=== PATIENT | female | born 1985 | race Caucasian/White ===

== ENCOUNTER 2016-03-16 16:20 | Outpatient (CLI) | payer MEDICAID | END 2016-03-16 16:21 | disposition home or self-care (01) | DX: R10.2 Pelvic and perineal pain (principal) ==

== ENCOUNTER 2016-04-03 11:49 | Outpatient (CLI) | payer MEDICAID ==
[2016-04-03] MEDS ORDERED: IOPAMIDOL-300 100 ML VIAL IVP ONE (13:23)
[2016-04-03] MEDS ORDERED: IOPAMIDOL-300 50 ML VIAL PO ONE (13:23)
== END 2016-04-03 11:50 | disposition home or self-care (01) ==
DX: R10.2 Pelvic and perineal pain (principal)
CPT/HCPCS: 74177; Q9967

== ENCOUNTER 2016-04-18 09:55 | Day surgery (SDC) | payer MEDICAID ==
[2016-04-18] MEDS ORDERED: LACTATED RINGERS 1,000 ML IV ONE ×3 (10:30→13:30)
[2016-04-18] MEDS ORDERED: LIDOCAINE 1%-EPI 1:100000 20 ML MDV SUBQ ONE ×2 (11:08)
[2016-04-18] MEDS ORDERED: MIDAZOLAM 2 MG/2 ML VIAL IVP ONE (11:10)
[2016-04-18] MEDS ORDERED: PROPOFOL 200 MG/20 ML VIAL IVP ONE (11:10)
[2016-04-18] MEDS ORDERED: DEXAMETHASONE 4 MG/ML VIAL IVP ONE (11:10)
[2016-04-18] MEDS ORDERED: ROCURONIUM 50 MG/5 ML VIAL IVP ONE (11:10)
[2016-04-18] MEDS ORDERED: SUCCINYLCHOLINE 200 MG/10 ML VIAL IVP ONE (11:10)
[2016-04-18] MEDS ORDERED: ONDANSETRON 4 MG/2 ML VIAL IVP ONE (11:10)
[2016-04-18] MEDS ORDERED: GLYCOPYRROLATE 1 MG/5 ML VIAL IVP ONE (11:10)
[2016-04-18] MEDS ORDERED: LIDOCAINE-MPF 2% 5 ML VIAL IM ONE (11:10)
[2016-04-18] MEDS ORDERED: NEOSTIGMINE 1 MG/1 ML 10 ML MDV IVP ONE (11:10)
[2016-04-18] MEDS ORDERED: fentaNYL 100 MCG/2 ML VIAL IVP ONE (11:10)
[2016-04-18] MEDS ORDERED: fentaNYL 100 MCG/2 ML VIAL ONE ×2 (11:59→12:00)
[2016-04-18] MEDS ORDERED: HYDROcod/ACETAM 5/325 MG TABLET ONE ×2 (12:35→12:55)
== END 2016-04-18 09:56 | disposition home or self-care (01) ==
PROC: 0WJJ4ZZ Inspection of Pelvic Cavity, Percutaneous Endoscopic Approach (ICD-10-PCS; principal; 2016-04-18 10:45)
DX: R10.2 Pelvic and perineal pain (principal); R06.83 Snoring; J45.990 Exercise induced bronchospasm; K21.9 Gastro-esophageal reflux disease without esophagitis; Z87.891 Personal history of nicotine dependence
CPT/HCPCS: 36415; 49320; 80053; 81025; A9270; J7120

== ENCOUNTER 2016-05-28 13:29 | Emergency (ER) | payer MEDICAID ==
[2016-05-28] MEDS ORDERED: SODIUM CHLORIDE 0.9% 1,000 ML IV ONE ×2 (14:21→14:32)
[2016-05-28] MEDS ORDERED: HALOPERIDOL 5 MG/ML VIAL IVP STA (14:28)
[2016-05-28] MEDS ORDERED: ONDANSETRON 4 MG/2 ML VIAL IVP STA ×2 (14:29→15:42)
[2016-05-28] MEDS ORDERED: HALOPERIDOL 5 MG/ML VIAL ONE (14:31)
[2016-05-28] MEDS ORDERED: ONDANSETRON 4 MG/2 ML VIAL ONE ×2 (14:31→15:44)
[2016-05-28] MEDS ORDERED: MAG HYDROX/AL HYDROX/SIMETH 30 ML UDC PO STA (15:23)
[2016-05-28] MEDS ORDERED: LIDOCAINE VISCOUS 2% 15 ML UDC MM STA (15:23)
[2016-05-28] MEDS ORDERED: LIDOCAINE VISCOUS 2% 15 ML UDC MM ONE (15:44)
[2016-05-28] MEDS ORDERED: MAG HYDROX/AL HYDROX/SIMETH 30 ML UDC ONE (15:44)
== END 2016-05-28 16:12 | disposition home or self-care (01) ==
DX: R10.84 Generalized abdominal pain (principal); R11.2 Nausea with vomiting, unspecified; F12.10 Cannabis abuse, uncomplicated; R03.0 Elevated blood-pressure reading, without diagnosis of hypertension; Z87.891 Personal history of nicotine dependence
CPT/HCPCS: 36415; 80053; 81001; 81025; 83690; 85025; 87086; 96361; 96374; 96375; 96376; 99283; 99284; A9270

== ENCOUNTER 2016-07-20 18:13 | Emergency (ER) | payer MEDICAID ==
[2016-07-20 18:43] LABS: BILIRUBIN,URINE NEGATIVE (NEGATIVE)
[2016-07-20 18:50] LABS: UA CHARGE (STRIP ONLY) YES; UR CULTURE IF IND NOT INDICATED
[2016-07-20 18:51] LABS: HCG UR QUAL NEGATIVE
[2016-07-20] MEDS ORDERED: MORPHINE 2 MG/ML SYRINGE IVP STA ×3 (18:59→22:35)
[2016-07-20] MEDS ORDERED: SODIUM CHLORIDE 0.9% 1,000 ML IV ONE (18:59)
[2016-07-20] MEDS ORDERED: ONDANSETRON 4 MG/2 ML VIAL IVP STA ×2 (18:59→21:48)
--- NOTE | 2016-07-20 19:01 | ED Physician Documentation ---
PD HPI ABD PAIN - Stated complaint Stated Complaint: RT SIDE PX - Chief complaint Chief Complaint: Abd Pain - History obtained from History obtained from: Patient - History of Present Illness Timing - onset: Other (While with a now 1-year-old she had a lot of issues with esophageal spasm. Now for the last 6 months she's had ongoing daily right upper quadrant pain without significant relationship to eating. There is associated nausea but rarely vomiting. She had an exploratory laparoscopy earlier this year without relevant findings. Pain is daily, right upper quadrant radiating slightly to the back. No weight loss. No changes in bowel movements. She is in pain management for abdominal pain but does not take narcotics. Plan for upper endoscopy in the near future, it is been several years.) Review of Systems Ten Systems: 10 systems reviewed and negative Constitutional: denies: Fever, Chills, Fatigue, Weight Loss Nose: reports: Reviewed and negative GI: reports: Abdominal Pain, Nausea. 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 : None HEENT: None Psych: Anxiety, Post traumatic stress disorder Musculoskeletal: Scoliosis Derm: None - Past Surgical History Past Surgical History: Yes Ortho: Shoulder arthroplasty Cardiovascular: Other - Present Medications Home Medications: Ambulatory Orders Medication Instructions Recorded Confirmed Omeprazole 20 mg PO DAILY 01/09/16 07/20/16 - Allergies Allergies/Adverse Reactions: Allergies Allergy/AdvReac Type Severity Reaction Status Date / Time amoxicillin [Amoxicillin] Allergy Severe throat Verified 09/12/15 09:05 swells Penicillins Allergy Severe Hives Verified 09/12/15 09:05 pertussis vaccine,adsorbed Allergy Severe seizures Verified 09/12/15 09:05 [Pertussis Vaccine,Adsorbed] hydromorphone HCl * Allergy Unknown Verified 09/12/15 09:05 [From Dilaudid] ciprofloxacin [From Cipro] AdvReac Intermediate Cramps Verified 09/12/15 09:05 ibuprofen AdvReac Intermediate Cramps Verified 09/12/15 09:05 acetaminophen AdvReac Mild Unknown Verified 09/12/15 09:05 oxycodone HCl * AdvReac Mild Nausea Verified 09/12/15 09:05 [From Percocet] diphtheria, pertussis, AdvReac Unknown Verified 04/18/16 10:27 tetanus vacc meperidine HCl * AdvReac Itching Verified 09/12/15 09:05 [From Demerol] - Social History Does the pt smoke?: No Smoking Status: Former smoker Does the pt drink ETOH?: No Does the pt have substance abuse?: No - Family History Family history: reports: Non contributory - Immunizations Immunizations are current?: Yes - POLST Patient has POLST: No PD ED PE NORMAL - Vitals Vital signs reviewed: Yes - General General: Alert and oriented X 3, No acute distress, Other (tearful) - HEENT HEENT: PERRL, EOMI - Neck Neck: Supple, no meningeal sign, No bony TTP - Cardiac Cardiac: RRR, No murmur - Respiratory Respiratory: No respiratory distress, Clear bilaterally - Abdomen Abdomen: Other (Soft with mild right midabdominal tenderness, it is above McBurney's point but well below the gallbladder. No surgical signs.) - Neuro Neuro: Alert and oriented X 3, Normal speech - Psych Psych: Normal mood, Normal affect Results - Vitals Vitals: Vital Signs - 24 hr 07/20/16 07/20/16 07/20/16 18:19 20:38 22:16 Temperature 37.0 C Heart Rate 87 16 L 65 Respiratory 18 18 18 Rate Blood Pressure 114/75 115/80 113/80 O2 Saturation 98 98 100 Oxygen O2 Source Room air - Labs Labs: Laboratory Tests 07/20/16 07/20/16 07/20/16 18:25 18:25 18:35 WBC 8.9 RBC 4.18 L Hgb 12.4 Hct 36.7 L MCV 87.7 MCH 29.6 MCHC 33.7 RDW 11.9 L Plt Count 327 MPV 8.6 Neut # 5.0 Lymph # 3.0 [place] # 0.6 Eos # 0.2 Baso # 0.1 Absolute Nucleated RBC 0.01 Nucleated RBCs 0.1 Sodium Potassium Chloride Carbon Dioxide Anion Gap BUN Creatinine Estimated GFR (MDRD) Glucose Calcium Total Bilirubin AST ALT Alkaline Phosphatase Total Protein Albumin Globulin Albumin/Globulin Ratio Lipase Urine Color YELLOW Urine Clarity CLEAR Urine pH 6.0 Ur Specific [place] 1.015 1.015 Urine Protein NEGATIVE Urine Glucose (UA) NEGATIVE Urine Ketones NEGATIVE Urine Occult Blood NEGATIVE Urine Nitrite NEGATIVE Urine Bilirubin NEGATIVE Urine Urobilinogen 0.2 (NORMAL) Ur Leukocyte Esterase NEGATIVE Ur Microscopic Review NOT INDICATED Urine Culture Comments NOT INDICATED Urine HCG, Qual NEGATIVE 07/20/16 18:35 WBC RBC Hgb Hct MCV MCH MCHC RDW Plt Count MPV Neut # Lymph # [place] # Eos # Baso # Absolute Nucleated RBC Nucleated RBCs Sodium 137 Potassium 3.7 Chloride 104 Carbon Dioxide 25 Anion Gap 8.0 BUN 12 Creatinine 0.8 Estimated GFR (MDRD) 84 L Glucose 95 Calcium 9.2 Total Bilirubin 0.5 AST 20 ALT 14 Alkaline Phosphatase 48 Total Protein 8.3 H Albumin 4.9 Globulin 3.4 Albumin/Globulin Ratio 1.4 Lipase 24 Urine Color Urine Clarity Urine pH Ur Specific [place] Urine Protein Urine Glucose (UA) Urine Ketones Urine Occult Blood Urine Nitrite Urine Bilirubin Urine Urobilinogen Ur Leukocyte Esterase Ur Microscopic Review Urine Culture Comments Urine HCG, Qual - Rads (name of study) Abd sono Radiology: Prelim report reviewed (Mild steatosis, otherwise grossly neg) PD MEDICAL DECISION MAKING - ED course ED course: Almost chronic new R mid abd pain in pt with prior chronic abd complaints. Exacerbation of same. Given timecourse, low suspicion for acute/surgical pathology. Improved stepwise with meds here. Departure - Departure Disposition: 01 Home, Self Care Clinical Impression: Abdominal pain Vomiting Qualifiers: Vomiting type: unspecified Vomiting Intractability: non-intractable Nausea presence: with nausea Qualified Code(s): R11.2 - Nausea with vomiting, unspecified Condition: Good Record reviewed to determine appropriate education?: Yes Instructions: ED Abdominal Pain Unkn Cause Comments: Call your doctor to arrange a follow up appointment. Make the next available appointment. In the interim return anytime if worse or if new symptoms develop. Discharge Date/Time: 07/20/16 22:59
[2016-07-20] MEDS ORDERED: MORPHINE 2 MG/ML SYRINGE ONE ×3 (19:02→22:44)
[2016-07-20] MEDS ORDERED: ONDANSETRON 4 MG/2 ML VIAL ONE ×2 (19:02→21:50)
[2016-07-20 19:08] LABS: BASOPHILS # (AUTO) 0.1 10^3/uL (0.0-0.1); BASOPHILS % (AUTO) 0.8 %; EOSINOPHILS # (AUTO) 0.2 10^3/uL (0.0-0.7); EOSINOPHILS % (AUTO) 1.7 %; HCT - HEMATOCRIT 36.7 % (37.0-47.0); HGB - HEMOGLOBIN 12.4 g/dL (12.0-16.0); LYMPHOCYTES % (AUTO) 33.8 %; MEAN CORPUSCULAR HEMOGLOBIN 29.6 pg (27.0-31.0); MEAN CORPUSCULAR HGB CONC 33.7 g/dL (32.0-36.0); MEAN CORPUSCULAR VOLUME 87.7 fL (81.0-99.0); MEAN PLATELET VOLUME 8.6 fL (7.9-10.8); MONOCYTES # (AUTO) 0.6 10^3/uL (0.0-1.0); MONOCYTES % (AUTO) 6.9 %; NEUTROPHILS % (AUTO) 56.8 %; NUCLEATED RED BLOOD CELLS AUTO 0.1 /100WBC; RED BLOOD COUNT 4.18 10^6/uL (4.20-5.40); RED CELL DISTRIBUTION WIDTH 11.9 % (12.0-15.0); UNCORRECTED WHITE BLOOD COUNT 8.9 x10^3/uL; WHITE BLOOD COUNT 8.9 x10^3/uL (4.8-10.8)
[2016-07-20 19:19] LABS: ALBUMIN/GLOBULIN RATIO 1.4 (1.0-2.2); BILIRUBIN,TOTAL 0.5 mg/dL (0.2-1.0); CALCIUM 9.2 mg/dL (8.5-10.3); CREATININE 0.8 mg/dL (0.4-1.0); POTASSIUM 3.7 mmol/L (3.5-5.0); TOTAL PROTEIN 8.3 g/dL (6.7-8.2)
[2016-07-20 22:17] VITALS: BP 113/80
[2016-07-20] MEDS ORDERED: HYDROcod/ACET 5/325 Prepack 6 PO STA (22:35)
[2016-07-20] MEDS ORDERED: HYDROcod/ACET 5/325 Prepack 6 PO ONE (22:45)
--- NOTE | 2016-07-20 23:11 | Ultrasound Preliminary Report ---
Exam: US Abdomen Limited IMPRESSION: 1. No cholelithiasis, cholecystitis, or biliary dilation. 2. Mild hepatic steatosis. 3. Appendix is not visualized. No secondary evidence of appendicitis. Likelihood of appendicitis is f elt to be low. [facility] SITE ID: [id number]
--- NOTE | 2016-07-20 23:14 | Ultrasound Report ---
EXAM: ABDOMEN ULTRASOUND LIMITED, RUQ APPENDIX ULTRASOUND EXAM DATE: 07/20/2016 10:45 PM. CLINICAL HISTORY: Right-sided abdominal pain COMPARISON: CT 04/03/2016 TECHNIQUE: Real-time scanning was performed with static images obtained. FINDINGS: Liver: Mild increased echogenicity. No suspicious focal lesion. Liver measures 14.6 cm in length. Portal Vein: Patent with hepatopetal flow. Gallbladder: No stones, wall thickening, or sonographic Noguera's sign. Biliary System: CBD measures 5.7 mm. No intrahepatic or extrahepatic ductal dilatation. Pancreas: Normal appearing head and body. Other portions are obscured by overlying structures. Right Kidney: Visualized portions of the right kidney are without significant abnormality. Right kid deion measures 10.7 cm in length. Other: No significant sonographic abnormality within the right lower quadrant, over the patient repor valorie area of pain.-[place] is not seen. There is no fluid. No pathologic lymphadenopathy. Patient tolerat ed moderate compression without pain. IMPRESSION: 1. No cholelithiasis, cholecystitis, or biliary dilation. 2. Mild hepatic steatosis. 3. Appendix is not visualized. No secondary evidence of appendicitis. Likelihood of appendicitis is f elt to be low. [facility] Referring Provider Line: [phone] SITE ID: [id number]
== END 2016-07-20 22:59 | disposition home or self-care (01) ==
LOC: ED 18:13
DX: R10.9 Unspecified abdominal pain (principal); R11.2 Nausea with vomiting, unspecified; Z87.891 Personal history of nicotine dependence
CPT/HCPCS: 36415; 76705; 80053; 81001; 81003; 81025; 83690; 85025; 87086; 96374; 96375; 96376; 99284

== ENCOUNTER 2016-11-14 16:22 | Emergency (ER) | payer MEDICAID ==
[2016-11-14 17:22] LABS: BILIRUBIN,URINE NEGATIVE (NEGATIVE); PH,URINE 6.5 PH (5.0-7.5)
[2016-11-14 17:24] LABS: HCG UR QUAL POSITIVE; UA CHARGE (STRIP ONLY) YES; UR CULTURE IF IND NOT INDICATED
[2016-11-14] MEDS: HYDROcod/ACETAM 5/325 MG TABLET PO STA (17:36)
[2016-11-14] MEDS: ONDANSETRON ODT 4 MG TABLET TL STA (17:37)
[2016-11-14] MEDS ORDERED: ONDANSETRON ODT 4 MG TABLET ONE (17:40)
[2016-11-14] MEDS ORDERED: HYDROcod/ACETAM 5/325 MG TABLET ONE (17:40)
[2016-11-14 17:51] LABS: BASOPHILS % (AUTO) 0.6 %; EOSINOPHILS # (AUTO) 0.2 10^3/uL (0.0-0.7); HCT - HEMATOCRIT 34.7 % (37.0-47.0); HGB - HEMOGLOBIN 11.8 g/dL (12.0-16.0); LYMPHOCYTES # (AUTO) 3.1 10^3/uL (1.5-3.5); LYMPHOCYTES % (AUTO) 37.3 %; MEAN CORPUSCULAR HEMOGLOBIN 29.7 pg (27.0-31.0); MEAN CORPUSCULAR VOLUME 87.1 fL (81.0-99.0); MEAN PLATELET VOLUME 8.2 fL (7.9-10.8); MONOCYTES # (AUTO) 0.6 10^3/uL (0.0-1.0); MONOCYTES % (AUTO) 7.7 %; NEUTROPHILS # (AUTO) 4.3 10^3/uL (1.5-6.6); NEUTROPHILS % (AUTO) 52.4 %; RED BLOOD COUNT 3.98 10^6/uL (4.20-5.40); RED CELL DISTRIBUTION WIDTH 12.2 % (12.0-15.0); UNCORRECTED WHITE BLOOD COUNT 8.2 x10^3/uL; WHITE BLOOD COUNT 8.2 x10^3/uL (4.8-10.8)
--- NOTE | 2016-11-14 19:09 | Ultrasound Preliminary Report ---
Exam: US OB First Trimester IMPRESSION: There is an intrauterine gestational sac. It demonstrates an irregular contour. Mean diameter is 0.9 cm. No embryo, yolk sac, or heart tones are seen. Findings are suspicious for demise. Per current guidelines, interval ultrasound in 7-10 days is recommended for confirmation as indicated. [facility] SITE ID: [id number]
--- NOTE | 2016-11-14 19:11 | Ultrasound Report ---
EXAM: FIRST TRIMESTER OBSTETRIC ULTRASOUND (Less than 11 weeks) EXAM DATE: 11/14/2016 06:38 PM. CLINICAL HISTORY: Vaginal bleeding. LMP: Unknown. COMPARISONS: None. TECHNIQUE: Transabdominal and transvaginal ultrasound examination with static image documentation. ASSESSMENT: Gestational Sac: Single intrauterine. Mean gestational sac diameter: 9 mm = 5 weeks 5 days. Irregula r contour. Embryo: Not seen. Cardiac activity: Absent. Yolk sac: Absent. Amniotic fluid: Not accurately assessed at this gestational age. Early placenta: Not visible at this gestational age. Other: No perigestational fluid collection demonstrated. MATERNAL STRUCTURES: Uterus: Anteverted. Unremarkable. Cervix: Closed. Right Ovary/Adnexa: There is a right ovarian cyst. Normal vascularity.. The ovary measures 4.7 x 3.5 x 3.0 cm, volume 26 cc. Left Ovary/Adnexa: Not seen. Free Fluid: None. Other: None. IMPRESSION: There is an intrauterine gestational sac. It demonstrates an irregular contour. Mean diameter is 0.9 cm. No embryo, yolk sac, or heart tones are seen. Findings are suspicious for demise. Per current guidelines, interval ultrasound in 7-10 days is recommended for confirmation as indicated. [facility] Referring Provider Line: [phone] SITE ID: [id number]
[2016-11-14 19:19] VITALS: BP 97/57
--- NOTE | 2016-11-14 19:22 | ED Physician Documentation ---
PD HPI FEMALE - Stated complaint Stated Complaint: FEMALE /BLEEDING - Chief complaint Chief Complaint: Abd Pain - History obtained from History obtained from: Patient - History of Present Illness Timing - onset: How many days ago (2-3 days ago with mild spotting blood, presumed early menses as went off DepoProvera in June (would have been renewal date). Had not had period as yet. Bleeding and cramps increased significantly today, using 2-3 tampons since noon so far. Passing small clots. No tissue.) Timing - duration: Days Timing - details: Gradual onset, Still present (worse the past few hours) Associated symptoms: Pelvic pain, Vaginal bleeding. No: Fever, Back pain, Vaginal discharge Contributing factors: No: control (currently not on any; seeing Dr. 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 Sethi earlier in the year to eval for endometriosis but none found.) Review of Systems Constitutional: denies: Fever, Chills GI: reports: Abdominal Pain, Nausea. denies: Vomiting, Diarrhea : denies: Dysuria, Frequency, Discharge Neurologic: reports: Generalized weakness. 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 : None HEENT: None Psych: Anxiety, Post traumatic stress disorder Musculoskeletal: Scoliosis Derm: None - Past Surgical History Past Surgical History: Yes Ortho: Shoulder arthroplasty Cardiovascular: Other - Present Medications Home Medications: Ambulatory Orders Medication Instructions Recorded Confirmed HYDROcod/ACETAM 5/325 [[place] 5/325] 1 tab PO Q6H PRN #15 tablet 11/14/16 Ondansetron Odt [Zofran] 4 mg TL Q6H PRN #15 tablet 11/14/16 - Allergies Allergies/Adverse Reactions: Allergies Allergy/AdvReac Type Severity Reaction Status Date / Time amoxicillin [Amoxicillin] Allergy Severe throat Verified 09/12/15 09:05 swells Penicillins Allergy Severe Hives Verified 09/12/15 09:05 pertussis vaccine,adsorbed Allergy Severe seizures Verified 09/12/15 09:05 [Pertussis Vaccine,Adsorbed] hydromorphone HCl * Allergy Unknown Verified 09/12/15 09:05 [From Dilaudid] ciprofloxacin [From Cipro] AdvReac Intermediate Cramps Verified 09/12/15 09:05 ibuprofen AdvReac Intermediate Cramps Verified 09/12/15 09:05 acetaminophen AdvReac Mild Unknown Verified 09/12/15 09:05 oxycodone HCl * AdvReac Mild Nausea Verified 09/12/15 09:05 [From Percocet] diphtheria, pertussis, AdvReac Unknown Verified 04/18/16 10:27 tetanus vacc meperidine HCl * AdvReac Itching Verified 09/12/15 09:05 [From Demerol] - Social History Does the pt smoke?: No Smoking Status: Never smoker Does the pt drink ETOH?: No Does the pt have substance abuse?: No - Immunizations Immunizations are current?: Yes - POLST Patient has POLST: No PD ED PE NORMAL - Vitals Vital signs reviewed: Yes - General General: Alert and oriented X 3, Well developed/nourished, Other (appears uncomfortable) - Neck Neck: Supple, no meningeal sign, No adenopathy - Cardiac Cardiac: RRR, No murmur - Respiratory Respiratory: Clear bilaterally - Abdomen Abdomen: Normal bowel sounds, Soft, Non distended, No organomegaly, Other (some suprapubic tenderness) - Female Female : Deferred - Back Back: No CVA TTP - Derm Derm: Normal color, Warm and dry - Neuro Neuro: Alert and oriented X 3, No motor deficit, Normal speech Results - Vitals Vitals: Oxygen O2 Source Room air - Labs Labs: Laboratory Tests 11/14/16 11/14/16 11/14/16 16:50 17:46 17:46 WBC 8.2 RBC 3.98 L Hgb 11.8 L Hct 34.7 L MCV 87.1 MCH 29.7 MCHC 34.0 RDW 12.2 Plt Count 305 MPV 8.2 Neut # 4.3 Lymph # 3.1 [place] # 0.6 Eos # 0.2 Baso # 0.0 Absolute Nucleated RBC 0.00 Nucleated RBC % 0.0 HCG, Quant 11479.00 Urine Color YELLOW Urine Clarity CLEAR Urine pH 6.5 Ur Specific [place] <=1.005 Urine Protein NEGATIVE Urine Glucose (UA) NEGATIVE Urine Ketones NEGATIVE Urine Occult Blood NEGATIVE Urine Nitrite NEGATIVE Urine Bilirubin NEGATIVE Urine Urobilinogen 0.2 (NORMAL) Ur Leukocyte Esterase NEGATIVE Ur Microscopic Review NOT INDICATED Urine Culture Comments NOT INDICATED Urine HCG, Qual POSITIVE - Rads (name of study) OB U/S Radiology: Prelim report reviewed (IUP found with GS size c/w 5.5 weeks. No pelvic free fluid. Ovaries okay. ) PD MEDICAL DECISION MAKING - ED course Complexity details: considered differential (threatened miscarriage with IUP noted at 5.5 weeks. Quant is appropriate range for dates. Will need to get repeat quant in 2-[address] Arvizu.), d/w patient, d/w image consultant (Dr. Sethi, who asks patient to be seen in office in 2 days. ) Departure - Departure Disposition: 01 Home, Self Care Clinical Impression: Vaginal bleeding before 22 weeks gestation, Threatened miscarriage in early Condition: Stable Record reviewed to determine appropriate education?: Yes Instructions: ED Miscarriage Poss Follow-Up: Rose Sethi, [Provider Admit Priv/Credential] - Prescriptions: HYDROcod/ACETAM 5/325 [[place] 5/325] 1 tab PO Q6H PRN #15 tablet PRN Reason: Pain Ondansetron Odt [Zofran] 4 mg TL Q6H PRN #15 tablet PRN Reason: Nausea / Vomiting Comments: Drink lots of fluids. Tylenol if needed for pains. Add hydrocodone as needed for pains and cramps. Ondansetron for nausea. Follow-up with Dr. Downs's office on Saturday. She said she will be in the office on Saturday but 1 of her partners will see you. They will want to repeat the ultrasound or possibly the blood test to see how you are doing. Return sooner if significant bleeding persists, fever, lightheaded, other concerns. Discharge Date/Time: 11/14/16 19:36
== END 2016-11-14 19:36 | disposition home or self-care (01) ==
LOC: ED 16:22
DX: O20.0 Threatened abortion (principal); Z3A.22 22 weeks gestation of pregnancy
CPT/HCPCS: 36415; 76801; 76817; 81001; 81003; 81025; 84702; 85025; 87086; 99283; 99284

== ENCOUNTER 2016-11-21 13:04 | Outpatient (CLI) | payer MEDICAID | END 2016-11-21 13:05 | disposition critical access hospital (66) | LOC: EMS 13:04 | PROVIDERS: ATTEND Surgery | DX: R10.9 Unspecified abdominal pain (principal); R11.2 Nausea with vomiting, unspecified | CPT/HCPCS: A0425; A0429 ==

== ENCOUNTER 2016-11-21 13:24 | Emergency (ER) | payer MEDICAID ==
[2016-11-21] MEDS ORDERED: SODIUM CHLORIDE 0.9% 1,000 ML IV ONE (13:59)
[2016-11-21] MEDS ORDERED: ONDANSETRON 4 MG/2 ML VIAL IVP STA (13:59)
--- NOTE | 2016-11-21 14:03 | ED Physician Documentation ---
PD HPI ABD PAIN - Stated complaint Stated Complaint: ABD PX - Chief complaint Chief Complaint: Abd Pain - History obtained from History obtained from: Patient - History of Present Illness Timing - onset: Enter time (0800), Today Timing - duration: Hours Timing - details: Abrupt onset, Still present Quality: Sharp, Pain Location: Epigastric, LUQ Improved by: Laying still Worsened by: Moving, Position, Palpation Associated symptoms: Nausea, Vomiting Similar symptoms before: Diagnosis (hypertemisis gravidarium/cannabis and gastritis.) Recently seen: Emergency Dept - Additional information Additional information: 31-year-old female came into the emergency department with Pelvic cramping and vaginal bleeding was found to be . She is proximal in 5-1/2 weeks and has now developed acute vomiting. This morning she woke at about 8 :00 with pain in the epigastrium. She has had this previously with gastritis. She has also had issues with hyperemesis gravidarum and with hyperemesis related to cannabis use. She does indicate that she continues to use cannabis and she has been in the bathtub today as well. She indicates that she was not told previously that cannabis was an issue. I suspect she has not heard this as I believe I have had this conversation with her. Review of Systems Constitutional: denies: Fever Eyes: denies: Decreased vision Ears: denies: Ear pain Nose: denies: Congestion Throat: denies: Sore throat Cardiac: denies: Chest pain / pressure, Palpitations Respiratory: denies: Dyspnea, Cough GI: reports: Abdominal Pain, Nausea, Vomiting : denies: Dysuria, Frequency Skin: denies: Rash Musculoskeletal: denies: Neck pain, Back pain, Extremity pain Neurologic: denies: Generalized weakness, Focal weakness PD PAST MEDICAL HISTORY - Past Medical History Past Medical History: Yes Cardiovascular: Murmur Respiratory: Asthma Neuro: None Endocrine/Autoimmune: None GI: Hemorrhoids, Other 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 : None HEENT: None Psych: Anxiety, Post traumatic stress disorder Musculoskeletal: Scoliosis Derm: None - Past Surgical History Past Surgical History: Yes Ortho: Shoulder arthroplasty Cardiovascular: Other - Present Medications Home Medications: Ambulatory Orders Medication Instructions Recorded Confirmed HYDROcod/ACETAM 5/325 [[place] 5/325] 1 tab PO Q6H PRN #15 tablet 11/14/16 Ondansetron Odt [Zofran] 4 mg TL Q6H PRN #15 tablet 11/14/16 11/21/16 - Allergies Allergies/Adverse Reactions: Allergies Allergy/AdvReac Type Severity Reaction Status Date / Time amoxicillin [Amoxicillin] Allergy Severe throat Verified 09/12/15 09:05 swells Penicillins Allergy Severe Hives Verified 09/12/15 09:05 pertussis vaccine,adsorbed Allergy Severe seizures Verified 09/12/15 09:05 [Pertussis Vaccine,Adsorbed] hydromorphone HCl * Allergy Unknown Verified 09/12/15 09:05 [From Dilaudid] ciprofloxacin [From Cipro] AdvReac Intermediate Cramps Verified 09/12/15 09:05 ibuprofen AdvReac Intermediate Cramps Verified 09/12/15 09:05 acetaminophen AdvReac Mild Unknown Verified 09/12/15 09:05 oxycodone HCl * AdvReac Mild Nausea Verified 09/12/15 09:05 [From Percocet] diphtheria, pertussis, AdvReac Unknown Verified 04/18/16 10:27 tetanus vacc meperidine HCl * AdvReac Itching Verified 09/12/15 09:05 [From Demerol] - Social History Does the pt smoke?: No Smoking Status: Never smoker Does the pt drink ETOH?: No Does the pt have substance abuse?: No - Immunizations Immunizations are current?: Yes - POLST Patient has POLST: No PD ED PE NORMAL - Vitals Vital signs reviewed: Yes - General General: Alert and oriented X 3, Well developed/nourished, Other (Pale appearing 31-year-old female who is moaning in pain and rocking back and forth in her bed. She is mostly in the position and reluctant to straighten out for examination.) - HEENT HEENT: Atraumatic, PERRL - Neck Neck: Supple, no meningeal sign - Cardiac Cardiac: RRR, No murmur - Respiratory Respiratory: No respiratory distress, Clear bilaterally - Abdomen Abdomen: Soft, Other (Epigastric tenderness is specific and reproducible.) - Back Back: No CVA TTP, No spinal TTP - Derm Derm: Normal color, Warm and dry - Extremities Extremities: No deformity, No edema - Neuro Neuro: No motor deficit, No sensory deficit - Psych Psych: Normal mood, Normal affect Results - Vitals Vitals: Vital Signs - 24 hr 11/21/16 11/21/16 11/21/16 13:25 14:34 16:15 Temperature 36.1 C L 36.9 C 35.7 C L Heart Rate 70 86 71 Respiratory 18 18 18 Rate Blood Pressure 125/75 106/55 L 121/73 O2 Saturation 97 100 97 Oxygen O2 Source Room air - Labs Labs: Laboratory Tests 11/21/16 11/21/16 11/21/16 13:59 14:15 16:20 WBC 10.0 RBC 3.80 L Hgb 11.3 L Hct 32.6 L MCV 86.0 MCH 29.7 MCHC 34.6 RDW 12.4 Plt Count 302 MPV 8.2 Neut # 8.8 H Lymph # 0.9 L [place] # 0.2 Eos # 0.0 Baso # 0.1 Absolute Nucleated RBC 0.00 Nucleated RBC % 0.0 Sodium 139 Potassium 3.3 L Chloride 104 Carbon Dioxide 20 L Anion Gap 15.0 H BUN 9 Creatinine 0.8 Estimated GFR (MDRD) 83 L Glucose 151 H Calcium 9.6 Total Bilirubin 0.6 AST 20 ALT 15 Alkaline Phosphatase 43 Total Protein 7.7 Albumin 4.8 Globulin 2.9 Albumin/Globulin Ratio 1.7 Lipase 25 Urine Color YELLOW Urine Clarity CLEAR Urine pH 6.5 Ur Specific [place] 1.025 Urine Protein TRACE Urine Glucose (UA) NEGATIVE Urine Ketones 40 H Urine Occult Blood SMALL H Urine Nitrite NEGATIVE Urine Bilirubin NEGATIVE Urine Urobilinogen 0.2 (NORMAL) Ur Leukocyte Esterase NEGATIVE Urine RBC 6-10 H Urine WBC 0-3 Ur Squamous Epith Cells MOD Squamous H Urine Bacteria Few Urine Mucus Moderate Strands Ur Microscopic Review INDICATED Urine Culture Comments NOT INDICATED Procedures - IVC sono (time) 1350 Bedside IVC sono: IVC measures (cm) (1.42), IVC collapsed c insp (cm) (complete) , Dehydration (mild) PD MEDICAL DECISION MAKING - ED course Complexity details: reviewed old records, reviewed results, re-evaluated patient , considered differential, d/w patient ED course: 31-year-old female with a 6 hour history of abdominal pain and vomiting appears uncomfortable on arrival to the emergency department she appears pale is panting and moaning. She is nauseous and vomiting. On interrogation of the inferior vena cava the patient is mildly dehydrated consistent with 6 hours of vomiting. She is definitely nauseous and I suspect cannabis hyperemesis as well as the effectiveness as she has had these symptoms previously with . She indicates she continues to use cannabis. Here in the emergency department an IV is begun she is given intravenous Zofran and saline and a GI cocktail was administered. She does get relief with the GI cocktail. She has further nausea and she is given doxalamine and pyridoxine. Departure - Departure Disposition: 01 Home, Self Care Clinical Impression: Hyperemesis gravidarum Gastritis Qualifiers: Gastritis type: unspecified gastritis Chronicity: acute Gastritis bleeding: without bleeding Qualified Code(s): K29.00 - Acute gastritis without bleeding Condition: Stable Instructions: ED Preg Morning Sickness, ED PUD Vs Gastritis Follow-Up: Myaela Gallardo ARNP [Primary Care Provider] -
[2016-11-21] MEDS ORDERED: MAG HYDROX/AL HYDROX/SIMETH 30 ML UDC PO STA (14:08)
[2016-11-21] MEDS ORDERED: LIDOCAINE VISCOUS 2% 15 ML UDC MM STA (14:08)
[2016-11-21 14:17] LABS: BASOPHILS # (AUTO) 0.1 10^3/uL (0.0-0.1); BASOPHILS % (AUTO) 0.5 %; EOSINOPHILS % (AUTO) 0.2 %; HCT - HEMATOCRIT 32.6 % (37.0-47.0); HGB - HEMOGLOBIN 11.3 g/dL (12.0-16.0); LYMPHOCYTES # (AUTO) 0.9 10^3/uL (1.5-3.5); LYMPHOCYTES % (AUTO) 8.9 %; MEAN CORPUSCULAR HEMOGLOBIN 29.7 pg (27.0-31.0); MEAN CORPUSCULAR HGB CONC 34.6 g/dL (32.0-36.0); MEAN PLATELET VOLUME 8.2 fL (7.9-10.8); MONOCYTES # (AUTO) 0.2 10^3/uL (0.0-1.0); MONOCYTES % (AUTO) 2.4 %; NEUTROPHILS # (AUTO) 8.8 10^3/uL (1.5-6.6); RED CELL DISTRIBUTION WIDTH 12.4 % (12.0-15.0)
[2016-11-21] MEDS ORDERED: ONDANSETRON 4 MG/2 ML VIAL ONE (14:29)
[2016-11-21 14:32] LABS: ALBUMIN/GLOBULIN RATIO 1.7 (1.0-2.2); BILIRUBIN,TOTAL 0.6 mg/dL (0.2-1.0); CALCIUM 9.6 mg/dL (8.5-10.3); CREATININE 0.8 mg/dL (0.4-1.0); POTASSIUM 3.3 mmol/L (3.5-5.0); TOTAL PROTEIN 7.7 g/dL (6.7-8.2)
[2016-11-21] MEDS ORDERED: LIDOCAINE VISCOUS 2% 15 ML UDC MM ONE (14:39)
[2016-11-21] MEDS ORDERED: MAG HYDROX/AL HYDROX/SIMETH 30 ML UDC ONE (14:39)
[2016-11-21] MEDS ORDERED: DOXYLAMINE 25 MG TABLET PO STA (16:10)
[2016-11-21] MEDS ORDERED: PYRIDOXINE 100 MG TABLET PO STA (16:11)
[2016-11-21 16:30] LABS: BILIRUBIN,URINE NEGATIVE (NEGATIVE); PH,URINE 6.5 PH (5.0-7.5)
[2016-11-21 16:31] LABS: UA w/ MICROSCOPIC CHARGE YES
[2016-11-21 16:43] LABS: UR CULTURE IF IND NOT INDICATED; WBC,URINE 0-3 /HPF (0-5)
[2016-11-21] MEDS ORDERED: PROMETHAZINE INJ 25 MG in SODIUM CHLORIDE 0.9% 50 ML IV STA (16:52)
[2016-11-21] MEDS ORDERED: PROMETHAZINE 25 MG/1 ML VIAL ONE (17:11)
[2016-11-21 18:56] VITALS: BP 106/55
== END 2016-11-21 19:01 | disposition home or self-care (01) ==
LOC: EDUNIT# → ED 13:24
DX: O21.0 Mild hyperemesis gravidarum (principal); O99.611 Diseases of the digestive system complicating pregnancy, first trimester; K29.00 Acute gastritis without bleeding; O99.511 Diseases of the respiratory system complicating pregnancy, first trimester; J45.909 Unspecified asthma, uncomplicated; Z3A.01 Less than 8 weeks gestation of pregnancy
CPT/HCPCS: 36415; 80053; 81001; 83690; 85025; 96361; 96365; 96375; 99284; A9270; J7040; 81003; 87086

== ENCOUNTER 2016-11-24 21:08 | Outpatient (CLI) | payer MEDICAID | END 2016-11-24 21:09 | disposition critical access hospital (66) | LOC: EMS 21:08 | PROVIDERS: ATTEND Surgery | DX: O26.891 Other specified pregnancy related conditions, first trimester (principal); O21.9 Vomiting of pregnancy, unspecified | CPT/HCPCS: A0425; A0427 ==

== ENCOUNTER 2016-11-24 21:28 | Observation (INO) | payer MEDICAID ==
[2016-11-24] MEDS ORDERED: MORPHINE 2 MG/ML SYRINGE IVP STA (21:32)
[2016-11-24] MEDS ORDERED: METOCLOPRAMIDE 10 MG/2 ML VIAL IVP STA (21:32)
[2016-11-24] MEDS ORDERED: SODIUM CHLORIDE 0.9% 1,000 ML IV ONE (21:33)
--- NOTE | 2016-11-24 21:42 | ED Physician Documentation ---
History of Present Illness - Stated complaint Stated Complaint: N/V/PREG - Chief complaint Chief Complaint: Abd Pain - History obtained from History obtained from: Patient, EMS - History of Present Illness Timing: How many days ago (3) Pain level max: 8 Pain level now: 8 Improved by: zofran, IVF, reglan Worsened by: eating - Additonal information Additional information: Patient is a 31-year-old female who is approximately 7 weeks who states that she has been vomiting for the past 3 days. Seen here earlier in the week for the same and states she did not receive any medications to go home with, so she is vomiting again. States she is cutting back on her marijuana use. States has had similar symptoms several times with prior pregnancies. Has OB appt on Saturday Review of Systems Ten Systems: 10 systems reviewed and negative Constitutional: denies: Fever, Chills Ears: denies: Ear pain Nose: denies: Rhinorrhea / runny nose, Congestion Throat: denies: Sore throat Cardiac: denies: Chest pain / pressure Respiratory: denies: Cough GI: reports: Abdominal Pain, Nausea, Vomiting. denies: Constipation, Diarrhea Skin: denies: Rash Musculoskeletal: denies: Neck pain, Back pain Neurologic: denies: Headache PD PAST MEDICAL HISTORY - Past Medical History Past Medical History: Yes Cardiovascular: Murmur Respiratory: Asthma Neuro: None Endocrine/Autoimmune: None GI: Hemorrhoids, Other [employer]: None : None HEENT: None Psych: Anxiety, Post traumatic stress disorder Musculoskeletal: Scoliosis Derm: None - Past Surgical History Past Surgical History: Yes Ortho: Shoulder arthroplasty Cardiovascular: Other - Present Medications Home Medications: Ambulatory Orders Medication Instructions Recorded Confirmed HYDROcod/ACETAM 5/325 [[place] 5/325] 1 tab PO Q6H PRN #15 tablet 11/14/16 Ondansetron Odt [Zofran] 4 mg TL Q6H PRN #15 tablet 11/14/16 11/21/16 - Allergies Allergies/Adverse Reactions: Allergies Allergy/AdvReac Type Severity Reaction Status Date / Time amoxicillin [Amoxicillin] Allergy Severe throat Verified 09/12/15 09:05 swells Penicillins Allergy Severe Hives Verified 09/12/15 09:05 pertussis vaccine,adsorbed Allergy Severe seizures Verified 09/12/15 09:05 [Pertussis Vaccine,Adsorbed] hydromorphone HCl * Allergy Unknown Verified 09/12/15 09:05 [From Dilaudid] ciprofloxacin [From Cipro] AdvReac Intermediate Cramps Verified 09/12/15 09:05 ibuprofen AdvReac Intermediate Cramps Verified 09/12/15 09:05 acetaminophen AdvReac Mild Unknown Verified 09/12/15 09:05 oxycodone HCl * AdvReac Mild Nausea Verified 09/12/15 09:05 [From Percocet] diphtheria, pertussis, AdvReac Unknown Verified 04/18/16 10:27 tetanus vacc meperidine HCl * AdvReac Itching Verified 09/12/15 09:05 [From Demerol] - Social History Does the pt smoke?: No Smoking Status: Never smoker Does the pt drink ETOH?: No Does the pt have substance abuse?: No - Immunizations Immunizations are current?: Yes - POLST Patient has POLST: No PD ED PE NORMAL - Vitals Vital signs reviewed: Yes - General General: Alert and oriented X 3, No acute distress, Well developed/nourished - HEENT HEENT: PERRL, Moist mucous membranes - Neck Neck: Supple, no meningeal sign - Cardiac Cardiac: RRR, Strong equal pulses - Respiratory Respiratory: No respiratory distress, Clear bilaterally - Abdomen Abdomen: Soft, Non distended, Other (TTP epigastric and LUQ without peritoneal signs. no RUQ tenderness. ) - Back Back: No CVA TTP, No spinal TTP - Derm Derm: Warm and dry, No rash - Extremities Extremities: No edema, No calf tenderness / cord - Neuro Neuro: Alert and oriented X 3 - Psych Psych: Normal mood, Normal affect Results - Vitals Vitals: Vital Signs - 24 hr 11/24/16 11/25/16 21:29 00:01 Temperature 36.9 C Heart Rate 74 78 Respiratory 18 18 Rate Blood Pressure 126/70 123/76 O2 Saturation 100 98 Oxygen O2 Source Room air - Labs Labs: Laboratory Tests 11/24/16 11/24/16 11/24/16 21:54 21:54 23:54 WBC 8.7 RBC 4.21 Hgb 12.5 Hct 36.6 L MCV 86.9 MCH 29.8 MCHC 34.3 RDW 12.1 Plt Count 341 MPV 8.3 Neut # 6.9 H Lymph # 1.2 L [place] # 0.5 Eos # 0.0 Baso # 0.0 Absolute Nucleated RBC 0.00 Nucleated RBC % 0.0 Sodium 135 Potassium 2.7 L Chloride 94 L Carbon Dioxide 27 Anion Gap 14.0 H BUN 17 Creatinine 0.9 Estimated GFR (MDRD) 73 L Glucose 143 H Calcium 9.2 Total Bilirubin 0.7 AST 55 H ALT 64 H Alkaline Phosphatase 44 Total Protein 7.8 Albumin 4.8 Globulin 3.0 Albumin/Globulin Ratio 1.6 Lipase 30 HCG, Quant Urine Color Urine Clarity Urine pH Ur Specific [place] Urine Protein Urine Glucose (UA) Urine Ketones Urine Occult Blood Urine Nitrite Urine Bilirubin Urine Urobilinogen Ur Leukocyte Esterase Ur Microscopic Review Urine Culture Comments Urine Opiates Screen POSITIVE H Ur Oxycodone Screen NEGATIVE Urine Methadone Screen NEGATIVE Ur Propoxyphene Screen NEGATIVE Ur Barbiturates Screen NEGATIVE Ur Tricyclics Screen NEGATIVE Ur Phencyclidine Scrn NEGATIVE Ur Amphetamine Screen NEGATIVE U Methamphetamines Scrn NEGATIVE U Benzodiazepines Scrn NEGATIVE Urine Cocaine Screen NEGATIVE U Cannabinoids Screen POSITIVE H 11/24/16 11/25/16 23:54 00:35 WBC RBC Hgb Hct MCV MCH MCHC RDW Plt Count MPV Neut # Lymph # [place] # Eos # Baso # Absolute Nucleated RBC Nucleated RBC % Sodium Potassium Chloride Carbon Dioxide Anion Gap BUN Creatinine Estimated GFR (MDRD) Glucose Calcium Total Bilirubin AST ALT Alkaline Phosphatase Total Protein Albumin Globulin Albumin/Globulin Ratio Lipase HCG, Quant 2595.00 Urine Color YELLOW Urine Clarity CLEAR Urine pH 7.0 Ur Specific [place] 1.020 Urine Protein TRACE Urine Glucose (UA) NEGATIVE Urine Ketones 15 H Urine Occult Blood NEGATIVE Urine Nitrite NEGATIVE Urine Bilirubin NEGATIVE Urine Urobilinogen 0.2 (NORMAL) Ur Leukocyte Esterase NEGATIVE Ur Microscopic Review NOT INDICATED Urine Culture Comments NOT INDICATED Urine Opiates Screen Ur Oxycodone Screen Urine Methadone Screen Ur Propoxyphene Screen Ur Barbiturates Screen Ur Tricyclics Screen Ur Phencyclidine Scrn Ur Amphetamine Screen U Methamphetamines Scrn U Benzodiazepines Scrn Urine Cocaine Screen U Cannabinoids Screen - Rads (name of study) OB US Radiology: Prelim report reviewed, EMP read contemporaneously, See rad report ( Single intrauterine embryo at EGA 6 weeks 2 days with LACEY 07/19/2017 based on crown-rump length, which is concordant with clinical dates. 2. Assigned dating is LACEY 07/19/2017 based on current US. 3. Embryo shows bradycardia at 62 BPM. Yolk sac is not seen. Sonographic follow-up is recommended. ) PD MEDICAL DECISION MAKING - ED course Complexity details: reviewed old records, reviewed results, re-evaluated patient , considered differential, d/w patient, d/w technical healthcare consultant ED course: Patient is a 31-year-old female who presents to the emergency department with continued vomiting. She is approximately 6-7 weeks . She was given Zofran, Reglan, Phenergan and did improve, but then began vomiting after her ultrasound. Her ultrasound does reveal a single intrauterine embryo with a heartbeat, despite a decreasing quant from her visit a week ago. Discussed the case with Dr. Sethi who will place the patient in observation for hyperemesis. Patient had another 300 mL's of emesis after her ultrasound. Patient was then given Benadryl and Compazine. Patient was also counseled to stop using marijuana as this may be contributing to her recurrent vomiting. Possible cannabinoid-induced hyperemesis. This document was made in part using voice recognition software. While efforts are made to proofread this document, sound alike and grammatical errors may occur. 0015 - D/w Dr. Sethi, recommends repeat quant and repeat US. Call back with results. 0240 - Dr. Sethi called back with results and will place in obs. Departure - Departure Disposition: ED Place in Observation Clinical Impression: Hypokalemia, Hyperemesis gravidarum Gastritis Qualifiers: Gastritis type: unspecified gastritis Chronicity: acute Gastritis bleeding: without bleeding Qualified Code(s): K29.00 - Acute gastritis without bleeding Vomiting Qualifiers: Vomiting type: unspecified Vomiting Intractability: non-intractable Nausea presence: with nausea Qualified Code(s): R11.2 - Nausea with vomiting, unspecified Qualifiers: Weeks of gestation: less than 8 weeks Qualified Code(s): Z3A.01 - Less than 8 weeks gestation of Condition: Stable
[2016-11-24] MEDS ORDERED: MORPHINE 2 MG/ML SYRINGE ONE (21:49)
[2016-11-24] MEDS ORDERED: METOCLOPRAMIDE 10 MG/2 ML VIAL ONE (21:49)
[2016-11-24] MEDS ORDERED: SODIUM CHLORIDE FLUSH 0.9% 10 ML SYRINGE IVP ONE (21:49)
[2016-11-24] MEDS ORDERED: MAGNESIUM SULFATE 2 GRAM 2 GM/50 ML BAG IV STA (21:56)
[2016-11-24] MEDS ORDERED: THIAMINE INJ 100 MG, FOLIC ACID INJ 1 MG in SODIUM CHLORIDE 0.9% 100ML 100 ML IV STA (21:56)
[2016-11-24] MEDS ORDERED: MULTIVITAMIN 10 ML in SODIUM CHLORIDE 0.9% 1,000 ML IV STA (21:56)
[2016-11-24 22:03] LABS: BASOPHILS % (AUTO) 0.4 %; EOSINOPHILS % (AUTO) 0.1 %; HCT - HEMATOCRIT 36.6 % (37.0-47.0); HGB - HEMOGLOBIN 12.5 g/dL (12.0-16.0); LYMPHOCYTES # (AUTO) 1.2 10^3/uL (1.5-3.5); LYMPHOCYTES % (AUTO) 14.1 %; MEAN CORPUSCULAR HEMOGLOBIN 29.8 pg (27.0-31.0); MEAN CORPUSCULAR HGB CONC 34.3 g/dL (32.0-36.0); MEAN CORPUSCULAR VOLUME 86.9 fL (81.0-99.0); MEAN PLATELET VOLUME 8.3 fL (7.9-10.8); MONOCYTES # (AUTO) 0.5 10^3/uL (0.0-1.0); NEUTROPHILS # (AUTO) 6.9 10^3/uL (1.5-6.6); NEUTROPHILS % (AUTO) 79.4 %; RED BLOOD COUNT 4.21 10^6/uL (4.20-5.40); RED CELL DISTRIBUTION WIDTH 12.1 % (12.0-15.0); UNCORRECTED WHITE BLOOD COUNT 8.7 x10^3/uL; WHITE BLOOD COUNT 8.7 x10^3/uL (4.8-10.8)
[2016-11-24] MEDS ORDERED: MAGNESIUM SULFATE 2 GRAM 2 GM/50 ML BAG IV ONE (22:05)
[2016-11-24] MEDS ORDERED: THIAMINE 100 MG/1 ML 2 ML MDV ONE (22:05)
[2016-11-24 22:16] LABS: ALBUMIN/GLOBULIN RATIO 1.6 (1.0-2.2); BILIRUBIN,TOTAL 0.7 mg/dL (0.2-1.0); CALCIUM 9.2 mg/dL (8.5-10.3); CREATININE 0.9 mg/dL (0.4-1.0); POTASSIUM 2.7 mmol/L (3.5-5.0); TOTAL PROTEIN 7.8 g/dL (6.7-8.2)
[2016-11-24] MEDS ORDERED: MAG HYDROX/AL HYDROX/SIMETH 30 ML UDC PO STA (22:43)
[2016-11-24] MEDS ORDERED: MAG HYDROX/AL HYDROX/SIMETH 30 ML UDC ONE (22:58)
[2016-11-24] MEDS ORDERED: ONDANSETRON 4 MG/2 ML VIAL IVP STA (23:47)
[2016-11-24 23:59] LABS: BILIRUBIN,URINE NEGATIVE (NEGATIVE); UA CHARGE (STRIP ONLY) YES; UR CULTURE IF IND NOT INDICATED
[2016-11-25] MEDS ORDERED: ONDANSETRON 4 MG/2 ML VIAL ONE (00:02)
[2016-11-25] MEDS ORDERED: SODIUM CHLORIDE 0.9% 1,000 ML IV ONE (00:18)
[2016-11-25] MEDS ORDERED: PROMETHAZINE INJ 12.5 MG in SODIUM CHLORIDE 0.9% 50 ML IV STA (00:18)
[2016-11-25] MEDS ORDERED: PROMETHAZINE 25 MG/1 ML VIAL ONE (00:29)
[2016-11-25] MEDS ORDERED: PROCHLORPERAZINE 10 MG/2 ML VIAL IVP STA (02:35)
[2016-11-25] MEDS ORDERED: diphenhydrAMINE INJ 50 MG/ML VIAL IVP STA (02:36)
--- NOTE | 2016-11-25 02:42 | Ultrasound Preliminary Report ---
Exam: US OB FIRST TRIMESTER IMPRESSION: 1. Single intrauterine embryo at EGA 6 weeks 2 days with LACEY 07/19/2017 based on crown-rump length, w hich is concordant with clinical dates. 2. Assigned dating is LACEY 07/19/2017 based on current US. 3. Embryo shows bradycardia at 62 BPM. Yolk sac is not seen. Sonographic follow-up is recommended. [facility] SITE ID: [id number]
[2016-11-25] MEDS ORDERED: PROCHLORPERAZINE 10 MG/2 ML VIAL ONE (02:43)
[2016-11-25] MEDS ORDERED: diphenhydrAMINE INJ 50 MG/ML VIAL ONE (02:43)
--- NOTE | 2016-11-25 02:45 | Ultrasound Report ---
EXAM: FIRST TRIMESTER OBSTETRIC ULTRASOUND (Less than 11 weeks) EXAM DATE: 11/25/2016 02:06 AM. CLINICAL HISTORY: , abdominal pain. LMP: Uncertain, possibly 09/21/2016. Beta-HCG 2595. COMPARISONS: 11/14/2016. TECHNIQUE: Transabdominal and transvaginal ultrasound examination with static image documentation. CLINICAL DATES: EGA 9 weeks 2 days with LACEY 06/28/2017 based on LMP. ASSESSMENT: Gestational Sac: Single intrauterine. Mean gestational sac diameter: 6.1 mm = 5 weeks 2 days. Embryo: CRL (crown-rump length) 3.9 mm = 6 weeks 2 days. Cardiac activity: 62 beats per minute. Yolk sac: Not seen. Amniotic fluid: Not accurately assessed at this gestational age. Early placenta: Not visible at this gestational age. Other: No perigestational fluid collection demonstrated. MATERNAL STRUCTURES: Uterus: Anteverted. Unremarkable. Cervix: Closed. Right Ovary/Adnexa: Cyst measuring 3.1 x 1.7 x 3.2 cm. The ovary measures 4.3 x 2.6 x 3.8 cm, volume 22 cc. Left Ovary/Adnexa: Unremarkable. The ovary measures 3.1 x 2.0 x 1.7 cm, volume 5.5 cc. Free Fluid: None. Other: None. IMPRESSION: 1. Single intrauterine embryo at EGA 6 weeks 2 days with LACEY 07/19/2017 based on crown-rump length, w hich is concordant with clinical dates. 2. Assigned dating is LACEY 07/19/2017 based on current US. 3. Embryo shows bradycardia at 62 BPM. Yolk sac is not seen. Sonographic follow-up is recommended. [facility] Referring Provider Line: [phone] SITE ID: [id number]
[2016-11-25] MEDS ORDERED: diphenhydrAMINE 25 MG CAPSULE PO PRN (03:13)
[2016-11-25] MEDS ORDERED: ZOLPIDEM 5 MG TABLET PO PRN (03:13)
[2016-11-25] MEDS ORDERED: POTASSIUM CHLOR 20 MEQ/100 ML 20 MEQ/100 ML BAG IV SCH (04:00)
[2016-11-25] MEDS ORDERED: PROMETHAZINE INJ 25 MG in SODIUM CHLORIDE 0.9% 50 ML IV SCH (04:00)
[2016-11-25] MEDS ORDERED: FAMOTIDINE 20 MG in SODIUM CHLORIDE 0.9% 50 ML IV SCH (04:00)
[2016-11-25] MEDS: LACTATED RINGERS 1,000 ML IV SCH ×4 (04:21→16:10)
[2016-11-25] MEDS: DOCUSATE SODIUM 250 MG CAPSULE PO SCH ×2 (04:21→08:30)
[2016-11-25] MEDS: SODIUM CHLORIDE FLUSH 0.9% 10 ML SYRINGE IVP ONE (04:22)
[2016-11-25] MEDS: ONDANSETRON 4 MG/2 ML VIAL IVP SCH ×4 (04:22→16:07)
[2016-11-25] MEDS ORDERED: POTASSIUM CHLOR 10 MEQ/100 ML 10 MEQ/100 ML BAG IV ONE ×3 (04:27→11:30)
[2016-11-25] MEDS: HYDROcod/ACETAM 10 MG/325 MG TABLET PO SCH ×4 (05:23→16:08)
--- NOTE | 2016-11-25 06:47 | HISTORY & PHYSICAL EXAMINATION ---
DATE OF ADMISSION: 11/25/2016 IDENTIFICATION: This is a 31-year-old 4, para 3-0-0-3, with approximately 6 week intrauterine . HISTORY OF PRESENT ILLNESS: The patient is currently sleeping secondary to Benadryl. Her report was by Dr. Stallings, the ER physician. The patient presents today with continued nausea and vomiting for the last 3 days. The patient has a well-documented history of chronic nausea and vomiting. This nausea and vomiting has been significantly worsened during . The patient has been seeing GI physician at [facility]. Dr. Stallings has tried the patient on multiple antiemetics in the emergency department with no avail. The patient continues to have continued vomiting. She is accompanied today by her , Harry. His phone number is [phone]. PAST MEDICAL HISTORY 1. Chronic nausea secondary to esophageal spasm. 2. Anxiety. 3. PTSD. 4. Sleep disorder. 5. Back muscle spasms. PAST SURGICAL HISTORY 1. Open heart surgery secondary to unknown reason. 2. Removal of sternal wires. 3. Endoscopy. 4. On 04/18/2016 diagnostic laparoscopy for chronic pelvic pain. ALLERGIES 1. AMOXICILLIN. 2. PENICILLIN. 3. IBUPROFEN. 4. DEMEROL. 5. DILAUDID. 6. CIPROFLOXACIN. MEDICATIONS 1. Vicodin. 2. Zofran. SOCIAL HISTORY: She is to Harry and his number again is [phone]. They have 3 children, Aguila, Souleymane, and Scarlet. The patient's pharmacy of choice is [facility] in [place], [place]. She denies any tobacco or alcohol use. She admits to MJ use. PAST OBSTETRICAL HISTORY: Three term spontaneous vaginal deliveries. PAST GYNECOLOGICAL HISTORY: She denies any abnormal Pap smears or sexually transmitted diseases. REVIEW OF SYSTEMS: Negative unless otherwise stated. PAST GYNECOLOGIC HISTORY: She denies any vaginal bleeding or cramping. This is a desired . OBJECTIVE VITAL SIGNS: Temperature 36.9, heart rate 78, respiratory rate 18, blood pressure 126/70 and 123/76. GENERAL: The patient is a well-developed, cachectic female who is currently sleeping. The rest of the physical exam is deferred. LABORATORY DATA: Show on 11/24/2016: White count 8.7, hemoglobin 12.5, hematocrit 36.6, platelets 341. Sodium 135, potassium 2.7, chloride 94, BUN 17, creatinine 0.9, glucose 143, AST 55, ALT 64, albumin is 4.8. Urine drug screen showed that she was positive for opioids, as well as cannabinoids; hCG is 2595. Urinalysis significant only for trace protein and 15 ketones. Ultrasound today on 11/25/2016 reveals a single intrauterine gestation with the crown rump length at 3.9 mm or 6 weeks 2 days. Cardiac activity is 62 beats per minute. Yolk sac is not seen. There is a small right ovarian cyst measuring 3.1 x 1.7 x 3.2 cm. ASSESSMENT 1. A 31-year-old 4 para 3-0-0-3 with a 6 week 2 day intrauterine . 2. Chronic nausea with worsening vomiting. 3. Hypokalemia. PLAN 1. We will admit to observation for continued IV fluid hydration as well as antiemetics. We will recheck potassium in the morning. 2. Continue GI cocktail and pain management. 3. Ultrasound findings as well as hCG concerning for a nonviable . Will continue to watch for signs and symptoms of spontaneous . JOB #: [id number] EXT JOB #:[id number] SONAM
[2016-11-25] MEDS: PROMETHAZINE INJ 25 MG in SODIUM CHLORIDE 0.9% 50 ML IV SCH ×2 (08:28→14:24)
[2016-11-25] MEDS ORDERED: GI COCKTAIL 120 ML BOTTLE PO SCH (09:00)
[2016-11-25] MEDS ORDERED: POTASSIUM BICARB 25 MEQ TABLET PO ONE (12:30)
--- NOTE | 2016-11-25 14:18 | PROVIDER PROGRESS NOTE ---
Subjective - Prog Note Date Prog Note Date: 11/25/16 Prog Note Time: 14:15 - Subjective Pt reports feeling: Improved Subjective: Patient lying in bed, feeling much better. Mom at bedside. Upset other providers have not taken her seriously and sent her away. Would like refill on zofran and GI cocktail. Objective - Vital Signs/Intake & Output Vital Signs: Vital Signs x48h Temp Pulse Resp BP Pulse Ox 11/25/16 11:32 97.9 F 59 L 12 95/50 L 99 11/25/16 08:00 97.7 F 112 H 18 102/59 L 96 Intake & Output: Intake & Output 11/22/16 11/23/16 11/24/16 11/25/16 23:59 23:59 23:59 23:59 Intake Total 3069.667 Balance 3069.667 - Objective General Appearance: positive: No acute distress, Alert Eyes Bilateral: positive: Normal inspection Neurologic/Psychiatric: positive: Oriented x3 - Lab Results Fish Bones: 11/24/16 21:54 11/25/16 10:40 Other Labs: Lab Results x24hrs 11/25/16 Range/Units 10:40 Potassium 2.5 L* (3.5-5.0) mmol/L Assessment/Plan - Problem List (1) related nausea, antepartum Impression: 31 yo with a 6w2d IUP Worrisome for SAB given U/S findings Improved nausea and vomiting Faxed Rx zofran and GI cocktail to [facility] in [place] (2) Hypokalemia Impression: Continued hypokalemia. K taken today prior to potassium replacement. S/p 1 dose K IV and will give another po. Repeat K this PM If K improved, consider D/C home.
[2016-11-25 16:31] VITALS: BP 99/51
[2016-11-25] MEDS ORDERED: POTASSIUM CHLORIDE 20 MEQ TABLET PO SCH (19:00)
[2016-11-25] MEDS ORDERED: FAMOTIDINE 20 MG/50 ML 50 ML IV SCH (21:00)
== END 2016-11-25 19:56 | disposition home or self-care (01) ==
LOC: EDUNIT# → ED 21:28 → OBS 11-25 03:07
PROVIDERS: ADMIT Obstetrics & Gynecology; ATTEND Obstetrics & Gynecology
DX: O21.1 Hyperemesis gravidarum with metabolic disturbance (principal); O36.8310 Maternal care for abnormalities of the fetal heart rate or rhythm, first trimester, not applicable or unspecified; O99.611 Diseases of the digestive system complicating pregnancy, first trimester; K22.4 Dyskinesia of esophagus; O99.341 Other mental disorders complicating pregnancy, first trimester; F41.9 Anxiety disorder, unspecified; F43.10 Post-traumatic stress disorder, unspecified; Z3A.01 Less than 8 weeks gestation of pregnancy
CPT/HCPCS: 36415; 76801; 76830; 80053; 80306; 81003; 83690; 84132; 84702; 85025; 96361; 96365; 96367; 96368; 96375; 96376; 99284; 99285; A9270; G0378; J2270; J3411; J7040; J7120; 81001; 87086; 99283

== ENCOUNTER 2017-01-02 13:01 | Outpatient (CLI) | payer MEDICAID | END 2017-01-02 13:02 | disposition critical access hospital (66) | LOC: EMS 13:01 | PROVIDERS: ATTEND Surgery | DX: R10.9 Unspecified abdominal pain (principal) | CPT/HCPCS: A0425; A0429 ==

== ENCOUNTER 2017-01-02 13:23 | Emergency (ER) | payer MEDICAID ==
--- NOTE | 2017-01-02 13:30 | ED Physician Documentation ---
PD HPI ABD PAIN - Stated complaint Stated Complaint: N/V - Chief complaint Chief Complaint: Abd Pain - History obtained from History obtained from: Patient, EMS - History of Present Illness Timing - onset: Other (31-year-old woman with history of esophageal spasm and recurrent upper abdominal pain with vomiting. Predominantly her issues are when she is but she miscarried a month and a half ago. She has been sick since Saturday, 5 days, she thinks it stress related because her daughter suffered an injury. She complains of upper abdominal pain and vomiting, some loose stools but without overt diarrhea. No fevers.) Review of Systems Ten Systems: 10 systems reviewed and negative Constitutional: denies: Fever, Chills Cardiac: denies: Chest pain / pressure, Palpitations Respiratory: denies: Dyspnea, Cough PD PAST MEDICAL HISTORY - Past Medical History Cardiovascular: Murmur Respiratory: Asthma Neuro: None Endocrine/Autoimmune: None GI: Hemorrhoids, Other REGISTRATION REP: None : None HEENT: None Psych: Anxiety, Post traumatic stress disorder Musculoskeletal: Scoliosis Derm: None - Past Surgical History Past Surgical History: Yes Ortho: Shoulder arthroplasty Cardiovascular: Other - Present Medications Home Medications: Ambulatory Orders Medication Instructions Recorded Confirmed HYDROcod/ACETAM 5/325 [[place] 5/325] 1 tab PO Q6H PRN #15 tablet 11/14/16 Ondansetron Odt [Zofran] 4 mg TL Q6H PRN #15 tablet 11/14/16 01/02/17 Albuterol Sulfate [Proair Hfa 2 puffs ORAL PRN PRN 01/02/17 01/02/17 Inhaler] Ondansetron Odt [Zofran Odt] 4 mg TL Q6H PRN #20 tablet 01/02/17 - Allergies Allergies/Adverse Reactions: Allergies Allergy/AdvReac Type Severity Reaction Status Date / Time amoxicillin [Amoxicillin] Allergy Severe throat Verified 01/02/17 13:30 swells Penicillins Allergy Severe Hives Verified 01/02/17 13:30 pertussis vaccine,adsorbed Allergy Severe seizures Verified 01/02/17 13:30 [Pertussis Vaccine,Adsorbed] hydromorphone HCl * Allergy Unknown Verified 01/02/17 13:30 [From Dilaudid] ciprofloxacin [From Cipro] AdvReac Intermediate Cramps Verified 01/02/17 13:30 ibuprofen AdvReac Intermediate Cramps Verified 01/02/17 13:30 acetaminophen AdvReac Mild Unknown Verified 01/02/17 13:30 oxycodone HCl * AdvReac Mild Nausea Verified 01/02/17 13:30 [From Percocet] diphtheria, pertussis, AdvReac Unknown Verified 01/02/17 13:30 tetanus vacc meperidine HCl * AdvReac Itching Verified 01/02/17 13:30 [From Demerol] - Social History Does the pt smoke?: No Smoking Status: Former smoker Does the pt drink ETOH?: No Does the pt have substance abuse?: No - Immunizations Immunizations are current?: Yes - POLST Patient has POLST: No PD ED PE NORMAL - Vitals Vital signs reviewed: Yes - General General: Alert and oriented X 3, Other (Retching, crying) - HEENT HEENT: PERRL, EOMI - Neck Neck: Supple, no meningeal sign, No bony TTP - Cardiac Cardiac: RRR, No murmur - Respiratory Respiratory: No respiratory distress, Clear bilaterally - Abdomen Abdomen: Normal bowel sounds, Soft, Non tender - Derm Derm: Normal color, Warm and dry - Extremities Extremities: No edema, No calf tenderness / cord - Neuro Neuro: Alert and oriented X 3, Normal speech - Psych Psych: Normal mood, Normal affect Results - Vitals Vitals: Vital Signs - 24 hr 01/02/17 01/02/17 01/02/17 13:26 14:24 14:57 Temperature 36.8 C 36.8 C Heart Rate 75 49 L 58 L Respiratory 18 14 14 Rate Blood Pressure 159/71 H 146/87 H 152/81 H O2 Saturation 100 98 100 01/02/17 16:44 Temperature 36.6 C Heart Rate 78 Respiratory 16 Rate Blood Pressure 137/81 H O2 Saturation 100 Oxygen O2 Source Room air - Labs Labs: Laboratory Tests 01/02/17 14:02 Sodium 134 L Potassium 3.5 Chloride 95 L Carbon Dioxide 23 Anion Gap 16.0 H BUN 24 H Creatinine 0.8 Estimated GFR (MDRD) 83 L Glucose 116 H Calcium 9.8 Total Bilirubin 1.1 H AST 25 ALT 17 Alkaline Phosphatase 50 Total Protein 8.6 H Albumin 5.1 Globulin 3.5 Albumin/Globulin Ratio 1.5 Lipase 29 Serum HCG, Qual NEGATIVE PD MEDICAL DECISION MAKING - ED course ED course: 31-year-old woman with chronic upper abdominal pain and vomiting presents with an exacerbation same. She does have evidence of dehydration here with a high BUN which is atypical for her. She is treated with IV fluids and morphine and Zofran and other antiemetics as per other visits and she improved stepwise. .Remains nontender prior to discharge, passed an oral challenge and requested discharge. Departure - Departure Disposition: 01 Home, Self Care Clinical Impression: Recurrent abdominal pain Vomiting Qualifiers: Vomiting type: unspecified Vomiting Intractability: intractable Nausea presence : with nausea Qualified Code(s): R11.2 - Nausea with vomiting, unspecified Condition: Good Record reviewed to determine appropriate education?: Yes Instructions: ED Nausea Vomiting Prescriptions: Ondansetron Odt [Zofran Odt] 4 mg TL Q6H PRN #20 tablet PRN Reason: Nausea / Vomiting Comments: Call your doctor to arrange a follow-up appointment, make the next available appointment. In the interim, return anytime if worse or if new symptoms develop. Your blood pressure was elevated today on check into the emergency department. This does not mean that you have hypertension, it is a common phenomenon to come to the emergency department and have elevated blood pressure. I recommend that you see your primary care physician within the week to have it rechecked when you are feeling better.
[2017-01-02] MEDS: LACTATED RINGERS 1,000 ML IV STA (13:53)
[2017-01-02] MEDS ORDERED: MORPHINE 10 MG/ML VIAL ONE ×3 (13:54→17:35)
[2017-01-02] MEDS: MORPHINE 10 MG/ML VIAL IVP STA ×3 (13:55→17:33)
[2017-01-02] MEDS: ONDANSETRON 4 MG/2 ML VIAL IVP STA ×2 (13:55→14:55)
[2017-01-02] MEDS ORDERED: MAG HYDROX/AL HYDROX/SIMETH 30 ML UDC ONE ×2 (13:56→17:36)
[2017-01-02] MEDS ORDERED: ONDANSETRON 4 MG/2 ML VIAL ONE ×2 (13:56→14:58)
[2017-01-02] MEDS ORDERED: LIDOCAINE VISCOUS 2% 15 ML UDC MM ONE ×2 (13:58→17:36)
[2017-01-02] MEDS: LIDOCAINE VISCOUS 2% 15 ML UDC MM STA ×2 (13:58→17:34)
[2017-01-02] MEDS: MAG HYDROX/AL HYDROX/SIMETH 30 ML UDC PO STA ×2 (13:58→17:34)
[2017-01-02 14:30] LABS: ALBUMIN/GLOBULIN RATIO 1.5 (1.0-2.2); BILIRUBIN,TOTAL 1.1 mg/dL (0.2-1.0); BUN - BLOOD UREA NITROGEN 24 mg/dL (6-20); CALCIUM 9.8 mg/dL (8.5-10.3); CARBON DIOXIDE - CO2 23 mmol/L (21-32); CHLORIDE 95 mmol/L (101-111); CREATININE 0.8 mg/dL (0.4-1.0); GFR - MDRD 83 (>89); GLUCOSE 116 mg/dL (70-100); LIPASE 29 U/L (22-51); POTASSIUM 3.5 mmol/L (3.5-5.0); SODIUM 134 mmol/L (135-145); TOTAL PROTEIN 8.6 g/dL (6.7-8.2)
[2017-01-02] MEDS ORDERED: PROMETHAZINE 25 MG/1 ML VIAL ONE (16:40)
[2017-01-02] MEDS: PROMETHAZINE INJ 25 MG in SODIUM CHLORIDE 0.9% 50 ML IV STA (16:40)
[2017-01-02 16:45] VITALS: BP 137/81
== END 2017-01-02 18:19 | disposition home or self-care (01) ==
LOC: EDUNIT# → ED 13:23
DX: R10.10 Upper abdominal pain, unspecified (principal); R11.2 Nausea with vomiting, unspecified; R03.0 Elevated blood-pressure reading, without diagnosis of hypertension; E86.0 Dehydration; Z87.891 Personal history of nicotine dependence
CPT/HCPCS: 36415; 80053; 83690; 84703; 96361; 96365; 96375; 96376; 99284

== ENCOUNTER 2017-01-03 17:57 | Emergency (ER) | payer MEDICAID ==
[2017-01-03] MEDS ORDERED: ONDANSETRON 4 MG/2 ML VIAL IVP STA ×2 (18:05→21:26)
[2017-01-03] MEDS ORDERED: MORPHINE 10 MG/ML VIAL IVP STA ×3 (18:05→21:26)
[2017-01-03] MEDS ORDERED: LACTATED RINGERS 1,000 ML IV STA (18:05)
[2017-01-03] MEDS ORDERED: LIDOCAINE TOPICAL 4% 50 ML BOTTLE MM STA (18:08)
[2017-01-03] MEDS ORDERED: MAG HYDROX/AL HYDROX/SIMETH 30 ML UDC PO STA (18:08)
--- NOTE | 2017-01-03 18:11 | ED Physician Documentation ---
PD HPI ABD PAIN - Stated complaint Stated Complaint: VOMITING - Chief complaint Chief Complaint: Abd Pain - History obtained from History obtained from: Patient - History of Present Illness Timing - onset: Other (31-year-old woman with recurrent esophageal spasms. Seen yesterday by me for abdominal pain and vomiting similar to prior. Her BUN was up which is atypical for her. 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 : None HEENT: None Psych: Anxiety, Post traumatic stress disorder Musculoskeletal: Scoliosis Derm: None - Past Surgical History Past Surgical History: Yes Ortho: Shoulder arthroplasty Cardiovascular: Other - Present Medications Home Medications: Ambulatory Orders Medication Instructions Recorded Confirmed HYDROcod/ACETAM 5/325 [[place] 5/325] 1 tab PO Q6H PRN #15 tablet 11/14/16 Ondansetron Odt [Zofran] 4 mg TL Q6H PRN #15 tablet 11/14/16 01/02/17 Albuterol Sulfate [Proair Hfa 2 puffs ORAL PRN PRN 01/02/17 01/02/17 Inhaler] Ondansetron Odt [Zofran Odt] 4 mg TL Q6H PRN #20 tablet 01/02/17 - Allergies Allergies/Adverse Reactions: Allergies Allergy/AdvReac Type Severity Reaction Status Date / Time amoxicillin [Amoxicillin] Allergy Severe throat Verified 01/03/17 18:03 swells Penicillins Allergy Severe Hives Verified 01/03/17 18:03 pertussis vaccine,adsorbed Allergy Severe seizures Verified 01/03/17 18:03 [Pertussis Vaccine,Adsorbed] hydromorphone HCl * Allergy Unknown Verified 01/03/17 18:03 [From Dilaudid] ciprofloxacin [From Cipro] AdvReac Intermediate Cramps Verified 01/03/17 18:03 ibuprofen AdvReac Intermediate Cramps Verified 01/03/17 18:03 acetaminophen AdvReac Mild Unknown Verified 01/03/17 18:03 oxycodone HCl * AdvReac Mild Nausea Verified 01/03/17 18:03 [From Percocet] diphtheria, pertussis, AdvReac Unknown Verified 01/03/17 18:03 tetanus vacc meperidine HCl * AdvReac Itching Verified 01/03/17 18:03 [From Demerol] - Social History Does the pt smoke?: No Smoking Status: Never smoker Does the pt drink ETOH?: No Does the pt have substance abuse?: No - Family History Family history: reports: Non contributory - Immunizations Immunizations are current?: Yes - POLST Patient has POLST: No PD ED PE NORMAL - Vitals Vital signs reviewed: Yes - General General: Alert and oriented X 3, Other (Uncomfortable, retching) - HEENT HEENT: PERRL, EOMI, Pharynx benign - Neck Neck: Supple, no meningeal sign, No bony TTP - Cardiac Cardiac: RRR, No murmur - Respiratory Respiratory: No respiratory distress, Clear bilaterally - Abdomen Abdomen: Soft, Non tender - Back Back: No CVA TTP, No spinal TTP - Derm Derm: Normal color, Warm and dry - Extremities Extremities: No edema, No calf tenderness / cord - Neuro Neuro: Alert and oriented X 3, Normal speech - Psych Psych: Normal mood, Normal affect Results - Vitals Vitals: Vital Signs - 24 hr 01/03/17 01/03/17 01/03/17 18:00 18:06 19:08 Temperature 37 C Heart Rate 77 73 78 Respiratory 20 16 16 Rate Blood Pressure 172/117 H 148/76 H 143/83 H O2 Saturation 100 100 97 01/03/17 01/03/17 20:15 20:25 Temperature Heart Rate 57 L 57 L Respiratory 18 18 Rate Blood Pressure 147/85 H 147/85 H O2 Saturation 99 99 Oxygen O2 Source Room air - Labs Labs: Laboratory Tests 01/03/17 01/03/17 18:25 18:25 WBC 7.8 RBC 4.89 Hgb 14.1 Hct 42.3 MCV 86.6 MCH 28.8 MCHC 33.3 RDW 12.2 Plt Count 437 MPV 8.3 Neut # 6.6 Lymph # 1.0 L [place] # 0.3 Eos # 0.0 Baso # 0.0 Absolute Nucleated RBC 0.00 Nucleated RBC % 0.0 Sodium 137 Potassium 3.5 Chloride 92 L Carbon Dioxide 27 Anion Gap 18.0 H BUN 15 Creatinine 1.0 Estimated GFR (MDRD) 64 L Glucose 124 H Calcium 10.0 Total Bilirubin 1.0 AST 23 ALT 16 Alkaline Phosphatase 49 Total Protein 8.9 H Albumin 5.2 Globulin 3.7 Albumin/Globulin Ratio 1.4 Lipase 24 PD MEDICAL DECISION MAKING - ED course ED course: 31-year-old woman with recurrent upper abdominal pain and vomiting presents with an exacerbation of same. She was seen here yesterday for similar. Labs were repeated and actually better than yesterday. She improved stepwise with medications and requested discharge. She was nontender on repeat examination prior to discharge. Departure - Departure Disposition: Home, Self Care Clinical Impression: Recurrent abdominal pain Vomiting Qualifiers: Vomiting type: unspecified Vomiting Intractability: intractable Nausea presence : with nausea Qualified Code(s): R11.2 - Nausea with vomiting, unspecified Condition: Good Record reviewed to determine appropriate education?: Yes Instructions: ED Abdominal Pain Unkn Cause Comments: Call your doctor to arrange a follow-up appointment, make the next available appointment. In the interim, return anytime if worse or if new symptoms develop. Your blood pressure was elevated today on check into the emergency department. This does not mean that you have hypertension, it is a common phenomenon to come to the emergency department and have elevated blood pressure. I recommend that you see your primary care physician within the week to have it rechecked when you are feeling better.
[2017-01-03] MEDS ORDERED: ONDANSETRON 4 MG/2 ML VIAL ONE ×2 (18:20→21:34)
[2017-01-03] MEDS ORDERED: HYDROmorphone 1 MG/ML SYRINGE ONE (18:20)
[2017-01-03] MEDS ORDERED: MAG HYDROX/AL HYDROX/SIMETH 30 ML UDC ONE (18:20)
[2017-01-03] MEDS ORDERED: MORPHINE 10 MG/ML VIAL ONE ×3 (18:29→21:34)
[2017-01-03 18:41] LABS: BASOPHILS % (AUTO) 0.3 %; HCT - HEMATOCRIT 42.3 % (37.0-47.0); HGB - HEMOGLOBIN 14.1 g/dL (12.0-16.0); LYMPHOCYTES % (AUTO) 12.2 %; MEAN CORPUSCULAR HEMOGLOBIN 28.8 pg (27.0-31.0); MEAN CORPUSCULAR HGB CONC 33.3 g/dL (32.0-36.0); MEAN CORPUSCULAR VOLUME 86.6 fL (81.0-99.0); MEAN PLATELET VOLUME 8.3 fL (7.9-10.8); MONOCYTES # (AUTO) 0.3 10^3/uL (0.0-1.0); MONOCYTES % (AUTO) 3.3 %; NEUTROPHILS # (AUTO) 6.6 10^3/uL (1.5-6.6); NEUTROPHILS % (AUTO) 84.2 %; RED BLOOD COUNT 4.89 10^6/uL (4.20-5.40); RED CELL DISTRIBUTION WIDTH 12.2 % (12.0-15.0); UNCORRECTED WHITE BLOOD COUNT 7.8 x10^3/uL; WHITE BLOOD COUNT 7.8 x10^3/uL (4.8-10.8)
[2017-01-03 18:45] LABS: ALBUMIN/GLOBULIN RATIO 1.4 (1.0-2.2); POTASSIUM 3.5 mmol/L (3.5-5.0); TOTAL PROTEIN 8.9 g/dL (6.7-8.2)
[2017-01-03] MEDS ORDERED: PROMETHAZINE INJ 25 MG in SODIUM CHLORIDE 0.9% 50 ML IV STA (19:41)
[2017-01-03] MEDS ORDERED: PROMETHAZINE 25 MG/1 ML VIAL ONE (19:55)
[2017-01-03] MEDS ORDERED: SODIUM CHLORIDE 0.9% MINIBAG 0 ML IV ONE (19:56)
[2017-01-03 21:46] VITALS: BP 113/67
== END 2017-01-03 21:47 | disposition home or self-care (01) ==
LOC: ED 17:57
DX: R10.9 Unspecified abdominal pain (principal); R11.2 Nausea with vomiting, unspecified; R03.0 Elevated blood-pressure reading, without diagnosis of hypertension; J45.909 Unspecified asthma, uncomplicated
CPT/HCPCS: 36415; 80053; 83690; 85025; 96365; 96375; 96376; 99284; A9270; J7040; J7120

== ENCOUNTER 2017-01-29 18:15 | Emergency (ER) | payer MEDICAID ==
[2017-01-29] MEDS ORDERED: HYDROcod/ACETAM 5/325 MG TABLET PO STA (18:33)
--- NOTE | 2017-01-29 18:35 | ED Physician Documentation ---
PD HPI BACK INJURY - Stated complaint Stated Complaint: FEMALE /BACK PX - History obtained from History obtained from: Patient - History of Present Illness Location: Other (She broke her tailbone a year ago and after that fell again injuring her lower back. She has had back pain ever since that increase during a miscarriage that was thought to be complete on at which time her endometrial stripe in the office was negligible. She has increasing pain of the sacrum and low back that does not radiate and is not associated with weakness, numbness, tingling, fevers, saddle anesthesia. 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 : None HEENT: None Psych: Anxiety, Post traumatic stress disorder Musculoskeletal: Scoliosis Derm: None - Past Surgical History Past Surgical History: Yes Ortho: Shoulder arthroplasty Cardiovascular: Other - Present Medications Home Medications: Ambulatory Orders Medication Instructions Recorded Confirmed HYDROcod/ACETAM 5/325 [[place] 5/325] 1 tab PO Q6H PRN #15 tablet 11/14/16 Ondansetron Odt [Zofran] 4 mg TL Q6H PRN #15 tablet 11/14/16 01/02/17 Albuterol Sulfate [Proair Hfa 2 puffs ORAL PRN PRN 01/02/17 01/02/17 Inhaler] Ondansetron Odt [Zofran Odt] 4 mg TL Q6H PRN #20 tablet 01/02/17 - Allergies Allergies/Adverse Reactions: Allergies Allergy/AdvReac Type Severity Reaction Status Date / Time amoxicillin [Amoxicillin] Allergy Severe throat Verified 01/03/17 18:03 swells Penicillins Allergy Severe Hives Verified 01/03/17 18:03 pertussis vaccine,adsorbed Allergy Severe seizures Verified 01/03/17 18:03 [Pertussis Vaccine,Adsorbed] hydromorphone HCl * Allergy Unknown Verified 01/03/17 18:03 [From Dilaudid] ciprofloxacin [From Cipro] AdvReac Intermediate Cramps Verified 01/03/17 18:03 ibuprofen AdvReac Intermediate Cramps Verified 01/03/17 18:03 acetaminophen AdvReac Mild Unknown Verified 01/03/17 18:03 oxycodone HCl * AdvReac Mild Nausea Verified 01/03/17 18:03 [From Percocet] diphtheria, pertussis, AdvReac Unknown Verified 01/03/17 18:03 tetanus vacc meperidine HCl * AdvReac Itching Verified 01/03/17 18:03 [From Demerol] - Social History Does the pt smoke?: No Smoking Status: Never smoker Does the pt drink ETOH?: No Does the pt have substance abuse?: No - Immunizations Immunizations are current?: Yes - POLST Patient has POLST: No PD ED PE NORMAL - Vitals Vital signs reviewed: Yes - General General: Alert and oriented X 3, No acute distress, Other (Laying on the right side with hip slightly flexed) - Abdomen Abdomen: Soft, Non tender - Back Back: Other (Mild tenderness of both the upper sacrum and lower lumbar spine, The patient has equal and normal Achilles and patellar reflexes bilaterally. Normal sensation in all areas of the legs. Patient denies saddle anesthesia. Normal strength in flexion-extension at the ankles, knees, and flexion of the hips.) - Neuro Neuro: Alert and oriented X 3, Normal speech - Psych Psych: Normal mood, Normal affect Results - Vitals Vitals: Vital Signs - 24 hr 01/29/17 01/29/17 18:24 19:23 Temperature 36.6 C 36.5 C Heart Rate 90 60 Respiratory 18 18 Rate Blood Pressure 133/93 H 115/67 O2 Saturation 100 98 Oxygen O2 Source Room air - Labs Labs: Laboratory Tests 01/29/17 01/29/17 19:13 19:13 Urine Color YELLOW Urine Clarity CLEAR Urine pH 6.0 Ur Specific [place] 1.025 1.025 Urine Protein NEGATIVE Urine Glucose (UA) NEGATIVE Urine Ketones NEGATIVE Urine Occult Blood NEGATIVE Urine Nitrite NEGATIVE Urine Bilirubin NEGATIVE Urine Urobilinogen 0.2 (NORMAL) Ur Leukocyte Esterase NEGATIVE Ur Microscopic Review NOT INDICATED Urine Culture Comments NOT INDICATED Urine HCG, Qual NEGATIVE - Rads (name of study) L spine and sacrum XRs Radiology: EMP read contemporaneously (Mild L4-L5 disc loss and spondylosis) PD MEDICAL DECISION MAKING - ED course ED course: 31-year-old woman with ongoing pain of the sacrum and low back after remote injuries. Suspect she has sacral general, she is quite thin. No acute findings on x-rays but the chronic findings were as shown and discussed with patient and . Follow-up for physical therapy was advised. Departure - Departure Disposition: 01 Home, Self Care Clinical Impression: Sacralgia Back pain Qualifiers: Back pain location: low back pain Chronicity: chronic Back pain laterality: midline Sciatica presence: without sciatica Qualified Code(s): M54.5 - Low back pain; G89.29 - Other chronic pain; G89.29 - Other chronic pain Condition: Good Record reviewed to determine appropriate education?: Yes Instructions: ED Neck Back Pain General Comments: Follow-up with your regular physician to talk about referrals to physical therapy. Return if worse.
[2017-01-29 19:24] LABS: BILIRUBIN,URINE NEGATIVE (NEGATIVE)
[2017-01-29 19:26] VITALS: BP 115/67
[2017-01-29 19:27] LABS: HCG UR QUAL NEGATIVE; UA CHARGE (STRIP ONLY) YES; UR CULTURE IF IND NOT INDICATED
--- NOTE | 2017-01-29 20:06 | XRAY Preliminary Report ---
Exam: XR LUMBAR SPINE 2 VIEW IMPRESSION: 1. Mild L4-L5 disk height loss. 2. Chronic L5 spondylolysis. [facility] SITE ID: [id number]
--- NOTE | 2017-01-29 20:09 | XRAY Report ---
EXAM: LUMBOSACRAL SPINE RADIOGRAPHY EXAM DATE: 01/29/2017 07:47 PM. CLINICAL HISTORY: Back inj. COMPARISONS: CT 04/03/2016. TECHNIQUE: 2 views. FINDINGS: Alignment: Normal. No spondylolisthesis or scoliosis. Bones: Five [id number] lumbar vertebral bodies are present. Vertebral bodies appear normal in he ight. There is L5 spondylolysis. Disks: There is mild loss of disk height at L4-L5. Other disk spaces appear maintained. Facets: Satisfactory alignment. Sacroiliac Joints: Unremarkable. Soft Tissues: Normal. The visualized bowel gas pattern is normal. IMPRESSION: 1. Mild L4-L5 disk height loss. 2. Chronic L5 spondylolysis. [facility] Referring Provider Line: [phone] SITE ID: [id number]
--- NOTE | 2017-01-29 20:11 | XRAY Preliminary Report ---
Exam: XR SACRUM/COCCYX IMPRESSION: No acute fracture. [facility] SITE ID: [id number]
--- NOTE | 2017-01-29 20:14 | XRAY Report ---
EXAM: SACRUM AND COCCYX RADIOGRAPHY EXAM DATE: 01/29/2017 07:48 PM. HISTORY: Lower back and coccyx pain. Previous coccyx fracture by history. COMPARISONS: 01/09/2016. Sagittal images from pelvic CT 04/03/2016 are not available.. TECHNIQUE: 3 views. FINDINGS: Alignment: No change in alignment. Bones: No acute fracture. There is irregularity at the sacrococcygeal junction which is unchanged sin ce 2016. Joints: Normal. The sacroiliac joints and visualized hips are within normal limits. Soft Tissues: Nonobstructive bowel gas pattern. IMPRESSION: No acute fracture. [facility] Referring Provider Line: [phone] SITE ID: [id number]
[2017-01-29] MEDS ORDERED: HYDROcod/ACET 5/325 Prepack 6 PO STA (20:25)
== END 2017-01-29 20:58 | disposition home or self-care (01) ==
LOC: ED 18:15
DX: M53.3 Sacrococcygeal disorders, not elsewhere classified (principal); M54.5 Low back pain; G89.29 Other chronic pain; Z87.828 Personal history of other (healed) physical injury and trauma; Z91.81 History of falling
CPT/HCPCS: 72100; 72220; 81003; 81025; 99283; A9270; 81001; 87086

== ENCOUNTER 2017-01-31 15:35 | Emergency (ER) | payer MEDICAID ==
--- NOTE | 2017-01-31 15:46 | ED Physician Documentation ---
History of Present Illness - Stated complaint Stated Complaint: BACK PAIN/ HEADACHE - Chief complaint Chief Complaint: Back Pain - Additonal information Additional information: hx from pt 31 f denies preg - three neg HCGs in the last week and just had her menses to the ER for low back pain rad to [facility] had a fall last February and it still hurts seen for same here two days ago - xray done and per rad read neg (as were CT from 03/2016 and xray 12/2015) but pt understood from that visit that she has a L45 fracture was given vicodin prepack states that night she had intercourse and that made the pain worse she thought about coming back then but decided to wait it out took the vicodin as well as OTC meds but the pain has persisted and now is worse and radiating down her l leg, her leg is giving out 2/2 pain, and now she has a frontal AL too no fever no recent surgery dental work no IVDA no numbness no weakness except 2/2 pain denies saddle anesthesia 45th ER visit since started this EMR in 2012 Review of Systems Constitutional: denies: Fever Respiratory: denies: Dyspnea, Cough GI: denies: Abdominal Pain : denies: Now EGA Musculoskeletal: reports: Back pain, Extremity pain Neurologic: reports: Focal weakness, Numbness Endocrine: denies: Easy bruising / bleeding Immunocompromised: denies: Immunocompromised PD PAST MEDICAL HISTORY - Past Medical History Cardiovascular: Murmur Respiratory: Asthma Neuro: None Endocrine/Autoimmune: None GI: Hemorrhoids, Other 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 : None HEENT: None Psych: Anxiety, Post traumatic stress disorder Musculoskeletal: Scoliosis Derm: None - Past Surgical History Past Surgical History: Yes Ortho: Shoulder arthroplasty Cardiovascular: Other - Present Medications Home Medications: Ambulatory Orders Medication Instructions Recorded Confirmed HYDROcod/ACETAM 5/325 [[place] 5/325] 1 tab PO Q6H PRN #15 tablet 11/14/16 Ondansetron Odt [Zofran] 4 mg TL Q6H PRN #15 tablet 11/14/16 01/31/17 Albuterol Sulfate [Proair Hfa 2 puffs ORAL PRN PRN 01/02/17 01/31/17 Inhaler] Ondansetron Odt [Zofran Odt] 4 mg TL Q6H PRN #20 tablet 01/02/17 01/31/17 Carisoprodol [Soma] 350 mg PO Q8H PRN #15 tablet 01/31/17 Lidocaine Patch 5% [Lidoderm Patch] 1 each TOP DAILY PRN #10 patch 01/31/17 predniSONE [Deltasone] 20 mg PO [id number] #21 tab 01/31/17 - Allergies Allergies/Adverse Reactions: Allergies Allergy/AdvReac Type Severity Reaction Status Date / Time amoxicillin [Amoxicillin] Allergy Severe throat Verified 01/31/17 16:17 swells Penicillins Allergy Severe Hives Verified 01/31/17 16:17 pertussis vaccine,adsorbed Allergy Severe seizures Verified 01/31/17 16:17 [Pertussis Vaccine,Adsorbed] hydromorphone HCl * Allergy Unknown Verified 01/31/17 16:17 [From Dilaudid] NSAIDS (Non-Steroidal Allergy Nausea Verified 01/31/17 18:15 Anti-Inflamma ciprofloxacin [From Cipro] AdvReac Intermediate Cramps Verified 01/31/17 16:17 oxycodone HCl * AdvReac Mild Nausea Verified 01/31/17 16:17 [From Percocet] diphtheria, pertussis, AdvReac Unknown Verified 01/31/17 16:17 tetanus vacc meperidine HCl * AdvReac Itching Verified 01/31/17 16:17 [From Demerol] - Social History Does the pt smoke?: No Smoking Status: Never smoker Does the pt drink ETOH?: No Does the pt have substance abuse?: No - Immunizations Immunizations are current?: Yes - POLST Patient has POLST: No PD ED PE NORMAL - Vitals Vital signs reviewed: Yes (afebrile) - General General: Alert and oriented X 3, Other (thin) - HEENT HEENT: PERRL - Neck Neck: Supple, no meningeal sign - Cardiac Cardiac: RRR - Respiratory Respiratory: No respiratory distress, Clear bilaterally - Abdomen Abdomen: Soft, Non tender - Back Back: No spinal TTP, Other (no focal spine redness or swelling or warmth) - Derm Derm: Normal color - Extremities Extremities: No deformity - Neuro Neuro: Alert and oriented X 3, No motor deficit, No sensory deficit, Other ( denies saddle anesthesia, neg SLR scot (hurts back not legs) hip flex/knee ext/ foot dorsi plantar all 5/5, great toe ext 4/5 scot, no clonus, patellar DTR 2+/4) Results - Vitals Vitals: Vital Signs - 24 hr 01/31/17 01/31/17 15:40 17:34 Temperature 36.6 C Heart Rate 93 57 L Respiratory 16 16 Rate Blood Pressure 141/79 H 104/77 O2 Saturation 99 99 Oxygen O2 Source Room air PD MEDICAL DECISION MAKING - ED course ED course: reviewed old imaging 01/09/16 sacrum and coccyx - normal 04/04/16 CT AP - osseous structures demonstrate mild degen changes with scot L5 pars defects 01/29 sacrum and coccyx - no acute fx, unchanged from prior 01/29 LS - chronic L5 spondylolysis - without mention of spondylolisthesis based on hx and exam and rad reports seems pt has recurent but chronic back pain now with sciatica, no major new trauma, hx and exam not suggestive of cauda equina or epidural abscess etc, no abd TTP so do not think referred pain, neg UA and HCG 3 days go - do not feel pt has an emergent condition and that she can be dced with outpt fup I took copies of all the imaging to the pt and tried to explain that she does not have a broken back - that the spondylolysis is not new and her pain is not due to an acute fx that this is a chronic defect at this point - she was very angry so the discussion was difficult - she insists that she was told 2 days ago that she had a fx but notes indicate that "chronic findings . . were discussed with pt and her " - due to pt frustration and anger not able to well elaborate for her on difference between spondylolysis and spondylolisthesis and treatment differences etc (ie given stability for nearly a year do not think surgical referral is yet needed etc)- I did clearly explain that i am not saying nothing is wrong, that further outpt work up and imaging such as a MRI might show pathology not visible on plain films - but that MRI will not be able to be done in the ER for this indication and at this time - she asked what might merit an emergent MRI and I explained something like a car crash with a broken neck and paralysis - so pt said she might as well go get in a car crash so she can get the MRI - did find pt info dc instructions that explain spondylolysis and tx fairly well but pt had already left so could not give it to her pt also furious that she got toradol - says it will cause her to develop a urine infection - I explained that her EMR states motrin causes cramps but that we will be happy to update to include all NSAIDS and to change the reaction to kidney infections pt complains that she feels was ignored and not taken seriously in the ER - I explained that i had taken a careful history, done a thorough neuro exam, reviewed two years of prior imaging and txed her with numerous different classes of medications (except narcotics) to ease her pain and that stating she was ignored and not cared for was an inaccurate statement pt left ambulatory Departure - Departure Disposition: Home, Self Care Clinical Impression: Back pain with sciatica, Spondylolysis of lumbar region Condition: Good Instructions: Spondylolysis Spondylolisthesis Ch, ED Neck Back Pain General, ED Sciatica Follow-Up: Mayela Gallardo ARNP [Primary Care Provider] - Prescriptions: Carisoprodol [Soma] 350 mg PO Q8H PRN #15 tablet PRN Reason: muscle spasm Lidocaine Patch 5% [Lidoderm Patch] 1 each TOP DAILY PRN #10 patch PRN Reason: Pain predniSONE [Deltasone] 20 mg PO [id number] #21 tab Comments: I reviewed the radiology read from 2 days ago and no fracture was seen. The pain may be due to an inflamed sciatic nerve I prescribed a tapering course of steroids to decrease inflammation which will ease the back and leg pain. You can also use the lidocaine patches for up to 12 hr a day and the some to relax the muscle spasm every 8 hr. Tylenol ice and heat may help as well. Repeat xrays after 2 days and no new trauma will not be helpful. If the symptoms persist a MRI may be considered but for these symptoms that test is something that your PMD will need to order and will need to be approved by your insurance company i wrote a note to be off work 2 days and no lifting for two weeks Forms: Activity restrictions Discharge Date/Time: 01/31/17 18:16
[2017-01-31] MEDS ORDERED: DEXAMETHASONE 10 MG/ML VIAL PO STA (16:10)
[2017-01-31] MEDS ORDERED: KETOROLAC 60 MG/2 ML VIAL IM STA (16:10)
[2017-01-31] MEDS ORDERED: LIDOCAINE PATCH 5% TOP STA (16:10)
[2017-01-31] MEDS ORDERED: diazePAM 5 MG TABLET PO STA (16:10)
[2017-01-31 17:39] VITALS: BP 104/77
[2017-01-31] MEDS ORDERED: traMADol 50 MG TABLET PO STA (17:40)
[2017-01-31] MEDS ORDERED: ACETAMINOPHEN 500 MG TABLET PO STA (17:59)
== END 2017-01-31 18:16 | disposition home or self-care (01) ==
LOC: ED 15:35
DX: M54.40 Lumbago with sciatica, unspecified side (principal); M43.06 Spondylolysis, lumbar region; J45.909 Unspecified asthma, uncomplicated; R01.1 Cardiac murmur, unspecified
CPT/HCPCS: 96372; 99283; 99284; A9270

== ENCOUNTER 2017-04-25 18:06 | Emergency (ER) | payer MEDICAID ==
[2017-04-25] MEDS ORDERED: MORPHINE 2 MG/ML CARPUJECT IVP STA ×2 (18:46→21:24)
[2017-04-25] MEDS ORDERED: ONDANSETRON 4 MG/2 ML VIAL IVP STA ×2 (18:46→20:12)
--- NOTE | 2017-04-25 18:48 | ED Physician Documentation ---
PD HPI ABD PAIN - Stated complaint Stated Complaint: ABD PX/NAUSEA - Chief complaint Chief Complaint: Abd Pain - History obtained from History obtained from: Patient - History of Present Illness Timing - onset: Other (31-year-old woman, well-known to this emergency department for poorly differentiated abdominal pain with ongoing pelvic pain that worsened today on the right side was seen by her physician and referred in for concern for appendicitis. Pain is different than usual, she says it is sharper. It is associated with nausea but no vomiting. No changes in bowel movements. She has not had a menses in 2 months, she is on Depo-Provera. She has a diagnostic laparoscopy in the past without intervention.) Review of Systems Ten Systems: 10 systems reviewed and negative Constitutional: denies: Fever, Chills Cardiac: denies: Chest pain / pressure, Palpitations Respiratory: denies: Dyspnea, Cough GI: reports: Abdominal Pain, Nausea. 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 : None HEENT: None Psych: Anxiety, Post traumatic stress disorder Musculoskeletal: Scoliosis, Other Derm: None - Past Surgical History Past Surgical History: Yes Ortho: Shoulder arthroplasty Cardiovascular: Other - Present Medications Home Medications: Ambulatory Orders Medication Instructions Recorded Confirmed HYDROcod/ACETAM 5/325 [Gilman 5/325] 1 tab PO Q6H PRN #15 tablet 11/14/16 Ondansetron Odt [Zofran] 4 mg TL Q6H PRN #15 tablet 11/14/16 02/21/17 Albuterol Sulfate [Proair Hfa 2 puffs ORAL PRN PRN 01/02/17 02/21/17 Inhaler] Ondansetron Odt [Zofran Odt] 4 mg TL Q6H PRN #20 tablet 01/02/17 02/21/17 Carisoprodol [Soma] 350 mg PO Q8H PRN #15 tablet 01/31/17 02/21/17 Lidocaine Patch 5% [Lidoderm Patch] 1 each TOP DAILY PRN #10 patch 01/31/1712/29 predniSONE [Deltasone] 20 mg PO [id number] #21 tab 01/31/17 02/21/17 Phenazopyridine HCl [Pyridium] 200 mg PO TID PRN #10 tablet 02/21/17 cephALEXin [Cephalexin] 500 mg PO TID #20 tablet 02/21/17 - Allergies Allergies/Adverse Reactions: Allergies Allergy/AdvReac Type Severity Reaction Status Date / Time amoxicillin [Amoxicillin] Allergy Severe throat Verified 04/25/17 18:28 swells Penicillins Allergy Severe Hives Verified 04/25/17 18:28 pertussis vaccine,adsorbed Allergy Severe seizures Verified 04/25/17 18:28 [Pertussis Vaccine,Adsorbed] hydromorphone HCl * Allergy Unknown Verified 04/25/17 18:28 [From Dilaudid] NSAIDS (Non-Steroidal Allergy Nausea Verified 04/25/17 18:28 Anti-Inflamma ciprofloxacin [From Cipro] AdvReac Intermediate Cramps Verified 04/25/17 18:28 oxycodone HCl * AdvReac Mild Nausea Verified 04/25/17 18:28 [From Percocet] diphtheria, pertussis, AdvReac Unknown Verified 04/25/17 18:28 tetanus vacc meperidine HCl * AdvReac Itching Verified 04/25/17 18:28 [From Demerol] - Social History Does the pt smoke?: No Smoking Status: Never smoker Does the pt drink ETOH?: No Does the pt have substance abuse?: No - Immunizations Immunizations are current?: Yes - POLST Patient has POLST: No PD ED PE NORMAL - Vitals Vital signs reviewed: Yes - General General: Alert and oriented X 3, No acute distress - HEENT HEENT: PERRL, EOMI - Neck Neck: Supple, no meningeal sign, No bony TTP - Cardiac Cardiac: RRR, No murmur - Respiratory Respiratory: No respiratory distress, Clear bilaterally - Abdomen Abdomen: Normal bowel sounds, Soft, Other (Mild right-sided diffuse tenderness without surgical signs, also some CVA tenderness.) - Derm Derm: Normal color, Warm and dry - Extremities Extremities: No edema, No calf tenderness / cord - Neuro Neuro: Alert and oriented X 3, Normal speech Results - Vitals Vitals: Vital Signs - 24 hr 04/25/17 04/25/17 04/25/17 18:23 19:46 21:22 Temperature 37.1 C 36.7 C 36.6 C Heart Rate 94 65 65 Respiratory 18 14 18 Rate Blood Pressure 117/77 113/69 111/59 L O2 Saturation 99 100 99 Oxygen O2 Source Room air - Labs Labs: Laboratory Tests 04/25/17 04/25/17 04/25/17 18:42 18:42 20:14 WBC 7.8 RBC 4.45 Hgb 12.8 Hct 38.4 MCV 86.3 MCH 28.8 MCHC 33.4 RDW 12.4 Plt Count 321 MPV 8.9 Neut # 3.9 Lymph # 3.0 [place] # 0.6 Eos # 0.2 Baso # 0.1 Absolute Nucleated RBC 0.01 Nucleated RBC % 0.1 Sodium 138 Potassium 3.4 L Chloride 105 Carbon Dioxide 24 Anion Gap 9.0 BUN 10 Creatinine 0.7 Estimated GFR (MDRD) 97 Glucose 116 H Calcium 9.4 Total Bilirubin 0.5 AST 21 ALT 13 Alkaline Phosphatase 42 Total Protein 8.3 H Albumin 4.8 Globulin 3.5 Albumin/Globulin Ratio 1.4 Lipase 22 Urine Color YELLOW Urine Clarity CLEAR Urine pH 6.0 Ur Specific [place] 1.025 Urine Protein NEGATIVE Urine Glucose (UA) NEGATIVE Urine Ketones NEGATIVE Urine Occult Blood TRACE-INTA Urine Nitrite NEGATIVE Urine Bilirubin NEGATIVE Urine Urobilinogen 0.2 (NORMAL) Ur Leukocyte Esterase NEGATIVE Ur Microscopic Review NOT INDICATED Urine Culture Comments NOT INDICATED Urine HCG, Qual NEGATIVE - Rads (name of study) CT A/P Radiology: EMP read contemporaneously (Normal appendix, no acute findings) PD MEDICAL DECISION MAKING - ED course ED course: 31-year-old woman with frequent, usually unexplained abdominal pain presents with right lower quadrant pain she she says is a little different than her usual abdominal pain. Concern for appendicitis specifically and workup was undertaken and negative for same. Departure - Departure Disposition: 01 Home, Self Care Clinical Impression: Abdominal pain Qualifiers: Abdominal location: right lower quadrant Qualified Code(s): R10.31 - Right lower quadrant pain Condition: Good Record reviewed to determine appropriate education?: Yes Instructions: ED Pelvic Pain [facility] Comments: Call your doctor to arrange a follow-up appointment, make the next available appointment. In the interim, return anytime if worse or if new symptoms develop.
[2017-04-25 19:01] LABS: BASOPHILS # (AUTO) 0.1 10^3/uL (0.0-0.1); EOSINOPHILS # (AUTO) 0.2 10^3/uL (0.0-0.7); EOSINOPHILS % (AUTO) 2.8 %; HGB - HEMOGLOBIN 12.8 g/dL (12.0-16.0); LYMPHOCYTES % (AUTO) 38.7 %; MEAN CORPUSCULAR HEMOGLOBIN 28.8 pg (27.0-31.0); MEAN CORPUSCULAR HGB CONC 33.4 g/dL (32.0-36.0); MEAN CORPUSCULAR VOLUME 86.3 fL (81.0-99.0); MEAN PLATELET VOLUME 8.9 fL (7.9-10.8); MONOCYTES # (AUTO) 0.6 10^3/uL (0.0-1.0); MONOCYTES % (AUTO) 7.3 %; NEUTROPHILS # (AUTO) 3.9 10^3/uL (1.5-6.6); NEUTROPHILS % (AUTO) 50.2 %; PLT - PLATELET COUNT 321 10^3/uL (130-450); RED BLOOD COUNT 4.45 10^6/uL (4.20-5.40); RED CELL DISTRIBUTION WIDTH 12.4 % (12.0-15.0); WHITE BLOOD COUNT 7.8 x10^3/uL (4.8-10.8)
[2017-04-25 19:09] LABS: ALBUMIN 4.8 g/dL (3.2-5.5); ALBUMIN/GLOBULIN RATIO 1.4 (1.0-2.2); BILIRUBIN,TOTAL 0.5 mg/dL (0.2-1.0); CALCIUM 9.4 mg/dL (8.5-10.3); CREATININE 0.7 mg/dL (0.4-1.0); TOTAL PROTEIN 8.3 g/dL (6.7-8.2)
[2017-04-25] MEDS ORDERED: SODIUM CHLORIDE 0.9% 1,000 ML IV ONE (19:20)
[2017-04-25] MEDS ORDERED: IOPAMIDOL-300 100 ML VIAL ONE (20:16)
[2017-04-25 20:19] LABS: BILIRUBIN,URINE NEGATIVE (NEGATIVE); GLUCOSE, URINE (UA) NEGATIVE (NEGATIVE); KETONES,URINE (UA) NEGATIVE (NEGATIVE); LEUKOCYTE ESTERASE, URINE NEGATIVE (NEGATIVE); NITRITE,URINE NEGATIVE (NEGATIVE); OCCULT BLOOD,URINE TRACE-INTA (NEGATIVE); PROTEIN,URINE NEGATIVE (NEGATIVE); UROBILINOGEN,URINE 0.2 (NORMAL) E.U./dL (NORMAL)
[2017-04-25 20:21] LABS: CLARITY,URINE CLEAR (CLEAR); HCG UR QUAL NEGATIVE
[2017-04-25] MEDS ORDERED: IOPAMIDOL-300 100 ML VIAL IVP ONE (20:45)
--- NOTE | 2017-04-25 21:09 | CT Preliminary Report ---
Exam: CT ABDOMEN/PELVIS W/ IMPRESSION: 1. Normal appendix. 2. No acute findings. 3. Chronic bilateral L5 pars defects with mild anterolisthesis of L5 on S1, unchanged. 4. Otherwise, as above. [facility] SITE ID: [id number]
--- NOTE | 2017-04-25 21:10 | CT Report ---
EXAM: CT ABDOMEN AND PELVIS EXAM DATE: 04/25/2017 08:30 PM. CLINICAL HISTORY: Right lower quadrant pain. COMPARISONS: CT abdomen and pelvis 04/03/2016. TECHNIQUE: Routine helical CT imaging was performed through the abdomen and pelvis. IV contrast: 100 ML ISOVUE 300. Enteric contrast: No. Reconstructions: Coronal and sagittal. In accordance with CT protocol optimization, one or more of the following dose reduction techniques w ere utilized for this exam: automated exposure control, adjustment of mA and/or KV based on patient s ize, or use of iterative reconstructive technique. FINDINGS: 3 mm left lower lobe lateral pulmonary nodule, unchanged with almost 1 year of stability, m ost likely benign. Liver: Within normal limits. Gallbladder: Unremarkable. Bile ducts: Unremarkable. Pancreas: Unremarkable. Spleen: Unremarkable. Adrenals: Unremarkable. Kidneys: Couple of low-density masses at the upper pole left kidney, the largest measures 1.3 cm most suggestive for a renal cyst. Tiny nonspecific low density lesion seen lower pole right kidney. No hy dronephrosis. Bowel: Normal appendix. No acute bowel findings are seen. No free fluid or free air. Pelvis: The uterus is anteverted. The bladder is unremarkable. Vascular structures: No acute findings. Bones: Chronic bilateral L5 pars defects with mild anterolisthesis of L5 on S1, unchanged. IMPRESSION: 1. Normal appendix. 2. No acute findings. 3. Chronic bilateral L5 pars defects with mild anterolisthesis of L5 on S1, unchanged. 4. Otherwise, as above. [facility] Referring Provider Line: [phone] SITE ID: [id number]
[2017-04-25 21:24] VITALS: BP 111/59
[2017-04-25] MEDS ORDERED: PROMETHAZINE INJ 25 MG in SODIUM CHLORIDE 0.9% 50 ML IV STA (21:25)
[2017-04-25] MEDS ORDERED: HYDROcod/ACET 5/325 Prepack 4 PO STA (21:25)
== END 2017-04-25 22:09 | disposition home or self-care (01) ==
LOC: ED 18:06
DX: R10.31 Right lower quadrant pain (principal); J45.909 Unspecified asthma, uncomplicated
CPT/HCPCS: 36415; 74177; 80053; 81003; 81025; 83690; 85025; 96361; 96365; 96375; 96376; 99283; J7040; Q9967; 81001; 87086

== ENCOUNTER 2017-05-14 12:29 | Outpatient (CLI) | payer MEDICAID ==
--- NOTE | 2017-05-14 13:27 | MRI Report ---
EXAM: MRI LUMBAR SPINE WITHOUT CONTRAST EXAM DATE: 05/14/2017 01:06 PM. CLINICAL HISTORY: LOW BACK PAIN. COMPARISON: Lumbar radiograph/. TECHNIQUE: Multiplanar, multisequence T1-weighted and fluid-sensitive sequences of the lumbar spine f rom T12 to S1 without contrast. Other: None. FINDINGS: Spinal Cord: The conus terminates at L1-L2. The conus medullaris and cauda equina are unremarkable. Alignment: There is 2 mm a grade 1 anterolisthesis of L5 on S1. Bone Marrow: Five [id number] lumbar vertebral bodies are assumed. No gross fractures or bone les ions. No bone marrow edema. Disk Levels/Facets: T12-L1: Unremarkable. L1-L2: Unremarkable. L2-L3: Unremarkable. L3-L4: Unremarkable. L4-L5: There is a small left paracentral to foraminal disk protrusion. There is effacement of the lef t lateral recess with potential contact of the traversing left L5 nerve root. There is mild left neur al foraminal narrowing. L5-S1: Uncovering of the endplate. Small posterior disk bulge eccentric to the left. Bilateral arthri tic facet disease. Effacement of lateral recesses with potential contact of the traversing left S1 ne rve root. Mild to moderate bilateral neural foraminal narrowing. Musculature: Normal. No edema or fatty atrophy. Other: The partially visualized retroperitoneum is unremarkable. IMPRESSION: 1. There is 2 mm a grade 1 anterolisthesis of L5 on S1. 2. At L4-L5: Effacement of the left lateral recess with potential contact of the traversing left L5 n erve root. There is mild left neural foraminal narrowing. 3. At L5-S1: Effacement of lateral recesses with potential contact of the traversing left S1 nerve ro ot. Mild to moderate bilateral neural foraminal narrowing Comment: The following findings are so common in adults without low back pain that while we report th eir presence, they must be interpreted with caution and in the context of the clinical situation. (Re olamide Stokes et al, Spine 2001) Prevalence of findings in patients without low back pain: Disk degeneration (any evidence): 92% Disk desiccation/T2 signal loss: 83% Disk height loss: 56% Disk bulge: 64% Disk protrusion: 32% Annular tear/high intensity zone: 38% [facility] Referring Provider Line: [phone] SITE ID: [id number]
== END 2017-05-14 12:30 | disposition home or self-care (01) ==
LOC: DI 12:29
PROVIDERS: ATTEND Physician Assistant Medical
DX: M51.26 Other intervertebral disc displacement, lumbar region (principal); M51.37 Other intervertebral disc degeneration, lumbosacral region; M47.897 Other spondylosis, lumbosacral region; M43.17 Spondylolisthesis, lumbosacral region
CPT/HCPCS: 72148

== ENCOUNTER 2017-10-09 12:28 | Emergency (ER) | payer MEDICAID ==
[2017-10-09 12:36] VITALS: BP 118/70
[2017-10-09 12:58] LABS: BASOPHILS % (AUTO) 0.1 %; HGB - HEMOGLOBIN 12.8 g/dL (12.0-16.0); LYMPHOCYTES % (AUTO) 5.6 %; MEAN CORPUSCULAR HEMOGLOBIN 30.6 pg (27.0-31.0); MEAN CORPUSCULAR HGB CONC 34.6 g/dL (32.0-36.0); MEAN CORPUSCULAR VOLUME 88.5 fL (81.0-99.0); MEAN PLATELET VOLUME 8.7 fL (7.9-10.8); MONOCYTES % (AUTO) 4.1 %; NEUTROPHILS % (AUTO) 90.2 %; PLT - PLATELET COUNT 361 10^3/uL (130-450); RED BLOOD COUNT 4.19 10^6/uL (4.20-5.40); RED CELL DISTRIBUTION WIDTH 12.1 % (12.0-15.0); WHITE BLOOD COUNT 25.4 x10^3/uL (4.8-10.8)
[2017-10-09 13:09] LABS: ALBUMIN/GLOBULIN RATIO 1.4 (1.0-2.2); CALCIUM 9.7 mg/dL (8.5-10.3); CREATININE 0.9 mg/dL (0.4-1.0); TOTAL PROTEIN 8.5 g/dL (6.7-8.2)
[2017-10-09 13:14] LABS: ABNORMAL LYMPHS % (MANUAL) 0 %
[2017-10-09 13:18] LABS: BAND NEUTROPHILS % (MANUAL) 2 %; DIFFERENTIAL COMMENT MANUAL DIFFERENTIAL; LYMPHOCYTES # (MANUAL) 2.8 10^3/uL (1.5-3.5); LYMPHOCYTES % (MANUAL) 11 %; MONOCYTES # (MANUAL) 1.3 10^3/uL (0.0-1.0); NEUTROPHILS # (MANUAL) 21.3 10^3/uL (1.5-6.6); NEUTROPHILS % (MANUAL) 82 %; PLATELET ESTIMATE, MANUAL NORMAL (130-450,000) (NORMAL); PLATELET MORPHOLOGY NORMAL APPEARANCE (NORMAL); RBC MORPHOLOGY (MULTIPLE) NORMAL APPEARANCE (NORMAL)
== END 2017-10-09 14:25 | disposition left against medical advice (07) ==
LOC: ED 12:28
DX: Z53.21 Procedure and treatment not carried out due to patient leaving prior to being seen by health care provider (principal)
CPT/HCPCS: 36415; 80053; 83690; 85025

== ENCOUNTER 2017-10-09 19:21 | Outpatient (CLI) | payer MEDICAID | END 2017-10-09 19:22 | disposition critical access hospital (66) | LOC: EMS 19:21 | PROVIDERS: ATTEND Surgery | DX: R10.10 Upper abdominal pain, unspecified (principal); R19.7 Diarrhea, unspecified; R11.0 Nausea | CPT/HCPCS: A0425; A0429; A0999 ==

== ENCOUNTER 2017-10-09 19:42 | Emergency (ER) | payer MEDICAID ==
[2017-10-09 21:02] LABS: BASOPHILS % (AUTO) 0.1 %; LYMPHOCYTES % (AUTO) 4.1 %; MEAN CORPUSCULAR HEMOGLOBIN 30.8 pg (27.0-31.0); MEAN CORPUSCULAR HGB CONC 34.6 g/dL (32.0-36.0); MEAN CORPUSCULAR VOLUME 88.9 fL (81.0-99.0); MEAN PLATELET VOLUME 8.6 fL (7.9-10.8); MONOCYTES % (AUTO) 3.6 %; NEUTROPHILS % (AUTO) 92.2 %; PLT - PLATELET COUNT 305 10^3/uL (130-450); RED BLOOD COUNT 4.22 10^6/uL (4.20-5.40); RED CELL DISTRIBUTION WIDTH 11.8 % (12.0-15.0); WHITE BLOOD COUNT 22.6 x10^3/uL (4.8-10.8)
[2017-10-09 21:04] LABS: ABNORMAL LYMPHS % (MANUAL) 0 %; BAND NEUTROPHILS % (MANUAL) 0 %
[2017-10-09 21:16] LABS: ALBUMIN 5.3 g/dL (3.2-5.5); ALBUMIN/GLOBULIN RATIO 1.5 (1.0-2.2); BILIRUBIN,TOTAL 0.6 mg/dL (0.2-1.0); CALCIUM 9.7 mg/dL (8.5-10.3); CREATININE 0.9 mg/dL (0.4-1.0); TOTAL PROTEIN 8.8 g/dL (6.7-8.2)
[2017-10-09 21:18] LABS: LYMPHOCYTES # (MANUAL) 0.2 10^3/uL (1.5-3.5); LYMPHOCYTES % (MANUAL) 1 %; MONOCYTES # (MANUAL) 1.4 10^3/uL (0.0-1.0); NEUTROPHILS % (MANUAL) 93 %
[2017-10-09 21:19] LABS: DIFFERENTIAL COMMENT MANUAL DIFFERENTIAL; PLATELET ESTIMATE, MANUAL NORMAL (130-450,000) (NORMAL); PLATELET MORPHOLOGY NORMAL APPEARANCE (NORMAL); RBC MORPHOLOGY (MULTIPLE) NORMAL APPEARANCE (NORMAL)
[2017-10-09 22:03] VITALS: BP 133/85
[2017-10-09 22:07] LABS: BILIRUBIN,URINE NEGATIVE (NEGATIVE); GLUCOSE, URINE (UA) NEGATIVE (NEGATIVE); KETONES,URINE (UA) NEGATIVE (NEGATIVE); LEUKOCYTE ESTERASE, URINE NEGATIVE (NEGATIVE); NITRITE,URINE NEGATIVE (NEGATIVE); OCCULT BLOOD,URINE SMALL (NEGATIVE); PROTEIN,URINE 100 mg/dL (NEGATIVE); UROBILINOGEN,URINE 0.2 (NORMAL) E.U./dL (NORMAL)
[2017-10-09 22:11] LABS: CLARITY,URINE CLEAR (CLEAR); HCG UR QUAL NEGATIVE
[2017-10-09 22:21] LABS: BACTERIA,URINE None Seen /HPF (None Seen); MUCUS,URINE Moderate Strands; SQUAMOUS EPITHELIAL CELL,UR FEW Squamous (<= Few)
== END 2017-10-09 23:00 | disposition left against medical advice (07) ==
LOC: EDUNIT# → ED 19:42 → SUPCPDRO 19:42 → ED 23:00
DX: Z53.21 Procedure and treatment not carried out due to patient leaving prior to being seen by health care provider (principal)
CPT/HCPCS: 36415; 80053; 81001; 81003; 81025; 83690; 85025; 87086; 99281

== ENCOUNTER 2017-11-25 11:18 | Outpatient (CLI) | payer MEDICAID ==
--- NOTE | 2017-11-25 17:00 | Ultrasound Report ---
Reason: ABDOMINAL PAIN,RIGHT UPPER QUADRANT Procedure Date: 11/25/2017 Accession Number: [id number] / [id number] Procedure: US - Abdomen Limited CPT Code: FULL RESULT: EXAM: ABDOMEN ULTRASOUND LIMITED, RUQ EXAM DATE: 11/25/2017 11:50 AM. CLINICAL HISTORY: ABDOMINAL PAIN,RIGHT UPPER QUADRANT. COMPARISON: None. TECHNIQUE: Real-time scanning was performed with static images obtained. FINDINGS: Liver: Normal in size and echotexture. 13.4 cm. Main portal vein flow: Hepatopetal. Gallbladder: Neck not well seen. No stones, wall thickening, or sonographic Noguera's sign. Biliary System: CBD measures 4.1 mm. No intrahepatic or extrahepatic ductal dilatation. Free fluid: None. Right kidney: 10.5 cm longitudinally. Unremarkable. IMPRESSION: Negative. No cholelithiasis or cholecystitis. [facility]
== END 2017-11-25 11:19 | disposition home or self-care (01) ==
LOC: DI 11:18
PROVIDERS: ATTEND Physician Assistant Medical
DX: R10.11 Right upper quadrant pain (principal)
CPT/HCPCS: 76705

== ENCOUNTER 2017-12-20 15:27 | Outpatient (CLI) | payer MEDICAID | END 2017-12-20 15:28 | disposition critical access hospital (66) | LOC: EMS 15:27 | PROVIDERS: ATTEND Surgery | DX: R11.2 Nausea with vomiting, unspecified (principal); R10.10 Upper abdominal pain, unspecified | CPT/HCPCS: A0425; A0427; A0999 ==

== ENCOUNTER 2017-12-20 15:49 | Emergency (ER) | payer MEDICAID ==
[2017-12-20] MEDS ORDERED: SODIUM CHLORIDE 0.9% 1,000 ML IV STA (16:06)
[2017-12-20] MEDS ORDERED: ONDANSETRON 4 MG/2 ML VIAL IVP STA (16:06)
[2017-12-20] MEDS ORDERED: FOLIC ACID INJ 1 MG, THIAMINE INJ 100 MG, MAGNESIUM SULFATE 2 GM, MULTIVITAMIN 10 ML in... IV STA ×5 (16:12)
[2017-12-20] MEDS ORDERED: HYOSCYAMINE SL 0.125 MG TABLET SL STA (16:12)
[2017-12-20] MEDS ORDERED: PANTOPRAZOLE 40 MG VIAL IVP STA (16:12)
[2017-12-20] MEDS ORDERED: PROMETHAZINE INJ 25 MG in SODIUM CHLORIDE 0.9% 50 ML IV STA (16:12)
--- NOTE | 2017-12-20 16:17 | ED Physician Documentation ---
History of Present Illness - Stated complaint Stated Complaint: EPIGASTRIC PAIN THIS AM - Chief complaint Chief Complaint: Abd Pain - History obtained from History obtained from: Patient - History of Present Illness Timing: Today Pain level max: 8 Pain level now: 8 Improved by: nothing Worsened by: eating - Additonal information Additional information: 32-year-old female who presents to the emergency department with epigastric abdominal pain and vomiting. Had been managed well at home with Zofran and lidocaine. States today she is vomiting uncontrollably. States she believes it is related to gluten and ate gluten last night. 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 - Past Surgical History Past Surgical History: Yes Ortho: Shoulder arthroplasty Cardiovascular: Other - Present Medications Home Medications: Ambulatory Orders Medication Instructions Recorded Confirmed Ondansetron Odt [Zofran Odt] 4 mg TL Q6H PRN #20 tablet 01/02/17 02/21/17 Lidocaine Patch 5% [Lidoderm Patch] 1 each TOP DAILY PRN #10 patch 01/31/17 02/21/17 - Allergies Allergies/Adverse Reactions: Allergies Allergy/AdvReac Type Severity Reaction Status Date / Time amoxicillin [Amoxicillin] Allergy Severe throat Verified 12/20/17 15:56 swells Penicillins Allergy Severe Hives Verified 12/20/17 15:56 pertussis vaccine,adsorbed Allergy Severe seizures Verified 12/20/17 15:56 [Pertussis Vaccine,Adsorbed] hydromorphone HCl * Allergy Unknown Verified 12/20/17 15:56 [From Dilaudid] NSAIDS (Non-Steroidal Allergy Nausea Verified 12/20/17 15:56 Anti-Inflamma ciprofloxacin [From Cipro] AdvReac Intermediate Cramps Verified 12/20/17 15:56 oxycodone HCl * AdvReac Mild Nausea Verified 12/20/17 15:56 [From Percocet] diphtheria, pertussis, AdvReac Unknown Verified 12/20/17 15:56 tetanus vacc meperidine HCl * AdvReac Itching Verified 12/20/17 15:56 [From Demerol] - Social History Does the pt smoke?: No Smoking Status: Never smoker Does the pt drink ETOH?: No Does the pt have substance abuse?: No - Immunizations Immunizations are current?: Yes - POLST Patient has POLST: No PD ED PE NORMAL - Vitals Vital signs reviewed: Yes - General General: Alert and oriented X 3, No acute distress - HEENT HEENT: PERRL, Ears normal, Moist mucous membranes, Pharynx benign - Neck Neck: Supple, no meningeal sign - Cardiac Cardiac: RRR, Strong equal pulses - Respiratory Respiratory: No respiratory distress, Clear bilaterally - Abdomen Abdomen: Soft, Non tender, Non distended - Back Back: No spinal TTP - Derm Derm: Warm and dry - Extremities Extremities: No edema - Neuro Neuro: Alert and oriented X 3 - Psych Psych: Normal mood Results - Vitals Vitals: Vital Signs - 24 hr 12/20/17 12/20/17 15:54 18:17 Temperature 36.5 C Heart Rate 57 L 55 L Respiratory 16 14 Rate Blood Pressure 115/69 114/71 O2 Saturation 100 98 Oxygen O2 Source Room air - Labs Labs: Laboratory Tests 12/20/17 12/20/17 12/20/17 16:40 16:40 17:42 WBC 15.8 H RBC 3.74 L Hgb 11.4 L Hct 33.2 L MCV 88.8 MCH 30.6 MCHC 34.5 RDW 11.9 L Plt Count 305 MPV 8.9 Neut # (Auto) 14.0 H Lymph # (Auto) 1.1 L [place] # (Auto) 0.7 Eos # (Auto) 0.0 Baso # (Auto) 0.0 Absolute Nucleated RBC 0.01 Nucleated RBC % 0.1 Sodium 140 Potassium 3.5 Chloride 107 Carbon Dioxide 23 Anion Gap 10.0 BUN 13 Creatinine 0.7 Estimated GFR (MDRD) 96 Glucose 140 H Calcium 8.8 Total Bilirubin 0.5 AST 22 ALT 17 Alkaline Phosphatase 37 L Total Protein 7.0 Albumin 4.3 Globulin 2.7 Albumin/Globulin Ratio 1.6 Lipase 24 Urine Color YELLOW Urine Clarity CLEAR Urine pH 7.0 Ur Specific [place] 1.025 Urine Protein NEGATIVE Urine Glucose (UA) NEGATIVE Urine Ketones NEGATIVE Urine Occult Blood NEGATIVE Urine Nitrite NEGATIVE Urine Bilirubin NEGATIVE Urine Urobilinogen 0.2 (NORMAL) Ur Leukocyte Esterase TRACE H Urine RBC 6-10 H Urine WBC 6-10 H Ur Squamous Epith Cells MOD Squamous H Urine Bacteria None Seen Ur Microscopic Review INDICATED Urine Culture Comments NOT INDICATED Urine HCG, Qual NEGATIVE PD MEDICAL DECISION MAKING - ED course Complexity details: reviewed old records, reviewed results, re-evaluated patient, considered differential, d/w patient ED course: Patient is a 32-year-old female who presents to the emergency department with abdominal pain and vomiting today. Unclear etiology, but this is a chronic ongoing issue for her. She feels better after medications including Haldol, morphine, Phenergan, Zofran. Also given IV fluids. She is tolerating p.o. w ithout difficulty. We will have her follow-up with her doctor for further evaluation and care. Patient counseled regarding signs and symptoms for which I believe and urgent re-evaluation would be necessary. Patient with good understanding of and agreement to plan and is comfortable going home at this time This document was made in part using voice recognition software. While efforts are made to proofread this document, sound alike and grammatical errors may occur. Departure - Departure Disposition: 01 Home, Self Care Clinical Impression: Vomiting Qualifiers: Vomiting type: unspecified Vomiting Intractability: non-intractable Nausea p resence: with nausea Qualified Code(s): R11.2 - Nausea with vomiting, unspecified Condition: Good Instructions: ED Nausea Vomiting Follow-Up: Mina Hobson PA-C [Primary Care Provider] - Within 1 week Comments: Return if you worsen. Go home and rest today.
[2017-12-20 16:54] LABS: BASOPHILS % (AUTO) 0.2 %; HGB - HEMOGLOBIN 11.4 g/dL (12.0-16.0); LYMPHOCYTES # (AUTO) 1.1 10^3/uL (1.5-3.5); LYMPHOCYTES % (AUTO) 6.7 %; MEAN CORPUSCULAR HEMOGLOBIN 30.6 pg (27.0-31.0); MEAN CORPUSCULAR HGB CONC 34.5 g/dL (32.0-36.0); MEAN CORPUSCULAR VOLUME 88.8 fL (81.0-99.0); MEAN PLATELET VOLUME 8.9 fL (7.9-10.8); MONOCYTES # (AUTO) 0.7 10^3/uL (0.0-1.0); MONOCYTES % (AUTO) 4.3 %; NEUTROPHILS % (AUTO) 88.8 %; PLT - PLATELET COUNT 305 10^3/uL (130-450); RED BLOOD COUNT 3.74 10^6/uL (4.20-5.40); RED CELL DISTRIBUTION WIDTH 11.9 % (12.0-15.0); WHITE BLOOD COUNT 15.8 x10^3/uL (4.8-10.8)
[2017-12-20 16:57] LABS: ALBUMIN 4.3 g/dL (3.2-5.5); ALBUMIN/GLOBULIN RATIO 1.6 (1.0-2.2); BILIRUBIN,TOTAL 0.5 mg/dL (0.2-1.0); CALCIUM 8.8 mg/dL (8.5-10.3); CREATININE 0.7 mg/dL (0.4-1.0)
[2017-12-20] MEDS ORDERED: MORPHINE 10 MG/ML VIAL IVP STA (17:04)
[2017-12-20 17:46] LABS: BILIRUBIN,URINE NEGATIVE (NEGATIVE); GLUCOSE, URINE (UA) NEGATIVE (NEGATIVE); KETONES,URINE (UA) NEGATIVE (NEGATIVE); LEUKOCYTE ESTERASE, URINE TRACE (NEGATIVE); NITRITE,URINE NEGATIVE (NEGATIVE); OCCULT BLOOD,URINE NEGATIVE (NEGATIVE); PROTEIN,URINE NEGATIVE (NEGATIVE); UROBILINOGEN,URINE 0.2 (NORMAL) E.U./dL (NORMAL)
[2017-12-20 17:54] LABS: CLARITY,URINE CLEAR (CLEAR); HCG UR QUAL NEGATIVE
[2017-12-20 17:55] LABS: BACTERIA,URINE None Seen /HPF (None Seen); SQUAMOUS EPITHELIAL CELL,UR MOD Squamous (<= Few)
[2017-12-20] MEDS ORDERED: HALOPERIDOL 5 MG/ML VIAL IVP STA (18:11)
[2017-12-20 19:25] VITALS: BP 120/64
== END 2017-12-20 19:44 | disposition home or self-care (01) ==
LOC: EDUNIT# → ED 15:49
DX: R11.2 Nausea with vomiting, unspecified (principal); R10.13 Epigastric pain
CPT/HCPCS: 36415; 80053; 81001; 81025; 83690; 85025; 96365; 96367; 96375; 99283; 99284; A9270; J3411; J7040; 81003; 87086

== ENCOUNTER 2018-02-15 09:05 | Outpatient (CLI) | payer MEDICAID ==
[2018-02-15] MEDS ORDERED: IOVERSOL 320 50 ML VIAL ONE (13:23)
[2018-02-15] MEDS ORDERED: IOVERSOL 320 100 ML VIAL IVP ONE (13:23)
--- NOTE | 2018-02-18 10:24 | Ultrasound Report ---
Reason: LLQ PAIN Procedure Date: 02/15/2018 Accession Number: [id number] / [id number] Procedure: US - Pelvic Limited or F/U CPT Code: FULL RESULT: EXAM: PELVIS ULTRASOUND, LIMITED EXAM DATE: 02/15/2018 09:25 AM. CLINICAL HISTORY: LLQ PAIN. COMPARISON: ABDOMEN LIMITED 11/25/2017 11:50 AM. TECHNIQUE: Real-time scanning was performed with static images obtained. FINDINGS: No mass, adenopathy or collection noted in the area of concern. Images were acquired without Valsalva technique. Given these limitations, no large hernia identified. IMPRESSION: 1. No mass, collection or adenopathy identified. 2. No large hernia. Comment: Images acquired without Valsalva technique. [facility]
== END 2018-02-15 09:06 | disposition home or self-care (01) ==
LOC: DI 09:05
PROVIDERS: ATTEND Physician Assistant Medical
DX: R10.32 Left lower quadrant pain (principal)
CPT/HCPCS: 76857; Q9967

== ENCOUNTER 2018-02-26 15:48 | Outpatient (CLI) | payer MEDICAID ==
--- NOTE | 2018-02-26 23:56 | XRAY Report ---
Reason: SOB Procedure Date: 02/26/2018 Accession Number: [id number] / [id number] Procedure: XRN - Chest 2 View X-Ray CPT Code: 75501 FULL RESULT: EXAM: CHEST RADIOGRAPHY EXAM DATE: 02/26/2018 04:02 PM. CLINICAL HISTORY: Shortness of breath. COMPARISON: XR CHEST PA AND LAT 02/07/2009 10:09 PM. TECHNIQUE: 2 views. FINDINGS: Lungs/Pleura: No focal opacities evident. No pleural effusion. No pneumothorax. Hyperinflated lungs. Mediastinum: Heart and mediastinal contours are unremarkable. Other: None. IMPRESSION: Hyperinflated lungs. No acute cardiopulmonary disease seen. [facility]
== END 2018-02-26 15:49 | disposition home or self-care (01) ==
LOC: DI.N 15:48
PROVIDERS: ATTEND Nurse Practitioner
DX: R06.02 Shortness of breath (principal)
CPT/HCPCS: 71046

== ENCOUNTER 2018-03-11 08:00 | Outpatient (CLI) | payer MEDICAID ==
[2018-03-11 20:06] LABS: BILIRUBIN,URINE NEGATIVE (NEGATIVE); GLUCOSE, URINE (UA) NEGATIVE (NEGATIVE); KETONES,URINE (UA) NEGATIVE (NEGATIVE); LEUKOCYTE ESTERASE, URINE TRACE (NEGATIVE); NITRITE,URINE NEGATIVE (NEGATIVE); OCCULT BLOOD,URINE MODERATE (NEGATIVE); PH,URINE 5.5 PH (5.0-7.5); PROTEIN,URINE 100 mg/dL (NEGATIVE); UROBILINOGEN,URINE 0.2 (NORMAL) E.U./dL (NORMAL)
[2018-03-11 20:19] LABS: BACTERIA,URINE Rare /HPF (None Seen); CLARITY,URINE CLOUDY (CLEAR); RBC,URINE TNTC /HPF (0-5); SQUAMOUS EPITHELIAL CELL,UR RARE Squamous (<= Few)
== END 2018-03-11 23:59 ==
LOC: LAB.R 08:00
PROVIDERS: ATTEND Physician Assistant Medical
DX: R30.0 Dysuria (principal)
CPT/HCPCS: 81001; 87086

== ENCOUNTER 2018-08-25 10:34 | Outpatient (CLI) | payer MEDICAID | END 2018-08-25 10:35 | disposition critical access hospital (66) | LOC: EMS 10:34 | PROVIDERS: ATTEND Surgery | DX: R11.2 Nausea with vomiting, unspecified (principal); R10.13 Epigastric pain | CPT/HCPCS: A0425; A0427; A0999 ==

== ENCOUNTER 2018-08-25 10:57 | Emergency (ER) | payer MEDICAID ==
[2018-08-25] MEDS ORDERED: ONDANSETRON 4 MG/2 ML VIAL IVP STA (11:50)
[2018-08-25 12:08] LABS: BASOPHILS # (AUTO) 0.1 10^3/uL (0.0-0.1); BASOPHILS % (AUTO) 0.6 %; EOSINOPHILS # (AUTO) 0.1 10^3/uL (0.0-0.7); EOSINOPHILS % (AUTO) 0.8 %; HGB - HEMOGLOBIN 11.8 g/dL (12.0-16.0); LYMPHOCYTES % (AUTO) 11.1 %; MEAN CORPUSCULAR HEMOGLOBIN 30.1 pg (27.0-31.0); MEAN CORPUSCULAR HGB CONC 34.5 g/dL (32.0-36.0); MEAN CORPUSCULAR VOLUME 87.2 fL (81.0-99.0); MEAN PLATELET VOLUME 10.5 fL (7.9-10.8); MONOCYTES # (AUTO) 0.3 10^3/uL (0.0-1.0); MONOCYTES % (AUTO) 2.8 %; NEUTROPHILS # (AUTO) 7.8 10^3/uL (1.5-6.6); NEUTROPHILS % (AUTO) 84.3 %; PLT - PLATELET COUNT 249 10^3/uL (130-450); RED BLOOD COUNT 3.92 10^6/uL (4.20-5.40); WHITE BLOOD COUNT 9.3 x10^3/uL (4.8-10.8)
--- NOTE | 2018-08-25 12:19 | ED Physician Documentation ---
PD HPI ABD PAIN - Stated complaint Stated Complaint: ABD PX - Chief complaint Chief Complaint: Abd Pain - History obtained from History obtained from: Patient - History of Present Illness Timing - onset: Last night Timing - details: Gradual onset Pain level max: 9 Pain level now: 9 Quality: Cramping, Aching Location: Epigastric Radiation: No: Chest, , Lower back, Left flank, Left shoulder, Right flank, Right shoulder Improved by: Vomiting, Other (diarrhea) Worsened by: Eating Associated symptoms: Nausea, Vomiting, Diarrhea. No: Fever, Hematemesis, Constipation, Melena, Hematochezia, Dysuria, Hematuria, Chest pain, Dizzy, Near syncope / syncope, Loss of appetite, Weight loss, Vaginal bleeding - Additional information Additional information: ate pizza last night. states gluten intolerance. 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 HEENT: None Psych: Anxiety, Post traumatic stress disorder Musculoskeletal: Scoliosis, Other Derm: None - Past Surgical History Past Surgical History: Yes Ortho: Shoulder arthroplasty Cardiovascular: Other - Present Medications Home Medications: Ambulatory Orders Medication Instructions Recorded Confirmed Ondansetron Odt [Zofran Odt] 4 mg TL Q6H PRN #20 tablet 01/02/17 02/21/17 Lidocaine Patch 5% [Lidoderm Patch] 1 each TOP DAILY PRN #10 patch 01/31/17 02/21/17 - Allergies Allergies/Adverse Reactions: Allergies Allergy/AdvReac Type Severity Reaction Status Date / Time amoxicillin [Amoxicillin] Allergy Severe throat Verified 08/25/18 11:37 swells Penicillins Allergy Severe Hives Verified 08/25/18 11:37 pertussis vaccine,adsorbed Allergy Severe seizures Verified 08/25/18 11:37 [Pertussis Vaccine,Adsorbed] hydromorphone HCl * Allergy Unknown Verified 08/25/18 11:37 [From Dilaudid] NSAIDS (Non-Steroidal Allergy Nausea Verified 08/25/18 11:37 Anti-Inflamma ciprofloxacin [From Cipro] AdvReac Intermediate Cramps Verified 08/25/18 11:37 oxycodone HCl * AdvReac Mild Nausea Verified 08/25/18 11:37 [From Percocet] diphtheria, pertussis, AdvReac Unknown Verified 08/25/18 11:37 tetanus vacc meperidine HCl * AdvReac Itching Verified 08/25/18 11:37 [From Demerol] - Social History Does the pt smoke?: No Smoking Status: Never smoker Does the pt drink ETOH?: No Does the pt have substance abuse?: No - Immunizations Immunizations are current?: Yes - POLST Patient has POLST: No PD ED PE NORMAL - Vitals Vital signs reviewed: Yes - General General: Alert and oriented X 3, Well developed/nourished, Other (appears uncomfortable) - HEENT HEENT: Moist mucous membranes - Neck Neck: Supple, no meningeal sign - Cardiac Cardiac: RRR, Strong equal pulses - Respiratory Respiratory: No respiratory distress, Clear bilaterally - Abdomen Abdomen: Normal bowel sounds, Soft, Non distended, Other (TTP epigastric. no peritoneal signs.) - Back Back: No CVA TTP, No spinal TTP - Derm Derm: Warm and dry - Extremities Extremities: No edema - Neuro Neuro: Alert and oriented X 3 - Psych Psych: Normal mood, Normal affect Results - Vitals Vitals: Vital Signs - 24 hr 08/25/18 08/25/18 08/25/18 11:02 12:56 15:30 Temperature 36.5 C Heart Rate 45 L 76 76 Respiratory 16 21 16 Rate Blood Pressure 133/73 H 113/66 103/54 L O2 Saturation 100 100 99 Oxygen O2 Source Room air - Labs Labs: Laboratory Tests 08/25/18 08/25/18 12:00 12:00 WBC 9.3 RBC 3.92 L Hgb 11.8 L Hct 34.2 L MCV 87.2 MCH 30.1 MCHC 34.5 RDW 12.0 Plt Count 249 MPV 10.5 Neut # (Auto) 7.8 H Lymph # (Auto) 1.0 L [place] # (Auto) 0.3 Eos # (Auto) 0.1 Baso # (Auto) 0.1 Absolute Nucleated RBC 0.00 Nucleated RBC % 0.0 Sodium 140 Potassium 3.2 L Chloride 106 Carbon Dioxide 22 Anion Gap 12.0 BUN 10 Creatinine 0.8 Estimated GFR (MDRD) 82 L Glucose 149 H Calcium 9.0 Total Bilirubin 0.6 AST 20 ALT 16 Alkaline Phosphatase 47 Total Protein 7.6 Albumin 4.4 Globulin 3.2 Albumin/Globulin Ratio 1.4 Lipase 30 PD MEDICAL DECISION MAKING - ED course Complexity details: reviewed results, re-evaluated patient, considered differential, d/w patient ED course: 33-year-old female with nausea and vomiting. Feels better after IV fluids, Haldol, Phenergan, morphine. Tolerating p.o. without difficulty. We will have her follow-up with her doctor for further care. She is well-appearing, nontoxic. This is similar to her past presentations. Patient counseled regarding signs and symptoms for which I believe and urgent re-evaluation would be necessary. Patient with good understanding of and agreement to plan and is comfortable going home at this time This document was made in part using voice recognition software. While efforts are made to proofread this document, sound alike and grammatical errors may occur. Departure - Departure Disposition: 01 Home, Self Care Clinical Impression: Vomiting Qualifiers: Vomiting type: unspecified Vomiting Intractability: non-intractable Nausea presence: with nausea Qualified Code(s): R11.2 - Nausea with vomiting, unspecified Condition: Good Instructions: ED Nausea Vomiting Follow-Up: Mina Hobson PA-C [Primary Care Provider] - Within 1 week Comments: Return if you worsen. Follow-up with your doctor for further care. Drink plenty of fluids and rest today. Discharge Date/Time: 08/25/18 15:31
[2018-08-25 12:23] LABS: ALBUMIN 4.4 g/dL (3.2-5.5); ALBUMIN/GLOBULIN RATIO 1.4 (1.0-2.2); BILIRUBIN,TOTAL 0.6 mg/dL (0.2-1.0); CREATININE 0.8 mg/dL (0.4-1.0); TOTAL PROTEIN 7.6 g/dL (6.7-8.2)
[2018-08-25] MEDS ORDERED: SODIUM CHLORIDE 0.9% 1,000 ML IV ONE (12:24)
[2018-08-25] MEDS ORDERED: PANTOPRAZOLE 40 MG VIAL IVP STA (12:24)
[2018-08-25] MEDS ORDERED: MORPHINE 2 MG/ML CARPUJECT IVP STA (12:24)
[2018-08-25] MEDS ORDERED: HALOPERIDOL 5 MG/ML VIAL IVP STA (12:24)
[2018-08-25] MEDS ORDERED: HYOSCYAMINE SL 0.125 MG TABLET SL STA (13:41)
[2018-08-25] MEDS ORDERED: HYDROcod/ACETAM 5/325 MG TABLET PO STA (13:41)
[2018-08-25] MEDS ORDERED: PROMETHAZINE 25 MG TABLET PO STA ×2 (13:41→13:46)
[2018-08-25 15:32] VITALS: BP 103/54
== END 2018-08-25 15:31 | disposition home or self-care (01) ==
LOC: EDUNIT# → ED 10:57
DX: R11.2 Nausea with vomiting, unspecified (principal); R10.13 Epigastric pain; R19.7 Diarrhea, unspecified
CPT/HCPCS: 36415; 80053; 83690; 85025; 96361; 96374; 96375; 99283; 99284; A9270; Q0169

== ENCOUNTER 2018-08-29 13:41 | Emergency (ER) | payer MEDICAID ==
--- NOTE | 2018-08-29 13:50 | ED Physician Documentation ---
History of Present Illness - Stated complaint Stated Complaint: ABD PAIN - Chief complaint Chief Complaint: Abd Pain - History obtained from History obtained from: Patient - Additonal information Additional information: Patient is a 33-year-old female with history of gluten allergy presenting with nausea, vomiting, epigastric abdominal pain that began earlier today after she realized she ate soy sauce last night. Patient denies fever, urinary changes, stool changes, acid reflux-like symptoms. Patient was seen here several days ago for similar symptoms with relatively unremarkable work-up. Patient denies alcohol, tobacco, and other illicit drugs. No other improving or worsening factors noted. Review of Systems Constitutional: denies: Fever GI: reports: Abdominal Pain, Nausea, Vomiting. 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 : None HEENT: None Psych: Anxiety, Post traumatic stress disorder Musculoskeletal: Scoliosis, Other Derm: None - Past Surgical History Past Surgical History: Yes Ortho: Shoulder arthroplasty Cardiovascular: Other - Present Medications Home Medications: Ambulatory Orders Medication Instructions Recorded Confirmed RX: Ondansetron Odt [Zofran Odt] 4 mg TL Q6H PRN #20 tablet 01/02/17 02/21/17 RX: Lidocaine Patch 5% [Lidoderm 1 each TOP DAILY PRN #10 patch 01/31/17 02/21/17 Patch] RX: Mag Hydrox/Al Hydrox/Simeth 08/29/18 [Antacid Suspension] - Allergies Allergies/Adverse Reactions: Allergies Allergy/AdvReac Type Severity Reaction Status Date / Time amoxicillin [Amoxicillin] Allergy Severe throat Verified 08/29/18 14:11 swells Penicillins Allergy Severe Hives Verified 08/29/18 14:11 pertussis vaccine,adsorbed Allergy Severe seizures Verified 08/29/18 14:11 [Pertussis Vaccine,Adsorbed] hydromorphone HCl * Allergy Unknown Verified 08/29/18 14:11 [From Dilaudid] NSAIDS (Non-Steroidal Allergy Nausea Verified 08/29/18 14:11 Anti-Inflamma ciprofloxacin [From Cipro] AdvReac Intermediate Cramps Verified 08/29/18 14:11 oxycodone HCl * AdvReac Mild Nausea Verified 08/29/18 14:11 [From Percocet] diphtheria, pertussis, AdvReac Unknown Verified 08/29/18 14:11 tetanus vacc haloperidol [From Haldol] AdvReac Visual Verified 08/29/18 14:11 disturbance meperidine HCl * AdvReac Itching Verified 08/29/18 14:11 [From Demerol] - Social History Does the pt smoke?: No Smoking Status: Never smoker Does the pt drink ETOH?: No Does the pt have substance abuse?: No - Immunizations Immunizations are current?: Yes - POLST Patient has POLST: No PD ED PE NORMAL - Vitals Vital signs reviewed: Yes - General General: Alert and oriented X 3, No acute distress, Well developed/nourished - HEENT HEENT: Atraumatic, Moist mucous membranes, Pharynx benign - Cardiac Cardiac: RRR, No murmur - Respiratory Respiratory: No respiratory distress, Clear bilaterally - Abdomen Abdomen: Normal bowel sounds, Soft, Non distended. No: Non tender (Epigastric tenderness, mild guarding) - Derm Derm: Normal color, Warm and dry, No rash - Extremities Extremities: No deformity, No tenderness to palpate - Neuro Neuro: Alert and oriented X 3, No motor deficit, No sensory deficit - Psych Psych: Normal mood, Normal affect Results - Vitals Vitals: Vital Signs - 24 hr 08/29/18 08/29/18 13:44 16:51 Temperature 36.7 C Heart Rate 61 74 Respiratory 12 16 Rate Blood Pressure 127/74 101/65 O2 Saturation 100 100 Oxygen O2 Source Room air - Labs Labs: Laboratory Tests 08/29/18 08/29/18 08/29/18 14:11 14:11 14:46 WBC 9.5 RBC 3.88 L Hgb 11.6 L Hct 33.9 L MCV 87.4 MCH 29.9 MCHC 34.2 RDW 12.0 Plt Count 277 MPV 10.6 Neut # (Auto) 8.5 H Lymph # (Auto) 0.8 L [place] # (Auto) 0.2 Eos # (Auto) 0.0 Baso # (Auto) 0.0 Absolute Nucleated RBC 0.00 Nucleated RBC % 0.0 Sodium 142 Potassium 3.7 Chloride 108 Carbon Dioxide 22 Anion Gap 12.0 BUN 9 Creatinine 0.7 Estimated GFR (MDRD) 96 Glucose 136 H Calcium 9.0 Total Bilirubin 0.6 AST 18 ALT 17 Alkaline Phosphatase 44 Total Protein 7.4 Albumin 4.3 Globulin 3.1 Albumin/Globulin Ratio 1.4 Lipase 26 Urine Color Urine Clarity Urine pH Ur Specific [place] Urine Protein Urine Glucose (UA) Urine Ketones Urine Occult Blood Urine Nitrite Urine Bilirubin Urine Urobilinogen Ur Leukocyte Esterase Ur Microscopic Review Urine Culture Comments Urine HCG, Qual Urine Opiates Screen POSITIVE H Ur Oxycodone Screen NEGATIVE Urine Methadone Screen NEGATIVE Ur Propoxyphene Screen NEGATIVE Ur Barbiturates Screen NEGATIVE Ur Tricyclics Screen NEGATIVE Ur Phencyclidine Scrn NEGATIVE Ur Amphetamine Screen NEGATIVE U Methamphetamines Scrn NEGATIVE U Benzodiazepines Scrn NEGATIVE Urine Cocaine Screen NEGATIVE U Cannabinoids Screen POSITIVE H 08/29/18 14:46 WBC RBC Hgb Hct MCV MCH MCHC RDW Plt Count MPV Neut # (Auto) Lymph # (Auto) [place] # (Auto) Eos # (Auto) Baso # (Auto) Absolute Nucleated RBC Nucleated RBC % Sodium Potassium Chloride Carbon Dioxide Anion Gap BUN Creatinine Estimated GFR (MDRD) Glucose Calcium Total Bilirubin AST ALT Alkaline Phosphatase Total Protein Albumin Globulin Albumin/Globulin Ratio Lipase Urine Color YELLOW Urine Clarity CLEAR Urine pH 8.5 H Ur Specific [place] 1.015 Urine Protein NEGATIVE Urine Glucose (UA) NEGATIVE Urine Ketones >=80 H Urine Occult Blood NEGATIVE Urine Nitrite NEGATIVE Urine Bilirubin NEGATIVE Urine Urobilinogen 0.2 (NORMAL) Ur Leukocyte Esterase NEGATIVE Ur Microscopic Review NOT INDICATED Urine Culture Comments NOT INDICATED Urine HCG, Qual NEGATIVE Urine Opiates Screen Ur Oxycodone Screen Urine Methadone Screen Ur Propoxyphene Screen Ur Barbiturates Screen Ur Tricyclics Screen Ur Phencyclidine Scrn Ur Amphetamine Screen U Methamphetamines Scrn U Benzodiazepines Scrn Urine Cocaine Screen U Cannabinoids Screen PD MEDICAL DECISION MAKING - ED course Complexity details: reviewed old records, reviewed results, re-evaluated patient, considered differential, d/w patient, d/w family ED course: Patient presenting with epigastric discomfort as well as nausea and vomiting. Do have concern for GERD, gastritis, PUD and patient believes the symptoms to be directly related to her celiac disease. Have lower suspicion for other intra- abdominal pathology including gallbladder disease, appendectomy, pancreatitis, small bowel obstruction, diverticulitis, renal disease, UTI, or other pelvic/ovarian pathology, but considered. Patient started on IV fluid, as well as nausea and pain medication.Screening lab work and urinalysis obtained which returned relatively unremarkable. Patient had denied other substance use but did have concern for possible marijuana use and cannabis induced hyperemesis. Drug testing did return positive for that. Additionally, given patient's frequency of visits and otherwise benign exam, do have some concern for drug- seeking behavior and would monitor for this in the future. Discussed results recommendations with patient, return precautions, follow-up. Patient voiced understanding and is comfortable with discharge plan. Departure - Departure Disposition: 01 Home, Self Care Clinical Impression: Nausea and vomiting Condition: Good Instructions: ED Diet Vomiting Diarrhea Follow-Up: Mina Hobson PA-C [Primary Care Provider] - Within 3 Days Comments: Please continue any home medications as previously instructed. Recommend bland diet advancing as tolerated. Recommend hydration with Powerade/Gatorade. Please follow-up with primary care physician in next 2 to 3 days and return to ED sooner if experience worsening symptoms or have other concerns. Discharge Date/Time: 08/29/18 16:52
[2018-08-29] MEDS ORDERED: SODIUM CHLORIDE 0.9% 1,000 ML IV ONE ×2 (13:59→15:07)
[2018-08-29] MEDS ORDERED: HYDROmorphone 1 MG/ML CARPUJECT IVP STA (14:00)
[2018-08-29] MEDS ORDERED: LORazepam 2 MG/ML VIAL IVP STA (14:00)
[2018-08-29 14:16] LABS: BASOPHILS % (AUTO) 0.3 %; HGB - HEMOGLOBIN 11.6 g/dL (12.0-16.0); LYMPHOCYTES # (AUTO) 0.8 10^3/uL (1.5-3.5); MEAN CORPUSCULAR HEMOGLOBIN 29.9 pg (27.0-31.0); MEAN CORPUSCULAR HGB CONC 34.2 g/dL (32.0-36.0); MEAN CORPUSCULAR VOLUME 87.4 fL (81.0-99.0); MEAN PLATELET VOLUME 10.6 fL (7.9-10.8); MONOCYTES # (AUTO) 0.2 10^3/uL (0.0-1.0); MONOCYTES % (AUTO) 1.7 %; NEUTROPHILS # (AUTO) 8.5 10^3/uL (1.5-6.6); NEUTROPHILS % (AUTO) 89.5 %; PLT - PLATELET COUNT 277 10^3/uL (130-450); RED BLOOD COUNT 3.88 10^6/uL (4.20-5.40); WHITE BLOOD COUNT 9.5 x10^3/uL (4.8-10.8)
[2018-08-29 14:29] LABS: ALBUMIN 4.3 g/dL (3.2-5.5); ALBUMIN/GLOBULIN RATIO 1.4 (1.0-2.2); BILIRUBIN,TOTAL 0.6 mg/dL (0.2-1.0); CREATININE 0.7 mg/dL (0.4-1.0); TOTAL PROTEIN 7.4 g/dL (6.7-8.2)
[2018-08-29 14:52] LABS: MUDS CUTOFF CONCENTRATIONS CUTOFF CONC BELOW:
[2018-08-29 14:55] LABS: BILIRUBIN,URINE NEGATIVE (NEGATIVE); GLUCOSE, URINE (UA) NEGATIVE (NEGATIVE); KETONES,URINE (UA) >=80 mg/dL (NEGATIVE); LEUKOCYTE ESTERASE, URINE NEGATIVE (NEGATIVE); NITRITE,URINE NEGATIVE (NEGATIVE); OCCULT BLOOD,URINE NEGATIVE (NEGATIVE); PH,URINE 8.5 PH (5.0-7.5); PROTEIN,URINE NEGATIVE (NEGATIVE); UROBILINOGEN,URINE 0.2 (NORMAL) E.U./dL (NORMAL)
[2018-08-29 14:57] LABS: CLARITY,URINE CLEAR (CLEAR)
[2018-08-29 15:00] LABS: HCG UR QUAL NEGATIVE
[2018-08-29 15:07] LABS: AMPHETAMINE SCREEN,URINE NEGATIVE (NEGATIVE); BENZODIAZEPINES SCREEN, URINE NEGATIVE (NEGATIVE); COCAINE SCREEN URINE NEGATIVE (NEGATIVE); METHADONE SCREEN, URINE NEGATIVE (NEGATIVE); METHAMPHETAMINES SCREEN, URINE NEGATIVE (NEGATIVE); OPIATE SCREEN, URINE POSITIVE (NEGATIVE); OXYCODONE SCREEN, URINE NEGATIVE (NEGATIVE); PROPOXYPHENE SCREEN, URINE NEGATIVE (NEGATIVE); TRICYCLIC ANTIDEPRESSANT,URINE NEGATIVE (NEGATIVE)
[2018-08-29 16:52] VITALS: BP 101/65
== END 2018-08-29 16:52 | disposition home or self-care (01) ==
LOC: EDUNIT# → ED 13:41
DX: R11.2 Nausea with vomiting, unspecified (principal)
CPT/HCPCS: 36415; 80053; 80306; 81003; 81025; 83690; 85025; 96361; 96374; 99282; 99283; J1170; J2060; 81001; 87086

== ENCOUNTER 2018-11-28 15:44 | Outpatient (CLI) | payer MEDICAID ==
--- NOTE | 2018-11-30 04:57 | XRAY Report ---
Reason: wrist pain, right Procedure Date: 11/28/2018 Accession Number: [id number] / [id number] Procedure: XRN - Wrist 3 View RT CPT Code: FULL RESULT: EXAM: RIGHT WRIST RADIOGRAPHY EXAM DATE: 11/28/2018 04:03 PM. CLINICAL HISTORY: Wrist pain, right. COMPARISON: None. TECHNIQUE: 3 views. FINDINGS: Bones: Positive ulnar variance with mild sclerosis in the lunate. The remaining bone architecture and alignment are intact. Joints: Normal. No subluxations. Soft Tissues: Normal. No soft tissue swelling. IMPRESSION: Positive ulnar variance with mild reactive changes in the lunate. RADIA
== END 2018-11-28 15:45 | disposition home or self-care (01) ==
LOC: DI.N 15:44
PROVIDERS: ATTEND Family Medicine
DX: M25.531 Pain in right wrist (principal)

== ENCOUNTER 2018-12-26 04:58 | Outpatient (CLI) | payer MEDICAID | END 2018-12-26 04:59 | disposition critical access hospital (66) | LOC: EMS 04:58 | PROVIDERS: ATTEND Surgery | DX: R10.10 Upper abdominal pain, unspecified (principal); R11.2 Nausea with vomiting, unspecified; R19.7 Diarrhea, unspecified | CPT/HCPCS: A0425; A0429; A0999 ==

== ENCOUNTER 2018-12-26 05:20 | Emergency (ER) | payer MEDICAID ==
--- NOTE | 2018-12-26 05:55 | ED Physician Documentation ---
PD HPI ABD PAIN - Stated complaint Stated Complaint: ABD CRAMPING - Chief complaint Chief Complaint: Abd Pain - History obtained from History obtained from: Family - History of Present Illness Timing - onset: Enter time (03:00), Today Timing - details: Abrupt onset Pain level max: 10 Pain level now: 10 Quality: Cramping, Pain Location: All over / everywhere Improved by: Other (nothing) Worsened by: Moving, Palpation Associated symptoms: Nausea, Vomiting. No: Fever, Diarrhea, Constipation Recently seen: Emergency Dept (frequent [facility] ED visits for same symptoms over past several year) - Additional information Additional information: "I think I got some gluten" (per patient). States she has gluten intolerance and she attributes her episodic nausea, vomiting, and abdominal pain and "esophageal spasms" to this trigger. "Hurts so unbelievably bad". Patient specifically requesting dilaudid and a banana bag. She says she tried zofran and PO lidocaine at home without relief Review of Systems Constitutional: reports: Reviewed and negative Cardiac: reports: Reviewed and negative Respiratory: reports: Reviewed and negative GI: reports: Abdominal Pain, Nausea, Vomiting. 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 : None HEENT: None Psych: Anxiety, Post traumatic stress disorder Musculoskeletal: Scoliosis, Other Derm: None - Past Surgical History Past Surgical History: Yes Ortho: Shoulder arthroplasty Cardiovascular: Other - Present Medications Home Medications: Ambulatory Orders Medication Instructions Recorded Confirmed Ondansetron Odt [Zofran Odt] 4 mg TL Q6H PRN #20 tablet 01/02/17 02/21/17 Lidocaine Patch 5% [Lidoderm Patch] 1 each TOP DAILY PRN #10 patch 01/31/17 02/21/17 Mag Hydrox/Al Hydrox/Simeth 08/29/18 [Antacid Suspension] Promethazine [Phenergan] 25 mg PO Q6H PRN #10 tab 12/26/18 - Allergies Allergies/Adverse Reactions: Allergies Allergy/AdvReac Type Severity Reaction Status Date / Time amoxicillin [Amoxicillin] Allergy Severe throat Verified 12/26/18 05:44 swells Penicillins Allergy Severe Hives Verified 12/26/18 05:44 pertussis vaccine,adsorbed Allergy Severe seizures Verified 12/26/18 05:44 [Pertussis Vaccine,Adsorbed] NSAIDS (Non-Steroidal Allergy Nausea Verified 12/26/18 05:44 Anti-Inflamma ciprofloxacin [From Cipro] AdvReac Intermediate Cramps Verified 12/26/18 05:44 oxycodone HCl * AdvReac Mild Nausea Verified 12/26/18 05:44 [From Percocet] diphtheria, pertussis, AdvReac Unknown Verified 12/26/18 05:44 tetanus vacc haloperidol [From Haldol] AdvReac Visual Verified 12/26/18 05:44 disturbance meperidine HCl * AdvReac Itching Verified 12/26/18 05:44 [From Demerol] - Social History Does the pt smoke?: No Smoking Status: Never smoker Does the pt drink ETOH?: No Does the pt have substance abuse?: No - Immunizations Immunizations are current?: Yes - POLST Patient has POLST: No PD ED PE NORMAL - Vitals Vital signs reviewed: Yes - General General: Alert and oriented X 3, Well developed/nourished, Other (curled up in ball on stretcher, occasionally moaning during H+P. ) - HEENT HEENT: Moist mucous membranes - Neck Neck: Supple, no meningeal sign - Cardiac Cardiac: RRR, No murmur - Respiratory Respiratory: No respiratory distress, Clear bilaterally - Abdomen Abdomen: Soft, Non distended, Other (diffusely tender with distractable component (eg- I ask about previous surgeries, and there is less audible and visible reaction to same degree of palpation in same location of abdomen)) - Back Back: No CVA TTP - Derm Derm: Normal color, Warm and dry Results - Vitals Vitals: Vital Signs - 24 hr 12/26/18 12/26/18 12/26/18 05:25 06:22 07:09 Temperature 37.1 C Heart Rate 64 55 L 64 Respiratory 16 16 16 Rate Blood Pressure 133/92 H 137/88 H 135/87 H O2 Saturation 100 100 100 12/26/18 08:40 Temperature Heart Rate 72 Respiratory 18 Rate Blood Pressure 126/80 O2 Saturation 99 Oxygen O2 Source Room air - Labs Labs: Laboratory Tests 12/26/18 12/26/18 06:20 06:20 WBC 13.7 H RBC 3.80 L Hgb 11.3 L Hct 34.2 L MCV 90.0 MCH 29.7 MCHC 33.0 RDW 11.5 L Plt Count 243 MPV 11.3 H Neut # (Auto) 12.2 H Lymph # (Auto) 0.9 L [place] # (Auto) 0.5 Eos # (Auto) 0.0 Baso # (Auto) 0.0 Absolute Nucleated RBC 0.00 Nucleated RBC % 0.0 Sodium 141 Potassium 3.7 Chloride 109 Carbon Dioxide 22 Anion Gap 10.0 BUN 15 Creatinine 0.8 Estimated GFR (MDRD) 82 L Glucose 146 H Calcium 9.0 Total Bilirubin 0.7 AST 24 ALT 15 Alkaline Phosphatase 45 Total Protein 7.5 Albumin 4.3 Globulin 3.2 Albumin/Globulin Ratio 1.3 Lipase 71 H PD MEDICAL DECISION MAKING - ED course Complexity details: reviewed old records, reviewed results, re-evaluated patient, considered differential, d/w patient ED course: frequent visits to this ED for same, although less frequent than few years ago. On reevaluation after dilaudid, NS x 2 liters, and phenergan, she is sleeping and in NAD. Lab results reviewed. I discussed discharge with her, but she says she "can't stop vomiting" and still has pain. I explained that I would be willing to order low-dose morphine and 4mg zofran, but would then discharge patient, as I have witnessed her resting comfortably for over an hour prior to reevaluation. Additionally, I have found that on some previous visits, boundaries regarding medications have worked favorably in getting patient to discharge rather than continuing to add more medications when she has no visible signs of distress or significant lab or vital sign abnormalities to support ongoing emergency / inpatient treatment. Departure - Departure Disposition: 01 Home, Self Care Clinical Impression: Nausea and vomiting, Abdominal pain Condition: Good Instructions: ED Nausea Vomiting Prescriptions: Promethazine [Phenergan] 25 mg PO Q6H PRN #10 tab PRN Reason: Nausea / Vomiting Discharge Date/Time: 12/26/18 09:47
[2018-12-26] MEDS ORDERED: PROMETHAZINE INJ 25 MG in SODIUM CHLORIDE 0.9% 50 ML IV STA (06:03)
[2018-12-26] MEDS ORDERED: HYDROmorphone 1 MG/ML CARPUJECT IVP STA (06:03)
[2018-12-26] MEDS ORDERED: SODIUM CHLORIDE 0.9% 1,000 ML IV STA (06:04)
[2018-12-26 06:25] LABS: BASOPHILS % (AUTO) 0.3 %; EOSINOPHILS % (AUTO) 0.1 %; HGB - HEMOGLOBIN 11.3 g/dL (12.0-16.0); LYMPHOCYTES # (AUTO) 0.9 10^3/uL (1.5-3.5); LYMPHOCYTES % (AUTO) 6.6 %; MEAN CORPUSCULAR HEMOGLOBIN 29.7 pg (27.0-31.0); MEAN PLATELET VOLUME 11.3 fL (7.9-10.8); MONOCYTES # (AUTO) 0.5 10^3/uL (0.0-1.0); MONOCYTES % (AUTO) 3.4 %; NEUTROPHILS # (AUTO) 12.2 10^3/uL (1.5-6.6); NEUTROPHILS % (AUTO) 89.2 %; PLT - PLATELET COUNT 243 10^3/uL (130-450); RED CELL DISTRIBUTION WIDTH 11.5 % (12.0-15.0); WHITE BLOOD COUNT 13.7 x10^3/uL (4.8-10.8)
[2018-12-26 06:40] LABS: ALBUMIN 4.3 g/dL (3.2-5.5); ALBUMIN/GLOBULIN RATIO 1.3 (1.0-2.2); BILIRUBIN,TOTAL 0.7 mg/dL (0.2-1.0); CREATININE 0.8 mg/dL (0.4-1.0); TOTAL PROTEIN 7.5 g/dL (6.7-8.2)
[2018-12-26] MEDS ORDERED: MORPHINE 2 MG/ML CARPUJECT IVP STA (08:03)
[2018-12-26] MEDS ORDERED: ONDANSETRON 4 MG/2 ML VIAL IVP STA (08:03)
[2018-12-26 08:41] VITALS: BP 126/80
== END 2018-12-26 09:47 | disposition home or self-care (01) ==
LOC: EDUNIT# → ED 05:20
DX: R11.2 Nausea with vomiting, unspecified (principal); R10.84 Generalized abdominal pain; K90.41 Non-celiac gluten sensitivity
CPT/HCPCS: 36415; 80053; 83690; 85025; 96365; 96366; 96375; 99284; 99285; J1170; J7040

== ENCOUNTER 2019-01-21 20:42 | Emergency (ER) | payer MEDICAID ==
[2019-01-21 20:53] VITALS: BP 119/86
[2019-01-21 21:10] LABS: BASOPHILS % (AUTO) 0.5 %; EOSINOPHILS # (AUTO) 0.1 10^3/uL (0.0-0.7); EOSINOPHILS % (AUTO) 2.9 %; HGB - HEMOGLOBIN 15.2 g/dL (12.0-16.0); LYMPHOCYTES # (AUTO) 0.7 10^3/uL (1.5-3.5); LYMPHOCYTES % (AUTO) 17.7 %; MEAN CORPUSCULAR HEMOGLOBIN 29.3 pg (27.0-31.0); MEAN CORPUSCULAR HGB CONC 34.5 g/dL (32.0-36.0); MEAN CORPUSCULAR VOLUME 84.8 fL (81.0-99.0); MEAN PLATELET VOLUME 11.3 fL (7.9-10.8); MONOCYTES # (AUTO) 0.5 10^3/uL (0.0-1.0); MONOCYTES % (AUTO) 11.9 %; NEUTROPHILS # (AUTO) 2.5 10^3/uL (1.5-6.6); NEUTROPHILS % (AUTO) 66.7 %; PLT - PLATELET COUNT 173 10^3/uL (130-450); RED BLOOD COUNT 5.19 10^6/uL (4.20-5.40); RED CELL DISTRIBUTION WIDTH 11.2 % (12.0-15.0); WHITE BLOOD COUNT 3.8 x10^3/uL (4.8-10.8)
[2019-01-21 21:24] LABS: ALBUMIN 4.8 g/dL (3.2-5.5); ALBUMIN/GLOBULIN RATIO 1.3 (1.0-2.2); BILIRUBIN,TOTAL 0.9 mg/dL (0.2-1.0); CALCIUM 9.1 mg/dL (8.5-10.3); TOTAL PROTEIN 8.5 g/dL (6.7-8.2)
[2019-01-21] MEDS: ONDANSETRON 4 MG/2 ML VIAL IVP STA (21:52)
[2019-01-21] MEDS: ALBUTEROL NEB 2.5 MG/3 ML INH STA (21:55)
[2019-01-21] MEDS: LORazepam 2 MG/ML VIAL IVP STA (21:59)
[2019-01-21] MEDS: MAGNESIUM SULFATE 2 GRAM 2 GM/50 ML BAG IV ONE (21:59)
[2019-01-21] MEDS: MORPHINE 10 MG/ML VIAL IVP STA (21:59)
[2019-01-21] MEDS: SODIUM CHLORIDE 0.9% 1,000 ML IV ONE ×2 (22:08→23:07)
--- NOTE | 2019-01-21 22:49 | ED Physician Documentation ---
PD HPI NVD - Stated complaint Stated Complaint: FLU LIKE SYMPTOMS, N/V/D - Chief complaint Chief Complaint: Abd Pain - History obtained from History obtained from: Patient, Family (mom) - History of Present Illness Timing - onset: How many days ago (2) Timing - duration: Days (2) Timing - details: Abrupt onset, Still present Associated symptoms: Abdominal pain, Loss of appetite, Other (Cough with wheezing and congestion nausea vomiting and diarrhea for couple of days. She had more significant onset of upper abdominal pain and vomiting today. She has had episodes of the upper abdominal pain associated with nausea and vomiting episodically in the past. Work-up is included ultrasounds, CTs, GI consultation and lower endoscopies. No particular finding is been found in the past. She states the current abdominal pain and vomiting are similar to those episodes but she has had also flulike symptoms for the last couple of days.). No: Near syncope / syncope Improved by: No: Vomiting Worsened by: Eating Similar symptoms before: No diagnosis Recently seen: Not recently seen Review of Systems Constitutional: reports: Chills, Myalgias Nose: reports: Congestion Throat: denies: Sore throat Respiratory: reports: Cough, Wheezing GI: reports: Abdominal Pain, Nausea, Vomiting, Diarrhea : denies: Dysuria, Frequency Skin: denies: Rash Neurologic: reports: Generalized weakness. 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 HEENT: None Psych: Anxiety, Post traumatic stress disorder Musculoskeletal: Scoliosis, Other Derm: None - Past Surgical History Past Surgical History: Yes Ortho: Shoulder arthroplasty Cardiovascular: Other - Present Medications Home Medications: Ambulatory Orders Medication Instructions Recorded Confirmed Ondansetron Odt [Zofran Odt] 4 mg TL Q6H PRN #20 tablet 01/02/17 02/21/17 Lidocaine Patch 5% [Lidoderm Patch] 1 each TOP DAILY PRN #10 patch 01/31/17 02/21/17 Mag Hydrox/Al Hydrox/Simeth 08/29/18 [Antacid Suspension] Promethazine [Phenergan] 25 mg PO Q6H PRN #10 tab 12/26/18 Albuterol Sulfate [Proventil Hfa] 2 puffs IH QID PRN #1 hfa.aer.ad 01/21/19 Ondansetron Odt [Zofran] 4 mg TL Q6H PRN #20 tablet 01/21/19 Oseltamivir [Tamiflu] 75 mg PO BID #10 capsule 01/21/19 dexAMETHasone [Decadron] 4 mg PO DAILY #5 tablet 01/21/19 - Allergies Allergies/Adverse Reactions: Allergies Allergy/AdvReac Type Severity Reaction Status Date / Time amoxicillin [Amoxicillin] Allergy Severe throat Verified 01/21/19 20:53 swells Penicillins Allergy Severe Hives Verified 01/21/19 20:53 pertussis vaccine,adsorbed Allergy Severe seizures Verified 01/21/19 20:53 [Pertussis Vaccine,Adsorbed] NSAIDS (Non-Steroidal Allergy Nausea Verified 01/21/19 20:53 Anti-Inflamma ciprofloxacin [From Cipro] AdvReac Intermediate Cramps Verified 01/21/19 20:53 oxycodone HCl * AdvReac Mild Nausea Verified 01/21/19 20:53 [From Percocet] diphtheria, pertussis, AdvReac Unknown Verified 01/21/19 20:53 tetanus vacc haloperidol [From Haldol] AdvReac Visual Verified 01/21/19 20:53 disturbance meperidine HCl * AdvReac Itching Verified 01/21/19 20:53 [From Demerol] - Social History Does the pt smoke?: No Smoking Status: Never smoker Does the pt drink ETOH?: No Does the pt have substance abuse?: No - Immunizations Immunizations are current?: Yes - POLST Patient has POLST: No PD ED PE NORMAL - Vitals Vital signs reviewed: Yes - General General: Alert and oriented X 3, Well developed/nourished, Other (She does appear anxious and is tearful. She is scared about getting an IV started. She is alert and conversant however.) - HEENT HEENT: Ears normal, Pharynx benign. No: Moist mucous membranes - Neck Neck: Supple, no meningeal sign, No adenopathy - Cardiac Cardiac: No murmur. No: RRR (tachycardic but regular) - Respiratory Respiratory: No: Clear bilaterally (mild diffuse exp wheezes. ) - Abdomen Abdomen: Soft, Non distended, No organomegaly, Other (Tender with guarding in the upper abdomen. There is some mild percussion tenderness. There is no rebound. It takes only very light touch to cause her to be uncomfortable.). No: Normal bowel sounds (diminished) - Female Female : Deferred - Rectal Rectal: Deferred - Back Back: No CVA TTP - Derm Derm: Normal color, Warm and dry - Extremities Extremities: No edema, No calf tenderness / cord - Neuro Neuro: Alert and oriented X 3, No motor deficit, Normal speech - Psych Psych: No: Normal affect (anxious) Results - Vitals Vitals: Vital Signs - 24 hr 01/21/19 01/21/19 20:45 21:55 Temperature 36.8 C Heart Rate 131 H 85 Respiratory 24 18 Rate Blood Pressure 119/86 H O2 Saturation 99 Oxygen O2 Source Room air - Labs Labs: Laboratory Tests 01/21/19 01/21/19 01/21/19 21:04 21:04 21:04 WBC 3.8 L RBC 5.19 Hgb 15.2 Hct 44.0 MCV 84.8 MCH 29.3 MCHC 34.5 RDW 11.2 L Plt Count 173 MPV 11.3 H Neut # (Auto) 2.5 Lymph # (Auto) 0.7 L [place] # (Auto) 0.5 Eos # (Auto) 0.1 Baso # (Auto) 0.0 Absolute Nucleated RBC 0.00 Nucleated RBC % 0.0 ESR 6 Sodium 136 Potassium 3.6 Chloride 100 L Carbon Dioxide 20 L Anion Gap 16.0 H BUN 10 Creatinine 1.0 Estimated GFR (MDRD) 63 L Glucose 116 H Calcium 9.1 Magnesium Total Bilirubin 0.9 AST 39 ALT 21 Alkaline Phosphatase 47 Total Protein 8.5 H Albumin 4.8 Globulin 3.7 Albumin/Globulin Ratio 1.3 Lipase 51 Influenza A (Rapid) Influenza B (Rapid) 01/21/19 01/21/19 21:04 22:13 WBC RBC Hgb Hct MCV MCH MCHC RDW Plt Count MPV Neut # (Auto) Lymph # (Auto) [place] # (Auto) Eos # (Auto) Baso # (Auto) Absolute Nucleated RBC Nucleated RBC % ESR Sodium Potassium Chloride Carbon Dioxide Anion Gap BUN Creatinine Estimated GFR (MDRD) Glucose Calcium Magnesium 2.0 Total Bilirubin AST ALT Alkaline Phosphatase Total Protein Albumin Globulin Albumin/Globulin Ratio Lipase Influenza A (Rapid) Negative Influenza B (Rapid) POSITIVE H PD MEDICAL DECISION MAKING - ED course Complexity details: reviewed old records (Prior testing including CT of the abdomen and ultrasounds within the past 6 months did not show any acute processes. Consideration was of possible cyclic vomiting on prior notes. This may account for the symptoms this evening and this afternoon. However she does have underlying symptoms suggestive of a viral illness as well and we can test for flu and treat for that as well.), reviewed results, re-evaluated patient (The patient is feeling considerably improved with some IV fluids and medications of antiemetic antianxiety and some pain medicine. She also was given albuterol nebulizer which helped with her breathing and has improved wheezing. She does test positive for flu and we will give her Tamiflu as well after discussion. We will treat her with antiemetics and steroid dosing as well to help with her asthma flareup along with the flu.), considered differential, d/w patient Departure - Departure Disposition: 01 Home, Self Care Clinical Impression: Upper abdominal pain, Influenza B Nausea and vomiting Qualifiers: Vomiting type: unspecified Vomiting Intractability: non-intractable Qualified Code(s): R11.2 - Nausea with vomiting, unspecified Exacerbation of asthma Qualifiers: Asthma severity: mild Asthma persistence: intermittent Qualified Code(s): J45.21 - Mild intermittent asthma with (acute) exacerbation Condition: Stable Record reviewed to determine appropriate education?: Yes Instructions: ED Diet Vomiting Diarrhea Follow-Up: HUMAIRA SANTILLAN MD [Primary Care Provider] - Prescriptions: Albuterol Sulfate [Proventil Hfa] 2 puffs IH QID PRN #1 hfa.aer.ad PRN Reason: Asthma dexAMETHasone [Decadron] 4 mg PO DAILY #5 tablet Ondansetron Odt [Zofran] 4 mg TL Q6H PRN #20 tablet PRN Reason: Nausea / Vomiting Oseltamivir [Tamiflu] 75 mg PO BID #10 capsule Comments: For your nausea and vomiting, you can use ondansetron every 4-6 hours to help with that. You did have a positive flu test so we can treat with the Tamiflu to help decrease the flu symptoms. Also Decadron steroid daily for 5 days to help with inflammation of the airways and decrease your asthma and general aches and nausea as well. Use your albuterol inhaler 2 to 3 puffs 4 times a day and extra times as needed. Recheck if not improving over the next day or 2 regarding the nausea and vomiting and oral intake. The flu symptoms will likely last about a week.
[2019-01-21 23:00] LABS: MUDS CUTOFF CONCENTRATIONS CUTOFF CONC BELOW:
[2019-01-21 23:06] LABS: GLUCOSE, URINE (UA) NEGATIVE (NEGATIVE); KETONES,URINE (UA) 40 mg/dL (NEGATIVE); LEUKOCYTE ESTERASE, URINE NEGATIVE (NEGATIVE); NITRITE,URINE NEGATIVE (NEGATIVE); OCCULT BLOOD,URINE NEGATIVE (NEGATIVE); PROTEIN,URINE 100 mg/dL (NEGATIVE); UROBILINOGEN,URINE 0.2 (NORMAL) E.U./dL (NORMAL)
[2019-01-21] MEDS: ONDANSETRON ODT 4 MG Prepack 2 TL PRN (23:06)
[2019-01-21 23:08] LABS: CLARITY,URINE CLEAR (CLEAR); HCG UR QUAL NEGATIVE
[2019-01-21 23:11] LABS: BILIRUBIN,URINE NEGATIVE (NEGATIVE); ICTOTEST,URINE NEGATIVE
[2019-01-21 23:14] LABS: AMPHETAMINE SCREEN,URINE NEGATIVE (NEGATIVE); BACTERIA,URINE Rare /HPF (None Seen); BENZODIAZEPINES SCREEN, URINE NEGATIVE (NEGATIVE); COCAINE SCREEN URINE NEGATIVE (NEGATIVE); METHADONE SCREEN, URINE NEGATIVE (NEGATIVE); METHAMPHETAMINES SCREEN, URINE NEGATIVE (NEGATIVE); MUCUS,URINE Few Strands; OPIATE SCREEN, URINE POSITIVE (NEGATIVE); OXYCODONE SCREEN, URINE NEGATIVE (NEGATIVE); PROPOXYPHENE SCREEN, URINE NEGATIVE (NEGATIVE); RBC,URINE 0-5 /HPF (0-5); SQUAMOUS EPITHELIAL CELL,UR FEW Squamous (<= Few); TRICYCLIC ANTIDEPRESSANT,URINE NEGATIVE (NEGATIVE)
[2019-01-21] MEDS: DEXAMETHASONE 10 MG/ML VIAL IVP STA (23:16)
[2019-01-21] MEDS: OSELTAMIVIR 75 MG CAPSULE PO STA (23:19)
== END 2019-01-22 | disposition home or self-care (01) ==
LOC: ED 20:42
DX: J10.2 Influenza due to other identified influenza virus with gastrointestinal manifestations (principal); J45.21 Mild intermittent asthma with (acute) exacerbation
CPT/HCPCS: 36415; 80053; 80306; 81001; 81025; 83690; 83735; 85025; 85651; 87275; 87276; 94640; 96361; 96365; 96375; 99284; 99285; A9270; J2060; 81003; 87086

== ENCOUNTER 2019-04-02 18:44 | Outpatient (CLI) | payer MEDICAID | END 2019-04-02 18:45 | disposition critical access hospital (66) | LOC: EMS 18:44 | PROVIDERS: ATTEND Surgery | DX: R10.9 Unspecified abdominal pain (principal); R11.10 Vomiting, unspecified | CPT/HCPCS: A0425; A0427; A0999 ==

== ENCOUNTER 2019-04-02 19:03 | Emergency (ER) | payer MEDICAID ==
--- NOTE | 2019-04-02 19:15 | ED Physician Documentation ---
History of Present Illness - Stated complaint Stated Complaint: ABD PAIN - Chief complaint Chief Complaint: Abd Pain - Additonal information Additional information: This is a 33-year-old female with a history of posttraumatic stress disorder, recurrent abdominal pain which she attributes to gluten allergy, presents with abdominal pain and vomiting. Patient states that she ate a pulled pork sandwich earlier in the day and since the early to mid afternoon she has had diffuse abdominal discomfort and mild episodes of nonbloody vomiting. No diarrhea, no fever. No chest pain. No blood in her stool. She denies dysuria. 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 : None HEENT: None Psych: Anxiety, Post traumatic stress disorder Musculoskeletal: Scoliosis, Other Derm: None - Past Surgical History Past Surgical History: Yes Ortho: Shoulder arthroplasty Cardiovascular: Other - Present Medications Home Medications: Ambulatory Orders Medication Instructions Recorded Confirmed Ondansetron Odt [Zofran Odt] 4 mg TL Q6H PRN #20 tablet 01/02/17 02/21/17 Albuterol Sulfate [Proventil Hfa] 2 puffs IH QID PRN #1 hfa.aer.ad 01/21/19 Metoclopramide [Reglan] 10 mg PO Q6H PRN #5 tablet 04/02/19 - Allergies Allergies/Adverse Reactions: Allergies Allergy/AdvReac Type Severity Reaction Status Date / Time amoxicillin [Amoxicillin] Allergy Severe throat Verified 04/02/19 19:10 swells Penicillins Allergy Severe Hives Verified 04/02/19 19:10 pertussis vaccine,adsorbed Allergy Severe seizures Verified 04/02/19 19:10 [Pertussis Vaccine,Adsorbed] NSAIDS (Non-Steroidal Allergy Nausea Verified 04/02/19 19:10 Anti-Inflamma ciprofloxacin [From Cipro] AdvReac Intermediate Cramps Verified 04/02/19 19:10 oxycodone HCl * AdvReac Mild Nausea Verified 04/02/19 19:10 [From Percocet] diphtheria, pertussis, AdvReac Unknown Verified 04/02/19 19:10 tetanus vacc haloperidol [From Haldol] AdvReac Visual Verified 04/02/19 19:10 disturbance meperidine HCl * AdvReac Itching Verified 04/02/19 19:10 [From Demerol] - Social History Does the pt smoke?: No Smoking Status: Never smoker Does the pt drink ETOH?: No Does the pt have substance abuse?: No - Immunizations Immunizations are current?: Yes - POLST Patient has POLST: No PD ED PE NORMAL - Vitals Vital signs reviewed: Yes - General General: Alert and oriented X 3, Other (Patient is resting in bed and does not appear to be in any acute distress when observed from the doorway, her pulse rate on the monitor is 68. Upon approaching the patient she begins groaning, But continues to be nontoxic-appearing.) - HEENT HEENT: PERRL - Neck Neck: Supple, no meningeal sign - Cardiac Cardiac: RRR, No murmur - Respiratory Respiratory: Clear bilaterally - Abdomen Abdomen: Normal bowel sounds, Soft, Other (Diffuse mild tenderness, No focal tenderness.) - Derm Derm: Warm and dry - Extremities Extremities: No deformity - Neuro Neuro: Alert and oriented X 3 Results - Vitals Vitals: Vital Signs - 24 hr 04/02/19 04/02/19 04/02/19 19:05 19:45 20:02 Temperature 37.0 C Heart Rate 70 81 83 Respiratory 18 18 16 Rate Blood Pressure 138/84 H 121/80 114/64 O2 Saturation 100 100 97 04/02/19 04/02/19 04/02/19 20:38 21:12 21:38 Temperature 37.4 C Heart Rate 79 81 78 Respiratory 16 15 12 Rate Blood Pressure 105/54 L 125/68 125/68 O2 Saturation 96 100 99 04/02/19 21:45 Temperature 36.8 C Heart Rate 77 Respiratory 16 Rate Blood Pressure 130/70 O2 Saturation 98 Oxygen O2 Source Room air - Labs Labs: Laboratory Tests 04/02/19 04/02/19 04/02/19 19:44 19:44 19:44 WBC 12.5 H RBC 4.00 L Hgb 12.4 Hct 35.7 L MCV 89.3 MCH 31.0 MCHC 34.7 RDW 11.9 L Plt Count 316 MPV 10.7 Neut # (Auto) 9.9 H Lymph # (Auto) 1.8 [place] # (Auto) 0.5 Eos # (Auto) 0.2 Baso # (Auto) 0.1 Absolute Nucleated RBC 0.00 Nucleated RBC % 0.0 Sodium 139 Potassium 3.3 L Chloride 101 Carbon Dioxide 23 Anion Gap 15.0 H BUN 10 Creatinine 0.9 Estimated GFR (MDRD) 72 L Glucose 123 H Calcium 9.6 Total Bilirubin 1.0 AST 22 ALT 15 Alkaline Phosphatase 41 L Total Protein 8.0 Albumin 4.9 Globulin 3.1 Albumin/Globulin Ratio 1.6 Lipase 50 Serum HCG, Qual NEGATIVE PD MEDICAL DECISION MAKING - ED course Complexity details: considered differential (Gastritis, gluten intolerance, pa ncreatitis, gastroenteritis, hyperemesis, electrolyte abnormality) ED course: On arrival patient is actually very well-appearing, she is sleeping in bed and her vital signs are unremarkable. When I approached the patient she does endorse significant discomfort. Her abdomen is diffusely mildly tender but there is no focal tenderness. IV was inserted labs are drawn patient was given morphine as well as Reglan, As well as IV fluids. Labs show mild leukocytosis of 12.5, and a mild hypokalemia 3.3, otherwise they are unremarkable. Her lipase is normal her hCG is negative. Reviewing her records she has had CTs in the past with many nearly identical presentations, these been unrevealing. Her symptoms tend to resolve after several doses of medications and with time. She denies pelvic symptoms. Patient states this feels identical to past episodes. After a dose of Phenergan she is feeling improved and ready to go home. Her abdomen is benign and her vital signs remain unremarkable, I do not see signs of any acute abdominal pathology at this time.. I discussed with her that if she is having persistent vomiting, if she is having increasing abdominal pain abdo renato pain focused one side of the abdomen, she should return to the emergency department. She agrees with this plan and was discharged home in good condition. Departure - Departure Disposition: 01 Home, Self Care Clinical Impression: Vomiting Qualifiers: Vomiting type: unspecified Vomiting Intractability: unspecified Nausea presence: with nausea Qualified Code(s): R11.2 - Nausea with vomiting, unspecif ied Condition: Good Instructions: ED Nausea Vomiting Follow-Up: HUMAIRA SANTILLAN MD [Primary Care Provider] - Prescriptions: Metoclopramide [Reglan] 10 mg PO Q6H PRN #5 tablet PRN Reason: Nausea / Vomiting Comments: You were seen today for abdominal pain and vomiting. I'm glad that you are feeling a better, as we discussed if you are having worsening abdominal pain, persistent vomiting, fever, or other concerning symptoms return to the emergency department. Please follow with your primary care provider soon as possible. I am prescribing you Reglan for nausea, you may use this or Zofran or Phenergan, but do not combine them together at the same time. Discharge Date/Time: 04/02/19 21:47
[2019-04-02] MEDS ORDERED: SODIUM CHLORIDE 0.9% 1,000 ML IV STA (19:23)
[2019-04-02] MEDS ORDERED: METOCLOPRAMIDE 10 MG/2 ML VIAL IVP STA (19:24)
[2019-04-02] MEDS ORDERED: MORPHINE 2 MG/ML CARPUJECT IVP STA ×2 (19:25→20:37)
[2019-04-02 19:47] LABS: BASOPHILS # (AUTO) 0.1 10^3/uL (0.0-0.1); BASOPHILS % (AUTO) 0.7 %; EOSINOPHILS # (AUTO) 0.2 10^3/uL (0.0-0.7); EOSINOPHILS % (AUTO) 1.6 %; HGB - HEMOGLOBIN 12.4 g/dL (12.0-16.0); LYMPHOCYTES # (AUTO) 1.8 10^3/uL (1.5-3.5); LYMPHOCYTES % (AUTO) 14.1 %; MEAN CORPUSCULAR HGB CONC 34.7 g/dL (32.0-36.0); MEAN CORPUSCULAR VOLUME 89.3 fL (81.0-99.0); MEAN PLATELET VOLUME 10.7 fL (7.9-10.8); MONOCYTES # (AUTO) 0.5 10^3/uL (0.0-1.0); MONOCYTES % (AUTO) 3.8 %; NEUTROPHILS # (AUTO) 9.9 10^3/uL (1.5-6.6); NEUTROPHILS % (AUTO) 79.4 %; PLT - PLATELET COUNT 316 10^3/uL (130-450); RED CELL DISTRIBUTION WIDTH 11.9 % (12.0-15.0); WHITE BLOOD COUNT 12.5 x10^3/uL (4.8-10.8)
[2019-04-02 20:01] LABS: ALBUMIN 4.9 g/dL (3.2-5.5); ALBUMIN/GLOBULIN RATIO 1.6 (1.0-2.2); CALCIUM 9.6 mg/dL (8.5-10.3); CREATININE 0.9 mg/dL (0.4-1.0)
[2019-04-02 20:15] LABS: HCG,QUALITATIVE BLOOD NEGATIVE
[2019-04-02] MEDS ORDERED: PROMETHAZINE INJ 12.5 MG in SODIUM CHLORIDE 0.9% 50 ML IV STA (20:35)
[2019-04-02 21:47] VITALS: BP 130/70
== END 2019-04-02 21:47 | disposition home or self-care (01) ==
LOC: EDUNIT# → ED 19:03
DX: R11.2 Nausea with vomiting, unspecified (principal)
CPT/HCPCS: 36415; 80053; 83690; 84703; 85025; 96361; 96365; 96375; 96376; 99284; J2765; J7040

== ENCOUNTER 2019-06-08 15:12 | Outpatient (CLI) | payer MEDICAID | END 2019-06-08 15:13 | disposition critical access hospital (66) | LOC: EMS 15:12 | PROVIDERS: ATTEND Surgery | DX: R10.9 Unspecified abdominal pain (principal); R11.2 Nausea with vomiting, unspecified; R19.7 Diarrhea, unspecified | CPT/HCPCS: A0425; A0427; A0999 ==

== ENCOUNTER 2019-06-08 15:33 | Emergency (ER) | payer MEDICAID ==
[2019-06-08] MEDS: MORPHINE 2 MG/ML CARPUJECT IVP STA ×2 (15:47→17:03)
[2019-06-08] MEDS: SODIUM CHLORIDE 0.9% 1,000 ML IV ONE (15:47)
[2019-06-08] MEDS: PROMETHAZINE INJ 25 MG in SODIUM CHLORIDE 0.9% 50 ML IV STA (15:47)
[2019-06-08 16:02] LABS: BASOPHILS % (AUTO) 0.2 %; HGB - HEMOGLOBIN 11.1 g/dL (12.0-16.0); LYMPHOCYTES # (AUTO) 0.8 10^3/uL (1.5-3.5); LYMPHOCYTES % (AUTO) 7.7 %; MEAN CORPUSCULAR HEMOGLOBIN 30.9 pg (27.0-31.0); MEAN CORPUSCULAR HGB CONC 35.7 g/dL (32.0-36.0); MEAN CORPUSCULAR VOLUME 86.6 fL (81.0-99.0); MEAN PLATELET VOLUME 10.8 fL (7.9-10.8); MONOCYTES # (AUTO) 0.5 10^3/uL (0.0-1.0); MONOCYTES % (AUTO) 4.2 %; NEUTROPHILS # (AUTO) 9.5 10^3/uL (1.5-6.6); NEUTROPHILS % (AUTO) 87.5 %; PLT - PLATELET COUNT 257 10^3/uL (130-450); RED BLOOD COUNT 3.59 10^6/uL (4.20-5.40); RED CELL DISTRIBUTION WIDTH 11.1 % (12.0-15.0); WHITE BLOOD COUNT 10.9 x10^3/uL (4.8-10.8)
[2019-06-08 16:17] LABS: ALBUMIN 4.7 g/dL (3.2-5.5); ALBUMIN/GLOBULIN RATIO 1.6 (1.0-2.2); CALCIUM 8.5 mg/dL (8.5-10.3); CREATININE 0.6 mg/dL (0.4-1.0); TOTAL PROTEIN 7.6 g/dL (6.7-8.2)
--- NOTE | 2019-06-08 16:33 | ED Physician Documentation ---
PD HPI ABD PAIN - Stated complaint Stated Complaint: ABD PAIN - Chief complaint Chief Complaint: Abd Pain - History obtained from History obtained from: Patient - History of Present Illness Timing - onset: Last night Timing - duration: Days (1) Timing - details: Gradual onset Pain level max: 8 Pain level now: 8 Quality: Cramping, Aching, Pain Location: All over / everywhere Radiation: No: Chest, , Lower back, Left flank, Left shoulder, Right flank, Right shoulder, Upper back Improved by: Other (nothing) Worsened by: Other (nothing) Associated symptoms: Nausea, Vomiting. No: Fever, Hematemesis, Diarrhea, Constipation, Melena, Hematochezia, Dysuria, Hematuria Recently seen: Not recently seen - Additional information Additional information: 33-year-old female with a gluten allergy. She states that she ate fried chicken last night and then started having abdominal pain and cramping. This is similar to her past episodes. Worse with eating and drinking. Nothing makes it better. Denies any possibility of . Review of Systems Constitutional: denies: Fever, Chills Throat: denies: Sore throat Cardiac: denies: Chest pain / pressure Respiratory: denies: Cough GI: reports: Abdominal Pain, Nausea, Vomiting. 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 : None HEENT: None Psych: Anxiety, Post traumatic stress disorder Musculoskeletal: Scoliosis, Other Derm: None - Past Surgical History Past Surgical History: Yes Ortho: Shoulder arthroplasty /REHABILITATION PHYSICIAN: Hysterectomy Cardiovascular: Other - Present Medications Home Medications: Ambulatory Orders Medication Instructions Recorded Confirmed Ondansetron Odt [Zofran Odt] 4 mg TL Q6H PRN #20 tablet 01/02/17 02/21/17 Albuterol Sulfate [Proventil Hfa] 2 puffs IH QID PRN #1 hfa.aer.ad 01/21/19 Metoclopramide [Reglan] 10 mg PO Q6H PRN #5 tablet 04/02/19 Ondansetron Odt [Zofran] 4 mg TL Q6H PRN #10 tablet 06/08/19 Promethazine [Phenergan] 25 mg PO Q6H PRN #10 tab 06/08/19 - Allergies Allergies/Adverse Reactions: Allergies Allergy/AdvReac Type Severity Reaction Status Date / Time amoxicillin [Amoxicillin] Allergy Severe throat Verified 06/08/19 15:36 swells Penicillins Allergy Severe Hives Verified 06/08/19 15:36 pertussis vaccine,adsorbed Allergy Severe seizures Verified 06/08/19 15:36 [Pertussis Vaccine,Adsorbed] NSAIDS (Non-Steroidal Allergy Nausea Verified 06/08/19 15:36 Anti-Inflamma ciprofloxacin [From Cipro] AdvReac Intermediate Cramps Verified 06/08/19 15:36 oxycodone HCl * AdvReac Mild Nausea Verified 06/08/19 15:36 [From Percocet] diphtheria, pertussis, AdvReac Unknown Verified 06/08/19 15:36 tetanus vacc haloperidol [From Haldol] AdvReac Visual Verified 06/08/19 15:36 disturbance meperidine HCl * AdvReac Itching Verified 06/08/19 15:36 [From Demerol] - Social History Does the pt smoke?: No Smoking Status: Never smoker Does the pt drink ETOH?: No Does the pt have substance abuse?: No - Immunizations Immunizations are current?: Yes - POLST Patient has POLST: No PD ED PE NORMAL - Vitals Vital signs reviewed: Yes - General General: Alert and oriented X 3, No acute distress, Well developed/nourished - HEENT HEENT: Moist mucous membranes - Neck Neck: Supple, no meningeal sign - Cardiac Cardiac: RRR, Strong equal pulses - Respiratory Respiratory: No respiratory distress, Clear bilaterally - Abdomen Abdomen: Normal bowel sounds, Soft, Non distended, Other (Mild diffuse tenderness to palpation without peritoneal signs) - Back Back: No CVA TTP, No spinal TTP - Derm Derm: Warm and dry, No rash - Extremities Extremities: No edema - Neuro Neuro: Alert and oriented X 3 - Psych Psych: Normal mood, Normal affect Results - Vitals Vitals: Vital Signs - 24 hr 06/08/19 06/08/19 06/08/19 15:36 17:03 17:08 Temperature 37.3 C Heart Rate 76 51 L Respiratory 18 16 Rate Blood Pressure 97/67 102/68 O2 Saturation 100 98 Oxygen O2 Source Room air - Labs Labs: Laboratory Tests 06/08/19 06/08/19 15:43 15:43 WBC 10.9 H RBC 3.59 L Hgb 11.1 L Hct 31.1 L MCV 86.6 MCH 30.9 MCHC 35.7 RDW 11.1 L Plt Count 257 MPV 10.8 Neut # (Auto) 9.5 H Lymph # (Auto) 0.8 L [place] # (Auto) 0.5 Eos # (Auto) 0.0 Baso # (Auto) 0.0 Absolute Nucleated RBC 0.00 Nucleated RBC % 0.0 Sodium 136 Potassium 3.0 L Chloride 100 L Carbon Dioxide 26 Anion Gap 10.0 BUN 14 Creatinine 0.6 Estimated GFR (MDRD) 114 Glucose 113 H Calcium 8.5 Total Bilirubin 1.0 AST 23 ALT 16 Alkaline Phosphatase 40 L Total Protein 7.6 Albumin 4.7 Globulin 2.9 Albumin/Globulin Ratio 1.6 Lipase 23 PD MEDICAL DECISION MAKING - ED course Complexity details: reviewed old records, reviewed results, re-evaluated patient, considered differential, d/w patient ED course: Patient with her usual abdominal pain, nausea and vomiting after she ingests gluten. No significant lab abnormalities. Feels much better after morphine, Phenergan and Zofran. Given IV fluids as well. Patient states that she feels well enough to go home at this time. Will prescribe antiemetics for home. Patient counseled regarding signs and symptoms for which I believe and urgent re-evaluation would be necessary. Patient with good understanding of and agreement to plan and is comfortable going home at this time This document was made in part using voice recognition software. While efforts are made to proofread this document, sound alike and grammatical errors may occur. Departure - Departure Disposition: 01 Home, Self Care Clinical Impression: Abdominal pain Qualifiers: Abdominal location: generalized Qualified Code(s): R10.84 - Generalized abdom inal pain Vomiting Qualifiers: Vomiting type: unspecified Vomiting Intractability: unspecified Nausea presence : unspecified Qualified Code(s): R11.10 - Vomiting, unspecified Condition: Good Instructions: ED Nausea Vomiting Follow-Up: HUMAIRA SANTILLAN MD [Primary Care Provider] - Within 1 week Prescriptions: Ondansetron Odt [Zofran] 4 mg TL Q6H PRN #10 tablet PRN Reason: Nausea / Vomiting Promethazine [Phenergan] 25 mg PO Q6H PRN #10 tab PRN Reason: Nausea / Vomiting Comments: Drink plenty of fluids. Avoid gluten. Follow-up with your doctor for further care. Discharge Date/Time: 06/08/19 18:44
[2019-06-08] MEDS: ONDANSETRON 4 MG/2 ML VIAL IVP STA (17:03)
[2019-06-08 17:05] VITALS: BP 102/68
== END 2019-06-08 18:44 | disposition home or self-care (01) ==
LOC: EDUNIT# → ED 15:33
DX: R10.84 Generalized abdominal pain (principal); R11.2 Nausea with vomiting, unspecified; K90.41 Non-celiac gluten sensitivity
CPT/HCPCS: 36415; 80053; 83690; 85025; 96365; 96375; 96376; 99284

== ENCOUNTER 2019-08-06 09:49 | Outpatient (CLI) | payer MEDICAID | END 2019-08-06 09:50 | disposition critical access hospital (66) | LOC: EMS 09:49 | PROVIDERS: ATTEND Surgery | DX: R10.9 Unspecified abdominal pain (principal); R11.2 Nausea with vomiting, unspecified | CPT/HCPCS: A0425; A0429 ==

== ENCOUNTER 2019-08-06 10:07 | Emergency (ER) | payer MEDICAID ==
[2019-08-06] MEDS ORDERED: ONDANSETRON 4 MG/2 ML VIAL IVP STA ×2 (10:19→12:37)
[2019-08-06] MEDS ORDERED: SODIUM CHLORIDE 0.9% 1,000 ML IV STA (10:19)
[2019-08-06] MEDS ORDERED: MORPHINE 2 MG/ML CARPUJECT IVP STA ×2 (10:23→11:37)
[2019-08-06 10:28] LABS: BASOPHILS # (AUTO) 0.1 10^3/uL (0.0-0.1); BASOPHILS % (AUTO) 1.1 %; EOSINOPHILS # (AUTO) 0.3 10^3/uL (0.0-0.7); EOSINOPHILS % (AUTO) 3.2 %; HGB - HEMOGLOBIN 11.9 g/dL (12.0-16.0); LYMPHOCYTES # (AUTO) 1.8 10^3/uL (1.5-3.5); LYMPHOCYTES % (AUTO) 19.1 %; MEAN CORPUSCULAR HEMOGLOBIN 31.1 pg (27.0-31.0); MEAN CORPUSCULAR HGB CONC 34.2 g/dL (32.0-36.0); MEAN CORPUSCULAR VOLUME 90.9 fL (81.0-99.0); MEAN PLATELET VOLUME 10.8 fL (7.9-10.8); MONOCYTES # (AUTO) 0.5 10^3/uL (0.0-1.0); MONOCYTES % (AUTO) 5.2 %; NEUTROPHILS # (AUTO) 6.7 10^3/uL (1.5-6.6); NEUTROPHILS % (AUTO) 71.1 %; PLT - PLATELET COUNT 302 10^3/uL (130-450); RED BLOOD COUNT 3.83 10^6/uL (4.20-5.40); RED CELL DISTRIBUTION WIDTH 11.6 % (12.0-15.0); WHITE BLOOD COUNT 9.4 x10^3/uL (4.8-10.8)
--- NOTE | 2019-08-06 10:36 | ED Physician Documentation ---
History of Present Illness - Stated complaint Stated Complaint: ABD PX - Chief complaint Chief Complaint: Abd Pain - History obtained from History obtained from: Patient - Additonal information Additional information: Pt comes to the emergency department complaining of upper abdominal pain which started today. Patient has a longstanding history of episodes of abdominal pain for various reasons, including what she normally attributes to gluten exposure. Patient does not have a specific exposures that she can point to this time. She states last time she ate a meal was at dinner last night. Patient states she felt fine at that time but woke up with abdominal pain. Patient states she had some nausea and vomiting earlier. She thinks she may feel a little nauseated. She states the pain is similar to pain she has had before. She states she has had extensive work-up in the past, including CT scans, ultrasounds, and EGD, though she does state her last EGD was about 10 years ago. Patient states that she thinks she has "esophageal spasm". Patient is noted to have had visits approximately every 2 to 4 months for the last year for similar symptoms, with various attributed causes. Patient has been found positive for marijuana previously and this is very suspicion for a variant of cyclical vomiting. However, patient does not have this official diagnosis. Patient denies diarrhea. No dysuria. No fevers or chills. No cough or shortness of breath. Patient states she is otherwise healthy. No sick contacts. She has a history of hysterectomy and appendectomy. She does still have her gallbladder, though she has multiple relatives who have had cholecystectomy. No other complaints at this time. Review of Systems Ten Systems: 10 systems reviewed and negative Constitutional: reports: Reviewed and negative Eyes: reports: Reviewed and negative Ears: reports: Reviewed and negative Nose: reports: Reviewed and negative Throat: reports: Reviewed and negative Cardiac: reports: Reviewed and negative Respiratory: reports: Reviewed and negative GI: reports: Abdominal Pain, Nausea, Vomiting : reports: Reviewed and negative Skin: reports: Reviewed and negative Musculoskeletal: reports: Reviewed and negative Neurologic: reports: Reviewed and negative Psychiatric: reports: Reviewed and negative Endocrine: reports: Reviewed and negative Immunocompromised: reports: Reviewed and negative PD PAST MEDICAL HISTORY - Past Medical History Past Medical History: Yes Cardiovascular: Murmur Respiratory: Asthma Neuro: None Endocrine/Autoimmune: None GI: Hemorrhoids, Other 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 HEENT: None Psych: Anxiety, Post traumatic stress disorder Musculoskeletal: Scoliosis, Other Derm: None - Past Surgical History Past Surgical History: Yes Ortho: Shoulder arthroplasty /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: Hysterectomy Cardiovascular: Other - Present Medications Home Medications: Ambulatory Orders Medication Instructions Recorded Confirmed Ondansetron Odt [Zofran Odt] 4 mg TL Q6H PRN #20 tablet 01/02/17 02/21/17 Albuterol Sulfate [Proventil Hfa] 2 puffs IH QID PRN #1 hfa.aer.ad 01/21/19 Metoclopramide [Reglan] 10 mg PO Q6H PRN #5 tablet 04/02/19 Ondansetron Odt [Zofran] 4 mg TL Q6H PRN #10 tablet 06/08/19 Promethazine [Phenergan] 25 mg PO Q6H PRN #10 tab 06/08/19 Promethazine Supp [Phenergan Supp] 25 mg PA Q6HR PRN 5 Days #20 supp 08/06/19 - Allergies Allergies/Adverse Reactions: Allergies Allergy/AdvReac Type Severity Reaction Status Date / Time amoxicillin [Amoxicillin] Allergy Severe throat Verified 08/06/19 10:17 swells Penicillins Allergy Severe Hives Verified 08/06/19 10:17 pertussis vaccine,adsorbed Allergy Severe seizures Verified 08/06/19 10:17 [Pertussis Vaccine,Adsorbed] NSAIDS (Non-Steroidal Allergy Nausea Verified 08/06/19 10:17 Anti-Inflamma ciprofloxacin [From Cipro] AdvReac Intermediate Cramps Verified 08/06/19 10:17 oxycodone HCl * AdvReac Mild Nausea Verified 08/06/19 10:17 [From Percocet] diphtheria, pertussis, AdvReac Unknown Verified 08/06/19 10:17 tetanus vacc haloperidol [From Haldol] AdvReac Visual Verified 08/06/19 10:17 disturbance meperidine HCl * AdvReac Itching Verified 08/06/19 10:17 [From Demerol] - Social History Does the pt smoke?: No Smoking Status: Never smoker Does the pt drink ETOH?: No Does the pt have substance abuse?: No - Immunizations Immunizations are current?: Yes - POLST Patient has POLST: No PD ED PE NORMAL - Vitals Vital signs reviewed: Yes - General General: Alert and oriented X 3, Well developed/nourished, Other (Moderate epigastric tendernessPatient is writhing and crying, but otherwise in no apparent distress.) - HEENT HEENT: Atraumatic, PERRL, EOMI, Moist mucous membranes - Neck Neck: Supple, no meningeal sign - Cardiac Cardiac: RRR, No murmur - Respiratory Respiratory: No respiratory distress, Clear bilaterally - Abdomen Abdomen: Soft, Non distended, Other - Back Back: No CVA TTP - Derm Derm: Normal color, Warm and dry, No rash - Extremities Extremities: No deformity, Normal ROM s pain, No edema - Neuro Neuro: Alert and oriented X 3, Other (Grossly normal.) - Psych Psych: Other (Patient is tearful and anxious) Results - Vitals Vitals: Oxygen O2 Source Room air - Labs Labs: Laboratory Tests 08/06/19 08/06/19 10:20 10:20 WBC 9.4 RBC 3.83 L Hgb 11.9 L Hct 34.8 L MCV 90.9 MCH 31.1 H MCHC 34.2 RDW 11.6 L Plt Count 302 MPV 10.8 Neut # (Auto) 6.7 H Lymph # (Auto) 1.8 [place] # (Auto) 0.5 Eos # (Auto) 0.3 Baso # (Auto) 0.1 Absolute Nucleated RBC 0.00 Nucleated RBC % 0.0 Sodium 138 Potassium 3.2 L Chloride 102 Carbon Dioxide 26 Anion Gap 10.0 BUN 12 Creatinine 0.9 Estimated GFR (MDRD) 72 L Glucose 93 Calcium 9.3 Total Bilirubin 0.6 AST 20 ALT 15 Alkaline Phosphatase 44 Total Protein 8.0 Albumin 4.8 Globulin 3.2 Albumin/Globulin Ratio 1.5 Lipase 82 H PD MEDICAL DECISION MAKING - ED course Complexity details: reviewed results, re-evaluated patient, considered differential, d/w patient ED course: Patient was worked up with laboratory studies and treated symptomatically with IV fluids, Zofran, and morphine, after which she was feeling better. Labs were unremarkable. As these sx were consistent with prior episodes, I did not feel that imaging was indicated. We have discussed home management of the sx, as well as the usual indications for return. Departure - Departure Disposition: 01 Home, Self Care Clinical Impression: Abdominal pain Qualifiers: Abdominal location: generalized Qualified Code(s): R10.84 - Generalized abdominal pain Vomiting Qualifiers: Vomiting type: bilious vomiting Nausea presence: with nausea Qualified Code(s): R11.14 - Bilious vomiting Condition: Stable Instructions: ED Abdominal Pain Unkn Cause, ED Nausea Vomiting Prescriptions: Promethazine Supp [Phenergan Supp] 25 mg PA Q6HR PRN 5 Days #20 supp PRN Reason: Nausea / Vomiting Comments: Your labs look good. There is no evidence of a new or emergent condition today. Please follow-up with your primary care physician to continue your for referral to a wire stitcher operator. Please take the Zofran and hydrocodone you have at home, as well as the Phenergan suppositories you have been prescribed, to help with your symptoms. Please drink only clear liquids in small amounts until you are able to keep these down. You may then progress back to solid food slowly and in small amounts, as tolerated. Discharge Date/Time: 08/06/19 13:00
[2019-08-06 10:43] LABS: ALBUMIN 4.8 g/dL (3.2-5.5); ALBUMIN/GLOBULIN RATIO 1.5 (1.0-2.2); BILIRUBIN,TOTAL 0.6 mg/dL (0.2-1.0); CALCIUM 9.3 mg/dL (8.5-10.3); CREATININE 0.9 mg/dL (0.4-1.0)
[2019-08-06] MEDS ORDERED: PROMETHAZINE INJ 25 MG in SODIUM CHLORIDE 0.9% 50 ML IV STA (11:37)
[2019-08-06 13:13] VITALS: BP 113/62
== END 2019-08-06 13:00 | disposition home or self-care (01) ==
LOC: EDUNIT# → ED 10:07
DX: R10.84 Generalized abdominal pain (principal); R11.14 Bilious vomiting
CPT/HCPCS: 36415; 80053; 83690; 85025; 96361; 96365; 96375; 96376; 99284; 99285; J7040

== ENCOUNTER 2019-08-07 12:53 | Emergency (ER) | payer MEDICAID ==
[2019-08-07 13:40] LABS: BASOPHILS % (AUTO) 0.2 %; EOSINOPHILS % (AUTO) 0.2 %; HGB - HEMOGLOBIN 12.7 g/dL (12.0-16.0); LYMPHOCYTES # (AUTO) 1.4 10^3/uL (1.5-3.5); LYMPHOCYTES % (AUTO) 11.2 %; MEAN CORPUSCULAR HEMOGLOBIN 31.6 pg (27.0-31.0); MEAN CORPUSCULAR HGB CONC 35.6 g/dL (32.0-36.0); MEAN CORPUSCULAR VOLUME 88.8 fL (81.0-99.0); MEAN PLATELET VOLUME 10.8 fL (7.9-10.8); MONOCYTES # (AUTO) 0.7 10^3/uL (0.0-1.0); MONOCYTES % (AUTO) 5.6 %; NEUTROPHILS # (AUTO) 10.3 10^3/uL (1.5-6.6); NEUTROPHILS % (AUTO) 82.3 %; PLT - PLATELET COUNT 313 10^3/uL (130-450); RED BLOOD COUNT 4.02 10^6/uL (4.20-5.40); RED CELL DISTRIBUTION WIDTH 11.3 % (12.0-15.0); WHITE BLOOD COUNT 12.5 x10^3/uL (4.8-10.8)
[2019-08-07 13:52] LABS: ALBUMIN 4.4 g/dL (3.2-5.5); ALBUMIN/GLOBULIN RATIO 1.3 (1.0-2.2); BILIRUBIN,TOTAL 0.9 mg/dL (0.2-1.0); CALCIUM 9.4 mg/dL (8.5-10.3); CREATININE 0.8 mg/dL (0.4-1.0); TOTAL PROTEIN 7.7 g/dL (6.7-8.2)
[2019-08-07] MEDS ORDERED: HALOPERIDOL 5 MG/ML VIAL IVP ONE (13:52)
[2019-08-07] MEDS ORDERED: SODIUM CHLORIDE 0.9% 1,000 ML IV STA (13:52)
[2019-08-07] MEDS ORDERED: MORPHINE 2 MG/ML CARPUJECT IVP STA (13:53)
--- NOTE | 2019-08-07 14:00 | ED Physician Documentation ---
History of Present Illness - Stated complaint Stated Complaint: LIGHTHEADED - Chief complaint Chief Complaint: General - History obtained from History obtained from: Patient - Additonal information Additional information: 33-year-old woman with recurrent problems with pain from an esophageal spasm issue. Has had this pain for several days now. Is in epigastric pain nonradiating associated with severe nausea. She is had it many times in the past. She says she does not use marijuana. Note made that all recent drug screens have been positive for same. She is under a lot of stress, her packed up and left with the kids about a week ago. This may be relevant to her current exacerbation. Review of Systems Constitutional: reports: Weight Loss. 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 DISK QUALITY CONTROL SUPERVISOR: Hysterectomy Cardiovascular: Other - Present Medications Home Medications: Ambulatory Orders Medication Instructions Recorded Confirmed Ondansetron Odt [Zofran Odt] 4 mg TL Q6H PRN #20 tablet 01/02/17 02/21/17 Albuterol Sulfate [Proventil Hfa] 2 puffs IH QID PRN #1 hfa.aer.ad 01/21/19 Metoclopramide [Reglan] 10 mg PO Q6H PRN #5 tablet 04/02/19 Ondansetron Odt [Zofran] 4 mg TL Q6H PRN #10 tablet 06/08/19 Promethazine [Phenergan] 25 mg PO Q6H PRN #10 tab 06/08/19 Promethazine Supp [Phenergan Supp] 25 mg [place] Q6HR PRN 5 Days #20 supp 08/06/19 - Allergies Allergies/Adverse Reactions: Allergies Allergy/AdvReac Type Severity Reaction Status Date / Time amoxicillin [Amoxicillin] Allergy Severe throat Verified 08/06/19 10:17 swells Penicillins Allergy Severe Hives Verified 08/06/19 10:17 pertussis vaccine,adsorbed Allergy Severe seizures Verified 08/06/19 10:17 [Pertussis Vaccine,Adsorbed] NSAIDS (Non-Steroidal Allergy Nausea Verified 08/06/19 10:17 Anti-Inflamma ciprofloxacin [From Cipro] AdvReac Intermediate Cramps Verified 08/06/19 10:17 oxycodone HCl * AdvReac Mild Nausea Verified 08/06/19 10:17 [From Percocet] diphtheria, pertussis, AdvReac Unknown Verified 08/06/19 10:17 tetanus vacc haloperidol [From Haldol] AdvReac Visual Verified 08/06/19 10:17 disturbance meperidine HCl * AdvReac Itching Verified 08/06/19 10:17 [From Demerol] - Social History Does the pt smoke?: No Smoking Status: Never smoker Does the pt drink ETOH?: No Does the pt have substance abuse?: No - Immunizations Immunizations are current?: Yes - POLST Patient has POLST: No PD ED PE NORMAL - Vitals Vital signs reviewed: Yes - General General: Alert and oriented X 3, Other (Tearful) - Abdomen Abdomen: Normal bowel sounds, Soft, Non tender - Neuro Neuro: Alert and oriented X 3, Normal speech Results - Vitals Vitals: Vital Signs - 24 hr 08/07/19 08/07/19 12:55 14:28 Temperature 36.4 C L 37.1 C Heart Rate 72 62 Respiratory 16 12 Rate Blood Pressure 119/73 94/54 L O2 Saturation 99 97 Oxygen O2 Source Room air - Labs Labs: Laboratory Tests 08/07/19 08/07/19 08/07/19 13:32 13:32 14:47 WBC 12.5 H RBC 4.02 L Hgb 12.7 Hct 35.7 L MCV 88.8 MCH 31.6 H MCHC 35.6 RDW 11.3 L Plt Count 313 MPV 10.8 Neut # (Auto) 10.3 H Lymph # (Auto) 1.4 L [place] # (Auto) 0.7 Eos # (Auto) 0.0 Baso # (Auto) 0.0 Absolute Nucleated RBC 0.00 Nucleated RBC % 0.0 Sodium 135 Potassium 3.4 L Chloride 97 L Carbon Dioxide 24 Anion Gap 14.0 H BUN 13 Creatinine 0.8 Estimated GFR (MDRD) 82 L Glucose 101 H Calcium 9.4 Total Bilirubin 0.9 AST 21 ALT 17 Alkaline Phosphatase 43 Total Protein 7.7 Albumin 4.4 Globulin 3.3 Albumin/Globulin Ratio 1.3 Lipase 216 H Urine Color YELLOW Urine Clarity CLEAR Urine pH 6.5 Ur Specific [place] 1.025 Urine Protein 100 H Urine Glucose (UA) NEGATIVE Urine Ketones >=80 H Urine Occult Blood NEGATIVE Urine Nitrite NEGATIVE Urine Bilirubin NEGATIVE Urine Urobilinogen 0.2 (NORMAL) Ur Leukocyte Esterase NEGATIVE Urine RBC None Seen Urine WBC 0-3 Ur Squamous Epith Cells MOD Squamous H Urine Bacteria Moderate H Ur Microscopic Review INDICATED Urine Culture Comments NOT INDICATED Urine Opiates Screen POSITIVE H Ur Oxycodone Screen NEGATIVE Urine Methadone Screen NEGATIVE Ur Propoxyphene Screen NEGATIVE Ur Barbiturates Screen NEGATIVE Ur Tricyclics Screen NEGATIVE Ur Phencyclidine Scrn NEGATIVE Ur Amphetamine Screen NEGATIVE U Methamphetamines Scrn NEGATIVE U Benzodiazepines Scrn NEGATIVE Urine Cocaine Screen NEGATIVE U Cannabinoids Screen POSITIVE H PD MEDICAL DECISION MAKING - ED course ED course: 33-year-old woman with recurrent upper abdominal pain, previous diagnosis esophageal spasm. She was treated stepwise with medications here with resolution of her symptoms and feeling like she could go home. She did pass an oral challenge here. Note made of positive marijuana screen as have all been all of the other screens recently. She denies use. But has been around people who use marijuana. Departure - Departure Disposition: 01 Home, Self Care Clinical Impression: Recurrent abdominal pain Condition: Good Record reviewed to determine appropriate education?: Yes Instructions: ED Abdominal Pain Unkn Cause Comments: Call your doctor to arrange a follow-up appointment, make the next available appointment. In the interim, return anytime if worse or if new symptoms develop.
[2019-08-07] MEDS ORDERED: ONDANSETRON 4 MG/2 ML VIAL IVP STA (14:26)
[2019-08-07] MEDS ORDERED: MAG HYDROX/AL HYDROX/SIMETH 30 ML UDC PO STA (14:26)
[2019-08-07] MEDS ORDERED: LIDOCAINE VISCOUS 2% 15 ML UDC MM STA (14:26)
[2019-08-07 15:17] LABS: MUDS CUTOFF CONCENTRATIONS CUTOFF CONC BELOW:
[2019-08-07 15:24] LABS: GLUCOSE, URINE (UA) NEGATIVE (NEGATIVE); KETONES,URINE (UA) >=80 mg/dL (NEGATIVE); LEUKOCYTE ESTERASE, URINE NEGATIVE (NEGATIVE); NITRITE,URINE NEGATIVE (NEGATIVE); OCCULT BLOOD,URINE NEGATIVE (NEGATIVE); PH,URINE 6.5 PH (5.0-7.5); PROTEIN,URINE 100 mg/dL (NEGATIVE); UROBILINOGEN,URINE 0.2 (NORMAL) E.U./dL (NORMAL)
[2019-08-07 15:35] LABS: AMPHETAMINE SCREEN,URINE NEGATIVE (NEGATIVE); BENZODIAZEPINES SCREEN, URINE NEGATIVE (NEGATIVE); BILIRUBIN,URINE NEGATIVE (NEGATIVE); CLARITY,URINE CLEAR (CLEAR); COCAINE SCREEN URINE NEGATIVE (NEGATIVE); ICTOTEST,URINE NEGATIVE; METHADONE SCREEN, URINE NEGATIVE (NEGATIVE); METHAMPHETAMINES SCREEN, URINE NEGATIVE (NEGATIVE); OPIATE SCREEN, URINE POSITIVE (NEGATIVE); OXYCODONE SCREEN, URINE NEGATIVE (NEGATIVE); PROPOXYPHENE SCREEN, URINE NEGATIVE (NEGATIVE); TRICYCLIC ANTIDEPRESSANT,URINE NEGATIVE (NEGATIVE)
[2019-08-07 15:40] LABS: BACTERIA,URINE Moderate /HPF (None Seen); RBC,URINE None Seen /HPF (0-5); SQUAMOUS EPITHELIAL CELL,UR MOD Squamous (<= Few)
[2019-08-07 16:17] VITALS: BP 102/67
== END 2019-08-07 16:15 | disposition home or self-care (01) ==
LOC: ED 12:53
DX: R10.9 Unspecified abdominal pain (principal)
CPT/HCPCS: 36415; 80053; 80306; 81001; 83690; 85025; 96374; 96375; 99283; A9270; 81003; 87086

== ENCOUNTER 2019-11-25 15:24 | Outpatient (CLI) | payer MEDICAID ==
--- NOTE | 2019-11-25 15:26 | XRAY Report ---
PROCEDURE: Elbow 2 View RT INDICATIONS: R ELBOW JOINT PAIN TECHNIQUE: 2 views of the elbow were acquired. COMPARISON: None FINDINGS: Bones: No fractures or dislocations. No suspicious bony lesions. Soft tissues: No elbow joint effusion. No suspicious soft tissue calcifications. IMPRESSION: No elbow fracture or dislocation. No joint effusion. Reviewed by: Artur Summers MD on 11/25/2019 3:25 PM PDT Approved by: Artur Summers MD on 11/25/2019 3:25 PM PDT Station ID: [id number]
== END 2019-11-25 23:59 | disposition home or self-care (01) ==
LOC: DI.WCP 15:24
PROVIDERS: ATTEND Family Medicine
DX: M25.521 Pain in right elbow (principal)

== ENCOUNTER 2020-04-13 14:34 | Outpatient (CLI) | payer MEDICAID | END 2020-04-13 14:35 | disposition critical access hospital (66) | LOC: EMS 14:34 | PROVIDERS: ATTEND Registered Nurse | DX: R10.9 Unspecified abdominal pain (principal); R11.2 Nausea with vomiting, unspecified | CPT/HCPCS: A0425; A0427 ==

== ENCOUNTER 2020-04-13 14:55 | Emergency (ER) | payer MEDICAID ==
[2020-04-13] MEDS ORDERED: SODIUM CHLORIDE 0.9% 1,000 ML IV STA ×2 (15:00→15:07)
[2020-04-13] MEDS ORDERED: ONDANSETRON 4 MG/2 ML VIAL IVP STA (15:00)
[2020-04-13] MEDS ORDERED: MAG HYDROX/AL HYDROX/SIMETH 30 ML UDC PO STA (15:07)
[2020-04-13 15:17] LABS: BASOPHILS # (AUTO) 0.1 10^3/uL (0.0-0.1); BASOPHILS % (AUTO) 0.9 %; EOSINOPHILS # (AUTO) 0.4 10^3/uL (0.0-0.7); EOSINOPHILS % (AUTO) 3.4 %; HCT - HEMATOCRIT 34.4 % (37.0-47.0); HGB - HEMOGLOBIN 11.7 g/dL (12.0-16.0); LYMPHOCYTES % (AUTO) 17.9 %; MEAN CORPUSCULAR HEMOGLOBIN 31.1 pg (27.0-31.0); MEAN CORPUSCULAR VOLUME 91.5 fL (81.0-99.0); MEAN PLATELET VOLUME 10.6 fL (7.9-10.8); MONOCYTES # (AUTO) 0.7 10^3/uL (0.0-1.0); MONOCYTES % (AUTO) 6.1 %; NEUTROPHILS % (AUTO) 71.3 %; PLT - PLATELET COUNT 252 10^3/uL (130-450); RED BLOOD COUNT 3.76 10^6/uL (4.20-5.40); WHITE BLOOD COUNT 11.2 x10^3/uL (4.8-10.8)
[2020-04-13 15:27] LABS: ALBUMIN 4.4 g/dL (3.2-5.5); ALBUMIN/GLOBULIN RATIO 1.6 (1.0-2.2); BILIRUBIN,TOTAL 0.7 mg/dL (0.2-1.0); CALCIUM 9.2 mg/dL (8.5-10.3); CREATININE 0.7 mg/dL (0.4-1.0); POTASSIUM 3.7 mmol/L (3.5-5.0); TOTAL PROTEIN 7.2 g/dL (6.7-8.2)
--- NOTE | 2020-04-13 15:29 | ED Physician Documentation ---
History of Present Illness - Stated complaint Stated Complaint: VOMITING - Chief complaint Chief Complaint: Allergic Rx - Additonal information Additional information: 34-year-old female who reports a history of gluten intolerance presents the emergency department with uncontrolled vomiting after she ate a gluten-free take and bake pizza yesterday. She is concerned that perhaps what she ate was not gluten-free. She states that she has a history of esophageal spasms and when she begins vomiting it makes swallowing difficult. She reports that they typically resolve after getting lidocaine and Maalox. Her usual doses of Zofran have not helped. She denies hematic emesis hematochezia or melena. No fevers. Denies abdominal pain dysuria urgency or frequency. Past surgical history includes previous hysterectomy. Review of Systems Constitutional: reports: Reviewed and negative Ears: reports: Reviewed and negative Nose: reports: Reviewed and negative Throat: reports: Reviewed and negative Cardiac: reports: Reviewed and negative Respiratory: reports: Reviewed and negative GI: reports: Nausea, Vomiting. 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: None : None HEENT: None Psych: Anxiety, Post traumatic stress disorder Musculoskeletal: Scoliosis, Other Derm: None - Past Surgical History Past Surgical History: Yes Ortho: Shoulder arthroplasty /MANAGER OFFICE SERVICES: Hysterectomy Cardiovascular: Other - Present Medications Home Medications: Ambulatory Orders Medication Instructions Recorded Confirmed Ondansetron Odt [Zofran Odt] 4 mg TL Q6H PRN #20 tablet 01/02/17 02/21/17 Albuterol Sulfate [Proventil Hfa] 2 puffs IH QID PRN #1 hfa.aer.ad 01/21/19 Metoclopramide [Reglan] 10 mg PO Q6H PRN #5 tablet 04/02/19 Ondansetron Odt [Zofran] 4 mg TL Q6H PRN #10 tablet 06/08/19 Promethazine [Phenergan] 25 mg PO Q6H PRN #10 tab 06/08/19 Promethazine Supp [Phenergan Supp] 25 mg [place] Q6HR PRN 5 Days #20 supp 08/06/19 Promethazine [Phenergan] 25 mg PO Q6H PRN #10 tab 09/16/19 Ondansetron Odt [Zofran] 4 mg TL Q6H PRN #10 tablet 04/13/20 - Allergies Allergies/Adverse Reactions: Allergies Allergy/AdvReac Type Severity Reaction Status Date / Time amoxicillin [Amoxicillin] Allergy Severe throat Verified 04/13/20 15:06 swells Penicillins Allergy Severe Hives Verified 04/13/20 15:06 pertussis vaccine,adsorbed Allergy Severe seizures Verified 04/13/20 15:06 [Pertussis Vaccine,Adsorbed] NSAIDS (Non-Steroidal Allergy Nausea Verified 04/13/20 15:06 Anti-Inflamma ciprofloxacin [From Cipro] AdvReac Intermediate Cramps Verified 04/13/20 15:06 oxycodone HCl * AdvReac Mild Nausea Verified 04/13/20 15:06 [From Percocet] diphtheria, pertussis, AdvReac Unknown Verified 04/13/20 15:06 tetanus vacc haloperidol [From Haldol] AdvReac Visual Verified 04/13/20 15:06 disturbance meperidine HCl * AdvReac Itching Verified 04/13/20 15:06 [From Demerol] - Social History Does the pt smoke?: No Smoking Status: Never smoker Does the pt drink ETOH?: No Does the pt have substance abuse?: No - Immunizations Immunizations are current?: Yes - POLST Patient has POLST: No PD ED PE EXPANDED - General General: Alert, No acute distress - Cardiac Cardiac: Regular Rate, Regular Rhythm, Radial strong equal, Pedal strong equal, Cap refill < 2 sec. No: Murmur Present - Respiratory Respiratory: Clear to ausultation scot. No: Distress, Labored - Abdomen Abdomen: Normal Bowel sounds, Tender to palpation (Mild epigastric tenderness without rebound) - Derm Derm: Normal color, Rash - Neuro Neuro: Alert and Oriented X 3, CNII-XII intact - GCS Eye Opening: Spontaneous Motor: Obeys Commands Verbal: Oriented Total: 15 Results - Vitals Vitals: Vital Signs - 24 hr 04/13/20 04/13/20 15:00 17:34 Temperature 36.4 C L 36.8 C Heart Rate 63 69 Respiratory 18 18 Rate Blood Pressure 112/68 115/67 O2 Saturation 99 100 Oxygen O2 Source Room air - Labs Labs: Laboratory Tests 04/13/20 04/13/20 04/13/20 15:09 15:09 16:01 WBC 11.2 H RBC 3.76 L Hgb 11.7 L Hct 34.4 L MCV 91.5 MCH 31.1 H MCHC 34.0 RDW 11.0 L Plt Count 252 MPV 10.6 Neut # (Auto) 8.0 H Lymph # (Auto) 2.0 [place] # (Auto) 0.7 Eos # (Auto) 0.4 Baso # (Auto) 0.1 Absolute Nucleated RBC 0.00 Nucleated RBC % 0.0 Sodium 136 Potassium 3.7 Chloride 103 Carbon Dioxide 25 Anion Gap 8.0 BUN 14 Creatinine 0.7 Estimated GFR (MDRD) 95 Glucose 93 Calcium 9.2 Total Bilirubin 0.7 AST 18 ALT 15 Alkaline Phosphatase 39 L Total Protein 7.2 Albumin 4.4 Globulin 2.8 Albumin/Globulin Ratio 1.6 Lipase 30 Urine Color YELLOW Urine Clarity CLEAR Urine pH 5.5 Ur Specific [place] 1.025 Urine Protein NEGATIVE Urine Glucose (UA) NEGATIVE Urine Ketones NEGATIVE Urine Occult Blood NEGATIVE Urine Nitrite NEGATIVE Urine Bilirubin NEGATIVE Urine Urobilinogen 0.2 (NORMAL) Ur Leukocyte Esterase NEGATIVE Ur Microscopic Review NOT INDICATED Urine Culture Comments NOT INDICATED PD MEDICAL DECISION MAKING - ED course Complexity details: reviewed results, re-evaluated patient, considered differential, d/w patient ED course: 34-year-old female presents the emergency department for evaluation of uncontrolled vomiting that began last night after eating a pizza. She suspects that it may have been contaminated with gluten or a nongluten pizza. Here her screening labs she has a very mild leukocytosis. No fevers tachycardia or hypotension. Urine shows no signs of infection. She states that the symptoms occur after vomiting when she develops esophageal spasms which will improve after receiving Maalox and lidocaine. These 2 medications were given to her with improvement in the nausea and vomiting. She also received Zofran and Compazine. Following this she was able to tolerate oral liquids. She felt ready for discharge home. She did request a prescription for Zofran. We discussed that if her symptoms are not improving despite the Zofran she is to return to the emergency department. At that point we would consider CT scanning of the abdomen. Departure - Departure Disposition: 01 Home, Self Care Clinical Impression: Vomiting Qualifiers: Vomiting type: unspecified Vomiting Intractability: non-intractable Nausea presence: without nausea Qualified Code(s): R11.11 - Vomiting without nausea Condition: Stable Record reviewed to determine appropriate education?: Yes Follow-Up: Daniel Ghosh DO [Primary Care Provider] - Prescriptions: Ondansetron Odt [Zofran] 4 mg TL Q6H PRN #10 tablet PRN Reason: Nausea / Vomiting Comments: Carmina your labs today in the emergency department were essentially normal. Urine shows no signs of infection. Your symptoms improved after receiving Zofran and Compazine in the ER. The anxiety and nervousness that you felt after the Compazine can be a typical reaction. This improved after receiving Benadryl. I would like you to fill the prescription for the Zofran and take as needed. Return to the ER if you find your symptoms are not improving, you have suddenly severe abdominal pain fevers bloody vomit or diarrhea
[2020-04-13] MEDS ORDERED: PROCHLORPERAZINE 10 MG/2 ML VIAL IVP STA (16:03)
[2020-04-13 16:06] LABS: BILIRUBIN,URINE NEGATIVE (NEGATIVE); CLARITY,URINE CLEAR (CLEAR); GLUCOSE, URINE (UA) NEGATIVE (NEGATIVE); KETONES,URINE (UA) NEGATIVE (NEGATIVE); LEUKOCYTE ESTERASE, URINE NEGATIVE (NEGATIVE); NITRITE,URINE NEGATIVE (NEGATIVE); OCCULT BLOOD,URINE NEGATIVE (NEGATIVE); PH,URINE 5.5 PH (5.0-7.5); PROTEIN,URINE NEGATIVE (NEGATIVE); UROBILINOGEN,URINE 0.2 (NORMAL) E.U./dL (NORMAL)
[2020-04-13] MEDS ORDERED: diphenhydrAMINE INJ 50 MG/ML VIAL IVP STA (16:57)
[2020-04-13 18:08] VITALS: BP 119/68
== END 2020-04-13 18:08 | disposition home or self-care (01) ==
LOC: EDUNIT# → ED 14:55
DX: R11.10 Vomiting, unspecified (principal)
CPT/HCPCS: 36415; 80053; 81003; 83690; 85025; 96374; 96375; 99283; 99284; A9270; J1200; 81001; 87086

== ENCOUNTER 2020-08-15 08:00 | Outpatient (CLI) | payer MEDICAID | END 2020-08-15 08:01 | disposition home or self-care (01) | LOC: LAB.N 08:00 | PROVIDERS: ATTEND Nurse Practitioner | DX: R05 Cough (principal); Z20.822 Contact with and (suspected) exposure to COVID-19 ==

== ENCOUNTER 2020-11-13 20:12 | Outpatient (CLI) | payer MEDICAID | END 2020-11-13 20:13 | disposition critical access hospital (66) | LOC: EMS 20:12 | DX: R10.9 Unspecified abdominal pain (principal); R11.2 Nausea with vomiting, unspecified; R19.7 Diarrhea, unspecified | CPT/HCPCS: A0425; A0427; A0999 ==

== ENCOUNTER 2020-11-13 20:31 | Emergency (ER) | payer MEDICAID ==
[2020-11-13] MEDS ORDERED: SODIUM CHLORIDE 0.9% 1,000 ML IV STA (20:45)
[2020-11-13] MEDS ORDERED: PROCHLORPERAZINE 10 MG/2 ML VIAL IVP STA (20:46)
[2020-11-13] MEDS ORDERED: DROPERIDOL 5 MG/2 ML VIAL IVP STA (20:51)
[2020-11-13] MEDS ORDERED: PANTOPRAZOLE 40 MG VIAL IVP STA (20:51)
--- NOTE | 2020-11-13 20:56 | ED Physician Documentation ---
History of Present Illness - Stated complaint Stated Complaint: N/V/D - Chief complaint Chief Complaint: Abd Pain - Additonal information Additional information: 35-year-old female presents the emergency department for evaluation of uncontro lled nausea vomiting and diarrhea. Patient reports that began this afternoon after she ate fish and chips at the [employer]. She has a longstanding history of what she reports is a gluten allergy and thinks of fish and chips may have had gluten in it. She also reports a history of spasms in her esophagus that has never been adequately treated. She typically will take Zofran at home for her nausea. She denies any recent cannabis use. All of her drug screens in the past however have been positive for cannabis. She has some generalized abdominal cramping but no focal tenderness. Denies dysuria urgency or frequency. Denies possibility of given history of hysterectomy. Review of Systems Constitutional: denies: Fever, Chills Eyes: reports: Reviewed and negative Nose: reports: Reviewed and negative Throat: reports: Reviewed and negative Cardiac: reports: Reviewed and negative Respiratory: reports: Reviewed and negative GI: reports: Abdominal Pain, Nausea, Vomiting, Diarrhea : reports: Reviewed and negative Skin: reports: Reviewed and negative PD PAST MEDICAL HISTORY - Past Medical History Cardiovascular: Murmur Respiratory: Asthma Neuro: None Endocrine/Autoimmune: None GI: Hemorrhoids, Other CAD INTERN: None : None HEENT: None Psych: Anxiety, Post traumatic stress disorder Musculoskeletal: Scoliosis, Other Derm: None - Past Surgical History Past Surgical History: Yes Ortho: Shoulder arthroplasty /CAD INTERN: Hysterectomy Cardiovascular: Other - Present Medications Home Medications: Ambulatory Orders Medication Instructions Recorded Confirmed Ondansetron Odt [Zofran] 4 mg TL Q6H PRN #10 tablet 11/13/20 - Allergies Allergies/Adverse Reactions: Allergies Allergy/AdvReac Type Severity Reaction Status Date / Time amoxicillin [Amoxicillin] Allergy Severe throat Verified 11/13/20 20:39 swells Penicillins Allergy Severe Hives Verified 11/13/20 20:39 pertussis vaccine,adsorbed Allergy Severe seizures Verified 11/13/20 20:39 [Pertussis Vaccine,Adsorbed] NSAIDS (Non-Steroidal Allergy Nausea Verified 11/13/20 20:39 Anti-Inflamma ciprofloxacin [From Cipro] AdvReac Intermediate Cramps Verified 11/13/20 20:39 oxycodone HCl * AdvReac Mild Nausea Verified 11/13/20 20:39 [From Percocet] diphtheria, pertussis, AdvReac Unknown Verified 11/13/20 20:39 tetanus vacc haloperidol [From Haldol] AdvReac Visual Verified 11/13/20 20:39 disturbance meperidine HCl * AdvReac Itching Verified 11/13/20 20:39 [From Demerol] - Social History Does the pt smoke?: No Smoking Status: Never smoker Does the pt drink ETOH?: No Does the pt have substance abuse?: No - Immunizations Immunizations are current?: Yes - POLST Patient has POLST: No PD ED PE EXPANDED - General General: Alert, Other (Thin appearance) - Cardiac Cardiac: Regular Rate, Radial strong equal, Pedal strong equal, Cap refill < 2 sec - Respiratory Respiratory: Clear to ausultation scot. No: Distress, Labored - Abdomen Abdomen: Hyperactive BS, Tender to palpation (genernalized non focal abdomianl pain without guarding or rebound. non peritoneal) - Derm Derm: Normal color, Warm and dry. No: Rash - Extremities Extremities: Normal. No: Deformity, Tenderness, Pedal edema bilateral - Neuro Neuro: Alert and Oriented X 3, CNII-XII intact - GCS Eye Opening: Spontaneous Motor: Obeys Commands Verbal: Oriented Total: 15 Results - Vitals Vitals: Vital Signs - 24 hr 11/13/20 11/13/20 11/13/20 20:40 21:14 21:25 Temperature 36.4 C L Heart Rate 88 80 74 Respiratory 18 16 16 Rate Blood Pressure 111/55 L 118/71 118/71 O2 Saturation 100 98 100 Oxygen O2 Source Room air - Labs Labs: Laboratory Tests 11/13/20 11/13/20 21:06 21:06 WBC 18.0 H RBC 3.79 L Hgb 11.5 L Hct 35.9 L MCV 94.7 MCH 30.3 MCHC 32.0 RDW 11.2 L Plt Count 247 MPV 11.0 H Neut # (Auto) 16.6 H Lymph # (Auto) 0.7 L [place] # (Auto) 0.4 Eos # (Auto) 0.0 Baso # (Auto) 0.1 Absolute Nucleated RBC 0.00 Nucleated RBC % 0.0 Creatinine 0.8 Estimated GFR (MDRD) 81 L Glucose 188 H Total Bilirubin 0.6 AST 25 ALT 17 Alkaline Phosphatase 36 L Total Protein 7.4 Albumin 4.4 Globulin 3.0 Albumin/Globulin Ratio 1.5 Lipase 21 L PD MEDICAL DECISION MAKING - ED course Complexity details: reviewed old records, reviewed results, d/w patient ED course: 35-year-old female presents the emergency department for evaluation of uncontrolled nausea vomiting and diarrhea after she reportedly ate fish and she was at the [employer]. Longstanding history of vomiting which she attributes to esophageal spasm as well as gluten intolerance. However multiple drug screens have been positive for cannabis. She denies any recent use. Screening labs do show a moderate leukocytosis. This is likely stress reactant. She has no fevers. Abdominal exam was relatively benign with no focal tenderness elicited. Deferred imaging with today's visit. Screening electrolytes without acute worrisome abnormalities. Patient was given the liter of IV fluids here in the emergency department as well as some droperidol with good relief of symptoms and now tolerating p.o. fluids. Limited prescription for Zofran was sent to the pharmacy. Emergent return precautions discussed. Departure - Departure Disposition: 01 Home, Self Care Clinical Impression: Nausea & vomiting Qualifiers: Vomiting type: unspecified Vomiting Intractability: non-intractable Qualified Code(s): R11.2 - Nausea with vomiting, unspecified Condition: Stable Record reviewed to determine appropriate education?: Yes Prescriptions: Ondansetron Odt [Zofran] 4 mg TL Q6H PRN #10 tablet PRN Reason: Nausea / Vomiting Comments: You are seen today in the emergency department for nausea vomiting and diarrhea. Your concern that you may have eaten bad food at the [employer]. We did give you some droperidol here in the emergency department which resolved the symptoms. I have prescribed some Zofran for you to take at home as needed. I recommend clear liquids for the next 24 hours and then slowly advance bananas, rice applesauce and toast. If you are smoking cannabis I recommend that you abstain for at least several days. Return to the emergency department for fevers, suddenly severe or different abdominal pain, black or bloody stools.
[2020-11-13 21:09] LABS: BASOPHILS # (AUTO) 0.1 10^3/uL (0.0-0.1); BASOPHILS % (AUTO) 0.4 %; EOSINOPHILS % (AUTO) 0.2 %; HCT - HEMATOCRIT 35.9 % (37.0-47.0); HGB - HEMOGLOBIN 11.5 g/dL (12.0-16.0); LYMPHOCYTES # (AUTO) 0.7 10^3/uL (1.5-3.5); MEAN CORPUSCULAR HEMOGLOBIN 30.3 pg (27.0-31.0); MEAN CORPUSCULAR VOLUME 94.7 fL (81.0-99.0); MONOCYTES # (AUTO) 0.4 10^3/uL (0.0-1.0); MONOCYTES % (AUTO) 2.4 %; NEUTROPHILS # (AUTO) 16.6 10^3/uL (1.5-6.6); NEUTROPHILS % (AUTO) 92.4 %; PLT - PLATELET COUNT 247 10^3/uL (130-450); RED BLOOD COUNT 3.79 10^6/uL (4.20-5.40); RED CELL DISTRIBUTION WIDTH 11.2 % (12.0-15.0)
[2020-11-13 21:43] LABS: ALBUMIN 4.4 g/dL (3.2-5.5); ALBUMIN/GLOBULIN RATIO 1.5 (1.0-2.2); BILIRUBIN,TOTAL 0.6 mg/dL (0.2-1.0); CREATININE 0.8 mg/dL (0.4-1.0); TOTAL PROTEIN 7.4 g/dL (6.7-8.2)
[2020-11-13 21:55] LABS: CALCIUM 9.3 mg/dL (8.5-10.3); POTASSIUM 3.3 mmol/L (3.5-5.0)
[2020-11-13 22:08] VITALS: BP 115/73
== END 2020-11-13 22:05 | disposition home or self-care (01) ==
LOC: EDUNIT# → ED 20:31
DX: R11.2 Nausea with vomiting, unspecified (principal); R19.7 Diarrhea, unspecified; Z91.018 Allergy to other foods
CPT/HCPCS: 36415; 80053; 83690; 85025; 96361; 96374; 96375; 99284

== ENCOUNTER 2021-07-20 08:00 | Outpatient (CLI) | payer MEDICAID ==
--- NOTE | 2021-07-21 09:41 | XRAY Report ---
PROCEDURE: Knee 3 View LT INDICATIONS: PAIN IN LEFT KNEE TECHNIQUE: 3 views of the left knee(s) were acquired. COMPARISON: Left knee MRI dated 01/30/2013 FINDINGS: Bones: No acute fractures or dislocations. No suspicious bony lesions. Multiple scattered bone isl ands are again noted in the proximal tibia and distal femur. Soft tissues: No joint effusion. No suspicious soft tissue calcifications. IMPRESSION: Left knee without acute fracture or dislocation. No significant degenerative changes. Reviewed by: Venancio Reid MD on 07/21/2021 9:40 AM PDT Approved by: Venancio Reid MD on 07/21/2021 9:40 AM PDT Station ID: [id number]
== END 2021-07-20 23:59 | disposition home or self-care (01) ==
LOC: DI.N 08:00
PROVIDERS: ATTEND Registered Nurse
DX: M25.562 Pain in left knee (principal)

== ENCOUNTER 2022-01-05 07:24 | Outpatient (CLI) | payer MEDICAID | END 2022-01-05 07:25 | disposition critical access hospital (66) | LOC: EMS 07:24 | DX: R11.2 Nausea with vomiting, unspecified (principal); R10.9 Unspecified abdominal pain | CPT/HCPCS: A0425; A0427; A0999 ==

== ENCOUNTER 2022-01-05 07:42 | Emergency (ER) | payer MEDICAID ==
[2022-01-05 07:55] LABS: BASOPHILS % (AUTO) 0.1 %; HCT - HEMATOCRIT 32.4 % (37.0-47.0); HGB - HEMOGLOBIN 11.5 g/dL (12.0-16.0); LYMPHOCYTES # (AUTO) 0.7 10^3/uL (1.5-3.5); LYMPHOCYTES % (AUTO) 6.3 %; MEAN CORPUSCULAR HEMOGLOBIN 31.1 pg (27.0-31.0); MEAN CORPUSCULAR HGB CONC 35.5 g/dL (32.0-36.0); MEAN CORPUSCULAR VOLUME 87.6 fL (81.0-99.0); MEAN PLATELET VOLUME 10.5 fL (7.9-10.8); MONOCYTES # (AUTO) 0.2 10^3/uL (0.0-1.0); MONOCYTES % (AUTO) 2.1 %; NEUTROPHILS # (AUTO) 10.1 10^3/uL (1.5-6.6); NEUTROPHILS % (AUTO) 91.3 %; PLT - PLATELET COUNT 258 10^3/uL (130-450); RED CELL DISTRIBUTION WIDTH 10.9 % (12.0-15.0); WHITE BLOOD COUNT 11.1 x10^3/uL (4.8-10.8)
[2022-01-05] MEDS ORDERED: PROMETHAZINE INJ 25 MG in SODIUM CHLORIDE 0.9% 50 ML IV STA (08:05)
[2022-01-05] MEDS ORDERED: MORPHINE 2 MG/ML CARPUJECT IVP STA (08:05)
[2022-01-05] MEDS ORDERED: SODIUM CHLORIDE 0.9% 1,000 ML IV STA (08:05)
[2022-01-05 08:08] LABS: ALBUMIN 5.1 g/dL (3.2-5.5); ALBUMIN/GLOBULIN RATIO 1.7 (1.0-2.2); BILIRUBIN,TOTAL 0.8 mg/dL (0.2-1.0); CALCIUM 9.9 mg/dL (8.5-10.3); CREATININE 0.7 mg/dL (0.4-1.0); POTASSIUM 3.2 mmol/L (3.5-5.0); TOTAL PROTEIN 8.1 g/dL (6.7-8.2)
--- OUTSIDE RECORDS SUMMARY | 2022-01-05 08:12 | EXTERNAL MEDICAL SUMMARY RPT | Continuity of Care Document ---
:1985 Author Organization [facility] Address [address] [place] [address] Phone Care Team Providers Name Role Phone Mario Alberto Singer, Electrical Parts Reconditioner, Anjali Unavailable Unav ailable Allergies No information. Encounters No information. Functional Status No information. Immunizations No information. Medications date description facility [id number] albuterol sulfate [facility] [id number] albuterol sulfate [facility] [id number] albuterol sulfate All [id number] albuterol sulfate All Problems No information. Procedures No information. Results/Labs No information. Social History No information. Vital Signs No information.
--- NOTE | 2022-01-05 08:21 | ED Physician Documentation ---
History of Present Illness - Stated complaint Stated Complaint: NAUSEA - Chief complaint Chief Complaint: Abd Pain - History obtained from History obtained from: Patient, EMS - History of Present Illness Pain level max: 5 Pain level now: 5 - Additonal information Additional information: 36-year-old female presents to the emergency department with abdominal pain, nausea and vomiting since yesterday. She has a history of suspected celiac disease, though not laboratory confirmed. She states that she began vomiting yesterday and has had continued vomiting throughout the night. Feels better after Zofran with EMS. Describes diffuse abdominal cramping. No diarrhea or constipation. She has had a hysterectomy. No fevers. No chills. Patient thinks she may have eaten something that had gluten in it as this is her typical reaction. Review of Systems Ten Systems: 10 systems reviewed and negative Constitutional: denies: Fever, Chills Ears: denies: Ear pain Nose: denies: Rhinorrhea / runny nose, Congestion Respiratory: denies: Cough GI: reports: Abdominal Pain, Nausea, Vomiting. 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 : None HEENT: None Psych: Anxiety, Post traumatic stress disorder Musculoskeletal: Scoliosis, Other Derm: None - Past Surgical History Past Surgical History: Yes Ortho: Shoulder arthroplasty /AURICULAR ACUPUNCTURIST: Hysterectomy Cardiovascular: Other - Present Medications Home Medications: Ambulatory Orders Medication Instructions Recorded Confirmed Ondansetron Odt [Zofran] 4 mg TL Q6H PRN #10 tablet 11/13/20 Ondansetron Odt [Zofran] 4 mg TL Q6H PRN #20 tablet 01/05/22 Promethazine Supp [Phenergan Supp] 25 mg [place] Q6HR PRN #10 supp 01/05/22 Promethazine [Phenergan] 25 mg PO Q6H PRN #10 tab 01/05/22 - Allergies Allergies/Adverse Reactions: Allergies Allergy/AdvReac Type Severity Reaction Status Date / Time amoxicillin [Amoxicillin] Allergy Severe throat Verified 11/13/20 20:39 swells Penicillins Allergy Severe Hives Verified 11/13/20 20:39 pertussis vaccine,adsorbed Allergy Severe seizures Verified 11/13/20 20:39 [Pertussis Vaccine,Adsorbed] NSAIDS (Non-Steroidal Allergy Nausea Verified 11/13/20 20:39 Anti-Inflamma ciprofloxacin [From Cipro] AdvReac Intermediate Cramps Verified 11/13/20 20:39 oxycodone HCl * AdvReac Mild Nausea Verified 11/13/20 20:39 [From Percocet] diphtheria, pertussis, AdvReac Unknown Verified 11/13/20 20:39 tetanus vacc haloperidol [From Haldol] AdvReac Visual Verified 11/13/20 20:39 disturbance meperidine HCl * AdvReac Itching Verified 11/13/20 20:39 [From Demerol] - Social History Does the pt smoke?: No Smoking Status: Never smoker Does the pt drink ETOH?: No Does the pt have substance abuse?: No - Immunizations Immunizations are current?: Yes - POLST Patient has POLST: No PD ED PE NORMAL - Vitals Vital signs reviewed: Yes - General General: Alert and oriented X 3, No acute distress, Well developed/nourished - HEENT HEENT: Moist mucous membranes - Neck Neck: Supple, no meningeal sign - Cardiac Cardiac: RRR, Strong equal pulses - Respiratory Respiratory: No respiratory distress, Clear bilaterally - Abdomen Abdomen: Soft, Non tender, Non distended - Back Back: No CVA TTP - Derm Derm: Warm and dry, No rash - Extremities Extremities: No edema - Neuro Neuro: Alert and oriented X 3 - Psych Psych: Normal mood, Normal affect Results - Vitals Vitals: Vital Signs - 24 hr 01/05/22 01/05/22 01/05/22 07:54 08:45 09:25 Temperature 99.2 C H 37.2 C Heart Rate 67 61 60 Respiratory 16 10 L 12 Rate Blood Pressure 115/71 115/78 85/50 L O2 Saturation 99 97 100 Oxygen O2 Source Room air - Labs Labs: Laboratory Tests 01/05/22 01/05/22 07:45 07:45 WBC 11.1 H RBC 3.70 L Hgb 11.5 L Hct 32.4 L MCV 87.6 MCH 31.1 H MCHC 35.5 RDW 10.9 L Plt Count 258 MPV 10.5 Neut # (Auto) 10.1 H Lymph # (Auto) 0.7 L [place] # (Auto) 0.2 Eos # (Auto) 0.0 Baso # (Auto) 0.0 Absolute Nucleated RBC 0.00 Nucleated RBC % 0.0 Sodium 137 Potassium 3.2 L Chloride 100 L Carbon Dioxide 22 Anion Gap 15.0 H BUN 17 Creatinine 0.7 Estimated GFR (MDRD) 94 Glucose 146 H Calcium 9.9 Total Bilirubin 0.8 AST 29 ALT 23 Alkaline Phosphatase 40 L Total Protein 8.1 Albumin 5.1 Globulin 3.0 Albumin/Globulin Ratio 1.7 Lipase 26 PD MEDICAL DECISION MAKING - ED course Complexity details: reviewed results, re-evaluated patient, considered differential, d/w patient ED course: Patient feels significantly improved after IV fluids and antiemetics. Tolerating p.o. without difficulty. Will prescribe antiemetics for home and have her follow-up with her doctor for further care. Abdomen is soft, nontender nondistended on serial exam. Patient counseled regarding signs and symptoms for which I believe and urgent re-evaluation would be necessary. Patient with good understanding of and agreement to plan and is comfortable going home at this time This document was made in part using voice recognition software. While efforts are made to proofread this document, sound alike and grammatical errors may occur. Departure - Departure Disposition: 01 Home, Self Care Clinical Impression: Vomiting Qualifiers: Vomiting type: unspecified Nausea presence: with nausea Qualified Code(s): R11.2 - Nausea with vomiting, unspecified Condition: Good Instructions: ED Nausea Vomiting Follow-Up: your,doctor in 1 week [Other] Prescriptions: Promethazine Supp [Phenergan Supp] 25 mg NJ Q6HR PRN #10 supp PRN Reason: vomiting Promethazine [Phenergan] 25 mg PO Q6H PRN #10 tab PRN Reason: Nausea / Vomiting Ondansetron Odt [Zofran] 4 mg TL Q6H PRN #20 tablet PRN Reason: Nausea / Vomiting Comments: Your prescriptions were sent to the [facility] pharmacy. Please drink plenty of fluids and rest. Please follow-up with your doctor for further care. Return if you worsen Discharge Date/Time: 01/05/22 09:28
[2022-01-05 09:26] VITALS: BP 85/50
== END 2022-01-05 09:28 | disposition home or self-care (01) ==
LOC: EDUNIT# → EDBD → ED 07:42
DX: R11.2 Nausea with vomiting, unspecified (principal); R10.84 Generalized abdominal pain; Z90.710 Acquired absence of both cervix and uterus
CPT/HCPCS: 36415; 80053; 83690; 85025; 96365; 96375; 99284; J7040

== ENCOUNTER 2022-02-24 21:41 | Emergency (ER) | payer MEDICAID ==
--- OUTSIDE RECORDS SUMMARY | 2022-02-24 21:52 | EXTERNAL MEDICAL SUMMARY RPT | Continuity of Care Document ---
:1985 Author Organization [facility] Address [address] [place] [address] Phone Care Team Providers Name Role Phone Unavailable Unavailable Unavailable Allergies No information. Encounters No information. Functional Status No information. Immunizations No information. Medications No information. Problems No information. Procedures No information. Results/Labs test date author facility value unit interpret ation Result panel 1 (unknown) (no date) (unknown) All (no value) (units unknown ) (unknown) Result panel 2 (unknown) (no date) (unknown) All (no value) (units unknown ) (unknown) Result panel 3 (unknown) (no date) (unknown) All (no value) (units unknown ) (unknown) Result panel 4 (unknown) (no date) (unknown) All (no value) (units unknown ) (unknown) Result panel 5 (unknown) (no date) (unknown) All (no value) (units unknown ) (unknown) Result panel 6 (unknown) (no date) (unknown) All (no value) (units unknown ) (unknown) Result panel 7 (unknown) (no date) (unknown) All (no value) (units unknown ) (unknown) Result panel 8 (unknown) (no date) (unknown) All (no value) (units unknown ) (unknown) Result panel 9 (unknown) (no date) (unknown) All (no value) (units unknown ) (unknown) Result panel 10 (unknown) (no date) (unknown) All (no value) (units unknown ) (unknown) Result panel 11 (unknown) (no date) (unknown) All (no value) (units unknown ) (unknown) Result panel 12 (unknown) (no date) (unknown) All (no value) (units unknown ) (unknown) Result panel 13 (unknown) (no date) (unknown) All (no value) (units unknown ) (unknown) Result panel 14 (unknown) (no date) (unknown) All (no value) (units unknown ) (unknown) Result panel 15 (unknown) (no date) (unknown) All (no value) (units unknown ) (unknown) Result panel 16 (unknown) (no date) (unknown) All (no value) (units unknown ) (unknown) Result panel 17 (unknown) (no date) (unknown) All (no value) (units unknown ) (unknown) Result panel 18 (unknown) (no date) (unknown) All (no value) (units unknown ) (unknown) Result panel 19 (unknown) (no date) (unknown) All (no value) (units unknown ) (unknown) Result panel 20 (unknown) (no date) (unknown) All (no value) (units unknown ) (unknown) Result panel 21 (unknown) (no date) (unknown) All (no value) (units unknown ) (unknown) Result panel 22 (unknown) (no date) (unknown) All (no value) (units unknown ) (unknown) Result panel 23 (unknown) (no date) (unknown) All (no value) (units unknown ) (unknown) Result panel 24 (unknown) (no date) (unknown) All (no value) (units unknown ) (unknown) Result panel 25 (unknown) (no date) (unknown) All (no value) (units unknown ) (unknown) Result panel 26 (unknown) (no date) (unknown) All (no value) (units unknown ) (unknown) Result panel 27 (unknown) (no date) (unknown) All (no value) (units unknown ) (unknown) Result panel 28 (unknown) (no date) (unknown) All (no value) (units unknown ) (unknown) Result panel 29 (unknown) (no date) (unknown) All (no value) (units unknown ) (unknown) Result panel 30 (unknown) (no date) (unknown) All (no value) (units unknown ) (unknown) Result panel 31 (unknown) (no date) (unknown) All (no value) (units unknown ) (unknown) Result panel 32 (unknown) (no date) (unknown) All (no value) (units unknown ) (unknown) Result panel 33 (unknown) (no date) (unknown) All (no value) (units unknown ) (unknown) Result panel 34 (unknown) (no date) (unknown) All (no value) (units unknown ) (unknown) Result panel 35 (unknown) (no date) (unknown) All (no value) (units unknown ) (unknown) Result panel 36 (unknown) (no date) (unknown) All (no value) (units unknown ) (unknown) Result panel 37 (unknown) (no date) (unknown) All (no value) (units unknown ) (unknown) Result panel 38 (unknown) (no date) (unknown) All (no value) (units unknown ) (unknown) Result panel 39 (unknown) (no date) (unknown) All (no value) (units unknown ) (unknown) Result panel 40 (unknown) (no date) (unknown) All (no value) (units unknown ) (unknown) Result panel 41 (unknown) (no date) (unknown) All (no value) (units unknown ) (unknown) Result panel 42 (unknown) (no date) (unknown) All (no value) (units unknown ) (unknown) Result panel 43 (unknown) (no date) (unknown) All (no value) (units unknown ) (unknown) Result panel 44 (unknown) (no date) (unknown) All (no value) (units unknown ) (unknown) Result panel 45 (unknown) (no date) (unknown) All (no value) (units unknown ) (unknown) Result panel 46 (unknown) (no date) (unknown) All (no value) (units unknown ) (unknown) Result panel 47 (unknown) (no date) (unknown) All (no value) (units unknown ) (unknown) Result panel 48 (unknown) (no date) (unknown) All (no value) (units unknown ) (unknown) Result panel 49 (unknown) (no date) (unknown) All (no value) (units unknown ) (unknown) Result panel 50 (unknown) (no date) (unknown) All (no value) (units unknown ) (unknown) Result panel 51 (unknown) (no date) (unknown) All (no value) (units unknown ) (unknown) Result panel 52 (unknown) (no date) (unknown) All (no value) (units unknown ) (unknown) Result panel 53 (unknown) (no date) (unknown) All (no value) (units unknown ) (unknown) Result panel 54 (unknown) (no date) (unknown) All (no value) (units unknown ) (unknown) Result panel 55 (unknown) (no date) (unknown) All (no value) (units unknown ) (unknown) Result panel 56 (unknown) (no date) (unknown) All (no value) (units unknown ) (unknown) Result panel 57 (unknown) (no date) (unknown) All (no value) (units unknown ) (unknown) Result panel 58 (unknown) (no date) (unknown) All (no value) (units unknown ) (unknown) Result panel 59 (unknown) (no date) (unknown) All (no value) (units unknown ) (unknown) Result panel 60 (unknown) (no date) (unknown) All (no value) (units unknown ) (unknown) Result panel 61 (unknown) (no date) (unknown) All (no value) (units unknown ) (unknown) Result panel 62 (unknown) (no date) (unknown) All (no value) (units unknown ) (unknown) Result panel 63 (unknown) (no date) (unknown) All (no value) (units unknown ) (unknown) Result panel 64 (unknown) (no date) (unknown) All (no value) (units unknown ) (unknown) Result panel 65 (unknown) (no date) (unknown) All (no value) (units unknown ) (unknown) Result panel 66 (unknown) (no date) (unknown) All (no value) (units unknown ) (unknown) Result panel 67 (unknown) (no date) (unknown) All (no value) (units unknown ) (unknown) Result panel 68 (unknown) (no date) (unknown) All (no value) (units unknown ) (unknown) Result panel 69 (unknown) (no date) (unknown) All (no value) (units unknown ) (unknown) Result panel 70 (unknown) (no date) (unknown) All (no value) (units unknown ) (unknown) Result panel 71 (unknown) (no date) (unknown) All (no value) (units unknown ) (unknown) Result panel 72 (unknown) (no date) (unknown) All (no value) (units unknown ) (unknown) Result panel 73 (unknown) (no date) (unknown) All (no value) (units unknown ) (unknown) Result panel 74 (unknown) (no date) (unknown) All (no value) (units unknown ) (unknown) Result panel 75 (unknown) (no date) (unknown) All (no value) (units unknown ) (unknown) Result panel 76 (unknown) (no date) (unknown) All (no value) (units unknown ) (unknown) Result panel 77 (unknown) (no date) (unknown) All (no value) (units unknown ) (unknown) Result panel 78 (unknown) (no date) (unknown) All (no value) (units unknown ) (unknown) Result panel 79 (unknown) (no date) (unknown) All (no value) (units unknown ) (unknown) Result panel 80 (unknown) (no date) (unknown) All (no value) (units unknown ) (unknown) Result panel 81 (unknown) (no date) (unknown) All (no value) (units unknown ) (unknown) Result panel 82 (unknown) (no date) (unknown) All (no value) (units unknown ) (unknown) Result panel 83 (unknown) (no date) (unknown) All (no value) (units unknown ) (unknown) Social History No information. Vital Signs No information.
[2022-02-24] MEDS ORDERED: HYDROcod/ACETAM 5/325 MG TABLET PO STA (22:34)
--- NOTE | 2022-02-24 23:34 | XRAY Report ---
PROCEDURE: Finger(s) RT INDICATIONS: Rt thumb injury TECHNIQUE: AP hand, 3 views of the first finger(s) acquired. COMPARISON: None FINDINGS: Bones: No fractures or dislocations. No suspicious bony lesions. Soft tissues: No suspicious soft tissue calcifications. IMPRESSION: No trauma found. Reviewed by: Juarez Fatima MD on 02/24/2022 11:43 PM PST Approved by: Juarez Fatima MD on 02/24/2022 11:43 PM [facility] Station ID: [id number]
[2022-02-24 23:42] VITALS: BP 103/60
--- NOTE | 2022-02-25 00:04 | ED Physician Documentation ---
History of Present Illness - Stated complaint Stated Complaint: THUMB INJURIED - Chief complaint Chief Complaint: Trauma Ext - Additonal information Additional information: Patient is 36-year-old female presenting to the emergency department with right thumb injury. Jammed her thumb while walking her dog 1 day ago. Reports has had surgery on the thumb before however is unable to elucidate more about this. Reports pain with movement and motion. States is taken ibuprofen for pain control with minimal relief. 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 HEENT: None Psych: Anxiety, Post traumatic stress disorder Musculoskeletal: Scoliosis, Other Derm: None - Past Surgical History Past Surgical History: Yes Ortho: Shoulder arthroplasty /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: Hysterectomy Cardiovascular: Other - Present Medications Home Medications: Ambulatory Orders Medication Instructions Recorded Confirmed Ondansetron Odt [Zofran] 4 mg TL Q6H PRN #10 tablet 11/13/20 Ondansetron Odt [Zofran] 4 mg TL Q6H PRN #20 tablet 01/05/22 Promethazine Supp [Phenergan Supp] 25 mg [place] Q6HR PRN #10 supp 01/05/22 Promethazine [Phenergan] 25 mg PO Q6H PRN #10 tab 01/05/22 Acetaminophen [Tylenol] 650 mg PO Q6H PRN #30 tab 02/25/22 - Allergies Allergies/Adverse Reactions: Allergies Allergy/AdvReac Type Severity Reaction Status Date / Time amoxicillin [Amoxicillin] Allergy Severe throat Verified 02/24/22 21:45 swells Penicillins Allergy Severe Hives Verified 02/24/22 21:45 pertussis vaccine,adsorbed Allergy Severe seizures Verified 02/24/22 21:45 [Pertussis Vaccine,Adsorbed] NSAIDS (Non-Steroidal Allergy Nausea Verified 02/24/22 21:45 Anti-Inflamma ciprofloxacin [From Cipro] AdvReac Intermediate Cramps Verified 02/24/22 21:45 oxycodone HCl * AdvReac Mild Nausea Verified 02/24/22 21:45 [From Percocet] diphtheria, pertussis, AdvReac Unknown Verified 02/24/22 21:45 tetanus vacc haloperidol [From Haldol] AdvReac Visual Verified 02/24/22 21:45 disturbance meperidine HCl * AdvReac Itching Verified 02/24/22 21:45 [From Demerol] - Social History Does the pt smoke?: No Smoking Status: Never smoker Does the pt drink ETOH?: No Does the pt have substance abuse?: No - Immunizations Immunizations are current?: Yes - POLST Patient has POLST: No PD ED PE NORMAL - Vitals Vital signs reviewed: Yes - General General: Alert and oriented X 3 - HEENT HEENT: Atraumatic - Respiratory Respiratory: No respiratory distress - Extremities Extremities: Other (There is tenderness to palpation along the right thumb. Decreased range of motion secondary to pain. Patient has normal capillary refill and two-point sensation to the thumb. There is no snuffbox tenderness and there is normal range of motion with the wrist and second through fifth digits.) Results - Vitals Vitals: Vital Signs - 24 hr 02/24/22 02/24/22 21:45 23:41 Temperature 36.5 C Heart Rate 77 60 Respiratory 16 12 Rate Blood Pressure 119/64 103/60 O2 Saturation 98 100 Oxygen O2 Source Room air PD Medical Decision Making - ED course Complexity details: reviewed results, d/w patient Reviewed Lab Results: None Social Determinants of Health: None Drug Therapy Requiring Monitoring for Toxicity: None Procedural Risk Factors Specific to Patient: None ED course: Patient 36-year-old female presenting to the emergency department with right thumb injury. Neurovascularly intact without obvious deformity. X-rays both interpreted independently and by radiology did not demonstrate any acute fracture. Will provide with thumb spica splint for comfort. Encourage use of ibuprofen, acetaminophen, ice packs and elevation. Will encourage follow-up with primary care If there is no improvement of symptoms over the course of the next 7 days. Final clinical impression: Right thumb injury. Departure - Departure Disposition: 01 Home, Self Care Clinical Impression: Thumb injury Instructions: ED Sprain Finger Prescriptions: Acetaminophen [Tylenol] 650 mg PO Q6H PRN #30 tab PRN Reason: Pain Comments: Thank you for allowing us to care for you today at [facility]. The x-rays today did not show any fracture. Please continue to use the thumb splint provided here in the emergency department as needed for pain. Your symptoms should improve steadily over the course of the next few days. If 7 days have gone by and you are not experiencing improvement in your symptoms please follow-up with your primary care doctor or with your hand specialist associate with [facility] for reevaluation. In the interim I recommend regular use of acetaminophen, ice packs and elevation for pain control. If it anytime you develop new or worsening symptoms please not hesitate to return. Discharge Date/Time: 02/25/22 00:14
== END 2022-02-25 00:14 | disposition home or self-care (01) ==
LOC: ED 21:41
DX: S69.91XA Unspecified injury of right wrist, hand and finger(s), initial encounter (principal); W23.0XXA Caught, crushed, jammed, or pinched between moving objects, initial encounter; Y93.K1 Activity, walking an animal
CPT/HCPCS: 73140; 99283; A9270

== ENCOUNTER 2022-05-23 11:50 | Emergency (ER) | payer MEDICAID ==
[2022-05-23 11:59] VITALS: BP 129/83
--- NOTE | 2022-05-23 12:06 | ED Physician Documentation ---
History of Present Illness - Stated complaint Stated Complaint: SWOLLEN RT EYE, JAW PX - Chief complaint Chief Complaint: Heent - History obtained from History obtained from: Patient - Additonal information Additional information: She developed swelling of the right upper eyelid about 4 days ago. Seen at a walk-in clinic 2 days ago and put on Polytrim eyedrops. She has gotten worse despite that. She also has sinus pain and pain under the right side of the jaw. No fevers, but she does not feel well generally. PD PAST MEDICAL HISTORY - Past Medical History Cardiovascular: Murmur Respiratory: Asthma Neuro: None Endocrine/Autoimmune: None GI: Hemorrhoids, Other FIELD CONSULTANT: None : None HEENT: None Psych: Anxiety, Post traumatic stress disorder Musculoskeletal: Scoliosis, Other Derm: None - Past Surgical History Past Surgical History: Yes Ortho: Shoulder arthroplasty /FIELD CONSULTANT: Hysterectomy Cardiovascular: Other - Present Medications Home Medications: Ambulatory Orders Medication Instructions Recorded Confirmed Ondansetron Odt [Zofran] 4 mg TL Q6H PRN #10 tablet 11/13/20 Ondansetron Odt [Zofran] 4 mg TL Q6H PRN #20 tablet 01/05/22 Promethazine Supp [Phenergan Supp] 25 mg CO Q6HR PRN #10 supp 01/05/22 Promethazine [Phenergan] 25 mg PO Q6H PRN #10 tab 01/05/22 Acetaminophen [Tylenol] 650 mg PO Q6H PRN #30 tab 02/25/22 HYDROcod/ACETAM 5/325 [[place] 5/325] 1 - 2 tab PO Q6H PRN #15 tablet 05/23/22 cephALEXin [Keflex] 500 mg PO Q6H #28 cap 05/23/22 - Allergies Allergies/Adverse Reactions: Allergies Allergy/AdvReac Type Severity Reaction Status Date / Time amoxicillin [Amoxicillin] Allergy Severe throat Verified 05/23/22 11:59 swells Penicillins Allergy Severe Hives Verified 05/23/22 11:59 pertussis vaccine,adsorbed Allergy Severe seizures Verified 05/23/22 11:59 [Pertussis Vaccine,Adsorbed] NSAIDS (Non-Steroidal Allergy Nausea Verified 02/24/22 21:45 Anti-Inflamma ciprofloxacin [From Cipro] AdvReac Intermediate Cramps Verified 05/23/22 11:59 oxycodone HCl * AdvReac Mild Nausea Verified 05/23/22 11:59 [From Percocet] diphtheria, pertussis, AdvReac Unknown Verified 05/23/22 11:59 tetanus vacc haloperidol [From Haldol] AdvReac Visual Verified 05/23/22 11:59 disturbance meperidine HCl * AdvReac Itching Verified 05/23/22 11:59 [From Demerol] - Social History Does the pt smoke?: No Smoking Status: Never smoker Does the pt drink ETOH?: No Does the pt have substance abuse?: No - Immunizations Immunizations are current?: Yes - POLST Patient has POLST: No PD ED PE NORMAL - Vitals Vital signs reviewed: Yes - General General: Alert and oriented X 3, No acute distress - HEENT HEENT: Other (There is a stye of the right upper eyelid, not pointed with mild cellulitis of the right upper eyelid. TMs and oropharynx are normal. Mild right submandibular adenopathy which is tender.) - Neuro Neuro: Alert and oriented X 3, nurse practitioner home assessments 2-12 intact, Normal speech Results - Vitals Vitals: Vital Signs - 24 hr 05/23/22 05/23/22 05/23/22 11:55 12:00 12:05 Temperature 36.8 C Heart Rate 72 Respiratory 16 16 16 Rate Blood Pressure 129/83 H O2 Saturation 100 Oxygen O2 Source Room air PD Medical Decision Making - ED course ED course: 36-year-old woman with an infected stye that has failed treatment with topical antibiotics. Will add oral antibiotics and she needs something for pain. She is referred to ophthalmology for definitive treatment. Departure - Departure Disposition: 01 Home, Self Care Clinical Impression: Cellulitis of right eyelid Stye Qualifiers: Laterality: right Eyelid: upper Qualified Code(s): H00.011 - Hordeolum externum right upper eyelid Condition: Good Record reviewed to determine appropriate education?: Yes Instructions: ED Cellulitis Facial, ED Chalazion Prescriptions: cephALEXin [Keflex] 500 mg PO Q6H #28 cap HYDROcod/ACETAM 5/325 [[place] 5/325] 1 - 2 tab PO Q6H PRN #15 tablet PRN Reason: Pain Comments: You were seen today for an infected stye. As discussed, it is reasonable to follow-up with an search engine optimization consultant for definitive treatment but I am starting you on oral antibiotics in the meantime. Reasonable to consider the topical eyedrop antibiotic that you were given at the walk-in clinic. Call the search engine optimization consultant for the next available appointment. Return for new or worsening symptoms. I sent your prescriptions electronically [facility] in [place]. I am prescribing a short course of narcotic pain medication for you. These are potentially dangerous and addictive medications that should be used carefully. These medications may constipate you. Take an wowm-dxy-ytrigee stool softener (docusate) twice daily with plenty of water while taking these medications. If you go 24 hours without a bowel movement, take hzjn-yef-vmyubie miralax, per package instructions. Do not drink or drive while taking these medications. If you received narcotic or sedating medications while in the emergency department, do not drive for 24 hours. Store this medication in a safe, secure place and out of reach of children. It is a violation of federal law to give or sell this medication to another person or to use in a manner other than prescribed. The ED will not refill narcotic prescriptions, including prescriptions lost or stolen. To dispose of unwanted medications: 1. [facility] at [address] in [place] has a medication drop box. They accept prescription medications (in pill form) Saturday through Saturday 9:00 a.m. to 5:00 p.m. 2. [facility] accepts prescription medications (in pill form only) for disposal year round. Call for more information. 3. Contact the [facility] for the next [facility] sponsored prescription drug collection event. , [phone], or [phone]; Note that many narcotic pain relievers also contain Tylenol/acetaminophen. Ple ase ensure that your total dose of acetaminophen from all sources does not exceed 3 g (3000 mg) per day.
--- OUTSIDE RECORDS SUMMARY | 2022-05-23 12:35 | EXTERNAL MEDICAL SUMMARY RPT | Continuity of Care Document ---
:1985 Author Organization [facility] Address [address] [place] [address] Phone Care Team Providers Name Role Phone Daniel Ghosh Unavailable Unavailable Allergies and Intolerances date description facility type (no date) Mild [facility] (unknown) (no date) Penicillins [facility] (unknown) (no date) Pertussis Vaccines [facility] (unknown) (no date) amoxicillin [facility] (unknown) (no date) azithromycin [facility] (unknown) (no date) ciprofloxacin [facility] (unknown) (no date) gluten [facility] (unknown) (no date) hydromorphone [facility] (unknown) (no date) ibuprofen [facility] (unknown) (no date) nickel [facility] (unknown) Encounters No information. Functional Status No information. Immunizations No information. Medications date description facility 2022-03-13 00:00 Fluticasone Propion-Salmeterol [facility] 2022-03-26 00:00 Methocarbamol [facility] 2022-03-26 00:00 Omeprazole [facility] 2022-03-08 00:00 Albuterol Sulfate [facility] 2022-03-26 00:00 Sumatriptan Succinate [facility] 2022-03-05 00:00 Hydrocodone-Acetaminophen [facility] Problems date description facility 2022-03-05 00:00 Lung nodule [facility] 2022-03-18 00:00 Depression [facility] 2022-03-18 00:00 Anxiety [facility] 2022-03-18 00:00 Mild persistent asthma [facility] 2022-03-24 00:00 Migraine headache [facility] 2022-04-02 12:05 Unspecified lump in the right breast, [facility] unspecified quadrant 2022-04-02 12:05 Unspecified lump in the left breast, [facility] unspecified quadrant 2022-04-02 12:05 Abnormal findings on diagnostic imaging of [facility] other specified b 2022-04-02 15:28 Unspecified lump in the right breast, [facility] unspecified quadrant 2022-04-02 15:28 Unspecified lump in the left breast, [facility] unspecified quadrant 2022-04-02 15:28 Abnormal findings on diagnostic imaging of [facility] other specified b Procedures date description facility 2022-03-24 00:00 Computed tomography of head or brain wi [facility] contrast 2022-03-05 00:00 X-ray of chest, single view [facility] 2022-03-24 00:00 X-ray of chest, single view [facility] 2022-04-02 00:00 Diagnostic mammography of both breasts [facility] 2022-04-02 00:00 US breast left [facility] 2022-04-02 00:00 US breast right [facility] Results/Labs test date author facility value unit interpret ation Result panel 1 (unknown) (no date[facility]) Result panel 2 (unknown) (no date) (unknown[facility] Result panel 3 (unknown) (no date) (unknown[facility] Result panel 4 (unknown) (no date) (unknown[facility] Result panel 5 (unknown) (no date) (unknown[facility] Result panel 6 (unknown) (no date) (unknown[facility] Result panel 7 (unknown) (no date) (unknown[facility] Result panel 8 (unknown) (no date) (unknown[facility] Result panel 9 (unknown) (no date) (unknown[facility] Result panel 10 (unknown) (no date) (unknown[facility] Result panel 11 (unknown) (no date) (unknown[facility] Result panel 12 (unknown) (no date) (unknown[facility] Result panel 13 (unknown) (no date) (unknown[facility] Result panel 14 (unknown) (no date) (unknown[facility] Result panel 15 (unknown) (no date) (unknown[facility] Result panel 16 (unknown) (no date) (unknown[facility] Result panel 17 (unknown) (no date) (unknown[facility] Result panel 18 (unknown) (no date) (unknown[facility] Result panel 19 (unknown) (no date) (unknown[facility]) Result panel 20 (unknown) (no date) (unknown[facility] Result panel 21 (unknown) (no date) (unknown[facility] Result panel 22 (unknown) (no date) (unknown[facility] Result panel 23 (unknown) (no date) (unknown[facility] Result panel 24 (unknown) (no date) (unknown[facility]) Result panel 25 (unknown) (no date) (unknown[facility] Result panel 26 (unknown) (no date) (unknown[facility] Result panel 27 (unknown) (no date) (unknown[facility] Result panel 28 (unknown) (no date) (unknown[facility] Result panel 29 (unknown) (no date) (unknown[facility] Result panel 30 (unknown) (no date) (unknown[facility] Result panel 31 (unknown) (no date) (unknown[facility]) Result panel 32 (unknown) (no date) (unknown[facility] Result panel 33 (unknown) (no date) (unknown[facility]) Result panel 34 (unknown) (no date) (unknown[facility] Result panel 35 (unknown) (no date) (unknown[facility] Result panel 36 (unknown) (no date) (unknown[facility] Result panel 37 (unknown) (no date) (unknown[facility] Result panel 38 (unknown) (no date) (unknown[facility] Result panel 39 (unknown) (no date) (unknown[facility] Result panel 40 (unknown) (no date) (unknown[facility] Result panel 41 (unknown) (no date) (unknown[facility] Result panel 42 (unknown) (no date) (unknown[facility]) Result panel 43 (unknown) (no date) (unknown[facility] Result panel 44 (unknown) (no date) (unknown[facility]) Result panel 45 (unknown) (no date) (unknown[facility] Result panel 46 (unknown) (no date) (unknown[facility] Result panel 47 (unknown) (no date) (unknown[facility] Result panel 48 (unknown) (no date) (unknown[facility] Result panel 49 (unknown) (no date) (unknown[facility] Result panel 50 (unknown) (no date) (unknown) [facility] Result panel 51 (unknown) (no date) (unknown) [facility] Result panel 52 (unknown) (no date) (unknown) [facility] Result panel 53 (unknown) (no date) (unknown) [facility] Result panel 54 (unknown) (no date) (unknown) [facility]) Result panel 55 (unknown) (no date) (unknown[facility] Result panel 56 (unknown) (no date) (unknown) [facility] Result panel 57 (unknown) (no date) (unknown) [facility] Result panel 58 (unknown) (no date) (unknown) [facility] Result panel 59 (unknown) (no date) (unknown) [facility] Result panel 60 (unknown) (no date) (unknown) [facility] Result panel 61 (unknown) (no date) (unknown) [facility] Result panel 62 (unknown) (no date) (unknown) [facility] Result panel 63 (unknown) (no date) (unknown) [facility] Result panel 64 (unknown) (no date) (unknown[facility]) Result panel 65 (unknown) (no date) (unknown) [facility] Result panel 66 (unknown) (no date) (unknown) [facility]) Result panel 67 (unknown) (no date) (unknown) [facility] Result panel 68 (unknown) (no date) (unknown) [facility]) Result panel 69 (unknown) (no date) (unknown) [facility] Result panel 70 (unknown) (no date) (unknown) [facility]) Result panel 71 (unknown) (no date) (unknown) [facility] Result panel 72 (unknown) (no date) (unknown) [facility]) Result panel 73 (unknown) (no date) (unknown) [facility] Result panel 74 (unknown) (no date) (unknown) [facility]) Result panel 75 (unknown) (no date) (unknown) [facility] Result panel 76 (unknown) (no date) (unknown[facility]) Result panel 77 (unknown) (no date) (unknown) [facility] Result panel 78 (unknown) (no date) (unknown[facility] Result panel 79 (unknown) (no date) (unknown) [facility]) Result panel 80 (unknown) (no date) (unknown) [facility] Result panel 81 (unknown) (no date) (unknown) [facility] Result panel 82 (unknown) (no date) (unknown[facility]) Result panel 83 (unknown) (no date) (unknown) [facility] Result panel 84 (unknown) (no date) (unknown[facility] Result panel 85 (unknown) (no date) (unknown[facility] Result panel 86 (unknown) (no date) (unknown[facility] Result panel 87 (unknown) (no date) (unknown) [facility] Result panel 88 (unknown) (no date) (unknown) [facility] Result panel 89 (unknown) (no date) (unknown[facility] Result panel 90 (unknown) (no date) (unknown) [facility] Result panel 91 (unknown) (no date) (unknown[facility] Result panel 92 (unknown) (no date) (unknown) [facility] Result panel 93 (unknown) (no date) (unknown) [facility] Result panel 94 (unknown) (no date) (unknown) [facility] Result panel 95 (unknown) (no date) (unknown[facility]) Result panel 96 (unknown) (no date) (unknown) [facility] Result panel 97 (unknown) (no date) (unknown) [facility]) Result panel 98 (unknown) (no date) (unknown) [facility]) Result panel 99 (unknown) (no date) (unknown) [facility] Result panel 100 (unknown) (no date) (unknown) [facility] Result panel 101 (unknown) (no date) (unknown) [facility]) Result panel 102 (unknown) (no date) (unknown) [facility] Result panel 103 (unknown) (no date) (unknown[facility]) Result panel 104 (unknown) (no date) (unknown[facility] Result panel 105 (unknown) (no date) (unknown) [facility]) Result panel 106 (unknown) (no date) (unknown) [facility]) Result panel 107 (unknown) (no date) (unknown) [facility]) Result panel 108 (unknown) (no date) (unknown) [facility]) Result panel 109 (unknown) (no date) (unknown) [facility]) Result panel 110 (unknown) (no date) (unknown) [facility]) Result panel 111 (unknown) (no date) (unknown) [facility]) Result panel 112 (unknown) (no date) (unknown) [facility]) Result panel 113 (unknown) (no date) (unknown) [facility] Result panel 114 (unknown) (no date) (unknown) [facility]) Result panel 115 (unknown) (no date) (unknown) [facility]) Result panel 116 (unknown) (no date) (unknown) [facility] Result panel 117 (unknown) (no date) (unknown) [facility]) Result panel 118 (unknown) (no date) (unknown) [facility] Result panel 119 (unknown) (no date) (unknown) [facility]) Result panel 120 (unknown) (no date) (unknown[facility]) Result panel 121 (unknown) (no date) (unknown[facility] Result panel 122 (unknown) (no date) (unknown[facility]) Result panel 123 (unknown) (no date) (unknown[facility] Result panel 124 (unknown) (no date) (unknown[facility]) Result panel 125 (unknown) (no date) (unknown[facility] Result panel 126 (unknown) (no date) (unknown[facility]) Result panel 127 (unknown) (no date) (unknown[facility]) Result panel 128 (unknown) (no date) (unknown[facility] Result panel 129 (unknown) (no date) (unknown[facility]) Result panel 130 (unknown) (no date) (unknown[facility] Result panel 131 (unknown) (no date) (unknown[facility]) Result panel 132 (unknown) (no date) (unknown[facility] Result panel 133 (unknown) (no date) (unknown[facility]) Result panel 134 (unknown) (no date) (unknown) [facility]) Result panel 135 (unknown) (no date) (unknown[facility] Result panel 136 (unknown) (no date) (unknown) [facility] Result panel 137 (unknown) (no date) (unknown) [facility]) Result panel 138 (unknown) (no date) (unknown) [facility]) Result panel 139 (unknown) (no date) (unknown) [facility] Result panel 140 (unknown) (no date) (unknown) [facility]) Result panel 141 (unknown) (no date) (unknown) [facility]) Result panel 142 (unknown) (no date) (unknown) [facility]) Result panel 143 (unknown) (no date) (unknown) [facility] Result panel 144 (unknown) (no date) (unknown) [facility]) Result panel 145 (unknown) (no date) (unknown) [facility]) Result panel 146 (unknown) (no date) (unknown) [facility]) Result panel 147 (unknown) (no date) (unknown) [facility]) Result panel 148 (unknown) (no date) (unknown) [facility] Result panel 149 (unknown) (no date) (unknown) [facility]) Result panel 150 (unknown) (no date) (unknown) [facility] Result panel 151 (unknown) (no date) (unknown) [facility]) Result panel 152 (unknown) (no date) (unknown) [facility]) Result panel 153 (unknown) (no date) (unknown) [facility]) Result panel 154 (unknown) (no date) (unknown) [facility]) Result panel 155 (unknown) (no date) (unknown) [facility]) Result panel 156 (unknown) (no date) (unknown) [facility]) Result panel 157 (unknown) (no date) (unknown) [facility]) Result panel 158 (unknown) (no date) (unknown) [facility]) Result panel 159 (unknown) (no date) (unknown) [facility]) Result panel 160 (unknown) (no date) (unknown) [facility] Result panel 161 (unknown) (no date) (unknown) [facility]) Result panel 162 (unknown) (no date) (unknown) [facility]) Result panel 163 (unknown) (no date) (unknown) [facility] Result panel 164 (unknown) (no date) (unknown) [facility]) Result panel 165 (unknown) (no date) (unknown) [facility]) Result panel 166 (unknown) (no date) (unknown) [facility] Result panel 167 (unknown) (no date) (unknown) [facility]) Result panel 168 (unknown) (no date) (unknown) [facility] Result panel 169 (unknown) (no date) (unknown) [facility]) Result panel 170 (unknown) (no date) (unknown) [facility] Result panel 171 (unknown) (no date) (unknown) [facility]) Result panel 172 (unknown) (no date) (unknown) [facility]) Result panel 173 (unknown) (no date) (unknown) [facility] Result panel 174 (unknown) (no date) (unknown) [facility] Result panel 175 (unknown) (no date) (unknown) [facility]) Result panel 176 (unknown) (no date) (unknown) [facility] Result panel 177 (unknown) (no date) (unknown) [facility]) Result panel 178 (unknown) (no date) (unknown) [facility] Result panel 179 (unknown) (no date) (unknown) [facility] Result panel 180 (unknown) (no date) (unknown) [facility]) Result panel 181 (unknown) (no date) (unknown) [facility] Result panel 182 (unknown) (no date) (unknown) [facility]) Result panel 183 (unknown) (no date) (unknown) [facility] Result panel 184 (unknown) (no date) (unknown) [facility]) Result panel 185 (unknown) (no date) (unknown) [facility] Result panel 186 (unknown) (no date) (unknown) [facility]) Result panel 187 (unknown) (no date) (unknown) [facility] Result panel 188 (unknown) (no date) (unknown) [facility] Result panel 189 (unknown) (no date) (unknown) [facility]) Result panel 190 (unknown) (no date) (unknown) [facility] Result panel 191 (unknown) (no date) (unknown) [facility] Result panel 192 (unknown) (no date) (unknown) [facility]) Result panel 193 (unknown) (no date) (unknown) [facility] Result panel 194 (unknown) (no date) (unknown) [facility]) Result panel 195 (unknown) (no date) (unknown) [facility] Result panel 196 (unknown) (no date) (unknown) [facility] Result panel 197 (unknown) (no date) (unknown) [facility] Result panel 198 (unknown) (no date) (unknown) [facility] Result panel 199 (unknown) (no date) (unknown) [facility] Result panel 200 (unknown) (no date) (unknown) [facility] Result panel 201 (unknown) (no date) (unknown) [facility] Result panel 202 (unknown) (no date) (unknown) [facility] Result panel 203 (unknown) (no date) (unknown) [facility] Result panel 204 (unknown) (no date) (unknown) [facility] Result panel 205 (unknown) (no date) (unknown) [facility] Result panel 206 (unknown) (no date) (unknown) [facility] Result panel 207 (unknown) (no date) (unknown) [facility] Result panel 208 (unknown) (no date) (unknown) [facility] Result panel 209 (unknown) (no date) (unknown) [facility] Result panel 210 (unknown) (no date) (unknown) [facility] Result panel 211 (unknown) (no date) (unknown) [facility] Result panel 212 (unknown) (no date) (unknown[facility]) Result panel 213 (unknown) (no date) (unknown[facility]) Result panel 214 (unknown) (no date) (unknown) [facility]) Result panel 215 (unknown) (no date) (unknown) [facility] Result panel 216 (unknown) (no date) (unknown) [facility] Result panel 217 (unknown) (no date) (unknown) [facility] Result panel 218 (unknown) (no date) (unknown) [facility] Result panel 219 (unknown) (no date) (unknown) [facility] Result panel 220 (unknown) (no date) (unknown) [facility] Result panel 221 (unknown) (no date) (unknown) [facility] Result panel 222 (unknown) (no date) (unknown[facility] Result panel 223 (unknown) (no date) (unknown[facility] Result panel 224 (unknown) (no date) (unknown) [facility]) Result panel 225 (unknown) (no date) (unknown[facility] Result panel 226 (unknown) (no date) (unknown[facility]) Result panel 227 (unknown) (no date) (unknown) [facility] Result panel 228 (unknown) (no date) (unknown) [facility] Result panel 229 (unknown) (no date) (unknown) [facility] Result panel 230 (unknown) (no date) (unknown) [facility] Result panel 231 (unknown) (no date) (unknown) [facility] Result panel 232 (unknown) (no date) (unknown) [facility] Result panel 233 (unknown) (no date) (unknown) [facility] Result panel 234 (unknown) (no date) (unknown) [facility] Result panel 235 (unknown) (no date) (unknown) [facility] Result panel 236 (unknown) (no date) (unknown) [facility] Result panel 237 (unknown) (no date) (unknown) [facility] Result panel 238 (unknown) (no date) (unknown) [facility] Result panel 239 (unknown) (no date) (unknown) [facility] Result panel 240 (unknown) (no date) (unknown) [facility] Result panel 241 (unknown) (no date) (unknown) [facility] Result panel 242 (unknown) (no date) (unknown) [facility]) Result panel 243 (unknown) (no date) (unknown) [facility] Result panel 244 (unknown) (no date) (unknown) [facility] Result panel 245 (unknown) (no date) (unknown) [facility] Result panel 246 (unknown) (no date) (unknown) [facility] Result panel 247 (unknown) (no date) (unknown) [facility] Result panel 248 (unknown) (no date) (unknown) [facility] Result panel 249 (unknown) (no date) (unknown[facility] Result panel 250 (unknown) (no date) (unknown[facility]) Result panel 251 (unknown) (no date) (unknown) [facility] Result panel 252 (unknown) (no date) (unknown) [facility]) Result panel 253 (unknown) (no date) (unknown) [facility] Result panel 254 (unknown) (no date) (unknown) [facility]) Result panel 255 (unknown) (no date) (unknown) [facility]) Result panel 256 (unknown) (no date) (unknown) [facility]) Result panel 257 (unknown) (no date) (unknown) [facility] Result panel 258 (unknown) (no date) (unknown[facility]) Result panel 259 (unknown) (no date) (unknown) [facility] Result panel 260 (unknown) (no date) (unknown[facility] Result panel 261 (unknown) (no date) (unknown[facility] Result panel 262 (unknown) (no date) (unknown) [facility] Result panel 263 (unknown) (no date) (unknown) [facility] Result panel 264 (unknown) (no date) (unknown[facility] Result panel 265 (unknown) (no date) (unknown) [facility] Result panel 266 (unknown) (no date) (unknown) [facility] Result panel 267 (unknown) (no date) (unknown) [facility]) Result panel 268 (unknown) (no date) (unknown) [facility] Result panel 269 (unknown) (no date) (unknown[facility]) Result panel 270 (unknown) (no date) (unknown) [facility] Result panel 271 (unknown) (no date) (unknown) [facility]) Result panel 272 (unknown) (no date) (unknown) [facility]) Result panel 273 (unknown) (no date) (unknown) [facility]) Result panel 274 (unknown) (no date) (unknown) [facility]) Result panel 275 (unknown) (no date) (unknown) [facility] Result panel 276 (unknown) (no date) (unknown) [facility]) Result panel 277 (unknown) (no date) (unknown) [facility]) Result panel 278 (unknown) (no date) (unknown) [facility]) Result panel 279 (unknown) (no date) (unknown) [facility]) Result panel 280 (unknown) (no date) (unknown) [facility]) Result panel 281 (unknown) (no date) (unknown) [facility]) Result panel 282 (unknown) (no date) (unknown) [facility]) Result panel 283 (unknown) (no date) (unknown) [facility]) Result panel 284 (unknown) (no date) (unknown) [facility] Result panel 285 (unknown) (no date) (unknown) [facility] Result panel 286 (unknown) (no date) (unknown) [facility]) Result panel 287 (unknown) (no date) (unknown) [facility]) Result panel 288 (unknown) (no date) (unknown) [facility] Result panel 289 (unknown) (no date) (unknown[facility]) Result panel 290 (unknown) (no date) (unknown) [facility] Result panel 291 (unknown) (no date) (unknown[facility] Result panel 292 (unknown) (no date) (unknown) [facility]) Result panel 293 (unknown) (no date) (unknown) [facility]) Result panel 294 (unknown) (no date) (unknown[facility]) Result panel 295 (unknown) (no date) (unknown) [facility]) Result panel 296 (unknown) (no date) (unknown) [facility]) Result panel 297 (unknown) (no date) (unknown) [facility]) Result panel 298 (unknown) (no date) (unknown) [facility] Result panel 299 (unknown) (no date) (unknown) [facility]) Result panel 300 (unknown) (no date) (unknown) [facility] Result panel 301 (unknown) (no date) (unknown[facility]) Result panel 302 (unknown) (no date) (unknown) [facility]) Result panel 303 (unknown) (no date) (unknown) [facility]) Result panel 304 (unknown) (no date) (unknown[facility] Result panel 305 (unknown) (no date) (unknown) [facility]) Result panel 306 (unknown) (no date) (unknown) [facility]) Result panel 307 (unknown) (no date) (unknown) [facility]) Result panel 308 (unknown) (no date) (unknown) [facility] Result panel 309 (unknown) (no date) (unknown[facility]) Result panel 310 (unknown) (no date) (unknown) [facility] Result panel 311 (unknown) (no date) (unknown) [facility] Result panel 312 (unknown) (no date) (unknown) [facility]) Result panel 313 (unknown) (no date) (unknown[facility]) Result panel 314 (unknown) (no date) (unknown) [facility] Result panel 315 (unknown) (no date) (unknown[facility] Result panel 316 (unknown) (no date) (unknown) [facility]) Result panel 317 (unknown) (no date) (unknown) [facility] Result panel 318 (unknown) (no date) (unknown[facility]) Result panel 319 (unknown) (no date) (unknown) [facility] Result panel 320 (unknown) (no date) (unknown) [facility]) Result panel 321 (unknown) (no date) (unknown[facility]) Result panel 322 (unknown) (no date) (unknown[facility]) Result panel 323 (unknown) (no date) (unknown) [facility]) Result panel 324 (unknown) (no date) (unknown) [facility]) Result panel 325 (unknown) (no date) (unknown) [facility]) Result panel 326 (unknown) (no date) (unknown) [facility]) Result panel 327 (unknown) (no date) (unknown) [facility]) Result panel 328 (unknown) (no date) (unknown) [facility]) Result panel 329 (unknown) (no date) (unknown[facility]) Result panel 330 (unknown) (no date) (unknown) [facility]) Result panel 331 (unknown) (no date) (unknown) [facility]) Result panel 332 (unknown) (no date) (unknown) [facility]) Result panel 333 (unknown) (no date) (unknown) [facility] Result panel 334 (unknown) (no date) (unknown[facility]) Result panel 335 (unknown) (no date) (unknown) [facility]) Result panel 336 (unknown) (no date) (unknown) [facility]) Result panel 337 (unknown) (no date) (unknown) [facility]) Result panel 338 (unknown) (no date) (unknown[facility] Result panel 339 (unknown) (no date) (unknown) [facility]) Result panel 340 (unknown) (no date) (unknown) [facility]) Result panel 341 (unknown) (no date) (unknown) [facility] Result panel 342 (unknown) (no date) (unknown) [facility]) Result panel 343 (unknown) (no date) (unknown) [facility]) Result panel 344 (unknown) (no date) (unknown) [facility] Result panel 345 (unknown) (no date) (unknown[facility]) Result panel 346 (unknown) (no date) (unknown[facility]) Result panel 347 (unknown) (no date) (unknown) [facility] Result panel 348 (unknown) (no date) (unknown) [facility]) Result panel 349 (unknown) (no date) (unknown) [facility]) Result panel 350 (unknown) (no date) (unknown[facility]) Result panel 351 (unknown) (no date) (unknown) [facility] Result panel 352 (unknown) (no date) (unknown[facility]) Result panel 353 (unknown) (no date) (unknown) [facility]) Result panel 354 (unknown) (no date) (unknown) [facility] Result panel 355 (unknown) (no date) (unknown) [facility] Result panel 356 (unknown) (no date) (unknown) [facility]) Result panel 357 (unknown) (no date) (unknown) [facility]) Result panel 358 (unknown) (no date) (unknown) [facility] Result panel 359 (unknown) (no date) (unknown) [facility]) Result panel 360 (unknown) (no date) (unknown[facility]) Result panel 361 (unknown) (no date) (unknown) [facility]) Result panel 362 (unknown) (no date) (unknown) [facility]) Result panel 363 (unknown) (no date) (unknown) [facility]) Result panel 364 (unknown) (no date) (unknown) [facility]) Result panel 365 (unknown) (no date) (unknown[facility]) Result panel 366 (unknown) (no date) (unknown) [facility]) Result panel 367 (unknown) (no date) (unknown) [facility]) Result panel 368 (unknown) (no date) (unknown) [facility]) Result panel 369 (unknown) (no date) (unknown[facility]) Result panel 370 (unknown) (no date) (unknown) [facility]) Result panel 371 (unknown) (no date) (unknown) [facility] Result panel 372 (unknown) (no date) (unknown[facility]) Result panel 373 (unknown) (no date) (unknown) [facility]) Result panel 374 (unknown) (no date) (unknown) [facility]) Result panel 375 (unknown) (no date) (unknown) [facility]) Result panel 376 (unknown) (no date) (unknown) [facility]) Result panel 377 (unknown) (no date) (unknown) [facility]) Result panel 378 (unknown) (no date) (unknown) [facility]) Result panel 379 (unknown) (no date) (unknown[facility]) Result panel 380 (unknown) (no date) (unknown) [facility]) Result panel 381 (unknown) (no date) (unknown) [facility]) Result panel 382 (unknown) (no date) (unknown[facility]) Result panel 383 (unknown) (no date) (unknown) [facility]) Result panel 384 (unknown) (no date) (unknown) [facility]) Result panel 385 (unknown) (no date) (unknown) [facility]) Result panel 386 (unknown) (no date) (unknown) [facility]) Result panel 387 (unknown) (no date) (unknown) [facility]) Result panel 388 (unknown) (no date) (unknown[facility]) Result panel 389 (unknown) (no date) (unknown) [facility]) Result panel 390 (unknown) (no date) (unknown[facility]) Result panel 391 (unknown) (no date) (unknown) [facility]) Result panel 392 (unknown) (no date) (unknown[facility]) Result panel 393 (unknown) (no date) (unknown[facility] Result panel 394 (unknown) (no date) (unknown) [facility]) Result panel 395 (unknown) (no date) (unknown) [facility]) Result panel 396 (unknown) (no date) (unknown[facility]) Result panel 397 (unknown) (no date) (unknown[facility]) Result panel 398 (unknown) (no date) (unknown) [facility]) Result panel 399 (unknown) (no date) (unknown[facility]) Result panel 400 (unknown) (no date) (unknown) [facility]) Result panel 401 (unknown) (no date) (unknown) [facility]) Result panel 402 (unknown) (no date) (unknown) [facility]) Result panel 403 (unknown) (no date) (unknown[facility]) Result panel 404 (unknown) (no date) (unknown) [facility]) Result panel 405 (unknown) (no date) (unknown[facility]) Result panel 406 (unknown) (no date) (unknown) [facility]) Result panel 407 (unknown) (no date) (unknown) [facility]) Result panel 408 (unknown) (no date) (unknown) [facility]) Result panel 409 (unknown) (no date) (unknown) [facility]) Result panel 410 (unknown) (no date) (unknown) [facility]) Result panel 411 (unknown) (no date) (unknown) [facility]) Result panel 412 (unknown) (no date) (unknown) [facility]) Result panel 413 (unknown) (no date) (unknown[facility]) Result panel 414 (unknown) (no date) (unknown) [facility]) Result panel 415 (unknown) (no date) (unknown[facility]) Result panel 416 (unknown) (no date) (unknown) [facility]) Result panel 417 (unknown) (no date) (unknown) [facility]) Result panel 418 (unknown) (no date) (unknown[facility] Result panel 419 (unknown) (no date) (unknown) [facility]) Result panel 420 (unknown) (no date) (unknown) [facility]) Result panel 421 (unknown) (no date) (unknown) [facility]) Result panel 422 (unknown) (no date) (unknown) [facility]) Result panel 423 (unknown) (no date) (unknown) [facility]) Result panel 424 (unknown) (no date) (unknown) [facility]) Result panel 425 (unknown) (no date) (unknown) [facility]) Result panel 426 (unknown) (no date) (unknown) [facility]) Result panel 427 (unknown) (no date) (unknown) [facility]) Result panel 428 (unknown) (no date) (unknown) [facility]) Result panel 429 (unknown) (no date) (unknown) [facility]) Result panel 430 (unknown) (no date) (unknown) [facility]) Result panel 431 (unknown) (no date) (unknown) [facility]) Result panel 432 (unknown) (no date) (unknown) [facility]) Result panel 433 (unknown) (no date) (unknown) [facility]) Result panel 434 (unknown) (no date) (unknown) [facility]) Result panel 435 (unknown) (no date) (unknown) [facility]) Result panel 436 (unknown) (no date) (unknown) [facility]) Result panel 437 (unknown) (no date) (unknown) [facility] Result panel 438 (unknown) (no date) (unknown) [facility]) Result panel 439 (unknown) (no date) (unknown) [facility]) Result panel 440 (unknown) (no date) (unknown) [facility]) Result panel 441 (unknown) (no date) (unknown) [facility]) Result panel 442 (unknown) (no date) (unknown) [facility]) Result panel 443 (unknown) (no date) (unknown) [facility]) Result panel 444 (unknown) (no date) (unknown) [facility]) Result panel 445 (unknown) (no date) (unknown) [facility]) Result panel 446 (unknown) (no date) (unknown) [facility]) Result panel 447 (unknown) (no date) (unknown) [facility]) Result panel 448 (unknown) (no date) (unknown) [facility]) Result panel 449 (unknown) (no date) (unknown) [facility]) Result panel 450 (unknown) (no date) (unknown) [facility]) Result panel 451 (unknown) (no date) (unknown) [facility] Result panel 452 (unknown) (no date) (unknown) [facility]) Result panel 453 (unknown) (no date) (unknown) [facility] Result panel 454 (unknown) (no date) (unknown) [facility]) Result panel 455 (unknown) (no date) (unknown) [facility]) Result panel 456 (unknown) (no date) (unknown) [facility]) Result panel 457 (unknown) (no date) (unknown) [facility]) Result panel 458 (unknown) (no date) (unknown) [facility]) Result panel 459 (unknown) (no date) (unknown) [facility]) Result panel 460 (unknown) (no date) (unknown) [facility]) Result panel 461 (unknown) (no date) (unknown) [facility]) Result panel 462 (unknown) (no date) (unknown) [facility]) Result panel 463 (unknown) (no date) (unknown) [facility]) Result panel 464 (unknown) (no date) (unknown) [facility]) Result panel 465 (unknown) (no date) (unknown) [facility]) Result panel 466 (unknown) (no date) (unknown) [facility]) Result panel 467 (unknown) (no date) (unknown) [facility]) Result panel 468 (unknown) (no date) (unknown) [facility]) Result panel 469 (unknown) (no date) (unknown) [facility]) Result panel 470 (unknown) (no date) (unknown) [facility]) Result panel 471 (unknown) (no date) (unknown) [facility]) Result panel 472 (unknown) (no date) (unknown) [facility]) Result panel 473 (unknown) (no date) (unknown) [facility]) Result panel 474 (unknown) (no date) (unknown) [facility]) Result panel 475 (unknown) (no date) (unknown[facility]) Result panel 476 (unknown) (no date) (unknown) [facility]) Result panel 477 (unknown) (no date) (unknown) [facility]) Result panel 478 (unknown) (no date) (unknown) [facility]) Result panel 479 (unknown) (no date) (unknown) [facility]) Result panel 480 (unknown) (no date) (unknown) [facility]) Result panel 481 (unknown) (no date) (unknown) [facility]) Result panel 482 (unknown) (no date) (unknown) [facility]) Result panel 483 (unknown) (no date) (unknown) [facility]) Result panel 484 (unknown) (no date) (unknown) [facility]) Result panel 485 (unknown) (no date) (unknown) [facility]) Result panel 486 (unknown) (no date) (unknown) [facility]) Result panel 487 (unknown) (no date) (unknown) [facility]) Result panel 488 (unknown) (no date) (unknown) [facility]) Result panel 489 (unknown) (no date) (unknown) [facility]) Result panel 490 (unknown) (no date) (unknown) [facility]) Result panel 491 (unknown) (no date) (unknown) [facility]) Result panel 492 (unknown) (no date) (unknown) [facility]) Result panel 493 (unknown) (no date) (unknown) [facility] Result panel 494 (unknown) (no date) (unknown) [facility]) Result panel 495 (unknown) (no date) (unknown) [facility]) Result panel 496 (unknown) (no date) (unknown) [facility]) Result panel 497 (unknown) (no date) (unknown) [facility]) Result panel 498 (unknown) (no date) (unknown) [facility]) Result panel 499 (unknown) (no date) (unknown) [facility]) Result panel 500 (unknown) (no date) (unknown) [facility]) Result panel 501 (unknown) (no date) (unknown) [facility]) Result panel 502 (unknown) (no date) (unknown) [facility]) Result panel 503 (unknown) (no date) (unknown) [facility]) Result panel 504 (unknown) (no date) (unknown) [facility]) Result panel 505 (unknown) (no date) (unknown) [facility]) Result panel 506 (unknown) (no date) (unknown) [facility]) Result panel 507 (unknown) (no date) (unknown) [facility]) Result panel 508 (unknown) (no date) (unknown) [facility]) Result panel 509 (unknown) (no date) (unknown) [facility]) Result panel 510 (unknown) (no date) (unknown) [facility]) Result panel 511 (unknown) (no date) (unknown) [facility]) Result panel 512 (unknown) (no date) (unknown) [facility]) Result panel 513 (unknown) (no date) (unknown) [facility]) Result panel 514 (unknown) (no date) (unknown) [facility]) Result panel 515 (unknown) (no date) (unknown) [facility]) Result panel 516 (unknown) (no date) (unknown) [facility]) Result panel 517 (unknown) (no date) (unknown) [facility]) Result panel 518 (unknown) (no date) (unknown) [facility]) Result panel 519 (unknown) (no date) (unknown) [facility]) Result panel 520 (unknown) (no date) (unknown) [facility]) Result panel 521 (unknown) (no date) (unknown) [facility]) Result panel 522 (unknown) (no date) (unknown) [facility]) Result panel 523 (unknown) (no date) (unknown) [facility]) Result panel 524 (unknown) (no date) (unknown) [facility]) Result panel 525 (unknown) (no date) (unknown) [facility]) Result panel 526 (unknown) (no date) (unknown) [facility]) Result panel 527 (unknown) (no date) (unknown) [facility]) Result panel 528 (unknown) (no date) (unknown) [facility]) Result panel 529 (unknown) (no date) (unknown) [facility]) Result panel 530 (unknown) (no date) (unknown) [facility]) Result panel 531 (unknown) (no date) (unknown) [facility]) Result panel 532 (unknown) (no date) (unknown) [facility]) Result panel 533 (unknown) (no date) (unknown) [facility]) Result panel 534 (unknown) (no date) (unknown) [facility]) Result panel 535 (unknown) (no date) (unknown) [facility]) Result panel 536 (unknown) (no date) (unknown) [facility]) Result panel 537 (unknown) (no date) (unknown) [facility]) Result panel 538 (unknown) (no date) (unknown) [facility]) Result panel 539 (unknown) (no date) (unknown) [facility]) Result panel 540 (unknown) (no date) (unknown) [facility]) Result panel 541 (unknown) (no date) (unknown) [facility]) Result panel 542 (unknown) (no date) (unknown) [facility]) Result panel 543 (unknown) (no date) (unknown) [facility]) Result panel 544 (unknown) (no date) (unknown) [facility]) Result panel 545 (unknown) (no date) (unknown) [facility]) Result panel 546 (unknown) (no date) (unknown) [facility]) Result panel 547 (unknown) (no date) (unknown) [facility]) Result panel 548 (unknown) (no date) (unknown) [facility]) Result panel 549 (unknown) (no date) (unknown) [facility]) Result panel 550 (unknown) (no date) (unknown) [facility]) Result panel 551 (unknown) (no date) (unknown) [facility]) Result panel 552 (unknown) (no date) (unknown) (unknown) (no value) (units (un known) unknown) (unknown) (no date) (unknown) (unknown) 03/05/22 (units (unkn own) unknown) (unknown) (no date) (unknown) (unknown) [address] (units (unk nown) [address] unknown) (unknown) (no date) (unknown) (unknown) : [id number] (units ( unknown) unknown) (unknown) (no date) (unknown) (unknown) Accession (units (unk nown) Number: unknown) [id number] (unknown) (no date) (unknown) (unknown) Age/Sex: 36 / (units (unknown) F Date of unknown) Service: (unknown) (no date) (unknown) (unknown) [place], [place] (units (unknown) [id number] unknown) (unknown) (no date) (unknown) (unknown) Approved by: (units ( unknown) Errol unknown) Jose Lennon on 03/05/2022 at 10:55 (unknown) (no date) (unknown) (unknown) Bones and (units (unk nown) chest wall: No unknown) suspicious bony lesions. Overlying soft tissues (unknown) (no date) (unknown) (unknown) COMPARISON: [facility], , CHEST 2 VIEW, 12/16/2008, 21:11. (unknown) (no date) (unknown) (unknown) : (units (unkn own) 1985 unknown) Acct:[id number] (unknown) (no date) (unknown) (unknown) Dictated by: (units ( unknown) Errol unknown) Jose Lennon on 03/05/2022 at 10:54 (unknown) (no date) (unknown) (unknown) FINDINGS: (units (unk nown) unknown) (unknown) (no date) (unknown) (unknown) IMPRESSION: No (units (unknown) evidence acute unknown) pulmonary process. (unknown) (no date) (unknown) (unknown) INDICATIONS: (units ( unknown) chest pain unknown) (unknown) (no date) (unknown) (unknown) [facility] (unknown) (no date) (unknown) (unknown) Loc: ED (units (unkn own) unknown) (unknown) (no date) (unknown) (unknown) Lungs and (units (unk nown) pleura: Lungs unknown) are clear. No pleural effusions or pneumothorax. (unknown) (no date) (unknown) (unknown) Mediastinum: (units ( unknown) Mediastinal unknown) contours appear normal. Heart size is normal. (unknown) (no date) (unknown) (unknown) Ordering (units (unkn own) Provider: unknown) Danita Vila D.O. (unknown) (no date) (unknown) (unknown) PROCEDURE: XR (units (unknown) CHEST 1V unknown) (unknown) (no date) (unknown) (unknown) Patient: (units (unkn own) David Castillo unknown) ie A MR# (unknown) (no date) (unknown) (unknown) Procedure: XR (units (unknown) chest 1V unknown) (unknown) (no date) (unknown) (unknown) Signed (units (unkn own) unknown) (unknown) (no date) (unknown) (unknown) Surgical (units (unkn own) changes and unknown) devices: None. (unknown) (no date) (unknown) (unknown) TECHNIQUE: One (units (unknown) view of the unknown) chest was acquired. (unknown) (no date) (unknown) (unknown) XRay Report (units (u nknown) unknown) (unknown) (no date) (unknown) (unknown) appear (units (unkn own) unknown) (unknown) (no date) (unknown) (unknown) unremarkable. (units (unknown) unknown) Result panel 553 (unknown) (no (unknown) (unknown) (no value) (units (unk nown) date) unknown) (unknown) (no (unknown) (unknown) 0.25 mg PO BID-TID (units (unknown) date) PRN (Reason: unknown) anxiety) Qty: 10 0RF (unknown) (no (unknown) (unknown) 03/05/22 10:32 (units (unknown) date) unknown) (unknown) (no (unknown) (unknown) 03/05/22 (units (unkno wn) date) unknown) (unknown) (no (unknown) (unknown) 07/03/18 (units (unkno wn) date) unknown) (unknown) (no (unknown) (unknown) 1 patch TOP DAILY (units (unknown) date) Qty: 15 0RF unknown) (unknown) (no (unknown) (unknown) 1 puff INHALATION (units (unknown) date) Q6H PRN (Reason: unknown) Adequate Ventilation) (unknown) (no (unknown) (unknown) 1 tab PO Q4-6H PRN (units (unknown) date) (Reason: pain) Qty: unknown) 10 0RF (unknown) (no (unknown) (unknown) 1 tab PO Q4-6H PRN (units (unknown) date) (Reason: pain) Qty: unknown) 7 0RF (unknown) (no (unknown) (unknown) 10:20 (units (unkno wn) date) unknown) (unknown) (no (unknown) (unknown) 150 mg PO PRN PRN (units (unknown) date) (Reason: Acid unknown) Reflux) (unknown) (no (unknown) (unknown) 4 mg PO PRN PRN (units (unknown) date) (Reason: Nausea) unknown) Qty: 0 (unknown) (no (unknown) (unknown) 4 mg PO QID PRN (units (unknown) date) (Reason: nausea and unknown) vomiting) Qty: 14 2RF (unknown) (no (unknown) (unknown) 4 mg PO TID-QID (units (unknown) date) PRN (Reason: nausea unknown) and vomiting) Qty: 20 0RF (unknown) (no (unknown) (unknown) Age/Sex: 36 / F (units (unknown) date) unknown) (unknown) (no (unknown) (unknown) Allergies (units (unkn own) date) unknown) (unknown) (no (unknown) (unknown) Allergy/AdvReac (units (unknown) date) Type Severity unknown) Reaction Status Date / Time (unknown) (no (unknown) (unknown) Asthma (units (unkno wn) date) unknown) (unknown) (no (unknown) (unknown) Blood Pressure (units (unknown) date) 113/03/05/22 unknown) 10:20 (unknown) (no (unknown) (unknown) Blood Pressure (units (unknown) date) unknown) (unknown) (no (unknown) (unknown) COVID19 -Nasal (units (unknown) date) RAPID/Pre-Proc Stat unknown) (unknown) (no (unknown) (unknown) Chief Complaint: (units (unknown) date) Chest Pain unknown) (unknown) (no (unknown) (unknown) Complete Blood (units (unknown) date) Count AUTO DIFF unknown) Stat (unknown) (no (unknown) (unknown) Comprehensive (units ( unknown) date) Metabolic Panel unknown) Stat (unknown) (no (unknown) (unknown) Course (units (unkno wn) date) unknown) (unknown) (no (unknown) (unknown) : 1985 (units (unknown) date) Acct:[id number] unknown) (unknown) (no (unknown) (unknown) Date of Service: (units (unknown) date) 03/05/22 unknown) (unknown) (no (unknown) (unknown) Departure (units (unkn own) date) unknown) (unknown) (no (unknown) (unknown) Discharge Plan (units (unknown) date) unknown) (unknown) (no (unknown) (unknown) ED Orders (units (unkn own) date) unknown) (unknown) (no (unknown) (unknown) EKG-12 Lead Stat (units (unknown) date) unknown) (unknown) (no (unknown) (unknown) ER Physician: (units ( unknown) date) Danita Vila D.O. unknown) (unknown) (no (unknown) (unknown) Emergency Report (units (unknown) date) unknown) (unknown) (no (unknown) (unknown) Exam (units (unkno wn) date) unknown) (unknown) (no (unknown) (unknown) General (units (unkno wn) date) unknown) (unknown) (no (unknown) (unknown) H/O exploratory (units (unknown) date) laparotomy unknown) (unknown) (no (unknown) (unknown) H/O left knee (units ( unknown) date) surgery unknown) (unknown) (no (unknown) (unknown) HPI - Chest Pain (units (unknown) date) unknown) (unknown) (no (unknown) (unknown) History of open (units (unknown) date) heart surgery unknown) (unknown) (no (unknown) (unknown) History of surgery (units (unknown) date) unknown) (unknown) (no (unknown) (unknown) Home Medications (units (unknown) date) unknown) (unknown) (no (unknown) (unknown) Initial Vital (units ( unknown) date) Signs unknown) (unknown) (no (unknown) (unknown) Initial Vital (units ( unknown) date) Signs: unknown) (unknown) (no (unknown) (unknown) [facility] (units (unknown) date) [address] [place] [address] unknown) [place] [address] (unknown) (no (unknown) (unknown) Lactate (Lactic (units (unknown) date) Acid) Stat unknown) (unknown) (no (unknown) (unknown) Lipase Stat (units (un known) date) unknown) (unknown) (no (unknown) (unknown) [id number] (units (unk nown) date) unknown) (unknown) (no (unknown) (unknown) Magnesium Stat (units (unknown) date) unknown) (unknown) (no (unknown) (unknown) Medical History (units (unknown) date) (Updated 06/17/18 @ unknown) 00:00 by ) (unknown) (no (unknown) (unknown) Medication (units (unk nown) date) Instructions unknown) Recorded Confirmed (unknown) (no (unknown) (unknown) Medication (units (unk nown) date) Instructions unknown) Recorded (unknown) (no (unknown) (unknown) No Action (units (unkn own) date) unknown) (unknown) (no (unknown) (unknown) Ondansetron (units (un known) date) (Zofran Odt) 4 mg unknown) PO PRN PRN Nausea ##0 07/06/10 07/03/18 (unknown) (no (unknown) (unknown) Ondansetron (units (un known) date) (Zofran Odt) tablet unknown) (unknown) (no (unknown) (unknown) Ordered: (units (unkno wn) date) unknown) (unknown) (no (unknown) (unknown) Orders (units (unkno wn) date) unknown) (unknown) (no (unknown) (unknown) Oxygen Delivery (units (unknown) date) Method 03/05/22 unknown) 10:20 (unknown) (no (unknown) (unknown) Oxygen Delivery (units (unknown) date) Method Room Air unknown) (unknown) (no (unknown) (unknown) Partial (units (unkno wn) date) Thromboplastin Time unknown) Stat (unknown) (no (unknown) (unknown) Patient History (units (unknown) date) unknown) (unknown) (no (unknown) (unknown) Patient: (units (unkno wn) date) Carmina Castillo Kenneth unknown) MR#: (unknown) (no (unknown) (unknown) Penicillins (units (un known) date) Allergy unknown) Intermediate Rash Verified 03/05/22 10:24 (unknown) (no (unknown) (unknown) Pertussis Vaccines (units (unknown) date) Allergy Unknown unknown) Seizure Verified 03/05/22 10:24 (unknown) (no (unknown) (unknown) Prescriptions: (units (unknown) date) unknown) (unknown) (no (unknown) (unknown) Previous Rx's (units ( unknown) date) unknown) (unknown) (no (unknown) (unknown) Procalcitonin Stat (units (unknown) date) unknown) (unknown) (no (unknown) (unknown) Prothrombin Time (units (unknown) date) INR Stat unknown) (unknown) (no (unknown) (unknown) Pulse Oximetry 100 (units (unknown) date) 03/05/22 10:20 unknown) (unknown) (no (unknown) (unknown) Pulse Oximetry 100 (units (unknown) date) unknown) (unknown) (no (unknown) (unknown) Pulse Rate 63 (units ( unknown) date) 03/05/22 10:20 unknown) (unknown) (no (unknown) (unknown) Pulse Rate 63 (units ( unknown) date) unknown) (unknown) (no (unknown) (unknown) Kitchen Aide (units (unkno wn) date) (ranitidine)) unknown) (unknown) (no (unknown) (unknown) Referrals: (units (unk nown) date) unknown) (unknown) (no (unknown) (unknown) Related Data (units (u nknown) date) unknown) (unknown) (no (unknown) (unknown) Respiratory Rate (units (unknown) date) 16 03/05/22 10:20 unknown) (unknown) (no (unknown) (unknown) Respiratory Rate (units (unknown) date) 16 unknown) (unknown) (no (unknown) (unknown) Rx Instructions: (units (unknown) date) unknown) (unknown) (no (unknown) (unknown) S/P laparoscopic (units (unknown) date) supracervical unknown) hysterectomy (04/04/18) (unknown) (no (unknown) (unknown) Daniel Ghosh DO (units (unknown) date) [Primary Care unknown) Provider] (unknown) (no (unknown) (unknown) Signed By: (units (unk nown) date) unknown) (unknown) (no (unknown) (unknown) Smoking Status: (units (unknown) date) Former smoker unknown) (unknown) (no (unknown) (unknown) Social History (units (unknown) date) (Reviewed 06/02/18 unknown) @ 21:47 by DENISE Cazares) (unknown) (no (unknown) (unknown) Stated Complaint: (units (unknown) date) pain in chest, unknown) sternum hurts, cough (unknown) (no (unknown) (unknown) Substance Use (units ( unknown) date) Type: marijuana unknown) (unknown) (no (unknown) (unknown) Surgical History (units (unknown) date) (Reviewed 06/02/18 unknown) @ 21:47 by DENISE Cazares) (unknown) (no (unknown) (unknown) TSH [Thyroid (units (u nknown) date) Stimulating unknown) Hormone] Stat (unknown) (no (unknown) (unknown) Temperature 97 F L (units (unknown) date) 03/05/22 10:20 unknown) (unknown) (no (unknown) (unknown) Temperature 97 F L (units (unknown) date) unknown) (unknown) (no (unknown) (unknown) Time Seen by (units (u nknown) date) Provider: 03/05/22 unknown) 10:35 (unknown) (no (unknown) (unknown) Troponin + CK (units ( unknown) date) Cardiac Panel Stat unknown) (unknown) (no (unknown) (unknown) Upset (units (unkno wn) date) unknown) (unknown) (no (unknown) (unknown) Vital Signs - 8 hr (units (unknown) date) unknown) (unknown) (no (unknown) (unknown) Vital Signs (units (un known) date) unknown) (unknown) (no (unknown) (unknown) Vital signs: (units (u nknown) date) unknown) (unknown) (no (unknown) (unknown) XR chest 1V Stat (units (unknown) date) unknown) (unknown) (no (unknown) (unknown) [PERTUSSIS (units (unk nown) date) VACCINES] unknown) (unknown) (no (unknown) (unknown) aerosol inhaler (units (unknown) date) (ProAir HFA) unknown) Ventilation (unknown) (no (unknown) (unknown) albuterol sulfate (units (unknown) date) 90 mcg/actuation 1 unknown) puff inhalation Q6H PRN Adequate 11/14/17 (unknown) (no (unknown) (unknown) albuterol sulfate (units (unknown) date) [ProAir HFA] 90 unknown) mcg/actuation HFA aerosol inhaler (unknown) (no (unknown) (unknown) alcohol intake (units (unknown) date) frequency: 0-2 unknown) drinks per day (unknown) (no (unknown) (unknown) alprazolam 0.25 mg (units (unknown) date) tablet (Xanax) 0.25 unknown) mg PO BID-TID PRN anxiety #10 03/18/18 (unknown) (no (unknown) (unknown) alprazolam [Xanax] (units (unknown) date) 0.25 mg tablet unknown) (unknown) (no (unknown) (unknown) amoxicillin (units (un known) date) Allergy unknown) Intermediate Rash, Verified 03/05/22 10:24 (unknown) (no (unknown) (unknown) azithromycin (units (u nknown) date) Allergy unknown) Intermediate Gastrointestinal Verified 03/05/22 10:24 (unknown) (no (unknown) (unknown) ciprofloxacin (units ( unknown) date) Allergy unknown) Intermediate Gastrointestinal Verified 03/05/22 10:24 (unknown) (no (unknown) (unknown) gluten AdvReac (units (unknown) date) Mild Stomach unknown) Verified 03/05/22 10:24 (unknown) (no (unknown) (unknown) headache (units (unkno wn) date) unknown) (unknown) (no (unknown) (unknown) household members: (units (unknown) date) spouse and children unknown) (unknown) (no (unknown) (unknown) hydrocodone 5 (units ( unknown) date) mg-acetaminophen unknown) 325 1 tab PO Q4-6H PRN pain #10 tabs 05/19/18 (unknown) (no (unknown) (unknown) hydrocodone 5 (units ( unknown) date) mg-acetaminophen unknown) 325 1 tab PO Q4-6H PRN pain #7 tabs 06/02/18 (unknown) (no (unknown) (unknown) hydrocodone-acetam (units (unknown) date) inophen 5-325 mg unknown) tablet (unknown) (no (unknown) (unknown) hydromorphone (units ( unknown) date) Allergy Mild unknown) Flushing Verified 03/05/22 10:24 (unknown) (no (unknown) (unknown) ibuprofen Allergy (units (unknown) date) Mild Kidney unknown) Verified 03/05/22 10:24 (unknown) (no (unknown) (unknown) infection (units (unkn own) date) unknown) (unknown) (no (unknown) (unknown) leave on most (units ( unknown) date) painful area for 12 unknown) hrs (unknown) (no (unknown) (unknown) lidocaine 5 % (units ( unknown) date) adhesive unknown) patch,medicated (unknown) (no (unknown) (unknown) lidocaine 5 % (units ( unknown) date) topical patch 1 unknown) patch topical DAILY #15 ea 06/02/18 (unknown) (no (unknown) (unknown) mg tablet (units (unkn own) date) unknown) (unknown) (no (unknown) (unknown) nausea, (units (unkno wn) date) unknown) (unknown) (no (unknown) (unknown) nickel AdvReac (units (unknown) date) Mild Irritation/ unknown) Verified 03/05/22 10:24 (unknown) (no (unknown) (unknown) ondansetron 4 mg (units (unknown) date) disintegrating 4 mg unknown) PO QID PRN nausea and 04/05/18 (unknown) (no (unknown) (unknown) ondansetron 4 mg (units (unknown) date) disintegrating 4 mg unknown) PO TID-QID PRN nausea and 06/02/18 (unknown) (no (unknown) (unknown) ondansetron 4 mg (units (unknown) date) tablet,disintegrati unknown) ng (unknown) (no (unknown) (unknown) pain, (units (unkno wn) date) unknown) (unknown) (no (unknown) (unknown) ranitidine HCl 150 (units (unknown) date) mg tablet (Acid 150 unknown) mg PO PRN PRN Acid Reflux 04/05/18 (unknown) (no (unknown) (unknown) ranitidine HCl (units (unknown) date) [Acid Kitchen Aide unknown) (ranitidine)] 150 mg Tablet (unknown) (no (unknown) (unknown) redness (units (unkno wn) date) unknown) (unknown) (no (unknown) (unknown) tablet vomiting (units (unknown) date) #14 tabs unknown) (unknown) (no (unknown) (unknown) tablet vomiting (units (unknown) date) #20 tabs unknown) (unknown) (no (unknown) (unknown) tabs (units (unkno wn) date) unknown) (unknown) (no (unknown) (unknown) throat was (units (unk nown) date) unknown) (unknown) (no (unknown) (unknown) tingly (units (unkno wn) date) unknown) Result panel 554 (unknown) (no (unknown) (unknown) (no value) (units (unk nown) date) unknown) (unknown) (no (unknown) (unknown) (single)CT at 3 (units (unknown) date) unknown) (unknown) (no (unknown) (unknown) 03/05/22 (units (unkno wn) date) unknown) (unknown) (no (unknown) (unknown) 1. No evidence of (units (unknown) date) acute process in unknown) the chest, abdomen, and pelvis. (unknown) (no (unknown) (unknown) [address] [place] [address] (units (unknown) date) unknown) (unknown) (no (unknown) (unknown) 2. Multiple (units (un known) date) pulmonary nodules, unknown) all 3 mm or less. Please see chart below for (unknown) (no (unknown) (unknown) 6 mm or larger (units (unknown) date) (ground glass)CT unknown) at 6-12 months to confirm persistence, then CT (unknown) (no (unknown) (unknown) : [id number] (units (u nknown) date) unknown) (unknown) (no (unknown) (unknown) ABDOMEN: (units (unkno wn) date) unknown) (unknown) (no (unknown) (unknown) Accession Number: (units (unknown) date) [id number] unknown) (unknown) (no (unknown) (unknown) After the (units (unkn own) date) administration of unknown) intravenous contrast, 5 mm thick sections acquired (unknown) (no (unknown) (unknown) Age/Sex: 36 / F (units (unknown) date) Date of Service: unknown) (unknown) (no (unknown) (unknown) [place], [place] (units ( unknown) date) [id number] unknown) (unknown) (no (unknown) (unknown) Approved by: (units (u nknown) date) pilar Woods M.D. on 03/05/2022 at 12:55 (unknown) (no (unknown) (unknown) Bones: No (units (unkn own) date) suspicious bony unknown) lesions. No vertebral body compression fractures. (unknown) (no (unknown) (unknown) CHEST: (units (unkno wn) date) unknown) (unknown) (no (unknown) (unknown) COMPARISON: None. (units (unknown) date) unknown) (unknown) (no (unknown) (unknown) CT Scan Report (units (unknown) date) unknown) (unknown) (no (unknown) (unknown) Chest wall: No (units (unknown) date) axillary or unknown) supraclavicular adenopathy by size criteria. (unknown) (no (unknown) (unknown) : 1985 (units (unknown) date) Acct:[id number] unknown) (unknown) (no (unknown) (unknown) Dictated by: (units (u nknown) date) Errol Lennon, unknown) Jose on 03/05/2022 at 12:54 (unknown) (no (unknown) (unknown) FINDINGS: (units (unkn own) date) unknown) (unknown) (no (unknown) (unknown) Fleischner (units (unk nown) date) Society criteria unknown) for SOLID lung nodule followup. (unknown) (no (unknown) (unknown) Fleischner (units (unk nown) date) Society criteria unknown) for SUB-SOLID lung nodule followup. (unknown) (no (unknown) (unknown) Genitourinary: (units (unknown) date) Bladder wall unknown) thickness is normal. (unknown) (no (unknown) (unknown) IMPRESSION: (units (un known) date) unknown) (unknown) (no (unknown) (unknown) INDICATIONS: (units (u nknown) date) weight loss, night unknown) sweats, bilateral breast lymphnodes (unknown) (no (unknown) (unknown) Image quality: (units (unknown) date) Excellent. unknown) (unknown) (no (unknown) (unknown) [facility] (units (unknown) date) unknown) (unknown) (no (unknown) (unknown) Kidneys (units (unkno wn) date) demonstrate normal unknown) size and enhancement, without hydronephrosis. (unknown) (no (unknown) (unknown) Loc: ED (units (unkno wn) date) unknown) (unknown) (no (unknown) (unknown) Lungs and pleura: (units (unknown) date) No acute airspace unknown) opacities. There are 3 probable small (unknown) (no (unknown) (unknown) Mediastinum: (units (u nknown) date) Heart size is unknown) normal. No pericardial effusion. No mediastinal (unknown) (no (unknown) (unknown) Miscellaneous: No (units (unknown) date) inguinal hernias unknown) or adenopathy. Retroverted uterus. (unknown) (no (unknown) (unknown) Miscellaneous: No (units (unknown) date) ventral hernias. unknown) (unknown) (no (unknown) (unknown) Multiple (units (unkno wn) date) unknown) (unknown) (no (unknown) (unknown) No (units (unkno wn) date) unknown) (unknown) (no (unknown) (unknown) Nodes and (units (unkn own) date) vessels: No unknown) retroperitoneal or mesenteric adenopathy by size (unknown) (no (unknown) (unknown) Nodule size (units (un known) date) (mm)Low-risk unknown) patientHigh-risk patient<6 (single or multiple)No (unknown) (no (unknown) (unknown) Ordering (units (unkno wn) date) Provider: unknown) Danita Vila D.O. (unknown) (no (unknown) (unknown) PELVIS: (units (unkno wn) date) unknown) (unknown) (no (unknown) (unknown) PROCEDURE: CT (units ( unknown) date) CHEST ABD PEL W unknown) CON (unknown) (no (unknown) (unknown) Pancreas (units (unkno wn) date) unknown) (unknown) (no (unknown) (unknown) Patient: (units (unkno wn) date) Carmina Castillo unknown) A MR# (unknown) (no (unknown) (unknown) Peritoneum and (units (unknown) date) bowel: Bowel loops unknown) demonstrate normal wall thickness and (unknown) (no (unknown) (unknown) Procedure: CT (units ( unknown) date) chest abd pel w unknown) con (unknown) (no (unknown) (unknown) Signed (units (unkno wn) date) unknown) (unknown) (no (unknown) (unknown) Solid organs: (units ( unknown) date) Liver is normal in unknown) size and enhancement. Gallbladder is (unknown) (no (unknown) (unknown) Solitary pure (units (u nknown) date) ground-glass unknown) nodules<6 mm (ground glass or part solid)No followup (unknown) (no (unknown) (unknown) TECHNIQUE: (units (unk nown) date) unknown) (unknown) (no (unknown) (unknown) Thyroid gland (units ( unknown) date) unknown) (unknown) (no (unknown) (unknown) according to (units (u nknown) date) unknown) (unknown) (no (unknown) (unknown) additional 7 mm (units (unknown) date) MIP reformats unknown) through the lungs. For radiation dose reduction, (unknown) (no (unknown) (unknown) adenopathy by (units ( unknown) date) size criteria. unknown) Thoracic aorta and central pulmonary arteries are (unknown) (no (unknown) (unknown) and inferior vena (units (unknown) date) cava are normal in unknown) size. (unknown) (no (unknown) (unknown) approximately 3 (units (unknown) date) unknown) (unknown) (no (unknown) (unknown) caliber. No (units (un known) date) unknown) (unknown) (no (unknown) (unknown) contracted, (units (un known) date) unknown) (unknown) (no (unknown) (unknown) criteria. Aorta (units (unknown) date) unknown) (unknown) (no (unknown) (unknown) enhances (units (unkno wn) date) normally. Spleen unknown) is normal in size and enhancement. No adrenal (unknown) (no (unknown) (unknown) every 2 (units (unkno wn) date) unknown) (unknown) (no (unknown) (unknown) fissural (units (unkno wn) date) unknown) (unknown) (no (unknown) (unknown) follow-up (units (unkn own) date) unknown) (unknown) (no (unknown) (unknown) following was (units ( unknown) date) used: automated unknown) exposure control, adjustment of mA and/or kV (unknown) (no (unknown) (unknown) followup.Optional (units (unknown) date) CT at 12 months. unknown) 6-8 (single or multiple)CT at 6-12 months, (unknown) (no (unknown) (unknown) free fluid or (units ( unknown) date) air. unknown) (unknown) (no (unknown) (unknown) from the (units (unkno wn) date) unknown) (unknown) (no (unknown) (unknown) high risk (units (unkn own) date) unknown) (unknown) (no (unknown) (unknown) immunosuppression (units (unknown) date) , or patients with unknown) known primary cancer. (unknown) (no (unknown) (unknown) is unremarkable . (units (unknown) date) unknown) (unknown) (no (unknown) (unknown) lung apices to (units (unknown) date) the symphysis. 5 unknown) mm coronal and sagittal reformats were (unknown) (no (unknown) (unknown) lymph nodes in (units (unknown) date) the major fissure unknown) of the right lung. They each measure (unknown) (no (unknown) (unknown) mm. There is a 3 (units (unknown) date) mm subpleural unknown) pulmonary nodule in the extreme left lung base. (unknown) (no (unknown) (unknown) months, PET-CT, (units (unknown) date) or biopsy. Same as unknown) for low-risk pts. >8 (multiple)CT at 3-6 (unknown) (no (unknown) (unknown) months, then (units (u nknown) date) unknown) (unknown) (no (unknown) (unknown) most (units (unkno wn) date) unknown) (unknown) (no (unknown) (unknown) needed. (units (unkno wn) date) unknown) (unknown) (no (unknown) (unknown) nodules. (units (unkno wn) date) unknown) (unknown) (no (unknown) (unknown) normal in (units (unkn own) date) caliber. unknown) (unknown) (no (unknown) (unknown) normal in (units (unkn own) date) unknown) (unknown) (no (unknown) (unknown) optional CT at (units (unknown) date) 18-24 mo.CT at 3-6 unknown) months, then CT at 18-24 months. (unknown) (no (unknown) (unknown) optional CT at (units (unknown) date) 18-24 mo.CT at unknown) 6-12 months, then CT at 18-24 months. >8 (unknown) (no (unknown) (unknown) or hilar (units (unkno wn) date) unknown) (unknown) (no (unknown) (unknown) patent and (units (unk nown) date) unknown) (unknown) (no (unknown) (unknown) patient size. (units ( unknown) date) unknown) (unknown) (no (unknown) (unknown) patients with (units ( unknown) date) unknown) (unknown) (no (unknown) (unknown) patients. 6 mm or (units (unknown) date) larger. CT at 3-6 unknown) months. Subsequent management based on (unknown) (no (unknown) (unknown) performed, with (units (unknown) date) unknown) (unknown) (no (unknown) (unknown) persistence, (units (u nknown) date) unknown) (unknown) (no (unknown) (unknown) pleural effusions (units (unknown) date) or pneumothorax. unknown) Central and peripheral airways appear (unknown) (no (unknown) (unknown) recommendations. (units (unknown) date) unknown) (unknown) (no (unknown) (unknown) routine (units (unkno wn) date) unknown) (unknown) (no (unknown) (unknown) size. Esophagus (units (unknown) date) is normal in unknown) caliber. No hiatal hernia. (unknown) (no (unknown) (unknown) sub-solid (units (unkn own) date) nodules<6 mmCT at unknown) 3-6 months, then CT consider at 2 + 4 years for (unknown) (no (unknown) (unknown) suspicious (units (unk nown) date) lesions. unknown) Recommendations do not apply to lung cancer screening, (unknown) (no (unknown) (unknown) the (units (unkno wn) date) unknown) (unknown) (no (unknown) (unknown) then annual CT (units (unknown) date) until 5 years if unknown) unchanged and solid component remains <6 mm. (unknown) (no (unknown) (unknown) then (units (unkno wn) date) unknown) (unknown) (no (unknown) (unknown) unremarkable, (units ( unknown) date) without calcified unknown) stones . Biliary system is non dilated. (unknown) (no (unknown) (unknown) years until 5 (units ( unknown) date) years.6 mm or unknown) larger (part solid)CT at 3-6 months to confirm Result panel 555 (unknown) (no (unknown) (unknown) (no value) (units (unk nown) date) unknown) (unknown) (no (unknown) (unknown) 0.25 mg PO BID-TID (units (unknown) date) PRN (Reason: unknown) anxiety) Qty: 10 0RF (unknown) (no (unknown) (unknown) 03/05/22 10:32 (units (unknown) date) unknown) (unknown) (no (unknown) (unknown) 03/05/22 11:00 (units (unknown) date) unknown) (unknown) (no (unknown) (unknown) 03/05/22 (units (unkno wn) date) unknown) (unknown) (no (unknown) (unknown) 07/03/18 (units (unkno wn) date) unknown) (unknown) (no (unknown) (unknown) 1 patch TOP DAILY (units (unknown) date) Qty: 15 0RF unknown) (unknown) (no (unknown) (unknown) 1 puff INHALATION (units (unknown) date) Q6H PRN (Reason: unknown) Adequate Ventilation) (unknown) (no (unknown) (unknown) 1 tab PO Q4-6H PRN (units (unknown) date) (Reason: pain) Qty: unknown) 10 0RF (unknown) (no (unknown) (unknown) 1 tab PO Q4-6H PRN (units (unknown) date) (Reason: pain) Qty: unknown) 7 0RF (unknown) (no (unknown) (unknown) 10:20 (units (unkno wn) date) unknown) (unknown) (no (unknown) (unknown) 150 mg PO PRN PRN (units (unknown) date) (Reason: Acid unknown) Reflux) (unknown) (no (unknown) (unknown) 4 mg PO PRN PRN (units (unknown) date) (Reason: Nausea) unknown) Qty: 0 (unknown) (no (unknown) (unknown) 4 mg PO QID PRN (units (unknown) date) (Reason: nausea and unknown) vomiting) Qty: 14 2RF (unknown) (no (unknown) (unknown) 4 mg PO TID-QID (units (unknown) date) PRN (Reason: nausea unknown) and vomiting) Qty: 20 0RF (unknown) (no (unknown) (unknown) Age/Sex: 36 / F (units (unknown) date) unknown) (unknown) (no (unknown) (unknown) Allergies (units (unkn own) date) unknown) (unknown) (no (unknown) (unknown) Allergy/AdvReac (units (unknown) date) Type Severity unknown) Reaction Status Date / Time (unknown) (no (unknown) (unknown) Asthma (units (unkno wn) date) unknown) (unknown) (no (unknown) (unknown) Blood Culture Stat (units (unknown) date) unknown) (unknown) (no (unknown) (unknown) Blood Pressure (units (unknown) date) 11303/05/22 unknown) 10:20 (unknown) (no (unknown) (unknown) Blood Pressure (units (unknown) date) unknown) (unknown) (no (unknown) (unknown) CT chest abd pel w (units (unknown) date) con Stat unknown) (unknown) (no (unknown) (unknown) Chief Complaint: (units (unknown) date) Chest Pain unknown) (unknown) (no (unknown) (unknown) Complete Blood (units (unknown) date) Count AUTO DIFF unknown) Stat (unknown) (no (unknown) (unknown) Comprehensive (units ( unknown) date) Metabolic Panel unknown) Stat (unknown) (no (unknown) (unknown) Course (units (unkno wn) date) unknown) (unknown) (no (unknown) (unknown) Covid-19 + FLU A/B (units (unknown) date) + RSV - PCR Stat unknown) (unknown) (no (unknown) (unknown) : 1985 (units (unknown) date) Acct:[id number] unknown) (unknown) (no (unknown) (unknown) Date of Service: (units (unknown) date) 03/05/22 unknown) (unknown) (no (unknown) (unknown) Departure (units (unkn own) date) unknown) (unknown) (no (unknown) (unknown) Discharge Plan (units (unknown) date) unknown) (unknown) (no (unknown) (unknown) ED Orders (units (unkn own) date) unknown) (unknown) (no (unknown) (unknown) EKG-12 Lead Stat (units (unknown) date) unknown) (unknown) (no (unknown) (unknown) ER Physician: (units ( unknown) date) Danita Vila D.O. unknown) (unknown) (no (unknown) (unknown) Emergency Report (units (unknown) date) unknown) (unknown) (no (unknown) (unknown) Exam (units (unkno wn) date) unknown) (unknown) (no (unknown) (unknown) General (units (unkno wn) date) unknown) (unknown) (no (unknown) (unknown) H/O exploratory (units (unknown) date) laparotomy unknown) (unknown) (no (unknown) (unknown) H/O left knee (units ( unknown) date) surgery unknown) (unknown) (no (unknown) (unknown) HPI - Chest Pain (units (unknown) date) unknown) (unknown) (no (unknown) (unknown) History of open (units (unknown) date) heart surgery unknown) (unknown) (no (unknown) (unknown) History of surgery (units (unknown) date) unknown) (unknown) (no (unknown) (unknown) Home Medications (units (unknown) date) unknown) (unknown) (no (unknown) (unknown) Initial Vital (units ( unknown) date) Signs unknown) (unknown) (no (unknown) (unknown) Initial Vital (units ( unknown) date) Signs: unknown) (unknown) (no (unknown) (unknown) [facility] (units (unknown) date) [address] unknown) [place] [address] (unknown) (no (unknown) (unknown) Lactate (Lactic (units (unknown) date) Acid) Stat unknown) (unknown) (no (unknown) (unknown) Lipase Stat (units (un known) date) unknown) (unknown) (no (unknown) (unknown) [id number] (units (unk nown) date) unknown) (unknown) (no (unknown) (unknown) Magnesium Stat (units (unknown) date) unknown) (unknown) (no (unknown) (unknown) Medical History (units (unknown) date) (Updated 06/17/18 @ unknown) 00:00 by ) (unknown) (no (unknown) (unknown) Medication (units (unk nown) date) Instructions unknown) Recorded Confirmed (unknown) (no (unknown) (unknown) Medication (units (unk nown) date) Instructions unknown) Recorded (unknown) (no (unknown) (unknown) No Action (units (unkn own) date) unknown) (unknown) (no (unknown) (unknown) Ondansetron (units (un known) date) (Zofran Odt) 4 mg unknown) PO PRN PRN Nausea ##0 07/06/10 07/03/18 (unknown) (no (unknown) (unknown) Ondansetron (units (un known) date) (Zofran Odt) tablet unknown) (unknown) (no (unknown) (unknown) Ordered: (units (unkno wn) date) unknown) (unknown) (no (unknown) (unknown) Orders (units (unkno wn) date) unknown) (unknown) (no (unknown) (unknown) Oxygen Delivery (units (unknown) date) Method 03/05/22 unknown) 10:20 (unknown) (no (unknown) (unknown) Oxygen Delivery (units (unknown) date) Method Room Air unknown) (unknown) (no (unknown) (unknown) Partial (units (unkno wn) date) Thromboplastin Time unknown) Stat (unknown) (no (unknown) (unknown) Patient History (units (unknown) date) unknown) (unknown) (no (unknown) (unknown) Patient: (units (unkno wn) date) Carmina Castillo unknown) MR#: (unknown) (no (unknown) (unknown) Penicillins (units (un known) date) Allergy unknown) Intermediate Rash Verified 03/05/22 10:24 (unknown) (no (unknown) (unknown) Pertussis Vaccines (units (unknown) date) Allergy Unknown unknown) Seizure Verified 03/05/22 10:24 (unknown) (no (unknown) (unknown) Prescriptions: (units (unknown) date) unknown) (unknown) (no (unknown) (unknown) Previous Rx's (units ( unknown) date) unknown) (unknown) (no (unknown) (unknown) Procalcitonin Stat (units (unknown) date) unknown) (unknown) (no (unknown) (unknown) Prothrombin Time (units (unknown) date) INR Stat unknown) (unknown) (no (unknown) (unknown) Pulse Oximetry 100 (units (unknown) date) 03/05/22 10:20 unknown) (unknown) (no (unknown) (unknown) Pulse Oximetry 100 (units (unknown) date) unknown) (unknown) (no (unknown) (unknown) Pulse Rate 63 (units ( unknown) date) 03/05/22 10:20 unknown) (unknown) (no (unknown) (unknown) Pulse Rate 63 (units ( unknown) date) unknown) (unknown) (no (unknown) (unknown) Kitchen Aide (units (unkno wn) date) (ranitidine)) unknown) (unknown) (no (unknown) (unknown) Referrals: (units (unk nown) date) unknown) (unknown) (no (unknown) (unknown) Related Data (units (u nknown) date) unknown) (unknown) (no (unknown) (unknown) Respiratory Rate (units (unknown) date) 16 03/05/22 10:20 unknown) (unknown) (no (unknown) (unknown) Respiratory Rate (units (unknown) date) 16 unknown) (unknown) (no (unknown) (unknown) Rx Instructions: (units (unknown) date) unknown) (unknown) (no (unknown) (unknown) S/P laparoscopic (units (unknown) date) supracervical unknown) hysterectomy (04/04/18) (unknown) (no (unknown) (unknown) Daniel Ghosh DO (units (unknown) date) [Primary Care unknown) Provider] (unknown) (no (unknown) (unknown) Signed By: (units (unk nown) date) unknown) (unknown) (no (unknown) (unknown) Smoking Status: (units (unknown) date) Former smoker unknown) (unknown) (no (unknown) (unknown) Social History (units (unknown) date) (Reviewed 06/02/18 unknown) @ 21:47 by DENISE Cazares) (unknown) (no (unknown) (unknown) Stated Complaint: (units (unknown) date) pain in chest, unknown) sternum hurts, cough (unknown) (no (unknown) (unknown) Substance Use (units ( unknown) date) Type: marijuana unknown) (unknown) (no (unknown) (unknown) Surgical History (units (unknown) date) (Reviewed 06/02/18 unknown) @ 21:47 by YAS Cazares) (unknown) (no (unknown) (unknown) TSH [Thyroid (units (u nknown) date) Stimulating unknown) Hormone] Stat (unknown) (no (unknown) (unknown) Temperature 97 F L (units (unknown) date) 03/05/22 10:20 unknown) (unknown) (no (unknown) (unknown) Temperature 97 F L (units (unknown) date) unknown) (unknown) (no (unknown) (unknown) Time Seen by (units (u nknown) date) Provider: 03/05/22 unknown) 10:35 (unknown) (no (unknown) (unknown) Troponin + CK (units ( unknown) date) Cardiac Panel Stat unknown) (unknown) (no (unknown) (unknown) Upset (units (unkno wn) date) unknown) (unknown) (no (unknown) (unknown) Vital Signs - 8 hr (units (unknown) date) unknown) (unknown) (no (unknown) (unknown) Vital Signs (units (un known) date) unknown) (unknown) (no (unknown) (unknown) Vital signs: (units (u nknown) date) unknown) (unknown) (no (unknown) (unknown) XR chest 1V Stat (units (unknown) date) unknown) (unknown) (no (unknown) (unknown) [PERTUSSIS (units (unk nown) date) VACCINES] unknown) (unknown) (no (unknown) (unknown) aerosol inhaler (units (unknown) date) (ProAir HFA) unknown) Ventilation (unknown) (no (unknown) (unknown) albuterol sulfate (units (unknown) date) 90 mcg/actuation 1 unknown) puff inhalation Q6H PRN Adequate 11/14/17 (unknown) (no (unknown) (unknown) albuterol sulfate (units (unknown) date) [ProAir HFA] 90 unknown) mcg/actuation HFA aerosol inhaler (unknown) (no (unknown) (unknown) alcohol intake (units (unknown) date) frequency: 0-2 unknown) drinks per day (unknown) (no (unknown) (unknown) alprazolam 0.25 mg (units (unknown) date) tablet (Xanax) 0.25 unknown) mg PO BID-TID PRN anxiety #10 03/18/18 (unknown) (no (unknown) (unknown) alprazolam [Xanax] (units (unknown) date) 0.25 mg tablet unknown) (unknown) (no (unknown) (unknown) amoxicillin (units (un known) date) Allergy unknown) Intermediate Rash, Verified 03/05/22 10:24 (unknown) (no (unknown) (unknown) azithromycin (units (u nknown) date) Allergy unknown) Intermediate Gastrointestinal Verified 03/05/22 10:24 (unknown) (no (unknown) (unknown) ciprofloxacin (units ( unknown) date) Allergy unknown) Intermediate Gastrointestinal Verified 03/05/22 10:24 (unknown) (no (unknown) (unknown) gluten AdvReac (units (unknown) date) Mild Stomach unknown) Verified 03/05/22 10:24 (unknown) (no (unknown) (unknown) headache (units (unkno wn) date) unknown) (unknown) (no (unknown) (unknown) household members: (units (unknown) date) spouse and children unknown) (unknown) (no (unknown) (unknown) hydrocodone 5 (units ( unknown) date) mg-acetaminophen unknown) 325 1 tab PO Q4-6H PRN pain #10 tabs 05/19/18 (unknown) (no (unknown) (unknown) hydrocodone 5 (units ( unknown) date) mg-acetaminophen unknown) 325 1 tab PO Q4-6H PRN pain #7 tabs 06/02/18 (unknown) (no (unknown) (unknown) hydrocodone-acetam (units (unknown) date) inophen 5-325 mg unknown) tablet (unknown) (no (unknown) (unknown) hydromorphone (units ( unknown) date) Allergy Mild unknown) Flushing Verified 03/05/22 10:24 (unknown) (no (unknown) (unknown) ibuprofen Allergy (units (unknown) date) Mild Kidney unknown) Verified 03/05/22 10:24 (unknown) (no (unknown) (unknown) infection (units (unkn own) date) unknown) (unknown) (no (unknown) (unknown) leave on most (units ( unknown) date) painful area for 12 unknown) hrs (unknown) (no (unknown) (unknown) lidocaine 5 % (units ( unknown) date) adhesive unknown) patch,medicated (unknown) (no (unknown) (unknown) lidocaine 5 % (units ( unknown) date) topical patch 1 unknown) patch topical DAILY #15 ea 06/02/18 (unknown) (no (unknown) (unknown) mg tablet (units (unkn own) date) unknown) (unknown) (no (unknown) (unknown) nausea, (units (unkno wn) date) unknown) (unknown) (no (unknown) (unknown) nickel AdvReac (units (unknown) date) Mild Irritation/ unknown) Verified 03/05/22 10:24 (unknown) (no (unknown) (unknown) ondansetron 4 mg (units (unknown) date) disintegrating 4 mg unknown) PO QID PRN nausea and 04/05/18 (unknown) (no (unknown) (unknown) ondansetron 4 mg (units (unknown) date) disintegrating 4 mg unknown) PO TID-QID PRN nausea and 06/02/18 (unknown) (no (unknown) (unknown) ondansetron 4 mg (units (unknown) date) tablet,disintegrati unknown) ng (unknown) (no (unknown) (unknown) pain, (units (unkno wn) date) unknown) (unknown) (no (unknown) (unknown) ranitidine HCl 150 (units (unknown) date) mg tablet (Acid 150 unknown) mg PO PRN PRN Acid Reflux 04/05/18 (unknown) (no (unknown) (unknown) ranitidine HCl (units (unknown) date) [Acid Kitchen Aide unknown) (ranitidine)] 150 mg Tablet (unknown) (no (unknown) (unknown) redness (units (unkno wn) date) unknown) (unknown) (no (unknown) (unknown) tablet vomiting (units (unknown) date) #14 tabs unknown) (unknown) (no (unknown) (unknown) tablet vomiting (units (unknown) date) #20 tabs unknown) (unknown) (no (unknown) (unknown) tabs (units (unkno wn) date) unknown) (unknown) (no (unknown) (unknown) throat was (units (unk nown) date) unknown) (unknown) (no (unknown) (unknown) tingly (units (unkno wn) date) unknown) Result panel 556 (unknown) (no (unknown) (unknown) (no value) (units (unk nown) date) unknown) (unknown) (no (unknown) (unknown) 0.25 mg PO BID-TID (units (unknown) date) PRN (Reason: unknown) anxiety) Qty: 10 0RF (unknown) (no (unknown) (unknown) 03/05/22 10:32 (units (unknown) date) unknown) (unknown) (no (unknown) (unknown) 03/05/22 11:00 (units (unknown) date) unknown) (unknown) (no (unknown) (unknown) 03/05/22 (units (unkno wn) date) unknown) (unknown) (no (unknown) (unknown) 07/03/18 (units (unkno wn) date) unknown) (unknown) (no (unknown) (unknown) 1 patch TOP DAILY (units (unknown) date) Qty: 15 0RF unknown) (unknown) (no (unknown) (unknown) 1 puff INHALATION (units (unknown) date) Q6H PRN (Reason: unknown) Adequate Ventilation) (unknown) (no (unknown) (unknown) 1 tab PO Q4-6H PRN (units (unknown) date) (Reason: pain) Qty: unknown) 10 0RF (unknown) (no (unknown) (unknown) 1 tab PO Q4-6H PRN (units (unknown) date) (Reason: pain) Qty: unknown) 7 0RF (unknown) (no (unknown) (unknown) 10:20 (units (unkno wn) date) unknown) (unknown) (no (unknown) (unknown) 150 mg PO PRN PRN (units (unknown) date) (Reason: Acid unknown) Reflux) (unknown) (no (unknown) (unknown) 4 mg PO PRN PRN (units (unknown) date) (Reason: Nausea) unknown) Qty: 0 (unknown) (no (unknown) (unknown) 4 mg PO QID PRN (units (unknown) date) (Reason: nausea and unknown) vomiting) Qty: 14 2RF (unknown) (no (unknown) (unknown) 4 mg PO TID-QID (units (unknown) date) PRN (Reason: nausea unknown) and vomiting) Qty: 20 0RF (unknown) (no (unknown) (unknown) ABDOMEN: Soft, (units (unknown) date) nontender. unknown) Normoactive bowel sounds all 4 quadrants. No (unknown) (no (unknown) (unknown) Age/Sex: 36 / F (units (unknown) date) unknown) (unknown) (no (unknown) (unknown) Allergies (units (unkn own) date) unknown) (unknown) (no (unknown) (unknown) Allergy/AdvReac (units (unknown) date) Type Severity unknown) Reaction Status Date / Time (unknown) (no (unknown) (unknown) Asthma (units (unkno wn) date) unknown) (unknown) (no (unknown) (unknown) BREAST: Right (units ( unknown) date) breast 12:00 p.m. 1 unknown) cm lymph node like swelling painful to touch (unknown) (no (unknown) (unknown) Blood Culture Stat (units (unknown) date) unknown) (unknown) (no (unknown) (unknown) Blood Pressure (units (unknown) date) 113/71 03/05/22 unknown) 10:20 (unknown) (no (unknown) (unknown) Blood Pressure (units (unknown) date) 113/71 unknown) (unknown) (no (unknown) (unknown) CARDIOVASCULAR: (units (unknown) date) Regular rate and unknown) rhythm without murmurs, rubs or gallops. (unknown) (no (unknown) (unknown) CT chest abd pel w (units (unknown) date) con Stat unknown) (unknown) (no (unknown) (unknown) Chief Complaint: (units (unknown) date) Chest Pain unknown) (unknown) (no (unknown) (unknown) Complete Blood (units (unknown) date) Count AUTO DIFF unknown) Stat (unknown) (no (unknown) (unknown) Comprehensive (units ( unknown) date) Metabolic Panel unknown) Stat (unknown) (no (unknown) (unknown) Course (units (unkno wn) date) unknown) (unknown) (no (unknown) (unknown) Covid-19 + FLU A/B (units (unknown) date) + RSV - PCR Stat unknown) (unknown) (no (unknown) (unknown) : 1985 (units (unknown) date) Acct:[id number] unknown) (unknown) (no (unknown) (unknown) Date of Service: (units (unknown) date) 03/05/22 unknown) (unknown) (no (unknown) (unknown) Departure (units (unkn own) date) unknown) (unknown) (no (unknown) (unknown) Discharge Plan (units (unknown) date) unknown) (unknown) (no (unknown) (unknown) ED Orders (units (unkn own) date) unknown) (unknown) (no (unknown) (unknown) EKG-12 Lead Stat (units (unknown) date) unknown) (unknown) (no (unknown) (unknown) ER Physician: (units ( unknown) date) Danita Vial D.O. unknown) (unknown) (no (unknown) (unknown) EXTREMITIES: (units (u nknown) date) Normal range of unknown) motion, no clubbing or edema. Neurovascularly (unknown) (no (unknown) (unknown) Emergency Report (units (unknown) date) unknown) (unknown) (no (unknown) (unknown) Exam (units (unkno wn) date) unknown) (unknown) (no (unknown) (unknown) GENERAL: Thin (units ( unknown) date) 36-year-old female unknown) (unknown) (no (unknown) (unknown) General (units (unkno wn) date) unknown) (unknown) (no (unknown) (unknown) H/O exploratory (units (unknown) date) laparotomy unknown) (unknown) (no (unknown) (unknown) H/O left knee (units ( unknown) date) surgery unknown) (unknown) (no (unknown) (unknown) HEENT: Head (units (un known) date) atraumatic,EOMI, unknown) pupils reactive, face symmetric, no cervical lymph (unknown) (no (unknown) (unknown) HPI - Chest Pain (units (unknown) date) unknown) (unknown) (no (unknown) (unknown) HPI narrative: (units (unknown) date) unknown) (unknown) (no (unknown) (unknown) History of Present (units (unknown) date) Illness unknown) (unknown) (no (unknown) (unknown) History of open (units (unknown) date) heart surgery unknown) (unknown) (no (unknown) (unknown) History of surgery (units (unknown) date) unknown) (unknown) (no (unknown) (unknown) Home Medications (units (unknown) date) unknown) (unknown) (no (unknown) (unknown) Initial Vital (units ( unknown) date) Signs unknown) (unknown) (no (unknown) (unknown) Initial Vital (units ( unknown) date) Signs: unknown) (unknown) (no (unknown) (unknown) [facility] (units (unknown) date) [address] unknown) [place] [address] (unknown) (no (unknown) (unknown) Lactate (Lactic (units (unknown) date) Acid) Stat unknown) (unknown) (no (unknown) (unknown) Left breast 12:00 (units (unknown) date) p.m. 1 cm painful unknown) lymph node like swelling non erythematous (unknown) (no (unknown) (unknown) Lipase Stat (units (un known) date) unknown) (unknown) (no (unknown) (unknown) [id number] (units (unk nown) date) unknown) (unknown) (no (unknown) (unknown) Magnesium Stat (units (unknown) date) unknown) (unknown) (no (unknown) (unknown) Medical History (units (unknown) date) (Reviewed 03/05/22 unknown) @ 11:22 by Danita Vila DO) (unknown) (no (unknown) (unknown) Medication (units (unk nown) date) Instructions unknown) Recorded Confirmed (unknown) (no (unknown) (unknown) Medication (units (unk nown) date) Instructions unknown) Recorded (unknown) (no (unknown) (unknown) NEUROLOGICAL: (units ( unknown) date) Alert and oriented unknown) x4.Normal gait and speech. (unknown) (no (unknown) (unknown) No Action (units (unkn own) date) unknown) (unknown) (no (unknown) (unknown) Ondansetron (units (un known) date) (Zofran Odt) 4 mg unknown) PO PRN PRN Nausea ##0 07/06/10 07/03/18 (unknown) (no (unknown) (unknown) Ondansetron (units (un known) date) (Zofran Odt) tablet unknown) (unknown) (no (unknown) (unknown) Ordered: (units (unkno wn) date) unknown) (unknown) (no (unknown) (unknown) Orders (units (unkno wn) date) unknown) (unknown) (no (unknown) (unknown) Oxygen Delivery (units (unknown) date) Method 03/05/22 unknown) 10:20 (unknown) (no (unknown) (unknown) Oxygen Delivery (units (unknown) date) Method Room Air unknown) (unknown) (no (unknown) (unknown) Partial (units (unkno wn) date) Thromboplastin Time unknown) Stat (unknown) (no (unknown) (unknown) Patient History (units (unknown) date) unknown) (unknown) (no (unknown) (unknown) Patient is a (units (un known) date) healthy 36-year-old unknown) female who presents with a variety of symptoms. (unknown) (no (unknown) (unknown) Patient: (units (unkno wn) date) Carmina Castillo unknown) MR#: (unknown) (no (unknown) (unknown) Penicillins (units (un known) date) Allergy unknown) Intermediate Rash Verified 03/05/22 10:24 (unknown) (no (unknown) (unknown) Pertussis Vaccines (units (unknown) date) Allergy Unknown unknown) Seizure Verified 03/05/22 10:24 (unknown) (no (unknown) (unknown) Prescriptions: (units (unknown) date) unknown) (unknown) (no (unknown) (unknown) Previous Rx's (units ( unknown) date) unknown) (unknown) (no (unknown) (unknown) Procalcitonin Stat (units (unknown) date) unknown) (unknown) (no (unknown) (unknown) Prothrombin Time (units (unknown) date) INR Stat unknown) (unknown) (no (unknown) (unknown) Pulse Oximetry 100 (units (unknown) date) 03/05/22 10:20 unknown) (unknown) (no (unknown) (unknown) Pulse Oximetry 100 (units (unknown) date) unknown) (unknown) (no (unknown) (unknown) Pulse Rate 63 (units ( unknown) date) 03/05/22 10:20 unknown) (unknown) (no (unknown) (unknown) Pulse Rate 63 (units ( unknown) date) unknown) (unknown) (no (unknown) (unknown) RESPIRATORY: (units (u nknown) date) Breath sounds equal unknown) bilaterally, no wheezes rales or rhonchi. (unknown) (no (unknown) (unknown) ROS Unobtainable: (units (unknown) date) All systems unknown) reviewed + are unremarkable except as noted in HPI (unknown) (no (unknown) (unknown) Kitchen Aide (units (unkno wn) date) (ranitidine)) unknown) (unknown) (no (unknown) (unknown) Referrals: (units (unk nown) date) unknown) (unknown) (no (unknown) (unknown) Related Data (units (u nknown) date) unknown) (unknown) (no (unknown) (unknown) Respiratory Rate (units (unknown) date) 16 03/05/22 10:20 unknown) (unknown) (no (unknown) (unknown) Respiratory Rate (units (unknown) date) 16 unknown) (unknown) (no (unknown) (unknown) Review of Systems (units (unknown) date) unknown) (unknown) (no (unknown) (unknown) Rx Instructions: (units (unknown) date) unknown) (unknown) (no (unknown) (unknown) S/P laparoscopic (units (unknown) date) supracervical unknown) hysterectomy (04/04/18) (unknown) (no (unknown) (unknown) SKIN: Warm, dry, (units (unknown) date) no laceration, no unknown) petechiae, no rashes or lesions. (unknown) (no (unknown) (unknown) Daniel Ghosh DO (units (unknown) date) [Primary Care unknown) Provider] (unknown) (no (unknown) (unknown) She reports that (units (unknown) date) she is had about a unknown) 12 lb weight loss since . She (unknown) (no (unknown) (unknown) Signed By: (units (unk nown) date) unknown) (unknown) (no (unknown) (unknown) Smoking Status: (units (unknown) date) Former smoker unknown) (unknown) (no (unknown) (unknown) Social History (units (unknown) date) (Reviewed 03/05/22 unknown) @ 11:22 by Danita Vila DO) (unknown) (no (unknown) (unknown) Stated Complaint: (units (unknown) date) pain in chest, unknown) sternum hurts, cough (unknown) (no (unknown) (unknown) Substance Use (units ( unknown) date) Type: marijuana unknown) (unknown) (no (unknown) (unknown) Surgical History (units (unknown) date) (Reviewed 03/05/22 unknown) @ 11:22 by Danita Vila DO) (unknown) (no (unknown) (unknown) TSH [Thyroid (units (u nknown) date) Stimulating unknown) Hormone] Stat (unknown) (no (unknown) (unknown) Temperature 97 F L (units (unknown) date) 03/05/22 10:20 unknown) (unknown) (no (unknown) (unknown) Temperature 97 F L (units (unknown) date) unknown) (unknown) (no (unknown) (unknown) Time Seen by (units (u nknown) date) Provider: 03/05/22 unknown) 10:35 (unknown) (no (unknown) (unknown) Troponin + CK (units ( unknown) date) Cardiac Panel Stat unknown) (unknown) (no (unknown) (unknown) Upset (units (unkno wn) date) unknown) (unknown) (no (unknown) (unknown) Vital Signs - 8 hr (units (unknown) date) unknown) (unknown) (no (unknown) (unknown) Vital Signs (units (un known) date) unknown) (unknown) (no (unknown) (unknown) Vital signs: (units (u nknown) date) unknown) (unknown) (no (unknown) (unknown) XR chest 1V Stat (units (unknown) date) unknown) (unknown) (no (unknown) (unknown) [PERTUSSIS (units (unk nown) date) VACCINES] unknown) (unknown) (no (unknown) (unknown) aerosol inhaler (units (unknown) date) (ProAir HFA) unknown) Ventilation (unknown) (no (unknown) (unknown) albuterol sulfate (units (unknown) date) 90 mcg/actuation 1 unknown) puff inhalation Q6H PRN Adequate 11/14/17 (unknown) (no (unknown) (unknown) albuterol sulfate (units (unknown) date) [ProAir HFA] 90 unknown) mcg/actuation HFA aerosol inhaler (unknown) (no (unknown) (unknown) alcohol intake (units (unknown) date) frequency: 0-2 unknown) drinks per day (unknown) (no (unknown) (unknown) alprazolam 0.25 mg (units (unknown) date) tablet (Xanax) 0.25 unknown) mg PO BID-TID PRN anxiety #10 03/18/18 (unknown) (no (unknown) (unknown) alprazolam [Xanax] (units (unknown) date) 0.25 mg tablet unknown) (unknown) (no (unknown) (unknown) amoxicillin (units (un known) date) Allergy unknown) Intermediate Rash, Verified 03/05/22 10:24 (unknown) (no (unknown) (unknown) and below (units (unkn own) date) unknown) (unknown) (no (unknown) (unknown) axilla no (units (unkn own) date) abnormality unknown) (unknown) (no (unknown) (unknown) azithromycin (units (u nknown) date) Allergy unknown) Intermediate Gastrointestinal Verified 03/05/22 10:24 (unknown) (no (unknown) (unknown) bilaterally. There (units (unknown) date) painful to touch. unknown) She has had a sore throat little bit of a (unknown) (no (unknown) (unknown) ciprofloxacin (units ( unknown) date) Allergy unknown) Intermediate Gastrointestinal Verified 03/05/22 10:24 (unknown) (no (unknown) (unknown) cough. No (units (unkn own) date) abdominal pain unknown) nausea vomiting painful or frequent urination. No (unknown) (no (unknown) (unknown) gluten AdvReac (units (unknown) date) Mild Stomach unknown) Verified 03/05/22 10:24 (unknown) (no (unknown) (unknown) guarding or (units (un known) date) rebound. unknown) (unknown) (no (unknown) (unknown) has night sweats. (units (unknown) date) Kids have been sick unknown) off and on for couple of weeks. However (unknown) (no (unknown) (unknown) headache (units (unkno wn) date) unknown) (unknown) (no (unknown) (unknown) household members: (units (unknown) date) spouse and children unknown) (unknown) (no (unknown) (unknown) hydrocodone 5 (units ( unknown) date) mg-acetaminophen unknown) 325 1 tab PO Q4-6H PRN pain #10 tabs 05/19/18 (unknown) (no (unknown) (unknown) hydrocodone 5 (units ( unknown) date) mg-acetaminophen unknown) 325 1 tab PO Q4-6H PRN pain #7 tabs 06/02/18 (unknown) (no (unknown) (unknown) hydrocodone-acetam (units (unknown) date) inophen 5-325 mg unknown) tablet (unknown) (no (unknown) (unknown) hydromorphone (units ( unknown) date) Allergy Mild unknown) Flushing Verified 03/05/22 10:24 (unknown) (no (unknown) (unknown) ibuprofen Allergy (units (unknown) date) Mild Kidney unknown) Verified 03/05/22 10:24 (unknown) (no (unknown) (unknown) infection (units (unkn own) date) unknown) (unknown) (no (unknown) (unknown) intact (units (unkno wn) date) unknown) (unknown) (no (unknown) (unknown) last week she and (units (unknown) date) her both unknown) noticed some lumps in her breasts (unknown) (no (unknown) (unknown) leave on most (units ( unknown) date) painful area for 12 unknown) hrs (unknown) (no (unknown) (unknown) lidocaine 5 % (units ( unknown) date) adhesive unknown) patch,medicated (unknown) (no (unknown) (unknown) lidocaine 5 % (units ( unknown) date) topical patch 1 unknown) patch topical DAILY #15 ea 06/02/18 (unknown) (no (unknown) (unknown) mg tablet (units (unkn own) date) unknown) (unknown) (no (unknown) (unknown) nausea, (units (unkno wn) date) unknown) (unknown) (no (unknown) (unknown) nickel AdvReac (units (unknown) date) Mild Irritation/ unknown) Verified 03/05/22 10:24 (unknown) (no (unknown) (unknown) no erythema no (units (unknown) date) lymph nodes in unknown) axilla (unknown) (no (unknown) (unknown) node (units (unkno wn) date) unknown) (unknown) (no (unknown) (unknown) ondansetron 4 mg (units (unknown) date) disintegrating 4 mg unknown) PO QID PRN nausea and 04/05/18 (unknown) (no (unknown) (unknown) ondansetron 4 mg (units (unknown) date) disintegrating 4 mg unknown) PO TID-QID PRN nausea and 06/02/18 (unknown) (no (unknown) (unknown) ondansetron 4 mg (units (unknown) date) tablet,disintegrati unknown) ng (unknown) (no (unknown) (unknown) other pain. She is (units (unknown) date) not had a unknown) mammogram. No cancer history that she knows of (unknown) (no (unknown) (unknown) pain, (units (unkno wn) date) unknown) (unknown) (no (unknown) (unknown) ranitidine HCl 150 (units (unknown) date) mg tablet (Acid 150 unknown) mg PO PRN PRN Acid Reflux 04/05/18 (unknown) (no (unknown) (unknown) ranitidine HCl (units (unknown) date) [Acid Kitchen Aide unknown) (ranitidine)] 150 mg Tablet (unknown) (no (unknown) (unknown) redness (units (unkno wn) date) unknown) (unknown) (no (unknown) (unknown) tablet vomiting (units (unknown) date) #14 tabs unknown) (unknown) (no (unknown) (unknown) tablet vomiting (units (unknown) date) #20 tabs unknown) (unknown) (no (unknown) (unknown) tabs (units (unkno wn) date) unknown) (unknown) (no (unknown) (unknown) throat was (units (unk nown) date) unknown) (unknown) (no (unknown) (unknown) tingly (units (unkno wn) date) unknown) Result panel 557 (unknown) (no date) (unknown) (unknown) Flu A (units (unkn own) NEGATIVE unknown) (unknown) (no date) (unknown) (unknown) Flu B (units (unkn own) NEGATIVE unknown) (unknown) (no date) (unknown) (unknown) Negative (units (unkn own) unknown) (unknown) (no date) (unknown) (unknown) Negative (units (unkn own) unknown) Result panel 558 (unknown) (no date) (unknown) (unknown) 0.8 % (unkn own) (unknown) (no date) (unknown) (unknown) 100 /ul (unkn own) (unknown) (no date) (unknown) (unknown) 12.1 % (unkn own) (unknown) (no date) (unknown) (unknown) 12.2 g/dl (unkn own) (unknown) (no date) (unknown) (unknown) 1400 /ul (unkn own) (unknown) (no date) (unknown) (unknown) 2.5 % (unkn own) (unknown) (no date) (unknown) (unknown) 20.6 % (unkn own) (unknown) (no date) (unknown) (unknown) 200 /ul (unkn own) (unknown) (no date) (unknown) (unknown) 229 x10 3/ul (unkn own) (unknown) (no date) (unknown) (unknown) 3.94 x10 6/ul (unkn own) (unknown) (no date) (unknown) (unknown) 30.9 pg (unkn own) (unknown) (no date) (unknown) (unknown) 34.3 % (unkn own) (unknown) (no date) (unknown) (unknown) 35.5 % (unkn own) (unknown) (no date) (unknown) (unknown) 4500 /ul (unkn own) (unknown) (no date) (unknown) (unknown) 500 /ul (unkn own) (unknown) (no date) (unknown) (unknown) 6.6 x10 3/ul (unkn own) (unknown) (no date) (unknown) (unknown) 68.1 % (unkn own) (unknown) (no date) (unknown) (unknown) 8.0 % (unkn own) (unknown) (no date) (unknown) (unknown) 90.0 fl (unkn own) Result panel 559 (unknown) (no date) (unknown) (unknown) 1.0 (units unknown) (unknown) (unknown) (no date) (unknown) (unknown) 11.7 seconds (unkn own) (unknown) (no date) (unknown) (unknown) 28 seconds (unkn own) (unknown) (no date) (unknown) (unknown) 28 seconds (unkn own) Result panel 560 (unknown) (no date) (unknown) (unknown) > 60 ml/min (unkn own) (unknown) (no date) (unknown) (unknown) > 60 ml/min (unkn own) (unknown) (no date) (unknown) (unknown) 0.5 mg/dl (unkn own) (unknown) (no date) (unknown) (unknown) 0.68 mg/dl (unkn own) (unknown) (no date) (unknown) (unknown) 1.3 (units (unkn own) unknown) (unknown) (no date) (unknown) (unknown) 1.9 mg/dl (unkn own) (unknown) (no date) (unknown) (unknown) 104 mmol/l (unkn own) (unknown) (no date) (unknown) (unknown) 11 mg/dl (unkn own) (unknown) (no date) (unknown) (unknown) 139 mmol/l (unkn own) (unknown) (no date) (unknown) (unknown) 16.2 (units (unkn own) unknown) (unknown) (no date) (unknown) (unknown) 18 iu/l (unkn own) (unknown) (no date) (unknown) (unknown) 187 u/l (unkn own) (unknown) (no date) (unknown) (unknown) 28 iu/l (unkn own) (unknown) (no date) (unknown) (unknown) 29 mmol/l (unkn own) (unknown) (no date) (unknown) (unknown) 3.3 g/dl (unkn own) (unknown) (no date) (unknown) (unknown) 4.0 mmol/l (unkn own) (unknown) (no date) (unknown) (unknown) 4.4 g/dl (unkn own) (unknown) (no date) (unknown) (unknown) 47 u/l (unkn own) (unknown) (no date) (unknown) (unknown) 7.7 g/dl (unkn own) (unknown) (no date) (unknown) (unknown) 87 mg/dl (unkn own) (unknown) (no date) (unknown) (unknown) 87 mg/dl (unkn own) (unknown) (no date) (unknown) (unknown) 88 u/l (unkn own) (unknown) (no date) (unknown) (unknown) 9.2 mg/dl (unkn own) (unknown) (no date) (unknown) (unknown) Test not % (unkn own) performed (unknown) (no date) (unknown) (unknown) Test not % (unkn own) performed (unknown) (no date) (unknown) (unknown) Test not ng/ml (unkn own) performed (unknown) (no date) (unknown) (unknown) Test not ng/ml (unkn own) performed Result panel 561 (unknown) (no date) (unknown) (unknown) 0.9 mmol/l (unkn own) Result panel 562 (unknown) (no date) (unknown) (unknown) > 60 ml/min (unkn own) (unknown) (no date) (unknown) (unknown) > 60 ml/min (unkn own) (unknown) (no date) (unknown) (unknown) 0.015 ng/ml (unkn own) (unknown) (no date) (unknown) (unknown) 0.015 ng/ml (unkn own) (unknown) (no date) (unknown) (unknown) 0.5 mg/dl (unkn own) (unknown) (no date) (unknown) (unknown) 0.68 mg/dl (unkn own) (unknown) (no date) (unknown) (unknown) 1.3 (units (unkn own) unknown) (unknown) (no date) (unknown) (unknown) 1.9 mg/dl (unkn own) (unknown) (no date) (unknown) (unknown) 104 mmol/l (unkn own) (unknown) (no date) (unknown) (unknown) 11 mg/dl (unkn own) (unknown) (no date) (unknown) (unknown) 139 mmol/l (unkn own) (unknown) (no date) (unknown) (unknown) 16.2 (units (unkn own) unknown) (unknown) (no date) (unknown) (unknown) 18 iu/l (unkn own) (unknown) (no date) (unknown) (unknown) 187 u/l (unkn own) (unknown) (no date) (unknown) (unknown) 28 iu/l (unkn own) (unknown) (no date) (unknown) (unknown) 29 mmol/l (unkn own) (unknown) (no date) (unknown) (unknown) 3.3 g/dl (unkn own) (unknown) (no date) (unknown) (unknown) 4.0 mmol/l (unkn own) (unknown) (no date) (unknown) (unknown) 4.4 g/dl (unkn own) (unknown) (no date) (unknown) (unknown) 47 u/l (unkn own) (unknown) (no date) (unknown) (unknown) 7.7 g/dl (unkn own) (unknown) (no date) (unknown) (unknown) 87 mg/dl (unkn own) (unknown) (no date) (unknown) (unknown) 87 mg/dl (unkn own) (unknown) (no date) (unknown) (unknown) 88 u/l (unkn own) (unknown) (no date) (unknown) (unknown) 9.2 mg/dl (unkn own) (unknown) (no date) (unknown) (unknown) Test not % (unkn own) performed (unknown) (no date) (unknown) (unknown) Test not % (unkn own) performed (unknown) (no date) (unknown) (unknown) Test not ng/ml (unkn own) performed (unknown) (no date) (unknown) (unknown) Test not ng/ml (unkn own) performed Result panel 563 (unknown) (no date) (unknown) (unknown) 0.04 ng/ml (unkn own) (unknown) (no date) (unknown) (unknown) 0.04 ng/ml (unkn own) Result panel 564 (unknown) (no date) (unknown) (unknown) 0.894 uiu/ml (unkn own) Result panel 565 (unknown) (no (unknown) (unknown) (no value) (units (unk nown) date) unknown) (unknown) (no (unknown) (unknown) (single)CT at 3 (units (unknown) date) unknown) (unknown) (no (unknown) (unknown) * Clinical (units (unk nown) date) Decision unknown) Rules/Scores evaluated: [ ] (unknown) (no (unknown) (unknown) * Independent (units ( unknown) date) discussions with: [ unknown) ] (unknown) (no (unknown) (unknown) * My imaging (units (u nknown) date) interpretation: [ ] unknown) (unknown) (no (unknown) (unknown) * My lab (units (unkno wn) date) interpretation: [ ] unknown) (unknown) (no (unknown) (unknown) * Prior records (units (unknown) date) reviewed: unknown) (unknown) (no (unknown) (unknown) * Shared Decision (units (unknown) date) Making: [ ] unknown) (unknown) (no (unknown) (unknown) * Social (units (unkno wn) date) Considerations: [ ] unknown) (unknown) (no (unknown) (unknown) * differential (units (unknown) date) diagnosis includes unknown) but not limited to: Cancer infection (unknown) (no (unknown) (unknown) *Disposition: see (units (unknown) date) below, along with unknown) detailed discharge instructions that have (unknown) (no (unknown) (unknown) 0.25 mg PO BID-TID (units (unknown) date) PRN (Reason: unknown) anxiety) Qty: 10 0RF (unknown) (no (unknown) (unknown) 03/05/22 03/05/22 (units (unknown) date) 03/05/22 unknown) Range/Units (unknown) (no (unknown) (unknown) 03/05/22 10:32 (units (unknown) date) unknown) (unknown) (no (unknown) (unknown) 03/05/22 11:00 (units (unknown) date) unknown) (unknown) (no (unknown) (unknown) 03/05/22 11:44 (units (unknown) date) unknown) (unknown) (no (unknown) (unknown) 03/05/22 13:25 (units (unknown) date) unknown) (unknown) (no (unknown) (unknown) 03/05/22 (units (unkno wn) date) Range/Units unknown) (unknown) (no (unknown) (unknown) 03/05/22 (units (unkno wn) date) unknown) (unknown) (no (unknown) (unknown) 07/03/18 (units (unkno wn) date) unknown) (unknown) (no (unknown) (unknown) 1 patch TOP DAILY (units (unknown) date) Qty: 15 0RF unknown) (unknown) (no (unknown) (unknown) 1 puff INHALATION (units (unknown) date) Q6H PRN (Reason: unknown) Adequate Ventilation) (unknown) (no (unknown) (unknown) 1 tab PO Q4-6H PRN (units (unknown) date) (Reason: pain) Qty: unknown) 10 0RF (unknown) (no (unknown) (unknown) 1 tab PO Q4-6H PRN (units (unknown) date) (Reason: pain) Qty: unknown) 7 0RF (unknown) (no (unknown) (unknown) 1. No evidence of (units (unknown) date) acute process in unknown) the chest, abdomen, and pelvis. (unknown) (no (unknown) (unknown) 10:20 (units (unkno wn) date) unknown) (unknown) (no (unknown) (unknown) 11:00 11:44 11:44 (units (unknown) date) unknown) (unknown) (no (unknown) (unknown) 11:44 11:44 11:44 (units (unknown) date) unknown) (unknown) (no (unknown) (unknown) 11:44 (units (unkno wn) date) unknown) (unknown) (no (unknown) (unknown) 150 mg PO PRN PRN (units (unknown) date) (Reason: Acid unknown) Reflux) (unknown) (no (unknown) (unknown) 2. Multiple (units (un known) date) pulmonary nodules, unknown) all 3 mm or less.? Please see chart below for (unknown) (no (unknown) (unknown) 4 mg PO PRN PRN (units (unknown) date) (Reason: Nausea) unknown) Qty: 0 (unknown) (no (unknown) (unknown) 4 mg PO QID PRN (units (unknown) date) (Reason: nausea and unknown) vomiting) Qty: 14 2RF (unknown) (no (unknown) (unknown) 4 mg PO TID-QID (units (unknown) date) PRN (Reason: nausea unknown) and vomiting) Qty: 20 0RF (unknown) (no (unknown) (unknown) 6 mm or larger (units (unknown) date) (ground glass)CT at unknown) 6-12 months to confirm persistence, then CT (unknown) (no (unknown) (unknown) ? (units (unkno wn) date) unknown) (unknown) (no (unknown) (unknown) ABDOMEN: Soft, (units (unknown) date) nontender. unknown) Normoactive bowel sounds all 4 quadrants. No (unknown) (no (unknown) (unknown) ABDOMEN:? (units (unkn own) date) unknown) (unknown) (no (unknown) (unknown) ALT (<35) IU/L (units (unknown) date) unknown) (unknown) (no (unknown) (unknown) ALT 18 (<35) IU/L (units (unknown) date) unknown) (unknown) (no (unknown) (unknown) APTT (26-36) (units (u nknown) date) SECONDS unknown) (unknown) (no (unknown) (unknown) APTT 28 (26-36) (units (unknown) date) SECONDS unknown) (unknown) (no (unknown) (unknown) AST (14-36) IU/L (units (unknown) date) unknown) (unknown) (no (unknown) (unknown) AST 28 (14-36) (units (unknown) date) IU/L unknown) (unknown) (no (unknown) (unknown) Accession Number: (units (unknown) date) [id number] ?? unknown) (unknown) (no (unknown) (unknown) Accession Number: (units (unknown) date) [id number] ?? unknown) (unknown) (no (unknown) (unknown) Acct:[id number] (units (unknown) date) unknown) (unknown) (no (unknown) (unknown) After the (units (unkn own) date) administration of unknown) intravenous contrast, 5 mm thick sections acquired (unknown) (no (unknown) (unknown) Age/Sex: 36 / F (units (unknown) date) unknown) (unknown) (no (unknown) (unknown) Albumin (3.5-5.0) (units (unknown) date) g/dL unknown) (unknown) (no (unknown) (unknown) Albumin 4.4 (units (un known) date) (3.5-5.0) g/dL unknown) (unknown) (no (unknown) (unknown) Albumin/Globulin (units (unknown) date) Ratio (1.0-2.8) unknown) (unknown) (no (unknown) (unknown) Albumin/Globulin (units (unknown) date) Ratio 1.3 (1.0-2.8) unknown) (unknown) (no (unknown) (unknown) Alkaline (units (unkno wn) date) Phosphatase unknown) (38-126) U/L (unknown) (no (unknown) (unknown) Alkaline (units (unkno wn) date) Phosphatase 47 unknown) (38-126) U/L (unknown) (no (unknown) (unknown) Allergies (units (unkn own) date) unknown) (unknown) (no (unknown) (unknown) Allergy/AdvReac (units (unknown) date) Type Severity unknown) Reaction Status Date / Time (unknown) (no (unknown) (unknown) Asthma (units (unkno wn) date) unknown) (unknown) (no (unknown) (unknown) BREAST: Right (units ( unknown) date) breast 12:00 p.m. 1 unknown) cm lymph node like swelling painful to touch (unknown) (no (unknown) (unknown) BUN (7-17) mg/dL (units (unknown) date) unknown) (unknown) (no (unknown) (unknown) BUN 11 (7-17) (units ( unknown) date) mg/dL unknown) (unknown) (no (unknown) (unknown) BUN/Creatinine (units (unknown) date) Ratio (6-22) unknown) (unknown) (no (unknown) (unknown) BUN/Creatinine (units (unknown) date) Ratio 16.2 (6-22) unknown) (unknown) (no (unknown) (unknown) Baso # (Auto) (units ( unknown) date) (0-100) /uL unknown) (unknown) (no (unknown) (unknown) Baso # (Auto) 100 (units (unknown) date) (0-100) /uL unknown) (unknown) (no (unknown) (unknown) Baso % (Auto) (units ( unknown) date) (0-2) % unknown) (unknown) (no (unknown) (unknown) Baso % (Auto) 0.8 (units (unknown) date) (0-2) % unknown) (unknown) (no (unknown) (unknown) Blood Culture Stat (units (unknown) date) unknown) (unknown) (no (unknown) (unknown) Blood Pressure (units (unknown) date) 113/71 03/05/22 unknown) 10:20 (unknown) (no (unknown) (unknown) Blood Pressure (units (unknown) date) 113/71 unknown) (unknown) (no (unknown) (unknown) Bones and chest (units (unknown) date) wall:? No unknown) suspicious bony lesions.? Overlying soft tissues (unknown) (no (unknown) (unknown) Bones:? No (units (unk nown) date) suspicious bony unknown) lesions.? No vertebral body compression fractures.? (unknown) (no (unknown) (unknown) CARDIOVASCULAR: (units (unknown) date) Regular rate and unknown) rhythm without murmurs, rubs or gallops. (unknown) (no (unknown) (unknown) CHEST:? (units (unkno wn) date) unknown) (unknown) (no (unknown) (unknown) CK-MB (CK-2) Rel (units (unknown) date) Index TNP unknown) (unknown) (no (unknown) (unknown) CK-MB (CK-2) Rel (units (unknown) date) Index unknown) (unknown) (no (unknown) (unknown) CK-MB (CK-2) TNP (units (unknown) date) unknown) (unknown) (no (unknown) (unknown) CK-MB (CK-2) (units (u nknown) date) unknown) (unknown) (no (unknown) (unknown) COMPARISON:? (units (u nknown) date) [facility], unknown) CR, CHEST 2 VIEW, 12/16/2008, 21:11. (unknown) (no (unknown) (unknown) COMPARISON:? None. (units (unknown) date) unknown) (unknown) (no (unknown) (unknown) CT Scan Report (units (unknown) date) unknown) (unknown) (no (unknown) (unknown) CT chest abd pel w (units (unknown) date) con Stat unknown) (unknown) (no (unknown) (unknown) CT scan - chest: (units (unknown) date) unknown) (unknown) (no (unknown) (unknown) Calcium (8.4-10.2) (units (unknown) date) mg/dL unknown) (unknown) (no (unknown) (unknown) Calcium 9.2 (units (un known) date) (8.4-10.2) mg/dL unknown) (unknown) (no (unknown) (unknown) Carbon Dioxide (units (unknown) date) (22-32) mmol/L unknown) (unknown) (no (unknown) (unknown) Carbon Dioxide 29 (units (unknown) date) (22-32) mmol/L unknown) (unknown) (no (unknown) (unknown) Chest wall:? No (units (unknown) date) axillary or unknown) supraclavicular adenopathy by size criteria.? (unknown) (no (unknown) (unknown) Chest x-ray: (units (u nknown) date) unknown) (unknown) (no (unknown) (unknown) Chief Complaint: (units (unknown) date) Chest Pain unknown) (unknown) (no (unknown) (unknown) Chloride (98-107) (units (unknown) date) mmol/L unknown) (unknown) (no (unknown) (unknown) Chloride 104 (units (u nknown) date) (98-107) mmol/L unknown) (unknown) (no (unknown) (unknown) Complete Blood (units (unknown) date) Count AUTO DIFF unknown) Stat (unknown) (no (unknown) (unknown) Comprehensive (units ( unknown) date) Metabolic Panel unknown) Stat (unknown) (no (unknown) (unknown) Consult to [employer] - (units (unknown) date) 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 unknown) Stat (unknown) (no (unknown) (unknown) Course (units (unkno wn) date) unknown) (unknown) (no (unknown) (unknown) Covid-19 + FLU A/B (units (unknown) date) + RSV - PCR Stat unknown) (unknown) (no (unknown) (unknown) Creatinine (units (unk nown) date) (0.52-1.04) mg/dL unknown) (unknown) (no (unknown) (unknown) Creatinine 0.68 (units (unknown) date) (0.52-1.04) mg/dL unknown) (unknown) (no (unknown) (unknown) : 1985 (units (unknown) date) Acct:[id number] unknown) (unknown) (no (unknown) (unknown) : 1985 (units (unknown) date) unknown) (unknown) (no (unknown) (unknown) Date of Service: (units (unknown) date) 03/05/22 unknown) (unknown) (no (unknown) (unknown) Departure (units (unkn own) date) unknown) (unknown) (no (unknown) (unknown) Dictated by: (units (u nknown) date) Errol Lennon, unknown) M.Mitzy on 03/05/2022 at 10:54 ? (unknown) (no (unknown) (unknown) Dictated by: (units (u nknown) date) Errol Lennon, unknown) MChanning on 03/05/2022 at 12:54 ? ? (unknown) (no (unknown) (unknown) Discharge Plan (units (unknown) date) unknown) (unknown) (no (unknown) (unknown) ECG Data (units (unkno wn) date) unknown) (unknown) (no (unknown) (unknown) ED Orders (units (unkn own) date) unknown) (unknown) (no (unknown) (unknown) EKG-12 Lead Stat (units (unknown) date) unknown) (unknown) (no (unknown) (unknown) ER Physician: (units ( unknown) date) Danita Vila D.O. unknown) (unknown) (no (unknown) (unknown) EXTREMITIES: (units (u nknown) date) Normal range of unknown) motion, no clubbing or edema. Neurovascularly (unknown) (no (unknown) (unknown) Emergency Report (units (unknown) date) unknown) (unknown) (no (unknown) (unknown) Eos # (Auto) (units (u nknown) date) (0-450) /uL unknown) (unknown) (no (unknown) (unknown) Eos # (Auto) 200 (units (unknown) date) (0-450) /uL unknown) (unknown) (no (unknown) (unknown) Eos % (Auto) (2-4) (units (unknown) date) % unknown) (unknown) (no (unknown) (unknown) Eos % (Auto) 2.5 (units (unknown) date) (2-4) % unknown) (unknown) (no (unknown) (unknown) Estimated GFR > 60 (units (unknown) date) (>60) mL/min unknown) (unknown) (no (unknown) (unknown) Estimated GFR (units ( unknown) date) (>60) mL/min unknown) (unknown) (no (unknown) (unknown) Exam (units (unkno wn) date) unknown) (unknown) (no (unknown) (unknown) FINDINGS:? (units (unk nown) date) unknown) (unknown) (no (unknown) (unknown) Fleischner Society (units (unknown) date) criteria for SOLID unknown) lung nodule followup.? (unknown) (no (unknown) (unknown) Fleischner Society (units (unknown) date) criteria for unknown) SUB-SOLID lung nodule followup.? (unknown) (no (unknown) (unknown) GENERAL: Thin (units ( unknown) date) 36-year-old female unknown) (unknown) (no (unknown) (unknown) General (units (unkno wn) date) unknown) (unknown) (no (unknown) (unknown) Genitourinary:? (units (unknown) date) Bladder wall unknown) thickness is normal.? (unknown) (no (unknown) (unknown) Globulin (1.7-4.1) (units (unknown) date) g/dL unknown) (unknown) (no (unknown) (unknown) Globulin 3.3 (units (u nknown) date) (1.7-4.1) g/dL unknown) (unknown) (no (unknown) (unknown) Glucose (70-100) (units (unknown) date) mg/dL unknown) (unknown) (no (unknown) (unknown) Glucose 87 (units (unk nown) date) (70-100) mg/dL unknown) (unknown) (no (unknown) (unknown) H/O exploratory (units (unknown) date) laparotomy unknown) (unknown) (no (unknown) (unknown) H/O left knee (units ( unknown) date) surgery unknown) (unknown) (no (unknown) (unknown) HEENT: Head (units (un known) date) atraumatic,EOMI, unknown) pupils reactive, face symmetric, no cervical lymph (unknown) (no (unknown) (unknown) HPI - Chest Pain (units (unknown) date) unknown) (unknown) (no (unknown) (unknown) HPI narrative: (units (unknown) date) unknown) (unknown) (no (unknown) (unknown) Hct (36-46) % (units ( unknown) date) unknown) (unknown) (no (unknown) (unknown) Hct 35.5 L (36-46) (units (unknown) date) % unknown) (unknown) (no (unknown) (unknown) Hgb (12.0-16.0) (units (unknown) date) g/dL unknown) (unknown) (no (unknown) (unknown) Hgb 12.2 (units (unkno wn) date) (12.0-16.0) g/dL unknown) (unknown) (no (unknown) (unknown) History of Present (units (unknown) date) Illness unknown) (unknown) (no (unknown) (unknown) History of open (units (unknown) date) heart surgery unknown) (unknown) (no (unknown) (unknown) History of surgery (units (unknown) date) unknown) (unknown) (no (unknown) (unknown) Home Medications (units (unknown) date) unknown) (unknown) (no (unknown) (unknown) IMPRESSION:? No (units (unknown) date) evidence acute unknown) pulmonary process. (unknown) (no (unknown) (unknown) IMPRESSION:? (units (u nknown) date) unknown) (unknown) (no (unknown) (unknown) INDICATIONS:? (units ( unknown) date) chest pain unknown) (unknown) (no (unknown) (unknown) INDICATIONS:? (units ( unknown) date) weight loss, night unknown) sweats, bilateral breast lymphnodes (unknown) (no (unknown) (unknown) INR (0.9-1.3) (units ( unknown) date) unknown) (unknown) (no (unknown) (unknown) INR 1.0 (0.9-1.3) (units (unknown) date) unknown) (unknown) (no (unknown) (unknown) Image quality:? (units (unknown) date) Excellent.? unknown) (unknown) (no (unknown) (unknown) Imaging Data (units (u nknown) date) unknown) (unknown) (no (unknown) (unknown) Influenza A (units (un known) date) (RT-PCR) (NEGATIVE) unknown) (unknown) (no (unknown) (unknown) Influenza A (units (un known) date) (RT-PCR) Flu a unknown) negative (NEGATIVE) (unknown) (no (unknown) (unknown) Influenza B (units (un known) date) (RT-PCR) (NEGATIVE) unknown) (unknown) (no (unknown) (unknown) Influenza B (units (un known) date) (RT-PCR) Flu b unknown) negative (NEGATIVE) (unknown) (no (unknown) (unknown) Initial Vital (units ( unknown) date) Signs unknown) (unknown) (no (unknown) (unknown) Initial Vital (units ( unknown) date) Signs: unknown) (unknown) (no (unknown) (unknown) Interpretation: (units (unknown) date) unknown) (unknown) (no (unknown) (unknown) [facility] (units (unknown) date) [address] [place] [address] unknown) [place] [address] (unknown) (no (unknown) (unknown) Kidneys (units (unkno wn) date) demonstrate normal unknown) size and enhancement, without hydronephrosis.? (unknown) (no (unknown) (unknown) Lab Data (units (unkno wn) date) unknown) (unknown) (no (unknown) (unknown) Lab Results (units (un known) date) unknown) (unknown) (no (unknown) (unknown) Labs: (units (unkno wn) date) unknown) (unknown) (no (unknown) (unknown) Lactate (0.7-2.1) (units (unknown) date) mmol/L unknown) (unknown) (no (unknown) (unknown) Lactate (Lactic (units (unknown) date) Acid) Stat unknown) (unknown) (no (unknown) (unknown) Lactate 0.9 (units (un known) date) (0.7-2.1) mmol/L unknown) (unknown) (no (unknown) (unknown) Left breast 12:00 (units (unknown) date) p.m. 1 cm painful unknown) lymph node like swelling non erythematous (unknown) (no (unknown) (unknown) Lipase (23-300) (units (unknown) date) U/L unknown) (unknown) (no (unknown) (unknown) Lipase 187 (units (unk nown) date) (23-300) U/L unknown) (unknown) (no (unknown) (unknown) Lipase Stat (units (un known) date) unknown) (unknown) (no (unknown) (unknown) Loc: ED (units (unkno wn) date) unknown) (unknown) (no (unknown) (unknown) Lungs and pleura:? (units (unknown) date) Lungs are clear.? unknown) No pleural effusions or pneumothorax.? (unknown) (no (unknown) (unknown) Lungs and pleura:? (units (unknown) date) No acute airspace unknown) opacities.? There are 3 probable small (unknown) (no (unknown) (unknown) Lymph # (Auto) (units (unknown) date) (3967-1810) /uL unknown) (unknown) (no (unknown) (unknown) Lymph # (Auto) (units (unknown) date) 1400 (3349-5545) unknown) /uL (unknown) (no (unknown) (unknown) Lymph % (Auto) (units (unknown) date) (25-40) % unknown) (unknown) (no (unknown) (unknown) Lymph % (Auto) (units (unknown) date) 20.6 L (25-40) % unknown) (unknown) (no (unknown) (unknown) [id number] (units (unk nown) date) unknown) (unknown) (no (unknown) (unknown) MCH (26-34) PG (units (unknown) date) unknown) (unknown) (no (unknown) (unknown) MCH 30.9 (26-34) (units (unknown) date) PG unknown) (unknown) (no (unknown) (unknown) MCHC (30-36) % (units (unknown) date) unknown) (unknown) (no (unknown) (unknown) MCHC 34.3 (30-36) (units (unknown) date) % unknown) (unknown) (no (unknown) (unknown) MCV (80-100) fL (units (unknown) date) unknown) (unknown) (no (unknown) (unknown) MCV 90.0 (80-100) (units (unknown) date) fL unknown) (unknown) (no (unknown) (unknown) MDM - Chest Pain (units (unknown) date) unknown) (unknown) (no (unknown) (unknown) MDM Narrative (units ( unknown) date) unknown) (unknown) (no (unknown) (unknown) MDM (units (unkno wn) date) unknown) (unknown) (no (unknown) (unknown) MR#: [id number] (units (unknown) date) unknown) (unknown) (no (unknown) (unknown) Magnesium (units (unkn own) date) (1.6-2.3) mg/dL unknown) (unknown) (no (unknown) (unknown) Magnesium 1.9 (units ( unknown) date) (1.6-2.3) mg/dL unknown) (unknown) (no (unknown) (unknown) Magnesium Stat (units (unknown) date) unknown) (unknown) (no (unknown) (unknown) Mediastinum:? Heart (units (unknown) date) size is normal.? No unknown) pericardial effusion.? No mediastinal or (unknown) (no (unknown) (unknown) Mediastinum:? (units ( unknown) date) Mediastinal unknown) contours appear normal.? Heart size is normal.? (unknown) (no (unknown) (unknown) Medical History (units (unknown) date) (Reviewed 03/05/22 unknown) @ 11:22 by Danita Vila DO) (unknown) (no (unknown) (unknown) Medical decision (units (unknown) date) making narrative: unknown) (unknown) (no (unknown) (unknown) Medication (units (unk nown) date) Instructions unknown) Recorded Confirmed (unknown) (no (unknown) (unknown) Medication (units (unk nown) date) Instructions unknown) Recorded (unknown) (no (unknown) (unknown) Miscellaneous:? No (units (unknown) date) inguinal hernias or unknown) adenopathy.? Retroverted uterus. (unknown) (no (unknown) (unknown) Miscellaneous:? No (units (unknown) date) ventral hernias.? unknown) (unknown) (no (unknown) (unknown) [place] # (Auto) (units ( unknown) date) (0-900) /uL unknown) (unknown) (no (unknown) (unknown) [place] # (Auto) 500 (units (unknown) date) (0-900) /uL unknown) (unknown) (no (unknown) (unknown) [place] % (Auto) (units ( unknown) date) (3-14) % unknown) (unknown) (no (unknown) (unknown) [place] % (Auto) 8.0 (units (unknown) date) (3-14) % unknown) (unknown) (no (unknown) (unknown) Multiple (units (unkno wn) date) unknown) (unknown) (no (unknown) (unknown) NEUROLOGICAL: (units ( unknown) date) Alert and oriented unknown) x4.Normal gait and speech. (unknown) (no (unknown) (unknown) Neut # (Auto) (units ( unknown) date) (2615-1411) /uL unknown) (unknown) (no (unknown) (unknown) Neut # (Auto) 4500 (units (unknown) date) (7452-0106) /uL unknown) (unknown) (no (unknown) (unknown) Neut % (Auto) (units ( unknown) date) (50-75) % unknown) (unknown) (no (unknown) (unknown) Neut % (Auto) 68.1 (units (unknown) date) (50-75) % unknown) (unknown) (no (unknown) (unknown) No Action (units (unkn own) date) unknown) (unknown) (no (unknown) (unknown) No (units (unkno wn) date) unknown) (unknown) (no (unknown) (unknown) Nodes and (units (unkn own) date) vessels:? No unknown) retroperitoneal or mesenteric adenopathy by size (unknown) (no (unknown) (unknown) Nodule size (units (un known) date) (mm)Low-risk unknown) patientHigh-risk patient<6 (single or multiple)No (unknown) (no (unknown) (unknown) Ondansetron (units (un known) date) (Zofran Odt) 4 mg unknown) PO PRN PRN Nausea ##0 07/06/10 07/03/18 (unknown) (no (unknown) (unknown) Ondansetron (units (un known) date) (Zofran Odt) tablet unknown) (unknown) (no (unknown) (unknown) Ordered: (units (unkno wn) date) unknown) (unknown) (no (unknown) (unknown) Ordering Provider: (units (unknown) date) Danita Vila D.O. unknown) (unknown) (no (unknown) (unknown) Orders (units (unkno wn) date) unknown) (unknown) (no (unknown) (unknown) Oxygen Delivery (units (unknown) date) Method 03/05/22 unknown) 10:20 (unknown) (no (unknown) (unknown) Oxygen Delivery (units (unknown) date) Method Room Air unknown) (unknown) (no (unknown) (unknown) PCP. Social work (units (unknown) date) consulted to help unknown) set up for follow-up with PCP. (unknown) (no (unknown) (unknown) PELVIS:? (units (unkno wn) date) unknown) (unknown) (no (unknown) (unknown) PROCEDURE:? CT (units (unknown) date) CHEST ABD PEL W CON unknown) (unknown) (no (unknown) (unknown) PROCEDURE:? XR (units (unknown) date) CHEST 1V unknown) (unknown) (no (unknown) (unknown) PT (10.1-12.7) (units (unknown) date) SECONDS unknown) (unknown) (no (unknown) (unknown) PT 11.7 (units (unkno wn) date) (10.1-12.7) SECONDS unknown) (unknown) (no (unknown) (unknown) Pancreas (units (unkno wn) date) unknown) (unknown) (no (unknown) (unknown) Partial (units (unkno wn) date) Thromboplastin Time unknown) Stat (unknown) (no (unknown) (unknown) Patient History (units (unknown) date) unknown) (unknown) (no (unknown) (unknown) Patient healthy (units (unknown) date) 36-year-old female unknown) presenting today with bilateral breast lumps (unknown) (no (unknown) (unknown) Patient is a (units (un known) date) healthy 36-year-old unknown) female who presents with a variety of symptoms. (unknown) (no (unknown) (unknown) Patient: (units (unkno wn) date) CastilloCarmina A unknown) MR#: (unknown) (no (unknown) (unknown) Patient: (units (unkno wn) date) David Castillojose luis Cooper unknown) (unknown) (no (unknown) (unknown) Penicillins (units (un known) date) Allergy unknown) Intermediate Rash Verified 03/05/22 10:24 (unknown) (no (unknown) (unknown) Peritoneum and (units (unknown) date) bowel:? Bowel loops unknown) demonstrate normal wall thickness and (unknown) (no (unknown) (unknown) Pertussis Vaccines (units (unknown) date) Allergy Unknown unknown) Seizure Verified 03/05/22 10:24 (unknown) (no (unknown) (unknown) Plt Count (units (unkn own) date) (150-400) X103/uL unknown) (unknown) (no (unknown) (unknown) Plt Count 229 (units ( unknown) date) (150-400) X103/uL unknown) (unknown) (no (unknown) (unknown) Potassium (units (unkn own) date) (3.4-5.1) mmol/L unknown) (unknown) (no (unknown) (unknown) Potassium 4.0 (units ( unknown) date) (3.4-5.1) mmol/L unknown) (unknown) (no (unknown) (unknown) Prescriptions: (units (unknown) date) unknown) (unknown) (no (unknown) (unknown) Previous Rx's (units ( unknown) date) unknown) (unknown) (no (unknown) (unknown) Procalcitonin (units ( unknown) date) (<0.5) ng/mL unknown) (unknown) (no (unknown) (unknown) Procalcitonin 0.04 (units (unknown) date) (<0.5) ng/mL unknown) (unknown) (no (unknown) (unknown) Procalcitonin Stat (units (unknown) date) unknown) (unknown) (no (unknown) (unknown) Procedure: CT (units ( unknown) date) chest abd pel w con unknown) (unknown) (no (unknown) (unknown) Procedure: XR (units ( unknown) date) chest 1V unknown) (unknown) (no (unknown) (unknown) Prothrombin Time (units (unknown) date) INR Stat unknown) (unknown) (no (unknown) (unknown) Pulse Oximetry 100 (units (unknown) date) 03/05/22 10:20 unknown) (unknown) (no (unknown) (unknown) Pulse Oximetry 100 (units (unknown) date) unknown) (unknown) (no (unknown) (unknown) Pulse Rate 63 (units ( unknown) date) 03/05/22 10:20 unknown) (unknown) (no (unknown) (unknown) Pulse Rate 63 (units ( unknown) date) unknown) (unknown) (no (unknown) (unknown) RBC (4.0-5.2) (units ( unknown) date) X106/uL unknown) (unknown) (no (unknown) (unknown) RBC 3.94 L (units (unk nown) date) (4.0-5.2) X106/uL unknown) (unknown) (no (unknown) (unknown) RDW (11.6-14.8) % (units (unknown) date) unknown) (unknown) (no (unknown) (unknown) RDW 12.1 (units (unkno wn) date) (11.6-14.8) % unknown) (unknown) (no (unknown) (unknown) RESPIRATORY: (units (u nknown) date) Breath sounds equal unknown) bilaterally, no wheezes rales or rhonchi. (unknown) (no (unknown) (unknown) ROS Unobtainable: (units (unknown) date) All systems unknown) reviewed + are unremarkable except as noted in HPI (unknown) (no (unknown) (unknown) RSV (PCR) (units (unkn own) date) (Negative) unknown) (unknown) (no (unknown) (unknown) RSV (PCR) Negative (units (unknown) date) (Negative) unknown) (unknown) (no (unknown) (unknown) Radiologist's (units ( unknown) date) Impression: unknown) (unknown) (no (unknown) (unknown) Kitchen Aide (units (unkno wn) date) (ranitidine)) unknown) (unknown) (no (unknown) (unknown) Referrals: (units (unk nown) date) unknown) (unknown) (no (unknown) (unknown) Related Data (units (u nknown) date) unknown) (unknown) (no (unknown) (unknown) Respiratory Rate (units (unknown) date) 16 03/05/22 10:20 unknown) (unknown) (no (unknown) (unknown) Respiratory Rate (units (unknown) date) 16 unknown) (unknown) (no (unknown) (unknown) Result diagrams: (units (unknown) date) unknown) (unknown) (no (unknown) (unknown) Review of Systems (units (unknown) date) unknown) (unknown) (no (unknown) (unknown) Rx Instructions: (units (unknown) date) unknown) (unknown) (no (unknown) (unknown) S/P laparoscopic (units (unknown) date) supracervical unknown) hysterectomy (04/04/18) (unknown) (no (unknown) (unknown) SARS-CoV-2 (PCR) (units (unknown) date) (Negative) unknown) (unknown) (no (unknown) (unknown) SARS-CoV-2 (PCR) (units (unknown) date) Negative (Negative) unknown) (unknown) (no (unknown) (unknown) SKIN: Warm, dry, (units (unknown) date) no laceration, no unknown) petechiae, no rashes or lesions. (unknown) (no (unknown) (unknown) Daniel Ghosh DO (units (unknown) date) [Primary Care unknown) Provider] (unknown) (no (unknown) (unknown) She did have open (units (unknown) date) heart surgery for unknown) what was thought to be in abnormal valve (unknown) (no (unknown) (unknown) She reports that (units (unknown) date) she is had about a unknown) 12 lb weight loss since . She (unknown) (no (unknown) (unknown) Signed By: (units (unk nown) date) unknown) (unknown) (no (unknown) (unknown) Signed (units (unkno wn) date) unknown) (unknown) (no (unknown) (unknown) Sinus rhythm rate (units (unknown) date) 47 AR interval 130 unknown) QRS 96 QTC 364 changes no T-wave inversions (unknown) (no (unknown) (unknown) Smoking Status: (units (unknown) date) Former smoker unknown) (unknown) (no (unknown) (unknown) Social History (units (unknown) date) (Reviewed 03/05/22 unknown) @ 11:22 by Danita Vila DO) (unknown) (no (unknown) (unknown) Sodium (137-145) (units (unknown) date) mmol/L unknown) (unknown) (no (unknown) (unknown) Sodium 139 (units (unk nown) date) (137-145) mmol/L unknown) (unknown) (no (unknown) (unknown) Solid organs:? (units (unknown) date) Liver is normal in unknown) size and enhancement.? Gallbladder is (unknown) (no (unknown) (unknown) Solitary pure (units (u nknown) date) ground-glass unknown) nodules<6 mm (ground glass or part solid)No followup (unknown) (no (unknown) (unknown) Stated Complaint: (units (unknown) date) pain in chest, unknown) sternum hurts, cough (unknown) (no (unknown) (unknown) Substance Use (units ( unknown) date) Type: marijuana unknown) (unknown) (no (unknown) (unknown) Surgical History (units (unknown) date) (Reviewed 03/05/22 unknown) @ 11:22 by Danita Vila DO) (unknown) (no (unknown) (unknown) Surgical changes (units (unknown) date) and devices:? unknown) None.? (unknown) (no (unknown) (unknown) TECHNIQUE:? One (units (unknown) date) view of the chest unknown) was acquired.? (unknown) (no (unknown) (unknown) TECHNIQUE:? (units (un known) date) unknown) (unknown) (no (unknown) (unknown) TSH (0.47-4.68) (units (unknown) date) uIU/mL unknown) (unknown) (no (unknown) (unknown) TSH 0.894 (units (unkn own) date) (0.47-4.68) uIU/mL unknown) (unknown) (no (unknown) (unknown) TSH [Thyroid (units (u nknown) date) Stimulating unknown) Hormone] Stat (unknown) (no (unknown) (unknown) Temperature 97 F L (units (unknown) date) 03/05/22 10:20 unknown) (unknown) (no (unknown) (unknown) Temperature 97 F L (units (unknown) date) unknown) (unknown) (no (unknown) (unknown) Thyroid gland (units ( unknown) date) unknown) (unknown) (no (unknown) (unknown) Time Seen by (units (u nknown) date) Provider: 03/05/22 unknown) 10:35 (unknown) (no (unknown) (unknown) Total Bilirubin (units (unknown) date) (0.2-1.3) mg/dL unknown) (unknown) (no (unknown) (unknown) Total Bilirubin (units (unknown) date) 0.5 (0.2-1.3) mg/dL unknown) (unknown) (no (unknown) (unknown) Total Creatine (units (unknown) date) Kinase (30-135) U/L unknown) (unknown) (no (unknown) (unknown) Total Creatine (units (unknown) date) Kinase 88 (30-135) unknown) U/L (unknown) (no (unknown) (unknown) Total Protein (units ( unknown) date) (6.3-8.2) g/dL unknown) (unknown) (no (unknown) (unknown) Total Protein 7.7 (units (unknown) date) (6.3-8.2) g/dL unknown) (unknown) (no (unknown) (unknown) Troponin + CK (units ( unknown) date) Cardiac Panel Stat unknown) (unknown) (no (unknown) (unknown) Troponin I (units (unk nown) date) (0.01-0.034) ng/mL unknown) (unknown) (no (unknown) (unknown) Troponin I 0.015 (units (unknown) date) (0.01-0.034) ng/mL unknown) (unknown) (no (unknown) (unknown) Upset (units (unkno wn) date) unknown) (unknown) (no (unknown) (unknown) Vital Signs - 8 hr (units (unknown) date) unknown) (unknown) (no (unknown) (unknown) Vital Signs (units (un known) date) unknown) (unknown) (no (unknown) (unknown) Vital signs: (units (u nknown) date) unknown) (unknown) (no (unknown) (unknown) WBC (4.5-11.0) (units (unknown) date) X103/uL unknown) (unknown) (no (unknown) (unknown) WBC 6.6 (4.5-11.0) (units (unknown) date) X103/uL unknown) (unknown) (no (unknown) (unknown) XR chest 1V Stat (units (unknown) date) unknown) (unknown) (no (unknown) (unknown) XRay Report (units (un known) date) unknown) (unknown) (no (unknown) (unknown) [Embedded Image (units (unknown) date) Not Available] unknown) (unknown) (no (unknown) (unknown) [PERTUSSIS (units (unk nown) date) VACCINES] unknown) (unknown) (no (unknown) (unknown) according to (units (u nknown) date) unknown) (unknown) (no (unknown) (unknown) additional 7 mm (units (unknown) date) MIP reformats unknown) through the lungs.? For radiation dose reduction, (unknown) (no (unknown) (unknown) additional (units (unk nown) date) outpatient follow unknown) up (unknown) (no (unknown) (unknown) adenopathy by size (units (unknown) date) criteria.? Thoracic unknown) aorta and central pulmonary arteries are (unknown) (no (unknown) (unknown) aerosol inhaler (units (unknown) date) (ProAir HFA) unknown) Ventilation (unknown) (no (unknown) (unknown) albuterol sulfate (units (unknown) date) 90 mcg/actuation 1 unknown) puff inhalation Q6H PRN Adequate 11/14/17 (unknown) (no (unknown) (unknown) albuterol sulfate (units (unknown) date) [ProAir HFA] 90 unknown) mcg/actuation HFA aerosol inhaler (unknown) (no (unknown) (unknown) alcohol intake (units (unknown) date) frequency: 0-2 unknown) drinks per day (unknown) (no (unknown) (unknown) alprazolam 0.25 mg (units (unknown) date) tablet (Xanax) 0.25 unknown) mg PO BID-TID PRN anxiety #10 03/18/18 (unknown) (no (unknown) (unknown) alprazolam [Xanax] (units (unknown) date) 0.25 mg tablet unknown) (unknown) (no (unknown) (unknown) amoxicillin (units (un known) date) Allergy unknown) Intermediate Rash, Verified 03/05/22 10:24 (unknown) (no (unknown) (unknown) and below (units (unkn own) date) unknown) (unknown) (no (unknown) (unknown) and inferior vena (units (unknown) date) cava are normal in unknown) size.? (unknown) (no (unknown) (unknown) and (units (unkno wn) date) unknown) (unknown) (no (unknown) (unknown) appear (units (unkno wn) date) unknown) (unknown) (no (unknown) (unknown) approximately 3 (units (unknown) date) unknown) (unknown) (no (unknown) (unknown) axilla no (units (unkn own) date) abnormality unknown) (unknown) (no (unknown) (unknown) azithromycin (units (u nknown) date) Allergy unknown) Intermediate Gastrointestinal Verified 03/05/22 10:24 (unknown) (no (unknown) (unknown) been reviewed with (units (unknown) date) patient as well as unknown) indications for ED re-evaluation and (unknown) (no (unknown) (unknown) bilaterally. There (units (unknown) date) painful to touch. unknown) She has had a sore throat little bit of a (unknown) (no (unknown) (unknown) caliber.? No (units (u nknown) date) unknown) (unknown) (no (unknown) (unknown) ciprofloxacin (units ( unknown) date) Allergy unknown) Intermediate Gastrointestinal Verified 03/05/22 10:24 (unknown) (no (unknown) (unknown) contracted, (units (un known) date) unknown) (unknown) (no (unknown) (unknown) cough. No (units (unkn own) date) abdominal pain unknown) nausea vomiting painful or frequent urination. No (unknown) (no (unknown) (unknown) criteria.? Aorta (units (unknown) date) unknown) (unknown) (no (unknown) (unknown) enhances (units (unkno wn) date) normally.? Spleen unknown) is normal in size and enhancement.? No adrenal (unknown) (no (unknown) (unknown) every 2 (units (unkno wn) date) unknown) (unknown) (no (unknown) (unknown) fissural (units (unkno wn) date) unknown) (unknown) (no (unknown) (unknown) follow-up (units (unkn own) date) unknown) (unknown) (no (unknown) (unknown) following was (units ( unknown) date) used:? automated unknown) exposure control, adjustment of mA and/or kV (unknown) (no (unknown) (unknown) followup.Optional (units (unknown) date) CT at 12 months. unknown) 6-8 (single or multiple)CT at 6-12 months, (unknown) (no (unknown) (unknown) free fluid or (units ( unknown) date) air.? unknown) (unknown) (no (unknown) (unknown) from the (units (unkno wn) date) unknown) (unknown) (no (unknown) (unknown) gluten AdvReac (units (unknown) date) Mild Stomach unknown) Verified 03/05/22 10:24 (unknown) (no (unknown) (unknown) guarding or (units (un known) date) rebound. unknown) (unknown) (no (unknown) (unknown) has night sweats. (units (unknown) date) Kids have been sick unknown) off and on for couple of weeks. However (unknown) (no (unknown) (unknown) headache (units (unkno wn) date) unknown) (unknown) (no (unknown) (unknown) hilar (units (unkno wn) date) unknown) (unknown) (no (unknown) (unknown) household members: (units (unknown) date) spouse and children unknown) (unknown) (no (unknown) (unknown) hydrocodone 5 (units ( unknown) date) mg-acetaminophen unknown) 325 1 tab PO Q4-6H PRN pain #10 tabs 05/19/18 (unknown) (no (unknown) (unknown) hydrocodone 5 (units ( unknown) date) mg-acetaminophen unknown) 325 1 tab PO Q4-6H PRN pain #7 tabs 06/02/18 (unknown) (no (unknown) (unknown) hydrocodone-acetam (units (unknown) date) inophen 5-325 mg unknown) tablet (unknown) (no (unknown) (unknown) hydromorphone (units ( unknown) date) Allergy Mild unknown) Flushing Verified 03/05/22 10:24 (unknown) (no (unknown) (unknown) ibuprofen Allergy (units (unknown) date) Mild Kidney unknown) Verified 03/05/22 10:24 (unknown) (no (unknown) (unknown) immunosuppression, (units (unknown) date) or patients with unknown) known primary cancer. (unknown) (no (unknown) (unknown) infection (units (unkn own) date) unknown) (unknown) (no (unknown) (unknown) intact (units (unkno wn) date) unknown) (unknown) (no (unknown) (unknown) is unremarkable .? (units (unknown) date) unknown) (unknown) (no (unknown) (unknown) last week she and (units (unknown) date) her both unknown) noticed some lumps in her breasts (unknown) (no (unknown) (unknown) leave on most (units ( unknown) date) painful area for 12 unknown) hrs (unknown) (no (unknown) (unknown) lidocaine 5 % (units ( unknown) date) adhesive unknown) patch,medicated (unknown) (no (unknown) (unknown) lidocaine 5 % (units ( unknown) date) topical patch 1 unknown) patch topical DAILY #15 ea 06/02/18 (unknown) (no (unknown) (unknown) lung apices to the (units (unknown) date) symphysis.? 5 mm unknown) coronal and sagittal reformats were (unknown) (no (unknown) (unknown) lymph nodes in the (units (unknown) date) major fissure of unknown) the right lung.? They each measure (unknown) (no (unknown) (unknown) lymphadenitis (units ( unknown) date) unknown) (unknown) (no (unknown) (unknown) mg tablet (units (unkn own) date) unknown) (unknown) (no (unknown) (unknown) mm.? There is a 3 (units (unknown) date) mm subpleural unknown) pulmonary nodule in the extreme left lung base.? (unknown) (no (unknown) (unknown) months, PET-CT, or (units (unknown) date) biopsy. Same as for unknown) low-risk pts.? >8 (multiple)CT at 3-6 (unknown) (no (unknown) (unknown) months, then (units (u nknown) date) unknown) (unknown) (no (unknown) (unknown) multiple pulmonary (units (unknown) date) nodules. Unclear if unknown) this is infectious or cancerous. At (unknown) (no (unknown) (unknown) nausea, (units (unkno wn) date) unknown) (unknown) (no (unknown) (unknown) needed.? (units (unkno wn) date) unknown) (unknown) (no (unknown) (unknown) nickel AdvReac (units (unknown) date) Mild Irritation/ unknown) Verified 03/05/22 10:24 (unknown) (no (unknown) (unknown) no erythema no (units (unknown) date) lymph nodes in unknown) axilla (unknown) (no (unknown) (unknown) node (units (unkno wn) date) unknown) (unknown) (no (unknown) (unknown) nodules.? (units (unkn own) date) unknown) (unknown) (no (unknown) (unknown) normal in (units (unkn own) date) caliber.? unknown) (unknown) (no (unknown) (unknown) normal in (units (unkn own) date) unknown) (unknown) (no (unknown) (unknown) ondansetron 4 mg (units (unknown) date) disintegrating 4 mg unknown) PO QID PRN nausea and 04/05/18 (unknown) (no (unknown) (unknown) ondansetron 4 mg (units (unknown) date) disintegrating 4 mg unknown) PO TID-QID PRN nausea and 06/02/18 (unknown) (no (unknown) (unknown) ondansetron 4 mg (units (unknown) date) tablet,disintegrati unknown) ng (unknown) (no (unknown) (unknown) optional CT at (units (unknown) date) 18-24 mo.CT at 3-6 unknown) months, then CT at 18-24 months.? (unknown) (no (unknown) (unknown) optional CT at (units (unknown) date) 18-24 mo.CT at 6-12 unknown) months, then CT at 18-24 months.? >8 (unknown) (no (unknown) (unknown) other pain. She is (units (unknown) date) not had a unknown) mammogram. No cancer history that she knows of. (unknown) (no (unknown) (unknown) pain, (units (unkno wn) date) unknown) (unknown) (no (unknown) (unknown) patient size.? (units (unknown) date) unknown) (unknown) (no (unknown) (unknown) patients with (units ( unknown) date) unknown) (unknown) (no (unknown) (unknown) patients. 6 mm or (units (unknown) date) larger.? CT at 3-6 unknown) months. Subsequent management based on most (unknown) (no (unknown) (unknown) performed, with (units (unknown) date) unknown) (unknown) (no (unknown) (unknown) persistence, (units (u nknown) date) unknown) (unknown) (no (unknown) (unknown) pleural effusions (units (unknown) date) or pneumothorax.? unknown) Central and peripheral airways appear patent (unknown) (no (unknown) (unknown) ranitidine HCl 150 (units (unknown) date) mg tablet (Acid 150 unknown) mg PO PRN PRN Acid Reflux 04/05/18 (unknown) (no (unknown) (unknown) ranitidine HCl (units (unknown) date) [Acid Kitchen Aide unknown) (ranitidine)] 150 mg Tablet (unknown) (no (unknown) (unknown) recommendations. (units (unknown) date) unknown) (unknown) (no (unknown) (unknown) redness (units (unkno wn) date) unknown) (unknown) (no (unknown) (unknown) risk (units (unkno wn) date) unknown) (unknown) (no (unknown) (unknown) routine (units (unkno wn) date) unknown) (unknown) (no (unknown) (unknown) signs of sepsis. (units (unknown) date) TSH is slightly low unknown) at 0.8. CT chest abdomen pelvis does show (unknown) (no (unknown) (unknown) size.? Esophagus (units (unknown) date) is normal in unknown) caliber.? No hiatal hernia.? (unknown) (no (unknown) (unknown) sub-solid nodules<6 (units (unknown) date) mmCT at 3-6 months, unknown) then CT consider at 2 + 4 years for high (unknown) (no (unknown) (unknown) suspicious (units (unk nown) date) lesions. unknown) Recommendations do not apply to lung cancer screening, (unknown) (no (unknown) (unknown) tablet vomiting (units (unknown) date) #14 tabs unknown) (unknown) (no (unknown) (unknown) tablet vomiting (units (unknown) date) #20 tabs unknown) (unknown) (no (unknown) (unknown) tabs (units (unkno wn) date) unknown) (unknown) (no (unknown) (unknown) the (units (unkno wn) date) unknown) (unknown) (no (unknown) (unknown) then annual CT (units ( unknown) date) until 5 years if unknown) unchanged and solid component remains <6 mm.? (unknown) (no (unknown) (unknown) then (units (unkno wn) date) unknown) (unknown) (no (unknown) (unknown) this time she will (units (unknown) date) need close unknown) outpatient follow-up. Patient does not have a (unknown) (no (unknown) (unknown) throat was (units (unk nown) date) unknown) (unknown) (no (unknown) (unknown) tingly (units (unkno wn) date) unknown) (unknown) (no (unknown) (unknown) touch both and 12 (units (unknown) date) o'clock position. unknown) Blood work is overall reassuring without (unknown) (no (unknown) (unknown) underlying cancer. (units (unknown) date) However a both unknown) breast lumps feel like lymph nodes tender to (unknown) (no (unknown) (unknown) unremarkable, (units ( unknown) date) without calcified unknown) stones .? Biliary system is non dilated.? (unknown) (no (unknown) (unknown) unremarkable.? (units (unknown) date) unknown) (unknown) (no (unknown) (unknown) when she was in (units (unknown) date) her 20s however it unknown) turned out to be a false alarm (unknown) (no (unknown) (unknown) which are painful (units (unknown) date) weight loss and unknown) night sweats. Certainly concern is for some (unknown) (no (unknown) (unknown) wondering baseline (units (unknown) date) noted unknown) (unknown) (no (unknown) (unknown) years until 5 (units ( unknown) date) years.6 mm or unknown) larger (part solid)CT at 3-6 months to confirm Result panel [id number] (unknown) (no (unknown) (unknown) (no value) (units (unk nown) date) unknown) (unknown) (no (unknown) (unknown) (single)CT at 3 (units (unknown) date) unknown) (unknown) (no (unknown) (unknown) * Clinical (units (unk nown) date) Decision unknown) Rules/Scores evaluated: None (unknown) (no (unknown) (unknown) * Independent (units ( unknown) date) discussions with: unknown) Not (unknown) (no (unknown) (unknown) * My imaging (units (u nknown) date) interpretation: CT unknown) chest abdomen pelvis as above (unknown) (no (unknown) (unknown) * My lab (units (unkno wn) date) interpretation: unknown) Blood work reassuring. CBC is 6.6 without left shift (unknown) (no (unknown) (unknown) * Prior records (units (unknown) date) reviewed: Previous unknown) visits from 2019 (unknown) (no (unknown) (unknown) * Shared Decision (units (unknown) date) Making: and unknown) patient (unknown) (no (unknown) (unknown) * Social (units (unkno wn) date) Considerations: No unknown) PCP, [facility] consultation help set up for good follow (unknown) (no (unknown) (unknown) * differential (units (unknown) date) diagnosis includes unknown) but not limited to: Cancer infection (unknown) (no (unknown) (unknown) TRAMADOL DOES (units (unknown) date) NOT CONTAIN TYLENOL unknown) (unknown) (no (unknown) (unknown) *Continue to take (units (unknown) date) medications as unknown) directed (unknown) (no (unknown) (unknown) *Disposition: see (units (unknown) date) below, along with unknown) detailed discharge instructions that have (unknown) (no (unknown) (unknown) *Follow up with (units (unknown) date) your primary care unknown) provider in 2-3 days or call [phone] (unknown) (no (unknown) (unknown) *Return to ER if (units (unknown) date) you should have unknown) dizziness lightheadedness increasing pain (unknown) (no (unknown) (unknown) *What to do: At (units (unknown) date) this time I think unknown) the lumps in her breasts that you are feeling (unknown) (no (unknown) (unknown) *You have been (units (unknown) date) diagnosed with unknown) multiple pulmonary nodules (unknown) (no (unknown) (unknown) 0.25 mg PO BID-TID (units (unknown) date) PRN (Reason: unknown) anxiety) Qty: 10 0RF (unknown) (no (unknown) (unknown) 03/05/22 03/05/22 (units (unknown) date) 03/05/22 unknown) Range/Units (unknown) (no (unknown) (unknown) 03/05/22 10:32 (units (unknown) date) unknown) (unknown) (no (unknown) (unknown) 03/05/22 11:00 (units (unknown) date) unknown) (unknown) (no (unknown) (unknown) 03/05/22 11:44 (units (unknown) date) unknown) (unknown) (no (unknown) (unknown) 03/05/22 13:25 (units (unknown) date) unknown) (unknown) (no (unknown) (unknown) 03/05/22 (units (unkno wn) date) Range/Units unknown) (unknown) (no (unknown) (unknown) 03/05/22 (units (unkno wn) date) unknown) (unknown) (no (unknown) (unknown) 07/03/18 (units (unkno wn) date) unknown) (unknown) (no (unknown) (unknown) 1 patch TOP DAILY (units (unknown) date) Qty: 15 0RF unknown) (unknown) (no (unknown) (unknown) 1 puff INHALATION (units (unknown) date) Q6H PRN (Reason: unknown) Adequate Ventilation) (unknown) (no (unknown) (unknown) 1 tab PO Q4-6H PRN (units (unknown) date) (Reason: pain) Qty: unknown) 10 0RF (unknown) (no (unknown) (unknown) 1 tab PO Q4-6H PRN (units (unknown) date) (Reason: pain) Qty: unknown) 7 0RF (unknown) (no (unknown) (unknown) 1. No evidence of (units (unknown) date) acute process in unknown) the chest, abdomen, and pelvis. (unknown) (no (unknown) (unknown) 1. You have been (units (unknown) date) prescribed narcotic unknown) medications, it does have (unknown) (no (unknown) (unknown) 10:20 (units (unkno wn) date) unknown) (unknown) (no (unknown) (unknown) 11:00 11:44 11:44 (units (unknown) date) unknown) (unknown) (no (unknown) (unknown) 11:44 11:44 11:44 (units (unknown) date) unknown) (unknown) (no (unknown) (unknown) 11:44 (units (unkno wn) date) unknown) (unknown) (no (unknown) (unknown) 150 mg PO PRN PRN (units (unknown) date) (Reason: Acid unknown) Reflux) (unknown) (no (unknown) (unknown) 2. Multiple (units (un known) date) pulmonary nodules, unknown) all 3 mm or less.? Please see chart below for (unknown) (no (unknown) (unknown) 2. Please (units (unkn own) date) understand that we unknown) cannot provide further refills of narcotics, (unknown) (no (unknown) (unknown) 3. While on these (units (unknown) date) medications you unknown) cannot drive or operate heavy machinery. (unknown) (no (unknown) (unknown) 4 mg PO PRN PRN (units (unknown) date) (Reason: Nausea) unknown) Qty: 0 (unknown) (no (unknown) (unknown) 4 mg PO QID PRN (units (unknown) date) (Reason: nausea and unknown) vomiting) Qty: 14 2RF (unknown) (no (unknown) (unknown) 4 mg PO TID-QID (units (unknown) date) PRN (Reason: nausea unknown) and vomiting) Qty: 20 0RF (unknown) (no (unknown) (unknown) 4. You cannot sign (units (unknown) date) legal documents or unknown) perform any duties such as this. (unknown) (no (unknown) (unknown) 5. As long as (units ( unknown) date) you're taking unknown) opiate pain medications he should also be taking a (unknown) (no (unknown) (unknown) 6 mm or larger (units (unknown) date) (ground glass)CT at unknown) 6-12 months to confirm persistence, then CT (unknown) (no (unknown) (unknown) ? (units (unkno wn) date) unknown) (unknown) (no (unknown) (unknown) ABDOMEN: Soft, (units (unknown) date) nontender. unknown) Normoactive bowel sounds all 4 quadrants. No (unknown) (no (unknown) (unknown) ABDOMEN:? (units (unkn own) date) unknown) (unknown) (no (unknown) (unknown) ALT (<35) IU/L (units (unknown) date) unknown) (unknown) (no (unknown) (unknown) ALT 18 (<35) IU/L (units (unknown) date) unknown) (unknown) (no (unknown) (unknown) APTT (26-36) (units (u nknown) date) SECONDS unknown) (unknown) (no (unknown) (unknown) APTT 28 (26-36) (units (unknown) date) SECONDS unknown) (unknown) (no (unknown) (unknown) AST (14-36) IU/L (units (unknown) date) unknown) (unknown) (no (unknown) (unknown) AST 28 (14-36) (units (unknown) date) IU/L unknown) (unknown) (no (unknown) (unknown) Accession Number: (units (unknown) date) [id number] ?? unknown) (unknown) (no (unknown) (unknown) Accession Number: (units (unknown) date) [id number] ?? unknown) (unknown) (no (unknown) (unknown) Acct:[id number] (units (unknown) date) unknown) (unknown) (no (unknown) (unknown) Activity (units (unkno wn) date) Restrictions/Additi unknown) onal Instructions: (unknown) (no (unknown) (unknown) After the (units (unkn own) date) administration of unknown) intravenous contrast, 5 mm thick sections acquired (unknown) (no (unknown) (unknown) Age/Sex: 36 / F (units (unknown) date) unknown) (unknown) (no (unknown) (unknown) Albumin (3.5-5.0) (units (unknown) date) g/dL unknown) (unknown) (no (unknown) (unknown) Albumin 4.4 (units (un known) date) (3.5-5.0) g/dL unknown) (unknown) (no (unknown) (unknown) Albumin/Globulin (units (unknown) date) Ratio (1.0-2.8) unknown) (unknown) (no (unknown) (unknown) Albumin/Globulin (units (unknown) date) Ratio 1.3 (1.0-2.8) unknown) (unknown) (no (unknown) (unknown) Alkaline (units (unkno wn) date) Phosphatase unknown) (38-126) U/L (unknown) (no (unknown) (unknown) Alkaline (units (unkno wn) date) Phosphatase 47 unknown) (38-126) U/L (unknown) (no (unknown) (unknown) Allergies (units (unkn own) date) unknown) (unknown) (no (unknown) (unknown) Allergy/AdvReac (units (unknown) date) Type Severity unknown) Reaction Status Date / Time (unknown) (no (unknown) (unknown) Wes Thompson on (units (unknown) date) March 13 at unknown) 11:30 a.m. with check in at 11:15 a.m. (unknown) (no (unknown) (unknown) Asthma (units (unkno wn) date) unknown) (unknown) (no (unknown) (unknown) BREAST: Right (units ( unknown) date) breast 12:00 p.m. 1 unknown) cm lymph node like swelling painful to touch (unknown) (no (unknown) (unknown) BUN (7-17) mg/dL (units (unknown) date) unknown) (unknown) (no (unknown) (unknown) BUN 11 (7-17) (units ( unknown) date) mg/dL unknown) (unknown) (no (unknown) (unknown) BUN/Creatinine (units (unknown) date) Ratio (6-22) unknown) (unknown) (no (unknown) (unknown) BUN/Creatinine (units (unknown) date) Ratio 16.2 (6-22) unknown) (unknown) (no (unknown) (unknown) Baso # (Auto) (units ( unknown) date) (0-100) /uL unknown) (unknown) (no (unknown) (unknown) Baso # (Auto) 100 (units (unknown) date) (0-100) /uL unknown) (unknown) (no (unknown) (unknown) Baso % (Auto) (units ( unknown) date) (0-2) % unknown) (unknown) (no (unknown) (unknown) Baso % (Auto) 0.8 (units (unknown) date) (0-2) % unknown) (unknown) (no (unknown) (unknown) Blood Culture Stat (units (unknown) date) unknown) (unknown) (no (unknown) (unknown) Blood Pressure (units (unknown) date) 11303/05/22 unknown) 10:20 (unknown) (no (unknown) (unknown) Blood Pressure (units (unknown) date) unknown) (unknown) (no (unknown) (unknown) Bones and chest (units (unknown) date) wall:? No unknown) suspicious bony lesions.? Overlying soft tissues (unknown) (no (unknown) (unknown) Bones:? No (units (unk nown) date) suspicious bony unknown) lesions.? No vertebral body compression fractures.? (unknown) (no (unknown) (unknown) CARDIOVASCULAR: (units (unknown) date) Regular rate and unknown) rhythm without murmurs, rubs or gallops. (unknown) (no (unknown) (unknown) CHEST:? (units (unkno wn) date) unknown) (unknown) (no (unknown) (unknown) CK-MB (CK-2) Rel (units (unknown) date) Index TNP unknown) (unknown) (no (unknown) (unknown) CK-MB (CK-2) Rel (units (unknown) date) Index unknown) (unknown) (no (unknown) (unknown) CK-MB (CK-2) TNP (units (unknown) date) unknown) (unknown) (no (unknown) (unknown) CK-MB (CK-2) (units (u nknown) date) unknown) (unknown) (no (unknown) (unknown) COMPARISON:? (units (u nknown) date) [facility], unknown) CR, CHEST 2 VIEW, 12/16/2008, 21:11. (unknown) (no (unknown) (unknown) COMPARISON:? None. (units (unknown) date) unknown) (unknown) (no (unknown) (unknown) CONTROLLED (units (unk nown) date) SUBSTANCE DISCHARGE unknown) (Narcotoic/benzodia zepine/Flexeril/Phe nergan) (unknown) (no (unknown) (unknown) CT Scan Report (units (unknown) date) unknown) (unknown) (no (unknown) (unknown) CT chest abd pel w (units (unknown) date) con Stat unknown) (unknown) (no (unknown) (unknown) CT scan - chest: (units (unknown) date) unknown) (unknown) (no (unknown) (unknown) Calcium (8.4-10.2) (units (unknown) date) mg/dL unknown) (unknown) (no (unknown) (unknown) Calcium 9.2 (units (un known) date) (8.4-10.2) mg/dL unknown) (unknown) (no (unknown) (unknown) Carbon Dioxide (units (unknown) date) (22-32) mmol/L unknown) (unknown) (no (unknown) (unknown) Carbon Dioxide 29 (units (unknown) date) (22-32) mmol/L unknown) (unknown) (no (unknown) (unknown) Chest wall:? No (units (unknown) date) axillary or unknown) supraclavicular adenopathy by size criteria.? (unknown) (no (unknown) (unknown) Chest x-ray: (units (u nknown) date) unknown) (unknown) (no (unknown) (unknown) Chief Complaint: (units (unknown) date) Chest Pain unknown) (unknown) (no (unknown) (unknown) Chloride (98-107) (units (unknown) date) mmol/L unknown) (unknown) (no (unknown) (unknown) Chloride 104 (units (u nknown) date) (98-107) mmol/L unknown) (unknown) (no (unknown) (unknown) Clinical (units (unkno wn) date) Impression: unknown) (unknown) (no (unknown) (unknown) Complete Blood (units (unknown) date) Count AUTO DIFF unknown) Stat (unknown) (no (unknown) (unknown) Comprehensive (units ( unknown) date) Metabolic Panel unknown) Stat (unknown) (no (unknown) (unknown) Consult to [employer] - (units (unknown) date) 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 unknown) Stat (unknown) (no (unknown) (unknown) Course (units (unkno wn) date) unknown) (unknown) (no (unknown) (unknown) Covid-19 + FLU A/B (units (unknown) date) + RSV - PCR Stat unknown) (unknown) (no (unknown) (unknown) Creatinine (units (unk nown) date) (0.52-1.04) mg/dL unknown) (unknown) (no (unknown) (unknown) Creatinine 0.68 (units (unknown) date) (0.52-1.04) mg/dL unknown) (unknown) (no (unknown) (unknown) : 1985 (units (unknown) date) Acct:[id number] unknown) (unknown) (no (unknown) (unknown) : 1985 (units (unknown) date) unknown) (unknown) (no (unknown) (unknown) Date of Service: (units (unknown) date) 03/05/22 unknown) (unknown) (no (unknown) (unknown) Departure (units (unkn own) date) unknown) (unknown) (no (unknown) (unknown) Dictated by: (units (u nknown) date) Errol Lennon unknown) Jose on 03/05/2022 at 10:54 ? (unknown) (no (unknown) (unknown) Dictated by: (units (u nknown) date) ethan Woods) Jose on 03/05/2022 at 12:54 ? ? (unknown) (no (unknown) (unknown) Discharge Plan (units (unknown) date) unknown) (unknown) (no (unknown) (unknown) ECG Data (units (unkno wn) date) unknown) (unknown) (no (unknown) (unknown) ED Orders (units (unkn own) date) unknown) (unknown) (no (unknown) (unknown) EKG-12 Lead Stat (units (unknown) date) unknown) (unknown) (no (unknown) (unknown) ER Physician: (units ( unknown) date) Danita Vila D.O. unknown) (unknown) (no (unknown) (unknown) EXTREMITIES: (units (u nknown) date) Normal range of unknown) motion, no clubbing or edema. Neurovascularly (unknown) (no (unknown) (unknown) Emergency Report (units (unknown) date) unknown) (unknown) (no (unknown) (unknown) Eos # (Auto) (units (u nknown) date) (0-450) /uL unknown) (unknown) (no (unknown) (unknown) Eos # (Auto) 200 (units (unknown) date) (0-450) /uL unknown) (unknown) (no (unknown) (unknown) Eos % (Auto) (2-4) (units (unknown) date) % unknown) (unknown) (no (unknown) (unknown) Eos % (Auto) 2.5 (units (unknown) date) (2-4) % unknown) (unknown) (no (unknown) (unknown) Estimated GFR > 60 (units (unknown) date) (>60) mL/min unknown) (unknown) (no (unknown) (unknown) Estimated GFR (units ( unknown) date) (>60) mL/min unknown) (unknown) (no (unknown) (unknown) Exam (units (unkno wn) date) unknown) (unknown) (no (unknown) (unknown) FINDINGS:? (units (unk nown) date) unknown) (unknown) (no (unknown) (unknown) Fleischner Society (units (unknown) date) criteria for SOLID unknown) lung nodule followup.? (unknown) (no (unknown) (unknown) Fleischner Society (units (unknown) date) criteria for unknown) SUB-SOLID lung nodule followup.? (unknown) (no (unknown) (unknown) GENERAL: Thin (units ( unknown) date) 36-year-old female unknown) (unknown) (no (unknown) (unknown) General (units (unkno wn) date) unknown) (unknown) (no (unknown) (unknown) Genitourinary:? (units (unknown) date) Bladder wall unknown) thickness is normal.? (unknown) (no (unknown) (unknown) Globulin (1.7-4.1) (units (unknown) date) g/dL unknown) (unknown) (no (unknown) (unknown) Globulin 3.3 (units (u nknown) date) (1.7-4.1) g/dL unknown) (unknown) (no (unknown) (unknown) Glucose (70-100) (units (unknown) date) mg/dL unknown) (unknown) (no (unknown) (unknown) Glucose 87 (units (unk nown) date) (70-100) mg/dL unknown) (unknown) (no (unknown) (unknown) H/O exploratory (units (unknown) date) laparotomy unknown) (unknown) (no (unknown) (unknown) H/O left knee (units ( unknown) date) surgery unknown) (unknown) (no (unknown) (unknown) HEENT: Head (units (un known) date) atraumatic,EOMI, unknown) pupils reactive, face symmetric, no cervical lymph (unknown) (no (unknown) (unknown) HPI - Chest Pain (units (unknown) date) unknown) (unknown) (no (unknown) (unknown) HPI narrative: (units (unknown) date) unknown) (unknown) (no (unknown) (unknown) Hct (36-46) % (units ( unknown) date) unknown) (unknown) (no (unknown) (unknown) Hct 35.5 L (36-46) (units (unknown) date) % unknown) (unknown) (no (unknown) (unknown) Hgb (12.0-16.0) (units (unknown) date) g/dL unknown) (unknown) (no (unknown) (unknown) Hgb 12.2 (units (unkno wn) date) (12.0-16.0) g/dL unknown) (unknown) (no (unknown) (unknown) History of Present (units (unknown) date) Illness unknown) (unknown) (no (unknown) (unknown) History of open (units (unknown) date) heart surgery unknown) (unknown) (no (unknown) (unknown) History of surgery (units (unknown) date) unknown) (unknown) (no (unknown) (unknown) Home Medications (units (unknown) date) unknown) (unknown) (no (unknown) (unknown) IMPRESSION:? No (units (unknown) date) evidence acute unknown) pulmonary process. (unknown) (no (unknown) (unknown) IMPRESSION:? (units (u nknown) date) unknown) (unknown) (no (unknown) (unknown) INDICATIONS:? (units ( unknown) date) chest pain unknown) (unknown) (no (unknown) (unknown) INDICATIONS:? (units ( unknown) date) weight loss, night unknown) sweats, bilateral breast lymphnodes (unknown) (no (unknown) (unknown) INR (0.9-1.3) (units ( unknown) date) unknown) (unknown) (no (unknown) (unknown) INR 1.0 (0.9-1.3) (units (unknown) date) unknown) (unknown) (no (unknown) (unknown) Image quality:? (units (unknown) date) Excellent.? unknown) (unknown) (no (unknown) (unknown) Imaging Data (units (u nknown) date) unknown) (unknown) (no (unknown) (unknown) Influenza A (units (un known) date) (RT-PCR) (NEGATIVE) unknown) (unknown) (no (unknown) (unknown) Influenza A (units (un known) date) (RT-PCR) Flu a unknown) negative (NEGATIVE) (unknown) (no (unknown) (unknown) Influenza B (units (un known) date) (RT-PCR) (NEGATIVE) unknown) (unknown) (no (unknown) (unknown) Influenza B (units (un known) date) (RT-PCR) Flu b unknown) negative (NEGATIVE) (unknown) (no (unknown) (unknown) Initial Vital (units ( unknown) date) Signs unknown) (unknown) (no (unknown) (unknown) Initial Vital (units ( unknown) date) Signs: unknown) (unknown) (no (unknown) (unknown) Instructions: DI (units (unknown) date) for Pulmonary unknown) Nodule (unknown) (no (unknown) (unknown) Interpretation: (units (unknown) date) unknown) (unknown) (no (unknown) (unknown) [facility] (units (unknown) date) [address] unknown) [place] [address] (unknown) (no (unknown) (unknown) Kidneys (units (unkno wn) date) demonstrate normal unknown) size and enhancement, without hydronephrosis.? (unknown) (no (unknown) (unknown) Lab Data (units (unkno wn) date) unknown) (unknown) (no (unknown) (unknown) Lab Results (units (un known) date) unknown) (unknown) (no (unknown) (unknown) Labs: (units (unkno wn) date) unknown) (unknown) (no (unknown) (unknown) Lactate (0.7-2.1) (units (unknown) date) mmol/L unknown) (unknown) (no (unknown) (unknown) Lactate (Lactic (units (unknown) date) Acid) Stat unknown) (unknown) (no (unknown) (unknown) Lactate 0.9 (units (un known) date) (0.7-2.1) mmol/L unknown) (unknown) (no (unknown) (unknown) Left breast 12:00 (units (unknown) date) p.m. 1 cm painful unknown) lymph node like swelling non erythematous (unknown) (no (unknown) (unknown) Lipase (23-300) (units (unknown) date) U/L unknown) (unknown) (no (unknown) (unknown) Lipase 187 (units (unk nown) date) (23-300) U/L unknown) (unknown) (no (unknown) (unknown) Lipase Stat (units (un known) date) unknown) (unknown) (no (unknown) (unknown) Loc: ED (units (unkno wn) date) unknown) (unknown) (no (unknown) (unknown) Lungs and pleura:? (units (unknown) date) Lungs are clear.? unknown) No pleural effusions or pneumothorax.? (unknown) (no (unknown) (unknown) Lungs and pleura:? (units (unknown) date) No acute airspace unknown) opacities.? There are 3 probable small (unknown) (no (unknown) (unknown) Lymph # (Auto) (units (unknown) date) (5650-6120) /uL unknown) (unknown) (no (unknown) (unknown) Lymph # (Auto) (units (unknown) date) 1400 (6889-2079) unknown) /uL (unknown) (no (unknown) (unknown) Lymph % (Auto) (units (unknown) date) (25-40) % unknown) (unknown) (no (unknown) (unknown) Lymph % (Auto) (units (unknown) date) 20.6 L (25-40) % unknown) (unknown) (no (unknown) (unknown) [id number] (units (unk nown) date) unknown) (unknown) (no (unknown) (unknown) MCH (26-34) PG (units (unknown) date) unknown) (unknown) (no (unknown) (unknown) MCH 30.9 (26-34) (units (unknown) date) PG unknown) (unknown) (no (unknown) (unknown) MCHC (30-36) % (units (unknown) date) unknown) (unknown) (no (unknown) (unknown) MCHC 34.3 (30-36) (units (unknown) date) % unknown) (unknown) (no (unknown) (unknown) MCV (80-100) fL (units (unknown) date) unknown) (unknown) (no (unknown) (unknown) MCV 90.0 (80-100) (units (unknown) date) fL unknown) (unknown) (no (unknown) (unknown) MDM - Chest Pain (units (unknown) date) unknown) (unknown) (no (unknown) (unknown) MDM Narrative (units ( unknown) date) unknown) (unknown) (no (unknown) (unknown) MDM (units (unkno wn) date) unknown) (unknown) (no (unknown) (unknown) MR#: [id number] (units (unknown) date) unknown) (unknown) (no (unknown) (unknown) Magnesium (units (unkn own) date) (1.6-2.3) mg/dL unknown) (unknown) (no (unknown) (unknown) Magnesium 1.9 (units ( unknown) date) (1.6-2.3) mg/dL unknown) (unknown) (no (unknown) (unknown) Magnesium Stat (units (unknown) date) unknown) (unknown) (no (unknown) (unknown) Mediastinum:? Heart (units (unknown) date) size is normal.? No unknown) pericardial effusion.? No mediastinal or (unknown) (no (unknown) (unknown) Mediastinum:? (units ( unknown) date) Mediastinal unknown) contours appear normal.? Heart size is normal.? (unknown) (no (unknown) (unknown) Medical History (units (unknown) date) (Updated 03/05/22 @ unknown) 13:36 by Danita Vila DO) (unknown) (no (unknown) (unknown) Medical decision (units (unknown) date) making narrative: unknown) (unknown) (no (unknown) (unknown) Medication (units (unk nown) date) Instructions unknown) Recorded Confirmed (unknown) (no (unknown) (unknown) Medication (units (unk nown) date) Instructions unknown) Recorded (unknown) (no (unknown) (unknown) Miscellaneous:? No (units (unknown) date) inguinal hernias or unknown) adenopathy.? Retroverted uterus. (unknown) (no (unknown) (unknown) Miscellaneous:? No (units (unknown) date) ventral hernias.? unknown) (unknown) (no (unknown) (unknown) [place] # (Auto) (units ( unknown) date) (0-900) /uL unknown) (unknown) (no (unknown) (unknown) [place] # (Auto) 500 (units (unknown) date) (0-900) /uL unknown) (unknown) (no (unknown) (unknown) [place] % (Auto) (units ( unknown) date) (3-14) % unknown) (unknown) (no (unknown) (unknown) [place] % (Auto) 8.0 (units (unknown) date) (3-14) % unknown) (unknown) (no (unknown) (unknown) Multiple (units (unkno wn) date) unknown) (unknown) (no (unknown) (unknown) NEUROLOGICAL: (units ( unknown) date) Alert and oriented unknown) x4.Normal gait and speech. (unknown) (no (unknown) (unknown) Neut # (Auto) (units ( unknown) date) (4574-5271) /uL unknown) (unknown) (no (unknown) (unknown) Neut # (Auto) 4500 (units (unknown) date) (0707-2974) /uL unknown) (unknown) (no (unknown) (unknown) Neut % (Auto) (units ( unknown) date) (50-75) % unknown) (unknown) (no (unknown) (unknown) Neut % (Auto) 68.1 (units (unknown) date) (50-75) % unknown) (unknown) (no (unknown) (unknown) No Action (units (unkn own) date) unknown) (unknown) (no (unknown) (unknown) No (units (unkno wn) date) unknown) (unknown) (no (unknown) (unknown) Nodes and (units (unkn own) date) vessels:? No unknown) retroperitoneal or mesenteric adenopathy by size (unknown) (no (unknown) (unknown) Nodule size (units (un known) date) (mm)Low-risk unknown) patientHigh-risk patient<6 (single or multiple)No (unknown) (no (unknown) (unknown) [place] 1 tablet (units (unknown) date) every 6 hours if unknown) needed for severe pain (unknown) (no (unknown) (unknown) Ondansetron (units (un known) date) (Zofran Odt) 4 mg unknown) PO PRN PRN Nausea ##0 07/06/10 07/03/18 (unknown) (no (unknown) (unknown) Ondansetron (units (un known) date) (Zofran Odt) tablet unknown) (unknown) (no (unknown) (unknown) Ordered: (units (unkno wn) date) unknown) (unknown) (no (unknown) (unknown) Ordering Provider: (units (unknown) date) Danita Vila D.O. unknown) (unknown) (no (unknown) (unknown) Orders (units (unkno wn) date) unknown) (unknown) (no (unknown) (unknown) Oxygen Delivery (units (unknown) date) Method 03/05/22 unknown) 10:20 (unknown) (no (unknown) (unknown) Oxygen Delivery (units (unknown) date) Method Room Air unknown) (unknown) (no (unknown) (unknown) PCP. Social work (units (unknown) date) consulted to help unknown) set up for follow-up with PCP. (unknown) (no (unknown) (unknown) PELVIS:? (units (unkno wn) date) unknown) (unknown) (no (unknown) (unknown) PROCEDURE:? CT (units (unknown) date) CHEST ABD PEL W CON unknown) (unknown) (no (unknown) (unknown) PROCEDURE:? XR (units (unknown) date) CHEST 1V unknown) (unknown) (no (unknown) (unknown) PT (10.1-12.7) (units (unknown) date) SECONDS unknown) (unknown) (no (unknown) (unknown) PT 11.7 (units (unkno wn) date) (10.1-12.7) SECONDS unknown) (unknown) (no (unknown) (unknown) Pancreas (units (unkno wn) date) unknown) (unknown) (no (unknown) (unknown) Partial (units (unkno wn) date) Thromboplastin Time unknown) Stat (unknown) (no (unknown) (unknown) Patient (units (unkno wn) date) Disposition: Home unknown) (unknown) (no (unknown) (unknown) Patient History (units (unknown) date) unknown) (unknown) (no (unknown) (unknown) Patient healthy (units (unknown) date) 36-year-old female unknown) presenting today with bilateral breast lumps (unknown) (no (unknown) (unknown) Patient is a (units (un known) date) healthy 36-year-old unknown) female who presents with a variety of symptoms. (unknown) (no (unknown) (unknown) Patient: (units (unkno wn) date) Carmina Castillo unknown) MR#: (unknown) (no (unknown) (unknown) Patient: (units (unkno wn) date) Carmina Castillo unknown) (unknown) (no (unknown) (unknown) Penicillins (units (un known) date) Allergy unknown) Intermediate Rash Verified 03/05/22 10:24 (unknown) (no (unknown) (unknown) Peritoneum and (units (unknown) date) bowel:? Bowel loops unknown) demonstrate normal wall thickness and (unknown) (no (unknown) (unknown) Pertussis Vaccines (units (unknown) date) Allergy Unknown unknown) Seizure Verified 03/05/22 10:24 (unknown) (no (unknown) (unknown) Plt Count (units (unkn own) date) (150-400) X103/uL unknown) (unknown) (no (unknown) (unknown) Plt Count 229 (units ( unknown) date) (150-400) X103/uL unknown) (unknown) (no (unknown) (unknown) Potassium (units (unkn own) date) (3.4-5.1) mmol/L unknown) (unknown) (no (unknown) (unknown) Potassium 4.0 (units ( unknown) date) (3.4-5.1) mmol/L unknown) (unknown) (no (unknown) (unknown) Prescriptions: (units (unknown) date) unknown) (unknown) (no (unknown) (unknown) Previous Rx's (units ( unknown) date) unknown) (unknown) (no (unknown) (unknown) Procalcitonin (units ( unknown) date) (<0.5) ng/mL unknown) (unknown) (no (unknown) (unknown) Procalcitonin 0.04 (units (unknown) date) (<0.5) ng/mL unknown) (unknown) (no (unknown) (unknown) Procalcitonin Stat (units (unknown) date) unknown) (unknown) (no (unknown) (unknown) Procedure: CT (units ( unknown) date) chest abd pel w con unknown) (unknown) (no (unknown) (unknown) Procedure: XR (units ( unknown) date) chest 1V unknown) (unknown) (no (unknown) (unknown) Prothrombin Time (units (unknown) date) INR Stat unknown) (unknown) (no (unknown) (unknown) Pulmonary nodule (units (unknown) date) unknown) (unknown) (no (unknown) (unknown) Pulse Oximetry 100 (units (unknown) date) 03/05/22 10:20 unknown) (unknown) (no (unknown) (unknown) Pulse Oximetry 100 (units (unknown) date) unknown) (unknown) (no (unknown) (unknown) Pulse Rate 63 (units ( unknown) date) 03/05/22 10:20 unknown) (unknown) (no (unknown) (unknown) Pulse Rate 63 (units ( unknown) date) unknown) (unknown) (no (unknown) (unknown) RBC (4.0-5.2) (units ( unknown) date) X106/uL unknown) (unknown) (no (unknown) (unknown) RBC 3.94 L (units (unk nown) date) (4.0-5.2) X106/uL unknown) (unknown) (no (unknown) (unknown) RDW (11.6-14.8) % (units (unknown) date) unknown) (unknown) (no (unknown) (unknown) RDW 12.1 (units (unkno wn) date) (11.6-14.8) % unknown) (unknown) (no (unknown) (unknown) RESPIRATORY: (units (u nknown) date) Breath sounds equal unknown) bilaterally, no wheezes rales or rhonchi. (unknown) (no (unknown) (unknown) ROS Unobtainable: (units (unknown) date) All systems unknown) reviewed + are unremarkable except as noted in HPI (unknown) (no (unknown) (unknown) RSV (PCR) (units (unkn own) date) (Negative) unknown) (unknown) (no (unknown) (unknown) RSV (PCR) Negative (units (unknown) date) (Negative) unknown) (unknown) (no (unknown) (unknown) Radiologist's (units ( unknown) date) Impression: unknown) (unknown) (no (unknown) (unknown) Kitchen Aide (units (unkno wn) date) (ranitidine)) unknown) (unknown) (no (unknown) (unknown) Referrals: (units (unk nown) date) unknown) (unknown) (no (unknown) (unknown) Related Data (units (u nknown) date) unknown) (unknown) (no (unknown) (unknown) Respiratory Rate (units (unknown) date) 16 03/05/22 10:20 unknown) (unknown) (no (unknown) (unknown) Respiratory Rate (units (unknown) date) 16 unknown) (unknown) (no (unknown) (unknown) Result diagrams: (units (unknown) date) unknown) (unknown) (no (unknown) (unknown) Review of Systems (units (unknown) date) unknown) (unknown) (no (unknown) (unknown) Wes Herrera ARNP (units (unknown) date) [Advanced Practice unknown) Clinician] (unknown) (no (unknown) (unknown) Rx Instructions: (units (unknown) date) unknown) (unknown) (no (unknown) (unknown) S/P laparoscopic (units (unknown) date) supracervical unknown) hysterectomy (04/04/18) (unknown) (no (unknown) (unknown) SARS-CoV-2 (PCR) (units (unknown) date) (Negative) unknown) (unknown) (no (unknown) (unknown) SARS-CoV-2 (PCR) (units (unknown) date) Negative (Negative) unknown) (unknown) (no (unknown) (unknown) SKIN: Warm, dry, (units (unknown) date) no laceration, no unknown) petechiae, no rashes or lesions. (unknown) (no (unknown) (unknown) Daniel Ghosh DO (units (unknown) date) [Primary Care unknown) Provider] (unknown) (no (unknown) (unknown) She did have open (units (unknown) date) heart surgery for unknown) what was thought to be in abnormal valve (unknown) (no (unknown) (unknown) She reports that (units (unknown) date) she is had about a unknown) 12 lb weight loss since . She (unknown) (no (unknown) (unknown) Signed By: (units (unk nown) date) unknown) (unknown) (no (unknown) (unknown) Signed (units (unkno wn) date) unknown) (unknown) (no (unknown) (unknown) Sinus rhythm rate (units (unknown) date) 47 AR interval 130 unknown) QRS 96 QTC 364 changes no T-wave inversions (unknown) (no (unknown) (unknown) Smoking Status: (units (unknown) date) Former smoker unknown) (unknown) (no (unknown) (unknown) Social History (units (unknown) date) (Reviewed 03/05/22 unknown) @ 11:22 by Danita Vila DO) (unknown) (no (unknown) (unknown) Sodium (137-145) (units (unknown) date) mmol/L unknown) (unknown) (no (unknown) (unknown) Sodium 139 (units (unk nown) date) (137-145) mmol/L unknown) (unknown) (no (unknown) (unknown) Solid organs:? (units (unknown) date) Liver is normal in unknown) size and enhancement.? Gallbladder is (unknown) (no (unknown) (unknown) Solitary pure (units (u nknown) date) ground-glass unknown) nodules<6 mm (ground glass or part solid)No followup (unknown) (no (unknown) (unknown) Stand Alone Forms: (units (unknown) date) Patient Portal/API unknown) (unknown) (no (unknown) (unknown) Stated Complaint: (units (unknown) date) pain in chest, unknown) sternum hurts, cough (unknown) (no (unknown) (unknown) Substance Use (units ( unknown) date) Type: marijuana unknown) (unknown) (no (unknown) (unknown) Surgical History (units (unknown) date) (Reviewed 03/05/22 unknown) @ 11:22 by Danita Vila DO) (unknown) (no (unknown) (unknown) Surgical changes (units (unknown) date) and devices:? unknown) None.? (unknown) (no (unknown) (unknown) TECHNIQUE:? One (units (unknown) date) view of the chest unknown) was acquired.? (unknown) (no (unknown) (unknown) TECHNIQUE:? (units (un known) date) unknown) (unknown) (no (unknown) (unknown) TSH (0.47-4.68) (units (unknown) date) uIU/mL unknown) (unknown) (no (unknown) (unknown) TSH 0.894 (units (unkn own) date) (0.47-4.68) uIU/mL unknown) (unknown) (no (unknown) (unknown) TSH [Thyroid (units (u nknown) date) Stimulating unknown) Hormone] Stat (unknown) (no (unknown) (unknown) Temperature 97 F L (units (unknown) date) 03/05/22 10:20 unknown) (unknown) (no (unknown) (unknown) Temperature 97 F L (units (unknown) date) unknown) (unknown) (no (unknown) (unknown) Thyroid gland (units ( unknown) date) unknown) (unknown) (no (unknown) (unknown) Time Seen by (units (u nknown) date) Provider: 03/05/22 unknown) 10:35 (unknown) (no (unknown) (unknown) Total Bilirubin (units (unknown) date) (0.2-1.3) mg/dL unknown) (unknown) (no (unknown) (unknown) Total Bilirubin (units (unknown) date) 0.5 (0.2-1.3) mg/dL unknown) (unknown) (no (unknown) (unknown) Total Creatine (units (unknown) date) Kinase (30-135) U/L unknown) (unknown) (no (unknown) (unknown) Total Creatine (units (unknown) date) Kinase 88 (30-135) unknown) U/L (unknown) (no (unknown) (unknown) Total Protein (units ( unknown) date) (6.3-8.2) g/dL unknown) (unknown) (no (unknown) (unknown) Total Protein 7.7 (units (unknown) date) (6.3-8.2) g/dL unknown) (unknown) (no (unknown) (unknown) Troponin + CK (units ( unknown) date) Cardiac Panel Stat unknown) (unknown) (no (unknown) (unknown) Troponin I (units (unk nown) date) (0.01-0.034) ng/mL unknown) (unknown) (no (unknown) (unknown) Troponin I 0.015 (units (unknown) date) (0.01-0.034) ng/mL unknown) (unknown) (no (unknown) (unknown) Upset (units (unkno wn) date) unknown) (unknown) (no (unknown) (unknown) Vital Signs - 8 hr (units (unknown) date) unknown) (unknown) (no (unknown) (unknown) Vital Signs (units (un known) date) unknown) (unknown) (no (unknown) (unknown) Vital signs: (units (u nknown) date) unknown) (unknown) (no (unknown) (unknown) WBC (4.5-11.0) (units (unknown) date) X103/uL unknown) (unknown) (no (unknown) (unknown) WBC 6.6 (4.5-11.0) (units (unknown) date) X103/uL unknown) (unknown) (no (unknown) (unknown) XR chest 1V Stat (units (unknown) date) unknown) (unknown) (no (unknown) (unknown) XRay Report (units (un known) date) unknown) (unknown) (no (unknown) (unknown) [Embedded Image (units (unknown) date) Not Available] unknown) (unknown) (no (unknown) (unknown) [PERTUSSIS (units (unk nown) date) VACCINES] unknown) (unknown) (no (unknown) (unknown) according to (units (u nknown) date) unknown) (unknown) (no (unknown) (unknown) acetaminophen/Tyle (units (unknown) date) nol/paracetamol in unknown) it, DO NOT TAKE MORE THAN 4,00mg in 24 (unknown) (no (unknown) (unknown) additional 7 mm (units (unknown) date) MIP reformats unknown) through the lungs.? For radiation dose reduction, (unknown) (no (unknown) (unknown) additional (units (unk nown) date) outpatient follow unknown) up (unknown) (no (unknown) (unknown) adenopathy by size (units (unknown) date) criteria.? Thoracic unknown) aorta and central pulmonary arteries are (unknown) (no (unknown) (unknown) aerosol inhaler (units (unknown) date) (ProAir HFA) unknown) Ventilation (unknown) (no (unknown) (unknown) albuterol sulfate (units (unknown) date) 90 mcg/actuation 1 unknown) puff inhalation Q6H PRN Adequate 11/14/17 (unknown) (no (unknown) (unknown) albuterol sulfate (units (unknown) date) [ProAir HFA] 90 unknown) mcg/actuation HFA aerosol inhaler (unknown) (no (unknown) (unknown) alcohol intake (units (unknown) date) frequency: 0-2 unknown) drinks per day (unknown) (no (unknown) (unknown) alprazolam 0.25 mg (units (unknown) date) tablet (Xanax) 0.25 unknown) mg PO BID-TID PRN anxiety #10 03/18/18 (unknown) (no (unknown) (unknown) alprazolam [Xanax] (units (unknown) date) 0.25 mg tablet unknown) (unknown) (no (unknown) (unknown) amoxicillin (units (un known) date) Allergy unknown) Intermediate Rash, Verified 03/05/22 10:24 (unknown) (no (unknown) (unknown) and below (units (unkn own) date) unknown) (unknown) (no (unknown) (unknown) and inferior vena (units (unknown) date) cava are normal in unknown) size.? (unknown) (no (unknown) (unknown) and (units (unkno wn) date) unknown) (unknown) (no (unknown) (unknown) appear (units (unkno wn) date) unknown) (unknown) (no (unknown) (unknown) approximately 3 (units (unknown) date) unknown) (unknown) (no (unknown) (unknown) are probably lymph (units (unknown) date) nodes. I recommend unknown) ice 20-30 minutes at a time. You will (unknown) (no (unknown) (unknown) axilla no (units (unkn own) date) abnormality unknown) (unknown) (no (unknown) (unknown) azithromycin (units (u nknown) date) Allergy unknown) Intermediate Gastrointestinal Verified 03/05/22 10:24 (unknown) (no (unknown) (unknown) been reviewed with (units (unknown) date) patient as well as unknown) indications for ED re-evaluation and (unknown) (no (unknown) (unknown) benzodiazepines or (units (unknown) date) controlled unknown) substances through the ED and her pain management (unknown) (no (unknown) (unknown) bilaterally. There (units (unknown) date) painful to touch. unknown) She has had a sore throat little bit of a (unknown) (no (unknown) (unknown) caliber.? No (units (u nknown) date) unknown) (unknown) (no (unknown) (unknown) ciprofloxacin (units ( unknown) date) Allergy unknown) Intermediate Gastrointestinal Verified 03/05/22 10:24 (unknown) (no (unknown) (unknown) constipation. (units ( unknown) date) unknown) (unknown) (no (unknown) (unknown) contracted, (units (un known) date) unknown) (unknown) (no (unknown) (unknown) cough. No (units (unkn own) date) abdominal pain unknown) nausea vomiting painful or frequent urination. No (unknown) (no (unknown) (unknown) criteria.? Aorta (units (unknown) date) unknown) (unknown) (no (unknown) (unknown) enhances (units (unkno wn) date) normally.? Spleen unknown) is normal in size and enhancement.? No adrenal (unknown) (no (unknown) (unknown) every 2 (units (unkno wn) date) unknown) (unknown) (no (unknown) (unknown) fevers passing out (units (unknown) date) or any new, unknown) worsening or concerning symptoms (unknown) (no (unknown) (unknown) fissural (units (unkno wn) date) unknown) (unknown) (no (unknown) (unknown) follow-up (units (unkn own) date) unknown) (unknown) (no (unknown) (unknown) following was (units ( unknown) date) used:? automated unknown) exposure control, adjustment of mA and/or kV (unknown) (no (unknown) (unknown) followup.Optional (units (unknown) date) CT at 12 months. unknown) 6-8 (single or multiple)CT at 6-12 months, (unknown) (no (unknown) (unknown) free fluid or (units ( unknown) date) air.? unknown) (unknown) (no (unknown) (unknown) from the (units (unkno wn) date) unknown) (unknown) (no (unknown) (unknown) gluten AdvReac (units (unknown) date) Mild Stomach unknown) Verified 03/05/22 10:24 (unknown) (no (unknown) (unknown) guarding or (units (un known) date) rebound. unknown) (unknown) (no (unknown) (unknown) has night sweats. (units (unknown) date) Kids have been sick unknown) off and on for couple of weeks. However (unknown) (no (unknown) (unknown) headache (units (unkno wn) date) unknown) (unknown) (no (unknown) (unknown) hilar (units (unkno wn) date) unknown) (unknown) (no (unknown) (unknown) hours of Tylenol. (units (unknown) date) unknown) (unknown) (no (unknown) (unknown) household members: (units (unknown) date) spouse and children unknown) (unknown) (no (unknown) (unknown) hydrocodone 5 (units ( unknown) date) mg-acetaminophen unknown) 325 1 tab PO Q4-6H PRN pain #10 tabs 05/19/18 (unknown) (no (unknown) (unknown) hydrocodone 5 (units ( unknown) date) mg-acetaminophen unknown) 325 1 tab PO Q4-6H PRN pain #7 tabs 06/02/18 (unknown) (no (unknown) (unknown) hydrocodone-acetam (units (unknown) date) inophen 5-325 mg unknown) tablet (unknown) (no (unknown) (unknown) hydromorphone (units ( unknown) date) Allergy Mild unknown) Flushing Verified 03/05/22 10:24 (unknown) (no (unknown) (unknown) ibuprofen Allergy (units (unknown) date) Mild Kidney unknown) Verified 03/05/22 10:24 (unknown) (no (unknown) (unknown) immunosuppression, (units (unknown) date) or patients with unknown) known primary cancer. (unknown) (no (unknown) (unknown) infection (units (unkn own) date) unknown) (unknown) (no (unknown) (unknown) intact (units (unkno wn) date) unknown) (unknown) (no (unknown) (unknown) is unremarkable .? (units (unknown) date) unknown) (unknown) (no (unknown) (unknown) last week she and (units (unknown) date) her both unknown) noticed some lumps in her breasts (unknown) (no (unknown) (unknown) leave on most (units ( unknown) date) painful area for 12 unknown) hrs (unknown) (no (unknown) (unknown) lidocaine 5 % (units ( unknown) date) adhesive unknown) patch,medicated (unknown) (no (unknown) (unknown) lidocaine 5 % (units ( unknown) date) topical patch 1 unknown) patch topical DAILY #15 ea 06/02/18 (unknown) (no (unknown) (unknown) limits TSH is 0.89 (units (unknown) date) unknown) (unknown) (no (unknown) (unknown) lung apices to the (units (unknown) date) symphysis.? 5 mm unknown) coronal and sagittal reformats were (unknown) (no (unknown) (unknown) lymph nodes in the (units (unknown) date) major fissure of unknown) the right lung.? They each measure (unknown) (no (unknown) (unknown) lymphadenitis (units ( unknown) date) unknown) (unknown) (no (unknown) (unknown) mg tablet (units (unkn own) date) unknown) (unknown) (no (unknown) (unknown) mm.? There is a 3 (units (unknown) date) mm subpleural unknown) pulmonary nodule in the extreme left lung base.? (unknown) (no (unknown) (unknown) months, PET-CT, or (units (unknown) date) biopsy. Same as for unknown) low-risk pts.? >8 (multiple)CT at 3-6 (unknown) (no (unknown) (unknown) months, then (units (u nknown) date) unknown) (unknown) (no (unknown) (unknown) multiple pulmonary (units (unknown) date) nodules. Unclear if unknown) this is infectious or cancerous. At (unknown) (no (unknown) (unknown) nausea, (units (unkno wn) date) unknown) (unknown) (no (unknown) (unknown) need a repeat (units ( unknown) date) chest CT in 3-6 unknown) months with her PCP plus or minus a mammogram. (unknown) (no (unknown) (unknown) needed.? (units (unkno wn) date) unknown) (unknown) (no (unknown) (unknown) nickel AdvReac (units (unknown) date) Mild Irritation/ unknown) Verified 03/05/22 10:24 (unknown) (no (unknown) (unknown) no erythema no (units (unknown) date) lymph nodes in unknown) axilla (unknown) (no (unknown) (unknown) node (units (unkno wn) date) unknown) (unknown) (no (unknown) (unknown) nodules.? (units (unkn own) date) unknown) (unknown) (no (unknown) (unknown) normal in (units (unkn own) date) caliber.? unknown) (unknown) (no (unknown) (unknown) normal in (units (unkn own) date) unknown) (unknown) (no (unknown) (unknown) ondansetron 4 mg (units (unknown) date) disintegrating 4 mg unknown) PO QID PRN nausea and 04/05/18 (unknown) (no (unknown) (unknown) ondansetron 4 mg (units (unknown) date) disintegrating 4 mg unknown) PO TID-QID PRN nausea and 06/02/18 (unknown) (no (unknown) (unknown) ondansetron 4 mg (units (unknown) date) tablet,disintegrati unknown) ng (unknown) (no (unknown) (unknown) optional CT at (units (unknown) date) 18-24 mo.CT at 3-6 unknown) months, then CT at 18-24 months.? (unknown) (no (unknown) (unknown) optional CT at (units (unknown) date) 18-24 mo.CT at 6-12 unknown) months, then CT at 18-24 months.? >8 (unknown) (no (unknown) (unknown) or anemia (units (unkn own) date) electrolytes are unknown) within normal limits kidney function within normal (unknown) (no (unknown) (unknown) other pain. She is (units (unknown) date) not had a unknown) mammogram. No cancer history that she knows of. (unknown) (no (unknown) (unknown) pain, (units (unkno wn) date) unknown) (unknown) (no (unknown) (unknown) patient size.? (units (unknown) date) unknown) (unknown) (no (unknown) (unknown) patients with (units ( unknown) date) unknown) (unknown) (no (unknown) (unknown) patients. 6 mm or (units (unknown) date) larger.? CT at 3-6 unknown) months. Subsequent management based on most (unknown) (no (unknown) (unknown) performed, with (units (unknown) date) unknown) (unknown) (no (unknown) (unknown) persistence, (units (u nknown) date) unknown) (unknown) (no (unknown) (unknown) pleural effusions (units (unknown) date) or pneumothorax.? unknown) Central and peripheral airways appear patent (unknown) (no (unknown) (unknown) ranitidine HCl 150 (units (unknown) date) mg tablet (Acid 150 unknown) mg PO PRN PRN Acid Reflux 04/05/18 (unknown) (no (unknown) (unknown) ranitidine HCl (units (unknown) date) [Acid Kitchen Aide unknown) (ranitidine)] 150 mg Tablet (unknown) (no (unknown) (unknown) recommendations. (units (unknown) date) unknown) (unknown) (no (unknown) (unknown) redness (units (unkno wn) date) unknown) (unknown) (no (unknown) (unknown) risk (units (unkno wn) date) unknown) (unknown) (no (unknown) (unknown) routine (units (unkno wn) date) unknown) (unknown) (no (unknown) (unknown) signs of sepsis. (units (unknown) date) TSH is slightly low unknown) at 0.8. CT chest abdomen pelvis does show (unknown) (no (unknown) (unknown) size.? Esophagus (units (unknown) date) is normal in unknown) caliber.? No hiatal hernia.? (unknown) (no (unknown) (unknown) stool softener (units (unknown) date) such as Colace, unknown) Dulcolax, MiraLAX or prune juice, to help avoid (unknown) (no (unknown) (unknown) sub-solid nodules<6 (units (unknown) date) mmCT at 3-6 months, unknown) then CT consider at 2 + 4 years for high (unknown) (no (unknown) (unknown) suspicious (units (unk nown) date) lesions. unknown) Recommendations do not apply to lung cancer screening, (unknown) (no (unknown) (unknown) tablet vomiting (units (unknown) date) #14 tabs unknown) (unknown) (no (unknown) (unknown) tablet vomiting (units (unknown) date) #20 tabs unknown) (unknown) (no (unknown) (unknown) tabs (units (unkno wn) date) unknown) (unknown) (no (unknown) (unknown) the (units (unkno wn) date) unknown) (unknown) (no (unknown) (unknown) then annual CT (units ( unknown) date) until 5 years if unknown) unchanged and solid component remains <6 mm.? (unknown) (no (unknown) (unknown) then (units (unkno wn) date) unknown) (unknown) (no (unknown) (unknown) this time she will (units (unknown) date) need close unknown) outpatient follow-up. Patient does not have a (unknown) (no (unknown) (unknown) throat was (units (unk nown) date) unknown) (unknown) (no (unknown) (unknown) tingly (units (unkno wn) date) unknown) (unknown) (no (unknown) (unknown) touch both and 12 (units (unknown) date) o'clock position. unknown) Blood work is overall reassuring without (unknown) (no (unknown) (unknown) underlying cancer. (units (unknown) date) However a both unknown) breast lumps feel like lymph nodes tender to (unknown) (no (unknown) (unknown) unremarkable, (units ( unknown) date) without calcified unknown) stones .? Biliary system is non dilated.? (unknown) (no (unknown) (unknown) unremarkable.? (units (unknown) date) unknown) (unknown) (no (unknown) (unknown) up she will need (units (unknown) date) repeat chest CT. unknown) (unknown) (no (unknown) (unknown) when she was in (units (unknown) date) her 20s however it unknown) turned out to be a false alarm (unknown) (no (unknown) (unknown) which are painful (units (unknown) date) weight loss and unknown) night sweats. Certainly concern is for some (unknown) (no (unknown) (unknown) will need to be (units (unknown) date) through your unknown) provider. (unknown) (no (unknown) (unknown) wondering baseline (units (unknown) date) noted unknown) (unknown) (no (unknown) (unknown) years until 5 (units ( unknown) date) years.6 mm or unknown) larger (part solid)CT at 3-6 months to confirm Result panel 567 (unknown) (no (unknown) (unknown) (no value) (units (unk nown) date) unknown) (unknown) (no (unknown) (unknown) (single)CT at 3 (units (unknown) date) unknown) (unknown) (no (unknown) (unknown) * Clinical (units (unk nown) date) Decision unknown) Rules/Scores evaluated: None (unknown) (no (unknown) (unknown) * Independent (units ( unknown) date) discussions with: unknown) Not (unknown) (no (unknown) (unknown) * My imaging (units (u nknown) date) interpretation: CT unknown) chest abdomen pelvis as above (unknown) (no (unknown) (unknown) * My lab (units (unkno wn) date) interpretation: unknown) Blood work reassuring. CBC is 6.6 without left shift (unknown) (no (unknown) (unknown) * Prior records (units (unknown) date) reviewed: Previous unknown) visits from 2019 (unknown) (no (unknown) (unknown) * Shared Decision (units (unknown) date) Making: and unknown) patient (unknown) (no (unknown) (unknown) * Social (units (unkno wn) date) Considerations: No unknown) PCP, [facility] consultation help set up for good follow (unknown) (no (unknown) (unknown) * differential (units (unknown) date) diagnosis includes unknown) but not limited to: Cancer infection (unknown) (no (unknown) (unknown) TRAMADOL DOES (units (unknown) date) NOT CONTAIN TYLENOL unknown) (unknown) (no (unknown) (unknown) *Continue to take (units (unknown) date) medications as unknown) directed --> SENT TO [facility] (unknown) (no (unknown) (unknown) *Disposition: see (units (unknown) date) below, along with unknown) detailed discharge instructions that have (unknown) (no (unknown) (unknown) *Follow up with (units (unknown) date) your primary care unknown) provider in 2-3 days or call [phone] (unknown) (no (unknown) (unknown) *Return to ER if (units (unknown) date) you should have unknown) dizziness lightheadedness increasing pain (unknown) (no (unknown) (unknown) *What to do: At (units (unknown) date) this time I think unknown) the lumps in her breasts that you are feeling (unknown) (no (unknown) (unknown) *You have been (units (unknown) date) diagnosed with unknown) multiple pulmonary nodules (unknown) (no (unknown) (unknown) 0.25 mg PO BID-TID (units (unknown) date) PRN (Reason: unknown) anxiety) Qty: 10 0RF (unknown) (no (unknown) (unknown) 03/05/22 03/05/22 (units (unknown) date) 03/05/22 unknown) Range/Units (unknown) (no (unknown) (unknown) 03/05/22 10:32 (units (unknown) date) unknown) (unknown) (no (unknown) (unknown) 03/05/22 11:00 (units (unknown) date) unknown) (unknown) (no (unknown) (unknown) 03/05/22 11:44 (units (unknown) date) unknown) (unknown) (no (unknown) (unknown) 03/05/22 13:25 (units (unknown) date) unknown) (unknown) (no (unknown) (unknown) 03/05/22 (units (unkno wn) date) Range/Units unknown) (unknown) (no (unknown) (unknown) 03/05/22 (units (unkno wn) date) unknown) (unknown) (no (unknown) (unknown) 07/03/18 (units (unkno wn) date) unknown) (unknown) (no (unknown) (unknown) 1 patch TOP DAILY (units (unknown) date) Qty: 15 0RF unknown) (unknown) (no (unknown) (unknown) 1 puff INHALATION (units (unknown) date) Q6H PRN (Reason: unknown) Adequate Ventilation) (unknown) (no (unknown) (unknown) 1 tab PO Q4-6H PRN (units (unknown) date) (Reason: pain) Qty: unknown) 10 0RF (unknown) (no (unknown) (unknown) 1 tab PO Q4-6H PRN (units (unknown) date) (Reason: pain) Qty: unknown) 7 0RF (unknown) (no (unknown) (unknown) 1 tab PO Q6H PRN (units (unknown) date) (Reason: pain) Qty: unknown) 10 0RF (unknown) (no (unknown) (unknown) 1. No evidence of (units (unknown) date) acute process in unknown) the chest, abdomen, and pelvis. (unknown) (no (unknown) (unknown) 1. You have been (units (unknown) date) prescribed narcotic unknown) medications, it does have (unknown) (no (unknown) (unknown) 10:20 (units (unkno wn) date) unknown) (unknown) (no (unknown) (unknown) 11:00 11:44 11:44 (units (unknown) date) unknown) (unknown) (no (unknown) (unknown) 11:44 11:44 11:44 (units (unknown) date) unknown) (unknown) (no (unknown) (unknown) 11:44 (units (unkno wn) date) unknown) (unknown) (no (unknown) (unknown) 150 mg PO PRN PRN (units (unknown) date) (Reason: Acid unknown) Reflux) (unknown) (no (unknown) (unknown) 2. Multiple (units (un known) date) pulmonary nodules, unknown) all 3 mm or less.? Please see chart below for (unknown) (no (unknown) (unknown) 2. Please (units (unkn own) date) understand that we unknown) cannot provide further refills of narcotics, (unknown) (no (unknown) (unknown) 3. While on these (units (unknown) date) medications you unknown) cannot drive or operate heavy machinery. (unknown) (no (unknown) (unknown) 4 mg PO PRN PRN (units (unknown) date) (Reason: Nausea) unknown) Qty: 0 (unknown) (no (unknown) (unknown) 4 mg PO QID PRN (units (unknown) date) (Reason: nausea and unknown) vomiting) Qty: 14 2RF (unknown) (no (unknown) (unknown) 4 mg PO TID-QID (units (unknown) date) PRN (Reason: nausea unknown) and vomiting) Qty: 20 0RF (unknown) (no (unknown) (unknown) 4. You cannot sign (units (unknown) date) legal documents or unknown) perform any duties such as this. (unknown) (no (unknown) (unknown) 5. As long as (units ( unknown) date) you're taking unknown) opiate pain medications he should also be taking a (unknown) (no (unknown) (unknown) 6 mm or larger (units (unknown) date) (ground glass)CT at unknown) 6-12 months to confirm persistence, then CT (unknown) (no (unknown) (unknown) ? (units (unkno wn) date) unknown) (unknown) (no (unknown) (unknown) ABDOMEN: Soft, (units (unknown) date) nontender. unknown) Normoactive bowel sounds all 4 quadrants. No (unknown) (no (unknown) (unknown) ABDOMEN:? (units (unkn own) date) unknown) (unknown) (no (unknown) (unknown) ALT (<35) IU/L (units (unknown) date) unknown) (unknown) (no (unknown) (unknown) ALT 18 (<35) IU/L (units (unknown) date) unknown) (unknown) (no (unknown) (unknown) APTT (26-36) (units (u nknown) date) SECONDS unknown) (unknown) (no (unknown) (unknown) APTT 28 (26-36) (units (unknown) date) SECONDS unknown) (unknown) (no (unknown) (unknown) AST (14-36) IU/L (units (unknown) date) unknown) (unknown) (no (unknown) (unknown) AST 28 (14-36) (units (unknown) date) IU/L unknown) (unknown) (no (unknown) (unknown) Accession Number: (units (unknown) date) [id number] ?? unknown) (unknown) (no (unknown) (unknown) Accession Number: (units (unknown) date) [id number] ?? unknown) (unknown) (no (unknown) (unknown) Acct:[id number] (units (unknown) date) unknown) (unknown) (no (unknown) (unknown) Activity (units (unkno wn) date) Restrictions/Additi unknown) onal Instructions: (unknown) (no (unknown) (unknown) After the (units (unkn own) date) administration of unknown) intravenous contrast, 5 mm thick sections acquired (unknown) (no (unknown) (unknown) Age/Sex: 36 / F (units (unknown) date) unknown) (unknown) (no (unknown) (unknown) Albumin (3.5-5.0) (units (unknown) date) g/dL unknown) (unknown) (no (unknown) (unknown) Albumin 4.4 (units (un known) date) (3.5-5.0) g/dL unknown) (unknown) (no (unknown) (unknown) Albumin/Globulin (units (unknown) date) Ratio (1.0-2.8) unknown) (unknown) (no (unknown) (unknown) Albumin/Globulin (units (unknown) date) Ratio 1.3 (1.0-2.8) unknown) (unknown) (no (unknown) (unknown) Alkaline (units (unkno wn) date) Phosphatase unknown) (38-126) U/L (unknown) (no (unknown) (unknown) Alkaline (units (unkno wn) date) Phosphatase 47 unknown) (38-126) U/L (unknown) (no (unknown) (unknown) Allergies (units (unkn own) date) unknown) (unknown) (no (unknown) (unknown) Allergy/AdvReac (units (unknown) date) Type Severity unknown) Reaction Status Date / Time (unknown) (no (unknown) (unknown) Wes Thompson on (units (unknown) date) March 13 at unknown) 11:30 a.m. with check in at 11:15 a.m. (unknown) (no (unknown) (unknown) Asthma (units (unkno wn) date) unknown) (unknown) (no (unknown) (unknown) BREAST: Right (units ( unknown) date) breast 12:00 p.m. 1 unknown) cm lymph node like swelling painful to touch (unknown) (no (unknown) (unknown) BUN (7-17) mg/dL (units (unknown) date) unknown) (unknown) (no (unknown) (unknown) BUN 11 (7-17) (units ( unknown) date) mg/dL unknown) (unknown) (no (unknown) (unknown) BUN/Creatinine (units (unknown) date) Ratio (6-22) unknown) (unknown) (no (unknown) (unknown) BUN/Creatinine (units (unknown) date) Ratio 16.2 (6-22) unknown) (unknown) (no (unknown) (unknown) Baso # (Auto) (units ( unknown) date) (0-100) /uL unknown) (unknown) (no (unknown) (unknown) Baso # (Auto) 100 (units (unknown) date) (0-100) /uL unknown) (unknown) (no (unknown) (unknown) Baso % (Auto) (units ( unknown) date) (0-2) % unknown) (unknown) (no (unknown) (unknown) Baso % (Auto) 0.8 (units (unknown) date) (0-2) % unknown) (unknown) (no (unknown) (unknown) Blood Culture Stat (units (unknown) date) unknown) (unknown) (no (unknown) (unknown) Blood Pressure (units (unknown) date) 113/71 03/05/22 unknown) 10:20 (unknown) (no (unknown) (unknown) Blood Pressure (units (unknown) date) 113/71 unknown) (unknown) (no (unknown) (unknown) Bones and chest (units (unknown) date) wall:? No unknown) suspicious bony lesions.? Overlying soft tissues (unknown) (no (unknown) (unknown) Bones:? No (units (unk nown) date) suspicious bony unknown) lesions.? No vertebral body compression fractures.? (unknown) (no (unknown) (unknown) CARDIOVASCULAR: (units (unknown) date) Regular rate and unknown) rhythm without murmurs, rubs or gallops. (unknown) (no (unknown) (unknown) CHEST:? (units (unkno wn) date) unknown) (unknown) (no (unknown) (unknown) CK-MB (CK-2) Rel (units (unknown) date) Index TNP unknown) (unknown) (no (unknown) (unknown) CK-MB (CK-2) Rel (units (unknown) date) Index unknown) (unknown) (no (unknown) (unknown) CK-MB (CK-2) TNP (units (unknown) date) unknown) (unknown) (no (unknown) (unknown) CK-MB (CK-2) (units (u nknown) date) unknown) (unknown) (no (unknown) (unknown) COMPARISON:? (units (u nknown) date) [facility], unknown) CR, CHEST 2 VIEW, 12/16/2008, 21:11. (unknown) (no (unknown) (unknown) COMPARISON:? None. (units (unknown) date) unknown) (unknown) (no (unknown) (unknown) CONTROLLED (units (unk nown) date) SUBSTANCE DISCHARGE unknown) (Narcotoic/benzodia zepine/Flexeril/Phe nergan) (unknown) (no (unknown) (unknown) CT Scan Report (units (unknown) date) unknown) (unknown) (no (unknown) (unknown) CT chest abd pel w (units (unknown) date) con Stat unknown) (unknown) (no (unknown) (unknown) CT scan - chest: (units (unknown) date) unknown) (unknown) (no (unknown) (unknown) Calcium (8.4-10.2) (units (unknown) date) mg/dL unknown) (unknown) (no (unknown) (unknown) Calcium 9.2 (units (un known) date) (8.4-10.2) mg/dL unknown) (unknown) (no (unknown) (unknown) Carbon Dioxide (units (unknown) date) (22-32) mmol/L unknown) (unknown) (no (unknown) (unknown) Carbon Dioxide 29 (units (unknown) date) (22-32) mmol/L unknown) (unknown) (no (unknown) (unknown) Chest wall:? No (units (unknown) date) axillary or unknown) supraclavicular adenopathy by size criteria.? (unknown) (no (unknown) (unknown) Chest x-ray: (units (u nknown) date) unknown) (unknown) (no (unknown) (unknown) Chief Complaint: (units (unknown) date) Chest Pain unknown) (unknown) (no (unknown) (unknown) Chloride (98-107) (units (unknown) date) mmol/L unknown) (unknown) (no (unknown) (unknown) Chloride 104 (units (u nknown) date) (98-107) mmol/L unknown) (unknown) (no (unknown) (unknown) Clinical (units (unkno wn) date) Impression: unknown) (unknown) (no (unknown) (unknown) Complete Blood (units (unknown) date) Count AUTO DIFF unknown) Stat (unknown) (no (unknown) (unknown) Comprehensive (units ( unknown) date) Metabolic Panel unknown) Stat (unknown) (no (unknown) (unknown) Consult to [facility] [place] - (units (unknown) date) 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 unknown) Stat (unknown) (no (unknown) (unknown) Course (units (unkno wn) date) unknown) (unknown) (no (unknown) (unknown) Covid-19 + FLU A/B (units (unknown) date) + RSV - PCR Stat unknown) (unknown) (no (unknown) (unknown) Creatinine (units (unk nown) date) (0.52-1.04) mg/dL unknown) (unknown) (no (unknown) (unknown) Creatinine 0.68 (units (unknown) date) (0.52-1.04) mg/dL unknown) (unknown) (no (unknown) (unknown) : 1985 (units (unknown) date) Acct:[id number] unknown) (unknown) (no (unknown) (unknown) : 1985 (units (unknown) date) unknown) (unknown) (no (unknown) (unknown) Date of Service: (units (unknown) date) 03/05/22 unknown) (unknown) (no (unknown) (unknown) Departure (units (unkn own) date) unknown) (unknown) (no (unknown) (unknown) Dictated by: (units (u nknown) date) pilar Woods M.D. on 03/05/2022 at 10:54 ? (unknown) (no (unknown) (unknown) Dictated by: (units (u nknown) date) pilar Woods M.D. on 03/05/2022 at 12:54 ? ? (unknown) (no (unknown) (unknown) Discharge Plan (units (unknown) date) unknown) (unknown) (no (unknown) (unknown) ECG Data (units (unkno wn) date) unknown) (unknown) (no (unknown) (unknown) ED Orders (units (unkn own) date) unknown) (unknown) (no (unknown) (unknown) EKG-12 Lead Stat (units (unknown) date) unknown) (unknown) (no (unknown) (unknown) ER Physician: (units ( unknown) date) Danita Vila D.O. unknown) (unknown) (no (unknown) (unknown) EXTREMITIES: (units (u nknown) date) Normal range of unknown) motion, no clubbing or edema. Neurovascularly (unknown) (no (unknown) (unknown) Emergency Report (units (unknown) date) unknown) (unknown) (no (unknown) (unknown) Eos # (Auto) (units (u nknown) date) (0-450) /uL unknown) (unknown) (no (unknown) (unknown) Eos # (Auto) 200 (units (unknown) date) (0-450) /uL unknown) (unknown) (no (unknown) (unknown) Eos % (Auto) (2-4) (units (unknown) date) % unknown) (unknown) (no (unknown) (unknown) Eos % (Auto) 2.5 (units (unknown) date) (2-4) % unknown) (unknown) (no (unknown) (unknown) Estimated GFR > 60 (units (unknown) date) (>60) mL/min unknown) (unknown) (no (unknown) (unknown) Estimated GFR (units ( unknown) date) (>60) mL/min unknown) (unknown) (no (unknown) (unknown) Exam (units (unkno wn) date) unknown) (unknown) (no (unknown) (unknown) FINDINGS:? (units (unk nown) date) unknown) (unknown) (no (unknown) (unknown) Fleischner Society (units (unknown) date) criteria for SOLID unknown) lung nodule followup.? (unknown) (no (unknown) (unknown) Fleischner Society (units (unknown) date) criteria for unknown) SUB-SOLID lung nodule followup.? (unknown) (no (unknown) (unknown) GENERAL: Thin (units ( unknown) date) 36-year-old female unknown) (unknown) (no (unknown) (unknown) General (units (unkno wn) date) unknown) (unknown) (no (unknown) (unknown) Genitourinary:? (units (unknown) date) Bladder wall unknown) thickness is normal.? (unknown) (no (unknown) (unknown) Globulin (1.7-4.1) (units (unknown) date) g/dL unknown) (unknown) (no (unknown) (unknown) Globulin 3.3 (units (u nknown) date) (1.7-4.1) g/dL unknown) (unknown) (no (unknown) (unknown) Glucose (70-100) (units (unknown) date) mg/dL unknown) (unknown) (no (unknown) (unknown) Glucose 87 (units (unk nown) date) (70-100) mg/dL unknown) (unknown) (no (unknown) (unknown) H/O exploratory (units (unknown) date) laparotomy unknown) (unknown) (no (unknown) (unknown) H/O left knee (units ( unknown) date) surgery unknown) (unknown) (no (unknown) (unknown) HEENT: Head (units (un known) date) atraumatic,EOMI, unknown) pupils reactive, face symmetric, no cervical lymph (unknown) (no (unknown) (unknown) HPI - Chest Pain (units (unknown) date) unknown) (unknown) (no (unknown) (unknown) HPI narrative: (units (unknown) date) unknown) (unknown) (no (unknown) (unknown) Hct (36-46) % (units ( unknown) date) unknown) (unknown) (no (unknown) (unknown) Hct 35.5 L (36-46) (units (unknown) date) % unknown) (unknown) (no (unknown) (unknown) Hgb (12.0-16.0) (units (unknown) date) g/dL unknown) (unknown) (no (unknown) (unknown) Hgb 12.2 (units (unkno wn) date) (12.0-16.0) g/dL unknown) (unknown) (no (unknown) (unknown) History of Present (units (unknown) date) Illness unknown) (unknown) (no (unknown) (unknown) History of open (units (unknown) date) heart surgery unknown) (unknown) (no (unknown) (unknown) History of surgery (units (unknown) date) unknown) (unknown) (no (unknown) (unknown) Home Medications (units (unknown) date) unknown) (unknown) (no (unknown) (unknown) IMPRESSION:? No (units (unknown) date) evidence acute unknown) pulmonary process. (unknown) (no (unknown) (unknown) IMPRESSION:? (units (u nknown) date) unknown) (unknown) (no (unknown) (unknown) INDICATIONS:? (units ( unknown) date) chest pain unknown) (unknown) (no (unknown) (unknown) INDICATIONS:? (units ( unknown) date) weight loss, night unknown) sweats, bilateral breast lymphnodes (unknown) (no (unknown) (unknown) INR (0.9-1.3) (units ( unknown) date) unknown) (unknown) (no (unknown) (unknown) INR 1.0 (0.9-1.3) (units (unknown) date) unknown) (unknown) (no (unknown) (unknown) Image quality:? (units (unknown) date) Excellent.? unknown) (unknown) (no (unknown) (unknown) Imaging Data (units (u nknown) date) unknown) (unknown) (no (unknown) (unknown) Influenza A (units (un known) date) (RT-PCR) (NEGATIVE) unknown) (unknown) (no (unknown) (unknown) Influenza A (units (un known) date) (RT-PCR) Flu a unknown) negative (NEGATIVE) (unknown) (no (unknown) (unknown) Influenza B (units (un known) date) (RT-PCR) (NEGATIVE) unknown) (unknown) (no (unknown) (unknown) Influenza B (units (un known) date) (RT-PCR) Flu b unknown) negative (NEGATIVE) (unknown) (no (unknown) (unknown) Initial Vital (units ( unknown) date) Signs unknown) (unknown) (no (unknown) (unknown) Initial Vital (units ( unknown) date) Signs: unknown) (unknown) (no (unknown) (unknown) Instructions: DI (units (unknown) date) for Pulmonary unknown) Nodule (unknown) (no (unknown) (unknown) Interpretation: (units (unknown) date) unknown) (unknown) (no (unknown) (unknown) [facility] (units (unknown) date) [address] unknown) [place] [address] (unknown) (no (unknown) (unknown) Kidneys (units (unkno wn) date) demonstrate normal unknown) size and enhancement, without hydronephrosis.? (unknown) (no (unknown) (unknown) Lab Data (units (unkno wn) date) unknown) (unknown) (no (unknown) (unknown) Lab Results (units (un known) date) unknown) (unknown) (no (unknown) (unknown) Labs: (units (unkno wn) date) unknown) (unknown) (no (unknown) (unknown) Lactate (0.7-2.1) (units (unknown) date) mmol/L unknown) (unknown) (no (unknown) (unknown) Lactate (Lactic (units (unknown) date) Acid) Stat unknown) (unknown) (no (unknown) (unknown) Lactate 0.9 (units (un known) date) (0.7-2.1) mmol/L unknown) (unknown) (no (unknown) (unknown) Left breast 12:00 (units (unknown) date) p.m. 1 cm painful unknown) lymph node like swelling non erythematous (unknown) (no (unknown) (unknown) Lipase (23-300) (units (unknown) date) U/L unknown) (unknown) (no (unknown) (unknown) Lipase 187 (units (unk nown) date) (23-300) U/L unknown) (unknown) (no (unknown) (unknown) Lipase Stat (units (un known) date) unknown) (unknown) (no (unknown) (unknown) Loc: ED (units (unkno wn) date) unknown) (unknown) (no (unknown) (unknown) Lungs and pleura:? (units (unknown) date) Lungs are clear.? unknown) No pleural effusions or pneumothorax.? (unknown) (no (unknown) (unknown) Lungs and pleura:? (units (unknown) date) No acute airspace unknown) opacities.? There are 3 probable small (unknown) (no (unknown) (unknown) Lymph # (Auto) (units (unknown) date) (6981-6407) /uL unknown) (unknown) (no (unknown) (unknown) Lymph # (Auto) (units (unknown) date) 1400 (2903-4789) unknown) /uL (unknown) (no (unknown) (unknown) Lymph % (Auto) (units (unknown) date) (25-40) % unknown) (unknown) (no (unknown) (unknown) Lymph % (Auto) (units (unknown) date) 20.6 L (25-40) % unknown) (unknown) (no (unknown) (unknown) [id number] (units (unk nown) date) unknown) (unknown) (no (unknown) (unknown) MCH (26-34) PG (units (unknown) date) unknown) (unknown) (no (unknown) (unknown) MCH 30.9 (26-34) (units (unknown) date) PG unknown) (unknown) (no (unknown) (unknown) MCHC (30-36) % (units (unknown) date) unknown) (unknown) (no (unknown) (unknown) MCHC 34.3 (30-36) (units (unknown) date) % unknown) (unknown) (no (unknown) (unknown) MCV (80-100) fL (units (unknown) date) unknown) (unknown) (no (unknown) (unknown) MCV 90.0 (80-100) (units (unknown) date) fL unknown) (unknown) (no (unknown) (unknown) MDM - Chest Pain (units (unknown) date) unknown) (unknown) (no (unknown) (unknown) MDM Narrative (units ( unknown) date) unknown) (unknown) (no (unknown) (unknown) MDM (units (unkno wn) date) unknown) (unknown) (no (unknown) (unknown) MR#: [id number] (units (unknown) date) unknown) (unknown) (no (unknown) (unknown) Magnesium (units (unkn own) date) (1.6-2.3) mg/dL unknown) (unknown) (no (unknown) (unknown) Magnesium 1.9 (units ( unknown) date) (1.6-2.3) mg/dL unknown) (unknown) (no (unknown) (unknown) Magnesium Stat (units (unknown) date) unknown) (unknown) (no (unknown) (unknown) Mediastinum:? Heart (units (unknown) date) size is normal.? No unknown) pericardial effusion.? No mediastinal or (unknown) (no (unknown) (unknown) Mediastinum:? (units ( unknown) date) Mediastinal unknown) contours appear normal.? Heart size is normal.? (unknown) (no (unknown) (unknown) Medical History (units (unknown) date) (Updated 03/05/22 @ unknown) 13:36 by Danita Vila DO) (unknown) (no (unknown) (unknown) Medical decision (units (unknown) date) making narrative: unknown) (unknown) (no (unknown) (unknown) Medication (units (unk nown) date) Instructions unknown) Recorded Confirmed (unknown) (no (unknown) (unknown) Medication (units (unk nown) date) Instructions unknown) Recorded (unknown) (no (unknown) (unknown) Miscellaneous:? No (units (unknown) date) inguinal hernias or unknown) adenopathy.? Retroverted uterus. (unknown) (no (unknown) (unknown) Miscellaneous:? No (units (unknown) date) ventral hernias.? unknown) (unknown) (no (unknown) (unknown) [place] # (Auto) (units ( unknown) date) (0-900) /uL unknown) (unknown) (no (unknown) (unknown) [place] # (Auto) 500 (units (unknown) date) (0-900) /uL unknown) (unknown) (no (unknown) (unknown) [place] % (Auto) (units ( unknown) date) (3-14) % unknown) (unknown) (no (unknown) (unknown) [place] % (Auto) 8.0 (units (unknown) date) (3-14) % unknown) (unknown) (no (unknown) (unknown) Multiple (units (unkno wn) date) unknown) (unknown) (no (unknown) (unknown) NEUROLOGICAL: (units ( unknown) date) Alert and oriented unknown) x4.Normal gait and speech. (unknown) (no (unknown) (unknown) Neut # (Auto) (units ( unknown) date) (2076-7295) /uL unknown) (unknown) (no (unknown) (unknown) Neut # (Auto) 4500 (units (unknown) date) (8728-9325) /uL unknown) (unknown) (no (unknown) (unknown) Neut % (Auto) (units ( unknown) date) (50-75) % unknown) (unknown) (no (unknown) (unknown) Neut % (Auto) 68.1 (units (unknown) date) (50-75) % unknown) (unknown) (no (unknown) (unknown) New (units (unkno wn) date) unknown) (unknown) (no (unknown) (unknown) No Action (units (unkn own) date) unknown) (unknown) (no (unknown) (unknown) No (units (unkno wn) date) unknown) (unknown) (no (unknown) (unknown) Nodes and (units (unkn own) date) vessels:? No unknown) retroperitoneal or mesenteric adenopathy by size (unknown) (no (unknown) (unknown) Nodule size (units (un known) date) (mm)Low-risk unknown) patientHigh-risk patient<6 (single or multiple)No (unknown) (no (unknown) (unknown) [place] 1 tablet (units (unknown) date) every 6 hours if unknown) needed for severe pain (unknown) (no (unknown) (unknown) Ondansetron (units (un known) date) (Zofran Odt) 4 mg unknown) PO PRN PRN Nausea ##0 07/06/10 07/03/18 (unknown) (no (unknown) (unknown) Ondansetron (units (un known) date) (Zofran Odt) tablet unknown) (unknown) (no (unknown) (unknown) Ordered: (units (unkno wn) date) unknown) (unknown) (no (unknown) (unknown) Ordering Provider: (units (unknown) date) Danita Vila D.O. unknown) (unknown) (no (unknown) (unknown) Orders (units (unkno wn) date) unknown) (unknown) (no (unknown) (unknown) Oxygen Delivery (units (unknown) date) Method 03/05/22 unknown) 10:20 (unknown) (no (unknown) (unknown) Oxygen Delivery (units (unknown) date) Method Room Air unknown) (unknown) (no (unknown) (unknown) PCP. Social work (units (unknown) date) consulted to help unknown) set up for follow-up with PCP. (unknown) (no (unknown) (unknown) PELVIS:? (units (unkno wn) date) unknown) (unknown) (no (unknown) (unknown) PROCEDURE:? CT (units (unknown) date) CHEST ABD PEL W CON unknown) (unknown) (no (unknown) (unknown) PROCEDURE:? XR (units (unknown) date) CHEST 1V unknown) (unknown) (no (unknown) (unknown) PT (10.1-12.7) (units (unknown) date) SECONDS unknown) (unknown) (no (unknown) (unknown) PT 11.7 (units (unkno wn) date) (10.1-12.7) SECONDS unknown) (unknown) (no (unknown) (unknown) Pancreas (units (unkno wn) date) unknown) (unknown) (no (unknown) (unknown) Partial (units (unkno wn) date) Thromboplastin Time unknown) Stat (unknown) (no (unknown) (unknown) Patient (units (unkno wn) date) Disposition: Home unknown) (unknown) (no (unknown) (unknown) Patient History (units (unknown) date) unknown) (unknown) (no (unknown) (unknown) Patient healthy (units (unknown) date) 36-year-old female unknown) presenting today with bilateral breast lumps (unknown) (no (unknown) (unknown) Patient is a (units (un known) date) healthy 36-year-old unknown) female who presents with a variety of symptoms. (unknown) (no (unknown) (unknown) Patient: (units (unkno wn) date) CastilloCarmina A unknown) MR#: (unknown) (no (unknown) (unknown) Patient: (units (unkno wn) date) GaylaCarmina A unknown) (unknown) (no (unknown) (unknown) Penicillins (units (un known) date) Allergy unknown) Intermediate Rash Verified 03/05/22 10:24 (unknown) (no (unknown) (unknown) Peritoneum and (units (unknown) date) bowel:? Bowel loops unknown) demonstrate normal wall thickness and (unknown) (no (unknown) (unknown) Pertussis Vaccines (units (unknown) date) Allergy Unknown unknown) Seizure Verified 03/05/22 10:24 (unknown) (no (unknown) (unknown) Plt Count (units (unkn own) date) (150-400) X103/uL unknown) (unknown) (no (unknown) (unknown) Plt Count 229 (units ( unknown) date) (150-400) X103/uL unknown) (unknown) (no (unknown) (unknown) Potassium (units (unkn own) date) (3.4-5.1) mmol/L unknown) (unknown) (no (unknown) (unknown) Potassium 4.0 (units ( unknown) date) (3.4-5.1) mmol/L unknown) (unknown) (no (unknown) (unknown) Prescriptions: (units (unknown) date) unknown) (unknown) (no (unknown) (unknown) Previous Rx's (units ( unknown) date) unknown) (unknown) (no (unknown) (unknown) Procalcitonin (units ( unknown) date) (<0.5) ng/mL unknown) (unknown) (no (unknown) (unknown) Procalcitonin 0.04 (units (unknown) date) (<0.5) ng/mL unknown) (unknown) (no (unknown) (unknown) Procalcitonin Stat (units (unknown) date) unknown) (unknown) (no (unknown) (unknown) Procedure: CT (units ( unknown) date) chest abd pel w con unknown) (unknown) (no (unknown) (unknown) Procedure: XR (units ( unknown) date) chest 1V unknown) (unknown) (no (unknown) (unknown) Prothrombin Time (units (unknown) date) INR Stat unknown) (unknown) (no (unknown) (unknown) Pulmonary nodule (units (unknown) date) unknown) (unknown) (no (unknown) (unknown) Pulse Oximetry 100 (units (unknown) date) 03/05/22 10:20 unknown) (unknown) (no (unknown) (unknown) Pulse Oximetry 100 (units (unknown) date) unknown) (unknown) (no (unknown) (unknown) Pulse Rate 63 (units ( unknown) date) 03/05/22 10:20 unknown) (unknown) (no (unknown) (unknown) Pulse Rate 63 (units ( unknown) date) unknown) (unknown) (no (unknown) (unknown) RBC (4.0-5.2) (units ( unknown) date) X106/uL unknown) (unknown) (no (unknown) (unknown) RBC 3.94 L (units (unk nown) date) (4.0-5.2) X106/uL unknown) (unknown) (no (unknown) (unknown) RDW (11.6-14.8) % (units (unknown) date) unknown) (unknown) (no (unknown) (unknown) RDW 12.1 (units (unkno wn) date) (11.6-14.8) % unknown) (unknown) (no (unknown) (unknown) RESPIRATORY: (units (u nknown) date) Breath sounds equal unknown) bilaterally, no wheezes rales or rhonchi. (unknown) (no (unknown) (unknown) ROS Unobtainable: (units (unknown) date) All systems unknown) reviewed + are unremarkable except as noted in HPI (unknown) (no (unknown) (unknown) RSV (PCR) (units (unkn own) date) (Negative) unknown) (unknown) (no (unknown) (unknown) RSV (PCR) Negative (units (unknown) date) (Negative) unknown) (unknown) (no (unknown) (unknown) Radiologist's (units ( unknown) date) Impression: unknown) (unknown) (no (unknown) (unknown) Kitchen Aide (units (unkno wn) date) (ranitidine)) unknown) (unknown) (no (unknown) (unknown) Referrals: (units (unk nown) date) unknown) (unknown) (no (unknown) (unknown) Related Data (units (u nknown) date) unknown) (unknown) (no (unknown) (unknown) Respiratory Rate (units (unknown) date) 16 03/05/22 10:20 unknown) (unknown) (no (unknown) (unknown) Respiratory Rate (units (unknown) date) 16 unknown) (unknown) (no (unknown) (unknown) Result diagrams: (units (unknown) date) unknown) (unknown) (no (unknown) (unknown) Review of Systems (units (unknown) date) unknown) (unknown) (no (unknown) (unknown) Wes Herrera ARNP (units (unknown) date) [Advanced Practice unknown) Clinician] (unknown) (no (unknown) (unknown) Rx Instructions: (units (unknown) date) unknown) (unknown) (no (unknown) (unknown) S/P laparoscopic (units (unknown) date) supracervical unknown) hysterectomy (04/04/18) (unknown) (no (unknown) (unknown) SARS-CoV-2 (PCR) (units (unknown) date) (Negative) unknown) (unknown) (no (unknown) (unknown) SARS-CoV-2 (PCR) (units (unknown) date) Negative (Negative) unknown) (unknown) (no (unknown) (unknown) SKIN: Warm, dry, (units (unknown) date) no laceration, no unknown) petechiae, no rashes or lesions. (unknown) (no (unknown) (unknown) Daniel Ghosh DO (units (unknown) date) [Primary Care unknown) Provider] (unknown) (no (unknown) (unknown) She did have open (units (unknown) date) heart surgery for unknown) what was thought to be in abnormal valve (unknown) (no (unknown) (unknown) She reports that (units (unknown) date) she is had about a unknown) 12 lb weight loss since . She (unknown) (no (unknown) (unknown) Signed By: (units (unk nown) date) unknown) (unknown) (no (unknown) (unknown) Signed (units (unkno wn) date) unknown) (unknown) (no (unknown) (unknown) Sinus rhythm rate (units (unknown) date) 47 AR interval 130 unknown) QRS 96 QTC 364 changes no T-wave inversions (unknown) (no (unknown) (unknown) Smoking Status: (units (unknown) date) Former smoker unknown) (unknown) (no (unknown) (unknown) Social History (units (unknown) date) (Reviewed 03/05/22 unknown) @ 11:22 by Danita Vila DO) (unknown) (no (unknown) (unknown) Sodium (137-145) (units (unknown) date) mmol/L unknown) (unknown) (no (unknown) (unknown) Sodium 139 (units (unk nown) date) (137-145) mmol/L unknown) (unknown) (no (unknown) (unknown) Solid organs:? (units (unknown) date) Liver is normal in unknown) size and enhancement.? Gallbladder is (unknown) (no (unknown) (unknown) Solitary pure (units (u nknown) date) ground-glass unknown) nodules<6 mm (ground glass or part solid)No followup (unknown) (no (unknown) (unknown) Stand Alone Forms: (units (unknown) date) Patient Portal/API unknown) (unknown) (no (unknown) (unknown) Stated Complaint: (units (unknown) date) pain in chest, unknown) sternum hurts, cough (unknown) (no (unknown) (unknown) Substance Use (units ( unknown) date) Type: marijuana unknown) (unknown) (no (unknown) (unknown) Surgical History (units (unknown) date) (Reviewed 03/05/22 unknown) @ 11:22 by Danita Vila DO) (unknown) (no (unknown) (unknown) Surgical changes (units (unknown) date) and devices:? unknown) None.? (unknown) (no (unknown) (unknown) TECHNIQUE:? One (units (unknown) date) view of the chest unknown) was acquired.? (unknown) (no (unknown) (unknown) TECHNIQUE:? (units (un known) date) unknown) (unknown) (no (unknown) (unknown) TSH (0.47-4.68) (units (unknown) date) uIU/mL unknown) (unknown) (no (unknown) (unknown) TSH 0.894 (units (unkn own) date) (0.47-4.68) uIU/mL unknown) (unknown) (no (unknown) (unknown) TSH [Thyroid (units (u nknown) date) Stimulating unknown) Hormone] Stat (unknown) (no (unknown) (unknown) Temperature 97 F L (units (unknown) date) 03/05/22 10:20 unknown) (unknown) (no (unknown) (unknown) Temperature 97 F L (units (unknown) date) unknown) (unknown) (no (unknown) (unknown) Thyroid gland (units ( unknown) date) unknown) (unknown) (no (unknown) (unknown) Time Seen by (units (u nknown) date) Provider: 03/05/22 unknown) 10:35 (unknown) (no (unknown) (unknown) Total Bilirubin (units (unknown) date) (0.2-1.3) mg/dL unknown) (unknown) (no (unknown) (unknown) Total Bilirubin (units (unknown) date) 0.5 (0.2-1.3) mg/dL unknown) (unknown) (no (unknown) (unknown) Total Creatine (units (unknown) date) Kinase (30-135) U/L unknown) (unknown) (no (unknown) (unknown) Total Creatine (units (unknown) date) Kinase 88 (30-135) unknown) U/L (unknown) (no (unknown) (unknown) Total Protein (units ( unknown) date) (6.3-8.2) g/dL unknown) (unknown) (no (unknown) (unknown) Total Protein 7.7 (units (unknown) date) (6.3-8.2) g/dL unknown) (unknown) (no (unknown) (unknown) Troponin + CK (units ( unknown) date) Cardiac Panel Stat unknown) (unknown) (no (unknown) (unknown) Troponin I (units (unk nown) date) (0.01-0.034) ng/mL unknown) (unknown) (no (unknown) (unknown) Troponin I 0.015 (units (unknown) date) (0.01-0.034) ng/mL unknown) (unknown) (no (unknown) (unknown) Upset (units (unkno wn) date) unknown) (unknown) (no (unknown) (unknown) Vital Signs - 8 hr (units (unknown) date) unknown) (unknown) (no (unknown) (unknown) Vital Signs (units (un known) date) unknown) (unknown) (no (unknown) (unknown) Vital signs: (units (u nknown) date) unknown) (unknown) (no (unknown) (unknown) WBC (4.5-11.0) (units (unknown) date) X103/uL unknown) (unknown) (no (unknown) (unknown) WBC 6.6 (4.5-11.0) (units (unknown) date) X103/uL unknown) (unknown) (no (unknown) (unknown) XR chest 1V Stat (units (unknown) date) unknown) (unknown) (no (unknown) (unknown) XRay Report (units (un known) date) unknown) (unknown) (no (unknown) (unknown) [Embedded Image (units (unknown) date) Not Available] unknown) (unknown) (no (unknown) (unknown) [PERTUSSIS (units (unk nown) date) VACCINES] unknown) (unknown) (no (unknown) (unknown) according to (units (u nknown) date) unknown) (unknown) (no (unknown) (unknown) acetaminophen/Tyle (units (unknown) date) nol/paracetamol in unknown) it, DO NOT TAKE MORE THAN 4,00mg in 24 (unknown) (no (unknown) (unknown) additional 7 mm (units (unknown) date) MIP reformats unknown) through the lungs.? For radiation dose reduction, (unknown) (no (unknown) (unknown) additional (units (unk nown) date) outpatient follow unknown) up (unknown) (no (unknown) (unknown) adenopathy by size (units (unknown) date) criteria.? Thoracic unknown) aorta and central pulmonary arteries are (unknown) (no (unknown) (unknown) aerosol inhaler (units (unknown) date) (ProAir HFA) unknown) Ventilation (unknown) (no (unknown) (unknown) albuterol sulfate (units (unknown) date) 90 mcg/actuation 1 unknown) puff inhalation Q6H PRN Adequate 11/14/17 (unknown) (no (unknown) (unknown) albuterol sulfate (units (unknown) date) [ProAir HFA] 90 unknown) mcg/actuation HFA aerosol inhaler (unknown) (no (unknown) (unknown) alcohol intake (units (unknown) date) frequency: 0-2 unknown) drinks per day (unknown) (no (unknown) (unknown) alprazolam 0.25 mg (units (unknown) date) tablet (Xanax) 0.25 unknown) mg PO BID-TID PRN anxiety #10 03/18/18 (unknown) (no (unknown) (unknown) alprazolam [Xanax] (units (unknown) date) 0.25 mg tablet unknown) (unknown) (no (unknown) (unknown) amoxicillin (units (un known) date) Allergy unknown) Intermediate Rash, Verified 03/05/22 10:24 (unknown) (no (unknown) (unknown) and below (units (unkn own) date) unknown) (unknown) (no (unknown) (unknown) and inferior vena (units (unknown) date) cava are normal in unknown) size.? (unknown) (no (unknown) (unknown) and (units (unkno wn) date) unknown) (unknown) (no (unknown) (unknown) appear (units (unkno wn) date) unknown) (unknown) (no (unknown) (unknown) approximately 3 (units (unknown) date) unknown) (unknown) (no (unknown) (unknown) are probably lymph (units (unknown) date) nodes. I recommend unknown) ice 20-30 minutes at a time. You will (unknown) (no (unknown) (unknown) axilla no (units (unkn own) date) abnormality unknown) (unknown) (no (unknown) (unknown) azithromycin (units (u nknown) date) Allergy unknown) Intermediate Gastrointestinal Verified 03/05/22 10:24 (unknown) (no (unknown) (unknown) been reviewed with (units (unknown) date) patient as well as unknown) indications for ED re-evaluation and (unknown) (no (unknown) (unknown) benzodiazepines or (units (unknown) date) controlled unknown) substances through the ED and her pain management (unknown) (no (unknown) (unknown) bilaterally. There (units (unknown) date) painful to touch. unknown) She has had a sore throat little bit of a (unknown) (no (unknown) (unknown) caliber.? No (units (u nknown) date) unknown) (unknown) (no (unknown) (unknown) ciprofloxacin (units ( unknown) date) Allergy unknown) Intermediate Gastrointestinal Verified 03/05/22 10:24 (unknown) (no (unknown) (unknown) constipation. (units ( unknown) date) unknown) (unknown) (no (unknown) (unknown) contracted, (units (un known) date) unknown) (unknown) (no (unknown) (unknown) cough. No (units (unkn own) date) abdominal pain unknown) nausea vomiting painful or frequent urination. No (unknown) (no (unknown) (unknown) criteria.? Aorta (units (unknown) date) unknown) (unknown) (no (unknown) (unknown) enhances (units (unkno wn) date) normally.? Spleen unknown) is normal in size and enhancement.? No adrenal (unknown) (no (unknown) (unknown) every 2 (units (unkno wn) date) unknown) (unknown) (no (unknown) (unknown) fevers passing out (units (unknown) date) or any new, unknown) worsening or concerning symptoms (unknown) (no (unknown) (unknown) fissural (units (unkno wn) date) unknown) (unknown) (no (unknown) (unknown) follow-up (units (unkn own) date) unknown) (unknown) (no (unknown) (unknown) following was (units ( unknown) date) used:? automated unknown) exposure control, adjustment of mA and/or kV (unknown) (no (unknown) (unknown) followup.Optional (units (unknown) date) CT at 12 months. unknown) 6-8 (single or multiple)CT at 6-12 months, (unknown) (no (unknown) (unknown) free fluid or (units ( unknown) date) air.? unknown) (unknown) (no (unknown) (unknown) from the (units (unkno wn) date) unknown) (unknown) (no (unknown) (unknown) gluten AdvReac (units (unknown) date) Mild Stomach unknown) Verified 03/05/22 10:24 (unknown) (no (unknown) (unknown) guarding or (units (un known) date) rebound. unknown) (unknown) (no (unknown) (unknown) has night sweats. (units (unknown) date) Kids have been sick unknown) off and on for couple of weeks. However (unknown) (no (unknown) (unknown) headache (units (unkno wn) date) unknown) (unknown) (no (unknown) (unknown) hilar (units (unkno wn) date) unknown) (unknown) (no (unknown) (unknown) hours of Tylenol. (units (unknown) date) unknown) (unknown) (no (unknown) (unknown) household members: (units (unknown) date) spouse and children unknown) (unknown) (no (unknown) (unknown) hydrocodone 5 (units ( unknown) date) mg-acetaminophen unknown) 325 1 tab PO Q4-6H PRN pain #10 tabs 05/19/18 (unknown) (no (unknown) (unknown) hydrocodone 5 (units ( unknown) date) mg-acetaminophen unknown) 325 1 tab PO Q4-6H PRN pain #7 tabs 06/02/18 (unknown) (no (unknown) (unknown) hydrocodone 5 (units ( unknown) date) mg-acetaminophen unknown) 325 1 tab PO Q6H PRN pain #10 tabs 03/05/22 (unknown) (no (unknown) (unknown) hydrocodone-acetam (units (unknown) date) inophen 5-325 mg unknown) tablet (unknown) (no (unknown) (unknown) hydromorphone (units ( unknown) date) Allergy Mild unknown) Flushing Verified 03/05/22 10:24 (unknown) (no (unknown) (unknown) ibuprofen Allergy (units (unknown) date) Mild Kidney unknown) Verified 03/05/22 10:24 (unknown) (no (unknown) (unknown) immunosuppression, (units (unknown) date) or patients with unknown) known primary cancer. (unknown) (no (unknown) (unknown) infection (units (unkn own) date) unknown) (unknown) (no (unknown) (unknown) intact (units (unkno wn) date) unknown) (unknown) (no (unknown) (unknown) is unremarkable .? (units (unknown) date) unknown) (unknown) (no (unknown) (unknown) last week she and (units (unknown) date) her both unknown) noticed some lumps in her breasts (unknown) (no (unknown) (unknown) leave on most (units ( unknown) date) painful area for 12 unknown) hrs (unknown) (no (unknown) (unknown) lidocaine 5 % (units ( unknown) date) adhesive unknown) patch,medicated (unknown) (no (unknown) (unknown) lidocaine 5 % (units ( unknown) date) topical patch 1 unknown) patch topical DAILY #15 ea 06/02/18 (unknown) (no (unknown) (unknown) limits TSH is 0.89 (units (unknown) date) unknown) (unknown) (no (unknown) (unknown) lung apices to the (units (unknown) date) symphysis.? 5 mm unknown) coronal and sagittal reformats were (unknown) (no (unknown) (unknown) lymph nodes in the (units (unknown) date) major fissure of unknown) the right lung.? They each measure (unknown) (no (unknown) (unknown) lymphadenitis (units ( unknown) date) unknown) (unknown) (no (unknown) (unknown) mg tablet (units (unkn own) date) unknown) (unknown) (no (unknown) (unknown) mm.? There is a 3 (units (unknown) date) mm subpleural unknown) pulmonary nodule in the extreme left lung base.? (unknown) (no (unknown) (unknown) months, PET-CT, or (units (unknown) date) biopsy. Same as for unknown) low-risk pts.? >8 (multiple)CT at 3-6 (unknown) (no (unknown) (unknown) months, then (units (u nknown) date) unknown) (unknown) (no (unknown) (unknown) multiple pulmonary (units (unknown) date) nodules. Unclear if unknown) this is infectious or cancerous. At (unknown) (no (unknown) (unknown) nausea, (units (unkno wn) date) unknown) (unknown) (no (unknown) (unknown) need a repeat (units ( unknown) date) chest CT in 3-6 unknown) months with her PCP plus or minus a mammogram. (unknown) (no (unknown) (unknown) needed.? (units (unkno wn) date) unknown) (unknown) (no (unknown) (unknown) nickel AdvReac (units (unknown) date) Mild Irritation/ unknown) Verified 03/05/22 10:24 (unknown) (no (unknown) (unknown) no erythema no (units (unknown) date) lymph nodes in unknown) axilla (unknown) (no (unknown) (unknown) node (units (unkno wn) date) unknown) (unknown) (no (unknown) (unknown) nodules.? (units (unkn own) date) unknown) (unknown) (no (unknown) (unknown) normal in (units (unkn own) date) caliber.? unknown) (unknown) (no (unknown) (unknown) normal in (units (unkn own) date) unknown) (unknown) (no (unknown) (unknown) ondansetron 4 mg (units (unknown) date) disintegrating 4 mg unknown) PO QID PRN nausea and 04/05/18 (unknown) (no (unknown) (unknown) ondansetron 4 mg (units (unknown) date) disintegrating 4 mg unknown) PO TID-QID PRN nausea and 06/02/18 (unknown) (no (unknown) (unknown) ondansetron 4 mg (units (unknown) date) tablet,disintegrati unknown) ng (unknown) (no (unknown) (unknown) optional CT at (units (unknown) date) 18-24 mo.CT at 3-6 unknown) months, then CT at 18-24 months.? (unknown) (no (unknown) (unknown) optional CT at (units (unknown) date) 18-24 mo.CT at 6-12 unknown) months, then CT at 18-24 months.? >8 (unknown) (no (unknown) (unknown) or anemia (units (unkn own) date) electrolytes are unknown) within normal limits kidney function within normal (unknown) (no (unknown) (unknown) other pain. She is (units (unknown) date) not had a unknown) mammogram. No cancer history that she knows of. (unknown) (no (unknown) (unknown) pain, (units (unkno wn) date) unknown) (unknown) (no (unknown) (unknown) patient size.? (units (unknown) date) unknown) (unknown) (no (unknown) (unknown) patients with (units ( unknown) date) unknown) (unknown) (no (unknown) (unknown) patients. 6 mm or (units (unknown) date) larger.? CT at 3-6 unknown) months. Subsequent management based on most (unknown) (no (unknown) (unknown) performed, with (units (unknown) date) unknown) (unknown) (no (unknown) (unknown) persistence, (units (u nknown) date) unknown) (unknown) (no (unknown) (unknown) pleural effusions (units (unknown) date) or pneumothorax.? unknown) Central and peripheral airways appear patent (unknown) (no (unknown) (unknown) ranitidine HCl 150 (units (unknown) date) mg tablet (Acid 150 unknown) mg PO PRN PRN Acid Reflux 04/05/18 (unknown) (no (unknown) (unknown) ranitidine HCl (units (unknown) date) [Acid Kitchen Aide unknown) (ranitidine)] 150 mg Tablet (unknown) (no (unknown) (unknown) recommendations. (units (unknown) date) unknown) (unknown) (no (unknown) (unknown) redness (units (unkno wn) date) unknown) (unknown) (no (unknown) (unknown) risk (units (unkno wn) date) unknown) (unknown) (no (unknown) (unknown) routine (units (unkno wn) date) unknown) (unknown) (no (unknown) (unknown) signs of sepsis. (units (unknown) date) TSH is slightly low unknown) at 0.8. CT chest abdomen pelvis does show (unknown) (no (unknown) (unknown) size.? Esophagus (units (unknown) date) is normal in unknown) caliber.? No hiatal hernia.? (unknown) (no (unknown) (unknown) stool softener (units (unknown) date) such as Colace, unknown) Dulcolax, MiraLAX or prune juice, to help avoid (unknown) (no (unknown) (unknown) sub-solid nodules<6 (units (unknown) date) mmCT at 3-6 months, unknown) then CT consider at 2 + 4 years for high (unknown) (no (unknown) (unknown) suspicious (units (unk nown) date) lesions. unknown) Recommendations do not apply to lung cancer screening, (unknown) (no (unknown) (unknown) tablet vomiting (units (unknown) date) #14 tabs unknown) (unknown) (no (unknown) (unknown) tablet vomiting (units (unknown) date) #20 tabs unknown) (unknown) (no (unknown) (unknown) tabs (units (unkno wn) date) unknown) (unknown) (no (unknown) (unknown) the (units (unkno wn) date) unknown) (unknown) (no (unknown) (unknown) then annual CT (units ( unknown) date) until 5 years if unknown) unchanged and solid component remains <6 mm.? (unknown) (no (unknown) (unknown) then (units (unkno wn) date) unknown) (unknown) (no (unknown) (unknown) this time she will (units (unknown) date) need close unknown) outpatient follow-up. Patient does not have a (unknown) (no (unknown) (unknown) throat was (units (unk nown) date) unknown) (unknown) (no (unknown) (unknown) tingly (units (unkno wn) date) unknown) (unknown) (no (unknown) (unknown) touch both and 12 (units (unknown) date) o'clock position. unknown) Blood work is overall reassuring without (unknown) (no (unknown) (unknown) underlying cancer. (units (unknown) date) However a both unknown) breast lumps feel like lymph nodes tender to (unknown) (no (unknown) (unknown) unremarkable, (units ( unknown) date) without calcified unknown) stones .? Biliary system is non dilated.? (unknown) (no (unknown) (unknown) unremarkable.? (units (unknown) date) unknown) (unknown) (no (unknown) (unknown) up she will need (units (unknown) date) repeat chest CT. unknown) (unknown) (no (unknown) (unknown) when she was in (units (unknown) date) her 20s however it unknown) turned out to be a false alarm (unknown) (no (unknown) (unknown) which are painful (units (unknown) date) weight loss and unknown) night sweats. Certainly concern is for some (unknown) (no (unknown) (unknown) will need to be (units (unknown) date) through your unknown) provider. (unknown) (no (unknown) (unknown) wondering baseline (units (unknown) date) noted unknown) (unknown) (no (unknown) (unknown) years until 5 (units ( unknown) date) years.6 mm or unknown) larger (part solid)CT at 3-6 months to confirm Result panel 568 (unknown) (no (unknown) (unknown) (no value) (units (unk nown) date) unknown) (unknown) (no (unknown) (unknown) <Electronically (units (unknown) date) signed by Danita unknown) Botnick, D.O.> (unknown) (no (unknown) (unknown) (single)CT at 3 (units (unknown) date) unknown) (unknown) (no (unknown) (unknown) * Clinical (units (unk nown) date) Decision unknown) Rules/Scores evaluated: None (unknown) (no (unknown) (unknown) * Independent (units ( unknown) date) discussions with: unknown) Not (unknown) (no (unknown) (unknown) * My imaging (units (u nknown) date) interpretation: CT unknown) chest abdomen pelvis as above (unknown) (no (unknown) (unknown) * My lab (units (unkno wn) date) interpretation: unknown) Blood work reassuring. CBC is 6.6 without left shift (unknown) (no (unknown) (unknown) * Prior records (units (unknown) date) reviewed: Previous unknown) visits from 2019 (unknown) (no (unknown) (unknown) * Shared Decision (units (unknown) date) Making: and unknown) patient (unknown) (no (unknown) (unknown) * Social (units (unkno wn) date) Considerations: No unknown) PCP, [facility] consultation help set up for good follow (unknown) (no (unknown) (unknown) * differential (units (unknown) date) diagnosis includes unknown) but not limited to: Cancer infection (unknown) (no (unknown) (unknown) TRAMADOL DOES (units (unknown) date) NOT CONTAIN TYLENOL unknown) (unknown) (no (unknown) (unknown) *Continue to take (units (unknown) date) medications as unknown) directed --> SENT TO [facility] (unknown) (no (unknown) (unknown) *Disposition: see (units (unknown) date) below, along with unknown) detailed discharge instructions that have (unknown) (no (unknown) (unknown) *Follow up with (units (unknown) date) your primary care unknown) provider in 2-3 days or call [phone] (unknown) (no (unknown) (unknown) *Return to ER if (units (unknown) date) you should have unknown) dizziness lightheadedness increasing pain (unknown) (no (unknown) (unknown) *What to do: At (units (unknown) date) this time I think unknown) the lumps in her breasts that you are feeling (unknown) (no (unknown) (unknown) *You have been (units (unknown) date) diagnosed with unknown) multiple pulmonary nodules (unknown) (no (unknown) (unknown) 0.25 mg PO BID-TID (units (unknown) date) PRN (Reason: unknown) anxiety) Qty: 10 0RF (unknown) (no (unknown) (unknown) 03/05/22 03/05/22 (units (unknown) date) 03/05/22 unknown) Range/Units (unknown) (no (unknown) (unknown) 03/05/22 10:32 (units (unknown) date) unknown) (unknown) (no (unknown) (unknown) 03/05/22 11:00 (units (unknown) date) unknown) (unknown) (no (unknown) (unknown) 03/05/22 11:44 (units (unknown) date) unknown) (unknown) (no (unknown) (unknown) 03/05/22 13:20 (units (unknown) date) unknown) (unknown) (no (unknown) (unknown) 03/05/22 13:25 (units (unknown) date) unknown) (unknown) (no (unknown) (unknown) 03/05/22 1902 (units ( unknown) date) unknown) (unknown) (no (unknown) (unknown) 03/05/22 (units (unkno wn) date) Range/Units unknown) (unknown) (no (unknown) (unknown) 03/05/22 (units (unkno wn) date) unknown) (unknown) (no (unknown) (unknown) 07/03/18 (units (unkno wn) date) unknown) (unknown) (no (unknown) (unknown) 1 patch TOP DAILY (units (unknown) date) Qty: 15 0RF unknown) (unknown) (no (unknown) (unknown) 1 puff INHALATION (units (unknown) date) Q6H PRN (Reason: unknown) Adequate Ventilation) (unknown) (no (unknown) (unknown) 1 tab PO Q4-6H PRN (units (unknown) date) (Reason: pain) Qty: unknown) 10 0RF (unknown) (no (unknown) (unknown) 1 tab PO Q4-6H PRN (units (unknown) date) (Reason: pain) Qty: unknown) 7 0RF (unknown) (no (unknown) (unknown) 1 tab PO Q6H PRN (units (unknown) date) (Reason: pain) Qty: unknown) 10 0RF (unknown) (no (unknown) (unknown) 1. No evidence of (units (unknown) date) acute process in unknown) the chest, abdomen, and pelvis. (unknown) (no (unknown) (unknown) 1. You have been (units (unknown) date) prescribed narcotic unknown) medications, it does have (unknown) (no (unknown) (unknown) 11:00 11:44 11:44 (units (unknown) date) unknown) (unknown) (no (unknown) (unknown) 11:44 11:44 11:44 (units (unknown) date) unknown) (unknown) (no (unknown) (unknown) 11:44 (units (unkno wn) date) unknown) (unknown) (no (unknown) (unknown) 13:54 (units (unkno wn) date) unknown) (unknown) (no (unknown) (unknown) 150 mg PO PRN PRN (units (unknown) date) (Reason: Acid unknown) Reflux) (unknown) (no (unknown) (unknown) 2. Multiple (units (un known) date) pulmonary nodules, unknown) all 3 mm or less.? Please see chart below for (unknown) (no (unknown) (unknown) 2. Please (units (unkn own) date) understand that we unknown) cannot provide further refills of narcotics, (unknown) (no (unknown) (unknown) 3. While on these (units (unknown) date) medications you unknown) cannot drive or operate heavy machinery. (unknown) (no (unknown) (unknown) 4 mg PO PRN PRN (units (unknown) date) (Reason: Nausea) unknown) Qty: 0 (unknown) (no (unknown) (unknown) 4 mg PO QID PRN (units (unknown) date) (Reason: nausea and unknown) vomiting) Qty: 14 2RF (unknown) (no (unknown) (unknown) 4 mg PO TID-QID (units (unknown) date) PRN (Reason: nausea unknown) and vomiting) Qty: 20 0RF (unknown) (no (unknown) (unknown) 4. You cannot sign (units (unknown) date) legal documents or unknown) perform any duties such as this. (unknown) (no (unknown) (unknown) 5. As long as (units ( unknown) date) you're taking unknown) opiate pain medications he should also be taking a (unknown) (no (unknown) (unknown) 6 mm or larger (units (unknown) date) (ground glass)CT at unknown) 6-12 months to confirm persistence, then CT (unknown) (no (unknown) (unknown) ? (units (unkno wn) date) unknown) (unknown) (no (unknown) (unknown) ABDOMEN: Soft, (units (unknown) date) nontender. unknown) Normoactive bowel sounds all 4 quadrants. No (unknown) (no (unknown) (unknown) ABDOMEN:? (units (unkn own) date) unknown) (unknown) (no (unknown) (unknown) ALT (<35) IU/L (units (unknown) date) unknown) (unknown) (no (unknown) (unknown) ALT 18 (<35) IU/L (units (unknown) date) unknown) (unknown) (no (unknown) (unknown) APTT (26-36) (units (u nknown) date) SECONDS unknown) (unknown) (no (unknown) (unknown) APTT 28 (26-36) (units (unknown) date) SECONDS unknown) (unknown) (no (unknown) (unknown) AST (14-36) IU/L (units (unknown) date) unknown) (unknown) (no (unknown) (unknown) AST 28 (14-36) (units (unknown) date) IU/L unknown) (unknown) (no (unknown) (unknown) Accession Number: (units (unknown) date) [id number] ?? unknown) (unknown) (no (unknown) (unknown) Accession Number: (units (unknown) date) [id number] ?? unknown) (unknown) (no (unknown) (unknown) Acct:[id number] (units (unknown) date) unknown) (unknown) (no (unknown) (unknown) Activity (units (unkno wn) date) Restrictions/Additi unknown) onal Instructions: (unknown) (no (unknown) (unknown) After the (units (unkn own) date) administration of unknown) intravenous contrast, 5 mm thick sections acquired (unknown) (no (unknown) (unknown) Age/Sex: 36 / F (units (unknown) date) unknown) (unknown) (no (unknown) (unknown) Albumin (3.5-5.0) (units (unknown) date) g/dL unknown) (unknown) (no (unknown) (unknown) Albumin 4.4 (units (un known) date) (3.5-5.0) g/dL unknown) (unknown) (no (unknown) (unknown) Albumin/Globulin (units (unknown) date) Ratio (1.0-2.8) unknown) (unknown) (no (unknown) (unknown) Albumin/Globulin (units (unknown) date) Ratio 1.3 (1.0-2.8) unknown) (unknown) (no (unknown) (unknown) Alkaline (units (unkno wn) date) Phosphatase unknown) (38-126) U/L (unknown) (no (unknown) (unknown) Alkaline (units (unkno wn) date) Phosphatase 47 unknown) (38-126) U/L (unknown) (no (unknown) (unknown) Allergies (units (unkn own) date) unknown) (unknown) (no (unknown) (unknown) Allergy/AdvReac (units (unknown) date) Type Severity unknown) Reaction Status Date / Time (unknown) (no (unknown) (unknown) Wes Thompson on (units (unknown) date) March 13 at unknown) 11:30 a.m. with check in at 11:15 a.m. (unknown) (no (unknown) (unknown) Asthma (units (unkno wn) date) unknown) (unknown) (no (unknown) (unknown) BREAST: Right (units ( unknown) date) breast 12:00 p.m. 1 unknown) cm lymph node like swelling painful to touch (unknown) (no (unknown) (unknown) BUN (7-17) mg/dL (units (unknown) date) unknown) (unknown) (no (unknown) (unknown) BUN 11 (7-17) (units ( unknown) date) mg/dL unknown) (unknown) (no (unknown) (unknown) BUN/Creatinine (units (unknown) date) Ratio (6-22) unknown) (unknown) (no (unknown) (unknown) BUN/Creatinine (units (unknown) date) Ratio 16.2 (6-22) unknown) (unknown) (no (unknown) (unknown) Baso # (Auto) (units ( unknown) date) (0-100) /uL unknown) (unknown) (no (unknown) (unknown) Baso # (Auto) 100 (units (unknown) date) (0-100) /uL unknown) (unknown) (no (unknown) (unknown) Baso % (Auto) (units ( unknown) date) (0-2) % unknown) (unknown) (no (unknown) (unknown) Baso % (Auto) 0.8 (units (unknown) date) (0-2) % unknown) (unknown) (no (unknown) (unknown) Blood Culture Stat (units (unknown) date) unknown) (unknown) (no (unknown) (unknown) Blood Pressure (units (unknown) date) 113/71 03/05/22 unknown) 10:20 (unknown) (no (unknown) (unknown) Blood Pressure (units (unknown) date) 124/63 unknown) (unknown) (no (unknown) (unknown) Bones and chest (units (unknown) date) wall:? No unknown) suspicious bony lesions.? Overlying soft tissues (unknown) (no (unknown) (unknown) Bones:? No (units (unk nown) date) suspicious bony unknown) lesions.? No vertebral body compression fractures.? (unknown) (no (unknown) (unknown) CARDIOVASCULAR: (units (unknown) date) Regular rate and unknown) rhythm without murmurs, rubs or gallops. (unknown) (no (unknown) (unknown) CHEST:? (units (unkno wn) date) unknown) (unknown) (no (unknown) (unknown) CK-MB (CK-2) Rel (units (unknown) date) Index TNP unknown) (unknown) (no (unknown) (unknown) CK-MB (CK-2) Rel (units (unknown) date) Index unknown) (unknown) (no (unknown) (unknown) CK-MB (CK-2) TNP (units (unknown) date) unknown) (unknown) (no (unknown) (unknown) CK-MB (CK-2) (units (u nknown) date) unknown) (unknown) (no (unknown) (unknown) COMPARISON:? (units (u nknown) date) [facility], unknown) CR, CHEST 2 VIEW, 12/16/2008, 21:11. (unknown) (no (unknown) (unknown) COMPARISON:? None. (units (unknown) date) unknown) (unknown) (no (unknown) (unknown) CONTROLLED (units (unk nown) date) SUBSTANCE DISCHARGE unknown) (Narcotoic/benzodia zepine/Flexeril/Phe nergan) (unknown) (no (unknown) (unknown) CT Scan Report (units (unknown) date) unknown) (unknown) (no (unknown) (unknown) CT chest abd pel w (units (unknown) date) con Stat unknown) (unknown) (no (unknown) (unknown) CT scan - chest: (units (unknown) date) unknown) (unknown) (no (unknown) (unknown) Calcium (8.4-10.2) (units (unknown) date) mg/dL unknown) (unknown) (no (unknown) (unknown) Calcium 9.2 (units (un known) date) (8.4-10.2) mg/dL unknown) (unknown) (no (unknown) (unknown) Carbon Dioxide (units (unknown) date) (22-32) mmol/L unknown) (unknown) (no (unknown) (unknown) Carbon Dioxide 29 (units (unknown) date) (22-32) mmol/L unknown) (unknown) (no (unknown) (unknown) Chest wall:? No (units (unknown) date) axillary or unknown) supraclavicular adenopathy by size criteria.? (unknown) (no (unknown) (unknown) Chest x-ray: (units (u nknown) date) unknown) (unknown) (no (unknown) (unknown) Chief Complaint: (units (unknown) date) Chest Pain unknown) (unknown) (no (unknown) (unknown) Chloride (98-107) (units (unknown) date) mmol/L unknown) (unknown) (no (unknown) (unknown) Chloride 104 (units (u nknown) date) (98-107) mmol/L unknown) (unknown) (no (unknown) (unknown) Clinical (units (unkno wn) date) Impression: unknown) (unknown) (no (unknown) (unknown) Complete Blood (units (unknown) date) Count AUTO DIFF unknown) Stat (unknown) (no (unknown) (unknown) Comprehensive (units ( unknown) date) Metabolic Panel unknown) Stat (unknown) (no (unknown) (unknown) Consult to [facility] [place] - (units (unknown) date) 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 unknown) Stat (unknown) (no (unknown) (unknown) Course (units (unkno wn) date) unknown) (unknown) (no (unknown) (unknown) Covid-19 + FLU A/B (units (unknown) date) + RSV - PCR Stat unknown) (unknown) (no (unknown) (unknown) Creatinine (units (unk nown) date) (0.52-1.04) mg/dL unknown) (unknown) (no (unknown) (unknown) Creatinine 0.68 (units (unknown) date) (0.52-1.04) mg/dL unknown) (unknown) (no (unknown) (unknown) : 1985 (units (unknown) date) Acct:[id number] unknown) (unknown) (no (unknown) (unknown) : 1985 (units (unknown) date) unknown) (unknown) (no (unknown) (unknown) Date of Service: (units (unknown) date) 03/05/22 unknown) (unknown) (no (unknown) (unknown) Departure (units (unkn own) date) unknown) (unknown) (no (unknown) (unknown) Dictated by: (units (u nknown) date) ethan Woods) Jose on 03/05/2022 at 10:54 ? (unknown) (no (unknown) (unknown) Dictated by: (units (u nknown) date) ethan Woods) Jose on 03/05/2022 at 12:54 ? ? (unknown) (no (unknown) (unknown) Discharge Plan (units (unknown) date) unknown) (unknown) (no (unknown) (unknown) ECG Data (units (unkno wn) date) unknown) (unknown) (no (unknown) (unknown) ED Orders (units (unkn own) date) unknown) (unknown) (no (unknown) (unknown) EKG-12 Lead Stat (units (unknown) date) unknown) (unknown) (no (unknown) (unknown) ER Physician: (units ( unknown) date) Danita Vila D.O. unknown) (unknown) (no (unknown) (unknown) EXTREMITIES: (units (u nknown) date) Normal range of unknown) motion, no clubbing or edema. Neurovascularly (unknown) (no (unknown) (unknown) Emergency Report (units (unknown) date) unknown) (unknown) (no (unknown) (unknown) Eos # (Auto) (units (u nknown) date) (0-450) /uL unknown) (unknown) (no (unknown) (unknown) Eos # (Auto) 200 (units (unknown) date) (0-450) /uL unknown) (unknown) (no (unknown) (unknown) Eos % (Auto) (2-4) (units (unknown) date) % unknown) (unknown) (no (unknown) (unknown) Eos % (Auto) 2.5 (units (unknown) date) (2-4) % unknown) (unknown) (no (unknown) (unknown) Estimated GFR > 60 (units (unknown) date) (>60) mL/min unknown) (unknown) (no (unknown) (unknown) Estimated GFR (units ( unknown) date) (>60) mL/min unknown) (unknown) (no (unknown) (unknown) Exam (units (unkno wn) date) unknown) (unknown) (no (unknown) (unknown) FINDINGS:? (units (unk nown) date) unknown) (unknown) (no (unknown) (unknown) Fleischner Society (units (unknown) date) criteria for SOLID unknown) lung nodule followup.? (unknown) (no (unknown) (unknown) Fleischner Society (units (unknown) date) criteria for unknown) SUB-SOLID lung nodule followup.? (unknown) (no (unknown) (unknown) GENERAL: Thin (units ( unknown) date) 36-year-old female unknown) (unknown) (no (unknown) (unknown) General (units (unkno wn) date) unknown) (unknown) (no (unknown) (unknown) Genitourinary:? (units (unknown) date) Bladder wall unknown) thickness is normal.? (unknown) (no (unknown) (unknown) Globulin (1.7-4.1) (units (unknown) date) g/dL unknown) (unknown) (no (unknown) (unknown) Globulin 3.3 (units (u nknown) date) (1.7-4.1) g/dL unknown) (unknown) (no (unknown) (unknown) Glucose (70-100) (units (unknown) date) mg/dL unknown) (unknown) (no (unknown) (unknown) Glucose 87 (units (unk nown) date) (70-100) mg/dL unknown) (unknown) (no (unknown) (unknown) H/O exploratory (units (unknown) date) laparotomy unknown) (unknown) (no (unknown) (unknown) H/O left knee (units ( unknown) date) surgery unknown) (unknown) (no (unknown) (unknown) HEENT: Head (units (un known) date) atraumatic,EOMI, unknown) pupils reactive, face symmetric, no cervical lymph (unknown) (no (unknown) (unknown) HPI - Chest Pain (units (unknown) date) unknown) (unknown) (no (unknown) (unknown) HPI narrative: (units (unknown) date) unknown) (unknown) (no (unknown) (unknown) Hct (36-46) % (units ( unknown) date) unknown) (unknown) (no (unknown) (unknown) Hct 35.5 L (36-46) (units (unknown) date) % unknown) (unknown) (no (unknown) (unknown) Hgb (12.0-16.0) (units (unknown) date) g/dL unknown) (unknown) (no (unknown) (unknown) Hgb 12.2 (units (unkno wn) date) (12.0-16.0) g/dL unknown) (unknown) (no (unknown) (unknown) History of Present (units (unknown) date) Illness unknown) (unknown) (no (unknown) (unknown) History of open (units (unknown) date) heart surgery unknown) (unknown) (no (unknown) (unknown) History of surgery (units (unknown) date) unknown) (unknown) (no (unknown) (unknown) Home Medications (units (unknown) date) unknown) (unknown) (no (unknown) (unknown) IMPRESSION:? No (units (unknown) date) evidence acute unknown) pulmonary process. (unknown) (no (unknown) (unknown) IMPRESSION:? (units (u nknown) date) unknown) (unknown) (no (unknown) (unknown) INDICATIONS:? (units ( unknown) date) chest pain unknown) (unknown) (no (unknown) (unknown) INDICATIONS:? (units ( unknown) date) weight loss, night unknown) sweats, bilateral breast lymphnodes (unknown) (no (unknown) (unknown) INR (0.9-1.3) (units ( unknown) date) unknown) (unknown) (no (unknown) (unknown) INR 1.0 (0.9-1.3) (units (unknown) date) unknown) (unknown) (no (unknown) (unknown) Image quality:? (units (unknown) date) Excellent.? unknown) (unknown) (no (unknown) (unknown) Imaging Data (units (u nknown) date) unknown) (unknown) (no (unknown) (unknown) Influenza A (units (un known) date) (RT-PCR) (NEGATIVE) unknown) (unknown) (no (unknown) (unknown) Influenza A (units (un known) date) (RT-PCR) Flu a unknown) negative (NEGATIVE) (unknown) (no (unknown) (unknown) Influenza B (units (un known) date) (RT-PCR) (NEGATIVE) unknown) (unknown) (no (unknown) (unknown) Influenza B (units (un known) date) (RT-PCR) Flu b unknown) negative (NEGATIVE) (unknown) (no (unknown) (unknown) Initial Vital (units ( unknown) date) Signs unknown) (unknown) (no (unknown) (unknown) Initial Vital (units ( unknown) date) Signs: unknown) (unknown) (no (unknown) (unknown) Instructions: DI (units (unknown) date) for Pulmonary unknown) Nodule (unknown) (no (unknown) (unknown) Interpretation: (units (unknown) date) unknown) (unknown) (no (unknown) (unknown) [facility] (units (unknown) date) [address] unknown) [place] [address] (unknown) (no (unknown) (unknown) Kidneys (units (unkno wn) date) demonstrate normal unknown) size and enhancement, without hydronephrosis.? (unknown) (no (unknown) (unknown) Lab Data (units (unkno wn) date) unknown) (unknown) (no (unknown) (unknown) Lab Results (units (un known) date) unknown) (unknown) (no (unknown) (unknown) Labs: (units (unkno wn) date) unknown) (unknown) (no (unknown) (unknown) Lactate (0.7-2.1) (units (unknown) date) mmol/L unknown) (unknown) (no (unknown) (unknown) Lactate (Lactic (units (unknown) date) Acid) Stat unknown) (unknown) (no (unknown) (unknown) Lactate 0.9 (units (un known) date) (0.7-2.1) mmol/L unknown) (unknown) (no (unknown) (unknown) Left breast 12:00 (units (unknown) date) p.m. 1 cm painful unknown) lymph node like swelling non erythematous (unknown) (no (unknown) (unknown) Lipase (23-300) (units (unknown) date) U/L unknown) (unknown) (no (unknown) (unknown) Lipase 187 (units (unk nown) date) (23-300) U/L unknown) (unknown) (no (unknown) (unknown) Lipase Stat (units (un known) date) unknown) (unknown) (no (unknown) (unknown) Loc: ED (units (unkno wn) date) unknown) (unknown) (no (unknown) (unknown) Lungs and pleura:? (units (unknown) date) Lungs are clear.? unknown) No pleural effusions or pneumothorax.? (unknown) (no (unknown) (unknown) Lungs and pleura:? (units (unknown) date) No acute airspace unknown) opacities.? There are 3 probable small (unknown) (no (unknown) (unknown) Lymph # (Auto) (units (unknown) date) (3213-4147) /uL unknown) (unknown) (no (unknown) (unknown) Lymph # (Auto) (units (unknown) date) 1400 (2073-9839) unknown) /uL (unknown) (no (unknown) (unknown) Lymph % (Auto) (units (unknown) date) (25-40) % unknown) (unknown) (no (unknown) (unknown) Lymph % (Auto) (units (unknown) date) 20.6 L (25-40) % unknown) (unknown) (no (unknown) (unknown) [id number] (units (unk nown) date) unknown) (unknown) (no (unknown) (unknown) MCH (26-34) PG (units (unknown) date) unknown) (unknown) (no (unknown) (unknown) MCH 30.9 (26-34) (units (unknown) date) PG unknown) (unknown) (no (unknown) (unknown) MCHC (30-36) % (units (unknown) date) unknown) (unknown) (no (unknown) (unknown) MCHC 34.3 (30-36) (units (unknown) date) % unknown) (unknown) (no (unknown) (unknown) MCV (80-100) fL (units (unknown) date) unknown) (unknown) (no (unknown) (unknown) MCV 90.0 (80-100) (units (unknown) date) fL unknown) (unknown) (no (unknown) (unknown) MDM - Chest Pain (units (unknown) date) unknown) (unknown) (no (unknown) (unknown) MDM Narrative (units ( unknown) date) unknown) (unknown) (no (unknown) (unknown) MDM (units (unkno wn) date) unknown) (unknown) (no (unknown) (unknown) MR#: [id number] (units (unknown) date) unknown) (unknown) (no (unknown) (unknown) Magnesium (units (unkn own) date) (1.6-2.3) mg/dL unknown) (unknown) (no (unknown) (unknown) Magnesium 1.9 (units ( unknown) date) (1.6-2.3) mg/dL unknown) (unknown) (no (unknown) (unknown) Magnesium Stat (units (unknown) date) unknown) (unknown) (no (unknown) (unknown) Mediastinum:? Heart (units (unknown) date) size is normal.? No unknown) pericardial effusion.? No mediastinal or (unknown) (no (unknown) (unknown) Mediastinum:? (units ( unknown) date) Mediastinal unknown) contours appear normal.? Heart size is normal.? (unknown) (no (unknown) (unknown) Medical History (units (unknown) date) (Updated 03/05/22 @ unknown) 13:36 by Danita Vila DO) (unknown) (no (unknown) (unknown) Medical decision (units (unknown) date) making narrative: unknown) (unknown) (no (unknown) (unknown) Medication (units (unk nown) date) Instructions unknown) Recorded Confirmed (unknown) (no (unknown) (unknown) Medication (units (unk nown) date) Instructions unknown) Recorded (unknown) (no (unknown) (unknown) Miscellaneous:? No (units (unknown) date) inguinal hernias or unknown) adenopathy.? Retroverted uterus. (unknown) (no (unknown) (unknown) Miscellaneous:? No (units (unknown) date) ventral hernias.? unknown) (unknown) (no (unknown) (unknown) [place] # (Auto) (units ( unknown) date) (0-900) /uL unknown) (unknown) (no (unknown) (unknown) [place] # (Auto) 500 (units (unknown) date) (0-900) /uL unknown) (unknown) (no (unknown) (unknown) [place] % (Auto) (units ( unknown) date) (3-14) % unknown) (unknown) (no (unknown) (unknown) [place] % (Auto) 8.0 (units (unknown) date) (3-14) % unknown) (unknown) (no (unknown) (unknown) Multiple (units (unkno wn) date) unknown) (unknown) (no (unknown) (unknown) NEUROLOGICAL: (units ( unknown) date) Alert and oriented unknown) x4.Normal gait and speech. (unknown) (no (unknown) (unknown) Neut # (Auto) (units ( unknown) date) (3754-0180) /uL unknown) (unknown) (no (unknown) (unknown) Neut # (Auto) 4500 (units (unknown) date) (0366-9750) /uL unknown) (unknown) (no (unknown) (unknown) Neut % (Auto) (units ( unknown) date) (50-75) % unknown) (unknown) (no (unknown) (unknown) Neut % (Auto) 68.1 (units (unknown) date) (50-75) % unknown) (unknown) (no (unknown) (unknown) New (units (unkno wn) date) unknown) (unknown) (no (unknown) (unknown) No Action (units (unkn own) date) unknown) (unknown) (no (unknown) (unknown) No (units (unkno wn) date) unknown) (unknown) (no (unknown) (unknown) Nodes and (units (unkn own) date) vessels:? No unknown) retroperitoneal or mesenteric adenopathy by size (unknown) (no (unknown) (unknown) Nodule size (units (un known) date) (mm)Low-risk unknown) patientHigh-risk patient<6 (single or multiple)No (unknown) (no (unknown) (unknown) [place] 1 tablet (units (unknown) date) every 6 hours if unknown) needed for severe pain (unknown) (no (unknown) (unknown) Ondansetron (units (un known) date) (Zofran Odt) 4 mg unknown) PO PRN PRN Nausea ##0 07/06/10 07/03/18 (unknown) (no (unknown) (unknown) Ondansetron (units (un known) date) (Zofran Odt) tablet unknown) (unknown) (no (unknown) (unknown) Ordered: (units (unkno wn) date) unknown) (unknown) (no (unknown) (unknown) Ordering Provider: (units (unknown) date) Danita Vila D.O. unknown) (unknown) (no (unknown) (unknown) Orders (units (unkno wn) date) unknown) (unknown) (no (unknown) (unknown) Oxygen Delivery (units (unknown) date) Method 03/05/22 unknown) 10:20 (unknown) (no (unknown) (unknown) Oxygen Delivery (units (unknown) date) Method Room Air unknown) (unknown) (no (unknown) (unknown) PCP. Social work (units (unknown) date) consulted to help unknown) set up for follow-up with PCP. (unknown) (no (unknown) (unknown) PELVIS:? (units (unkno wn) date) unknown) (unknown) (no (unknown) (unknown) PROCEDURE:? CT (units (unknown) date) CHEST ABD PEL W CON unknown) (unknown) (no (unknown) (unknown) PROCEDURE:? XR (units (unknown) date) CHEST 1V unknown) (unknown) (no (unknown) (unknown) PT (10.1-12.7) (units (unknown) date) SECONDS unknown) (unknown) (no (unknown) (unknown) PT 11.7 (units (unkno wn) date) (10.1-12.7) SECONDS unknown) (unknown) (no (unknown) (unknown) Pancreas (units (unkno wn) date) unknown) (unknown) (no (unknown) (unknown) Partial (units (unkno wn) date) Thromboplastin Time unknown) Stat (unknown) (no (unknown) (unknown) Patient (units (unkno wn) date) Disposition: Home unknown) (unknown) (no (unknown) (unknown) Patient History (units (unknown) date) unknown) (unknown) (no (unknown) (unknown) Patient healthy (units (unknown) date) 36-year-old female unknown) presenting today with bilateral breast lumps (unknown) (no (unknown) (unknown) Patient is a (units (un known) date) healthy 36-year-old unknown) female who presents with a variety of symptoms. (unknown) (no (unknown) (unknown) Patient: (units (unkno wn) date) Carmina Castillo unknown) MR#: (unknown) (no (unknown) (unknown) Patient: (units (unkno wn) date) Carmina Castillo unknown) (unknown) (no (unknown) (unknown) Penicillins (units (un known) date) Allergy unknown) Intermediate Rash Verified 03/05/22 10:24 (unknown) (no (unknown) (unknown) Peritoneum and (units (unknown) date) bowel:? Bowel loops unknown) demonstrate normal wall thickness and (unknown) (no (unknown) (unknown) Pertussis Vaccines (units (unknown) date) Allergy Unknown unknown) Seizure Verified 03/05/22 10:24 (unknown) (no (unknown) (unknown) Plt Count (units (unkn own) date) (150-400) X103/uL unknown) (unknown) (no (unknown) (unknown) Plt Count 229 (units ( unknown) date) (150-400) X103/uL unknown) (unknown) (no (unknown) (unknown) Potassium (units (unkn own) date) (3.4-5.1) mmol/L unknown) (unknown) (no (unknown) (unknown) Potassium 4.0 (units ( unknown) date) (3.4-5.1) mmol/L unknown) (unknown) (no (unknown) (unknown) Prescriptions: (units (unknown) date) unknown) (unknown) (no (unknown) (unknown) Previous Rx's (units ( unknown) date) unknown) (unknown) (no (unknown) (unknown) Procalcitonin (units ( unknown) date) (<0.5) ng/mL unknown) (unknown) (no (unknown) (unknown) Procalcitonin 0.04 (units (unknown) date) (<0.5) ng/mL unknown) (unknown) (no (unknown) (unknown) Procalcitonin Stat (units (unknown) date) unknown) (unknown) (no (unknown) (unknown) Procedure: CT (units ( unknown) date) chest abd pel w con unknown) (unknown) (no (unknown) (unknown) Procedure: XR (units ( unknown) date) chest 1V unknown) (unknown) (no (unknown) (unknown) Prothrombin Time (units (unknown) date) INR Stat unknown) (unknown) (no (unknown) (unknown) Pulmonary nodule (units (unknown) date) unknown) (unknown) (no (unknown) (unknown) Pulse Oximetry 100 (units (unknown) date) 03/05/22 10:20 unknown) (unknown) (no (unknown) (unknown) Pulse Oximetry 98 (units (unknown) date) unknown) (unknown) (no (unknown) (unknown) Pulse Rate 63 (units ( unknown) date) 03/05/22 10:20 unknown) (unknown) (no (unknown) (unknown) Pulse Rate 64 (units ( unknown) date) unknown) (unknown) (no (unknown) (unknown) RBC (4.0-5.2) (units ( unknown) date) X106/uL unknown) (unknown) (no (unknown) (unknown) RBC 3.94 L (units (unk nown) date) (4.0-5.2) X106/uL unknown) (unknown) (no (unknown) (unknown) RDW (11.6-14.8) % (units (unknown) date) unknown) (unknown) (no (unknown) (unknown) RDW 12.1 (units (unkno wn) date) (11.6-14.8) % unknown) (unknown) (no (unknown) (unknown) RESPIRATORY: (units (u nknown) date) Breath sounds equal unknown) bilaterally, no wheezes rales or rhonchi. (unknown) (no (unknown) (unknown) ROS Unobtainable: (units (unknown) date) All systems unknown) reviewed + are unremarkable except as noted in HPI (unknown) (no (unknown) (unknown) RSV (PCR) (units (unkn own) date) (Negative) unknown) (unknown) (no (unknown) (unknown) RSV (PCR) Negative (units (unknown) date) (Negative) unknown) (unknown) (no (unknown) (unknown) Radiologist's (units ( unknown) date) Impression: unknown) (unknown) (no (unknown) (unknown) Kitchen Aide (units (unkno wn) date) (ranitidine)) unknown) (unknown) (no (unknown) (unknown) Referrals: (units (unk nown) date) unknown) (unknown) (no (unknown) (unknown) Related Data (units (u nknown) date) unknown) (unknown) (no (unknown) (unknown) Respiratory Rate (units (unknown) date) 16 03/05/22 10:20 unknown) (unknown) (no (unknown) (unknown) Result diagrams: (units (unknown) date) unknown) (unknown) (no (unknown) (unknown) Review of Systems (units (unknown) date) unknown) (unknown) (no (unknown) (unknown) Wes Herrera ARNP (units (unknown) date) [Advanced Practice unknown) Clinician] (unknown) (no (unknown) (unknown) Rx Instructions: (units (unknown) date) unknown) (unknown) (no (unknown) (unknown) S/P laparoscopic (units (unknown) date) supracervical unknown) hysterectomy (04/04/18) (unknown) (no (unknown) (unknown) SARS-CoV-2 (PCR) (units (unknown) date) (Negative) unknown) (unknown) (no (unknown) (unknown) SARS-CoV-2 (PCR) (units (unknown) date) Negative (Negative) unknown) (unknown) (no (unknown) (unknown) SKIN: Warm, dry, (units (unknown) date) no laceration, no unknown) petechiae, no rashes or lesions. (unknown) (no (unknown) (unknown) Daniel Ghosh DO (units (unknown) date) [Primary Care unknown) Provider] (unknown) (no (unknown) (unknown) She did have open (units (unknown) date) heart surgery for unknown) what was thought to be in abnormal valve (unknown) (no (unknown) (unknown) She reports that (units (unknown) date) she is had about a unknown) 12 lb weight loss since . She (unknown) (no (unknown) (unknown) Signed By: (units (unk nown) date) unknown) (unknown) (no (unknown) (unknown) Signed (units (unkno wn) date) unknown) (unknown) (no (unknown) (unknown) Sinus rhythm rate (units (unknown) date) 47 AR interval 130 unknown) QRS 96 QTC 364 changes no T-wave inversions (unknown) (no (unknown) (unknown) Smoking Status: (units (unknown) date) Former smoker unknown) (unknown) (no (unknown) (unknown) Social History (units (unknown) date) (Reviewed 03/05/22 unknown) @ 11:22 by Danita Vila DO) (unknown) (no (unknown) (unknown) Sodium (137-145) (units (unknown) date) mmol/L unknown) (unknown) (no (unknown) (unknown) Sodium 139 (units (unk nown) date) (137-145) mmol/L unknown) (unknown) (no (unknown) (unknown) Solid organs:? (units (unknown) date) Liver is normal in unknown) size and enhancement.? Gallbladder is (unknown) (no (unknown) (unknown) Solitary pure (units (u nknown) date) ground-glass unknown) nodules<6 mm (ground glass or part solid)No followup (unknown) (no (unknown) (unknown) Stand Alone Forms: (units (unknown) date) Patient Portal/API unknown) (unknown) (no (unknown) (unknown) Stated Complaint: (units (unknown) date) pain in chest, unknown) sternum hurts, cough (unknown) (no (unknown) (unknown) Substance Use (units ( unknown) date) Type: marijuana unknown) (unknown) (no (unknown) (unknown) Surgical History (units (unknown) date) (Reviewed 03/05/22 unknown) @ 11:22 by Danita Vila DO) (unknown) (no (unknown) (unknown) Surgical changes (units (unknown) date) and devices:? unknown) None.? (unknown) (no (unknown) (unknown) TECHNIQUE:? One (units (unknown) date) view of the chest unknown) was acquired.? (unknown) (no (unknown) (unknown) TECHNIQUE:? (units (un known) date) unknown) (unknown) (no (unknown) (unknown) TSH (0.47-4.68) (units (unknown) date) uIU/mL unknown) (unknown) (no (unknown) (unknown) TSH 0.894 (units (unkn own) date) (0.47-4.68) uIU/mL unknown) (unknown) (no (unknown) (unknown) TSH [Thyroid (units (u nknown) date) Stimulating unknown) Hormone] Stat (unknown) (no (unknown) (unknown) Temperature 97 F L (units (unknown) date) 03/05/22 10:20 unknown) (unknown) (no (unknown) (unknown) Thyroid gland (units ( unknown) date) unknown) (unknown) (no (unknown) (unknown) Time Seen by (units (u nknown) date) Provider: 03/05/22 unknown) 10:35 (unknown) (no (unknown) (unknown) Total Bilirubin (units (unknown) date) (0.2-1.3) mg/dL unknown) (unknown) (no (unknown) (unknown) Total Bilirubin (units (unknown) date) 0.5 (0.2-1.3) mg/dL unknown) (unknown) (no (unknown) (unknown) Total Creatine (units (unknown) date) Kinase (30-135) U/L unknown) (unknown) (no (unknown) (unknown) Total Creatine (units (unknown) date) Kinase 88 (30-135) unknown) U/L (unknown) (no (unknown) (unknown) Total Protein (units ( unknown) date) (6.3-8.2) g/dL unknown) (unknown) (no (unknown) (unknown) Total Protein 7.7 (units (unknown) date) (6.3-8.2) g/dL unknown) (unknown) (no (unknown) (unknown) Troponin + CK (units ( unknown) date) Cardiac Panel Stat unknown) (unknown) (no (unknown) (unknown) Troponin I (units (unk nown) date) (0.01-0.034) ng/mL unknown) (unknown) (no (unknown) (unknown) Troponin I 0.015 (units (unknown) date) (0.01-0.034) ng/mL unknown) (unknown) (no (unknown) (unknown) Upset (units (unkno wn) date) unknown) (unknown) (no (unknown) (unknown) Vital Signs - 8 hr (units (unknown) date) unknown) (unknown) (no (unknown) (unknown) Vital Signs (units (un known) date) unknown) (unknown) (no (unknown) (unknown) Vital signs: (units (u nknown) date) unknown) (unknown) (no (unknown) (unknown) WBC (4.5-11.0) (units (unknown) date) X103/uL unknown) (unknown) (no (unknown) (unknown) WBC 6.6 (4.5-11.0) (units (unknown) date) X103/uL unknown) (unknown) (no (unknown) (unknown) XR chest 1V Stat (units (unknown) date) unknown) (unknown) (no (unknown) (unknown) XRay Report (units (un known) date) unknown) (unknown) (no (unknown) (unknown) [Embedded Image (units (unknown) date) Not Available] unknown) (unknown) (no (unknown) (unknown) [PERTUSSIS (units (unk nown) date) VACCINES] unknown) (unknown) (no (unknown) (unknown) according to (units (u nknown) date) unknown) (unknown) (no (unknown) (unknown) acetaminophen/Tyle (units (unknown) date) nol/paracetamol in unknown) it, DO NOT TAKE MORE THAN 4,00mg in 24 (unknown) (no (unknown) (unknown) additional 7 mm (units (unknown) date) MIP reformats unknown) through the lungs.? For radiation dose reduction, (unknown) (no (unknown) (unknown) additional (units (unk nown) date) outpatient follow unknown) up (unknown) (no (unknown) (unknown) adenopathy by size (units (unknown) date) criteria.? Thoracic unknown) aorta and central pulmonary arteries are (unknown) (no (unknown) (unknown) aerosol inhaler (units (unknown) date) (ProAir HFA) unknown) Ventilation (unknown) (no (unknown) (unknown) albuterol sulfate (units (unknown) date) 90 mcg/actuation 1 unknown) puff inhalation Q6H PRN Adequate 11/14/17 (unknown) (no (unknown) (unknown) albuterol sulfate (units (unknown) date) [ProAir HFA] 90 unknown) mcg/actuation HFA aerosol inhaler (unknown) (no (unknown) (unknown) alcohol intake (units (unknown) date) frequency: 0-2 unknown) drinks per day (unknown) (no (unknown) (unknown) alprazolam 0.25 mg (units (unknown) date) tablet (Xanax) 0.25 unknown) mg PO BID-TID PRN anxiety #10 03/18/18 (unknown) (no (unknown) (unknown) alprazolam [Xanax] (units (unknown) date) 0.25 mg tablet unknown) (unknown) (no (unknown) (unknown) amoxicillin (units (un known) date) Allergy unknown) Intermediate Rash, Verified 03/05/22 10:24 (unknown) (no (unknown) (unknown) and below (units (unkn own) date) unknown) (unknown) (no (unknown) (unknown) and inferior vena (units (unknown) date) cava are normal in unknown) size.? (unknown) (no (unknown) (unknown) and (units (unkno wn) date) unknown) (unknown) (no (unknown) (unknown) appear (units (unkno wn) date) unknown) (unknown) (no (unknown) (unknown) approximately 3 (units (unknown) date) unknown) (unknown) (no (unknown) (unknown) are probably lymph (units (unknown) date) nodes. I recommend unknown) ice 20-30 minutes at a time. You will (unknown) (no (unknown) (unknown) axilla no (units (unkn own) date) abnormality unknown) (unknown) (no (unknown) (unknown) azithromycin (units (u nknown) date) Allergy unknown) Intermediate Gastrointestinal Verified 03/05/22 10:24 (unknown) (no (unknown) (unknown) been reviewed with (units (unknown) date) patient as well as unknown) indications for ED re-evaluation and (unknown) (no (unknown) (unknown) benzodiazepines or (units (unknown) date) controlled unknown) substances through the ED and her pain management (unknown) (no (unknown) (unknown) bilaterally. There (units (unknown) date) painful to touch. unknown) She has had a sore throat little bit of a (unknown) (no (unknown) (unknown) caliber.? No (units (u nknown) date) unknown) (unknown) (no (unknown) (unknown) ciprofloxacin (units ( unknown) date) Allergy unknown) Intermediate Gastrointestinal Verified 03/05/22 10:24 (unknown) (no (unknown) (unknown) constipation. (units ( unknown) date) unknown) (unknown) (no (unknown) (unknown) contracted, (units (un known) date) unknown) (unknown) (no (unknown) (unknown) cough. No (units (unkn own) date) abdominal pain unknown) nausea vomiting painful or frequent urination. No (unknown) (no (unknown) (unknown) criteria.? Aorta (units (unknown) date) unknown) (unknown) (no (unknown) (unknown) enhances (units (unkno wn) date) normally.? Spleen unknown) is normal in size and enhancement.? No adrenal (unknown) (no (unknown) (unknown) every 2 (units (unkno wn) date) unknown) (unknown) (no (unknown) (unknown) fevers passing out (units (unknown) date) or any new, unknown) worsening or concerning symptoms (unknown) (no (unknown) (unknown) fissural (units (unkno wn) date) unknown) (unknown) (no (unknown) (unknown) follow-up (units (unkn own) date) unknown) (unknown) (no (unknown) (unknown) following was (units ( unknown) date) used:? automated unknown) exposure control, adjustment of mA and/or kV (unknown) (no (unknown) (unknown) followup.Optional (units (unknown) date) CT at 12 months. unknown) 6-8 (single or multiple)CT at 6-12 months, (unknown) (no (unknown) (unknown) free fluid or (units ( unknown) date) air.? unknown) (unknown) (no (unknown) (unknown) from the (units (unkno wn) date) unknown) (unknown) (no (unknown) (unknown) gluten AdvReac (units (unknown) date) Mild Stomach unknown) Verified 03/05/22 10:24 (unknown) (no (unknown) (unknown) guarding or (units (un known) date) rebound. unknown) (unknown) (no (unknown) (unknown) has night sweats. (units (unknown) date) Kids have been sick unknown) off and on for couple of weeks. However (unknown) (no (unknown) (unknown) headache (units (unkno wn) date) unknown) (unknown) (no (unknown) (unknown) hilar (units (unkno wn) date) unknown) (unknown) (no (unknown) (unknown) hours of Tylenol. (units (unknown) date) unknown) (unknown) (no (unknown) (unknown) household members: (units (unknown) date) spouse and children unknown) (unknown) (no (unknown) (unknown) hydrocodone 5 (units ( unknown) date) mg-acetaminophen unknown) 325 1 tab PO Q4-6H PRN pain #10 tabs 05/19/18 (unknown) (no (unknown) (unknown) hydrocodone 5 (units ( unknown) date) mg-acetaminophen unknown) 325 1 tab PO Q4-6H PRN pain #7 tabs 06/02/18 (unknown) (no (unknown) (unknown) hydrocodone 5 (units ( unknown) date) mg-acetaminophen unknown) 325 1 tab PO Q6H PRN pain #10 tabs 03/05/22 (unknown) (no (unknown) (unknown) hydrocodone-acetam (units (unknown) date) inophen 5-325 mg unknown) tablet (unknown) (no (unknown) (unknown) hydromorphone (units ( unknown) date) Allergy Mild unknown) Flushing Verified 03/05/22 10:24 (unknown) (no (unknown) (unknown) ibuprofen Allergy (units (unknown) date) Mild Kidney unknown) Verified 03/05/22 10:24 (unknown) (no (unknown) (unknown) immunosuppression, (units (unknown) date) or patients with unknown) known primary cancer. (unknown) (no (unknown) (unknown) infection (units (unkn own) date) unknown) (unknown) (no (unknown) (unknown) intact (units (unkno wn) date) unknown) (unknown) (no (unknown) (unknown) is unremarkable .? (units (unknown) date) unknown) (unknown) (no (unknown) (unknown) last week she and (units (unknown) date) her both unknown) noticed some lumps in her breasts (unknown) (no (unknown) (unknown) leave on most (units ( unknown) date) painful area for 12 unknown) hrs (unknown) (no (unknown) (unknown) lidocaine 5 % (units ( unknown) date) adhesive unknown) patch,medicated (unknown) (no (unknown) (unknown) lidocaine 5 % (units ( unknown) date) topical patch 1 unknown) patch topical DAILY #15 ea 06/02/18 (unknown) (no (unknown) (unknown) limits TSH is 0.89 (units (unknown) date) unknown) (unknown) (no (unknown) (unknown) lung apices to the (units (unknown) date) symphysis.? 5 mm unknown) coronal and sagittal reformats were (unknown) (no (unknown) (unknown) lymph nodes in the (units (unknown) date) major fissure of unknown) the right lung.? They each measure (unknown) (no (unknown) (unknown) lymphadenitis (units ( unknown) date) unknown) (unknown) (no (unknown) (unknown) mg tablet (units (unkn own) date) unknown) (unknown) (no (unknown) (unknown) mm.? There is a 3 (units (unknown) date) mm subpleural unknown) pulmonary nodule in the extreme left lung base.? (unknown) (no (unknown) (unknown) months, PET-CT, or (units (unknown) date) biopsy. Same as for unknown) low-risk pts.? >8 (multiple)CT at 3-6 (unknown) (no (unknown) (unknown) months, then (units (u nknown) date) unknown) (unknown) (no (unknown) (unknown) multiple pulmonary (units (unknown) date) nodules. Unclear if unknown) this is infectious or cancerous. At (unknown) (no (unknown) (unknown) nausea, (units (unkno wn) date) unknown) (unknown) (no (unknown) (unknown) need a repeat (units ( unknown) date) chest CT in 3-6 unknown) months with her PCP plus or minus a mammogram. (unknown) (no (unknown) (unknown) needed.? (units (unkno wn) date) unknown) (unknown) (no (unknown) (unknown) nickel AdvReac (units (unknown) date) Mild Irritation/ unknown) Verified 03/05/22 10:24 (unknown) (no (unknown) (unknown) no erythema no (units (unknown) date) lymph nodes in unknown) axilla (unknown) (no (unknown) (unknown) node (units (unkno wn) date) unknown) (unknown) (no (unknown) (unknown) nodules.? (units (unkn own) date) unknown) (unknown) (no (unknown) (unknown) normal in (units (unkn own) date) caliber.? unknown) (unknown) (no (unknown) (unknown) normal in (units (unkn own) date) unknown) (unknown) (no (unknown) (unknown) ondansetron 4 mg (units (unknown) date) disintegrating 4 mg unknown) PO QID PRN nausea and 04/05/18 (unknown) (no (unknown) (unknown) ondansetron 4 mg (units (unknown) date) disintegrating 4 mg unknown) PO TID-QID PRN nausea and 06/02/18 (unknown) (no (unknown) (unknown) ondansetron 4 mg (units (unknown) date) tablet,disintegrati unknown) ng (unknown) (no (unknown) (unknown) optional CT at (units (unknown) date) 18-24 mo.CT at 3-6 unknown) months, then CT at 18-24 months.? (unknown) (no (unknown) (unknown) optional CT at (units (unknown) date) 18-24 mo.CT at 6-12 unknown) months, then CT at 18-24 months.? >8 (unknown) (no (unknown) (unknown) or anemia (units (unkn own) date) electrolytes are unknown) within normal limits kidney function within normal (unknown) (no (unknown) (unknown) other pain. She is (units (unknown) date) not had a unknown) mammogram. No cancer history that she knows of. (unknown) (no (unknown) (unknown) pain, (units (unkno wn) date) unknown) (unknown) (no (unknown) (unknown) patient size.? (units (unknown) date) unknown) (unknown) (no (unknown) (unknown) patients with (units ( unknown) date) unknown) (unknown) (no (unknown) (unknown) patients. 6 mm or (units (unknown) date) larger.? CT at 3-6 unknown) months. Subsequent management based on most (unknown) (no (unknown) (unknown) performed, with (units (unknown) date) unknown) (unknown) (no (unknown) (unknown) persistence, (units (u nknown) date) unknown) (unknown) (no (unknown) (unknown) pleural effusions (units (unknown) date) or pneumothorax.? unknown) Central and peripheral airways appear patent (unknown) (no (unknown) (unknown) ranitidine HCl 150 (units (unknown) date) mg tablet (Acid 150 unknown) mg PO PRN PRN Acid Reflux 04/05/18 (unknown) (no (unknown) (unknown) ranitidine HCl (units (unknown) date) [Acid Kitchen Aide unknown) (ranitidine)] 150 mg Tablet (unknown) (no (unknown) (unknown) recommendations. (units (unknown) date) unknown) (unknown) (no (unknown) (unknown) redness (units (unkno wn) date) unknown) (unknown) (no (unknown) (unknown) risk (units (unkno wn) date) unknown) (unknown) (no (unknown) (unknown) routine (units (unkno wn) date) unknown) (unknown) (no (unknown) (unknown) signs of sepsis. (units (unknown) date) TSH is slightly low unknown) at 0.8. CT chest abdomen pelvis does show (unknown) (no (unknown) (unknown) size.? Esophagus (units (unknown) date) is normal in unknown) caliber.? No hiatal hernia.? (unknown) (no (unknown) (unknown) stool softener (units (unknown) date) such as Colace, unknown) Dulcolax, MiraLAX or prune juice, to help avoid (unknown) (no (unknown) (unknown) sub-solid nodules<6 (units (unknown) date) mmCT at 3-6 months, unknown) then CT consider at 2 + 4 years for high (unknown) (no (unknown) (unknown) suspicious (units (unk nown) date) lesions. unknown) Recommendations do not apply to lung cancer screening, (unknown) (no (unknown) (unknown) tablet vomiting (units (unknown) date) #14 tabs unknown) (unknown) (no (unknown) (unknown) tablet vomiting (units (unknown) date) #20 tabs unknown) (unknown) (no (unknown) (unknown) tabs (units (unkno wn) date) unknown) (unknown) (no (unknown) (unknown) the (units (unkno wn) date) unknown) (unknown) (no (unknown) (unknown) then annual CT (units ( unknown) date) until 5 years if unknown) unchanged and solid component remains <6 mm.? (unknown) (no (unknown) (unknown) then (units (unkno wn) date) unknown) (unknown) (no (unknown) (unknown) this time she will (units (unknown) date) need close unknown) outpatient follow-up. Patient does not have a (unknown) (no (unknown) (unknown) throat was (units (unk nown) date) unknown) (unknown) (no (unknown) (unknown) tingly (units (unkno wn) date) unknown) (unknown) (no (unknown) (unknown) touch both and 12 (units (unknown) date) o'clock position. unknown) Blood work is overall reassuring without (unknown) (no (unknown) (unknown) underlying cancer. (units (unknown) date) However a both unknown) breast lumps feel like lymph nodes tender to (unknown) (no (unknown) (unknown) unremarkable, (units ( unknown) date) without calcified unknown) stones .? Biliary system is non dilated.? (unknown) (no (unknown) (unknown) unremarkable.? (units (unknown) date) unknown) (unknown) (no (unknown) (unknown) up she will need (units (unknown) date) repeat chest CT. unknown) (unknown) (no (unknown) (unknown) when she was in (units (unknown) date) her 20s however it unknown) turned out to be a false alarm (unknown) (no (unknown) (unknown) which are painful (units (unknown) date) weight loss and unknown) night sweats. Certainly concern is for some (unknown) (no (unknown) (unknown) will need to be (units (unknown) date) through your unknown) provider. (unknown) (no (unknown) (unknown) wondering baseline (units (unknown) date) noted unknown) (unknown) (no (unknown) (unknown) years until 5 (units ( unknown) date) years.6 mm or unknown) larger (part solid)CT at 3-6 months to confirm Result panel 569 (unknown) (no date) (unknown) (unknown) (no value) (units (un known) unknown) (unknown) (no date) (unknown) (unknown) NO GROWTH (units (unk nown) AFTER 24 unknown) HOURS Result panel 570 (unknown) (no date) (unknown) (unknown) (no value) (units (un known) unknown) (unknown) (no date) (unknown) (unknown) NO GROWTH (units (unk nown) AFTER 24 unknown) HOURS Result panel 571 (unknown) (no date) (unknown) (unknown) (no value) (units (un known) unknown) (unknown) (no date) (unknown) (unknown) NO GROWTH (units (unk nown) AFTER 48 unknown) HOURS Result panel 572 (unknown) (no date) (unknown) (unknown) (no value) (units (un known) unknown) (unknown) (no date) (unknown) (unknown) NO GROWTH (units (unk nown) AFTER 48 unknown) HOURS Result panel 573 (unknown) (no (unknown) (unknown) (no value) (units (unk nown) date) unknown) (unknown) (no (unknown) (unknown) *JAVIER* 36 Y F, (units (unknown) date) patient here today unknown) r/t ED f/u r/t bilat breast lumps. (unknown) (no (unknown) (unknown) 03/08/22 (units (unkno wn) date) unknown) (unknown) (no (unknown) (unknown) 10:24) (units (unkno wn) date) unknown) (unknown) (no (unknown) (unknown) Age/Sex: 36 / F (units (unknown) date) Date of Service: unknown) (unknown) (no (unknown) (unknown) Allergies (units (unkn own) date) unknown) (unknown) (no (unknown) (unknown) CHIKIS Cintron (units ( unknown) date) [id number] unknown) (unknown) (no (unknown) (unknown) Asthma (units (unkno wn) date) unknown) (unknown) (no (unknown) (unknown) Attending Dr: (units ( unknown) date) Kolton SCOTT unknown) (unknown) (no (unknown) (unknown) : 1985 (units (unknown) date) Acct:[id number] unknown) (unknown) (no (unknown) (unknown) Dept at (units (unkno wn) date) . unknown) (unknown) (no (unknown) (unknown) Documented By: (units (unknown) date) Kolton Patino unknown) 03/08/22 0948 (unknown) (no (unknown) (unknown) Draft (units (unkno wn) date) unknown) (unknown) (no (unknown) (unknown) Family Practice (units (unknown) date) Office Visit unknown) (unknown) (no (unknown) (unknown) [facility]) (unknown) (no (unknown) (unknown) [place] (units (unkno wn) date) unknown) (unknown) (no (unknown) (unknown) Gastrointestinal (units (unknown) date) Upset unknown) (unknown) (no (unknown) (unknown) H/O exploratory (units (unknown) date) laparotomy unknown) (unknown) (no (unknown) (unknown) H/O left knee (units ( unknown) date) surgery unknown) (unknown) (no (unknown) (unknown) Health Management (units (unknown) date) reviewed with unknown) patient: No (unknown) (no (unknown) (unknown) Health Management (units (unknown) date) unknown) (unknown) (no (unknown) (unknown) History of open (units (unknown) date) heart surgery unknown) (unknown) (no (unknown) (unknown) History of surgery (units (unknown) date) unknown) (unknown) (no (unknown) (unknown) Intake Note: (units (u nknown) date) unknown) (unknown) (no (unknown) (unknown) Intake (units (unkno wn) date) unknown) (unknown) (no (unknown) (unknown) Irritation/redness (units (unknown) date) unknown) (unknown) (no (unknown) (unknown) Kidney infection (units (unknown) date) unknown) (unknown) (no (unknown) (unknown) Last Menstural (units (unknown) date) Cycle + Details unknown) (unknown) (no (unknown) (unknown) Loc: [facility] (units (unkno wn) date) unknown) (unknown) (no (unknown) (unknown) [id number] (units (unk nown) date) unknown) (unknown) (no (unknown) (unknown) Medical History (units (unknown) date) (Updated 03/05/22 @ unknown) 13:36 by Danita Vila DO) (unknown) (no (unknown) (unknown) Other Menstrual (units (unknown) date) Period: Other unknown) (unknown) (no (unknown) (unknown) PFSH (units (unkno wn) date) unknown) (unknown) (no (unknown) (unknown) Patient: (units (unkno wn) date) Carmina Castillo unknown) MR#: (unknown) (no (unknown) (unknown) Penicillins (units (un known) date) Allergy unknown) (Intermediate, Verified 03/05/22 10:24) (unknown) (no (unknown) (unknown) Pertussis Vaccines (units (unknown) date) [PERTUSSIS unknown) VACCINES] Allergy (Unknown, Verified 03/05/22 (unknown) (no (unknown) (unknown) Rash (units (unkno wn) date) unknown) (unknown) (no (unknown) (unknown) Rash, throat was (units (unknown) date) tingly unknown) (unknown) (no (unknown) (unknown) Reason For Visit (units (unknown) date) unknown) (unknown) (no (unknown) (unknown) S/P laparoscopic (units (unknown) date) supracervical unknown) hysterectomy (04/04/18) (unknown) (no (unknown) (unknown) Seizure (units (unkno wn) date) unknown) (unknown) (no (unknown) (unknown) Signed By: (units (unk nown) date) unknown) (unknown) (no (unknown) (unknown) Smoking Status: (units (unknown) date) Former smoker unknown) (unknown) (no (unknown) (unknown) Social History (units (unknown) date) unknown) (unknown) (no (unknown) (unknown) Stomach pain, (units ( unknown) date) nausea, headache unknown) (unknown) (no (unknown) (unknown) Surgical History (units (unknown) date) (Reviewed 03/05/22 unknown) @ 11:22 by Danita Vila DO) (unknown) (no (unknown) (unknown) This note may have (units (unknown) date) been all or unknown) partially generated using voice recognition (unknown) (no (unknown) (unknown) Tobacco + (units (unkn own) date) Substance Use unknown) (unknown) (no (unknown) (unknown) Tobacco Status (units (unknown) date) unknown) (unknown) (no (unknown) (unknown) Visit Reasons: ER (units (unknown) date) f/u: Bilateral unknown) breast lumps*est w/Javier 03/13 (unknown) (no (unknown) (unknown) amoxicillin (units (un known) date) Allergy unknown) (Intermediate, Verified 03/05/22 10:24) (unknown) (no (unknown) (unknown) azithromycin (units (u nknown) date) Allergy unknown) (Intermediate, Verified 03/05/22 10:24) (unknown) (no (unknown) (unknown) ciprofloxacin (units ( unknown) date) Allergy unknown) (Intermediate, Verified 03/05/22 10:24) (unknown) (no (unknown) (unknown) gluten Adverse (units (unknown) date) Reaction (Mild, unknown) Verified 03/05/22 10:24) (unknown) (no (unknown) (unknown) have occurred. If (units (unknown) date) there are any unknown) questions, please contact the Medical Records (unknown) (no (unknown) (unknown) household members: (units (unknown) date) spouse and children unknown) (unknown) (no (unknown) (unknown) hydromorphone (units ( unknown) date) Allergy (Mild, unknown) Verified 03/05/22 10:24) (unknown) (no (unknown) (unknown) ibuprofen Allergy (units (unknown) date) (Mild, Verified unknown) 03/05/22 10:24) (unknown) (no (unknown) (unknown) may occur. (units (unk nown) date) Occasional unknown) wrong-word or 'sound-alike' substitutions may have (unknown) (no (unknown) (unknown) nickel Adverse (units (unknown) date) Reaction (Mild, unknown) Verified 03/05/22 10:24) (unknown) (no (unknown) (unknown) occurred due to (units (unknown) date) the inherent unknown) limitations of voice recognition software. Please (unknown) (no (unknown) (unknown) read the note (units ( unknown) date) carefully and unknown) recognize, using context, where these substitutions (unknown) (no (unknown) (unknown) software. Although (units (unknown) date) every effort is unknown) made to edit content, milling machine operator gear errors Result panel 574 (unknown) (no (unknown) (unknown) (no value) (units (unk nown) date) unknown) (unknown) (no (unknown) (unknown) *JAVIER* 36 Y F, (units (unknown) date) patient here today unknown) r/t ED f/u r/t bilat breast lumps. (unknown) (no (unknown) (unknown) 03/05/22 [Rx (units (u nknown) date) Confirmed 03/08/22] unknown) (unknown) (no (unknown) (unknown) 03/08/22 (units (unkno wn) date) unknown) (unknown) (no (unknown) (unknown) 09:51) (units (unkno wn) date) unknown) (unknown) (no (unknown) (unknown) 09:54 (units (unkno wn) date) unknown) (unknown) (no (unknown) (unknown) Age/Sex: 36 / F (units (unknown) date) Date of Service: unknown) (unknown) (no (unknown) (unknown) Allergies (units (unkn own) date) unknown) (unknown) (no (unknown) (unknown) [place], [place] (units ( unknown) date) [id number] unknown) (unknown) (no (unknown) (unknown) Asthma (units (unkno wn) date) unknown) (unknown) (no (unknown) (unknown) Attending Dr: (units ( unknown) date) Kolton SCOTT unknown) (unknown) (no (unknown) (unknown) BMI 18.4 (units (unkno wn) date) unknown) (unknown) (no (unknown) (unknown) BP 120/62 (units (unkn own) date) unknown) (unknown) (no (unknown) (unknown) Blood Pressure (units (unknown) date) Location Lt unknown) brachial (unknown) (no (unknown) (unknown) : 1985 (units (unknown) date) Acct:[id number] unknown) (unknown) (no (unknown) (unknown) Dept at (units (unkno wn) date) . unknown) (unknown) (no (unknown) (unknown) Documented By: (units (unknown) date) Kolton Patino unknown) 03/08/22 0948 (unknown) (no (unknown) (unknown) Draft (units (unkno wn) date) unknown) (unknown) (no (unknown) (unknown) Family Practice (units (unknown) date) Office Visit unknown) (unknown) (no (unknown) (unknown) [facility] ([facility] unknown) (unknown) (no (unknown) (unknown) [place] (units (unkno wn) date) unknown) (unknown) (no (unknown) (unknown) Gastrointestinal (units (unknown) date) Upset unknown) (unknown) (no (unknown) (unknown) H/O exploratory (units (unknown) date) laparotomy unknown) (unknown) (no (unknown) (unknown) H/O left knee (units ( unknown) date) surgery unknown) (unknown) (no (unknown) (unknown) Health Management (units (unknown) date) reviewed with unknown) patient: No (unknown) (no (unknown) (unknown) Health Management (units (unknown) date) unknown) (unknown) (no (unknown) (unknown) Height 5 ft 3 in (units (unknown) date) unknown) (unknown) (no (unknown) (unknown) History of open (units (unknown) date) heart surgery unknown) (unknown) (no (unknown) (unknown) History of surgery (units (unknown) date) unknown) (unknown) (no (unknown) (unknown) Intake Note: (units (u nknown) date) unknown) (unknown) (no (unknown) (unknown) Intake (units (unkno wn) date) unknown) (unknown) (no (unknown) (unknown) Irritation/redness (units (unknown) date) unknown) (unknown) (no (unknown) (unknown) Is last menstrual (units (unknown) date) period known: No unknown) (unknown) (no (unknown) (unknown) Kidney infection (units (unknown) date) unknown) (unknown) (no (unknown) (unknown) Last Menstural (units (unknown) date) Cycle + Details unknown) (unknown) (no (unknown) (unknown) Loc: [facility] (units (unkno wn) date) unknown) (unknown) (no (unknown) (unknown) [id number] (units (unk nown) date) unknown) (unknown) (no (unknown) (unknown) Medical History (units (unknown) date) (Updated 03/05/22 @ unknown) 13:36 by Danita Vila DO) (unknown) (no (unknown) (unknown) Medications (units (un known) date) unknown) (unknown) (no (unknown) (unknown) Other Menstrual (units (unknown) date) Period: Other unknown) (unknown) (no (unknown) (unknown) Oxygen Delivery (units (unknown) date) Method room air unknown) (unknown) (no (unknown) (unknown) PFSH (units (unkno wn) date) unknown) (unknown) (no (unknown) (unknown) Patient: (units (unkno wn) date) Carmina Castillo unknown) MR#: (unknown) (no (unknown) (unknown) Penicillins (units (un known) date) Allergy unknown) (Intermediate, Verified 03/08/22 09:51) (unknown) (no (unknown) (unknown) Pertussis Vaccines (units (unknown) date) [PERTUSSIS unknown) VACCINES] Allergy (Unknown, Verified 03/08/22 (unknown) (no (unknown) (unknown) Position Sitting (units (unknown) date) unknown) (unknown) (no (unknown) (unknown) Pulse 77 (units (unkno wn) date) unknown) (unknown) (no (unknown) (unknown) Pulse Oximetry (%) (units (unknown) date) 98 unknown) (unknown) (no (unknown) (unknown) Pulse Source (units (u nknown) date) Monitor unknown) (unknown) (no (unknown) (unknown) Rash (units (unkno wn) date) unknown) (unknown) (no (unknown) (unknown) Rash, throat was (units (unknown) date) tingly unknown) (unknown) (no (unknown) (unknown) Reason For Visit (units (unknown) date) unknown) (unknown) (no (unknown) (unknown) Respiration 14 (units (unknown) date) unknown) (unknown) (no (unknown) (unknown) S/P laparoscopic (units (unknown) date) supracervical unknown) hysterectomy (04/04/18) (unknown) (no (unknown) (unknown) Seizure (units (unkno wn) date) unknown) (unknown) (no (unknown) (unknown) Signed By: (units (unk nown) date) unknown) (unknown) (no (unknown) (unknown) Smoking Status: (units (unknown) date) Former smoker unknown) (unknown) (no (unknown) (unknown) Social History (units (unknown) date) unknown) (unknown) (no (unknown) (unknown) Stomach pain, (units ( unknown) date) nausea, headache unknown) (unknown) (no (unknown) (unknown) Surgical History (units (unknown) date) (Reviewed 03/05/22 unknown) @ 11:22 by Danita Vila DO) (unknown) (no (unknown) (unknown) Temp 98.7 F (units (un known) date) unknown) (unknown) (no (unknown) (unknown) Temp Source (units (un known) date) Temporal Artery unknown) Scan (unknown) (no (unknown) (unknown) This note may have (units (unknown) date) been all or unknown) partially generated using voice recognition (unknown) (no (unknown) (unknown) Tobacco + (units (unkn own) date) Substance Use unknown) (unknown) (no (unknown) (unknown) Tobacco Status (units (unknown) date) unknown) (unknown) (no (unknown) (unknown) Visit Reasons: ER (units (unknown) date) f/u: Bilateral unknown) breast lumps*est w/Javier 03/13 (unknown) (no (unknown) (unknown) Vitals (units (unkno wn) date) unknown) (unknown) (no (unknown) (unknown) Weight 104 lb 4 oz (units (unknown) date) unknown) (unknown) (no (unknown) (unknown) albuterol sulfate (units (unknown) date) 90 mcg/actuation unknown) aerosol inhaler (ProAir HFA) 1 puff (unknown) (no (unknown) (unknown) amoxicillin (units (un known) date) Allergy unknown) (Intermediate, Verified 03/08/22 09:51) (unknown) (no (unknown) (unknown) azithromycin (units (u nknown) date) Allergy unknown) (Intermediate, Verified 03/08/22 09:51) (unknown) (no (unknown) (unknown) ciprofloxacin (units ( unknown) date) Allergy unknown) (Intermediate, Verified 03/08/22 09:51) (unknown) (no (unknown) (unknown) gluten Adverse (units (unknown) date) Reaction (Mild, unknown) Verified 03/08/22 09:51) (unknown) (no (unknown) (unknown) have occurred. If (units (unknown) date) there are any unknown) questions, please contact the Medical Records (unknown) (no (unknown) (unknown) household members: (units (unknown) date) spouse and children unknown) (unknown) (no (unknown) (unknown) hydrocodone 5 (units ( unknown) date) mg-acetaminophen unknown) 325 mg tablet 1 tab PO Q6H PRN pain #10 tabs (unknown) (no (unknown) (unknown) hydromorphone (units ( unknown) date) Allergy (Mild, unknown) Verified 03/08/22 09:51) (unknown) (no (unknown) (unknown) ibuprofen Allergy (units (unknown) date) (Mild, Verified unknown) 03/08/22 09:51) (unknown) (no (unknown) (unknown) inhalation Q6H PRN (units (unknown) date) Adequate unknown) Ventilation 11/14/17 [History Confirmed 03/08/22] (unknown) (no (unknown) (unknown) may occur. (units (unk nown) date) Occasional unknown) wrong-word or 'sound-alike' substitutions may have (unknown) (no (unknown) (unknown) nickel Adverse (units (unknown) date) Reaction (Mild, unknown) Verified 03/08/22 09:51) (unknown) (no (unknown) (unknown) occurred due to (units (unknown) date) the inherent unknown) limitations of voice recognition software. Please (unknown) (no (unknown) (unknown) ondansetron 4 mg (units (unknown) date) disintegrating unknown) tablet 4 mg PO QID PRN nausea and vomiting #14 (unknown) (no (unknown) (unknown) read the note (units ( unknown) date) carefully and unknown) recognize, using context, where these substitutions (unknown) (no (unknown) (unknown) software. Although (units (unknown) date) every effort is unknown) made to edit content, milling machine operator gear errors (unknown) (no (unknown) (unknown) tabs 04/05/18 [Rx (units (unknown) date) Confirmed 03/08/22] unknown) Result panel 575 (unknown) (no (unknown) (unknown) (no value) (units (unk nown) date) unknown) (unknown) (no (unknown) (unknown) (1) Pulmonary (units ( unknown) date) nodule: unknown) (unknown) (no (unknown) (unknown) *JAVIER* 36 Y F, (units (unknown) date) patient here today unknown) r/t ED f/u r/t bilat breast lumps. (unknown) (no (unknown) (unknown) 03/05/22 [Rx (units (u nknown) date) Confirmed 03/08/22] unknown) (unknown) (no (unknown) (unknown) 03/08/22 (units (unkno wn) date) unknown) (unknown) (no (unknown) (unknown) 09:51) (units (unkno wn) date) unknown) (unknown) (no (unknown) (unknown) 09:54 (units (unkno wn) date) unknown) (unknown) (no (unknown) (unknown) Age/Sex: 36 / F (units (unknown) date) Date of Service: unknown) (unknown) (no (unknown) (unknown) Allergies (units (unkn own) date) unknown) (unknown) (no (unknown) (unknown) [place], [place] (units ( unknown) date) [id number] unknown) (unknown) (no (unknown) (unknown) Assessment + Plan (units (unknown) date) unknown) (unknown) (no (unknown) (unknown) Asthma (units (unkno wn) date) unknown) (unknown) (no (unknown) (unknown) Attending Dr: (units ( unknown) date) Kolton SCOTT unknown) (unknown) (no (unknown) (unknown) BMI 18.4 (units (unkno wn) date) unknown) (unknown) (no (unknown) (unknown) BP 120/62 (units (unkn own) date) unknown) (unknown) (no (unknown) (unknown) Blood Pressure (units (unknown) date) Location Lt unknown) brachial (unknown) (no (unknown) (unknown) CT chest w con 3 (units (unknown) date) Months R91.1 - unknown) Solitary pulmonary nodule (unknown) (no (unknown) (unknown) : 1985 (units (unknown) date) Acct:[id number] unknown) (unknown) (no (unknown) (unknown) Dept at (units (unkno wn) date) . unknown) (unknown) (no (unknown) (unknown) Details: (units (unkno wn) date) unknown) (unknown) (no (unknown) (unknown) Documented By: (units (unknown) date) Kolton Patino unknown) 03/08/22 0948 (unknown) (no (unknown) (unknown) Draft (units (unkno wn) date) unknown) (unknown) (no (unknown) (unknown) Family Practice (units (unknown) date) Office Visit unknown) (unknown) (no (unknown) (unknown) [facility] unknown) (unknown) (no (unknown) (unknown) [place] (units (unkno wn) date) unknown) (unknown) (no (unknown) (unknown) Gastrointestinal (units (unknown) date) Upset unknown) (unknown) (no (unknown) (unknown) H/O exploratory (units (unknown) date) laparotomy unknown) (unknown) (no (unknown) (unknown) H/O left knee (units ( unknown) date) surgery unknown) (unknown) (no (unknown) (unknown) HPI (units (unkno wn) date) unknown) (unknown) (no (unknown) (unknown) Had the same lumps (units (unknown) date) in the same unknown) location about 1 year ago. Went away without (unknown) (no (unknown) (unknown) Health Management (units (unknown) date) reviewed with unknown) patient: No (unknown) (no (unknown) (unknown) Health Management (units (unknown) date) unknown) (unknown) (no (unknown) (unknown) Height 5 ft 3 in (units (unknown) date) unknown) (unknown) (no (unknown) (unknown) History of open (units (unknown) date) heart surgery unknown) (unknown) (no (unknown) (unknown) History of surgery (units (unknown) date) unknown) (unknown) (no (unknown) (unknown) Intake Note: (units (u nknown) date) unknown) (unknown) (no (unknown) (unknown) Intake (units (unkno wn) date) unknown) (unknown) (no (unknown) (unknown) Irritation/redness (units (unknown) date) unknown) (unknown) (no (unknown) (unknown) Is last menstrual (units (unknown) date) period known: No unknown) (unknown) (no (unknown) (unknown) Kidney infection (units (unknown) date) unknown) (unknown) (no (unknown) (unknown) Last Menstural (units (unknown) date) Cycle + Details unknown) (unknown) (no (unknown) (unknown) Loc: [facility] (units (unkno wn) date) unknown) (unknown) (no (unknown) (unknown) Lung nodules (units (u nknown) date) unknown) (unknown) (no (unknown) (unknown) [id number] (units (unk nown) date) unknown) (unknown) (no (unknown) (unknown) Medical History (units (unknown) date) (Updated 03/05/22 @ unknown) 13:36 by Danita Vila DO) (unknown) (no (unknown) (unknown) Medications (units (un known) date) unknown) (unknown) (no (unknown) (unknown) Orders (units (unkno wn) date) unknown) (unknown) (no (unknown) (unknown) Orders: (units (unkno wn) date) unknown) (unknown) (no (unknown) (unknown) Other Menstrual (units (unknown) date) Period: Other unknown) (unknown) (no (unknown) (unknown) Oxygen Delivery (units (unknown) date) Method room air unknown) (unknown) (no (unknown) (unknown) PFSH (units (unkno wn) date) unknown) (unknown) (no (unknown) (unknown) Patient: (units (unkno wn) date) Carmina Castillo unknown) MR#: (unknown) (no (unknown) (unknown) Penicillins (units (un known) date) Allergy unknown) (Intermediate, Verified 03/08/22 09:51) (unknown) (no (unknown) (unknown) Pertussis Vaccines (units (unknown) date) [PERTUSSIS unknown) VACCINES] Allergy (Unknown, Verified 03/08/22 (unknown) (no (unknown) (unknown) Position Sitting (units (unknown) date) unknown) (unknown) (no (unknown) (unknown) Pulse 77 (units (unkno wn) date) unknown) (unknown) (no (unknown) (unknown) Pulse Oximetry (%) (units (unknown) date) 98 unknown) (unknown) (no (unknown) (unknown) Pulse Source (units (u nknown) date) Monitor unknown) (unknown) (no (unknown) (unknown) Rash (units (unkno wn) date) unknown) (unknown) (no (unknown) (unknown) Rash, throat was (units (unknown) date) tingly unknown) (unknown) (no (unknown) (unknown) Reason For Visit (units (unknown) date) unknown) (unknown) (no (unknown) (unknown) Respiration 14 (units (unknown) date) unknown) (unknown) (no (unknown) (unknown) S/P laparoscopic (units (unknown) date) supracervical unknown) hysterectomy (04/04/18) (unknown) (no (unknown) (unknown) Seizure (units (unkno wn) date) unknown) (unknown) (no (unknown) (unknown) Signed By: (units (unk nown) date) unknown) (unknown) (no (unknown) (unknown) Smoked for about (units (unknown) date) 10 years, quit unknown) about 8 years ago. History of exercise induced (unknown) (no (unknown) (unknown) Smoking Status: (units (unknown) date) Former smoker unknown) (unknown) (no (unknown) (unknown) Social History (units (unknown) date) unknown) (unknown) (no (unknown) (unknown) Status: Acute (units ( unknown) date) unknown) (unknown) (no (unknown) (unknown) Stomach pain, (units ( unknown) date) nausea, headache unknown) (unknown) (no (unknown) (unknown) Surgical History (units (unknown) date) (Reviewed 03/05/22 unknown) @ 11:22 by Danita Vila DO) (unknown) (no (unknown) (unknown) Temp 98.7 F (units (un known) date) unknown) (unknown) (no (unknown) (unknown) Temp Source (units (un known) date) Temporal Artery unknown) Scan (unknown) (no (unknown) (unknown) This note may have (units (unknown) date) been all or unknown) partially generated using voice recognition (unknown) (no (unknown) (unknown) Tobacco + (units (unkn own) date) Substance Use unknown) (unknown) (no (unknown) (unknown) Tobacco Status (units (unknown) date) unknown) (unknown) (no (unknown) (unknown) Visit Reasons: ER (units (unknown) date) f/u: Bilateral unknown) breast lumps*est w/Javier 03/13 (unknown) (no (unknown) (unknown) Vitals (units (unkno wn) date) unknown) (unknown) (no (unknown) (unknown) Weight 104 lb 4 oz (units (unknown) date) unknown) (unknown) (no (unknown) (unknown) albuterol sulfate (units (unknown) date) 90 mcg/actuation unknown) aerosol inhaler (ProAir HFA) 1 puff (unknown) (no (unknown) (unknown) amoxicillin (units (un known) date) Allergy unknown) (Intermediate, Verified 03/08/22 09:51) (unknown) (no (unknown) (unknown) asthma (units (unkno wn) date) unknown) (unknown) (no (unknown) (unknown) azithromycin (units (u nknown) date) Allergy unknown) (Intermediate, Verified 03/08/22 09:51) (unknown) (no (unknown) (unknown) ciprofloxacin (units ( unknown) date) Allergy unknown) (Intermediate, Verified 03/08/22 09:51) (unknown) (no (unknown) (unknown) gluten Adverse (units (unknown) date) Reaction (Mild, unknown) Verified 03/08/22 09:51) (unknown) (no (unknown) (unknown) have occurred. If (units (unknown) date) there are any unknown) questions, please contact the Medical Records (unknown) (no (unknown) (unknown) household members: (units (unknown) date) spouse and children unknown) (unknown) (no (unknown) (unknown) hydrocodone 5 (units ( unknown) date) mg-acetaminophen unknown) 325 mg tablet 1 tab PO Q6H PRN pain #10 tabs (unknown) (no (unknown) (unknown) hydromorphone (units ( unknown) date) Allergy (Mild, unknown) Verified 03/08/22 09:51) (unknown) (no (unknown) (unknown) ibuprofen Allergy (units (unknown) date) (Mild, Verified unknown) 03/08/22 09:51) (unknown) (no (unknown) (unknown) inhalation Q6H PRN (units (unknown) date) Adequate unknown) Ventilation 11/14/17 [History Confirmed 03/08/22] (unknown) (no (unknown) (unknown) may occur. (units (unk nown) date) Occasional unknown) wrong-word or 'sound-alike' substitutions may have (unknown) (no (unknown) (unknown) nickel Adverse (units (unknown) date) Reaction (Mild, unknown) Verified 03/08/22 09:51) (unknown) (no (unknown) (unknown) occurred due to (units (unknown) date) the inherent unknown) limitations of voice recognition software. Please (unknown) (no (unknown) (unknown) ondansetron 4 mg (units (unknown) date) disintegrating unknown) tablet 4 mg PO QID PRN nausea and vomiting #14 (unknown) (no (unknown) (unknown) read the note (units ( unknown) date) carefully and unknown) recognize, using context, where these substitutions (unknown) (no (unknown) (unknown) software. 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 Lumps (units (unknown) date) came about a week unknown) ago. Result panel 576 (unknown) (no (unknown) (unknown) (no value) (units (unk nown) date) unknown) (unknown) (no (unknown) (unknown) (1) Pulmonary (units ( unknown) date) nodule: unknown) (unknown) (no (unknown) (unknown) *JAVIER* 36 Y F, (units (unknown) date) patient here today unknown) r/t ED f/u r/t bilat breast lumps. (unknown) (no (unknown) (unknown) 03/05/22 [Rx (units (u nknown) date) Confirmed 03/08/22] unknown) (unknown) (no (unknown) (unknown) 03/08/22 (units (unkno wn) date) unknown) (unknown) (no (unknown) (unknown) 03/08/22] (units (unkn own) date) unknown) (unknown) (no (unknown) (unknown) 09:51) (units (unkno wn) date) unknown) (unknown) (no (unknown) (unknown) 09:54 (units (unkno wn) date) unknown) (unknown) (no (unknown) (unknown) Age/Sex: 36 / F (units (unknown) date) Date of Service: unknown) (unknown) (no (unknown) (unknown) Allergies (units (unkn own) date) unknown) (unknown) (no (unknown) (unknown) [place], [place] (units ( unknown) date) [id number] unknown) (unknown) (no (unknown) (unknown) Assessment + Plan (units (unknown) date) unknown) (unknown) (no (unknown) (unknown) Asthma (units (unkno wn) date) unknown) (unknown) (no (unknown) (unknown) Attending Dr: (units ( unknown) date) Kolton SOCTT unknown) (unknown) (no (unknown) (unknown) BMI 18.4 (units (unkno wn) date) unknown) (unknown) (no (unknown) (unknown) BP 120/62 (units (unkn own) date) unknown) (unknown) (no (unknown) (unknown) Blood Pressure (units (unknown) date) Location Lt unknown) brachial (unknown) (no (unknown) (unknown) CT chest w con 3 (units (unknown) date) Months R91.1 - unknown) Solitary pulmonary nodule (unknown) (no (unknown) (unknown) : 1985 (units (unknown) date) Acct:[id number] unknown) (unknown) (no (unknown) (unknown) Dept at (units (unkno wn) date) . unknown) (unknown) (no (unknown) (unknown) Details: (units (unkno wn) date) unknown) (unknown) (no (unknown) (unknown) Documented By: (units (unknown) date) Kolton Patino unknown) 03/08/22 0948 (unknown) (no (unknown) (unknown) Draft (units (unkno wn) date) unknown) (unknown) (no (unknown) (unknown) Family Practice (units (unknown) date) Office Visit unknown) (unknown) (no (unknown) (unknown) [facility] ([facility] date[facility]) (unknown) (no (unknown) (unknown) [place] (units (unkno wn) date) unknown) (unknown) (no (unknown) (unknown) Gastrointestinal (units (unknown) date) Upset unknown) (unknown) (no (unknown) (unknown) H/O exploratory (units (unknown) date) laparotomy unknown) (unknown) (no (unknown) (unknown) H/O left knee (units ( unknown) date) surgery unknown) (unknown) (no (unknown) (unknown) HPI (units (unkno wn) date) unknown) (unknown) (no (unknown) (unknown) Had the same lumps (units (unknown) date) in the same unknown) location about 1 year ago. Went away without (unknown) (no (unknown) (unknown) Health Management (units (unknown) date) reviewed with unknown) patient: No (unknown) (no (unknown) (unknown) Health Management (units (unknown) date) unknown) (unknown) (no (unknown) (unknown) Height 5 ft 3 in (units (unknown) date) unknown) (unknown) (no (unknown) (unknown) History of open (units (unknown) date) heart surgery unknown) (unknown) (no (unknown) (unknown) History of surgery (units (unknown) date) unknown) (unknown) (no (unknown) (unknown) Intake Note: (units (u nknown) date) unknown) (unknown) (no (unknown) (unknown) Intake (units (unkno wn) date) unknown) (unknown) (no (unknown) (unknown) Irritation/redness (units (unknown) date) unknown) (unknown) (no (unknown) (unknown) Is last menstrual (units (unknown) date) period known: No unknown) (unknown) (no (unknown) (unknown) Kidney infection (units (unknown) date) unknown) (unknown) (no (unknown) (unknown) Last Menstural (units (unknown) date) Cycle + Details unknown) (unknown) (no (unknown) (unknown) Loc: [facility] (units (unkno wn) date) unknown) (unknown) (no (unknown) (unknown) Lung nodules (units (u nknown) date) unknown) (unknown) (no (unknown) (unknown) [id number] (units (unk nown) date) unknown) (unknown) (no (unknown) (unknown) Medical History (units (unknown) date) (Updated 03/05/22 @ unknown) 13:36 by Danita Vila DO) (unknown) (no (unknown) (unknown) Medications (units (un known) date) unknown) (unknown) (no (unknown) (unknown) Medications: (units (u nknown) date) unknown) (unknown) (no (unknown) (unknown) New (units (unkno wn) date) unknown) (unknown) (no (unknown) (unknown) Orders (units (unkno wn) date) unknown) (unknown) (no (unknown) (unknown) Orders: (units (unkno wn) date) unknown) (unknown) (no (unknown) (unknown) Other Menstrual (units (unknown) date) Period: Other unknown) (unknown) (no (unknown) (unknown) Oxygen Delivery (units (unknown) date) Method room air unknown) (unknown) (no (unknown) (unknown) PFSH (units (unkno wn) date) unknown) (unknown) (no (unknown) (unknown) Patient: (units (unkno wn) date) Carmina Castillo unknown) MR#: (unknown) (no (unknown) (unknown) Penicillins (units (un known) date) Allergy unknown) (Intermediate, Verified 03/08/22 09:51) (unknown) (no (unknown) (unknown) Pertussis Vaccines (units (unknown) date) [PERTUSSIS unknown) VACCINES] Allergy (Unknown, Verified 03/08/22 (unknown) (no (unknown) (unknown) Position Sitting (units (unknown) date) unknown) (unknown) (no (unknown) (unknown) Pulse 77 (units (unkno wn) date) unknown) (unknown) (no (unknown) (unknown) Pulse Oximetry (%) (units (unknown) date) 98 unknown) (unknown) (no (unknown) (unknown) Pulse Source (units (u nknown) date) Monitor unknown) (unknown) (no (unknown) (unknown) Rash (units (unkno wn) date) unknown) (unknown) (no (unknown) (unknown) Rash, throat was (units (unknown) date) tingly unknown) (unknown) (no (unknown) (unknown) Reason For Visit (units (unknown) date) unknown) (unknown) (no (unknown) (unknown) Respiration 14 (units (unknown) date) unknown) (unknown) (no (unknown) (unknown) S/P laparoscopic (units (unknown) date) supracervical unknown) hysterectomy (04/04/18) (unknown) (no (unknown) (unknown) Seizure (units (unkno wn) date) unknown) (unknown) (no (unknown) (unknown) Signed By: (units (unk nown) date) unknown) (unknown) (no (unknown) (unknown) Smoked for about (units (unknown) date) 10 years, quit unknown) about 8 years ago. History of exercise induced (unknown) (no (unknown) (unknown) Smoking Status: (units (unknown) date) Former smoker unknown) (unknown) (no (unknown) (unknown) Social History (units (unknown) date) unknown) (unknown) (no (unknown) (unknown) Status: Acute (units ( unknown) date) unknown) (unknown) (no (unknown) (unknown) Stomach pain, (units ( unknown) date) nausea, headache unknown) (unknown) (no (unknown) (unknown) Surgical History (units (unknown) date) (Reviewed 03/05/22 unknown) @ 11:22 by Danita Vila DO) (unknown) (no (unknown) (unknown) Temp 98.7 F (units (un known) date) unknown) (unknown) (no (unknown) (unknown) Temp Source (units (un known) date) Temporal Artery unknown) Scan (unknown) (no (unknown) (unknown) This note may have (units (unknown) date) been all or unknown) partially generated using voice recognition (unknown) (no (unknown) (unknown) Tobacco + (units (unkn own) date) Substance Use unknown) (unknown) (no (unknown) (unknown) Tobacco Status (units (unknown) date) unknown) (unknown) (no (unknown) (unknown) Visit Reasons: ER (units (unknown) date) f/u: Bilateral unknown) breast lumps*est w/Javier 03/13 (unknown) (no (unknown) (unknown) Vitals (units (unkno wn) date) unknown) (unknown) (no (unknown) (unknown) Weight 104 lb 4 oz (units (unknown) date) unknown) (unknown) (no (unknown) (unknown) albuterol sulfate (units (unknown) date) 90 mcg/actuation unknown) (ProAir HFA) 1 puff inhalation Q6H PRN 8.5 (unknown) (no (unknown) (unknown) albuterol sulfate (units (unknown) date) 90 mcg/actuation unknown) aerosol inhaler (ProAir HFA) 1 puff (unknown) (no (unknown) (unknown) amoxicillin (units (un known) date) Allergy unknown) (Intermediate, Verified 03/08/22 09:51) (unknown) (no (unknown) (unknown) asthma (units (unkno wn) date) unknown) (unknown) (no (unknown) (unknown) azithromycin (units (u nknown) date) Allergy unknown) (Intermediate, Verified 03/08/22 09:51) (unknown) (no (unknown) (unknown) ciprofloxacin (units ( unknown) date) Allergy unknown) (Intermediate, Verified 03/08/22 09:51) (unknown) (no (unknown) (unknown) gluten Adverse (units (unknown) date) Reaction (Mild, unknown) Verified 03/08/22 09:51) (unknown) (no (unknown) (unknown) grams 0RF Adequate (units (unknown) date) Ventilation unknown) (unknown) (no (unknown) (unknown) have occurred. If (units (unknown) date) there are any unknown) questions, please contact the Medical Records (unknown) (no (unknown) (unknown) household members: (units (unknown) date) spouse and children unknown) (unknown) (no (unknown) (unknown) hydrocodone 5 (units ( unknown) date) mg-acetaminophen unknown) 325 mg tablet 1 tab PO Q6H PRN pain #10 tabs (unknown) (no (unknown) (unknown) hydromorphone (units ( unknown) date) Allergy (Mild, unknown) Verified 03/08/22 09:51) (unknown) (no (unknown) (unknown) ibuprofen Allergy (units (unknown) date) (Mild, Verified unknown) 03/08/22 09:51) (unknown) (no (unknown) (unknown) inhalation Q6H PRN (units (unknown) date) Adequate unknown) Ventilation #8.5 grams 03/08/22 [Rx Confirmed (unknown) (no (unknown) (unknown) may occur. (units (unk nown) date) Occasional unknown) wrong-word or 'sound-alike' substitutions may have (unknown) (no (unknown) (unknown) nickel Adverse (units (unknown) date) Reaction (Mild, unknown) Verified 03/08/22 09:51) (unknown) (no (unknown) (unknown) occurred due to (units (unknown) date) the inherent unknown) limitations of voice recognition software. Please (unknown) (no (unknown) (unknown) ondansetron 4 mg (units (unknown) date) disintegrating unknown) tablet 4 mg PO QID PRN nausea and vomiting #14 (unknown) (no (unknown) (unknown) read the note (units ( unknown) date) carefully and unknown) recognize, using context, where these substitutions (unknown) (no (unknown) (unknown) software. 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 Lumps (units (unknown) date) came about a week unknown) ago. Result panel 577 (unknown) (no (unknown) (unknown) (no value) (units (unk nown) date) unknown) (unknown) (no (unknown) (unknown) (1) Pulmonary (units ( unknown) date) nodule: unknown) (unknown) (no (unknown) (unknown) *JAVIER* 36 Y F, (units (unknown) date) patient here today unknown) r/t ED f/u r/t bilat breast lumps. (unknown) (no (unknown) (unknown) 03/05/22 [Rx (units (u nknown) date) Confirmed 03/08/22] unknown) (unknown) (no (unknown) (unknown) 03/08/22 (units (unkno wn) date) unknown) (unknown) (no (unknown) (unknown) 03/08/22] (units (unkn own) date) unknown) (unknown) (no (unknown) (unknown) 09:51) (units (unkno wn) date) unknown) (unknown) (no (unknown) (unknown) 09:54 (units (unkno wn) date) unknown) (unknown) (no (unknown) (unknown) 8 years ago. (units (u nknown) date) unknown) (unknown) (no (unknown) (unknown) Age/Sex: 36 / F (units (unknown) date) Date of Service: unknown) (unknown) (no (unknown) (unknown) Allergies (units (unkn own) date) unknown) (unknown) (no (unknown) (unknown) [place], [place] (units ( unknown) date) [id number] unknown) (unknown) (no (unknown) (unknown) Assessment + Plan (units (unknown) date) unknown) (unknown) (no (unknown) (unknown) Asthma (units (unkno wn) date) unknown) (unknown) (no (unknown) (unknown) Attending Dr: (units ( unknown) date) Kolton SCOTT unknown) (unknown) (no (unknown) (unknown) BMI 18.4 (units (unkno wn) date) unknown) (unknown) (no (unknown) (unknown) BP 120/62 (units (unkn own) date) unknown) (unknown) (no (unknown) (unknown) Blood Pressure (units (unknown) date) Location Lt unknown) brachial (unknown) (no (unknown) (unknown) CT chest w con 3 (units (unknown) date) Months R91.1 - unknown) Solitary pulmonary nodule (unknown) (no (unknown) (unknown) Chief Complaint (units (unknown) date) unknown) (unknown) (no (unknown) (unknown) Chief Complaint: (units (unknown) date) ED f/u breast lumps unknown) (unknown) (no (unknown) (unknown) : 1985 (units (unknown) date) Acct:[id number] unknown) (unknown) (no (unknown) (unknown) Dept at (units (unkno wn) date) . unknown) (unknown) (no (unknown) (unknown) Details: (units (unkno wn) date) unknown) (unknown) (no (unknown) (unknown) Documented By: (units (unknown) date) Kolton Patino TYLER unknown) 03/08/22 0948 (unknown) (no (unknown) (unknown) Draft (units (unkno wn) date) unknown) (unknown) (no (unknown) (unknown) Family Practice (units (unknown) date) Office Visit unknown) (unknown) (no (unknown) (unknown) [facility] ([facility] unknown) (unknown) (no (unknown) (unknown) [place] (units (unkno wn) date) unknown) (unknown) (no (unknown) (unknown) Gastrointestinal (units (unknown) date) Upset unknown) (unknown) (no (unknown) (unknown) H/O exploratory (units (unknown) date) laparotomy unknown) (unknown) (no (unknown) (unknown) H/O left knee (units ( unknown) date) surgery unknown) (unknown) (no (unknown) (unknown) HPI (units (unkno wn) date) unknown) (unknown) (no (unknown) (unknown) Health Management (units (unknown) date) reviewed with unknown) patient: No (unknown) (no (unknown) (unknown) Health Management (units (unknown) date) unknown) (unknown) (no (unknown) (unknown) Height 5 ft 3 in (units (unknown) date) unknown) (unknown) (no (unknown) (unknown) History of open (units (unknown) date) heart surgery unknown) (unknown) (no (unknown) (unknown) History of surgery (units (unknown) date) unknown) (unknown) (no (unknown) (unknown) Intake Note: (units (u nknown) date) unknown) (unknown) (no (unknown) (unknown) Intake (units (unkno wn) date) unknown) (unknown) (no (unknown) (unknown) Irritation/redness (units (unknown) date) unknown) (unknown) (no (unknown) (unknown) Is last menstrual (units (unknown) date) period known: No unknown) (unknown) (no (unknown) (unknown) Kidney infection (units (unknown) date) unknown) (unknown) (no (unknown) (unknown) Last Menstural (units (unknown) date) Cycle + Details unknown) (unknown) (no (unknown) (unknown) Loc: [facility] (units (unkno wn) date) unknown) (unknown) (no (unknown) (unknown) Lung nodules. ED (units (unknown) date) chest CT unknown) incidentally revealed multiple pulmonary nodules with (unknown) (no (unknown) (unknown) [id number] (units (unk nown) date) unknown) (unknown) (no (unknown) (unknown) Medical History (units (unknown) date) (Updated 03/05/22 @ unknown) 13:36 by Danita Vila DO) (unknown) (no (unknown) (unknown) Medications (units (un known) date) unknown) (unknown) (no (unknown) (unknown) Medications: (units (u nknown) date) unknown) (unknown) (no (unknown) (unknown) New (units (unkno wn) date) unknown) (unknown) (no (unknown) (unknown) Orders (units (unkno wn) date) unknown) (unknown) (no (unknown) (unknown) Orders: (units (unkno wn) date) unknown) (unknown) (no (unknown) (unknown) Other Menstrual (units (unknown) date) Period: Other unknown) (unknown) (no (unknown) (unknown) Oxygen Delivery (units (unknown) date) Method room air unknown) (unknown) (no (unknown) (unknown) PFSH (units (unkno wn) date) unknown) (unknown) (no (unknown) (unknown) Patient with (units (u nknown) date) history of asthma unknown) comes in today for ED follow up tender breast (unknown) (no (unknown) (unknown) Patient: (units (unkno wn) date) Carmina Castillo unknown) MR#: (unknown) (no (unknown) (unknown) Penicillins (units (un known) date) Allergy unknown) (Intermediate, Verified 03/08/22 09:51) (unknown) (no (unknown) (unknown) Pertussis Vaccines (units (unknown) date) [PERTUSSIS unknown) VACCINES] Allergy (Unknown, Verified 03/08/22 (unknown) (no (unknown) (unknown) Position Sitting (units (unknown) date) unknown) (unknown) (no (unknown) (unknown) Pulse 77 (units (unkno wn) date) unknown) (unknown) (no (unknown) (unknown) Pulse Oximetry (%) (units (unknown) date) 98 unknown) (unknown) (no (unknown) (unknown) Pulse Source (units (u nknown) date) Monitor unknown) (unknown) (no (unknown) (unknown) Rash (units (unkno wn) date) unknown) (unknown) (no (unknown) (unknown) Rash, throat was (units (unknown) date) tingly unknown) (unknown) (no (unknown) (unknown) Reason For Visit (units (unknown) date) unknown) (unknown) (no (unknown) (unknown) Respiration 14 (units (unknown) date) unknown) (unknown) (no (unknown) (unknown) S/P laparoscopic (units (unknown) date) supracervical unknown) hysterectomy (04/04/18) (unknown) (no (unknown) (unknown) Seizure (units (unkno wn) date) unknown) (unknown) (no (unknown) (unknown) Signed By: (units (unk nown) date) unknown) (unknown) (no (unknown) (unknown) Smoking Status: (units (unknown) date) Former smoker unknown) (unknown) (no (unknown) (unknown) Social History (units (unknown) date) unknown) (unknown) (no (unknown) (unknown) Status: Acute (units ( unknown) date) unknown) (unknown) (no (unknown) (unknown) Stomach pain, (units ( unknown) date) nausea, headache unknown) (unknown) (no (unknown) (unknown) Surgical History (units (unknown) date) (Reviewed 03/05/22 unknown) @ 11:22 by Danita Vila DO) (unknown) (no (unknown) (unknown) Temp 98.7 F (units (un known) date) unknown) (unknown) (no (unknown) (unknown) Temp Source (units (un known) date) Temporal Artery unknown) Scan (unknown) (no (unknown) (unknown) This note may have (units (unknown) date) been all or unknown) partially generated using voice recognition (unknown) (no (unknown) (unknown) Tobacco + (units (unkn own) date) Substance Use unknown) (unknown) (no (unknown) (unknown) Tobacco Status (units (unknown) date) unknown) (unknown) (no (unknown) (unknown) Visit Reasons: ER (units (unknown) date) f/u: Bilateral unknown) breast lumps*est w/Javier 03/13 (unknown) (no (unknown) (unknown) Vitals (units (unkno wn) date) unknown) (unknown) (no (unknown) (unknown) Weight 104 lb 4 oz (units (unknown) date) unknown) (unknown) (no (unknown) (unknown) albuterol sulfate (units (unknown) date) 90 mcg/actuation unknown) (ProAir HFA) 1 puff inhalation Q6H PRN 8.5 (unknown) (no (unknown) (unknown) albuterol sulfate (units (unknown) date) 90 mcg/actuation unknown) aerosol inhaler (ProAir HFA) 1 puff (unknown) (no (unknown) (unknown) amoxicillin (units (un known) date) Allergy unknown) (Intermediate, Verified 03/08/22 09:51) (unknown) (no (unknown) (unknown) azithromycin (units (u nknown) date) Allergy unknown) (Intermediate, Verified 03/08/22 09:51) (unknown) (no (unknown) (unknown) came back about a (units (unknown) date) week ago. She unknown) states she smoked for about 10 years, quit about (unknown) (no (unknown) (unknown) ciprofloxacin (units ( unknown) date) Allergy unknown) (Intermediate, Verified 03/08/22 09:51) (unknown) (no (unknown) (unknown) follow up CT scan (units (unknown) date) recommended in 3-6 unknown) months, ordered. Her PCP ordered a referral (unknown) (no (unknown) (unknown) gluten Adverse (units (unknown) date) Reaction (Mild, unknown) Verified 03/08/22 09:51) (unknown) (no (unknown) (unknown) grams 0RF Adequate (units (unknown) date) Ventilation unknown) (unknown) (no (unknown) (unknown) have occurred. If (units (unknown) date) there are any unknown) questions, please contact the Medical Records (unknown) (no (unknown) (unknown) household members: (units (unknown) date) spouse and children unknown) (unknown) (no (unknown) (unknown) hydrocodone 5 (units ( unknown) date) mg-acetaminophen unknown) 325 mg tablet 1 tab PO Q6H PRN pain #10 tabs (unknown) (no (unknown) (unknown) hydromorphone (units ( unknown) date) Allergy (Mild, unknown) Verified 03/08/22 09:51) (unknown) (no (unknown) (unknown) ibuprofen Allergy (units (unknown) date) (Mild, Verified unknown) 03/08/22 09:51) (unknown) (no (unknown) (unknown) inhalation Q6H PRN (units (unknown) date) Adequate unknown) Ventilation #8.5 grams 03/08/22 [Rx Confirmed (unknown) (no (unknown) (unknown) lumps bilaterally (units (unknown) date) for one week. Was unknown) evaluated in the ED, Had the same lumps in (unknown) (no (unknown) (unknown) may occur. (units (unk nown) date) Occasional unknown) wrong-word or 'sound-alike' substitutions may have (unknown) (no (unknown) (unknown) nickel Adverse (units (unknown) date) Reaction (Mild, unknown) Verified 03/08/22 09:51) (unknown) (no (unknown) (unknown) occurred due to (units (unknown) date) the inherent unknown) limitations of voice recognition software. Please (unknown) (no (unknown) (unknown) ondansetron 4 mg (units (unknown) date) disintegrating unknown) tablet 4 mg PO QID PRN nausea and vomiting #14 (unknown) (no (unknown) (unknown) read the note (units ( unknown) date) carefully and unknown) recognize, using context, where these substitutions (unknown) (no (unknown) (unknown) software. Although (units (unknown) date) every effort is unknown) made to edit content, milling machine operator gear errors (unknown) (no (unknown) (unknown) tabs 04/05/18 [Rx (units (unknown) date) Confirmed 03/08/22] unknown) (unknown) (no (unknown) (unknown) the same location (units (unknown) date) about 1 year ago. unknown) Went away without treatment. Tender lumps (unknown) (no (unknown) (unknown) to pulmonary (units (u nknown) date) medicine already. unknown) Result panel [id number] (unknown) (no (unknown) (unknown) (no value) (units (unk nown) date) unknown) (unknown) (no (unknown) (unknown) (1) Pulmonary (units ( unknown) date) nodule: unknown) (unknown) (no (unknown) (unknown) (2) Breast (units (unk nown) date) tenderness in unknown) female: (unknown) (no (unknown) (unknown) *JAVIER* 36 Y F, (units (unknown) date) patient here today unknown) r/t ED f/u r/t bilat breast lumps. (unknown) (no (unknown) (unknown) 03/05/22 [Rx (units (u nknown) date) Confirmed 03/08/22] unknown) (unknown) (no (unknown) (unknown) 03/08/22 1037 (units ( unknown) date) unknown) (unknown) (no (unknown) (unknown) 03/08/22 (units (unkno wn) date) unknown) (unknown) (no (unknown) (unknown) 03/08/22] (units (unkn own) date) unknown) (unknown) (no (unknown) (unknown) 09:51) (units (unkno wn) date) unknown) (unknown) (no (unknown) (unknown) 09:54 (units (unkno wn) date) unknown) (unknown) (no (unknown) (unknown) Affect: normal (units (unknown) date) affect unknown) (unknown) (no (unknown) (unknown) Age/Sex: 36 / F (units (unknown) date) Date of Service: unknown) (unknown) (no (unknown) (unknown) Allergies (units (unkn own) date) unknown) (unknown) (no (unknown) (unknown) [place], [place] (units ( unknown) date) [id number] unknown) (unknown) (no (unknown) (unknown) Assessment + Plan (units (unknown) date) unknown) (unknown) (no (unknown) (unknown) Assessment and (units (unknown) date) Plan: unknown) (unknown) (no (unknown) (unknown) Asthma (units (unkno wn) date) unknown) (unknown) (no (unknown) (unknown) Attending Dr: (units ( unknown) date) Kolton SCOTT unknown) (unknown) (no (unknown) (unknown) Attitude: (units (unkn own) date) cooperative unknown) (unknown) (no (unknown) (unknown) Auscultation: (units ( unknown) date) clear to unknown) auscultation bilaterally (unknown) (no (unknown) (unknown) BMI 18.4 (units (unkno wn) date) unknown) (unknown) (no (unknown) (unknown) BP 120/62 (units (unkn own) date) unknown) (unknown) (no (unknown) (unknown) Blood Pressure (units (unknown) date) Location Lt unknown) brachial (unknown) (no (unknown) (unknown) Breast inspection: (units (unknown) date) normal inspection unknown) of the breasts and normal inspection of the (unknown) (no (unknown) (unknown) Breast palpation: (units (unknown) date) normal palpation of unknown) the axillae and abnormal palpation of the (unknown) (no (unknown) (unknown) Breast tenderness (units (unknown) date) bilaterally with unknown) Firm, tender lump right breast at the 11:00 (unknown) (no (unknown) (unknown) CT chest w con 3 (units (unknown) date) Months R91.1 - unknown) Solitary pulmonary nodule (unknown) (no (unknown) (unknown) Cardio (units (unkno wn) date) unknown) (unknown) (no (unknown) (unknown) Chest (units (unkno wn) date) unknown) (unknown) (no (unknown) (unknown) Chief Complaint (units (unknown) date) unknown) (unknown) (no (unknown) (unknown) Chief Complaint: (units (unknown) date) ED f/u breast lumps unknown) (unknown) (no (unknown) (unknown) Cognition: normal (units (unknown) date) cognition unknown) (unknown) (no (unknown) (unknown) Const (units (unkno wn) date) unknown) (unknown) (no (unknown) (unknown) : 1985 (units (unknown) date) Acct:[id number] unknown) (unknown) (no (unknown) (unknown) Details: (units (unkno wn) date) unknown) (unknown) (no (unknown) (unknown) Documented By: (units (unknown) date) Kolton Patino unknown) 03/08/22 0948 (unknown) (no (unknown) (unknown) Effort + (units (unkno wn) date) Inspection: normal unknown) respiratory effort, able to speak in complete (unknown) (no (unknown) (unknown) Exam (units (unkno wn) date) unknown) (unknown) (no (unknown) (unknown) Family Practice (units (unknown) date) Office Visit unknown) (unknown) (no (unknown) (unknown) [facility] (units ([facility] date[facility] unknown) (unknown) (no (unknown) (unknown) Firm, tender lump (units (unknown) date) right breast at the unknown) 11:00 location. firm, tender lump left (unknown) (no (unknown) (unknown) [place] (units (unkno wn) date) unknown) (unknown) (no (unknown) (unknown) Gastrointestinal (units (unknown) date) Upset unknown) (unknown) (no (unknown) (unknown) General: (units (unkno wn) date) cooperative, unknown) comfortable and no acute distress (unknown) (no (unknown) (unknown) General: patient (units (unknown) date) alert and gait unknown) normal (unknown) (no (unknown) (unknown) H/O exploratory (units (unknown) date) laparotomy unknown) (unknown) (no (unknown) (unknown) H/O left knee (units ( unknown) date) surgery unknown) (unknown) (no (unknown) (unknown) HPI (units (unkno wn) date) unknown) (unknown) (no (unknown) (unknown) Health Management (units (unknown) date) reviewed with unknown) patient: No (unknown) (no (unknown) (unknown) Health Management (units (unknown) date) unknown) (unknown) (no (unknown) (unknown) Heart Sounds: S1 (units (unknown) date) normal and S2 unknown) normal (unknown) (no (unknown) (unknown) Height 5 ft 3 in (units (unknown) date) unknown) (unknown) (no (unknown) (unknown) Her PCP is Javier, (units (unknown) date) she has an unknown) appointment to establish care 03/13/2022 (unknown) (no (unknown) (unknown) History of open (units (unknown) date) heart surgery unknown) (unknown) (no (unknown) (unknown) History of surgery (units (unknown) date) unknown) (unknown) (no (unknown) (unknown) Intake Note: (units (u nknown) date) unknown) (unknown) (no (unknown) (unknown) Intake (units (unkno wn) date) unknown) (unknown) (no (unknown) (unknown) Irritation/redness (units (unknown) date) unknown) (unknown) (no (unknown) (unknown) Is last menstrual (units (unknown) date) period known: No unknown) (unknown) (no (unknown) (unknown) Kidney infection (units (unknown) date) unknown) (unknown) (no (unknown) (unknown) Last Menstural (units (unknown) date) Cycle + Details unknown) (unknown) (no (unknown) (unknown) Loc: [facility] (units (unkno wn) date) unknown) (unknown) (no (unknown) (unknown) Lung nodules. ED (units (unknown) date) chest CT unknown) incidentally revealed multiple pulmonary nodules with (unknown) (no (unknown) (unknown) [id number] (units (unk nown) date) unknown) (unknown) (no (unknown) (unknown) Mammogram and (units ( unknown) date) breast US was unknown) ordered by her PCP and she was encouraged to call (unknown) (no (unknown) (unknown) Medical History (units (unknown) date) (Updated 03/05/22 @ unknown) 13:36 by Danita Vila DO) (unknown) (no (unknown) (unknown) Medications (units (un known) date) unknown) (unknown) (no (unknown) (unknown) Medications: (units (u nknown) date) unknown) (unknown) (no (unknown) (unknown) Multiple Pulmonary (units (unknown) date) nodules unknown) incidentally noted on CT scan from ED. (unknown) (no (unknown) (unknown) Neuro (units (unkno wn) date) unknown) (unknown) (no (unknown) (unknown) New (units (unkno wn) date) unknown) (unknown) (no (unknown) (unknown) Orders (units (unkno wn) date) unknown) (unknown) (no (unknown) (unknown) Orders: (units (unkno wn) date) unknown) (unknown) (no (unknown) (unknown) Other Menstrual (units (unknown) date) Period: Other unknown) (unknown) (no (unknown) (unknown) Other: (units (unkno wn) date) unknown) (unknown) (no (unknown) (unknown) Oxygen Delivery (units (unknown) date) Method room air unknown) (unknown) (no (unknown) (unknown) PFSH (units (unkno wn) date) unknown) (unknown) (no (unknown) (unknown) Patient with (units (u nknown) date) history of asthma unknown) comes in today for ED follow up tender breast (unknown) (no (unknown) (unknown) Patient: (units (unkno wn) date) Carmina Castillo unknown) MR#: (unknown) (no (unknown) (unknown) Penicillins (units (un known) date) Allergy unknown) (Intermediate, Verified 03/08/22 09:51) (unknown) (no (unknown) (unknown) Pertussis Vaccines (units (unknown) date) [PERTUSSIS unknown) VACCINES] Allergy (Unknown, Verified 03/08/22 (unknown) (no (unknown) (unknown) Plan (units (unkno wn) date) unknown) (unknown) (no (unknown) (unknown) Please have (units (un known) date) testing done as unknown) ordered. Will call with results and further (unknown) (no (unknown) (unknown) Position Sitting (units (unknown) date) unknown) (unknown) (no (unknown) (unknown) Psych (units (unkno wn) date) unknown) (unknown) (no (unknown) (unknown) Pulse 77 (units (unkno wn) date) unknown) (unknown) (no (unknown) (unknown) Pulse Oximetry (%) (units (unknown) date) 98 unknown) (unknown) (no (unknown) (unknown) Pulse Source (units (u nknown) date) Monitor unknown) (unknown) (no (unknown) (unknown) ROS (units (unkno wn) date) unknown) (unknown) (no (unknown) (unknown) Rash (units (unkno wn) date) unknown) (unknown) (no (unknown) (unknown) Rash, throat was (units (unknown) date) tingly unknown) (unknown) (no (unknown) (unknown) Rate: regular rate (units (unknown) date) unknown) (unknown) (no (unknown) (unknown) Reason For Visit (units (unknown) date) unknown) (unknown) (no (unknown) (unknown) Recommendation for (units (unknown) date) repeat scan in 3-6 unknown) months. Ordered. Patient was also (unknown) (no (unknown) (unknown) Reports as per HPI (units (unknown) date) unknown) (unknown) (no (unknown) (unknown) Resp (units (unkno wn) date) unknown) (unknown) (no (unknown) (unknown) Respiration 14 (units (unknown) date) unknown) (unknown) (no (unknown) (unknown) Rhythm: regular (units (unknown) date) rhythm unknown) (unknown) (no (unknown) (unknown) S/P laparoscopic (units (unknown) date) supracervical unknown) hysterectomy (04/04/18) (unknown) (no (unknown) (unknown) Seizure (units (unkno wn) date) unknown) (unknown) (no (unknown) (unknown) Signed By: (units (unk nown) date) <Electronically unknown) signed by Kolton Patino> (unknown) (no (unknown) (unknown) Signed (units (unkno wn) date) unknown) (unknown) (no (unknown) (unknown) Smoking Status: (units (unknown) date) Former smoker unknown) (unknown) (no (unknown) (unknown) Social History (units (unknown) date) unknown) (unknown) (no (unknown) (unknown) Speech: speech (units (unknown) date) normal unknown) (unknown) (no (unknown) (unknown) Status: Acute (units ( unknown) date) unknown) (unknown) (no (unknown) (unknown) Stomach pain, (units ( unknown) date) nausea, headache unknown) (unknown) (no (unknown) (unknown) Surgical History (units (unknown) date) (Reviewed 03/05/22 unknown) @ 11:22 by Danita Vila DO) (unknown) (no (unknown) (unknown) Temp 98.7 F (units (un known) date) unknown) (unknown) (no (unknown) (unknown) Temp Source (units (un known) date) Temporal Artery unknown) Scan (unknown) (no (unknown) (unknown) This note may have (units (unknown) date) been all or unknown) partially generated using voice recognition (unknown) (no (unknown) (unknown) Thought Content: (units (unknown) date) normal unknown) (unknown) (no (unknown) (unknown) Tobacco + (units (unkn own) date) Substance Use unknown) (unknown) (no (unknown) (unknown) Tobacco Status (units (unknown) date) unknown) (unknown) (no (unknown) (unknown) Visit Reasons: ER (units (unknown) date) f/u: Bilateral unknown) breast lumps*est w/Javier 03/13 (unknown) (no (unknown) (unknown) Vitals (units (unkno wn) date) unknown) (unknown) (no (unknown) (unknown) Weight 104 lb 4 oz (units (unknown) date) unknown) (unknown) (no (unknown) (unknown) albuterol sulfate (units (unknown) date) 90 mcg/actuation unknown) (ProAir HFA) 1 puff inhalation Q6H PRN 8.5 (unknown) (no (unknown) (unknown) albuterol sulfate (units (unknown) date) 90 mcg/actuation unknown) aerosol inhaler (ProAir HFA) 1 puff (unknown) (no (unknown) (unknown) amoxicillin (units (un known) date) Allergy unknown) (Intermediate, Verified 03/08/22 09:51) (unknown) (no (unknown) (unknown) and she was (units (un known) date) encouraged to call unknown) diagnostic imaging for appointment. Number (unknown) (no (unknown) (unknown) appointment. (units (u nknown) date) unknown) (unknown) (no (unknown) (unknown) asymmetry. She (units (unknown) date) states she smoked unknown) for about 10 years, quit about 8 years ago. (unknown) (no (unknown) (unknown) at . (units (unknown) date) unknown) (unknown) (no (unknown) (unknown) axillae (units (unkno wn) date) unknown) (unknown) (no (unknown) (unknown) azithromycin (units (u nknown) date) Allergy unknown) (Intermediate, Verified 03/08/22 09:51) (unknown) (no (unknown) (unknown) breast (left (units (u nknown) date) lateral breast ) unknown) (unknown) (no (unknown) (unknown) breast at the 3:00 (units (unknown) date) location. No skin unknown) puckering, dimpling, nipple discharge. (unknown) (no (unknown) (unknown) came back about a (units (unknown) date) week ago. Denies unknown) weight loss (03/05/2022 she weighed 98 (unknown) (no (unknown) (unknown) ciprofloxacin (units ( unknown) date) Allergy unknown) (Intermediate, Verified 03/08/22 09:51) (unknown) (no (unknown) (unknown) denies cough, (units (u nknown) date) congestion, SOB or unknown) difficulty breathing. She would however, like a (unknown) (no (unknown) (unknown) dimpling, nipple (units (unknown) date) discharge. unknown) Mammogram, ultrasound previously ordered by her PCP (unknown) (no (unknown) (unknown) due to the (units (unk nown) date) inherent unknown) limitations of voice recognition software. Please read the (unknown) (no (unknown) (unknown) follow up CT scan (units (unknown) date) recommended in 3-6 unknown) months, ordered. Her PCP ordered a referral (unknown) (no (unknown) (unknown) for appointment. (units (unknown) date) unknown) (unknown) (no (unknown) (unknown) gluten Adverse (units (unknown) date) Reaction (Mild, unknown) Verified 03/08/22 09:51) (unknown) (no (unknown) (unknown) grams 0RF Adequate (units (unknown) date) Ventilation unknown) (unknown) (no (unknown) (unknown) household members: (units (unknown) date) spouse and children unknown) (unknown) (no (unknown) (unknown) hydrocodone 5 (units ( unknown) date) mg-acetaminophen unknown) 325 mg tablet 1 tab PO Q6H PRN pain #10 tabs (unknown) (no (unknown) (unknown) hydromorphone (units ( unknown) date) Allergy (Mild, unknown) Verified 03/08/22 09:51) (unknown) (no (unknown) (unknown) ibuprofen Allergy (units (unknown) date) (Mild, Verified unknown) 03/08/22 09:51) (unknown) (no (unknown) (unknown) in the same (units (unk nown) date) location about 1 unknown) year ago. Went away without treatment. Tender lumps (unknown) (no (unknown) (unknown) inhalation Q6H PRN (units (unknown) date) Adequate unknown) Ventilation #8.5 grams 03/08/22 [Rx Confirmed (unknown) (no (unknown) (unknown) location. Firm, (units (unknown) date) tender lump left unknown) breast at the 3:00 location. No skin puckering, (unknown) (no (unknown) (unknown) lumps bilaterally (units (unknown) date) for one week. Was unknown) evaluated in the ED, and discharged home (unknown) (no (unknown) (unknown) nickel Adverse (units (unknown) date) Reaction (Mild, unknown) Verified 03/08/22 09:51) (unknown) (no (unknown) (unknown) note carefully and (units (unknown) date) recognize, using unknown) context, where these substitutions have (unknown) (no (unknown) (unknown) occurred. If there (units (unknown) date) are any questions, unknown) please contact the Medical Records Dept (unknown) (no (unknown) (unknown) ondansetron 4 mg (units (unknown) date) disintegrating unknown) tablet 4 mg PO QID PRN nausea and vomiting #14 (unknown) (no (unknown) (unknown) pounds, today she (units (unknown) date) weighs 104 pounds), unknown) skin dimpling, nipple discharge, breast (unknown) (no (unknown) (unknown) provided. (units (unkn own) date) unknown) (unknown) (no (unknown) (unknown) recommendations. (units (unknown) date) Please follow-up unknown) with your PCP. (unknown) (no (unknown) (unknown) referred to (units (un known) date) Pulmonary Medicine unknown) by her PCP and was encouraged to call for (unknown) (no (unknown) (unknown) refill of her (units ( unknown) date) Proair. unknown) (unknown) (no (unknown) (unknown) sentences and no (units (unknown) date) use of accessory unknown) muscles (unknown) (no (unknown) (unknown) software. 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 She (unknown) (no (unknown) (unknown) with pain (units (unkn own) date) medication and unknown) recommendation for close follow up. Had the same lumps (unknown) (no (unknown) (unknown) y occur. (units (unkno wn) date) Occasional unknown) wrong-word or 'sound-alike' substitutions may have occurred Result panel 579 (unknown) (no date) (unknown) (unknown) (no value) (units (un known) unknown) (unknown) (no date) (unknown) (unknown) NO GROWTH (units (unk nown) AFTER 72 unknown) HOURS Result panel 580 (unknown) (no date) (unknown) (unknown) (no value) (units (un known) unknown) (unknown) (no date) (unknown) (unknown) NO GROWTH (units (unk nown) AFTER 72 unknown) HOURS Result panel 581 (unknown) (no date) (unknown) (unknown) (no value) (units (un known) unknown) (unknown) (no date) (unknown) (unknown) NO GROWTH (units (unk nown) AFTER 4 DAYS unknown) Result panel 582 (unknown) (no date) (unknown) (unknown) (no value) (units (un known) unknown) (unknown) (no date) (unknown) (unknown) NO GROWTH (units (unk nown) AFTER 4 DAYS unknown) Result panel 583 (unknown) (no date) (unknown) (unknown) (no value) (units (un known) unknown) (unknown) (no date) (unknown) (unknown) NO GROWTH (units (unk nown) AFTER 5 DAYS unknown) Result panel 584 (unknown) (no date) (unknown) (unknown) (no value) (units (un known) unknown) (unknown) (no date) (unknown) (unknown) NO GROWTH (units (unk nown) AFTER 5 DAYS unknown) Result panel 585 (unknown) (no (unknown) (unknown) (no value) (units (unk nown) date) unknown) (unknown) (no (unknown) (unknown) 03/13/22 (units (unkno wn) date) unknown) (unknown) (no (unknown) (unknown) 09:51) (units (unkno wn) date) unknown) (unknown) (no (unknown) (unknown) Accompanied by: (units (unknown) date) Self / Same As unknown) Patient (unknown) (no (unknown) (unknown) Age/Sex: 36 / F (units (unknown) date) Date of Service: unknown) (unknown) (no (unknown) (unknown) Allergies (units (unkn own) date) unknown) (unknown) (no (unknown) (unknown) [place], [place] (units ( unknown) date) [id number] unknown) (unknown) (no (unknown) (unknown) Asthma (units (unkno wn) date) unknown) (unknown) (no (unknown) (unknown) Attending Dr: (units ( unknown) date) Wes SCOTT unknown) (unknown) (no (unknown) (unknown) : 1985 (units (unknown) date) Acct:[id number] unknown) (unknown) (no (unknown) (unknown) Dept at (units (unkno wn) date) . unknown) (unknown) (no (unknown) (unknown) Documented By: (units (unknown) date) Wes Herrera unknown) 03/13/22 1121 (unknown) (no (unknown) (unknown) Draft (units (unkno wn) date) unknown) (unknown) (no (unknown) (unknown) [facility]) (unknown) (no (unknown) (unknown) [place] (units (unkno wn) date) unknown) (unknown) (no (unknown) (unknown) Gastrointestinal (units (unknown) date) Upset unknown) (unknown) (no (unknown) (unknown) H/O exploratory (units (unknown) date) laparotomy unknown) (unknown) (no (unknown) (unknown) H/O left knee (units ( unknown) date) surgery unknown) (unknown) (no (unknown) (unknown) Health Management (units (unknown) date) reviewed with unknown) patient: Yes (unknown) (no (unknown) (unknown) Health Management (units (unknown) date) unknown) (unknown) (no (unknown) (unknown) History of open (units (unknown) date) heart surgery unknown) (unknown) (no (unknown) (unknown) History of surgery (units (unknown) date) unknown) (unknown) (no (unknown) (unknown) Intake Note: (units (u nknown) date) unknown) (unknown) (no (unknown) (unknown) Intake performed (units (unknown) date) by: Luke Leon unknown) (unknown) (no (unknown) (unknown) Intake (units (unkno wn) date) unknown) (unknown) (no (unknown) (unknown) Intake- Clincial (units (unknown) date) Staff unknown) (unknown) (no (unknown) (unknown) Irritation/redness (units (unknown) date) unknown) (unknown) (no (unknown) (unknown) Kidney infection (units (unknown) date) unknown) (unknown) (no (unknown) (unknown) Last Menstural (units (unknown) date) Cycle + Details unknown) (unknown) (no (unknown) (unknown) Loc: [facility] (units (unkno wn) date) unknown) (unknown) (no (unknown) (unknown) [id number] (units (unk nown) date) unknown) (unknown) (no (unknown) (unknown) Medical History (units (unknown) date) (Updated 03/08/22 @ unknown) 10:33 by TYLER Fountain) (unknown) (no (unknown) (unknown) Other Menstrual (units (unknown) date) Period: Other unknown) (unknown) (no (unknown) (unknown) PFSH (units (unkno wn) date) unknown) (unknown) (no (unknown) (unknown) Patient: (units (unkno wn) date) Carmina Castillo unknown) MR#: (unknown) (no (unknown) (unknown) Pediatric Office (units (unknown) date) Visit unknown) (unknown) (no (unknown) (unknown) Penicillins (units (un known) date) Allergy unknown) (Intermediate, Verified 03/08/22 09:51) (unknown) (no (unknown) (unknown) Pertussis Vaccines (units (unknown) date) [PERTUSSIS unknown) VACCINES] Allergy (Unknown, Verified 03/08/22 (unknown) (no (unknown) (unknown) Pt is here to Est (units (unknown) date) Care and cont f/u unknown) from ED visit (unknown) (no (unknown) (unknown) Rash (units (unkno wn) date) unknown) (unknown) (no (unknown) (unknown) Rash, throat was (units (unknown) date) tingly unknown) (unknown) (no (unknown) (unknown) Reason For Visit (units (unknown) date) unknown) (unknown) (no (unknown) (unknown) S/P laparoscopic (units (unknown) date) supracervical unknown) hysterectomy (04/04/18) (unknown) (no (unknown) (unknown) Seizure (units (unkno wn) date) unknown) (unknown) (no (unknown) (unknown) Signed By: (units (unk nown) date) unknown) (unknown) (no (unknown) (unknown) Smoking Status: (units (unknown) date) Former smoker unknown) (unknown) (no (unknown) (unknown) Social History (units (unknown) date) unknown) (unknown) (no (unknown) (unknown) Stomach pain, (units ( unknown) date) nausea, headache unknown) (unknown) (no (unknown) (unknown) Surgical History (units (unknown) date) (Reviewed 03/05/22 unknown) @ 11:22 by Danita Vila DO) (unknown) (no (unknown) (unknown) This note may have (units (unknown) date) been all or unknown) partially generated using voice recognition (unknown) (no (unknown) (unknown) Tobacco + (units (unkn own) date) Substance Use unknown) (unknown) (no (unknown) (unknown) Tobacco Status (units (unknown) date) unknown) (unknown) (no (unknown) (unknown) Visit Reasons: Est (units (unknown) date) Care, recent ER unknown) visit 01 (unknown) (no (unknown) (unknown) amoxicillin (units (un known) date) Allergy unknown) (Intermediate, Verified 03/08/22 09:51) (unknown) (no (unknown) (unknown) azithromycin (units (u nknown) date) Allergy unknown) (Intermediate, Verified 03/08/22 09:51) (unknown) (no (unknown) (unknown) ciprofloxacin (units ( unknown) date) Allergy unknown) (Intermediate, Verified 03/08/22 09:51) (unknown) (no (unknown) (unknown) gluten Adverse (units (unknown) date) Reaction (Mild, unknown) Verified 03/08/22 09:51) (unknown) (no (unknown) (unknown) have occurred. If (units (unknown) date) there are any unknown) questions, please contact the Medical Records (unknown) (no (unknown) (unknown) household members: (units (unknown) date) spouse and children unknown) (unknown) (no (unknown) (unknown) hydromorphone (units ( unknown) date) Allergy (Mild, unknown) Verified 03/08/22 09:51) (unknown) (no (unknown) (unknown) ibuprofen Allergy (units (unknown) date) (Mild, Verified unknown) 03/08/22 09:51) (unknown) (no (unknown) (unknown) may occur. (units (unk nown) date) Occasional unknown) wrong-word or 'sound-alike' substitutions may have (unknown) (no (unknown) (unknown) nickel Adverse (units (unknown) date) Reaction (Mild, unknown) Verified 03/08/22 09:51) (unknown) (no (unknown) (unknown) occurred due to (units (unknown) date) the inherent unknown) limitations of voice recognition software. Please (unknown) (no (unknown) (unknown) read the note (units ( unknown) date) carefully and unknown) recognize, using context, where these substitutions (unknown) (no (unknown) (unknown) software. Although (units (unknown) date) every effort is unknown) made to edit content, milling machine operator gear errors Result panel 586 (unknown) (no (unknown) (unknown) (no value) (units (unk nown) date) unknown) (unknown) (no (unknown) (unknown) 03/05/22 [Rx (units (u nknown) date) Confirmed 03/13/22] unknown) (unknown) (no (unknown) (unknown) 03/13/22 (units (unkno wn) date) unknown) (unknown) (no (unknown) (unknown) 03/13/22] (units (unkn own) date) unknown) (unknown) (no (unknown) (unknown) 09:51) (units (unkno wn) date) unknown) (unknown) (no (unknown) (unknown) 11:27 (units (unkno wn) date) unknown) (unknown) (no (unknown) (unknown) Accompanied by: (units (unknown) date) Self / Same As unknown) Patient (unknown) (no (unknown) (unknown) Age/Sex: 36 / F (units (unknown) date) Date of Service: unknown) (unknown) (no (unknown) (unknown) Allergies (units (unkn own) date) unknown) (unknown) (no (unknown) (unknown) [place], [place] (units ( unknown) date) [id number] unknown) (unknown) (no (unknown) (unknown) Asthma (units (unkno wn) date) unknown) (unknown) (no (unknown) (unknown) Attending Dr: (units ( unknown) date) Wes SCOTT unknown) (unknown) (no (unknown) (unknown) BMI 18.3 (units (unkno wn) date) unknown) (unknown) (no (unknown) (unknown) BP 118/70 (units (unkn own) date) unknown) (unknown) (no (unknown) (unknown) Blood Pressure (units (unknown) date) Location Lt unknown) brachial (unknown) (no (unknown) (unknown) : 1985 (units (unknown) date) Acct:[id number] unknown) (unknown) (no (unknown) (unknown) Dept at (units (unkno wn) date) . unknown) (unknown) (no (unknown) (unknown) Documented By: (units (unknown) date) Wes Herrera unknown) 03/13/22 1121 (unknown) (no (unknown) (unknown) Draft (units (unkno wn) date) unknown) (unknown) (no (unknown) (unknown) [facility]) (unknown) (no (unknown) (unknown) [place] (units (unkno wn) date) unknown) (unknown) (no (unknown) (unknown) Gastrointestinal (units (unknown) date) Upset unknown) (unknown) (no (unknown) (unknown) H/O exploratory (units (unknown) date) laparotomy unknown) (unknown) (no (unknown) (unknown) H/O left knee (units ( unknown) date) surgery unknown) (unknown) (no (unknown) (unknown) Health Management (units (unknown) date) reviewed with unknown) patient: Yes (unknown) (no (unknown) (unknown) Health Management (units (unknown) date) unknown) (unknown) (no (unknown) (unknown) Height 5 ft 3 in (units (unknown) date) unknown) (unknown) (no (unknown) (unknown) History of open (units (unknown) date) heart surgery unknown) (unknown) (no (unknown) (unknown) History of surgery (units (unknown) date) unknown) (unknown) (no (unknown) (unknown) Intake Note: (units (u nknown) date) unknown) (unknown) (no (unknown) (unknown) Intake performed (units (unknown) date) by: Luke Leon unknown) (unknown) (no (unknown) (unknown) Intake (units (unkno wn) date) unknown) (unknown) (no (unknown) (unknown) Intake- Clincial (units (unknown) date) Staff unknown) (unknown) (no (unknown) (unknown) Irritation/redness (units (unknown) date) unknown) (unknown) (no (unknown) (unknown) Kidney infection (units (unknown) date) unknown) (unknown) (no (unknown) (unknown) Last Menstural (units (unknown) date) Cycle + Details unknown) (unknown) (no (unknown) (unknown) Loc: [facility] (units (unkno wn) date) unknown) (unknown) (no (unknown) (unknown) [id number] (units (unk nown) date) unknown) (unknown) (no (unknown) (unknown) Medical History (units (unknown) date) (Updated 03/08/22 @ unknown) 10:33 by TYLER Fountain) (unknown) (no (unknown) (unknown) Medications (units (un known) date) unknown) (unknown) (no (unknown) (unknown) Other Menstrual (units (unknown) date) Period: Other unknown) (unknown) (no (unknown) (unknown) Oxygen Delivery (units (unknown) date) Method room air unknown) (unknown) (no (unknown) (unknown) PFSH (units (unkno wn) date) unknown) (unknown) (no (unknown) (unknown) Patient: (units (unkno wn) date) Carmina Castillo unknown) MR#: (unknown) (no (unknown) (unknown) Pediatric Office (units (unknown) date) Visit unknown) (unknown) (no (unknown) (unknown) Penicillins (units (un known) date) Allergy unknown) (Intermediate, Verified 03/08/22 09:51) (unknown) (no (unknown) (unknown) Pertussis Vaccines (units (unknown) date) [PERTUSSIS unknown) VACCINES] Allergy (Unknown, Verified 03/08/22 (unknown) (no (unknown) (unknown) Position Sitting (units (unknown) date) unknown) (unknown) (no (unknown) (unknown) Pt is here to Est (units (unknown) date) Care and cont f/u unknown) from ED visit (unknown) (no (unknown) (unknown) Pulse 68 (units (unkno wn) date) unknown) (unknown) (no (unknown) (unknown) Pulse Oximetry (%) (units (unknown) date) 98 unknown) (unknown) (no (unknown) (unknown) Pulse Source (units (u nknown) date) Monitor unknown) (unknown) (no (unknown) (unknown) Rash (units (unkno wn) date) unknown) (unknown) (no (unknown) (unknown) Rash, throat was (units (unknown) date) tingly unknown) (unknown) (no (unknown) (unknown) Reason For Visit (units (unknown) date) unknown) (unknown) (no (unknown) (unknown) S/P laparoscopic (units (unknown) date) supracervical unknown) hysterectomy (04/04/18) (unknown) (no (unknown) (unknown) Seizure (units (unkno wn) date) unknown) (unknown) (no (unknown) (unknown) Signed By: (units (unk nown) date) unknown) (unknown) (no (unknown) (unknown) Smoking Status: (units (unknown) date) Former smoker unknown) (unknown) (no (unknown) (unknown) Social History (units (unknown) date) unknown) (unknown) (no (unknown) (unknown) Stomach pain, (units ( unknown) date) nausea, headache unknown) (unknown) (no (unknown) (unknown) Surgical History (units (unknown) date) (Reviewed 03/05/22 unknown) @ 11:22 by Danita Vila DO) (unknown) (no (unknown) (unknown) Temp 98.1 F (units (un known) date) unknown) (unknown) (no (unknown) (unknown) Temp Source (units (un known) date) Temporal Artery unknown) Scan (unknown) (no (unknown) (unknown) This note may have (units (unknown) date) been all or unknown) partially generated using voice recognition (unknown) (no (unknown) (unknown) Tobacco + (units (unkn own) date) Substance Use unknown) (unknown) (no (unknown) (unknown) Tobacco Status (units (unknown) date) unknown) (unknown) (no (unknown) (unknown) Visit Reasons: Est (units (unknown) date) Care, recent ER unknown) visit 01 (unknown) (no (unknown) (unknown) Vitals (units (unkno wn) date) unknown) (unknown) (no (unknown) (unknown) Weight 103 lb 6 oz (units (unknown) date) unknown) (unknown) (no (unknown) (unknown) albuterol sulfate (units (unknown) date) 90 mcg/actuation unknown) aerosol inhaler (ProAir HFA) 1 puff (unknown) (no (unknown) (unknown) amoxicillin (units (un known) date) Allergy unknown) (Intermediate, Verified 03/08/22 09:51) (unknown) (no (unknown) (unknown) azithromycin (units (u nknown) date) Allergy unknown) (Intermediate, Verified 03/08/22 09:51) (unknown) (no (unknown) (unknown) ciprofloxacin (units ( unknown) date) Allergy unknown) (Intermediate, Verified 03/08/22 09:51) (unknown) (no (unknown) (unknown) gluten Adverse (units (unknown) date) Reaction (Mild, unknown) Verified 03/08/22 09:51) (unknown) (no (unknown) (unknown) have occurred. If (units (unknown) date) there are any unknown) questions, please contact the Medical Records (unknown) (no (unknown) (unknown) household members: (units (unknown) date) spouse and children unknown) (unknown) (no (unknown) (unknown) hydrocodone 5 (units ( unknown) date) mg-acetaminophen unknown) 325 mg tablet 1 tab PO Q6H PRN pain #10 tabs (unknown) (no (unknown) (unknown) hydromorphone (units ( unknown) date) Allergy (Mild, unknown) Verified 03/08/22 09:51) (unknown) (no (unknown) (unknown) ibuprofen Allergy (units (unknown) date) (Mild, Verified unknown) 03/08/22 09:51) (unknown) (no (unknown) (unknown) inhalation Q6H PRN (units (unknown) date) Adequate unknown) Ventilation #8.5 grams 03/08/22 [Rx Confirmed (unknown) (no (unknown) (unknown) may occur. (units (unk nown) date) Occasional unknown) wrong-word or 'sound-alike' substitutions may have (unknown) (no (unknown) (unknown) nickel Adverse (units (unknown) date) Reaction (Mild, unknown) Verified 03/08/22 09:51) (unknown) (no (unknown) (unknown) occurred due to (units (unknown) date) the inherent unknown) limitations of voice recognition software. Please (unknown) (no (unknown) (unknown) ondansetron 4 mg (units (unknown) date) disintegrating unknown) tablet 4 mg PO QID PRN nausea and vomiting #14 (unknown) (no (unknown) (unknown) read the note (units ( unknown) date) carefully and unknown) recognize, using context, where these substitutions (unknown) (no (unknown) (unknown) software. Although (units (unknown) date) every effort is unknown) made to edit content, milling machine operator gear errors (unknown) (no (unknown) (unknown) tabs 04/05/18 [Rx (units (unknown) date) Confirmed 03/13/22] unknown) Result panel [id number] (unknown) (no (unknown) (unknown) (no value) (units (unk nown) date) unknown) (unknown) (no (unknown) (unknown) (2) Breast (units (unk nown) date) tenderness in unknown) female: (unknown) (no (unknown) (unknown) 03/05/22 [Rx (units (u nknown) date) Confirmed 03/13/22] unknown) (unknown) (no (unknown) (unknown) 03/13/22 (units (unkno wn) date) unknown) (unknown) (no (unknown) (unknown) 03/13/22] (units (unkn own) date) unknown) (unknown) (no (unknown) (unknown) 09:51) (units (unkno wn) date) unknown) (unknown) (no (unknown) (unknown) 11:27 (units (unkno wn) date) unknown) (unknown) (no (unknown) (unknown) ?Assessment (units (unknown) date) and Plan: unknown) (unknown) (no (unknown) (unknown) Accompanied by: (units (unknown) date) Self / Same As unknown) Patient (unknown) (no (unknown) (unknown) Age/Sex: 36 / F (units (unknown) date) Date of Service: unknown) (unknown) (no (unknown) (unknown) Allergies (units (unkn own) date) unknown) (unknown) (no (unknown) (unknown) [place], [place] (units ( unknown) date) [id number] unknown) (unknown) (no (unknown) (unknown) Asthma (units (unkno wn) date) unknown) (unknown) (no (unknown) (unknown) Attending Dr: (units ( unknown) date) Wes SCOTT unknown) (unknown) (no (unknown) (unknown) BMI 18.3 (units (unkno wn) date) unknown) (unknown) (no (unknown) (unknown) BP 118/70 (units (unkn own) date) unknown) (unknown) (no (unknown) (unknown) Blood Pressure (units (unknown) date) Location Lt unknown) brachial (unknown) (no (unknown) (unknown) Breast tenderness (units (unknown) date) bilaterally with unknown) Firm, tender lump right breast at the 11:00 (unknown) (no (unknown) (unknown) Chief Complaint (units (unknown) date) unknown) (unknown) (no (unknown) (unknown) Chief Complaint: (units (unknown) date) Establish care unknown) (unknown) (no (unknown) (unknown) : 1985 (units (unknown) date) Acct:[id number] unknown) (unknown) (no (unknown) (unknown) Dept at (units (unkno wn) date) . unknown) (unknown) (no (unknown) (unknown) Details: (units (unkno wn) date) unknown) (unknown) (no (unknown) (unknown) Documented By: (units (unknown) date) Wes Herrera unknown) 03/13/22 1121 (unknown) (no (unknown) (unknown) Draft (units (unkno wn) date) unknown) (unknown) (no (unknown) (unknown) [facility]) (unknown) (no (unknown) (unknown) [place] (units (unkno wn) date) unknown) (unknown) (no (unknown) (unknown) Gastrointestinal (units (unknown) date) Upset unknown) (unknown) (no (unknown) (unknown) H/O exploratory (units (unknown) date) laparotomy unknown) (unknown) (no (unknown) (unknown) H/O left knee (units ( unknown) date) surgery unknown) (unknown) (no (unknown) (unknown) HPI (units (unkno wn) date) unknown) (unknown) (no (unknown) (unknown) Health Management (units (unknown) date) reviewed with unknown) patient: Yes (unknown) (no (unknown) (unknown) Health Management (units (unknown) date) unknown) (unknown) (no (unknown) (unknown) Height 160.02 cm (units (unknown) date) unknown) (unknown) (no (unknown) (unknown) Her PCP is Javier, (units (unknown) date) she has an unknown) appointment to establish care 03/13/2022 (unknown) (no (unknown) (unknown) History of open (units (unknown) date) heart surgery unknown) (unknown) (no (unknown) (unknown) History of surgery (units (unknown) date) unknown) (unknown) (no (unknown) (unknown) Intake Note: (units (u nknown) date) unknown) (unknown) (no (unknown) (unknown) Intake performed (units (unknown) date) by: Luke Leon unknown) (unknown) (no (unknown) (unknown) Intake (units (unkno wn) date) unknown) (unknown) (no (unknown) (unknown) Intake- Clincial (units (unknown) date) Staff unknown) (unknown) (no (unknown) (unknown) Irritation/redness (units (unknown) date) unknown) (unknown) (no (unknown) (unknown) Kidney infection (units (unknown) date) unknown) (unknown) (no (unknown) (unknown) Last Menstural (units (unknown) date) Cycle + Details unknown) (unknown) (no (unknown) (unknown) Loc: [facility] (units (unkno wn) date) unknown) (unknown) (no (unknown) (unknown) Lung nodules. ED (units (unknown) date) chest CT unknown) incidentally revealed multiple pulmonary nodules with (unknown) (no (unknown) (unknown) [id number] (units (unk nown) date) unknown) (unknown) (no (unknown) (unknown) Mammogram and (units ( unknown) date) breast US was unknown) ordered by her PCP and she was encouraged to call (unknown) (no (unknown) (unknown) Medical History (units (unknown) date) (Updated 03/08/22 @ unknown) 10:33 by TYLER Fountain) (unknown) (no (unknown) (unknown) Medications (units (un known) date) unknown) (unknown) (no (unknown) (unknown) Multiple Pulmonary (units (unknown) date) nodules unknown) incidentally noted on CT scan from ED.? (unknown) (no (unknown) (unknown) Other Menstrual (units (unknown) date) Period: Other unknown) (unknown) (no (unknown) (unknown) Oxygen Delivery (units (unknown) date) Method room air unknown) (unknown) (no (unknown) (unknown) PFSH (units (unkno wn) date) unknown) (unknown) (no (unknown) (unknown) Patient with (units (u nknown) date) history of asthma unknown) comes in today for ED follow up tender breast (unknown) (no (unknown) (unknown) Patient: (units (unkno wn) date) Carmina Castillo unknown) MR#: (unknown) (no (unknown) (unknown) Pediatric Office (units (unknown) date) Visit unknown) (unknown) (no (unknown) (unknown) Penicillins (units (un known) date) Allergy unknown) (Intermediate, Verified 03/08/22 09:51) (unknown) (no (unknown) (unknown) Pertussis Vaccines (units (unknown) date) [PERTUSSIS unknown) VACCINES] Allergy (Unknown, Verified 03/08/22 (unknown) (no (unknown) (unknown) Position Sitting (units (unknown) date) unknown) (unknown) (no (unknown) (unknown) Pt is here to Est (units (unknown) date) Care and cont f/u unknown) from ED visit (unknown) (no (unknown) (unknown) Pulse 68 (units (unkno wn) date) unknown) (unknown) (no (unknown) (unknown) Pulse Oximetry (%) (units (unknown) date) 98 unknown) (unknown) (no (unknown) (unknown) Pulse Source (units (u nknown) date) Monitor unknown) (unknown) (no (unknown) (unknown) Rash (units (unkno wn) date) unknown) (unknown) (no (unknown) (unknown) Rash, throat was (units (unknown) date) tingly unknown) (unknown) (no (unknown) (unknown) Reason For Visit (units (unknown) date) unknown) (unknown) (no (unknown) (unknown) Recommendation for (units (unknown) date) repeat scan in 3-6 unknown) months.? Ordered.? Patient was also (unknown) (no (unknown) (unknown) S/P laparoscopic (units (unknown) date) supracervical unknown) hysterectomy (04/04/18) (unknown) (no (unknown) (unknown) Seizure (units (unkno wn) date) unknown) (unknown) (no (unknown) (unknown) Signed By: (units (unk nown) date) unknown) (unknown) (no (unknown) (unknown) Smoking Status: (units (unknown) date) Former smoker unknown) (unknown) (no (unknown) (unknown) Social History (units (unknown) date) unknown) (unknown) (no (unknown) (unknown) Stomach pain, (units ( unknown) date) nausea, headache unknown) (unknown) (no (unknown) (unknown) Surgical History (units (unknown) date) (Reviewed 03/05/22 unknown) @ 11:22 by Danita Vila DO) (unknown) (no (unknown) (unknown) Temp 98.1 F (units (un known) date) unknown) (unknown) (no (unknown) (unknown) Temp Source (units (un known) date) Temporal Artery unknown) Scan (unknown) (no (unknown) (unknown) This note may have (units (unknown) date) been all or unknown) partially generated using voice recognition (unknown) (no (unknown) (unknown) Tobacco + (units (unkn own) date) Substance Use unknown) (unknown) (no (unknown) (unknown) Tobacco Status (units (unknown) date) unknown) (unknown) (no (unknown) (unknown) Visit Reasons: Est (units (unknown) date) Care, recent ER unknown) visit 01 (unknown) (no (unknown) (unknown) Vitals (units (unkno wn) date) unknown) (unknown) (no (unknown) (unknown) Weight 46.89 kg (units (unknown) date) unknown) (unknown) (no (unknown) (unknown) albuterol sulfate (units (unknown) date) 90 mcg/actuation unknown) aerosol inhaler (ProAir HFA) 1 puff (unknown) (no (unknown) (unknown) amoxicillin (units (un known) date) Allergy unknown) (Intermediate, Verified 03/08/22 09:51) (unknown) (no (unknown) (unknown) and she was (units (un known) date) encouraged to call unknown) diagnostic imaging for appointment. Number (unknown) (no (unknown) (unknown) appointment. (units (u nknown) date) unknown) (unknown) (no (unknown) (unknown) asymmetry. She (units (unknown) date) states she smoked unknown) for about 10 years, quit about 8 years ago. (unknown) (no (unknown) (unknown) azithromycin (units (u nknown) date) Allergy unknown) (Intermediate, Verified 03/08/22 09:51) (unknown) (no (unknown) (unknown) breast pain. (units (u nknown) date) unknown) (unknown) (no (unknown) (unknown) came back about a (units (unknown) date) week ago. Denies unknown) weight loss (03/05/2022 she weighed 98 (unknown) (no (unknown) (unknown) ciprofloxacin (units ( unknown) date) Allergy unknown) (Intermediate, Verified 03/08/22 09:51) (unknown) (no (unknown) (unknown) denies cough, (units (u nknown) date) congestion, SOB or unknown) difficulty breathing. She would however, like a (unknown) (no (unknown) (unknown) dimpling, nipple (units (unknown) date) discharge.? unknown) Mammogram, ultrasound previously ordered by her PCP (unknown) (no (unknown) (unknown) follow up CT scan (units (unknown) date) recommended in 3-6 unknown) months, ordered. Her PCP ordered a referral (unknown) (no (unknown) (unknown) for appointment. (units (unknown) date) unknown) (unknown) (no (unknown) (unknown) gluten Adverse (units (unknown) date) Reaction (Mild, unknown) Verified 03/08/22 09:51) (unknown) (no (unknown) (unknown) have occurred. If (units (unknown) date) there are any unknown) questions, please contact the Medical Records (unknown) (no (unknown) (unknown) household members: (units (unknown) date) spouse and children unknown) (unknown) (no (unknown) (unknown) hydrocodone 5 (units ( unknown) date) mg-acetaminophen unknown) 325 mg tablet 1 tab PO Q6H PRN pain #10 tabs (unknown) (no (unknown) (unknown) hydromorphone (units ( unknown) date) Allergy (Mild, unknown) Verified 03/08/22 09:51) (unknown) (no (unknown) (unknown) ibuprofen Allergy (units (unknown) date) (Mild, Verified unknown) 03/08/22 09:51) (unknown) (no (unknown) (unknown) in the same (units (unk nown) date) location about 1 unknown) year ago. Went away without treatment. Tender lumps (unknown) (no (unknown) (unknown) inhalation Q6H PRN (units (unknown) date) Adequate unknown) Ventilation #8.5 grams 03/08/22 [Rx Confirmed (unknown) (no (unknown) (unknown) location. Firm, (units (unknown) date) tender lump left unknown) breast at the 3:00 location. No skin puckering, (unknown) (no (unknown) (unknown) lumps bilaterally (units (unknown) date) for one week. Was unknown) evaluated in the ED, and discharged home (unknown) (no (unknown) (unknown) may occur. (units (unk nown) date) Occasional unknown) wrong-word or 'sound-alike' substitutions may have (unknown) (no (unknown) (unknown) nickel Adverse (units (unknown) date) Reaction (Mild, unknown) Verified 03/08/22 09:51) (unknown) (no (unknown) (unknown) occurred due to (units (unknown) date) the inherent unknown) limitations of voice recognition software. Please (unknown) (no (unknown) (unknown) ondansetron 4 mg (units (unknown) date) disintegrating unknown) tablet 4 mg PO QID PRN nausea and vomiting #14 (unknown) (no (unknown) (unknown) pounds, today she (units (unknown) date) weighs 104 pounds), unknown) skin dimpling, nipple discharge, breast (unknown) (no (unknown) (unknown) provided. (units (unkn own) date) unknown) (unknown) (no (unknown) (unknown) read the note (units ( unknown) date) carefully and unknown) recognize, using context, where these substitutions (unknown) (no (unknown) (unknown) referred to (units (un known) date) Pulmonary Medicine unknown) by her PCP and was encouraged to call for (unknown) (no (unknown) (unknown) refill of her (units ( unknown) date) Proair. unknown) (unknown) (no (unknown) (unknown) software. Although (units (unknown) date) every effort is unknown) made to edit content, milling machine operator gear errors (unknown) (no (unknown) (unknown) tabs 04/05/18 [Rx (units (unknown) date) Confirmed 03/13/22] unknown) (unknown) (no (unknown) (unknown) to pulmonary (units (u nknown) date) medicine already unknown) and she will call to schedule appointment. She (unknown) (no (unknown) (unknown) with pain (units (unkn own) date) medication and unknown) recommendation for close follow up. Had the same lumps Result panel [id number] (unknown) (no (unknown) (unknown) (no value) (units (unk nown) date) unknown) (unknown) (no (unknown) (unknown) (2) Breast (units (unk nown) date) tenderness in unknown) female: (unknown) (no (unknown) (unknown) 03/05/22 [Rx (units (u nknown) date) Confirmed 03/13/22] unknown) (unknown) (no (unknown) (unknown) 03/13/22 (units (unkno wn) date) unknown) (unknown) (no (unknown) (unknown) 03/13/22] (units (unkn own) date) unknown) (unknown) (no (unknown) (unknown) 09:51) (units (unkno wn) date) unknown) (unknown) (no (unknown) (unknown) 11:27 (units (unkno wn) date) unknown) (unknown) (no (unknown) (unknown) 6 months later had (units (unknown) date) sternal wires unknown) removed because top 1 had snapped. no ongoing (unknown) (no (unknown) (unknown) ?Assessment (units (unknown) date) and Plan: unknown) (unknown) (no (unknown) (unknown) Accompanied by: (units (unknown) date) Self / Same As unknown) Patient (unknown) (no (unknown) (unknown) Age/Sex: 36 / F (units (unknown) date) Date of Service: unknown) (unknown) (no (unknown) (unknown) Allergies (units (unkn own) date) unknown) (unknown) (no (unknown) (unknown) [place], [place] (units ( unknown) date) [id number] unknown) (unknown) (no (unknown) (unknown) Asthma (units (unkno wn) date) unknown) (unknown) (no (unknown) (unknown) Attending Dr: (units ( unknown) date) Wes SCOTT unknown) (unknown) (no (unknown) (unknown) BMI 18.3 (units (unkno wn) date) unknown) (unknown) (no (unknown) (unknown) BP 118/70 (units (unkn own) date) unknown) (unknown) (no (unknown) (unknown) Blood Pressure (units (unknown) date) Location Lt unknown) brachial (unknown) (no (unknown) (unknown) Breast tenderness (units (unknown) date) bilaterally with unknown) Firm, tender lump right breast at the 11:00 (unknown) (no (unknown) (unknown) Chief Complaint (units (unknown) date) unknown) (unknown) (no (unknown) (unknown) Chief Complaint: (units (unknown) date) Establish care unknown) (unknown) (no (unknown) (unknown) : 1985 (units (unknown) date) Acct:[id number] unknown) (unknown) (no (unknown) (unknown) Dept at (units (unkno wn) date) . unknown) (unknown) (no (unknown) (unknown) Details: (units (unkno wn) date) unknown) (unknown) (no (unknown) (unknown) Documented By: (units (unknown) date) Wes Herrera unknown) 03/13/22 1121 (unknown) (no (unknown) (unknown) Draft (units (unkno wn) date) unknown) (unknown) (no (unknown) (unknown) [facility]) (unknown) (no (unknown) (unknown) [place] (units (unkno wn) date) unknown) (unknown) (no (unknown) (unknown) Gastrointestinal (units (unknown) date) Upset unknown) (unknown) (no (unknown) (unknown) H/O exploratory (units (unknown) date) laparotomy unknown) (unknown) (no (unknown) (unknown) H/O left knee (units ( unknown) date) surgery unknown) (unknown) (no (unknown) (unknown) HPI (units (unkno wn) date) unknown) (unknown) (no (unknown) (unknown) Health Management (units (unknown) date) reviewed with unknown) patient: Yes (unknown) (no (unknown) (unknown) Health Management (units (unknown) date) unknown) (unknown) (no (unknown) (unknown) Height 160.02 cm (units (unknown) date) unknown) (unknown) (no (unknown) (unknown) Her PCP is Javier, (units (unknown) date) she has an unknown) appointment to establish care 03/13/2022 (unknown) (no (unknown) (unknown) History of open (units (unknown) date) heart surgery unknown) (unknown) (no (unknown) (unknown) History of surgery (units (unknown) date) unknown) (unknown) (no (unknown) (unknown) Intake Note: (units (u nknown) date) unknown) (unknown) (no (unknown) (unknown) Intake performed (units (unknown) date) by: Luke Leon unknown) (unknown) (no (unknown) (unknown) Intake (units (unkno wn) date) unknown) (unknown) (no (unknown) (unknown) Intake- Clincial (units (unknown) date) Staff unknown) (unknown) (no (unknown) (unknown) Irritation/redness (units (unknown) date) unknown) (unknown) (no (unknown) (unknown) Kidney infection (units (unknown) date) unknown) (unknown) (no (unknown) (unknown) Last Menstural (units (unknown) date) Cycle + Details unknown) (unknown) (no (unknown) (unknown) Loc: [facility] (units (unkno wn) date) unknown) (unknown) (no (unknown) (unknown) Lung nodules. ED (units (unknown) date) chest CT unknown) incidentally revealed multiple pulmonary nodules with (unknown) (no (unknown) (unknown) [id number] (units (unk nown) date) unknown) (unknown) (no (unknown) (unknown) Mammogram and (units ( unknown) date) breast US was unknown) ordered by her PCP and she was encouraged to call (unknown) (no (unknown) (unknown) Medical History (units (unknown) date) (Updated 03/08/22 @ unknown) 10:33 by TYLER Fountain) (unknown) (no (unknown) (unknown) Medications (units (un known) date) unknown) (unknown) (no (unknown) (unknown) Multiple Pulmonary (units (unknown) date) nodules unknown) incidentally noted on CT scan from ED.? (unknown) (no (unknown) (unknown) Other Menstrual (units (unknown) date) Period: Other unknown) (unknown) (no (unknown) (unknown) Oxygen Delivery (units (unknown) date) Method room air unknown) (unknown) (no (unknown) (unknown) PFSH (units (unkno wn) date) unknown) (unknown) (no (unknown) (unknown) Patient with (units (u nknown) date) history of asthma unknown) comes in today for ED follow up tender breast (unknown) (no (unknown) (unknown) Patient: (units (unkno wn) date) CastilloCarmina Cooper unknown) MR#: (unknown) (no (unknown) (unknown) Pediatric Office (units (unknown) date) Visit unknown) (unknown) (no (unknown) (unknown) Penicillins (units (un known) date) Allergy unknown) (Intermediate, Verified 03/08/22 09:51) (unknown) (no (unknown) (unknown) Pertussis Vaccines (units (unknown) date) [PERTUSSIS unknown) VACCINES] Allergy (Unknown, Verified 03/08/22 (unknown) (no (unknown) (unknown) Position Sitting (units (unknown) date) unknown) (unknown) (no (unknown) (unknown) Pt is here to Est (units (unknown) date) Care and cont f/u unknown) from ED visit (unknown) (no (unknown) (unknown) Pulse 68 (units (unkno wn) date) unknown) (unknown) (no (unknown) (unknown) Pulse Oximetry (%) (units (unknown) date) 98 unknown) (unknown) (no (unknown) (unknown) Pulse Source (units (u nknown) date) Monitor unknown) (unknown) (no (unknown) (unknown) Rash (units (unkno wn) date) unknown) (unknown) (no (unknown) (unknown) Rash, throat was (units (unknown) date) tingly unknown) (unknown) (no (unknown) (unknown) Reason For Visit (units (unknown) date) unknown) (unknown) (no (unknown) (unknown) Recommendation for (units (unknown) date) repeat scan in 3-6 unknown) months.? Ordered.? Patient was also (unknown) (no (unknown) (unknown) S/P laparoscopic (units (unknown) date) supracervical unknown) hysterectomy (04/04/18) (unknown) (no (unknown) (unknown) Seizure (units (unkno wn) date) unknown) (unknown) (no (unknown) (unknown) Signed By: (units (unk nown) date) unknown) (unknown) (no (unknown) (unknown) Smoking Status: (units (unknown) date) Former smoker unknown) (unknown) (no (unknown) (unknown) Social History (units (unknown) date) unknown) (unknown) (no (unknown) (unknown) Stomach pain, (units ( unknown) date) nausea, headache unknown) (unknown) (no (unknown) (unknown) Surgical History (units (unknown) date) (Reviewed 03/05/22 unknown) @ 11:22 by Danita Vila DO) (unknown) (no (unknown) (unknown) Temp 98.1 F (units (un known) date) unknown) (unknown) (no (unknown) (unknown) Temp Source (units (un known) date) Temporal Artery unknown) Scan (unknown) (no (unknown) (unknown) This note may have (units (unknown) date) been all or unknown) partially generated using voice recognition (unknown) (no (unknown) (unknown) Tobacco + (units (unkn own) date) Substance Use unknown) (unknown) (no (unknown) (unknown) Tobacco Status (units (unknown) date) unknown) (unknown) (no (unknown) (unknown) Visit Reasons: Est (units (unknown) date) Care, recent ER unknown) visit 01 (unknown) (no (unknown) (unknown) Vitals (units (unkno wn) date) unknown) (unknown) (no (unknown) (unknown) Weight 46.89 kg (units (unknown) date) unknown) (unknown) (no (unknown) (unknown) albuterol sulfate (units (unknown) date) 90 mcg/actuation unknown) aerosol inhaler (ProAir HFA) 1 puff (unknown) (no (unknown) (unknown) amoxicillin (units (un known) date) Allergy unknown) (Intermediate, Verified 03/08/22 09:51) (unknown) (no (unknown) (unknown) and she was (units (un known) date) encouraged to call unknown) diagnostic imaging for appointment. Number (unknown) (no (unknown) (unknown) appointment. (units (u nknown) date) unknown) (unknown) (no (unknown) (unknown) asymmetry. She (units (unknown) date) states she smoked unknown) for about 10 years, quit about 8 years ago. (unknown) (no (unknown) (unknown) azithromycin (units (u nknown) date) Allergy unknown) (Intermediate, Verified 03/08/22 09:51) (unknown) (no (unknown) (unknown) breast pain. (units (u nknown) date) unknown) (unknown) (no (unknown) (unknown) came back about a (units (unknown) date) week ago. Denies unknown) weight loss (03/05/2022 she weighed 98 (unknown) (no (unknown) (unknown) ciprofloxacin (units ( unknown) date) Allergy unknown) (Intermediate, Verified 03/08/22 09:51) (unknown) (no (unknown) (unknown) denies cough, (units (u nknown) date) congestion, SOB or unknown) difficulty breathing. She would however, like a (unknown) (no (unknown) (unknown) dimpling, nipple (units (unknown) date) discharge.? unknown) Mammogram, ultrasound previously ordered by her PCP (unknown) (no (unknown) (unknown) emergency open (units (unknown) date) heart surgery extra unknown) piece of muscle in right [facility] [place]. (unknown) (no (unknown) (unknown) follow up CT scan (units (unknown) date) recommended in 3-6 unknown) months, ordered. Her PCP ordered a referral (unknown) (no (unknown) (unknown) for appointment. (units (unknown) date) unknown) (unknown) (no (unknown) (unknown) gluten Adverse (units (unknown) date) Reaction (Mild, unknown) Verified 03/08/22 09:51) (unknown) (no (unknown) (unknown) had unnecessary (units (unknown) date) open heart surgery unknown) 2008, echo was done came out fuzzy. alcides. (unknown) (no (unknown) (unknown) have occurred. If (units (unknown) date) there are any unknown) questions, please contact the Medical Records (unknown) (no (unknown) (unknown) household members: (units (unknown) date) spouse and children unknown) (unknown) (no (unknown) (unknown) hydrocodone 5 (units ( unknown) date) mg-acetaminophen unknown) 325 mg tablet 1 tab PO Q6H PRN pain #10 tabs (unknown) (no (unknown) (unknown) hydromorphone (units ( unknown) date) Allergy (Mild, unknown) Verified 03/08/22 09:51) (unknown) (no (unknown) (unknown) ibuprofen Allergy (units (unknown) date) (Mild, Verified unknown) 03/08/22 09:51) (unknown) (no (unknown) (unknown) in the same (units (unk nown) date) location about 1 unknown) year ago. Went away without treatment. Tender lumps (unknown) (no (unknown) (unknown)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 nown) date) Occasional unknown) wrong-word or 'sound-alike' substitutions may have (unknown) (no (unknown) (unknown) mild (units (unkno wn) date) unknown) (unknown) (no (unknown) (unknown) monitoring. (units (un known) date) unknown) (unknown) (no (unknown) (unknown) more than usual: (units (unknown) date) several days unknown) (unknown) (no (unknown) (unknown) nickel Adverse (units (unknown) date) Reaction (Mild, unknown) Verified 03/08/22 09:51) (unknown) (no (unknown) (unknown) not work very (units ( unknown) date) well.? She is not unknown) sure what other inhalers she has tried. (unknown) (no (unknown) (unknown) occurred due to the (unit s (unknown) date) inherent limitations unknown) of voice recognition software. Please (unknown) (no (unknown) (unknown) of chest pain, (units ( unknown) date) cough, sternal pain, unknown) bilateral breast lumps.? At the ED she had a (unknown) (no (unknown) (unknown) ondansetron 4 mg (units (unknown) date) disintegrating unknown) tablet 4 mg PO QID PRN nausea and vomiting #14 (unknown) (no (unknown) (unknown) opposite - being so (unit s (unknown) date) fidgety or restless unknown) that you have been moving around a lot (unknown) (no (unknown) (unknown) order for a (units (un known) date) three-month unknown) follow-up CT chest. ?Bilateral diagnostic mammogram and (unknown) (no (unknown) (unknown) other exam. WILL (units (unknown) date) SCHEDULE BREAST unknown) IMAGING AND PULMONOLOGY CONSULT. still has a (unknown) (no (unknown) (unknown) people?: very (units ( unknown) date) difficult unknown) (unknown) (no (unknown) (unknown) problems? (units (unkn own) date) unknown) (unknown) (no (unknown) (unknown) pulmonary nodule, (units (unknown) date) open heart surgery unknown) 2008. (unknown) (no (unknown) (unknown) pulmonology (units (un known) date) consult. Patient unknown) reminded to schedule these. (unknown) (no (unknown) (unknown) pulmonology to (units (unknown) date) address this. unknown) (unknown) (no (unknown) (unknown) read the note (units ( unknown) date) carefully and unknown) recognize, using context, where these substitutions (unknown) (no (unknown) (unknown) recommend 2 weeks (units (unknown) date) off from work and unknown) she will see me for follow-up visit in 2 (unknown) (no (unknown) (unknown) recurrent (units (unkn own) date) Active/Remission unknown) status: currently active Major depression episode (unknown) (no (unknown) (unknown) report of frequency (unit s (unknown) date) of use of rescue unknown) inhaler a maintenance medication is (unknown) (no (unknown) (unknown) severity: mild (units (unknown) date) Qualified Code(s): unknown) F33.0 - Major depressive disorder, recurrent, (unknown) (no (unknown) (unknown) she describes as (units (unknown) date) ?unnecessary open unknown) heart surgery? at [place] in 2008.? 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 (unknown) (no (unknown) (unknown) spondylosis, (units (u nknown) date) spondylolisthesis at unknown) L4-5, lumbar radiculopathy, esophageal spasm, (unknown) (no (unknown) (unknown) states that a (units (u nknown) date) provider heard an unknown) abnormal sound when listening to her heart which (unknown) (no (unknown) (unknown) tabs 04/05/18 [Rx (units (unknown) date) Confirmed 03/13/22] unknown) (unknown) (no (unknown) (unknown) television: more (units (unknown) date) than half the days unknown) (unknown) (no (unknown) (unknown) that this (units (unkn own) date) psychotherapy unknown) program would be short-term only. (unknown) (no (unknown) (unknown) thought to be (units ( unknown) date) present based on the unknown) echocardiogram was not present.? 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 She unknown) declined breast exam today as she just had this done (unknown) (no (unknown) (unknown) ultrasound were (units (unknown) date) already ordered. unknown) ?Ms. Patino performed a breast exam at that (unknown) (no (unknown) (unknown) visit and (units (unkn own) date) encouraged the unknown) patient to schedule imaging as ordered. (unknown) (no (unknown) (unknown) was part of the (units (unknown) date) cluster of symptoms unknown) with which she presented to the ED. she has (unknown) (no (unknown) (unknown) way: not at all (units (unknown) date) unknown) (unknown) (no (unknown) (unknown) weeks. Contact us (units (unknown) date) sooner for any unknown) problems. (unknown) (no (unknown) (unknown) within the past (units (unknown) date) week when she was unknown) seen by another provider and she denies any (unknown) (no (unknown) (unknown) would be lower in (units (unknown) date) stress.? 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 (unknown) (no (unknown) (unknown) you to do your (units (unknown) date) work, take care of unknown) things at home, or get along with other Result panel [id number] (unknown) (no (unknown) (unknown) (no value) (units (unk nown) date) unknown) (unknown) (no (unknown) (unknown) (1) Pulmonary (units ( unknown) date) nodule: unknown) (unknown) (no (unknown) (unknown) (2) Mild persistent (unit s (unknown) date) asthma: unknown) (unknown) (no (unknown) (unknown) (3) Anxiety: (units (u nknown) date) unknown) (unknown) (no (unknown) (unknown) (4) Depression: (units (unknown) date) unknown) (unknown) (no (unknown) (unknown) (5) Breast (units (unk nown) date) tenderness in unknown) female: (unknown) (no (unknown) (unknown) (6) Bilateral (units ( unknown) date) breast lump: unknown) (unknown) (no (unknown) (unknown) 03/05/22 [Rx (units (u nknown) date) Confirmed 03/13/22] unknown) (unknown) (no (unknown) (unknown) 03/13/22 (units (unkno wn) date) unknown) (unknown) (no (unknown) (unknown) 03/13/22] (units (unkn own) date) unknown) (unknown) (no (unknown) (unknown) 03/18/22 1135 (units ( unknown) date) unknown) (unknown) (no (unknown) (unknown) 09:51) (units (unkno wn) date) unknown) (unknown) (no (unknown) (unknown) 1. Little interest (units (unknown) date) or pleasure in doing unknown) things: more than half the days (unknown) (no (unknown) (unknown) 11:27 (units (unkno wn) date) unknown) (unknown) (no (unknown) (unknown) 2. Feeling down, (units (unknown) date) depressed, or unknown) hopeless: more than half the days (unknown) (no (unknown) (unknown) 3. Trouble falling (units (unknown) date) or staying asleep, unknown) or sleeping too much: nearly every day (unknown) (no (unknown) (unknown) 36-year-old female (units (unknown) date) presents to unknown) establish here.? She lives in [place], (unknown) (no (unknown) (unknown) 4. Feeling tired or (unit s (unknown) date) having little unknown) energy: nearly every day (unknown) (no (unknown) (unknown) 5. Poor appetite or (unit s (unknown) date) overeating: more unknown) than half the days (unknown) (no (unknown) (unknown) 6. Feeling bad (units (unknown) date) about yourself - or unknown) that you are a failure or have let yourself (unknown) (no (unknown) (unknown) 7. Trouble (units (unk nown) date) concentrating on unknown) things, such as reading the newspaper or watching (unknown) (no (unknown) (unknown) 8. Moving or (units (u nknown) date) speaking so slowly unknown) that other people could have noticed? - Or the (unknown) (no (unknown) (unknown) 9. Thoughts that (units (unknown) date) you would be better unknown) off or of hurting yourself in some (unknown) (no (unknown) (unknown) ALL numbers entered (unit s (unknown) date) in calculation for unknown) 'Time Coding Minutes Spent' are (unknown) (no (unknown) (unknown) Accompanied by: (units (unknown) date) Self / Same As unknown) Patient (unknown) (no (unknown) (unknown) Age/Sex: 36 / F (units (unknown) date) Date of Service: unknown) (unknown) (no (unknown) (unknown) Allergies (units (unkn own) date) unknown) (unknown) (no (unknown) (unknown) [place] [address] (unit s (unknown) date) unknown) (unknown) (no (unknown) (unknown) Anxiety (units (unkno wn) date) unknown) (unknown) (no (unknown) (unknown) Anxiety/depression: (unit s (unknown) date) Patient states that unknown) she has tried to find a therapist (unknown) (no (unknown) (unknown) Assessment + Plan (units (unknown) date) unknown) (unknown) (no (unknown) (unknown) Asthma complication (unit s (unknown) date) type: uncomplicated unknown) Qualified Code(s): J45.30 (unknown) (no (unknown) (unknown) Asthma (units (unkno wn) date) unknown) (unknown) (no (unknown) (unknown) Attending Dr: (units ( unknown) date) Wes SCOTT unknown) (unknown) (no (unknown) (unknown) Auscultation: clear (unit s (unknown) date) to auscultation unknown) bilaterally (unknown) (no (unknown) (unknown) BMI 18.3 (units (unkno wn) date) unknown) (unknown) (no (unknown) (unknown) BP 118/70 (units (unkn own) date) unknown) (unknown) (no (unknown) (unknown) Becoming easily (units (unknown) date) annoyed or unknown) irritable: 3 = Nearly every day (unknown) (no (unknown) (unknown) Being so restless (units (unknown) date) that it is hard to unknown) sit still: 3 = Nearly every day (unknown) (no (unknown) (unknown) Blood Pressure (units (unknown) date) Location Lt brachial unknown) (unknown) (no (unknown) (unknown) Breast tenderness (units (unknown) date) and lumps: Patient unknown) reminded to schedule mammogram and (unknown) (no (unknown) (unknown) CT chest abdomen (units (unknown) date) pelvis which showed unknown) multiple pulmonary nodules, all 3 mL or (unknown) (no (unknown) (unknown) Cardio (units (unkno wn) date) unknown) (unknown) (no (unknown) (unknown) Chief Complaint (units (unknown) date) unknown) (unknown) (no (unknown) (unknown) Chief Complaint: (units (unknown) date) Establish care unknown) (unknown) (no (unknown) (unknown) Const (units (unkno wn) date) unknown) (unknown) (no (unknown) (unknown) Counseling and (units (unknown) date) educating the unknown) patient/family/careg iver: 16 (unknown) (no (unknown) (unknown) : 1985 (units (unknown) date) Acct:[id number] unknown) (unknown) (no (unknown) (unknown) Depression Type: (units (unknown) date) major depressive unknown) disorder Major depression recurrence: (unknown) (no (unknown) (unknown) Depression (units (unk nown) date) unknown) (unknown) (no (unknown) (unknown) Depression/Bipolar (units (unknown) date) (159/160/161/169/177 unknown) ) (unknown) (no (unknown) (unknown) Dept at (units (unkno wn) date) . unknown) (unknown) (no (unknown) (unknown) Details: (units (unkno wn) date) unknown) (unknown) (no (unknown) (unknown) Documented By: (units (unknown) date) Wes Herrera unknown) 03/13/22 1121 (unknown) (no (unknown) (unknown) Effort + (units (unkno wn) date) Inspection: normal unknown) respiratory effort (unknown) (no (unknown) (unknown) Exam Peds (units (unkn own) date) unknown) (unknown) (no (unknown) (unknown) F41.9 - Anxiety (units (unknown) date) disorder, unknown) unspecified (unknown) (no (unknown) (unknown) Feeling afraid as (units (unknown) date) if something awful unknown) might happen: 1 = Several days (unknown) (no (unknown) (unknown) Feeling nervous, (units (unknown) date) anxious, or on edge: unknown) 3 = Nearly every day (unknown) (no (unknown) (unknown) [facility]) (unknown) (no (unknown) (unknown) [place] (units (unkno wn) date) unknown) (unknown) (no (unknown) (unknown) NAGI-7 (units (unkno wn) date) unknown) (unknown) (no (unknown) (unknown) Gastrointestinal (units (unknown) date) Upset unknown) (unknown) (no (unknown) (unknown) General: no acute (units (unknown) date) distress unknown) (unknown) (no (unknown) (unknown) H/O exploratory (units (unknown) date) laparotomy unknown) (unknown) (no (unknown) (unknown) H/O left knee (units ( unknown) date) surgery unknown) (unknown) (no (unknown) (unknown) HFA) 2 puff (units (un known) date) inhalation BID #12 unknown) grams 03/13/22 [Rx Confirmed 03/13/22] (unknown) (no (unknown) (unknown) HPI (units (unkno wn) date) unknown) (unknown) (no (unknown) (unknown) Health Management (units (unknown) date) reviewed with unknown) patient: Yes (unknown) (no (unknown) (unknown) Health Management (units (unknown) date) unknown) (unknown) (no (unknown) (unknown) Height 160.02 cm (units (unknown) date) unknown) (unknown) (no (unknown) (unknown) History of open (units (unknown) date) heart surgery unknown) (unknown) (no (unknown) (unknown) History of surgery (units (unknown) date) unknown) (unknown) (no (unknown) (unknown) If you checked off (units (unknown) date) any problems, how unknown) difficult have these problems made it for (unknown) (no (unknown) (unknown) Intake Note: (units (u nknown) date) unknown) (unknown) (no (unknown) (unknown) Intake performed (units (unknown) date) by: Luke Leon unknown) (unknown) (no (unknown) (unknown) Intake (units (unkno wn) date) unknown) (unknown) (no (unknown) (unknown) Intake- Clincial (units (unknown) date) Staff unknown) (unknown) (no (unknown) (unknown) Irritation/redness (units (unknown) date) unknown) (unknown) (no (unknown) (unknown) Kidney infection (units (unknown) date) unknown) (unknown) (no (unknown) (unknown) Last Menstural (units (unknown) date) Cycle + Details unknown) (unknown) (no (unknown) (unknown) Loc: [facility] (units (unkno wn) date) unknown) (unknown) (no (unknown) (unknown) [id number] (units (unk nown) date) unknown) (unknown) (no (unknown) (unknown) Medical History (units (unknown) date) (Updated 03/18/22 @ unknown) 11:24 by TYLER Mckeon) (unknown) (no (unknown) (unknown) Medications (units (un known) date) unknown) (unknown) (no (unknown) (unknown) Medications: (units (u nknown) date) unknown) (unknown) (no (unknown) (unknown) Mild persistent (units (unknown) date) asthma unknown) (unknown) (no (unknown) (unknown) Mild persistent (units (unknown) date) asthma, unknown) uncomplicated (unknown) (no (unknown) (unknown) Mild persistent (units (unknown) date) asthma: lung exam unknown) unremarkable in clinic; however, based on her (unknown) (no (unknown) (unknown) New (units (unkno wn) date) unknown) (unknown) (no (unknown) (unknown) Not being able to (units (unknown) date) stop or control unknown) worryin = More than half the days (unknown) (no (unknown) (unknown) Ordering (units (unkno wn) date) medications, tests, unknown) or procedures: 1 (unknown) (no (unknown) (unknown) Orders: (units (unkno wn) date) unknown) (unknown) (no (unknown) (unknown) Other Menstrual (units (unknown) date) Period: Other unknown) (unknown) (no (unknown) (unknown) Over the last 2 (units (unknown) date) weeks, how often unknown) have you been bothered by any of the following (unknown) (no (unknown) (unknown) Oxygen Delivery (units (unknown) date) Method room air unknown) (unknown) (no (unknown) (unknown) PFSH (units (unkno wn) date) unknown) (unknown) (no (unknown) (unknown) PHQ-9 (units (unkno wn) date) unknown) (unknown) (no (unknown) (unknown) Past medical (units (u nknown) date) history notable for unknown) anxiety and depression, asthma, lumbar (unknown) (no (unknown) (unknown) Patient has (units (un known) date) struggled with unknown) anxiety and depression.? She has been on medication (unknown) (no (unknown) (unknown) Patient reports (units (unknown) date) that for her asthma unknown) she is needing to use her albuterol rescue (unknown) (no (unknown) (unknown) Patient tells me (units (unknown) date) that she is wary of unknown) the medical system ever since she had what (unknown) (no (unknown) (unknown) Patient was in the (units (unknown) date) ED on March 05.? unknown) She presented to the ED with complaint (unknown) (no (unknown) (unknown) Patient was seen (units (unknown) date) for an ED follow-up unknown) last week by Sofia Patino who placed an (unknown) (no (unknown) (unknown) Patient: (units (unkno wn) date) Carmina Castillo Kenneth unknown) MR#: (unknown) (no (unknown) (unknown) Pediatric Office (units (unknown) date) Visit unknown) (unknown) (no (unknown) (unknown) [place]ins Allergy (unit s (unknown) date) (Intermediate, unknown) Verified 03/08/22 09:51) (unknown) (no (unknown) (unknown) Performing a (units (u nknown) date) medically unknown) appropriate exam and/or evaluation: 14 (unknown) (no (unknown) (unknown) Pertussis Vaccines (units (unknown) date) [PERTUSSIS VACCINES] unknown) Allergy (Unknown, Verified 03/08/22 (unknown) (no (unknown) (unknown) Plan (units (unkno wn) date) unknown) (unknown) (no (unknown) (unknown) Position Sitting (units (unknown) date) unknown) (unknown) (no (unknown) (unknown) Preparing to see (units (unknown) date) the patient, i.e., unknown) chart review, review of tests: 8 (unknown) (no (unknown) (unknown) Pt is here to Est (units (unknown) date) Care and cont f/u unknown) from ED visit (unknown) (no (unknown) (unknown) Pulmonary nodules: (units (unknown) date) Maintain plan for unknown) follow-up chest CT in 3 months and (unknown) (no (unknown) (unknown) Pulse 68 (units (unkno wn) date) unknown) (unknown) (no (unknown) (unknown) Pulse Oximetry (%) (units (unknown) date) 98 unknown) (unknown) (no (unknown) (unknown) Pulse Source (units (u nknown) date) Monitor unknown) (unknown) (no (unknown) (unknown) Qualifiers: (units (un known) date) unknown) (unknown) (no (unknown) (unknown) Quality Reporting (units (unknown) date) unknown) (unknown) (no (unknown) (unknown) Questionnaires (units (unknown) date) unknown) (unknown) (no (unknown) (unknown) Rash (units (unkno wn) date) unknown) (unknown) (no (unknown) (unknown) Rash, throat was (units (unknown) date) tingly unknown) (unknown) (no (unknown) (unknown) Rate: regular rate (units (unknown) date) unknown) (unknown) (no (unknown) (unknown) Reason For Visit (units (unknown) date) unknown) (unknown) (no (unknown) (unknown) Referral Behavioral (unit s (unknown) date) Health F33.0 - Major unknown) depressive disorder, recurrent, mild, (unknown) (no (unknown) (unknown) Referrals (units (unkn own) date) unknown) (unknown) (no (unknown) (unknown) Resp (units (unkno wn) date) unknown) (unknown) (no (unknown) (unknown) Rhythm: regular (units (unknown) date) rhythm unknown) (unknown) (no (unknown) (unknown) S/P laparoscopic (units (unknown) date) supracervical unknown) hysterectomy (04/04/18) (unknown) (no (unknown) (unknown) Seizure (units (unkno wn) date) unknown) (unknown) (no (unknown) (unknown) Signed By: (units (unk nown) date) <Electronically unknown) signed by Wes Herrera> (unknown) (no (unknown) (unknown) Signed (units (unkno wn) date) unknown) (unknown) (no (unknown) (unknown) Smoking Status: (units (unknown) date) Former smoker unknown) (unknown) (no (unknown) (unknown) Social History (units (unknown) date) unknown) (unknown) (no (unknown) (unknown) Source: Developed (units (unknown) date) by Drs. Pako Patterson unknown) Ashley Dumont, Gordon Vaughn (unknown) (no (unknown) (unknown) Status: Acute (units ( unknown) date) unknown) (unknown) (no (unknown) (unknown) Stomach pain, (units ( unknown) date) nausea, headache unknown) (unknown) (no (unknown) (unknown) Surgical History (units (unknown) date) (Reviewed 03/18/22 @ unknown) 11:21 by TYLER Mckeon) (unknown) (no (unknown) (unknown) Temp 98.1 F (units (un known) date) unknown) (unknown) (no (unknown) (unknown) Temp Source (units (un known) date) Temporal Artery Scan unknown) (unknown) (no (unknown) (unknown) This note may have (units (unknown) date) been all or unknown) partially generated using voice recognition (unknown) (no (unknown) (unknown) Time Coding Minutes (unit s (unknown) date) Spent: (must be on unknown) same date of service/appointment) (unknown) (no (unknown) (unknown) Time Spent (units (unk nown) date) unknown) (unknown) (no (unknown) (unknown) Time spent was (units ( unknown) date) medically necessary unknown) as this patient is new to vt and therefore we (unknown) (no (unknown) (unknown) Tobacco + Substance (unit s (unknown) date) Use unknown) (unknown) (no (unknown) (unknown) Tobacco Status (units (unknown) date) unknown) (unknown) (no (unknown) (unknown) Total NAGI-7 score (units (unknown) date) (0-4 normal; 5-9 unknown) mild; 10-14 moderate; 15-21 severe): 18 (unknown) (no (unknown) (unknown) Total Time: 40 (units (unknown) date) unknown) (unknown) (no (unknown) (unknown) Total score: 18 (units (unknown) date) unknown) (unknown) (no (unknown) (unknown) Trouble relaxin (unit s (unknown) date) = Nearly every day unknown) (unknown) (no (unknown) (unknown) Visit Reasons: Est (units (unknown) date) Care, recent ER unknown) visit 01 (unknown) (no (unknown) (unknown) Vitals (units (unkno wn) date) unknown) (unknown) (no (unknown) (unknown) [place] with her (unit s (unknown) date) and her 3 unknown) kids ages 6, 11, 17.? 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 (unknown) (no (unknown) (unknown) Weight 46.89 kg (units (unknown) date) unknown) (unknown) (no (unknown) (unknown) Worrying too much (units (unknown) date) about different unknown) things: 3 = Nearly every day (unknown) (no (unknown) (unknown) abnormality of the (units (unknown) date) heart of an unknown) urgent/emergent nature so open heart surgery was (unknown) (no (unknown) (unknown) addition to (units (un known) date) addressing several unknown) issues both from her ED visit and additional (unknown) (no (unknown) (unknown) after the surgery (units (unknown) date) she had sternal unknown) wires removed due to 1 having snapped.? She (unknown) (no (unknown) (unknown) albuterol sulfate (units (unknown) date) 90 mcg/actuation unknown) aerosol inhaler (ProAir HFA) 1 puff (unknown) (no (unknown) (unknown) amoxicillin Allergy (unit s (unknown) date) (Intermediate, unknown) Verified 03/08/22 09:51) (unknown) (no (unknown) (unknown) and colleagues, (units (unknown) date) with an educational unknown) sal from [email or web address]. (unknown) (no (unknown) (unknown) and she would like (units (unknown) date) to undergo unknown) psychotherapy again. (unknown) (no (unknown) (unknown) and your family (units (unknown) date) down: nearly every unknown) day (unknown) (no (unknown) (unknown) around 2019; it is (units (unknown) date) unclear whether she unknown) needs to be seen by Cardiology for (unknown) (no (unknown) (unknown) associated with (units (unknown) date) tasks PERFORMED ON unknown) DATE OF SERVICE. (unknown) (no (unknown) (unknown) azithromycin (units (u nknown) date) Allergy unknown) (Intermediate, Verified 03/08/22 09:51) (unknown) (no (unknown) (unknown) benefit from (units (u nknown) date) additional time off unknown) of work to recover. We agreed that we will (unknown) (no (unknown) (unknown) branches.? (units (unk nown) date) unknown) (unknown) (no (unknown) (unknown) changes. Will (units ( unknown) date) contact her with unknown) results and recommendations. (unknown) (no (unknown) (unknown) ciprofloxacin (units ( unknown) date) Allergy unknown) (Intermediate, Verified 03/08/22 09:51) (unknown) (no (unknown) (unknown) denies any ongoing (units (unknown) date) issues unknown) postoperatively.? 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 She unknown) states that ultimately the abnormality which was (unknown) (no (unknown) (unknown) fluticasone (units (un known) date) propion-salmeterol unknown) 230-21 mcg/actuation (Advair HFA) 2 puffs (unknown) (no (unknown) (unknown) fluticasone (units (un known) date) propionate 230 unknown) mcg-salmeterol 21 mcg/actuation HFA inhaler (Advair (unknown) (no (unknown) (unknown) gluten Adverse (units (unknown) date) Reaction (Mild, unknown) Verified 03/08/22 09:51) (unknown) (no (unknown) (unknown) had to call out of (units (unknown) date) work and feels that unknown) due to multiple ongoing issues she would (unknown) (no (unknown) (unknown) have occurred. If (units (unknown) date) there are any unknown) questions, please contact the Medical Records (unknown) (no (unknown) (unknown) household members: (units (unknown) date) spouse and children unknown) (unknown) (no (unknown) (unknown) hydrocodone 5 (units ( unknown) date) mg-acetaminophen 325 unknown) mg tablet 1 tab PO Q6H PRN pain #10 tabs (unknown) (no (unknown) (unknown) hydromorphone (units ( unknown) date) Allergy (Mild, unknown) Verified 03/08/22 09:51) (unknown) (no (unknown) (unknown) iatry Department; (units (unknown) date) she understands that unknown) it will be a wait to see a therapist and (unknown) (no (unknown) (unknown) ibuprofen Allergy (units (unknown) date) (Mild, Verified unknown) 03/08/22 09:51) (unknown) (no (unknown) (unknown) in the past but (units (unknown) date) these have not unknown) helped; she felt that psychotherapy has helped (unknown) (no (unknown) (unknown) indicated. Trial (units (unknown) date) Advair. Patient is unknown) also still recovering from viral URI which (unknown) (no (unknown) (unknown) inhalation BID 12 (units (unknown) date) grams 2RF unknown) (unknown) (no (unknown) (unknown) inhalation Q6H PRN (units (unknown) date) Adequate Ventilation unknown) #8.5 grams 03/08/22 [Rx Confirmed (unknown) (no (unknown) (unknown) inhaler 2-3 times (units (unknown) date) daily.? She has had unknown) asthma for many years.? She is been on (unknown) (no (unknown) (unknown) issues. (units (unkno wn) date) unknown) (unknown) (no (unknown) (unknown) led to (units (unkno wn) date) echocardiogram being unknown) performed.? She reports there was concern for an (unknown) (no (unknown) (unknown) less with no (units (u nknown) date) evidence of acute unknown) process.? Patient has already been referred to (unknown) (no (unknown) (unknown) locally but has not (unit s (unknown) date) had success. We unknown) agreed to a referral to [facility] (unknown) (no (unknown) (unknown) maintenance inhaler (units (unknown) date) in the past; she unknown) recalls being on Flovent which she felt did (unknown) (no (unknown) (unknown) may occur. (units (unk nown) date) Occasional unknown) wrong-word or 'sound-alike' substitutions may have (unknown) (no (unknown) (unknown) mild (units (unkno wn) date) unknown) (unknown) (no (unknown) (unknown) monitoring. (units (un known) date) unknown) (unknown) (no (unknown) (unknown) more than usual: (units (unknown) date) several days unknown) (unknown) (no (unknown) (unknown) needed to review (units (unknown) date) her psychosocial and unknown) medical history comprehensively in (unknown) (no (unknown) (unknown) nickel Adverse (units (unknown) date) Reaction (Mild, unknown) Verified 03/08/22 09:51) (unknown) (no (unknown) (unknown) not work very (units ( unknown) date) well.? She is not unknown) sure what other inhalers she has tried. (unknown) (no (unknown) (unknown) occurred due to the (unit s (unknown) date) inherent limitations unknown) of voice recognition software. Please (unknown) (no (unknown) (unknown) of chest pain, (units ( unknown) date) cough, sternal pain, unknown) bilateral breast lumps.? At the ED she had a (unknown) (no (unknown) (unknown) ondansetron 4 mg (units (unknown) date) disintegrating unknown) tablet 4 mg PO QID PRN nausea and vomiting #14 (unknown) (no (unknown) (unknown) opposite - being so (unit s (unknown) date) fidgety or restless unknown) that you have been moving around a lot (unknown) (no (unknown) (unknown) order for a (units (un known) date) three-month unknown) follow-up CT chest. ?Bilateral diagnostic mammogram and (unknown) (no (unknown) (unknown) people?: very (units ( unknown) date) difficult unknown) (unknown) (no (unknown) (unknown) problems? (units (unkn own) date) unknown) (unknown) (no (unknown) (unknown) pulmonary nodule, (units (unknown) date) open heart surgery unknown) 2008. (unknown) (no (unknown) (unknown) pulmonology (units (un known) date) consult. Patient unknown) reminded to schedule these. (unknown) (no (unknown) (unknown) pulmonology to (units (unknown) date) address this. unknown) (unknown) (no (unknown) (unknown) read the note (units ( unknown) date) carefully and unknown) recognize, using context, where these substitutions (unknown) (no (unknown) (unknown) recommend 2 weeks (units (unknown) date) off from work and unknown) she will see me for follow-up visit in 2 (unknown) (no (unknown) (unknown) recurrent (units (unkn own) date) Active/Remission unknown) status: currently active Major depression episode (unknown) (no (unknown) (unknown) report of frequency (unit s (unknown) date) of use of rescue unknown) inhaler a maintenance medication is (unknown) (no (unknown) (unknown) severity: mild (units (unknown) date) Qualified Code(s): unknown) F33.0 - Major depressive disorder, recurrent, (unknown) (no (unknown) (unknown) she describes as (units (unknown) date) ?unnecessary open unknown) heart surgery? at [place] in 2008.? 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 (unknown) (no (unknown) (unknown) spondylosis, (units (u nknown) date) spondylolisthesis at unknown) L4-5, lumbar radiculopathy, esophageal spasm, (unknown) (no (unknown) (unknown) states that a (units (u nknown) date) provider heard an unknown) abnormal sound when listening to her heart which (unknown) (no (unknown) (unknown) tabs 04/05/18 [Rx (units (unknown) date) Confirmed 03/13/22] unknown) (unknown) (no (unknown) (unknown) television: more (units (unknown) date) than half the days unknown) (unknown) (no (unknown) (unknown) that this (units (unkn own) date) psychotherapy unknown) program would be short-term only. (unknown) (no (unknown) (unknown) thought to be (units ( unknown) date) present based on the unknown) echocardiogram was not present.? 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 She unknown) declined breast exam today as she just had this done (unknown) (no (unknown) (unknown) ultrasound were (units (unknown) date) already ordered. unknown) ?Ms. Patino performed a breast exam at that (unknown) (no (unknown) (unknown) visit and (units (unkn own) date) encouraged the unknown) patient to schedule imaging as ordered. (unknown) (no (unknown) (unknown) was part of the (units (unknown) date) cluster of symptoms unknown) with which she presented to the ED. she has (unknown) (no (unknown) (unknown) way: not at all (units (unknown) date) unknown) (unknown) (no (unknown) (unknown) weeks. Contact us (units (unknown) date) sooner for any unknown) problems. (unknown) (no (unknown) (unknown) within the past (units (unknown) date) week when she was unknown) seen by another provider and she denies any (unknown) (no (unknown) (unknown) would be lower in (units (unknown) date) stress.? 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 (unknown) (no (unknown) (unknown) you to do your (units (unknown) date) work, take care of unknown) things at home, or get along with other Result panel 597 (unknown) (no date) (unknown) (unknown) (no value) (units (un known) unknown) (unknown) (no date) (unknown) (unknown) 03/24/22 (units (unkn own) unknown) (unknown) (no date) (unknown) (unknown) [address] (units (unk nown) [address] unknown) (unknown) (no date) (unknown) (unknown) : [id number] (units ( unknown) unknown) (unknown) (no date) (unknown) (unknown) Accession (units (unk nown) Number: unknown) [id number] (unknown) (no date) (unknown) (unknown) Age/Sex: 36 / (units (unknown) F Date of unknown) Service: (unknown) (no date) (unknown) (unknown) CHIKIS Cintron (units (unknown) [id number] unknown) (unknown) (no date) (unknown) (unknown) Approved by: (units ( unknown) ethan Bautista) Jose on 03/24/2022 at 20:02 (unknown) (no date) (unknown) (unknown) Bones and (units (unk nown) chest wall: No unknown) suspicious bony lesions. Overlying soft tissues (unknown) (no date) (unknown) (unknown) CHEST 2 VIEW, (units (unknown) 12/16/2008, unknown) 21:11. (unknown) (no date) (unknown) (unknown) COMPARISON: (units (u nknown) [place]) [facility], XR CHEST 1V, 03/05/2022, 10:32. [place] (unknown) (no date) (unknown) (unknown) : (units (unkn own) 1985 unknown) Acct:[id number] (unknown) (no date) (unknown) (unknown) Dictated by: (units ( unknown) pilar Bautista M.D. on 03/24/2022 at 20:01 (unknown) (no date) (unknown) (unknown) FINDINGS: (units (unk nown) unknown) (unknown) (no date) (unknown) (unknown) [facility], (units (unknown) unknown) (unknown) (no date) (unknown) (unknown) IMPRESSION: (units (u nknown) Normal for age, unknown) source of current chest pain symptoms is not seen. (unknown) (no date) (unknown) (unknown) INDICATIONS: (units ( unknown) chest pain unknown) (unknown) (no date) (unknown) (unknown) [facility] (unknown) (no date) (unknown) (unknown) Loc: ED (units (unkn own) unknown) (unknown) (no date) (unknown) (unknown) Lungs and (units (unk nown) pleura: Lungs unknown) are clear. No pleural effusions or pneumothorax. (unknown) (no date) (unknown) (unknown) Mediastinum: (units ( unknown) Mediastinal unknown) contours appear normal. Heart size is normal. (unknown) (no date) (unknown) (unknown) Ordering (units (unkn own) Provider: unknown) Danita Vila D.O. (unknown) (no date) (unknown) (unknown) PROCEDURE: XR (units (unknown) CHEST 1V unknown) (unknown) (no date) (unknown) (unknown) Patient: (units (unkn own) David Castillo unknown) ie A MR# (unknown) (no date) (unknown) (unknown) Procedure: XR (units (unknown) chest 1V unknown) (unknown) (no date) (unknown) (unknown) Signed (units (unkn own) unknown) (unknown) (no date) (unknown) (unknown) Surgical (units (unkn own) changes and unknown) devices: None. (unknown) (no date) (unknown) (unknown) TECHNIQUE: One (units (unknown) view of the unknown) chest was acquired. (unknown) (no date) (unknown) (unknown) XRay Report (units (u nknown) unknown) (unknown) (no date) (unknown) (unknown) appear (units (unkn own) unknown) (unknown) (no date) (unknown) (unknown) unremarkable. (units (unknown) unknown) Result panel 598 (unknown) (no date) (unknown) (unknown) 0 /ul (unkn own) (unknown) (no date) (unknown) (unknown) 0 /ul (unkn own) (unknown) (no date) (unknown) (unknown) 0.1 % (unkn own) (unknown) (no date) (unknown) (unknown) 0.3 % (unkn own) (unknown) (no date) (unknown) (unknown) 12.1 g/dl (unkn own) (unknown) (no date) (unknown) (unknown) 12.2 % (unkn own) (unknown) (no date) (unknown) (unknown) 232 x10 3/ul (unkn own) (unknown) (no date) (unknown) (unknown) 3.96 x10 6/ul (unkn own) (unknown) (no date) (unknown) (unknown) 30.6 pg (unkn own) (unknown) (no date) (unknown) (unknown) 34.0 % (unkn own) (unknown) (no date) (unknown) (unknown) 35.7 % (unkn own) (unknown) (no date) (unknown) (unknown) 400 /ul (unkn own) (unknown) (no date) (unknown) (unknown) 500 /ul (unkn own) (unknown) (no date) (unknown) (unknown) 6.1 % (unkn own) (unknown) (no date) (unknown) (unknown) 6200 /ul (unkn own) (unknown) (no date) (unknown) (unknown) 7.2 x10 3/ul (unkn own) (unknown) (no date) (unknown) (unknown) 7.4 % (unkn own) (unknown) (no date) (unknown) (unknown) 86.1 % (unkn own) (unknown) (no date) (unknown) (unknown) 90.1 fl (unkn own) Result panel 599 (unknown) (no date) (unknown) (unknown) Flu A (units (unkn own) NEGATIVE unknown) (unknown) (no date) (unknown) (unknown) Flu B (units (unkn own) NEGATIVE unknown) (unknown) (no date) (unknown) (unknown) Negative (units (unkn own) unknown) (unknown) (no date) (unknown) (unknown) Negative (units (unkn own) unknown) Result panel 600 (unknown) (no date) (unknown) (unknown) 1.0 (units unknown) (unknown) (unknown) (no date) (unknown) (unknown) 11.8 seconds (unkn own) (unknown) (no date) (unknown) (unknown) 27 seconds (unkn own) (unknown) (no date) (unknown) (unknown) 27 seconds (unkn own) Result panel 601 (unknown) (no date) (unknown) (unknown) > 60 ml/min (unkn own) (unknown) (no date) (unknown) (unknown) > 60 ml/min (unkn own) (unknown) (no date) (unknown) (unknown) 0.5 mg/dl (unkn own) (unknown) (no date) (unknown) (unknown) 0.72 mg/dl (unkn own) (unknown) (no date) (unknown) (unknown) 1.4 (units (unkn own) unknown) (unknown) (no date) (unknown) (unknown) 1.5 mmol/l (unkn own) (unknown) (no date) (unknown) (unknown) 1.8 mg/dl (unkn own) (unknown) (no date) (unknown) (unknown) 103 mmol/l (unkn own) (unknown) (no date) (unknown) (unknown) 12 mg/dl (unkn own) (unknown) (no date) (unknown) (unknown) 138 mmol/l (unkn own) (unknown) (no date) (unknown) (unknown) 147 mg/dl (unkn own) (unknown) (no date) (unknown) (unknown) 147 mg/dl (unkn own) (unknown) (no date) (unknown) (unknown) 16.7 (units (unkn own) unknown) (unknown) (no date) (unknown) (unknown) 22 iu/l (unkn own) (unknown) (no date) (unknown) (unknown) 24 mmol/l (unkn own) (unknown) (no date) (unknown) (unknown) 28 iu/l (unkn own) (unknown) (no date) (unknown) (unknown) 3.1 g/dl (unkn own) (unknown) (no date) (unknown) (unknown) 3.2 mmol/l (unkn own) (unknown) (no date) (unknown) (unknown) 341 u/l (unkn own) (unknown) (no date) (unknown) (unknown) 4.3 g/dl (unkn own) (unknown) (no date) (unknown) (unknown) 46 u/l (unkn own) (unknown) (no date) (unknown) (unknown) 7.4 g/dl (unkn own) (unknown) (no date) (unknown) (unknown) 8.5 mg/dl (unkn own) (unknown) (no date) (unknown) (unknown) 91 u/l (unkn own) (unknown) (no date) (unknown) (unknown) Test not % (unkn own) performed (unknown) (no date) (unknown) (unknown) Test not % (unkn own) performed (unknown) (no date) (unknown) (unknown) Test not ng/ml (unkn own) performed (unknown) (no date) (unknown) (unknown) Test not ng/ml (unkn own) performed Result panel 602 (unknown) (no date) (unknown) (unknown) > 60 ml/min (unkn own) (unknown) (no date) (unknown) (unknown) > 60 ml/min (unkn own) (unknown) (no date) (unknown) (unknown) 0.016 ng/ml (unkn own) (unknown) (no date) (unknown) (unknown) 0.016 ng/ml (unkn own) (unknown) (no date) (unknown) (unknown) 0.5 mg/dl (unkn own) (unknown) (no date) (unknown) (unknown) 0.72 mg/dl (unkn own) (unknown) (no date) (unknown) (unknown) 1.4 (units (unkn own) unknown) (unknown) (no date) (unknown) (unknown) 1.8 mg/dl (unkn own) (unknown) (no date) (unknown) (unknown) 103 mmol/l (unkn own) (unknown) (no date) (unknown) (unknown) 12 mg/dl (unkn own) (unknown) (no date) (unknown) (unknown) 138 mmol/l (unkn own) (unknown) (no date) (unknown) (unknown) 147 mg/dl (unkn own) (unknown) (no date) (unknown) (unknown) 147 mg/dl (unkn own) (unknown) (no date) (unknown) (unknown) 16.7 (units (unkn own) unknown) (unknown) (no date) (unknown) (unknown) 22 iu/l (unkn own) (unknown) (no date) (unknown) (unknown) 24 mmol/l (unkn own) (unknown) (no date) (unknown) (unknown) 28 iu/l (unkn own) (unknown) (no date) (unknown) (unknown) 3.1 g/dl (unkn own) (unknown) (no date) (unknown) (unknown) 3.2 mmol/l (unkn own) (unknown) (no date) (unknown) (unknown) 341 u/l (unkn own) (unknown) (no date) (unknown) (unknown) 4.3 g/dl (unkn own) (unknown) (no date) (unknown) (unknown) 46 u/l (unkn own) (unknown) (no date) (unknown) (unknown) 7.4 g/dl (unkn own) (unknown) (no date) (unknown) (unknown) 8.5 mg/dl (unkn own) (unknown) (no date) (unknown) (unknown) 91 u/l (unkn own) (unknown) (no date) (unknown) (unknown) Test not % (unkn own) performed (unknown) (no date) (unknown) (unknown) Test not % (unkn own) performed (unknown) (no date) (unknown) (unknown) Test not ng/ml (unkn own) performed (unknown) (no date) (unknown) (unknown) Test not ng/ml (unkn own) performed Result panel 603 (unknown) (no date) (unknown) (unknown) 0.14 ng/ml (unkn own) (unknown) (no date) (unknown) (unknown) 0.14 ng/ml (unkn own) Result panel 604 (unknown) (no (unknown) (unknown) (no value) (units (unk nown) date) unknown) (unknown) (no (unknown) (unknown) 03/24/22 03/24/22 (units (unknown) date) 03/24/22 unknown) Range/Units (unknown) (no (unknown) (unknown) 03/24/22 19:09 (units (unknown) date) unknown) (unknown) (no (unknown) (unknown) 03/24/22 19:16 (units (unknown) date) unknown) (unknown) (no (unknown) (unknown) 03/24/22 19:40 (units (unknown) date) unknown) (unknown) (no (unknown) (unknown) 03/24/22 (units (unkno wn) date) unknown) (unknown) (no (unknown) (unknown) 1 puff INHALATION (units (unknown) date) Q6H PRN (Reason: unknown) Adequate Ventilation) Qty: 8.5 0RF (unknown) (no (unknown) (unknown) 1 tab PO Q6H PRN (units (unknown) date) (Reason: pain) Qty: unknown) 10 0RF (unknown) (no (unknown) (unknown) 18:50 (units (unkno wn) date) unknown) (unknown) (no (unknown) (unknown) 19:09 19:40 19:40 (units (unknown) date) unknown) (unknown) (no (unknown) (unknown) 19:40 19:40 19:40 (units (unknown) date) unknown) (unknown) (no (unknown) (unknown) 2 puff inhalation (units (unknown) date) BID Qty: 12 2RF unknown) (unknown) (no (unknown) (unknown) 4 mg PO QID PRN (units (unknown) date) (Reason: nausea and unknown) vomiting) Qty: 14 2RF (unknown) (no (unknown) (unknown) ALT (<35) IU/L (units (unknown) date) unknown) (unknown) (no (unknown) (unknown) ALT 22 (<35) IU/L (units (unknown) date) unknown) (unknown) (no (unknown) (unknown) APTT (26-36) (units (u nknown) date) SECONDS unknown) (unknown) (no (unknown) (unknown) APTT 27 (26-36) (units (unknown) date) SECONDS unknown) (unknown) (no (unknown) (unknown) AST (14-36) IU/L (units (unknown) date) unknown) (unknown) (no (unknown) (unknown) AST 28 (14-36) (units (unknown) date) IU/L unknown) (unknown) (no (unknown) (unknown) Acetaminophen (units ( unknown) date) (Acetaminophen 325 unknown) Mg Tablet) 975 mg PO NOW ONE (unknown) (no (unknown) (unknown) Advair HFA 230-21 (units (unknown) date) mcg/actuation HFA unknown) aerosol inhaler (unknown) (no (unknown) (unknown) Age/Sex: 36 / F (units (unknown) date) unknown) (unknown) (no (unknown) (unknown) Albumin (3.5-5.0) (units (unknown) date) g/dL unknown) (unknown) (no (unknown) (unknown) Albumin 4.3 (units (un known) date) (3.5-5.0) g/dL unknown) (unknown) (no (unknown) (unknown) Albumin/Globulin (units (unknown) date) Ratio (1.0-2.8) unknown) (unknown) (no (unknown) (unknown) Albumin/Globulin (units (unknown) date) Ratio 1.4 (1.0-2.8) unknown) (unknown) (no (unknown) (unknown) Alkaline (units (unkno wn) date) Phosphatase unknown) (38-126) U/L (unknown) (no (unknown) (unknown) Alkaline (units (unkno wn) date) Phosphatase 46 unknown) (38-126) U/L (unknown) (no (unknown) (unknown) Allergies (units (unkn own) date) unknown) (unknown) (no (unknown) (unknown) Allergy/AdvReac (units (unknown) date) Type Severity unknown) Reaction Status Date / Time (unknown) (no (unknown) (unknown) Anxiety (units (unkno wn) date) unknown) (unknown) (no (unknown) (unknown) Asthma (units (unkno wn) date) unknown) (unknown) (no (unknown) (unknown) BUN (7-17) mg/dL (units (unknown) date) unknown) (unknown) (no (unknown) (unknown) BUN 12 (7-17) (units ( unknown) date) mg/dL unknown) (unknown) (no (unknown) (unknown) BUN/Creatinine (units (unknown) date) Ratio (6-22) unknown) (unknown) (no (unknown) (unknown) BUN/Creatinine (units (unknown) date) Ratio 16.7 (6-22) unknown) (unknown) (no (unknown) (unknown) Baso # (Auto) (units ( unknown) date) (0-100) /uL unknown) (unknown) (no (unknown) (unknown) Baso # (Auto) 0 (units (unknown) date) (0-100) /uL unknown) (unknown) (no (unknown) (unknown) Baso % (Auto) (units ( unknown) date) (0-2) % unknown) (unknown) (no (unknown) (unknown) Baso % (Auto) 0.3 (units (unknown) date) (0-2) % unknown) (unknown) (no (unknown) (unknown) Blood Pressure (units (unknown) date) 03/24/22 unknown) 18:50 (unknown) (no (unknown) (unknown) Blood Pressure (units (unknown) date) unknown) (unknown) (no (unknown) (unknown) CK-MB (CK-2) Rel (units (unknown) date) Index TNP unknown) (unknown) (no (unknown) (unknown) CK-MB (CK-2) Rel (units (unknown) date) Index unknown) (unknown) (no (unknown) (unknown) CK-MB (CK-2) TNP (units (unknown) date) unknown) (unknown) (no (unknown) (unknown) CK-MB (CK-2) (units (u nknown) date) unknown) (unknown) (no (unknown) (unknown) Calcium (8.4-10.2) (units (unknown) date) mg/dL unknown) (unknown) (no (unknown) (unknown) Calcium 8.5 (units (un known) date) (8.4-10.2) mg/dL unknown) (unknown) (no (unknown) (unknown) Carbon Dioxide (units (unknown) date) (22-32) mmol/L unknown) (unknown) (no (unknown) (unknown) Carbon Dioxide 24 (units (unknown) date) (22-32) mmol/L unknown) (unknown) (no (unknown) (unknown) Chief Complaint: (units (unknown) date) Headache unknown) (unknown) (no (unknown) (unknown) Chloride (98-107) (units (unknown) date) mmol/L unknown) (unknown) (no (unknown) (unknown) Chloride 103 (units (u nknown) date) (98-107) mmol/L unknown) (unknown) (no (unknown) (unknown) Complete Blood (units (unknown) date) Count AUTO DIFF unknown) Stat (unknown) (no (unknown) (unknown) Comprehensive (units ( unknown) date) Metabolic Panel unknown) Stat (unknown) (no (unknown) (unknown) Course (units (unkno wn) date) unknown) (unknown) (no (unknown) (unknown) Covid-19 + FLU A/B (units (unknown) date) + RSV - PCR Stat unknown) (unknown) (no (unknown) (unknown) Creatinine (units (unk nown) date) (0.52-1.04) mg/dL unknown) (unknown) (no (unknown) (unknown) Creatinine 0.72 (units (unknown) date) (0.52-1.04) mg/dL unknown) (unknown) (no (unknown) (unknown) : 1985 (units (unknown) date) Acct:[id number] unknown) (unknown) (no (unknown) (unknown) Date of Service: (units (unknown) date) 03/24/22 unknown) (unknown) (no (unknown) (unknown) Departure (units (unkn own) date) unknown) (unknown) (no (unknown) (unknown) Depression (units (unk nown) date) unknown) (unknown) (no (unknown) (unknown) Discharge Plan (units (unknown) date) unknown) (unknown) (no (unknown) (unknown) Discontinued (units (u nknown) date) Medications unknown) (unknown) (no (unknown) (unknown) Documented By: GC (units (unknown) date) unknown) (unknown) (no (unknown) (unknown) ED Orders (units (unkn own) date) unknown) (unknown) (no (unknown) (unknown) EKG-12 Lead Stat (units (unknown) date) unknown) (unknown) (no (unknown) (unknown) ER Physician: (units ( unknown) date) Danita Vila D.O. unknown) (unknown) (no (unknown) (unknown) Emergency Report (units (unknown) date) unknown) (unknown) (no (unknown) (unknown) Eos # (Auto) (units (u nknown) date) (0-450) /uL unknown) (unknown) (no (unknown) (unknown) Eos # (Auto) 0 (units (unknown) date) (0-450) /uL unknown) (unknown) (no (unknown) (unknown) Eos % (Auto) (2-4) (units (unknown) date) % unknown) (unknown) (no (unknown) (unknown) Eos % (Auto) 0.1 L (units (unknown) date) (2-4) % unknown) (unknown) (no (unknown) (unknown) Estimated GFR > 60 (units (unknown) date) (>60) mL/min unknown) (unknown) (no (unknown) (unknown) Estimated GFR (units ( unknown) date) (>60) mL/min unknown) (unknown) (no (unknown) (unknown) Exam (units (unkno wn) date) unknown) (unknown) (no (unknown) (unknown) General (units (unkno wn) date) unknown) (unknown) (no (unknown) (unknown) Globulin (1.7-4.1) (units (unknown) date) g/dL unknown) (unknown) (no (unknown) (unknown) Globulin 3.1 (units (u nknown) date) (1.7-4.1) g/dL unknown) (unknown) (no (unknown) (unknown) Glucose (70-100) (units (unknown) date) mg/dL unknown) (unknown) (no (unknown) (unknown) Glucose 147 H (units ( unknown) date) (70-100) mg/dL unknown) (unknown) (no (unknown) (unknown) H/O exploratory (units (unknown) date) laparotomy unknown) (unknown) (no (unknown) (unknown) H/O left knee (units ( unknown) date) surgery unknown) (unknown) (no (unknown) (unknown) HFA inhaler (units (un known) date) (Advair HFA) unknown) (unknown) (no (unknown) (unknown) HPI - Headache (units (unknown) date) unknown) (unknown) (no (unknown) (unknown) Hct (36-46) % (units ( unknown) date) unknown) (unknown) (no (unknown) (unknown) Hct 35.7 L (36-46) (units (unknown) date) % unknown) (unknown) (no (unknown) (unknown) Hgb (12.0-16.0) (units (unknown) date) g/dL unknown) (unknown) (no (unknown) (unknown) Hgb 12.1 (units (unkno wn) date) (12.0-16.0) g/dL unknown) (unknown) (no (unknown) (unknown) History of open (units (unknown) date) heart surgery unknown) (unknown) (no (unknown) (unknown) History of surgery (units (unknown) date) unknown) (unknown) (no (unknown) (unknown) INR (0.9-1.3) (units ( unknown) date) unknown) (unknown) (no (unknown) (unknown) INR 1.0 (0.9-1.3) (units (unknown) date) unknown) (unknown) (no (unknown) (unknown) Influenza A (units (un known) date) (RT-PCR) (NEGATIVE) unknown) (unknown) (no (unknown) (unknown) Influenza A (units (un known) date) (RT-PCR) Flu a unknown) negative (NEGATIVE) (unknown) (no (unknown) (unknown) Influenza B (units (un known) date) (RT-PCR) (NEGATIVE) unknown) (unknown) (no (unknown) (unknown) Influenza B (units (un known) date) (RT-PCR) Flu b unknown) negative (NEGATIVE) (unknown) (no (unknown) (unknown) Initial Vital (units ( unknown) date) Signs unknown) (unknown) (no (unknown) (unknown) Initial Vital (units ( unknown) date) Signs: unknown) (unknown) (no (unknown) (unknown) [facility] (units (unknown) date) [address] unknown) [place] [address] (unknown) (no (unknown) (unknown) Lab Data (units (unkno wn) date) unknown) (unknown) (no (unknown) (unknown) Lab Results (units (un known) date) unknown) (unknown) (no (unknown) (unknown) Labs: (units (unkno wn) date) unknown) (unknown) (no (unknown) (unknown) Lactate (0.7-2.1) (units (unknown) date) mmol/L unknown) (unknown) (no (unknown) (unknown) Lactate (Lactic (units (unknown) date) Acid) Stat unknown) (unknown) (no (unknown) (unknown) Lactate 1.5 (units (un known) date) (0.7-2.1) mmol/L unknown) (unknown) (no (unknown) (unknown) Last Admin: (units (un known) date) 03/24/22 19:52 unknown) Dose: 1,000 mls/hr (unknown) (no (unknown) (unknown) Last Admin: (units (un known) date) 03/24/22 19:52 unknown) Dose: 975 mg (unknown) (no (unknown) (unknown) Lipase (23-300) (units (unknown) date) U/L unknown) (unknown) (no (unknown) (unknown) Lipase 341 H (units (u nknown) date) (23-300) U/L unknown) (unknown) (no (unknown) (unknown) Lipase Stat (units (un known) date) unknown) (unknown) (no (unknown) (unknown) Lymph # (Auto) (units (unknown) date) (3537-3801) /uL unknown) (unknown) (no (unknown) (unknown) Lymph # (Auto) 500 (units (unknown) date) L (8235-3683) /uL unknown) (unknown) (no (unknown) (unknown) Lymph % (Auto) (units (unknown) date) (25-40) % unknown) (unknown) (no (unknown) (unknown) Lymph % (Auto) 7.4 (units (unknown) date) L (25-40) % unknown) (unknown) (no (unknown) (unknown) [id number] (units (unk nown) date) unknown) (unknown) (no (unknown) (unknown) MCH (26-34) PG (units (unknown) date) unknown) (unknown) (no (unknown) (unknown) MCH 30.6 (26-34) (units (unknown) date) PG unknown) (unknown) (no (unknown) (unknown) MCHC (30-36) % (units (unknown) date) unknown) (unknown) (no (unknown) (unknown) MCHC 34.0 (30-36) (units (unknown) date) % unknown) (unknown) (no (unknown) (unknown) MCV (80-100) fL (units (unknown) date) unknown) (unknown) (no (unknown) (unknown) MCV 90.1 (80-100) (units (unknown) date) fL unknown) (unknown) (no (unknown) (unknown) MDM - Headache (units (unknown) date) unknown) (unknown) (no (unknown) (unknown) Magnesium (units (unkn own) date) (1.6-2.3) mg/dL unknown) (unknown) (no (unknown) (unknown) Magnesium 1.8 (units ( unknown) date) (1.6-2.3) mg/dL unknown) (unknown) (no (unknown) (unknown) Magnesium Stat (units (unknown) date) unknown) (unknown) (no (unknown) (unknown) Medical History (units (unknown) date) (Updated 03/20/22 @ unknown) 00:00 by ) (unknown) (no (unknown) (unknown) Medication (units (unk nown) date) Instructions unknown) Recorded (unknown) (no (unknown) (unknown) Mild persistent (units (unknown) date) asthma unknown) (unknown) (no (unknown) (unknown) Mode of arrival: (units (unknown) date) Ambulatory unknown) (unknown) (no (unknown) (unknown) [place] # (Auto) (units ( unknown) date) (0-900) /uL unknown) (unknown) (no (unknown) (unknown) [place] # (Auto) 400 (units (unknown) date) (0-900) /uL unknown) (unknown) (no (unknown) (unknown) [place] % (Auto) (units ( unknown) date) (3-14) % unknown) (unknown) (no (unknown) (unknown) [place] % (Auto) 6.1 (units (unknown) date) (3-14) % unknown) (unknown) (no (unknown) (unknown) Neut # (Auto) (units ( unknown) date) (9903-6884) /uL unknown) (unknown) (no (unknown) (unknown) Neut # (Auto) 6200 (units (unknown) date) (9420-6141) /uL unknown) (unknown) (no (unknown) (unknown) Neut % (Auto) (units ( unknown) date) (50-75) % unknown) (unknown) (no (unknown) (unknown) Neut % (Auto) 86.1 (units (unknown) date) H (50-75) % unknown) (unknown) (no (unknown) (unknown) No Action (units (unkn own) date) unknown) (unknown) (no (unknown) (unknown) Ordered: (units (unkno wn) date) unknown) (unknown) (no (unknown) (unknown) Orders (units (unkno wn) date) unknown) (unknown) (no (unknown) (unknown) Oxygen Delivery (units (unknown) date) Method 03/24/22 unknown) 18:50 (unknown) (no (unknown) (unknown) Oxygen Delivery (units (unknown) date) Method Room Air unknown) (unknown) (no (unknown) (unknown) PT (10.1-12.7) (units (unknown) date) SECONDS unknown) (unknown) (no (unknown) (unknown) PT 11.8 (units (unkno wn) date) (10.1-12.7) SECONDS unknown) (unknown) (no (unknown) (unknown) Partial (units (unkno wn) date) Thromboplastin Time unknown) Stat (unknown) (no (unknown) (unknown) Patient History (units (unknown) date) unknown) (unknown) (no (unknown) (unknown) Patient: (units (unkno wn) date) Carmina Castillo unknown) MR#: (unknown) (no (unknown) (unknown) Penicillins (units (un known) date) Allergy unknown) Intermediate Rash Verified 03/24/22 18:50 (unknown) (no (unknown) (unknown) Pertussis Vaccines (units (unknown) date) Allergy Unknown unknown) Seizure Verified 03/24/22 18:50 (unknown) (no (unknown) (unknown) Plt Count (units (unkn own) date) (150-400) X103/uL unknown) (unknown) (no (unknown) (unknown) Plt Count 232 (units ( unknown) date) (150-400) X103/uL unknown) (unknown) (no (unknown) (unknown) Potassium (units (unkn own) date) (3.4-5.1) mmol/L unknown) (unknown) (no (unknown) (unknown) Potassium 3.2 L (units (unknown) date) (3.4-5.1) mmol/L unknown) (unknown) (no (unknown) (unknown) Prescriptions: (units (unknown) date) unknown) (unknown) (no (unknown) (unknown) Previous Rx's (units ( unknown) date) unknown) (unknown) (no (unknown) (unknown) Procalcitonin (units ( unknown) date) (<0.5) ng/mL unknown) (unknown) (no (unknown) (unknown) Procalcitonin 0.14 (units (unknown) date) (<0.5) ng/mL unknown) (unknown) (no (unknown) (unknown) Procalcitonin Stat (units (unknown) date) unknown) (unknown) (no (unknown) (unknown) Prothrombin Time (units (unknown) date) INR Stat unknown) (unknown) (no (unknown) (unknown) Pulse Oximetry 97 (units (unknown) date) 03/24/22 18:50 unknown) (unknown) (no (unknown) (unknown) Pulse Oximetry 97 (units (unknown) date) unknown) (unknown) (no (unknown) (unknown) Pulse Rate 70 (units ( unknown) date) 03/24/22 18:50 unknown) (unknown) (no (unknown) (unknown) Pulse Rate 70 (units ( unknown) date) unknown) (unknown) (no (unknown) (unknown) RBC (4.0-5.2) (units ( unknown) date) X106/uL unknown) (unknown) (no (unknown) (unknown) RBC 3.96 L (units (unk nown) date) (4.0-5.2) X106/uL unknown) (unknown) (no (unknown) (unknown) RDW (11.6-14.8) % (units (unknown) date) unknown) (unknown) (no (unknown) (unknown) RDW 12.2 (units (unkno wn) date) (11.6-14.8) % unknown) (unknown) (no (unknown) (unknown) RSV (PCR) (units (unkn own) date) (Negative) unknown) (unknown) (no (unknown) (unknown) RSV (PCR) Negative (units (unknown) date) (Negative) unknown) (unknown) (no (unknown) (unknown) Referrals: (units (unk nown) date) unknown) (unknown) (no (unknown) (unknown) Related Data (units (u nknown) date) unknown) (unknown) (no (unknown) (unknown) Respiratory Rate (units (unknown) date) 20 03/24/22 18:50 unknown) (unknown) (no (unknown) (unknown) Respiratory Rate (units (unknown) date) 20 unknown) (unknown) (no (unknown) (unknown) Wes Herrera ARNP (units (unknown) date) [Primary Care unknown) Provider] (unknown) (no (unknown) (unknown) S/P laparoscopic (units (unknown) date) supracervical unknown) hysterectomy (04/04/18) (unknown) (no (unknown) (unknown) SARS-CoV-2 (PCR) (units (unknown) date) (Negative) unknown) (unknown) (no (unknown) (unknown) SARS-CoV-2 (PCR) (units (unknown) date) Negative (Negative) unknown) (unknown) (no (unknown) (unknown) Signed By: (units (unk nown) date) unknown) (unknown) (no (unknown) (unknown) Smoking Status: (units (unknown) date) Former smoker unknown) (unknown) (no (unknown) (unknown) Social History (units (unknown) date) (Reviewed 03/05/22 unknown) @ 11:22 by Danita Vila DO) (unknown) (no (unknown) (unknown) Sodium (137-145) (units (unknown) date) mmol/L unknown) (unknown) (no (unknown) (unknown) Sodium 138 (units (unk nown) date) (137-145) mmol/L unknown) (unknown) (no (unknown) (unknown) Sodium Chloride (units (unknown) date) (Normal Saline unknown) 0.9%) 1,000 mls @ 1,000 mls/hr IV BOLUS ONE (unknown) (no (unknown) (unknown) Stated Complaint: (units (unknown) date) headache, back unknown) pain, L sided chest pain, body pain (unknown) (no (unknown) (unknown) Stop: 03/24/22 (units (unknown) date) 19:21 unknown) (unknown) (no (unknown) (unknown) Stop: 03/24/22 (units (unknown) date) 20:16 unknown) (unknown) (no (unknown) (unknown) Substance Use (units ( unknown) date) Type: marijuana unknown) (unknown) (no (unknown) (unknown) Surgical History (units (unknown) date) (Reviewed 03/18/22 unknown) @ 11:21 by TYLER Mckeon) (unknown) (no (unknown) (unknown) Temperature 98.4 F (units (unknown) date) 03/24/22 18:50 unknown) (unknown) (no (unknown) (unknown) Temperature 98.4 F (units (unknown) date) unknown) (unknown) (no (unknown) (unknown) Time Seen by (units (u nknown) date) Provider: 03/24/22 unknown) 19:17 (unknown) (no (unknown) (unknown) Total Bilirubin (units (unknown) date) (0.2-1.3) mg/dL unknown) (unknown) (no (unknown) (unknown) Total Bilirubin (units (unknown) date) 0.5 (0.2-1.3) mg/dL unknown) (unknown) (no (unknown) (unknown) Total Creatine (units (unknown) date) Kinase (30-135) U/L unknown) (unknown) (no (unknown) (unknown) Total Creatine (units (unknown) date) Kinase 91 (30-135) unknown) U/L (unknown) (no (unknown) (unknown) Total Protein (units ( unknown) date) (6.3-8.2) g/dL unknown) (unknown) (no (unknown) (unknown) Total Protein 7.4 (units (unknown) date) (6.3-8.2) g/dL unknown) (unknown) (no (unknown) (unknown) Troponin + CK (units ( unknown) date) Cardiac Panel Stat unknown) (unknown) (no (unknown) (unknown) Troponin I (units (unk nown) date) (0.01-0.034) ng/mL unknown) (unknown) (no (unknown) (unknown) Troponin I 0.016 (units (unknown) date) (0.01-0.034) ng/mL unknown) (unknown) (no (unknown) (unknown) Upset (units (unkno wn) date) unknown) (unknown) (no (unknown) (unknown) Vital Signs - 8 hr (units (unknown) date) unknown) (unknown) (no (unknown) (unknown) Vital Signs (units (un known) date) unknown) (unknown) (no (unknown) (unknown) Vital signs: (units (u nknown) date) unknown) (unknown) (no (unknown) (unknown) WBC (4.5-11.0) (units (unknown) date) X103/uL unknown) (unknown) (no (unknown) (unknown) WBC 7.2 (4.5-11.0) (units (unknown) date) X103/uL unknown) (unknown) (no (unknown) (unknown) XR chest 1V Stat (units (unknown) date) unknown) (unknown) (no (unknown) (unknown) [Embedded Image (units (unknown) date) Not Available] unknown) (unknown) (no (unknown) (unknown) [PERTUSSIS (units (unk nown) date) VACCINES] unknown) (unknown) (no (unknown) (unknown) aerosol inhaler (units (unknown) date) (ProAir HFA) unknown) Ventilation #8.5 grams (unknown) (no (unknown) (unknown) albuterol sulfate (units (unknown) date) 90 mcg/actuation 1 unknown) puff inhalation Q6H PRN Adequate 03/08/22 (unknown) (no (unknown) (unknown) albuterol sulfate (units (unknown) date) [ProAir HFA] 90 unknown) mcg/actuation HFA aerosol inhaler (unknown) (no (unknown) (unknown) alcohol intake (units (unknown) date) frequency: 0-2 unknown) drinks per day (unknown) (no (unknown) (unknown) amoxicillin (units (un known) date) Allergy unknown) Intermediate Rash, Verified 03/24/22 18:50 (unknown) (no (unknown) (unknown) azithromycin (units (u nknown) date) Allergy unknown) Intermediate Gastrointestinal Verified 03/24/22 18:50 (unknown) (no (unknown) (unknown) ciprofloxacin (units ( unknown) date) Allergy unknown) Intermediate Gastrointestinal Verified 03/24/22 18:50 (unknown) (no (unknown) (unknown) fluticasone (units (un known) date) propionate 230 2 unknown) puff inhalation BID #12 grams 03/13/22 (unknown) (no (unknown) (unknown) gluten AdvReac (units (unknown) date) Mild Stomach unknown) Verified 03/24/22 18:50 (unknown) (no (unknown) (unknown) headache (units (unkno wn) date) unknown) (unknown) (no (unknown) (unknown) household members: (units (unknown) date) spouse and children unknown) (unknown) (no (unknown) (unknown) hydrocodone 5 (units ( unknown) date) mg-acetaminophen unknown) 325 1 tab PO Q6H PRN pain #10 tabs 03/05/22 (unknown) (no (unknown) (unknown) hydrocodone-acetam (units (unknown) date) inophen 5-325 mg unknown) tablet (unknown) (no (unknown) (unknown) hydromorphone (units ( unknown) date) Allergy Mild unknown) Flushing Verified 03/24/22 18:50 (unknown) (no (unknown) (unknown) ibuprofen Allergy (units (unknown) date) Mild Kidney unknown) Verified 03/24/22 18:50 (unknown) (no (unknown) (unknown) infection (units (unkn own) date) unknown) (unknown) (no (unknown) (unknown) mcg-salmeterol 21 (units (unknown) date) mcg/actuation unknown) (unknown) (no (unknown) (unknown) mg tablet (units (unkn own) date) unknown) (unknown) (no (unknown) (unknown) nausea, (units (unkno wn) date) unknown) (unknown) (no (unknown) (unknown) nickel AdvReac (units (unknown) date) Mild Irritation/ unknown) Verified 03/24/22 18:50 (unknown) (no (unknown) (unknown) ondansetron 4 mg (units (unknown) date) disintegrating 4 mg unknown) PO QID PRN nausea and 04/05/18 (unknown) (no (unknown) (unknown) ondansetron 4 mg (units (unknown) date) tablet,disintegrati unknown) ng (unknown) (no (unknown) (unknown) pain, (units (unkno wn) date) unknown) (unknown) (no (unknown) (unknown) redness (units (unkno wn) date) unknown) (unknown) (no (unknown) (unknown) tablet vomiting (units (unknown) date) #14 tabs unknown) (unknown) (no (unknown) (unknown) throat was (units (unk nown) date) unknown) (unknown) (no (unknown) (unknown) tingly (units (unkno wn) date) unknown) Result panel 605 (unknown) (no (unknown) (unknown) (no value) (units (unk nown) date) unknown) (unknown) (no (unknown) (unknown) 03/24/22 03/24/22 (units (unknown) date) 03/24/22 unknown) Range/Units (unknown) (no (unknown) (unknown) 03/24/22 19:09 (units (unknown) date) unknown) (unknown) (no (unknown) (unknown) 03/24/22 19:16 (units (unknown) date) unknown) (unknown) (no (unknown) (unknown) 03/24/22 19:40 (units (unknown) date) unknown) (unknown) (no (unknown) (unknown) 03/24/22 (units (unkno wn) date) unknown) (unknown) (no (unknown) (unknown) 1 puff INHALATION (units (unknown) date) Q6H PRN (Reason: unknown) Adequate Ventilation) Qty: 8.5 0RF (unknown) (no (unknown) (unknown) 1 tab PO Q6H PRN (units (unknown) date) (Reason: pain) Qty: unknown) 10 0RF (unknown) (no (unknown) (unknown) 18:50 03/24/22 (units (unknown) date) unknown) (unknown) (no (unknown) (unknown) 19:09 19:40 19:40 (units (unknown) date) unknown) (unknown) (no (unknown) (unknown) 19:40 19:40 19:40 (units (unknown) date) unknown) (unknown) (no (unknown) (unknown) 19:45 (units (unkno wn) date) unknown) (unknown) (no (unknown) (unknown) 2 puff inhalation (units (unknown) date) BID Qty: 12 2RF unknown) (unknown) (no (unknown) (unknown) 4 mg PO QID PRN (units (unknown) date) (Reason: nausea and unknown) vomiting) Qty: 14 2RF (unknown) (no (unknown) (unknown) ALT (<35) IU/L (units (unknown) date) unknown) (unknown) (no (unknown) (unknown) ALT 22 (<35) IU/L (units (unknown) date) unknown) (unknown) (no (unknown) (unknown) APTT (26-36) (units (u nknown) date) SECONDS unknown) (unknown) (no (unknown) (unknown) APTT 27 (26-36) (units (unknown) date) SECONDS unknown) (unknown) (no (unknown) (unknown) AST (14-36) IU/L (units (unknown) date) unknown) (unknown) (no (unknown) (unknown) AST 28 (14-36) (units (unknown) date) IU/L unknown) (unknown) (no (unknown) (unknown) Acetaminophen (units ( unknown) date) (Acetaminophen 325 unknown) Mg Tablet) 975 mg PO NOW ONE (unknown) (no (unknown) (unknown) Advair HFA 230-21 (units (unknown) date) mcg/actuation HFA unknown) aerosol inhaler (unknown) (no (unknown) (unknown) Age/Sex: 36 / F (units (unknown) date) unknown) (unknown) (no (unknown) (unknown) Albumin (3.5-5.0) (units (unknown) date) g/dL unknown) (unknown) (no (unknown) (unknown) Albumin 4.3 (units (un known) date) (3.5-5.0) g/dL unknown) (unknown) (no (unknown) (unknown) Albumin/Globulin (units (unknown) date) Ratio (1.0-2.8) unknown) (unknown) (no (unknown) (unknown) Albumin/Globulin (units (unknown) date) Ratio 1.4 (1.0-2.8) unknown) (unknown) (no (unknown) (unknown) Alkaline (units (unkno wn) date) Phosphatase unknown) (38-126) U/L (unknown) (no (unknown) (unknown) Alkaline (units (unkno wn) date) Phosphatase 46 unknown) (38-126) U/L (unknown) (no (unknown) (unknown) Allergies (units (unkn own) date) unknown) (unknown) (no (unknown) (unknown) Allergy/AdvReac (units (unknown) date) Type Severity unknown) Reaction Status Date / Time (unknown) (no (unknown) (unknown) Anxiety (units (unkno wn) date) unknown) (unknown) (no (unknown) (unknown) Asthma (units (unkno wn) date) unknown) (unknown) (no (unknown) (unknown) BUN (7-17) mg/dL (units (unknown) date) unknown) (unknown) (no (unknown) (unknown) BUN 12 (7-17) (units ( unknown) date) mg/dL unknown) (unknown) (no (unknown) (unknown) BUN/Creatinine (units (unknown) date) Ratio (6-22) unknown) (unknown) (no (unknown) (unknown) BUN/Creatinine (units (unknown) date) Ratio 16.7 (6-22) unknown) (unknown) (no (unknown) (unknown) Baso # (Auto) (units ( unknown) date) (0-100) /uL unknown) (unknown) (no (unknown) (unknown) Baso # (Auto) 0 (units (unknown) date) (0-100) /uL unknown) (unknown) (no (unknown) (unknown) Baso % (Auto) (units ( unknown) date) (0-2) % unknown) (unknown) (no (unknown) (unknown) Baso % (Auto) 0.3 (units (unknown) date) (0-2) % unknown) (unknown) (no (unknown) (unknown) Blood Pressure (units (unknown) date) 03/24/22 unknown) 18:50 (unknown) (no (unknown) (unknown) Blood Pressure (units (unknown) date) 118/73 unknown) (unknown) (no (unknown) (unknown) CK-MB (CK-2) Rel (units (unknown) date) Index TNP unknown) (unknown) (no (unknown) (unknown) CK-MB (CK-2) Rel (units (unknown) date) Index unknown) (unknown) (no (unknown) (unknown) CK-MB (CK-2) TNP (units (unknown) date) unknown) (unknown) (no (unknown) (unknown) CK-MB (CK-2) (units (u nknown) date) unknown) (unknown) (no (unknown) (unknown) Calcium (8.4-10.2) (units (unknown) date) mg/dL unknown) (unknown) (no (unknown) (unknown) Calcium 8.5 (units (un known) date) (8.4-10.2) mg/dL unknown) (unknown) (no (unknown) (unknown) Carbon Dioxide (units (unknown) date) (22-32) mmol/L unknown) (unknown) (no (unknown) (unknown) Carbon Dioxide 24 (units (unknown) date) (22-32) mmol/L unknown) (unknown) (no (unknown) (unknown) Chief Complaint: (units (unknown) date) Headache unknown) (unknown) (no (unknown) (unknown) Chloride (98-107) (units (unknown) date) mmol/L unknown) (unknown) (no (unknown) (unknown) Chloride 103 (units (u nknown) date) (98-107) mmol/L unknown) (unknown) (no (unknown) (unknown) Complete Blood (units (unknown) date) Count AUTO DIFF unknown) Stat (unknown) (no (unknown) (unknown) Comprehensive (units ( unknown) date) Metabolic Panel unknown) Stat (unknown) (no (unknown) (unknown) Course (units (unkno wn) date) unknown) (unknown) (no (unknown) (unknown) Covid-19 + FLU A/B (units (unknown) date) + RSV - PCR Stat unknown) (unknown) (no (unknown) (unknown) Creatinine (units (unk nown) date) (0.52-1.04) mg/dL unknown) (unknown) (no (unknown) (unknown) Creatinine 0.72 (units (unknown) date) (0.52-1.04) mg/dL unknown) (unknown) (no (unknown) (unknown) : 1985 (units (unknown) date) Acct:[id number] unknown) (unknown) (no (unknown) (unknown) Date of Service: (units (unknown) date) 03/24/22 unknown) (unknown) (no (unknown) (unknown) Departure (units (unkn own) date) unknown) (unknown) (no (unknown) (unknown) Depression (units (unk nown) date) unknown) (unknown) (no (unknown) (unknown) Discharge Plan (units (unknown) date) unknown) (unknown) (no (unknown) (unknown) Discontinued (units (u nknown) date) Medications unknown) (unknown) (no (unknown) (unknown) Documented By: GC (units (unknown) date) unknown) (unknown) (no (unknown) (unknown) ED Orders (units (unkn own) date) unknown) (unknown) (no (unknown) (unknown) EKG-12 Lead Stat (units (unknown) date) unknown) (unknown) (no (unknown) (unknown) ER Physician: (units ( unknown) date) Danita Vila D.O. unknown) (unknown) (no (unknown) (unknown) Emergency Report (units (unknown) date) unknown) (unknown) (no (unknown) (unknown) Eos # (Auto) (units (u nknown) date) (0-450) /uL unknown) (unknown) (no (unknown) (unknown) Eos # (Auto) 0 (units (unknown) date) (0-450) /uL unknown) (unknown) (no (unknown) (unknown) Eos % (Auto) (2-4) (units (unknown) date) % unknown) (unknown) (no (unknown) (unknown) Eos % (Auto) 0.1 L (units (unknown) date) (2-4) % unknown) (unknown) (no (unknown) (unknown) Estimated GFR > 60 (units (unknown) date) (>60) mL/min unknown) (unknown) (no (unknown) (unknown) Estimated GFR (units ( unknown) date) (>60) mL/min unknown) (unknown) (no (unknown) (unknown) Exam (units (unkno wn) date) unknown) (unknown) (no (unknown) (unknown) General (units (unkno wn) date) unknown) (unknown) (no (unknown) (unknown) Globulin (1.7-4.1) (units (unknown) date) g/dL unknown) (unknown) (no (unknown) (unknown) Globulin 3.1 (units (u nknown) date) (1.7-4.1) g/dL unknown) (unknown) (no (unknown) (unknown) Glucose (70-100) (units (unknown) date) mg/dL unknown) (unknown) (no (unknown) (unknown) Glucose 147 H (units ( unknown) date) (70-100) mg/dL unknown) (unknown) (no (unknown) (unknown) H/O exploratory (units (unknown) date) laparotomy unknown) (unknown) (no (unknown) (unknown) H/O left knee (units ( unknown) date) surgery unknown) (unknown) (no (unknown) (unknown) HFA inhaler (units (un known) date) (Advair HFA) unknown) (unknown) (no (unknown) (unknown) HPI - Headache (units (unknown) date) unknown) (unknown) (no (unknown) (unknown) Hct (36-46) % (units ( unknown) date) unknown) (unknown) (no (unknown) (unknown) Hct 35.7 L (36-46) (units (unknown) date) % unknown) (unknown) (no (unknown) (unknown) Hgb (12.0-16.0) (units (unknown) date) g/dL unknown) (unknown) (no (unknown) (unknown) Hgb 12.1 (units (unkno wn) date) (12.0-16.0) g/dL unknown) (unknown) (no (unknown) (unknown) History of open (units (unknown) date) heart surgery unknown) (unknown) (no (unknown) (unknown) History of surgery (units (unknown) date) unknown) (unknown) (no (unknown) (unknown) INR (0.9-1.3) (units ( unknown) date) unknown) (unknown) (no (unknown) (unknown) INR 1.0 (0.9-1.3) (units (unknown) date) unknown) (unknown) (no (unknown) (unknown) Influenza A (units (un known) date) (RT-PCR) (NEGATIVE) unknown) (unknown) (no (unknown) (unknown) Influenza A (units (un known) date) (RT-PCR) Flu a unknown) negative (NEGATIVE) (unknown) (no (unknown) (unknown) Influenza B (units (un known) date) (RT-PCR) (NEGATIVE) unknown) (unknown) (no (unknown) (unknown) Influenza B (units (un known) date) (RT-PCR) Flu b unknown) negative (NEGATIVE) (unknown) (no (unknown) (unknown) Initial Vital (units ( unknown) date) Signs unknown) (unknown) (no (unknown) (unknown) Initial Vital (units ( unknown) date) Signs: unknown) (unknown) (no (unknown) (unknown) [facility] (units (unknown) date) [address] unknown) [place] [address] (unknown) (no (unknown) (unknown) Lab Data (units (unkno wn) date) unknown) (unknown) (no (unknown) (unknown) Lab Results (units (un known) date) unknown) (unknown) (no (unknown) (unknown) Labs: (units (unkno wn) date) unknown) (unknown) (no (unknown) (unknown) Lactate (0.7-2.1) (units (unknown) date) mmol/L unknown) (unknown) (no (unknown) (unknown) Lactate (Lactic (units (unknown) date) Acid) Stat unknown) (unknown) (no (unknown) (unknown) Lactate 1.5 (units (un known) date) (0.7-2.1) mmol/L unknown) (unknown) (no (unknown) (unknown) Last Admin: (units (un known) date) 03/24/22 19:52 unknown) Dose: 1,000 mls/hr (unknown) (no (unknown) (unknown) Last Admin: (units (un known) date) 03/24/22 19:52 unknown) Dose: 975 mg (unknown) (no (unknown) (unknown) Lipase (23-300) (units (unknown) date) U/L unknown) (unknown) (no (unknown) (unknown) Lipase 341 H (units (u nknown) date) (23-300) U/L unknown) (unknown) (no (unknown) (unknown) Lipase Stat (units (un known) date) unknown) (unknown) (no (unknown) (unknown) Lymph # (Auto) (units (unknown) date) (2019-1055) /uL unknown) (unknown) (no (unknown) (unknown) Lymph # (Auto) 500 (units (unknown) date) L (1044-0185) /uL unknown) (unknown) (no (unknown) (unknown) Lymph % (Auto) (units (unknown) date) (25-40) % unknown) (unknown) (no (unknown) (unknown) Lymph % (Auto) 7.4 (units (unknown) date) L (25-40) % unknown) (unknown) (no (unknown) (unknown) [id number] (units (unk nown) date) unknown) (unknown) (no (unknown) (unknown) MCH (26-34) PG (units (unknown) date) unknown) (unknown) (no (unknown) (unknown) MCH 30.6 (26-34) (units (unknown) date) PG unknown) (unknown) (no (unknown) (unknown) MCHC (30-36) % (units (unknown) date) unknown) (unknown) (no (unknown) (unknown) MCHC 34.0 (30-36) (units (unknown) date) % unknown) (unknown) (no (unknown) (unknown) MCV (80-100) fL (units (unknown) date) unknown) (unknown) (no (unknown) (unknown) MCV 90.1 (80-100) (units (unknown) date) fL unknown) (unknown) (no (unknown) (unknown) MDM - Headache (units (unknown) date) unknown) (unknown) (no (unknown) (unknown) Magnesium (units (unkn own) date) (1.6-2.3) mg/dL unknown) (unknown) (no (unknown) (unknown) Magnesium 1.8 (units ( unknown) date) (1.6-2.3) mg/dL unknown) (unknown) (no (unknown) (unknown) Magnesium Stat (units (unknown) date) unknown) (unknown) (no (unknown) (unknown) Medical History (units (unknown) date) (Updated 03/20/22 @ unknown) 00:00 by ) (unknown) (no (unknown) (unknown) Medication (units (unk nown) date) Instructions unknown) Recorded (unknown) (no (unknown) (unknown) Mild persistent (units (unknown) date) asthma unknown) (unknown) (no (unknown) (unknown) Mode of arrival: (units (unknown) date) Ambulatory unknown) (unknown) (no (unknown) (unknown) [place] # (Auto) (units ( unknown) date) (0-900) /uL unknown) (unknown) (no (unknown) (unknown) [place] # (Auto) 400 (units (unknown) date) (0-900) /uL unknown) (unknown) (no (unknown) (unknown) [place] % (Auto) (units ( unknown) date) (3-14) % unknown) (unknown) (no (unknown) (unknown) [place]ran % (Auto) 6.1 (units (unknown) date) (3-14) % unknown) (unknown) (no (unknown) (unknown) Neut # (Auto) (units ( unknown) date) (9268-4658) /uL unknown) (unknown) (no (unknown) (unknown) Neut # (Auto) 6200 (units (unknown) date) (0500-0487) /uL unknown) (unknown) (no (unknown) (unknown) Neut % (Auto) (units ( unknown) date) (50-75) % unknown) (unknown) (no (unknown) (unknown) Neut % (Auto) 86.1 (units (unknown) date) H (50-75) % unknown) (unknown) (no (unknown) (unknown) No Action (units (unkn own) date) unknown) (unknown) (no (unknown) (unknown) Ordered: (units (unkno wn) date) unknown) (unknown) (no (unknown) (unknown) Orders (units (unkno wn) date) unknown) (unknown) (no (unknown) (unknown) Oxygen Delivery (units (unknown) date) Method 03/24/22 unknown) 18:50 (unknown) (no (unknown) (unknown) Oxygen Delivery (units (unknown) date) Method Room Air unknown) Room Air (unknown) (no (unknown) (unknown) PT (10.1-12.7) (units (unknown) date) SECONDS unknown) (unknown) (no (unknown) (unknown) PT 11.8 (units (unkno wn) date) (10.1-12.7) SECONDS unknown) (unknown) (no (unknown) (unknown) Partial (units (unkno wn) date) Thromboplastin Time unknown) Stat (unknown) (no (unknown) (unknown) Patient History (units (unknown) date) unknown) (unknown) (no (unknown) (unknown) Patient: (units (unkno wn) date) Carmina Castillo unknown) MR#: (unknown) (no (unknown) (unknown) Penicillins (units (un known) date) Allergy unknown) Intermediate Rash Verified 03/24/22 18:50 (unknown) (no (unknown) (unknown) Pertussis Vaccines (units (unknown) date) Allergy Unknown unknown) Seizure Verified 03/24/22 18:50 (unknown) (no (unknown) (unknown) Plt Count (units (unkn own) date) (150-400) X103/uL unknown) (unknown) (no (unknown) (unknown) Plt Count 232 (units ( unknown) date) (150-400) X103/uL unknown) (unknown) (no (unknown) (unknown) Potassium (units (unkn own) date) (3.4-5.1) mmol/L unknown) (unknown) (no (unknown) (unknown) Potassium 3.2 L (units (unknown) date) (3.4-5.1) mmol/L unknown) (unknown) (no (unknown) (unknown) Prescriptions: (units (unknown) date) unknown) (unknown) (no (unknown) (unknown) Previous Rx's (units ( unknown) date) unknown) (unknown) (no (unknown) (unknown) Procalcitonin (units ( unknown) date) (<0.5) ng/mL unknown) (unknown) (no (unknown) (unknown) Procalcitonin 0.14 (units (unknown) date) (<0.5) ng/mL unknown) (unknown) (no (unknown) (unknown) Procalcitonin Stat (units (unknown) date) unknown) (unknown) (no (unknown) (unknown) Prothrombin Time (units (unknown) date) INR Stat unknown) (unknown) (no (unknown) (unknown) Pulse Oximetry 97 (units (unknown) date) 03/24/22 18:50 unknown) (unknown) (no (unknown) (unknown) Pulse Oximetry 97 (units (unknown) date) 99 unknown) (unknown) (no (unknown) (unknown) Pulse Rate 70 (units ( unknown) date) 03/24/22 18:50 unknown) (unknown) (no (unknown) (unknown) Pulse Rate 70 78 (units (unknown) date) unknown) (unknown) (no (unknown) (unknown) RBC (4.0-5.2) (units ( unknown) date) X106/uL unknown) (unknown) (no (unknown) (unknown) RBC 3.96 L (units (unk nown) date) (4.0-5.2) X106/uL unknown) (unknown) (no (unknown) (unknown) RDW (11.6-14.8) % (units (unknown) date) unknown) (unknown) (no (unknown) (unknown) RDW 12.2 (units (unkno wn) date) (11.6-14.8) % unknown) (unknown) (no (unknown) (unknown) RSV (PCR) (units (unkn own) date) (Negative) unknown) (unknown) (no (unknown) (unknown) RSV (PCR) Negative (units (unknown) date) (Negative) unknown) (unknown) (no (unknown) (unknown) Referrals: (units (unk nown) date) unknown) (unknown) (no (unknown) (unknown) Related Data (units (u nknown) date) unknown) (unknown) (no (unknown) (unknown) Respiratory Rate (units (unknown) date) 20 03/24/22 18:50 unknown) (unknown) (no (unknown) (unknown) Respiratory Rate (units (unknown) date) 20 19 unknown) (unknown) (no (unknown) (unknown) Wes Herrera ARNP (units (unknown) date) [Primary Care unknown) Provider] (unknown) (no (unknown) (unknown) S/P laparoscopic (units (unknown) date) supracervical unknown) hysterectomy (04/04/18) (unknown) (no (unknown) (unknown) SARS-CoV-2 (PCR) (units (unknown) date) (Negative) unknown) (unknown) (no (unknown) (unknown) SARS-CoV-2 (PCR) (units (unknown) date) Negative (Negative) unknown) (unknown) (no (unknown) (unknown) Signed By: (units (unk nown) date) unknown) (unknown) (no (unknown) (unknown) Smoking Status: (units (unknown) date) Former smoker unknown) (unknown) (no (unknown) (unknown) Social History (units (unknown) date) (Reviewed 03/05/22 unknown) @ 11:22 by Danita Vila DO) (unknown) (no (unknown) (unknown) Sodium (137-145) (units (unknown) date) mmol/L unknown) (unknown) (no (unknown) (unknown) Sodium 138 (units (unk nown) date) (137-145) mmol/L unknown) (unknown) (no (unknown) (unknown) Sodium Chloride (units (unknown) date) (Normal Saline unknown) 0.9%) 1,000 mls @ 1,000 mls/hr IV BOLUS ONE (unknown) (no (unknown) (unknown) Stated Complaint: (units (unknown) date) headache, back unknown) pain, L sided chest pain, body pain (unknown) (no (unknown) (unknown) Stop: 03/24/22 (units (unknown) date) 19:21 unknown) (unknown) (no (unknown) (unknown) Stop: 03/24/22 (units (unknown) date) 20:16 unknown) (unknown) (no (unknown) (unknown) Substance Use (units ( unknown) date) Type: marijuana unknown) (unknown) (no (unknown) (unknown) Surgical History (units (unknown) date) (Reviewed 03/18/22 unknown) @ 11:21 by TYLER Mckeon) (unknown) (no (unknown) (unknown) Temperature 98.4 F (units (unknown) date) 03/24/22 18:50 unknown) (unknown) (no (unknown) (unknown) Temperature 98.4 F (units (unknown) date) unknown) (unknown) (no (unknown) (unknown) Time Seen by (units (u nknown) date) Provider: 03/24/22 unknown) 19:17 (unknown) (no (unknown) (unknown) Total Bilirubin (units (unknown) date) (0.2-1.3) mg/dL unknown) (unknown) (no (unknown) (unknown) Total Bilirubin (units (unknown) date) 0.5 (0.2-1.3) mg/dL unknown) (unknown) (no (unknown) (unknown) Total Creatine (units (unknown) date) Kinase (30-135) U/L unknown) (unknown) (no (unknown) (unknown) Total Creatine (units (unknown) date) Kinase 91 (30-135) unknown) U/L (unknown) (no (unknown) (unknown) Total Protein (units ( unknown) date) (6.3-8.2) g/dL unknown) (unknown) (no (unknown) (unknown) Total Protein 7.4 (units (unknown) date) (6.3-8.2) g/dL unknown) (unknown) (no (unknown) (unknown) Troponin + CK (units ( unknown) date) Cardiac Panel Stat unknown) (unknown) (no (unknown) (unknown) Troponin I (units (unk nown) date) (0.01-0.034) ng/mL unknown) (unknown) (no (unknown) (unknown) Troponin I 0.016 (units (unknown) date) (0.01-0.034) ng/mL unknown) (unknown) (no (unknown) (unknown) Upset (units (unkno wn) date) unknown) (unknown) (no (unknown) (unknown) Vital Signs - 8 hr (units (unknown) date) unknown) (unknown) (no (unknown) (unknown) Vital Signs (units (un known) date) unknown) (unknown) (no (unknown) (unknown) Vital signs: (units (u nknown) date) unknown) (unknown) (no (unknown) (unknown) WBC (4.5-11.0) (units (unknown) date) X103/uL unknown) (unknown) (no (unknown) (unknown) WBC 7.2 (4.5-11.0) (units (unknown) date) X103/uL unknown) (unknown) (no (unknown) (unknown) XR chest 1V Stat (units (unknown) date) unknown) (unknown) (no (unknown) (unknown) [Embedded Image (units (unknown) date) Not Available] unknown) (unknown) (no (unknown) (unknown) [PERTUSSIS (units (unk nown) date) VACCINES] unknown) (unknown) (no (unknown) (unknown) aerosol inhaler (units (unknown) date) (ProAir HFA) unknown) Ventilation #8.5 grams (unknown) (no (unknown) (unknown) albuterol sulfate (units (unknown) date) 90 mcg/actuation 1 unknown) puff inhalation Q6H PRN Adequate 03/08/22 (unknown) (no (unknown) (unknown) albuterol sulfate (units (unknown) date) [ProAir HFA] 90 unknown) mcg/actuation HFA aerosol inhaler (unknown) (no (unknown) (unknown) alcohol intake (units (unknown) date) frequency: 0-2 unknown) drinks per day (unknown) (no (unknown) (unknown) amoxicillin (units (un known) date) Allergy unknown) Intermediate Rash, Verified 03/24/22 18:50 (unknown) (no (unknown) (unknown) azithromycin (units (u nknown) date) Allergy unknown) Intermediate Gastrointestinal Verified 03/24/22 18:50 (unknown) (no (unknown) (unknown) ciprofloxacin (units ( unknown) date) Allergy unknown) Intermediate Gastrointestinal Verified 03/24/22 18:50 (unknown) (no (unknown) (unknown) fluticasone (units (un known) date) propionate 230 2 unknown) puff inhalation BID #12 grams 03/13/22 (unknown) (no (unknown) (unknown) gluten AdvReac (units (unknown) date) Mild Stomach unknown) Verified 03/24/22 18:50 (unknown) (no (unknown) (unknown) headache (units (unkno wn) date) unknown) (unknown) (no (unknown) (unknown) household members: (units (unknown) date) spouse and children unknown) (unknown) (no (unknown) (unknown) hydrocodone 5 (units ( unknown) date) mg-acetaminophen unknown) 325 1 tab PO Q6H PRN pain #10 tabs 03/05/22 (unknown) (no (unknown) (unknown) hydrocodone-acetam (units (unknown) date) inophen 5-325 mg unknown) tablet (unknown) (no (unknown) (unknown) hydromorphone (units ( unknown) date) Allergy Mild unknown) Flushing Verified 03/24/22 18:50 (unknown) (no (unknown) (unknown) ibuprofen Allergy (units (unknown) date) Mild Kidney unknown) Verified 03/24/22 18:50 (unknown) (no (unknown) (unknown) infection (units (unkn own) date) unknown) (unknown) (no (unknown) (unknown) mcg-salmeterol 21 (units (unknown) date) mcg/actuation unknown) (unknown) (no (unknown) (unknown) mg tablet (units (unkn own) date) unknown) (unknown) (no (unknown) (unknown) nausea, (units (unkno wn) date) unknown) (unknown) (no (unknown) (unknown) nickel AdvReac (units (unknown) date) Mild Irritation/ unknown) Verified 03/24/22 18:50 (unknown) (no (unknown) (unknown) ondansetron 4 mg (units (unknown) date) disintegrating 4 mg unknown) PO QID PRN nausea and 04/05/18 (unknown) (no (unknown) (unknown) ondansetron 4 mg (units (unknown) date) tablet,disintegrati unknown) ng (unknown) (no (unknown) (unknown) pain, (units (unkno wn) date) unknown) (unknown) (no (unknown) (unknown) redness (units (unkno wn) date) unknown) (unknown) (no (unknown) (unknown) tablet vomiting (units (unknown) date) #14 tabs unknown) (unknown) (no (unknown) (unknown) throat was (units (unk nown) date) unknown) (unknown) (no (unknown) (unknown) tingly (units (unkno wn) date) unknown) Result panel 606 (unknown) (no (unknown) (unknown) (no value) (units (unk nown) date) unknown) (unknown) (no (unknown) (unknown) 03/24/22 (units (unkno wn) date) unknown) (unknown) (no (unknown) (unknown) [address] (units (unkn own) date) [address] unknown) (unknown) (no (unknown) (unknown) : [id number] (units (u nknown) date) unknown) (unknown) (no (unknown) (unknown) Accession (units (unkn own) date) Number: unknown) [id number] (unknown) (no (unknown) (unknown) Age/Sex: 36 / F (units (unknown) date) Date of Service: unknown) (unknown) (no (unknown) (unknown) [place], [place] (units ( unknown) date) [id number] unknown) (unknown) (no (unknown) (unknown) Approved by: (units (u nknown) date) ethan Bautista) Jose on 03/24/2022 at 21:23 (unknown) (no (unknown) (unknown) Brain: No (units (unkn own) date) midline shift. unknown) No intracranial masses or hemorrhage. Luke-white (unknown) (no (unknown) (unknown) COMPARISON: (units (un known) date) None. unknown) (unknown) (no (unknown) (unknown) CSF spaces: (units (un known) date) Basal cisterns unknown) are patent. No extra-axial fluid collections. (unknown) (no (unknown) (unknown) CT Scan Report (units (unknown) date) unknown) (unknown) (no (unknown) (unknown) : 1985 (units (unknown) date) Acct:[id number] unknown) (unknown) (no (unknown) (unknown) Dictated by: (units (u nknown) date) Juarez Fatima unknownWilfred Garcia on 03/24/2022 at 21:23 (unknown) (no (unknown) (unknown) FINDINGS: (units (unkn own) date) unknown) (unknown) (no (unknown) (unknown) IMPRESSION: (units (un known) date) Normal for age, unknown) source of headache is not found. (unknown) (no (unknown) (unknown) INDICATIONS: (units (u nknown) date) severe headache unknown) (unknown) (no (unknown) (unknown) Image quality: (units (unknown) date) Excellent. unknown) (unknown) (no (unknown) (unknown) [facility] (units (unknown) date) unknown) (unknown) (no (unknown) (unknown) Loc: ED (units (unkno wn) date) unknown) (unknown) (no (unknown) (unknown) Noncontrast 4.5 (units (unknown) date) mm thick angled unknown) axial sections acquired from the foramen magnum (unknown) (no (unknown) (unknown) Ordering (units (unkno wn) date) Provider: unknown) Danita Vila D.O. (unknown) (no (unknown) (unknown) PROCEDURE: CT (units ( unknown) date) HEAD/BRAIN WO unknown) CON (unknown) (no (unknown) (unknown) Patient: (units (unkno wn) date) Tish Castillo unknown) e A MR# (unknown) (no (unknown) (unknown) Procedure: CT (units ( unknown) date) head/brain wo unknown) con (unknown) (no (unknown) (unknown) Signed (units (unkno wn) date) unknown) (unknown) (no (unknown) (unknown) Sinuses: (units (unkno wn) date) Visualized unknown) sinuses and mastoids are clear. (unknown) (no (unknown) (unknown) Skull and face: (units (unknown) date) Calvarium and unknown) visualized facial bones are intact, without (unknown) (no (unknown) (unknown) TECHNIQUE: (units (unk nown) date) unknown) (unknown) (no (unknown) (unknown) Ventricles (units (unk nown) date) unknown) (unknown) (no (unknown) (unknown) are normal in (units ( unknown) date) size and shape. unknown) (unknown) (no (unknown) (unknown) following (units (unkn own) date) unknown) (unknown) (no (unknown) (unknown) interface is (units (u nknown) date) normal. unknown) (unknown) (no (unknown) (unknown) lesions. (units (unkno wn) date) unknown) (unknown) (no (unknown) (unknown) matter (units (unkno wn) date) unknown) (unknown) (no (unknown) (unknown) patient (units (unkno wn) date) unknown) (unknown) (no (unknown) (unknown) size. (units (unkno wn) date) unknown) (unknown) (no (unknown) (unknown) suspicious (units (unk nown) date) unknown) (unknown) (no (unknown) (unknown) to the (units (unkno wn) date) unknown) (unknown) (no (unknown) (unknown) vertex, with (units (u nknown) date) coronal and unknown) sagittal reformats. For radiation dose reduction, the (unknown) (no (unknown) (unknown) was used: (units (unkn own) date) automated unknown) exposure control, adjustment of mA and/or kV according to Result panel 607 (unknown) (no (unknown) (unknown) (no value) (units (unk nown) date) unknown) (unknown) (no (unknown) (unknown) 03/24/22 03/24/22 (units (unknown) date) 03/24/22 unknown) Range/Units (unknown) (no (unknown) (unknown) 03/24/22 19:09 (units (unknown) date) unknown) (unknown) (no (unknown) (unknown) 03/24/22 19:16 (units (unknown) date) unknown) (unknown) (no (unknown) (unknown) 03/24/22 19:40 (units (unknown) date) unknown) (unknown) (no (unknown) (unknown) 03/24/22 20:44 (units (unknown) date) unknown) (unknown) (no (unknown) (unknown) 03/24/22 21:40 (units (unknown) date) unknown) (unknown) (no (unknown) (unknown) 03/24/22 (units (unkno wn) date) unknown) (unknown) (no (unknown) (unknown) 1 puff INHALATION (units (unknown) date) Q6H PRN (Reason: unknown) Adequate Ventilation) Qty: 8.5 0RF (unknown) (no (unknown) (unknown) 1 tab PO Q6H PRN (units (unknown) date) (Reason: pain) Qty: unknown) 10 0RF (unknown) (no (unknown) (unknown) 18:50 03/24/22 (units (unknown) date) unknown) (unknown) (no (unknown) (unknown) 19:09 19:40 19:40 (units (unknown) date) unknown) (unknown) (no (unknown) (unknown) 19:40 19:40 19:40 (units (unknown) date) unknown) (unknown) (no (unknown) (unknown) 19:45 03/24/22 (units (unknown) date) unknown) (unknown) (no (unknown) (unknown) 2 puff inhalation (units (unknown) date) BID Qty: 12 2RF unknown) (unknown) (no (unknown) (unknown) 20:30 (units (unkno wn) date) unknown) (unknown) (no (unknown) (unknown) 20:31 03/24/22 (units (unknown) date) unknown) (unknown) (no (unknown) (unknown) 21:00 (units (unkno wn) date) unknown) (unknown) (no (unknown) (unknown) 4 mg PO QID PRN (units (unknown) date) (Reason: nausea and unknown) vomiting) Qty: 14 2RF (unknown) (no (unknown) (unknown) ALT (<35) IU/L (units (unknown) date) unknown) (unknown) (no (unknown) (unknown) ALT 22 (<35) IU/L (units (unknown) date) unknown) (unknown) (no (unknown) (unknown) APTT (26-36) (units (u nknown) date) SECONDS unknown) (unknown) (no (unknown) (unknown) APTT 27 (26-36) (units (unknown) date) SECONDS unknown) (unknown) (no (unknown) (unknown) AST (14-36) IU/L (units (unknown) date) unknown) (unknown) (no (unknown) (unknown) AST 28 (14-36) (units (unknown) date) IU/L unknown) (unknown) (no (unknown) (unknown) Acetaminophen (units ( unknown) date) (Acetaminophen 325 unknown) Mg Tablet) 975 mg PO NOW ONE (unknown) (no (unknown) (unknown) Admin: 03/24/22 (units (unknown) date) 19:52 Dose: 1,000 unknown) mls/hr (unknown) (no (unknown) (unknown) Advair HFA 230-21 (units (unknown) date) mcg/actuation HFA unknown) aerosol inhaler (unknown) (no (unknown) (unknown) Age/Sex: 36 / F (units (unknown) date) unknown) (unknown) (no (unknown) (unknown) Albumin (3.5-5.0) (units (unknown) date) g/dL unknown) (unknown) (no (unknown) (unknown) Albumin 4.3 (units (un known) date) (3.5-5.0) g/dL unknown) (unknown) (no (unknown) (unknown) Albumin/Globulin (units (unknown) date) Ratio (1.0-2.8) unknown) (unknown) (no (unknown) (unknown) Albumin/Globulin (units (unknown) date) Ratio 1.4 (1.0-2.8) unknown) (unknown) (no (unknown) (unknown) Alkaline (units (unkno wn) date) Phosphatase unknown) (38-126) U/L (unknown) (no (unknown) (unknown) Alkaline (units (unkno wn) date) Phosphatase 46 unknown) (38-126) U/L (unknown) (no (unknown) (unknown) Allergies (units (unkn own) date) unknown) (unknown) (no (unknown) (unknown) Allergy/AdvReac (units (unknown) date) Type Severity unknown) Reaction Status Date / Time (unknown) (no (unknown) (unknown) Anxiety (units (unkno wn) date) unknown) (unknown) (no (unknown) (unknown) Asthma (units (unkno wn) date) unknown) (unknown) (no (unknown) (unknown) BUN (7-17) mg/dL (units (unknown) date) unknown) (unknown) (no (unknown) (unknown) BUN 12 (7-17) (units ( unknown) date) mg/dL unknown) (unknown) (no (unknown) (unknown) BUN/Creatinine (units (unknown) date) Ratio (6-22) unknown) (unknown) (no (unknown) (unknown) BUN/Creatinine (units (unknown) date) Ratio 16.7 (6-22) unknown) (unknown) (no (unknown) (unknown) Baso # (Auto) (units ( unknown) date) (0-100) /uL unknown) (unknown) (no (unknown) (unknown) Baso # (Auto) 0 (units (unknown) date) (0-100) /uL unknown) (unknown) (no (unknown) (unknown) Baso % (Auto) (units ( unknown) date) (0-2) % unknown) (unknown) (no (unknown) (unknown) Baso % (Auto) 0.3 (units (unknown) date) (0-2) % unknown) (unknown) (no (unknown) (unknown) Bedside Urine (units ( unknown) date) Bilirubin - unknown) Negative (unknown) (no (unknown) (unknown) Bedside Urine (units ( unknown) date) Glucose Negative unknown) (unknown) (no (unknown) (unknown) Bedside Urine (units ( unknown) date) Ketone - Negative unknown) (unknown) (no (unknown) (unknown) Bedside Urine (units ( unknown) date) Leukocytes - unknown) Negative (unknown) (no (unknown) (unknown) Bedside Urine (units ( unknown) date) Nitrite - Negative unknown) (unknown) (no (unknown) (unknown) Bedside Urine (units ( unknown) date) Occult Blood - unknown) Negative (unknown) (no (unknown) (unknown) Bedside Urine (units ( unknown) date) Protein - Negative unknown) (unknown) (no (unknown) (unknown) Bedside Urine (units ( unknown) date) Urobilinogen - unknown) Negative (unknown) (no (unknown) (unknown) Bedside Urine pH (units (unknown) date) 6.5 unknown) (unknown) (no (unknown) (unknown) Blood Pressure (units (unknown) date) 91/66 03/24/22 unknown) 18:50 (unknown) (no (unknown) (unknown) Blood Pressure (units (unknown) date) 91/66 118/73 118/73 unknown) (unknown) (no (unknown) (unknown) Blood Pressure (units (unknown) date) unknown) (unknown) (no (unknown) (unknown) CK-MB (CK-2) Rel (units (unknown) date) Index TNP unknown) (unknown) (no (unknown) (unknown) CK-MB (CK-2) Rel (units (unknown) date) Index unknown) (unknown) (no (unknown) (unknown) CK-MB (CK-2) TNP (units (unknown) date) unknown) (unknown) (no (unknown) (unknown) CK-MB (CK-2) (units (u nknown) date) unknown) (unknown) (no (unknown) (unknown) CT head/brain wo (units (unknown) date) con Stat unknown) (unknown) (no (unknown) (unknown) Calcium (8.4-10.2) (units (unknown) date) mg/dL unknown) (unknown) (no (unknown) (unknown) Calcium 8.5 (units (un known) date) (8.4-10.2) mg/dL unknown) (unknown) (no (unknown) (unknown) Carbon Dioxide (units (unknown) date) (22-32) mmol/L unknown) (unknown) (no (unknown) (unknown) Carbon Dioxide 24 (units (unknown) date) (22-32) mmol/L unknown) (unknown) (no (unknown) (unknown) Chief Complaint: (units (unknown) date) Headache unknown) (unknown) (no (unknown) (unknown) Chloride (98-107) (units (unknown) date) mmol/L unknown) (unknown) (no (unknown) (unknown) Chloride 103 (units (u nknown) date) (98-107) mmol/L unknown) (unknown) (no (unknown) (unknown) Complete Blood (units (unknown) date) Count AUTO DIFF unknown) Stat (unknown) (no (unknown) (unknown) Comprehensive (units ( unknown) date) Metabolic Panel unknown) Stat (unknown) (no (unknown) (unknown) Course (units (unkno wn) date) unknown) (unknown) (no (unknown) (unknown) Covid-19 + FLU A/B (units (unknown) date) + RSV - PCR Stat unknown) (unknown) (no (unknown) (unknown) Creatinine (units (unk nown) date) (0.52-1.04) mg/dL unknown) (unknown) (no (unknown) (unknown) Creatinine 0.72 (units (unknown) date) (0.52-1.04) mg/dL unknown) (unknown) (no (unknown) (unknown) : 1985 (units (unknown) date) Acct:[id number] unknown) (unknown) (no (unknown) (unknown) Date of Service: (units (unknown) date) 03/24/22 unknown) (unknown) (no (unknown) (unknown) Departure (units (unkn own) date) unknown) (unknown) (no (unknown) (unknown) Depression (units (unk nown) date) unknown) (unknown) (no (unknown) (unknown) Discharge Plan (units (unknown) date) unknown) (unknown) (no (unknown) (unknown) Discontinued (units (u nknown) date) Medications unknown) (unknown) (no (unknown) (unknown) Documented By: BS (units (unknown) date) unknown) (unknown) (no (unknown) (unknown) Documented By: GC (units (unknown) date) unknown) (unknown) (no (unknown) (unknown) ED Orders (units (unkn own) date) unknown) (unknown) (no (unknown) (unknown) EKG-12 Lead Stat (units (unknown) date) unknown) (unknown) (no (unknown) (unknown) ER Physician: (units ( unknown) date) Danita Vila D.O. unknown) (unknown) (no (unknown) (unknown) Emergency Report (units (unknown) date) unknown) (unknown) (no (unknown) (unknown) Eos # (Auto) (units (u nknown) date) (0-450) /uL unknown) (unknown) (no (unknown) (unknown) Eos # (Auto) 0 (units (unknown) date) (0-450) /uL unknown) (unknown) (no (unknown) (unknown) Eos % (Auto) (2-4) (units (unknown) date) % unknown) (unknown) (no (unknown) (unknown) Eos % (Auto) 0.1 L (units (unknown) date) (2-4) % unknown) (unknown) (no (unknown) (unknown) Esterase (units (unkno wn) date) unknown) (unknown) (no (unknown) (unknown) Estimated GFR > 60 (units (unknown) date) (>60) mL/min unknown) (unknown) (no (unknown) (unknown) Estimated GFR (units ( unknown) date) (>60) mL/min unknown) (unknown) (no (unknown) (unknown) Exam (units (unkno wn) date) unknown) (unknown) (no (unknown) (unknown) General (units (unkno wn) date) unknown) (unknown) (no (unknown) (unknown) Globulin (1.7-4.1) (units (unknown) date) g/dL unknown) (unknown) (no (unknown) (unknown) Globulin 3.1 (units (u nknown) date) (1.7-4.1) g/dL unknown) (unknown) (no (unknown) (unknown) Glucose (70-100) (units (unknown) date) mg/dL unknown) (unknown) (no (unknown) (unknown) Glucose 147 H (units ( unknown) date) (70-100) mg/dL unknown) (unknown) (no (unknown) (unknown) H/O exploratory (units (unknown) date) laparotomy unknown) (unknown) (no (unknown) (unknown) H/O left knee (units ( unknown) date) surgery unknown) (unknown) (no (unknown) (unknown) HFA inhaler (units (un known) date) (Advair HFA) unknown) (unknown) (no (unknown) (unknown) HPI - Headache (units (unknown) date) unknown) (unknown) (no (unknown) (unknown) Hct (36-46) % (units ( unknown) date) unknown) (unknown) (no (unknown) (unknown) Hct 35.7 L (36-46) (units (unknown) date) % unknown) (unknown) (no (unknown) (unknown) Hgb (12.0-16.0) (units (unknown) date) g/dL unknown) (unknown) (no (unknown) (unknown) Hgb 12.1 (units (unkno wn) date) (12.0-16.0) g/dL unknown) (unknown) (no (unknown) (unknown) History of open (units (unknown) date) heart surgery unknown) (unknown) (no (unknown) (unknown) History of surgery (units (unknown) date) unknown) (unknown) (no (unknown) (unknown) INR (0.9-1.3) (units ( unknown) date) unknown) (unknown) (no (unknown) (unknown) INR 1.0 (0.9-1.3) (units (unknown) date) unknown) (unknown) (no (unknown) (unknown) Influenza A (units (un known) date) (RT-PCR) (NEGATIVE) unknown) (unknown) (no (unknown) (unknown) Influenza A (units (un known) date) (RT-PCR) Flu a unknown) negative (NEGATIVE) (unknown) (no (unknown) (unknown) Influenza B (units (un known) date) (RT-PCR) (NEGATIVE) unknown) (unknown) (no (unknown) (unknown) Influenza B (units (un known) date) (RT-PCR) Flu b unknown) negative (NEGATIVE) (unknown) (no (unknown) (unknown) Initial Vital (units ( unknown) date) Signs unknown) (unknown) (no (unknown) (unknown) Initial Vital (units ( unknown) date) Signs: unknown) (unknown) (no (unknown) (unknown) [facility] (units (unknown) date) [address] unknown) [place] [address] (unknown) (no (unknown) (unknown) Lab Data (units (unkno wn) date) unknown) (unknown) (no (unknown) (unknown) Lab Results (units (un known) date) unknown) (unknown) (no (unknown) (unknown) Labs: (units (unkno wn) date) unknown) (unknown) (no (unknown) (unknown) Lactate (0.7-2.1) (units (unknown) date) mmol/L unknown) (unknown) (no (unknown) (unknown) Lactate (Lactic (units (unknown) date) Acid) Stat unknown) (unknown) (no (unknown) (unknown) Lactate 1.5 (units (un known) date) (0.7-2.1) mmol/L unknown) (unknown) (no (unknown) (unknown) Last Admin: (units (un known) date) 03/24/22 19:52 unknown) Dose: 975 mg (unknown) (no (unknown) (unknown) Last Admin: (units (un known) date) 03/24/22 21:09 unknown) Dose: 2 mg (unknown) (no (unknown) (unknown) Last Admin: (units (un known) date) 03/24/22 21:09 unknown) Dose: 4 mg (unknown) (no (unknown) (unknown) Last Infusion: (units (unknown) date) 03/24/22 21:09 unknown) Dose: 0 mls/hr (unknown) (no (unknown) (unknown) Lipase (23-300) (units (unknown) date) U/L unknown) (unknown) (no (unknown) (unknown) Lipase 341 H (units (u nknown) date) (23-300) U/L unknown) (unknown) (no (unknown) (unknown) Lipase Stat (units (un known) date) unknown) (unknown) (no (unknown) (unknown) Lymph # (Auto) (units (unknown) date) (2803-1800) /uL unknown) (unknown) (no (unknown) (unknown) Lymph # (Auto) 500 (units (unknown) date) L (0936-5441) /uL unknown) (unknown) (no (unknown) (unknown) Lymph % (Auto) (units (unknown) date) (25-40) % unknown) (unknown) (no (unknown) (unknown) Lymph % (Auto) 7.4 (units (unknown) date) L (25-40) % unknown) (unknown) (no (unknown) (unknown) [id number] (units (unk nown) date) unknown) (unknown) (no (unknown) (unknown) MCH (26-34) PG (units (unknown) date) unknown) (unknown) (no (unknown) (unknown) MCH 30.6 (26-34) (units (unknown) date) PG unknown) (unknown) (no (unknown) (unknown) MCHC (30-36) % (units (unknown) date) unknown) (unknown) (no (unknown) (unknown) MCHC 34.0 (30-36) (units (unknown) date) % unknown) (unknown) (no (unknown) (unknown) MCV (80-100) fL (units (unknown) date) unknown) (unknown) (no (unknown) (unknown) MCV 90.1 (80-100) (units (unknown) date) fL unknown) (unknown) (no (unknown) (unknown) MDM - Headache (units (unknown) date) unknown) (unknown) (no (unknown) (unknown) Magnesium (units (unkn own) date) (1.6-2.3) mg/dL unknown) (unknown) (no (unknown) (unknown) Magnesium 1.8 (units ( unknown) date) (1.6-2.3) mg/dL unknown) (unknown) (no (unknown) (unknown) Magnesium Stat (units (unknown) date) unknown) (unknown) (no (unknown) (unknown) Medical History (units (unknown) date) (Updated 03/20/22 @ unknown) 00:00 by ) (unknown) (no (unknown) (unknown) Medication (units (unk nown) date) Instructions unknown) Recorded (unknown) (no (unknown) (unknown) Mild persistent (units (unknown) date) asthma unknown) (unknown) (no (unknown) (unknown) Mode of arrival: (units (unknown) date) Ambulatory unknown) (unknown) (no (unknown) (unknown) [place] # (Auto) (units ( unknown) date) (0-900) /uL unknown) (unknown) (no (unknown) (unknown) [place] # (Auto) 400 (units (unknown) date) (0-900) /uL unknown) (unknown) (no (unknown) (unknown) [place] % (Auto) (units ( unknown) date) (3-14) % unknown) (unknown) (no (unknown) (unknown) [place] % (Auto) 6.1 (units (unknown) date) (3-14) % unknown) (unknown) (no (unknown) (unknown) Morphine Sulfate (units (unknown) date) (Morphine 2 Mg/Ml unknown) Inj) 2 mg IV NOW ONE (unknown) (no (unknown) (unknown) Neut # (Auto) (units ( unknown) date) (3537-2808) /uL unknown) (unknown) (no (unknown) (unknown) Neut # (Auto) 6200 (units (unknown) date) (1197-7797) /uL unknown) (unknown) (no (unknown) (unknown) Neut % (Auto) (units ( unknown) date) (50-75) % unknown) (unknown) (no (unknown) (unknown) Neut % (Auto) 86.1 (units (unknown) date) H (50-75) % unknown) (unknown) (no (unknown) (unknown) No Action (units (unkn own) date) unknown) (unknown) (no (unknown) (unknown) Ondansetron HCl (units (unknown) date) (Ondansetron 4 Mg/2 unknown) Ml Inj) 4 mg IV NOW ONE (unknown) (no (unknown) (unknown) Ordered: (units (unkno wn) date) unknown) (unknown) (no (unknown) (unknown) Orders (units (unkno wn) date) unknown) (unknown) (no (unknown) (unknown) Oxygen Delivery (units (unknown) date) Method 03/24/22 unknown) 18:50 (unknown) (no (unknown) (unknown) Oxygen Delivery (units (unknown) date) Method Room Air unknown) Room Air (unknown) (no (unknown) (unknown) Oxygen Delivery (units (unknown) date) Method Room Air unknown) (unknown) (no (unknown) (unknown) PT (10.1-12.7) (units (unknown) date) SECONDS unknown) (unknown) (no (unknown) (unknown) PT 11.8 (units (unkno wn) date) (10.1-12.7) SECONDS unknown) (unknown) (no (unknown) (unknown) Partial (units (unkno wn) date) Thromboplastin Time unknown) Stat (unknown) (no (unknown) (unknown) Patient History (units (unknown) date) unknown) (unknown) (no (unknown) (unknown) Patient: (units (unkno wn) date) GaylaCarmina A unknown) MR#: (unknown) (no (unknown) (unknown) Penicillins (units (un known) date) Allergy unknown) Intermediate Rash Verified 03/24/22 18:50 (unknown) (no (unknown) (unknown) Pertussis Vaccines (units (unknown) date) Allergy Unknown unknown) Seizure Verified 03/24/22 18:50 (unknown) (no (unknown) (unknown) Plt Count (units (unkn own) date) (150-400) X103/uL unknown) (unknown) (no (unknown) (unknown) Plt Count 232 (units ( unknown) date) (150-400) X103/uL unknown) (unknown) (no (unknown) (unknown) Potassium (units (unkn own) date) (3.4-5.1) mmol/L unknown) (unknown) (no (unknown) (unknown) Potassium 3.2 L (units (unknown) date) (3.4-5.1) mmol/L unknown) (unknown) (no (unknown) (unknown) Prescriptions: (units (unknown) date) unknown) (unknown) (no (unknown) (unknown) Previous Rx's (units ( unknown) date) unknown) (unknown) (no (unknown) (unknown) Procalcitonin (units ( unknown) date) (<0.5) ng/mL unknown) (unknown) (no (unknown) (unknown) Procalcitonin 0.14 (units (unknown) date) (<0.5) ng/mL unknown) (unknown) (no (unknown) (unknown) Procalcitonin Stat (units (unknown) date) unknown) (unknown) (no (unknown) (unknown) Prothrombin Time (units (unknown) date) INR Stat unknown) (unknown) (no (unknown) (unknown) Pulse Oximetry 100 (units (unknown) date) 98 unknown) (unknown) (no (unknown) (unknown) Pulse Oximetry 97 (units (unknown) date) 03/24/22 18:50 unknown) (unknown) (no (unknown) (unknown) Pulse Oximetry 97 (units (unknown) date) 99 unknown) (unknown) (no (unknown) (unknown) Pulse Rate 63 77 (units (unknown) date) unknown) (unknown) (no (unknown) (unknown) Pulse Rate 70 (units ( unknown) date) 03/24/22 18:50 unknown) (unknown) (no (unknown) (unknown) Pulse Rate 70 78 (units (unknown) date) unknown) (unknown) (no (unknown) (unknown) RBC (4.0-5.2) (units ( unknown) date) X106/uL unknown) (unknown) (no (unknown) (unknown) RBC 3.96 L (units (unk nown) date) (4.0-5.2) X106/uL unknown) (unknown) (no (unknown) (unknown) RDW (11.6-14.8) % (units (unknown) date) unknown) (unknown) (no (unknown) (unknown) RDW 12.2 (units (unkno wn) date) (11.6-14.8) % unknown) (unknown) (no (unknown) (unknown) RSV (PCR) (units (unkn own) date) (Negative) unknown) (unknown) (no (unknown) (unknown) RSV (PCR) Negative (units (unknown) date) (Negative) unknown) (unknown) (no (unknown) (unknown) Referrals: (units (unk nown) date) unknown) (unknown) (no (unknown) (unknown) Related Data (units (u nknown) date) unknown) (unknown) (no (unknown) (unknown) Respiratory Rate (units (unknown) date) 20 03/24/22 18:50 unknown) (unknown) (no (unknown) (unknown) Respiratory Rate (units (unknown) date) 20 19 unknown) (unknown) (no (unknown) (unknown) Respiratory Rate (units (unknown) date) 22 unknown) (unknown) (no (unknown) (unknown) Wes Herrera ARNP (units (unknown) date) [Primary Care unknown) Provider] (unknown) (no (unknown) (unknown) S/P laparoscopic (units (unknown) date) supracervical unknown) hysterectomy (04/04/18) (unknown) (no (unknown) (unknown) SARS-CoV-2 (PCR) (units (unknown) date) (Negative) unknown) (unknown) (no (unknown) (unknown) SARS-CoV-2 (PCR) (units (unknown) date) Negative (Negative) unknown) (unknown) (no (unknown) (unknown) Signed By: (units (unk nown) date) unknown) (unknown) (no (unknown) (unknown) Smoking Status: (units (unknown) date) Former smoker unknown) (unknown) (no (unknown) (unknown) Social History (units (unknown) date) (Reviewed 03/05/22 unknown) @ 11:22 by Danita Vila DO) (unknown) (no (unknown) (unknown) Sodium (137-145) (units (unknown) date) mmol/L unknown) (unknown) (no (unknown) (unknown) Sodium 138 (units (unk nown) date) (137-145) mmol/L unknown) (unknown) (no (unknown) (unknown) Sodium Chloride (units (unknown) date) (Normal Saline unknown) 0.9%) 1,000 mls @ 1,000 mls/hr IV BOLUS ONE (unknown) (no (unknown) (unknown) Stated Complaint: (units (unknown) date) headache, back unknown) pain, L sided chest pain, body pain (unknown) (no (unknown) (unknown) Stop: 03/24/22 (units (unknown) date) 19:21 unknown) (unknown) (no (unknown) (unknown) Stop: 03/24/22 (units (unknown) date) 20:16 unknown) (unknown) (no (unknown) (unknown) Stop: 03/24/22 (units (unknown) date) 20:45 unknown) (unknown) (no (unknown) (unknown) Substance Use (units ( unknown) date) Type: marijuana unknown) (unknown) (no (unknown) (unknown) Surgical History (units (unknown) date) (Reviewed 03/18/22 unknown) @ 11:21 by TYLER Mckeon) (unknown) (no (unknown) (unknown) Temperature 98.4 F (units (unknown) date) 03/24/22 18:50 unknown) (unknown) (no (unknown) (unknown) Temperature 98.4 F (units (unknown) date) unknown) (unknown) (no (unknown) (unknown) Temperature (units (un known) date) unknown) (unknown) (no (unknown) (unknown) Time Seen by (units (u nknown) date) Provider: 03/24/22 unknown) 19:17 (unknown) (no (unknown) (unknown) Total Bilirubin (units (unknown) date) (0.2-1.3) mg/dL unknown) (unknown) (no (unknown) (unknown) Total Bilirubin (units (unknown) date) 0.5 (0.2-1.3) mg/dL unknown) (unknown) (no (unknown) (unknown) Total Creatine (units (unknown) date) Kinase (30-135) U/L unknown) (unknown) (no (unknown) (unknown) Total Creatine (units (unknown) date) Kinase 91 (30-135) unknown) U/L (unknown) (no (unknown) (unknown) Total Protein (units ( unknown) date) (6.3-8.2) g/dL unknown) (unknown) (no (unknown) (unknown) Total Protein 7.4 (units (unknown) date) (6.3-8.2) g/dL unknown) (unknown) (no (unknown) (unknown) Trop I [Troponin (units (unknown) date) I] Stat unknown) (unknown) (no (unknown) (unknown) Troponin + CK (units ( unknown) date) Cardiac Panel Stat unknown) (unknown) (no (unknown) (unknown) Troponin I (units (unk nown) date) (0.01-0.034) ng/mL unknown) (unknown) (no (unknown) (unknown) Troponin I 0.016 (units (unknown) date) (0.01-0.034) ng/mL unknown) (unknown) (no (unknown) (unknown) Upset (units (unkno wn) date) unknown) (unknown) (no (unknown) (unknown) Urine Dip (units (unkn own) date) unknown) (unknown) (no (unknown) (unknown) Urine Specific (units (unknown) date) Victor 1.030 unknown) (unknown) (no (unknown) (unknown) Vital Signs - 8 hr (units (unknown) date) unknown) (unknown) (no (unknown) (unknown) Vital Signs (units (un known) date) unknown) (unknown) (no (unknown) (unknown) Vital signs: (units (u nknown) date) unknown) (unknown) (no (unknown) (unknown) WBC (4.5-11.0) (units (unknown) date) X103/uL unknown) (unknown) (no (unknown) (unknown) WBC 7.2 (4.5-11.0) (units (unknown) date) X103/uL unknown) (unknown) (no (unknown) (unknown) XR chest 1V Stat (units (unknown) date) unknown) (unknown) (no (unknown) (unknown) [Embedded Image (units (unknown) date) Not Available] unknown) (unknown) (no (unknown) (unknown) [PERTUSSIS (units (unk nown) date) VACCINES] unknown) (unknown) (no (unknown) (unknown) aerosol inhaler (units (unknown) date) (ProAir HFA) unknown) Ventilation #8.5 grams (unknown) (no (unknown) (unknown) albuterol sulfate (units (unknown) date) 90 mcg/actuation 1 unknown) puff inhalation Q6H PRN Adequate 03/08/22 (unknown) (no (unknown) (unknown) albuterol sulfate (units (unknown) date) [ProAir HFA] 90 unknown) mcg/actuation HFA aerosol inhaler (unknown) (no (unknown) (unknown) alcohol intake (units (unknown) date) frequency: 0-2 unknown) drinks per day (unknown) (no (unknown) (unknown) amoxicillin (units (un known) date) Allergy unknown) Intermediate Rash, Verified 03/24/22 18:50 (unknown) (no (unknown) (unknown) azithromycin (units (u nknown) date) Allergy unknown) Intermediate Gastrointestinal Verified 03/24/22 18:50 (unknown) (no (unknown) (unknown) ciprofloxacin (units ( unknown) date) Allergy unknown) Intermediate Gastrointestinal Verified 03/24/22 18:50 (unknown) (no (unknown) (unknown) fluticasone (units (un known) date) propionate 230 2 unknown) puff inhalation BID #12 grams 03/13/22 (unknown) (no (unknown) (unknown) gluten AdvReac (units (unknown) date) Mild Stomach unknown) Verified 03/24/22 18:50 (unknown) (no (unknown) (unknown) headache (units (unkno wn) date) unknown) (unknown) (no (unknown) (unknown) household members: (units (unknown) date) spouse and children unknown) (unknown) (no (unknown) (unknown) hydrocodone 5 (units ( unknown) date) mg-acetaminophen unknown) 325 1 tab PO Q6H PRN pain #10 tabs 03/05/22 (unknown) (no (unknown) (unknown) hydrocodone-acetam (units (unknown) date) inophen 5-325 mg unknown) tablet (unknown) (no (unknown) (unknown) hydromorphone (units ( unknown) date) Allergy Mild unknown) Flushing Verified 03/24/22 18:50 (unknown) (no (unknown) (unknown) ibuprofen Allergy (units (unknown) date) Mild Kidney unknown) Verified 03/24/22 18:50 (unknown) (no (unknown) (unknown) infection (units (unkn own) date) unknown) (unknown) (no (unknown) (unknown) mcg-salmeterol 21 (units (unknown) date) mcg/actuation unknown) (unknown) (no (unknown) (unknown) mg tablet (units (unkn own) date) unknown) (unknown) (no (unknown) (unknown) nausea, (units (unkno wn) date) unknown) (unknown) (no (unknown) (unknown) nickel AdvReac (units (unknown) date) Mild Irritation/ unknown) Verified 03/24/22 18:50 (unknown) (no (unknown) (unknown) ondansetron 4 mg (units (unknown) date) disintegrating 4 mg unknown) PO QID PRN nausea and 04/05/18 (unknown) (no (unknown) (unknown) ondansetron 4 mg (units (unknown) date) tablet,disintegrati unknown) ng (unknown) (no (unknown) (unknown) pain, (units (unkno wn) date) unknown) (unknown) (no (unknown) (unknown) redness (units (unkno wn) date) unknown) (unknown) (no (unknown) (unknown) tablet vomiting (units (unknown) date) #14 tabs unknown) (unknown) (no (unknown) (unknown) throat was (units (unk nown) date) unknown) (unknown) (no (unknown) (unknown) tingly (units (unkno wn) date) unknown) Result panel 608 (unknown) (no (unknown) (unknown) (no value) (units (unk nown) date) unknown) (unknown) (no (unknown) (unknown) 03/24/22 03/24/22 (units (unknown) date) 03/24/22 unknown) Range/Units (unknown) (no (unknown) (unknown) 03/24/22 19:09 (units (unknown) date) unknown) (unknown) (no (unknown) (unknown) 03/24/22 19:16 (units (unknown) date) unknown) (unknown) (no (unknown) (unknown) 03/24/22 19:40 (units (unknown) date) unknown) (unknown) (no (unknown) (unknown) 03/24/22 20:44 (units (unknown) date) unknown) (unknown) (no (unknown) (unknown) 03/24/22 21:38 (units (unknown) date) unknown) (unknown) (no (unknown) (unknown) 03/24/22 (units (unkno wn) date) unknown) (unknown) (no (unknown) (unknown) 1 puff INHALATION (units (unknown) date) Q6H PRN (Reason: unknown) Adequate Ventilation) Qty: 8.5 0RF (unknown) (no (unknown) (unknown) 1 tab PO Q6H PRN (units (unknown) date) (Reason: pain) Qty: unknown) 10 0RF (unknown) (no (unknown) (unknown) 18:50 03/24/22 (units (unknown) date) unknown) (unknown) (no (unknown) (unknown) 19:09 19:40 19:40 (units (unknown) date) unknown) (unknown) (no (unknown) (unknown) 19:40 19:40 19:40 (units (unknown) date) unknown) (unknown) (no (unknown) (unknown) 19:45 03/24/22 (units (unknown) date) unknown) (unknown) (no (unknown) (unknown) 2 puff inhalation (units (unknown) date) BID Qty: 12 2RF unknown) (unknown) (no (unknown) (unknown) 20:30 (units (unkno wn) date) unknown) (unknown) (no (unknown) (unknown) 20:31 03/24/22 (units (unknown) date) unknown) (unknown) (no (unknown) (unknown) 21:00 (units (unkno wn) date) unknown) (unknown) (no (unknown) (unknown) 4 mg PO QID PRN (units (unknown) date) (Reason: nausea and unknown) vomiting) Qty: 14 2RF (unknown) (no (unknown) (unknown) ALT (<35) IU/L (units (unknown) date) unknown) (unknown) (no (unknown) (unknown) ALT 22 (<35) IU/L (units (unknown) date) unknown) (unknown) (no (unknown) (unknown) APTT (26-36) (units (u nknown) date) SECONDS unknown) (unknown) (no (unknown) (unknown) APTT 27 (26-36) (units (unknown) date) SECONDS unknown) (unknown) (no (unknown) (unknown) AST (14-36) IU/L (units (unknown) date) unknown) (unknown) (no (unknown) (unknown) AST 28 (14-36) (units (unknown) date) IU/L unknown) (unknown) (no (unknown) (unknown) Acetaminophen (units ( unknown) date) (Acetaminophen 325 unknown) Mg Tablet) 975 mg PO NOW ONE (unknown) (no (unknown) (unknown) Admin: 03/24/22 (units (unknown) date) 19:52 Dose: 1,000 unknown) mls/hr (unknown) (no (unknown) (unknown) Advair HFA 230-21 (units (unknown) date) mcg/actuation HFA unknown) aerosol inhaler (unknown) (no (unknown) (unknown) Age/Sex: 36 / F (units (unknown) date) unknown) (unknown) (no (unknown) (unknown) Albumin (3.5-5.0) (units (unknown) date) g/dL unknown) (unknown) (no (unknown) (unknown) Albumin 4.3 (units (un known) date) (3.5-5.0) g/dL unknown) (unknown) (no (unknown) (unknown) Albumin/Globulin (units (unknown) date) Ratio (1.0-2.8) unknown) (unknown) (no (unknown) (unknown) Albumin/Globulin (units (unknown) date) Ratio 1.4 (1.0-2.8) unknown) (unknown) (no (unknown) (unknown) Alkaline (units (unkno wn) date) Phosphatase unknown) (38-126) U/L (unknown) (no (unknown) (unknown) Alkaline (units (unkno wn) date) Phosphatase 46 unknown) (38-126) U/L (unknown) (no (unknown) (unknown) Allergies (units (unkn own) date) unknown) (unknown) (no (unknown) (unknown) Allergy/AdvReac (units (unknown) date) Type Severity unknown) Reaction Status Date / Time (unknown) (no (unknown) (unknown) Anxiety (units (unkno wn) date) unknown) (unknown) (no (unknown) (unknown) Asthma (units (unkno wn) date) unknown) (unknown) (no (unknown) (unknown) BUN (7-17) mg/dL (units (unknown) date) unknown) (unknown) (no (unknown) (unknown) BUN 12 (7-17) (units ( unknown) date) mg/dL unknown) (unknown) (no (unknown) (unknown) BUN/Creatinine (units (unknown) date) Ratio (6-22) unknown) (unknown) (no (unknown) (unknown) BUN/Creatinine (units (unknown) date) Ratio 16.7 (6-22) unknown) (unknown) (no (unknown) (unknown) Baso # (Auto) (units ( unknown) date) (0-100) /uL unknown) (unknown) (no (unknown) (unknown) Baso # (Auto) 0 (units (unknown) date) (0-100) /uL unknown) (unknown) (no (unknown) (unknown) Baso % (Auto) (units ( unknown) date) (0-2) % unknown) (unknown) (no (unknown) (unknown) Baso % (Auto) 0.3 (units (unknown) date) (0-2) % unknown) (unknown) (no (unknown) (unknown) Bedside Urine (units ( unknown) date) Bilirubin - unknown) Negative (unknown) (no (unknown) (unknown) Bedside Urine (units ( unknown) date) Glucose Negative unknown) (unknown) (no (unknown) (unknown) Bedside Urine (units ( unknown) date) Ketone - Negative unknown) (unknown) (no (unknown) (unknown) Bedside Urine (units ( unknown) date) Leukocytes - unknown) Negative (unknown) (no (unknown) (unknown) Bedside Urine (units ( unknown) date) Nitrite - Negative unknown) (unknown) (no (unknown) (unknown) Bedside Urine (units ( unknown) date) Occult Blood - unknown) Negative (unknown) (no (unknown) (unknown) Bedside Urine (units ( unknown) date) Protein - Negative unknown) (unknown) (no (unknown) (unknown) Bedside Urine (units ( unknown) date) Urobilinogen - unknown) Negative (unknown) (no (unknown) (unknown) Bedside Urine pH (units (unknown) date) 6.5 unknown) (unknown) (no (unknown) (unknown) Blood Pressure (units (unknown) date) 03/24/22 unknown) 18:50 (unknown) (no (unknown) (unknown) Blood Pressure (units (unknown) date) 118/73 118/73 unknown) (unknown) (no (unknown) (unknown) Blood Pressure (units (unknown) date) unknown) (unknown) (no (unknown) (unknown) CK-MB (CK-2) Rel (units (unknown) date) Index TNP unknown) (unknown) (no (unknown) (unknown) CK-MB (CK-2) Rel (units (unknown) date) Index unknown) (unknown) (no (unknown) (unknown) CK-MB (CK-2) TNP (units (unknown) date) unknown) (unknown) (no (unknown) (unknown) CK-MB (CK-2) (units (u nknown) date) unknown) (unknown) (no (unknown) (unknown) CT head/brain wo (units (unknown) date) con Stat unknown) (unknown) (no (unknown) (unknown) Calcium (8.4-10.2) (units (unknown) date) mg/dL unknown) (unknown) (no (unknown) (unknown) Calcium 8.5 (units (un known) date) (8.4-10.2) mg/dL unknown) (unknown) (no (unknown) (unknown) Carbon Dioxide (units (unknown) date) (22-32) mmol/L unknown) (unknown) (no (unknown) (unknown) Carbon Dioxide 24 (units (unknown) date) (22-32) mmol/L unknown) (unknown) (no (unknown) (unknown) Chief Complaint: (units (unknown) date) Headache unknown) (unknown) (no (unknown) (unknown) Chloride (98-107) (units (unknown) date) mmol/L unknown) (unknown) (no (unknown) (unknown) Chloride 103 (units (u nknown) date) (98-107) mmol/L unknown) (unknown) (no (unknown) (unknown) Complete Blood (units (unknown) date) Count AUTO DIFF unknown) Stat (unknown) (no (unknown) (unknown) Comprehensive (units ( unknown) date) Metabolic Panel unknown) Stat (unknown) (no (unknown) (unknown) Course (units (unkno wn) date) unknown) (unknown) (no (unknown) (unknown) Covid-19 + FLU A/B (units (unknown) date) + RSV - PCR Stat unknown) (unknown) (no (unknown) (unknown) Creatinine (units (unk nown) date) (0.52-1.04) mg/dL unknown) (unknown) (no (unknown) (unknown) Creatinine 0.72 (units (unknown) date) (0.52-1.04) mg/dL unknown) (unknown) (no (unknown) (unknown) : 1985 (units (unknown) date) Acct:[id number] unknown) (unknown) (no (unknown) (unknown) Date of Service: (units (unknown) date) 03/24/22 unknown) (unknown) (no (unknown) (unknown) Departure (units (unkn own) date) unknown) (unknown) (no (unknown) (unknown) Depression (units (unk nown) date) unknown) (unknown) (no (unknown) (unknown) Discharge Plan (units (unknown) date) unknown) (unknown) (no (unknown) (unknown) Discontinued (units (u nknown) date) Medications unknown) (unknown) (no (unknown) (unknown) Documented By: BS (units (unknown) date) unknown) (unknown) (no (unknown) (unknown) Documented By: GC (units (unknown) date) unknown) (unknown) (no (unknown) (unknown) ED Orders (units (unkn own) date) unknown) (unknown) (no (unknown) (unknown) EKG-12 Lead Stat (units (unknown) date) unknown) (unknown) (no (unknown) (unknown) ER Physician: (units ( unknown) date) Danita Vila D.O. unknown) (unknown) (no (unknown) (unknown) Emergency Report (units (unknown) date) unknown) (unknown) (no (unknown) (unknown) Eos # (Auto) (units (u nknown) date) (0-450) /uL unknown) (unknown) (no (unknown) (unknown) Eos # (Auto) 0 (units (unknown) date) (0-450) /uL unknown) (unknown) (no (unknown) (unknown) Eos % (Auto) (2-4) (units (unknown) date) % unknown) (unknown) (no (unknown) (unknown) Eos % (Auto) 0.1 L (units (unknown) date) (2-4) % unknown) (unknown) (no (unknown) (unknown) Esterase (units (unkno wn) date) unknown) (unknown) (no (unknown) (unknown) Estimated GFR > 60 (units (unknown) date) (>60) mL/min unknown) (unknown) (no (unknown) (unknown) Estimated GFR (units ( unknown) date) (>60) mL/min unknown) (unknown) (no (unknown) (unknown) Exam (units (unkno wn) date) unknown) (unknown) (no (unknown) (unknown) General (units (unkno wn) date) unknown) (unknown) (no (unknown) (unknown) Globulin (1.7-4.1) (units (unknown) date) g/dL unknown) (unknown) (no (unknown) (unknown) Globulin 3.1 (units (u nknown) date) (1.7-4.1) g/dL unknown) (unknown) (no (unknown) (unknown) Glucose (70-100) (units (unknown) date) mg/dL unknown) (unknown) (no (unknown) (unknown) Glucose 147 H (units ( unknown) date) (70-100) mg/dL unknown) (unknown) (no (unknown) (unknown) H/O exploratory (units (unknown) date) laparotomy unknown) (unknown) (no (unknown) (unknown) H/O left knee (units ( unknown) date) surgery unknown) (unknown) (no (unknown) (unknown) HFA inhaler (units (un known) date) (Advair HFA) unknown) (unknown) (no (unknown) (unknown) HPI - Headache (units (unknown) date) unknown) (unknown) (no (unknown) (unknown) Hct (36-46) % (units ( unknown) date) unknown) (unknown) (no (unknown) (unknown) Hct 35.7 L (36-46) (units (unknown) date) % unknown) (unknown) (no (unknown) (unknown) Hgb (12.0-16.0) (units (unknown) date) g/dL unknown) (unknown) (no (unknown) (unknown) Hgb 12.1 (units (unkno wn) date) (12.0-16.0) g/dL unknown) (unknown) (no (unknown) (unknown) History of open (units (unknown) date) heart surgery unknown) (unknown) (no (unknown) (unknown) History of surgery (units (unknown) date) unknown) (unknown) (no (unknown) (unknown) INR (0.9-1.3) (units ( unknown) date) unknown) (unknown) (no (unknown) (unknown) INR 1.0 (0.9-1.3) (units (unknown) date) unknown) (unknown) (no (unknown) (unknown) Influenza A (units (un known) date) (RT-PCR) (NEGATIVE) unknown) (unknown) (no (unknown) (unknown) Influenza A (units (un known) date) (RT-PCR) Flu a unknown) negative (NEGATIVE) (unknown) (no (unknown) (unknown) Influenza B (units (un known) date) (RT-PCR) (NEGATIVE) unknown) (unknown) (no (unknown) (unknown) Influenza B (units (un known) date) (RT-PCR) Flu b unknown) negative (NEGATIVE) (unknown) (no (unknown) (unknown) Initial Vital (units ( unknown) date) Signs unknown) (unknown) (no (unknown) (unknown) Initial Vital (units ( unknown) date) Signs: unknown) (unknown) (no (unknown) (unknown) [facility] (units (unknown) date) [address] unknown) [place] [address] (unknown) (no (unknown) (unknown) Lab Data (units (unkno wn) date) unknown) (unknown) (no (unknown) (unknown) Lab Results (units (un known) date) unknown) (unknown) (no (unknown) (unknown) Labs: (units (unkno wn) date) unknown) (unknown) (no (unknown) (unknown) Lactate (0.7-2.1) (units (unknown) date) mmol/L unknown) (unknown) (no (unknown) (unknown) Lactate (Lactic (units (unknown) date) Acid) Stat unknown) (unknown) (no (unknown) (unknown) Lactate 1.5 (units (un known) date) (0.7-2.1) mmol/L unknown) (unknown) (no (unknown) (unknown) Last Admin: (units (un known) date) 03/24/22 19:52 unknown) Dose: 975 mg (unknown) (no (unknown) (unknown) Last Admin: (units (un known) date) 03/24/22 21:09 unknown) Dose: 2 mg (unknown) (no (unknown) (unknown) Last Admin: (units (un known) date) 03/24/22 21:09 unknown) Dose: 4 mg (unknown) (no (unknown) (unknown) Last Infusion: (units (unknown) date) 03/24/22 21:09 unknown) Dose: 0 mls/hr (unknown) (no (unknown) (unknown) Lipase (23-300) (units (unknown) date) U/L unknown) (unknown) (no (unknown) (unknown) Lipase 341 H (units (u nknown) date) (23-300) U/L unknown) (unknown) (no (unknown) (unknown) Lipase Stat (units (un known) date) unknown) (unknown) (no (unknown) (unknown) Lymph # (Auto) (units (unknown) date) (2704-3700) /uL unknown) (unknown) (no (unknown) (unknown) Lymph # (Auto) 500 (units (unknown) date) L (3420-7289) /uL unknown) (unknown) (no (unknown) (unknown) Lymph % (Auto) (units (unknown) date) (25-40) % unknown) (unknown) (no (unknown) (unknown) Lymph % (Auto) 7.4 (units (unknown) date) L (25-40) % unknown) (unknown) (no (unknown) (unknown) [id number] (units (unk nown) date) unknown) (unknown) (no (unknown) (unknown) MCH (26-34) PG (units (unknown) date) unknown) (unknown) (no (unknown) (unknown) MCH 30.6 (26-34) (units (unknown) date) PG unknown) (unknown) (no (unknown) (unknown) MCHC (30-36) % (units (unknown) date) unknown) (unknown) (no (unknown) (unknown) MCHC 34.0 (30-36) (units (unknown) date) % unknown) (unknown) (no (unknown) (unknown) MCV (80-100) fL (units (unknown) date) unknown) (unknown) (no (unknown) (unknown) MCV 90.1 (80-100) (units (unknown) date) fL unknown) (unknown) (no (unknown) (unknown) MDM - Headache (units (unknown) date) unknown) (unknown) (no (unknown) (unknown) Magnesium (units (unkn own) date) (1.6-2.3) mg/dL unknown) (unknown) (no (unknown) (unknown) Magnesium 1.8 (units ( unknown) date) (1.6-2.3) mg/dL unknown) (unknown) (no (unknown) (unknown) Magnesium Stat (units (unknown) date) unknown) (unknown) (no (unknown) (unknown) Medical History (units (unknown) date) (Updated 03/20/22 @ unknown) 00:00 by ) (unknown) (no (unknown) (unknown) Medication (units (unk nown) date) Instructions unknown) Recorded (unknown) (no (unknown) (unknown) Mild persistent (units (unknown) date) asthma unknown) (unknown) (no (unknown) (unknown) Mode of arrival: (units (unknown) date) Ambulatory unknown) (unknown) (no (unknown) (unknown) [place] # (Auto) (units ( unknown) date) (0-900) /uL unknown) (unknown) (no (unknown) (unknown) [place] # (Auto) 400 (units (unknown) date) (0-900) /uL unknown) (unknown) (no (unknown) (unknown) [place] % (Auto) (units ( unknown) date) (3-14) % unknown) (unknown) (no (unknown) (unknown) [place] % (Auto) 6.1 (units (unknown) date) (3-14) % unknown) (unknown) (no (unknown) (unknown) Morphine Sulfate (units (unknown) date) (Morphine 2 Mg/Ml unknown) Inj) 2 mg IV NOW ONE (unknown) (no (unknown) (unknown) Neut # (Auto) (units ( unknown) date) (7612-1980) /uL unknown) (unknown) (no (unknown) (unknown) Neut # (Auto) 6200 (units (unknown) date) (6620-4119) /uL unknown) (unknown) (no (unknown) (unknown) Neut % (Auto) (units ( unknown) date) (50-75) % unknown) (unknown) (no (unknown) (unknown) Neut % (Auto) 86.1 (units (unknown) date) H (50-75) % unknown) (unknown) (no (unknown) (unknown) No Action (units (unkn own) date) unknown) (unknown) (no (unknown) (unknown) Ondansetron HCl (units (unknown) date) (Ondansetron 4 Mg/2 unknown) Ml Inj) 4 mg IV NOW ONE (unknown) (no (unknown) (unknown) Ordered: (units (unkno wn) date) unknown) (unknown) (no (unknown) (unknown) Orders (units (unkno wn) date) unknown) (unknown) (no (unknown) (unknown) Oxygen Delivery (units (unknown) date) Method 03/24/22 unknown) 18:50 (unknown) (no (unknown) (unknown) Oxygen Delivery (units (unknown) date) Method Room Air unknown) Room Air (unknown) (no (unknown) (unknown) Oxygen Delivery (units (unknown) date) Method Room Air unknown) (unknown) (no (unknown) (unknown) PT (10.1-12.7) (units (unknown) date) SECONDS unknown) (unknown) (no (unknown) (unknown) PT 11.8 (units (unkno wn) date) (10.1-12.7) SECONDS unknown) (unknown) (no (unknown) (unknown) Partial (units (unkno wn) date) Thromboplastin Time unknown) Stat (unknown) (no (unknown) (unknown) Patient History (units (unknown) date) unknown) (unknown) (no (unknown) (unknown) Patient: (units (unkno wn) date) Carmina Castillo unknown) MR#: (unknown) (no (unknown) (unknown) Penicillins (units (un known) date) Allergy unknown) Intermediate Rash Verified 03/24/22 18:50 (unknown) (no (unknown) (unknown) Pertussis Vaccines (units (unknown) date) Allergy Unknown unknown) Seizure Verified 03/24/22 18:50 (unknown) (no (unknown) (unknown) Plt Count (units (unkn own) date) (150-400) X103/uL unknown) (unknown) (no (unknown) (unknown) Plt Count 232 (units ( unknown) date) (150-400) X103/uL unknown) (unknown) (no (unknown) (unknown) Potassium (units (unkn own) date) (3.4-5.1) mmol/L unknown) (unknown) (no (unknown) (unknown) Potassium 3.2 L (units (unknown) date) (3.4-5.1) mmol/L unknown) (unknown) (no (unknown) (unknown) Prescriptions: (units (unknown) date) unknown) (unknown) (no (unknown) (unknown) Previous Rx's (units ( unknown) date) unknown) (unknown) (no (unknown) (unknown) Procalcitonin (units ( unknown) date) (<0.5) ng/mL unknown) (unknown) (no (unknown) (unknown) Procalcitonin 0.14 (units (unknown) date) (<0.5) ng/mL unknown) (unknown) (no (unknown) (unknown) Procalcitonin Stat (units (unknown) date) unknown) (unknown) (no (unknown) (unknown) Prothrombin Time (units (unknown) date) INR Stat unknown) (unknown) (no (unknown) (unknown) Pulse Oximetry 100 (units (unknown) date) 98 unknown) (unknown) (no (unknown) (unknown) Pulse Oximetry 97 (units (unknown) date) 03/24/22 18:50 unknown) (unknown) (no (unknown) (unknown) Pulse Oximetry 97 (units (unknown) date) 99 unknown) (unknown) (no (unknown) (unknown) Pulse Rate 63 77 (units (unknown) date) unknown) (unknown) (no (unknown) (unknown) Pulse Rate 70 (units ( unknown) date) 03/24/22 18:50 unknown) (unknown) (no (unknown) (unknown) Pulse Rate 70 78 (units (unknown) date) unknown) (unknown) (no (unknown) (unknown) RBC (4.0-5.2) (units ( unknown) date) X106/uL unknown) (unknown) (no (unknown) (unknown) RBC 3.96 L (units (unk nown) date) (4.0-5.2) X106/uL unknown) (unknown) (no (unknown) (unknown) RDW (11.6-14.8) % (units (unknown) date) unknown) (unknown) (no (unknown) (unknown) RDW 12.2 (units (unkno wn) date) (11.6-14.8) % unknown) (unknown) (no (unknown) (unknown) RSV (PCR) (units (unkn own) date) (Negative) unknown) (unknown) (no (unknown) (unknown) RSV (PCR) Negative (units (unknown) date) (Negative) unknown) (unknown) (no (unknown) (unknown) Referrals: (units (unk nown) date) unknown) (unknown) (no (unknown) (unknown) Related Data (units (u nknown) date) unknown) (unknown) (no (unknown) (unknown) Respiratory Rate (units (unknown) date) 20 03/24/22 18:50 unknown) (unknown) (no (unknown) (unknown) Respiratory Rate (units (unknown) date) 20 19 unknown) (unknown) (no (unknown) (unknown) Respiratory Rate (units (unknown) date) 22 unknown) (unknown) (no (unknown) (unknown) Wes Herrera ARNP (units (unknown) date) [Primary Care unknown) Provider] (unknown) (no (unknown) (unknown) S/P laparoscopic (units (unknown) date) supracervical unknown) hysterectomy (04/04/18) (unknown) (no (unknown) (unknown) SARS-CoV-2 (PCR) (units (unknown) date) (Negative) unknown) (unknown) (no (unknown) (unknown) SARS-CoV-2 (PCR) (units (unknown) date) Negative (Negative) unknown) (unknown) (no (unknown) (unknown) Signed By: (units (unk nown) date) unknown) (unknown) (no (unknown) (unknown) Smoking Status: (units (unknown) date) Former smoker unknown) (unknown) (no (unknown) (unknown) Social History (units (unknown) date) (Reviewed 03/05/22 unknown) @ 11:22 by Danita Vila DO) (unknown) (no (unknown) (unknown) Sodium (137-145) (units (unknown) date) mmol/L unknown) (unknown) (no (unknown) (unknown) Sodium 138 (units (unk nown) date) (137-145) mmol/L unknown) (unknown) (no (unknown) (unknown) Sodium Chloride (units (unknown) date) (Normal Saline unknown) 0.9%) 1,000 mls @ 1,000 mls/hr IV BOLUS ONE (unknown) (no (unknown) (unknown) Stated Complaint: (units (unknown) date) headache, back unknown) pain, L sided chest pain, body pain (unknown) (no (unknown) (unknown) Stop: 03/24/22 (units (unknown) date) 19:21 unknown) (unknown) (no (unknown) (unknown) Stop: 03/24/22 (units (unknown) date) 20:16 unknown) (unknown) (no (unknown) (unknown) Stop: 03/24/22 (units (unknown) date) 20:45 unknown) (unknown) (no (unknown) (unknown) Substance Use (units ( unknown) date) Type: marijuana unknown) (unknown) (no (unknown) (unknown) Surgical History (units (unknown) date) (Reviewed 03/18/22 unknown) @ 11:21 by TYLER Mckeon) (unknown) (no (unknown) (unknown) Temperature 98.4 F (units (unknown) date) 03/24/22 18:50 unknown) (unknown) (no (unknown) (unknown) Temperature 98.4 F (units (unknown) date) unknown) (unknown) (no (unknown) (unknown) Temperature (units (un known) date) unknown) (unknown) (no (unknown) (unknown) Time Seen by (units (u nknown) date) Provider: 03/24/22 unknown) 19:17 (unknown) (no (unknown) (unknown) Total Bilirubin (units (unknown) date) (0.2-1.3) mg/dL unknown) (unknown) (no (unknown) (unknown) Total Bilirubin (units (unknown) date) 0.5 (0.2-1.3) mg/dL unknown) (unknown) (no (unknown) (unknown) Total Creatine (units (unknown) date) Kinase (30-135) U/L unknown) (unknown) (no (unknown) (unknown) Total Creatine (units (unknown) date) Kinase 91 (30-135) unknown) U/L (unknown) (no (unknown) (unknown) Total Protein (units ( unknown) date) (6.3-8.2) g/dL unknown) (unknown) (no (unknown) (unknown) Total Protein 7.4 (units (unknown) date) (6.3-8.2) g/dL unknown) (unknown) (no (unknown) (unknown) Trop I [Troponin (units (unknown) date) I] Stat unknown) (unknown) (no (unknown) (unknown) Troponin + CK (units ( unknown) date) Cardiac Panel Stat unknown) (unknown) (no (unknown) (unknown) Troponin I (units (unk nown) date) (0.01-0.034) ng/mL unknown) (unknown) (no (unknown) (unknown) Troponin I 0.016 (units (unknown) date) (0.01-0.034) ng/mL unknown) (unknown) (no (unknown) (unknown) Upset (units (unkno wn) date) unknown) (unknown) (no (unknown) (unknown) Urine Dip (units (unkn own) date) unknown) (unknown) (no (unknown) (unknown) Urine Specific (units (unknown) date) Victor 1.030 unknown) (unknown) (no (unknown) (unknown) Vital Signs - 8 hr (units (unknown) date) unknown) (unknown) (no (unknown) (unknown) Vital Signs (units (un known) date) unknown) (unknown) (no (unknown) (unknown) Vital signs: (units (u nknown) date) unknown) (unknown) (no (unknown) (unknown) WBC (4.5-11.0) (units (unknown) date) X103/uL unknown) (unknown) (no (unknown) (unknown) WBC 7.2 (4.5-11.0) (units (unknown) date) X103/uL unknown) (unknown) (no (unknown) (unknown) XR chest 1V Stat (units (unknown) date) unknown) (unknown) (no (unknown) (unknown) [Embedded Image (units (unknown) date) Not Available] unknown) (unknown) (no (unknown) (unknown) [PERTUSSIS (units (unk nown) date) VACCINES] unknown) (unknown) (no (unknown) (unknown) aerosol inhaler (units (unknown) date) (ProAir HFA) unknown) Ventilation #8.5 grams (unknown) (no (unknown) (unknown) albuterol sulfate (units (unknown) date) 90 mcg/actuation 1 unknown) puff inhalation Q6H PRN Adequate 03/08/22 (unknown) (no (unknown) (unknown) albuterol sulfate (units (unknown) date) [ProAir HFA] 90 unknown) mcg/actuation HFA aerosol inhaler (unknown) (no (unknown) (unknown) alcohol intake (units (unknown) date) frequency: 0-2 unknown) drinks per day (unknown) (no (unknown) (unknown) amoxicillin (units (un known) date) Allergy unknown) Intermediate Rash, Verified 03/24/22 18:50 (unknown) (no (unknown) (unknown) azithromycin (units (u nknown) date) Allergy unknown) Intermediate Gastrointestinal Verified 03/24/22 18:50 (unknown) (no (unknown) (unknown) ciprofloxacin (units ( unknown) date) Allergy unknown) Intermediate Gastrointestinal Verified 03/24/22 18:50 (unknown) (no (unknown) (unknown) fluticasone (units (un known) date) propionate 230 2 unknown) puff inhalation BID #12 grams 03/13/22 (unknown) (no (unknown) (unknown) gluten AdvReac (units (unknown) date) Mild Stomach unknown) Verified 03/24/22 18:50 (unknown) (no (unknown) (unknown) headache (units (unkno wn) date) unknown) (unknown) (no (unknown) (unknown) household members: (units (unknown) date) spouse and children unknown) (unknown) (no (unknown) (unknown) hydrocodone 5 (units ( unknown) date) mg-acetaminophen unknown) 325 1 tab PO Q6H PRN pain #10 tabs 03/05/22 (unknown) (no (unknown) (unknown) hydrocodone-acetam (units (unknown) date) inophen 5-325 mg unknown) tablet (unknown) (no (unknown) (unknown) hydromorphone (units ( unknown) date) Allergy Mild unknown) Flushing Verified 03/24/22 18:50 (unknown) (no (unknown) (unknown) ibuprofen Allergy (units (unknown) date) Mild Kidney unknown) Verified 03/24/22 18:50 (unknown) (no (unknown) (unknown) infection (units (unkn own) date) unknown) (unknown) (no (unknown) (unknown) mcg-salmeterol 21 (units (unknown) date) mcg/actuation unknown) (unknown) (no (unknown) (unknown) mg tablet (units (unkn own) date) unknown) (unknown) (no (unknown) (unknown) nausea, (units (unkno wn) date) unknown) (unknown) (no (unknown) (unknown) nickel AdvReac (units (unknown) date) Mild Irritation/ unknown) Verified 03/24/22 18:50 (unknown) (no (unknown) (unknown) ondansetron 4 mg (units (unknown) date) disintegrating 4 mg unknown) PO QID PRN nausea and 04/05/18 (unknown) (no (unknown) (unknown) ondansetron 4 mg (units (unknown) date) tablet,disintegrati unknown) ng (unknown) (no (unknown) (unknown) pain, (units (unkno wn) date) unknown) (unknown) (no (unknown) (unknown) redness (units (unkno wn) date) unknown) (unknown) (no (unknown) (unknown) tablet vomiting (units (unknown) date) #14 tabs unknown) (unknown) (no (unknown) (unknown) throat was (units (unk nown) date) unknown) (unknown) (no (unknown) (unknown) tingly (units (unkno wn) date) unknown) Result panel 609 (unknown) (no date) (unknown) (unknown) 0.018 ng/ml (unkn own) (unknown) (no date) (unknown) (unknown) 0.018 ng/ml (unkn own) Result panel 610 (unknown) (no (unknown) (unknown) (no value) (units (unk nown) date) unknown) (unknown) (no (unknown) (unknown) 03/24/22 03/24/22 (units (unknown) date) 03/24/22 unknown) Range/Units (unknown) (no (unknown) (unknown) 03/24/22 19:09 (units (unknown) date) unknown) (unknown) (no (unknown) (unknown) 03/24/22 19:16 (units (unknown) date) unknown) (unknown) (no (unknown) (unknown) 03/24/22 19:40 (units (unknown) date) unknown) (unknown) (no (unknown) (unknown) 03/24/22 20:44 (units (unknown) date) unknown) (unknown) (no (unknown) (unknown) 03/24/22 21:38 (units (unknown) date) unknown) (unknown) (no (unknown) (unknown) 03/24/22 (units (unkno wn) date) Range/Units unknown) (unknown) (no (unknown) (unknown) 03/24/22 (units (unkno wn) date) unknown) (unknown) (no (unknown) (unknown) 1 puff INHALATION (units (unknown) date) Q6H PRN (Reason: unknown) Adequate Ventilation) Qty: 8.5 0RF (unknown) (no (unknown) (unknown) 1 tab PO Q6H PRN (units (unknown) date) (Reason: pain) Qty: unknown) 10 0RF (unknown) (no (unknown) (unknown) 18:50 03/24/22 (units (unknown) date) unknown) (unknown) (no (unknown) (unknown) 19:09 19:40 19:40 (units (unknown) date) unknown) (unknown) (no (unknown) (unknown) 19:40 19:40 19:40 (units (unknown) date) unknown) (unknown) (no (unknown) (unknown) 19:45 03/24/22 (units (unknown) date) unknown) (unknown) (no (unknown) (unknown) 2 puff inhalation (units (unknown) date) BID Qty: 12 2RF unknown) (unknown) (no (unknown) (unknown) 20:30 (units (unkno wn) date) unknown) (unknown) (no (unknown) (unknown) 20:31 03/24/22 (units (unknown) date) unknown) (unknown) (no (unknown) (unknown) 21:00 (units (unkno wn) date) unknown) (unknown) (no (unknown) (unknown) 21:38 (units (unkno wn) date) unknown) (unknown) (no (unknown) (unknown) 4 mg PO QID PRN (units (unknown) date) (Reason: nausea and unknown) vomiting) Qty: 14 2RF (unknown) (no (unknown) (unknown) ALT (<35) IU/L (units (unknown) date) unknown) (unknown) (no (unknown) (unknown) ALT 22 (<35) IU/L (units (unknown) date) unknown) (unknown) (no (unknown) (unknown) APTT (26-36) (units (u nknown) date) SECONDS unknown) (unknown) (no (unknown) (unknown) APTT 27 (26-36) (units (unknown) date) SECONDS unknown) (unknown) (no (unknown) (unknown) AST (14-36) IU/L (units (unknown) date) unknown) (unknown) (no (unknown) (unknown) AST 28 (14-36) (units (unknown) date) IU/L unknown) (unknown) (no (unknown) (unknown) Acetaminophen (units ( unknown) date) (Acetaminophen 325 unknown) Mg Tablet) 975 mg PO NOW ONE (unknown) (no (unknown) (unknown) Admin: 03/24/22 (units (unknown) date) 19:52 Dose: 1,000 unknown) mls/hr (unknown) (no (unknown) (unknown) Advair HFA 230-21 (units (unknown) date) mcg/actuation HFA unknown) aerosol inhaler (unknown) (no (unknown) (unknown) Age/Sex: 36 / F (units (unknown) date) unknown) (unknown) (no (unknown) (unknown) Albumin (3.5-5.0) (units (unknown) date) g/dL unknown) (unknown) (no (unknown) (unknown) Albumin 4.3 (units (un known) date) (3.5-5.0) g/dL unknown) (unknown) (no (unknown) (unknown) Albumin/Globulin (units (unknown) date) Ratio (1.0-2.8) unknown) (unknown) (no (unknown) (unknown) Albumin/Globulin (units (unknown) date) Ratio 1.4 (1.0-2.8) unknown) (unknown) (no (unknown) (unknown) Alkaline (units (unkno wn) date) Phosphatase unknown) (38-126) U/L (unknown) (no (unknown) (unknown) Alkaline (units (unkno wn) date) Phosphatase 46 unknown) (38-126) U/L (unknown) (no (unknown) (unknown) Allergies (units (unkn own) date) unknown) (unknown) (no (unknown) (unknown) Allergy/AdvReac (units (unknown) date) Type Severity unknown) Reaction Status Date / Time (unknown) (no (unknown) (unknown) Anxiety (units (unkno wn) date) unknown) (unknown) (no (unknown) (unknown) Asthma (units (unkno wn) date) unknown) (unknown) (no (unknown) (unknown) BUN (7-17) mg/dL (units (unknown) date) unknown) (unknown) (no (unknown) (unknown) BUN 12 (7-17) (units ( unknown) date) mg/dL unknown) (unknown) (no (unknown) (unknown) BUN/Creatinine (units (unknown) date) Ratio (6-22) unknown) (unknown) (no (unknown) (unknown) BUN/Creatinine (units (unknown) date) Ratio 16.7 (6-22) unknown) (unknown) (no (unknown) (unknown) Baso # (Auto) (units ( unknown) date) (0-100) /uL unknown) (unknown) (no (unknown) (unknown) Baso # (Auto) 0 (units (unknown) date) (0-100) /uL unknown) (unknown) (no (unknown) (unknown) Baso % (Auto) (units ( unknown) date) (0-2) % unknown) (unknown) (no (unknown) (unknown) Baso % (Auto) 0.3 (units (unknown) date) (0-2) % unknown) (unknown) (no (unknown) (unknown) Bedside Urine (units ( unknown) date) Bilirubin - unknown) Negative (unknown) (no (unknown) (unknown) Bedside Urine (units ( unknown) date) Glucose Negative unknown) (unknown) (no (unknown) (unknown) Bedside Urine (units ( unknown) date) Ketone - Negative unknown) (unknown) (no (unknown) (unknown) Bedside Urine (units ( unknown) date) Leukocytes - unknown) Negative (unknown) (no (unknown) (unknown) Bedside Urine (units ( unknown) date) Nitrite - Negative unknown) (unknown) (no (unknown) (unknown) Bedside Urine (units ( unknown) date) Occult Blood - unknown) Negative (unknown) (no (unknown) (unknown) Bedside Urine (units ( unknown) date) Protein - Negative unknown) (unknown) (no (unknown) (unknown) Bedside Urine (units ( unknown) date) Urobilinogen - unknown) Negative (unknown) (no (unknown) (unknown) Bedside Urine pH (units (unknown) date) 6.5 unknown) (unknown) (no (unknown) (unknown) Blood Pressure (units (unknown) date) 03/24/22 unknown) 18:50 (unknown) (no (unknown) (unknown) Blood Pressure (units (unknown) date) 118/73 118/73 unknown) (unknown) (no (unknown) (unknown) Blood Pressure (units (unknown) date) unknown) (unknown) (no (unknown) (unknown) CK-MB (CK-2) Rel (units (unknown) date) Index TNP unknown) (unknown) (no (unknown) (unknown) CK-MB (CK-2) Rel (units (unknown) date) Index unknown) (unknown) (no (unknown) (unknown) CK-MB (CK-2) TNP (units (unknown) date) unknown) (unknown) (no (unknown) (unknown) CK-MB (CK-2) (units (u nknown) date) unknown) (unknown) (no (unknown) (unknown) CT head/brain wo (units (unknown) date) con Stat unknown) (unknown) (no (unknown) (unknown) Calcium (8.4-10.2) (units (unknown) date) mg/dL unknown) (unknown) (no (unknown) (unknown) Calcium 8.5 (units (un known) date) (8.4-10.2) mg/dL unknown) (unknown) (no (unknown) (unknown) Carbon Dioxide (units (unknown) date) (22-32) mmol/L unknown) (unknown) (no (unknown) (unknown) Carbon Dioxide 24 (units (unknown) date) (22-32) mmol/L unknown) (unknown) (no (unknown) (unknown) Chief Complaint: (units (unknown) date) Headache unknown) (unknown) (no (unknown) (unknown) Chloride (98-107) (units (unknown) date) mmol/L unknown) (unknown) (no (unknown) (unknown) Chloride 103 (units (u nknown) date) (98-107) mmol/L unknown) (unknown) (no (unknown) (unknown) Complete Blood (units (unknown) date) Count AUTO DIFF unknown) Stat (unknown) (no (unknown) (unknown) Comprehensive (units ( unknown) date) Metabolic Panel unknown) Stat (unknown) (no (unknown) (unknown) Course (units (unkno wn) date) unknown) (unknown) (no (unknown) (unknown) Covid-19 + FLU A/B (units (unknown) date) + RSV - PCR Stat unknown) (unknown) (no (unknown) (unknown) Creatinine (units (unk nown) date) (0.52-1.04) mg/dL unknown) (unknown) (no (unknown) (unknown) Creatinine 0.72 (units (unknown) date) (0.52-1.04) mg/dL unknown) (unknown) (no (unknown) (unknown) : 1985 (units (unknown) date) Acct:[id number] unknown) (unknown) (no (unknown) (unknown) Date of Service: (units (unknown) date) 03/24/22 unknown) (unknown) (no (unknown) (unknown) Departure (units (unkn own) date) unknown) (unknown) (no (unknown) (unknown) Depression (units (unk nown) date) unknown) (unknown) (no (unknown) (unknown) Discharge Plan (units (unknown) date) unknown) (unknown) (no (unknown) (unknown) Discontinued (units (u nknown) date) Medications unknown) (unknown) (no (unknown) (unknown) Documented By: BS (units (unknown) date) unknown) (unknown) (no (unknown) (unknown) Documented By: GC (units (unknown) date) unknown) (unknown) (no (unknown) (unknown) ED Orders (units (unkn own) date) unknown) (unknown) (no (unknown) (unknown) EKG-12 Lead Stat (units (unknown) date) unknown) (unknown) (no (unknown) (unknown) ER Physician: (units ( unknown) date) Danita Vila D.O. unknown) (unknown) (no (unknown) (unknown) Emergency Report (units (unknown) date) unknown) (unknown) (no (unknown) (unknown) Eos # (Auto) (units (u nknown) date) (0-450) /uL unknown) (unknown) (no (unknown) (unknown) Eos # (Auto) 0 (units (unknown) date) (0-450) /uL unknown) (unknown) (no (unknown) (unknown) Eos % (Auto) (2-4) (units (unknown) date) % unknown) (unknown) (no (unknown) (unknown) Eos % (Auto) 0.1 L (units (unknown) date) (2-4) % unknown) (unknown) (no (unknown) (unknown) Esterase (units (unkno wn) date) unknown) (unknown) (no (unknown) (unknown) Estimated GFR > 60 (units (unknown) date) (>60) mL/min unknown) (unknown) (no (unknown) (unknown) Estimated GFR (units ( unknown) date) (>60) mL/min unknown) (unknown) (no (unknown) (unknown) Exam (units (unkno wn) date) unknown) (unknown) (no (unknown) (unknown) General (units (unkno wn) date) unknown) (unknown) (no (unknown) (unknown) Globulin (1.7-4.1) (units (unknown) date) g/dL unknown) (unknown) (no (unknown) (unknown) Globulin 3.1 (units (u nknown) date) (1.7-4.1) g/dL unknown) (unknown) (no (unknown) (unknown) Glucose (70-100) (units (unknown) date) mg/dL unknown) (unknown) (no (unknown) (unknown) Glucose 147 H (units ( unknown) date) (70-100) mg/dL unknown) (unknown) (no (unknown) (unknown) H/O exploratory (units (unknown) date) laparotomy unknown) (unknown) (no (unknown) (unknown) H/O left knee (units ( unknown) date) surgery unknown) (unknown) (no (unknown) (unknown) HFA inhaler (units (un known) date) (Advair HFA) unknown) (unknown) (no (unknown) (unknown) HPI - Headache (units (unknown) date) unknown) (unknown) (no (unknown) (unknown) Hct (36-46) % (units ( unknown) date) unknown) (unknown) (no (unknown) (unknown) Hct 35.7 L (36-46) (units (unknown) date) % unknown) (unknown) (no (unknown) (unknown) Hgb (12.0-16.0) (units (unknown) date) g/dL unknown) (unknown) (no (unknown) (unknown) Hgb 12.1 (units (unkno wn) date) (12.0-16.0) g/dL unknown) (unknown) (no (unknown) (unknown) History of open (units (unknown) date) heart surgery unknown) (unknown) (no (unknown) (unknown) History of surgery (units (unknown) date) unknown) (unknown) (no (unknown) (unknown) INR (0.9-1.3) (units ( unknown) date) unknown) (unknown) (no (unknown) (unknown) INR 1.0 (0.9-1.3) (units (unknown) date) unknown) (unknown) (no (unknown) (unknown) Influenza A (units (un known) date) (RT-PCR) (NEGATIVE) unknown) (unknown) (no (unknown) (unknown) Influenza A (units (un known) date) (RT-PCR) Flu a unknown) negative (NEGATIVE) (unknown) (no (unknown) (unknown) Influenza B (units (un known) date) (RT-PCR) (NEGATIVE) unknown) (unknown) (no (unknown) (unknown) Influenza B (units (un known) date) (RT-PCR) Flu b unknown) negative (NEGATIVE) (unknown) (no (unknown) (unknown) Initial Vital (units ( unknown) date) Signs unknown) (unknown) (no (unknown) (unknown) Initial Vital (units ( unknown) date) Signs: unknown) (unknown) (no (unknown) (unknown) [facility] (units (unknown) date) [address] unknown) [place] [address] (unknown) (no (unknown) (unknown) Lab Data (units (unkno wn) date) unknown) (unknown) (no (unknown) (unknown) Lab Results (units (un known) date) unknown) (unknown) (no (unknown) (unknown) Labs: (units (unkno wn) date) unknown) (unknown) (no (unknown) (unknown) Lactate (0.7-2.1) (units (unknown) date) mmol/L unknown) (unknown) (no (unknown) (unknown) Lactate (Lactic (units (unknown) date) Acid) Stat unknown) (unknown) (no (unknown) (unknown) Lactate 1.5 (units (un known) date) (0.7-2.1) mmol/L unknown) (unknown) (no (unknown) (unknown) Last Admin: (units (un known) date) 03/24/22 19:52 unknown) Dose: 975 mg (unknown) (no (unknown) (unknown) Last Admin: (units (un known) date) 03/24/22 21:09 unknown) Dose: 2 mg (unknown) (no (unknown) (unknown) Last Admin: (units (un known) date) 03/24/22 21:09 unknown) Dose: 4 mg (unknown) (no (unknown) (unknown) Last Infusion: (units (unknown) date) 03/24/22 21:09 unknown) Dose: 0 mls/hr (unknown) (no (unknown) (unknown) Lipase (23-300) (units (unknown) date) U/L unknown) (unknown) (no (unknown) (unknown) Lipase 341 H (units (u nknown) date) (23-300) U/L unknown) (unknown) (no (unknown) (unknown) Lipase Stat (units (un known) date) unknown) (unknown) (no (unknown) (unknown) Lymph # (Auto) (units (unknown) date) (4916-0138) /uL unknown) (unknown) (no (unknown) (unknown) Lymph # (Auto) 500 (units (unknown) date) L (4971-6491) /uL unknown) (unknown) (no (unknown) (unknown) Lymph % (Auto) (units (unknown) date) (25-40) % unknown) (unknown) (no (unknown) (unknown) Lymph % (Auto) 7.4 (units (unknown) date) L (25-40) % unknown) (unknown) (no (unknown) (unknown) [id number] (units (unk nown) date) unknown) (unknown) (no (unknown) (unknown) MCH (26-34) PG (units (unknown) date) unknown) (unknown) (no (unknown) (unknown) MCH 30.6 (26-34) (units (unknown) date) PG unknown) (unknown) (no (unknown) (unknown) MCHC (30-36) % (units (unknown) date) unknown) (unknown) (no (unknown) (unknown) MCHC 34.0 (30-36) (units (unknown) date) % unknown) (unknown) (no (unknown) (unknown) MCV (80-100) fL (units (unknown) date) unknown) (unknown) (no (unknown) (unknown) MCV 90.1 (80-100) (units (unknown) date) fL unknown) (unknown) (no (unknown) (unknown) MDM - Headache (units (unknown) date) unknown) (unknown) (no (unknown) (unknown) Magnesium (units (unkn own) date) (1.6-2.3) mg/dL unknown) (unknown) (no (unknown) (unknown) Magnesium 1.8 (units ( unknown) date) (1.6-2.3) mg/dL unknown) (unknown) (no (unknown) (unknown) Magnesium Stat (units (unknown) date) unknown) (unknown) (no (unknown) (unknown) Medical History (units (unknown) date) (Updated 03/20/22 @ unknown) 00:00 by ) (unknown) (no (unknown) (unknown) Medication (units (unk nown) date) Instructions unknown) Recorded (unknown) (no (unknown) (unknown) Mild persistent (units (unknown) date) asthma unknown) (unknown) (no (unknown) (unknown) Mode of arrival: (units (unknown) date) Ambulatory unknown) (unknown) (no (unknown) (unknown) [place] # (Auto) (units ( unknown) date) (0-900) /uL unknown) (unknown) (no (unknown) (unknown) [place] # (Auto) 400 (units (unknown) date) (0-900) /uL unknown) (unknown) (no (unknown) (unknown) [place] % (Auto) (units ( unknown) date) (3-14) % unknown) (unknown) (no (unknown) (unknown) [place] % (Auto) 6.1 (units (unknown) date) (3-14) % unknown) (unknown) (no (unknown) (unknown) Morphine Sulfate (units (unknown) date) (Morphine 2 Mg/Ml unknown) Inj) 2 mg IV NOW ONE (unknown) (no (unknown) (unknown) Neut # (Auto) (units ( unknown) date) (0466-4165) /uL unknown) (unknown) (no (unknown) (unknown) Neut # (Auto) 6200 (units (unknown) date) (2966-3059) /uL unknown) (unknown) (no (unknown) (unknown) Neut % (Auto) (units ( unknown) date) (50-75) % unknown) (unknown) (no (unknown) (unknown) Neut % (Auto) 86.1 (units (unknown) date) H (50-75) % unknown) (unknown) (no (unknown) (unknown) No Action (units (unkn own) date) unknown) (unknown) (no (unknown) (unknown) Ondansetron HCl (units (unknown) date) (Ondansetron 4 Mg/2 unknown) Ml Inj) 4 mg IV NOW ONE (unknown) (no (unknown) (unknown) Ordered: (units (unkno wn) date) unknown) (unknown) (no (unknown) (unknown) Orders (units (unkno wn) date) unknown) (unknown) (no (unknown) (unknown) Oxygen Delivery (units (unknown) date) Method 03/24/22 unknown) 18:50 (unknown) (no (unknown) (unknown) Oxygen Delivery (units (unknown) date) Method Room Air unknown) Room Air (unknown) (no (unknown) (unknown) Oxygen Delivery (units (unknown) date) Method Room Air unknown) (unknown) (no (unknown) (unknown) PT (10.1-12.7) (units (unknown) date) SECONDS unknown) (unknown) (no (unknown) (unknown) PT 11.8 (units (unkno wn) date) (10.1-12.7) SECONDS unknown) (unknown) (no (unknown) (unknown) Partial (units (unkno wn) date) Thromboplastin Time unknown) Stat (unknown) (no (unknown) (unknown) Patient History (units (unknown) date) unknown) (unknown) (no (unknown) (unknown) Patient: (units (unkno wn) date) Carmina Castillo Kenneth unknown) MR#: (unknown) (no (unknown) (unknown) Penicillins (units (un known) date) Allergy unknown) Intermediate Rash Verified 03/24/22 18:50 (unknown) (no (unknown) (unknown) Pertussis Vaccines (units (unknown) date) Allergy Unknown unknown) Seizure Verified 03/24/22 18:50 (unknown) (no (unknown) (unknown) Plt Count (units (unkn own) date) (150-400) X103/uL unknown) (unknown) (no (unknown) (unknown) Plt Count 232 (units ( unknown) date) (150-400) X103/uL unknown) (unknown) (no (unknown) (unknown) Potassium (units (unkn own) date) (3.4-5.1) mmol/L unknown) (unknown) (no (unknown) (unknown) Potassium 3.2 L (units (unknown) date) (3.4-5.1) mmol/L unknown) (unknown) (no (unknown) (unknown) Prescriptions: (units (unknown) date) unknown) (unknown) (no (unknown) (unknown) Previous Rx's (units ( unknown) date) unknown) (unknown) (no (unknown) (unknown) Procalcitonin (units ( unknown) date) (<0.5) ng/mL unknown) (unknown) (no (unknown) (unknown) Procalcitonin 0.14 (units (unknown) date) (<0.5) ng/mL unknown) (unknown) (no (unknown) (unknown) Procalcitonin Stat (units (unknown) date) unknown) (unknown) (no (unknown) (unknown) Prothrombin Time (units (unknown) date) INR Stat unknown) (unknown) (no (unknown) (unknown) Pulse Oximetry 100 (units (unknown) date) 98 unknown) (unknown) (no (unknown) (unknown) Pulse Oximetry 97 (units (unknown) date) 03/24/22 18:50 unknown) (unknown) (no (unknown) (unknown) Pulse Oximetry 97 (units (unknown) date) 99 unknown) (unknown) (no (unknown) (unknown) Pulse Rate 63 77 (units (unknown) date) unknown) (unknown) (no (unknown) (unknown) Pulse Rate 70 (units ( unknown) date) 03/24/22 18:50 unknown) (unknown) (no (unknown) (unknown) Pulse Rate 70 78 (units (unknown) date) unknown) (unknown) (no (unknown) (unknown) RBC (4.0-5.2) (units ( unknown) date) X106/uL unknown) (unknown) (no (unknown) (unknown) RBC 3.96 L (units (unk nown) date) (4.0-5.2) X106/uL unknown) (unknown) (no (unknown) (unknown) RDW (11.6-14.8) % (units (unknown) date) unknown) (unknown) (no (unknown) (unknown) RDW 12.2 (units (unkno wn) date) (11.6-14.8) % unknown) (unknown) (no (unknown) (unknown) RSV (PCR) (units (unkn own) date) (Negative) unknown) (unknown) (no (unknown) (unknown) RSV (PCR) Negative (units (unknown) date) (Negative) unknown) (unknown) (no (unknown) (unknown) Referrals: (units (unk nown) date) unknown) (unknown) (no (unknown) (unknown) Related Data (units (u nknown) date) unknown) (unknown) (no (unknown) (unknown) Respiratory Rate (units (unknown) date) 20 03/24/22 18:50 unknown) (unknown) (no (unknown) (unknown) Respiratory Rate (units (unknown) date) 20 19 unknown) (unknown) (no (unknown) (unknown) Respiratory Rate (units (unknown) date) 22 unknown) (unknown) (no (unknown) (unknown) Wes Herrera ARNP (units (unknown) date) [Primary Care unknown) Provider] (unknown) (no (unknown) (unknown) S/P laparoscopic (units (unknown) date) supracervical unknown) hysterectomy (04/04/18) (unknown) (no (unknown) (unknown) SARS-CoV-2 (PCR) (units (unknown) date) (Negative) unknown) (unknown) (no (unknown) (unknown) SARS-CoV-2 (PCR) (units (unknown) date) Negative (Negative) unknown) (unknown) (no (unknown) (unknown) Signed By: (units (unk nown) date) unknown) (unknown) (no (unknown) (unknown) Smoking Status: (units (unknown) date) Former smoker unknown) (unknown) (no (unknown) (unknown) Social History (units (unknown) date) (Reviewed 03/05/22 unknown) @ 11:22 by Danita Vila DO) (unknown) (no (unknown) (unknown) Sodium (137-145) (units (unknown) date) mmol/L unknown) (unknown) (no (unknown) (unknown) Sodium 138 (units (unk nown) date) (137-145) mmol/L unknown) (unknown) (no (unknown) (unknown) Sodium Chloride (units (unknown) date) (Normal Saline unknown) 0.9%) 1,000 mls @ 1,000 mls/hr IV BOLUS ONE (unknown) (no (unknown) (unknown) Stated Complaint: (units (unknown) date) headache, back unknown) pain, L sided chest pain, body pain (unknown) (no (unknown) (unknown) Stop: 03/24/22 (units (unknown) date) 19:21 unknown) (unknown) (no (unknown) (unknown) Stop: 03/24/22 (units (unknown) date) 20:16 unknown) (unknown) (no (unknown) (unknown) Stop: 03/24/22 (units (unknown) date) 20:45 unknown) (unknown) (no (unknown) (unknown) Substance Use (units ( unknown) date) Type: marijuana unknown) (unknown) (no (unknown) (unknown) Surgical History (units (unknown) date) (Reviewed 03/18/22 unknown) @ 11:21 by TYLER Mckeon) (unknown) (no (unknown) (unknown) Temperature 98.4 F (units (unknown) date) 03/24/22 18:50 unknown) (unknown) (no (unknown) (unknown) Temperature 98.4 F (units (unknown) date) unknown) (unknown) (no (unknown) (unknown) Temperature (units (un known) date) unknown) (unknown) (no (unknown) (unknown) Time Seen by (units (u nknown) date) Provider: 03/24/22 unknown) 19:17 (unknown) (no (unknown) (unknown) Total Bilirubin (units (unknown) date) (0.2-1.3) mg/dL unknown) (unknown) (no (unknown) (unknown) Total Bilirubin (units (unknown) date) 0.5 (0.2-1.3) mg/dL unknown) (unknown) (no (unknown) (unknown) Total Creatine (units (unknown) date) Kinase (30-135) U/L unknown) (unknown) (no (unknown) (unknown) Total Creatine (units (unknown) date) Kinase 91 (30-135) unknown) U/L (unknown) (no (unknown) (unknown) Total Protein (units ( unknown) date) (6.3-8.2) g/dL unknown) (unknown) (no (unknown) (unknown) Total Protein 7.4 (units (unknown) date) (6.3-8.2) g/dL unknown) (unknown) (no (unknown) (unknown) Trop I [Troponin (units (unknown) date) I] Stat unknown) (unknown) (no (unknown) (unknown) Troponin + CK (units ( unknown) date) Cardiac Panel Stat unknown) (unknown) (no (unknown) (unknown) Troponin I (units (unk nown) date) (0.01-0.034) ng/mL unknown) (unknown) (no (unknown) (unknown) Troponin I 0.016 (units (unknown) date) (0.01-0.034) ng/mL unknown) (unknown) (no (unknown) (unknown) Troponin I 0.018 (units (unknown) date) (0.01-0.034) ng/mL unknown) (unknown) (no (unknown) (unknown) Upset (units (unkno wn) date) unknown) (unknown) (no (unknown) (unknown) Urine Dip (units (unkn own) date) unknown) (unknown) (no (unknown) (unknown) Urine Specific (units (unknown) date) Victor 1.030 unknown) (unknown) (no (unknown) (unknown) Vital Signs - 8 hr (units (unknown) date) unknown) (unknown) (no (unknown) (unknown) Vital Signs (units (un known) date) unknown) (unknown) (no (unknown) (unknown) Vital signs: (units (u nknown) date) unknown) (unknown) (no (unknown) (unknown) WBC (4.5-11.0) (units (unknown) date) X103/uL unknown) (unknown) (no (unknown) (unknown) WBC 7.2 (4.5-11.0) (units (unknown) date) X103/uL unknown) (unknown) (no (unknown) (unknown) XR chest 1V Stat (units (unknown) date) unknown) (unknown) (no (unknown) (unknown) [Embedded Image (units (unknown) date) Not Available] unknown) (unknown) (no (unknown) (unknown) [PERTUSSIS (units (unk nown) date) VACCINES] unknown) (unknown) (no (unknown) (unknown) aerosol inhaler (units (unknown) date) (ProAir HFA) unknown) Ventilation #8.5 grams (unknown) (no (unknown) (unknown) albuterol sulfate (units (unknown) date) 90 mcg/actuation 1 unknown) puff inhalation Q6H PRN Adequate 03/08/22 (unknown) (no (unknown) (unknown) albuterol sulfate (units (unknown) date) [ProAir HFA] 90 unknown) mcg/actuation HFA aerosol inhaler (unknown) (no (unknown) (unknown) alcohol intake (units (unknown) date) frequency: 0-2 unknown) drinks per day (unknown) (no (unknown) (unknown) amoxicillin (units (un known) date) Allergy unknown) Intermediate Rash, Verified 03/24/22 18:50 (unknown) (no (unknown) (unknown) azithromycin (units (u nknown) date) Allergy unknown) Intermediate Gastrointestinal Verified 03/24/22 18:50 (unknown) (no (unknown) (unknown) ciprofloxacin (units ( unknown) date) Allergy unknown) Intermediate Gastrointestinal Verified 03/24/22 18:50 (unknown) (no (unknown) (unknown) fluticasone (units (un known) date) propionate 230 2 unknown) puff inhalation BID #12 grams 03/13/22 (unknown) (no (unknown) (unknown) gluten AdvReac (units (unknown) date) Mild Stomach unknown) Verified 03/24/22 18:50 (unknown) (no (unknown) (unknown) headache (units (unkno wn) date) unknown) (unknown) (no (unknown) (unknown) household members: (units (unknown) date) spouse and children unknown) (unknown) (no (unknown) (unknown) hydrocodone 5 (units ( unknown) date) mg-acetaminophen unknown) 325 1 tab PO Q6H PRN pain #10 tabs 03/05/22 (unknown) (no (unknown) (unknown) hydrocodone-acetam (units (unknown) date) inophen 5-325 mg unknown) tablet (unknown) (no (unknown) (unknown) hydromorphone (units ( unknown) date) Allergy Mild unknown) Flushing Verified 03/24/22 18:50 (unknown) (no (unknown) (unknown) ibuprofen Allergy (units (unknown) date) Mild Kidney unknown) Verified 03/24/22 18:50 (unknown) (no (unknown) (unknown) infection (units (unkn own) date) unknown) (unknown) (no (unknown) (unknown) mcg-salmeterol 21 (units (unknown) date) mcg/actuation unknown) (unknown) (no (unknown) (unknown) mg tablet (units (unkn own) date) unknown) (unknown) (no (unknown) (unknown) nausea, (units (unkno wn) date) unknown) (unknown) (no (unknown) (unknown) nickel AdvReac (units (unknown) date) Mild Irritation/ unknown) Verified 03/24/22 18:50 (unknown) (no (unknown) (unknown) ondansetron 4 mg (units (unknown) date) disintegrating 4 mg unknown) PO QID PRN nausea and 04/05/18 (unknown) (no (unknown) (unknown) ondansetron 4 mg (units (unknown) date) tablet,disintegrati unknown) ng (unknown) (no (unknown) (unknown) pain, (units (unkno wn) date) unknown) (unknown) (no (unknown) (unknown) redness (units (unkno wn) date) unknown) (unknown) (no (unknown) (unknown) tablet vomiting (units (unknown) date) #14 tabs unknown) (unknown) (no (unknown) (unknown) throat was (units (unk nown) date) unknown) (unknown) (no (unknown) (unknown) tingly (units (unkno wn) date) unknown) Result panel 611 (unknown) (no (unknown) (unknown) (no value) (units (unk nown) date) unknown) (unknown) (no (unknown) (unknown) 03/24/22 03/24/22 (units (unknown) date) 03/24/22 unknown) Range/Units (unknown) (no (unknown) (unknown) 03/24/22 19:09 (units (unknown) date) unknown) (unknown) (no (unknown) (unknown) 03/24/22 19:16 (units (unknown) date) unknown) (unknown) (no (unknown) (unknown) 03/24/22 19:40 (units (unknown) date) unknown) (unknown) (no (unknown) (unknown) 03/24/22 20:44 (units (unknown) date) unknown) (unknown) (no (unknown) (unknown) 03/24/22 21:38 (units (unknown) date) unknown) (unknown) (no (unknown) (unknown) 03/24/22 (units (unkno wn) date) Range/Units unknown) (unknown) (no (unknown) (unknown) 03/24/22 (units (unkno wn) date) unknown) (unknown) (no (unknown) (unknown) 1 puff INHALATION (units (unknown) date) Q6H PRN (Reason: unknown) Adequate Ventilation) Qty: 8.5 0RF (unknown) (no (unknown) (unknown) 1 tab PO Q6H PRN (units (unknown) date) (Reason: pain) Qty: unknown) 10 0RF (unknown) (no (unknown) (unknown) 18:50 03/24/22 (units (unknown) date) unknown) (unknown) (no (unknown) (unknown) 19:09 19:40 19:40 (units (unknown) date) unknown) (unknown) (no (unknown) (unknown) 19:40 19:40 19:40 (units (unknown) date) unknown) (unknown) (no (unknown) (unknown) 19:45 03/24/22 (units (unknown) date) unknown) (unknown) (no (unknown) (unknown) 2 puff inhalation (units (unknown) date) BID Qty: 12 2RF unknown) (unknown) (no (unknown) (unknown) 20:30 (units (unkno wn) date) unknown) (unknown) (no (unknown) (unknown) 20:31 03/24/22 (units (unknown) date) unknown) (unknown) (no (unknown) (unknown) 21:00 (units (unkno wn) date) unknown) (unknown) (no (unknown) (unknown) 21:38 (units (unkno wn) date) unknown) (unknown) (no (unknown) (unknown) 4 mg PO QID PRN (units (unknown) date) (Reason: nausea and unknown) vomiting) Qty: 14 2RF (unknown) (no (unknown) (unknown) ? (units (unkno wn) date) unknown) (unknown) (no (unknown) (unknown) ABDOMEN: Soft, (units (unknown) date) nontender. unknown) Normoactive bowel sounds all 4 quadrants. No (unknown) (no (unknown) (unknown) ALT (<35) IU/L (units (unknown) date) unknown) (unknown) (no (unknown) (unknown) ALT 22 (<35) IU/L (units (unknown) date) unknown) (unknown) (no (unknown) (unknown) APTT (26-36) (units (u nknown) date) SECONDS unknown) (unknown) (no (unknown) (unknown) APTT 27 (26-36) (units (unknown) date) SECONDS unknown) (unknown) (no (unknown) (unknown) AST (14-36) IU/L (units (unknown) date) unknown) (unknown) (no (unknown) (unknown) AST 28 (14-36) (units (unknown) date) IU/L unknown) (unknown) (no (unknown) (unknown) Accession Number: (units (unknown) date) [id number] ?? unknown) (unknown) (no (unknown) (unknown) Acct:[id number] (units (unknown) date) unknown) (unknown) (no (unknown) (unknown) Acetaminophen (units ( unknown) date) (Acetaminophen 325 unknown) Mg Tablet) 975 mg PO NOW ONE (unknown) (no (unknown) (unknown) Admin: 03/24/22 (units (unknown) date) 19:52 Dose: 1,000 unknown) mls/hr (unknown) (no (unknown) (unknown) Advair HFA 230-21 (units (unknown) date) mcg/actuation HFA unknown) aerosol inhaler (unknown) (no (unknown) (unknown) Age/Sex: 36 / F (units (unknown) date) unknown) (unknown) (no (unknown) (unknown) Albumin (3.5-5.0) (units (unknown) date) g/dL unknown) (unknown) (no (unknown) (unknown) Albumin 4.3 (units (un known) date) (3.5-5.0) g/dL unknown) (unknown) (no (unknown) (unknown) Albumin/Globulin (units (unknown) date) Ratio (1.0-2.8) unknown) (unknown) (no (unknown) (unknown) Albumin/Globulin (units (unknown) date) Ratio 1.4 (1.0-2.8) unknown) (unknown) (no (unknown) (unknown) Alkaline (units (unkno wn) date) Phosphatase unknown) (38-126) U/L (unknown) (no (unknown) (unknown) Alkaline (units (unkno wn) date) Phosphatase 46 unknown) (38-126) U/L (unknown) (no (unknown) (unknown) Allergies (units (unkn own) date) unknown) (unknown) (no (unknown) (unknown) Allergy/AdvReac (units (unknown) date) Type Severity unknown) Reaction Status Date / Time (unknown) (no (unknown) (unknown) Anxiety (units (unkno wn) date) unknown) (unknown) (no (unknown) (unknown) Approved by: Juarez (units (unknown) date) Jose Fatima on unknown) 03/24/2022 at 21:23 ? (unknown) (no (unknown) (unknown) Asthma (units (unkno wn) date) unknown) (unknown) (no (unknown) (unknown) BUN (7-17) mg/dL (units (unknown) date) unknown) (unknown) (no (unknown) (unknown) BUN 12 (7-17) (units ( unknown) date) mg/dL unknown) (unknown) (no (unknown) (unknown) BUN/Creatinine (units (unknown) date) Ratio (6-22) unknown) (unknown) (no (unknown) (unknown) BUN/Creatinine (units (unknown) date) Ratio 16.7 (6-22) unknown) (unknown) (no (unknown) (unknown) Baso # (Auto) (units ( unknown) date) (0-100) /uL unknown) (unknown) (no (unknown) (unknown) Baso # (Auto) 0 (units (unknown) date) (0-100) /uL unknown) (unknown) (no (unknown) (unknown) Baso % (Auto) (units ( unknown) date) (0-2) % unknown) (unknown) (no (unknown) (unknown) Baso % (Auto) 0.3 (units (unknown) date) (0-2) % unknown) (unknown) (no (unknown) (unknown) Bedside Urine (units ( unknown) date) Bilirubin - unknown) Negative (unknown) (no (unknown) (unknown) Bedside Urine (units ( unknown) date) Glucose Negative unknown) (unknown) (no (unknown) (unknown) Bedside Urine (units ( unknown) date) Ketone - Negative unknown) (unknown) (no (unknown) (unknown) Bedside Urine (units ( unknown) date) Leukocytes - unknown) Negative (unknown) (no (unknown) (unknown) Bedside Urine (units ( unknown) date) Nitrite - Negative unknown) (unknown) (no (unknown) (unknown) Bedside Urine (units ( unknown) date) Occult Blood - unknown) Negative (unknown) (no (unknown) (unknown) Bedside Urine (units ( unknown) date) Protein - Negative unknown) (unknown) (no (unknown) (unknown) Bedside Urine (units ( unknown) date) Urobilinogen - unknown) Negative (unknown) (no (unknown) (unknown) Bedside Urine pH (units (unknown) date) 6.5 unknown) (unknown) (no (unknown) (unknown) Blood Pressure (units (unknown) date) 03/24/22 unknown) 18:50 (unknown) (no (unknown) (unknown) Blood Pressure (units (unknown) date) 118/73 118/73 unknown) (unknown) (no (unknown) (unknown) Blood Pressure (units (unknown) date) unknown) (unknown) (no (unknown) (unknown) Brain:? No midline (units (unknown) date) shift.? No unknown) intracranial masses or hemorrhage.? Luke-white (unknown) (no (unknown) (unknown) CARDIOVASCULAR: (units (unknown) date) Regular rate and unknown) rhythm without murmurs, rubs or gallops. (unknown) (no (unknown) (unknown) CK-MB (CK-2) Rel (units (unknown) date) Index TNP unknown) (unknown) (no (unknown) (unknown) CK-MB (CK-2) Rel (units (unknown) date) Index unknown) (unknown) (no (unknown) (unknown) CK-MB (CK-2) TNP (units (unknown) date) unknown) (unknown) (no (unknown) (unknown) CK-MB (CK-2) (units (u nknown) date) unknown) (unknown) (no (unknown) (unknown) COMPARISON:? None. (units (unknown) date) unknown) (unknown) (no (unknown) (unknown) CSF spaces:? Basal (units (unknown) date) cisterns are unknown) patent.? No extra-axial fluid collections.? (unknown) (no (unknown) (unknown) CT Scan Report (units (unknown) date) unknown) (unknown) (no (unknown) (unknown) CT head/brain wo (units (unknown) date) con Stat unknown) (unknown) (no (unknown) (unknown) CT scan - head: (units (unknown) date) unknown) (unknown) (no (unknown) (unknown) Calcium (8.4-10.2) (units (unknown) date) mg/dL unknown) (unknown) (no (unknown) (unknown) Calcium 8.5 (units (un known) date) (8.4-10.2) mg/dL unknown) (unknown) (no (unknown) (unknown) Carbon Dioxide (units (unknown) date) (22-32) mmol/L unknown) (unknown) (no (unknown) (unknown) Carbon Dioxide 24 (units (unknown) date) (22-32) mmol/L unknown) (unknown) (no (unknown) (unknown) Chief Complaint: (units (unknown) date) Headache unknown) (unknown) (no (unknown) (unknown) Chloride (98-107) (units (unknown) date) mmol/L unknown) (unknown) (no (unknown) (unknown) Chloride 103 (units (u nknown) date) (98-107) mmol/L unknown) (unknown) (no (unknown) (unknown) Complete Blood (units (unknown) date) Count AUTO DIFF unknown) Stat (unknown) (no (unknown) (unknown) Comprehensive (units ( unknown) date) Metabolic Panel unknown) Stat (unknown) (no (unknown) (unknown) Course (units (unkno wn) date) unknown) (unknown) (no (unknown) (unknown) Covid-19 + FLU A/B (units (unknown) date) + RSV - PCR Stat unknown) (unknown) (no (unknown) (unknown) Creatinine (units (unk nown) date) (0.52-1.04) mg/dL unknown) (unknown) (no (unknown) (unknown) Creatinine 0.72 (units (unknown) date) (0.52-1.04) mg/dL unknown) (unknown) (no (unknown) (unknown) : 1985 (units (unknown) date) Acct:[id number] unknown) (unknown) (no (unknown) (unknown) : 1985 (units (unknown) date) unknown) (unknown) (no (unknown) (unknown) Date of Service: (units (unknown) date) 03/24/22 unknown) (unknown) (no (unknown) (unknown) Departure (units (unkn own) date) unknown) (unknown) (no (unknown) (unknown) Depression (units (unk nown) date) unknown) (unknown) (no (unknown) (unknown) Dictated by: Juarez (units (unknown) date) Jose Fatima on unknown) 03/24/2022 at 21:23 ? ? (unknown) (no (unknown) (unknown) Discharge Plan (units (unknown) date) unknown) (unknown) (no (unknown) (unknown) Discontinued (units (u nknown) date) Medications unknown) (unknown) (no (unknown) (unknown) Documented By: BS (units (unknown) date) unknown) (unknown) (no (unknown) (unknown) Documented By: GC (units (unknown) date) unknown) (unknown) (no (unknown) (unknown) ED Orders (units (unkn own) date) unknown) (unknown) (no (unknown) (unknown) EKG-12 Lead Stat (units (unknown) date) unknown) (unknown) (no (unknown) (unknown) ER Physician: (units ( unknown) date) Botnick,Danita D.O. unknown) (unknown) (no (unknown) (unknown) EXTREMITIES: (units (u nknown) date) Normal range of unknown) motion, no clubbing or edema. Neurovascularly (unknown) (no (unknown) (unknown) Emergency Report (units (unknown) date) unknown) (unknown) (no (unknown) (unknown) Eos # (Auto) (units (u nknown) date) (0-450) /uL unknown) (unknown) (no (unknown) (unknown) Eos # (Auto) 0 (units (unknown) date) (0-450) /uL unknown) (unknown) (no (unknown) (unknown) Eos % (Auto) (2-4) (units (unknown) date) % unknown) (unknown) (no (unknown) (unknown) Eos % (Auto) 0.1 L (units (unknown) date) (2-4) % unknown) (unknown) (no (unknown) (unknown) Esterase (units (unkno wn) date) unknown) (unknown) (no (unknown) (unknown) Estimated GFR > 60 (units (unknown) date) (>60) mL/min unknown) (unknown) (no (unknown) (unknown) Estimated GFR (units ( unknown) date) (>60) mL/min unknown) (unknown) (no (unknown) (unknown) Exam (units (unkno wn) date) unknown) (unknown) (no (unknown) (unknown) FINDINGS:? (units (unk nown) date) unknown) (unknown) (no (unknown) (unknown) GENERAL: Thin (units ( unknown) date) 36-year-old female unknown) (unknown) (no (unknown) (unknown) General (units (unkno wn) date) unknown) (unknown) (no (unknown) (unknown) Globulin (1.7-4.1) (units (unknown) date) g/dL unknown) (unknown) (no (unknown) (unknown) Globulin 3.1 (units (u nknown) date) (1.7-4.1) g/dL unknown) (unknown) (no (unknown) (unknown) Glucose (70-100) (units (unknown) date) mg/dL unknown) (unknown) (no (unknown) (unknown) Glucose 147 H (units ( unknown) date) (70-100) mg/dL unknown) (unknown) (no (unknown) (unknown) H/O exploratory (units (unknown) date) laparotomy unknown) (unknown) (no (unknown) (unknown) H/O left knee (units ( unknown) date) surgery unknown) (unknown) (no (unknown) (unknown) HEENT: Head (units (un known) date) atraumatic,EOMI, unknown) pupils reactive, face symmetric, moist mucous (unknown) (no (unknown) (unknown) HFA inhaler (units (un known) date) (Advair HFA) unknown) (unknown) (no (unknown) (unknown) HPI - Headache (units (unknown) date) unknown) (unknown) (no (unknown) (unknown) HPI Narrative: (units (unknown) date) unknown) (unknown) (no (unknown) (unknown) Hct (36-46) % (units ( unknown) date) unknown) (unknown) (no (unknown) (unknown) Hct 35.7 L (36-46) (units (unknown) date) % unknown) (unknown) (no (unknown) (unknown) Hgb (12.0-16.0) (units (unknown) date) g/dL unknown) (unknown) (no (unknown) (unknown) Hgb 12.1 (units (unkno wn) date) (12.0-16.0) g/dL unknown) (unknown) (no (unknown) (unknown) History of Present (units (unknown) date) Illness unknown) (unknown) (no (unknown) (unknown) History of open (units (unknown) date) heart surgery unknown) (unknown) (no (unknown) (unknown) History of surgery (units (unknown) date) unknown) (unknown) (no (unknown) (unknown) IMPRESSION:? (units (u nknown) date) Normal for age, unknown) source of headache is not found. (unknown) (no (unknown) (unknown) INDICATIONS:? (units ( unknown) date) severe headache unknown) (unknown) (no (unknown) (unknown) INR (0.9-1.3) (units ( unknown) date) unknown) (unknown) (no (unknown) (unknown) INR 1.0 (0.9-1.3) (units (unknown) date) unknown) (unknown) (no (unknown) (unknown) Image quality:? (units (unknown) date) Excellent.? unknown) (unknown) (no (unknown) (unknown) Imaging Data (units (u nknown) date) unknown) (unknown) (no (unknown) (unknown) Influenza A (units (un known) date) (RT-PCR) (NEGATIVE) unknown) (unknown) (no (unknown) (unknown) Influenza A (units (un known) date) (RT-PCR) Flu a unknown) negative (NEGATIVE) (unknown) (no (unknown) (unknown) Influenza B (units (un known) date) (RT-PCR) (NEGATIVE) unknown) (unknown) (no (unknown) (unknown) Influenza B (units (un known) date) (RT-PCR) Flu b unknown) negative (NEGATIVE) (unknown) (no (unknown) (unknown) Initial Vital (units ( unknown) date) Signs unknown) (unknown) (no (unknown) (unknown) Initial Vital (units ( unknown) date) Signs: unknown) (unknown) (no (unknown) (unknown) [facility] (units (unknown) date) [address] unknown) [place] [address] (unknown) (no (unknown) (unknown) Lab Data (units (unkno wn) date) unknown) (unknown) (no (unknown) (unknown) Lab Results (units (un known) date) unknown) (unknown) (no (unknown) (unknown) Labs: (units (unkno wn) date) unknown) (unknown) (no (unknown) (unknown) Lactate (0.7-2.1) (units (unknown) date) mmol/L unknown) (unknown) (no (unknown) (unknown) Lactate (Lactic (units (unknown) date) Acid) Stat unknown) (unknown) (no (unknown) (unknown) Lactate 1.5 (units (un known) date) (0.7-2.1) mmol/L unknown) (unknown) (no (unknown) (unknown) Last Admin: (units (un known) date) 03/24/22 19:52 unknown) Dose: 975 mg (unknown) (no (unknown) (unknown) Last Admin: (units (un known) date) 03/24/22 21:09 unknown) Dose: 2 mg (unknown) (no (unknown) (unknown) Last Admin: (units (un known) date) 03/24/22 21:09 unknown) Dose: 4 mg (unknown) (no (unknown) (unknown) Last Infusion: (units (unknown) date) 03/24/22 21:09 unknown) Dose: 0 mls/hr (unknown) (no (unknown) (unknown) Lipase (23-300) (units (unknown) date) U/L unknown) (unknown) (no (unknown) (unknown) Lipase 341 H (units (u nknown) date) (23-300) U/L unknown) (unknown) (no (unknown) (unknown) Lipase Stat (units (un known) date) unknown) (unknown) (no (unknown) (unknown) Loc: ED (units (unkno wn) date) unknown) (unknown) (no (unknown) (unknown) Lymph # (Auto) (units (unknown) date) (2979-9767) /uL unknown) (unknown) (no (unknown) (unknown) Lymph # (Auto) 500 (units (unknown) date) L (7757-1549) /uL unknown) (unknown) (no (unknown) (unknown) Lymph % (Auto) (units (unknown) date) (25-40) % unknown) (unknown) (no (unknown) (unknown) Lymph % (Auto) 7.4 (units (unknown) date) L (25-40) % unknown) (unknown) (no (unknown) (unknown) [id number] (units (unk nown) date) unknown) (unknown) (no (unknown) (unknown) MCH (26-34) PG (units (unknown) date) unknown) (unknown) (no (unknown) (unknown) MCH 30.6 (26-34) (units (unknown) date) PG unknown) (unknown) (no (unknown) (unknown) MCHC (30-36) % (units (unknown) date) unknown) (unknown) (no (unknown) (unknown) MCHC 34.0 (30-36) (units (unknown) date) % unknown) (unknown) (no (unknown) (unknown) MCV (80-100) fL (units (unknown) date) unknown) (unknown) (no (unknown) (unknown) MCV 90.1 (80-100) (units (unknown) date) fL unknown) (unknown) (no (unknown) (unknown) MDM - Headache (units (unknown) date) unknown) (unknown) (no (unknown) (unknown) MR#: [id number] (units (unknown) date) unknown) (unknown) (no (unknown) (unknown) Magnesium (units (unkn own) date) (1.6-2.3) mg/dL unknown) (unknown) (no (unknown) (unknown) Magnesium 1.8 (units ( unknown) date) (1.6-2.3) mg/dL unknown) (unknown) (no (unknown) (unknown) Magnesium Stat (units (unknown) date) unknown) (unknown) (no (unknown) (unknown) Medical History (units (unknown) date) (Reviewed 03/24/22 unknown) @ 22:55 by Danita Vila DO) (unknown) (no (unknown) (unknown) Medication (units (unk nown) date) Instructions unknown) Recorded (unknown) (no (unknown) (unknown) Mild persistent (units (unknown) date) asthma unknown) (unknown) (no (unknown) (unknown) Mode of arrival: (units (unknown) date) Ambulatory unknown) (unknown) (no (unknown) (unknown) [place] # (Auto) (units ( unknown) date) (0-900) /uL unknown) (unknown) (no (unknown) (unknown) [place] # (Auto) 400 (units (unknown) date) (0-900) /uL unknown) (unknown) (no (unknown) (unknown) [place] % (Auto) (units ( unknown) date) (3-14) % unknown) (unknown) (no (unknown) (unknown) [place] % (Auto) 6.1 (units (unknown) date) (3-14) % unknown) (unknown) (no (unknown) (unknown) Morphine Sulfate (units (unknown) date) (Morphine 2 Mg/Ml unknown) Inj) 2 mg IV NOW ONE (unknown) (no (unknown) (unknown) Morphine Sulfate (units (unknown) date) (Morphine 4 Mg/Ml unknown) Inj) 4 mg IV NOW ONE (unknown) (no (unknown) (unknown) NEUROLOGICAL: (units ( unknown) date) Alert and oriented unknown) x4. Swimming Pool Cleaner strength equal bilaterally moving all (unknown) (no (unknown) (unknown) Neut # (Auto) (units ( unknown) date) (3240-4045) /uL unknown) (unknown) (no (unknown) (unknown) Neut # (Auto) 6200 (units (unknown) date) (0937-0729) /uL unknown) (unknown) (no (unknown) (unknown) Neut % (Auto) (units ( unknown) date) (50-75) % unknown) (unknown) (no (unknown) (unknown) Neut % (Auto) 86.1 (units (unknown) date) H (50-75) % unknown) (unknown) (no (unknown) (unknown) No Action (units (unkn own) date) unknown) (unknown) (no (unknown) (unknown) Noncontrast 4.5 mm (units (unknown) date) thick angled axial unknown) sections acquired from the foramen magnum (unknown) (no (unknown) (unknown) Ondansetron HCl (units (unknown) date) (Ondansetron 4 Mg/2 unknown) Ml Inj) 4 mg IV NOW ONE (unknown) (no (unknown) (unknown) Ordered: (units (unkno wn) date) unknown) (unknown) (no (unknown) (unknown) Ordering Provider: (units (unknown) date) Danita Vila D.O. unknown) (unknown) (no (unknown) (unknown) Orders (units (unkno wn) date) unknown) (unknown) (no (unknown) (unknown) Oxygen Delivery (units (unknown) date) Method 03/24/22 unknown) 18:50 (unknown) (no (unknown) (unknown) Oxygen Delivery (units (unknown) date) Method Room Air unknown) Room Air (unknown) (no (unknown) (unknown) Oxygen Delivery (units (unknown) date) Method Room Air unknown) (unknown) (no (unknown) (unknown) PROCEDURE:? CT (units (unknown) date) HEAD/BRAIN WO CON unknown) (unknown) (no (unknown) (unknown) PT (10.1-12.7) (units (unknown) date) SECONDS unknown) (unknown) (no (unknown) (unknown) PT 11.8 (units (unkno wn) date) (10.1-12.7) SECONDS unknown) (unknown) (no (unknown) (unknown) Partial (units (unkno wn) date) Thromboplastin Time unknown) Stat (unknown) (no (unknown) (unknown) Patient History (units (unknown) date) unknown) (unknown) (no (unknown) (unknown) Patient is a (units (u nknown) date) 36-year-old female unknown) currently being worked up for bilateral breast (unknown) (no (unknown) (unknown) Patient: (units (unkno wn) date) Carmina Castillo unknown) MR#: (unknown) (no (unknown) (unknown) Patient: (units (unkno wn) date) Carmina Castillo unknown) (unknown) (no (unknown) (unknown) Penicillins (units (un known) date) Allergy unknown) Intermediate Rash Verified 03/24/22 18:50 (unknown) (no (unknown) (unknown) Pertussis Vaccines (units (unknown) date) Allergy Unknown unknown) Seizure Verified 03/24/22 18:50 (unknown) (no (unknown) (unknown) Plt Count (units (unkn own) date) (150-400) X103/uL unknown) (unknown) (no (unknown) (unknown) Plt Count 232 (units ( unknown) date) (150-400) X103/uL unknown) (unknown) (no (unknown) (unknown) Potassium (units (unkn own) date) (3.4-5.1) mmol/L unknown) (unknown) (no (unknown) (unknown) Potassium 3.2 L (units (unknown) date) (3.4-5.1) mmol/L unknown) (unknown) (no (unknown) (unknown) Prescriptions: (units (unknown) date) unknown) (unknown) (no (unknown) (unknown) Previous Rx's (units ( unknown) date) unknown) (unknown) (no (unknown) (unknown) Procalcitonin (units ( unknown) date) (<0.5) ng/mL unknown) (unknown) (no (unknown) (unknown) Procalcitonin 0.14 (units (unknown) date) (<0.5) ng/mL unknown) (unknown) (no (unknown) (unknown) Procalcitonin Stat (units (unknown) date) unknown) (unknown) (no (unknown) (unknown) Procedure: CT (units ( unknown) date) head/brain wo con unknown) (unknown) (no (unknown) (unknown) Prothrombin Time (units (unknown) date) INR Stat unknown) (unknown) (no (unknown) (unknown) Pulse Oximetry 100 (units (unknown) date) 98 unknown) (unknown) (no (unknown) (unknown) Pulse Oximetry 97 (units (unknown) date) 03/24/22 18:50 unknown) (unknown) (no (unknown) (unknown) Pulse Oximetry 97 (units (unknown) date) 99 unknown) (unknown) (no (unknown) (unknown) Pulse Rate 63 77 (units (unknown) date) unknown) (unknown) (no (unknown) (unknown) Pulse Rate 70 (units ( unknown) date) 03/24/22 18:50 unknown) (unknown) (no (unknown) (unknown) Pulse Rate 70 78 (units (unknown) date) unknown) (unknown) (no (unknown) (unknown) RBC (4.0-5.2) (units ( unknown) date) X106/uL unknown) (unknown) (no (unknown) (unknown) RBC 3.96 L (units (unk nown) date) (4.0-5.2) X106/uL unknown) (unknown) (no (unknown) (unknown) RDW (11.6-14.8) % (units (unknown) date) unknown) (unknown) (no (unknown) (unknown) RDW 12.2 (units (unkno wn) date) (11.6-14.8) % unknown) (unknown) (no (unknown) (unknown) RESPIRATORY: (units (u nknown) date) Breath sounds equal unknown) bilaterally, no wheezes rales or rhonchi. (unknown) (no (unknown) (unknown) ROS Unobtainable: (units (unknown) date) All systems unknown) reviewed + are unremarkable except as noted in HPI (unknown) (no (unknown) (unknown) RSV (PCR) (units (unkn own) date) (Negative) unknown) (unknown) (no (unknown) (unknown) RSV (PCR) Negative (units (unknown) date) (Negative) unknown) (unknown) (no (unknown) (unknown) Radiologist's (units ( unknown) date) Impression: unknown) (unknown) (no (unknown) (unknown) Referrals: (units (unk nown) date) unknown) (unknown) (no (unknown) (unknown) Related Data (units (u nknown) date) unknown) (unknown) (no (unknown) (unknown) Respiratory Rate (units (unknown) date) 20 03/24/22 18:50 unknown) (unknown) (no (unknown) (unknown) Respiratory Rate (units (unknown) date) 20 unknown) (unknown) (no (unknown) (unknown) Respiratory Rate (units (unknown) date) unknown) (unknown) (no (unknown) (unknown) Review of Systems (units (unknown) date) unknown) (unknown) (no (unknown) (unknown) Wes Herrera ARNP (units (unknown) date) [Primary Care unknown) Provider] (unknown) (no (unknown) (unknown) S/P laparoscopic (units (unknown) date) supracervical unknown) hysterectomy (04/04/18) (unknown) (no (unknown) (unknown) SARS-CoV-2 (PCR) (units (unknown) date) (Negative) unknown) (unknown) (no (unknown) (unknown) SARS-CoV-2 (PCR) (units (unknown) date) Negative (Negative) unknown) (unknown) (no (unknown) (unknown) SKIN: Warm, dry, (units (unknown) date) no laceration, no unknown) petechiae, no rashes or lesions. (unknown) (no (unknown) (unknown) Signed By: (units (unk nown) date) unknown) (unknown) (no (unknown) (unknown) Signed (units (unkno wn) date) unknown) (unknown) (no (unknown) (unknown) Sinuses:? (units (unkn own) date) Visualized sinuses unknown) and mastoids are clear.? (unknown) (no (unknown) (unknown) Skull and face:? (units (unknown) date) Calvarium and unknown) visualized facial bones are intact, without (unknown) (no (unknown) (unknown) Smoking Status: (units (unknown) date) Former smoker unknown) (unknown) (no (unknown) (unknown) Social History (units (unknown) date) (Reviewed 03/24/22 unknown) @ 22:55 by Danita Vila DO) (unknown) (no (unknown) (unknown) Sodium (137-145) (units (unknown) date) mmol/L unknown) (unknown) (no (unknown) (unknown) Sodium 138 (units (unk nown) date) (137-145) mmol/L unknown) (unknown) (no (unknown) (unknown) Sodium Chloride (units (unknown) date) (Normal Saline unknown) 0.9%) 1,000 mls @ 1,000 mls/hr IV BOLUS ONE (unknown) (no (unknown) (unknown) Stated Complaint: (units (unknown) date) headache, back unknown) pain, L sided chest pain, body pain (unknown) (no (unknown) (unknown) Stop: 03/24/22 (units (unknown) date) 19:21 unknown) (unknown) (no (unknown) (unknown) Stop: 03/24/22 (units (unknown) date) 20:16 unknown) (unknown) (no (unknown) (unknown) Stop: 03/24/22 (units (unknown) date) 20:45 unknown) (unknown) (no (unknown) (unknown) Stop: 03/24/22 (units (unknown) date) 22:45 unknown) (unknown) (no (unknown) (unknown) Substance Use (units ( unknown) date) Type: marijuana unknown) (unknown) (no (unknown) (unknown) Surgical History (units (unknown) date) (Reviewed 03/24/22 unknown) @ 22:55 by Danita Vila DO) (unknown) (no (unknown) (unknown) TECHNIQUE:? (units (un known) date) unknown) (unknown) (no (unknown) (unknown) Temperature 98.4 F (units (unknown) date) 03/24/22 18:50 unknown) (unknown) (no (unknown) (unknown) Temperature 98.4 F (units (unknown) date) unknown) (unknown) (no (unknown) (unknown) Temperature (units (un known) date) unknown) (unknown) (no (unknown) (unknown) Time Seen by (units (u nknown) date) Provider: 03/24/22 unknown) 19:17 (unknown) (no (unknown) (unknown) Total Bilirubin (units (unknown) date) (0.2-1.3) mg/dL unknown) (unknown) (no (unknown) (unknown) Total Bilirubin (units (unknown) date) 0.5 (0.2-1.3) mg/dL unknown) (unknown) (no (unknown) (unknown) Total Creatine (units (unknown) date) Kinase (30-135) U/L unknown) (unknown) (no (unknown) (unknown) Total Creatine (units (unknown) date) Kinase 91 (30-135) unknown) U/L (unknown) (no (unknown) (unknown) Total Protein (units ( unknown) date) (6.3-8.2) g/dL unknown) (unknown) (no (unknown) (unknown) Total Protein 7.4 (units (unknown) date) (6.3-8.2) g/dL unknown) (unknown) (no (unknown) (unknown) Trop I [Troponin (units (unknown) date) I] Stat unknown) (unknown) (no (unknown) (unknown) Troponin + CK (units ( unknown) date) Cardiac Panel Stat unknown) (unknown) (no (unknown) (unknown) Troponin I (units (unk nown) date) (0.01-0.034) ng/mL unknown) (unknown) (no (unknown) (unknown) Troponin I 0.016 (units (unknown) date) (0.01-0.034) ng/mL unknown) (unknown) (no (unknown) (unknown) Troponin I 0.018 (units (unknown) date) (0.01-0.034) ng/mL unknown) (unknown) (no (unknown) (unknown) Upset (units (unkno wn) date) unknown) (unknown) (no (unknown) (unknown) Urine Dip (units (unkn own) date) unknown) (unknown) (no (unknown) (unknown) Urine Specific (units (unknown) date) Victor 1.030 unknown) (unknown) (no (unknown) (unknown) Ventricles (units (unk nown) date) unknown) (unknown) (no (unknown) (unknown) Vital Signs - 8 hr (units (unknown) date) unknown) (unknown) (no (unknown) (unknown) Vital Signs (units (un known) date) unknown) (unknown) (no (unknown) (unknown) Vital signs: (units (u nknown) date) unknown) (unknown) (no (unknown) (unknown) WBC (4.5-11.0) (units (unknown) date) X103/uL unknown) (unknown) (no (unknown) (unknown) WBC 7.2 (4.5-11.0) (units (unknown) date) X103/uL unknown) (unknown) (no (unknown) (unknown) XR chest 1V Stat (units (unknown) date) unknown) (unknown) (no (unknown) (unknown) [Embedded Image (units (unknown) date) Not Available] unknown) (unknown) (no (unknown) (unknown) [PERTUSSIS (units (unk nown) date) VACCINES] unknown) (unknown) (no (unknown) (unknown) aerosol inhaler (units (unknown) date) (ProAir HFA) unknown) Ventilation #8.5 grams (unknown) (no (unknown) (unknown) albuterol sulfate (units (unknown) date) 90 mcg/actuation 1 unknown) puff inhalation Q6H PRN Adequate 03/08/22 (unknown) (no (unknown) (unknown) albuterol sulfate (units (unknown) date) [ProAir HFA] 90 unknown) mcg/actuation HFA aerosol inhaler (unknown) (no (unknown) (unknown) alcohol intake (units (unknown) date) frequency: 0-2 unknown) drinks per day (unknown) (no (unknown) (unknown) amoxicillin (units (un known) date) Allergy unknown) Intermediate Rash, Verified 03/24/22 18:50 (unknown) (no (unknown) (unknown) and below (units (unkn own) date) unknown) (unknown) (no (unknown) (unknown) are normal in size (units (unknown) date) and shape.? unknown) (unknown) (no (unknown) (unknown) azithromycin (units (u nknown) date) Allergy unknown) Intermediate Gastrointestinal Verified 03/24/22 18:50 (unknown) (no (unknown) (unknown) ciprofloxacin (units ( unknown) date) Allergy unknown) Intermediate Gastrointestinal Verified 03/24/22 18:50 (unknown) (no (unknown) (unknown) dizzy. She denies (units (unknown) date) any light unknown) sensitivity or noise sensitivity. She was having (unknown) (no (unknown) (unknown) extremities (units (un known) date) unknown) (unknown) (no (unknown) (unknown) felt it was sharp (units (unknown) date) and stabbing in unknown) nature it has been there all day it is (unknown) (no (unknown) (unknown) fluticasone (units (un known) date) propionate 230 2 unknown) puff inhalation BID #12 grams 03/13/22 (unknown) (no (unknown) (unknown) following (units (unkn own) date) unknown) (unknown) (no (unknown) (unknown) gluten AdvReac (units (unknown) date) Mild Stomach unknown) Verified 03/24/22 18:50 (unknown) (no (unknown) (unknown) guarding or (units (un known) date) rebound. unknown) (unknown) (no (unknown) (unknown) headache for (units (u nknown) date) awhile however unknown) today it got to be really bad she had to be very (unknown) (no (unknown) (unknown) headache (units (unkno wn) date) unknown) (unknown) (no (unknown) (unknown) household members: (units (unknown) date) spouse and children unknown) (unknown) (no (unknown) (unknown) hydrocodone 5 (units ( unknown) date) mg-acetaminophen unknown) 325 1 tab PO Q6H PRN pain #10 tabs 03/05/22 (unknown) (no (unknown) (unknown) hydrocodone-acetam (units (unknown) date) inophen 5-325 mg unknown) tablet (unknown) (no (unknown) (unknown) hydromorphone (units ( unknown) date) Allergy Mild unknown) Flushing Verified 03/24/22 18:50 (unknown) (no (unknown) (unknown) ibuprofen Allergy (units (unknown) date) Mild Kidney unknown) Verified 03/24/22 18:50 (unknown) (no (unknown) (unknown) in it. She reports (units (unknown) date) that every time she unknown) has an NSAID she gets kidney/UTI (unknown) (no (unknown) (unknown) infection (units (unkn own) date) unknown) (unknown) (no (unknown) (unknown) infection, but (units (unknown) date) does not have any unknown) actual allergic reaction to it. (unknown) (no (unknown) (unknown) intact (units (unkno wn) date) unknown) (unknown) (no (unknown) (unknown) interface is (units (u nknown) date) normal.? unknown) (unknown) (no (unknown) (unknown) lesions.? (units (unkn own) date) unknown) (unknown) (no (unknown) (unknown) lumps found have (units (unknown) date) multiple pulmonary unknown) nodules in her last ED visit on March 05 (unknown) (no (unknown) (unknown) matter (units (unkno wn) date) unknown) (unknown) (no (unknown) (unknown) mcg-salmeterol 21 (units (unknown) date) mcg/actuation unknown) (unknown) (no (unknown) (unknown) membranes (units (unkn own) date) unknown) (unknown) (no (unknown) (unknown) mg tablet (units (unkn own) date) unknown) (unknown) (no (unknown) (unknown) nausea, (units (unkno wn) date) unknown) (unknown) (no (unknown) (unknown) nickel AdvReac (units (unknown) date) Mild Irritation/ unknown) Verified 03/24/22 18:50 (unknown) (no (unknown) (unknown) nonradiating. She (units (unknown) date) denies any nausea unknown) or vomiting. She reports that she is been (unknown) (no (unknown) (unknown) ondansetron 4 mg (units (unknown) date) disintegrating 4 mg unknown) PO QID PRN nausea and 04/05/18 (unknown) (no (unknown) (unknown) ondansetron 4 mg (units (unknown) date) tablet,disintegrati unknown) ng (unknown) (no (unknown) (unknown) pain, (units (unkno wn) date) unknown) (unknown) (no (unknown) (unknown) patient (units (unkno wn) date) unknown) (unknown) (no (unknown) (unknown) presents today (units (unknown) date) with headache and unknown) chest pain. She says he has been having (unknown) (no (unknown) (unknown) redness (units (unkno wn) date) unknown) (unknown) (no (unknown) (unknown) size.? (units (unkno wn) date) unknown) (unknown) (no (unknown) (unknown) some left-sided (units (unknown) date) chest discomfort unknown) which was worse whenever she took a breath she (unknown) (no (unknown) (unknown) suspicious (units (unk nown) date) unknown) (unknown) (no (unknown) (unknown) tablet vomiting (units (unknown) date) #14 tabs unknown) (unknown) (no (unknown) (unknown) taking Excedrin (units (unknown) date) for her migraines unknown) she did not realize that Excedrin had NSAIDs (unknown) (no (unknown) (unknown) throat was (units (unk nown) date) unknown) (unknown) (no (unknown) (unknown) tingly (units (unkno wn) date) unknown) (unknown) (no (unknown) (unknown) to the (units (unkno wn) date) unknown) (unknown) (no (unknown) (unknown) vertex, with (units (u nknown) date) coronal and unknown) sagittal reformats.? For radiation dose reduction, the (unknown) (no (unknown) (unknown) was used:? (units (unk nown) date) automated exposure unknown) control, adjustment of mA and/or kV according to Result panel 612 (unknown) (no (unknown) (unknown) (no value) (units (unk nown) date) unknown) (unknown) (no (unknown) (unknown) *Continue to take (units (unknown) date) medications as unknown) directed (unknown) (no (unknown) (unknown) *Follow up with (units (unknown) date) your primary care unknown) provider in 2-3 days or call [phone] (unknown) (no (unknown) (unknown) *Return to ER if (units (unknown) date) you should have unknown) worsening headache numbness tingling weakness (unknown) (no (unknown) (unknown) *What to do: At (units (unknown) date) this time go home unknown) rest stay hydrated (unknown) (no (unknown) (unknown) *You have been (units (unknown) date) diagnosed with unknown) migraine headaches (unknown) (no (unknown) (unknown) 03/24/22 03/24/22 (units (unknown) date) 03/24/22 unknown) Range/Units (unknown) (no (unknown) (unknown) 03/24/22 19:09 (units (unknown) date) unknown) (unknown) (no (unknown) (unknown) 03/24/22 19:16 (units (unknown) date) unknown) (unknown) (no (unknown) (unknown) 03/24/22 19:40 (units (unknown) date) unknown) (unknown) (no (unknown) (unknown) 03/24/22 20:44 (units (unknown) date) unknown) (unknown) (no (unknown) (unknown) 03/24/22 21:38 (units (unknown) date) unknown) (unknown) (no (unknown) (unknown) 03/24/22 (units (unkno wn) date) Range/Units unknown) (unknown) (no (unknown) (unknown) 03/24/22 (units (unkno wn) date) unknown) (unknown) (no (unknown) (unknown) 1 puff INHALATION (units (unknown) date) Q6H PRN (Reason: unknown) Adequate Ventilation) Qty: 8.5 0RF (unknown) (no (unknown) (unknown) 1 tab PO Q6H PRN (units (unknown) date) (Reason: pain) Qty: unknown) 10 0RF (unknown) (no (unknown) (unknown) 18:50 03/24/22 (units (unknown) date) unknown) (unknown) (no (unknown) (unknown) 19:09 19:40 19:40 (units (unknown) date) unknown) (unknown) (no (unknown) (unknown) 19:40 19:40 19:40 (units (unknown) date) unknown) (unknown) (no (unknown) (unknown) 19:45 03/24/22 (units (unknown) date) unknown) (unknown) (no (unknown) (unknown) 2 puff inhalation (units (unknown) date) BID Qty: 12 2RF unknown) (unknown) (no (unknown) (unknown) 20:30 (units (unkno wn) date) unknown) (unknown) (no (unknown) (unknown) 20:31 03/24/22 (units (unknown) date) unknown) (unknown) (no (unknown) (unknown) 21:00 (units (unkno wn) date) unknown) (unknown) (no (unknown) (unknown) 21:38 (units (unkno wn) date) unknown) (unknown) (no (unknown) (unknown) 4 mg PO QID PRN (units (unknown) date) (Reason: nausea and unknown) vomiting) Qty: 14 2RF (unknown) (no (unknown) (unknown) ? (units (unkno wn) date) unknown) (unknown) (no (unknown) (unknown) ABDOMEN: Soft, (units (unknown) date) nontender. unknown) Normoactive bowel sounds all 4 quadrants. No (unknown) (no (unknown) (unknown) ALT (<35) IU/L (units (unknown) date) unknown) (unknown) (no (unknown) (unknown) ALT 22 (<35) IU/L (units (unknown) date) unknown) (unknown) (no (unknown) (unknown) APTT (26-36) (units (u nknown) date) SECONDS unknown) (unknown) (no (unknown) (unknown) APTT 27 (26-36) (units (unknown) date) SECONDS unknown) (unknown) (no (unknown) (unknown) AST (14-36) IU/L (units (unknown) date) unknown) (unknown) (no (unknown) (unknown) AST 28 (14-36) (units (unknown) date) IU/L unknown) (unknown) (no (unknown) (unknown) Accession Number: (units (unknown) date) [id number] ?? unknown) (unknown) (no (unknown) (unknown) Accession Number: (units (unknown) date) [id number] ?? unknown) (unknown) (no (unknown) (unknown) Acct:[id number] (units (unknown) date) unknown) (unknown) (no (unknown) (unknown) Acetaminophen (units ( unknown) date) (Acetaminophen 325 unknown) Mg Tablet) 975 mg PO NOW ONE (unknown) (no (unknown) (unknown) Activity (units (unkno wn) date) Restrictions/Additi unknown) onal Instructions: (unknown) (no (unknown) (unknown) Admin: 03/24/22 (units (unknown) date) 19:52 Dose: 1,000 unknown) mls/hr (unknown) (no (unknown) (unknown) Advair HFA 230-21 (units (unknown) date) mcg/actuation HFA unknown) aerosol inhaler (unknown) (no (unknown) (unknown) Age/Sex: 36 / F (units (unknown) date) unknown) (unknown) (no (unknown) (unknown) Albumin (3.5-5.0) (units (unknown) date) g/dL unknown) (unknown) (no (unknown) (unknown) Albumin 4.3 (units (un known) date) (3.5-5.0) g/dL unknown) (unknown) (no (unknown) (unknown) Albumin/Globulin (units (unknown) date) Ratio (1.0-2.8) unknown) (unknown) (no (unknown) (unknown) Albumin/Globulin (units (unknown) date) Ratio 1.4 (1.0-2.8) unknown) (unknown) (no (unknown) (unknown) Alkaline (units (unkno wn) date) Phosphatase unknown) (38-126) U/L (unknown) (no (unknown) (unknown) Alkaline (units (unkno wn) date) Phosphatase 46 unknown) (38-126) U/L (unknown) (no (unknown) (unknown) Allergies (units (unkn own) date) unknown) (unknown) (no (unknown) (unknown) Allergy/AdvReac (units (unknown) date) Type Severity unknown) Reaction Status Date / Time (unknown) (no (unknown) (unknown) Anxiety (units (unkno wn) date) unknown) (unknown) (no (unknown) (unknown) Approved by: Juarez (units (unknown) date) Jose Fatima on unknown) 03/24/2022 at 21:23 ? (unknown) (no (unknown) (unknown) Asthma (units (unkno wn) date) unknown) (unknown) (no (unknown) (unknown) BUN (7-17) mg/dL (units (unknown) date) unknown) (unknown) (no (unknown) (unknown) BUN 12 (7-17) (units ( unknown) date) mg/dL unknown) (unknown) (no (unknown) (unknown) BUN/Creatinine (units (unknown) date) Ratio (6-22) unknown) (unknown) (no (unknown) (unknown) BUN/Creatinine (units (unknown) date) Ratio 16.7 (6-22) unknown) (unknown) (no (unknown) (unknown) Baso # (Auto) (units ( unknown) date) (0-100) /uL unknown) (unknown) (no (unknown) (unknown) Baso # (Auto) 0 (units (unknown) date) (0-100) /uL unknown) (unknown) (no (unknown) (unknown) Baso % (Auto) (units ( unknown) date) (0-2) % unknown) (unknown) (no (unknown) (unknown) Baso % (Auto) 0.3 (units (unknown) date) (0-2) % unknown) (unknown) (no (unknown) (unknown) Bedside Urine (units ( unknown) date) Bilirubin - unknown) Negative (unknown) (no (unknown) (unknown) Bedside Urine (units ( unknown) date) Glucose Negative unknown) (unknown) (no (unknown) (unknown) Bedside Urine (units ( unknown) date) Ketone - Negative unknown) (unknown) (no (unknown) (unknown) Bedside Urine (units ( unknown) date) Leukocytes - unknown) Negative (unknown) (no (unknown) (unknown) Bedside Urine (units ( unknown) date) Nitrite - Negative unknown) (unknown) (no (unknown) (unknown) Bedside Urine (units ( unknown) date) Occult Blood - unknown) Negative (unknown) (no (unknown) (unknown) Bedside Urine (units ( unknown) date) Protein - Negative unknown) (unknown) (no (unknown) (unknown) Bedside Urine (units ( unknown) date) Urobilinogen - unknown) Negative (unknown) (no (unknown) (unknown) Bedside Urine pH (units (unknown) date) 6.5 unknown) (unknown) (no (unknown) (unknown) Blood Pressure (units (unknown) date) 03/24/22 unknown) 18:50 (unknown) (no (unknown) (unknown) Blood Pressure (units (unknown) date) 118/73 118/73 unknown) (unknown) (no (unknown) (unknown) Blood Pressure (units (unknown) date) unknown) (unknown) (no (unknown) (unknown) Bones and chest (units (unknown) date) wall:? No unknown) suspicious bony lesions.? Overlying soft tissues (unknown) (no (unknown) (unknown) Brain:? No midline (units (unknown) date) shift.? No unknown) intracranial masses or hemorrhage.? Luke-white (unknown) (no (unknown) (unknown) CARDIOVASCULAR: (units (unknown) date) Regular rate and unknown) rhythm without murmurs, rubs or gallops. (unknown) (no (unknown) (unknown) CHEST 2 VIEW, (units ( unknown) date) 12/16/2008, 21:11. unknown) (unknown) (no (unknown) (unknown) CK-MB (CK-2) Rel (units (unknown) date) Index TNP unknown) (unknown) (no (unknown) (unknown) CK-MB (CK-2) Rel (units (unknown) date) Index unknown) (unknown) (no (unknown) (unknown) CK-MB (CK-2) TNP (units (unknown) date) unknown) (unknown) (no (unknown) (unknown) CK-MB (CK-2) (units (u nknown) date) unknown) (unknown) (no (unknown) (unknown) COMPARISON:? (units (u nknown) date) [facility], unknown) CR, XR CHEST 1V, 03/05/2022, 10:32.? [place] (unknown) (no (unknown) (unknown) COMPARISON:? None. (units (unknown) date) unknown) (unknown) (no (unknown) (unknown) CSF spaces:? Basal (units (unknown) date) cisterns are unknown) patent.? No extra-axial fluid collections.? (unknown) (no (unknown) (unknown) CT Scan Report (units (unknown) date) unknown) (unknown) (no (unknown) (unknown) CT head/brain wo (units (unknown) date) con Stat unknown) (unknown) (no (unknown) (unknown) CT scan - head: (units (unknown) date) unknown) (unknown) (no (unknown) (unknown) Calcium (8.4-10.2) (units (unknown) date) mg/dL unknown) (unknown) (no (unknown) (unknown) Calcium 8.5 (units (un known) date) (8.4-10.2) mg/dL unknown) (unknown) (no (unknown) (unknown) Carbon Dioxide (units (unknown) date) (22-32) mmol/L unknown) (unknown) (no (unknown) (unknown) Carbon Dioxide 24 (units (unknown) date) (22-32) mmol/L unknown) (unknown) (no (unknown) (unknown) Chest x-ray: (units (u nknown) date) unknown) (unknown) (no (unknown) (unknown) Chief Complaint: (units (unknown) date) Headache unknown) (unknown) (no (unknown) (unknown) Chloride (98-107) (units (unknown) date) mmol/L unknown) (unknown) (no (unknown) (unknown) Chloride 103 (units (u nknown) date) (98-107) mmol/L unknown) (unknown) (no (unknown) (unknown) Clinical (units (unkno wn) date) Impression: unknown) (unknown) (no (unknown) (unknown) Complete Blood (units (unknown) date) Count AUTO DIFF unknown) Stat (unknown) (no (unknown) (unknown) Comprehensive (units ( unknown) date) Metabolic Panel unknown) Stat (unknown) (no (unknown) (unknown) Course (units (unkno wn) date) unknown) (unknown) (no (unknown) (unknown) Covid-19 + FLU A/B (units (unknown) date) + RSV - PCR Stat unknown) (unknown) (no (unknown) (unknown) Creatinine (units (unk nown) date) (0.52-1.04) mg/dL unknown) (unknown) (no (unknown) (unknown) Creatinine 0.72 (units (unknown) date) (0.52-1.04) mg/dL unknown) (unknown) (no (unknown) (unknown) : 1985 (units (unknown) date) Acct:[id number] unknown) (unknown) (no (unknown) (unknown) : 1985 (units (unknown) date) unknown) (unknown) (no (unknown) (unknown) Date of Service: (units (unknown) date) 03/24/22 unknown) (unknown) (no (unknown) (unknown) Departure (units (unkn own) date) unknown) (unknown) (no (unknown) (unknown) Depression (units (unk nown) date) unknown) (unknown) (no (unknown) (unknown) Dictated by: Juarez (units (unknown) date) Jose Fatima on unknown) 03/24/2022 at 20:01 (unknown) (no (unknown) (unknown) Dictated by: Juarez (units (unknown) date) Jose Fatima on unknown) 03/24/2022 at 21:23 ? ? (unknown) (no (unknown) (unknown) Discharge Plan (units (unknown) date) unknown) (unknown) (no (unknown) (unknown) Discontinued (units (u nknown) date) Medications unknown) (unknown) (no (unknown) (unknown) Documented By: BS (units (unknown) date) unknown) (unknown) (no (unknown) (unknown) Documented By: GC (units (unknown) date) unknown) (unknown) (no (unknown) (unknown) ED Orders (units (unkn own) date) unknown) (unknown) (no (unknown) (unknown) EKG-12 Lead Stat (units (unknown) date) unknown) (unknown) (no (unknown) (unknown) ER Physician: (units ( unknown) date) Danita Vila D.O. unknown) (unknown) (no (unknown) (unknown) EXTREMITIES: (units (u nknown) date) Normal range of unknown) motion, no clubbing or edema. Neurovascularly (unknown) (no (unknown) (unknown) Emergency Report (units (unknown) date) unknown) (unknown) (no (unknown) (unknown) Eos # (Auto) (units (u nknown) date) (0-450) /uL unknown) (unknown) (no (unknown) (unknown) Eos # (Auto) 0 (units (unknown) date) (0-450) /uL unknown) (unknown) (no (unknown) (unknown) Eos % (Auto) (2-4) (units (unknown) date) % unknown) (unknown) (no (unknown) (unknown) Eos % (Auto) 0.1 L (units (unknown) date) (2-4) % unknown) (unknown) (no (unknown) (unknown) Esterase (units (unkno wn) date) unknown) (unknown) (no (unknown) (unknown) Estimated GFR > 60 (units (unknown) date) (>60) mL/min unknown) (unknown) (no (unknown) (unknown) Estimated GFR (units ( unknown) date) (>60) mL/min unknown) (unknown) (no (unknown) (unknown) Exam (units (unkno wn) date) unknown) (unknown) (no (unknown) (unknown) FINDINGS:? (units (unk nown) date) unknown) (unknown) (no (unknown) (unknown) GENERAL: Thin (units ( unknown) date) 36-year-old female unknown) (unknown) (no (unknown) (unknown) General (units (unkno wn) date) unknown) (unknown) (no (unknown) (unknown) Globulin (1.7-4.1) (units (unknown) date) g/dL unknown) (unknown) (no (unknown) (unknown) Globulin 3.1 (units (u nknown) date) (1.7-4.1) g/dL unknown) (unknown) (no (unknown) (unknown) Glucose (70-100) (units (unknown) date) mg/dL unknown) (unknown) (no (unknown) (unknown) Glucose 147 H (units ( unknown) date) (70-100) mg/dL unknown) (unknown) (no (unknown) (unknown) H/O exploratory (units (unknown) date) laparotomy unknown) (unknown) (no (unknown) (unknown) H/O left knee (units ( unknown) date) surgery unknown) (unknown) (no (unknown) (unknown) HEENT: Head (units (un known) date) atraumatic,EOMI, unknown) pupils reactive, face symmetric, moist mucous (unknown) (no (unknown) (unknown) HFA inhaler (units (un known) date) (Advair HFA) unknown) (unknown) (no (unknown) (unknown) HPI - Headache (units (unknown) date) unknown) (unknown) (no (unknown) (unknown) HPI Narrative: (units (unknown) date) unknown) (unknown) (no (unknown) (unknown) Hct (36-46) % (units ( unknown) date) unknown) (unknown) (no (unknown) (unknown) Hct 35.7 L (36-46) (units (unknown) date) % unknown) (unknown) (no (unknown) (unknown) Hgb (12.0-16.0) (units (unknown) date) g/dL unknown) (unknown) (no (unknown) (unknown) Hgb 12.1 (units (unkno wn) date) (12.0-16.0) g/dL unknown) (unknown) (no (unknown) (unknown) History of Present (units (unknown) date) Illness unknown) (unknown) (no (unknown) (unknown) History of open (units (unknown) date) heart surgery unknown) (unknown) (no (unknown) (unknown) History of surgery (units (unknown) date) unknown) (unknown) (no (unknown) (unknown) Hospital, , (units ( unknown) date) unknown) (unknown) (no (unknown) (unknown) IMPRESSION:? (units (u nknown) date) Normal for age, unknown) source of current chest pain symptoms is not seen. (unknown) (no (unknown) (unknown) IMPRESSION:? (units (u nknown) date) Normal for age, unknown) source of headache is not found. (unknown) (no (unknown) (unknown) INDICATIONS:? (units ( unknown) date) chest pain unknown) (unknown) (no (unknown) (unknown) INDICATIONS:? (units ( unknown) date) severe headache unknown) (unknown) (no (unknown) (unknown) INR (0.9-1.3) (units ( unknown) date) unknown) (unknown) (no (unknown) (unknown) INR 1.0 (0.9-1.3) (units (unknown) date) unknown) (unknown) (no (unknown) (unknown) Image quality:? (units (unknown) date) Excellent.? unknown) (unknown) (no (unknown) (unknown) Imaging Data (units (u nknown) date) unknown) (unknown) (no (unknown) (unknown) Influenza A (units (un known) date) (RT-PCR) (NEGATIVE) unknown) (unknown) (no (unknown) (unknown) Influenza A (units (un known) date) (RT-PCR) Flu a unknown) negative (NEGATIVE) (unknown) (no (unknown) (unknown) Influenza B (units (un known) date) (RT-PCR) (NEGATIVE) unknown) (unknown) (no (unknown) (unknown) Influenza B (units (un known) date) (RT-PCR) Flu b unknown) negative (NEGATIVE) (unknown) (no (unknown) (unknown) Initial Vital (units ( unknown) date) Signs unknown) (unknown) (no (unknown) (unknown) Initial Vital (units ( unknown) date) Signs: unknown) (unknown) (no (unknown) (unknown) Instructions: DI (units (unknown) date) for Migraine unknown) (unknown) (no (unknown) (unknown) [facility] (units (unknown) date) [address] [place], [place] [id number] unknown) [place] [address] (unknown) (no (unknown) (unknown) Lab Data (units (unkno wn) date) unknown) (unknown) (no (unknown) (unknown) Lab Results (units (un known) date) unknown) (unknown) (no (unknown) (unknown) Labs: (units (unkno wn) date) unknown) (unknown) (no (unknown) (unknown) Lactate (0.7-2.1) (units (unknown) date) mmol/L unknown) (unknown) (no (unknown) (unknown) Lactate (Lactic (units (unknown) date) Acid) Stat unknown) (unknown) (no (unknown) (unknown) Lactate 1.5 (units (un known) date) (0.7-2.1) mmol/L unknown) (unknown) (no (unknown) (unknown) Last Admin: (units (un known) date) 03/24/22 19:52 unknown) Dose: 975 mg (unknown) (no (unknown) (unknown) Last Admin: (units (un known) date) 03/24/22 21:09 unknown) Dose: 2 mg (unknown) (no (unknown) (unknown) Last Admin: (units (un known) date) 03/24/22 21:09 unknown) Dose: 4 mg (unknown) (no (unknown) (unknown) Last Admin: (units (un known) date) 03/24/22 22:56 unknown) Dose: 4 mg (unknown) (no (unknown) (unknown) Last Infusion: (units (unknown) date) 03/24/22 21:09 unknown) Dose: 0 mls/hr (unknown) (no (unknown) (unknown) Lipase (23-300) (units (unknown) date) U/L unknown) (unknown) (no (unknown) (unknown) Lipase 341 H (units (u nknown) date) (23-300) U/L unknown) (unknown) (no (unknown) (unknown) Lipase Stat (units (un known) date) unknown) (unknown) (no (unknown) (unknown) Loc: ED (units (unkno wn) date) unknown) (unknown) (no (unknown) (unknown) Lungs and pleura:? (units (unknown) date) Lungs are clear.? unknown) No pleural effusions or pneumothorax.? (unknown) (no (unknown) (unknown) Lymph # (Auto) (units (unknown) date) (9447-6955) /uL unknown) (unknown) (no (unknown) (unknown) Lymph # (Auto) 500 (units (unknown) date) L (8353-6526) /uL unknown) (unknown) (no (unknown) (unknown) Lymph % (Auto) (units (unknown) date) (25-40) % unknown) (unknown) (no (unknown) (unknown) Lymph % (Auto) 7.4 (units (unknown) date) L (25-40) % unknown) (unknown) (no (unknown) (unknown) [id number] (units (unk nown) date) unknown) (unknown) (no (unknown) (unknown) MCH (26-34) PG (units (unknown) date) unknown) (unknown) (no (unknown) (unknown) MCH 30.6 (26-34) (units (unknown) date) PG unknown) (unknown) (no (unknown) (unknown) MCHC (30-36) % (units (unknown) date) unknown) (unknown) (no (unknown) (unknown) MCHC 34.0 (30-36) (units (unknown) date) % unknown) (unknown) (no (unknown) (unknown) MCV (80-100) fL (units (unknown) date) unknown) (unknown) (no (unknown) (unknown) MCV 90.1 (80-100) (units (unknown) date) fL unknown) (unknown) (no (unknown) (unknown) MDM - Headache (units (unknown) date) unknown) (unknown) (no (unknown) (unknown) MDM Narrative (units ( unknown) date) unknown) (unknown) (no (unknown) (unknown) MR#: [id number] (units (unknown) date) unknown) (unknown) (no (unknown) (unknown) Magnesium (units (unkn own) date) (1.6-2.3) mg/dL unknown) (unknown) (no (unknown) (unknown) Magnesium 1.8 (units ( unknown) date) (1.6-2.3) mg/dL unknown) (unknown) (no (unknown) (unknown) Magnesium Stat (units (unknown) date) unknown) (unknown) (no (unknown) (unknown) Mediastinum:? (units ( unknown) date) Mediastinal unknown) contours appear normal.? Heart size is normal.? (unknown) (no (unknown) (unknown) Medical History (units (unknown) date) (Reviewed 03/24/22 unknown) @ 22:55 by Danita Vila DO) (unknown) (no (unknown) (unknown) Medical decision (units (unknown) date) making narrative: unknown) (unknown) (no (unknown) (unknown) Medication (units (unk nown) date) Instructions unknown) Recorded (unknown) (no (unknown) (unknown) Migraine (units (unkno wn) date) unknown) (unknown) (no (unknown) (unknown) Mild persistent (units (unknown) date) asthma unknown) (unknown) (no (unknown) (unknown) Mode of arrival: (units (unknown) date) Ambulatory unknown) (unknown) (no (unknown) (unknown) [place]ran # (Auto) (units ( unknown) date) (0-900) /uL unknown) (unknown) (no (unknown) (unknown) [place]ran # (Auto) 400 (units (unknown) date) (0-900) /uL unknown) (unknown) (no (unknown) (unknown) [place]ran % (Auto) (units ( unknown) date) (3-14) % unknown) (unknown) (no (unknown) (unknown) [place]ran % (Auto) 6.1 (units (unknown) date) (3-14) % unknown) (unknown) (no (unknown) (unknown) Morphine Sulfate (units (unknown) date) (Morphine 2 Mg/Ml unknown) Inj) 2 mg IV NOW ONE (unknown) (no (unknown) (unknown) Morphine Sulfate (units (unknown) date) (Morphine 4 Mg/Ml unknown) Inj) 4 mg IV NOW ONE (unknown) (no (unknown) (unknown) NEUROLOGICAL: (units ( unknown) date) Alert and oriented unknown) x4. Swimming Pool Cleaner strength equal bilaterally moving all (unknown) (no (unknown) (unknown) Neut # (Auto) (units ( unknown) date) (7367-6764) /uL unknown) (unknown) (no (unknown) (unknown) Neut # (Auto) 6200 (units (unknown) date) (7213-5487) /uL unknown) (unknown) (no (unknown) (unknown) Neut % (Auto) (units ( unknown) date) (50-75) % unknown) (unknown) (no (unknown) (unknown) Neut % (Auto) 86.1 (units (unknown) date) H (50-75) % unknown) (unknown) (no (unknown) (unknown) No Action (units (unkn own) date) unknown) (unknown) (no (unknown) (unknown) Noncontrast 4.5 mm (units (unknown) date) thick angled axial unknown) sections acquired from the foramen magnum (unknown) (no (unknown) (unknown) Ondansetron HCl (units (unknown) date) (Ondansetron 4 Mg/2 unknown) Ml Inj) 4 mg IV NOW ONE (unknown) (no (unknown) (unknown) Ordered: (units (unkno wn) date) unknown) (unknown) (no (unknown) (unknown) Ordering Provider: (units (unknown) date) Danita Vila D.O. unknown) (unknown) (no (unknown) (unknown) Orders (units (unkno wn) date) unknown) (unknown) (no (unknown) (unknown) Oxygen Delivery (units (unknown) date) Method 03/24/22 unknown) 18:50 (unknown) (no (unknown) (unknown) Oxygen Delivery (units (unknown) date) Method Room Air unknown) Room Air (unknown) (no (unknown) (unknown) Oxygen Delivery (units (unknown) date) Method Room Air unknown) (unknown) (no (unknown) (unknown) PROCEDURE:? CT (units (unknown) date) HEAD/BRAIN WO CON unknown) (unknown) (no (unknown) (unknown) PROCEDURE:? XR (units (unknown) date) CHEST 1V unknown) (unknown) (no (unknown) (unknown) PT (10.1-12.7) (units (unknown) date) SECONDS unknown) (unknown) (no (unknown) (unknown) PT 11.8 (units (unkno wn) date) (10.1-12.7) SECONDS unknown) (unknown) (no (unknown) (unknown) Partial (units (unkno wn) date) Thromboplastin Time unknown) Stat (unknown) (no (unknown) (unknown) Patient (units (unkno wn) date) 36-year-old female unknown) currently being worked up for breast cancer she is (unknown) (no (unknown) (unknown) Patient (units (unkno wn) date) Disposition: Home unknown) (unknown) (no (unknown) (unknown) Patient History (units (unknown) date) unknown) (unknown) (no (unknown) (unknown) Patient is a (units (u nknown) date) 36-year-old female unknown) currently being worked up for bilateral breast (unknown) (no (unknown) (unknown) Patient: (units (unkno wn) date) Carmina Castillo unknown) MR#: (unknown) (no (unknown) (unknown) Patient: (units (unkno wn) date) CastilloCarmina unknown) (unknown) (no (unknown) (unknown) Penicillins (units (un known) date) Allergy unknown) Intermediate Rash Verified 03/24/22 18:50 (unknown) (no (unknown) (unknown) Pertussis Vaccines (units (unknown) date) Allergy Unknown unknown) Seizure Verified 03/24/22 18:50 (unknown) (no (unknown) (unknown) Plt Count (units (unkn own) date) (150-400) X103/uL unknown) (unknown) (no (unknown) (unknown) Plt Count 232 (units ( unknown) date) (150-400) X103/uL unknown) (unknown) (no (unknown) (unknown) Potassium (units (unkn own) date) (3.4-5.1) mmol/L unknown) (unknown) (no (unknown) (unknown) Potassium 3.2 L (units (unknown) date) (3.4-5.1) mmol/L unknown) (unknown) (no (unknown) (unknown) Prescriptions: (units (unknown) date) unknown) (unknown) (no (unknown) (unknown) Previous Rx's (units ( unknown) date) unknown) (unknown) (no (unknown) (unknown) Procalcitonin (units ( unknown) date) (<0.5) ng/mL unknown) (unknown) (no (unknown) (unknown) Procalcitonin 0.14 (units (unknown) date) (<0.5) ng/mL unknown) (unknown) (no (unknown) (unknown) Procalcitonin Stat (units (unknown) date) unknown) (unknown) (no (unknown) (unknown) Procedure: CT (units ( unknown) date) head/brain wo con unknown) (unknown) (no (unknown) (unknown) Procedure: XR (units ( unknown) date) chest 1V unknown) (unknown) (no (unknown) (unknown) Prothrombin Time (units (unknown) date) INR Stat unknown) (unknown) (no (unknown) (unknown) Pulse Oximetry 100 (units (unknown) date) 98 unknown) (unknown) (no (unknown) (unknown) Pulse Oximetry 97 (units (unknown) date) 03/24/22 18:50 unknown) (unknown) (no (unknown) (unknown) Pulse Oximetry 97 (units (unknown) date) 99 unknown) (unknown) (no (unknown) (unknown) Pulse Rate 63 77 (units (unknown) date) unknown) (unknown) (no (unknown) (unknown) Pulse Rate 70 (units ( unknown) date) 03/24/22 18:50 unknown) (unknown) (no (unknown) (unknown) Pulse Rate 70 78 (units (unknown) date) unknown) (unknown) (no (unknown) (unknown) RBC (4.0-5.2) (units ( unknown) date) X106/uL unknown) (unknown) (no (unknown) (unknown) RBC 3.96 L (units (unk nown) date) (4.0-5.2) X106/uL unknown) (unknown) (no (unknown) (unknown) RDW (11.6-14.8) % (units (unknown) date) unknown) (unknown) (no (unknown) (unknown) RDW 12.2 (units (unkno wn) date) (11.6-14.8) % unknown) (unknown) (no (unknown) (unknown) RESPIRATORY: (units (u nknown) date) Breath sounds equal unknown) bilaterally, no wheezes rales or rhonchi. (unknown) (no (unknown) (unknown) ROS Unobtainable: (units (unknown) date) All systems unknown) reviewed + are unremarkable except as noted in HPI (unknown) (no (unknown) (unknown) RSV (PCR) (units (unkn own) date) (Negative) unknown) (unknown) (no (unknown) (unknown) RSV (PCR) Negative (units (unknown) date) (Negative) unknown) (unknown) (no (unknown) (unknown) Radiologist's (units ( unknown) date) Impression: unknown) (unknown) (no (unknown) (unknown) Referrals: (units (unk nown) date) unknown) (unknown) (no (unknown) (unknown) Related Data (units (u nknown) date) unknown) (unknown) (no (unknown) (unknown) Respiratory Rate (units (unknown) date) 20 03/24/22 18:50 unknown) (unknown) (no (unknown) (unknown) Respiratory Rate (units (unknown) date) 20 19 unknown) (unknown) (no (unknown) (unknown) Respiratory Rate (units (unknown) date) 22 unknown) (unknown) (no (unknown) (unknown) Review of Systems (units (unknown) date) unknown) (unknown) (no (unknown) (unknown) Wes Herrera ARNP (units (unknown) date) [Primary Care unknown) Provider] (unknown) (no (unknown) (unknown) S/P laparoscopic (units (unknown) date) supracervical unknown) hysterectomy (04/04/18) (unknown) (no (unknown) (unknown) SARS-CoV-2 (PCR) (units (unknown) date) (Negative) unknown) (unknown) (no (unknown) (unknown) SARS-CoV-2 (PCR) (units (unknown) date) Negative (Negative) unknown) (unknown) (no (unknown) (unknown) SKIN: Warm, dry, (units (unknown) date) no laceration, no unknown) petechiae, no rashes or lesions. (unknown) (no (unknown) (unknown) Signed By: (units (unk nown) date) unknown) (unknown) (no (unknown) (unknown) Signed (units (unkno wn) date) unknown) (unknown) (no (unknown) (unknown) Sinuses:? (units (unkn own) date) Visualized sinuses unknown) and mastoids are clear.? (unknown) (no (unknown) (unknown) Skull and face:? (units (unknown) date) Calvarium and unknown) visualized facial bones are intact, without (unknown) (no (unknown) (unknown) Smoking Status: (units (unknown) date) Former smoker unknown) (unknown) (no (unknown) (unknown) Social History (units (unknown) date) (Reviewed 03/24/22 unknown) @ 22:55 by Danita Vila DO) (unknown) (no (unknown) (unknown) Sodium (137-145) (units (unknown) date) mmol/L unknown) (unknown) (no (unknown) (unknown) Sodium 138 (units (unk nown) date) (137-145) mmol/L unknown) (unknown) (no (unknown) (unknown) Sodium Chloride (units (unknown) date) (Normal Saline unknown) 0.9%) 1,000 mls @ 1,000 mls/hr IV BOLUS ONE (unknown) (no (unknown) (unknown) Stand Alone Forms: (units (unknown) date) Patient Portal/API unknown) (unknown) (no (unknown) (unknown) Stated Complaint: (units (unknown) date) headache, back unknown) pain, L sided chest pain, body pain (unknown) (no (unknown) (unknown) Stop: 03/24/22 (units (unknown) date) 19:21 unknown) (unknown) (no (unknown) (unknown) Stop: 03/24/22 (units (unknown) date) 20:16 unknown) (unknown) (no (unknown) (unknown) Stop: 03/24/22 (units (unknown) date) 20:45 unknown) (unknown) (no (unknown) (unknown) Stop: 03/24/22 (units (unknown) date) 22:45 unknown) (unknown) (no (unknown) (unknown) Substance Use (units ( unknown) date) Type: marijuana unknown) (unknown) (no (unknown) (unknown) Surgical History (units (unknown) date) (Reviewed 03/24/22 unknown) @ 22:55 by Danita Vila DO) (unknown) (no (unknown) (unknown) Surgical changes (units (unknown) date) and devices:? unknown) None.? (unknown) (no (unknown) (unknown) TECHNIQUE:? One (units (unknown) date) view of the chest unknown) was acquired.? (unknown) (no (unknown) (unknown) TECHNIQUE:? (units (un known) date) unknown) (unknown) (no (unknown) (unknown) Temperature 98.4 F (units (unknown) date) 03/24/22 18:50 unknown) (unknown) (no (unknown) (unknown) Temperature 98.4 F (units (unknown) date) unknown) (unknown) (no (unknown) (unknown) Temperature (units (un known) date) unknown) (unknown) (no (unknown) (unknown) Time Seen by (units (u nknown) date) Provider: 03/24/22 unknown) 19:17 (unknown) (no (unknown) (unknown) Total Bilirubin (units (unknown) date) (0.2-1.3) mg/dL unknown) (unknown) (no (unknown) (unknown) Total Bilirubin (units (unknown) date) 0.5 (0.2-1.3) mg/dL unknown) (unknown) (no (unknown) (unknown) Total Creatine (units (unknown) date) Kinase (30-135) U/L unknown) (unknown) (no (unknown) (unknown) Total Creatine (units (unknown) date) Kinase 91 (30-135) unknown) U/L (unknown) (no (unknown) (unknown) Total Protein (units ( unknown) date) (6.3-8.2) g/dL unknown) (unknown) (no (unknown) (unknown) Total Protein 7.4 (units (unknown) date) (6.3-8.2) g/dL unknown) (unknown) (no (unknown) (unknown) Trop I [Troponin (units (unknown) date) I] Stat unknown) (unknown) (no (unknown) (unknown) Troponin + CK (units ( unknown) date) Cardiac Panel Stat unknown) (unknown) (no (unknown) (unknown) Troponin I (units (unk nown) date) (0.01-0.034) ng/mL unknown) (unknown) (no (unknown) (unknown) Troponin I 0.016 (units (unknown) date) (0.01-0.034) ng/mL unknown) (unknown) (no (unknown) (unknown) Troponin I 0.018 (units (unknown) date) (0.01-0.034) ng/mL unknown) (unknown) (no (unknown) (unknown) Upset (units (unkno wn) date) unknown) (unknown) (no (unknown) (unknown) Urine Dip (units (unkn own) date) unknown) (unknown) (no (unknown) (unknown) Urine Specific (units (unknown) date) Victor 1.030 unknown) (unknown) (no (unknown) (unknown) Ventricles (units (unk nown) date) unknown) (unknown) (no (unknown) (unknown) Vital Signs - 8 hr (units (unknown) date) unknown) (unknown) (no (unknown) (unknown) Vital Signs (units (un known) date) unknown) (unknown) (no (unknown) (unknown) Vital signs: (units (u nknown) date) unknown) (unknown) (no (unknown) (unknown) WBC (4.5-11.0) (units (unknown) date) X103/uL unknown) (unknown) (no (unknown) (unknown) WBC 7.2 (4.5-11.0) (units (unknown) date) X103/uL unknown) (unknown) (no (unknown) (unknown) XR chest 1V Stat (units (unknown) date) unknown) (unknown) (no (unknown) (unknown) [Embedded Image (units (unknown) date) Not Available] unknown) (unknown) (no (unknown) (unknown) [PERTUSSIS (units (unk nown) date) VACCINES] unknown) (unknown) (no (unknown) (unknown) aerosol inhaler (units (unknown) date) (ProAir HFA) unknown) Ventilation #8.5 grams (unknown) (no (unknown) (unknown) albuterol sulfate (units (unknown) date) 90 mcg/actuation 1 unknown) puff inhalation Q6H PRN Adequate 03/08/22 (unknown) (no (unknown) (unknown) albuterol sulfate (units (unknown) date) [ProAir HFA] 90 unknown) mcg/actuation HFA aerosol inhaler (unknown) (no (unknown) (unknown) alcohol intake (units (unknown) date) frequency: 0-2 unknown) drinks per day (unknown) (no (unknown) (unknown) amoxicillin (units (un known) date) Allergy unknown) Intermediate Rash, Verified 03/24/22 18:50 (unknown) (no (unknown) (unknown) and below (units (unkn own) date) unknown) (unknown) (no (unknown) (unknown) and chest (units (unkn own) date) discomfort. EKG unknown) initially looked quite concerning with some (unknown) (no (unknown) (unknown) appear (units (unkno wn) date) unknown) (unknown) (no (unknown) (unknown) are normal in size (units (unknown) date) and shape.? unknown) (unknown) (no (unknown) (unknown) azithromycin (units (u nknown) date) Allergy unknown) Intermediate Gastrointestinal Verified 03/24/22 18:50 (unknown) (no (unknown) (unknown) better. (units (unkno wn) date) Electrolyte slept unknown) show that she is mildly hypokalemic with a potassium (unknown) (no (unknown) (unknown) ciprofloxacin (units ( unknown) date) Allergy unknown) Intermediate Gastrointestinal Verified 03/24/22 18:50 (unknown) (no (unknown) (unknown) constant all day (units (unknown) date) sharp stabbing in unknown) nature worse with breathing not consistent (unknown) (no (unknown) (unknown) dizzy. She denies (units (unknown) date) any light unknown) sensitivity or noise sensitivity. She was having (unknown) (no (unknown) (unknown) extremities (units (un known) date) unknown) (unknown) (no (unknown) (unknown) felt it was sharp (units (unknown) date) and stabbing in unknown) nature it has been there all day it is (unknown) (no (unknown) (unknown) fluticasone (units (un known) date) propionate 230 2 unknown) puff inhalation BID #12 grams 03/13/22 (unknown) (no (unknown) (unknown) following (units (unkn own) date) unknown) (unknown) (no (unknown) (unknown) given Tylenol (units ( unknown) date) Zofran fluids and unknown) morphine. The morphine started wearing but did (unknown) (no (unknown) (unknown) gluten AdvReac (units (unknown) date) Mild Stomach unknown) Verified 03/24/22 18:50 (unknown) (no (unknown) (unknown) got pulmonary (units ( unknown) date) nodule she has a unknown) mammogram scheduled for April 02 and an (unknown) (no (unknown) (unknown) guarding or (units (un known) date) rebound. unknown) (unknown) (no (unknown) (unknown) headache for (units (u nknown) date) awhile however unknown) today it got to be really bad she had to be very (unknown) (no (unknown) (unknown) headache of her (units (unknown) date) life she is unknown) neurologically intact. Head CT is negative. He is (unknown) (no (unknown) (unknown) headache (units (unkno wn) date) unknown) (unknown) (no (unknown) (unknown) help. She seemed (units (unknown) date) to tolerate it unknown) pretty well. At this time she is feeling (unknown) (no (unknown) (unknown) household members: (units (unknown) date) spouse and children unknown) (unknown) (no (unknown) (unknown) hydrocodone 5 (units ( unknown) date) mg-acetaminophen unknown) 325 1 tab PO Q6H PRN pain #10 tabs 03/05/22 (unknown) (no (unknown) (unknown) hydrocodone-acetam (units (unknown) date) inophen 5-325 mg unknown) tablet (unknown) (no (unknown) (unknown) hydromorphone (units ( unknown) date) Allergy Mild unknown) Flushing Verified 03/24/22 18:50 (unknown) (no (unknown) (unknown) ibuprofen Allergy (units (unknown) date) Mild Kidney unknown) Verified 03/24/22 18:50 (unknown) (no (unknown) (unknown) in it. She reports (units (unknown) date) that every time she unknown) has an NSAID she gets kidney/UTI (unknown) (no (unknown) (unknown) infection (units (unkn own) date) unknown) (unknown) (no (unknown) (unknown) infection, but (units (unknown) date) does not have any unknown) actual allergic reaction to it. (unknown) (no (unknown) (unknown) intact (units (unkno wn) date) unknown) (unknown) (no (unknown) (unknown) interface is (units (u nknown) date) normal.? unknown) (unknown) (no (unknown) (unknown) lesions.? (units (unkn own) date) unknown) (unknown) (no (unknown) (unknown) lumps found have (units (unknown) date) multiple pulmonary unknown) nodules in her last ED visit on March 05 (unknown) (no (unknown) (unknown) matter (units (unkno wn) date) unknown) (unknown) (no (unknown) (unknown) mcg-salmeterol 21 (units (unknown) date) mcg/actuation unknown) (unknown) (no (unknown) (unknown) membranes (units (unkn own) date) unknown) (unknown) (no (unknown) (unknown) mg tablet (units (unkn own) date) unknown) (unknown) (no (unknown) (unknown) nausea, (units (unkno wn) date) unknown) (unknown) (no (unknown) (unknown) nickel AdvReac (units (unknown) date) Mild Irritation/ unknown) Verified 03/24/22 18:50 (unknown) (no (unknown) (unknown) nonradiating. She (units (unknown) date) denies any nausea unknown) or vomiting. She reports that she is been (unknown) (no (unknown) (unknown) of 3.2 no other (units (unknown) date) abnormalities. unknown) Lactate procalcitonin are negative. Chest (unknown) (no (unknown) (unknown) ondansetron 4 mg (units (unknown) date) disintegrating 4 mg unknown) PO QID PRN nausea and 04/05/18 (unknown) (no (unknown) (unknown) ondansetron 4 mg (units (unknown) date) tablet,disintegrati unknown) ng (unknown) (no (unknown) (unknown) or any new, (units (un known) date) worsening or unknown) concerning symptoms (unknown) (no (unknown) (unknown) pain, (units (unkno wn) date) unknown) (unknown) (no (unknown) (unknown) patient (units (unkno wn) date) unknown) (unknown) (no (unknown) (unknown) presents today (units (unknown) date) with headache and unknown) chest pain. She says he has been having (unknown) (no (unknown) (unknown) redness (units (unkno wn) date) unknown) (unknown) (no (unknown) (unknown) significant T-wave (units (unknown) date) inversions however unknown) a different person went in move the leads (unknown) (no (unknown) (unknown) size.? (units (unkno wn) date) unknown) (unknown) (no (unknown) (unknown) some left-sided (units (unknown) date) chest discomfort unknown) which was worse whenever she took a breath she (unknown) (no (unknown) (unknown) suspicious (units (unk nown) date) unknown) (unknown) (no (unknown) (unknown) tablet vomiting (units (unknown) date) #14 tabs unknown) (unknown) (no (unknown) (unknown) taking Excedrin (units (unknown) date) for her migraines unknown) she did not realize that Excedrin had NSAIDs (unknown) (no (unknown) (unknown) throat was (units (unk nown) date) unknown) (unknown) (no (unknown) (unknown) tingly (units (unkno wn) date) unknown) (unknown) (no (unknown) (unknown) to inappropriate (units (unknown) date) place a now T-wave unknown) inversion has resolved. Her chest pain is (unknown) (no (unknown) (unknown) to the (units (unkno wn) date) unknown) (unknown) (no (unknown) (unknown) ultrasound at the (units (unknown) date) same time. She unknown) presents today with some dizziness headache (unknown) (no (unknown) (unknown) unremarkable.? (units (unknown) date) unknown) (unknown) (no (unknown) (unknown) vertex, with (units (u nknown) date) coronal and unknown) sagittal reformats.? For radiation dose reduction, the (unknown) (no (unknown) (unknown) was used:? (units (unk nown) date) automated exposure unknown) control, adjustment of mA and/or kV according to (unknown) (no (unknown) (unknown) with acute (units (unk nown) date) coronary syndrome. unknown) She is 2- troponins. She is having worst Result panel 613 (unknown) (no (unknown) (unknown) (no value) (units (unk nown) date) unknown) (unknown) (no (unknown) (unknown) <Electronically (units (unknown) date) signed by Danita unknown) Linsey Vila> (unknown) (no (unknown) (unknown) *Continue to take (units (unknown) date) medications as unknown) directed (unknown) (no (unknown) (unknown) *Follow up with (units (unknown) date) your primary care unknown) provider in 2-3 days or call [phone] (unknown) (no (unknown) (unknown) *Return to ER if (units (unknown) date) you should have unknown) worsening headache numbness tingling weakness (unknown) (no (unknown) (unknown) *What to do: At (units (unknown) date) this time go home unknown) rest stay hydrated (unknown) (no (unknown) (unknown) *You have been (units (unknown) date) diagnosed with unknown) migraine headaches (unknown) (no (unknown) (unknown) 02/11/23 02/11/23 (units (unknown) date) 03/24/22 unknown) Range/Units (unknown) (no (unknown) (unknown) 03/24/22 19:09 (units (unknown) date) unknown) (unknown) (no (unknown) (unknown) 03/24/22 19:16 (units (unknown) date) unknown) (unknown) (no (unknown) (unknown) 03/24/22 19:40 (units (unknown) date) unknown) (unknown) (no (unknown) (unknown) 03/24/22 20:44 (units (unknown) date) unknown) (unknown) (no (unknown) (unknown) 03/24/22 21:38 (units (unknown) date) unknown) (unknown) (no (unknown) (unknown) 03/24/22 (units (unkno wn) date) Range/Units unknown) (unknown) (no (unknown) (unknown) 03/24/22 (units (unkno wn) date) unknown) (unknown) (no (unknown) (unknown) 03/25/22 0018 (units ( unknown) date) unknown) (unknown) (no (unknown) (unknown) 1 puff INHALATION (units (unknown) date) Q6H PRN (Reason: unknown) Adequate Ventilation) Qty: 8.5 0RF (unknown) (no (unknown) (unknown) 1 tab PO Q6H PRN (units (unknown) date) (Reason: pain) Qty: unknown) 10 0RF (unknown) (no (unknown) (unknown) 18:50 03/24/22 (units (unknown) date) unknown) (unknown) (no (unknown) (unknown) 19:09 19:40 19:40 (units (unknown) date) unknown) (unknown) (no (unknown) (unknown) 19:40 19:40 19:40 (units (unknown) date) unknown) (unknown) (no (unknown) (unknown) 19:45 03/24/22 (units (unknown) date) unknown) (unknown) (no (unknown) (unknown) 2 puff inhalation (units (unknown) date) BID Qty: 12 2RF unknown) (unknown) (no (unknown) (unknown) 20:30 (units (unkno wn) date) unknown) (unknown) (no (unknown) (unknown) 20:31 03/24/22 (units (unknown) date) unknown) (unknown) (no (unknown) (unknown) 21:00 03/24/22 (units (unknown) date) unknown) (unknown) (no (unknown) (unknown) 21:17 03/24/22 (units (unknown) date) unknown) (unknown) (no (unknown) (unknown) 21:17 (units (unkno wn) date) unknown) (unknown) (no (unknown) (unknown) 21:33 03/24/22 (units (unknown) date) unknown) (unknown) (no (unknown) (unknown) 21:38 (units (unkno wn) date) unknown) (unknown) (no (unknown) (unknown) 21:46 03/24/22 (units (unknown) date) unknown) (unknown) (no (unknown) (unknown) 21:46 (units (unkno wn) date) unknown) (unknown) (no (unknown) (unknown) 22:00 03/24/22 (units (unknown) date) unknown) (unknown) (no (unknown) (unknown) 22:00 (units (unkno wn) date) unknown) (unknown) (no (unknown) (unknown) 22:30 03/24/22 (units (unknown) date) unknown) (unknown) (no (unknown) (unknown) 23:00 03/24/22 (units (unknown) date) unknown) (unknown) (no (unknown) (unknown) 23:00 (units (unkno wn) date) unknown) (unknown) (no (unknown) (unknown) 23:16 (units (unkno wn) date) unknown) (unknown) (no (unknown) (unknown) 4 mg PO QID PRN (units (unknown) date) (Reason: nausea and unknown) vomiting) Qty: 14 2RF (unknown) (no (unknown) (unknown) ? (units (unkno wn) date) unknown) (unknown) (no (unknown) (unknown) ABDOMEN: Soft, (units (unknown) date) nontender. unknown) Normoactive bowel sounds all 4 quadrants. No (unknown) (no (unknown) (unknown) ALT (<35) IU/L (units (unknown) date) unknown) (unknown) (no (unknown) (unknown) ALT 22 (<35) IU/L (units (unknown) date) unknown) (unknown) (no (unknown) (unknown) APTT (26-36) (units (u nknown) date) SECONDS unknown) (unknown) (no (unknown) (unknown) APTT 27 (26-36) (units (unknown) date) SECONDS unknown) (unknown) (no (unknown) (unknown) AST (14-36) IU/L (units (unknown) date) unknown) (unknown) (no (unknown) (unknown) AST 28 (14-36) (units (unknown) date) IU/L unknown) (unknown) (no (unknown) (unknown) Accession Number: (units (unknown) date) [id number] ?? unknown) (unknown) (no (unknown) (unknown) Accession Number: (units (unknown) date) [id number] ?? unknown) (unknown) (no (unknown) (unknown) Acct:[id number] (units (unknown) date) unknown) (unknown) (no (unknown) (unknown) Acetaminophen (units ( unknown) date) (Acetaminophen 325 unknown) Mg Tablet) 975 mg PO NOW ONE (unknown) (no (unknown) (unknown) Activity (units (unkno wn) date) Restrictions/Additi unknown) onal Instructions: (unknown) (no (unknown) (unknown) Admin: 03/24/22 (units (unknown) date) 19:52 Dose: 1,000 unknown) mls/hr (unknown) (no (unknown) (unknown) Advair HFA 230-21 (units (unknown) date) mcg/actuation HFA unknown) aerosol inhaler (unknown) (no (unknown) (unknown) Age/Sex: 36 / F (units (unknown) date) unknown) (unknown) (no (unknown) (unknown) Albumin (3.5-5.0) (units (unknown) date) g/dL unknown) (unknown) (no (unknown) (unknown) Albumin 4.3 (units (un known) date) (3.5-5.0) g/dL unknown) (unknown) (no (unknown) (unknown) Albumin/Globulin (units (unknown) date) Ratio (1.0-2.8) unknown) (unknown) (no (unknown) (unknown) Albumin/Globulin (units (unknown) date) Ratio 1.4 (1.0-2.8) unknown) (unknown) (no (unknown) (unknown) Alkaline (units (unkno wn) date) Phosphatase unknown) (38-126) U/L (unknown) (no (unknown) (unknown) Alkaline (units (unkno wn) date) Phosphatase 46 unknown) (38-126) U/L (unknown) (no (unknown) (unknown) Allergies (units (unkn own) date) unknown) (unknown) (no (unknown) (unknown) Allergy/AdvReac (units (unknown) date) Type Severity unknown) Reaction Status Date / Time (unknown) (no (unknown) (unknown) Anxiety (units (unkno wn) date) unknown) (unknown) (no (unknown) (unknown) Approved by: Juarez (units (unknown) date) Jose Fatima on unknown) 03/24/2022 at 21:23 ? (unknown) (no (unknown) (unknown) Asthma (units (unkno wn) date) unknown) (unknown) (no (unknown) (unknown) BUN (7-17) mg/dL (units (unknown) date) unknown) (unknown) (no (unknown) (unknown) BUN 12 (7-17) (units ( unknown) date) mg/dL unknown) (unknown) (no (unknown) (unknown) BUN/Creatinine (units (unknown) date) Ratio (6-22) unknown) (unknown) (no (unknown) (unknown) BUN/Creatinine (units (unknown) date) Ratio 16.7 (6-22) unknown) (unknown) (no (unknown) (unknown) Baso # (Auto) (units ( unknown) date) (0-100) /uL unknown) (unknown) (no (unknown) (unknown) Baso # (Auto) 0 (units (unknown) date) (0-100) /uL unknown) (unknown) (no (unknown) (unknown) Baso % (Auto) (units ( unknown) date) (0-2) % unknown) (unknown) (no (unknown) (unknown) Baso % (Auto) 0.3 (units (unknown) date) (0-2) % unknown) (unknown) (no (unknown) (unknown) Bedside Urine (units ( unknown) date) Bilirubin - unknown) Negative (unknown) (no (unknown) (unknown) Bedside Urine (units ( unknown) date) Glucose Negative unknown) (unknown) (no (unknown) (unknown) Bedside Urine (units ( unknown) date) Ketone - Negative unknown) (unknown) (no (unknown) (unknown) Bedside Urine (units ( unknown) date) Leukocytes - unknown) Negative (unknown) (no (unknown) (unknown) Bedside Urine (units ( unknown) date) Nitrite - Negative unknown) (unknown) (no (unknown) (unknown) Bedside Urine (units ( unknown) date) Occult Blood - unknown) Negative (unknown) (no (unknown) (unknown) Bedside Urine (units ( unknown) date) Protein - Negative unknown) (unknown) (no (unknown) (unknown) Bedside Urine (units ( unknown) date) Urobilinogen - unknown) Negative (unknown) (no (unknown) (unknown) Bedside Urine pH (units (unknown) date) 6.5 unknown) (unknown) (no (unknown) (unknown) Blood Pressure (units (unknown) date) 101/57 L 104/56 L unknown) (unknown) (no (unknown) (unknown) Blood Pressure (units (unknown) date) 108/73 unknown) (unknown) (no (unknown) (unknown) Blood Pressure (units (unknown) date) 111/56 L unknown) (unknown) (no (unknown) (unknown) Blood Pressure (units (unknown) date) 112/65 111/56 L unknown) (unknown) (no (unknown) (unknown) Blood Pressure (units (unknown) date) 03/24/22 unknown) 18:50 (unknown) (no (unknown) (unknown) Blood Pressure (units (unknown) date) 118/73 118/73 unknown) (unknown) (no (unknown) (unknown) Blood Pressure (units (unknown) date) unknown) (unknown) (no (unknown) (unknown) Bones and chest (units (unknown) date) wall:? No unknown) suspicious bony lesions.? Overlying soft tissues (unknown) (no (unknown) (unknown) Brain:? No midline (units (unknown) date) shift.? No unknown) intracranial masses or hemorrhage.? Luke-white (unknown) (no (unknown) (unknown) CARDIOVASCULAR: (units (unknown) date) Regular rate and unknown) rhythm without murmurs, rubs or gallops. (unknown) (no (unknown) (unknown) CHEST 2 VIEW, (units ( unknown) date) 12/16/2008, 21:11. unknown) (unknown) (no (unknown) (unknown) CK-MB (CK-2) Rel (units (unknown) date) Index TNP unknown) (unknown) (no (unknown) (unknown) CK-MB (CK-2) Rel (units (unknown) date) Index unknown) (unknown) (no (unknown) (unknown) CK-MB (CK-2) TNP (units (unknown) date) unknown) (unknown) (no (unknown) (unknown) CK-MB (CK-2) (units (u nknown) date) unknown) (unknown) (no (unknown) (unknown) COMPARISON:? (units (u nknown) date) [facility], unknown) CR, XR CHEST 1V, 03/05/2022, 10:32.? [place] (unknown) (no (unknown) (unknown) COMPARISON:? None. (units (unknown) date) unknown) (unknown) (no (unknown) (unknown) CSF spaces:? Basal (units (unknown) date) cisterns are unknown) patent.? No extra-axial fluid collections.? (unknown) (no (unknown) (unknown) CT Scan Report (units (unknown) date) unknown) (unknown) (no (unknown) (unknown) CT head/brain wo (units (unknown) date) con Stat unknown) (unknown) (no (unknown) (unknown) CT scan - head: (units (unknown) date) unknown) (unknown) (no (unknown) (unknown) Calcium (8.4-10.2) (units (unknown) date) mg/dL unknown) (unknown) (no (unknown) (unknown) Calcium 8.5 (units (un known) date) (8.4-10.2) mg/dL unknown) (unknown) (no (unknown) (unknown) Carbon Dioxide (units (unknown) date) (22-32) mmol/L unknown) (unknown) (no (unknown) (unknown) Carbon Dioxide 24 (units (unknown) date) (22-32) mmol/L unknown) (unknown) (no (unknown) (unknown) Chest x-ray: (units (u nknown) date) unknown) (unknown) (no (unknown) (unknown) Chief Complaint: (units (unknown) date) Headache unknown) (unknown) (no (unknown) (unknown) Chloride (98-107) (units (unknown) date) mmol/L unknown) (unknown) (no (unknown) (unknown) Chloride 103 (units (u nknown) date) (98-107) mmol/L unknown) (unknown) (no (unknown) (unknown) Clinical (units (unkno wn) date) Impression: unknown) (unknown) (no (unknown) (unknown) Complete Blood (units (unknown) date) Count AUTO DIFF unknown) Stat (unknown) (no (unknown) (unknown) Comprehensive (units ( unknown) date) Metabolic Panel unknown) Stat (unknown) (no (unknown) (unknown) Course (units (unkno wn) date) unknown) (unknown) (no (unknown) (unknown) Covid-19 + FLU A/B (units (unknown) date) + RSV - PCR Stat unknown) (unknown) (no (unknown) (unknown) Creatinine (units (unk nown) date) (0.52-1.04) mg/dL unknown) (unknown) (no (unknown) (unknown) Creatinine 0.72 (units (unknown) date) (0.52-1.04) mg/dL unknown) (unknown) (no (unknown) (unknown) : 1985 (units (unknown) date) Acct:[id number] unknown) (unknown) (no (unknown) (unknown) : 1985 (units (unknown) date) unknown) (unknown) (no (unknown) (unknown) Date of Service: (units (unknown) date) 03/24/22 unknown) (unknown) (no (unknown) (unknown) Departure (units (unkn own) date) unknown) (unknown) (no (unknown) (unknown) Depression (units (unk nown) date) unknown) (unknown) (no (unknown) (unknown) Dictated by: Juarez (units (unknown) date) Joes Fatima on unknown) 03/24/2022 at 20:01 (unknown) (no (unknown) (unknown) Dictated by: Juarez (units (unknown) date) Jose Fatima on unknown) 03/24/2022 at 21:23 ? ? (unknown) (no (unknown) (unknown) Discharge Plan (units (unknown) date) unknown) (unknown) (no (unknown) (unknown) Discontinued (units (u nknown) date) Medications unknown) (unknown) (no (unknown) (unknown) Documented By: BS (units (unknown) date) unknown) (unknown) (no (unknown) (unknown) Documented By: GC (units (unknown) date) unknown) (unknown) (no (unknown) (unknown) ECG Data (units (unkno wn) date) unknown) (unknown) (no (unknown) (unknown) ED Orders (units (unkn own) date) unknown) (unknown) (no (unknown) (unknown) EKG 1. Sinus rhythm (units (unknown) date) rate 65 AR interval unknown) 124 QRS 94 QTC 397 biphasic T-wave noted (unknown) (no (unknown) (unknown) EKG 2. Sinus (units (u nknown) date) rhythm with unknown) persistent biphasic T-waves in V2 and V3 with T-wave (unknown) (no (unknown) (unknown) EKG 3. Significant (units (unknown) date) improvement mild unknown) T-wave inversion in V2 slight T-wave (unknown) (no (unknown) (unknown) EKG-12 Lead Stat (units (unknown) date) unknown) (unknown) (no (unknown) (unknown) ER Physician: (units ( unknown) date) Danita Vila D.O. unknown) (unknown) (no (unknown) (unknown) EXTREMITIES: (units (u nknown) date) Normal range of unknown) motion, no clubbing or edema. Neurovascularly (unknown) (no (unknown) (unknown) Emergency Report (units (unknown) date) unknown) (unknown) (no (unknown) (unknown) Eos # (Auto) (units (u nknown) date) (0-450) /uL unknown) (unknown) (no (unknown) (unknown) Eos # (Auto) 0 (units (unknown) date) (0-450) /uL unknown) (unknown) (no (unknown) (unknown) Eos % (Auto) (2-4) (units (unknown) date) % unknown) (unknown) (no (unknown) (unknown) Eos % (Auto) 0.1 L (units (unknown) date) (2-4) % unknown) (unknown) (no (unknown) (unknown) Esterase (units (unkno wn) date) unknown) (unknown) (no (unknown) (unknown) Estimated GFR > 60 (units (unknown) date) (>60) mL/min unknown) (unknown) (no (unknown) (unknown) Estimated GFR (units ( unknown) date) (>60) mL/min unknown) (unknown) (no (unknown) (unknown) Exam (units (unkno wn) date) unknown) (unknown) (no (unknown) (unknown) FINDINGS:? (units (unk nown) date) unknown) (unknown) (no (unknown) (unknown) GENERAL: Thin (units ( unknown) date) 36-year-old female unknown) (unknown) (no (unknown) (unknown) General (units (unkno wn) date) unknown) (unknown) (no (unknown) (unknown) Globulin (1.7-4.1) (units (unknown) date) g/dL unknown) (unknown) (no (unknown) (unknown) Globulin 3.1 (units (u nknown) date) (1.7-4.1) g/dL unknown) (unknown) (no (unknown) (unknown) Glucose (70-100) (units (unknown) date) mg/dL unknown) (unknown) (no (unknown) (unknown) Glucose 147 H (units ( unknown) date) (70-100) mg/dL unknown) (unknown) (no (unknown) (unknown) H/O exploratory (units (unknown) date) laparotomy unknown) (unknown) (no (unknown) (unknown) H/O left knee (units ( unknown) date) surgery unknown) (unknown) (no (unknown) (unknown) HEENT: Head (units (un known) date) atraumatic,EOMI, unknown) pupils reactive, face symmetric, moist mucous (unknown) (no (unknown) (unknown) HFA inhaler (units (un known) date) (Advair HFA) unknown) (unknown) (no (unknown) (unknown) HPI - Headache (units (unknown) date) unknown) (unknown) (no (unknown) (unknown) HPI Narrative: (units (unknown) date) unknown) (unknown) (no (unknown) (unknown) Hct (36-46) % (units ( unknown) date) unknown) (unknown) (no (unknown) (unknown) Hct 35.7 L (36-46) (units (unknown) date) % unknown) (unknown) (no (unknown) (unknown) Hgb (12.0-16.0) (units (unknown) date) g/dL unknown) (unknown) (no (unknown) (unknown) Hgb 12.1 (units (unkno wn) date) (12.0-16.0) g/dL unknown) (unknown) (no (unknown) (unknown) History of Present (units (unknown) date) Illness unknown) (unknown) (no (unknown) (unknown) History of open (units (unknown) date) heart surgery unknown) (unknown) (no (unknown) (unknown) History of surgery (units (unknown) date) unknown) (unknown) (no (unknown) (unknown) Hospital, , (units ( unknown) date) unknown) (unknown) (no (unknown) (unknown) IMPRESSION:? (units (u nknown) date) Normal for age, unknown) source of current chest pain symptoms is not seen. (unknown) (no (unknown) (unknown) IMPRESSION:? (units (u nknown) date) Normal for age, unknown) source of headache is not found. (unknown) (no (unknown) (unknown) INDICATIONS:? (units ( unknown) date) chest pain unknown) (unknown) (no (unknown) (unknown) INDICATIONS:? (units ( unknown) date) severe headache unknown) (unknown) (no (unknown) (unknown) INR (0.9-1.3) (units ( unknown) date) unknown) (unknown) (no (unknown) (unknown) INR 1.0 (0.9-1.3) (units (unknown) date) unknown) (unknown) (no (unknown) (unknown) Image quality:? (units (unknown) date) Excellent.? unknown) (unknown) (no (unknown) (unknown) Imaging Data (units (u nknown) date) unknown) (unknown) (no (unknown) (unknown) Influenza A (units (un known) date) (RT-PCR) (NEGATIVE) unknown) (unknown) (no (unknown) (unknown) Influenza A (units (un known) date) (RT-PCR) Flu a unknown) negative (NEGATIVE) (unknown) (no (unknown) (unknown) Influenza B (units (un known) date) (RT-PCR) (NEGATIVE) unknown) (unknown) (no (unknown) (unknown) Influenza B (units (un known) date) (RT-PCR) Flu b unknown) negative (NEGATIVE) (unknown) (no (unknown) (unknown) Initial Vital (units ( unknown) date) Signs unknown) (unknown) (no (unknown) (unknown) Initial Vital (units ( unknown) date) Signs: unknown) (unknown) (no (unknown) (unknown) Instructions: DI (units (unknown) date) for Migraine unknown) (unknown) (no (unknown) (unknown) Interpretation: (units (unknown) date) unknown) (unknown) (no (unknown) (unknown) [facility] (units (unknown) date) [address] unknown) [place] [address] (unknown) (no (unknown) (unknown) Lab Data (units (unkno wn) date) unknown) (unknown) (no (unknown) (unknown) Lab Results (units (un known) date) unknown) (unknown) (no (unknown) (unknown) Labs: (units (unkno wn) date) unknown) (unknown) (no (unknown) (unknown) Lactate (0.7-2.1) (units (unknown) date) mmol/L unknown) (unknown) (no (unknown) (unknown) Lactate (Lactic (units (unknown) date) Acid) Stat unknown) (unknown) (no (unknown) (unknown) Lactate 1.5 (units (un known) date) (0.7-2.1) mmol/L unknown) (unknown) (no (unknown) (unknown) Last Admin: (units (un known) date) 03/24/22 19:52 unknown) Dose: 975 mg (unknown) (no (unknown) (unknown) Last Admin: (units (un known) date) 03/24/22 21:09 unknown) Dose: 2 mg (unknown) (no (unknown) (unknown) Last Admin: (units (un known) date) 03/24/22 21:09 unknown) Dose: 4 mg (unknown) (no (unknown) (unknown) Last Admin: (units (un known) date) 03/24/22 22:56 unknown) Dose: 4 mg (unknown) (no (unknown) (unknown) Last Infusion: (units (unknown) date) 03/24/22 21:09 unknown) Dose: 0 mls/hr (unknown) (no (unknown) (unknown) Lipase (23-300) (units (unknown) date) U/L unknown) (unknown) (no (unknown) (unknown) Lipase 341 H (units (u nknown) date) (23-300) U/L unknown) (unknown) (no (unknown) (unknown) Lipase Stat (units (un known) date) unknown) (unknown) (no (unknown) (unknown) Loc: ED (units (unkno wn) date) unknown) (unknown) (no (unknown) (unknown) Lungs and pleura:? (units (unknown) date) Lungs are clear.? unknown) No pleural effusions or pneumothorax.? (unknown) (no (unknown) (unknown) Lymph # (Auto) (units (unknown) date) (3032-4276) /uL unknown) (unknown) (no (unknown) (unknown) Lymph # (Auto) 500 (units (unknown) date) L (6875-7022) /uL unknown) (unknown) (no (unknown) (unknown) Lymph % (Auto) (units (unknown) date) (25-40) % unknown) (unknown) (no (unknown) (unknown) Lymph % (Auto) 7.4 (units (unknown) date) L (25-40) % unknown) (unknown) (no (unknown) (unknown) [id number] (units (unk nown) date) unknown) (unknown) (no (unknown) (unknown) MCH (26-34) PG (units (unknown) date) unknown) (unknown) (no (unknown) (unknown) MCH 30.6 (26-34) (units (unknown) date) PG unknown) (unknown) (no (unknown) (unknown) MCHC (30-36) % (units (unknown) date) unknown) (unknown) (no (unknown) (unknown) MCHC 34.0 (30-36) (units (unknown) date) % unknown) (unknown) (no (unknown) (unknown) MCV (80-100) fL (units (unknown) date) unknown) (unknown) (no (unknown) (unknown) MCV 90.1 (80-100) (units (unknown) date) fL unknown) (unknown) (no (unknown) (unknown) MDM - Headache (units (unknown) date) unknown) (unknown) (no (unknown) (unknown) MDM Narrative (units ( unknown) date) unknown) (unknown) (no (unknown) (unknown) MR#: [id number] (units (unknown) date) unknown) (unknown) (no (unknown) (unknown) Magnesium (units (unkn own) date) (1.6-2.3) mg/dL unknown) (unknown) (no (unknown) (unknown) Magnesium 1.8 (units ( unknown) date) (1.6-2.3) mg/dL unknown) (unknown) (no (unknown) (unknown) Magnesium Stat (units (unknown) date) unknown) (unknown) (no (unknown) (unknown) Mediastinum:? (units ( unknown) date) Mediastinal unknown) contours appear normal.? Heart size is normal.? (unknown) (no (unknown) (unknown) Medical History (units (unknown) date) (Reviewed 03/24/22 unknown) @ 22:55 by Danita Vila DO) (unknown) (no (unknown) (unknown) Medical decision (units (unknown) date) making narrative: unknown) (unknown) (no (unknown) (unknown) Medication (units (unk nown) date) Instructions unknown) Recorded (unknown) (no (unknown) (unknown) Migraine (units (unkno wn) date) unknown) (unknown) (no (unknown) (unknown) Mild persistent (units (unknown) date) asthma unknown) (unknown) (no (unknown) (unknown) Mode of arrival: (units (unknown) date) Ambulatory unknown) (unknown) (no (unknown) (unknown) [place] # (Auto) (units ( unknown) date) (0-900) /uL unknown) (unknown) (no (unknown) (unknown) [place] # (Auto) 400 (units (unknown) date) (0-900) /uL unknown) (unknown) (no (unknown) (unknown) [place] % (Auto) (units ( unknown) date) (3-14) % unknown) (unknown) (no (unknown) (unknown) [place] % (Auto) 6.1 (units (unknown) date) (3-14) % unknown) (unknown) (no (unknown) (unknown) Morphine Sulfate (units (unknown) date) (Morphine 2 Mg/Ml unknown) Inj) 2 mg IV NOW ONE (unknown) (no (unknown) (unknown) Morphine Sulfate (units (unknown) date) (Morphine 4 Mg/Ml unknown) Inj) 4 mg IV NOW ONE (unknown) (no (unknown) (unknown) NEUROLOGICAL: (units ( unknown) date) Alert and oriented unknown) x4. Swimming Pool Cleaner strength equal bilaterally moving all (unknown) (no (unknown) (unknown) Neut # (Auto) (units ( unknown) date) (3121-4593) /uL unknown) (unknown) (no (unknown) (unknown) Neut # (Auto) 6200 (units (unknown) date) (2547-4124) /uL unknown) (unknown) (no (unknown) (unknown) Neut % (Auto) (units ( unknown) date) (50-75) % unknown) (unknown) (no (unknown) (unknown) Neut % (Auto) 86.1 (units (unknown) date) H (50-75) % unknown) (unknown) (no (unknown) (unknown) No Action (units (unkn own) date) unknown) (unknown) (no (unknown) (unknown) Noncontrast 4.5 mm (units (unknown) date) thick angled axial unknown) sections acquired from the foramen magnum (unknown) (no (unknown) (unknown) Ondansetron HCl (units (unknown) date) (Ondansetron 4 Mg/2 unknown) Ml Inj) 4 mg IV NOW ONE (unknown) (no (unknown) (unknown) Ordered: (units (unkno wn) date) unknown) (unknown) (no (unknown) (unknown) Ordering Provider: (units (unknown) date) Botnick,Danita D.O. unknown) (unknown) (no (unknown) (unknown) Orders (units (unkno wn) date) unknown) (unknown) (no (unknown) (unknown) Oxygen Delivery (units (unknown) date) Method 03/24/22 unknown) 18:50 (unknown) (no (unknown) (unknown) Oxygen Delivery (units (unknown) date) Method Room Air unknown) Room Air (unknown) (no (unknown) (unknown) Oxygen Delivery (units (unknown) date) Method Room Air unknown) (unknown) (no (unknown) (unknown) Oxygen Delivery (units (unknown) date) Method unknown) (unknown) (no (unknown) (unknown) PROCEDURE:? CT (units (unknown) date) HEAD/BRAIN WO CON unknown) (unknown) (no (unknown) (unknown) PROCEDURE:? XR (units (unknown) date) CHEST 1V unknown) (unknown) (no (unknown) (unknown) PT (10.1-12.7) (units (unknown) date) SECONDS unknown) (unknown) (no (unknown) (unknown) PT 11.8 (units (unkno wn) date) (10.1-12.7) SECONDS unknown) (unknown) (no (unknown) (unknown) Partial (units (unkno wn) date) Thromboplastin Time unknown) Stat (unknown) (no (unknown) (unknown) Patient (units (unkno wn) date) 36-year-old female unknown) currently being worked up for breast cancer she is (unknown) (no (unknown) (unknown) Patient (units (unkno wn) date) Disposition: Home unknown) (unknown) (no (unknown) (unknown) Patient History (units (unknown) date) unknown) (unknown) (no (unknown) (unknown) Patient is a (units (u nknown) date) 36-year-old female unknown) currently being worked up for bilateral breast (unknown) (no (unknown) (unknown) Patient: (units (unkno wn) date) Carmina Castillo unknown) MR#: (unknown) (no (unknown) (unknown) Patient: (units (unkno wn) date) Carmina Castillo unknown) (unknown) (no (unknown) (unknown) Penicillins (units (un known) date) Allergy unknown) Intermediate Rash Verified 03/24/22 18:50 (unknown) (no (unknown) (unknown) Pertussis Vaccines (units (unknown) date) Allergy Unknown unknown) Seizure Verified 03/24/22 18:50 (unknown) (no (unknown) (unknown) Plt Count (units (unkn own) date) (150-400) X103/uL unknown) (unknown) (no (unknown) (unknown) Plt Count 232 (units ( unknown) date) (150-400) X103/uL unknown) (unknown) (no (unknown) (unknown) Potassium (units (unkn own) date) (3.4-5.1) mmol/L unknown) (unknown) (no (unknown) (unknown) Potassium 3.2 L (units (unknown) date) (3.4-5.1) mmol/L unknown) (unknown) (no (unknown) (unknown) Prescriptions: (units (unknown) date) unknown) (unknown) (no (unknown) (unknown) Previous Rx's (units ( unknown) date) unknown) (unknown) (no (unknown) (unknown) Procalcitonin (units ( unknown) date) (<0.5) ng/mL unknown) (unknown) (no (unknown) (unknown) Procalcitonin 0.14 (units (unknown) date) (<0.5) ng/mL unknown) (unknown) (no (unknown) (unknown) Procalcitonin Stat (units (unknown) date) unknown) (unknown) (no (unknown) (unknown) Procedure: CT (units ( unknown) date) head/brain wo con unknown) (unknown) (no (unknown) (unknown) Procedure: XR (units ( unknown) date) chest 1V unknown) (unknown) (no (unknown) (unknown) Prothrombin Time (units (unknown) date) INR Stat unknown) (unknown) (no (unknown) (unknown) Pulse Oximetry 100 (units (unknown) date) 98 unknown) (unknown) (no (unknown) (unknown) Pulse Oximetry 97 (units (unknown) date) 03/24/22 18:50 unknown) (unknown) (no (unknown) (unknown) Pulse Oximetry 97 (units (unknown) date) 97 97 unknown) (unknown) (no (unknown) (unknown) Pulse Oximetry 97 (units (unknown) date) 98 unknown) (unknown) (no (unknown) (unknown) Pulse Oximetry 97 (units (unknown) date) 99 unknown) (unknown) (no (unknown) (unknown) Pulse Oximetry 97 (units (unknown) date) unknown) (unknown) (no (unknown) (unknown) Pulse Rate 63 77 (units (unknown) date) unknown) (unknown) (no (unknown) (unknown) Pulse Rate 65 68 (units (unknown) date) unknown) (unknown) (no (unknown) (unknown) Pulse Rate 65 (units ( unknown) date) unknown) (unknown) (no (unknown) (unknown) Pulse Rate 66 (units ( unknown) date) unknown) (unknown) (no (unknown) (unknown) Pulse Rate 70 (units ( unknown) date) 03/24/22 18:50 unknown) (unknown) (no (unknown) (unknown) Pulse Rate 70 78 (units (unknown) date) unknown) (unknown) (no (unknown) (unknown) Pulse Rate 72 67 (units (unknown) date) 65 unknown) (unknown) (no (unknown) (unknown) RBC (4.0-5.2) (units ( unknown) date) X106/uL unknown) (unknown) (no (unknown) (unknown) RBC 3.96 L (units (unk nown) date) (4.0-5.2) X106/uL unknown) (unknown) (no (unknown) (unknown) RDW (11.6-14.8) % (units (unknown) date) unknown) (unknown) (no (unknown) (unknown) RDW 12.2 (units (unkno wn) date) (11.6-14.8) % unknown) (unknown) (no (unknown) (unknown) RESPIRATORY: (units (u nknown) date) Breath sounds equal unknown) bilaterally, no wheezes rales or rhonchi. (unknown) (no (unknown) (unknown) ROS Unobtainable: (units (unknown) date) All systems unknown) reviewed + are unremarkable except as noted in HPI (unknown) (no (unknown) (unknown) RSV (PCR) (units (unkn own) date) (Negative) unknown) (unknown) (no (unknown) (unknown) RSV (PCR) Negative (units (unknown) date) (Negative) unknown) (unknown) (no (unknown) (unknown) Radiologist's (units ( unknown) date) Impression: unknown) (unknown) (no (unknown) (unknown) Referrals: (units (unk nown) date) unknown) (unknown) (no (unknown) (unknown) Related Data (units (u nknown) date) unknown) (unknown) (no (unknown) (unknown) Respiratory Rate (units (unknown) date) 20 03/24/22 18:50 unknown) (unknown) (no (unknown) (unknown) Respiratory Rate (units (unknown) date) 20 19 unknown) (unknown) (no (unknown) (unknown) Respiratory Rate (units (unknown) date) 22 14 unknown) (unknown) (no (unknown) (unknown) Respiratory Rate (units (unknown) date) 22 unknown) (unknown) (no (unknown) (unknown) Respiratory Rate (units (unknown) date) 23 unknown) (unknown) (no (unknown) (unknown) Respiratory Rate (units (unknown) date) 32 H unknown) (unknown) (no (unknown) (unknown) Respiratory Rate (units (unknown) date) 35 H 53 H 24 unknown) (unknown) (no (unknown) (unknown) Review of Systems (units (unknown) date) unknown) (unknown) (no (unknown) (unknown) Wes Herrera ARNP (units (unknown) date) [Primary Care unknown) Provider] (unknown) (no (unknown) (unknown) S/P laparoscopic (units (unknown) date) supracervical unknown) hysterectomy (04/04/18) (unknown) (no (unknown) (unknown) SARS-CoV-2 (PCR) (units (unknown) date) (Negative) unknown) (unknown) (no (unknown) (unknown) SARS-CoV-2 (PCR) (units (unknown) date) Negative (Negative) unknown) (unknown) (no (unknown) (unknown) SKIN: Warm, dry, (units (unknown) date) no laceration, no unknown) petechiae, no rashes or lesions. (unknown) (no (unknown) (unknown) Signed By: (units (unk nown) date) unknown) (unknown) (no (unknown) (unknown) Signed (units (unkno wn) date) unknown) (unknown) (no (unknown) (unknown) Sinuses:? (units (unkn own) date) Visualized sinuses unknown) and mastoids are clear.? (unknown) (no (unknown) (unknown) Skull and face:? (units (unknown) date) Calvarium and unknown) visualized facial bones are intact, without (unknown) (no (unknown) (unknown) Smoking Status: (units (unknown) date) Former smoker unknown) (unknown) (no (unknown) (unknown) Social History (units (unknown) date) (Reviewed 03/24/22 unknown) @ 22:55 by Danita Vila DO) (unknown) (no (unknown) (unknown) Sodium (137-145) (units (unknown) date) mmol/L unknown) (unknown) (no (unknown) (unknown) Sodium 138 (units (unk nown) date) (137-145) mmol/L unknown) (unknown) (no (unknown) (unknown) Sodium Chloride (units (unknown) date) (Normal Saline unknown) 0.9%) 1,000 mls @ 1,000 mls/hr IV BOLUS ONE (unknown) (no (unknown) (unknown) Stand Alone Forms: (units (unknown) date) Patient Portal/API unknown) (unknown) (no (unknown) (unknown) Stated Complaint: (units (unknown) date) headache, back unknown) pain, L sided chest pain, body pain (unknown) (no (unknown) (unknown) Stop: 03/24/22 (units (unknown) date) 19:21 unknown) (unknown) (no (unknown) (unknown) Stop: 03/24/22 (units (unknown) date) 20:16 unknown) (unknown) (no (unknown) (unknown) Stop: 03/24/22 (units (unknown) date) 20:45 unknown) (unknown) (no (unknown) (unknown) Stop: 03/24/22 (units (unknown) date) 22:45 unknown) (unknown) (no (unknown) (unknown) Substance Use (units ( unknown) date) Type: marijuana unknown) (unknown) (no (unknown) (unknown) Surgical History (units (unknown) date) (Reviewed 03/24/22 unknown) @ 22:55 by Danita Vila DO) (unknown) (no (unknown) (unknown) Surgical changes (units (unknown) date) and devices:? unknown) None.? (unknown) (no (unknown) (unknown) TECHNIQUE:? One (units (unknown) date) view of the chest unknown) was acquired.? (unknown) (no (unknown) (unknown) TECHNIQUE:? (units (un known) date) unknown) (unknown) (no (unknown) (unknown) Temperature 97.2 F (units (unknown) date) L unknown) (unknown) (no (unknown) (unknown) Temperature 98.4 F (units (unknown) date) 03/24/22 18:50 unknown) (unknown) (no (unknown) (unknown) Temperature 98.4 F (units (unknown) date) unknown) (unknown) (no (unknown) (unknown) Temperature (units (un known) date) unknown) (unknown) (no (unknown) (unknown) Time Seen by (units (u nknown) date) Provider: 03/24/22 unknown) 19:17 (unknown) (no (unknown) (unknown) Total Bilirubin (units (unknown) date) (0.2-1.3) mg/dL unknown) (unknown) (no (unknown) (unknown) Total Bilirubin (units (unknown) date) 0.5 (0.2-1.3) mg/dL unknown) (unknown) (no (unknown) (unknown) Total Creatine (units (unknown) date) Kinase (30-135) U/L unknown) (unknown) (no (unknown) (unknown) Total Creatine (units (unknown) date) Kinase 91 (30-135) unknown) U/L (unknown) (no (unknown) (unknown) Total Protein (units ( unknown) date) (6.3-8.2) g/dL unknown) (unknown) (no (unknown) (unknown) Total Protein 7.4 (units (unknown) date) (6.3-8.2) g/dL unknown) (unknown) (no (unknown) (unknown) Trop I [Troponin (units (unknown) date) I] Stat unknown) (unknown) (no (unknown) (unknown) Troponin + CK (units ( unknown) date) Cardiac Panel Stat unknown) (unknown) (no (unknown) (unknown) Troponin I (units (unk nown) date) (0.01-0.034) ng/mL unknown) (unknown) (no (unknown) (unknown) Troponin I 0.016 (units (unknown) date) (0.01-0.034) ng/mL unknown) (unknown) (no (unknown) (unknown) Troponin I 0.018 (units (unknown) date) (0.01-0.034) ng/mL unknown) (unknown) (no (unknown) (unknown) Upset (units (unkno wn) date) unknown) (unknown) (no (unknown) (unknown) Urine Dip (units (unkn own) date) unknown) (unknown) (no (unknown) (unknown) Urine Specific (units (unknown) date) Victor 1.030 unknown) (unknown) (no (unknown) (unknown) Ventricles (units (unk nown) date) unknown) (unknown) (no (unknown) (unknown) Vital Signs - 8 hr (units (unknown) date) unknown) (unknown) (no (unknown) (unknown) Vital Signs (units (un known) date) unknown) (unknown) (no (unknown) (unknown) Vital signs: (units (u nknown) date) unknown) (unknown) (no (unknown) (unknown) WBC (4.5-11.0) (units (unknown) date) X103/uL unknown) (unknown) (no (unknown) (unknown) WBC 7.2 (4.5-11.0) (units (unknown) date) X103/uL unknown) (unknown) (no (unknown) (unknown) XR chest 1V Stat (units (unknown) date) unknown) (unknown) (no (unknown) (unknown) [Embedded Image (units (unknown) date) Not Available] unknown) (unknown) (no (unknown) (unknown) [PERTUSSIS (units (unk nown) date) VACCINES] unknown) (unknown) (no (unknown) (unknown) aerosol inhaler (units (unknown) date) (ProAir HFA) unknown) Ventilation #8.5 grams (unknown) (no (unknown) (unknown) albuterol sulfate (units (unknown) date) 90 mcg/actuation 1 unknown) puff inhalation Q6H PRN Adequate 03/08/22 (unknown) (no (unknown) (unknown) albuterol sulfate (units (unknown) date) [ProAir HFA] 90 unknown) mcg/actuation HFA aerosol inhaler (unknown) (no (unknown) (unknown) alcohol intake (units (unknown) date) frequency: 0-2 unknown) drinks per day (unknown) (no (unknown) (unknown) amoxicillin (units (un known) date) Allergy unknown) Intermediate Rash, Verified 03/24/22 18:50 (unknown) (no (unknown) (unknown) and V6 possibly (units (unknown) date) due to new lead unknown) placement (unknown) (no (unknown) (unknown) and below (units (unkn own) date) unknown) (unknown) (no (unknown) (unknown) and chest (units (unkn own) date) discomfort. EKG unknown) initially looked quite concerning with some (unknown) (no (unknown) (unknown) appear (units (unkno wn) date) unknown) (unknown) (no (unknown) (unknown) are normal in size (units (unknown) date) and shape.? unknown) (unknown) (no (unknown) (unknown) azithromycin (units (u nknown) date) Allergy unknown) Intermediate Gastrointestinal Verified 03/24/22 18:50 (unknown) (no (unknown) (unknown) better. (units (unkno wn) date) Electrolyte slept unknown) show that she is mildly hypokalemic with a potassium (unknown) (no (unknown) (unknown) ciprofloxacin (units ( unknown) date) Allergy unknown) Intermediate Gastrointestinal Verified 03/24/22 18:50 (unknown) (no (unknown) (unknown) constant all day (units (unknown) date) sharp stabbing in unknown) nature worse with breathing not consistent (unknown) (no (unknown) (unknown) did not show any (units (unknown) date) abnormalities. Has unknown) good outpatient follow-up, and a (unknown) (no (unknown) (unknown) dizzy. She denies (units (unknown) date) any light unknown) sensitivity or noise sensitivity. She was having (unknown) (no (unknown) (unknown) elevation or (units (u nknown) date) depressions unknown) certainly more prominent than previous EKGs (unknown) (no (unknown) (unknown) extremities (units (un known) date) unknown) (unknown) (no (unknown) (unknown) felt it was sharp (units (unknown) date) and stabbing in unknown) nature it has been there all day it is (unknown) (no (unknown) (unknown) fluticasone (units (un known) date) propionate 230 2 unknown) puff inhalation BID #12 grams 03/13/22 (unknown) (no (unknown) (unknown) following (units (unkn own) date) unknown) (unknown) (no (unknown) (unknown) given Tylenol (units ( unknown) date) Zofran fluids and unknown) morphine. The morphine started wearing but did (unknown) (no (unknown) (unknown) gluten AdvReac (units (unknown) date) Mild Stomach unknown) Verified 03/24/22 18:50 (unknown) (no (unknown) (unknown) got pulmonary (units ( unknown) date) nodule she has a unknown) mammogram scheduled for April 02 and an (unknown) (no (unknown) (unknown) guarding or (units (un known) date) rebound. unknown) (unknown) (no (unknown) (unknown) headache for (units (u nknown) date) awhile however unknown) today it got to be really bad she had to be very (unknown) (no (unknown) (unknown) headache of her (units (unknown) date) life she is unknown) neurologically intact. Head CT is negative. He is (unknown) (no (unknown) (unknown) headache (units (unkno wn) date) unknown) (unknown) (no (unknown) (unknown) help. She seemed (units (unknown) date) to tolerate it unknown) pretty well. At this time she is feeling (unknown) (no (unknown) (unknown) household members: (units (unknown) date) spouse and children unknown) (unknown) (no (unknown) (unknown) hydrocodone 5 (units ( unknown) date) mg-acetaminophen unknown) 325 1 tab PO Q6H PRN pain #10 tabs 03/05/22 (unknown) (no (unknown) (unknown) hydrocodone-acetam (units (unknown) date) inophen 5-325 mg unknown) tablet (unknown) (no (unknown) (unknown) hydromorphone (units ( unknown) date) Allergy Mild unknown) [place] Verified 03/24/22 18:50 (unknown) (no (unknown) (unknown) ibuprofen Allergy (units (unknown) date) Mild Kidney unknown) Verified 03/24/22 18:50 (unknown) (no (unknown) (unknown) in V3 with (units (unk nown) date) significant T-wave unknown) inversion in V4 and V5 and V6 without ST (unknown) (no (unknown) (unknown) in it. She reports (units (unknown) date) that every time she unknown) has an NSAID she gets kidney/UTI (unknown) (no (unknown) (unknown) infection (units (unkn own) date) unknown) (unknown) (no (unknown) (unknown) infection, but (units (unknown) date) does not have any unknown) actual allergic reaction to it. (unknown) (no (unknown) (unknown) intact (units (unkno wn) date) unknown) (unknown) (no (unknown) (unknown) interface is (units (u nknown) date) normal.? unknown) (unknown) (no (unknown) (unknown) inversion V4 V5 V6 (units (unknown) date) definitely new no unknown) ST changes (unknown) (no (unknown) (unknown) inversion in V3 no (units (unknown) date) real significant or unknown) prominent T-wave inversions in V for V5 (unknown) (no (unknown) (unknown) lesions.? (units (unkn own) date) unknown) (unknown) (no (unknown) (unknown) lumps found have (units (unknown) date) multiple pulmonary unknown) nodules in her last ED visit on March 05 (unknown) (no (unknown) (unknown) matter (units (unkno wn) date) unknown) (unknown) (no (unknown) (unknown) mcg-salmeterol 21 (units (unknown) date) mcg/actuation unknown) (unknown) (no (unknown) (unknown) membranes (units (unkn own) date) unknown) (unknown) (no (unknown) (unknown) mg tablet (units (unkn own) date) unknown) (unknown) (no (unknown) (unknown) nausea, (units (unkno wn) date) unknown) (unknown) (no (unknown) (unknown) nickel AdvReac (units (unknown) date) Mild Irritation/ unknown) Verified 03/24/22 18:50 (unknown) (no (unknown) (unknown) nonradiating. She (units (unknown) date) denies any nausea unknown) or vomiting. She reports that she is been (unknown) (no (unknown) (unknown) of 3.2 no other (units (unknown) date) abnormalities. unknown) Lactate procalcitonin are negative. Chest x-ray (unknown) (no (unknown) (unknown) ondansetron 4 mg (units (unknown) date) disintegrating 4 mg unknown) PO QID PRN nausea and 04/05/18 (unknown) (no (unknown) (unknown) ondansetron 4 mg (units (unknown) date) tablet,disintegrati unknown) ng (unknown) (no (unknown) (unknown) or any new, (units (un known) date) worsening or unknown) concerning symptoms (unknown) (no (unknown) (unknown) pain, (units (unkno wn) date) unknown) (unknown) (no (unknown) (unknown) patient (units (unkno wn) date) unknown) (unknown) (no (unknown) (unknown) presents today (units (unknown) date) with headache and unknown) chest pain. She says he has been having (unknown) (no (unknown) (unknown) redness (units (unkno wn) date) unknown) (unknown) (no (unknown) (unknown) significant T-wave (units (unknown) date) inversions however unknown) a different person went in move the leads (unknown) (no (unknown) (unknown) size.? (units (unkno wn) date) unknown) (unknown) (no (unknown) (unknown) some left-sided (units (unknown) date) chest discomfort unknown) which was worse whenever she took a breath she (unknown) (no (unknown) (unknown) supportive (units (unk nown) date) partner. unknown) (unknown) (no (unknown) (unknown) suspicious (units (unk nown) date) unknown) (unknown) (no (unknown) (unknown) tablet vomiting (units (unknown) date) #14 tabs unknown) (unknown) (no (unknown) (unknown) taking Excedrin (units (unknown) date) for her migraines unknown) she did not realize that Excedrin had NSAIDs (unknown) (no (unknown) (unknown) throat was (units (unk nown) date) unknown) (unknown) (no (unknown) (unknown) tingly (units (unkno wn) date) unknown) (unknown) (no (unknown) (unknown) to inappropriate (units (unknown) date) place a now T-wave unknown) inversion has resolved. Her chest pain is (unknown) (no (unknown) (unknown) to the (units (unkno wn) date) unknown) (unknown) (no (unknown) (unknown) ultrasound at the (units (unknown) date) same time. She unknown) presents today with some dizziness headache (unknown) (no (unknown) (unknown) unremarkable.? (units (unknown) date) unknown) (unknown) (no (unknown) (unknown) vertex, with (units (u nkwn) date) coronal and unknown) sagittal reformats.? For radiation dose reduction, the (unknown) (no (unknown) (unknown) was used:? (units (unk n) date) automated exposure unknown) control, adjustment of mA and/or kV according to (unknown) (no (unknown) (unknown) with acute (units (unk nown) date) coronary syndrome. unknown) She is 2- troponins. She is having worst Result panel 614 (unknown) (no (unknown) (unknown) (no value) (units (unk nown) date) unknown) (unknown) (no (unknown) (unknown) 03/26/22 (units (unkno wn) date) unknown) (unknown) (no (unknown) (unknown) 03/26/22] (units (unkn own) date) unknown) (unknown) (no (unknown) (unknown) 11:39) (units (unkno wn) date) unknown) (unknown) (no (unknown) (unknown) 11:41 (units (unkno wn) date) unknown) (unknown) (no (unknown) (unknown) 36 yo female (units (u nknown) date) presents today for unknown) 2 week f/u asthma and multiple issues (unknown) (no (unknown) (unknown) Age/Sex: 36 / F (units (unknown) date) Date of Service: unknown) (unknown) (no (unknown) (unknown) Allergies (units (unkn own) date) unknown) (unknown) (no (unknown) (unknown) [place], [place] (units ( unknown) date) [id number] unknown) (unknown) (no (unknown) (unknown) Anxiety (units (unkno wn) date) unknown) (unknown) (no (unknown) (unknown) Asthma (units (unkno wn) date) unknown) (unknown) (no (unknown) (unknown) Attending Dr: (units ( unknown) date) Wes SCOTT unknown) (unknown) (no (unknown) (unknown) BMI 18.5 (units (unkno wn) date) unknown) (unknown) (no (unknown) (unknown) BP 97/57 L (units (unk nown) date) unknown) (unknown) (no (unknown) (unknown) Blood Pressure (units (unknown) date) Location Rt radial unknown) (unknown) (no (unknown) (unknown) : 1985 (units (unknown) date) Acct:[id number] unknown) (unknown) (no (unknown) (unknown) Depression (units (unk nown) date) unknown) (unknown) (no (unknown) (unknown) Dept at (units (unkno wn) date) . unknown) (unknown) (no (unknown) (unknown) Documented By: (units (unknown) date) Wes Herrera unknown) 03/26/22 1138 (unknown) (no (unknown) (unknown) Draft (units (unkno wn) date) unknown) (unknown) (no (unknown) (unknown) [facility] (units (unknown) date) Office Visit unknown) (unknown) (no (unknown) (unknown) [facility]) (unknown) (no (unknown) (unknown) [place] (units (unkno wn) date) unknown) (unknown) (no (unknown) (unknown) Gastrointestinal (units (unknown) date) Upset unknown) (unknown) (no (unknown) (unknown) H/O exploratory (units (unknown) date) laparotomy unknown) (unknown) (no (unknown) (unknown) H/O left knee (units ( unknown) date) surgery unknown) (unknown) (no (unknown) (unknown) HFA) 2 puff (units (un known) date) inhalation BID #12 unknown) grams 03/13/22 [Rx Confirmed 03/26/22] (unknown) (no (unknown) (unknown) Height 5 ft 3 in (units (unknown) date) unknown) (unknown) (no (unknown) (unknown) History of open (units (unknown) date) heart surgery unknown) (unknown) (no (unknown) (unknown) History of surgery (units (unknown) date) unknown) (unknown) (no (unknown) (unknown) Intake Note: (units (u nknown) date) unknown) (unknown) (no (unknown) (unknown) Intake performed (units (unknown) date) by: Germaine Bates unknown) (unknown) (no (unknown) (unknown) Intake (units (unkno wn) date) unknown) (unknown) (no (unknown) (unknown) Intake- Clincial (units (unknown) date) Staff unknown) (unknown) (no (unknown) (unknown) Irritation/redness (units (unknown) date) unknown) (unknown) (no (unknown) (unknown) Kidney infection (units (unknown) date) unknown) (unknown) (no (unknown) (unknown) Last Menstural (units (unknown) date) Cycle + Details unknown) (unknown) (no (unknown) (unknown) Loc: [facility] (units (unkno wn) date) unknown) (unknown) (no (unknown) (unknown) [id number] (units (unk nown) date) unknown) (unknown) (no (unknown) (unknown) Medical History (units (unknown) date) (Reviewed 03/24/22 unknown) @ 22:55 by Danita Vila DO) (unknown) (no (unknown) (unknown) Medications (units (un known) date) unknown) (unknown) (no (unknown) (unknown) Mild persistent (units (unknown) date) asthma unknown) (unknown) (no (unknown) (unknown) Other Menstrual (units (unknown) date) Period: Other unknown) (unknown) (no (unknown) (unknown) Oxygen Delivery (units (unknown) date) Method room air unknown) (unknown) (no (unknown) (unknown) PFSH (units (unkno wn) date) unknown) (unknown) (no (unknown) (unknown) Patient: (units (unkno wn) date) Carmina Castillo unknown) MR#: (unknown) (no (unknown) (unknown) Penicillins (units (un known) date) Allergy unknown) (Intermediate, Verified 03/26/22 11:39) (unknown) (no (unknown) (unknown) Pertussis Vaccines (units (unknown) date) [PERTUSSIS unknown) VACCINES] Allergy (Unknown, Verified 03/26/22 (unknown) (no (unknown) (unknown) Position Sitting (units (unknown) date) unknown) (unknown) (no (unknown) (unknown) Pulse 57 L (units (unk nown) date) unknown) (unknown) (no (unknown) (unknown) Pulse Oximetry (%) (units (unknown) date) 99 unknown) (unknown) (no (unknown) (unknown) Pulse Source (units (u nknown) date) Monitor unknown) (unknown) (no (unknown) (unknown) Rash (units (unkno wn) date) unknown) (unknown) (no (unknown) (unknown) Rash, throat was (units (unknown) date) tingly unknown) (unknown) (no (unknown) (unknown) Reason For Visit (units (unknown) date) unknown) (unknown) (no (unknown) (unknown) Respiration 16 (units (unknown) date) unknown) (unknown) (no (unknown) (unknown) S/P laparoscopic (units (unknown) date) supracervical unknown) hysterectomy (04/04/18) (unknown) (no (unknown) (unknown) Seizure (units (unkno wn) date) unknown) (unknown) (no (unknown) (unknown) Signed By: (units (unk nown) date) unknown) (unknown) (no (unknown) (unknown) Smoking Status: (units (unknown) date) Former smoker unknown) (unknown) (no (unknown) (unknown) Social History (units (unknown) date) unknown) (unknown) (no (unknown) (unknown) Stomach pain, (units ( unknown) date) nausea, headache unknown) (unknown) (no (unknown) (unknown) Surgical History (units (unknown) date) (Reviewed 03/24/22 unknown) @ 22:55 by Danita Vila DO) (unknown) (no (unknown) (unknown) This note may have (units (unknown) date) been all or unknown) partially generated using voice recognition (unknown) (no (unknown) (unknown) Tobacco + (units (unkn own) date) Substance Use unknown) (unknown) (no (unknown) (unknown) Tobacco Status (units (unknown) date) unknown) (unknown) (no (unknown) (unknown) Visit Reasons: 2wk (units (unknown) date) f/u asthma/multiple unknown) issues 02 (unknown) (no (unknown) (unknown) Vitals (units (unkno wn) date) unknown) (unknown) (no (unknown) (unknown) Weight 104 lb 8 oz (units (unknown) date) unknown) (unknown) (no (unknown) (unknown) albuterol sulfate (units (unknown) date) 90 mcg/actuation unknown) aerosol inhaler (ProAir HFA) 1 puff (unknown) (no (unknown) (unknown) amoxicillin (units (un known) date) Allergy unknown) (Intermediate, Verified 03/26/22 11:39) (unknown) (no (unknown) (unknown) azithromycin (units (u nknown) date) Allergy unknown) (Intermediate, Verified 03/26/22 11:39) (unknown) (no (unknown) (unknown) ciprofloxacin (units ( unknown) date) Allergy unknown) (Intermediate, Verified 03/26/22 11:39) (unknown) (no (unknown) (unknown) fluticasone (units (un known) date) propionate 230 unknown) mcg-salmeterol 21 mcg/actuation HFA inhaler (Advair (unknown) (no (unknown) (unknown) gluten Adverse (units (unknown) date) Reaction (Mild, unknown) Verified 03/26/22 11:39) (unknown) (no (unknown) (unknown) have occurred. If (units (unknown) date) there are any unknown) questions, please contact the Medical Records (unknown) (no (unknown) (unknown) household members: (units (unknown) date) spouse and children unknown) (unknown) (no (unknown) (unknown) hydromorphone (units ( unknown) date) Allergy (Mild, unknown) Verified 03/26/22 11:39) (unknown) (no (unknown) (unknown) ibuprofen Allergy (units (unknown) date) (Mild, Verified unknown) 03/26/22 11:39) (unknown) (no (unknown) (unknown) inhalation Q6H PRN (units (unknown) date) Adequate unknown) Ventilation #8.5 grams 03/08/22 [Rx Confirmed (unknown) (no (unknown) (unknown) may occur. (units (unk nown) date) Occasional unknown) wrong-word or 'sound-alike' substitutions may have (unknown) (no (unknown) (unknown) nickel Adverse (units (unknown) date) Reaction (Mild, unknown) Verified 03/26/22 11:39) (unknown) (no (unknown) (unknown) occurred due to (units (unknown) date) the inherent unknown) limitations of voice recognition software. Please (unknown) (no (unknown) (unknown) ondansetron 4 mg (units (unknown) date) disintegrating unknown) tablet 4 mg PO QID PRN nausea and vomiting #14 (unknown) (no (unknown) (unknown) read the note (units ( unknown) date) carefully and unknown) recognize, using context, where these substitutions (unknown) (no (unknown) (unknown) software. Although (units (unknown) date) every effort is unknown) made to edit content, milling machine operator gear errors (unknown) (no (unknown) (unknown) tabs 04/05/18 [Rx (units (unknown) date) Confirmed 03/26/22] unknown) Result panel 615 (unknown) (no (unknown) (unknown) (no value) (units (unk nown) date) unknown) (unknown) (no (unknown) (unknown) 03/26/22 (units (unkno wn) date) unknown) (unknown) (no (unknown) (unknown) 03/26/22] (units (unkn own) date) unknown) (unknown) (no (unknown) (unknown) 11:39) (units (unkno wn) date) unknown) (unknown) (no (unknown) (unknown) 11:41 (units (unkno wn) date) unknown) (unknown) (no (unknown) (unknown) 36 yo female (units (u nknown) date) presents today for 2 unknown) week f/u asthma and multiple issues (unknown) (no (unknown) (unknown) 36-year-old female (units (unknown) date) presents to unknown) establish here.? She lives in [place], (unknown) (no (unknown) (unknown) Age/Sex: 36 / F (units (unknown) date) Date of Service: unknown) (unknown) (no (unknown) (unknown) Allergies (units (unkn own) date) unknown) (unknown) (no (unknown) (unknown) [place] [address] (unit s (unknown) date) unknown) (unknown) (no (unknown) (unknown) Anxiety (units (unkno wn) date) unknown) (unknown) (no (unknown) (unknown) Asthma (units (unkno wn) date) unknown) (unknown) (no (unknown) (unknown) Attending Dr: (units ( unknown) date) Wes SCOTT unknown) (unknown) (no (unknown) (unknown) BMI 18.5 (units (unkno wn) date) unknown) (unknown) (no (unknown) (unknown) BP 97/57 L (units (unk nown) date) unknown) (unknown) (no (unknown) (unknown) Blood Pressure (units (unknown) date) Location Rt radial unknown) (unknown) (no (unknown) (unknown) CT chest abdomen (units (unknown) date) pelvis which showed unknown) multiple pulmonary nodules, all 3 mL or (unknown) (no (unknown) (unknown) Chief Complaint (units (unknown) date) unknown) (unknown) (no (unknown) (unknown) Chief Complaint: (units (unknown) date) f/u unknown) (unknown) (no (unknown) (unknown) : 1985 (units (unknown) date) Acct:[id number] unknown) (unknown) (no (unknown) (unknown) Depression (units (unk nown) date) unknown) (unknown) (no (unknown) (unknown) Dept at (units (unkno wn) date) . unknown) (unknown) (no (unknown) (unknown) Details: (units (unkno wn) date) unknown) (unknown) (no (unknown) (unknown) Documented By: (units (unknown) date) JavierWes unknown) 03/26/22 1138 (unknown) (no (unknown) (unknown) Draft (units (unkno wn) date) unknown) (unknown) (no (unknown) (unknown) Family Practice (units (unknown) date) Office Visit unknown) (unknown) (no (unknown) (unknown) [facility] ([facility] unknown) (unknown) (no (unknown) (unknown) [place] (units (unkno wn) date) unknown) (unknown) (no (unknown) (unknown) Gastrointestinal (units (unknown) date) Upset unknown) (unknown) (no (unknown) (unknown) H/O exploratory (units (unknown) date) laparotomy unknown) (unknown) (no (unknown) (unknown) H/O left knee (units ( unknown) date) surgery unknown) (unknown) (no (unknown) (unknown) HFA) 2 puff (units (un known) date) inhalation BID #12 unknown) grams 03/13/22 [Rx Confirmed 03/26/22] (unknown) (no (unknown) (unknown) HPI (units (unkno wn) date) unknown) (unknown) (no (unknown) (unknown) Height 160.02 cm (units (unknown) date) unknown) (unknown) (no (unknown) (unknown) History of open (units (unknown) date) heart surgery unknown) (unknown) (no (unknown) (unknown) History of surgery (units (unknown) date) unknown) (unknown) (no (unknown) (unknown) Intake Note: (units (u nknown) date) unknown) (unknown) (no (unknown) (unknown) Intake performed (units (unknown) date) by: Germaine Bates unknown) (unknown) (no (unknown) (unknown) Intake (units (unkno wn) date) unknown) (unknown) (no (unknown) (unknown) Intake- Clincial (units (unknown) date) Staff unknown) (unknown) (no (unknown) (unknown) Irritation/redness (units (unknown) date) unknown) (unknown) (no (unknown) (unknown) Kidney infection (units (unknown) date) unknown) (unknown) (no (unknown) (unknown) Last Menstural (units (unknown) date) Cycle + Details unknown) (unknown) (no (unknown) (unknown) Loc: [facility] (units (unkno wn) date) unknown) (unknown) (no (unknown) (unknown) [id number] (units (unk nown) date) unknown) (unknown) (no (unknown) (unknown) Medical History (units (unknown) date) (Reviewed 03/24/22 @ unknown) 22:55 by Danita Vila DO) (unknown) (no (unknown) (unknown) Medications (units (un known) date) unknown) (unknown) (no (unknown) (unknown) Mild persistent (units (unknown) date) asthma unknown) (unknown) (no (unknown) (unknown) Mild persistent (units (unknown) date) asthma:? lung exam unknown) unremarkable in clinic; however, based on her (unknown) (no (unknown) (unknown) Other Menstrual (units (unknown) date) Period: Other unknown) (unknown) (no (unknown) (unknown) Oxygen Delivery (units (unknown) date) Method room air unknown) (unknown) (no (unknown) (unknown) PFSH (units (unkno wn) date) unknown) (unknown) (no (unknown) (unknown) Past medical (units (u nknown) date) history notable for unknown) anxiety and depression, asthma, lumbar (unknown) (no (unknown) (unknown) Patient has (units (un known) date) struggled with unknown) anxiety and depression.? She has been on medication (unknown) (no (unknown) (unknown) Patient reports (units (unknown) date) that for her asthma unknown) she is needing to use her albuterol rescue (unknown) (no (unknown) (unknown) Patient tells me (units (unknown) date) that she is wary of unknown) the medical system ever since she had what (unknown) (no (unknown) (unknown) Patient was in the (units (unknown) date) ED on March 05.? unknown) She presented to the ED with complaint (unknown) (no (unknown) (unknown) Patient was seen (units (unknown) date) for an ED follow-up unknown) last week by Sofia Patino who placed an (unknown) (no (unknown) (unknown) Patient: (units (unkno wn) date) Carmina Castillo unknown) MR#: (unknown) (no (unknown) (unknown) Penicillins Allergy (unit s (unknown) date) (Intermediate, unknown) Verified 03/26/22 11:39) (unknown) (no (unknown) (unknown) Pertussis Vaccines (units (unknown) date) [PERTUSSIS VACCINES] unknown) Allergy (Unknown, Verified 03/26/22 (unknown) (no (unknown) (unknown) Position Sitting (units (unknown) date) unknown) (unknown) (no (unknown) (unknown) Pulse 57 L (units (unk nown) date) unknown) (unknown) (no (unknown) (unknown) Pulse Oximetry (%) (units (unknown) date) 99 unknown) (unknown) (no (unknown) (unknown) Pulse Source (units (u nknown) date) Monitor unknown) (unknown) (no (unknown) (unknown) Rash (units (unkno wn) date) unknown) (unknown) (no (unknown) (unknown) Rash, throat was (units (unknown) date) tingly unknown) (unknown) (no (unknown) (unknown) Reason For Visit (units (unknown) date) unknown) (unknown) (no (unknown) (unknown) Respiration 16 (units (unknown) date) unknown) (unknown) (no (unknown) (unknown) S/P laparoscopic (units (unknown) date) supracervical unknown) hysterectomy (04/04/18) (unknown) (no (unknown) (unknown) Seizure (units (unkno wn) date) unknown) (unknown) (no (unknown) (unknown) Signed By: (units (unk nown) date) unknown) (unknown) (no (unknown) (unknown) Smoking Status: (units (unknown) date) Former smoker unknown) (unknown) (no (unknown) (unknown) Social History (units (unknown) date) unknown) (unknown) (no (unknown) (unknown) Stomach pain, (units ( unknown) date) nausea, headache unknown) (unknown) (no (unknown) (unknown) Surgical History (units (unknown) date) (Reviewed 03/24/22 @ unknown) 22:55 by Danita Vila DO) (unknown) (no (unknown) (unknown) This note may have (units (unknown) date) been all or unknown) partially generated using voice recognition (unknown) (no (unknown) (unknown) Tobacco + Substance (unit s (unknown) date) Use unknown) (unknown) (no (unknown) (unknown) Tobacco Status (units (unknown) date) unknown) (unknown) (no (unknown) (unknown) Visit Reasons: 2wk (units (unknown) date) f/u asthma/multiple unknown) issues 02 (unknown) (no (unknown) (unknown) Vitals (units (unkno wn) date) unknown) (unknown) (no (unknown) (unknown) [place] with her (unit s (unknown) date) and her 3 unknown) kids ages 6, 11, 17.? 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 She (unknown) (no (unknown) (unknown) albuterol sulfate (units (unknown) date) 90 mcg/actuation unknown) aerosol inhaler (ProAir HFA) 1 puff (unknown) (no (unknown) (unknown) amoxicillin Allergy (unit s (unknown) date) (Intermediate, unknown) Verified 03/26/22 11:39) (unknown) (no (unknown) (unknown) and she would like (units (unknown) date) to undergo unknown) psychotherapy again. (unknown) (no (unknown) (unknown) around 2019; it is (units (unknown) date) unclear whether she unknown) needs to be seen by Cardiology for (unknown) (no (unknown) (unknown) azithromycin (units (u nknown) date) Allergy unknown) (Intermediate, Verified 03/26/22 11:39) (unknown) (no (unknown) (unknown) benefit from (units (u nknown) date) additional time off unknown) of work to recover.? We agreed that we will (unknown) (no (unknown) (unknown) branches.? (units (unk nown) date) unknown) (unknown) (no (unknown) (unknown) ciprofloxacin (units ( unknown) date) Allergy unknown) (Intermediate, Verified 03/26/22 11:39) (unknown) (no (unknown) (unknown) denies any ongoing (units (unknown) date) issues unknown) postoperatively.? 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 She unknown) states that ultimately the abnormality which was (unknown) (no (unknown) (unknown) fluticasone (units (un known) date) propionate 230 unknown) mcg-salmeterol 21 mcg/actuation HFA inhaler (Advair (unknown) (no (unknown) (unknown) gluten Adverse (units (unknown) date) Reaction (Mild, unknown) Verified 03/26/22 11:39) (unknown) (no (unknown) (unknown) had to call out of (units (unknown) date) work and feels that unknown) due to multiple ongoing issues she would (unknown) (no (unknown) (unknown) have occurred. If (units (unknown) date) there are any unknown) questions, please contact the Medical Records (unknown) (no (unknown) (unknown) household members: (units (unknown) date) spouse and children unknown) (unknown) (no (unknown) (unknown) hydromorphone (units ( unknown) date) Allergy (Mild, unknown) Verified 03/26/22 11:39) (unknown) (no (unknown) (unknown) ibuprofen Allergy (units (unknown) date) (Mild, Verified unknown) 03/26/22 11:39) (unknown) (no (unknown) (unknown) in the past but (units (unknown) date) these have not unknown) helped; she felt that psychotherapy has helped (unknown) (no (unknown) (unknown) indicated.? Trial (units (unknown) date) Advair.? Patient is unknown) also still recovering from viral URI which (unknown) (no (unknown) (unknown) inhalation Q6H PRN (units (unknown) date) Adequate Ventilation unknown) #8.5 grams 03/08/22 [Rx Confirmed (unknown) (no (unknown) (unknown) inhaler 2-3 times (units (unknown) date) daily.? She has had unknown) asthma for many years.? She is been on (unknown) (no (unknown) (unknown) led to (units (unkno wn) date) echocardiogram being unknown) performed.? She reports there was concern for an (unknown) (no (unknown) (unknown) less with no (units (u nknown) date) evidence of acute unknown) process.? Patient has already been referred to (unknown) (no (unknown) (unknown) maintenance inhaler (units (unknown) date) in the past; she unknown) recalls being on Flovent which she felt did (unknown) (no (unknown) (unknown) may occur. (units (unk nown) date) Occasional unknown) wrong-word or 'sound-alike' substitutions may have (unknown) (no (unknown) (unknown) monitoring. (units (un known) date) unknown) (unknown) (no (unknown) (unknown) nickel Adverse (units (unknown) date) Reaction (Mild, unknown) Verified 03/26/22 11:39) (unknown) (no (unknown) (unknown) not work very (units ( unknown) date) well.? She is not unknown) sure what other inhalers she has tried. (unknown) (no (unknown) (unknown) occurred due to the (unit s (unknown) date) inherent limitations unknown) of voice recognition software. Please (unknown) (no (unknown) (unknown) of chest pain, (units ( unknown) date) cough, sternal pain, unknown) bilateral breast lumps.? At the ED she had a (unknown) (no (unknown) (unknown) ondansetron 4 mg (units (unknown) date) disintegrating unknown) tablet 4 mg PO QID PRN nausea and vomiting #14 (unknown) (no (unknown) (unknown) order for a (units (un known) date) three-month unknown) follow-up CT chest. ?Bilateral diagnostic mammogram and (unknown) (no (unknown) (unknown) pulmonary nodule, (units (unknown) date) open heart surgery unknown) 2008. (unknown) (no (unknown) (unknown) pulmonology to (units (unknown) date) address this. unknown) (unknown) (no (unknown) (unknown) read the note (units ( unknown) date) carefully and unknown) recognize, using context, where these substitutions (unknown) (no (unknown) (unknown) recommend 2 weeks (units (unknown) date) off from work and unknown) she will see me for follow-up visit in 2 (unknown) (no (unknown) (unknown) report of frequency (unit s (unknown) date) of use of rescue unknown) inhaler a maintenance medication is (unknown) (no (unknown) (unknown) she describes as (units (unknown) date) ?unnecessary open unknown) heart surgery? at [place] in 2008.? 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 (unknown) (no (unknown) (unknown) spondylosis, (units (u nknown) date) spondylolisthesis at unknown) L4-5, lumbar radiculopathy, esophageal spasm, (unknown) (no (unknown) (unknown) states that a (units (u nknown) date) provider heard an unknown) abnormal sound when listening to her heart which (unknown) (no (unknown) (unknown) tabs 04/05/18 [Rx (units (unknown) date) Confirmed 03/26/22] unknown) (unknown) (no (unknown) (unknown) thought to be (units ( unknown) date) present based on the unknown) echocardiogram was not present.? 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 then unknown) got nauseous, significant AL. (unknown) (no (unknown) (unknown) ultrasound were (units (unknown) date) already ordered. unknown) ?Ms. Patino performed a breast exam at that (unknown) (no (unknown) (unknown) visit and (units (unkn own) date) encouraged the unknown) patient to schedule imaging as ordered. (unknown) (no (unknown) (unknown) was part of the (units (unknown) date) cluster of symptoms unknown) with which she presented to the ED. she has (unknown) (no (unknown) (unknown) weeks.? Contact us (units (unknown) date) sooner for any unknown) problems.? (unknown) (no (unknown) (unknown) would be lower in (units (unknown) date) stress.? 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 616 (unknown) (no (unknown) (unknown) (no value) (units (unk nown) date) unknown) (unknown) (no (unknown) (unknown) 03/26/22 (units (unkno wn) date) unknown) (unknown) (no (unknown) (unknown) 03/26/22] (units (unkn own) date) unknown) (unknown) (no (unknown) (unknown) 11:39) (units (unkno wn) date) unknown) (unknown) (no (unknown) (unknown) 11:41 (units (unkno wn) date) unknown) (unknown) (no (unknown) (unknown) 36 yo female (units (u nknown) date) presents today for 2 unknown) week f/u asthma and multiple issues (unknown) (no (unknown) (unknown) 36-year-old female (units (unknown) date) presents to unknown) establish here.? She lives in [place], (unknown) (no (unknown) (unknown) Age/Sex: 36 / F (units (unknown) date) Date of Service: unknown) (unknown) (no (unknown) (unknown) Allergies (units (unkn own) date) unknown) (unknown) (no (unknown) (unknown) [place] [id number] (unit s (unknown) date) unknown) (unknown) (no (unknown) (unknown) Anxiety (units (unkno wn) date) unknown) (unknown) (no (unknown) (unknown) Asthma (units (unkno wn) date) unknown) (unknown) (no (unknown) (unknown) Attending Dr: (units ( unknown) date) Wes SCOTT unknown) (unknown) (no (unknown) (unknown) BMI 18.5 (units (unkno wn) date) unknown) (unknown) (no (unknown) (unknown) BP 97/57 L (units (unk nown) date) unknown) (unknown) (no (unknown) (unknown) Blood Pressure (units (unknown) date) Location Rt radial unknown) (unknown) (no (unknown) (unknown) CT chest abdomen (units (unknown) date) pelvis which showed unknown) multiple pulmonary nodules, all 3 mL or (unknown) (no (unknown) (unknown) Chief Complaint (units (unknown) date) unknown) (unknown) (no (unknown) (unknown) Chief Complaint: (units (unknown) date) f/u unknown) (unknown) (no (unknown) (unknown) : 1985 (units (unknown) date) Acct:[id number] unknown) (unknown) (no (unknown) (unknown) Depression (units (unk nown) date) unknown) (unknown) (no (unknown) (unknown) Dept at (units (unkno wn) date) . unknown) (unknown) (no (unknown) (unknown) Details: (units (unkno wn) date) unknown) (unknown) (no (unknown) (unknown) Documented By: (units (unknown) date) Wes Herrera unknown) 03/26/22 1138 (unknown) (no (unknown) (unknown) Draft (units (unkno wn) date) unknown) (unknown) (no (unknown) (unknown) Family Practice (units (unknown) date) Office Visit unknown) (unknown) (no (unknown) (unknown) [facility] unknown) (unknown) (no (unknown) (unknown) [place] (units (unkno wn) date) unknown) (unknown) (no (unknown) (unknown) Gastrointestinal (units (unknown) date) Upset unknown) (unknown) (no (unknown) (unknown) H/O exploratory (units (unknown) date) laparotomy unknown) (unknown) (no (unknown) (unknown) H/O left knee (units ( unknown) date) surgery unknown) (unknown) (no (unknown) (unknown) HFA) 2 puff (units (un known) date) inhalation BID #12 unknown) grams 03/13/22 [Rx Confirmed 03/26/22] (unknown) (no (unknown) (unknown) HPI (units (unkno wn) date) unknown) (unknown) (no (unknown) (unknown) Height 160.02 cm (units (unknown) date) unknown) (unknown) (no (unknown) (unknown) History of open (units (unknown) date) heart surgery unknown) (unknown) (no (unknown) (unknown) History of surgery (units (unknown) date) unknown) (unknown) (no (unknown) (unknown) Intake Note: (units (u nknown) date) unknown) (unknown) (no (unknown) (unknown) Intake performed (units (unknown) date) by: Germaine Bates unknown) (unknown) (no (unknown) (unknown) Intake (units (unkno wn) date) unknown) (unknown) (no (unknown) (unknown) Intake- Clincial (units (unknown) date) Staff unknown) (unknown) (no (unknown) (unknown) Irritation/redness (units (unknown) date) unknown) (unknown) (no (unknown) (unknown) Kidney infection (units (unknown) date) unknown) (unknown) (no (unknown) (unknown) Last Menstural (units (unknown) date) Cycle + Details unknown) (unknown) (no (unknown) (unknown) Loc: [facility] (units (unkno wn) date) unknown) (unknown) (no (unknown) (unknown) [id number] (units (unk nown) date) unknown) (unknown) (no (unknown) (unknown) Medical History (units (unknown) date) (Reviewed 03/24/22 @ unknown) 22:55 by Danita Vila DO) (unknown) (no (unknown) (unknown) Medications (units (un known) date) unknown) (unknown) (no (unknown) (unknown) Mild persistent (units (unknown) date) asthma unknown) (unknown) (no (unknown) (unknown) Mild persistent (units (unknown) date) asthma:? lung exam unknown) unremarkable in clinic; however, based on her (unknown) (no (unknown) (unknown) Other Menstrual (units (unknown) date) Period: Other unknown) (unknown) (no (unknown) (unknown) Oxygen Delivery (units (unknown) date) Method room air unknown) (unknown) (no (unknown) (unknown) PFSH (units (unkno wn) date) unknown) (unknown) (no (unknown) (unknown) Past medical (units (u nknown) date) history notable for unknown) anxiety and depression, asthma, lumbar (unknown) (no (unknown) (unknown) Patient has (units (un known) date) struggled with unknown) anxiety and depression.? She has been on medication (unknown) (no (unknown) (unknown) Patient reports (units (unknown) date) that for her asthma unknown) she is needing to use her albuterol rescue (unknown) (no (unknown) (unknown) Patient tells me (units (unknown) date) that she is wary of unknown) the medical system ever since she had what (unknown) (no (unknown) (unknown) Patient was in the (units (unknown) date) ED on March 05.? unknown) She presented to the ED with complaint (unknown) (no (unknown) (unknown) Patient was seen (units (unknown) date) for an ED follow-up unknown) last week by Sofia Patino who placed an (unknown) (no (unknown) (unknown) Patient: (units (unkno wn) date) Carmina Castillo unknown) MR#: (unknown) (no (unknown) (unknown) Penicillins Allergy (unit s (unknown) date) (Intermediate, unknown) Verified 03/26/22 11:39) (unknown) (no (unknown) (unknown) Pertussis Vaccines (units (unknown) date) [PERTUSSIS VACCINES] unknown) Allergy (Unknown, Verified 03/26/22 (unknown) (no (unknown) (unknown) Position Sitting (units (unknown) date) unknown) (unknown) (no (unknown) (unknown) Pulse 57 L (units (unk nown) date) unknown) (unknown) (no (unknown) (unknown) Pulse Oximetry (%) (units (unknown) date) 99 unknown) (unknown) (no (unknown) (unknown) Pulse Source (units (u nknown) date) Monitor unknown) (unknown) (no (unknown) (unknown) Rash (units (unkno wn) date) unknown) (unknown) (no (unknown) (unknown) Rash, throat was (units (unknown) date) tingly unknown) (unknown) (no (unknown) (unknown) Reason For Visit (units (unknown) date) unknown) (unknown) (no (unknown) (unknown) Respiration 16 (units (unknown) date) unknown) (unknown) (no (unknown) (unknown) S/P laparoscopic (units (unknown) date) supracervical unknown) hysterectomy (04/04/18) (unknown) (no (unknown) (unknown) Seizure (units (unkno wn) date) unknown) (unknown) (no (unknown) (unknown) Signed By: (units (unk nown) date) unknown) (unknown) (no (unknown) (unknown) Smoking Status: (units (unknown) date) Former smoker unknown) (unknown) (no (unknown) (unknown) Social History (units (unknown) date) unknown) (unknown) (no (unknown) (unknown) Stomach pain, (units ( unknown) date) nausea, headache unknown) (unknown) (no (unknown) (unknown) Surgical History (units (unknown) date) (Reviewed 03/24/22 @ unknown) 22:55 by Danita Vila DO) (unknown) (no (unknown) (unknown) This note may have (units (unknown) date) been all or unknown) partially generated using voice recognition (unknown) (no (unknown) (unknown) Tobacco + Substance (unit s (unknown) date) Use unknown) (unknown) (no (unknown) (unknown) Tobacco Status (units (unknown) date) unknown) (unknown) (no (unknown) (unknown) Visit Reasons: 2wk (units (unknown) date) f/u asthma/multiple unknown) issues 02 (unknown) (no (unknown) (unknown) Vitals (units (unkno wn) date) unknown) (unknown) (no (unknown) (unknown) [place] with her (unit s (unknown) date) and her 3 unknown) kids ages 6, 11, 17.? 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 She (unknown) (no (unknown) (unknown) albuterol sulfate (units (unknown) date) 90 mcg/actuation unknown) aerosol inhaler (ProAir HFA) 1 puff (unknown) (no (unknown) (unknown) amoxicillin Allergy (unit s (unknown) date) (Intermediate, unknown) Verified 03/26/22 11:39) (unknown) (no (unknown) (unknown) and she would like (units (unknown) date) to undergo unknown) psychotherapy again. (unknown) (no (unknown) (unknown) around 2019; it is (units (unknown) date) unclear whether she unknown) needs to be seen by Cardiology for (unknown) (no (unknown) (unknown) azithromycin (units (u nknown) date) Allergy unknown) (Intermediate, Verified 03/26/22 11:39) (unknown) (no (unknown) (unknown) benefit from (units (u nknown) date) additional time off unknown) of work to recover.? We agreed that we will (unknown) (no (unknown) (unknown) branches.? (units (unk nown) date) unknown) (unknown) (no (unknown) (unknown) ciprofloxacin (units ( unknown) date) Allergy unknown) (Intermediate, Verified 03/26/22 11:39) (unknown) (no (unknown) (unknown) denies any ongoing (units (unknown) date) issues unknown) postoperatively.? 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 She unknown) states that ultimately the abnormality which was (unknown) (no (unknown) (unknown) fluticasone (units (un known) date) propionate 230 unknown) mcg-salmeterol 21 mcg/actuation HFA inhaler (Advair (unknown) (no (unknown) (unknown) gluten Adverse (units (unknown) date) Reaction (Mild, unknown) Verified 03/26/22 11:39) (unknown) (no (unknown) (unknown) had to call out of (units (unknown) date) work and feels that unknown) due to multiple ongoing issues she would (unknown) (no (unknown) (unknown) has mammo/us 04/02 (units (unknown) date) unknown) (unknown) (no (unknown) (unknown) have occurred. If (units (unknown) date) there are any unknown) questions, please contact the Medical Records (unknown) (no (unknown) (unknown) household members: (units (unknown) date) spouse and children unknown) (unknown) (no (unknown) (unknown) hydromorphone (units ( unknown) date) Allergy (Mild, unknown) Verified 03/26/22 11:39) (unknown) (no (unknown) (unknown) ibuprofen Allergy (units (unknown) date) (Mild, Verified unknown) 03/26/22 11:39) (unknown) (no (unknown) (unknown) in the past but (units (unknown) date) these have not unknown) helped; she felt that psychotherapy has helped (unknown) (no (unknown) (unknown) indicated.? Trial (units (unknown) date) Advair.? Patient is unknown) also still recovering from viral URI which (unknown) (no (unknown) (unknown) inhalation Q6H PRN (units (unknown) date) Adequate Ventilation unknown) #8.5 grams 03/08/22 [Rx Confirmed (unknown) (no (unknown) (unknown) inhaler 2-3 times (units (unknown) date) daily.? She has had unknown) asthma for many years.? She is been on (unknown) (no (unknown) (unknown) led to (units (unkno wn) date) echocardiogram being unknown) performed.? She reports there was concern for an (unknown) (no (unknown) (unknown) less with no (units (u nknown) date) evidence of acute unknown) process.? Patient has already been referred to (unknown) (no (unknown) (unknown) maintenance inhaler (units (unknown) date) in the past; she unknown) recalls being on Flovent which she felt did (unknown) (no (unknown) (unknown) may occur. (units (unk nown) date) Occasional unknown) wrong-word or 'sound-alike' substitutions may have (unknown) (no (unknown) (unknown) monitoring. (units (un known) date) unknown) (unknown) (no (unknown) (unknown) movement hurts (units (unknown) date) chest. unknown) (unknown) (no (unknown) (unknown) nickel Adverse (units (unknown) date) Reaction (Mild, unknown) Verified 03/26/22 11:39) (unknown) (no (unknown) (unknown) not work very (units ( unknown) date) well.? She is not unknown) sure what other inhalers she has tried. (unknown) (no (unknown) (unknown) occurred due to the (unit s (unknown) date) inherent limitations unknown) of voice recognition software. Please (unknown) (no (unknown) (unknown) of chest pain, (units ( unknown) date) cough, sternal pain, unknown) bilateral breast lumps.? At the ED she had a (unknown) (no (unknown) (unknown) ondansetron 4 mg (units (unknown) date) disintegrating unknown) tablet 4 mg PO QID PRN nausea and vomiting #14 (unknown) (no (unknown) (unknown) order for a (units (un known) date) three-month unknown) follow-up CT chest. ?Bilateral diagnostic mammogram and (unknown) (no (unknown) (unknown) pulmonary nodule, (units (unknown) date) open heart surgery unknown) 2008. 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 unknown) (unknown) (no (unknown) (unknown) read the note (units ( unknown) date) carefully and unknown) recognize, using context, where these substitutions (unknown) (no (unknown) (unknown) recommend 2 weeks (units (unknown) date) off from work and unknown) she will see me for follow-up visit in 2 (unknown) (no (unknown) (unknown) report of frequency (unit s (unknown) date) of use of rescue unknown) inhaler a maintenance medication is (unknown) (no (unknown) (unknown) she describes as (units (unknown) date) ?unnecessary open unknown) heart surgery? at [place] in 2008.? 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 (unit s (unknown) date) some tooth pain. unknown) malaise. (unknown) (no (unknown) (unknown) tabs 04/05/18 [Rx (units (unknown) date) Confirmed 03/26/22] unknown) (unknown) (no (unknown) (unknown) thought to be (units ( unknown) date) present based on the unknown) echocardiogram was not present.? 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 then unknown) got nauseous, significant AL. (unknown) (no (unknown) (unknown) ultrasound were (units (unknown) date) already ordered. unknown) ?Ms. Patino performed a breast exam at that (unknown) (no (unknown) (unknown) visit and (units (unkn own) date) encouraged the unknown) patient to schedule imaging as ordered. (unknown) (no (unknown) (unknown) vomiting after ED (units (unknown) date) visit, none in past unknown) 2 days. (unknown) (no (unknown) (unknown) was part of the (units (unknown) date) cluster of symptoms unknown) with which she presented to the ED. she has (unknown) (no (unknown) (unknown) weeks.? Contact us (units (unknown) date) sooner for any unknown) problems.? (unknown) (no (unknown) (unknown) would be lower in (units (unknown) date) stress.? 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 (unknown) (no (unknown) (unknown) (no value) (units (unk nown) date) unknown) (unknown) (no (unknown) (unknown) 03/26/22 (units (unkno wn) date) unknown) (unknown) (no (unknown) (unknown) 03/26/22] (units (unkn own) date) unknown) (unknown) (no (unknown) (unknown) 11:39) (units (unkno wn) date) unknown) (unknown) (no (unknown) (unknown) 11:41 (units (unkno wn) date) unknown) (unknown) (no (unknown) (unknown) 36 yo female (units (u nknown) date) presents today for 2 unknown) week f/u asthma and multiple issues (unknown) (no (unknown) (unknown) 36-year-old female (units (unknown) date) presents to unknown) establish here.? She lives in [place], (unknown) (no (unknown) (unknown) Age/Sex: 36 / F (units (unknown) date) Date of Service: unknown) (unknown) (no (unknown) (unknown) Allergies (units (unkn own) date) unknown) (unknown) (no (unknown) (unknown) [place] [id number] (unit s (unknown) date) unknown) (unknown) (no (unknown) (unknown) Anxiety (units (unkno wn) date) unknown) (unknown) (no (unknown) (unknown) Asthma (units (unkno wn) date) unknown) (unknown) (no (unknown) (unknown) Attending Dr: (units ( unknown) date) Wes SCOTT unknown) (unknown) (no (unknown) (unknown) BMI 18.5 (units (unkno wn) date) unknown) (unknown) (no (unknown) (unknown) BP 97/57 L (units (unk nown) date) unknown) (unknown) (no (unknown) (unknown) Blood Pressure (units (unknown) date) Location Rt radial unknown) (unknown) (no (unknown) (unknown) CT chest abdomen (units (unknown) date) pelvis which showed unknown) multiple pulmonary nodules, all 3 mL or (unknown) (no (unknown) (unknown) Chief Complaint (units (unknown) date) unknown) (unknown) (no (unknown) (unknown) Chief Complaint: (units (unknown) date) f/u unknown) (unknown) (no (unknown) (unknown) : 1985 (units (unknown) date) Acct:[id number] unknown) (unknown) (no (unknown) (unknown) Depression (units (unk nown) date) unknown) (unknown) (no (unknown) (unknown) Dept at (units (unkno wn) date) . unknown) (unknown) (no (unknown) (unknown) Details: (units (unkno wn) date) unknown) (unknown) (no (unknown) (unknown) Documented By: (units (unknown) date) Wes Herrera unknown) 03/26/22 1138 (unknown) (no (unknown) (unknown) Draft (units (unkno wn) date) unknown) (unknown) (no (unknown) (unknown) Family Practice (units (unknown) date) Office Visit unknown) (unknown) (no (unknown) (unknown) [facility]) (unknown) (no (unknown) (unknown) [place] (units (unkno wn) date) unknown) (unknown) (no (unknown) (unknown) Gastrointestinal (units (unknown) date) [facility] unknown) (unknown) (no (unknown) (unknown) H/O exploratory (units (unknown) date) laparotomy unknown) (unknown) (no (unknown) (unknown) H/O left knee (units ( unknown) date) surgery unknown) (unknown) (no (unknown) (unknown) HFA) 2 puff (units (un known) date) inhalation BID #12 unknown) grams 03/13/22 [Rx Confirmed 03/26/22] (unknown) (no (unknown) (unknown) HPI (units (unkno wn) date) unknown) (unknown) (no (unknown) (unknown) Height 160.02 cm (units (unknown) date) unknown) (unknown) (no (unknown) (unknown) History of open (units (unknown) date) heart surgery unknown) (unknown) (no (unknown) (unknown) History of surgery (units (unknown) date) unknown) (unknown) (no (unknown) (unknown) Intake Note: (units (u nknown) date) unknown) (unknown) (no (unknown) (unknown) Intake performed (units (unknown) date) by: Germaine Bates unknown) (unknown) (no (unknown) (unknown) Intake (units (unkno wn) date) unknown) (unknown) (no (unknown) (unknown) Intake- Clincial (units (unknown) date) Staff unknown) (unknown) (no (unknown) (unknown) Irritation/redness (units (unknown) date) unknown) (unknown) (no (unknown) (unknown) Kidney infection (units (unknown) date) unknown) (unknown) (no (unknown) (unknown) L upper tooth (units ( unknown) date) hurting, sensitive. unknown) did not think infection, states grinding. (unknown) (no (unknown) (unknown) Last Menstural (units (unknown) date) Cycle + Details unknown) (unknown) (no (unknown) (unknown) Loc: [facility] (units (unkno wn) date) unknown) (unknown) (no (unknown) (unknown) [id number] (units (unk nown) date) unknown) (unknown) (no (unknown) (unknown) Medical History (units (unknown) date) (Reviewed 03/24/22 @ unknown) 22:55 by Danita Vila DO) (unknown) (no (unknown) (unknown) Medications (units (un known) date) unknown) (unknown) (no (unknown) (unknown) Mild persistent (units (unknown) date) asthma unknown) (unknown) (no (unknown) (unknown) Mild persistent (units (unknown) date) asthma:? lung exam unknown) unremarkable in clinic; however, based on her (unknown) (no (unknown) (unknown) Other Menstrual (units (unknown) date) Period: Other unknown) (unknown) (no (unknown) (unknown) Oxygen Delivery (units (unknown) date) Method room air unknown) (unknown) (no (unknown) (unknown) PFSH (units (unkno wn) date) unknown) (unknown) (no (unknown) (unknown) Past medical (units (u nknown) date) history notable for unknown) anxiety and depression, asthma, lumbar (unknown) (no (unknown) (unknown) Patient has (units (un known) date) struggled with unknown) anxiety and depression.? She has been on medication (unknown) (no (unknown) (unknown) Patient reports (units (unknown) date) that for her asthma unknown) she is needing to use her albuterol rescue (unknown) (no (unknown) (unknown) Patient tells me (units (unknown) date) that she is wary of unknown) the medical system ever since she had what (unknown) (no (unknown) (unknown) Patient was in the (units (unknown) date) ED on March 05.? unknown) She presented to the ED with complaint (unknown) (no (unknown) (unknown) Patient was seen (units (unknown) date) for an ED follow-up unknown) last week by Sofia Patino who placed an (unknown) (no (unknown) (unknown) Patient: (units (unkno wn) date) Carmina Castillo Kenneth unknown) MR#: (unknown) (no (unknown) (unknown) Penicillins Allergy (unit s (unknown) date) (Intermediate, unknown) Verified 03/26/22 11:39) (unknown) (no (unknown) (unknown) Pertussis Vaccines (units (unknown) date) [PERTUSSIS VACCINES] unknown) Allergy (Unknown, Verified 03/26/22 (unknown) (no (unknown) (unknown) Position Sitting (units (unknown) date) unknown) (unknown) (no (unknown) (unknown) Pulse 57 L (units (unk nown) date) unknown) (unknown) (no (unknown) (unknown) Pulse Oximetry (%) (units (unknown) date) 99 unknown) (unknown) (no (unknown) (unknown) Pulse Source (units (u nknown) date) Monitor unknown) (unknown) (no (unknown) (unknown) Rash (units (unkno wn) date) unknown) (unknown) (no (unknown) (unknown) Rash, throat was (units (unknown) date) tingly unknown) (unknown) (no (unknown) (unknown) Reason For Visit (units (unknown) date) unknown) (unknown) (no (unknown) (unknown) Respiration 16 (units (unknown) date) unknown) (unknown) (no (unknown) (unknown) S/P laparoscopic (units (unknown) date) supracervical unknown) hysterectomy (04/04/18) (unknown) (no (unknown) (unknown) Seizure (units (unkno wn) date) unknown) (unknown) (no (unknown) (unknown) Signed By: (units (unk nown) date) unknown) (unknown) (no (unknown) (unknown) Smoking Status: (units (unknown) date) Former smoker unknown) (unknown) (no (unknown) (unknown) Social History (units (unknown) date) unknown) (unknown) (no (unknown) (unknown) Stomach pain, (units ( unknown) date) nausea, headache unknown) (unknown) (no (unknown) (unknown) Surgical History (units (unknown) date) (Reviewed 03/24/22 @ unknown) 22:55 by Danita Vila DO) (unknown) (no (unknown) (unknown) This note may have (units (unknown) date) been all or unknown) partially generated using voice recognition (unknown) (no (unknown) (unknown) Tobacco + Substance (unit s (unknown) date) Use unknown) (unknown) (no (unknown) (unknown) Tobacco Status (units (unknown) date) unknown) (unknown) (no (unknown) (unknown) Visit Reasons: 2wk (units (unknown) date) f/u asthma/multiple unknown) issues 02 (unknown) (no (unknown) (unknown) Vitals (units (unkno wn) date) unknown) (unknown) (no (unknown) (unknown) [place] with her (unit s (unknown) date) and her 3 unknown) kids ages 6, 11, 17.? 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 She (unknown) (no (unknown) (unknown) albuterol sulfate (units (unknown) date) 90 mcg/actuation unknown) aerosol inhaler (ProAir HFA) 1 puff (unknown) (no (unknown) (unknown) amoxicillin Allergy (unit s (unknown) date) (Intermediate, unknown) Verified 03/26/22 11:39) (unknown) (no (unknown) (unknown) and she would like (units (unknown) date) to undergo unknown) psychotherapy again. (unknown) (no (unknown) (unknown) around 2019; it is (units (unknown) date) unclear whether she unknown) needs to be seen by Cardiology for (unknown) (no (unknown) (unknown) azithromycin (units (u nknown) date) Allergy unknown) (Intermediate, Verified 03/26/22 11:39) (unknown) (no (unknown) (unknown) back in august. not (units (unknown) date) sure if this is unknown) related to AL. (unknown) (no (unknown) (unknown) benefit from (units (u nknown) date) additional time off unknown) of work to recover.? We agreed that we will (unknown) (no (unknown) (unknown) branches.? (units (unk nown) date) unknown) (unknown) (no (unknown) (unknown) ciprofloxacin (units ( unknown) date) Allergy unknown) (Intermediate, Verified 03/26/22 11:39) (unknown) (no (unknown) (unknown) denies any ongoing (units (unknown) date) issues unknown) postoperatively.? 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 She unknown) states that ultimately the abnormality which was (unknown) (no (unknown) (unknown) fluticasone (units (un known) date) propionate 230 unknown) mcg-salmeterol 21 mcg/actuation HFA inhaler (Advair (unknown) (no (unknown) (unknown) gluten Adverse (units (unknown) date) Reaction (Mild, unknown) Verified 03/26/22 11:39) (unknown) (no (unknown) (unknown) had to call out of (units (unknown) date) work and feels that unknown) due to multiple ongoing issues she would (unknown) (no (unknown) (unknown) has mammo/us 04/02 (units (unknown) date) unknown) (unknown) (no (unknown) (unknown) have occurred. If (units (unknown) date) there are any unknown) questions, please contact the Medical Records (unknown) (no (unknown) (unknown) household members: (units (unknown) date) spouse and children unknown) (unknown) (no (unknown) (unknown) hydromorphone (units ( unknown) date) Allergy (Mild, unknown) Verified 03/26/22 11:39) (unknown) (no (unknown) (unknown) ibuprofen Allergy (units (unknown) date) (Mild, Verified unknown) 03/26/22 11:39) (unknown) (no (unknown) (unknown) in the past but (units (unknown) date) these have not unknown) helped; she felt that psychotherapy has helped (unknown) (no (unknown) (unknown) indicated.? Trial (units (unknown) date) Advair.? Patient is unknown) also still recovering from viral URI which (unknown) (no (unknown) (unknown) inhalation Q6H PRN (units (unknown) date) Adequate Ventilation unknown) #8.5 grams 03/08/22 [Rx Confirmed (unknown) (no (unknown) (unknown) inhaler 2-3 times (units (unknown) date) daily.? She has had unknown) asthma for many years.? She is been on (unknown) (no (unknown) (unknown) led to (units (unkno wn) date) echocardiogram being unknown) performed.? She reports there was concern for an (unknown) (no (unknown) (unknown) less with no (units (u nknown) date) evidence of acute unknown) process.? Patient has already been referred to (unknown) (no (unknown) (unknown) maintenance inhaler (units (unknown) date) in the past; she unknown) recalls being on Flovent which she felt did (unknown) (no (unknown) (unknown) may occur. (units (unk nown) date) Occasional unknown) wrong-word or 'sound-alike' substitutions may have (unknown) (no (unknown) (unknown) monitoring. (units (un known) date) unknown) (unknown) (no (unknown) (unknown) movement hurts (units (unknown) date) chest. unknown) (unknown) (no (unknown) (unknown) nickel Adverse (units (unknown) date) Reaction (Mild, unknown) Verified 03/26/22 11:39) (unknown) (no (unknown) (unknown) not work very (units ( unknown) date) well.? She is not unknown) sure what other inhalers she has tried. (unknown) (no (unknown) (unknown) occurred due to the (unit s (unknown) date) inherent limitations unknown) of voice recognition software. Please (unknown) (no (unknown) (unknown) of chest pain, (units ( unknown) date) cough, sternal pain, unknown) bilateral breast lumps.? At the ED she had a (unknown) (no (unknown) (unknown) ondansetron 4 mg (units (unknown) date) disintegrating unknown) tablet 4 mg PO QID PRN nausea and vomiting #14 (unknown) (no (unknown) (unknown) order for a (units (un known) date) three-month unknown) follow-up CT chest. ?Bilateral diagnostic mammogram and (unknown) (no (unknown) (unknown) pulmonary nodule, (units (unknown) date) open heart surgery unknown) 2008. 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 unknown) (unknown) (no (unknown) (unknown) read the note (units ( unknown) date) carefully and unknown) recognize, using context, where these substitutions (unknown) (no (unknown) (unknown) recommend 2 weeks (units (unknown) date) off from work and unknown) she will see me for follow-up visit in 2 (unknown) (no (unknown) (unknown) report of frequency (unit s (unknown) date) of use of rescue unknown) inhaler a maintenance medication is (unknown) (no (unknown) (unknown) she describes as (units (unknown) date) ?unnecessary open unknown) heart surgery? at [place] in 2008.? 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 (unit s (unknown) date) some tooth pain. unknown) malaise. (unknown) (no (unknown) (unknown) tabs 04/05/18 [Rx (units (unknown) date) Confirmed 03/26/22] unknown) (unknown) (no (unknown) (unknown) thought to be (units ( unknown) date) present based on the unknown) echocardiogram was not present.? 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 then unknown) got nauseous, significant AL. (unknown) (no (unknown) (unknown) ultrasound were (units (unknown) date) already ordered. unknown) ?Ms. Patino performed a breast exam at that (unknown) (no (unknown) (unknown) visit and (units (unkn own) date) encouraged the unknown) patient to schedule imaging as ordered. (unknown) (no (unknown) (unknown) vomiting after ED (units (unknown) date) visit, none in past unknown) 2 days. (unknown) (no (unknown) (unknown) was part of the (units (unknown) date) cluster of symptoms unknown) with which she presented to the ED. she has (unknown) (no (unknown) (unknown) weeks.? Contact us (units (unknown) date) sooner for any unknown) problems.? (unknown) (no (unknown) (unknown) would be lower in (units (unknown) date) stress.? 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 (unknown) (no (unknown) (unknown) (no value) (units (unk nown) date) unknown) (unknown) (no (unknown) (unknown) 03/26/22 (units (unkno wn) date) unknown) (unknown) (no (unknown) (unknown) 03/26/22] (units (unkn own) date) unknown) (unknown) (no (unknown) (unknown) 11:39) (units (unkno wn) date) unknown) (unknown) (no (unknown) (unknown) 11:41 (units (unkno wn) date) unknown) (unknown) (no (unknown) (unknown) 36 yo female (units (u nknown) date) presents today for 2 unknown) week f/u asthma and multiple issues (unknown) (no (unknown) (unknown) 36-year-old female (units (unknown) date) presents to unknown) establish here.? She lives in [place], (unknown) (no (unknown) (unknown) Age/Sex: 36 / F (units (unknown) date) Date of Service: unknown) (unknown) (no (unknown) (unknown) Allergies (units (unkn own) date) unknown) (unknown) (no (unknown) (unknown) [place] [address] (unit s (unknown) date) unknown) (unknown) (no (unknown) (unknown) Anxiety (units (unkno wn) date) unknown) (unknown) (no (unknown) (unknown) Assessment + Plan (units (unknown) date) unknown) (unknown) (no (unknown) (unknown) Asthma (units (unkno wn) date) unknown) (unknown) (no (unknown) (unknown) Attending Dr: (units ( unknown) date) Wes SCOTT unknown) (unknown) (no (unknown) (unknown) BMI 18.5 (units (unkno wn) date) unknown) (unknown) (no (unknown) (unknown) BP 97/57 L (units (unk nown) date) unknown) (unknown) (no (unknown) (unknown) Blood Pressure (units (unknown) date) Location Rt radial unknown) (unknown) (no (unknown) (unknown) CT chest abdomen (units (unknown) date) pelvis which showed unknown) multiple pulmonary nodules, all 3 mL or (unknown) (no (unknown) (unknown) Chief Complaint (units (unknown) date) unknown) (unknown) (no (unknown) (unknown) Chief Complaint: (units (unknown) date) f/u unknown) (unknown) (no (unknown) (unknown) Confirmed 03/26/22] (unit s (unknown) date) unknown) (unknown) (no (unknown) (unknown) : 1985 (units (unknown) date) Acct:[id number] unknown) (unknown) (no (unknown) (unknown) Depression (units (unk nown) date) unknown) (unknown) (no (unknown) (unknown) Dept at (units (unkno wn) date) . unknown) (unknown) (no (unknown) (unknown) Details: (units (unkno wn) date) unknown) (unknown) (no (unknown) (unknown) Documented By: (units (unknown) date) Wes Herrera unknown) 03/26/22 1138 (unknown) (no (unknown) (unknown) Draft (units (unkno wn) date) unknown) (unknown) (no (unknown) (unknown) Family Practice (units (unknown) date) Office Visit unknown) (unknown) (no (unknown) (unknown) [facility] ([facility] unknown) (unknown) (no (unknown) (unknown) [place] (units (unkno wn) date) unknown) (unknown) (no (unknown) (unknown) Gastrointestinal (units (unknown) date) Upset unknown) (unknown) (no (unknown) (unknown) H/O exploratory (units (unknown) date) laparotomy unknown) (unknown) (no (unknown) (unknown) H/O left knee (units ( unknown) date) surgery unknown) (unknown) (no (unknown) (unknown) HFA) 2 puff (units (un known) date) inhalation BID #12 unknown) grams 03/13/22 [Rx Confirmed 03/26/22] (unknown) (no (unknown) (unknown) HPI (units (unkno wn) date) unknown) (unknown) (no (unknown) (unknown) Height 160.02 cm (units (unknown) date) unknown) (unknown) (no (unknown) (unknown) History of open (units (unknown) date) heart surgery unknown) (unknown) (no (unknown) (unknown) History of surgery (units (unknown) date) unknown) (unknown) (no (unknown) (unknown) Intake Note: (units (u nknown) date) unknown) (unknown) (no (unknown) (unknown) Intake performed (units (unknown) date) by: Germaine Bates unknown) (unknown) (no (unknown) (unknown) Intake (units (unkno wn) date) unknown) (unknown) (no (unknown) (unknown) Intake- Clincial (units (unknown) date) Staff unknown) (unknown) (no (unknown) (unknown) Irritation/redness (units (unknown) date) unknown) (unknown) (no (unknown) (unknown) Kidney infection (units (unknown) date) unknown) (unknown) (no (unknown) (unknown) L TMJ TTP. L chest (units (unknown) date) TTP and epigastric unknown) ttp. likely tmj issue. schedule for (unknown) (no (unknown) (unknown) L upper tooth (units ( unknown) date) hurting, sensitive. unknown) did not think infection, states grinding. (unknown) (no (unknown) (unknown) Last Menstural (units (unknown) date) Cycle + Details unknown) (unknown) (no (unknown) (unknown) Loc: [facility] (units (unkno wn) date) unknown) (unknown) (no (unknown) (unknown) [id number] (units (unk nown) date) unknown) (unknown) (no (unknown) (unknown) Medical History (units (unknown) date) (Reviewed 03/24/22 @ unknown) 22:55 by Danita Vila DO) (unknown) (no (unknown) (unknown) Medications (units (un known) date) unknown) (unknown) (no (unknown) (unknown) Medications: (units (u nknown) date) unknown) (unknown) (no (unknown) (unknown) Mild persistent (units (unknown) date) asthma unknown) (unknown) (no (unknown) (unknown) Mild persistent (units (unknown) date) asthma:? lung exam unknown) unremarkable in clinic; however, based on her (unknown) (no (unknown) (unknown) New (units (unkno wn) date) unknown) (unknown) (no (unknown) (unknown) Other Menstrual (units (unknown) date) Period: Other unknown) (unknown) (no (unknown) (unknown) Oxygen Delivery (units (unknown) date) Method room air unknown) (unknown) (no (unknown) (unknown) PFSH (units (unkno wn) date) unknown) (unknown) (no (unknown) (unknown) Past medical (units (u nknown) date) history notable for unknown) anxiety and depression, asthma, lumbar (unknown) (no (unknown) (unknown) Patient has (units (un known) date) struggled with unknown) anxiety and depression.? She has been on medication (unknown) (no (unknown) (unknown) Patient reports (units (unknown) date) that for her asthma unknown) she is needing to use her albuterol rescue (unknown) (no (unknown) (unknown) Patient tells me (units (unknown) date) that she is wary of unknown) the medical system ever since she had what (unknown) (no (unknown) (unknown) Patient was in the (units (unknown) date) ED on March 05.? unknown) She presented to the ED with complaint (unknown) (no (unknown) (unknown) Patient was seen (units (unknown) date) for an ED follow-up unknown) last week by Sofia Patino who placed an (unknown) (no (unknown) (unknown) Patient: (units (unkno wn) date) GaylaCarmina A unknown) MR#: (unknown) (no (unknown) (unknown) Penicillins Allergy (unit s (unknown) date) (Intermediate, unknown) Verified 03/26/22 11:39) (unknown) (no (unknown) (unknown) Pertussis Vaccines (units (unknown) date) [PERTUSSIS VACCINES] unknown) Allergy (Unknown, Verified 03/26/22 (unknown) (no (unknown) (unknown) Position Sitting (units (unknown) date) unknown) (unknown) (no (unknown) (unknown) Pulse 57 L (units (unk nown) date) unknown) (unknown) (no (unknown) (unknown) Pulse Oximetry (%) (units (unknown) date) 99 unknown) (unknown) (no (unknown) (unknown) Pulse Source (units (u nknown) date) Monitor unknown) (unknown) (no (unknown) (unknown) Rash (units (unkno wn) date) unknown) (unknown) (no (unknown) (unknown) Rash, throat was (units (unknown) date) tingly unknown) (unknown) (no (unknown) (unknown) Reason For Visit (units (unknown) date) unknown) (unknown) (no (unknown) (unknown) Respiration 16 (units (unknown) date) unknown) (unknown) (no (unknown) (unknown) S/P laparoscopic (units (unknown) date) supracervical unknown) hysterectomy (04/04/18) (unknown) (no (unknown) (unknown) Seizure (units (unkno wn) date) unknown) (unknown) (no (unknown) (unknown) Signed By: (units (unk nown) date) unknown) (unknown) (no (unknown) (unknown) Smoking Status: (units (unknown) date) Former smoker unknown) (unknown) (no (unknown) (unknown) Social History (units (unknown) date) unknown) (unknown) (no (unknown) (unknown) Stomach pain, (units ( unknown) date) nausea, headache unknown) (unknown) (no (unknown) (unknown) Surgical History (units (unknown) date) (Reviewed 03/24/22 @ unknown) 22:55 by Danita Vila DO) (unknown) (no (unknown) (unknown) This note may have (units (unknown) date) been all or unknown) partially generated using voice recognition (unknown) (no (unknown) (unknown) Tobacco + Substance (unit s (unknown) date) Use unknown) (unknown) (no (unknown) (unknown) Tobacco Status (units (unknown) date) unknown) (unknown) (no (unknown) (unknown) Visit Reasons: 2wk (units (unknown) date) f/u asthma/multiple unknown) issues 02 (unknown) (no (unknown) (unknown) Vitals (units (unkno wn) date) unknown) (unknown) (no (unknown) (unknown) [place] with her (unit s (unknown) date) and her 3 unknown) kids ages 6, 11, 17.? 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 unknown) omeprazole, robaxin, imitrex. f/u at (unknown) (no (unknown) (unknown) acupuncture visits. (unit s (unknown) date) unknown) (unknown) (no (unknown) (unknown) after the surgery (units (unknown) date) she had sternal unknown) wires removed due to 1 having snapped.? She (unknown) (no (unknown) (unknown) albuterol sulfate (units (unknown) date) 90 mcg/actuation unknown) aerosol inhaler (ProAir HFA) 1 puff (unknown) (no (unknown) (unknown) amoxicillin Allergy (unit s (unknown) date) (Intermediate, unknown) Verified 03/26/22 11:39) (unknown) (no (unknown) (unknown) and she would like (units (unknown) date) to undergo unknown) psychotherapy again. (unknown) (no (unknown) (unknown) around 2019; it is (units (unknown) date) unclear whether she unknown) needs to be seen by Cardiology for (unknown) (no (unknown) (unknown) azithromycin (units (u nknown) date) Allergy unknown) (Intermediate, Verified 03/26/22 11:39) (unknown) (no (unknown) (unknown) back in august. not (units (unknown) date) sure if this is unknown) related to AL. (unknown) (no (unknown) (unknown) benefit from (units (u nknown) date) additional time off unknown) of work to recover.? We agreed that we will (unknown) (no (unknown) (unknown) branches.? (units (unk nown) date) unknown) (unknown) (no (unknown) (unknown) ciprofloxacin (units ( unknown) date) Allergy unknown) (Intermediate, Verified 03/26/22 11:39) (unknown) (no (unknown) (unknown) denies any ongoing (units (unknown) date) issues unknown) postoperatively.? 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 She unknown) states that ultimately the abnormality which was (unknown) (no (unknown) (unknown) fluticasone (units (un known) date) propionate 230 unknown) mcg-salmeterol 21 mcg/actuation HFA inhaler (Advair (unknown) (no (unknown) (unknown) gluten Adverse (units (unknown) date) Reaction (Mild, unknown) Verified 03/26/22 11:39) (unknown) (no (unknown) (unknown) had to call out of (units (unknown) date) work and feels that unknown) due to multiple ongoing issues she would (unknown) (no (unknown) (unknown) has mammo/us 04/02 (units (unknown) date) unknown) (unknown) (no (unknown) (unknown) have occurred. If (units (unknown) date) there are any unknown) questions, please contact the Medical Records (unknown) (no (unknown) (unknown) household members: (units (unknown) date) spouse and children unknown) (unknown) (no (unknown) (unknown) hydromorphone (units ( unknown) date) Allergy (Mild, unknown) Verified 03/26/22 11:39) (unknown) (no (unknown) (unknown) ibuprofen Allergy (units (unknown) date) (Mild, Verified unknown) 03/26/22 11:39) (unknown) (no (unknown) (unknown) in the past but (units (unknown) date) these have not unknown) helped; she felt that psychotherapy has helped (unknown) (no (unknown) (unknown) indicated.? Trial (units (unknown) date) Advair.? Patient is unknown) also still recovering from viral URI which (unknown) (no (unknown) (unknown) inhalation Q6H PRN (units (unknown) date) Adequate Ventilation unknown) #8.5 grams 03/08/22 [Rx Confirmed (unknown) (no (unknown) (unknown) inhaler 2-3 times (units (unknown) date) daily.? She has had unknown) asthma for many years.? She is been on (unknown) (no (unknown) (unknown) led to (units (unkno wn) date) echocardiogram being unknown) performed.? She reports there was concern for an (unknown) (no (unknown) (unknown) less with no (units (u nknown) date) evidence of acute unknown) process.? Patient has already been referred to (unknown) (no (unknown) (unknown) maintenance inhaler (units (unknown) date) in the past; she unknown) recalls being on Flovent which she felt did (unknown) (no (unknown) (unknown) may occur. (units (unk nown) date) Occasional unknown) wrong-word or 'sound-alike' substitutions may have (unknown) (no (unknown) (unknown) may repeat 1 tab (units (unknown) date) after at least 2 unknown) hrs; max = 4 tabs/24 hr PO 10 tabs 3RF (unknown) (no (unknown) (unknown) methocarbamol 750 (units (unknown) date) mg PO QID PRN 30 unknown) tabs 2RF muscle spasm (unknown) (no (unknown) (unknown) methocarbamol 750 mg (unit s (unknown) date) tablet 750 mg PO QID unknown) PRN muscle spasm #30 tabs 03/26/22 [Rx (unknown) (no (unknown) (unknown) monitoring. (units (un known) date) unknown) (unknown) (no (unknown) (unknown) movement hurts (units (unknown) date) chest. unknown) (unknown) (no (unknown) (unknown) nickel Adverse (units (unknown) date) Reaction (Mild, unknown) Verified 03/26/22 11:39) (unknown) (no (unknown) (unknown) not work very (units ( unknown) date) well.? She is not unknown) sure what other inhalers she has tried. (unknown) (no (unknown) (unknown) occurred due to the (unit s (unknown) date) inherent limitations unknown) of voice recognition software. Please (unknown) (no (unknown) (unknown) of chest pain, (units ( unknown) date) cough, sternal pain, unknown) bilateral breast lumps.? At the ED she had a (unknown) (no (unknown) (unknown) omeprazole 20 mg PO (unit s (unknown) date) BID 60 caps 0RF unknown) (unknown) (no (unknown) (unknown) omeprazole 20 mg (units (unknown) date) capsule,delayed unknown) release 20 mg PO BID #60 caps 03/26/22 [Rx (unknown) (no (unknown) (unknown) ondansetron 4 mg (units (unknown) date) disintegrating unknown) tablet 4 mg PO QID PRN nausea and vomiting #14 (unknown) (no (unknown) (unknown) order for a (units (un known) date) three-month unknown) follow-up CT chest. ?Bilateral diagnostic mammogram and (unknown) (no (unknown) (unknown) pulmonary nodule, (units (unknown) date) open heart surgery unknown) 2008. 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 unknown) (unknown) (no (unknown) (unknown) read the note (units ( unknown) date) carefully and unknown) recognize, using context, where these substitutions (unknown) (no (unknown) (unknown) recommend 2 weeks (units (unknown) date) off from work and unknown) she will see me for follow-up visit in 2 (unknown) (no (unknown) (unknown) report of frequency (unit s (unknown) date) of use of rescue unknown) inhaler a maintenance medication is (unknown) (no (unknown) (unknown) she describes as (units (unknown) date) ?unnecessary open unknown) heart surgery? at [facility] in 2008.? 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 (unit s (unknown) date) some tooth pain. unknown) malaise. (unknown) (no (unknown) (unknown) sumatriptan (units (un known) date) succinate (Imitrex) unknown) take 1 tab at onset of headache; if no relief (unknown) (no (unknown) (unknown) sumatriptan (units (unk nown) date) succinate 50 mg unknown) tablet (Imitrex) See Rx Instructions PO .COMPLEX #10 (unknown) (no (unknown) (unknown) tabs 03/26/22 [Rx (units (unknown) date) Confirmed 03/26/22] unknown) (unknown) (no (unknown) (unknown) tabs 04/05/18 [Rx (units (unknown) date) Confirmed 03/26/22] unknown) (unknown) (no (unknown) (unknown) thought to be (units ( unknown) date) present based on the unknown) echocardiogram was not present.? 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 then unknown) got nauseous, significant AL. (unknown) (no (unknown) (unknown) ultrasound were (units (unknown) date) already ordered. unknown) ?Ms. Patino performed a breast exam at that (unknown) (no (unknown) (unknown) visit and (units (unkn own) date) encouraged the unknown) patient to schedule imaging as ordered. (unknown) (no (unknown) (unknown) vomiting after ED (units (unknown) date) visit, none in past unknown) 2 days. (unknown) (no (unknown) (unknown) was part of the (units (unknown) date) cluster of symptoms unknown) with which she presented to the ED. she has (unknown) (no (unknown) (unknown) weeks.? Contact us (units (unknown) date) sooner for any unknown) problems.? (unknown) (no (unknown) (unknown) would be lower in (units (unknown) date) stress.? 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 (unknown) (no (unknown) (unknown) (no value) (units (unk nown) date) unknown) (unknown) (no (unknown) (unknown) 03/26/22 (units (unkno wn) date) unknown) (unknown) (no (unknown) (unknown) 03/26/22] (units (unkn own) date) unknown) (unknown) (no (unknown) (unknown) 11:39) (units (unkno wn) date) unknown) (unknown) (no (unknown) (unknown) 11:41 (units (unkno wn) date) unknown) (unknown) (no (unknown) (unknown) 36 yo female (units (u nknown) date) presents today for 2 unknown) week f/u asthma and multiple issues (unknown) (no (unknown) (unknown) 36-year-old female (units (unknown) date) presents to unknown) establish here.? She lives in [place], (unknown) (no (unknown) (unknown) Age/Sex: 36 / F (units (unknown) date) Date of Service: unknown) (unknown) (no (unknown) (unknown) Allergies (units (unkn own) date) unknown) (unknown) (no (unknown) (unknown) [place] [address] (unit s (unknown) date) unknown) (unknown) (no (unknown) (unknown) Anxiety (units (unkno wn) date) unknown) (unknown) (no (unknown) (unknown) Assessment + Plan (units (unknown) date) unknown) (unknown) (no (unknown) (unknown) Asthma (units (unkno wn) date) unknown) (unknown) (no (unknown) (unknown) Attending Dr: (units ( unknown) date) Wes SCOTT unknown) (unknown) (no (unknown) (unknown) BMI 18.5 (units (unkno wn) date) unknown) (unknown) (no (unknown) (unknown) BP 97/57 L (units (unk nown) date) unknown) (unknown) (no (unknown) (unknown) Blood Pressure (units (unknown) date) Location Rt radial unknown) (unknown) (no (unknown) (unknown) CT chest abdomen (units (unknown) date) pelvis which showed unknown) multiple pulmonary nodules, all 3 mL or (unknown) (no (unknown) (unknown) Chief Complaint (units (unknown) date) unknown) (unknown) (no (unknown) (unknown) Chief Complaint: (units (unknown) date) f/u multiple issues unknown) (unknown) (no (unknown) (unknown) Confirmed 03/26/22] (unit s (unknown) date) unknown) (unknown) (no (unknown) (unknown) : 1985 (units (unknown) date) Acct:[id number] unknown) (unknown) (no (unknown) (unknown) Depression (units (unk nown) date) unknown) (unknown) (no (unknown) (unknown) Dept at (units (unkno wn) date) . unknown) (unknown) (no (unknown) (unknown) Details: (units (unkno wn) date) unknown) (unknown) (no (unknown) (unknown) Documented By: (units (unknown) date) Wes Herrera unknown) 03/26/22 1138 (unknown) (no (unknown) (unknown) Draft (units (unkno wn) date) unknown) (unknown) (no (unknown) (unknown) Family Practice (units (unknown) date) Office Visit unknown) (unknown) (no (unknown) (unknown) [facility] ([facility] unknown) (unknown) (no (unknown) (unknown) [facility] (units (unkno wn) date) unknown) (unknown) (no (unknown) (unknown) Gastrointestinal (units (unknown) date) Upset unknown) (unknown) (no (unknown) (unknown) H/O exploratory (units (unknown) date) laparotomy unknown) (unknown) (no (unknown) (unknown) H/O left knee (units ( unknown) date) surgery unknown) (unknown) (no (unknown) (unknown) HFA) 2 puff (units (un known) date) inhalation BID #12 unknown) grams 03/13/22 [Rx Confirmed 03/26/22] (unknown) (no (unknown) (unknown) HPI (units (unkno wn) date) unknown) (unknown) (no (unknown) (unknown) Height 160.02 cm (units (unknown) date) unknown) (unknown) (no (unknown) (unknown) History of open (units (unknown) date) heart surgery unknown) (unknown) (no (unknown) (unknown) History of surgery (units (unknown) date) unknown) (unknown) (no (unknown) (unknown) Intake Note: (units (u nknown) date) unknown) (unknown) (no (unknown) (unknown) Intake performed (units (unknown) date) by: Germaine Bates unknown) (unknown) (no (unknown) (unknown) Intake (units (unkno wn) date) unknown) (unknown) (no (unknown) (unknown) Intake- Clincial (units (unknown) date) Staff unknown) (unknown) (no (unknown) (unknown) Irritation/redness (units (unknown) date) unknown) (unknown) (no (unknown) (unknown) Kidney infection (units (unknown) date) unknown) (unknown) (no (unknown) (unknown) L TMJ TTP. L chest (units (unknown) date) TTP and epigastric unknown) ttp. likely tmj issue. schedule for (unknown) (no (unknown) (unknown) L upper tooth (units ( unknown) date) hurting, sensitive. unknown) did not think infection, states grinding. (unknown) (no (unknown) (unknown) Last Menstural (units (unknown) date) Cycle + Details unknown) (unknown) (no (unknown) (unknown) Loc: [facility] (units (unkno wn) date) unknown) (unknown) (no (unknown) (unknown) [id number] (units (unk nown) date) unknown) (unknown) (no (unknown) (unknown) Medical History (units (unknown) date) (Reviewed 03/24/22 @ unknown) 22:55 by Danita Vila DO) (unknown) (no (unknown) (unknown) Medications (units (un known) date) unknown) (unknown) (no (unknown) (unknown) Medications: (units (u nknown) date) unknown) (unknown) (no (unknown) (unknown) Mild persistent (units (unknown) date) asthma unknown) (unknown) (no (unknown) (unknown) Mild persistent (units (unknown) date) asthma:? lung exam unknown) unremarkable in clinic; however, based on her (unknown) (no (unknown) (unknown) New (units (unkno wn) date) unknown) (unknown) (no (unknown) (unknown) Other Menstrual (units (unknown) date) Period: Other unknown) (unknown) (no (unknown) (unknown) Oxygen Delivery (units (unknown) date) Method room air unknown) (unknown) (no (unknown) (unknown) PFSH (units (unkno wn) date) unknown) (unknown) (no (unknown) (unknown) Past medical (units (u nknown) date) history notable for unknown) anxiety and depression, asthma, lumbar (unknown) (no (unknown) (unknown) Patient has (units (un known) date) struggled with unknown) anxiety and depression.? She has been on medication (unknown) (no (unknown) (unknown) Patient reports (units (unknown) date) that for her asthma unknown) she is needing to use her albuterol rescue (unknown) (no (unknown) (unknown) Patient tells me (units (unknown) date) that she is wary of unknown) the medical system ever since she had what (unknown) (no (unknown) (unknown) Patient was in the (units (unknown) date) ED on March 05.? unknown) She presented to the ED with complaint (unknown) (no (unknown) (unknown) Patient was seen (units (unknown) date) for an ED follow-up unknown) last week by Sofia Patino who placed an (unknown) (no (unknown) (unknown) Patient: (units (unkno wn) date) Carmina Castillo unknown) MR#: (unknown) (no (unknown) (unknown) Penicillins Allergy (unit s (unknown) date) (Intermediate, unknown) Verified 03/26/22 11:39) (unknown) (no (unknown) (unknown) Pertussis Vaccines (units (unknown) date) [PERTUSSIS VACCINES] unknown) Allergy (Unknown, Verified 03/26/22 (unknown) (no (unknown) (unknown) Position Sitting (units (unknown) date) unknown) (unknown) (no (unknown) (unknown) Pulse 57 L (units (unk nown) date) unknown) (unknown) (no (unknown) (unknown) Pulse Oximetry (%) (units (unknown) date) 99 unknown) (unknown) (no (unknown) (unknown) Pulse Source (units (u nknown) date) Monitor unknown) (unknown) (no (unknown) (unknown) Rash (units (unkno wn) date) unknown) (unknown) (no (unknown) (unknown) Rash, throat was (units (unknown) date) tingly unknown) (unknown) (no (unknown) (unknown) Reason For Visit (units (unknown) date) unknown) (unknown) (no (unknown) (unknown) Respiration 16 (units (unknown) date) unknown) (unknown) (no (unknown) (unknown) S/P laparoscopic (units (unknown) date) supracervical unknown) hysterectomy (04/04/18) (unknown) (no (unknown) (unknown) Seizure (units (unkno wn) date) unknown) (unknown) (no (unknown) (unknown) Signed By: (units (unk nown) date) unknown) (unknown) (no (unknown) (unknown) Smoking Status: (units (unknown) date) Former smoker unknown) (unknown) (no (unknown) (unknown) Social History (units (unknown) date) unknown) (unknown) (no (unknown) (unknown) Stomach pain, (units ( unknown) date) nausea, headache unknown) (unknown) (no (unknown) (unknown) Surgical History (units (unknown) date) (Reviewed 03/24/22 @ unknown) 22:55 by Danita Vila DO) (unknown) (no (unknown) (unknown) This note may have (units (unknown) date) been all or unknown) partially generated using voice recognition (unknown) (no (unknown) (unknown) Tobacco + Substance (unit s (unknown) date) Use unknown) (unknown) (no (unknown) (unknown) Tobacco Status (units (unknown) date) unknown) (unknown) (no (unknown) (unknown) Visit Reasons: 2wk (units (unknown) date) f/u asthma/multiple unknown) issues 02 (unknown) (no (unknown) (unknown) Vitals (units (unkno wn) date) unknown) (unknown) (no (unknown) (unknown) [place] with her (unit s (unknown) date) and her 3 unknown) kids ages 6, 11, 17.? 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 unknown) omeprazole, robaxin, imitrex. f/u at (unknown) (no (unknown) (unknown) acupuncture visits. (unit s (unknown) date) unknown) (unknown) (no (unknown) (unknown) after the surgery (units (unknown) date) she had sternal unknown) wires removed due to 1 having snapped.? She (unknown) (no (unknown) (unknown) albuterol sulfate (units (unknown) date) 90 mcg/actuation unknown) aerosol inhaler (ProAir HFA) 1 puff (unknown) (no (unknown) (unknown) amoxicillin Allergy (unit s (unknown) date) (Intermediate, unknown) Verified 03/26/22 11:39) (unknown) (no (unknown) (unknown) and she would like (units (unknown) date) to undergo unknown) psychotherapy again. (unknown) (no (unknown) (unknown) around 2019; it is (units (unknown) date) unclear whether she unknown) needs to be seen by Cardiology for (unknown) (no (unknown) (unknown) azithromycin (units (u nknown) date) Allergy unknown) (Intermediate, Verified 03/26/22 11:39) (unknown) (no (unknown) (unknown) back in august. not (units (unknown) date) sure if this is unknown) related to AL. (unknown) (no (unknown) (unknown) benefit from (units (u nknown) date) additional time off unknown) of work to recover.? We agreed that we will (unknown) (no (unknown) (unknown) branches.? (units (unk nown) date) unknown) (unknown) (no (unknown) (unknown) ciprofloxacin (units ( unknown) date) Allergy unknown) (Intermediate, Verified 03/26/22 11:39) (unknown) (no (unknown) (unknown) denies any ongoing (units (unknown) date) issues unknown) postoperatively.? 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 She unknown) states that ultimately the abnormality which was (unknown) (no (unknown) (unknown) fluticasone (units (un known) date) propionate 230 unknown) mcg-salmeterol 21 mcg/actuation HFA inhaler (Advair (unknown) (no (unknown) (unknown) gluten Adverse (units (unknown) date) Reaction (Mild, unknown) Verified 03/26/22 11:39) (unknown) (no (unknown) (unknown) had to call out of (units (unknown) date) work and feels that unknown) due to multiple ongoing issues she would (unknown) (no (unknown) (unknown) has mammo/us 04/02 (units (unknown) date) unknown) (unknown) (no (unknown) (unknown) have occurred. If (units (unknown) date) there are any unknown) questions, please contact the Medical Records (unknown) (no (unknown) (unknown) household members: (units (unknown) date) spouse and children unknown) (unknown) (no (unknown) (unknown) hydromorphone (units ( unknown) date) Allergy (Mild, unknown) Verified 03/26/22 11:39) (unknown) (no (unknown) (unknown) ibuprofen Allergy (units (unknown) date) (Mild, Verified unknown) 03/26/22 11:39) (unknown) (no (unknown) (unknown) in the past but (units (unknown) date) these have not unknown) helped; she felt that psychotherapy has helped (unknown) (no (unknown) (unknown) indicated.? Trial (units (unknown) date) Advair.? Patient is unknown) also still recovering from viral URI which (unknown) (no (unknown) (unknown) inhalation Q6H PRN (units (unknown) date) Adequate Ventilation unknown) #8.5 grams 03/08/22 [Rx Confirmed (unknown) (no (unknown) (unknown) inhaler 2-3 times (units (unknown) date) daily.? She has had unknown) asthma for many years.? She is been on (unknown) (no (unknown) (unknown) led to (units (unkno wn) date) echocardiogram being unknown) performed.? She reports there was concern for an (unknown) (no (unknown) (unknown) less with no (units (u nknown) date) evidence of acute unknown) process.? Patient has already been referred to (unknown) (no (unknown) (unknown) maintenance inhaler (units (unknown) date) in the past; she unknown) recalls being on Flovent which she felt did (unknown) (no (unknown) (unknown) may occur. (units (unk nown) date) Occasional unknown) wrong-word or 'sound-alike' substitutions may have (unknown) (no (unknown) (unknown) may repeat 1 tab (units (unknown) date) after at least 2 unknown) hrs; max = 4 tabs/24 hr PO 10 tabs 3RF (unknown) (no (unknown) (unknown) methocarbamol 750 (units (unknown) date) mg PO QID PRN 30 unknown) tabs 2RF muscle spasm (unknown) (no (unknown) (unknown) methocarbamol 750 mg (unit s (unknown) date) tablet 750 mg PO QID unknown) PRN muscle spasm #30 tabs 03/26/22 [Rx (unknown) (no (unknown) (unknown) monitoring. (units (un known) date) unknown) (unknown) (no (unknown) (unknown) movement hurts (units (unknown) date) chest. unknown) (unknown) (no (unknown) (unknown) nickel Adverse (units (unknown) date) Reaction (Mild, unknown) Verified 03/26/22 11:39) (unknown) (no (unknown) (unknown) not work very (units ( unknown) date) well.? She is not unknown) sure what other inhalers she has tried. (unknown) (no (unknown) (unknown) occurred due to the (unit s (unknown) date) inherent limitations unknown) of voice recognition software. Please (unknown) (no (unknown) (unknown) of chest pain, (units ( unknown) date) cough, sternal pain, unknown) bilateral breast lumps.? At the ED she had a (unknown) (no (unknown) (unknown) omeprazole 20 mg PO (unit s (unknown) date) BID 60 caps 0RF unknown) (unknown) (no (unknown) (unknown) omeprazole 20 mg (units (unknown) date) capsule,delayed unknown) release 20 mg PO BID #60 caps 03/26/22 [Rx (unknown) (no (unknown) (unknown) ondansetron 4 mg (units (unknown) date) disintegrating unknown) tablet 4 mg PO QID PRN nausea and vomiting #14 (unknown) (no (unknown) (unknown) order for a (units (un known) date) three-month unknown) follow-up CT chest. ?Bilateral diagnostic mammogram and (unknown) (no (unknown) (unknown) pulmonary nodule, (units (unknown) date) open heart surgery unknown) 2008. 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 unknown) (unknown) (no (unknown) (unknown) read the note (units ( unknown) date) carefully and unknown) recognize, using context, where these substitutions (unknown) (no (unknown) (unknown) recommend 2 weeks (units (unknown) date) off from work and unknown) she will see me for follow-up visit in 2 (unknown) (no (unknown) (unknown) report of frequency (unit s (unknown) date) of use of rescue unknown) inhaler a maintenance medication is (unknown) (no (unknown) (unknown) she describes as (units (unknown) date) ?unnecessary open unknown) heart surgery? at [facility] in 2008.? 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 (unit s (unknown) date) some tooth pain. unknown) malaise. (unknown) (no (unknown) (unknown) sumatriptan (units (un known) date) succinate (Imitrex) unknown) take 1 tab at onset of headache; if no relief (unknown) (no (unknown) (unknown) sumatriptan (units (unk nown) date) succinate 50 mg unknown) tablet (Imitrex) See Rx Instructions PO .COMPLEX #10 (unknown) (no (unknown) (unknown) tabs 03/26/22 [Rx (units (unknown) date) Confirmed 03/26/22] unknown) (unknown) (no (unknown) (unknown) tabs 04/05/18 [Rx (units (unknown) date) Confirmed 03/26/22] unknown) (unknown) (no (unknown) (unknown) thought to be (units ( unknown) date) present based on the unknown) echocardiogram was not present.? 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 then unknown) got nauseous, significant AL. (unknown) (no (unknown) (unknown) ultrasound were (units (unknown) date) already ordered. unknown) ?Ms. Patino performed a breast exam at that (unknown) (no (unknown) (unknown) visit and (units (unkn own) date) encouraged the unknown) patient to schedule imaging as ordered. (unknown) (no (unknown) (unknown) vomiting after ED (units (unknown) date) visit, none in past unknown) 2 days. (unknown) (no (unknown) (unknown) was part of the (units (unknown) date) cluster of symptoms unknown) with which she presented to the ED. she has (unknown) (no (unknown) (unknown) weeks.? Contact us (units (unknown) date) sooner for any unknown) problems.? (unknown) (no (unknown) (unknown) would be lower in (units (unknown) date) stress.? 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 620 (unknown) (no (unknown) (unknown) (no value) (units (unk nown) date) unknown) (unknown) (no (unknown) (unknown) (1) Pulmonary (units ( unknown) date) nodule: unknown) (unknown) (no (unknown) (unknown) (2) Mild (units (unkno wn) date) persistent asthma: unknown) (unknown) (no (unknown) (unknown) (3) Bilateral (units ( unknown) date) breast lump: unknown) (unknown) (no (unknown) (unknown) 03/26/22 (units (unkno wn) date) unknown) (unknown) (no (unknown) (unknown) 03/26/22] (units (unkn own) date) unknown) (unknown) (no (unknown) (unknown) 11:39) (units (unkno wn) date) unknown) (unknown) (no (unknown) (unknown) 11:41 (units (unkno wn) date) unknown) (unknown) (no (unknown) (unknown) 36 yo female (units (u nknown) date) presents today for unknown) 2 week f/u asthma and multiple issues (unknown) (no (unknown) (unknown) 36-year-old female (units (unknown) date) presents for a 2 unknown) week follow-up on multiple issues.? As it (unknown) (no (unknown) (unknown) 36-year-old female (units (unknown) date) presents to unknown) establish here.? She lives in [place], (unknown) (no (unknown) (unknown) Affect: normal (units (unknown) date) affect unknown) (unknown) (no (unknown) (unknown) Age/Sex: 36 / F (units (unknown) date) Date of Service: unknown) (unknown) (no (unknown) (unknown) All systems (units (un known) date) reviewed + are unknown) unremarkable except as noted in HPI and below (unknown) (no (unknown) (unknown) Allergies (units (unkn own) date) unknown) (unknown) (no (unknown) (unknown) [place], [place] (units ( unknown) date) [id number] unknown) (unknown) (no (unknown) (unknown) Anxiety (units (unkno wn) date) unknown) (unknown) (no (unknown) (unknown) Anxiety/depression (units (unknown) date) : Patient states unknown) that she has tried to find a therapist (unknown) (no (unknown) (unknown) Appearance: (units (un known) date) grossly normal unknown) (unknown) (no (unknown) (unknown) Assessment + Plan (units (unknown) date) unknown) (unknown) (no (unknown) (unknown) Asthma (units (unkno wn) date) complication type: unknown) uncomplicated Qualified Code(s): J45.30 (unknown) (no (unknown) (unknown) Asthma (units (unkno wn) date) unknown) (unknown) (no (unknown) (unknown) At the last visit (units (unknown) date) we agreed to start unknown) the patient on Advair due to her (unknown) (no (unknown) (unknown) Attending Dr: (units ( unknown) date) Wes SCOTT unknown) (unknown) (no (unknown) (unknown) Attitude: (units (unkn own) date) cooperative unknown) (unknown) (no (unknown) (unknown) Auscultation: (units ( unknown) date) clear to unknown) auscultation bilaterally (unknown) (no (unknown) (unknown) BMI 18.5 (units (unkno wn) date) unknown) (unknown) (no (unknown) (unknown) BP 97/57 L (units (unk nown) date) unknown) (unknown) (no (unknown) (unknown) Blood Pressure (units (unknown) date) Location Rt radial unknown) (unknown) (no (unknown) (unknown) Breast tenderness (units (unknown) date) and lumps: Patient unknown) reminded to schedule mammogram and (unknown) (no (unknown) (unknown) CT was negative.? (units (unknown) date) She was diagnosed unknown) with migraine for which she was given (unknown) (no (unknown) (unknown) Cardio (units (unkno wn) date) unknown) (unknown) (no (unknown) (unknown) Chest (units (unkno wn) date) unknown) (unknown) (no (unknown) (unknown) Chief Complaint (units (unknown) date) unknown) (unknown) (no (unknown) (unknown) Chief Complaint: (units (unknown) date) f/u multiple issues unknown) (unknown) (no (unknown) (unknown) Cognition: normal (units (unknown) date) cognition unknown) (unknown) (no (unknown) (unknown) Confirmed (units (unkn own) date) 03/26/22] unknown) (unknown) (no (unknown) (unknown) Const (units (unkno wn) date) unknown) (unknown) (no (unknown) (unknown) : 1985 (units (unknown) date) Acct:[id number] unknown) (unknown) (no (unknown) (unknown) Depression (units (unk nown) date) unknown) (unknown) (no (unknown) (unknown) Dept at (units (unkno wn) date) . unknown) (unknown) (no (unknown) (unknown) Details: (units (unkno wn) date) unknown) (unknown) (no (unknown) (unknown) Diffuse TTP left (units (unknown) date) chest wall. unknown) (unknown) (no (unknown) (unknown) Diffuse TTP over (units (unknown) date) left TMJ. Able to unknown) open and close jaw normally with apparent (unknown) (no (unknown) (unknown) Documented By: (units (unknown) date) Wes Herrera unknown) 03/26/22 1138 (unknown) (no (unknown) (unknown) Draft (units (unkno wn) date) unknown) (unknown) (no (unknown) (unknown) EKG was performed (units (unknown) date) which initially unknown) appeared abnormal but leads were moved and (unknown) (no (unknown) (unknown) Effort + (units (unkno wn) date) Inspection: normal unknown) respiratory effort (unknown) (no (unknown) (unknown) Exam (units (unkno wn) date) unknown) (unknown) (no (unknown) (unknown) Extrem (units (unkno wn) date) unknown) (unknown) (no (unknown) (unknown) Eyes (units (unkno wn) date) unknown) (unknown) (no (unknown) (unknown) [facility] (units (unknown) date) Office Visit unknown) (unknown) (no (unknown) (unknown) April 02.? (units (unknown) date) Pulmonology visit unknown) scheduled April 13.? Notes that movement (unknown) (no (unknown) (unknown) [facility]) (unknown) (no (unknown) (unknown) [place] (units (unkno wn) date) unknown) (unknown) (no (unknown) (unknown) GI (units (unkno wn) date) unknown) (unknown) (no (unknown) (unknown) Gait: normal gait (units (unknown) date) unknown) (unknown) (no (unknown) (unknown) Gastrointestinal (units (unknown) date) Upset unknown) (unknown) (no (unknown) (unknown) General: (units (unkno wn) date) appearance normal, unknown) both eyes and all related structures (unknown) (no (unknown) (unknown) General: (units (unkno wn) date) cooperative and no unknown) acute distress (unknown) (no (unknown) (unknown) General: no rashes (units (unknown) date) or lesions noted unknown) (unknown) (no (unknown) (unknown) General: normal to (units (unknown) date) inspection and no unknown) edema (unknown) (no (unknown) (unknown) General: patient (units (unknown) date) alert, patient unknown) awake and patient oriented x3 (unknown) (no (unknown) (unknown) H/O exploratory (units (unknown) date) laparotomy unknown) (unknown) (no (unknown) (unknown) H/O left knee (units ( unknown) date) surgery unknown) (unknown) (no (unknown) (unknown) HENMT (units (unkno wn) date) unknown) (unknown) (no (unknown) (unknown) HFA) 2 puff (units (un known) date) inhalation BID #12 unknown) grams 03/13/22 [Rx Confirmed 03/26/22] (unknown) (no (unknown) (unknown) HPI (units (unkno wn) date) unknown) (unknown) (no (unknown) (unknown) Head: normal to (units (unknown) date) inspection unknown) (unknown) (no (unknown) (unknown) Heart Sounds: S1 (units (unknown) date) normal, S2 normal, unknown) normal S1 and S2 and no murmurs (unknown) (no (unknown) (unknown) Height 160.02 cm (units (unknown) date) unknown) (unknown) (no (unknown) (unknown) History of open (units (unknown) date) heart surgery unknown) (unknown) (no (unknown) (unknown) History of surgery (units (unknown) date) unknown) (unknown) (no (unknown) (unknown) Inspection: normal (units (unknown) date) to inspection unknown) (unknown) (no (unknown) (unknown) Intake Note: (units (u nknown) date) unknown) (unknown) (no (unknown) (unknown) Intake performed (units (unknown) date) by: Germaine Bates unknown) (unknown) (no (unknown) (unknown) Intake (units (unkno wn) date) unknown) (unknown) (no (unknown) (unknown) Intake- Clincial (units (unknown) date) Staff unknown) (unknown) (no (unknown) (unknown) Irritation/redness (units (unknown) date) unknown) (unknown) (no (unknown) (unknown) Judgment: judgment (units (unknown) date) good unknown) (unknown) (no (unknown) (unknown) Kidney infection (units (unknown) date) unknown) (unknown) (no (unknown) (unknown) L TMJ TTP. L chest (units (unknown) date) TTP and epigastric unknown) ttp. likely tmj issue. schedule for (unknown) (no (unknown) (unknown) L upper tooth (units ( unknown) date) hurting, sensitive. unknown) did not think infection, states grinding. (unknown) (no (unknown) (unknown) Last Menstural (units (unknown) date) Cycle + Details unknown) (unknown) (no (unknown) (unknown) Loc: [facility] (units (unkno wn) date) unknown) (unknown) (no (unknown) (unknown) [id number] (units (unk nown) date) unknown) (unknown) (no (unknown) (unknown) Medical History (units (unknown) date) (Reviewed 03/31/22 unknown) @ 11:58 by TYLER Mckeon) (unknown) (no (unknown) (unknown) Medications (units (un known) date) unknown) (unknown) (no (unknown) (unknown) Medications: (units (u nknown) date) unknown) (unknown) (no (unknown) (unknown) Mental Status: (units (unknown) date) mental status unknown) grossly normal (unknown) (no (unknown) (unknown) Mild persistent (units (unknown) date) asthma unknown) (unknown) (no (unknown) (unknown) Mild persistent (units (unknown) date) asthma, unknown) uncomplicated (unknown) (no (unknown) (unknown) Mild persistent (units (unknown) date) asthma: lung exam unknown) unremarkable in clinic; however, based on her (unknown) (no (unknown) (unknown) Mood: congruent (units (unknown) date) mood unknown) (unknown) (no (unknown) (unknown) Neck mass: No (units ( unknown) date) unknown) (unknown) (no (unknown) (unknown) Neck (units (unkno wn) date) unknown) (unknown) (no (unknown) (unknown) Neck: normal (units (u nknown) date) visual inspection unknown) and no lymphadenopathy (unknown) (no (unknown) (unknown) Neuro (units (unkno wn) date) unknown) (unknown) (no (unknown) (unknown) New (units (unkno wn) date) unknown) (unknown) (no (unknown) (unknown) On March 24 (units (unknown) date) she took 2 OTC unknown) Excedrin tabs for the chest pain.? Thereafter (unknown) (no (unknown) (unknown) Other Menstrual (units (unknown) date) Period: Other unknown) (unknown) (no (unknown) (unknown) Other: (units (unkno wn) date) unknown) (unknown) (no (unknown) (unknown) Oxygen Delivery (units (unknown) date) Method room air unknown) (unknown) (no (unknown) (unknown) PFSH (units (unkno wn) date) unknown) (unknown) (no (unknown) (unknown) Palpation: soft, (units (unknown) date) no unknown) hepatosplenomegaly, no guarding, no hernias, no masses and (unknown) (no (unknown) (unknown) Patient has had (units (unknown) date) pain localized to unknown) the left TMJ area.? Believes that she grinds (unknown) (no (unknown) (unknown) Patient: (units (unkno wn) date) Carmina Castillo A unknown) MR#: (unknown) (no (unknown) (unknown) Penicillins (units (un known) date) Allergy unknown) (Intermediate, Verified 03/26/22 11:39) (unknown) (no (unknown) (unknown) Percussion: normal (units (unknown) date) to percussion unknown) (unknown) (no (unknown) (unknown) Pertussis Vaccines (units (unknown) date) [PERTUSSIS unknown) VACCINES] Allergy (Unknown, Verified 03/26/22 (unknown) (no (unknown) (unknown) Plan (units (unkno wn) date) unknown) (unknown) (no (unknown) (unknown) Position Sitting (units (unknown) date) unknown) (unknown) (no (unknown) (unknown) Psych (units (unkno wn) date) unknown) (unknown) (no (unknown) (unknown) Psychiatry (units (unkn own) date) Department; she unknown) understands that it will be a wait to see a therapist (unknown) (no (unknown) (unknown) Pulmonary nodules: (units (unknown) date) Maintain plan for unknown) follow-up chest CT in 3 months and (unknown) (no (unknown) (unknown) Pulse 57 L (units (unk nown) date) unknown) (unknown) (no (unknown) (unknown) Pulse Oximetry (%) (units (unknown) date) 99 unknown) (unknown) (no (unknown) (unknown) Pulse Source (units (u nknown) date) Monitor unknown) (unknown) (no (unknown) (unknown) Qualifiers: (units (un known) date) unknown) (unknown) (no (unknown) (unknown) ROS (units (unkno wn) date) unknown) (unknown) (no (unknown) (unknown) Rash (units (unkno wn) date) unknown) (unknown) (no (unknown) (unknown) Rash, throat was (units (unknown) date) tingly unknown) (unknown) (no (unknown) (unknown) Rate: regular rate (units (unknown) date) unknown) (unknown) (no (unknown) (unknown) Reason For Visit (units (unknown) date) unknown) (unknown) (no (unknown) (unknown) Resp (units (unkno wn) date) unknown) (unknown) (no (unknown) (unknown) Respiration 16 (units (unknown) date) unknown) (unknown) (no (unknown) (unknown) Rhythm: regular (units (unknown) date) rhythm unknown) (unknown) (no (unknown) (unknown) S/P laparoscopic (units (unknown) date) supracervical unknown) hysterectomy (04/04/18) (unknown) (no (unknown) (unknown) Seizure (units (unkno wn) date) unknown) (unknown) (no (unknown) (unknown) She does continue (units (unknown) date) to experience left unknown) chest pain.? Has her mammogram scheduled on (unknown) (no (unknown) (unknown) Signed By: (units (unk nown) date) unknown) (unknown) (no (unknown) (unknown) Skin (units (unkno wn) date) unknown) (unknown) (no (unknown) (unknown) Smoking Status: (units (unknown) date) Former smoker unknown) (unknown) (no (unknown) (unknown) Social History (units (unknown) date) unknown) (unknown) (no (unknown) (unknown) Speech: speech (units (unknown) date) normal unknown) (unknown) (no (unknown) (unknown) Status: Acute (units ( unknown) date) unknown) (unknown) (no (unknown) (unknown) Status: Inactive (units (unknown) date) unknown) (unknown) (no (unknown) (unknown) Stomach pain, (units ( unknown) date) nausea, headache unknown) (unknown) (no (unknown) (unknown) Surgical History (units (unknown) date) (Reviewed 03/31/22 unknown) @ 11:58 by TYLER Mckeon) (unknown) (no (unknown) (unknown) This note may have (units (unknown) date) been all or unknown) partially generated using voice recognition (unknown) (no (unknown) (unknown) Thought Content: (units (unknown) date) normal unknown) (unknown) (no (unknown) (unknown) Thought Process: (units (unknown) date) normal unknown) (unknown) (no (unknown) (unknown) Thyroid: thyroid (units (unknown) date) normal unknown) (unknown) (no (unknown) (unknown) Tobacco + (units (unkn own) date) Substance Use unknown) (unknown) (no (unknown) (unknown) Tobacco Status (units (unknown) date) unknown) (unknown) (no (unknown) (unknown) Tylenol, Zofran, (units (unknown) date) fluids, morphine unknown) and ultimately discharge.? She had vomiting (unknown) (no (unknown) (unknown) Visit Reasons: 2wk (units (unknown) date) f/u asthma/multiple unknown) issues 02 (unknown) (no (unknown) (unknown) Vitals (units (unkno wn) date) unknown) (unknown) (no (unknown) (unknown) [place] with (units (unknown) date) her and her unknown) 3 kids ages 6, 11, 17.? 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 unknown) omeprazole, robaxin, imitrex. f/u at (unknown) (no (unknown) (unknown) acupuncture (units (un known) date) visits. unknown) (unknown) (no (unknown) (unknown) after the ED visit (units (unknown) date) but none after that unknown) day. (unknown) (no (unknown) (unknown) albuterol sulfate (units (unknown) date) 90 mcg/actuation unknown) aerosol inhaler (ProAir HFA) 1 puff (unknown) (no (unknown) (unknown) amoxicillin (units (un known) date) Allergy unknown) (Intermediate, Verified 03/26/22 11:39) (unknown) (no (unknown) (unknown) and that this (units ( unknown) date) psychotherapy unknown) program would be short-term only. (unknown) (no (unknown) (unknown) azithromycin (units (u nknown) date) Allergy unknown) (Intermediate, Verified 03/26/22 11:39) (unknown) (no (unknown) (unknown) back in august. not (units (unknown) date) sure if this is unknown) related to AL. (unknown) (no (unknown) (unknown) benefit from (units (u nknown) date) additional time off unknown) of work to recover. We agreed that we will (unknown) (no (unknown) (unknown) branches.? (units (unk nown) date) unknown) (unknown) (no (unknown) (unknown) changes. Will (units ( unknown) date) contact her with unknown) results and recommendations. (unknown) (no (unknown) (unknown) ciprofloxacin (units ( unknown) date) Allergy unknown) (Intermediate, Verified 03/26/22 11:39) (unknown) (no (unknown) (unknown) fluticasone (units (un known) date) propionate 230 unknown) mcg-salmeterol 21 mcg/actuation HFA inhaler (Advair (unknown) (no (unknown) (unknown) gluten Adverse (units (unknown) date) Reaction (Mild, unknown) Verified 03/26/22 11:39) (unknown) (no (unknown) (unknown) had to call out of (units (unknown) date) work and feels that unknown) due to multiple ongoing issues she would (unknown) (no (unknown) (unknown) has mammo/us 04/02 (units (unknown) date) unknown) (unknown) (no (unknown) (unknown) have occurred. If (units (unknown) date) there are any unknown) questions, please contact the Medical Records (unknown) (no (unknown) (unknown) her teeth.? This (units (unknown) date) began back in August unknown) 2021.? She is not sure whether that might be (unknown) (no (unknown) (unknown) household members: (units (unknown) date) spouse and children unknown) (unknown) (no (unknown) (unknown) hydromorphone (units ( unknown) date) Allergy (Mild, unknown) Verified 03/26/22 11:39) (unknown) (no (unknown) (unknown) ibuprofen Allergy (units (unknown) date) (Mild, Verified unknown) 03/26/22 11:39) (unknown) (no (unknown) (unknown) inadequately (units (u nknown) date) controlled asthma.? unknown) She states that her shortness a breath and (unknown) (no (unknown) (unknown) indicated. Trial (units (unknown) date) Advair. Patient is unknown) also still recovering from viral URI which (unknown) (no (unknown) (unknown) inhalation Q6H PRN (units (unknown) date) Adequate unknown) Ventilation #8.5 grams 03/08/22 [Rx Confirmed (unknown) (no (unknown) (unknown) inhaler as a (units (u nknown) date) result.? unknown) (unknown) (no (unknown) (unknown) leads to chest (units (unknown) date) pain. unknown) (unknown) (no (unknown) (unknown) locally but has (units (unknown) date) not had success. We unknown) agreed to a referral to [facility] (unknown) (no (unknown) (unknown) may occur. (units (unk nown) date) Occasional unknown) wrong-word or 'sound-alike' substitutions may have (unknown) (no (unknown) (unknown) may repeat 1 tab (units (unknown) date) after at least 2 unknown) hrs; max = 4 tabs/24 hr PO 10 tabs 3RF (unknown) (no (unknown) (unknown) methocarbamol 750 (units (unknown) date) mg PO QID PRN 30 unknown) tabs 2RF muscle spasm (unknown) (no (unknown) (unknown) methocarbamol 750 (units (unknown) date) mg tablet 750 mg PO unknown) QID PRN muscle spasm #30 tabs 03/26/22 [Rx (unknown) (no (unknown) (unknown) movement hurts (units (unknown) date) chest. unknown) (unknown) (no (unknown) (unknown) nickel Adverse (units (unknown) date) Reaction (Mild, unknown) Verified 03/26/22 11:39) (unknown) (no (unknown) (unknown) normal alignment. (units (unknown) date) unknown) (unknown) (no (unknown) (unknown) occurred due to (units (unknown) date) the inherent unknown) limitations of voice recognition software. 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 Patient unknown) reminded to schedule these. (unknown) (no (unknown) (unknown) read the note (units ( unknown) date) carefully and unknown) recognize, using context, where these substitutions (unknown) (no (unknown) (unknown) recommend 2 weeks (units (unknown) date) off from work and unknown) she will see me for follow-up visit in 2 (unknown) (no (unknown) (unknown) related to the (units (unknown) date) headache. ? unknown) (unknown) (no (unknown) (unknown) report of (units (unkn own) date) frequency of use of unknown) rescue inhaler a maintenance medication is (unknown) (no (unknown) (unknown) she became (units (unk nown) date) nauseous and got a unknown) fairly severe headache.? She went to the ED where (unknown) (no (unknown) (unknown) software. 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 some tooth pain. unknown) malaise. (unknown) (no (unknown) (unknown) sumatriptan (units (un known) date) succinate (Imitrex) unknown) take 1 tab at onset of headache; if no relief (unknown) (no (unknown) (unknown) sumatriptan (units (unk nown) date) succinate 50 mg unknown) tablet (Imitrex) See Rx Instructions PO .COMPLEX #10 (unknown) (no (unknown) (unknown) tabs 03/26/22 [Rx (units (unknown) date) Confirmed 03/26/22] unknown) (unknown) (no (unknown) (unknown) tabs 04/05/18 [Rx (units (unknown) date) Confirmed 03/26/22] unknown) (unknown) (no (unknown) (unknown) tender in the (units ( unknown) date) epigastrum (Mild); unknown) Noguera's sign negative and with no rebound (unknown) (no (unknown) (unknown) tenderness (units (unk nown) date) unknown) (unknown) (no (unknown) (unknown) that as well.? (units (unknown) date) unknown) (unknown) (no (unknown) (unknown) thereafter was (units (unknown) date) reassuring per ED unknown) provider.? She had 2 negative troponins.? 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 unknown) then got nauseous, significant AL. (unknown) (no (unknown) (unknown) turns out she has (units (unknown) date) also had an ED unknown) visit 2 days ago and is here to follow-up on (unknown) (no (unknown) (unknown) ultrasound as (units ( unknown) date) ordered. She unknown) declined breast exam today as she just had this done (unknown) (no (unknown) (unknown) vomiting after ED (units (unknown) date) visit, none in past unknown) 2 days. (unknown) (no (unknown) (unknown) was part of the (units (unknown) date) cluster of symptoms unknown) with which she presented to the ED. she has (unknown) (no (unknown) (unknown) weeks. Contact us (units (unknown) date) sooner for any unknown) problems. (unknown) (no (unknown) (unknown) wheeze have (units (un known) date) improved unknown) significantly and she has decreased the use of rescue (unknown) (no (unknown) (unknown) within the past (units (unknown) date) week when she was unknown) seen by another provider and she denies any (unknown) (no (unknown) (unknown) would be lower in (units (unknown) date) stress.? 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 621 (unknown) (no (unknown) (unknown) (no value) (units (unk nown) date) unknown) (unknown) (no (unknown) (unknown) (1) Mild persistent (unit s (unknown) date) asthma: unknown) (unknown) (no (unknown) (unknown) (2) Atypical chest (units (unknown) date) pain: unknown) (unknown) (no (unknown) (unknown) (3) Migraine: (units ( unknown) date) unknown) (unknown) (no (unknown) (unknown) (4) Pulmonary (units ( unknown) date) nodule: unknown) (unknown) (no (unknown) (unknown) (5) Bilateral (units ( unknown) date) breast lump: unknown) (unknown) (no (unknown) (unknown) (6) Arthralgia of (units (unknown) date) left unknown) temporomandibular joint: (unknown) (no (unknown) (unknown) 03/26/22 (units (unkno wn) date) unknown) (unknown) (no (unknown) (unknown) 03/26/22] (units (unkn own) date) unknown) (unknown) (no (unknown) (unknown) 03/31/22 1210 (units ( unknown) date) unknown) (unknown) (no (unknown) (unknown) 11:39) (units (unkno wn) date) unknown) (unknown) (no (unknown) (unknown) 11:41 (units (unkno wn) date) unknown) (unknown) (no (unknown) (unknown) 36 yo female (units (u nknown) date) presents today for 2 unknown) week f/u asthma and multiple issues (unknown) (no (unknown) (unknown) 36-year-old female (units (unknown) date) presents for a 2 unknown) week follow-up on multiple issues.? As it (unknown) (no (unknown) (unknown) Affect: normal (units (unknown) date) affect unknown) (unknown) (no (unknown) (unknown) Age/Sex: 36 / F (units (unknown) date) Date of Service: unknown) (unknown) (no (unknown) (unknown) All systems (units (un known) date) reviewed + are unknown) unremarkable except as noted in HPI and below (unknown) (no (unknown) (unknown) Allergies (units (unkn own) date) unknown) (unknown) (no (unknown) (unknown) [place] shrestha [id number] (unit s (unknown) date) unknown) (unknown) (no (unknown) (unknown) Anxiety (units (unkno wn) date) unknown) (unknown) (no (unknown) (unknown) Appearance: grossly (unit s (unknown) date) normal unknown) (unknown) (no (unknown) (unknown) Assessment + Plan (units (unknown) date) unknown) (unknown) (no (unknown) (unknown) Asthma complication (unit s (unknown) date) type: uncomplicated unknown) Qualified Code(s): J45.30 (unknown) (no (unknown) (unknown) Asthma (units (unkno wn) date) unknown) (unknown) (no (unknown) (unknown) At the last visit (units (unknown) date) we agreed to start unknown) the patient on Advair due to her (unknown) (no (unknown) (unknown) Attending Dr: (units ( unknown) date) Wes SCOTT unknown) (unknown) (no (unknown) (unknown) Attitude: (units (unkn own) date) cooperative unknown) (unknown) (no (unknown) (unknown) Atypical chest (units (unknown) date) pain: Discussed that unknown) while workup for pulmonary nodules and (unknown) (no (unknown) (unknown) Auscultation: clear (unit s (unknown) date) to auscultation unknown) bilaterally (unknown) (no (unknown) (unknown) BMI 18.5 (units (unkno wn) date) unknown) (unknown) (no (unknown) (unknown) BP 97/57 L (units (unk nown) date) unknown) (unknown) (no (unknown) (unknown) Blood Pressure (units (unknown) date) Location Rt radial unknown) (unknown) (no (unknown) (unknown) Breast tenderness (units (unknown) date) and lumps: Maintain unknown) plan for diagnostic mammogram and (unknown) (no (unknown) (unknown) CT was negative.? (units (unknown) date) She was diagnosed unknown) with migraine for which she was given (unknown) (no (unknown) (unknown) Cardio (units (unkno wn) date) unknown) (unknown) (no (unknown) (unknown) Chest (units (unkno wn) date) unknown) (unknown) (no (unknown) (unknown) Chief Complaint (units (unknown) date) unknown) (unknown) (no (unknown) (unknown) Chief Complaint: (units (unknown) date) f/u multiple issues unknown) (unknown) (no (unknown) (unknown) Cognition: normal (units (unknown) date) cognition unknown) (unknown) (no (unknown) (unknown) Confirmed 03/26/22] (unit s (unknown) date) unknown) (unknown) (no (unknown) (unknown) Const (units (unkno wn) date) unknown) (unknown) (no (unknown) (unknown) : 1985 (units (unknown) date) Acct:[id number] unknown) (unknown) (no (unknown) (unknown) Depression (units (unk nown) date) unknown) (unknown) (no (unknown) (unknown) Dept at (units (unkno wn) date) . unknown) (unknown) (no (unknown) (unknown) Details: (units (unkno wn) date) unknown) (unknown) (no (unknown) (unknown) Diffuse TTP left (units (unknown) date) chest wall. unknown) (unknown) (no (unknown) (unknown) Diffuse TTP over (units (unknown) date) left TMJ. Able to unknown) open and close jaw normally with apparent (unknown) (no (unknown) (unknown) Documented By: (units (unknown) date) Wes Herrera unknown) 03/26/22 1138 (unknown) (no (unknown) (unknown) EKG was performed (units (unknown) date) which initially unknown) appeared abnormal but leads were moved and (unknown) (no (unknown) (unknown) Effort + (units (unkno wn) date) Inspection: normal unknown) respiratory effort (unknown) (no (unknown) (unknown) Exam (units (unkno wn) date) unknown) (unknown) (no (unknown) (unknown) Extrem (units (unkno wn) date) unknown) (unknown) (no (unknown) (unknown) Eyes (units (unkno wn) date) unknown) (unknown) (no (unknown) (unknown) [facility] (units (unknown) date) Office Visit unknown) (unknown) (no (unknown) (unknown) April 02.? (units (unknown) date) Pulmonology visit unknown) scheduled April 13.? Notes that movement (unknown) (no (unknown) (unknown) [facility] unknown) (unknown) (no (unknown) (unknown) [place] (units (unkno wn) date) unknown) (unknown) (no (unknown) (unknown) GI (units (unkno wn) date) unknown) (unknown) (no (unknown) (unknown) Gait: normal gait (units (unknown) date) unknown) (unknown) (no (unknown) (unknown) Gastrointestinal (units (unknown) date) Upset unknown) (unknown) (no (unknown) (unknown) General: appearance (unit s (unknown) date) normal, both eyes unknown) and all related structures (unknown) (no (unknown) (unknown) General: (units (unkno wn) date) cooperative and no unknown) acute distress (unknown) (no (unknown) (unknown) General: no rashes (units (unknown) date) or lesions noted unknown) (unknown) (no (unknown) (unknown) General: normal to (units (unknown) date) inspection and no unknown) edema (unknown) (no (unknown) (unknown) General: patient (units (unknown) date) alert, patient awake unknown) and patient oriented x3 (unknown) (no (unknown) (unknown) H/O exploratory (units (unknown) date) laparotomy unknown) (unknown) (no (unknown) (unknown) H/O left knee (units ( unknown) date) surgery unknown) (unknown) (no (unknown) (unknown) HENMT (units (unkno wn) date) unknown) (unknown) (no (unknown) (unknown) HFA) 2 puff (units (un known) date) inhalation BID #12 unknown) grams 03/13/22 [Rx Confirmed 03/26/22] (unknown) (no (unknown) (unknown) HPI (units (unkno wn) date) unknown) (unknown) (no (unknown) (unknown) Head: normal to (units (unknown) date) inspection unknown) (unknown) (no (unknown) (unknown) Heart Sounds: S1 (units (unknown) date) normal, S2 normal, unknown) normal S1 and S2 and no murmurs (unknown) (no (unknown) (unknown) Height 160.02 cm (units (unknown) date) unknown) (unknown) (no (unknown) (unknown) History of open (units (unknown) date) heart surgery unknown) (unknown) (no (unknown) (unknown) History of surgery (units (unknown) date) unknown) (unknown) (no (unknown) (unknown) Inspection: normal (units (unknown) date) to inspection unknown) (unknown) (no (unknown) (unknown) Intake Note: (units (u nknown) date) unknown) (unknown) (no (unknown) (unknown) Intake performed (units (unknown) date) by: Germaine Bates unknown) (unknown) (no (unknown) (unknown) Intake (units (unkno wn) date) unknown) (unknown) (no (unknown) (unknown) Intake- Clincial (units (unknown) date) Staff unknown) (unknown) (no (unknown) (unknown) Irritation/redness (units (unknown) date) unknown) (unknown) (no (unknown) (unknown) Judgment: judgment (units (unknown) date) good unknown) (unknown) (no (unknown) (unknown) Kidney infection (units (unknown) date) unknown) (unknown) (no (unknown) (unknown) Last Menstural (units (unknown) date) Cycle + Details unknown) (unknown) (no (unknown) (unknown) Loc: [facility] (units (unkno wn) date) unknown) (unknown) (no (unknown) (unknown) [id number] (units (unk nown) date) unknown) (unknown) (no (unknown) (unknown) Medical History (units (unknown) date) (Reviewed 03/31/22 @ unknown) 11:58 by TYLER Mckeon) (unknown) (no (unknown) (unknown) Medications (units (un known) date) unknown) (unknown) (no (unknown) (unknown) Medications: (units (u nknown) date) unknown) (unknown) (no (unknown) (unknown) Mental Status: (units (unknown) date) mental status unknown) grossly normal (unknown) (no (unknown) (unknown) Migraine and left (units (unknown) date) TMJ pain: Imitrex unknown) ordered for as needed use. We will also (unknown) (no (unknown) (unknown) Migraine type: (units (unknown) date) without aura Status unknown) migrainosus presence: without status (unknown) (no (unknown) (unknown) Migraine without (units (unknown) date) aura, not unknown) intractable, without status migrainosus (unknown) (no (unknown) (unknown) Mild persistent (units (unknown) date) asthma unknown) (unknown) (no (unknown) (unknown) Mild persistent (units (unknown) date) asthma, unknown) uncomplicated (unknown) (no (unknown) (unknown) Mild persistent (units (unknown) date) asthma: Improved unknown) with Advair, continue regimen. (unknown) (no (unknown) (unknown) Mood: congruent (units (unknown) date) mood unknown) (unknown) (no (unknown) (unknown) Neck mass: No (units ( unknown) date) unknown) (unknown) (no (unknown) (unknown) Neck (units (unkno wn) date) unknown) (unknown) (no (unknown) (unknown) Neck: normal visual (unit s (unknown) date) inspection and no unknown) lymphadenopathy (unknown) (no (unknown) (unknown) Neuro (units (unkno wn) date) unknown) (unknown) (no (unknown) (unknown) New (units (unkno wn) date) unknown) (unknown) (no (unknown) (unknown) On March 24 (units (unknown) date) she took 2 OTC unknown) Excedrin tabs for the chest pain.? Thereafter (unknown) (no (unknown) (unknown) Other Menstrual (units (unknown) date) Period: Other unknown) (unknown) (no (unknown) (unknown) Other: (units (unkno wn) date) unknown) (unknown) (no (unknown) (unknown) Oxygen Delivery (units (unknown) date) Method room air unknown) (unknown) (no (unknown) (unknown) PFSH (units (unkno wn) date) unknown) (unknown) (no (unknown) (unknown) Palpation: soft, no (unit s (unknown) date) hepatosplenomegaly, unknown) no guarding, no hernias, no masses and (unknown) (no (unknown) (unknown) Patient has had (units (unknown) date) pain localized to unknown) the left TMJ area.? Believes that she grinds (unknown) (no (unknown) (unknown) Patient: (units (unkno wn) date) Carmina Castillo Kenneth unknown) MR#: (unknown) (no (unknown) (unknown) Penicillins Allergy (unit s (unknown) date) (Intermediate, unknown) Verified 03/26/22 11:39) (unknown) (no (unknown) (unknown) Percussion: normal (units (unknown) date) to percussion unknown) (unknown) (no (unknown) (unknown) Pertussis Vaccines (units (unknown) date) [PERTUSSIS VACCINES] unknown) Allergy (Unknown, Verified 03/26/22 (unknown) (no (unknown) (unknown) Plan (units (unkno wn) date) unknown) (unknown) (no (unknown) (unknown) Position Sitting (units (unknown) date) unknown) (unknown) (no (unknown) (unknown) Psych (units (unkno wn) date) unknown) (unknown) (no (unknown) (unknown) Pulmonary nodules: (units (unknown) date) Maintain plan for unknown) follow-up chest CT in 3 months and (unknown) (no (unknown) (unknown) Pulse 57 L (units (unk nown) date) unknown) (unknown) (no (unknown) (unknown) Pulse Oximetry (%) (units (unknown) date) 99 unknown) (unknown) (no (unknown) (unknown) Pulse Source (units (u nknown) date) Monitor unknown) (unknown) (no (unknown) (unknown) Qualifiers: (units (un known) date) unknown) (unknown) (no (unknown) (unknown) ROS (units (unkno wn) date) unknown) (unknown) (no (unknown) (unknown) Rash (units (unkno wn) date) unknown) (unknown) (no (unknown) (unknown) Rash, throat was (units (unknown) date) tingly unknown) (unknown) (no (unknown) (unknown) Rate: regular rate (units (unknown) date) unknown) (unknown) (no (unknown) (unknown) Reason For Visit (units (unknown) date) unknown) (unknown) (no (unknown) (unknown) Resp (units (unkno wn) date) unknown) (unknown) (no (unknown) (unknown) Respiration 16 (units (unknown) date) unknown) (unknown) (no (unknown) (unknown) Rhythm: regular (units (unknown) date) rhythm unknown) (unknown) (no (unknown) (unknown) S/P laparoscopic (units (unknown) date) supracervical unknown) hysterectomy (04/04/18) (unknown) (no (unknown) (unknown) Seizure (units (unkno wn) date) unknown) (unknown) (no (unknown) (unknown) She does continue to (unit s (unknown) date) experience left unknown) chest pain.? Has her mammogram scheduled on (unknown) (no (unknown) (unknown) Signed By: (units (unk nown) date) <Electronically unknown) signed by Wes Herrera> (unknown) (no (unknown) (unknown) Signed (units (unkno wn) date) unknown) (unknown) (no (unknown) (unknown) Skin (units (unkno wn) date) unknown) (unknown) (no (unknown) (unknown) Smoking Status: (units (unknown) date) Former smoker unknown) (unknown) (no (unknown) (unknown) Social History (units (unknown) date) unknown) (unknown) (no (unknown) (unknown) Speech: speech (units (unknown) date) normal unknown) (unknown) (no (unknown) (unknown) Status: Acute (units ( unknown) date) unknown) (unknown) (no (unknown) (unknown) Status: Inactive (units (unknown) date) unknown) (unknown) (no (unknown) (unknown) Stomach pain, (units ( unknown) date) nausea, headache unknown) (unknown) (no (unknown) (unknown) Surgical History (units (unknown) date) (Reviewed 03/31/22 @ unknown) 11:58 by TYLER Mckeon) (unknown) (no (unknown) (unknown) This note may have (units (unknown) date) been all or unknown) partially generated using voice recognition (unknown) (no (unknown) (unknown) Thought Content: (units (unknown) date) normal unknown) (unknown) (no (unknown) (unknown) Thought Process: (units (unknown) date) normal unknown) (unknown) (no (unknown) (unknown) Thyroid: thyroid (units (unknown) date) normal unknown) (unknown) (no (unknown) (unknown) Tobacco + Substance (unit s (unknown) date) Use unknown) (unknown) (no (unknown) (unknown) Tobacco Status (units (unknown) date) unknown) (unknown) (no (unknown) (unknown) Tylenol, Zofran, (units (unknown) date) fluids, morphine and unknown) ultimately discharge.? She had vomiting (unknown) (no (unknown) (unknown) Visit Reasons: 2wk (units (unknown) date) f/u asthma/multiple unknown) issues 02 (unknown) (no (unknown) (unknown) Vitals (units (unkno wn) date) unknown) (unknown) (no (unknown) (unknown) Weight 47.4 kg (units (unknown) date) unknown) (unknown) (no (unknown) (unknown) after the ED visit (units (unknown) date) but none after that unknown) day. (unknown) (no (unknown) (unknown) albuterol sulfate (units (unknown) date) 90 mcg/actuation unknown) aerosol inhaler (ProAir HFA) 1 puff (unknown) (no (unknown) (unknown) amoxicillin Allergy (unit s (unknown) date) (Intermediate, unknown) Verified 03/26/22 11:39) (unknown) (no (unknown) (unknown) and left TMJ pain. (units (unknown) date) We will follow-up to unknown) see how she responds to the medication (unknown) (no (unknown) (unknown) azithromycin (units (u nknown) date) Allergy unknown) (Intermediate, Verified 03/26/22 11:39) (unknown) (no (unknown) (unknown) breast lumps is (units (unknown) date) indicated, her pain unknown) could be due to a musculoskeletal cause or (unknown) (no (unknown) (unknown) ciprofloxacin (units ( unknown) date) Allergy unknown) (Intermediate, Verified 03/26/22 11:39) (unknown) (no (unknown) (unknown) fluticasone (units (un known) date) propionate 230 unknown) mcg-salmeterol 21 mcg/actuation HFA inhaler (Advair (unknown) (no (unknown) (unknown) gluten Adverse (units (unknown) date) Reaction (Mild, unknown) Verified 03/26/22 11:39) (unknown) (no (unknown) (unknown) have occurred. If (units (unknown) date) there are any unknown) questions, please contact the Medical Records (unknown) (no (unknown) (unknown) her teeth.? This (units (unknown) date) began back in August unknown) 2021.? She is not sure whether that might be (unknown) (no (unknown) (unknown) household members: (units (unknown) date) spouse and children unknown) (unknown) (no (unknown) (unknown) hydromorphone (units ( unknown) date) Allergy (Mild, unknown) Verified 03/26/22 11:39) (unknown) (no (unknown) (unknown) ibuprofen Allergy (units (unknown) date) (Mild, Verified unknown) 03/26/22 11:39) (unknown) (no (unknown) (unknown) inadequately (units (u nknown) date) controlled asthma.? unknown) She states that her shortness a breath and (unknown) (no (unknown) (unknown) inhalation Q6H PRN (units (unknown) date) Adequate Ventilation unknown) #8.5 grams 03/08/22 [Rx Confirmed (unknown) (no (unknown) (unknown) inhaler as a (units (u nknown) date) result.? unknown) (unknown) (no (unknown) (unknown) interventions when (units (unknown) date) we see her at the unknown) acupuncture visits. (unknown) (no (unknown) (unknown) leads to chest (units (unknown) date) pain. unknown) (unknown) (no (unknown) (unknown) may occur. (units (unk nown) date) Occasional unknown) wrong-word or 'sound-alike' substitutions may have (unknown) (no (unknown) (unknown) may repeat 1 tab (units (unknown) date) after at least 2 unknown) hrs; max = 4 tabs/24 hr PO 10 tabs 3RF (unknown) (no (unknown) (unknown) medical acupuncture (unit s (unknown) date) at which we could unknown) focus on her chest pain and/or headache (unknown) (no (unknown) (unknown) methocarbamol 750 (units (unknown) date) mg PO QID PRN 30 unknown) tabs 2RF muscle spasm (unknown) (no (unknown) (unknown) methocarbamol 750 mg (unit s (unknown) date) tablet 750 mg PO QID unknown) PRN muscle spasm #30 tabs 03/26/22 [Rx (unknown) (no (unknown) (unknown) migrainosus (units (un known) date) Intractability: not unknown) intractable Qualified Code(s): G43.009 (unknown) (no (unknown) (unknown) nickel Adverse (units (unknown) date) Reaction (Mild, unknown) Verified 03/26/22 11:39) (unknown) (no (unknown) (unknown) normal alignment. (units (unknown) date) unknown) (unknown) (no (unknown) (unknown) occurred due to the (unit s (unknown) date) inherent limitations unknown) of voice recognition software. Please (unknown) (no (unknown) (unknown) omeprazole 20 mg PO (unit s (unknown) date) BID 60 caps 0RF unknown) (unknown) (no (unknown) (unknown) omeprazole 20 mg (units (unknown) date) capsule,delayed unknown) release 20 mg PO BID #60 caps 03/26/22 [Rx (unknown) (no (unknown) (unknown) ondansetron 4 mg (units (unknown) date) disintegrating unknown) tablet 4 mg PO QID PRN nausea and vomiting #14 (unknown) (no (unknown) (unknown) potentially a GI (units (unknown) date) cause as she does unknown) have some epigastric tenderness. We agreed (unknown) (no (unknown) (unknown) pulmonology (units (un known) date) consult. Patient unknown) reminded to schedule these. (unknown) (no (unknown) (unknown) read the note (units ( unknown) date) carefully and unknown) recognize, using context, where these substitutions (unknown) (no (unknown) (unknown) related to the (units (unknown) date) headache. ? unknown) (unknown) (no (unknown) (unknown) she became nauseous (unit s (unknown) date) and got a fairly unknown) severe headache.? She went to the ED where (unknown) (no (unknown) (unknown) software. 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 (unknown) (no (unknown) (unknown) sumatriptan (units (un known) date) succinate (Imitrex) unknown) take 1 tab at onset of headache; if no relief (unknown) (no (unknown) (unknown) sumatriptan (units (unk nown) date) succinate 50 mg unknown) tablet (Imitrex) See Rx Instructions PO .COMPLEX #10 (unknown) (no (unknown) (unknown) tabs 03/26/22 [Rx (units (unknown) date) Confirmed 03/26/22] unknown) (unknown) (no (unknown) (unknown) tabs 04/05/18 [Rx (units (unknown) date) Confirmed 03/26/22] unknown) (unknown) (no (unknown) (unknown) tender in the (units ( unknown) date) epigastrum (Mild); unknown) Noguera's sign negative and with no rebound (unknown) (no (unknown) (unknown) tenderness (units (unk nown) date) unknown) (unknown) (no (unknown) (unknown) that as well.? (units (unknown) date) unknown) (unknown) (no (unknown) (unknown) thereafter was (units (unknown) date) reassuring per ED unknown) provider.? She had 2 negative troponins.? Head (unknown) (no (unknown) (unknown) to a plan to trial (units (unknown) date) omeprazole and unknown) Robaxin. We will also schedule her for (unknown) (no (unknown) (unknown) treat with (units (unk nown) date) acupuncture. unknown) (unknown) (no (unknown) (unknown) turns out she has (units (unknown) date) also had an ED visit unknown) 2 days ago and is here to follow-up on (unknown) (no (unknown) (unknown) ultrasound. (units (un known) date) unknown) (unknown) (no (unknown) (unknown) wheeze have (units (un known) date) improved unknown) significantly and she has decreased the use of rescue Result panel 622 (unknown) (no (unknown) (unknown) (no value) (units (unk nown) date) unknown) (unknown) (no (unknown) (unknown) (category d (units (un known) date) unknown) (unknown) (no (unknown) (unknown) />75% glandular (units (unknown) date) tissue). unknown) (unknown) (no (unknown) (unknown) 04/02/22 (units (unkno wn) date) unknown) (unknown) (no (unknown) (unknown) [address] [place] [address] (units (unknown) date) unknown) (unknown) (no (unknown) (unknown) 15% of breast (units ( unknown) date) malignancies will unknown) not be visualized mammographically. In the (unknown) (no (unknown) (unknown) 7.0% and her 10 (units (unknown) date) year risk is unknown) 0.6%. According to the ACR, ACS, and NCCN (unknown) (no (unknown) (unknown) : [id number] (units (u nknown) date) unknown) (unknown) (no (unknown) (unknown) ACR BI-RADS (units (un known) date) Category 0: unknown) Incomplete 3340F (unknown) (no (unknown) (unknown) WES HERRERA (units (u nknown) date) unknown) (unknown) (no (unknown) (unknown) Accession (units (unkn own) date) Number: unknown) [id number] (unknown) (no (unknown) (unknown) Accession (units (unkn own) date) Number: unknown) [id number] (unknown) (no (unknown) (unknown) Accession (units (unkn own) date) Number: unknown) [id number] (unknown) (no (unknown) (unknown) Age/Sex: 36 / F (units (unknown) date) Date of Service: unknown) (unknown) (no (unknown) (unknown) [place], [place] (units ( unknown) date) [address] unknown) (unknown) (no (unknown) (unknown) Approved by: (units (u nknown) date) pilar Russell M.D. on 04/04/2022 at 16:08 (unknown) (no (unknown) (unknown) Approximately (units ( unknown) date) unknown) (unknown) (no (unknown) (unknown) At the request (units (unknown) date) of: unknown) (unknown) (no (unknown) (unknown) Attending (units (unkn own) date) Physician: Javier unknown) (unknown) (no (unknown) (unknown) BILATERAL (units (unkn own) date) DIGITAL unknown) DIAGNOSTIC MAMMOGRAM 3D/2D: 04/02/2022 (unknown) (no (unknown) (unknown) Based on the (units (u nknown) date) [place] unknown) model (a risk assessment model) the patient's (unknown) (no (unknown) (unknown) Both breasts are (units (unknown) date) extremely dense, unknown) which lowers the sensitivity of mammography (unknown) (no (unknown) (unknown) CLINICAL: (units (unkn own) date) Baseline unknown) Bilateral breast lumps. (unknown) (no (unknown) (unknown) CLINICAL: (units (unkn own) date) Palpable left unknown) breast lump by physician and focal pain. (unknown) (no (unknown) (unknown) CLINICAL: (units (unkn own) date) Palpable right unknown) breast lump by physician and focal pain. (unknown) (no (unknown) (unknown) COMPARISON: (units (un known) date) None. unknown) (unknown) (no (unknown) (unknown) Comparison is (units ( unknown) date) made to exam unknown) dated: 04/02/2022 mammogram - [facility]. (unknown) (no (unknown) (unknown) Continued Report (units (unknown) date) - Page 2 of 2 unknown) (unknown) (no (unknown) (unknown) : 1985 (units (unknown) date) Acct:[id number] unknown) (unknown) (no (unknown) (unknown) Date: 04/04/2022 (units (unknown) date) 16:09 unknown) (unknown) (no (unknown) (unknown) Dictated by: (units (u nknown) date) pilar Russell M.D. on 04/04/2022 at 16:02 (unknown) (no (unknown) (unknown) Doppler (units (unkno wn) date) ultrasound o unknown) (unknown) (no (unknown) (unknown) Electronically (units (unknown) date) Signed By: Dean Ortiz M.D. (unknown) (no (unknown) (unknown) FINDINGS: (units (unkn own) date) unknown) (unknown) (no (unknown) (unknown) IMPRESSION: (units (un known) date) BENIGN unknown) (unknown) (no (unknown) (unknown) IMPRESSION: (units (un known) date) INCOMPLETE: NEEDS unknown) ADDITIONAL IMAGING EVALUATION (unknown) (no (unknown) (unknown) IMPRESSION: (units (un known) date) unknown) (unknown) (no (unknown) (unknown) INDICATIONS: (units (u nknown) date) lymph nodes unknown) palpated in both breasts, bilateral breast lumps (unknown) (no (unknown) (unknown) Indications: (units (u nknown) date) unknown) (unknown) (no (unknown) (unknown) [facility] (units (unknown) date) unknown) (unknown) (no (unknown) (unknown) Loc: MAMMO (units (unk nown) date) unknown) (unknown) (no (unknown) (unknown) (units (unknown) date) date: unknown) 1985 Sex: F (unknown) (no (unknown) (unknown) Mammography (units (un known) date) Report unknown) (unknown) (no (unknown) (unknown) NOTE: For (units (unkn own) date) mammograms, a unknown) report in lay terms will be sent to the patient. (unknown) (no (unknown) (unknown) No abnormality (units (unknown) date) which corresponds unknown) with the area of pain is identified. (unknown) (no (unknown) (unknown) No prior exams (units (unknown) date) were available unknown) for comparison. (unknown) (no (unknown) (unknown) No significant (units (unknown) date) masses, unknown) calcifications, or other findings are seen in either (unknown) (no (unknown) (unknown) Ordering (units (unkno wn) date) Provider: unknown) Wes Herrera (unknown) (no (unknown) (unknown) PROCEDURE: US (units ( unknown) date) BREAST LT LIMITED unknown) (unknown) (no (unknown) (unknown) Patient Name: (units ( unknown) date) unknown) (unknown) (no (unknown) (unknown) Patient: (units (unkno wn) date) Carmina Castillo unknown) Kenneth MR# (unknown) (no (unknown) (unknown) Procedure: MM (units ( unknown) date) diagnostic mammo unknown) BI (unknown) (no (unknown) (unknown) Procedure: US (units ( unknown) date) breast LT limited unknown) (unknown) (no (unknown) (unknown) Procedure: US (units ( unknown) date) breast RT limited unknown) (unknown) (no (unknown) (unknown) Real-time and (units ( unknown) date) Doppler unknown) ultrasound of the right breast were performed. (unknown) (no (unknown) (unknown) Recommend annual (units (unknown) date) mammogram unknown) beginning at age 40 or per ACR guidelines. (unknown) (no (unknown) (unknown) CARMINA Cooper (units (un known) date) GAYLA unknown) (unknown) (no (unknown) (unknown) Signed (units (unkno wn) date) unknown) (unknown) (no (unknown) (unknown) The 0.4 cm x 0.8 (units (unknown) date) cm x 0.1 cm unknown) normal lymph node in the left breast is benign. (unknown) (no (unknown) (unknown) The 0.5 cm x 0.4 (units (unknown) date) cm x 0.2 cm round unknown) cyst in the right breast is consistent with (unknown) (no (unknown) (unknown) There are no (units (u nknown) date) abnormalities unknown) seen in the left breast to correspond with the areas (unknown) (no (unknown) (unknown) There are no (units (u nknown) date) abnormalities unknown) seen in the right breast to correspond with the (unknown) (no (unknown) (unknown) There is a (units (unk nown) date) benign 0.4 cm x unknown) 0.8 cm x 0.1 cm normal lymph node in the left breast (unknown) (no (unknown) (unknown) There is a (units (unk nown) date) benign 0.5 cm x unknown) 0.4 cm x 0.2 cm round cyst in the right breast at 12 (unknown) (no (unknown) (unknown) There is no (units (un known) date) sonographic unknown) evidence of malignancy. (unknown) (no (unknown) (unknown) This exam was (units ( unknown) date) interpreted at unknown) Station ID: [id number]. (unknown) (no (unknown) (unknown) This exam was (units ( unknown) date) interpreted at unknown) Station ID: [id number]. (unknown) (no (unknown) (unknown) ULTRASOUND OF (units ( unknown) date) LEFT BREAST: unknown) 04/02/2022 (unknown) (no (unknown) (unknown) ULTRASOUND OF (units ( unknown) date) RIGHT BREAST: unknown) 04/02/2022 (unknown) (no (unknown) (unknown) Ultrasound (units (unk nown) date) BI-RADS: 2 Benign unknown) (unknown) (no (unknown) (unknown) Ultrasound (units (unk nown) date) Report unknown) (unknown) (no (unknown) (unknown) a palpable (units (unk nown) date) breast mass, a unknown) negative mammogram must not discourage biopsy of a (unknown) (no (unknown) (unknown) a simple (units (unkno wn) date) unknown) (unknown) (no (unknown) (unknown) acr/:04/04/2022 (units (unknown) date) 16:09:22 unknown) (unknown) (no (unknown) (unknown) acr/:04/04/2022 (units (unknown) date) 16:09:54 unknown) (unknown) (no (unknown) (unknown) acr/:04/04/2022 (units (unknown) date) 16:10:11 unknown) (unknown) (no (unknown) (unknown) annual breast (units ( unknown) date) MRI exam along unknown) with mammogram is recommended if the patient's (unknown) (no (unknown) (unknown) areas of (units (unkno wn) date) unknown) (unknown) (no (unknown) (unknown) at 1, 2, 3, 9, (units (unknown) date) 10, 11, and 12 unknown) o'clock. (unknown) (no (unknown) (unknown) at 12 o'clock (units ( unknown) date) posterior unknown) (unknown) (no (unknown) (unknown) breast. (units (unkno wn) date) unknown) (unknown) (no (unknown) (unknown) clinical concern (units (unknown) date) at 1, 2, 3, 6, 7, unknown) 8, 9, 10, 11, and 12 o'clock which is (unknown) (no (unknown) (unknown) clinical (units (unkno wn) date) concern, pain, unknown) and redness at 1, 2, 3, 6, 7, 8, 9, 10, 11, and 12 (unknown) (no (unknown) (unknown) clinical (units (unkno wn) date) concern, pain, unknown) and redness at 1, 2, 3, 9, 10, 11, and 12 o'clock, (unknown) (no (unknown) (unknown) clinically (units (unk nown) date) unknown) (unknown) (no (unknown) (unknown) consistent with (units (unknown) date) unknown) (unknown) (no (unknown) (unknown) cyst and is (units (un known) date) benign. unknown) (unknown) (no (unknown) (unknown) depth 3 cm from (units (unknown) date) the nipple. unknown) (unknown) (no (unknown) (unknown) f the left (units (unk nown) date) breast was unknown) performed. Luke scale images of the real-time examination (unknown) (no (unknown) (unknown) guidelines, an (units (unknown) date) unknown) (unknown) (no (unknown) (unknown) however, (units (unkno wn) date) ultrasound is unknown) recommended. (unknown) (no (unknown) (unknown) however, (units (unkno wn) date) unknown) (unknown) (no (unknown) (unknown) is 20% or (units (unkn own) date) greater. unknown) (unknown) (no (unknown) (unknown) letter sent: (units (u nknown) date) Normal Exam unknown) (unknown) (no (unknown) (unknown) lifetime risk is (units (unknown) date) unknown) (unknown) (no (unknown) (unknown) lifetime risk (units ( unknown) date) unknown) (unknown) (no (unknown) (unknown) management of (units ( unknown) date) unknown) (unknown) (no (unknown) (unknown) normal (units (unkno wn) date) fibroglandular unknown) tissue. (unknown) (no (unknown) (unknown) o'clock (units (unkno wn) date) unknown) (unknown) (no (unknown) (unknown) o'clock, (units (unkno wn) date) unknown) (unknown) (no (unknown) (unknown) of clinical (units (un known) date) concern and pain unknown) (unknown) (no (unknown) (unknown) of (units (unkno wn) date) unknown) (unknown) (no (unknown) (unknown) posterior depth (units (unknown) date) 3 cm from the unknown) nipple. This round cyst is anechoic. (unknown) (no (unknown) (unknown) suspicious (units (unk nown) date) lesion. unknown) (unknown) (no (unknown) (unknown) ultrasound is (units ( unknown) date) recommended. unknown) (unknown) (no (unknown) (unknown) were reviewed. (units (unknown) date) unknown) Result panel 623 (unknown) (no date) (unknown) (unknown) (no value) (units (un known) unknown) (unknown) (no date) (unknown) (unknown) [address]units ([address] unknown) (unknown) (no date) (unknown) (unknown) : [id number] (units ( unknown) unknown) (unknown) (no date) (unknown) (unknown) Accession (units (unk nown) Number: unknown) (unknown) (no date) (unknown) (unknown) Age/Sex: 36 / (units (unknown) F Date of unknown) Service: (unknown) (no date) (unknown) (unknown) [place], [place] (units (unknown) [address] unknown) (unknown) (no date) (unknown) (unknown) Approved by: (units ( unknown) Dean unknown) Jose Ortiz on 04/04/2022 at 16:08 (unknown) (no date) (unknown) (unknown) COMPARISON: (units (u nknown) None. unknown) (unknown) (no date) (unknown) (unknown) Cancelled (units (unk nown) unknown) (unknown) (no date) (unknown) (unknown) : (units (unkn own) 1985 unknown) Acct:[id number] (unknown) (no date) (unknown) (unknown) Dictated by: (units ( unknown) Dean unknownWilfred Ortiz M.D. on 04/04/2022 at 16:02 (unknown) (no date) (unknown) (unknown) FINDINGS: (units (unk nown) unknown) (unknown) (no date) (unknown) (unknown) IMPRESSION: (units (u nknown) unknown) (unknown) (no date) (unknown) (unknown) INDICATIONS: (units ( unknown) lymph nodes unknown) palpated in both breasts, bilateral breast lumps (unknown) (no date) (unknown) (unknown) [facility] (unknown) (no date) (unknown) (unknown) Loc: MAMMO (units (un known) unknown) (unknown) (no date) (unknown) (unknown) Ordering (units (unkn own) Provider: unknown) (unknown) (no date) (unknown) (unknown) PROCEDURE: US (units (unknown) BREAST LT unknown) LIMITED (unknown) (no date) (unknown) (unknown) Patient: (units (unkn own) David Castillo unknown) ie A MR# (unknown) (no date) (unknown) (unknown) Procedure: (units (un known) unknown) (unknown) (no date) (unknown) (unknown) Ultrasound (units (un known) Report unknown) Result panel [id number] (unknown) (no (unknown) (unknown) (no value) (units (unk nown) date) unknown) (unknown) (no (unknown) (unknown) 04/09/22 (units (unkno wn) date) unknown) (unknown) (no (unknown) (unknown) 04/09/22] (units (unkn own) date) unknown) (unknown) (no (unknown) (unknown) 16:38) (units (unkno wn) date) unknown) (unknown) (no (unknown) (unknown) 16:39 (units (unkno wn) date) unknown) (unknown) (no (unknown) (unknown) Accompanied by: (units (unknown) date) Daughter unknown) (unknown) (no (unknown) (unknown) Acupuncture (units (un known) date) unknown) (unknown) (no (unknown) (unknown) Age/Sex: 36 / F (units (unknown) date) Date of Service: unknown) (unknown) (no (unknown) (unknown) Allergies (units (unkn own) date) unknown) (unknown) (no (unknown) (unknown) [place], [place] (units ( unknown) date) [address] unknown) (unknown) (no (unknown) (unknown) Anxiety (units (unkno wn) date) unknown) (unknown) (no (unknown) (unknown) Asthma (units (unkno wn) date) unknown) (unknown) (no (unknown) (unknown) Attending Dr: (units ( unknown) date) Wes SCOTT unknown) (unknown) (no (unknown) (unknown) BMI 19.8 (units (unkno wn) date) unknown) (unknown) (no (unknown) (unknown) BP 98/58 L (units (unk nown) date) unknown) (unknown) (no (unknown) (unknown) Blood Pressure (units (unknown) date) Location Lt unknown) brachial (unknown) (no (unknown) (unknown) Confirmed (units (unkn own) date) 04/09/22] unknown) (unknown) (no (unknown) (unknown) : 1985 (units (unknown) date) Acct:[id number] unknown) (unknown) (no (unknown) (unknown) Depression (units (unk nown) date) unknown) (unknown) (no (unknown) (unknown) Dept at (units (unkno wn) date) . unknown) (unknown) (no (unknown) (unknown) Documented By: (units (unknown) date) Wes Herrera unknown) 04/09/22 1637 (unknown) (no (unknown) (unknown) Draft (units (unkno wn) date) unknown) (unknown) (no (unknown) (unknown) Family Practice (units (unknown) date) Office Visit unknown) (unknown) (no (unknown) (unknown) [facility]) (unknown) (no (unknown) (unknown) [place] (units (unkno wn) date) unknown) (unknown) (no (unknown) (unknown) Gastrointestinal (units (unknown) date) [facility] unknown) (unknown) (no (unknown) (unknown) H/O exploratory (units (unknown) date) laparotomy unknown) (unknown) (no (unknown) (unknown) H/O left knee (units ( unknown) date) surgery unknown) (unknown) (no (unknown) (unknown) HFA) 2 puff (units (un known) date) inhalation BID #12 unknown) grams 03/13/22 [Rx Confirmed 04/09/22] (unknown) (no (unknown) (unknown) Health Management (units (unknown) date) reviewed with unknown) patient: No (unknown) (no (unknown) (unknown) Health Management (units (unknown) date) unknown) (unknown) (no (unknown) (unknown) Height 5 ft 3 in (units (unknown) date) unknown) (unknown) (no (unknown) (unknown) History of open (units (unknown) date) heart surgery unknown) (unknown) (no (unknown) (unknown) History of surgery (units (unknown) date) unknown) (unknown) (no (unknown) (unknown) Intake Note: (units (u nknown) date) unknown) (unknown) (no (unknown) (unknown) Intake performed (units (unknown) date) by: Татьяна Llanes unknown) (unknown) (no (unknown) (unknown) Intake (units (unkno wn) date) unknown) (unknown) (no (unknown) (unknown) Intake- Clincial (units (unknown) date) Staff unknown) (unknown) (no (unknown) (unknown) Irritation/redness (units (unknown) date) unknown) (unknown) (no (unknown) (unknown) Kidney infection (units (unknown) date) unknown) (unknown) (no (unknown) (unknown) Last Menstural (units (unknown) date) Cycle + Details unknown) (unknown) (no (unknown) (unknown) Loc: [facility] (units (unkno wn) date) unknown) (unknown) (no (unknown) (unknown) [id number] (units (unk nown) date) unknown) (unknown) (no (unknown) (unknown) Medical History (units (unknown) date) (Reviewed 03/31/22 unknown) @ 11:58 by TYLER Mckeon) (unknown) (no (unknown) (unknown) Medications (units (un known) date) unknown) (unknown) (no (unknown) (unknown) Mild persistent (units (unknown) date) asthma unknown) (unknown) (no (unknown) (unknown) Other Menstrual (units (unknown) date) Period: Other unknown) (unknown) (no (unknown) (unknown) PFSH (units (unkno wn) date) unknown) (unknown) (no (unknown) (unknown) Patient: (units (unkno wn) date) Carmina Castillo unknown) MR#: (unknown) (no (unknown) (unknown) Penicillins (units (un known) date) Allergy unknown) (Intermediate, Verified 04/09/22 16:38) (unknown) (no (unknown) (unknown) Pertussis Vaccines (units (unknown) date) [PERTUSSIS unknown) VACCINES] Allergy (Unknown, Verified 04/09/22 (unknown) (no (unknown) (unknown) Position Sitting (units (unknown) date) unknown) (unknown) (no (unknown) (unknown) Rash (units (unkno wn) date) unknown) (unknown) (no (unknown) (unknown) Rash, throat was (units (unknown) date) tingly unknown) (unknown) (no (unknown) (unknown) Reason For Visit (units (unknown) date) unknown) (unknown) (no (unknown) (unknown) Respiration 16 (units (unknown) date) unknown) (unknown) (no (unknown) (unknown) S/P laparoscopic (units (unknown) date) supracervical unknown) hysterectomy (04/04/18) (unknown) (no (unknown) (unknown) Seizure (units (unkno wn) date) unknown) (unknown) (no (unknown) (unknown) Signed By: (units (unk nown) date) unknown) (unknown) (no (unknown) (unknown) Smoking Status: (units (unknown) date) Former smoker unknown) (unknown) (no (unknown) (unknown) Social History (units (unknown) date) unknown) (unknown) (no (unknown) (unknown) Stomach pain, (units ( unknown) date) nausea, headache unknown) (unknown) (no (unknown) (unknown) Surgical History (units (unknown) date) (Reviewed 03/31/22 unknown) @ 11:58 by TYLER Mckeon) (unknown) (no (unknown) (unknown) This note may have (units (unknown) date) been all or unknown) partially generated using voice recognition (unknown) (no (unknown) (unknown) Tobacco + (units (unkn own) date) Substance Use unknown) (unknown) (no (unknown) (unknown) Tobacco Status (units (unknown) date) unknown) (unknown) (no (unknown) (unknown) Visit Reasons: (units (unknown) date) acupuncture 02 unknown) (unknown) (no (unknown) (unknown) Vitals (units (unkno wn) date) unknown) (unknown) (no (unknown) (unknown) Weight 112 lb 2 oz (units (unknown) date) unknown) (unknown) (no (unknown) (unknown) albuterol sulfate (units (unknown) date) 90 mcg/actuation unknown) aerosol inhaler (ProAir HFA) 1 puff (unknown) (no (unknown) (unknown) amoxicillin (units (un known) date) Allergy unknown) (Intermediate, Verified 04/09/22 16:38) (unknown) (no (unknown) (unknown) azithromycin (units (u nknown) date) Allergy unknown) (Intermediate, Verified 04/09/22 16:38) (unknown) (no (unknown) (unknown) ciprofloxacin (units ( unknown) date) Allergy unknown) (Intermediate, Verified 04/09/22 16:38) (unknown) (no (unknown) (unknown) fluticasone (units (un known) date) propionate 230 unknown) mcg-salmeterol 21 mcg/actuation HFA inhaler (Advair (unknown) (no (unknown) (unknown) gluten Adverse (units (unknown) date) Reaction (Mild, unknown) Verified 04/09/22 16:38) (unknown) (no (unknown) (unknown) have occurred. If (units (unknown) date) there are any unknown) questions, please contact the Medical Records (unknown) (no (unknown) (unknown) household members: (units (unknown) date) spouse and children unknown) (unknown) (no (unknown) (unknown) hydromorphone (units ( unknown) date) Allergy (Mild, unknown) Verified 04/09/22 16:38) (unknown) (no (unknown) (unknown) ibuprofen Allergy (units (unknown) date) (Mild, Verified unknown) 04/09/22 16:38) (unknown) (no (unknown) (unknown) inhalation Q6H PRN (units (unknown) date) Adequate unknown) Ventilation #8.5 grams 03/08/22 [Rx Confirmed (unknown) (no (unknown) (unknown) may occur. (units (unk nown) date) Occasional unknown) wrong-word or 'sound-alike' substitutions may have (unknown) (no (unknown) (unknown) methocarbamol 750 (units (unknown) date) mg tablet 750 mg PO unknown) QID PRN muscle spasm #30 tabs 03/26/22 [Rx (unknown) (no (unknown) (unknown) nickel Adverse (units (unknown) date) Reaction (Mild, unknown) Verified 04/09/22 16:38) (unknown) (no (unknown) (unknown) occurred due to (units (unknown) date) the inherent unknown) limitations of voice recognition software. Please (unknown) (no (unknown) (unknown) omeprazole 20 mg (units (unknown) date) capsule,delayed unknown) release 20 mg PO BID #60 caps 03/26/22 [Rx (unknown) (no (unknown) (unknown) ondansetron 4 mg (units (unknown) date) disintegrating unknown) tablet 4 mg PO QID PRN nausea and vomiting #14 (unknown) (no (unknown) (unknown) read the note (units ( unknown) date) carefully and unknown) recognize, using context, where these substitutions (unknown) (no (unknown) (unknown) software. Although (units (unknown) date) every effort is unknown) made to edit content, milling machine operator gear errors (unknown) (no (unknown) (unknown) sumatriptan (units (unk nown) date) succinate 50 mg unknown) tablet (Imitrex) See Rx Instructions PO .COMPLEX #10 (unknown) (no (unknown) (unknown) tabs 03/26/22 [Rx (units (unknown) date) Confirmed 04/09/22] unknown) (unknown) (no (unknown) (unknown) tabs 04/05/18 [Rx (units (unknown) date) Confirmed 04/09/22] unknown) Result panel 625 (unknown) (no (unknown) (unknown) (no value) (units (unk nown) date) unknown) (unknown) (no (unknown) (unknown) 04/09/22 (units (unkno wn) date) unknown) (unknown) (no (unknown) (unknown) 04/09/22] (units (unkn own) date) unknown) (unknown) (no (unknown) (unknown) 16:38) (units (unkno wn) date) unknown) (unknown) (no (unknown) (unknown) 16:39 (units (unkno wn) date) unknown) (unknown) (no (unknown) (unknown) 30 needles neck (units (unknown) date) acu neutral. if unknown) ineffective consider ct pens next visit. (unknown) (no (unknown) (unknown) Accompanied by: (units (unknown) date) Daughter unknown) (unknown) (no (unknown) (unknown) Acupuncture (units (un known) date) unknown) (unknown) (no (unknown) (unknown) Age/Sex: 36 / F (units (unknown) date) Date of Service: unknown) (unknown) (no (unknown) (unknown) Allergies (units (unkn own) date) unknown) (unknown) (no (unknown) (unknown) [place], [place] (units ( unknown) date) [id number] unknown) (unknown) (no (unknown) (unknown) Anxiety (units (unkno wn) date) unknown) (unknown) (no (unknown) (unknown) Asthma (units (unkno wn) date) unknown) (unknown) (no (unknown) (unknown) Attending Dr: (units ( unknown) date) Wes SCOTT unknown) (unknown) (no (unknown) (unknown) BMI 19.8 (units (unkno wn) date) unknown) (unknown) (no (unknown) (unknown) BP 98/58 L (units (unk nown) date) unknown) (unknown) (no (unknown) (unknown) Blood Pressure (units (unknown) date) Location Lt unknown) brachial (unknown) (no (unknown) (unknown) Confirmed (units (unkn own) date) 04/09/22] unknown) (unknown) (no (unknown) (unknown) : 1985 (units (unknown) date) Acct:[id number] unknown) (unknown) (no (unknown) (unknown) Depression (units (unk nown) date) unknown) (unknown) (no (unknown) (unknown) Dept at (units (unkno wn) date) . unknown) (unknown) (no (unknown) (unknown) Details: (units (unkno wn) date) unknown) (unknown) (no (unknown) (unknown) Documented By: (units (unknown) date) Wes Herrera unknown) 04/09/22 1637 (unknown) (no (unknown) (unknown) Draft (units (unkno wn) date) unknown) (unknown) (no (unknown) (unknown) Family Practice (units (unknown) date) Office Visit unknown) (unknown) (no (unknown) (unknown) [facility] ([facility] unknown) (unknown) (no (unknown) (unknown) [place] (units (unkno wn) date) unknown) (unknown) (no (unknown) (unknown) Gastrointestinal (units (unknown) date) Upset unknown) (unknown) (no (unknown) (unknown) H/O exploratory (units (unknown) date) laparotomy unknown) (unknown) (no (unknown) (unknown) H/O left knee (units ( unknown) date) surgery unknown) (unknown) (no (unknown) (unknown) HFA) 2 puff (units (un known) date) inhalation BID #12 unknown) grams 03/13/22 [Rx Confirmed 04/09/22] (unknown) (no (unknown) (unknown) HPI (units (unkno wn) date) unknown) (unknown) (no (unknown) (unknown) Health Management (units (unknown) date) reviewed with unknown) patient: No (unknown) (no (unknown) (unknown) Health Management (units (unknown) date) unknown) (unknown) (no (unknown) (unknown) Height 160.02 cm (units (unknown) date) unknown) (unknown) (no (unknown) (unknown) History of open (units (unknown) date) heart surgery unknown) (unknown) (no (unknown) (unknown) History of surgery (units (unknown) date) unknown) (unknown) (no (unknown) (unknown) Intake Note: (units (u nknown) date) unknown) (unknown) (no (unknown) (unknown) Intake performed (units (unknown) date) by: Татьяна Llanes unknown) (unknown) (no (unknown) (unknown) Intake (units (unkno wn) date) unknown) (unknown) (no (unknown) (unknown) Intake- Clincial (units (unknown) date) Staff unknown) (unknown) (no (unknown) (unknown) Irritation/redness (units (unknown) date) unknown) (unknown) (no (unknown) (unknown) Kidney infection (units (unknown) date) unknown) (unknown) (no (unknown) (unknown) Last Menstural (units (unknown) date) Cycle + Details unknown) (unknown) (no (unknown) (unknown) Loc: [facility] (units (unkno wn) date) unknown) (unknown) (no (unknown) (unknown) [id number] (units (unk nown) date) unknown) (unknown) (no (unknown) (unknown) Medical History (units (unknown) date) (Reviewed 03/31/22 unknown) @ 11:58 by TYLER Mckeon) (unknown) (no (unknown) (unknown) Medications (units (un known) date) unknown) (unknown) (no (unknown) (unknown) Mild persistent (units (unknown) date) asthma unknown) (unknown) (no (unknown) (unknown) Other Menstrual (units (unknown) date) Period: Other unknown) (unknown) (no (unknown) (unknown) PFSH (units (unkno wn) date) unknown) (unknown) (no (unknown) (unknown) Patient: (units (unkno wn) date) Carmina Castillo A unknown) MR#: (unknown) (no (unknown) (unknown) Penicillins (units (un known) date) Allergy unknown) (Intermediate, Verified 04/09/22 16:38) (unknown) (no (unknown) (unknown) Pertussis Vaccines (units (unknown) date) [PERTUSSIS unknown) VACCINES] Allergy (Unknown, Verified 04/09/22 (unknown) (no (unknown) (unknown) Position Sitting (units (unknown) date) unknown) (unknown) (no (unknown) (unknown) Rash (units (unkno wn) date) unknown) (unknown) (no (unknown) (unknown) Rash, throat was (units (unknown) date) tingly unknown) (unknown) (no (unknown) (unknown) Reason For Visit (units (unknown) date) unknown) (unknown) (no (unknown) (unknown) Respiration 16 (units (unknown) date) unknown) (unknown) (no (unknown) (unknown) S/P laparoscopic (units (unknown) date) supracervical unknown) hysterectomy (04/04/18) (unknown) (no (unknown) (unknown) Seizure (units (unkno wn) date) unknown) (unknown) (no (unknown) (unknown) Signed By: (units (unk nown) date) unknown) (unknown) (no (unknown) (unknown) Smoking Status: (units (unknown) date) Former smoker unknown) (unknown) (no (unknown) (unknown) Social History (units (unknown) date) unknown) (unknown) (no (unknown) (unknown) Stomach pain, (units ( unknown) date) nausea, headache unknown) (unknown) (no (unknown) (unknown) Surgical History (units (unknown) date) (Reviewed 03/31/22 unknown) @ 11:58 by TYLER Mckeon) (unknown) (no (unknown) (unknown) This note may have (units (unknown) date) been all or unknown) partially generated using voice recognition (unknown) (no (unknown) (unknown) Tobacco + (units (unkn own) date) Substance Use unknown) (unknown) (no (unknown) (unknown) Tobacco Status (units (unknown) date) unknown) (unknown) (no (unknown) (unknown) Visit Reasons: (units (unknown) date) acupuncture 02 unknown) (unknown) (no (unknown) (unknown) Vitals (units (unkno wn) date) unknown) (unknown) (no (unknown) (unknown) Weight 50.859 kg (units (unknown) date) unknown) (unknown) (no (unknown) (unknown) albuterol sulfate (units (unknown) date) 90 mcg/actuation unknown) aerosol inhaler (ProAir HFA) 1 puff (unknown) (no (unknown) (unknown) amoxicillin (units (un known) date) Allergy unknown) (Intermediate, Verified 04/09/22 16:38) (unknown) (no (unknown) (unknown) azithromycin (units (u nknown) date) Allergy unknown) (Intermediate, Verified 04/09/22 16:38) (unknown) (no (unknown) (unknown) ciprofloxacin (units ( unknown) date) Allergy unknown) (Intermediate, Verified 04/09/22 16:38) (unknown) (no (unknown) (unknown) fluticasone (units (un known) date) propionate 230 unknown) mcg-salmeterol 21 mcg/actuation HFA inhaler (Advair (unknown) (no (unknown) (unknown) gluten Adverse (units (unknown) date) Reaction (Mild, unknown) Verified 04/09/22 16:38) (unknown) (no (unknown) (unknown) have occurred. If (units (unknown) date) there are any unknown) questions, please contact the Medical Records (unknown) (no (unknown) (unknown) household members: (units (unknown) date) spouse and children unknown) (unknown) (no (unknown) (unknown) hydromorphone (units ( unknown) date) Allergy (Mild, unknown) Verified 04/09/22 16:38) (unknown) (no (unknown) (unknown) ibuprofen Allergy (units (unknown) date) (Mild, Verified unknown) 04/09/22 16:38) (unknown) (no (unknown) (unknown) inhalation Q6H PRN (units (unknown) date) Adequate unknown) Ventilation #8.5 grams 03/08/22 [Rx Confirmed (unknown) (no (unknown) (unknown) may occur. (units (unk nown) date) Occasional unknown) wrong-word or 'sound-alike' substitutions may have (unknown) (no (unknown) (unknown) methocarbamol 750 (units (unknown) date) mg tablet 750 mg PO unknown) QID PRN muscle spasm #30 tabs 03/26/22 [Rx (unknown) (no (unknown) (unknown) nickel Adverse (units (unknown) date) Reaction (Mild, unknown) Verified 04/09/22 16:38) (unknown) (no (unknown) (unknown) occurred due to (units (unknown) date) the inherent unknown) limitations of voice recognition software. Please (unknown) (no (unknown) (unknown) omeprazole 20 mg (units (unknown) date) capsule,delayed unknown) release 20 mg PO BID #60 caps 03/26/22 [Rx (unknown) (no (unknown) (unknown) ondansetron 4 mg (units (unknown) date) disintegrating unknown) tablet 4 mg PO QID PRN nausea and vomiting #14 (unknown) (no (unknown) (unknown) read the note (units ( unknown) date) carefully and unknown) recognize, using context, where these substitutions (unknown) (no (unknown) (unknown) software. Although (units (unknown) date) every effort is unknown) made to edit content, milling machine operator gear errors (unknown) (no (unknown) (unknown) sumatriptan (units (unk nown) date) succinate 50 mg unknown) tablet (Imitrex) See Rx Instructions PO .COMPLEX #10 (unknown) (no (unknown) (unknown) tabs 03/26/22 [Rx (units (unknown) date) Confirmed 04/09/22] unknown) (unknown) (no (unknown) (unknown) tabs 04/05/18 [Rx (units (unknown) date) Confirmed 04/09/22] unknown) Result panel 626 (unknown) (no (unknown) (unknown) (no value) (units (unk nown) date) unknown) (unknown) (no (unknown) (unknown) (1) Migraine: (units ( unknown) date) unknown) (unknown) (no (unknown) (unknown) (2) Neck pain, (units (unknown) date) chronic: unknown) (unknown) (no (unknown) (unknown) (3) Atypical chest (units (unknown) date) pain: unknown) (unknown) (no (unknown) (unknown) (4) Bilateral (units ( unknown) date) breast lump: unknown) (unknown) (no (unknown) (unknown) 04/09/22 (units (unkno wn) date) unknown) (unknown) (no (unknown) (unknown) 04/09/22] (units (unkn own) date) unknown) (unknown) (no (unknown) (unknown) 04/15/22 0909 (units ( unknown) date) unknown) (unknown) (no (unknown) (unknown) 16:38) (units (unkno wn) date) unknown) (unknown) (no (unknown) (unknown) 16:39 (units (unkno wn) date) unknown) (unknown) (no (unknown) (unknown) 36-year-old female (units (unknown) date) presents for unknown) initial acupuncture treatment. She is (unknown) (no (unknown) (unknown) Accompanied by: (units (unknown) date) Daughter unknown) (unknown) (no (unknown) (unknown) Acupuncture (units (un known) date) unknown) (unknown) (no (unknown) (unknown) Affect: normal (units (unknown) date) affect unknown) (unknown) (no (unknown) (unknown) Age/Sex: 36 / F (units (unknown) date) Date of Service: unknown) (unknown) (no (unknown) (unknown) All systems (units (un known) date) reviewed + are unknown) unremarkable except as noted in HPI and below (unknown) (no (unknown) (unknown) Allergies (units (unkn own) date) unknown) (unknown) (no (unknown) (unknown) [place], [place] (units ( unknown) date) [id number] unknown) (unknown) (no (unknown) (unknown) Anxiety (units (unkno wn) date) unknown) (unknown) (no (unknown) (unknown) Appearance: (units (un known) date) grossly normal unknown) (unknown) (no (unknown) (unknown) Assessment + Plan (units (unknown) date) unknown) (unknown) (no (unknown) (unknown) Asthma (units (unkno wn) date) unknown) (unknown) (no (unknown) (unknown) Attending Dr: (units ( unknown) date) Wes SCOTT unknown) (unknown) (no (unknown) (unknown) Attitude: (units (unkn own) date) cooperative unknown) (unknown) (no (unknown) (unknown) BMI 19.8 (units (unkno wn) date) unknown) (unknown) (no (unknown) (unknown) BP 98/58 L (units (unk nown) date) unknown) (unknown) (no (unknown) (unknown) Bilateral breast (units (unknown) date) masses: We reviewed unknown) benign imaging results with recommendation (unknown) (no (unknown) (unknown) Blood Pressure (units (unknown) date) Location Lt unknown) brachial (unknown) (no (unknown) (unknown) Cardio (units (unkno wn) date) unknown) (unknown) (no (unknown) (unknown) Chief Complaint (units (unknown) date) unknown) (unknown) (no (unknown) (unknown) Chief Complaint: (units (unknown) date) Initial unknown) acupuncture/follow- up breast imaging (unknown) (no (unknown) (unknown) Cognition: normal (units (unknown) date) cognition unknown) (unknown) (no (unknown) (unknown) Confirmed (units (unkn own) date) 04/09/22] unknown) (unknown) (no (unknown) (unknown) Const (units (unkno wn) date) unknown) (unknown) (no (unknown) (unknown) : 1985 (units (unknown) date) Acct:[id number] unknown) (unknown) (no (unknown) (unknown) Depression (units (unk nown) date) unknown) (unknown) (no (unknown) (unknown) Dept at (units (unkno wn) date) . unknown) (unknown) (no (unknown) (unknown) Details: (units (unkno wn) date) unknown) (unknown) (no (unknown) (unknown) Documented By: (units (unknown) date) Wes Herrera unknown) 04/09/22 1637 (unknown) (no (unknown) (unknown) Effort + (units (unkno wn) date) Inspection: normal unknown) respiratory effort (unknown) (no (unknown) (unknown) Exam (units (unkno wn) date) unknown) (unknown) (no (unknown) (unknown) Eyes (units (unkno wn) date) unknown) (unknown) (no (unknown) (unknown) Family Practice (units (unknown) date) Office Visit unknown) (unknown) (no (unknown) (unknown) [facility] (units ([facility] date[facility] unknown) (unknown) (no (unknown) (unknown) [place] (units (unkno wn) date) unknown) (unknown) (no (unknown) (unknown) GV14, GV16, (units (un known) date) bilateral GB20, unknown) BL10, SI9, SI10, SI11, SI13, SI14, SI15, SI16 and (unknown) (no (unknown) (unknown) Gait: normal gait (units (unknown) date) unknown) (unknown) (no (unknown) (unknown) Gastrointestinal (units (unknown) date) Upset unknown) (unknown) (no (unknown) (unknown) General: (units (unkno wn) date) appearance normal, unknown) both eyes and all related structures (unknown) (no (unknown) (unknown) General: (units (unkno wn) date) cooperative and no unknown) acute distress (unknown) (no (unknown) (unknown) General: no rashes (units (unknown) date) or lesions noted unknown) (unknown) (no (unknown) (unknown) General: patient (units (unknown) date) alert, patient unknown) awake and patient oriented x3 (unknown) (no (unknown) (unknown) H/O exploratory (units (unknown) date) laparotomy unknown) (unknown) (no (unknown) (unknown) H/O left knee (units ( unknown) date) surgery unknown) (unknown) (no (unknown) (unknown) HENMT (units (unkno wn) date) unknown) (unknown) (no (unknown) (unknown) HFA) 2 puff (units (un known) date) inhalation BID #12 unknown) grams 03/13/22 [Rx Confirmed 04/09/22] (unknown) (no (unknown) (unknown) HPI (units (unkno wn) date) unknown) (unknown) (no (unknown) (unknown) Head: normal to (units (unknown) date) inspection unknown) (unknown) (no (unknown) (unknown) Health Management (units (unknown) date) reviewed with unknown) patient: No (unknown) (no (unknown) (unknown) Health Management (units (unknown) date) unknown) (unknown) (no (unknown) (unknown) Height 160.02 cm (units (unknown) date) unknown) (unknown) (no (unknown) (unknown) History of open (units (unknown) date) heart surgery unknown) (unknown) (no (unknown) (unknown) History of surgery (units (unknown) date) unknown) (unknown) (no (unknown) (unknown) Intake Note: (units (u nknown) date) unknown) (unknown) (no (unknown) (unknown) Intake performed (units (unknown) date) by: Татьяна Llanes unknown) (unknown) (no (unknown) (unknown) Intake (units (unkno wn) date) unknown) (unknown) (no (unknown) (unknown) Intake- Clincial (units (unknown) date) Staff unknown) (unknown) (no (unknown) (unknown) Intractability: (units (unknown) date) not intractable unknown) Migraine type: without aura Status (unknown) (no (unknown) (unknown) Irritation/redness (units (unknown) date) unknown) (unknown) (no (unknown) (unknown) Kidney infection (units (unknown) date) unknown) (unknown) (no (unknown) (unknown) Last Menstural (units (unknown) date) Cycle + Details unknown) (unknown) (no (unknown) (unknown) Loc: [facility] (units (unkno wn) date) unknown) (unknown) (no (unknown) (unknown) [id number] (units (unk nown) date) unknown) (unknown) (no (unknown) (unknown) Medical History (units (unknown) date) (Reviewed 04/15/22 unknown) @ 09:01 by TYLER Mckeon) (unknown) (no (unknown) (unknown) Medications (units (un known) date) unknown) (unknown) (no (unknown) (unknown) Mental Status: (units (unknown) date) mental status unknown) grossly normal (unknown) (no (unknown) (unknown) Migraine without (units (unknown) date) aura, not unknown) intractable, without status migrainosus (unknown) (no (unknown) (unknown) Migraines/neck (units (unknown) date) pain/atypical chest unknown) pain: Record reviewed, pt interviewed and (unknown) (no (unknown) (unknown) Mild persistent (units (unknown) date) asthma unknown) (unknown) (no (unknown) (unknown) Mood: congruent (units (unknown) date) mood unknown) (unknown) (no (unknown) (unknown) Neuro (units (unkno wn) date) unknown) (unknown) (no (unknown) (unknown) Other Menstrual (units (unknown) date) Period: Other unknown) (unknown) (no (unknown) (unknown) PFSH (units (unkno wn) date) unknown) (unknown) (no (unknown) (unknown) Patient: (units (unkno wn) date) Carmina Castillo Kenneth unknown) MR#: (unknown) (no (unknown) (unknown) Penicillins (units (un known) date) Allergy unknown) (Intermediate, Verified 04/09/22 16:38) (unknown) (no (unknown) (unknown) Pertussis Vaccines (units (unknown) date) [PERTUSSIS unknown) VACCINES] Allergy (Unknown, Verified 04/09/22 (unknown) (no (unknown) (unknown) Plan (units (unkno wn) date) unknown) (unknown) (no (unknown) (unknown) Position Sitting (units (unknown) date) unknown) (unknown) (no (unknown) (unknown) Psych (units (unkno wn) date) unknown) (unknown) (no (unknown) (unknown) Pt tolerated well (units (unknown) date) with no unknown) complications. In particular, no signs of needle (unknown) (no (unknown) (unknown) Qualifiers: (units (un known) date) unknown) (unknown) (no (unknown) (unknown) ROS (units (unkno wn) date) unknown) (unknown) (no (unknown) (unknown) Rash (units (unkno wn) date) unknown) (unknown) (no (unknown) (unknown) Rash, throat was (units (unknown) date) tingly unknown) (unknown) (no (unknown) (unknown) Rate: regular rate (units (unknown) date) unknown) (unknown) (no (unknown) (unknown) Reason For Visit (units (unknown) date) unknown) (unknown) (no (unknown) (unknown) Resp (units (unkno wn) date) unknown) (unknown) (no (unknown) (unknown) Respiration 16 (units (unknown) date) unknown) (unknown) (no (unknown) (unknown) S/P laparoscopic (units (unknown) date) supracervical unknown) hysterectomy (04/04/18) (unknown) (no (unknown) (unknown) SY/TY versus CT (units (unknown) date) pens. If she would unknown) like to focus on a different area and/or (unknown) (no (unknown) (unknown) Seizure (units (unkno wn) date) unknown) (unknown) (no (unknown) (unknown) Signed By: (units (unk nown) date) <Electronically unknown) signed by Wes Herrera> (unknown) (no (unknown) (unknown) Signed (units (unkno wn) date) unknown) (unknown) (no (unknown) (unknown) Skin (units (unkno wn) date) unknown) (unknown) (no (unknown) (unknown) Smoking Status: (units (unknown) date) Former smoker unknown) (unknown) (no (unknown) (unknown) Social History (units (unknown) date) unknown) (unknown) (no (unknown) (unknown) Speech: speech (units (unknown) date) normal unknown) (unknown) (no (unknown) (unknown) Status: Inactive (units (unknown) date) unknown) (unknown) (no (unknown) (unknown) Stomach pain, (units ( unknown) date) nausea, headache unknown) (unknown) (no (unknown) (unknown) Surgical History (units (unknown) date) (Reviewed 04/15/22 unknown) @ 09:01 by TYLER Mckeon) (unknown) (no (unknown) (unknown) This note may have (units (unknown) date) been all or unknown) partially generated using voice recognition (unknown) (no (unknown) (unknown) Thought Content: (units (unknown) date) normal unknown) (unknown) (no (unknown) (unknown) Thought Process: (units (unknown) date) normal unknown) (unknown) (no (unknown) (unknown) Tobacco + (units (unkn own) date) Substance Use unknown) (unknown) (no (unknown) (unknown) Tobacco Status (units (unknown) date) unknown) (unknown) (no (unknown) (unknown) Visit Reasons: (units (unknown) date) acupuncture 02 unknown) (unknown) (no (unknown) (unknown) Vitals (units (unkno wn) date) unknown) (unknown) (no (unknown) (unknown) We discussed the (units (unknown) date) practice of unknown) acupuncture and associated scientific principles, (unknown) (no (unknown) (unknown) Weight 50.859 kg (units (unknown) date) unknown) (unknown) (no (unknown) (unknown) albuterol sulfate (units (unknown) date) 90 mcg/actuation unknown) aerosol inhaler (ProAir HFA) 1 puff (unknown) (no (unknown) (unknown) amoxicillin (units (un known) date) Allergy unknown) (Intermediate, Verified 04/09/22 16:38) (unknown) (no (unknown) (unknown) as needed for any (units (unknown) date) changes she notes. unknown) (unknown) (no (unknown) (unknown) as well as an (units ( unknown) date) in-depth discussion unknown) of anticipated plan of care in regards to (unknown) (no (unknown) (unknown) azithromycin (units (u nknown) date) Allergy unknown) (Intermediate, Verified 04/09/22 16:38) (unknown) (no (unknown) (unknown) back points. She (units (unknown) date) feels that her unknown) atypical chest pain may be related to issues (unknown) (no (unknown) (unknown) ciprofloxacin (units ( unknown) date) Allergy unknown) (Intermediate, Verified 04/09/22 16:38) (unknown) (no (unknown) (unknown) consider same or (units (unknown) date) similar treatment unknown) with or without global energetic treatment on (unknown) (no (unknown) (unknown) consider supine (units (unknown) date) approach, consider unknown) local chest wall points and/or TMJ local (unknown) (no (unknown) (unknown) determined to be (units (unknown) date) an appropriate unknown) acupuncture candidate. Verified has no co (unknown) (no (unknown) (unknown) experiencing pain (units (unknown) date) and problems in a unknown) number of areas, including atypical chest (unknown) (no (unknown) (unknown) fluticasone (units (un known) date) propionate 230 unknown) mcg-salmeterol 21 mcg/actuation HFA inhaler (Advair (unknown) (no (unknown) (unknown) gluten Adverse (units (unknown) date) Reaction (Mild, unknown) Verified 04/09/22 16:38) (unknown) (no (unknown) (unknown) have occurred. If (units (unknown) date) there are any unknown) questions, please contact the Medical Records (unknown) (no (unknown) (unknown) her recently to (units (unknown) date) evaluate these unknown) issues. We discussed options for treatments and (unknown) (no (unknown) (unknown) household members: (units (unknown) date) spouse and children unknown) (unknown) (no (unknown) (unknown) hydromorphone (units ( unknown) date) Allergy (Mild, unknown) Verified 04/09/22 16:38) (unknown) (no (unknown) (unknown) ibuprofen Allergy (units (unknown) date) (Mild, Verified unknown) 04/09/22 16:38) (unknown) (no (unknown) (unknown) inhalation Q6H PRN (units (unknown) date) Adequate unknown) Ventilation #8.5 grams 03/08/22 [Rx Confirmed (unknown) (no (unknown) (unknown) may occur. (units (unk nown) date) Occasional unknown) wrong-word or 'sound-alike' substitutions may have (unknown) (no (unknown) (unknown) methocarbamol 750 (units (unknown) date) mg tablet 750 mg PO unknown) QID PRN muscle spasm #30 tabs 03/26/22 [Rx (unknown) (no (unknown) (unknown) migrainosus (units (un known) date) presence: without unknown) status migrainosus Qualified Code(s): G43.009 (unknown) (no (unknown) (unknown) nickel Adverse (units (unknown) date) Reaction (Mild, unknown) Verified 04/09/22 16:38) (unknown) (no (unknown) (unknown) ntraindications. (units (unknown) date) Proper counseling unknown) and consent completed prior to procedure. (unknown) (no (unknown) (unknown) occurred due to (units (unknown) date) the inherent unknown) limitations of voice recognition software. Please (unknown) (no (unknown) (unknown) omeprazole 20 mg (units (unknown) date) capsule,delayed unknown) release 20 mg PO BID #60 caps 03/26/22 [Rx (unknown) (no (unknown) (unknown) ondansetron 4 mg (units (unknown) date) disintegrating unknown) tablet 4 mg PO QID PRN nausea and vomiting #14 (unknown) (no (unknown) (unknown) pain, headaches, (units (unknown) date) left TMJ pain and unknown) neck pain left greater than right. We saw (unknown) (no (unknown) (unknown) points along inner (units (unknown) date) bladder line of the unknown) upper thoracic region in neutral (unknown) (no (unknown) (unknown) points with or (units (unknown) date) without global unknown) energetic treatment. (unknown) (no (unknown) (unknown) read the note (units ( unknown) date) carefully and unknown) recognize, using context, where these substitutions (unknown) (no (unknown) (unknown) shock. EBL: 0 mL. (units (unknown) date) Provided discharge unknown) instructions. Pt ambulated from clinic (unknown) (no (unknown) (unknown) software. 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 (unknown) (no (unknown) (unknown) sumatriptan (units (unk nown) date) succinate 50 mg unknown) tablet (Imitrex) See Rx Instructions PO .COMPLEX #10 (unknown) (no (unknown) (unknown) tabs 03/26/22 [Rx (units (unknown) date) Confirmed 04/09/22] unknown) (unknown) (no (unknown) (unknown) tabs 04/05/18 [Rx (units (unknown) date) Confirmed 04/09/22] unknown) (unknown) (no (unknown) (unknown) technique x 25 (units (unknown) date) minutes. unknown) (unknown) (no (unknown) (unknown) to start annual (units (unknown) date) routine unknown) mammographic screening at age 39. Advise she follow-up (unknown) (no (unknown) (unknown) today she would (units (unknown) date) like to start with unknown) a prone approach incorporating neck and upper (unknown) (no (unknown) (unknown) with her neck and (units (unknown) date) upper back. unknown) (unknown) (no (unknown) (unknown) without (units (unkno wn) date) difficulty. F/U 1-2 unknown) weeks. Depending on response to today's treatment, Social History date description facility 2022-03-05 00:00 Ex-smoker (finding) [facility] 2022-03-08 00:00 Ex-smoker (finding) [facility] 2022-03-13 00:00 Ex-smoker (finding) [facility] 2022-03-24 00:00 Ex-smoker (finding) [facility] 2022-03-26 00:00 Ex-smoker (finding) [facility] 2022-04-09 00:00 Ex-smoker (finding) [facility] Vital Signs date measurement value units 2022-03-05 00:00 BMI 17.3 kg/m2 2022-03-05 00:00 BP_diastolic 63 mmHg 2022-03-05 00:00 BP_systolic 124 mmHg 2022-03-05 00:00 heart_rate 64 /min 2022-03-05 00:00 height_metric 160.02 cm 2022-03-05 00:00 height_standard 63 in 2022-03-05 00:00 o2_saturation 98 % 2022-03-05 00:00 respiration_rate 16 /min 2022-03-05 00:00 temperature_metric 36.11 C 2022-03-05 00:00 temperature_standard 97 F 2022-03-05 00:00 weight_metric 44.45 kg 2022-03-05 00:00 weight_standard 98 lb 2022-03-08 00:00 BMI 18.4 kg/m2 2022-03-08 00:00 BP_diastolic 62 mmHg 2022-03-08 00:00 BP_systolic 120 mmHg 2022-03-08 00:00 heart_rate 77 /min 2022-03-08 00:00 height_metric 160.02 cm 2022-03-08 00:00 height_standard 63 in 2022-03-08 00:00 o2_saturation 98 % 2022-03-08 00:00 respiration_rate 14 /min 2022-03-08 00:00 temperature_metric 37.06 C 2022-03-08 00:00 temperature_standard 98.7 F 2022-03-08 00:00 weight_metric 47.28 kg 2022-03-08 00:00 weight_standard 104.23 lb 2022-03-13 00:00 BMI 18.3 kg/m2 2022-03-13 00:00 BP_diastolic 70 mmHg 2022-03-13 00:00 BP_systolic 118 mmHg 2022-03-13 00:00 heart_rate 68 /min 2022-03-13 00:00 height_metric 160.02 cm 2022-03-13 00:00 height_standard 63 in 2022-03-13 00:00 o2_saturation 98 % 2022-03-13 00:00 temperature_metric 36.72 C 2022-03-13 00:00 temperature_standard 98.1 F 2022-03-13 00:00 weight_metric 46.89 kg 2022-03-13 00:00 weight_standard 103.37 lb 2022-03-24 00:00 BMI 16.9 kg/m2 2022-03-24 00:00 BP_diastolic 56 mmHg 2022-03-24 00:00 BP_systolic 111 mmHg 2022-03-24 00:00 heart_rate 68 /min 2022-03-24 00:00 height_metric 160.02 cm 2022-03-24 00:00 height_standard 63 in 2022-03-24 00:00 o2_saturation 98 % 2022-03-24 00:00 respiration_rate 14 /min 2022-03-24 00:00 temperature_metric 36.22 C 2022-03-24 00:00 temperature_standard 97.2 F 2022-03-24 00:00 weight_metric 43.54 kg 2022-03-24 00:00 weight_standard 95.99 lb 2022-03-26 00:00 BMI 18.5 kg/m2 2022-03-26 00:00 BP_diastolic 57 mmHg 2022-03-26 00:00 BP_systolic 97 mmHg 2022-03-26 00:00 heart_rate 57 /min 2022-03-26 00:00 height_metric 160.02 cm 2022-03-26 00:00 height_standard 63 in 2022-03-26 00:00 o2_saturation 99 % 2022-03-26 00:00 respiration_rate 16 /min 2022-03-26 00:00 weight_metric 47.4 kg 2022-03-26 00:00 weight_standard 104.5 lb 2022-04-09 00:00 BMI 19.8 kg/m2 2022-04-09 00:00 BP_diastolic 58 mmHg 2022-04-09 00:00 BP_systolic 98 mmHg 2022-04-09 00:00 height_metric 160.02 cm 2022-04-09 00:00 height_standard 63 in 2022-04-09 00:00 respiration_rate 16 /min 2022-04-09 00:00 weight_metric 50.85 kg 2022-04-09 00:00 weight_standard 112.11 lb
== END 2022-05-23 12:46 | disposition home or self-care (01) ==
LOC: ED 11:50
DX: H00.031 Abscess of right upper eyelid (principal)
CPT/HCPCS: 99282; 99283

== ENCOUNTER 2022-05-26 10:43 | Emergency (ER) | payer MEDICAID ==
--- OUTSIDE RECORDS SUMMARY | 2022-05-26 11:30 | EXTERNAL MEDICAL SUMMARY RPT | Continuity of Care Document ---
:1985 Author Organization [facility] Address [address] [place] [address] Phone Care Team Providers Name Role Phone Daniel Ghosh Unavailable Unavailable Allergies and Intolerances date description facility type (no date) [facility] (unknown) (no date) Penicillins [facility] (unknown) (no date) Pertussis Vaccines [facility] (unknown) (no date) amoxicillin [facility] (unknown) (no date) azithromycin [facility] (unknown) (no date) ciprofloxacin [facility] (unknown) (no date) gluten [facility] (unknown) (no date) hydromorphone [facility] (unknown) (no date) ibuprofen [facility] (unknown) (no date) nickel [facility] (unknown) Encounters No information. Functional Status No information. Immunizations No information. Medications date description facility 2022-03-13 00:00 Fluticasone Propion-Salmeterol [facility] 2022-03-26 00:00 Methocarbamol [facility] 2022-03-26 00:00 Omeprazole [facility] 2022-03-08 00:00 Albuterol Sulfate [facility] 2022-03-26 00:00 Sumatriptan Succinate [facility] 2022-03-05 00:00 Hydrocodone-Acetaminophen [facility] Problems date description facility 2022-03-05 00:00 Lung nodule [facility] 2022-03-18 00:00 Depression [facility] 2022-03-18 00:00 Anxiety [facility] 2022-03-18 00:00 Mild persistent asthma [facility] 2022-03-24 00:00 Migraine headache [facility] 2022-03-25 00:00 Migraine headache [facility] 2022-04-02 12:05 Unspecified lump in the right breast, [facility] unspecified quadrant 2022-04-02 12:05 Unspecified lump in the left breast, [facility] unspecified quadrant 2022-04-02 12:05 Abnormal findings on diagnostic imaging of [facility] other specified b 2022-04-02 15:28 Unspecified lump in the right breast, [facility] unspecified quadrant 2022-04-02 15:28 Unspecified lump in the left breast, [facility] unspecified quadrant 2022-04-02 15:28 Abnormal findings on diagnostic imaging of [facility] other specified b Procedures date description facility 2022-03-24 00:00 Computed tomography of head or brain wi [facility] contrast 2022-03-05 00:00 X-ray of chest, single view [facility] 2022-03-24 00:00 X-ray of chest, single view [facility] 2022-04-02 00:00 Diagnostic mammography of both breasts [facility] 2022-04-02 00:00 US breast left [facility] 2022-04-02 00:00 US breast right [facility] Results/Labs test date [...] Result panel 437 (unknown) (no date) ([facility]) Result panel 438 (unknown) (no date) [...] Result panel 552 (unknown) (no date) (unknown[facility]) Result panel 553 (unknown) (no date) (unknown[facility]) Result panel 554 (unknown) (no date) (unknown[facility]) Result panel 555 (unknown) (no date) (unknown[facility]) Result panel 556 (unknown) (no date) (unknown[facility]) Result panel 557 (unknown) (no date) (unknown[facility]) Result panel 558 (unknown) (no date) (unknown[facility]) Result panel 559 (unknown) (no date) (unknown[facility]) Result panel 560 (unknown) (no date) (unknown[facility]) Result panel 561 (unknown) (no date) (unknown[facility]) Result panel 562 (unknown) (no date) (unknown) [facility]) Result panel 563 (unknown) (no date) (unknown[facility]) Result panel 564 (unknown) (no date) (unknown[facility]) Result panel 565 (unknown) (no date) (unknown[facility]) Result panel 566 (unknown) (no date) (unknown[facility]) Result panel 567 (unknown) (no date) (unknown[facility]) Result panel 568 (unknown) (no date) (unknown[facility]) Result panel 569 (unknown) (no date) (unknown[facility]) Result panel 570 (unknown) (no date) (unknown[facility]) Result panel 571 (unknown) (no date) (unknown[facility]) Result panel 572 (unknown) (no date) (unknown[facility]) Result panel 573 (unknown) (no date) (unknown[facility]) Result panel 574 (unknown) (no date) (unknown[facility]) Result panel 575 (unknown) (no date) (unknown[facility]) Result panel 576 (unknown) (no date) (unknown[facility]) Result panel 577 (unknown) (no date) (unknown[facility]) Result panel 578 (unknown) (no date) (unknown[facility]) Result panel 579 (unknown) (no date) (unknown[facility]) Result panel 580 (unknown) (no date) (unknown[facility]) Result panel 581 (unknown) (no date) (unknown[facility]) Result panel 582 (unknown) (no date) (unknown[facility]) Result panel 583 (unknown) (no date) (unknown[facility]) Result panel 584 (unknown) (no date) (unknown[facility]) Result panel 585 (unknown) (no date) (unknown[facility]) Result panel 586 (unknown) (no date) (unknown[facility]) Result panel 587 (unknown) (no date) (unknown[facility]) Result panel 588 (unknown) (no date) (unknown[facility]) Result panel 589 (unknown) (no date) (unknown[facility]) Result panel 590 (unknown) (no date) (unknown[facility]) Result panel 591 (unknown) (no date) (unknown[facility]) Result panel 592 (unknown) (no date) (unknown[facility]) Result panel 593 (unknown) (no date) (unknown[facility]) Result panel 594 (unknown) (no date) (unknown[facility]) Result panel 595 (unknown) (no date) (unknown[facility]) Result panel 596 (unknown) (no date) (unknown[facility]) Result panel 597 (unknown) (no date) (unknown[facility]) Result panel 598 (unknown) (no date) (unknown) [facility]) Result panel 599 (unknown) (no date) (unknown) [facility]) Result panel 600 (unknown) (no date) (unknown) [facility]) Result panel 601 (unknown) (no date) (unknown) [facility]) Result panel 602 (unknown) (no date) (unknown) [facility]) Result panel 603 (unknown) (no date) (unknown) [facility]) Result panel 604 (unknown) (no date) (unknown[facility]) Result panel 605 (unknown) (no date) (unknown) [facility]) Result panel 606 (unknown) (no date) (unknown[facility]) Result panel 607 (unknown) (no date) (unknown[facility]) Result panel 608 (unknown) (no date) (unknown[facility]) Result panel 609 (unknown) (no date) (unknown[facility]) Result panel 610 (unknown) (no date) (unknown) [facility]) Result panel 611 (unknown) (no date) (unknown[facility]) Result panel 612 (unknown) (no date) (unknown[facility]) Result panel 613 (unknown) (no date) (unknown[facility]) Result panel 614 (unknown) (no date) (unknown) [facility]) Result panel 615 (unknown) (no date) (unknown) [facility]) Result panel 616 (unknown) (no date) (unknown[facility]) Result panel 617 (unknown) (no date) (unknown) [facility]) Result panel 618 (unknown) (no date) (unknown) [facility]) Result panel 619 (unknown) (no date) (unknown) [facility]) Result panel 620 (unknown) (no date) (unknown) [facility]) Result panel 621 (unknown) (no date) (unknown[facility]) Result panel 622 (unknown) (no date) (unknown) [facility]) Result panel 623 (unknown) (no date) (unknown) [facility]) Result panel 624 (unknown) (no date) (unknown[facility]) Result panel 625 (unknown) (no date) (unknown[facility]) Result panel 626 (unknown) (no date) (unknown[facility]) Result panel 627 (unknown) (no date) (unknown) [facility]) Result panel 628 (unknown) (no date) (unknown) [facility]) Result panel 629 (unknown) (no date) (unknown) [facility]) Result panel 630 (unknown) (no date) (unknown[facility]) Result panel 631 (unknown) (no date) (unknown[facility]) Result panel 632 (unknown) (no date) (unknown) [facility]) Result panel 633 (unknown) (no date) (unknown[facility]) Result panel 634 (unknown) (no date) (unknown[facility]) Result panel 635 (unknown) (no date) (unknown) (unknown) (no value) (units (un known) unknown) (unknown) (no date) (unknown) (unknown) 03/05/22 (units (unkn own) unknown) (unknown) (no date) (unknown) (unknown) [address]units ([address] nown) [address] unknown) (unknown) (no date) (unknown) (unknown) : [id number] (units ( unknown) unknown) (unknown) (no date) (unknown) (unknown) Accession (units (unk nown) Number: unknown) [id number] (unknown) (no date) (unknown) (unknown) Age/Sex: 36 / (units (unknown) F Date of unknown) Service: (unknown) (no date) (unknown) (unknown) CHIKIS Cintron (units (unknown) [address] unknown) (unknown) (no date) (unknown) (unknown) Approved by: (units ( unknown) [place] unknown) Joes Lennon on 03/05/2022 at 10:55 (unknown) (no date) (unknown) (unknown) Bones and (units (unk nown) chest wall: No unknown) suspicious bony lesions. Overlying soft tissues (unknown) (no date) (unknown) (unknown) COMPARISON[facility], , CHEST 2 VIEW, 12/16/2008, 21:11. (unknown) (no date) (unknown) (unknown) : (units (unkn own) 1985 unknown) Acct:[id number] (unknown) (no date) (unknown) (unknown) Dictated by: [...] (unknown) (unknown) Patient: (units (unkn own) David Shukla unknown) ie A MR# (unknown) (no date) [...] (unknown) unremarkable. (units (unknown) unknown) Result panel 636 (unknown) (no (unknown) (unknown) (no value) (units [...] (unknown) (unknown) Blood Pressure (units (unknown) date) 03/05/22 unknown) 10:20 (unknown) (no (unknown) (unknown) [...] (unknown) (unknown) : 1985 (units (unknown) date) Acct:[id number] unknown) (unknown) (no (unknown) (unknown) Date of [...] Botnick,Danita D.O. unknown) (unknown) (no (unknown) (unknown) Emergency [...] date) Signs: unknown) (unknown) (no (unknown) (unknown) [facility] (units (unknown) date) [address] [place] [address] unknown) [place] [address] (unknown) (no (unknown) (unknown) Lactate (Lactic (units (unknown) date) Acid) Stat unknown) (unknown) (no (unknown) (unknown) Lipase Stat (units (un known) date) unknown) (unknown) (no (unknown) (unknown) [id number] (units (unk nown) date) unknown) (unknown) (no [...] (unknown) Patient: (units (unkno wn) date) Carmina Shukla unknown) MR#: (unknown) (no (unknown) (unknown) Penicillins [...] unknown) date) unknown) (unknown) (no (unknown) (unknown) Collective Bargaining Specialist (units (unkno wn) date) (ranitidine)) unknown) (unknown) [...] (unknown) ranitidine HCl (units (unknown) date) [Acid Collective Bargaining Specialist unknown) (ranitidine)] 150 mg Tablet (unknown) (no [...] (units (unkno wn) date) unknown) Result panel 637 (unknown) (no (unknown) (unknown) (no value) (units (unk nown) date) unknown) (unknown) (no (unknown) (unknown) (single)CT at 3 (units (unknown) date) unknown) (unknown) (no (unknown) (unknown) 03/05/22 (units (unkno wn) date) unknown) (unknown) (no (unknown) (unknown) 1. No evidence of (units (unknown) date) acute process in unknown) the chest, abdomen, and pelvis. (unknown) (no (unknown) (unknown) [address] [place] [address] (units (unknown) date) unknown) (unknown) (no (unknown) (unknown) 2. Multiple (units (un known) date) pulmonary nodules, unknown) all 3 mm or less. Please see chart below for (unknown) (no (unknown) (unknown) 6 mm or larger (units (unknown) date) (ground glass)CT unknown) at 6-12 months to confirm persistence, then CT (unknown) (no (unknown) (unknown) : [id number] (units (u nknown) date) unknown) (unknown) (no (unknown) (unknown) ABDOMEN: (units (unkno wn) date) unknown) (unknown) (no (unknown) (unknown) Accession Number: (units (unknown) date) [id number] unknown) (unknown) (no (unknown) (unknown) After the (units (unkn own) date) administration of unknown) intravenous contrast, 5 mm thick sections acquired (unknown) (no (unknown) (unknown) Age/Sex: 36 / F (units (unknown) date) Date of Service: unknown) (unknown) (no (unknown) (unknown) [place], [place] (units ( unknown) date) [address] unknown) (unknown) (no (unknown) (unknown) Approved by: [...] (unknown) (unknown) : 1985 (units (unknown) date) Acct:[id number] unknown) (unknown) (no (unknown) (unknown) Dictated by: (units (u nknown) date) Errol Lennon unknownWilfred Garcia on 03/05/2022 at 12:54 (unknown) (no (unknown) [...] date) Excellent. unknown) (unknown) (no (unknown) (unknown) [facility] (units (unknown) date) unknown) (unknown) (no (unknown) [...] (unknown) Patient: (units (unkno wn) date) Carmina Shukla unknown) A MR# (unknown) (no (unknown) (unknown) [...] at 3-6 months to confirm Result panel 638 (unknown) (no (unknown) (unknown) (no value) (units [...] (unknown) (unknown) Blood Pressure (units (unknown) date) 03/05/22 unknown) 10:20 (unknown) (no (unknown) (unknown) [...] (unknown) (unknown) : 1985 (units (unknown) date) Acct:[id number] unknown) (unknown) (no (unknown) (unknown) Date of [...] date) Signs: unknown) (unknown) (no (unknown) (unknown) [facility] (units (unknown) date) [address] unknown) [place] [address] (unknown) (no (unknown) (unknown) Lactate (Lactic (units (unknown) date) Acid) Stat unknown) (unknown) (no (unknown) (unknown) Lipase Stat (units (un known) date) unknown) (unknown) (no (unknown) (unknown) [id number] (units (unk nown) date) unknown) (unknown) (no [...] (unknown) Patient: (units (unkno wn) date) Carmina Shukla unknown) MR#: (unknown) (no (unknown) (unknown) Penicillins [...] unknown) date) unknown) (unknown) (no (unknown) (unknown) Collective Bargaining Specialist (units (unkno wn) date) (ranitidine)) unknown) (unknown) [...] unknown) mg PO BID-TID PRN anxiety #10 02/05/19 (unknown) (no (unknown) (unknown) alprazolam [Xanax] (units [...] (unknown) ranitidine HCl (units (unknown) date) [Acid Collective Bargaining Specialist unknown) (ranitidine)] 150 mg Tablet (unknown) (no [...] (units (unkno wn) date) unknown) Result panel 639 (unknown) (no (unknown) (unknown) (no value) (units [...] (unknown) (unknown) : 1985 (units (unknown) date) Acct:[id number] unknown) (unknown) (no (unknown) (unknown) Date of [...] date) Signs: unknown) (unknown) (no (unknown) (unknown) [facility] (units (unknown) date) [address] unknown) [place] [address] (unknown) (no (unknown) (unknown) Lactate (Lactic (units (unknown) date) Acid) Stat unknown) (unknown) (no (unknown) (unknown) Left breast 12:00 (units (unknown) date) p.m. 1 cm painful unknown) lymph node like swelling non erythematous (unknown) (no (unknown) (unknown) Lipase Stat (units (un known) date) unknown) (unknown) (no (unknown) (unknown) [id number] (units (unk nown) date) unknown) (unknown) (no [...] (unknown) Patient: (units (unkno wn) date) Carmina Shukla unknown) MR#: (unknown) (no (unknown) (unknown) Penicillins [...] noted in HPI (unknown) (no (unknown) (unknown) Collective Bargaining Specialist (units (unkno wn) date) (ranitidine)) unknown) (unknown) [...] (unknown) ranitidine HCl (units (unknown) date) [Acid Collective Bargaining Specialist unknown) (ranitidine)] 150 mg Tablet (unknown) (no [...] (units (unkno wn) date) unknown) Result panel 640 (unknown) (no date) (unknown) (unknown) Flu A (units (unkn own) NEGATIVE unknown) (unknown) (no date) (unknown) (unknown) Flu B (units (unkn own) NEGATIVE unknown) (unknown) (no date) (unknown) (unknown) Negative (units (unkn own) unknown) (unknown) (no date) (unknown) (unknown) Negative (units (unkn own) unknown) Result panel 641 (unknown) (no date) (unknown) (unknown) 0.8 % [...] (unknown) 90.0 fl (unkn own) Result panel 642 (unknown) (no date) (unknown) (unknown) 1.0 (units unknown) (unknown) (unknown) (no date) (unknown) (unknown) 11.7 seconds (unkn own) (unknown) (no date) (unknown) (unknown) 28 seconds (unkn own) (unknown) (no date) (unknown) (unknown) 28 seconds (unkn own) Result panel 643 (unknown) (no date) (unknown) (unknown) > 60 [...] not ng/ml (unkn own) performed Result panel 644 (unknown) (no date) (unknown) (unknown) 0.9 mmol/l (unkn own) Result panel 645 (unknown) (no date) (unknown) (unknown) > 60 [...] not ng/ml (unkn own) performed Result panel 646 (unknown) (no date) (unknown) (unknown) 0.04 ng/ml (unkn own) (unknown) (no date) (unknown) (unknown) 0.04 ng/ml (unkn own) Result panel 647 (unknown) (no date) (unknown) (unknown) 0.894 uiu/ml (unkn own) Result panel 648 (unknown) (no (unknown) (unknown) (no value) (units [...] (unknown) (unknown) Accession Number: (units (unknown) date) [id number] ?? unknown) (unknown) (no (unknown) (unknown) Accession Number: (units (unknown) date) [id number] ?? unknown) (unknown) (no (unknown) (unknown) Acct:[id number] (units (unknown) date) unknown) (unknown) (no (unknown) [...] (unknown) (unknown) COMPARISON:? (units (u nknown) date) [facility], unknown) CR, CHEST 2 VIEW, 12/16/2008, 21:11. [...] Stat (unknown) (no (unknown) (unknown) Consult to [facility] - (units (unknown) date) Fixed Assets Accountant unknown) Stat (unknown) (no (unknown) (unknown) Course (units (unkno wn) date) unknown) (unknown) (no (unknown) (unknown) Covid-19 + FLU A/B (units (unknown) date) + RSV - PCR Stat unknown) (unknown) (no (unknown) (unknown) Creatinine (units (unk nown) date) (0.52-1.04) mg/dL unknown) (unknown) (no (unknown) (unknown) Creatinine 0.68 (units (unknown) date) (0.52-1.04) mg/dL unknown) (unknown) (no (unknown) (unknown) : 1985 (units (unknown) date) Acct:[id number] unknown) (unknown) (no (unknown) (unknown) : 1985 [...] Errol Lennon unknown) Jose on 03/05/2022 at 12:54 ? ? [...] (unknown) date) unknown) (unknown) (no (unknown) (unknown) [facility] (units (unknown) date) [address] unknown) [place] [address] (unknown) (no (unknown) (unknown) Kidneys (units (unkno [...] (unknown) Lymph # (Auto) (units (unknown) date) (1217-6282) /uL unknown) (unknown) (no (unknown) (unknown) Lymph # (Auto) (units (unknown) date) 1400 (6817-2303) unknown) /uL (unknown) (no (unknown) (unknown) Lymph % (Auto) (units (unknown) date) (25-40) % unknown) (unknown) (no (unknown) (unknown) Lymph % (Auto) (units (unknown) date) 20.6 L (25-40) % unknown) (unknown) (no (unknown) (unknown) [id number] (units (unk nown) date) unknown) (unknown) (no [...] date) unknown) (unknown) (no (unknown) (unknown) MR#: [id number] (units (unknown) date) unknown) (unknown) (no (unknown) [...] ventral hernias.? unknown) (unknown) (no (unknown) (unknown) [place] # (Auto) (units ( unknown) date) (0-900) /uL unknown) (unknown) (no (unknown) (unknown) [place] # (Auto) 500 (units (unknown) date) (0-900) /uL unknown) (unknown) (no (unknown) (unknown) [place] % (Auto) (units ( unknown) date) (3-14) % unknown) (unknown) (no (unknown) (unknown) [place] % (Auto) 8.0 (units (unknown) date) (3-14) % unknown) (unknown) (no (unknown) (unknown) Multiple (units (unkno wn) date) unknown) (unknown) (no (unknown) (unknown) NEUROLOGICAL: (units ( unknown) date) Alert and oriented unknown) x4.Normal gait and speech. (unknown) (no (unknown) (unknown) Neut # (Auto) (units ( unknown) date) (4707-3124) /uL unknown) (unknown) (no (unknown) (unknown) Neut # (Auto) 4500 (units (unknown) date) (1004-3764) /uL unknown) (unknown) (no (unknown) (unknown) Neut [...] (unknown) Patient: (units (unkno wn) date) Carmina Shukla unknown) MR#: (unknown) (no (unknown) (unknown) Patient: (units (unkno wn) date) Carmina Shukla unknown) (unknown) (no (unknown) (unknown) Penicillins (units [...] date) Impression: unknown) (unknown) (no (unknown) (unknown) Collective Bargaining Specialist (units (unkno wn) date) (ranitidine)) unknown) (unknown) [...] Sinus rhythm rate (units (unknown) date) 47 VT interval 130 unknown) QRS 96 QTC 364 [...] (unknown) ranitidine HCl (units (unknown) date) [Acid Collective Bargaining Specialist unknown) (ranitidine)] 150 mg Tablet (unknown) (no [...] at 3-6 months to confirm Result panel 649 (unknown) (no (unknown) (unknown) (no value) (units [...] (unkno wn) date) Considerations: No unknown) PCP, NEGATIVE DEVELOPER consultation help set up for good follow [...] unknown) provider in 2-3 days or call [phone] (unknown) (no (unknown) (unknown) *Return to ER [...] (unknown) (unknown) Accession Number: (units (unknown) date) [id number] ?? unknown) (unknown) (no (unknown) (unknown) Accession Number: (units (unknown) date) [id number] ?? unknown) (unknown) (no (unknown) (unknown) Acct:[id number] (units (unknown) date) unknown) (unknown) (no (unknown) [...] (unknown) (unknown) COMPARISON:? (units (u nknown) date) [facility], unknown) CR, CHEST 2 VIEW, 12/16/2008, 21:11. [...] Stat (unknown) (no (unknown) (unknown) Consult to NEGATIVE DEVELOPER - (units (unknown) date) Fixed Assets Accountant unknown) Stat (unknown) (no (unknown) (unknown) Course (units (unkno wn) date) unknown) (unknown) (no (unknown) (unknown) Covid-19 + FLU A/B (units (unknown) date) + RSV - PCR Stat unknown) (unknown) (no (unknown) (unknown) Creatinine (units (unk nown) date) (0.52-1.04) mg/dL unknown) (unknown) (no (unknown) (unknown) Creatinine 0.68 (units (unknown) date) (0.52-1.04) mg/dL unknown) (unknown) (no (unknown) (unknown) : 1985 (units (unknown) date) Acct:[id number] unknown) (unknown) (no (unknown) (unknown) : 1985 (units (unknown) date) unknown) (unknown) (no (unknown) (unknown) Date of Service: (units (unknown) date) 03/05/22 unknown) (unknown) (no (unknown) (unknown) Departure (units (unkn own) date) unknown) (unknown) (no (unknown) (unknown) Dictated by: (units (u nknown) date) Errol Lennon, unknown) Jose on 03/05/2022 at 10:54 ? [...] (unknown) date) unknown) (unknown) (no (unknown) (unknown) [facility] (units (unknown) date) [address] unknown) [place] [address] (unknown) (no (unknown) (unknown) Kidneys (units (unkno [...] (unknown) Lymph # (Auto) (units (unknown) date) (6648-8935) /uL unknown) (unknown) (no (unknown) (unknown) Lymph # (Auto) (units (unknown) date) 1400 (7713-2641) unknown) /uL (unknown) (no (unknown) (unknown) Lymph % (Auto) (units (unknown) date) (25-40) % unknown) (unknown) (no (unknown) (unknown) Lymph % (Auto) (units (unknown) date) 20.6 L (25-40) % unknown) (unknown) (no (unknown) (unknown) [id number] (units (unk nown) date) unknown) (unknown) (no [...] date) unknown) (unknown) (no (unknown) (unknown) MR#: [id number] (units (unknown) date) unknown) (unknown) (no (unknown) [...] ventral hernias.? unknown) (unknown) (no (unknown) (unknown) [place] # (Auto) (units ( unknown) date) (0-900) /uL unknown) (unknown) (no (unknown) (unknown) [place] # (Auto) 500 (units (unknown) date) (0-900) /uL unknown) (unknown) (no (unknown) (unknown) [place] % (Auto) (units ( unknown) date) (3-14) % unknown) (unknown) (no (unknown) (unknown) [place] % (Auto) 8.0 (units (unknown) date) (3-14) % unknown) (unknown) (no (unknown) (unknown) Multiple (units (unkno wn) date) unknown) (unknown) (no (unknown) (unknown) NEUROLOGICAL: (units ( unknown) date) Alert and oriented unknown) x4.Normal gait and speech. (unknown) (no (unknown) (unknown) Neut # (Auto) (units ( unknown) date) (6673-3770) /uL unknown) (unknown) (no (unknown) (unknown) Neut # (Auto) 4500 (units (unknown) date) (2841-8883) /uL unknown) (unknown) (no (unknown) (unknown) Neut [...] (single or multiple)No (unknown) (no (unknown) (unknown) [place] 1 tablet (units (unknown) date) every 6 [...] (unknown) Patient: (units (unkno wn) date) Carmina Shukla unknown) MR#: (unknown) (no (unknown) (unknown) Patient: (units (unkno wn) date) Carmina Shukla unknown) (unknown) (no (unknown) (unknown) Penicillins (units [...] date) Impression: unknown) (unknown) (no (unknown) (unknown) Collective Bargaining Specialist (units (unkno wn) date) (ranitidine)) unknown) (unknown) [...] a unknown) 12 lb weight loss since gi. She (unknown) (no (unknown) (unknown) Signed By: (units (unk nown) date) unknown) (unknown) (no (unknown) (unknown) Signed (units (unkno wn) date) unknown) (unknown) (no (unknown) (unknown) Sinus rhythm rate (units (unknown) date) 47 VT interval 130 unknown) QRS 96 QTC 364 [...] (unknown) (no (unknown) (unknown) [PERTUSSIS (units (unk n) date) VACCINES] unknown) (unknown) (no (unknown) (unknown) [...] (unknown) ranitidine HCl (units (unknown) date) [Acid Collective Bargaining Specialist unknown) (ranitidine)] 150 mg Tablet (unknown) (no [...] at 3-6 months to confirm Result panel 650 (unknown) (no (unknown) (unknown) (no value) (units [...] (unkno wn) date) Considerations: No unknown) PCP, NEGATIVE DEVELOPER consultation help set up for good follow (unknown) (no (unknown) (unknown) * differential (units (unknown) date) diagnosis includes unknown) but not limited to: Cancer infection (unknown) (no (unknown) (unknown) TRAMADOL DOES (units (unknown) date) NOT CONTAIN TYLENOL unknown) (unknown) (no (unknown) (unknown) *Continue to take (units (unknown) date) medications as unknown) directed --> SENT TO [facility] [place] (unknown) (no (unknown) (unknown) *Disposition: see (units (unknown) date) below, along with unknown) detailed discharge instructions that have (unknown) (no (unknown) (unknown) *Follow up with (units (unknown) date) your primary care unknown) provider in 2-3 days or call [phone] (unknown) (no (unknown) (unknown) *Return to ER [...] (unknown) (unknown) Accession Number: (units (unknown) date) [id number] ?? unknown) (unknown) (no (unknown) (unknown) Accession Number: (units (unknown) date) [id number] ?? unknown) (unknown) (no (unknown) (unknown) Acct:[id number] (units (unknown) date) unknown) (unknown) (no (unknown) [...] / Time (unknown) (no (unknown) (unknown) Wes Florezilly on (units (unknown) date) March 13 at [...] (unknown) (unknown) COMPARISON:? (units (u nknown) date) [facility], unknown) CR, CHEST 2 VIEW, 12/16/2008, 21:11. [...] Stat (unknown) (no (unknown) (unknown) Consult to NEGATIVE DEVELOPER - (units (unknown) date) Fixed Assets Accountant unknown) Stat (unknown) (no (unknown) (unknown) Course (units (unkno wn) date) unknown) (unknown) (no (unknown) (unknown) Covid-19 + FLU A/B (units (unknown) date) + RSV - PCR Stat unknown) (unknown) (no (unknown) (unknown) Creatinine (units (unk nown) date) (0.52-1.04) mg/dL unknown) (unknown) (no (unknown) (unknown) Creatinine 0.68 (units (unknown) date) (0.52-1.04) mg/dL unknown) (unknown) (no (unknown) (unknown) : 1985 (units (unknown) date) Acct:[id number] unknown) (unknown) (no (unknown) (unknown) : 1985 (units (unknown) date) unknown) (unknown) (no (unknown) (unknown) Date of Service: (units (unknown) date) 03/05/22 unknown) (unknown) (no (unknown) (unknown) Departure (units (unkn own) date) unknown) (unknown) (no (unknown) (unknown) Dictated by: (units (u nknown) date) ethan Woods) Jose on 03/05/2022 at 10:54 ? (unknown) (no (unknown) (unknown) Dictated by: (units (u nknown) date) ethan WoodsWilfred Garcia on 03/05/2022 at 12:54 ? ? (unknown) [...] (unknown) date) unknown) (unknown) (no (unknown) (unknown) [facility] (units (unknown) date) [address] unknown) [place] [address] (unknown) (no (unknown) (unknown) Kidneys (units (unkno [...] (unknown) Lymph # (Auto) (units (unknown) date) (8094-9522) /uL unknown) (unknown) (no (unknown) (unknown) Lymph # (Auto) (units (unknown) date) 1400 (3993-0437) unknown) /uL (unknown) (no (unknown) (unknown) Lymph % (Auto) (units (unknown) date) (25-40) % unknown) (unknown) (no (unknown) (unknown) Lymph % (Auto) (units (unknown) date) 20.6 L (25-40) % unknown) (unknown) (no (unknown) (unknown) [id number] (units (unk nown) date) unknown) (unknown) (no [...] date) unknown) (unknown) (no (unknown) (unknown) MR#: [id number] (units (unknown) date) unknown) (unknown) (no (unknown) [...] date) (Updated 03/05/22 @ unknown) 13:36 by Dnaita Vila DO) (unknown) (no (unknown) (unknown) Medical [...] ventral hernias.? unknown) (unknown) (no (unknown) (unknown) [place] # (Auto) (units ( unknown) date) (0-900) /uL unknown) (unknown) (no (unknown) (unknown) [place] # (Auto) 500 (units (unknown) date) (0-900) /uL unknown) (unknown) (no (unknown) (unknown) [place] % (Auto) (units ( unknown) date) (3-14) % unknown) (unknown) (no (unknown) (unknown) [place] % (Auto) 8.0 (units (unknown) date) (3-14) % unknown) (unknown) (no (unknown) (unknown) Multiple (units (unkno wn) date) unknown) (unknown) (no (unknown) (unknown) NEUROLOGICAL: (units ( unknown) date) Alert and oriented unknown) x4.Normal gait and speech. (unknown) (no (unknown) (unknown) Neut # (Auto) (units ( unknown) date) (6148-3556) /uL unknown) (unknown) (no (unknown) (unknown) Neut # (Auto) 4500 (units (unknown) date) (4885-0495) /uL unknown) (unknown) (no (unknown) (unknown) Neut [...] (single or multiple)No (unknown) (no (unknown) (unknown) [place] 1 tablet (units (unknown) date) every 6 [...] (unknown) Patient: (units (unkno wn) date) Carmina Shukla unknown) MR#: (unknown) (no (unknown) (unknown) Patient: (units (unkno wn) date) Carmina Shukla unknown) (unknown) (no (unknown) (unknown) Penicillins (units [...] date) Impression: unknown) (unknown) (no (unknown) (unknown) Collective Bargaining Specialist (units (unkno wn) date) (ranitidine)) unknown) (unknown) [...] Sinus rhythm rate (units (unknown) date) 47 VT interval 130 unknown) QRS 96 QTC 364 [...] (unknown) ranitidine HCl (units (unknown) date) [Acid Collective Bargaining Specialist unknown) (ranitidine)] 150 mg Tablet (unknown) (no [...] at 3-6 months to confirm Result panel 651 (unknown) (no (unknown) (unknown) (no value) (units (unk nown) date) unknown) (unknown) (no (unknown) (unknown) <Electronically (units (unknown) date) signed by Danita unknown) Linsey Vila> (unknown) (no (unknown) (unknown) (single)CT at 3 [...] (unkno wn) date) Considerations: No unknown) PCP, NEGATIVE DEVELOPER consultation help set up for good follow (unknown) (no (unknown) (unknown) * differential (units (unknown) date) diagnosis includes unknown) but not limited to: Cancer infection (unknown) (no (unknown) (unknown) TRAMADOL DOES (units (unknown) date) NOT CONTAIN TYLENOL unknown) (unknown) (no (unknown) (unknown) *Continue to take (units (unknown) date) medications as unknown) directed --> SENT TO [facility] (unknown) (no (unknown) (unknown) *Disposition: see (units (unknown) date) below, along with unknown) detailed discharge instructions that have (unknown) (no (unknown) (unknown) *Follow up with (units (unknown) date) your primary care unknown) provider in 2-3 days or call [phone] (unknown) (no (unknown) (unknown) *Return to ER [...] (unknown) (unknown) Accession Number: (units (unknown) date) [id number] ?? unknown) (unknown) (no (unknown) (unknown) Accession Number: (units (unknown) date) [id number] ?? unknown) (unknown) (no (unknown) (unknown) Acct:[id number] (units (unknown) date) unknown) (unknown) (no (unknown) [...] (unknown) (unknown) COMPARISON:? (units (u nknown) date) [facility], unknown) CR, CHEST 2 VIEW, 12/16/2008, 21:11. [...] Stat (unknown) (no (unknown) (unknown) Consult to [facility] - (units (unknown) date) Fixed Assets Accountant unknown) Stat (unknown) (no (unknown) (unknown) Course (units (unkno wn) date) unknown) (unknown) (no (unknown) (unknown) Covid-19 + FLU A/B (units (unknown) date) + RSV - PCR Stat unknown) (unknown) (no (unknown) (unknown) Creatinine (units (unk nown) date) (0.52-1.04) mg/dL unknown) (unknown) (no (unknown) (unknown) Creatinine 0.68 (units (unknown) date) (0.52-1.04) mg/dL unknown) (unknown) (no (unknown) (unknown) : 1985 (units (unknown) date) Acct:[id number] unknown) (unknown) (no (unknown) (unknown) : 1985 [...] (unknown) date) unknown) (unknown) (no (unknown) (unknown) [facility] (units (unknown) date) [address] unknown) [place] [address] (unknown) (no (unknown) (unknown) Kidneys (units (unkno [...] (unknown) Lymph # (Auto) (units (unknown) date) (8677-9532) /uL unknown) (unknown) (no (unknown) (unknown) Lymph # (Auto) (units (unknown) date) 1400 (0210-6651) unknown) /uL (unknown) (no (unknown) (unknown) Lymph % (Auto) (units (unknown) date) (25-40) % unknown) (unknown) (no (unknown) (unknown) Lymph % (Auto) (units (unknown) date) 20.6 L (25-40) % unknown) (unknown) (no (unknown) (unknown) [id number] (units (unk nown) date) unknown) (unknown) (no [...] date) unknown) (unknown) (no (unknown) (unknown) MR#: [id number] (units (unknown) date) unknown) (unknown) (no (unknown) [...] ventral hernias.? unknown) (unknown) (no (unknown) (unknown) [place] # (Auto) (units ( unknown) date) (0-900) /uL unknown) (unknown) (no (unknown) (unknown) [place] # (Auto) 500 (units (unknown) date) (0-900) /uL unknown) (unknown) (no (unknown) (unknown) [place] % (Auto) (units ( unknown) date) (3-14) % unknown) (unknown) (no (unknown) (unknown) [place] % (Auto) 8.0 (units (unknown) date) (3-14) % unknown) (unknown) (no (unknown) (unknown) Multiple (units (unkno wn) date) unknown) (unknown) (no (unknown) (unknown) NEUROLOGICAL: (units ( unknown) date) Alert and oriented unknown) x4.Normal gait and speech. (unknown) (no (unknown) (unknown) Neut # (Auto) (units ( unknown) date) (4158-1103) /uL unknown) (unknown) (no (unknown) (unknown) Neut # (Auto) 4500 (units (unknown) date) (9817-8858) /uL unknown) (unknown) (no (unknown) (unknown) Neut [...] (single or multiple)No (unknown) (no (unknown) (unknown) [place] 1 tablet (units (unknown) date) every 6 [...] (unknown) Patient: (units (unkno wn) date) Carmina Shukla unknown) MR#: (unknown) (no (unknown) (unknown) Patient: (units (unkno wn) date) Carmina Shukla unknown) (unknown) (no (unknown) (unknown) Penicillins (units [...] date) Impression: unknown) (unknown) (no (unknown) (unknown) Collective Bargaining Specialist (units (unkno wn) date) (ranitidine)) unknown) (unknown) [...] Sinus rhythm rate (units (unknown) date) 47 VT interval 130 unknown) QRS 96 QTC 364 [...] (unknown) ranitidine HCl (units (unknown) date) [Acid Collective Bargaining Specialist unknown) (ranitidine)] 150 mg Tablet (unknown) (no [...] at 3-6 months to confirm Result panel 652 (unknown) (no date) (unknown) (unknown) (no value) (units (un known) unknown) (unknown) (no date) (unknown) (unknown) NO GROWTH (units (unk nown) AFTER 24 unknown) HOURS Result panel 653 (unknown) (no date) (unknown) (unknown) (no value) (units (un known) unknown) (unknown) (no date) (unknown) (unknown) NO GROWTH (units (unk nown) AFTER 24 unknown) HOURS Result panel 654 (unknown) (no date) (unknown) (unknown) (no value) (units (un known) unknown) (unknown) (no date) (unknown) (unknown) NO GROWTH (units (unk nown) AFTER 48 unknown) HOURS Result panel 655 (unknown) (no date) (unknown) (unknown) (no value) (units (un known) unknown) (unknown) (no date) (unknown) (unknown) NO GROWTH (units (unk nown) AFTER 48 unknown) HOURS Result panel 656 (unknown) (no (unknown) (unknown) (no value) (units [...] own) date) unknown) (unknown) (no (unknown) (unknown) [place] (units ( unknown) date) [address] unknown) (unknown) (no (unknown) (unknown) Asthma (units (unkno wn) date) unknown) (unknown) (no (unknown) (unknown) Attending Dr: (units ( unknown) date) Kolton SCOTT unknown) (unknown) (no (unknown) (unknown) : 1985 (units (unknown) date) Acct:[id number] unknown) (unknown) (no (unknown) (unknown) Dept at [...] wn) date) unknown) (unknown) (no (unknown) (unknown) [id number] (units (unk nown) date) unknown) (unknown) (no (unknown) (unknown) Medical History (units (unknown) date) (Updated 03/05/22 @ unknown) 13:36 by Danita Vila DO) (unknown) (no (unknown) (unknown) Other Menstrual (units (unknown) date) Period: Other unknown) (unknown) (no (unknown) (unknown) PFSH (units (unkno wn) date) unknown) (unknown) (no (unknown) (unknown) Patient: (units (unkno wn) date) Carmina Shukla Kenneth unknown) MR#: (unknown) (no (unknown) (unknown) [...] effort is unknown) made to edit content, finished goods planner errors Result panel 657 (unknown) (no (unknown) (unknown) (no value) (units [...] own) date) unknown) (unknown) (no (unknown) (unknown) [place], [place] (units ( unknown) date) [address] unknown) (unknown) (no (unknown) (unknown) Asthma (units [...] (unknown) (unknown) : 1985 (units (unknown) date) Acct:[id number] unknown) (unknown) (no (unknown) (unknown) Dept at [...] wn) date) unknown) (unknown) (no (unknown) (unknown) [id number] (units (unk nown) date) unknown) (unknown) (no [...] (unknown) Patient: (units (unkno wn) date) Carmina Shukla unknown) MR#: (unknown) (no (unknown) (unknown) Penicillins [...] effort is unknown) made to edit content, finished goods planner errors (unknown) (no (unknown) (unknown) tabs 04/05/18 [Rx (units (unknown) date) Confirmed 03/08/22] unknown) Result panel 658 (unknown) (no (unknown) (unknown) (no value) (units [...] own) date) unknown) (unknown) (no (unknown) (unknown) [place], [place] (units ( unknown) date) [address] unknown) (unknown) (no (unknown) (unknown) Assessment + [...] (unknown) (unknown) : 1985 (units (unknown) date) Acct:[id number] unknown) (unknown) (no (unknown) (unknown) Dept at [...] nknown) date) unknown) (unknown) (no (unknown) (unknown) [id number] (units (unk nown) date) unknown) (unknown) (no [...] (unknown) Patient: (units (unkno wn) date) Carmina Shukla unknown) MR#: (unknown) (no (unknown) (unknown) Penicillins [...] effort is unknown) made to edit content, finished goods planner errors (unknown) (no (unknown) (unknown) tabs 04/05/18 [Rx (units (unknown) date) Confirmed 03/08/22] unknown) (unknown) (no (unknown) (unknown) treatment. Lumps (units (unknown) date) came about a week unknown) ago. Result panel 659 (unknown) (no (unknown) (unknown) (no value) (units [...] own) date) unknown) (unknown) (no (unknown) (unknown) [place], [place] (units ( unknown) date) [address] unknown) (unknown) (no (unknown) (unknown) Assessment + [...] (unknown) (unknown) : 1985 (units (unknown) date) Acct:[id number] unknown) (unknown) (no (unknown) (unknown) Dept at [...] nknown) date) unknown) (unknown) (no (unknown) (unknown) [id number] (units (unk nown) date) unknown) (unknown) (no [...] (unknown) Patient: (units (unkno wn) date) Carmina Shukla unknown) MR#: (unknown) (no (unknown) (unknown) Penicillins [...] effort is unknown) made to edit content, finished goods planner errors (unknown) (no (unknown) (unknown) tabs 04/05/18 [Rx (units (unknown) date) Confirmed 03/08/22] unknown) (unknown) (no (unknown) (unknown) treatment. Lumps (units (unknown) date) came about a week unknown) ago. Result panel 660 (unknown) (no (unknown) (unknown) (no value) (units [...] own) date) unknown) (unknown) (no (unknown) (unknown) [place], [place] (units ( unknown) date) [address] unknown) (unknown) (no (unknown) (unknown) Assessment + [...] (unknown) (unknown) : 1985 (units (unknown) date) Acct:[id number] unknown) (unknown) (no (unknown) (unknown) Dept at [...] pulmonary nodules with (unknown) (no (unknown) (unknown) [id number] (units (unk nown) date) unknown) (unknown) (no [...] (unknown) (unknown) Patient: (units (unkno wn) date) JonathanCarmina A unknown) MR#: (unknown) (no (unknown) (unknown) [...] (unknown) date) f/u: Bilateral unknown) breast lumps*est yaneli/Javier 03/13 (unknown) (no (unknown) (unknown) Vitals (units [...] effort is unknown) made to edit content, finished goods planner errors (unknown) (no (unknown) (unknown) tabs 04/05/18 [Rx (units (unknown) date) Confirmed 03/08/22] unknown) (unknown) (no (unknown) (unknown) the same location (units (unknown) date) about 1 year ago. unknown) Went away without treatment. Tender lumps (unknown) (no (unknown) (unknown) to pulmonary (units (u nknown) date) medicine already. unknown) Result panel 661 (unknown) (no (unknown) (unknown) (no value) (units [...] own) date) unknown) (unknown) (no (unknown) (unknown) [place], [place] (units ( unknown) date) [address] unknown) (unknown) (no (unknown) (unknown) Assessment + [...] (unknown) (unknown) : 1985 (units (unknown) date) Acct:[id number] unknown) (unknown) (no (unknown) (unknown) Details: (units [...] pulmonary nodules with (unknown) (no (unknown) (unknown) [id number] (units (unk nown) date) unknown) (unknown) (no [...] (unknown) (unknown) Patient: (units (unkno wn) date) JonathanCarmina Cooper unknown) MR#: (unknown) (no (unknown) (unknown) Penicillins [...] effort is unknown) made to edit content, finished goods planner errors ma (unknown) (no (unknown) (unknown) tabs [...] 'sound-alike' substitutions may have occurred Result panel 662 (unknown) (no date) (unknown) (unknown) (no value) (units (un known) unknown) (unknown) (no date) (unknown) (unknown) NO GROWTH (units (unk nown) AFTER 72 unknown) HOURS Result panel 663 (unknown) (no date) (unknown) (unknown) (no value) (units (un known) unknown) (unknown) (no date) (unknown) (unknown) NO GROWTH (units (unk nown) AFTER 72 unknown) HOURS Result panel 664 (unknown) (no date) (unknown) (unknown) (no value) (units (un known) unknown) (unknown) (no date) (unknown) (unknown) NO GROWTH (units (unk nown) AFTER 4 DAYS unknown) Result panel 665 (unknown) (no date) (unknown) (unknown) (no value) (units (un known) unknown) (unknown) (no date) (unknown) (unknown) NO GROWTH (units (unk nown) AFTER 4 DAYS unknown) Result panel 666 (unknown) (no date) (unknown) (unknown) (no value) (units (un known) unknown) (unknown) (no date) (unknown) (unknown) NO GROWTH (units (unk nown) AFTER 5 DAYS unknown) Result panel 667 (unknown) (no date) (unknown) (unknown) (no value) (units (un known) unknown) (unknown) (no date) (unknown) (unknown) NO GROWTH (units (unk nown) AFTER 5 DAYS unknown) Result panel 668 (unknown) (no (unknown) (unknown) (no value) (units [...] (unknown) CHIKIS [place] (units ( unknown) date) [address] unknown) (unknown) (no (unknown) (unknown) Asthma (units (unkno wn) date) unknown) (unknown) (no (unknown) (unknown) Attending Dr: (units ( unknown) date) Wes SCOTT unknown) (unknown) (no (unknown) (unknown) : 1985 (units (unknown) date) Acct:[id number] unknown) (unknown) (no (unknown) (unknown) Dept at [...] wn) date) unknown) (unknown) (no (unknown) (unknown) [id number] (units (unk nown) date) unknown) (unknown) (no (unknown) (unknown) Medical History (units (unknown) date) (Updated 03/08/22 @ unknown) 10:33 by TYLER Fountain) (unknown) (no (unknown) (unknown) Other Menstrual (units (unknown) date) Period: Other unknown) (unknown) (no (unknown) (unknown) PFSH (units (unkno wn) date) unknown) (unknown) (no (unknown) (unknown) Patient: (units (unkno wn) date) Shukla,Carmina A unknown) MR#: (unknown) (no (unknown) (unknown) [...] effort is unknown) made to edit content, finished goods planner errors Result panel 669 (unknown) (no (unknown) (unknown) (no value) (units [...] own) date) unknown) (unknown) (no (unknown) (unknown) [place], [place] (units ( unknown) date) [address] unknown) (unknown) (no (unknown) (unknown) Asthma (units [...] (unknown) (unknown) : 1985 (units (unknown) date) Acct:[id number] unknown) (unknown) (no (unknown) (unknown) Dept at [...] wn) date) unknown) (unknown) (no (unknown) (unknown) [id number] (units (unk nown) date) unknown) (unknown) (no [...] (unknown) (unknown) Patient: (units (unkno wn) date) Shukla,Carmina A unknown) MR#: (unknown) (no (unknown) (unknown) [...] effort is unknown) made to edit content, finished goods planner errors (unknown) (no (unknown) (unknown) tabs 04/05/18 [Rx (units (unknown) date) Confirmed 03/13/22] unknown) Result panel 670 (unknown) (no (unknown) (unknown) (no value) (units [...] own) date) unknown) (unknown) (no (unknown) (unknown) [place] (units ( unknown) date) [address] unknown) (unknown) (no (unknown) (unknown) Asthma (units [...] (unknown) (unknown) : 1985 (units (unknown) date) Acct:[id number] unknown) (unknown) (no (unknown) (unknown) Dept at [...] pulmonary nodules with (unknown) (no (unknown) (unknown) [id number] (units (unk nown) date) unknown) (unknown) (no [...] (unknown) Patient: (units (unkno wn) date) Carmina Shukla unknown) MR#: (unknown) (no (unknown) (unknown) Pediatric [...] effort is unknown) made to edit content, finished goods planner errors (unknown) (no (unknown) (unknown) tabs 04/05/18 [Rx (units (unknown) date) Confirmed 03/13/22] unknown) (unknown) (no (unknown) (unknown) to pulmonary (units (u nknown) date) medicine already unknown) and she will call to schedule appointment. She (unknown) (no (unknown) (unknown) with pain (units (unkn own) date) medication and unknown) recommendation for close follow up. Had the same lumps Result panel 671 (unknown) (no (unknown) (unknown) (no value) (units [...] own) date) unknown) (unknown) (no (unknown) (unknown) [place], [place] (units ( unknown) date) [address] unknown) (unknown) (no (unknown) (unknown) Asthma (units [...] (unknown) (unknown) : 1985 (units (unknown) date) Acct:[id number] unknown) (unknown) (no (unknown) (unknown) Dept at [...] pulmonary nodules with (unknown) (no (unknown) (unknown) [id number] (units (unk nown) date) unknown) (unknown) (no [...] (unknown) Patient: (units (unkno wn) date) Carmina Shukla unknown) MR#: (unknown) (no (unknown) (unknown) Pediatric [...] (unknown) (no (unknown) (unknown) emma bustamante [place] (units (unknown) date) was pcp but then [...] effort is unknown) made to edit content, finished goods planner errors (unknown) (no (unknown) (unknown) tabs 04/05/18 [Rx (units (unknown) date) Confirmed 03/13/22] unknown) (unknown) (no (unknown) (unknown) to pulmonary (units (u nknown) date) medicine already unknown) and she will call to schedule appointment. She (unknown) (no (unknown) (unknown) with pain (units (unkn own) date) medication and unknown) recommendation for close follow up. Had the same lumps Result panel 672 (unknown) (no (unknown) (unknown) (no value) (units [...] own) date) unknown) (unknown) (no (unknown) (unknown) [place], [place] (units ( unknown) date) [address] unknown) (unknown) (no (unknown) (unknown) Asthma (units [...] (unknown) (unknown) : 1985 (units (unknown) date) Acct:[id number] unknown) (unknown) (no (unknown) (unknown) Dept at [...] pulmonary nodules with (unknown) (no (unknown) (unknown) [id number] (units (unk nown) date) unknown) (unknown) (no [...] (unknown) Patient: (units (unkno wn) date) Carmina Shukla unknown) MR#: (unknown) (no (unknown) (unknown) Pediatric [...] (unknown) (unknown) 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 (unknown) (no (unknown) [...] 6 and unknown) . 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 (units [...] unknown) (unknown) (no (unknown) (unknown) saw a echocardiographer (units (unknown) date) in [facility] unknown) 2018. (unknown) (no (unknown) (unknown) software. Although (units (unknown) date) every effort is unknown) made to edit content, finished goods planner errors (unknown) (no (unknown) (unknown) tabs 04/05/18 [...] (units (unk nown) date) unknown) Result panel 673 (unknown) (no (unknown) (unknown) (no value) (units [...] own) date) unknown) (unknown) (no (unknown) (unknown) [place], [place] (units ( unknown) date) [id number] unknown) (unknown) (no (unknown) (unknown) Asthma (units [...] (unknown) (unknown) : 1985 (units (unknown) date) Acct:[id number] unknown) (unknown) (no (unknown) (unknown) Dept at [...] pulmonary nodules with (unknown) (no (unknown) (unknown) [id number] (units (unk nown) date) unknown) (unknown) (no [...] (unknown) Patient: (units (unkno wn) date) Carmina Shukla unknown) MR#: (unknown) (no (unknown) (unknown) Pediatric [...] (unknown) (unknown) 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 (unknown) (no (unknown) [...] (unknown) (no (unknown) (unknown) emma bustamante [place] (units (unknown) date) was pcp but then [...] 6 and unknown) . 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 (units [...] unknown) (unknown) (no (unknown) (unknown) saw a echocardiographer (units (unknown) date) in [facility] unknown) 2018. (unknown) (no (unknown) (unknown) software. Although (units (unknown) date) every effort is unknown) made to edit content, finished goods planner errors (unknown) (no (unknown) (unknown) tabs 04/05/18 [...] (units (unk nown) date) unknown) Result panel 674 (unknown) (no (unknown) (unknown) (no value) (units [...] own) date) unknown) (unknown) (no (unknown) (unknown) [place], [place] (units ( unknown) date) [address] unknown) (unknown) (no (unknown) (unknown) Asthma (units [...] (unknown) (unknown) : 1985 (units (unknown) date) Acct:[id number] unknown) (unknown) (no (unknown) (unknown) Dept at [...] pulmonary nodules with (unknown) (no (unknown) (unknown) [id number] (units (unk nown) date) unknown) (unknown) (no [...] (unknown) ORDER REFERRAL TO (units (unknown) date) [facility] FOR unknown) THERAPY. 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 (unknown) (no (unknown) [...] (unknown) (no (unknown) (unknown) emma bustamante [place] (units (unknown) date) was pcp but then [...] 6 and unknown) . 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 (units [...] unknown) (unknown) (no (unknown) (unknown) saw a echocardiographer (units (unknown) date) in [facility] unknown) 2019. (unknown) (no (unknown) (unknown) software. Although (units (unknown) date) every effort is unknown) made to edit content, finished goods planner errors (unknown) (no (unknown) (unknown) tabs 04/05/18 [...] (units (unk nown) date) unknown) Result panel 675 (unknown) (no (unknown) (unknown) (no value) (units [...] (unknown) CHIKIS Cintron (units ( unknown) date) [id number] unknown) (unknown) (no (unknown) (unknown) Assessment + [...] (unknown) (unknown) : 1985 (units (unknown) date) Acct:[id number] unknown) (unknown) (no (unknown) (unknown) Depression/Bipolar (units [...] pulmonary nodules with (unknown) (no (unknown) (unknown) [id number] (units (unk nown) date) unknown) (unknown) (no [...] (unknown) Patient: (units (unkno wn) date) Carmina Shukla unknown) MR#: (unknown) (no (unknown) (unknown) Pediatric [...] date) with an educational unknown) sal from [email or web address]. 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 (unknown) (no (unknown) [...] 6 and unknown) . 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 (units [...] unknown) (unknown) (no (unknown) (unknown) saw a echocardiographer (units (unknown) date) [place] [facility] [place]) 2019. (unknown) (no (unknown) (unknown) software. Although (units (unknown) date) every effort is unknown) made to edit content, finished goods planner errors (unknown) (no (unknown) (unknown) tabs 04/05/18 [...] or get along with other Result panel 676 (unknown) (no (unknown) (unknown) (no value) (units [...] (unknown) CHIKIS Cintron (units ( unknown) date) [address] unknown) (unknown) (no (unknown) (unknown) Assessment + [...] (unknown) (unknown) : 1985 (units (unknown) date) Acct:[id number] unknown) (unknown) (no (unknown) (unknown) Depression/Bipolar (units [...] pulmonary nodules with (unknown) (no (unknown) (unknown) [id number] (units (unk nown) date) unknown) (unknown) (no [...] (unknown) Patient: (units (unkno wn) date) Carmina Shukla unknown) MR#: (unknown) (no (unknown) (unknown) Pediatric [...] date) with an educational unknown) sal from [email or web address]. 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 (unknown) (no (unknown) [...] 6 and unknown) . 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 (units [...] unknown) (unknown) (no (unknown) (unknown) saw a echocardiographer (units (unknown) date) in [facility] unknown) 2019. (unknown) (no (unknown) (unknown) software. Although (units (unknown) date) every effort is unknown) made to edit content, finished goods planner errors (unknown) (no (unknown) (unknown) tabs 04/05/18 [...] or get along with other Result panel 677 (unknown) (no (unknown) (unknown) (no value) (units [...] (unknown) Abdulaziz, CHIKIS (units ( unknown) date) [address] unknown) (unknown) (no (unknown) (unknown) Assessment + [...] (unknown) (unknown) : 1985 (units (unknown) date) Acct:[id number] unknown) (unknown) (no (unknown) (unknown) Depression/Bipolar (units [...] wn) date) unknown) (unknown) (no (unknown) (unknown) [id number] (units (unk nown) date) unknown) (unknown) (no [...] (unknown) Patient: (units (unkno wn) date) Carmina Shukla unknown) MR#: (unknown) (no (unknown) (unknown) Pediatric [...] date) with an educational unknown) sal from [email or web address]. 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 (unknown) (no (unknown) [...] 6 and unknown) . 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 (units [...] substitutions (unknown) (no (unknown) (unknown) saw a echocardiographer (units (unknown) date) in [facility] unknown) 2019. (unknown) (no (unknown) (unknown) software. Although (units (unknown) date) every effort is unknown) made to edit content, finished goods planner errors (unknown) (no (unknown) (unknown) tabs 04/05/18 [...] or get along with other Result panel 678 (unknown) (no (unknown) (unknown) (no value) (units [...] to unknown) establish here.? She lives in [place], (unknown) (no (unknown) (unknown) 4. Feeling tired [...] unknown) (unknown) (no (unknown) (unknown) CHIKIS C[place] [address] (unit s (unknown) date) unknown) (unknown) (no [...] (unknown) (unknown) : 1985 (units (unknown) date) Acct:[id number] unknown) (unknown) (no (unknown) (unknown) Depression Type: [...] wn) date) unknown) (unknown) (no (unknown) (unknown) [id number] (units (unk nown) date) unknown) (unknown) (no [...] (unknown) Patient: (units (unkno wn) date) Carmina Shukla A unknown) MR#: (unknown) (no (unknown) (unknown) [...] wn) date) unknown) (unknown) (no (unknown) (unknown) Sai with her (unit s (unknown) date) and [...] date) with an educational unknown) sal from [employer] (unknown) (no (unknown) (unknown) and she [...] wn) date) unknown) (unknown) (no (unknown) (unknown) [facility] (units (unknown) date) takes insurance. unknown) (unknown) (no (unknown) (unknown) denies any ongoing (units (unknown) date) issues unknown) postoperatively.? She saw a echocardiographer in [place] (unknown) (no (unknown) (unknown) expeditiously (units ( [...] unknown) agreed to a referral to [facility] (unknown) (no (unknown) (unknown) maintenance [...] date) ?unnecessary open unknown) heart surgery? at [place] in 2008.? 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 Although (units (unknown) date) every effort is made unknown) to edit content, finished goods planner errors (unknown) (no (unknown) (unknown) spondylosis, (units [...] (unknown) (no (unknown) (unknown) time as a toll service observer at (unit s (unknown) date) [employer]; however, unknown) she is looking for a [...] date) stress.? 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 She lives in [place], (unknown) (no (unknown) (unknown) 4. Feeling tired [...] own) date) unknown) (unknown) (no (unknown) (unknown) [place] [address] (unit s (unknown) date) unknown) (unknown) (no [...] (unknown) (unknown) : 1985 (units (unknown) date) Acct:[id number] unknown) (unknown) (no (unknown) (unknown) Depression Type: [...] Documented By: (units (unknown) date) Wes Herrera TYLER unknown) 03/13/22 1121 (unknown) (no (unknown) (unknown) [...] wn) date) unknown) (unknown) (no (unknown) (unknown) [id number] (units (unk nown) date) unknown) (unknown) (no [...] (unknown) Patient: (units (unkno wn) date) Carmina Shukla unknown) MR#: (unknown) (no (unknown) (unknown) Pediatric [...] unknown) as this patient is new to al and therefore we (unknown) (no (unknown) (unknown) [...] date) with an educational unknown) sal from [email or web address]. (unknown) (no (unknown) (unknown) and she would [...] date) issues unknown) postoperatively.? She saw a echocardiographer in [place] (unknown) (no (unknown) (unknown) expeditiously (units ( [...] unknown) agreed to a referral to [facility] (unknown) (no (unknown) (unknown) maintenance [...] date) ?unnecessary open unknown) heart surgery? at [place] in 2008.? 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 (unknown) (no (unknown) (unknown) you to do your (units (unknown) date) work, take care of unknown) things at home, or get along with other Result panel 680 (unknown) (no date) (unknown) (unknown) (no value) (units (un known) unknown) (unknown) (no date) (unknown) (unknown) 03/24/22 (units (unkn own) unknown) (unknown) (no date) (unknown) (unknown) [address] (units (unk nown) [address] unknown) (unknown) (no date) (unknown) (unknown) : [id number] (units ( unknown) unknown) (unknown) (no date) (unknown) (unknown) Accession (units (unk nown) Number: unknown) [id number] (unknown) (no date) (unknown) (unknown) Age/Sex: 36 / (units (unknown) F Date of unknown) Service: (unknown) (no date) (unknown) (unknown) [place], [place] (units (unknown) [address] unknown) (unknown) (no date) (unknown) (unknown) Approved by: (units ( unknown) ethan Bautista) Jose on 03/24/2022 at 20:02 (unknown) (no date) (unknown) (unknown) Bones and (units (unk nown) chest wall: No unknown) suspicious bony lesions. Overlying soft tissues (unknown) (no date) (unknown) (unknown) CHEST 2 VIEW, (units (unknown) 12/16/2008, unknown) 21:11. (unknown) (no date) (unknown) (unknown) COMPARISON: [facility] ([facility] nknown[facility], XR CHEST 1V, 03/05/2022, 10:32. [facility] (unknown) (no date) (unknown) (unknown) : (units (unkn own) 1985 unknown) Acct:[id number] (unknown) (no date) (unknown) (unknown) Dictated by: (units ( unknown) Juarez Fatima unknownWilfred Garcia on 03/24/2022 at 20:01 (unknown) (no date) (unknown) (unknown) FINDINGS: (units (unk nown) unknown) (unknown) (no date) (unknown) (unknown) [facility], (units (unknown) unknown) (unknown) (no date) (unknown) (unknown) IMPRESSION: (units (u nknown) Normal for age, unknown) source of current chest pain symptoms is not seen. (unknown) (no date) (unknown) (unknown) INDICATIONS: (units ( unknown) chest pain unknown) (unknown) (no date) (unknown) (unknown) [facility]) (unknown) (no [...] (unknown) (unknown) Patient: (units (unkn own) David Shukla unknown) ie A MR# (unknown) (no date) [...] (unknown) unremarkable. (units (unknown) unknown) Result panel 681 (unknown) (no date) (unknown) (unknown) 0 /ul [...] (unknown) 90.1 fl (unkn own) Result panel 682 (unknown) (no date) (unknown) (unknown) Flu A (units (unkn own) NEGATIVE unknown) (unknown) (no date) (unknown) (unknown) Flu B (units (unkn own) NEGATIVE unknown) (unknown) (no date) (unknown) (unknown) Negative (units (unkn own) unknown) (unknown) (no date) (unknown) (unknown) Negative (units (unkn own) unknown) Result panel 683 (unknown) (no date) (unknown) (unknown) 1.0 (units unknown) (unknown) (unknown) (no date) (unknown) (unknown) 11.8 seconds (unkn own) (unknown) (no date) (unknown) (unknown) 27 seconds (unkn own) (unknown) (no date) (unknown) (unknown) 27 seconds (unkn own) Result panel 684 (unknown) (no date) (unknown) (unknown) > 60 [...] not ng/ml (unkn own) performed Result panel 685 (unknown) (no date) (unknown) (unknown) > 60 [...] not ng/ml (unkn own) performed Result panel 686 (unknown) (no date) (unknown) (unknown) 0.14 ng/ml (unkn own) (unknown) (no date) (unknown) (unknown) 0.14 ng/ml (unkn own) Result panel 687 (unknown) (no (unknown) (unknown) (no value) (units [...] (unknown) (unknown) : 1985 (units (unknown) date) Acct:[id number] unknown) (unknown) (no (unknown) (unknown) Date of [...] date) Signs: unknown) (unknown) (no (unknown) (unknown) [facility] (units (unknown) date) [address] unknown) [place] [address] (unknown) (no (unknown) (unknown) Lab Data (units [...] (unknown) Lymph # (Auto) (units (unknown) date) (2547-4266) /uL unknown) (unknown) (no (unknown) (unknown) Lymph # (Auto) 500 (units (unknown) date) L (9418-4581) /uL unknown) (unknown) (no (unknown) (unknown) Lymph % (Auto) (units (unknown) date) (25-40) % unknown) (unknown) (no (unknown) (unknown) Lymph % (Auto) 7.4 (units (unknown) date) L (25-40) % unknown) (unknown) (no (unknown) (unknown) [id number] (units (unk nown) date) unknown) (unknown) (no [...] date) Ambulatory unknown) (unknown) (no (unknown) (unknown) [place] # (Auto) (units ( unknown) date) (0-900) /uL unknown) (unknown) (no (unknown) (unknown) [place] # (Auto) 400 (units (unknown) date) (0-900) /uL unknown) (unknown) (no (unknown) (unknown) [place] % (Auto) (units ( unknown) date) (3-14) % unknown) (unknown) (no (unknown) (unknown) [place] % (Auto) 6.1 (units (unknown) date) (3-14) % unknown) (unknown) (no (unknown) (unknown) Neut # (Auto) (units ( unknown) date) (3367-3197) /uL unknown) (unknown) (no (unknown) (unknown) Neut # (Auto) 6200 (units (unknown) date) (4456-2760) /uL unknown) (unknown) (no (unknown) (unknown) Neut [...] (unknown) Patient: (units (unkno wn) date) Carmina Shukla unknown) MR#: (unknown) (no (unknown) (unknown) [place] [...] (units (unkno wn) date) unknown) Result panel 688 (unknown) (no (unknown) (unknown) (no value) (units [...] (unknown) (unknown) : 1985 (units (unknown) date) Acct:[id number] unknown) (unknown) (no (unknown) (unknown) Date of [...] date) Signs: unknown) (unknown) (no (unknown) (unknown) [facility] (units (unknown) date) [address] unknown) [place] [address] (unknown) (no (unknown) (unknown) Lab Data (units [...] (unknown) Lymph # (Auto) (units (unknown) date) (8235-5405) /uL unknown) (unknown) (no (unknown) (unknown) Lymph # (Auto) 500 (units (unknown) date) L (6968-0722) /uL unknown) (unknown) (no (unknown) (unknown) Lymph % (Auto) (units (unknown) date) (25-40) % unknown) (unknown) (no (unknown) (unknown) Lymph % (Auto) 7.4 (units (unknown) date) L (25-40) % unknown) (unknown) (no (unknown) (unknown) [id number] (units (unk nown) date) unknown) (unknown) (no [...] date) Ambulatory unknown) (unknown) (no (unknown) (unknown) [place] # (Auto) (units ( unknown) date) (0-900) /uL unknown) (unknown) (no (unknown) (unknown) [place] # (Auto) 400 (units (unknown) date) (0-900) /uL unknown) (unknown) (no (unknown) (unknown) [place] % (Auto) (units ( unknown) date) (3-14) % unknown) (unknown) (no (unknown) (unknown) [place] % (Auto) 6.1 (units (unknown) date) (3-14) % unknown) (unknown) (no (unknown) (unknown) Neut # (Auto) (units ( unknown) date) (8057-8585) /uL unknown) (unknown) (no (unknown) (unknown) Neut # (Auto) 6200 (units (unknown) date) (3938-9064) /uL unknown) (unknown) (no (unknown) (unknown) Neut [...] (unknown) Patient: (units (unkno wn) date) Carmina Shukla unknown) MR#: (unknown) (no (unknown) (unknown) [place] [...] (units (unkno wn) date) unknown) Result panel 689 (unknown) (no (unknown) (unknown) (no value) (units (unk nown) date) unknown) (unknown) (no (unknown) (unknown) 03/24/22 (units (unkno wn) date) unknown) (unknown) (no (unknown) (unknown) [address] (units (unkn own) date) [address] unknown) (unknown) (no (unknown) (unknown) : [id number] (units (u nknown) date) unknown) (unknown) (no (unknown) (unknown) Accession (units (unkn own) date) Number: unknown) [id number] (unknown) (no (unknown) (unknown) Age/Sex: 36 / F (units (unknown) date) Date of Service: unknown) (unknown) (no (unknown) (unknown) [place], [place] (units ( unknown) date) [address] unknown) (unknown) (no (unknown) (unknown) Approved by: (units (u nknown) date) pilar Bautista M.D. on 03/24/2022 at 21:23 (unknown) (no (unknown) [...] (unknown) (unknown) : 1985 (units (unknown) date) Acct:[id number] unknown) (unknown) (no (unknown) (unknown) Dictated by: (units (u nknown) date) ethan Bautista) Silvana. on 03/24/2022 at 21:23 (unknown) (no (unknown) (unknown) FINDINGS: (units (unkn own) date) unknown) (unknown) (no (unknown) (unknown) IMPRESSION: (units (un known) date) Normal for age, unknown) source of headache is not found. (unknown) (no (unknown) (unknown) INDICATIONS: (units (u nknown) date) severe headache unknown) (unknown) (no (unknown) (unknown) Image quality: (units (unknown) date) Excellent. unknown) (unknown) (no (unknown) (unknown) [facility] (units (unknown) date) unknown) (unknown) (no (unknown) [...] (unknown) Patient: (units (unkno wn) date) Tish Shukla unknown) e A MR# (unknown) (no (unknown) [...] mA and/or kV according to Result panel 690 (unknown) (no (unknown) (unknown) (no value) (units [...] (unknown) (unknown) : 1985 (units (unknown) date) Acct:[id number] unknown) (unknown) (no (unknown) (unknown) Date of [...] date) Signs: unknown) (unknown) (no (unknown) (unknown) [facility] (units (unknown) date) [address] unknown) [place] [address] (unknown) (no (unknown) (unknown) Lab Data (units [...] (unknown) Lymph # (Auto) (units (unknown) date) (1757-3503) /uL unknown) (unknown) (no (unknown) (unknown) Lymph # (Auto) 500 (units (unknown) date) L (1724-3499) /uL unknown) (unknown) (no (unknown) (unknown) Lymph % (Auto) (units (unknown) date) (25-40) % unknown) (unknown) (no (unknown) (unknown) Lymph % (Auto) 7.4 (units (unknown) date) L (25-40) % unknown) (unknown) (no (unknown) (unknown) [id number] (units (unk nown) date) unknown) (unknown) (no [...] date) Ambulatory unknown) (unknown) (no (unknown) (unknown) [place] # (Auto) (units ( unknown) date) (0-900) /uL unknown) (unknown) (no (unknown) (unknown) [place] # (Auto) 400 (units (unknown) date) (0-900) /uL unknown) (unknown) (no (unknown) (unknown) [place] % (Auto) (units ( unknown) date) (3-14) % unknown) (unknown) (no (unknown) (unknown) [place] % (Auto) 6.1 (units (unknown) date) (3-14) % unknown) (unknown) (no (unknown) (unknown) Morphine Sulfate (units (unknown) date) (Morphine 2 Mg/Ml unknown) Inj) 2 mg IV NOW ONE (unknown) (no (unknown) (unknown) Neut # (Auto) (units ( unknown) date) (3030-0470) /uL unknown) (unknown) (no (unknown) (unknown) Neut # (Auto) 6200 (units (unknown) date) (9674-8141) /uL unknown) (unknown) (no (unknown) (unknown) Neut [...] (unknown) Patient: (units (unkno wn) date) Carmina Shukla unknown) MR#: (unknown) (no (unknown) (unknown) [place] [...] (unknown) (unknown) Urine Specific (units (unknown) date) [place] 1.030 unknown) (unknown) (no (unknown) (unknown) Vital [...] (units (unkno wn) date) unknown) Result panel 691 (unknown) (no (unknown) (unknown) (no value) (units [...] (unknown) (unknown) : 1985 (units (unknown) date) Acct:[id number] unknown) (unknown) (no (unknown) (unknown) Date of [...] date) Signs: unknown) (unknown) (no (unknown) (unknown) [facility] (units (unknown) date) [address] unknown) [place] [address] (unknown) (no (unknown) (unknown) Lab Data (units [...] (unknown) Lymph # (Auto) (units (unknown) date) (9748-8666) /uL unknown) (unknown) (no (unknown) (unknown) Lymph # (Auto) 500 (units (unknown) date) L (9694-6341) /uL unknown) (unknown) (no (unknown) (unknown) Lymph % (Auto) (units (unknown) date) (25-40) % unknown) (unknown) (no (unknown) (unknown) Lymph % (Auto) 7.4 (units (unknown) date) L (25-40) % unknown) (unknown) (no (unknown) (unknown) [id number] (units (unk nown) date) unknown) (unknown) (no [...] date) Ambulatory unknown) (unknown) (no (unknown) (unknown) [place] # (Auto) (units ( unknown) date) (0-900) /uL unknown) (unknown) (no (unknown) (unknown) [place] # (Auto) 400 (units (unknown) date) (0-900) /uL unknown) (unknown) (no (unknown) (unknown) [place] % (Auto) (units ( unknown) date) (3-14) % unknown) (unknown) (no (unknown) (unknown) [place] % (Auto) 6.1 (units (unknown) date) (3-14) % unknown) (unknown) (no (unknown) (unknown) Morphine Sulfate (units (unknown) date) (Morphine 2 Mg/Ml unknown) Inj) 2 mg IV NOW ONE (unknown) (no (unknown) (unknown) Neut # (Auto) (units ( unknown) date) (4955-1814) /uL unknown) (unknown) (no (unknown) (unknown) Neut # (Auto) 6200 (units (unknown) date) (7009-2444) /uL unknown) (unknown) (no (unknown) (unknown) Neut [...] (unknown) Patient: (units (unkno wn) date) Carmina Shukla unknown) MR#: (unknown) (no (unknown) (unknown) Penicillins [...] (unknown) (unknown) Urine Specific (units (unknown) date) [place] 1.030 unknown) (unknown) (no (unknown) (unknown) Vital [...] (units (unkno wn) date) unknown) Result panel 692 (unknown) (no date) (unknown) (unknown) 0.018 ng/ml (unkn own) (unknown) (no date) (unknown) (unknown) 0.018 ng/ml (unkn own) Result panel 693 (unknown) (no (unknown) (unknown) (no value) (units [...] (unknown) (unknown) : 1985 (units (unknown) date) Acct:[id number] unknown) (unknown) (no (unknown) (unknown) Date of [...] date) Signs: unknown) (unknown) (no (unknown) (unknown) [facility] (units (unknown) date) [address] unknown) [place] [address] (unknown) (no (unknown) (unknown) Lab Data (units [...] (unknown) Lymph # (Auto) (units (unknown) date) (5376-7877) /uL unknown) (unknown) (no (unknown) (unknown) Lymph # (Auto) 500 (units (unknown) date) L (2784-0046) /uL unknown) (unknown) (no (unknown) (unknown) Lymph % (Auto) (units (unknown) date) (25-40) % unknown) (unknown) (no (unknown) (unknown) Lymph % (Auto) 7.4 (units (unknown) date) L (25-40) % unknown) (unknown) (no (unknown) (unknown) [id number] (units (unk nown) date) unknown) (unknown) (no [...] date) Ambulatory unknown) (unknown) (no (unknown) (unknown) [place] # (Auto) (units ( unknown) date) (0-900) /uL unknown) (unknown) (no (unknown) (unknown) [place] # (Auto) 400 (units (unknown) date) (0-900) /uL unknown) (unknown) (no (unknown) (unknown) [place] % (Auto) (units ( unknown) date) (3-14) % unknown) (unknown) (no (unknown) (unknown) [place] % (Auto) 6.1 (units (unknown) date) (3-14) % unknown) (unknown) (no (unknown) (unknown) Morphine Sulfate (units (unknown) date) (Morphine 2 Mg/Ml unknown) Inj) 2 mg IV NOW ONE (unknown) (no (unknown) (unknown) Neut # (Auto) (units ( unknown) date) (6626-8474) /uL unknown) (unknown) (no (unknown) (unknown) Neut # (Auto) 6200 (units (unknown) date) (4151-5875) /uL unknown) (unknown) (no (unknown) (unknown) Neut [...] (unknown) Patient: (units (unkno wn) date) Carmina Shukla unknown) MR#: (unknown) (no (unknown) (unknown) Penicillins [...] (unknown) (unknown) Urine Specific (units (unknown) date) [place] 1.030 unknown) (unknown) (no (unknown) (unknown) Vital [...] (units (unkno wn) date) unknown) Result panel 694 (unknown) (no (unknown) (unknown) (no value) (units [...] (unknown) (unknown) Accession Number: (units (unknown) date) [id number] ?? unknown) (unknown) (no (unknown) (unknown) Acct:[id number] (units (unknown) date) unknown) (unknown) (no (unknown) [...] (unknown) (unknown) : 1985 (units (unknown) date) Acct:[id number] unknown) (unknown) (no (unknown) (unknown) : 1985 (units (unknown) date) unknown) (unknown) (no (unknown) (unknown) Date of Service: (units (unknown) date) 03/24/22 unknown) (unknown) (no (unknown) (unknown) Departure (units (unkn own) date) unknown) (unknown) (no (unknown) (unknown) Depression (units (unk nown) date) unknown) (unknown) (no (unknown) (unknown) Dictated by: Juarez (units (unknown) date) Jsoe Fatima on unknown) 03/24/2022 at 21:23 ? [...] date) Signs: unknown) (unknown) (no (unknown) (unknown) [facility] (units (unknown) date) [address] unknown) [place] [address] (unknown) (no (unknown) (unknown) Lab Data (units [...] (unknown) Lymph # (Auto) (units (unknown) date) (4614-3978) /uL unknown) (unknown) (no (unknown) (unknown) Lymph # (Auto) 500 (units (unknown) date) L (8495-3982) /uL unknown) (unknown) (no (unknown) (unknown) Lymph % (Auto) (units (unknown) date) (25-40) % unknown) (unknown) (no (unknown) (unknown) Lymph % (Auto) 7.4 (units (unknown) date) L (25-40) % unknown) (unknown) (no (unknown) (unknown) [id number] (units (unk nown) date) unknown) (unknown) (no [...] date) unknown) (unknown) (no (unknown) (unknown) MR#: [id number] (units (unknown) date) unknown) (unknown) (no (unknown) [...] date) Ambulatory unknown) (unknown) (no (unknown) (unknown) [place] # (Auto) (units ( unknown) date) (0-900) /uL unknown) (unknown) (no (unknown) (unknown) [place] # (Auto) 400 (units (unknown) date) (0-900) /uL unknown) (unknown) (no (unknown) (unknown) [place] % (Auto) (units ( unknown) date) (3-14) % unknown) (unknown) (no (unknown) (unknown) [place] % (Auto) 6.1 (units (unknown) date) (3-14) % unknown) (unknown) (no (unknown) (unknown) Morphine Sulfate (units (unknown) date) (Morphine 2 Mg/Ml unknown) Inj) 2 mg IV NOW ONE (unknown) (no (unknown) (unknown) Morphine Sulfate (units (unknown) date) (Morphine 4 Mg/Ml unknown) Inj) 4 mg IV NOW ONE (unknown) (no (unknown) (unknown) NEUROLOGICAL: (units ( unknown) date) Alert and oriented unknown) x4. Pelletising Extruder Operator strength equal bilaterally moving all (unknown) (no (unknown) (unknown) Neut # (Auto) (units ( unknown) date) (8261-9663) /uL unknown) (unknown) (no (unknown) (unknown) Neut # (Auto) 6200 (units (unknown) date) (6973-8865) /uL unknown) (unknown) (no (unknown) (unknown) Neut [...] (unknown) Patient: (units (unkno wn) date) Carmina Shukla unknown) MR#: (unknown) (no (unknown) (unknown) Patient: (units (unkno wn) date) Carmina Shukla unknown) (unknown) (no (unknown) (unknown) Penicillins (units [...] (unknown) (unknown) Urine Specific (units (unknown) date) [place] 1.030 unknown) (unknown) (no (unknown) (unknown) Ventricles [...] mA and/or kV according to Result panel 695 (unknown) (no (unknown) (unknown) (no value) (units (unk nown) date) unknown) (unknown) (no (unknown) (unknown) *Continue to take (units (unknown) date) medications as unknown) directed (unknown) (no (unknown) (unknown) *Follow up with (units (unknown) date) your primary care unknown) provider in 2-3 days or call [phone] (unknown) (no (unknown) (unknown) *Return to ER [...] (unknown) (unknown) Accession Number: (units (unknown) date) [id number] ?? unknown) (unknown) (no (unknown) (unknown) Accession Number: (units (unknown) date) [id number] ?? unknown) (unknown) (no (unknown) (unknown) Acct:[id number] (units (unknown) date) unknown) (unknown) (no (unknown) [...] (unknown) Blood Pressure (units (unknown) date) 91/66 23 unknown) 18:50 (unknown) (no (unknown) (unknown) Blood Pressure (units (unknown) date) 118/73 118/73 unknown) (unknown) (no (unknown) (unknown) Blood Pressure (units (unknown) date) unknown) (unknown) (no (unknown) (unknown) Bones and chest (units (unknown) date) wall:? No unknown) suspicious bony lesions.? Overlying soft tissues (unknown) (no (unknown) (unknown) Brain:? No midline (units (unknown) date) shift.? No unknown) intracranial masses or hemorrhage.? Luek-white (unknown) (no (unknown) (unknown) CARDIOVASCULAR: (units (unknown) [...] (unknown) (unknown) COMPARISON:? (units (u nknown) date) [facility], unknown) CR, XR CHEST 1V, 03/05/2022, 10:32.? [...] (unknown) (unknown) : 1985 (units (unknown) date) Acct:[id number] unknown) (unknown) (no (unknown) (unknown) : 1985 [...] for Migraine unknown) (unknown) (no (unknown) (unknown) [facility] (units (unknown) date) [address] [place] [address] unknown) [place] [address] (unknown) (no (unknown) (unknown) Lab Data (units [...] (unknown) Last Admin: (units (un known) date) 02/11/23 21:09 unknown) Dose: 2 mg (unknown) (no [...] (unknown) Lymph # (Auto) (units (unknown) date) (7225-4907) /uL unknown) (unknown) (no (unknown) (unknown) Lymph # (Auto) 500 (units (unknown) date) L (5547-9447) /uL unknown) (unknown) (no (unknown) (unknown) Lymph % (Auto) (units (unknown) date) (25-40) % unknown) (unknown) (no (unknown) (unknown) Lymph % (Auto) 7.4 (units (unknown) date) L (25-40) % unknown) (unknown) (no (unknown) (unknown) [id number] (units (unk nown) date) unknown) (unknown) (no [...] date) unknown) (unknown) (no (unknown) (unknown) MR#: [id number] (units (unknown) date) unknown) (unknown) (no (unknown) [...] date) Ambulatory unknown) (unknown) (no (unknown) (unknown) [place] # (Auto) (units ( unknown) date) (0-900) /uL unknown) (unknown) (no (unknown) (unknown) [place] # (Auto) 400 (units (unknown) date) (0-900) /uL unknown) (unknown) (no (unknown) (unknown) [place] % (Auto) (units ( unknown) date) (3-14) % unknown) (unknown) (no (unknown) (unknown) [place] % (Auto) 6.1 (units (unknown) date) (3-14) % unknown) (unknown) (no (unknown) (unknown) Morphine Sulfate (units (unknown) date) (Morphine 2 Mg/Ml unknown) Inj) 2 mg IV NOW ONE (unknown) (no (unknown) (unknown) Morphine Sulfate (units (unknown) date) (Morphine 4 Mg/Ml unknown) Inj) 4 mg IV NOW ONE (unknown) (no (unknown) (unknown) NEUROLOGICAL: (units ( unknown) date) Alert and oriented unknown) x4. Pelletising Extruder Operator strength equal bilaterally moving all (unknown) (no (unknown) (unknown) Neut # (Auto) (units ( unknown) date) (2683-1754) /uL unknown) (unknown) (no (unknown) (unknown) Neut # (Auto) 6200 (units (unknown) date) (8651-9215) /uL unknown) (unknown) (no (unknown) (unknown) Neut [...] (unknown) Patient: (units (unkno wn) date) Carmina Shukla unknown) MR#: (unknown) (no (unknown) (unknown) Patient: (units (unkno wn) date) Carmina Shukla unknown) (unknown) (no (unknown) (unknown) Penicillins (units [...] (unknown) date) unknown) (unknown) (no (unknown) (unknown) Javier,Wes, HORSER UP (units (unknown) date) [Primary Care unknown) Provider] [...] (unknown) (unknown) Urine Specific (units (unknown) date) [place] 1.030 unknown) (unknown) (no (unknown) (unknown) Ventricles [...] troponins. She is having worst Result panel 696 (unknown) (no (unknown) (unknown) (no value) (units (unk nown) date) unknown) (unknown) (no (unknown) (unknown) <Electronically (units (unknown) date) signed by Danita unknown) Linsey Vila> (unknown) (no (unknown) (unknown) *Continue to take (units (unknown) date) medications as unknown) directed (unknown) (no (unknown) (unknown) *Follow up with (units (unknown) date) your primary care unknown) provider in 2-3 days or call [phone] (unknown) (no (unknown) (unknown) *Return to ER [...] (unknown) (unknown) Accession Number: (units (unknown) date) [id number] ?? unknown) (unknown) (no (unknown) (unknown) Accession Number: (units (unknown) date) [id number] ?? unknown) (unknown) (no (unknown) (unknown) Acct:[id number] (units (unknown) date) unknown) (unknown) (no (unknown) [...] (unknown) (unknown) COMPARISON:? (units (u nknown) date) [facility], unknown) CR, XR CHEST 1V, 03/05/2022, 10:32.? [...] (unknown) (unknown) : 1985 (units (unknown) date) Acct:[id number] unknown) (unknown) (no (unknown) (unknown) : 1985 [...] Sinus rhythm (units (unknown) date) rate 65 VT interval unknown) 124 QRS 94 QTC 397 [...] date) unknown) (unknown) (no (unknown) (unknown) Hospital, CR, (units ( unknown) date) unknown) (unknown) (no [...] (unknown) date) unknown) (unknown) (no (unknown) (unknown) [facility] (units (unknown) date) [address] unknown) [place] [address] (unknown) (no (unknown) (unknown) Lab Data (units [...] (unknown) Lymph # (Auto) (units (unknown) date) (8386-2661) /uL unknown) (unknown) (no (unknown) (unknown) Lymph # (Auto) 500 (units (unknown) date) L (0046-7581) /uL unknown) (unknown) (no (unknown) (unknown) Lymph % (Auto) (units (unknown) date) (25-40) % unknown) (unknown) (no (unknown) (unknown) Lymph % (Auto) 7.4 (units (unknown) date) L (25-40) % unknown) (unknown) (no (unknown) (unknown) [id number] (units (unk nown) date) unknown) (unknown) (no [...] date) unknown) (unknown) (no (unknown) (unknown) MR#: [id number] (units (unknown) date) unknown) (unknown) (no (unknown) [...] date) Ambulatory unknown) (unknown) (no (unknown) (unknown) [place] # (Auto) (units ( unknown) date) (0-900) /uL unknown) (unknown) (no (unknown) (unknown) [place] # (Auto) 400 (units (unknown) date) (0-900) /uL unknown) (unknown) (no (unknown) (unknown) [place] % (Auto) (units ( unknown) date) (3-14) % unknown) (unknown) (no (unknown) (unknown) [place] % (Auto) 6.1 (units (unknown) date) (3-14) % unknown) (unknown) (no (unknown) (unknown) Morphine Sulfate (units (unknown) date) (Morphine 2 Mg/Ml unknown) Inj) 2 mg IV NOW ONE (unknown) (no (unknown) (unknown) Morphine Sulfate (units (unknown) date) (Morphine 4 Mg/Ml unknown) Inj) 4 mg IV NOW ONE (unknown) (no (unknown) (unknown) NEUROLOGICAL: (units ( unknown) date) Alert and oriented unknown) x4. Pelletising Extruder Operator strength equal bilaterally moving all (unknown) (no (unknown) (unknown) Neut # (Auto) (units ( unknown) date) (9276-0058) /uL unknown) (unknown) (no (unknown) (unknown) Neut # (Auto) 6200 (units (unknown) date) (4208-1226) /uL unknown) (unknown) (no (unknown) (unknown) Neut [...] (unknown) Patient: (units (unkno wn) date) Carmina Shukla unknown) MR#: (unknown) (no (unknown) (unknown) Patient: (units (unkno wn) date) Carmina Shukla unknown) (unknown) (no (unknown) (unknown) Penicillins (units [...] (unknown) (unknown) Urine Specific (units (unknown) date) [place] 1.030 unknown) (unknown) (no (unknown) (unknown) Ventricles [...] troponins. She is having worst Result panel 697 (unknown) (no (unknown) (unknown) (no value) (units [...] own) date) unknown) (unknown) (no (unknown) (unknown) [place], [place] (units ( unknown) date) [address] unknown) (unknown) (no (unknown) (unknown) Anxiety (units [...] (unknown) (unknown) : 1985 (units (unknown) date) Acct:[id number] unknown) (unknown) (no (unknown) (unknown) Depression (units [...] wn) date) unknown) (unknown) (no (unknown) (unknown) [id number] (units (unk nown) date) unknown) (unknown) (no [...] (unknown) Patient: (units (unkno wn) date) Carmina Shukla unknown) MR#: (unknown) (no (unknown) (unknown) Penicillins [...] effort is unknown) made to edit content, finished goods planner errors (unknown) (no (unknown) (unknown) tabs 04/05/18 [Rx (units (unknown) date) Confirmed 03/26/22] unknown) Result panel 698 (unknown) (no (unknown) (unknown) (no value) (units [...] to unknown) establish here.? She lives in [place], (unknown) (no (unknown) (unknown) Age/Sex: 36 / F (units (unknown) date) Date of Service: unknown) (unknown) (no (unknown) (unknown) Allergies (units (unkn own) date) unknown) (unknown) (no (unknown) (unknown) [place] [address] (unit s (unknown) date) unknown) (unknown) (no [...] (unknown) (unknown) : 1985 (units (unknown) date) Acct:[id number] unknown) (unknown) (no (unknown) (unknown) Depression (units [...] wn) date) unknown) (unknown) (no (unknown) (unknown) [id number] (units (unk nown) date) unknown) (unknown) (no [...] (unknown) Patient: (units (unkno wn) date) Carmina Shukla unknown) MR#: (unknown) (no (unknown) (unknown) Penicillins [...] date) issues unknown) postoperatively.? She saw a echocardiographer in [place] (unknown) (no (unknown) (unknown) expeditiously (units ( [...] date) ?unnecessary open unknown) heart surgery? at [facility] in 2008.? 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 She lives in [place], (unknown) (no (unknown) (unknown) Age/Sex: 36 / F (units (unknown) date) Date of Service: unknown) (unknown) (no (unknown) (unknown) Allergies (units (unkn own) date) unknown) (unknown) (no (unknown) (unknown) [place] [address] (unit s (unknown) date) unknown) (unknown) (no [...] (unknown) (unknown) : 1985 (units (unknown) date) Acct:[id number] unknown) (unknown) (no (unknown) (unknown) Depression (units [...] wn) date) unknown) (unknown) (no (unknown) (unknown) [id number] (units (unk nown) date) unknown) (unknown) (no [...] (unknown) (unknown) Patient: (units (unkno wn) date) JonathanCarmina Kenneth unknown) MR#: (unknown) (no (unknown) (unknown) [...] date) issues unknown) postoperatively.? She saw a echocardiographer in [place] (unknown) (no (unknown) (unknown) expeditiously (units ( [...] surgery unknown) 2008. (unknown) (no (unknown) (unknown) patient care 3/3 (units (unknown) date) unknown) (unknown) (no [...] date) ?unnecessary open unknown) heart surgery? at [facility] in 2008.? 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 She lives in [place], (unknown) (no (unknown) (unknown) Age/Sex: 36 / F (units (unknown) date) Date of Service: unknown) (unknown) (no (unknown) (unknown) Allergies (units (unkn own) date) unknown) (unknown) (no (unknown) (unknown) [place] [address] (unit s (unknown) date) unknown) (unknown) (no [...] (unknown) (unknown) : 1985 (units (unknown) date) Acct:[id number] unknown) (unknown) (no (unknown) (unknown) Depression (units [...] wn) date) unknown) (unknown) (no (unknown) (unknown) [id number] (units (unk nown) date) unknown) (unknown) (no [...] (unknown) (unknown) Patient: (units (unkno wn) date) JonathanCarmina A unknown) MR#: (unknown) (no (unknown) (unknown) [...] wn) date) unknown) (unknown) (no (unknown) (unknown) [place] with her (unit s (unknown) date) and [...] date) issues unknown) postoperatively.? She saw a echocardiographer in [place] (unknown) (no (unknown) (unknown) expeditiously (units ( [...] surgery unknown) 2008. (unknown) (no (unknown) (unknown) patient care 3/3 (units (unknown) date) unknown) (unknown) (no [...] date) ?unnecessary open unknown) heart surgery? at [facility] in 2008.? 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 She lives in [place], (unknown) (no (unknown) (unknown) Age/Sex: 36 / F (units (unknown) date) Date of Service: unknown) (unknown) (no (unknown) (unknown) Allergies (units (unkn own) date) unknown) (unknown) (no (unknown) (unknown) [place] [address] (unit s (unknown) date) unknown) (unknown) (no [...] (unknown) (unknown) : 1985 (units (unknown) date) Acct:[id number] unknown) (unknown) (no (unknown) (unknown) Depression (units [...] wn) date) unknown) (unknown) (no (unknown) (unknown) [id number] (units (unk nown) date) unknown) (unknown) (no [...] (unknown) Patient: (units (unkno wn) date) Carmina Shukla unknown) MR#: (unknown) (no (unknown) (unknown) Penicillins [...] date) issues unknown) postoperatively.? She saw a echocardiographer in [place] (unknown) (no (unknown) (unknown) expeditiously (units ( [...] surgery unknown) 2008. (unknown) (no (unknown) (unknown) patient care / (units (unknown) date) unknown) (unknown) (no (unknown) [...] date) ?unnecessary open unknown) heart surgery? at [facility] in 2008.? 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 She lives in [place], (unknown) (no (unknown) (unknown) Age/Sex: 36 / F (units (unknown) date) Date of Service: unknown) (unknown) (no (unknown) (unknown) Allergies (units (unkn own) date) unknown) (unknown) (no (unknown) (unknown) [place] [address] (unit s (unknown) date) unknown) (unknown) (no [...] (unknown) (unknown) : 1985 (units (unknown) date) Acct:[id number] unknown) (unknown) (no (unknown) (unknown) Depression (units [...] wn) date) unknown) (unknown) (no (unknown) (unknown) [id number] (units (unk nown) date) unknown) (unknown) (no [...] (unknown) Patient: (units (unkno wn) date) Carmina Shukla Kenneth unknown) MR#: (unknown) (no (unknown) (unknown) [...] wn) date) unknown) (unknown) (no (unknown) (unknown) [place] with her (unit s (unknown) date) and [...] date) issues unknown) postoperatively.? She saw a echocardiographer in [place] (unknown) (no (unknown) (unknown) expeditiously (units ( [...] surgery unknown) 2008. (unknown) (no (unknown) (unknown) patient care 3/3 (units (unknown) date) unknown) (unknown) (no [...] date) ?unnecessary open unknown) heart surgery? at [facility] in 2008.? 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 She lives in [place], (unknown) (no (unknown) (unknown) Affect: normal (units (unknown) date) affect unknown) (unknown) (no (unknown) (unknown) Age/Sex: 36 / F (units (unknown) date) Date of Service: unknown) (unknown) (no (unknown) (unknown) All systems (units (un known) date) reviewed + are unknown) unremarkable except as noted in HPI and below (unknown) (no (unknown) (unknown) Allergies (units (unkn own) date) unknown) (unknown) (no (unknown) (unknown) [place], [place] (units ( unknown) date) [address] unknown) (unknown) (no (unknown) (unknown) Anxiety (units [...] (unknown) (unknown) : 1985 (units (unknown) date) Acct:[id number] unknown) (unknown) (no (unknown) (unknown) Depression (units [...] wn) date) unknown) (unknown) (no (unknown) (unknown) [id number] (units (unk nown) date) unknown) (unknown) (no [...] (unknown) (unknown) Patient: (units (unkno wn) date) JonathanCarmina A unknown) MR#: (unknown) (no (unknown) (unknown) [...] wn) date) unknown) (unknown) (no (unknown) (unknown) [place] with (units (unknown) date) her and her [...] unknown) agreed to a referral to [facility] (unknown) (no (unknown) (unknown) may occur. 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 704 (unknown) (no (unknown) (unknown) (no value) (units [...] own) date) unknown) (unknown) (no (unknown) (unknown) [place] [address] (unit s (unknown) date) unknown) (unknown) (no [...] (unknown) (unknown) : 1985 (units (unknown) date) Acct:[id number] unknown) (unknown) (no (unknown) (unknown) Depression (units [...] wn) date) unknown) (unknown) (no (unknown) (unknown) [id number] (units (unk nown) date) unknown) (unknown) (no [...] (unknown) Patient: (units (unkno wn) date) Carmina Shukla A unknown) MR#: (unknown) (no (unknown) (unknown) [...] effort is made unknown) to edit content, finished goods planner errors (unknown) (no (unknown) (unknown) sumatriptan (units [...] decreased the use of rescue Result panel 705 (unknown) (no (unknown) (unknown) (no value) (units (unk nown) date) unknown) (unknown) (no (unknown) (unknown) (category d (units (un known) date) unknown) (unknown) (no (unknown) (unknown) />75% glandular (units (unknown) date) tissue). unknown) (unknown) (no (unknown) (unknown) 04/02/22 (units (unkno wn) date) unknown) (unknown) (no (unknown) (unknown) [address] [place] [address] (units (unknown) date) unknown) (unknown) (no (unknown) (unknown) 15% of breast (units ( unknown) date) malignancies will unknown) not be visualized mammographically. In the (unknown) (no (unknown) (unknown) 7.0% and her 10 (units (unknown) date) year risk is unknown) 0.6%. According to the ACR, ACS, and NCCN (unknown) (no (unknown) (unknown) : [id number] (units (u nknown) date) unknown) (unknown) (no (unknown) (unknown) ACR BI-RADS (units (un known) date) Category 0: unknown) Incomplete 3340F (unknown) (no (unknown) (unknown) [facility]ERRER[facility] (units (u nknown) date) unknown) (unknown) (no (unknown) (unknown) Accession (units (unkn own) date) Number: unknown) [id number] (unknown) (no (unknown) (unknown) Accession (units (unkn own) date) Number: unknown) [id number] (unknown) (no (unknown) (unknown) Accession (units (unkn own) date) Number: unknown) [id number] (unknown) (no (unknown) (unknown) Age/Sex: 36 / F (units (unknown) date) Date of Service: unknown) (unknown) (no (unknown) (unknown) [place] (units ( unknown) date) [address] unknown) (unknown) (no (unknown) (unknown) Approved by: [...] exam unknown) dated: 04/02/2022 mammogram - [facility]. (unknown) (no (unknown) (unknown) Continued Report (units (unknown) date) - Page 2 of 2 unknown) (unknown) (no (unknown) (unknown) : 1985 (units (unknown) date) Acct:[id number] unknown) (unknown) (no (unknown) (unknown) Date: 04/04/2022 (units (unknown) date) 16:09 unknown) (unknown) (no (unknown) (unknown) Dictated by: (units (u nknown) date) pilar Russell M.D. on 04/04/2022 at 16:02 (unknown) (no (unknown) (unknown) Doppler (units (unkno wn) date) ultrasound o unknown) (unknown) (no (unknown) (unknown) Electronically (units (unknown) date) Signed By: Dean long) Dolores Ortiz M.D. (unknown) (no (unknown) (unknown) FINDINGS: [...] nknown) date) unknown) (unknown) (no (unknown) (unknown) [facility] (units (unknown) date) unknown) (unknown) (no (unknown) [...] (unknown) Patient: (units (unkno wn) date) Carmina Shukla unknown) Kenneth MR# (unknown) (no (unknown) (unknown) [...] (unknown) CARMINA Cooper (units (un known) date) SUHKLA unknown) (unknown) (no (unknown) (unknown) Signed (units [...] (unknown) (no (unknown) (unknown) Ultrasound (units (unk n) date) Report unknown) (unknown) (no (unknown) (unknown) a palpable (units (unk n) date) breast mass, a unknown) negative mammogram [...] reviewed. (units (unknown) date) unknown) Result panel 706 (unknown) (no date) (unknown) (unknown) (no value) (units (un known) unknown) (unknown) (no date) (unknown) (unknown) [address]units ([address] n[address]) [address] unknown) (unknown) (no date) (unknown) (unknown) : [id number] (units ( unknown) unknown) (unknown) (no date) (unknown) (unknown) Accession (units (unk nown) Number: unknown) (unknown) (no date) (unknown) (unknown) Age/Sex: 36 / (units (unknown) F Date of unknown) Service: (unknown) (no date) (unknown) (unknown) [place], [place] (units (unknown) [address] unknown) (unknown) (no date) (unknown) (unknown) Approved by: (units ( unknown) Dean unknown) Jose Ortiz on 04/04/2022 at 16:08 (unknown) (no date) (unknown) (unknown) COMPARISON: (units (u nknown) None. unknown) (unknown) (no date) (unknown) (unknown) Cancelled (units (unk nown) unknown) (unknown) (no date) (unknown) (unknown) : (units (unkn own) 1985 unknown) Acct:[id number] (unknown) (no date) (unknown) (unknown) Dictated by: (units ( unknown) Dean unknown) Jose Ortiz on 04/04/2022 at 16:02 (unknown) (no date) [...] (unknown) (unknown) Patient: (units (unkn own) David Shukla unknown) ie A MR# (unknown) (no date) (unknown) (unknown) Procedure: (units (un known) unknown) (unknown) (no date) (unknown) (unknown) Ultrasound (units (un known) Report unknown) Result panel 707 (unknown) (no (unknown) (unknown) (no value) (units [...] own) date) unknown) (unknown) (no (unknown) (unknown) [place], [place] (units ( unknown) date) [address] unknown) (unknown) (no (unknown) (unknown) Anxiety (units [...] (unknown) (unknown) : 1985 (units (unknown) date) Acct:[id number] unknown) (unknown) (no (unknown) (unknown) Depression (units [...] (unknown) Intake performed (units (unknown) date) by: Татьняа Llanes unknown) (unknown) (no (unknown) (unknown) Intake [...] wn) date) unknown) (unknown) (no (unknown) (unknown) [id number] (units (unk nown) date) unknown) (unknown) (no [...] (unknown) Patient: (units (unkno wn) date) Carmina Shukla unknown) MR#: (unknown) (no (unknown) (unknown) Penicillins [...] effort is unknown) made to edit content, finished goods planner errors (unknown) (no (unknown) (unknown) sumatriptan (units (unk nown) date) succinate 50 mg unknown) tablet (Imitrex) See Rx Instructions PO .COMPLEX #10 (unknown) (no (unknown) (unknown) tabs 03/26/22 [Rx (units (unknown) date) Confirmed 04/09/22] unknown) (unknown) (no (unknown) (unknown) tabs 04/05/18 [Rx (units (unknown) date) Confirmed 04/09/22] unknown) Result panel 708 (unknown) (no (unknown) (unknown) (no value) (units [...] own) date) unknown) (unknown) (no (unknown) (unknown) [place], [place] (units ( unknown) date) [address] unknown) (unknown) (no (unknown) (unknown) Anxiety (units [...] (unknown) (unknown) : 1985 (units (unknown) date) Acct:[id number] unknown) (unknown) (no (unknown) (unknown) Depression (units [...] wn) date) unknown) (unknown) (no (unknown) (unknown) [id number] (units (unk nown) date) unknown) (unknown) (no [...] (unknown) Patient: (units (unkno wn) date) Carmina Shukla unknown) MR#: (unknown) (no (unknown) (unknown) Penicillins [...] effort is unknown) made to edit content, finished goods planner errors (unknown) (no (unknown) (unknown) sumatriptan (units (unk nown) date) succinate 50 mg unknown) tablet (Imitrex) See Rx Instructions PO .COMPLEX #10 (unknown) (no (unknown) (unknown) tabs 03/26/22 [Rx (units (unknown) date) Confirmed 04/09/22] unknown) (unknown) (no (unknown) (unknown) tabs 04/05/18 [Rx (units (unknown) date) Confirmed 04/09/22] unknown) Result panel 709 (unknown) (no (unknown) (unknown) (no value) (units [...] own) date) unknown) (unknown) (no (unknown) (unknown) [place], [place] (units ( unknown) date) [address] unknown) (unknown) (no (unknown) (unknown) Anxiety (units [...] (unknown) (unknown) : 1985 (units (unknown) date) Acct:[id number] unknown) (unknown) (no (unknown) (unknown) Depression (units [...] wn) date) unknown) (unknown) (no (unknown) (unknown) [id number] (units (unk nown) date) unknown) (unknown) (no [...] (unknown) Patient: (units (unkno wn) date) Carmina Shukla unknown) MR#: (unknown) (no (unknown) (unknown) Penicillins [...] effort is unknown) made to edit content, finished goods planner errors (unknown) (no (unknown) (unknown) specific (units [...] weeks. Depending on response to today's treatment, Result panel 710 (unknown) (no (unknown) (unknown) (no value) (units (unk nown) date) unknown) (unknown) (no (unknown) (unknown) 05/24/22 (units (unkno wn) date) unknown) (unknown) (no (unknown) (unknown) 10:29) (units (unkno wn) date) unknown) (unknown) (no (unknown) (unknown) 36 Y/O Female (units ( unknown) date) presents today for unknown) Acupuncture (unknown) (no (unknown) (unknown) Age/Sex: 36 / F (units (unknown) date) Date of Service: unknown) (unknown) (no (unknown) (unknown) Allergies (units (unkn own) date) unknown) (unknown) (no (unknown) (unknown) [place], [place] (units ( unknown) date) [address] unknown) (unknown) (no (unknown) (unknown) Anxiety (units (unkno wn) date) unknown) (unknown) (no (unknown) (unknown) Asthma (units (unkno wn) date) unknown) (unknown) (no (unknown) (unknown) Attending Dr: (units ( unknown) date) Wes SCOTT unknown) (unknown) (no (unknown) (unknown) : 1985 (units (unknown) date) Acct:[id number] unknown) (unknown) (no (unknown) (unknown) Depression (units (unk nown) date) unknown) (unknown) (no (unknown) (unknown) Dept at (units (unkno wn) date) . unknown) (unknown) (no (unknown) (unknown) Documented By: (units (unknown) date) Wes Herrera unknown) 05/24/22 1029 (unknown) (no (unknown) (unknown) Draft (units (unkno [...] date) surgery unknown) (unknown) (no (unknown) (unknown) History [...] wn) date) unknown) (unknown) (no (unknown) (unknown) [id number] (units (unk nown) date) unknown) (unknown) (no (unknown) (unknown) Medical History (units (unknown) date) (Reviewed 04/15/22 unknown) @ 09:01 by TYLER Mckeon) (unknown) (no (unknown) (unknown) Mild persistent (units (unknown) date) asthma unknown) (unknown) (no (unknown) (unknown) Other Menstrual (units (unknown) date) Period: Other unknown) (unknown) (no (unknown) (unknown) PFSH (units (unkno wn) date) unknown) (unknown) (no (unknown) (unknown) Patient: (units (unkno wn) date) JonathanCarmina Kenneth unknown) MR#: (unknown) (no (unknown) (unknown) Penicillins (units (un known) date) Allergy unknown) (Intermediate, Verified 05/24/22 10:29) (unknown) (no (unknown) (unknown) Pertussis Vaccines (units (unknown) date) [PERTUSSIS unknown) VACCINES] Allergy (Unknown, Verified 05/24/22 (unknown) (no (unknown) (unknown) Rash (units (unkno [...] (unknown) (unknown) Visit Reasons: (units (unknown) date) Acupuncture 04 unknown) (unknown) (no (unknown) (unknown) amoxicillin (units (un known) date) Allergy unknown) (Intermediate, Verified 05/24/22 10:29) (unknown) (no (unknown) (unknown) azithromycin (units (u nknown) date) Allergy unknown) (Intermediate, Verified 05/24/22 10:29) (unknown) (no (unknown) (unknown) ciprofloxacin (units ( unknown) date) Allergy unknown) (Intermediate, Verified 05/24/22 10:29) (unknown) (no (unknown) (unknown) gluten Adverse (units (unknown) date) Reaction (Mild, unknown) Verified 05/24/22 10:29) (unknown) (no (unknown) (unknown) have occurred. If (units (unknown) date) there are any unknown) questions, please contact the Medical Records (unknown) (no (unknown) (unknown) household members: (units (unknown) date) spouse and children unknown) (unknown) (no (unknown) (unknown) hydromorphone (units ( unknown) date) Allergy (Mild, unknown) Verified 05/24/22 10:29) (unknown) (no (unknown) (unknown) ibuprofen Allergy (units (unknown) date) (Mild, Verified unknown) 05/24/22 10:29) (unknown) (no (unknown) (unknown) may occur. (units (unk nown) date) Occasional unknown) wrong-word or 'sound-alike' substitutions may have (unknown) (no (unknown) (unknown) nickel Adverse (units (unknown) date) Reaction (Mild, unknown) Verified 05/24/22 10:29) (unknown) (no (unknown) (unknown) occurred due to (units (unknown) date) the inherent unknown) limitations of voice recognition software. Please (unknown) (no (unknown) (unknown) read the note (units ( unknown) date) carefully and unknown) recognize, using context, where these substitutions (unknown) (no (unknown) (unknown) software. Although (units (unknown) date) every effort is unknown) made to edit content, finished goods planner errors Result panel 711 (unknown) (no (unknown) (unknown) (no value) (units (unk nown) date) unknown) (unknown) (no (unknown) (unknown) 05/24/22 (units (unkno wn) date) unknown) (unknown) (no (unknown) (unknown) 05/24/22] (units (unkn own) date) unknown) (unknown) (no (unknown) (unknown) 10:29) (units (unkno wn) date) unknown) (unknown) (no (unknown) (unknown) 10:35 (units (unkno wn) date) unknown) (unknown) (no (unknown) (unknown) 36 Y/O Female (units ( unknown) date) presents today for unknown) Acupuncture (unknown) (no (unknown) (unknown) Age/Sex: 36 / F (units (unknown) date) Date of Service: unknown) (unknown) (no (unknown) (unknown) Allergies (units (unkn own) date) unknown) (unknown) (no (unknown) (unknown) [place] (units ( unknown) date) [id number] unknown) (unknown) (no (unknown) (unknown) Anxiety (units (unkno wn) date) unknown) (unknown) (no (unknown) (unknown) Asthma (units (unkno wn) date) unknown) (unknown) (no (unknown) (unknown) Attending Dr: (units ( unknown) date) Wes SCOTT unknown) (unknown) (no (unknown) (unknown) BMI 20.2 (units (unkno wn) date) unknown) (unknown) (no (unknown) (unknown) BP 102/74 (units (unkn own) date) unknown) (unknown) (no (unknown) (unknown) Blood Pressure (units (unknown) date) Location Lt unknown) brachial (unknown) (no (unknown) (unknown) Confirmed (units (unkn own) date) 05/24/22] unknown) (unknown) (no (unknown) (unknown) : 1985 (units (unknown) date) Acct:[id number] unknown) (unknown) (no (unknown) (unknown) Depression (units (unk nown) date) unknown) (unknown) (no (unknown) (unknown) Dept at (units (unkno wn) date) . unknown) (unknown) (no (unknown) (unknown) Documented By: (units (unknown) date) Wes Herrera unknown) 05/24/22 1029 (unknown) (no (unknown) (unknown) Draft (units (unkno [...] BID #12 unknown) grams 03/13/22 [Rx Confirmed 05/24/22] (unknown) (no (unknown) (unknown) Height 5 ft [...] wn) date) unknown) (unknown) (no (unknown) (unknown) [id number] (units (unk nown) date) unknown) (unknown) (no [...] (unknown) Patient: (units (unkno wn) date) Carmina Shukla unknown) MR#: (unknown) (no (unknown) (unknown) Penicillins (units (un known) date) Allergy unknown) (Intermediate, Verified 05/24/22 10:29) (unknown) (no (unknown) (unknown) Pertussis Vaccines (units (unknown) date) [PERTUSSIS unknown) VACCINES] Allergy (Unknown, Verified 05/24/22 (unknown) (no (unknown) (unknown) Position Sitting (units (unknown) date) unknown) (unknown) (no (unknown) (unknown) Pulse 70 (units (unkno wn) date) unknown) (unknown) (no [...] (unknown) (unknown) Visit Reasons: (units (unknown) date) Acupuncture 04 unknown) (unknown) (no (unknown) (unknown) Vitals (units (unkno wn) date) unknown) (unknown) (no (unknown) (unknown) Weight 114 lb 2 oz (units (unknown) date) unknown) (unknown) (no (unknown) (unknown) albuterol sulfate (units (unknown) date) 90 mcg/actuation unknown) aerosol inhaler (ProAir HFA) 1 puff (unknown) (no (unknown) (unknown) amoxicillin (units (un known) date) Allergy unknown) (Intermediate, Verified 05/24/22 10:29) (unknown) (no (unknown) (unknown) azithromycin (units (u nknown) date) Allergy unknown) (Intermediate, Verified 05/24/22 10:29) (unknown) (no (unknown) (unknown) ciprofloxacin (units ( unknown) date) Allergy unknown) (Intermediate, Verified 05/24/22 10:29) (unknown) (no (unknown) (unknown) fluticasone (units (un known) date) propionate 230 unknown) mcg-salmeterol 21 mcg/actuation HFA inhaler (Advair (unknown) (no (unknown) (unknown) gluten Adverse (units (unknown) date) Reaction (Mild, unknown) Verified 05/24/22 10:29) (unknown) (no (unknown) (unknown) have occurred. If (units (unknown) date) there are any unknown) questions, please contact the Medical Records (unknown) (no (unknown) (unknown) household members: (units (unknown) date) spouse and children unknown) (unknown) (no (unknown) (unknown) hydromorphone (units ( unknown) date) Allergy (Mild, unknown) Verified 05/24/22 10:29) (unknown) (no (unknown) (unknown) ibuprofen Allergy (units (unknown) date) (Mild, Verified unknown) 05/24/22 10:29) (unknown) (no (unknown) (unknown) inhalation Q6H PRN [...] (units (unknown) date) Reaction (Mild, unknown) Verified 05/24/22 10:29) (unknown) (no (unknown) (unknown) occurred due to [...] effort is unknown) made to edit content, finished goods planner errors (unknown) (no (unknown) (unknown) sumatriptan (units (unk nown) date) succinate 50 mg unknown) tablet (Imitrex) See Rx Instructions PO .COMPLEX #10 (unknown) (no (unknown) (unknown) tabs 03/26/22 [Rx (units (unknown) date) Confirmed 05/24/22] unknown) (unknown) (no (unknown) (unknown) tabs 04/05/18 [Rx (units (unknown) date) Confirmed 05/24/22] unknown) Result panel 712 (unknown) (no (unknown) (unknown) (no value) (units (unk nown) date) unknown) (unknown) (no (unknown) (unknown) 05/24/22 (units (unkno wn) date) unknown) (unknown) (no (unknown) (unknown) 05/24/22] (units (unkn own) date) unknown) (unknown) (no (unknown) (unknown) 10:29) (units (unkno wn) date) unknown) (unknown) (no (unknown) (unknown) 10:35 (units (unkno wn) date) unknown) (unknown) (no (unknown) (unknown) 36 Y/O Female (units ( unknown) date) presents today for unknown) Acupuncture (unknown) (no (unknown) (unknown) Age/Sex: 36 / F (units (unknown) date) Date of Service: unknown) (unknown) (no (unknown) (unknown) Allergies (units (unkn own) date) unknown) (unknown) (no (unknown) (unknown) [place], [place] (units ( unknown) date) [id number] unknown) (unknown) (no (unknown) (unknown) Anxiety (units (unkno wn) date) unknown) (unknown) (no (unknown) (unknown) Asthma (units (unkno wn) date) unknown) (unknown) (no (unknown) (unknown) Attending Dr: (units ( unknown) date) Wes SCOTT unknown) (unknown) (no (unknown) (unknown) BMI 20.2 (units (unkno wn) date) unknown) (unknown) (no (unknown) (unknown) BP 102/74 (units (unkn own) date) unknown) (unknown) (no (unknown) (unknown) Blood Pressure (units (unknown) date) Location Lt unknown) brachial (unknown) (no (unknown) (unknown) Confirmed (units (unkn own) date) 05/24/22] unknown) (unknown) (no (unknown) (unknown) : 1985 (units (unknown) date) Acct:[id number] unknown) (unknown) (no (unknown) (unknown) Depression (units (unk nown) date) unknown) (unknown) (no (unknown) (unknown) Dept at (units (unkno wn) date) . unknown) (unknown) (no (unknown) (unknown) Details: (units (unkno wn) date) unknown) (unknown) (no (unknown) (unknown) Documented By: (units (unknown) date) Wes Herrera unknown) 05/24/22 1029 (unknown) (no (unknown) (unknown) Draft (units (unkno [...] BID #12 unknown) grams 03/13/22 [Rx Confirmed 05/24/22] (unknown) (no (unknown) (unknown) HPI (units (unkno [...] wn) date) unknown) (unknown) (no (unknown) (unknown) [id number] (units (unk nown) date) unknown) (unknown) (no [...] (unknown) Patient: (units (unkno wn) date) Carmina Shukla Kenneth unknown) MR#: (unknown) (no (unknown) (unknown) Penicillins (units (un known) date) Allergy unknown) (Intermediate, Verified 05/24/22 10:29) (unknown) (no (unknown) (unknown) Pertussis Vaccines (units (unknown) date) [PERTUSSIS unknown) VACCINES] Allergy (Unknown, Verified 05/24/22 (unknown) (no (unknown) (unknown) Position Sitting (units (unknown) date) unknown) (unknown) (no (unknown) (unknown) Pulse 70 (units (unkno wn) date) unknown) (unknown) (no [...] (unknown) (unknown) Visit Reasons: (units (unknown) date) Acupuncture 04 unknown) (unknown) (no (unknown) (unknown) Vitals (units (unkno wn) date) unknown) (unknown) (no (unknown) (unknown) Weight 51.766 kg (units (unknown) date) unknown) (unknown) (no (unknown) (unknown) albuterol sulfate (units (unknown) date) 90 mcg/actuation unknown) aerosol inhaler (ProAir HFA) 1 puff (unknown) (no (unknown) (unknown) amoxicillin (units (un known) date) Allergy unknown) (Intermediate, Verified 05/24/22 10:29) (unknown) (no (unknown) (unknown) azithromycin (units (u nknown) date) Allergy unknown) (Intermediate, Verified 05/24/22 10:29) (unknown) (no (unknown) (unknown) ciprofloxacin (units ( unknown) date) Allergy unknown) (Intermediate, Verified 05/24/22 10:29) (unknown) (no (unknown) (unknown) fluticasone (units (un known) date) propionate 230 unknown) mcg-salmeterol 21 mcg/actuation HFA inhaler (Advair (unknown) (no (unknown) (unknown) gluten Adverse (units (unknown) date) Reaction (Mild, unknown) Verified 05/24/22 10:29) (unknown) (no (unknown) (unknown) have occurred. If (units (unknown) date) there are any unknown) questions, please contact the Medical Records (unknown) (no (unknown) (unknown) household members: (units (unknown) date) spouse and children unknown) (unknown) (no (unknown) (unknown) hydromorphone (units ( unknown) date) Allergy (Mild, unknown) Verified 05/24/22 10:29) (unknown) (no (unknown) (unknown) ibuprofen Allergy (units (unknown) date) (Mild, Verified unknown) 05/24/22 10:29) (unknown) (no (unknown) (unknown) inhalation Q6H PRN [...] (units (unknown) date) Reaction (Mild, unknown) Verified 05/24/22 10:29) (unknown) (no (unknown) (unknown) occurred due to [...] where these substitutions (unknown) (no (unknown) (unknown) smiliar tx, 40 (units (unknown) date) needles neutral. unknown) last treatment did help. will schedule more (unknown) (no (unknown) (unknown) software. Although (units (unknown) date) every effort is unknown) made to edit content, finished goods planner errors (unknown) (no (unknown) (unknown) sumatriptan (units (unk nown) date) succinate 50 mg unknown) tablet (Imitrex) See Rx Instructions PO .COMPLEX #10 (unknown) (no (unknown) (unknown) tabs 03/26/22 [Rx (units (unknown) date) Confirmed 05/24/22] unknown) (unknown) (no (unknown) (unknown) tabs 04/05/18 [Rx (units (unknown) date) Confirmed 05/24/22] unknown) (unknown) (no (unknown) (unknown) tx. chest pain and (units (unknown) date) breast tenderness unknown) improving. on antibx for eye infection. (unknown) (no (unknown) (unknown) was upset about me (units (unknown) date) running late unknown) initially but better after we finished. Social History date description facility 2022-03-05 00:00 Ex-smoker (finding) [facility] 2022-03-08 00:00 Ex-smoker (finding) [facility] 2022-03-13 00:00 Ex-smoker (finding) [facility] 2022-03-24 00:00 Ex-smoker (finding) [facility] 2022-03-26 00:00 Ex-smoker (finding) [facility] 2022-04-09 00:00 Ex-smoker (finding) [facility] 2022-05-24 00:00 Ex-smoker (finding) [facility] Vital Signs date measurement value units 2022-03-05 [...] 43.54 kg 2022-03-24 00:00 weight_standard 95.99 lb 2022-03-25 00:00 BP_diastolic 56 mmHg 2022-03-25 00:00 BP_systolic 111 mmHg 2022-03-25 00:00 heart_rate 68 /min 2022-03-25 00:00 o2_saturation 98 % 2022-03-25 00:00 respiration_rate 14 /min 2022-03-25 00:00 temperature_metric 36.22 C 2022-03-25 00:00 temperature_standard 97.2 F 2022-03-26 00:00 BMI 18.5 kg/m2 2022-03-26 00:00 [...] 50.85 kg 2022-04-09 00:00 weight_standard 112.11 lb 2022-05-24 00:00 BMI 20.2 kg/m2 2022-05-24 00:00 BP_diastolic 74 mmHg 2022-05-24 00:00 BP_systolic 102 mmHg 2022-05-24 00:00 heart_rate 70 /min 2022-05-24 00:00 height_metric 160.02 cm 2022-05-24 00:00 height_standard 63 in 2022-05-24 00:00 o2_saturation 98 % 2022-05-24 00:00 weight_metric 51.76 kg 2022-05-24 00:00 weight_standard 114.11 lb
[2022-05-26] MEDS ORDERED: PROPARACAINE 0.5% OPHTH DROPS 15 ML RIGHTEYE STA (12:19)
[2022-05-26] MEDS ORDERED: LIDOCAINE 1% 2 ML VIAL SUBQ STA (12:20)
[2022-05-26] MEDS ORDERED: HYDROcod/ACETAM 5/325 MG TABLET PO STA (12:40)
--- NOTE | 2022-05-26 12:41 | ED Physician Documentation ---
PD HPI OPHTHO - Stated complaint Stated Complaint: RT EYE SWELLING - Chief complaint Chief Complaint: Heent - History obtained from History obtained from: Patient - History of Present Illness Timing - onset: How many days ago (4) Timing - duration: Days (4) Timing - details: Gradual onset, Still present Location: Right Quality / character: Throbbing, Sharp Associated symptoms: Redness, Swelling. No: Decreased vision, Loss of vision Contributing factors: Other (has had a hordeolum 2 days ago) Similar symptoms before: No diagnosis Recently seen: Emergency Dept - Additional information Additional information: Carmina Castillo is a 36-year-old female who was seen in the emergency department 2 days ago for swelling her right eyelid. She has been placed on some antibiotic and despite this she is having an increase in her symptoms of pain and swelling. She is now had intolerable pain to her right eyelid. Review of Systems Constitutional: denies: Fever Eyes: reports: Irritation, Other (Marked eyelid swelling and pain). 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 : None HEENT: None Psych: Anxiety, Post traumatic stress disorder Musculoskeletal: Scoliosis, Other Derm: None - Past Surgical History Past Surgical History: Yes Ortho: Shoulder arthroplasty /GROMMET MACHINE OPERATOR: Hysterectomy Cardiovascular: Other - Present Medications Home Medications: Ambulatory Orders Medication Instructions Recorded Confirmed HYDROcod/ACETAM 5/325 [[place] 5/325] 1 - 2 tab PO Q6H PRN #15 tablet 05/23/22 05/26/22 cephALEXin [Keflex] 500 mg PO Q6H #28 cap 05/23/22 05/26/22 Albuterol Sulfate [Proair 1 - 2 puffs IH Q6H PRN 05/26/22 05/26/22 Digihaler] Fluticasone/Salmeterol [Advair Hfa 2 puffs IH DAILY 05/26/22 05/26/22 230-21 Mcg Inhaler] - Allergies Allergies/Adverse Reactions: Allergies Allergy/AdvReac Type Severity Reaction Status Date / Time amoxicillin [Amoxicillin] Allergy Severe throat Verified 05/26/22 11:03 swells Penicillins Allergy Severe Hives Verified 05/26/22 11:03 pertussis vaccine,adsorbed Allergy Severe seizures Verified 05/26/22 11:03 [Pertussis Vaccine,Adsorbed] NSAIDS (Non-Steroidal Allergy Nausea Verified 05/26/22 11:03 Anti-Inflamma ciprofloxacin [From Cipro] AdvReac Intermediate Cramps Verified 05/26/22 11:03 oxycodone HCl * AdvReac Mild Nausea Verified 05/26/22 11:03 [From Percocet] diphtheria, pertussis, AdvReac Unknown Verified 05/26/22 11:03 tetanus vacc haloperidol [From Haldol] AdvReac Visual Verified 05/26/22 11:03 disturbance meperidine HCl * AdvReac Itching Verified 05/26/22 11:03 [From Demerol] - Social History Does the pt smoke?: No Smoking Status: Never smoker Does the pt drink ETOH?: No Does the pt have substance abuse?: No - Immunizations Immunizations are current?: Yes - POLST Patient has POLST: No PD ED PE NORMAL - Vitals Vital signs reviewed: Yes (Normal) - General General: Alert and oriented X 3, Well developed/nourished, Other (The pain appears patient appears to be in pain with an obvious swelling to the right eyelid that is standing out from her eye about 7 or 8 mm.) - HEENT HEENT: Atraumatic, PERRL, EOMI, Other (The right eyelid is swollen laterally there is a palpable tender mass that is fluctuant. The eyelid is everted and there is erythema and swelling specifically to the right half of the eyelid. There is no drainage.) - Neck Neck: Supple, no meningeal sign, No bony TTP - Respiratory Respiratory: No respiratory distress - Derm Derm: Normal color, Warm and dry, No rash - Extremities Extremities: No deformity, No edema - Neuro Neuro: Alert and oriented X 3, ground equipment mechanic 2-12 intact, No motor deficit, No sensory deficit, Normal speech Eye Opening: Spontaneous Motor: Obeys Commands Verbal: Oriented GCS Score: 15 - Psych Psych: Normal mood, Normal affect Results - Vitals Vitals: Vital Signs - 24 hr 05/26/22 10:59 Temperature 98.6 C H Heart Rate 60 Respiratory 16 Rate Blood Pressure 119/69 O2 Saturation 100 Oxygen O2 Source Room air Procedures - Abscess I&D (location) Right eye Preparation: Lidocaine 1%, Other (Proparacaine instilled to the right eye) Incision: Incised with scalpel, Purulent drainage, Culture obtained Other: Pt tolerated well, Antibiotic prescribed PD Medical Decision Making - ED course Complexity details: considered differential, d/w patient, d/w software consultant (I consulted Dr. Escalante who recommended a vertical incision through the nabothian gland and expression of pus.) ED course: 36-year-old female placed on antibiotics 2 days ago for swelling in her right eyelid has a progression of her symptoms despite this and now appears to have an abscess that is ripe for incision and drainage. An infrequent procedure performed in the emergency department, I consulted the print finishing worker. Dr. Escalante, who recommended an vertical incision to avoid incising the levator and drainage of pus. This worked well with immediate relief of pain to the patient. She will continue her antibiotic and expect continued improvement Departure - Departure Disposition: 01 Home, Self Care Clinical Impression: Hordeolum internum of right eye Qualifiers: Eyelid: upper Qualified Code(s): H00.021 - Hordeolum internum right upper eyelid Condition: Stable Instructions: ED Hordeolum Follow-Up: Wes Herrera ARNP [Primary Care Provider] - Pako Escalante MD [Provider Admit Priv/Credential] - Comments: Carmina today it looks like the abscess in your eyelid has ripened and we were able to successfully incise and drain it. My recommendation is to continue to use a warm compress to your eyelid and encourage any drainage. Bleeding should stop within the day. If you have worsening of this despite our treatment today a follow-up with Dr. Escalante is indicated and I have given you his telephone number. Continue the antibiotics previously prescribed. A culture is pending.
[2022-05-26 13:05] VITALS: BP 120/62
== END 2022-05-26 13:05 | disposition home or self-care (01) ==
LOC: ED 10:43
DX: H00.021 Hordeolum internum right upper eyelid (principal); Z79.51 Long term (current) use of inhaled steroids; Z79.899 Other long term (current) drug therapy
CPT/HCPCS: 67700; 87070; 87205; 99283; A9270; J3490

== ENCOUNTER 2022-06-26 10:14 | Emergency (ER) | payer MEDICAID ==
--- OUTSIDE RECORDS SUMMARY | 2022-06-26 10:52 | EXTERNAL MEDICAL SUMMARY RPT | Continuity of Care Document ---
Author Name Unknown Address [address] [place] [address] Phone Organization [facility] Address [address] [place] [address] Phone Care Team Providers Care Car Rental Clerk Name Role Phone Daniel Ghosh Unavailable Unavailable Allergies and Intolerances date description facility type (no date) [facility] (unknown) Medications date description facility 2022-06-07 00:00 Ondansetron [facility] 2022-05-27 00:00 Albuterol Sulfate [facility] Problems date description facility 2022-04-02 12:05 Unspecified lump in the right breast, unspecified [facility] 2022-04-02 12:05 [facility] 2022-04-02 12:05 Abnormal findings on diagnostic imaging of other specified [facility] 2022-04-02 15:28 Unspecified lump in the right breast, unspecified [facility] 2022-04-02 15:28 [facility] 2022-04-02 15:28 Abnormal findings on diagnostic imaging of other specified [facility] Procedures date description facility 2022-04-02 00:00 Diagnostic mammography of both breasts [facility] 2022-04-02 00:00 US breast left [facility] 2022-04-02 00:00 US breast right [facility] Results/Labs test date author facility value unit interpretation Result panel 1 (unknown) (no date) (unknown) (unknown) (no value) (units unknown) (unknown) (unknown) (no date) (unknown) (unknown) 03/26/22 (units unknown) (unknown) (unknown) (no date) (unknown) (unknown) 03/26/22] (units unknown) (unknown) (unknown) (no date) (unknown) (unknown) 11:39) (units unknown) (unknown) (unknown) (no date) (unknown) (unknown) 11:41 (units unknown) (unknown) (unknown) (no date) (unknown) (unknown) 36 yo female p resents today for 2 week f/u asthma and multiple issues (units unknown) (unknown) (unknown) (no date) (unknown) (unknown) 36-year-old fe male presents to establish here.? She lives in [place], (units unknown) (unknown) (unknown) (no date) (unknown) (unknown) Age/Sex: 36 / F Date of Service: (units unknown) (unknown) (unknown) (no date) (unknown) (unknown) Allergies (units unknown) (unknown) (unknown) (no date) (unknown) (unknown) [place] [address] (units unknown) (unknown) (unknown) (no date) (unknown) (unknown) Anxiety (units unknown) (unknown) (unknown) (no date) (unknown) (unknown) Assessment + Plan (u nits unknown) (unknown) (unknown) (no date) (unknown) (unknown) Asthma (units unknown) (unknown) (unknown) (no date) (unknown) (unknown) Attending Dr: Wes SCOTT (units unknown) (unknown) (unknown) (no date) (unknown) (unknown) BMI 18.5 (units unknown) (unknown) (unknown) (no date) (unknown) (unknown) BP 97/57 L (units unknown) (unknown) (unknown) (no date) (unknown) (unknown) Blood Pressure Location Rt radial (units unknown) (unknown) (unknown) (no date) (unknown) (unknown) CT chest abdom en pelvis which showed multiple pulmonary nodules, all 3 mL or (units unknown) (unknown) (unknown) (no date) (unknown) (unknown) Chief Complaint (uni ts unknown) (unknown) (unknown) (no date) (unknown) (unknown) Chief Complain t: f/u multiple issues (units unknown) (unknown) (unknown) (no date) (unknown) (unknown) Confirmed 03/26/22] (units unknown) (unknown) (unknown) (no date) (unknown) (unknown) : 5 Acct:[id number] (units unknown) (unknown) (unknown) (no date) (unknown) (unknown) Depression (units unknown) (unknown) (unknown) (no date) (unknown) (unknown) Dept at . (units unknown) (unknown) (unknown) (no date) (unknown) (unknown) Details: (units unknown) (unknown) (unknown) (no date) (unknown) (unknown) Documented By: Wes Herrera 03/26/22 1138 (units unknown) (unknown) (unknown) (no date) (unknown) (unknown) Draft (units unknown) (unknown) (unknown) (no date) (unknown) (unknown) Family Practic e Office Visit (units unknown) (unknown) (unknown) (no date) (unknown) (unknown) [facility] (units unknown) (unknown) (unknown) (no date) (unknown) (unknown) [place] (units unknown) (unknown) (unknown) (no date) (unknown) (unknown) Gastrointestinal Ups et (units unknown) (unknown) (unknown) (no date) (unknown) (unknown) H/O explorator y laparotomy (units unknown) (unknown) (unknown) (no date) (unknown) (unknown) H/O left knee surger y (units unknown) (unknown) (unknown) (no date) (unknown) (unknown) HFA) 2 puff in halation BID #12 grams 03/13/22 [Rx Confirmed 03/26/22] (units unknown) (unknown) (unknown) (no date) (unknown) (unknown) HPI (units unknown) (unknown) (unknown) (no date) (unknown) (unknown) Height 160.02 cm (un its unknown) (unknown) (unknown) (no date) (unknown) (unknown) History of ope n heart surgery (units unknown) (unknown) (unknown) (no date) (unknown) (unknown) History of surgery ( units unknown) (unknown) (unknown) (no date) (unknown) (unknown) Intake Note: (units unknown) (unknown) (unknown) (no date) (unknown) (unknown) Intake perform ed by: Germaine Bates (units unknown) (unknown) (unknown) (no date) (unknown) (unknown) Intake (units unknown) (unknown) (unknown) (no date) (unknown) (unknown) Intake- Clincial Sta ff (units unknown) (unknown) (unknown) (no date) (unknown) (unknown) Irritation/redness ( units unknown) (unknown) (unknown) (no date) (unknown) (unknown) Kidney infection (un its unknown) (unknown) (unknown) (no date) (unknown) (unknown) L TMJ TTP. L c hest TTP and epigastric ttp. likely tmj issue. schedule for (units unknown) (unknown) (unknown) (no date) (unknown) (unknown) L upper tooth hurting, sensitive. did not think infection, states grinding. (units unknown) (unknown) (unknown) (no date) (unknown) (unknown) Last Menstural Cycle + Details (units unknown) (unknown) (unknown) (no date) (unknown) (unknown) Loc: [facility] (units unknown) (unknown) (unknown) (no date) (unknown) (unknown) [id number] (units unknown) (unknown) (unknown) (no date) (unknown) (unknown) Medical Histor y (units unknown) (unknown) (unknown) (no date) (unknown) (unknown) Medications (units unknown) (unknown) (unknown) (no date) (unknown) (unknown) Medications: (units unknown) (unknown) (unknown) (no date) (unknown) (unknown) Mild persistent asth ma (units unknown) (unknown) (unknown) (no date) (unknown) (unknown) Mild persisten t asthma:? lung exam unremarkable in clinic; however, based on her (units unknown) (unknown) (unknown) (no date) (unknown) (unknown) New (units unknown) (unknown) (unknown) (no date) (unknown) (unknown) Other Menstrua l Period: Other (units unknown) (unknown) (unknown) (no date) (unknown) (unknown) Oxygen Deliver y Method room air (units unknown) (unknown) (unknown) (no date) (unknown) (unknown) PFSH (units unknown) (unknown) (unknown) (no date) (unknown) (unknown) Past medical h istory notable for anxiety and depression, asthma, lumbar (units unknown) (unknown) (unknown) (no date) (unknown) (unknown) Patient has st ruggled with anxiety and depression.? She has been on medication (units unknown) (unknown) (unknown) (no date) (unknown) (unknown) Patient report s that for her asthma she is needing to use her albuterol rescue (units unknown) (unknown) (unknown) (no date) (unknown) (unknown) Patient tells me that she is wary of the medical system ever since she had what (units unknown) (unknown) (unknown) (no date) (unknown) (unknown) Patient was in the ED on March 05.? She presented to the ED with complaint (units unknown) (unknown) (unknown) (no date) (unknown) (unknown) Patient was se en for an ED follow-up last week by Sofia Patino who placed an (units unknown) (unknown) (unknown) (no date) (unknown) (unknown) Patient: Carmina Shukla MR#: (units unknown) (unknown) (unknown) (no date) (unknown) (unknown) Penicillins Al lergy (Intermediate, Verified 03/26/22 11:39) (units unknown) (unknown) (unknown) (no date) (unknown) (unknown) Pertussis Vacc matt [PERTUSSIS VACCINES] Allergy (Unknown, Verified 03/26/22 (units unknown) (unknown) (unknown) (no date) (unknown) (unknown) Position Sitting (un its unknown) (unknown) (unknown) (no date) (unknown) (unknown) Pulse 57 L (units unknown) (unknown) (unknown) (no date) (unknown) (unknown) Pulse Oximetry (%) 9 9 (units unknown) (unknown) (unknown) (no date) (unknown) (unknown) Pulse Source Monitor (units unknown) (unknown) (unknown) (no date) (unknown) (unknown) Rash (units unknown) (unknown) (unknown) (no date) (unknown) (unknown) Rash, throat w as tingly (units unknown) (unknown) (unknown) (no date) (unknown) (unknown) Reason For Visit (un its unknown) (unknown) (unknown) (no date) (unknown) (unknown) Respiration 16 (unit s unknown) (unknown) (unknown) (no date) (unknown) (unknown) S/P laparoscop ic supracervical hysterectomy (04/04/18) (units unknown) (unknown) (unknown) (no date) (unknown) (unknown) Seizure (units unknown) (unknown) (unknown) (no date) (unknown) (unknown) Signed By: (units unknown) (unknown) (unknown) (no date) (unknown) (unknown) Smoking Status : Former smoker (units unknown) (unknown) (unknown) (no date) (unknown) (unknown) Social History (unit s unknown) (unknown) (unknown) (no date) (unknown) (unknown) Stomach pain, nausea, headache (units unknown) (unknown) (unknown) (no date) (unknown) (unknown) Surgical Histo ry (units unknown) (unknown) (unknown) (no date) (unknown) (unknown) This note may have been all or partially generated using voice recognition (units unknown) (unknown) (unknown) (no date) (unknown) (unknown) Tobacco + Subs tance Use (units unknown) (unknown) (unknown) (no date) (unknown) (unknown) Tobacco Status (unit s unknown) (unknown) (unknown) (no date) (unknown) (unknown) Visit Reasons: 2wk f/u asthma/multiple issues 02 (units unknown) (unknown) (unknown) (no date) (unknown) (unknown) Vitals (units unknown) (unknown) (unknown) (no date) (unknown) (unknown) Sai heath her and her 3 kids ages 6, 11, 17.? 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 omeprazole, robaxin, imitrex. f/u at (units unknown) (unknown) (unknown) (no date) (unknown) (unknown) acupuncture visits. (units unknown) (unknown) (unknown) (no date) (unknown) (unknown) after the surg gary she had sternal wires removed due to 1 having snapped.? She (units unknown) (unknown) (unknown) (no date) (unknown) (unknown) albuterol sulf ate 90 mcg/actuation aerosol inhaler (ProAir HFA) 1 puff (units unknown) (unknown) (unknown) (no date) (unknown) (unknown) amoxicillin Al lergy (Intermediate, Verified 03/26/22 11:39) (units unknown) (unknown) (unknown) (no date) (unknown) (unknown) and she would like to undergo psychotherapy again. (units unknown) (unknown) (unknown) (no date) (unknown) (unknown) around 2019; i t is unclear whether she needs to be seen by Cardiology for (units unknown) (unknown) (unknown) (no date) (unknown) (unknown) azithromycin A llergy (Intermediate, Verified 03/26/22 11:39) (units unknown) (unknown) (unknown) (no date) (unknown) (unknown) back in august. not sure if this is related to VIDALES. (units unknown) (unknown) (unknown) (no date) (unknown) (unknown) benefit from additional time off of work to recover.? We agreed that we will (units unknown) (unknown) (unknown) (no date) (unknown) (unknown) branches.? (units unknown) (unknown) (unknown) (no date) (unknown) (unknown) ciprofloxacin Allergy (Intermediate, Verified 03/26/22 11:39) (units unknown) (unknown) (unknown) (no date) (unknown) (unknown) denies any alfa oing issues postoperatively.? She saw a calculating machine operator in [place] (units unknown) (unknown) (unknown) (no date) (unknown) (unknown) expeditiously performed.? She states that ultimately the abnormality which was (units unknown) (unknown) (unknown) (no date) (unknown) (unknown) fluticasone pr opionate 230 mcg-salmeterol 21 mcg/actuation HFA inhaler (Advair (units unknown) (unknown) (unknown) (no date) (unknown) (unknown) gluten Adverse Reaction (Mild, Verified 03/26/22 11:39) (units unknown) (unknown) (unknown) (no date) (unknown) (unknown) had to call ou t of work and feels that due to multiple ongoing issues she would (units unknown) (unknown) (unknown) (no date) (unknown) (unknown) has mammo/us 04/02 (u nits unknown) (unknown) (unknown) (no date) (unknown) (unknown) have occurred. If there are any questions, please contact the Medical Records (units unknown) (unknown) (unknown) (no date) (unknown) (unknown) household memb ers: spouse and children (units unknown) (unknown) (unknown) (no date) (unknown) (unknown) hydromorphone Allergy (Mild, Verified 03/26/22 11:39) (units unknown) (unknown) (unknown) (no date) (unknown) (unknown) ibuprofen Jeffrey rgy (Mild, Verified 03/26/22 11:39) (units unknown) (unknown) (unknown) (no date) (unknown) (unknown) in the past bu t these have not helped; she felt that psychotherapy has helped (units unknown) (unknown) (unknown) (no date) (unknown) (unknown) indicated.? Tr ial Advair.? Patient is also still recovering from viral URI which (units unknown) (unknown) (unknown) (no date) (unknown) (unknown) inhalation Q6H PRN Adequate Ventilation #8.5 grams 03/08/22 [Rx Confirmed (units unknown) (unknown) (unknown) (no date) (unknown) (unknown) inhaler 2-3 ti mes daily.? She has had asthma for many years.? She is been on (units unknown) (unknown) (unknown) (no date) (unknown) (unknown) led to echocar diogram being performed.? She reports there was concern for an (units unknown) (unknown) (unknown) (no date) (unknown) (unknown) less with no e vidence of acute process.? Patient has already been referred to (units unknown) (unknown) (unknown) (no date) (unknown) (unknown) maintenance in [facility] in the past; she recalls being on Flovent which she felt did (units unknown) (unknown) (unknown) (no date) (unknown) (unknown) may occur. Occ asional wrong-word or 'sound-alike' substitutions may have (units unknown) (unknown) (unknown) (no date) (unknown) (unknown) may repeat 1 t ab after at least 2 hrs; max = 4 tabs/24 hr PO 10 tabs 3RF (units unknown) (unknown) (unknown) (no date) (unknown) (unknown) methocarbamol 750 mg PO QID PRN 30 tabs 2RF muscle spasm (units unknown) (unknown) (unknown) (no date) (unknown) (unknown) methocarbamol 750 mg tablet 750 mg PO QID PRN muscle spasm #30 tabs 03/26/22 [Rx (units unknown) (unknown) (unknown) (no date) (unknown) (unknown) monitoring. (units unknown) (unknown) (unknown) (no date) (unknown) (unknown) movement hurts chest . (units unknown) (unknown) (unknown) (no date) (unknown) (unknown) nickel Adverse Reaction (Mild, Verified 03/26/22 11:39) (units unknown) (unknown) (unknown) (no date) (unknown) (unknown) not work very well.? She is not sure what other inhalers she has tried. (units unknown) (unknown) (unknown) (no date) (unknown) (unknown) occurred due t o the inherent limitations of voice recognition software. Please (units unknown) (unknown) (unknown) (no date) (unknown) (unknown) of chest pain, cough, sternal pain, bilateral breast lumps.? At the ED she had a (units unknown) (unknown) (unknown) (no date) (unknown) (unknown) omeprazole 20 mg PO BID 60 caps 0RF (units unknown) (unknown) (unknown) (no date) (unknown) (unknown) omeprazole 20 mg capsule,delayed release 20 mg PO BID #60 caps 03/26/22 [Rx (units unknown) (unknown) (unknown) (no date) (unknown) (unknown) ondansetron 4 mg disintegrating tablet 4 mg PO QID PRN nausea and vomiting #14 (units unknown) (unknown) (unknown) (no date) (unknown) (unknown) order for a three-month follow-up CT chest. ?Bilateral diagnostic mammogram and (units unknown) (unknown) (unknown) (no date) (unknown) (unknown) pulmonary nodu emily, open heart surgery 2009. 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 (units unknown) (unknown) (unknown) (no date) (unknown) (unknown) read the note carefully and recognize, using context, where these substitutions (units unknown) (unknown) (unknown) (no date) (unknown) (unknown) recommend 2 we eks off from work and she will see me for follow-up visit in 2 (units unknown) (unknown) (unknown) (no date) (unknown) (unknown) report of freq uency of use of rescue inhaler a maintenance medication is (units unknown) (unknown) (unknown) (no date) (unknown) (unknown) she describes as ?unnecessary open heart surgery? at [place] [facility] in 2008.? She (units unknown) (unknown) (unknown) (no date) (unknown) (unknown) software. Alth ough every effort is made to edit content, top lift nailer errors (units unknown) (unknown) (unknown) (no date) (unknown) (unknown) spondylosis, spondylolisthesis at L4-5, lumbar radiculopathy, esophageal spasm, (units unknown) (unknown) (unknown) (no date) (unknown) (unknown) states that a provider heard an abnormal sound when listening to her heart which (units unknown) (unknown) (unknown) (no date) (unknown) (unknown) still chest pa in [place]. some tooth pain. [place]. (units unknown) (unknown) (unknown) (no date) (unknown) (unknown) sumatriptan garcia ccinate (Imitrex) take 1 tab at onset of headache; if no relief (units unknown) (unknown) (unknown) (no date) (unknown) (unknown) sumatriptan garcia ccinate 50 mg tablet (Imitrex) See Rx Instructions PO .COMPLEX #10 (units unknown) (unknown) (unknown) (no date) (unknown) (unknown) tabs 03/26/22 [Rx Confirmed 03/26/22] (units unknown) (unknown) (unknown) (no date) (unknown) (unknown) tabs 04/05/18 [Rx Confirmed 03/26/22] (units unknown) (unknown) (unknown) (no date) (unknown) (unknown) thought to be present based on the echocardiogram was not present.? Six months (units unknown) (unknown) (unknown) (no date) (unknown) (unknown) time as a serv er at [employer]; however, she is looking for a new job which (units unknown) (unknown) (unknown) (no date) (unknown) (unknown) took 2 excedri ns for chest pain. then got nauseous, significant VIDALES. (units unknown) (unknown) (unknown) (no date) (unknown) (unknown) ultrasound wer e already ordered. ?Ms. Patino performed a breast exam at that (units unknown) (unknown) (unknown) (no date) (unknown) (unknown) visit and enco uraged the patient to schedule imaging as ordered. (units unknown) (unknown) (unknown) (no date) (unknown) (unknown) vomiting after ED visit, none in past 2 days. (units unknown) (unknown) (unknown) (no date) (unknown) (unknown) was part of th e cluster of symptoms with which she presented to the ED. she has (units unknown) (unknown) (unknown) (no date) (unknown) (unknown) weeks.? Contac t us sooner for any problems.? (units unknown) (unknown) (unknown) (no date) (unknown) (unknown) would be lower in stress.? 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 (units unknown) (unknown) Result panel 2 (unknown) (no date) (unknown) (unknown) (no value) (units unknown) (unknown) (unknown) (no date) (unknown) (unknown) (1) Pulmonary nodule : (units unknown) (unknown) (unknown) (no date) (unknown) (unknown) (2) Mild persi stent asthma: (units unknown) (unknown) (unknown) (no date) (unknown) (unknown) (3) Bilateral breast lump: (units unknown) (unknown) (unknown) (no date) (unknown) (unknown) 03/26/22 (units unknown) (unknown) (unknown) (no date) (unknown) (unknown) 03/26/22] (units unknown) (unknown) (unknown) (no date) (unknown) (unknown) 11:39) (units unknown) (unknown) (unknown) (no date) (unknown) (unknown) 11:41 (units unknown) (unknown) (unknown) (no date) (unknown) (unknown) 36 yo female p resents today for 2 week f/u asthma and multiple issues (units unknown) (unknown) (unknown) (no date) (unknown) (unknown) 36-year-old fe male presents for a 2 week follow-up on multiple issues.? As it (units unknown) (unknown) (unknown) (no date) (unknown) (unknown) 36-year-old fe male presents to establish here.? She lives in [place], (units unknown) (unknown) (unknown) (no date) (unknown) (unknown) Affect: normal affec t (units unknown) (unknown) (unknown) (no date) (unknown) (unknown) Age/Sex: 36 / F Date of Service: (units unknown) (unknown) (unknown) (no date) (unknown) (unknown) All systems re viewed + are unremarkable except as noted in HPI and below (units unknown) (unknown) (unknown) (no date) (unknown) (unknown) Allergies (units unknown) (unknown) (unknown) (no date) (unknown) (unknown) [place] [id number] (units unknown) (unknown) (unknown) (no date) (unknown) (unknown) Anxiety (units unknown) (unknown) (unknown) (no date) (unknown) (unknown) Anxiety/depres rosario: Patient states that she has tried to find a therapist (units unknown) (unknown) (unknown) (no date) (unknown) (unknown) Appearance: gr ossly normal (units unknown) (unknown) (unknown) (no date) (unknown) (unknown) Assessment + Plan (u nits unknown) (unknown) (unknown) (no date) (unknown) (unknown) Asthma complic ation type: uncomplicated Qualified Code(s): J45.30 (units unknown) (unknown) (unknown) (no date) (unknown) (unknown) Asthma (units unknown) (unknown) (unknown) (no date) (unknown) (unknown) At the last vi sit we agreed to start the patient on Advair due to her (units unknown) (unknown) (unknown) (no date) (unknown) (unknown) Attending Dr: Wes SCOTT (units unknown) (unknown) (unknown) (no date) (unknown) (unknown) Attitude: cooperativ e (units unknown) (unknown) (unknown) (no date) (unknown) (unknown) Auscultation: clear to auscultation bilaterally (units unknown) (unknown) (unknown) (no date) (unknown) (unknown) BMI 18.5 (units unknown) (unknown) (unknown) (no date) (unknown) (unknown) BP 97/57 L (units unknown) (unknown) (unknown) (no date) (unknown) (unknown) Blood Pressure Location Rt radial (units unknown) (unknown) (unknown) (no date) (unknown) (unknown) Breast tendern ess and lumps: Patient reminded to schedule mammogram and (units unknown) (unknown) (unknown) (no date) (unknown) (unknown) CT was negativ e.? She was diagnosed with migraine for which she was given (units unknown) (unknown) (unknown) (no date) (unknown) (unknown) Cardio (units unknown) (unknown) (unknown) (no date) (unknown) (unknown) Chest (units unknown) (unknown) (unknown) (no date) (unknown) (unknown) Chief Complaint (uni ts unknown) (unknown) (unknown) (no date) (unknown) (unknown) Chief Complain t: f/u multiple issues (units unknown) (unknown) (unknown) (no date) (unknown) (unknown) Cognition: nor mal cognition (units unknown) (unknown) (unknown) (no date) (unknown) (unknown) Confirmed 03/26/22] (units unknown) (unknown) (unknown) (no date) (unknown) (unknown) Const (units unknown) (unknown) (unknown) (no date) (unknown) (unknown) : 5 Acct:[id number] (units unknown) (unknown) (unknown) (no date) (unknown) (unknown) Depression (units unknown) (unknown) (unknown) (no date) (unknown) (unknown) Dept at . (units unknown) (unknown) (unknown) (no date) (unknown) (unknown) Details: (units unknown) (unknown) (unknown) (no date) (unknown) (unknown) Diffuse TTP le ft chest wall. (units unknown) (unknown) (unknown) (no date) (unknown) (unknown) Diffuse TTP ov er left TMJ. Able to open and close jaw normally with apparent (units unknown) (unknown) (unknown) (no date) (unknown) (unknown) Documented By: Wes Herrera 03/26/22 1138 (units unknown) (unknown) (unknown) (no date) (unknown) (unknown) Draft (units unknown) (unknown) (unknown) (no date) (unknown) (unknown) EKG was perfor med which initially appeared abnormal but leads were moved and (units unknown) (unknown) (unknown) (no date) (unknown) (unknown) Effort + Inspe ction: normal respiratory effort (units unknown) (unknown) (unknown) (no date) (unknown) (unknown) Exam (units unknown) (unknown) (unknown) (no date) (unknown) (unknown) Extrem (units unknown) (unknown) (unknown) (no date) (unknown) (unknown) Eyes (units unknown) (unknown) (unknown) (no date) (unknown) (unknown) Family Practic e Office Visit (units unknown) (unknown) (unknown) (no date) (unknown) (unknown) April 02. ? Pulmonology visit scheduled April 13.? Notes that movement (units unknown) (unknown) (unknown) (no date) (unknown) (unknown) [facility] (units unknown) (unknown) (unknown) (no date) (unknown) (unknown) [place] (units unknown) (unknown) (unknown) (no date) (unknown) (unknown) GI (units unknown) (unknown) (unknown) (no date) (unknown) (unknown) Gait: normal gait (u nits unknown) (unknown) (unknown) (no date) (unknown) (unknown) Gastrointestinal Ups et (units unknown) (unknown) (unknown) (no date) (unknown) (unknown) General: appea raven normal, both eyes and all related structures (units unknown) (unknown) (unknown) (no date) (unknown) (unknown) General: coope rative and no acute distress (units unknown) (unknown) (unknown) (no date) (unknown) (unknown) General: no ra shes or lesions noted (units unknown) (unknown) (unknown) (no date) (unknown) (unknown) General: jt l to inspection and no edema (units unknown) (unknown) (unknown) (no date) (unknown) (unknown) General: patie nt alert, patient awake and patient oriented x3 (units unknown) (unknown) (unknown) (no date) (unknown) (unknown) H/O explorator y laparotomy (units unknown) (unknown) (unknown) (no date) (unknown) (unknown) H/O left knee surger y (units unknown) (unknown) (unknown) (no date) (unknown) (unknown) HENMT (units unknown) (unknown) (unknown) (no date) (unknown) (unknown) HFA) 2 puff in halation BID #12 grams 03/13/22 [Rx Confirmed 03/26/22] (units unknown) (unknown) (unknown) (no date) (unknown) (unknown) HPI (units unknown) (unknown) (unknown) (no date) (unknown) (unknown) Head: normal t o inspection (units unknown) (unknown) (unknown) (no date) (unknown) (unknown) Heart Sounds: S1 normal, S2 normal, normal S1 and S2 and no murmurs (units unknown) (unknown) (unknown) (no date) (unknown) (unknown) Height 160.02 cm (un its unknown) (unknown) (unknown) (no date) (unknown) (unknown) History of ope n heart surgery (units unknown) (unknown) (unknown) (no date) (unknown) (unknown) History of surgery ( units unknown) (unknown) (unknown) (no date) (unknown) (unknown) Inspection: no rmal to inspection (units unknown) (unknown) (unknown) (no date) (unknown) (unknown) Intake Note: (units unknown) (unknown) (unknown) (no date) (unknown) (unknown) Intake perform ed by: Germaine Bates (units unknown) (unknown) (unknown) (no date) (unknown) (unknown) Intake (units unknown) (unknown) (unknown) (no date) (unknown) (unknown) Intake- Clincial Sta ff (units unknown) (unknown) (unknown) (no date) (unknown) (unknown) Irritation/redness ( units unknown) (unknown) (unknown) (no date) (unknown) (unknown) Judgment: judg ment good (units unknown) (unknown) (unknown) (no date) (unknown) (unknown) Kidney infection (un its unknown) (unknown) (unknown) (no date) (unknown) (unknown) L TMJ TTP. L c hest TTP and epigastric ttp. likely tmj issue. schedule for (units unknown) (unknown) (unknown) (no date) (unknown) (unknown) L upper tooth hurting, sensitive. did not think infection, states grinding. (units unknown) (unknown) (unknown) (no date) (unknown) (unknown) Last Menstural Cycle + Details (units unknown) (unknown) (unknown) (no date) (unknown) (unknown) Loc: [facility] (units unknown) (unknown) (unknown) (no date) (unknown) (unknown) [id number] (units unknown) (unknown) (unknown) (no date) (unknown) (unknown) Medical Histor y (units unknown) (unknown) (unknown) (no date) (unknown) (unknown) Medications (units unknown) (unknown) (unknown) (no date) (unknown) (unknown) Medications: (units unknown) (unknown) (unknown) (no date) (unknown) (unknown) Mental Status: mental status grossly normal (units unknown) (unknown) (unknown) (no date) (unknown) (unknown) Mild persistent asth ma (units unknown) (unknown) (unknown) (no date) (unknown) (unknown) Mild persisten t asthma, uncomplicated (units unknown) (unknown) (unknown) (no date) (unknown) (unknown) Mild persisten t asthma: lung exam unremarkable in clinic; however, based on her (units unknown) (unknown) (unknown) (no date) (unknown) (unknown) Mood: congruent mood (units unknown) (unknown) (unknown) (no date) (unknown) (unknown) Neck mass: No (units unknown) (unknown) (unknown) (no date) (unknown) (unknown) Neck (units unknown) (unknown) (unknown) (no date) (unknown) (unknown) Neck: normal v isual inspection and no lymphadenopathy (units unknown) (unknown) (unknown) (no date) (unknown) (unknown) Neuro (units unknown) (unknown) (unknown) (no date) (unknown) (unknown) New (units unknown) (unknown) (unknown) (no date) (unknown) (unknown) On March 24 she took 2 OTC Excedrin tabs for the chest pain.? Thereafter (units unknown) (unknown) (unknown) (no date) (unknown) (unknown) Other Menstrua l Period: Other (units unknown) (unknown) (unknown) (no date) (unknown) (unknown) Other: (units unknown) (unknown) (unknown) (no date) (unknown) (unknown) Oxygen Deliver y Method room air (units unknown) (unknown) (unknown) (no date) (unknown) (unknown) PFSH (units unknown) (unknown) (unknown) (no date) (unknown) (unknown) Palpation: sof t, no hepatosplenomegaly, no guarding, no hernias, no masses and (units unknown) (unknown) (unknown) (no date) (unknown) (unknown) Patient has vidales d pain localized to the left TMJ area.? Believes that she grinds (units unknown) (unknown) (unknown) (no date) (unknown) (unknown) Patient: JonathanCarmina Cooper MR#: (units unknown) (unknown) (unknown) (no date) (unknown) (unknown) Penicillins Al lergy (Intermediate, Verified 03/26/22 11:39) (units unknown) (unknown) (unknown) (no date) (unknown) (unknown) Percussion: no rmal to percussion (units unknown) (unknown) (unknown) (no date) (unknown) (unknown) Pertussis Vacc matt [PERTUSSIS VACCINES] Allergy (Unknown, Verified 03/26/22 (units unknown) (unknown) (unknown) (no date) (unknown) (unknown) Plan (units unknown) (unknown) (unknown) (no date) (unknown) (unknown) Position Sitting (un its unknown) (unknown) (unknown) (no date) (unknown) (unknown) Psych (units unknown) (unknown) (unknown) (no date) (unknown) (unknown) Psychiatry Dep artment; she understands that it will be a wait to see a therapist (units unknown) (unknown) (unknown) (no date) (unknown) (unknown) Pulmonary nodu les: Maintain plan for follow-up chest CT in 3 months and (units unknown) (unknown) (unknown) (no date) (unknown) (unknown) Pulse 57 L (units unknown) (unknown) (unknown) (no date) (unknown) (unknown) Pulse Oximetry (%) 9 9 (units unknown) (unknown) (unknown) (no date) (unknown) (unknown) Pulse Source Monitor (units unknown) (unknown) (unknown) (no date) (unknown) (unknown) Qualifiers: (units unknown) (unknown) (unknown) (no date) (unknown) (unknown) ROS (units unknown) (unknown) (unknown) (no date) (unknown) (unknown) Rash (units unknown) (unknown) (unknown) (no date) (unknown) (unknown) Rash, throat w as tingly (units unknown) (unknown) (unknown) (no date) (unknown) (unknown) Rate: regular rate ( units unknown) (unknown) (unknown) (no date) (unknown) (unknown) Reason For Visit (un its unknown) (unknown) (unknown) (no date) (unknown) (unknown) Resp (units unknown) (unknown) (unknown) (no date) (unknown) (unknown) Respiration 16 (unit s unknown) (unknown) (unknown) (no date) (unknown) (unknown) Rhythm: regular rhyt hm (units unknown) (unknown) (unknown) (no date) (unknown) (unknown) S/P laparoscop ic supracervical hysterectomy (04/04/18) (units unknown) (unknown) (unknown) (no date) (unknown) (unknown) Seizure (units unknown) (unknown) (unknown) (no date) (unknown) (unknown) She does shan[place] to experience left chest pain.? Has her mammogram scheduled on (units unknown) (unknown) (unknown) (no date) (unknown) (unknown) Signed By: (units unknown) (unknown) (unknown) (no date) (unknown) (unknown) Skin (units unknown) (unknown) (unknown) (no date) (unknown) (unknown) Smoking Status : Former smoker (units unknown) (unknown) (unknown) (no date) (unknown) (unknown) Social History (unit s unknown) (unknown) (unknown) (no date) (unknown) (unknown) Speech: speech jt l (units unknown) (unknown) (unknown) (no date) (unknown) (unknown) Status: Acute (units unknown) (unknown) (unknown) (no date) (unknown) (unknown) Status: Inactive (un its unknown) (unknown) (unknown) (no date) (unknown) (unknown) Stomach pain, nausea, headache (units unknown) (unknown) (unknown) (no date) (unknown) (unknown) Surgical Histo ry (units unknown) (unknown) (unknown) (no date) (unknown) (unknown) This note may have been all or partially generated using voice recognition (units unknown) (unknown) (unknown) (no date) (unknown) (unknown) Thought Conten t: normal (units unknown) (unknown) (unknown) (no date) (unknown) (unknown) Thought Proces s: normal (units unknown) (unknown) (unknown) (no date) (unknown) (unknown) Thyroid: thyro id normal (units unknown) (unknown) (unknown) (no date) (unknown) (unknown) Tobacco + Subs tance Use (units unknown) (unknown) (unknown) (no date) (unknown) (unknown) Tobacco Status (unit s unknown) (unknown) (unknown) (no date) (unknown) (unknown) Tylenol, Zofra n, fluids, morphine and ultimately discharge.? She had vomiting (units unknown) (unknown) (unknown) (no date) (unknown) (unknown) Visit Reasons: 2wk f/u asthma/multiple issues 02 (units unknown) (unknown) (unknown) (no date) (unknown) (unknown) Vitals (units unknown) (unknown) (unknown) (no date) (unknown) (unknown) [place] wit h her and her 3 kids ages 6, 11, 17.? 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 omeprazole, robaxin, imitrex. f/u at (units unknown) (unknown) (unknown) (no date) (unknown) (unknown) acupuncture visits. (units unknown) (unknown) (unknown) (no date) (unknown) (unknown) after the ED v isit but none after that day. (units unknown) (unknown) (unknown) (no date) (unknown) (unknown) albuterol sulf ate 90 mcg/actuation aerosol inhaler (ProAir HFA) 1 puff (units unknown) (unknown) (unknown) (no date) (unknown) (unknown) amoxicillin Al lergy (Intermediate, Verified 03/26/22 11:39) (units unknown) (unknown) (unknown) (no date) (unknown) (unknown) and that this psychotherapy program would be short-term only. (units unknown) (unknown) (unknown) (no date) (unknown) (unknown) azithromycin A llergy (Intermediate, Verified 03/26/22 11:39) (units unknown) (unknown) (unknown) (no date) (unknown) (unknown) back in august. not sure if this is related to VIDALES. (units unknown) (unknown) (unknown) (no date) (unknown) (unknown) benefit from additional time off of work to recover. We agreed that we will (units unknown) (unknown) (unknown) (no date) (unknown) (unknown) branches.? (units unknown) (unknown) (unknown) (no date) (unknown) (unknown) changes. Will contact her with results and recommendations. (units unknown) (unknown) (unknown) (no date) (unknown) (unknown) ciprofloxacin Allergy (Intermediate, Verified 03/26/22 11:39) (units unknown) (unknown) (unknown) (no date) (unknown) (unknown) fluticasone pr opionate 230 mcg-salmeterol 21 mcg/actuation HFA inhaler (Advair (units unknown) (unknown) (unknown) (no date) (unknown) (unknown) gluten Adverse Reaction (Mild, Verified 03/26/22 11:39) (units unknown) (unknown) (unknown) (no date) (unknown) (unknown) had to call ou t of work and feels that due to multiple ongoing issues she would (units unknown) (unknown) (unknown) (no date) (unknown) (unknown) has mammo/us 04/02 (u nits unknown) (unknown) (unknown) (no date) (unknown) (unknown) have occurred. If there are any questions, please contact the Medical Records (units unknown) (unknown) (unknown) (no date) (unknown) (unknown) her teeth.? Th is began back in August 2021.? She is not sure whether that might be (units unknown) (unknown) (unknown) (no date) (unknown) (unknown) household memb ers: spouse and children (units unknown) (unknown) (unknown) (no date) (unknown) (unknown) hydromorphone Allergy (Mild, Verified 03/26/22 11:39) (units unknown) (unknown) (unknown) (no date) (unknown) (unknown) ibuprofen Jeffrey rgy (Mild, Verified 03/26/22 11:39) (units unknown) (unknown) (unknown) (no date) (unknown) (unknown) inadequately controlled asthma.? She states that her shortness a breath and (units unknown) (unknown) (unknown) (no date) (unknown) (unknown) indicated. Tri al Advair. Patient is also still recovering from viral URI which (units unknown) (unknown) (unknown) (no date) (unknown) (unknown) inhalation Q6H PRN Adequate Ventilation #8.5 grams 03/08/22 [Rx Confirmed (units unknown) (unknown) (unknown) (no date) (unknown) (unknown) inhaler as a result. ? (units unknown) (unknown) (unknown) (no date) (unknown) (unknown) leads to chest pain. (units unknown) (unknown) (unknown) (no date) (unknown) (unknown) locally but vidales s not had success. We agreed to a referral to [facility] (units unknown) (unknown) (unknown) (no date) (unknown) (unknown) may occur. Occ asional wrong-word or 'sound-alike' substitutions may have (units unknown) (unknown) (unknown) (no date) (unknown) (unknown) may repeat 1 t ab after at least 2 hrs; max = 4 tabs/24 hr PO 10 tabs 3RF (units unknown) (unknown) (unknown) (no date) (unknown) (unknown) methocarbamol 750 mg PO QID PRN 30 tabs 2RF muscle spasm (units unknown) (unknown) (unknown) (no date) (unknown) (unknown) methocarbamol 750 mg tablet 750 mg PO QID PRN muscle spasm #30 tabs 03/26/22 [Rx (units unknown) (unknown) (unknown) (no date) (unknown) (unknown) movement hurts chest . (units unknown) (unknown) (unknown) (no date) (unknown) (unknown) nickel Adverse Reaction (Mild, Verified 03/26/22 11:39) (units unknown) (unknown) (unknown) (no date) (unknown) (unknown) normal alignment. (u nits unknown) (unknown) (unknown) (no date) (unknown) (unknown) occurred due t o the inherent limitations of voice recognition software. Please (units unknown) (unknown) (unknown) (no date) (unknown) (unknown) omeprazole 20 mg PO BID 60 caps 0RF (units unknown) (unknown) (unknown) (no date) (unknown) (unknown) omeprazole 20 mg capsule,delayed release 20 mg PO BID #60 caps 03/26/22 [Rx (units unknown) (unknown) (unknown) (no date) (unknown) (unknown) ondansetron 4 mg disintegrating tablet 4 mg PO QID PRN nausea and vomiting #14 (units unknown) (unknown) (unknown) (no date) (unknown) (unknown) tenant selector 3/3 (u nits unknown) (unknown) (unknown) (no date) (unknown) (unknown) pulmonology co nsult. Patient reminded to schedule these. (units unknown) (unknown) (unknown) (no date) (unknown) (unknown) read the note carefully and recognize, using context, where these substitutions (units unknown) (unknown) (unknown) (no date) (unknown) (unknown) recommend 2 we eks off from work and she will see me for follow-up visit in 2 (units unknown) (unknown) (unknown) (no date) (unknown) (unknown) related to the headache. ? (units unknown) (unknown) (unknown) (no date) (unknown) (unknown) report of freq uency of use of rescue inhaler a maintenance medication is (units unknown) (unknown) (unknown) (no date) (unknown) (unknown) she became ronna seous and got a fairly severe headache.? She went to the ED where (units unknown) (unknown) (unknown) (no date) (unknown) (unknown) software. Alth ough every effort is made to edit content, top lift nailer errors (units unknown) (unknown) (unknown) (no date) (unknown) (unknown) still chest pa in L. some tooth pain. malaise. (units unknown) (unknown) (unknown) (no date) (unknown) (unknown) sumatriptan garcia ccinate (Imitrex) take 1 tab at onset of headache; if no relief (units unknown) (unknown) (unknown) (no date) (unknown) (unknown) sumatriptan garcia ccinate 50 mg tablet (Imitrex) See Rx Instructions PO .COMPLEX #10 (units unknown) (unknown) (unknown) (no date) (unknown) (unknown) tabs 03/26/22 [Rx Confirmed 03/26/22] (units unknown) (unknown) (unknown) (no date) (unknown) (unknown) tabs 04/05/18 [Rx Confirmed 03/26/22] (units unknown) (unknown) (unknown) (no date) (unknown) (unknown) tender in the epigastrum (Mild); Noguera's sign negative and with no rebound (units unknown) (unknown) (unknown) (no date) (unknown) (unknown) tenderness (units unknown) (unknown) (unknown) (no date) (unknown) (unknown) that as well.? (unit s unknown) (unknown) (unknown) (no date) (unknown) (unknown) thereafter was reassuring per ED provider.? She had 2 negative troponins.? 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 then got nauseous, significant VIDALES. (units unknown) (unknown) (unknown) (no date) (unknown) (unknown) turns out she has also had an ED visit 2 days ago and is here to follow-up on (units unknown) (unknown) (unknown) (no date) (unknown) (unknown) ultrasound as ordered. She declined breast exam today as she just had this done (units unknown) (unknown) (unknown) (no date) (unknown) (unknown) vomiting after ED visit, none in past 2 days. (units unknown) (unknown) (unknown) (no date) (unknown) (unknown) was part of th e cluster of symptoms with which she presented to the ED. she has (units unknown) (unknown) (unknown) (no date) (unknown) (unknown) weeks. Contact us sooner for any problems. (units unknown) (unknown) (unknown) (no date) (unknown) (unknown) wheeze have im proved significantly and she has decreased the use of rescue (units unknown) (unknown) (unknown) (no date) (unknown) (unknown) within the pas t week when she was seen by another provider and she denies any (units unknown) (unknown) (unknown) (no date) (unknown) (unknown) would be lower in stress.? 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 (units unknown) (unknown) Result panel 3 (unknown) (no date) (unknown) (unknown) (no value) (units unknown) (unknown) (unknown) (no date) (unknown) (unknown) (1) Mild persi stent asthma: (units unknown) (unknown) (unknown) (no date) (unknown) (unknown) (2) Atypical c hest pain: (units unknown) (unknown) (unknown) (no date) (unknown) (unknown) (3) Migraine: (units unknown) (unknown) (unknown) (no date) (unknown) (unknown) (4) Pulmonary nodule : (units unknown) (unknown) (unknown) (no date) (unknown) (unknown) (5) Bilateral breast lump: (units unknown) (unknown) (unknown) (no date) (unknown) (unknown) (6) Arthralgia of left temporomandibular joint: (units unknown) (unknown) (unknown) (no date) (unknown) (unknown) 03/26/22 (units unknown) (unknown) (unknown) (no date) (unknown) (unknown) 03/26/22] (units unknown) (unknown) (unknown) (no date) (unknown) (unknown) 03/31/22 1210 (units unknown) (unknown) (unknown) (no date) (unknown) (unknown) 11:39) (units unknown) (unknown) (unknown) (no date) (unknown) (unknown) 11:41 (units unknown) (unknown) (unknown) (no date) (unknown) (unknown) 36 yo female p resents today for 2 week f/u asthma and multiple issues (units unknown) (unknown) (unknown) (no date) (unknown) (unknown) 36-year-old fe male presents for a 2 week follow-up on multiple issues.? As it (units unknown) (unknown) (unknown) (no date) (unknown) (unknown) Affect: normal affec t (units unknown) (unknown) (unknown) (no date) (unknown) (unknown) Age/Sex: 36 / F Date of Service: (units unknown) (unknown) (unknown) (no date) (unknown) (unknown) All systems re viewed + are unremarkable except as noted in HPI and below (units unknown) (unknown) (unknown) (no date) (unknown) (unknown) Allergies (units unknown) (unknown) (unknown) (no date) (unknown) (unknown) [place] [address] (units unknown) (unknown) (unknown) (no date) (unknown) (unknown) Anxiety (units unknown) (unknown) (unknown) (no date) (unknown) (unknown) Appearance: gr ossly normal (units unknown) (unknown) (unknown) (no date) (unknown) (unknown) Assessment + Plan (u nits unknown) (unknown) (unknown) (no date) (unknown) (unknown) Asthma complic ation type: uncomplicated Qualified Code(s): J45.30 (units unknown) (unknown) (unknown) (no date) (unknown) (unknown) Asthma (units unknown) (unknown) (unknown) (no date) (unknown) (unknown) At the last vi sit we agreed to start the patient on Advair due to her (units unknown) (unknown) (unknown) (no date) (unknown) (unknown) Attending Dr: Wes SCOTT (units unknown) (unknown) (unknown) (no date) (unknown) (unknown) Attitude: cooperativ e (units unknown) (unknown) (unknown) (no date) (unknown) (unknown) Atypical chest pain: Discussed that while workup for pulmonary nodules and (units unknown) (unknown) (unknown) (no date) (unknown) (unknown) Auscultation: clear to auscultation bilaterally (units unknown) (unknown) (unknown) (no date) (unknown) (unknown) BMI 18.5 (units unknown) (unknown) (unknown) (no date) (unknown) (unknown) BP 97/57 L (units unknown) (unknown) (unknown) (no date) (unknown) (unknown) Blood Pressure Location Rt radial (units unknown) (unknown) (unknown) (no date) (unknown) (unknown) Breast tendern ess and lumps: Maintain plan for diagnostic mammogram and (units unknown) (unknown) (unknown) (no date) (unknown) (unknown) CT was negativ e.? She was diagnosed with migraine for which she was given (units unknown) (unknown) (unknown) (no date) (unknown) (unknown) Cardio (units unknown) (unknown) (unknown) (no date) (unknown) (unknown) Chest (units unknown) (unknown) (unknown) (no date) (unknown) (unknown) Chief Complaint (uni ts unknown) (unknown) (unknown) (no date) (unknown) (unknown) Chief Complain t: f/u multiple issues (units unknown) (unknown) (unknown) (no date) (unknown) (unknown) Cognition: nor mal cognition (units unknown) (unknown) (unknown) (no date) (unknown) (unknown) Confirmed 03/26/22] (units unknown) (unknown) (unknown) (no date) (unknown) (unknown) Const (units unknown) (unknown) (unknown) (no date) (unknown) (unknown) : 5 Acct:[id number] (units unknown) (unknown) (unknown) (no date) (unknown) (unknown) Depression (units unknown) (unknown) (unknown) (no date) (unknown) (unknown) Dept at . (units unknown) (unknown) (unknown) (no date) (unknown) (unknown) Details: (units unknown) (unknown) (unknown) (no date) (unknown) (unknown) Diffuse TTP le ft chest wall. (units unknown) (unknown) (unknown) (no date) (unknown) (unknown) Diffuse TTP ov er left TMJ. Able to open and close jaw normally with apparent (units unknown) (unknown) (unknown) (no date) (unknown) (unknown) Documented By: Wes Herrera 03/26/22 1138 (units unknown) (unknown) (unknown) (no date) (unknown) (unknown) EKG was perfor med which initially appeared abnormal but leads were moved and (units unknown) (unknown) (unknown) (no date) (unknown) (unknown) Effort + Inspe ction: normal respiratory effort (units unknown) (unknown) (unknown) (no date) (unknown) (unknown) Exam (units unknown) (unknown) (unknown) (no date) (unknown) (unknown) Extrem (units unknown) (unknown) (unknown) (no date) (unknown) (unknown) Eyes (units unknown) (unknown) (unknown) (no date) (unknown) (unknown) Family Practic e Office Visit (units unknown) (unknown) (unknown) (no date) (unknown) (unknown) April 02. ? Pulmonology visit scheduled April 13.? Notes that movement (units unknown) (unknown) (unknown) (no date) (unknown) (unknown) [facility] (units unknown) (unknown) (unknown) (no date) (unknown) (unknown) [place] (units unknown) (unknown) (unknown) (no date) (unknown) (unknown) GI (units unknown) (unknown) (unknown) (no date) (unknown) (unknown) Gait: normal gait (u nits unknown) (unknown) (unknown) (no date) (unknown) (unknown) Gastrointestinal Ups et (units unknown) (unknown) (unknown) (no date) (unknown) (unknown) General: appea raven normal, both eyes and all related structures (units unknown) (unknown) (unknown) (no date) (unknown) (unknown) General: coope rative and no acute distress (units unknown) (unknown) (unknown) (no date) (unknown) (unknown) General: no ra shes or lesions noted (units unknown) (unknown) (unknown) (no date) (unknown) (unknown) General: jt l to inspection and no edema (units unknown) (unknown) (unknown) (no date) (unknown) (unknown) General: patie nt alert, patient awake and patient oriented x3 (units unknown) (unknown) (unknown) (no date) (unknown) (unknown) H/O explorator y laparotomy (units unknown) (unknown) (unknown) (no date) (unknown) (unknown) H/O left knee surger y (units unknown) (unknown) (unknown) (no date) (unknown) (unknown) HENMT (units unknown) (unknown) (unknown) (no date) (unknown) (unknown) HFA) 2 puff in halation BID #12 grams 03/13/22 [Rx Confirmed 03/26/22] (units unknown) (unknown) (unknown) (no date) (unknown) (unknown) HPI (units unknown) (unknown) (unknown) (no date) (unknown) (unknown) Head: normal t o inspection (units unknown) (unknown) (unknown) (no date) (unknown) (unknown) Heart Sounds: S1 normal, S2 normal, normal S1 and S2 and no murmurs (units unknown) (unknown) (unknown) (no date) (unknown) (unknown) Height 160.02 cm (un its unknown) (unknown) (unknown) (no date) (unknown) (unknown) History of ope n heart surgery (units unknown) (unknown) (unknown) (no date) (unknown) (unknown) History of surgery ( units unknown) (unknown) (unknown) (no date) (unknown) (unknown) Inspection: no rmal to inspection (units unknown) (unknown) (unknown) (no date) (unknown) (unknown) Intake Note: (units unknown) (unknown) (unknown) (no date) (unknown) (unknown) Intake perform ed by: Germaine Bates (units unknown) (unknown) (unknown) (no date) (unknown) (unknown) Intake (units unknown) (unknown) (unknown) (no date) (unknown) (unknown) Intake- Clincial Sta ff (units unknown) (unknown) (unknown) (no date) (unknown) (unknown) Irritation/redness ( units unknown) (unknown) (unknown) (no date) (unknown) (unknown) Judgment: judg ment good (units unknown) (unknown) (unknown) (no date) (unknown) (unknown) Kidney infection (un its unknown) (unknown) (unknown) (no date) (unknown) (unknown) Last Menstural Cycle + Details (units unknown) (unknown) (unknown) (no date) (unknown) (unknown) Loc: [facility] (units unknown) (unknown) (unknown) (no date) (unknown) (unknown) [id number] (units unknown) (unknown) (unknown) (no date) (unknown) (unknown) Medical Histor y (units unknown) (unknown) (unknown) (no date) (unknown) (unknown) Medications (units unknown) (unknown) (unknown) (no date) (unknown) (unknown) Medications: (units unknown) (unknown) (unknown) (no date) (unknown) (unknown) Mental Status: mental status grossly normal (units unknown) (unknown) (unknown) (no date) (unknown) (unknown) Migraine and l eft TMJ pain: Imitrex ordered for as needed use. We will also (units unknown) (unknown) (unknown) (no date) (unknown) (unknown) Migraine type: without aura Status migrainosus presence: without status (units unknown) (unknown) (unknown) (no date) (unknown) (unknown) Migraine witho ut aura, not intractable, without status migrainosus (units unknown) (unknown) (unknown) (no date) (unknown) (unknown) Mild persistent asth ma (units unknown) (unknown) (unknown) (no date) (unknown) (unknown) Mild persisten t asthma, uncomplicated (units unknown) (unknown) (unknown) (no date) (unknown) (unknown) Mild persisten t asthma: Improved with Advair, continue regimen. (units unknown) (unknown) (unknown) (no date) (unknown) (unknown) Mood: congruent mood (units unknown) (unknown) (unknown) (no date) (unknown) (unknown) Neck mass: No (units unknown) (unknown) (unknown) (no date) (unknown) (unknown) Neck (units unknown) (unknown) (unknown) (no date) (unknown) (unknown) Neck: normal v isual inspection and no lymphadenopathy (units unknown) (unknown) (unknown) (no date) (unknown) (unknown) Neuro (units unknown) (unknown) (unknown) (no date) (unknown) (unknown) New (units unknown) (unknown) (unknown) (no date) (unknown) (unknown) On March 24 she took 2 OTC Excedrin tabs for the chest pain.? Thereafter (units unknown) (unknown) (unknown) (no date) (unknown) (unknown) Other Menstrua l Period: Other (units unknown) (unknown) (unknown) (no date) (unknown) (unknown) Other: (units unknown) (unknown) (unknown) (no date) (unknown) (unknown) Oxygen Deliver y Method room air (units unknown) (unknown) (unknown) (no date) (unknown) (unknown) PFSH (units unknown) (unknown) (unknown) (no date) (unknown) (unknown) Palpation: sof t, no hepatosplenomegaly, no guarding, no hernias, no masses and (units unknown) (unknown) (unknown) (no date) (unknown) (unknown) Patient has vidales d pain localized to the left TMJ area.? Believes that she grinds (units unknown) (unknown) (unknown) (no date) (unknown) (unknown) Patient: Carmina Shukla MR#: (units unknown) (unknown) (unknown) (no date) (unknown) (unknown) Penicillins Eladio kim (Intermediate, Verified 03/26/22 11:39) (units unknown) (unknown) (unknown) (no date) (unknown) (unknown) Percussion: no rmal to percussion (units unknown) (unknown) (unknown) (no date) (unknown) (unknown) Pertussis Vacc matt [PERTUSSIS VACCINES] Allergy (Unknown, Verified 03/26/22 (units unknown) (unknown) (unknown) (no date) (unknown) (unknown) Plan (units unknown) (unknown) (unknown) (no date) (unknown) (unknown) Position Sitting (un its unknown) (unknown) (unknown) (no date) (unknown) (unknown) Psych (units unknown) (unknown) (unknown) (no date) (unknown) (unknown) Pulmonary nodu les: Maintain plan for follow-up chest CT in 3 months and (units unknown) (unknown) (unknown) (no date) (unknown) (unknown) Pulse 57 L (units unknown) (unknown) (unknown) (no date) (unknown) (unknown) Pulse Oximetry (%) 9 9 (units unknown) (unknown) (unknown) (no date) (unknown) (unknown) Pulse Source Monitor (units unknown) (unknown) (unknown) (no date) (unknown) (unknown) Qualifiers: (units unknown) (unknown) (unknown) (no date) (unknown) (unknown) ROS (units unknown) (unknown) (unknown) (no date) (unknown) (unknown) Rash (units unknown) (unknown) (unknown) (no date) (unknown) (unknown) Rash, throat w as tingly (units unknown) (unknown) (unknown) (no date) (unknown) (unknown) Rate: regular rate ( units unknown) (unknown) (unknown) (no date) (unknown) (unknown) Reason For Visit (un its unknown) (unknown) (unknown) (no date) (unknown) (unknown) Resp (units unknown) (unknown) (unknown) (no date) (unknown) (unknown) Respiration 16 (unit s unknown) (unknown) (unknown) (no date) (unknown) (unknown) Rhythm: regular rhyt hm (units unknown) (unknown) (unknown) (no date) (unknown) (unknown) S/P laparoscop ic supracervical hysterectomy (04/04/18) (units unknown) (unknown) (unknown) (no date) (unknown) (unknown) Seizure (units unknown) (unknown) (unknown) (no date) (unknown) (unknown) She does shanique [place] to experience left chest pain.? Has her mammogram scheduled on (units unknown) (unknown) (unknown) (no date) (unknown) (unknown) Signed By: <Electronically signed by Wes Herrera> (units unknown) (unknown) (unknown) (no date) (unknown) (unknown) Signed (units unknown) (unknown) (unknown) (no date) (unknown) (unknown) Skin (units unknown) (unknown) (unknown) (no date) (unknown) (unknown) Smoking Status : Former smoker (units unknown) (unknown) (unknown) (no date) (unknown) (unknown) Social History (unit s unknown) (unknown) (unknown) (no date) (unknown) (unknown) Speech: speech jt l (units unknown) (unknown) (unknown) (no date) (unknown) (unknown) Status: Acute (units unknown) (unknown) (unknown) (no date) (unknown) (unknown) Status: Inactive (un its unknown) (unknown) (unknown) (no date) (unknown) (unknown) Stomach pain, nausea, headache (units unknown) (unknown) (unknown) (no date) (unknown) (unknown) Surgical Histo ry (units unknown) (unknown) (unknown) (no date) (unknown) (unknown) This note may have been all or partially generated using voice recognition (units unknown) (unknown) (unknown) (no date) (unknown) (unknown) Thought Conten t: normal (units unknown) (unknown) (unknown) (no date) (unknown) (unknown) Thought Proces s: normal (units unknown) (unknown) (unknown) (no date) (unknown) (unknown) Thyroid: thyro id normal (units unknown) (unknown) (unknown) (no date) (unknown) (unknown) Tobacco + Subs tance Use (units unknown) (unknown) (unknown) (no date) (unknown) (unknown) Tobacco Status (unit s unknown) (unknown) (unknown) (no date) (unknown) (unknown) Tylenol, Zofra n, fluids, morphine and ultimately discharge.? She had vomiting (units unknown) (unknown) (unknown) (no date) (unknown) (unknown) Visit Reasons: 2wk f/u asthma/multiple issues 02 (units unknown) (unknown) (unknown) (no date) (unknown) (unknown) Vitals (units unknown) (unknown) (unknown) (no date) (unknown) (unknown) Weight 47.4 kg (unit s unknown) (unknown) (unknown) (no date) (unknown) (unknown) after the ED v isit but none after that day. (units unknown) (unknown) (unknown) (no date) (unknown) (unknown) albuterol sulf ate 90 mcg/actuation aerosol inhaler (ProAir HFA) 1 puff (units unknown) (unknown) (unknown) (no date) (unknown) (unknown) amoxicillin Al lergy (Intermediate, Verified 03/26/22 11:39) (units unknown) (unknown) (unknown) (no date) (unknown) (unknown) and left TMJ p ain. We will follow-up to see how she responds to the medication (units unknown) (unknown) (unknown) (no date) (unknown) (unknown) azithromycin A llergy (Intermediate, Verified 03/26/22 11:39) (units unknown) (unknown) (unknown) (no date) (unknown) (unknown) breast lumps i s indicated, her pain could be due to a musculoskeletal cause or (units unknown) (unknown) (unknown) (no date) (unknown) (unknown) ciprofloxacin Allergy (Intermediate, Verified 03/26/22 11:39) (units unknown) (unknown) (unknown) (no date) (unknown) (unknown) fluticasone pr opionate 230 mcg-salmeterol 21 mcg/actuation HFA inhaler (Advair (units unknown) (unknown) (unknown) (no date) (unknown) (unknown) gluten Adverse Reaction (Mild, Verified 03/26/22 11:39) (units unknown) (unknown) (unknown) (no date) (unknown) (unknown) have occurred. If there are any questions, please contact the Medical Records (units unknown) (unknown) (unknown) (no date) (unknown) (unknown) her teeth.? Th is began back in August 2021.? She is not sure whether that might be (units unknown) (unknown) (unknown) (no date) (unknown) (unknown) household memb ers: spouse and children (units unknown) (unknown) (unknown) (no date) (unknown) (unknown) hydromorphone Allergy (Mild, Verified 03/26/22 11:39) (units unknown) (unknown) (unknown) (no date) (unknown) (unknown) ibuprofen Jeffrey rgy (Mild, Verified 03/26/22 11:39) (units unknown) (unknown) (unknown) (no date) (unknown) (unknown) inadequately controlled asthma.? She states that her shortness a breath and (units unknown) (unknown) (unknown) (no date) (unknown) (unknown) inhalation Q6H PRN Adequate Ventilation #8.5 grams 03/08/22 [Rx Confirmed (units unknown) (unknown) (unknown) (no date) (unknown) (unknown) inhaler as a result. ? (units unknown) (unknown) (unknown) (no date) (unknown) (unknown) interventions when we see her at the acupuncture visits. (units unknown) (unknown) (unknown) (no date) (unknown) (unknown) leads to chest pain. (units unknown) (unknown) (unknown) (no date) (unknown) (unknown) may occur. Occ asional wrong-word or 'sound-alike' substitutions may have (units unknown) (unknown) (unknown) (no date) (unknown) (unknown) may repeat 1 t ab after at least 2 hrs; max = 4 tabs/24 hr PO 10 tabs 3RF (units unknown) (unknown) (unknown) (no date) (unknown) (unknown) medical acupun cture at which we could focus on her chest pain and/or headache (units unknown) (unknown) (unknown) (no date) (unknown) (unknown) methocarbamol 750 mg PO QID PRN 30 tabs 2RF muscle spasm (units unknown) (unknown) (unknown) (no date) (unknown) (unknown) methocarbamol 750 mg tablet 750 mg PO QID PRN muscle spasm #30 tabs 03/26/22 [Rx (units unknown) (unknown) (unknown) (no date) (unknown) (unknown) migrainosus Intractability: not intractable Qualified Code(s): G43.009 (units unknown) (unknown) (unknown) (no date) (unknown) (unknown) nickel Adverse Reaction (Mild, Verified 03/26/22 11:39) (units unknown) (unknown) (unknown) (no date) (unknown) (unknown) normal alignment. (u nits unknown) (unknown) (unknown) (no date) (unknown) (unknown) occurred due t o the inherent limitations of voice recognition software. Please (units unknown) (unknown) (unknown) (no date) (unknown) (unknown) omeprazole 20 mg PO BID 60 caps 0RF (units unknown) (unknown) (unknown) (no date) (unknown) (unknown) omeprazole 20 mg capsule,delayed release 20 mg PO BID #60 caps 03/26/22 [Rx (units unknown) (unknown) (unknown) (no date) (unknown) (unknown) ondansetron 4 mg disintegrating tablet 4 mg PO QID PRN nausea and vomiting #14 (units unknown) (unknown) (unknown) (no date) (unknown) (unknown) potentially a GI cause as she does have some epigastric tenderness. We agreed (units unknown) (unknown) (unknown) (no date) (unknown) (unknown) pulmonology co nsult. Patient reminded to schedule these. (units unknown) (unknown) (unknown) (no date) (unknown) (unknown) read the note carefully and recognize, using context, where these substitutions (units unknown) (unknown) (unknown) (no date) (unknown) (unknown) related to the headache. ? (units unknown) (unknown) (unknown) (no date) (unknown) (unknown) she became ronna seous and got a fairly severe headache.? She went to the ED where (units unknown) (unknown) (unknown) (no date) (unknown) (unknown) software. Alth ough every effort is made to edit content, top lift nailer errors (units unknown) (unknown) (unknown) (no date) (unknown) (unknown) sumatriptan garcia ccinate (Imitrex) take 1 tab at onset of headache; if no relief (units unknown) (unknown) (unknown) (no date) (unknown) (unknown) sumatriptan gracia ccinate 50 mg tablet (Imitrex) See Rx Instructions PO .COMPLEX #10 (units unknown) (unknown) (unknown) (no date) (unknown) (unknown) tabs 03/26/22 [Rx Confirmed 03/26/22] (units unknown) (unknown) (unknown) (no date) (unknown) (unknown) tabs 04/05/18 [Rx Confirmed 03/26/22] (units unknown) (unknown) (unknown) (no date) (unknown) (unknown) tender in the epigastrum (Mild); Noguera's sign negative and with no rebound (units unknown) (unknown) (unknown) (no date) (unknown) (unknown) tenderness (units unknown) (unknown) (unknown) (no date) (unknown) (unknown) that as well.? (unit s unknown) (unknown) (unknown) (no date) (unknown) (unknown) thereafter was reassuring per ED provider.? She had 2 negative troponins.? Head (units unknown) (unknown) (unknown) (no date) (unknown) (unknown) to a plan to t rial omeprazole and Robaxin. We will also schedule her for (units unknown) (unknown) (unknown) (no date) (unknown) (unknown) treat with acupuncture. (units unknown) (unknown) (unknown) (no date) (unknown) (unknown) turns out she has also had an ED visit 2 days ago and is here to follow-up on (units unknown) (unknown) (unknown) (no date) (unknown) (unknown) ultrasound. (units unknown) (unknown) (unknown) (no date) (unknown) (unknown) wheeze have im proved significantly and she has decreased the use of rescue (units unknown) (unknown) Result panel 4 (unknown) (no date) (unknown) (unknown) (no value) (units unknown) (unknown) (unknown) (no date) (unknown) (unknown) (category d (units unknown) (unknown) (unknown) (no date) (unknown) (unknown) />75% glandula r tissue). (units unknown) (unknown) (unknown) (no date) (unknown) (unknown) 04/02/22 (units unknown) (unknown) (unknown) (no date) (unknown) (unknown) [address] [place] [address] (un its unknown) (unknown) (unknown) (no date) (unknown) (unknown) 15% of breast malignancies will not be visualized mammographically. In the (units unknown) (unknown) (unknown) (no date) (unknown) (unknown) 7.0% and her 1 0 year risk is 0.6%. According to the ACR, ACS, and NCCN (units unknown) (unknown) (unknown) (no date) (unknown) (unknown) : [id number] (units unknown) (unknown) (unknown) (no date) (unknown) (unknown) ACR BI-RADS Ca tegory 0: Incomplete [id number] (units unknown) (unknown) (unknown) (no date) (unknown) (unknown) WES HERRERA (units unknown) (unknown) (unknown) (no date) (unknown) (unknown) Accession Numb er: [id number] (units unknown) (unknown) (unknown) (no date) (unknown) (unknown) Accession Numb er: [id number] (units unknown) (unknown) (unknown) (no date) (unknown) (unknown) Accession Numb er: [id number] (units unknown) (unknown) (unknown) (no date) (unknown) (unknown) Age/Sex: 36 / F Date of Service: (units unknown) (unknown) (unknown) (no date) (unknown) (unknown) [place] [address] (units unknown) (unknown) (unknown) (no date) (unknown) (unknown) Approved by: Kenneth Ortiz M.D. on 04/04/2022 at 16:08 (units unknown) (unknown) (unknown) (no date) (unknown) (unknown) Approximately (units unknown) (unknown) (unknown) (no date) (unknown) (unknown) At the request of: ( units unknown) (unknown) (unknown) (no date) (unknown) (unknown) Attending Phys jose: Javier (units unknown) (unknown) (unknown) (no date) (unknown) (unknown) BILATERAL DIGI ELEAZAR DIAGNOSTIC MAMMOGRAM 3D/2D: 04/02/2022 (units unknown) (unknown) (unknown) (no date) (unknown) (unknown) Based on the T lisa Fung model (a risk assessment model) the patient's (units unknown) (unknown) (unknown) (no date) (unknown) (unknown) Both breasts a re extremely dense, which lowers the sensitivity of mammography (units unknown) (unknown) (unknown) (no date) (unknown) (unknown) CLINICAL: Base line Bilateral breast lumps. (units unknown) (unknown) (unknown) (no date) (unknown) (unknown) CLINICAL: Palp able left breast lump by physician and focal pain. (units unknown) (unknown) (unknown) (no date) (unknown) (unknown) CLINICAL: Palp able right breast lump by physician and focal pain. (units unknown) (unknown) (unknown) (no date) (unknown) (unknown) COMPARISON: None. (u nits unknown) (unknown) (unknown) (no date) (unknown) (unknown) Comparison is made to exam dated: 04/02/2022 mammogram - [facility]. (units unknown) (unknown) (unknown) (no date) (unknown) (unknown) Continued Repo rt - Page 2 of 2 (units unknown) (unknown) (unknown) (no date) (unknown) (unknown) : 5 Acct:[id number] (units unknown) (unknown) (unknown) (no date) (unknown) (unknown) Date: 04/04/2022 16:0 9 (units unknown) (unknown) (unknown) (no date) (unknown) (unknown) Dictated by: Kenneth Ortiz M.D. on 04/04/2022 at 16:02 (units unknown) (unknown) (unknown) (no date) (unknown) (unknown) Doppler ultrasound o (units unknown) (unknown) (unknown) (no date) (unknown) (unknown) Electronically Signed By: Dean Ortiz M.D. (units unknown) (unknown) (unknown) (no date) (unknown) (unknown) FINDINGS: (units unknown) (unknown) (unknown) (no date) (unknown) (unknown) IMPRESSION: BENIGN ( units unknown) (unknown) (unknown) (no date) (unknown) (unknown) IMPRESSION: INCOMPLETE: NEEDS ADDITIONAL IMAGING EVALUATION (units unknown) (unknown) (unknown) (no date) (unknown) (unknown) IMPRESSION: (units unknown) (unknown) (unknown) (no date) (unknown) (unknown) INDICATIONS: l ymph nodes palpated in both breasts, bilateral breast lumps (units unknown) (unknown) (unknown) (no date) (unknown) (unknown) Indications: (units unknown) (unknown) (unknown) (no date) (unknown) (unknown) [facility] (uni ts unknown) (unknown) (unknown) (no date) (unknown) (unknown) Loc: MAMMO (units unknown) (unknown) (unknown) (no date) (unknown) (unknown) 6 date: 1985 Sex: F (units unknown) (unknown) (unknown) (no date) (unknown) (unknown) Mammography Report ( units unknown) (unknown) (unknown) (no date) (unknown) (unknown) NOTE: For mamm ograms, a report in lay terms will be sent to the patient. (units unknown) (unknown) (unknown) (no date) (unknown) (unknown) No abnormality which corresponds with the area of pain is identified. (units unknown) (unknown) (unknown) (no date) (unknown) (unknown) No prior exams were available for comparison. (units unknown) (unknown) (unknown) (no date) (unknown) (unknown) No significant masses, calcifications, or other findings are seen in either (units unknown) (unknown) (unknown) (no date) (unknown) (unknown) Ordering Provi boni: Wes Herrera (units unknown) (unknown) (unknown) (no date) (unknown) (unknown) PROCEDURE: US BREAST LT LIMITED (units unknown) (unknown) (unknown) (no date) (unknown) (unknown) Patient Name: (units unknown) (unknown) (unknown) (no date) (unknown) (unknown) Patient: Carmina Shukla MR# (units unknown) (unknown) (unknown) (no date) (unknown) (unknown) Procedure: MM diagnostic mammo BI (units unknown) (unknown) (unknown) (no date) (unknown) (unknown) Procedure: US breast LT limited (units unknown) (unknown) (unknown) (no date) (unknown) (unknown) Procedure: US breast RT limited (units unknown) (unknown) (unknown) (no date) (unknown) (unknown) Real-time and Doppler ultrasound of the right breast were performed. (units unknown) (unknown) (unknown) (no date) (unknown) (unknown) Recommend yolande al mammogram beginning at age 40 or per ACR guidelines. (units unknown) (unknown) (unknown) (no date) (unknown) (unknown) CARMINA SHUKLA (units unknown) (unknown) (unknown) (no date) (unknown) (unknown) Signed (units unknown) (unknown) (unknown) (no date) (unknown) (unknown) The 0.4 cm x 0 .8 cm x 0.1 cm normal lymph node in the left breast is benign. (units unknown) (unknown) (unknown) (no date) (unknown) (unknown) The 0.5 cm x 0 .4 cm x 0.2 cm round cyst in the right breast is consistent with (units unknown) (unknown) (unknown) (no date) (unknown) (unknown) There are no abnormalities seen in the left breast to correspond with the areas (units unknown) (unknown) (unknown) (no date) (unknown) (unknown) There are no abnormalities seen in the right breast to correspond with the (units unknown) (unknown) (unknown) (no date) (unknown) (unknown) There is a gisselle ign 0.4 cm x 0.8 cm x 0.1 cm normal lymph node in the left breast (units unknown) (unknown) (unknown) (no date) (unknown) (unknown) There is a gisselle ign 0.5 cm x 0.4 cm x 0.2 cm round cyst in the right breast at 12 (units unknown) (unknown) (unknown) (no date) (unknown) (unknown) There is no sonographic evidence of malignancy. (units unknown) (unknown) (unknown) (no date) (unknown) (unknown) This exam was interpreted at Station ID: [id number]. (units unknown) (unknown) (unknown) (no date) (unknown) (unknown) This exam was interpreted at Station ID: [id number]. (units unknown) (unknown) (unknown) (no date) (unknown) (unknown) ULTRASOUND OF LEFT BREAST: 04/02/2022 (units unknown) (unknown) (unknown) (no date) (unknown) (unknown) ULTRASOUND OF RIGHT BREAST: 04/02/2022 (units unknown) (unknown) (unknown) (no date) (unknown) (unknown) Ultrasound BI- RADS: 2 Benign (units unknown) (unknown) (unknown) (no date) (unknown) (unknown) Ultrasound Report (u nits unknown) (unknown) (unknown) (no date) (unknown) (unknown) a palpable levy ast mass, a negative mammogram must not discourage biopsy of a (units unknown) (unknown) (unknown) (no date) (unknown) (unknown) a simple (units unknown) (unknown) (unknown) (no date) (unknown) (unknown) acr/:04/04/2022 16:09:22 (units unknown) (unknown) (unknown) (no date) (unknown) (unknown) acr/:04/04/2022 16:09:54 (units unknown) (unknown) (unknown) (no date) (unknown) (unknown) acr/:04/04/2022 16:10:11 (units unknown) (unknown) (unknown) (no date) (unknown) (unknown) annual breast MRI exam along with mammogram is recommended if the patient's (units unknown) (unknown) (unknown) (no date) (unknown) (unknown) areas of (units unknown) (unknown) (unknown) (no date) (unknown) (unknown) at 1, 2, 3, 9, 10, 11, and 12 o'clock. (units unknown) (unknown) (unknown) (no date) (unknown) (unknown) at 12 o'clock posterior (units unknown) (unknown) (unknown) (no date) (unknown) (unknown) breast. (units unknown) (unknown) (unknown) (no date) (unknown) (unknown) clinical carlos rn at 1, 2, 3, 6, 7, 8, 9, 10, 11, and 12 o'clock which is (units unknown) (unknown) (unknown) (no date) (unknown) (unknown) clinical carlos rn, pain, and redness at 1, 2, 3, 6, 7, 8, 9, 10, 11, and 12 (units unknown) (unknown) (unknown) (no date) (unknown) (unknown) clinical carlos rn, pain, and redness at 1, 2, 3, 9, 10, 11, and 12 o'clock, (units unknown) (unknown) (unknown) (no date) (unknown) (unknown) clinically (units unknown) (unknown) (unknown) (no date) (unknown) (unknown) consistent with (uni ts unknown) (unknown) (unknown) (no date) (unknown) (unknown) cyst and is benign. (units unknown) (unknown) (unknown) (no date) (unknown) (unknown) depth 3 cm fro m the nipple. (units unknown) (unknown) (unknown) (no date) (unknown) (unknown) f the left levy ast was performed. Luke scale images of the real-time examination (units unknown) (unknown) (unknown) (no date) (unknown) (unknown) guidelines, an (unit s unknown) (unknown) (unknown) (no date) (unknown) (unknown) however, ultra sound is recommended. (units unknown) (unknown) (unknown) (no date) (unknown) (unknown) however, (units unknown) (unknown) (unknown) (no date) (unknown) (unknown) is 20% or greater. ( units unknown) (unknown) (unknown) (no date) (unknown) (unknown) letter sent: N ormal Exam (units unknown) (unknown) (unknown) (no date) (unknown) (unknown) lifetime risk is (un its unknown) (unknown) (unknown) (no date) (unknown) (unknown) lifetime risk (units unknown) (unknown) (unknown) (no date) (unknown) (unknown) management of (units unknown) (unknown) (unknown) (no date) (unknown) (unknown) normal fibrogl andular tissue. (units unknown) (unknown) (unknown) (no date) (unknown) (unknown) o'clock (units unknown) (unknown) (unknown) (no date) (unknown) (unknown) o'clock, (units unknown) (unknown) (unknown) (no date) (unknown) (unknown) of clinical co ncern and pain (units unknown) (unknown) (unknown) (no date) (unknown) (unknown) of (units unknown) (unknown) (unknown) (no date) (unknown) (unknown) posterior dept h 3 cm from the nipple. This round cyst is anechoic. (units unknown) (unknown) (unknown) (no date) (unknown) (unknown) suspicious lesion. ( units unknown) (unknown) (unknown) (no date) (unknown) (unknown) ultrasound is recommended. (units unknown) (unknown) (unknown) (no date) (unknown) (unknown) were reviewed. (unit s unknown) (unknown) Result panel 5 (unknown) (no date) (unknown) (unknown) (no value) (units unknown) (unknown) (unknown) (no date) (unknown) (unknown) [address] [place] [address] (un its unknown) (unknown) (unknown) (no date) (unknown) (unknown) : [id number] (units unknown) (unknown) (unknown) (no date) (unknown) (unknown) Accession Number: (u nits unknown) (unknown) (unknown) (no date) (unknown) (unknown) Age/Sex: 36 / F Date of Service: (units unknown) (unknown) (unknown) (no date) (unknown) (unknown) [place] [address] (units unknown) (unknown) (unknown) (no date) (unknown) (unknown) Approved by: Kenneth Ortiz M.D. on 04/04/2022 at 16:08 (units unknown) (unknown) (unknown) (no date) (unknown) (unknown) COMPARISON: None. (u nits unknown) (unknown) (unknown) (no date) (unknown) (unknown) Cancelled (units unknown) (unknown) (unknown) (no date) (unknown) (unknown) : 5 Acct:[id number] (units unknown) (unknown) (unknown) (no date) (unknown) (unknown) Dictated by: Kenneth Ortiz M.D. on 04/04/2022 at 16:02 (units unknown) (unknown) (unknown) (no date) (unknown) (unknown) FINDINGS: (units unknown) (unknown) (unknown) (no date) (unknown) (unknown) IMPRESSION: (units unknown) (unknown) (unknown) (no date) (unknown) (unknown) INDICATIONS: l ymph nodes palpated in both breasts, bilateral breast lumps (units unknown) (unknown) (unknown) (no date) (unknown) (unknown) [facility] (uni ts unknown) (unknown) (unknown) (no date) (unknown) (unknown) Loc: [facility] (units unknown) (unknown) (unknown) (no date) (unknown) (unknown) Ordering Provider: ( units unknown) (unknown) (unknown) (no date) (unknown) (unknown) PROCEDURE: US BREAST LT LIMITED (units unknown) (unknown) (unknown) (no date) (unknown) (unknown) Patient: Carmian Shukla MR# (units unknown) (unknown) (unknown) (no date) (unknown) (unknown) Procedure: (units unknown) (unknown) (unknown) (no date) (unknown) (unknown) Ultrasound Report (u nits unknown) (unknown) Result panel 6 (unknown) (no date) (unknown) (unknown) (no value) (units unknown) (unknown) (unknown) (no date) (unknown) (unknown) 04/09/22 (units unknown) (unknown) (unknown) (no date) (unknown) (unknown) 04/09/22] (units unknown) (unknown) (unknown) (no date) (unknown) (unknown) 16:38) (units unknown) (unknown) (unknown) (no date) (unknown) (unknown) 16:39 (units unknown) (unknown) (unknown) (no date) (unknown) (unknown) Accompanied by : Daughter (units unknown) (unknown) (unknown) (no date) (unknown) (unknown) Acupuncture (units unknown) (unknown) (unknown) (no date) (unknown) (unknown) Age/Sex: 36 / F Date of Service: (units unknown) (unknown) (unknown) (no date) (unknown) (unknown) Allergies (units unknown) (unknown) (unknown) (no date) (unknown) (unknown) [place] [address] (units unknown) (unknown) (unknown) (no date) (unknown) (unknown) Anxiety (units unknown) (unknown) (unknown) (no date) (unknown) (unknown) Asthma (units unknown) (unknown) (unknown) (no date) (unknown) (unknown) Attending Dr: Wes SCOTT (units unknown) (unknown) (unknown) (no date) (unknown) (unknown) BMI 19.8 (units unknown) (unknown) (unknown) (no date) (unknown) (unknown) BP 98/58 L (units unknown) (unknown) (unknown) (no date) (unknown) (unknown) Blood Pressure Location Lt brachial (units unknown) (unknown) (unknown) (no date) (unknown) (unknown) Confirmed 04/09/22] (units unknown) (unknown) (unknown) (no date) (unknown) (unknown) : 5 Acct:[id number] (units unknown) (unknown) (unknown) (no date) (unknown) (unknown) Depression (units unknown) (unknown) (unknown) (no date) (unknown) (unknown) Dept at . (units unknown) (unknown) (unknown) (no date) (unknown) (unknown) Documented By: Wes Herrera 04/09/22 1637 (units unknown) (unknown) (unknown) (no date) (unknown) (unknown) Draft (units unknown) (unknown) (unknown) (no date) (unknown) (unknown) Family Practic e Office Visit (units unknown) (unknown) (unknown) (no date) (unknown) (unknown) [facility] (units unknown) (unknown) (unknown) (no date) (unknown) (unknown) [place] (units unknown) (unknown) (unknown) (no date) (unknown) (unknown) Gastrointestinal Ups et (units unknown) (unknown) (unknown) (no date) (unknown) (unknown) H/O explorator y laparotomy (units unknown) (unknown) (unknown) (no date) (unknown) (unknown) H/O left knee surger y (units unknown) (unknown) (unknown) (no date) (unknown) (unknown) HFA) 2 puff in halation BID #12 grams 03/13/22 [Rx Confirmed 04/09/22] (units unknown) (unknown) (unknown) (no date) (unknown) (unknown) Health Managem ent reviewed with patient: No (units unknown) (unknown) (unknown) (no date) (unknown) (unknown) Health Management (u nits unknown) (unknown) (unknown) (no date) (unknown) (unknown) Height 5 ft 3 in (un its unknown) (unknown) (unknown) (no date) (unknown) (unknown) History of ope n heart surgery (units unknown) (unknown) (unknown) (no date) (unknown) (unknown) History of surgery ( units unknown) (unknown) (unknown) (no date) (unknown) (unknown) Intake Note: (units unknown) (unknown) (unknown) (no date) (unknown) (unknown) Intake perform ed by: Татьяна Llanes (units unknown) (unknown) (unknown) (no date) (unknown) (unknown) Intake (units unknown) (unknown) (unknown) (no date) (unknown) (unknown) Intake- Clincial Sta ff (units unknown) (unknown) (unknown) (no date) (unknown) (unknown) Irritation/redness ( units unknown) (unknown) (unknown) (no date) (unknown) (unknown) Kidney infection (un its unknown) (unknown) (unknown) (no date) (unknown) (unknown) Last Menstural Cycle + Details (units unknown) (unknown) (unknown) (no date) (unknown) (unknown) Loc: [facility] (units unknown) (unknown) (unknown) (no date) (unknown) (unknown) [id number] (units unknown) (unknown) (unknown) (no date) (unknown) (unknown) Medical Histor y (units unknown) (unknown) (unknown) (no date) (unknown) (unknown) Medications (units unknown) (unknown) (unknown) (no date) (unknown) (unknown) Mild persistent asth ma (units unknown) (unknown) (unknown) (no date) (unknown) (unknown) Other Menstrua l Period: Other (units unknown) (unknown) (unknown) (no date) (unknown) (unknown) PFSH (units unknown) (unknown) (unknown) (no date) (unknown) (unknown) Patient: Carmina Shukla MR#: (units unknown) (unknown) (unknown) (no date) (unknown) (unknown) Penicillins Eladio kim (Intermediate, Verified 04/09/22 16:38) (units unknown) (unknown) (unknown) (no date) (unknown) (unknown) Pertussis Vacc matt [PERTUSSIS VACCINES] Allergy (Unknown, Verified 04/09/22 (units unknown) (unknown) (unknown) (no date) (unknown) (unknown) Position Sitting (un its unknown) (unknown) (unknown) (no date) (unknown) (unknown) Rash (units unknown) (unknown) (unknown) (no date) (unknown) (unknown) Rash, throat w as tingly (units unknown) (unknown) (unknown) (no date) (unknown) (unknown) Reason For Visit (un its unknown) (unknown) (unknown) (no date) (unknown) (unknown) Respiration 16 (unit s unknown) (unknown) (unknown) (no date) (unknown) (unknown) S/P laparoscop ic supracervical hysterectomy (04/04/18) (units unknown) (unknown) (unknown) (no date) (unknown) (unknown) Seizure (units unknown) (unknown) (unknown) (no date) (unknown) (unknown) Signed By: (units unknown) (unknown) (unknown) (no date) (unknown) (unknown) Smoking Status : Former smoker (units unknown) (unknown) (unknown) (no date) (unknown) (unknown) Social History (unit s unknown) (unknown) (unknown) (no date) (unknown) (unknown) Stomach pain, nausea, headache (units unknown) (unknown) (unknown) (no date) (unknown) (unknown) Surgical Histo ry (units unknown) (unknown) (unknown) (no date) (unknown) (unknown) This note may have been all or partially generated using voice recognition (units unknown) (unknown) (unknown) (no date) (unknown) (unknown) Tobacco + Subs tance Use (units unknown) (unknown) (unknown) (no date) (unknown) (unknown) Tobacco Status (unit s unknown) (unknown) (unknown) (no date) (unknown) (unknown) Visit Reasons: acupuncture 02 (units unknown) (unknown) (unknown) (no date) (unknown) (unknown) Vitals (units unknown) (unknown) (unknown) (no date) (unknown) (unknown) Weight 112 lb 2 oz ( units unknown) (unknown) (unknown) (no date) (unknown) (unknown) albuterol sulf ate 90 mcg/actuation aerosol inhaler (ProAir HFA) 1 puff (units unknown) (unknown) (unknown) (no date) (unknown) (unknown) amoxicillin Al lergy (Intermediate, Verified 04/09/22 16:38) (units unknown) (unknown) (unknown) (no date) (unknown) (unknown) azithromycin A llergy (Intermediate, Verified 04/09/22 16:38) (units unknown) (unknown) (unknown) (no date) (unknown) (unknown) ciprofloxacin Allergy (Intermediate, Verified 04/09/22 16:38) (units unknown) (unknown) (unknown) (no date) (unknown) (unknown) fluticasone pr opionate 230 mcg-salmeterol 21 mcg/actuation HFA inhaler (Advair (units unknown) (unknown) (unknown) (no date) (unknown) (unknown) gluten Adverse Reaction (Mild, Verified 04/09/22 16:38) (units unknown) (unknown) (unknown) (no date) (unknown) (unknown) have occurred. If there are any questions, please contact the Medical Records (units unknown) (unknown) (unknown) (no date) (unknown) (unknown) household memb ers: spouse and children (units unknown) (unknown) (unknown) (no date) (unknown) (unknown) hydromorphone Allergy (Mild, Verified 04/09/22 16:38) (units unknown) (unknown) (unknown) (no date) (unknown) (unknown) ibuprofen Jeffrey rgy (Mild, Verified 04/09/22 16:38) (units unknown) (unknown) (unknown) (no date) (unknown) (unknown) inhalation Q6H PRN Adequate Ventilation #8.5 grams 03/08/22 [Rx Confirmed (units unknown) (unknown) (unknown) (no date) (unknown) (unknown) may occur. Occ asional wrong-word or 'sound-alike' substitutions may have (units unknown) (unknown) (unknown) (no date) (unknown) (unknown) methocarbamol 750 mg tablet 750 mg PO QID PRN muscle spasm #30 tabs 03/26/22 [Rx (units unknown) (unknown) (unknown) (no date) (unknown) (unknown) nickel Adverse Reaction (Mild, Verified 04/09/22 16:38) (units unknown) (unknown) (unknown) (no date) (unknown) (unknown) occurred due t o the inherent limitations of voice recognition software. Please (units unknown) (unknown) (unknown) (no date) (unknown) (unknown) omeprazole 20 mg capsule,delayed release 20 mg PO BID #60 caps 03/26/22 [Rx (units unknown) (unknown) (unknown) (no date) (unknown) (unknown) ondansetron 4 mg disintegrating tablet 4 mg PO QID PRN nausea and vomiting #14 (units unknown) (unknown) (unknown) (no date) (unknown) (unknown) read the note carefully and recognize, using context, where these substitutions (units unknown) (unknown) (unknown) (no date) (unknown) (unknown) software. Alth ough every effort is made to edit content, top lift nailer errors (units unknown) (unknown) (unknown) (no date) (unknown) (unknown) sumatriptan garcia ccinate 50 mg tablet (Imitrex) See Rx Instructions PO .COMPLEX #10 (units unknown) (unknown) (unknown) (no date) (unknown) (unknown) tabs 03/26/22 [Rx Confirmed 04/09/22] (units unknown) (unknown) (unknown) (no date) (unknown) (unknown) tabs 04/05/18 [Rx Confirmed 04/09/22] (units unknown) (unknown) Result panel 7 (unknown) (no date) (unknown) (unknown) (no value) (units unknown) (unknown) (unknown) (no date) (unknown) (unknown) 04/09/22 (units unknown) (unknown) (unknown) (no date) (unknown) (unknown) 04/09/22] (units unknown) (unknown) (unknown) (no date) (unknown) (unknown) 16:38) (units unknown) (unknown) (unknown) (no date) (unknown) (unknown) 16:39 (units unknown) (unknown) (unknown) (no date) (unknown) (unknown) 30 needles nec k acu neutral. if ineffective consider ct pens next visit. (units unknown) (unknown) (unknown) (no date) (unknown) (unknown) Accompanied by : Daughter (units unknown) (unknown) (unknown) (no date) (unknown) (unknown) Acupuncture (units unknown) (unknown) (unknown) (no date) (unknown) (unknown) Age/Sex: 36 / F Date of Service: (units unknown) (unknown) (unknown) (no date) (unknown) (unknown) Allergies (units unknown) (unknown) (unknown) (no date) (unknown) (unknown) [place] [id number] (units unknown) (unknown) (unknown) (no date) (unknown) (unknown) Anxiety (units unknown) (unknown) (unknown) (no date) (unknown) (unknown) Asthma (units unknown) (unknown) (unknown) (no date) (unknown) (unknown) Attending Dr: Wes SCOTT (units unknown) (unknown) (unknown) (no date) (unknown) (unknown) BMI 19.8 (units unknown) (unknown) (unknown) (no date) (unknown) (unknown) BP 98/58 L (units unknown) (unknown) (unknown) (no date) (unknown) (unknown) Blood Pressure Location Lt brachial (units unknown) (unknown) (unknown) (no date) (unknown) (unknown) Confirmed 04/09/22] (units unknown) (unknown) (unknown) (no date) (unknown) (unknown) : 5 Acct:[id number] (units unknown) (unknown) (unknown) (no date) (unknown) (unknown) Depression (units unknown) (unknown) (unknown) (no date) (unknown) (unknown) Dept at [phone]. (units unknown) (unknown) (unknown) (no date) (unknown) (unknown) Details: (units unknown) (unknown) (unknown) (no date) (unknown) (unknown) Documented By: Wes Herrera 04/09/22 1637 (units unknown) (unknown) (unknown) (no date) (unknown) (unknown) Draft (units unknown) (unknown) (unknown) (no date) (unknown) (unknown) Family Practic e Office Visit (units unknown) (unknown) (unknown) (no date) (unknown) (unknown) [facility] (units unknown) (unknown) (unknown) (no date) (unknown) (unknown) [place] (units unknown) (unknown) (unknown) (no date) (unknown) (unknown) Gastrointestinal Ups et (units unknown) (unknown) (unknown) (no date) (unknown) (unknown) H/O explorator y laparotomy (units unknown) (unknown) (unknown) (no date) (unknown) (unknown) H/O left knee surger y (units unknown) (unknown) (unknown) (no date) (unknown) (unknown) HFA) 2 puff in halation BID #12 grams 03/13/22 [Rx Confirmed 04/09/22] (units unknown) (unknown) (unknown) (no date) (unknown) (unknown) HPI (units unknown) (unknown) (unknown) (no date) (unknown) (unknown) Health Managem ent reviewed with patient: No (units unknown) (unknown) (unknown) (no date) (unknown) (unknown) Health Management (u nits unknown) (unknown) (unknown) (no date) (unknown) (unknown) Height 160.02 cm (un its unknown) (unknown) (unknown) (no date) (unknown) (unknown) History of ope n heart surgery (units unknown) (unknown) (unknown) (no date) (unknown) (unknown) History of surgery ( units unknown) (unknown) (unknown) (no date) (unknown) (unknown) Intake Note: (units unknown) (unknown) (unknown) (no date) (unknown) (unknown) Intake perform ed by: Татьяна Llanes (units unknown) (unknown) (unknown) (no date) (unknown) (unknown) Intake (units unknown) (unknown) (unknown) (no date) (unknown) (unknown) Intake- Clincial Sta ff (units unknown) (unknown) (unknown) (no date) (unknown) (unknown) Irritation/redness ( units unknown) (unknown) (unknown) (no date) (unknown) (unknown) Kidney infection (un its unknown) (unknown) (unknown) (no date) (unknown) (unknown) Last Menstural Cycle + Details (units unknown) (unknown) (unknown) (no date) (unknown) (unknown) Loc: [facility] (units unknown) (unknown) (unknown) (no date) (unknown) (unknown) [id number] (units unknown) (unknown) (unknown) (no date) (unknown) (unknown) Medical Histor y (units unknown) (unknown) (unknown) (no date) (unknown) (unknown) Medications (units unknown) (unknown) (unknown) (no date) (unknown) (unknown) Mild persistent asth ma (units unknown) (unknown) (unknown) (no date) (unknown) (unknown) Other Menstrua l Period: Other (units unknown) (unknown) (unknown) (no date) (unknown) (unknown) PFSH (units unknown) (unknown) (unknown) (no date) (unknown) (unknown) Patient: Carmina Shukla MR#: (units unknown) (unknown) (unknown) (no date) (unknown) (unknown) Penicillins Al judy (Intermediate, Verified 04/09/22 16:38) (units unknown) (unknown) (unknown) (no date) (unknown) (unknown) Pertussis Vacc matt [PERTUSSIS VACCINES] Allergy (Unknown, Verified 04/09/22 (units unknown) (unknown) (unknown) (no date) (unknown) (unknown) Position Sitting (un its unknown) (unknown) (unknown) (no date) (unknown) (unknown) Rash (units unknown) (unknown) (unknown) (no date) (unknown) (unknown) Rash, throat w as tingly (units unknown) (unknown) (unknown) (no date) (unknown) (unknown) Reason For Visit (un its unknown) (unknown) (unknown) (no date) (unknown) (unknown) Respiration 16 (unit s unknown) (unknown) (unknown) (no date) (unknown) (unknown) S/P laparoscop ic supracervical hysterectomy (04/04/18) (units unknown) (unknown) (unknown) (no date) (unknown) (unknown) Seizure (units unknown) (unknown) (unknown) (no date) (unknown) (unknown) Signed By: (units unknown) (unknown) (unknown) (no date) (unknown) (unknown) Smoking Status : Former smoker (units unknown) (unknown) (unknown) (no date) (unknown) (unknown) Social History (unit s unknown) (unknown) (unknown) (no date) (unknown) (unknown) Stomach pain, nausea, headache (units unknown) (unknown) (unknown) (no date) (unknown) (unknown) Surgical Histo ry (units unknown) (unknown) (unknown) (no date) (unknown) (unknown) This note may have been all or partially generated using voice recognition (units unknown) (unknown) (unknown) (no date) (unknown) (unknown) Tobacco + Subs tance Use (units unknown) (unknown) (unknown) (no date) (unknown) (unknown) Tobacco Status (unit s unknown) (unknown) (unknown) (no date) (unknown) (unknown) Visit Reasons: acupuncture 02 (units unknown) (unknown) (unknown) (no date) (unknown) (unknown) Vitals (units unknown) (unknown) (unknown) (no date) (unknown) (unknown) Weight 50.859 kg (un its unknown) (unknown) (unknown) (no date) (unknown) (unknown) albuterol sulf ate 90 mcg/actuation aerosol inhaler (ProAir HFA) 1 puff (units unknown) (unknown) (unknown) (no date) (unknown) (unknown) amoxicillin Al lergy (Intermediate, Verified 04/09/22 16:38) (units unknown) (unknown) (unknown) (no date) (unknown) (unknown) azithromycin A llergy (Intermediate, Verified 04/09/22 16:38) (units unknown) (unknown) (unknown) (no date) (unknown) (unknown) ciprofloxacin Allergy (Intermediate, Verified 04/09/22 16:38) (units unknown) (unknown) (unknown) (no date) (unknown) (unknown) fluticasone pr opionate 230 mcg-salmeterol 21 mcg/actuation HFA inhaler (Advair (units unknown) (unknown) (unknown) (no date) (unknown) (unknown) gluten Adverse Reaction (Mild, Verified 04/09/22 16:38) (units unknown) (unknown) (unknown) (no date) (unknown) (unknown) have occurred. If there are any questions, please contact the Medical Records (units unknown) (unknown) (unknown) (no date) (unknown) (unknown) household memb ers: spouse and children (units unknown) (unknown) (unknown) (no date) (unknown) (unknown) hydromorphone Allergy (Mild, Verified 04/09/22 16:38) (units unknown) (unknown) (unknown) (no date) (unknown) (unknown) ibuprofen Jeffrey rgy (Mild, Verified 04/09/22 16:38) (units unknown) (unknown) (unknown) (no date) (unknown) (unknown) inhalation Q6H PRN Adequate Ventilation #8.5 grams 03/08/22 [Rx Confirmed (units unknown) (unknown) (unknown) (no date) (unknown) (unknown) may occur. Occ asional wrong-word or 'sound-alike' substitutions may have (units unknown) (unknown) (unknown) (no date) (unknown) (unknown) methocarbamol 750 mg tablet 750 mg PO QID PRN muscle spasm #30 tabs 03/26/22 [Rx (units unknown) (unknown) (unknown) (no date) (unknown) (unknown) nickel Adverse Reaction (Mild, Verified 04/09/22 16:38) (units unknown) (unknown) (unknown) (no date) (unknown) (unknown) occurred due t o the inherent limitations of voice recognition software. Please (units unknown) (unknown) (unknown) (no date) (unknown) (unknown) omeprazole 20 mg capsule,delayed release 20 mg PO BID #60 caps 03/26/22 [Rx (units unknown) (unknown) (unknown) (no date) (unknown) (unknown) ondansetron 4 mg disintegrating tablet 4 mg PO QID PRN nausea and vomiting #14 (units unknown) (unknown) (unknown) (no date) (unknown) (unknown) read the note carefully and recognize, using context, where these substitutions (units unknown) (unknown) (unknown) (no date) (unknown) (unknown) software. Alth ough every effort is made to edit content, top lift nailer errors (units unknown) (unknown) (unknown) (no date) (unknown) (unknown) sumatriptan garcia ccinate 50 mg tablet (Imitrex) See Rx Instructions PO .COMPLEX #10 (units unknown) (unknown) (unknown) (no date) (unknown) (unknown) tabs 03/26/22 [Rx Confirmed 04/09/22] (units unknown) (unknown) (unknown) (no date) (unknown) (unknown) tabs 04/05/18 [Rx Confirmed 04/09/22] (units unknown) (unknown) Result panel 8 (unknown) (no date) (unknown) (unknown) (no value) (units unknown) (unknown) (unknown) (no date) (unknown) (unknown) (1) Migraine: (units unknown) (unknown) (unknown) (no date) (unknown) (unknown) (2) Neck pain, chronic: (units unknown) (unknown) (unknown) (no date) (unknown) (unknown) (3) Atypical c hest pain: (units unknown) (unknown) (unknown) (no date) (unknown) (unknown) (4) Bilateral breast lump: (units unknown) (unknown) (unknown) (no date) (unknown) (unknown) 04/09/22 (units unknown) (unknown) (unknown) (no date) (unknown) (unknown) 04/09/22] (units unknown) (unknown) (unknown) (no date) (unknown) (unknown) 04/15/22 0909 (units unknown) (unknown) (unknown) (no date) (unknown) (unknown) 16:38) (units unknown) (unknown) (unknown) (no date) (unknown) (unknown) 16:39 (units unknown) (unknown) (unknown) (no date) (unknown) (unknown) 36-year-old fe male presents for initial acupuncture treatment. She is (units unknown) (unknown) (unknown) (no date) (unknown) (unknown) Accompanied by : Daughter (units unknown) (unknown) (unknown) (no date) (unknown) (unknown) Acupuncture (units unknown) (unknown) (unknown) (no date) (unknown) (unknown) Affect: normal affec t (units unknown) (unknown) (unknown) (no date) (unknown) (unknown) Age/Sex: 36 / F Date of Service: (units unknown) (unknown) (unknown) (no date) (unknown) (unknown) All systems re viewed + are unremarkable except as noted in HPI and below (units unknown) (unknown) (unknown) (no date) (unknown) (unknown) Allergies (units unknown) (unknown) (unknown) (no date) (unknown) (unknown) [place] [address] (units unknown) (unknown) (unknown) (no date) (unknown) (unknown) Anxiety (units unknown) (unknown) (unknown) (no date) (unknown) (unknown) Appearance: gr ossly normal (units unknown) (unknown) (unknown) (no date) (unknown) (unknown) Assessment + Plan (u nits unknown) (unknown) (unknown) (no date) (unknown) (unknown) Asthma (units unknown) (unknown) (unknown) (no date) (unknown) (unknown) Attending Dr: Wes SCOTT (units unknown) (unknown) (unknown) (no date) (unknown) (unknown) Attitude: cooperativ e (units unknown) (unknown) (unknown) (no date) (unknown) (unknown) BMI 19.8 (units unknown) (unknown) (unknown) (no date) (unknown) (unknown) BP 98/58 L (units unknown) (unknown) (unknown) (no date) (unknown) (unknown) Bilateral ion st masses: We reviewed benign imaging results with recommendation (units unknown) (unknown) (unknown) (no date) (unknown) (unknown) Blood Pressure Location Lt brachial (units unknown) (unknown) (unknown) (no date) (unknown) (unknown) Cardio (units unknown) (unknown) (unknown) (no date) (unknown) (unknown) Chief Complaint (uni ts unknown) (unknown) (unknown) (no date) (unknown) (unknown) Chief Complain t: Initial acupuncture/follow-up breast imaging (units unknown) (unknown) (unknown) (no date) (unknown) (unknown) Cognition: nor mal cognition (units unknown) (unknown) (unknown) (no date) (unknown) (unknown) Confirmed 04/09/22] (units unknown) (unknown) (unknown) (no date) (unknown) (unknown) Const (units unknown) (unknown) (unknown) (no date) (unknown) (unknown) : 5 Acct:[id number] (units unknown) (unknown) (unknown) (no date) (unknown) (unknown) Depression (units unknown) (unknown) (unknown) (no date) (unknown) (unknown) Dept at [phone]. (units unknown) (unknown) (unknown) (no date) (unknown) (unknown) Details: (units unknown) (unknown) (unknown) (no date) (unknown) (unknown) Documented By: Wes Herrera 04/09/22 1637 (units unknown) (unknown) (unknown) (no date) (unknown) (unknown) Effort + Inspe ction: normal respiratory effort (units unknown) (unknown) (unknown) (no date) (unknown) (unknown) Exam (units unknown) (unknown) (unknown) (no date) (unknown) (unknown) Eyes (units unknown) (unknown) (unknown) (no date) (unknown) (unknown) Family Practic e Office Visit (units unknown) (unknown) (unknown) (no date) (unknown) (unknown) [facility] (units unknown) (unknown) (unknown) (no date) (unknown) (unknown) [place] (units unknown) (unknown) (unknown) (no date) (unknown) (unknown) GV14, GV16, bi lateral GB20, BL10, SI9, SI10, SI11, SI13, SI14, SI15, SI16 and (units unknown) (unknown) (unknown) (no date) (unknown) (unknown) Gait: normal gait (u nits unknown) (unknown) (unknown) (no date) (unknown) (unknown) Gastrointestinal Ups et (units unknown) (unknown) (unknown) (no date) (unknown) (unknown) General: appea raven normal, both eyes and all related structures (units unknown) (unknown) (unknown) (no date) (unknown) (unknown) General: coope rative and no acute distress (units unknown) (unknown) (unknown) (no date) (unknown) (unknown) General: no ra shes or lesions noted (units unknown) (unknown) (unknown) (no date) (unknown) (unknown) General: patie nt alert, patient awake and patient oriented x3 (units unknown) (unknown) (unknown) (no date) (unknown) (unknown) H/O explorator y laparotomy (units unknown) (unknown) (unknown) (no date) (unknown) (unknown) H/O left knee surger y (units unknown) (unknown) (unknown) (no date) (unknown) (unknown) HENMT (units unknown) (unknown) (unknown) (no date) (unknown) (unknown) HFA) 2 puff in halation BID #12 grams 03/13/22 [Rx Confirmed 04/09/22] (units unknown) (unknown) (unknown) (no date) (unknown) (unknown) HPI (units unknown) (unknown) (unknown) (no date) (unknown) (unknown) Head: normal t o inspection (units unknown) (unknown) (unknown) (no date) (unknown) (unknown) Health Managem ent reviewed with patient: No (units unknown) (unknown) (unknown) (no date) (unknown) (unknown) Health Management (u nits unknown) (unknown) (unknown) (no date) (unknown) (unknown) Height 160.02 cm (un its unknown) (unknown) (unknown) (no date) (unknown) (unknown) History of ope n heart surgery (units unknown) (unknown) (unknown) (no date) (unknown) (unknown) History of surgery ( units unknown) (unknown) (unknown) (no date) (unknown) (unknown) Intake Note: (units unknown) (unknown) (unknown) (no date) (unknown) (unknown) Intake perform ed by: Татьяна Llanes (units unknown) (unknown) (unknown) (no date) (unknown) (unknown) Intake (units unknown) (unknown) (unknown) (no date) (unknown) (unknown) Intake- Clincial Sta ff (units unknown) (unknown) (unknown) (no date) (unknown) (unknown) Intractability : not intractable Migraine type: without aura Status (units unknown) (unknown) (unknown) (no date) (unknown) (unknown) Irritation/redness ( units unknown) (unknown) (unknown) (no date) (unknown) (unknown) Kidney infection (un its unknown) (unknown) (unknown) (no date) (unknown) (unknown) Last Menstural Cycle + Details (units unknown) (unknown) (unknown) (no date) (unknown) (unknown) Loc: [facility] (units unknown) (unknown) (unknown) (no date) (unknown) (unknown) [id number] (units unknown) (unknown) (unknown) (no date) (unknown) (unknown) Medical Histor y (units unknown) (unknown) (unknown) (no date) (unknown) (unknown) Medications (units unknown) (unknown) (unknown) (no date) (unknown) (unknown) Mental Status: mental status grossly normal (units unknown) (unknown) (unknown) (no date) (unknown) (unknown) Migraine witho ut aura, not intractable, without status migrainosus (units unknown) (unknown) (unknown) (no date) (unknown) (unknown) Migraines/neck pain/atypical chest pain: Record reviewed, pt interviewed and (units unknown) (unknown) (unknown) (no date) (unknown) (unknown) Mild persistent asth ma (units unknown) (unknown) (unknown) (no date) (unknown) (unknown) Mood: congruent mood (units unknown) (unknown) (unknown) (no date) (unknown) (unknown) Neuro (units unknown) (unknown) (unknown) (no date) (unknown) (unknown) Other Menstrua l Period: Other (units unknown) (unknown) (unknown) (no date) (unknown) (unknown) PFSH (units unknown) (unknown) (unknown) (no date) (unknown) (unknown) Patient: Carmina Shukla MR#: (units unknown) (unknown) (unknown) (no date) (unknown) (unknown) Penicillins Al lergy (Intermediate, Verified 04/09/22 16:38) (units unknown) (unknown) (unknown) (no date) (unknown) (unknown) Pertussis Vacc matt [PERTUSSIS VACCINES] Allergy (Unknown, Verified 04/09/22 (units unknown) (unknown) (unknown) (no date) (unknown) (unknown) Plan (units unknown) (unknown) (unknown) (no date) (unknown) (unknown) Position Sitting (un its unknown) (unknown) (unknown) (no date) (unknown) (unknown) Psych (units unknown) (unknown) (unknown) (no date) (unknown) (unknown) Pt tolerated w ell with no complications. In particular, no signs of needle (units unknown) (unknown) (unknown) (no date) (unknown) (unknown) Qualifiers: (units unknown) (unknown) (unknown) (no date) (unknown) (unknown) ROS (units unknown) (unknown) (unknown) (no date) (unknown) (unknown) Rash (units unknown) (unknown) (unknown) (no date) (unknown) (unknown) Rash, throat w as tingly (units unknown) (unknown) (unknown) (no date) (unknown) (unknown) Rate: regular rate ( units unknown) (unknown) (unknown) (no date) (unknown) (unknown) Reason For Visit (un its unknown) (unknown) (unknown) (no date) (unknown) (unknown) Resp (units unknown) (unknown) (unknown) (no date) (unknown) (unknown) Respiration 16 (unit s unknown) (unknown) (unknown) (no date) (unknown) (unknown) S/P laparoscop ic supracervical hysterectomy (04/04/18) (units unknown) (unknown) (unknown) (no date) (unknown) (unknown) SY/TY versus C T pens. If she would like to focus on a different area and/or (units unknown) (unknown) (unknown) (no date) (unknown) (unknown) Seizure (units unknown) (unknown) (unknown) (no date) (unknown) (unknown) Signed By: <Electronically signed by Wes Herrera> (units unknown) (unknown) (unknown) (no date) (unknown) (unknown) Signed (units unknown) (unknown) (unknown) (no date) (unknown) (unknown) Skin (units unknown) (unknown) (unknown) (no date) (unknown) (unknown) Smoking Status : Former smoker (units unknown) (unknown) (unknown) (no date) (unknown) (unknown) Social History (unit s unknown) (unknown) (unknown) (no date) (unknown) (unknown) Speech: speech jt l (units unknown) (unknown) (unknown) (no date) (unknown) (unknown) Status: Inactive (un its unknown) (unknown) (unknown) (no date) (unknown) (unknown) Stomach pain, nausea, headache (units unknown) (unknown) (unknown) (no date) (unknown) (unknown) Surgical Histo ry (units unknown) (unknown) (unknown) (no date) (unknown) (unknown) This note may have been all or partially generated using voice recognition (units unknown) (unknown) (unknown) (no date) (unknown) (unknown) Thought Conten t: normal (units unknown) (unknown) (unknown) (no date) (unknown) (unknown) Thought Proces s: normal (units unknown) (unknown) (unknown) (no date) (unknown) (unknown) Tobacco + Subs tance Use (units unknown) (unknown) (unknown) (no date) (unknown) (unknown) Tobacco Status (unit s unknown) (unknown) (unknown) (no date) (unknown) (unknown) Visit Reasons: acupuncture 02 (units unknown) (unknown) (unknown) (no date) (unknown) (unknown) Vitals (units unknown) (unknown) (unknown) (no date) (unknown) (unknown) We discussed t he practice of acupuncture and associated scientific principles, (units unknown) (unknown) (unknown) (no date) (unknown) (unknown) Weight 50.859 kg (un its unknown) (unknown) (unknown) (no date) (unknown) (unknown) albuterol sulf ate 90 mcg/actuation aerosol inhaler (ProAir HFA) 1 puff (units unknown) (unknown) (unknown) (no date) (unknown) (unknown) amoxicillin Al lergy (Intermediate, Verified 04/09/22 16:38) (units unknown) (unknown) (unknown) (no date) (unknown) (unknown) as needed for any changes she notes. (units unknown) (unknown) (unknown) (no date) (unknown) (unknown) as well as an in-depth discussion of anticipated plan of care in regards to (units unknown) (unknown) (unknown) (no date) (unknown) (unknown) azithromycin A llergy (Intermediate, Verified 04/09/22 16:38) (units unknown) (unknown) (unknown) (no date) (unknown) (unknown) back points. S he feels that her atypical chest pain may be related to issues (units unknown) (unknown) (unknown) (no date) (unknown) (unknown) ciprofloxacin Allergy (Intermediate, Verified 04/09/22 16:38) (units unknown) (unknown) (unknown) (no date) (unknown) (unknown) consider same or similar treatment with or without global energetic treatment on (units unknown) (unknown) (unknown) (no date) (unknown) (unknown) consider supin e approach, consider local chest wall points and/or TMJ local (units unknown) (unknown) (unknown) (no date) (unknown) (unknown) determined to be an appropriate acupuncture candidate. Verified has no co (units unknown) (unknown) (unknown) (no date) (unknown) (unknown) experiencing p ain and problems in a number of areas, including atypical chest (units unknown) (unknown) (unknown) (no date) (unknown) (unknown) fluticasone pr opionate 230 mcg-salmeterol 21 mcg/actuation HFA inhaler (Advair (units unknown) (unknown) (unknown) (no date) (unknown) (unknown) gluten Adverse Reaction (Mild, Verified 04/09/22 16:38) (units unknown) (unknown) (unknown) (no date) (unknown) (unknown) have occurred. If there are any questions, please contact the Medical Records (units unknown) (unknown) (unknown) (no date) (unknown) (unknown) her recently t o evaluate these issues. We discussed options for treatments and (units unknown) (unknown) (unknown) (no date) (unknown) (unknown) household memb ers: spouse and children (units unknown) (unknown) (unknown) (no date) (unknown) (unknown) hydromorphone Allergy (Mild, Verified 04/09/22 16:38) (units unknown) (unknown) (unknown) (no date) (unknown) (unknown) ibuprofen Jeffrey rgy (Mild, Verified 04/09/22 16:38) (units unknown) (unknown) (unknown) (no date) (unknown) (unknown) inhalation Q6H PRN Adequate Ventilation #8.5 grams 03/08/22 [Rx Confirmed (units unknown) (unknown) (unknown) (no date) (unknown) (unknown) may occur. Occ asional wrong-word or 'sound-alike' substitutions may have (units unknown) (unknown) (unknown) (no date) (unknown) (unknown) methocarbamol 750 mg tablet 750 mg PO QID PRN muscle spasm #30 tabs 03/26/22 [Rx (units unknown) (unknown) (unknown) (no date) (unknown) (unknown) migrainosus pr esence: without status migrainosus Qualified Code(s): G43.009 (units unknown) (unknown) (unknown) (no date) (unknown) (unknown) nickel Adverse Reaction (Mild, Verified 04/09/22 16:38) (units unknown) (unknown) (unknown) (no date) (unknown) (unknown) ntraindication s. Proper counseling and consent completed prior to procedure. (units unknown) (unknown) (unknown) (no date) (unknown) (unknown) occurred due t o the inherent limitations of voice recognition software. Please (units unknown) (unknown) (unknown) (no date) (unknown) (unknown) omeprazole 20 mg capsule,delayed release 20 mg PO BID #60 caps 03/26/22 [Rx (units unknown) (unknown) (unknown) (no date) (unknown) (unknown) ondansetron 4 mg disintegrating tablet 4 mg PO QID PRN nausea and vomiting #14 (units unknown) (unknown) (unknown) (no date) (unknown) (unknown) pain, headache s, left TMJ pain and neck pain left greater than right. We saw (units unknown) (unknown) (unknown) (no date) (unknown) (unknown) points along i nner bladder line of the upper thoracic region in neutral (units unknown) (unknown) (unknown) (no date) (unknown) (unknown) points with or without global energetic treatment. (units unknown) (unknown) (unknown) (no date) (unknown) (unknown) read the note carefully and recognize, using context, where these substitutions (units unknown) (unknown) (unknown) (no date) (unknown) (unknown) shock. EBL: 0 mL. Provided discharge instructions. Pt ambulated from clinic (units unknown) (unknown) (unknown) (no date) (unknown) (unknown) software. Alth ough every effort is made to edit content, top lift nailer errors (units unknown) (unknown) (unknown) (no date) (unknown) (unknown) specific acupu ncture treatments at visits today and in the future. (units unknown) (unknown) (unknown) (no date) (unknown) (unknown) sumatriptan garcia ccinate 50 mg tablet (Imitrex) See Rx Instructions PO .COMPLEX #10 (units unknown) (unknown) (unknown) (no date) (unknown) (unknown) tabs 03/26/22 [Rx Confirmed 04/09/22] (units unknown) (unknown) (unknown) (no date) (unknown) (unknown) tabs 04/05/18 [Rx Confirmed 04/09/22] (units unknown) (unknown) (unknown) (no date) (unknown) (unknown) technique x 25 minutes. (units unknown) (unknown) (unknown) (no date) (unknown) (unknown) to start annua l routine mammographic screening at age 39. Advise she follow-up (units unknown) (unknown) (unknown) (no date) (unknown) (unknown) today she woul d like to start with a prone approach incorporating neck and upper (units unknown) (unknown) (unknown) (no date) (unknown) (unknown) with her neck and upper back. (units unknown) (unknown) (unknown) (no date) (unknown) (unknown) without diffic ulty. F/U 1-2 weeks. Depending on response to today's treatment, (units unknown) (unknown) Result panel 9 (unknown) (no date) (unknown) (unknown) (no value) (units unknown) (unknown) (unknown) (no date) (unknown) (unknown) 05/24/22 (units unknown) (unknown) (unknown) (no date) (unknown) (unknown) 10:29) (units unknown) (unknown) (unknown) (no date) (unknown) (unknown) 36 Y/O Female presents today for Acupuncture (units unknown) (unknown) (unknown) (no date) (unknown) (unknown) Age/Sex: 36 / F Date of Service: (units unknown) (unknown) (unknown) (no date) (unknown) (unknown) Allergies (units unknown) (unknown) (unknown) (no date) (unknown) (unknown) [place] [address] (units unknown) (unknown) (unknown) (no date) (unknown) (unknown) Anxiety (units unknown) (unknown) (unknown) (no date) (unknown) (unknown) Asthma (units unknown) (unknown) (unknown) (no date) (unknown) (unknown) Attending Dr: Wes SCOTT (units unknown) (unknown) (unknown) (no date) (unknown) (unknown) : 5 Acct:[id number] (units unknown) (unknown) (unknown) (no date) (unknown) (unknown) Depression (units unknown) (unknown) (unknown) (no date) (unknown) (unknown) Dept at [phone]. (units unknown) (unknown) (unknown) (no date) (unknown) (unknown) Documented By: Wes Herrera 05/24/22 1029 (units unknown) (unknown) (unknown) (no date) (unknown) (unknown) Draft (units unknown) (unknown) (unknown) (no date) (unknown) (unknown) Family Practic e Office Visit (units unknown) (unknown) (unknown) (no date) (unknown) (unknown) [facility] (units unknown) (unknown) (unknown) (no date) (unknown) (unknown) [place] (units unknown) (unknown) (unknown) (no date) (unknown) (unknown) Gastrointestinal Ups et (units unknown) (unknown) (unknown) (no date) (unknown) (unknown) H/O explorator y laparotomy (units unknown) (unknown) (unknown) (no date) (unknown) (unknown) H/O left knee surger y (units unknown) (unknown) (unknown) (no date) (unknown) (unknown) History of ope n heart surgery (units unknown) (unknown) (unknown) (no date) (unknown) (unknown) History of surgery ( units unknown) (unknown) (unknown) (no date) (unknown) (unknown) Intake Note: (units unknown) (unknown) (unknown) (no date) (unknown) (unknown) Intake perform ed by: Татьяна Llanes (units unknown) (unknown) (unknown) (no date) (unknown) (unknown) Intake (units unknown) (unknown) (unknown) (no date) (unknown) (unknown) Intake- Clincial Sta ff (units unknown) (unknown) (unknown) (no date) (unknown) (unknown) Irritation/redness ( units unknown) (unknown) (unknown) (no date) (unknown) (unknown) Kidney infection (un its unknown) (unknown) (unknown) (no date) (unknown) (unknown) Last Menstural Cycle + Details (units unknown) (unknown) (unknown) (no date) (unknown) (unknown) Loc: [facility] (units unknown) (unknown) (unknown) (no date) (unknown) (unknown) [id number] (units unknown) (unknown) (unknown) (no date) (unknown) (unknown) Medical Histor y (units unknown) (unknown) (unknown) (no date) (unknown) (unknown) Mild persistent asth ma (units unknown) (unknown) (unknown) (no date) (unknown) (unknown) Other Menstrua l Period: Other (units unknown) (unknown) (unknown) (no date) (unknown) (unknown) PFSH (units unknown) (unknown) (unknown) (no date) (unknown) (unknown) Patient: Carmina Shukla MR#: (units unknown) (unknown) (unknown) (no date) (unknown) (unknown) Penicillins Al lergy (Intermediate, Verified 05/24/22 10:29) (units unknown) (unknown) (unknown) (no date) (unknown) (unknown) Pertussis Vacc matt [PERTUSSIS VACCINES] Allergy (Unknown, Verified 05/24/22 (units unknown) (unknown) (unknown) (no date) (unknown) (unknown) Rash (units unknown) (unknown) (unknown) (no date) (unknown) (unknown) Rash, throat w as tingly (units unknown) (unknown) (unknown) (no date) (unknown) (unknown) Reason For Visit (un its unknown) (unknown) (unknown) (no date) (unknown) (unknown) S/P laparoscop ic supracervical hysterectomy (04/04/18) (units unknown) (unknown) (unknown) (no date) (unknown) (unknown) Seizure (units unknown) (unknown) (unknown) (no date) (unknown) (unknown) Signed By: (units unknown) (unknown) (unknown) (no date) (unknown) (unknown) Smoking Status : Former smoker (units unknown) (unknown) (unknown) (no date) (unknown) (unknown) Social History (unit s unknown) (unknown) (unknown) (no date) (unknown) (unknown) Stomach pain, nausea, headache (units unknown) (unknown) (unknown) (no date) (unknown) (unknown) Surgical Histo ry (units unknown) (unknown) (unknown) (no date) (unknown) (unknown) This note may have been all or partially generated using voice recognition (units unknown) (unknown) (unknown) (no date) (unknown) (unknown) Tobacco + Subs tance Use (units unknown) (unknown) (unknown) (no date) (unknown) (unknown) Tobacco Status (unit s unknown) (unknown) (unknown) (no date) (unknown) (unknown) Visit Reasons: Acupuncture 04 (units unknown) (unknown) (unknown) (no date) (unknown) (unknown) amoxicillin Al lergy (Intermediate, Verified 05/24/22 10:29) (units unknown) (unknown) (unknown) (no date) (unknown) (unknown) azithromycin A llergy (Intermediate, Verified 05/24/22 10:29) (units unknown) (unknown) (unknown) (no date) (unknown) (unknown) ciprofloxacin Allergy (Intermediate, Verified 05/24/22 10:29) (units unknown) (unknown) (unknown) (no date) (unknown) (unknown) gluten Adverse Reaction (Mild, Verified 05/24/22 10:29) (units unknown) (unknown) (unknown) (no date) (unknown) (unknown) have occurred. If there are any questions, please contact the Medical Records (units unknown) (unknown) (unknown) (no date) (unknown) (unknown) household memb ers: spouse and children (units unknown) (unknown) (unknown) (no date) (unknown) (unknown) hydromorphone Allergy (Mild, Verified 05/24/22 10:29) (units unknown) (unknown) (unknown) (no date) (unknown) (unknown) ibuprofen Jeffrey rgy (Mild, Verified 05/24/22 10:29) (units unknown) (unknown) (unknown) (no date) (unknown) (unknown) may occur. Occ asional wrong-word or 'sound-alike' substitutions may have (units unknown) (unknown) (unknown) (no date) (unknown) (unknown) nickel Adverse Reaction (Mild, Verified 05/24/22 10:29) (units unknown) (unknown) (unknown) (no date) (unknown) (unknown) occurred due t o the inherent limitations of voice recognition software. Please (units unknown) (unknown) (unknown) (no date) (unknown) (unknown) read the note carefully and recognize, using context, where these substitutions (units unknown) (unknown) (unknown) (no date) (unknown) (unknown) software. Alth ough every effort is made to edit content, top lift nailer errors (units unknown) (unknown) Result panel 10 (unknown) (no date) (unknown) (unknown) (no value) (units unknown) (unknown) (unknown) (no date) (unknown) (unknown) 05/24/22 (units unknown) (unknown) (unknown) (no date) (unknown) (unknown) 05/24/22] (units unknown) (unknown) (unknown) (no date) (unknown) (unknown) 10:29) (units unknown) (unknown) (unknown) (no date) (unknown) (unknown) 10:35 (units unknown) (unknown) (unknown) (no date) (unknown) (unknown) 36 Y/O Female presents today for Acupuncture (units unknown) (unknown) (unknown) (no date) (unknown) (unknown) Age/Sex: 36 / F Date of Service: (units unknown) (unknown) (unknown) (no date) (unknown) (unknown) Allergies (units unknown) (unknown) (unknown) (no date) (unknown) (unknown) [place] [id number] (units unknown) (unknown) (unknown) (no date) (unknown) (unknown) Anxiety (units unknown) (unknown) (unknown) (no date) (unknown) (unknown) Asthma (units unknown) (unknown) (unknown) (no date) (unknown) (unknown) Attending Dr: Wes SCOTT (units unknown) (unknown) (unknown) (no date) (unknown) (unknown) BMI 20.2 (units unknown) (unknown) (unknown) (no date) (unknown) (unknown) BP 102/74 (units unknown) (unknown) (unknown) (no date) (unknown) (unknown) Blood Pressure Location Lt brachial (units unknown) (unknown) (unknown) (no date) (unknown) (unknown) Confirmed 05/24/22] (units unknown) (unknown) (unknown) (no date) (unknown) (unknown) : 5 Acct:[id number] (units unknown) (unknown) (unknown) (no date) (unknown) (unknown) Depression (units unknown) (unknown) (unknown) (no date) (unknown) (unknown) Dept at [phone]. (units unknown) (unknown) (unknown) (no date) (unknown) (unknown) Documented By: Wes Herrera 05/24/22 1029 (units unknown) (unknown) (unknown) (no date) (unknown) (unknown) Draft (units unknown) (unknown) (unknown) (no date) (unknown) (unknown) Family Practic e Office Visit (units unknown) (unknown) (unknown) (no date) (unknown) (unknown) [facility] (units unknown) (unknown) (unknown) (no date) (unknown) (unknown) [place] (units unknown) (unknown) (unknown) (no date) (unknown) (unknown) Gastrointestinal Ups et (units unknown) (unknown) (unknown) (no date) (unknown) (unknown) H/O explorator y laparotomy (units unknown) (unknown) (unknown) (no date) (unknown) (unknown) H/O left knee surger y (units unknown) (unknown) (unknown) (no date) (unknown) (unknown) HFA) 2 puff in halation BID #12 grams 03/13/22 [Rx Confirmed 05/24/22] (units unknown) (unknown) (unknown) (no date) (unknown) (unknown) Height 5 ft 3 in (un its unknown) (unknown) (unknown) (no date) (unknown) (unknown) History of ope n heart surgery (units unknown) (unknown) (unknown) (no date) (unknown) (unknown) History of surgery ( units unknown) (unknown) (unknown) (no date) (unknown) (unknown) Intake Note: (units unknown) (unknown) (unknown) (no date) (unknown) (unknown) Intake perform ed by: Татьяна [place] (units unknown) (unknown) (unknown) (no date) (unknown) (unknown) Intake (units unknown) (unknown) (unknown) (no date) (unknown) (unknown) Intake- Clincial Sta ff (units unknown) (unknown) (unknown) (no date) (unknown) (unknown) Irritation/redness ( units unknown) (unknown) (unknown) (no date) (unknown) (unknown) Kidney infection (un its unknown) (unknown) (unknown) (no date) (unknown) (unknown) Last Menstural Cycle + Details (units unknown) (unknown) (unknown) (no date) (unknown) (unknown) Loc: [facility] (units unknown) (unknown) (unknown) (no date) (unknown) (unknown) [id number] (units unknown) (unknown) (unknown) (no date) (unknown) (unknown) Medical Histor y (units unknown) (unknown) (unknown) (no date) (unknown) (unknown) Medications (units unknown) (unknown) (unknown) (no date) (unknown) (unknown) Mild persistent asth ma (units unknown) (unknown) (unknown) (no date) (unknown) (unknown) Other Menstrua l Period: Other (units unknown) (unknown) (unknown) (no date) (unknown) (unknown) Oxygen Deliver y Method room air (units unknown) (unknown) (unknown) (no date) (unknown) (unknown) PFSH (units unknown) (unknown) (unknown) (no date) (unknown) (unknown) Patient: Carmina Shukla MR#: (units unknown) (unknown) (unknown) (no date) (unknown) (unknown) Penicillins Al judy (Intermediate, Verified 05/24/22 10:29) (units unknown) (unknown) (unknown) (no date) (unknown) (unknown) Pertussis Vacc matt [PERTUSSIS VACCINES] Allergy (Unknown, Verified 05/24/22 (units unknown) (unknown) (unknown) (no date) (unknown) (unknown) Position Sitting (un its unknown) (unknown) (unknown) (no date) (unknown) (unknown) Pulse 70 (units unknown) (unknown) (unknown) (no date) (unknown) (unknown) Pulse Oximetry (%) 9 8 (units unknown) (unknown) (unknown) (no date) (unknown) (unknown) Pulse Source Monitor (units unknown) (unknown) (unknown) (no date) (unknown) (unknown) Rash (units unknown) (unknown) (unknown) (no date) (unknown) (unknown) Rash, throat w as tingly (units unknown) (unknown) (unknown) (no date) (unknown) (unknown) Reason For Visit (un its unknown) (unknown) (unknown) (no date) (unknown) (unknown) S/P laparoscop ic supracervical hysterectomy (04/04/18) (units unknown) (unknown) (unknown) (no date) (unknown) (unknown) Seizure (units unknown) (unknown) (unknown) (no date) (unknown) (unknown) Signed By: (units unknown) (unknown) (unknown) (no date) (unknown) (unknown) Smoking Status : Former smoker (units unknown) (unknown) (unknown) (no date) (unknown) (unknown) Social History (unit s unknown) (unknown) (unknown) (no date) (unknown) (unknown) Stomach pain, nausea, headache (units unknown) (unknown) (unknown) (no date) (unknown) (unknown) Surgical Histo ry (units unknown) (unknown) (unknown) (no date) (unknown) (unknown) This note may have been all or partially generated using voice recognition (units unknown) (unknown) (unknown) (no date) (unknown) (unknown) Tobacco + Subs tance Use (units unknown) (unknown) (unknown) (no date) (unknown) (unknown) Tobacco Status (unit s unknown) (unknown) (unknown) (no date) (unknown) (unknown) Visit Reasons: Acupuncture 04 (units unknown) (unknown) (unknown) (no date) (unknown) (unknown) Vitals (units unknown) (unknown) (unknown) (no date) (unknown) (unknown) Weight 114 lb 2 oz ( units unknown) (unknown) (unknown) (no date) (unknown) (unknown) albuterol sulf ate 90 mcg/actuation aerosol inhaler (ProAir HFA) 1 puff (units unknown) (unknown) (unknown) (no date) (unknown) (unknown) amoxicillin Al lergy (Intermediate, Verified 05/24/22 10:29) (units unknown) (unknown) (unknown) (no date) (unknown) (unknown) azithromycin A llergy (Intermediate, Verified 05/24/22 10:29) (units unknown) (unknown) (unknown) (no date) (unknown) (unknown) ciprofloxacin Allergy (Intermediate, Verified 05/24/22 10:29) (units unknown) (unknown) (unknown) (no date) (unknown) (unknown) fluticasone pr opionate 230 mcg-salmeterol 21 mcg/actuation HFA inhaler (Advair (units unknown) (unknown) (unknown) (no date) (unknown) (unknown) gluten Adverse Reaction (Mild, Verified 05/24/22 10:29) (units unknown) (unknown) (unknown) (no date) (unknown) (unknown) have occurred. If there are any questions, please contact the Medical Records (units unknown) (unknown) (unknown) (no date) (unknown) (unknown) household memb ers: spouse and children (units unknown) (unknown) (unknown) (no date) (unknown) (unknown) hydromorphone Allergy (Mild, Verified 05/24/22 10:29) (units unknown) (unknown) (unknown) (no date) (unknown) (unknown) ibuprofen Jeffrey rgy (Mild, Verified 05/24/22 10:29) (units unknown) (unknown) (unknown) (no date) (unknown) (unknown) inhalation Q6H PRN Adequate Ventilation #8.5 grams 03/08/22 [Rx Confirmed (units unknown) (unknown) (unknown) (no date) (unknown) (unknown) may occur. Occ asional wrong-word or 'sound-alike' substitutions may have (units unknown) (unknown) (unknown) (no date) (unknown) (unknown) methocarbamol 750 mg tablet 750 mg PO QID PRN muscle spasm #30 tabs 03/26/22 [Rx (units unknown) (unknown) (unknown) (no date) (unknown) (unknown) nickel Adverse Reaction (Mild, Verified 05/24/22 10:29) (units unknown) (unknown) (unknown) (no date) (unknown) (unknown) occurred due t o the inherent limitations of voice recognition software. Please (units unknown) (unknown) (unknown) (no date) (unknown) (unknown) omeprazole 20 mg capsule,delayed release 20 mg PO BID #60 caps 03/26/22 [Rx (units unknown) (unknown) (unknown) (no date) (unknown) (unknown) ondansetron 4 mg disintegrating tablet 4 mg PO QID PRN nausea and vomiting #14 (units unknown) (unknown) (unknown) (no date) (unknown) (unknown) read the note carefully and recognize, using context, where these substitutions (units unknown) (unknown) (unknown) (no date) (unknown) (unknown) software. Alth ough every effort is made to edit content, top lift nailer errors (units unknown) (unknown) (unknown) (no date) (unknown) (unknown) sumatriptan garcia ccinate 50 mg tablet (Imitrex) See Rx Instructions PO .COMPLEX #10 (units unknown) (unknown) (unknown) (no date) (unknown) (unknown) tabs 03/26/22 [Rx Confirmed 05/24/22] (units unknown) (unknown) (unknown) (no date) (unknown) (unknown) tabs 04/05/18 [Rx Confirmed 05/24/22] (units unknown) (unknown) Result panel 11 (unknown) (no date) (unknown) (unknown) (no value) (units unknown) (unknown) (unknown) (no date) (unknown) (unknown) 05/24/22 (units unknown) (unknown) (unknown) (no date) (unknown) (unknown) 05/24/22] (units unknown) (unknown) (unknown) (no date) (unknown) (unknown) 10:29) (units unknown) (unknown) (unknown) (no date) (unknown) (unknown) 10:35 (units unknown) (unknown) (unknown) (no date) (unknown) (unknown) 36 Y/O Female presents today for Acupuncture (units unknown) (unknown) (unknown) (no date) (unknown) (unknown) Age/Sex: 36 / F Date of Service: (units unknown) (unknown) (unknown) (no date) (unknown) (unknown) Allergies (units unknown) (unknown) (unknown) (no date) (unknown) (unknown) [place] [address] (units unknown) (unknown) (unknown) (no date) (unknown) (unknown) Anxiety (units unknown) (unknown) (unknown) (no date) (unknown) (unknown) Asthma (units unknown) (unknown) (unknown) (no date) (unknown) (unknown) Attending Dr: Wes SCOTT (units unknown) (unknown) (unknown) (no date) (unknown) (unknown) BMI 20.2 (units unknown) (unknown) (unknown) (no date) (unknown) (unknown) BP 102/74 (units unknown) (unknown) (unknown) (no date) (unknown) (unknown) Blood Pressure Location Lt brachial (units unknown) (unknown) (unknown) (no date) (unknown) (unknown) Confirmed 05/24/22] (units unknown) (unknown) (unknown) (no date) (unknown) (unknown) : 5 Acct:[id number] (units unknown) (unknown) (unknown) (no date) (unknown) (unknown) Depression (units unknown) (unknown) (unknown) (no date) (unknown) (unknown) Dept at [phone]. (units unknown) (unknown) (unknown) (no date) (unknown) (unknown) Details: (units unknown) (unknown) (unknown) (no date) (unknown) (unknown) Documented By: Wes Herrera 05/24/22 1029 (units unknown) (unknown) (unknown) (no date) (unknown) (unknown) Draft (units unknown) (unknown) (unknown) (no date) (unknown) (unknown) Family Practic e Office Visit (units unknown) (unknown) (unknown) (no date) (unknown) (unknown) [facility] (units unknown) (unknown) (unknown) (no date) (unknown) (unknown) [place] (units unknown) (unknown) (unknown) (no date) (unknown) (unknown) Gastrointestinal Ups et (units unknown) (unknown) (unknown) (no date) (unknown) (unknown) H/O explorator y laparotomy (units unknown) (unknown) (unknown) (no date) (unknown) (unknown) H/O left knee surger y (units unknown) (unknown) (unknown) (no date) (unknown) (unknown) HFA) 2 puff in halation BID #12 grams 03/13/22 [Rx Confirmed 05/24/22] (units unknown) (unknown) (unknown) (no date) (unknown) (unknown) HPI (units unknown) (unknown) (unknown) (no date) (unknown) (unknown) Height 160.02 cm (un its unknown) (unknown) (unknown) (no date) (unknown) (unknown) History of ope n heart surgery (units unknown) (unknown) (unknown) (no date) (unknown) (unknown) History of surgery ( units unknown) (unknown) (unknown) (no date) (unknown) (unknown) Intake Note: (units unknown) (unknown) (unknown) (no date) (unknown) (unknown) Intake perform ed by: Татьяна Llanes (units unknown) (unknown) (unknown) (no date) (unknown) (unknown) Intake (units unknown) (unknown) (unknown) (no date) (unknown) (unknown) Intake- Clincial Sta ff (units unknown) (unknown) (unknown) (no date) (unknown) (unknown) Irritation/redness ( units unknown) (unknown) (unknown) (no date) (unknown) (unknown) Kidney infection (un its unknown) (unknown) (unknown) (no date) (unknown) (unknown) Last Menstural Cycle + Details (units unknown) (unknown) (unknown) (no date) (unknown) (unknown) Loc: [facility] (units unknown) (unknown) (unknown) (no date) (unknown) (unknown) [id number] (units unknown) (unknown) (unknown) (no date) (unknown) (unknown) Medical Histor y (units unknown) (unknown) (unknown) (no date) (unknown) (unknown) Medications (units unknown) (unknown) (unknown) (no date) (unknown) (unknown) Mild persistent asth ma (units unknown) (unknown) (unknown) (no date) (unknown) (unknown) Other Menstrua l Period: Other (units unknown) (unknown) (unknown) (no date) (unknown) (unknown) Oxygen Deliver y Method room air (units unknown) (unknown) (unknown) (no date) (unknown) (unknown) PFSH (units unknown) (unknown) (unknown) (no date) (unknown) (unknown) Patient: Carmina Shukla MR#: (units unknown) (unknown) (unknown) (no date) (unknown) (unknown) Penicillins Al dwaynegy (Intermediate, Verified 05/24/22 10:29) (units unknown) (unknown) (unknown) (no date) (unknown) (unknown) Pertussis Vacc matt [PERTUSSIS VACCINES] Allergy (Unknown, Verified 05/24/22 (units unknown) (unknown) (unknown) (no date) (unknown) (unknown) Position Sitting (un its unknown) (unknown) (unknown) (no date) (unknown) (unknown) Pulse 70 (units unknown) (unknown) (unknown) (no date) (unknown) (unknown) Pulse Oximetry (%) 9 8 (units unknown) (unknown) (unknown) (no date) (unknown) (unknown) Pulse Source Monitor (units unknown) (unknown) (unknown) (no date) (unknown) (unknown) Rash (units unknown) (unknown) (unknown) (no date) (unknown) (unknown) Rash, throat w as tingly (units unknown) (unknown) (unknown) (no date) (unknown) (unknown) Reason For Visit (un its unknown) (unknown) (unknown) (no date) (unknown) (unknown) S/P laparoscop ic supracervical hysterectomy (04/04/18) (units unknown) (unknown) (unknown) (no date) (unknown) (unknown) Seizure (units unknown) (unknown) (unknown) (no date) (unknown) (unknown) Signed By: (units unknown) (unknown) (unknown) (no date) (unknown) (unknown) Smoking Status : Former smoker (units unknown) (unknown) (unknown) (no date) (unknown) (unknown) Social History (unit s unknown) (unknown) (unknown) (no date) (unknown) (unknown) Stomach pain, nausea, headache (units unknown) (unknown) (unknown) (no date) (unknown) (unknown) Surgical Histo ry (units unknown) (unknown) (unknown) (no date) (unknown) (unknown) This note may have been all or partially generated using voice recognition (units unknown) (unknown) (unknown) (no date) (unknown) (unknown) Tobacco + Subs tance Use (units unknown) (unknown) (unknown) (no date) (unknown) (unknown) Tobacco Status (unit s unknown) (unknown) (unknown) (no date) (unknown) (unknown) Visit Reasons: Acupuncture 04 (units unknown) (unknown) (unknown) (no date) (unknown) (unknown) Vitals (units unknown) (unknown) (unknown) (no date) (unknown) (unknown) Weight 51.766 kg (un its unknown) (unknown) (unknown) (no date) (unknown) (unknown) albuterol sulf ate 90 mcg/actuation aerosol inhaler (ProAir HFA) 1 puff (units unknown) (unknown) (unknown) (no date) (unknown) (unknown) amoxicillin Al lergy (Intermediate, Verified 05/24/22 10:29) (units unknown) (unknown) (unknown) (no date) (unknown) (unknown) azithromycin A llergy (Intermediate, Verified 05/24/22 10:29) (units unknown) (unknown) (unknown) (no date) (unknown) (unknown) ciprofloxacin Allergy (Intermediate, Verified 05/24/22 10:29) (units unknown) (unknown) (unknown) (no date) (unknown) (unknown) fluticasone pr opionate 230 mcg-salmeterol 21 mcg/actuation HFA inhaler (Advair (units unknown) (unknown) (unknown) (no date) (unknown) (unknown) gluten Adverse Reaction (Mild, Verified 05/24/22 10:29) (units unknown) (unknown) (unknown) (no date) (unknown) (unknown) have occurred. If there are any questions, please contact the Medical Records (units unknown) (unknown) (unknown) (no date) (unknown) (unknown) household memb ers: spouse and children (units unknown) (unknown) (unknown) (no date) (unknown) (unknown) hydromorphone Allergy (Mild, Verified 05/24/22 10:29) (units unknown) (unknown) (unknown) (no date) (unknown) (unknown) ibuprofen Jeffrey rgy (Mild, Verified 05/24/22 10:29) (units unknown) (unknown) (unknown) (no date) (unknown) (unknown) inhalation Q6H PRN Adequate Ventilation #8.5 grams 03/08/22 [Rx Confirmed (units unknown) (unknown) (unknown) (no date) (unknown) (unknown) may occur. Occ asional wrong-word or 'sound-alike' substitutions may have (units unknown) (unknown) (unknown) (no date) (unknown) (unknown) methocarbamol 750 mg tablet 750 mg PO QID PRN muscle spasm #30 tabs 03/26/22 [Rx (units unknown) (unknown) (unknown) (no date) (unknown) (unknown) nickel Adverse Reaction (Mild, Verified 05/24/22 10:29) (units unknown) (unknown) (unknown) (no date) (unknown) (unknown) occurred due t o the inherent limitations of voice recognition software. Please (units unknown) (unknown) (unknown) (no date) (unknown) (unknown) omeprazole 20 mg capsule,delayed release 20 mg PO BID #60 caps 03/26/22 [Rx (units unknown) (unknown) (unknown) (no date) (unknown) (unknown) ondansetron 4 mg disintegrating tablet 4 mg PO QID PRN nausea and vomiting #14 (units unknown) (unknown) (unknown) (no date) (unknown) (unknown) read the note carefully and recognize, using context, where these substitutions (units unknown) (unknown) (unknown) (no date) (unknown) (unknown) smiliniranjan tx, 40 needles neutral. last treatment did help. will schedule more (units unknown) (unknown) (unknown) (no date) (unknown) (unknown) software. Alth ough every effort is made to edit content, top lift nailer errors (units unknown) (unknown) (unknown) (no date) (unknown) (unknown) sumatriptan garcia ccinate 50 mg tablet (Imitrex) See Rx Instructions PO .COMPLEX #10 (units unknown) (unknown) (unknown) (no date) (unknown) (unknown) tabs 03/26/22 [Rx Confirmed 05/24/22] (units unknown) (unknown) (unknown) (no date) (unknown) (unknown) tabs 04/05/18 [Rx Confirmed 05/24/22] (units unknown) (unknown) (unknown) (no date) (unknown) (unknown) tx. chest pain and breast tenderness improving. on antibx for eye infection. (units unknown) (unknown) (unknown) (no date) (unknown) (unknown) was upset abou t me running late initially but better after we finished. (units unknown) (unknown) Result panel 12 (unknown) (no date) (unknown) (unknown) (no value) (units unknown) (unknown) (unknown) (no date) (unknown) (unknown) (1) Migraine: (units unknown) (unknown) (unknown) (no date) (unknown) (unknown) (2) Neck pain, chronic: (units unknown) (unknown) (unknown) (no date) (unknown) (unknown) (3) Atypical c hest pain: (units unknown) (unknown) (unknown) (no date) (unknown) (unknown) 05/24/22 (units unknown) (unknown) (unknown) (no date) (unknown) (unknown) 05/24/22] (units unknown) (unknown) (unknown) (no date) (unknown) (unknown) 10:29) (units unknown) (unknown) (unknown) (no date) (unknown) (unknown) 10:35 (units unknown) (unknown) (unknown) (no date) (unknown) (unknown) 36 Y/O Female presents today for Acupuncture (units unknown) (unknown) (unknown) (no date) (unknown) (unknown) 36-year-old fe male presents for follow-up acupuncture treatment. She has seen (units unknown) (unknown) (unknown) (no date) (unknown) (unknown) Affect: normal affec t (units unknown) (unknown) (unknown) (no date) (unknown) (unknown) Age/Sex: 36 / F Date of Service: (units unknown) (unknown) (unknown) (no date) (unknown) (unknown) All systems re viewed + are unremarkable except as noted in HPI and below (units unknown) (unknown) (unknown) (no date) (unknown) (unknown) Allergies (units unknown) (unknown) (unknown) (no date) (unknown) (unknown) [place] [address] (units unknown) (unknown) (unknown) (no date) (unknown) (unknown) Anxiety (units unknown) (unknown) (unknown) (no date) (unknown) (unknown) Appearance: gr ossly normal (units unknown) (unknown) (unknown) (no date) (unknown) (unknown) Assessment + Plan (u nits unknown) (unknown) (unknown) (no date) (unknown) (unknown) Asthma (units unknown) (unknown) (unknown) (no date) (unknown) (unknown) Attending Dr: Wes SCOTT (units unknown) (unknown) (unknown) (no date) (unknown) (unknown) Attitude: cooperativ e (units unknown) (unknown) (unknown) (no date) (unknown) (unknown) BMI 20.2 (units unknown) (unknown) (unknown) (no date) (unknown) (unknown) BP 102/74 (units unknown) (unknown) (unknown) (no date) (unknown) (unknown) Blood Pressure Location Lt brachial (units unknown) (unknown) (unknown) (no date) (unknown) (unknown) Cardio (units unknown) (unknown) (unknown) (no date) (unknown) (unknown) Chief Complaint (uni ts unknown) (unknown) (unknown) (no date) (unknown) (unknown) Chief Complain t: Follow-up acupuncture (units unknown) (unknown) (unknown) (no date) (unknown) (unknown) Cognition: nor mal cognition (units unknown) (unknown) (unknown) (no date) (unknown) (unknown) Confirmed 05/24/22] (units unknown) (unknown) (unknown) (no date) (unknown) (unknown) Const (units unknown) (unknown) (unknown) (no date) (unknown) (unknown) : 5 Acct:[id number] (units unknown) (unknown) (unknown) (no date) (unknown) (unknown) Depression (units unknown) (unknown) (unknown) (no date) (unknown) (unknown) Dept at [phone]. (units unknown) (unknown) (unknown) (no date) (unknown) (unknown) Details: (units unknown) (unknown) (unknown) (no date) (unknown) (unknown) Documented By: Wes Herrera 05/24/22 1029 (units unknown) (unknown) (unknown) (no date) (unknown) (unknown) Draft (units unknown) (unknown) (unknown) (no date) (unknown) (unknown) Effort + Inspe ction: normal respiratory effort (units unknown) (unknown) (unknown) (no date) (unknown) (unknown) Exam (units unknown) (unknown) (unknown) (no date) (unknown) (unknown) Eyes (units unknown) (unknown) (unknown) (no date) (unknown) (unknown) Family Practic e Office Visit (units unknown) (unknown) (unknown) (no date) (unknown) (unknown) [facility] (units unknown) (unknown) (unknown) (no date) (unknown) (unknown) [place] (units unknown) (unknown) (unknown) (no date) (unknown) (unknown) GV14, GV16, bi lateral GB20, BL10, SI9, SI10, SI11, SI13, SI14, SI15, SI16 and (units unknown) (unknown) (unknown) (no date) (unknown) (unknown) Gait: normal gait (u nits unknown) (unknown) (unknown) (no date) (unknown) (unknown) Gastrointestinal Ups et (units unknown) (unknown) (unknown) (no date) (unknown) (unknown) General: appea raven normal, both eyes and all related structures (units unknown) (unknown) (unknown) (no date) (unknown) (unknown) General: coope rative, healthy appearing and no acute distress (units unknown) (unknown) (unknown) (no date) (unknown) (unknown) General: no ra shes or lesions noted (units unknown) (unknown) (unknown) (no date) (unknown) (unknown) General: patie nt alert, patient awake and patient oriented x3 (units unknown) (unknown) (unknown) (no date) (unknown) (unknown) H/O explorator y laparotomy (units unknown) (unknown) (unknown) (no date) (unknown) (unknown) H/O left knee surger y (units unknown) (unknown) (unknown) (no date) (unknown) (unknown) HENMT (units unknown) (unknown) (unknown) (no date) (unknown) (unknown) HFA) 2 puff in halation BID #12 grams 03/13/22 [Rx Confirmed 05/24/22] (units unknown) (unknown) (unknown) (no date) (unknown) (unknown) HPI (units unknown) (unknown) (unknown) (no date) (unknown) (unknown) Head: normal t o inspection (units unknown) (unknown) (unknown) (no date) (unknown) (unknown) Height 160.02 cm (un its unknown) (unknown) (unknown) (no date) (unknown) (unknown) History of ope n heart surgery (units unknown) (unknown) (unknown) (no date) (unknown) (unknown) History of surgery ( units unknown) (unknown) (unknown) (no date) (unknown) (unknown) Intake Note: (units unknown) (unknown) (unknown) (no date) (unknown) (unknown) Intake perform ed by: Татьяна Llanes (units unknown) (unknown) (unknown) (no date) (unknown) (unknown) Intake (units unknown) (unknown) (unknown) (no date) (unknown) (unknown) Intake- Clincial Sta ff (units unknown) (unknown) (unknown) (no date) (unknown) (unknown) Intractability : not intractable Migraine type: without aura Status (units unknown) (unknown) (unknown) (no date) (unknown) (unknown) Irritation/redness ( units unknown) (unknown) (unknown) (no date) (unknown) (unknown) Kidney infection (un its unknown) (unknown) (unknown) (no date) (unknown) (unknown) Last Menstural Cycle + Details (units unknown) (unknown) (unknown) (no date) (unknown) (unknown) Loc: [facility] (units unknown) (unknown) (unknown) (no date) (unknown) (unknown) [id number] (units unknown) (unknown) (unknown) (no date) (unknown) (unknown) Medical Histor y (units unknown) (unknown) (unknown) (no date) (unknown) (unknown) Medications (units unknown) (unknown) (unknown) (no date) (unknown) (unknown) Mental Status: mental status grossly normal (units unknown) (unknown) (unknown) (no date) (unknown) (unknown) Migraine witho ut aura, not intractable, without status migrainosus (units unknown) (unknown) (unknown) (no date) (unknown) (unknown) Mild persistent asth ma (units unknown) (unknown) (unknown) (no date) (unknown) (unknown) Mood: congruent mood (units unknown) (unknown) (unknown) (no date) (unknown) (unknown) Neuro (units unknown) (unknown) (unknown) (no date) (unknown) (unknown) Of note, minerva richter was initially quite frustrated that provider was running 25 (units unknown) (unknown) (unknown) (no date) (unknown) (unknown) Other Menstrua l Period: Other (units unknown) (unknown) (unknown) (no date) (unknown) (unknown) Oxygen Deliver y Method room air (units unknown) (unknown) (unknown) (no date) (unknown) (unknown) PFSH (units unknown) (unknown) (unknown) (no date) (unknown) (unknown) 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, 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 (units unknown) (unknown) (unknown) (no date) (unknown) (unknown) Patient: Carmina Shukla MR#: (units unknown) (unknown) (unknown) (no date) (unknown) (unknown) Penicillins Al dwaynegy (Intermediate, Verified 05/24/22 10:29) (units unknown) (unknown) (unknown) (no date) (unknown) (unknown) Pertussis Vacc matt [PERTUSSIS VACCINES] Allergy (Unknown, Verified 05/24/22 (units unknown) (unknown) (unknown) (no date) (unknown) (unknown) Plan (units unknown) (unknown) (unknown) (no date) (unknown) (unknown) Position Sitting (un its unknown) (unknown) (unknown) (no date) (unknown) (unknown) Proper correctional counselor/case manager ing and consent completed prior to initial procedure. (units unknown) (unknown) (unknown) (no date) (unknown) (unknown) Psych (units unknown) (unknown) (unknown) (no date) (unknown) (unknown) Pt tolerated w ell with no complications. In particular, no signs of needle (units unknown) (unknown) (unknown) (no date) (unknown) (unknown) Pulse 70 (units unknown) (unknown) (unknown) (no date) (unknown) (unknown) Pulse Oximetry (%) 9 8 (units unknown) (unknown) (unknown) (no date) (unknown) (unknown) Pulse Source Monitor (units unknown) (unknown) (unknown) (no date) (unknown) (unknown) Qualifiers: (units unknown) (unknown) (unknown) (no date) (unknown) (unknown) ROS (units unknown) (unknown) (unknown) (no date) (unknown) (unknown) Rash (units unknown) (unknown) (unknown) (no date) (unknown) (unknown) Rash, throat w as tingly (units unknown) (unknown) (unknown) (no date) (unknown) (unknown) Rate: regular rate ( units unknown) (unknown) (unknown) (no date) (unknown) (unknown) Reason For Visit (un its unknown) (unknown) (unknown) (no date) (unknown) (unknown) Record reviewe d, pt interviewed and determined to be an appropriate acupuncture (units unknown) (unknown) (unknown) (no date) (unknown) (unknown) Resp (units unknown) (unknown) (unknown) (no date) (unknown) (unknown) S/P laparoscop ic supracervical hysterectomy (04/04/18) (units unknown) (unknown) (unknown) (no date) (unknown) (unknown) SY/TY versus C T pens. If she would like to focus on a different area and/or (units unknown) (unknown) (unknown) (no date) (unknown) (unknown) Seizure (units unknown) (unknown) (unknown) (no date) (unknown) (unknown) She had been experiencing pain and problems in several areas, including atypical (units unknown) (unknown) (unknown) (no date) (unknown) (unknown) Signed By: (units unknown) (unknown) (unknown) (no date) (unknown) (unknown) Skin (units unknown) (unknown) (unknown) (no date) (unknown) (unknown) Smoking Status : Former smoker (units unknown) (unknown) (unknown) (no date) (unknown) (unknown) Social History (unit s unknown) (unknown) (unknown) (no date) (unknown) (unknown) Speech: speech jt l (units unknown) (unknown) (unknown) (no date) (unknown) (unknown) Status: Inactive (un its unknown) (unknown) (unknown) (no date) (unknown) (unknown) Stomach pain, nausea, headache (units unknown) (unknown) (unknown) (no date) (unknown) (unknown) Surgical Histo ry (units unknown) (unknown) (unknown) (no date) (unknown) (unknown) This note may have been all or partially generated using voice recognition (units unknown) (unknown) (unknown) (no date) (unknown) (unknown) Thought Conten t: normal (units unknown) (unknown) (unknown) (no date) (unknown) (unknown) Thought Proces s: normal (units unknown) (unknown) (unknown) (no date) (unknown) (unknown) Tobacco + Subs tance Use (units unknown) (unknown) (unknown) (no date) (unknown) (unknown) Tobacco Status (unit s unknown) (unknown) (unknown) (no date) (unknown) (unknown) Today we re-ev aluated her condition and discussed plan of care including (units unknown) (unknown) (unknown) (no date) (unknown) (unknown) Visit Reasons: Acupuncture 04 (units unknown) (unknown) (unknown) (no date) (unknown) (unknown) Vitals (units unknown) (unknown) (unknown) (no date) (unknown) (unknown) Weight 51.766 kg (un its unknown) (unknown) (unknown) (no date) (unknown) (unknown) albuterol sulf ate 90 mcg/actuation aerosol inhaler (ProAir HFA) 1 puff (units unknown) (unknown) (unknown) (no date) (unknown) (unknown) amoxicillin Al lergy (Intermediate, Verified 05/24/22 10:29) (units unknown) (unknown) (unknown) (no date) (unknown) (unknown) azithromycin A llergy (Intermediate, Verified 05/24/22 10:29) (units unknown) (unknown) (unknown) (no date) (unknown) (unknown) [facility]. Verified has no contraindications. (units unknown) (unknown) (unknown) (no date) (unknown) (unknown) change will he lp with some of her musculoskeletal issues. (units unknown) (unknown) (unknown) (no date) (unknown) (unknown) chest pain, he adaches, left TMJ pain and neck pain left greater than right. (units unknown) (unknown) (unknown) (no date) (unknown) (unknown) ciprofloxacin Allergy (Intermediate, Verified 05/24/22 10:29) (units unknown) (unknown) (unknown) (no date) (unknown) (unknown) clinical informatics educator , both of which she declined. We completed the treatment as (units unknown) (unknown) (unknown) (no date) (unknown) (unknown) consider same or similar treatment with or without global energetic treatment on (units unknown) (unknown) (unknown) (no date) (unknown) (unknown) consider supin e approach, consider local chest wall points and/or TMJ local (units unknown) (unknown) (unknown) (no date) (unknown) (unknown) due to patient care. Offered her the option to reschedule and/or speak with the (units unknown) (unknown) (unknown) (no date) (unknown) (unknown) fluticasone pr opionate 230 mcg-salmeterol 21 mcg/actuation HFA inhaler (Advair (units unknown) (unknown) (unknown) (no date) (unknown) (unknown) gluten Adverse Reaction (Mild, Verified 05/24/22 10:29) (units unknown) (unknown) (unknown) (no date) (unknown) (unknown) have occurred. If there are any questions, please contact the Medical Records (units unknown) (unknown) (unknown) (no date) (unknown) (unknown) helped with he r pain. She had also been suffering from atypical chest pain (units unknown) (unknown) (unknown) (no date) (unknown) (unknown) household memb ers: spouse and children (units unknown) (unknown) (unknown) (no date) (unknown) (unknown) hydromorphone Allergy (Mild, Verified 05/24/22 10:29) (units unknown) (unknown) (unknown) (no date) (unknown) (unknown) ibuprofen Jeffrey rgy (Mild, Verified 05/24/22 10:29) (units unknown) (unknown) (unknown) (no date) (unknown) (unknown) inhalation Q6H PRN Adequate Ventilation #8.5 grams 03/08/22 [Rx Confirmed (units unknown) (unknown) (unknown) (no date) (unknown) (unknown) may occur. Occ asional wrong-word or 'sound-alike' substitutions may have (units unknown) (unknown) (unknown) (no date) (unknown) (unknown) me once for tr eatment focused primarily on her neck pain and does feel that this (units unknown) (unknown) (unknown) (no date) (unknown) (unknown) methocarbamol 750 mg tablet 750 mg PO QID PRN muscle spasm #30 tabs 03/26/22 [Rx (units unknown) (unknown) (unknown) (no date) (unknown) (unknown) migrainosus pr esence: without status migrainosus Qualified Code(s): G43.009 (units unknown) (unknown) (unknown) (no date) (unknown) (unknown) minutes late. I did apologize for her inconvenience, noting that I was delayed (units unknown) (unknown) (unknown) (no date) (unknown) (unknown) nickel Adverse Reaction (Mild, Verified 05/24/22 10:29) (units unknown) (unknown) (unknown) (no date) (unknown) (unknown) occurred due t o the inherent limitations of voice recognition software. Please (units unknown) (unknown) (unknown) (no date) (unknown) (unknown) omeprazole 20 mg capsule,delayed release 20 mg PO BID #60 caps 03/26/22 [Rx (units unknown) (unknown) (unknown) (no date) (unknown) (unknown) ondansetron 4 mg disintegrating tablet 4 mg PO QID PRN nausea and vomiting #14 (units unknown) (unknown) (unknown) (no date) (unknown) (unknown) planned and sh e appeared to be feeling less frustrated by the end of the visit. (units unknown) (unknown) (unknown) (no date) (unknown) (unknown) points along i nner bladder line of the upper thoracic region in neutral (units unknown) (unknown) (unknown) (no date) (unknown) (unknown) points with or without global energetic treatment. (units unknown) (unknown) (unknown) (no date) (unknown) (unknown) read the note carefully and recognize, using context, where these substitutions (units unknown) (unknown) (unknown) (no date) (unknown) (unknown) shock. EBL: 0 mL. Provided discharge instructions. Pt ambulated from clinic (units unknown) (unknown) (unknown) (no date) (unknown) (unknown) software. Alth ough every effort is made to edit content, top lift nailer errors (units unknown) (unknown) (unknown) (no date) (unknown) (unknown) specific acupu ncture treatments moving forward. (units unknown) (unknown) (unknown) (no date) (unknown) (unknown) sumatriptan garcia ccinate 50 mg tablet (Imitrex) See Rx Instructions PO .COMPLEX #10 (units unknown) (unknown) (unknown) (no date) (unknown) (unknown) tabs 03/26/22 [Rx Confirmed 05/24/22] (units unknown) (unknown) (unknown) (no date) (unknown) (unknown) tabs 04/05/18 [Rx Confirmed 05/24/22] (units unknown) (unknown) (unknown) (no date) (unknown) (unknown) technique x 25 minutes. (units unknown) (unknown) (unknown) (no date) (unknown) (unknown) to carry heavy trays. 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 (units unknown) (unknown) (unknown) (no date) (unknown) (unknown) which she feel s is improving, although the improvement may or may not be related (units unknown) (unknown) (unknown) (no date) (unknown) (unknown) without diffic ulty. F/U 1-2 weeks. Depending on response to today's treatment, (units unknown) (unknown) Result panel 13 (unknown) (no date) (unknown) (unknown) (no value) (units unknown) (unknown) (unknown) (no date) (unknown) (unknown) (1) Migraine: (units unknown) (unknown) (unknown) (no date) (unknown) (unknown) (2) Neck pain, chronic: (units unknown) (unknown) (unknown) (no date) (unknown) (unknown) (3) Atypical c hest pain: (units unknown) (unknown) (unknown) (no date) (unknown) (unknown) 05/24/22 (units unknown) (unknown) (unknown) (no date) (unknown) (unknown) 05/27/22 1311 (units unknown) (unknown) (unknown) (no date) (unknown) (unknown) 10:29) (units unknown) (unknown) (unknown) (no date) (unknown) (unknown) 10:35 (units unknown) (unknown) (unknown) (no date) (unknown) (unknown) 36 Y/O Female presents today for Acupuncture (units unknown) (unknown) (unknown) (no date) (unknown) (unknown) 36-year-old fe male presents for follow-up acupuncture treatment. She has seen (units unknown) (unknown) (unknown) (no date) (unknown) (unknown) 8.5 grams 0RF Adequate Ventilation (units unknown) (unknown) (unknown) (no date) (unknown) (unknown) 8.5 grams 1RF shortness of breath or wheezing (units unknown) (unknown) (unknown) (no date) (unknown) (unknown) Affect: normal affec t (units unknown) (unknown) (unknown) (no date) (unknown) (unknown) Age/Sex: 36 / F Date of Service: (units unknown) (unknown) (unknown) (no date) (unknown) (unknown) All systems re viewed + are unremarkable except as noted in HPI and below (units unknown) (unknown) (unknown) (no date) (unknown) (unknown) Allergies (units unknown) (unknown) (unknown) (no date) (unknown) (unknown) [place] [address] (units unknown) (unknown) (unknown) (no date) (unknown) (unknown) Anxiety (units unknown) (unknown) (unknown) (no date) (unknown) (unknown) Appearance: gr ossly normal (units unknown) (unknown) (unknown) (no date) (unknown) (unknown) Assessment + Plan (u nits unknown) (unknown) (unknown) (no date) (unknown) (unknown) Asthma (units unknown) (unknown) (unknown) (no date) (unknown) (unknown) Attending Dr: Wes SCOTT (units unknown) (unknown) (unknown) (no date) (unknown) (unknown) Attitude: cooperativ e (units unknown) (unknown) (unknown) (no date) (unknown) (unknown) BMI 20.2 (units unknown) (unknown) (unknown) (no date) (unknown) (unknown) BP 102/74 (units unknown) (unknown) (unknown) (no date) (unknown) (unknown) Blood Pressure Location Lt brachial (units unknown) (unknown) (unknown) (no date) (unknown) (unknown) Cardio (units unknown) (unknown) (unknown) (no date) (unknown) (unknown) Changed (units unknown) (unknown) (unknown) (no date) (unknown) (unknown) Chief Complaint (uni ts unknown) (unknown) (unknown) (no date) (unknown) (unknown) Chief Complain t: Follow-up acupuncture (units unknown) (unknown) (unknown) (no date) (unknown) (unknown) Cognition: nor mal cognition (units unknown) (unknown) (unknown) (no date) (unknown) (unknown) Confirmed 05/24/22] (units unknown) (unknown) (unknown) (no date) (unknown) (unknown) Confirmed 05/27/22] (units unknown) (unknown) (unknown) (no date) (unknown) (unknown) Const (units unknown) (unknown) (unknown) (no date) (unknown) (unknown) : 5 Acct:[id number] (units unknown) (unknown) (unknown) (no date) (unknown) (unknown) Depression (units unknown) (unknown) (unknown) (no date) (unknown) (unknown) Dept at . (units unknown) (unknown) (unknown) (no date) (unknown) (unknown) Details: (units unknown) (unknown) (unknown) (no date) (unknown) (unknown) Documented By: Wes Herrera 05/24/22 1029 (units unknown) (unknown) (unknown) (no date) (unknown) (unknown) Effort + Inspe ction: normal respiratory effort (units unknown) (unknown) (unknown) (no date) (unknown) (unknown) Exam (units unknown) (unknown) (unknown) (no date) (unknown) (unknown) Eyes (units unknown) (unknown) (unknown) (no date) (unknown) (unknown) Family Practic e Office Visit (units unknown) (unknown) (unknown) (no date) (unknown) (unknown) [facility] (units unknown) (unknown) (unknown) (no date) (unknown) (unknown) [place] (units unknown) (unknown) (unknown) (no date) (unknown) (unknown) From albuterol sulfate 90 mcg/actuation (ProAir HFA) 1 puff inhalation Q6H PRN (units unknown) (unknown) (unknown) (no date) (unknown) (unknown) GV14, GV16, bi lateral GB20, BL10, SI9, SI10, SI11, SI13, SI14, SI15, SI16 and (units unknown) (unknown) (unknown) (no date) (unknown) (unknown) Gait: normal gait (u nits unknown) (unknown) (unknown) (no date) (unknown) (unknown) Gastrointestinal Ups et (units unknown) (unknown) (unknown) (no date) (unknown) (unknown) General: appea raven normal, both eyes and all related structures (units unknown) (unknown) (unknown) (no date) (unknown) (unknown) General: coope rative, healthy appearing and no acute distress (units unknown) (unknown) (unknown) (no date) (unknown) (unknown) General: no ra shes or lesions noted (units unknown) (unknown) (unknown) (no date) (unknown) (unknown) General: patie nt alert, patient awake and patient oriented x3 (units unknown) (unknown) (unknown) (no date) (unknown) (unknown) H/O explorator y laparotomy (units unknown) (unknown) (unknown) (no date) (unknown) (unknown) H/O left knee surger y (units unknown) (unknown) (unknown) (no date) (unknown) (unknown) HENMT (units unknown) (unknown) (unknown) (no date) (unknown) (unknown) HFA) 2 puff in halation BID #12 grams 03/13/22 [Rx Confirmed 05/24/22] (units unknown) (unknown) (unknown) (no date) (unknown) (unknown) HPI (units unknown) (unknown) (unknown) (no date) (unknown) (unknown) Head: normal t o inspection (units unknown) (unknown) (unknown) (no date) (unknown) (unknown) Height 160.02 cm (un its unknown) (unknown) (unknown) (no date) (unknown) (unknown) History of ope n heart surgery (units unknown) (unknown) (unknown) (no date) (unknown) (unknown) History of surgery ( units unknown) (unknown) (unknown) (no date) (unknown) (unknown) Intake Note: (units unknown) (unknown) (unknown) (no date) (unknown) (unknown) Intake perform ed by: Татьяна Llanes (units unknown) (unknown) (unknown) (no date) (unknown) (unknown) Intake (units unknown) (unknown) (unknown) (no date) (unknown) (unknown) Intake- Clincial Sta ff (units unknown) (unknown) (unknown) (no date) (unknown) (unknown) Intractability : not intractable Migraine type: without aura Status (units unknown) (unknown) (unknown) (no date) (unknown) (unknown) Irritation/redness ( units unknown) (unknown) (unknown) (no date) (unknown) (unknown) Kidney infection (un its unknown) (unknown) (unknown) (no date) (unknown) (unknown) Last Menstural Cycle + Details (units unknown) (unknown) (unknown) (no date) (unknown) (unknown) Loc: [facility] (units unknown) (unknown) (unknown) (no date) (unknown) (unknown) [id number] (units unknown) (unknown) (unknown) (no date) (unknown) (unknown) Medical Histor y (units unknown) (unknown) (unknown) (no date) (unknown) (unknown) Medications (units unknown) (unknown) (unknown) (no date) (unknown) (unknown) Medications: (units unknown) (unknown) (unknown) (no date) (unknown) (unknown) Mental Status: mental status grossly normal (units unknown) (unknown) (unknown) (no date) (unknown) (unknown) Migraine witho ut aura, not intractable, without status migrainosus (units unknown) (unknown) (unknown) (no date) (unknown) (unknown) Mild persistent asth ma (units unknown) (unknown) (unknown) (no date) (unknown) (unknown) Mood: congruent mood (units unknown) (unknown) (unknown) (no date) (unknown) (unknown) Neuro (units unknown) (unknown) (unknown) (no date) (unknown) (unknown) Of note, minerva richter was initially quite frustrated that provider was running 25 (units unknown) (unknown) (unknown) (no date) (unknown) (unknown) Other Menstrua l Period: Other (units unknown) (unknown) (unknown) (no date) (unknown) (unknown) Oxygen Deliver y Method room air (units unknown) (unknown) (unknown) (no date) (unknown) (unknown) PFSH (units unknown) (unknown) (unknown) (no date) (unknown) (unknown) 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, 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 (units unknown) (unknown) (unknown) (no date) (unknown) (unknown) Patient: Carmina Shukla MR#: (units unknown) (unknown) (unknown) (no date) (unknown) (unknown) Penicillins Al dwaynegy (Intermediate, Verified 05/24/22 10:29) (units unknown) (unknown) (unknown) (no date) (unknown) (unknown) Pertussis Vacc matt [PERTUSSIS VACCINES] Allergy (Unknown, Verified 05/24/22 (units unknown) (unknown) (unknown) (no date) (unknown) (unknown) Plan (units unknown) (unknown) (unknown) (no date) (unknown) (unknown) Position Sitting (un its unknown) (unknown) (unknown) (no date) (unknown) (unknown) Proper correctional counselor/case manager ing and consent completed prior to initial procedure. (units unknown) (unknown) (unknown) (no date) (unknown) (unknown) Psych (units unknown) (unknown) (unknown) (no date) (unknown) (unknown) Pt tolerated w ell with no complications. In particular, no signs of needle (units unknown) (unknown) (unknown) (no date) (unknown) (unknown) Pulse 70 (units unknown) (unknown) (unknown) (no date) (unknown) (unknown) Pulse Oximetry (%) 9 8 (units unknown) (unknown) (unknown) (no date) (unknown) (unknown) Pulse Source Monitor (units unknown) (unknown) (unknown) (no date) (unknown) (unknown) Qualifiers: (units unknown) (unknown) (unknown) (no date) (unknown) (unknown) ROS (units unknown) (unknown) (unknown) (no date) (unknown) (unknown) Rash (units unknown) (unknown) (unknown) (no date) (unknown) (unknown) Rash, throat w as tingly (units unknown) (unknown) (unknown) (no date) (unknown) (unknown) Rate: regular rate ( units unknown) (unknown) (unknown) (no date) (unknown) (unknown) Reason For Visit (un its unknown) (unknown) (unknown) (no date) (unknown) (unknown) Record reviewe d, pt interviewed and determined to be an appropriate acupuncture (units unknown) (unknown) (unknown) (no date) (unknown) (unknown) Resp (units unknown) (unknown) (unknown) (no date) (unknown) (unknown) S/P laparoscop ic supracervical hysterectomy (04/04/18) (units unknown) (unknown) (unknown) (no date) (unknown) (unknown) SY/TY versus C T pens. If she would like to focus on a different area and/or (units unknown) (unknown) (unknown) (no date) (unknown) (unknown) Seizure (units unknown) (unknown) (unknown) (no date) (unknown) (unknown) She had been experiencing pain and problems in several areas, including atypical (units unknown) (unknown) (unknown) (no date) (unknown) (unknown) Signed By: <Electronically signed by Wes Herrera> (units unknown) (unknown) (unknown) (no date) (unknown) (unknown) Signed (units unknown) (unknown) (unknown) (no date) (unknown) (unknown) Skin (units unknown) (unknown) (unknown) (no date) (unknown) (unknown) Smoking Status : Former smoker (units unknown) (unknown) (unknown) (no date) (unknown) (unknown) Social History (unit s unknown) (unknown) (unknown) (no date) (unknown) (unknown) Speech: speech jt l (units unknown) (unknown) (unknown) (no date) (unknown) (unknown) Status: Inactive (un its unknown) (unknown) (unknown) (no date) (unknown) (unknown) Stomach pain, nausea, headache (units unknown) (unknown) (unknown) (no date) (unknown) (unknown) Surgical Histo ry (units unknown) (unknown) (unknown) (no date) (unknown) (unknown) This note may have been all or partially generated using voice recognition (units unknown) (unknown) (unknown) (no date) (unknown) (unknown) Thought Conten t: normal (units unknown) (unknown) (unknown) (no date) (unknown) (unknown) Thought Proces s: normal (units unknown) (unknown) (unknown) (no date) (unknown) (unknown) To albuterol s ulfate 90 mcg/actuation (ProAir HFA) 2 puffs inhalation Q4-6H PRN (units unknown) (unknown) (unknown) (no date) (unknown) (unknown) Tobacco + Subs tance Use (units unknown) (unknown) (unknown) (no date) (unknown) (unknown) Tobacco Status (unit s unknown) (unknown) (unknown) (no date) (unknown) (unknown) Today we re-ev aluated her condition and discussed plan of care including (units unknown) (unknown) (unknown) (no date) (unknown) (unknown) Visit Reasons: Acupuncture 04 (units unknown) (unknown) (unknown) (no date) (unknown) (unknown) Vitals (units unknown) (unknown) (unknown) (no date) (unknown) (unknown) Weight 51.766 kg (un its unknown) (unknown) (unknown) (no date) (unknown) (unknown) albuterol sulf ate 90 mcg/actuation aerosol inhaler (ProAir HFA) 2 puff (units unknown) (unknown) (unknown) (no date) (unknown) (unknown) amoxicillin Al lergy (Intermediate, Verified 05/24/22 10:29) (units unknown) (unknown) (unknown) (no date) (unknown) (unknown) azithromycin A llergy (Intermediate, Verified 05/24/22 10:29) (units unknown) (unknown) (unknown) (no date) (unknown) (unknown) [facility]. Verified has no contraindications. (units unknown) (unknown) (unknown) (no date) (unknown) (unknown) change will he lp with some of her musculoskeletal issues. (units unknown) (unknown) (unknown) (no date) (unknown) (unknown) chest pain, he adaches, left TMJ pain and neck pain left greater than right. (units unknown) (unknown) (unknown) (no date) (unknown) (unknown) ciprofloxacin Allergy (Intermediate, Verified 05/24/22 10:29) (units unknown) (unknown) (unknown) (no date) (unknown) (unknown) clinical informatics educator , both of which she declined. We completed the treatment as (units unknown) (unknown) (unknown) (no date) (unknown) (unknown) consider same or similar treatment with or without global energetic treatment on (units unknown) (unknown) (unknown) (no date) (unknown) (unknown) consider supin e approach, consider local chest wall points and/or TMJ local (units unknown) (unknown) (unknown) (no date) (unknown) (unknown) due to patient care. Offered her the option to reschedule and/or speak with the (units unknown) (unknown) (unknown) (no date) (unknown) (unknown) fluticasone pr opionate 230 mcg-salmeterol 21 mcg/actuation HFA inhaler (Advair (units unknown) (unknown) (unknown) (no date) (unknown) (unknown) gluten Adverse Reaction (Mild, Verified 05/24/22 10:29) (units unknown) (unknown) (unknown) (no date) (unknown) (unknown) have occurred. If there are any questions, please contact the Medical Records (units unknown) (unknown) (unknown) (no date) (unknown) (unknown) helped with he r pain. She had also been suffering from atypical chest pain (units unknown) (unknown) (unknown) (no date) (unknown) (unknown) household memb ers: spouse and children (units unknown) (unknown) (unknown) (no date) (unknown) (unknown) hydromorphone Allergy (Mild, Verified 05/24/22 10:29) (units unknown) (unknown) (unknown) (no date) (unknown) (unknown) ibuprofen Jeffrey rgy (Mild, Verified 05/24/22 10:29) (units unknown) (unknown) (unknown) (no date) (unknown) (unknown) inhalation Q4- 6H PRN shortness of breath or wheezing #8.5 grams 05/27/22 [Rx (units unknown) (unknown) (unknown) (no date) (unknown) (unknown) may occur. Occ asional wrong-word or 'sound-alike' substitutions may have (units unknown) (unknown) (unknown) (no date) (unknown) (unknown) me once for tr eatment focused primarily on her neck pain and does feel that this (units unknown) (unknown) (unknown) (no date) (unknown) (unknown) methocarbamol 750 mg tablet 750 mg PO QID PRN muscle spasm #30 tabs 03/26/22 [Rx (units unknown) (unknown) (unknown) (no date) (unknown) (unknown) migrainosus pr esence: without status migrainosus Qualified Code(s): G43.009 (units unknown) (unknown) (unknown) (no date) (unknown) (unknown) minutes late. I did apologize for her inconvenience, noting that I was delayed (units unknown) (unknown) (unknown) (no date) (unknown) (unknown) nickel Adverse Reaction (Mild, Verified 05/24/22 10:29) (units unknown) (unknown) (unknown) (no date) (unknown) (unknown) occurred due t o the inherent limitations of voice recognition software. Please (units unknown) (unknown) (unknown) (no date) (unknown) (unknown) omeprazole 20 mg capsule,delayed release 20 mg PO BID #60 caps 03/26/22 [Rx (units unknown) (unknown) (unknown) (no date) (unknown) (unknown) ondansetron 4 mg disintegrating tablet 4 mg PO QID PRN nausea and vomiting #14 (units unknown) (unknown) (unknown) (no date) (unknown) (unknown) planned and sh e appeared to be feeling less frustrated by the end of the visit. (units unknown) (unknown) (unknown) (no date) (unknown) (unknown) points along i nner bladder line of the upper thoracic region in neutral (units unknown) (unknown) (unknown) (no date) (unknown) (unknown) points with or without global energetic treatment. (units unknown) (unknown) (unknown) (no date) (unknown) (unknown) read the note carefully and recognize, using context, where these substitutions (units unknown) (unknown) (unknown) (no date) (unknown) (unknown) shock. EBL: 0 mL. Provided discharge instructions. Pt ambulated from clinic (units unknown) (unknown) (unknown) (no date) (unknown) (unknown) software. Alth ough every effort is made to edit content, top lift nailer errors (units unknown) (unknown) (unknown) (no date) (unknown) (unknown) specific acupu ncture treatments moving forward. (units unknown) (unknown) (unknown) (no date) (unknown) (unknown) sumatriptan garcia ccinate 50 mg tablet (Imitrex) See Rx Instructions PO .COMPLEX #10 (units unknown) (unknown) (unknown) (no date) (unknown) (unknown) tabs 03/26/22 [Rx Confirmed 05/24/22] (units unknown) (unknown) (unknown) (no date) (unknown) (unknown) tabs 04/05/18 [Rx Confirmed 05/24/22] (units unknown) (unknown) (unknown) (no date) (unknown) (unknown) technique x 25 minutes. (units unknown) (unknown) (unknown) (no date) (unknown) (unknown) to carry heavy trays. 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 (units unknown) (unknown) (unknown) (no date) (unknown) (unknown) which she feel s is improving, although the improvement may or may not be related (units unknown) (unknown) (unknown) (no date) (unknown) (unknown) without diffic ulty. F/U 1-2 weeks. Depending on response to today's treatment, (units unknown) (unknown) Result panel 14 (unknown) (no date) (unknown) (unknown) (no value) (units unknown) (unknown) (unknown) (no date) (unknown) (unknown) 06/07/22 (units unknown) (unknown) (unknown) (no date) (unknown) (unknown) 10:40) (units unknown) (unknown) (unknown) (no date) (unknown) (unknown) 10:43 (units unknown) (unknown) (unknown) (no date) (unknown) (unknown) Age/Sex: 36 / F Date of Service: (units unknown) (unknown) (unknown) (no date) (unknown) (unknown) Allergies (units unknown) (unknown) (unknown) (no date) (unknown) (unknown) [place] [address] (units unknown) (unknown) (unknown) (no date) (unknown) (unknown) Anxiety (units unknown) (unknown) (unknown) (no date) (unknown) (unknown) Asthma (units unknown) (unknown) (unknown) (no date) (unknown) (unknown) Attending Dr: Wes SCOTT (units unknown) (unknown) (unknown) (no date) (unknown) (unknown) BMI 20.4 (units unknown) (unknown) (unknown) (no date) (unknown) (unknown) BP 100/64 (units unknown) (unknown) (unknown) (no date) (unknown) (unknown) Blood Pressure Location Rt brachial (units unknown) (unknown) (unknown) (no date) (unknown) (unknown) Confirmed 06/07/22] (units unknown) (unknown) (unknown) (no date) (unknown) (unknown) : 5 Acct:[id number] (units unknown) (unknown) (unknown) (no date) (unknown) (unknown) Depression (units unknown) (unknown) (unknown) (no date) (unknown) (unknown) Dept at . (units unknown) (unknown) (unknown) (no date) (unknown) (unknown) Documented By: Wes Herrera 06/07/22 1040 (units unknown) (unknown) (unknown) (no date) (unknown) (unknown) Draft (units unknown) (unknown) (unknown) (no date) (unknown) (unknown) Family Practic e Office Visit (units unknown) (unknown) (unknown) (no date) (unknown) (unknown) [facility] (units unknown) (unknown) (unknown) (no date) (unknown) (unknown) [place] (units unknown) (unknown) (unknown) (no date) (unknown) (unknown) Gastrointestinal Ups et (units unknown) (unknown) (unknown) (no date) (unknown) (unknown) H/O explorator y laparotomy (units unknown) (unknown) (unknown) (no date) (unknown) (unknown) H/O left knee surger y (units unknown) (unknown) (unknown) (no date) (unknown) (unknown) HFA) 2 puff in halation BID #12 grams 03/13/22 [Rx Confirmed 06/07/22] (units unknown) (unknown) (unknown) (no date) (unknown) (unknown) Height 5 ft 3 in (un its unknown) (unknown) (unknown) (no date) (unknown) (unknown) History of ope n heart surgery (units unknown) (unknown) (unknown) (no date) (unknown) (unknown) History of surgery ( units unknown) (unknown) (unknown) (no date) (unknown) (unknown) Intake perform ed by: Татьяна Llanes (units unknown) (unknown) (unknown) (no date) (unknown) (unknown) Intake (units unknown) (unknown) (unknown) (no date) (unknown) (unknown) Intake- Clincial Sta ff (units unknown) (unknown) (unknown) (no date) (unknown) (unknown) Irritation/redness ( units unknown) (unknown) (unknown) (no date) (unknown) (unknown) Kidney infection (un its unknown) (unknown) (unknown) (no date) (unknown) (unknown) Last Menstural Cycle + Details (units unknown) (unknown) (unknown) (no date) (unknown) (unknown) Loc: [facility] (units unknown) (unknown) (unknown) (no date) (unknown) (unknown) [id number] (units unknown) (unknown) (unknown) (no date) (unknown) (unknown) Medical Histor y (units unknown) (unknown) (unknown) (no date) (unknown) (unknown) Medications (units unknown) (unknown) (unknown) (no date) (unknown) (unknown) Mild persistent asth ma (units unknown) (unknown) (unknown) (no date) (unknown) (unknown) Other Menstrua l Period: Other (units unknown) (unknown) (unknown) (no date) (unknown) (unknown) Oxygen Deliver y Method room air (units unknown) (unknown) (unknown) (no date) (unknown) (unknown) PFSH (units unknown) (unknown) (unknown) (no date) (unknown) (unknown) Patient: Carmina Shukla MR#: (units unknown) (unknown) (unknown) (no date) (unknown) (unknown) Penicillins Al dwaynegy (Intermediate, Verified 06/07/22 10:40) (units unknown) (unknown) (unknown) (no date) (unknown) (unknown) Pertussis Vacc matt [PERTUSSIS VACCINES] Allergy (Unknown, Verified 06/07/22 (units unknown) (unknown) (unknown) (no date) (unknown) (unknown) Position Sitting (un its unknown) (unknown) (unknown) (no date) (unknown) (unknown) Pulse 61 (units unknown) (unknown) (unknown) (no date) (unknown) (unknown) Pulse Oximetry (%) 9 7 (units unknown) (unknown) (unknown) (no date) (unknown) (unknown) Pulse Source Monitor (units unknown) (unknown) (unknown) (no date) (unknown) (unknown) Rash (units unknown) (unknown) (unknown) (no date) (unknown) (unknown) Rash, throat w as tingly (units unknown) (unknown) (unknown) (no date) (unknown) (unknown) Reason For Visit (un its unknown) (unknown) (unknown) (no date) (unknown) (unknown) S/P laparoscop ic supracervical hysterectomy (04/04/18) (units unknown) (unknown) (unknown) (no date) (unknown) (unknown) Seizure (units unknown) (unknown) (unknown) (no date) (unknown) (unknown) Signed By: (units unknown) (unknown) (unknown) (no date) (unknown) (unknown) Smoking Status : Former smoker (units unknown) (unknown) (unknown) (no date) (unknown) (unknown) Social History (unit s unknown) (unknown) (unknown) (no date) (unknown) (unknown) Stomach pain, nausea, headache (units unknown) (unknown) (unknown) (no date) (unknown) (unknown) Surgical Histo ry (units unknown) (unknown) (unknown) (no date) (unknown) (unknown) This note may have been all or partially generated using voice recognition (units unknown) (unknown) (unknown) (no date) (unknown) (unknown) Tobacco + Subs tance Use (units unknown) (unknown) (unknown) (no date) (unknown) (unknown) Tobacco Status (unit s unknown) (unknown) (unknown) (no date) (unknown) (unknown) Visit Reasons: acupuncture 04 (units unknown) (unknown) (unknown) (no date) (unknown) (unknown) Vitals (units unknown) (unknown) (unknown) (no date) (unknown) (unknown) Weight 115 lb 6 oz ( units unknown) (unknown) (unknown) (no date) (unknown) (unknown) albuterol sulf ate 90 mcg/actuation aerosol inhaler (ProAir HFA) 2 puff (units unknown) (unknown) (unknown) (no date) (unknown) (unknown) amoxicillin Al lergy (Intermediate, Verified 06/07/22 10:40) (units unknown) (unknown) (unknown) (no date) (unknown) (unknown) azithromycin A llergy (Intermediate, Verified 06/07/22 10:40) (units unknown) (unknown) (unknown) (no date) (unknown) (unknown) ciprofloxacin Allergy (Intermediate, Verified 06/07/22 10:40) (units unknown) (unknown) (unknown) (no date) (unknown) (unknown) fluticasone pr opionate 230 mcg-salmeterol 21 mcg/actuation HFA inhaler (Advair (units unknown) (unknown) (unknown) (no date) (unknown) (unknown) gluten Adverse Reaction (Mild, Verified 06/07/22 10:40) (units unknown) (unknown) (unknown) (no date) (unknown) (unknown) have occurred. If there are any questions, please contact the Medical Records (units unknown) (unknown) (unknown) (no date) (unknown) (unknown) household memb ers: spouse and children (units unknown) (unknown) (unknown) (no date) (unknown) (unknown) hydromorphone Allergy (Mild, Verified 06/07/22 10:40) (units unknown) (unknown) (unknown) (no date) (unknown) (unknown) ibuprofen Jeffrey rgy (Mild, Verified 06/07/22 10:40) (units unknown) (unknown) (unknown) (no date) (unknown) (unknown) inhalation Q4- 6H PRN shortness of breath or wheezing #8.5 grams 05/27/22 [Rx (units unknown) (unknown) (unknown) (no date) (unknown) (unknown) may occur. Occ asional wrong-word or 'sound-alike' substitutions may have (units unknown) (unknown) (unknown) (no date) (unknown) (unknown) methocarbamol 750 mg tablet 750 mg PO QID PRN muscle spasm #30 tabs 03/26/22 [Rx (units unknown) (unknown) (unknown) (no date) (unknown) (unknown) nickel Adverse Reaction (Mild, Verified 06/07/22 10:40) (units unknown) (unknown) (unknown) (no date) (unknown) (unknown) occurred due t o the inherent limitations of voice recognition software. Please (units unknown) (unknown) (unknown) (no date) (unknown) (unknown) omeprazole 20 mg capsule,delayed release 20 mg PO BID #60 caps 03/26/22 [Rx (units unknown) (unknown) (unknown) (no date) (unknown) (unknown) ondansetron 4 mg disintegrating tablet 4 mg PO QID PRN nausea and vomiting #14 (units unknown) (unknown) (unknown) (no date) (unknown) (unknown) read the note carefully and recognize, using context, where these substitutions (units unknown) (unknown) (unknown) (no date) (unknown) (unknown) software. Alth ough every effort is made to edit content, top lift nailer errors (units unknown) (unknown) (unknown) (no date) (unknown) (unknown) sumatriptan garcia ccinate 50 mg tablet (Imitrex) See Rx Instructions PO .COMPLEX #10 (units unknown) (unknown) (unknown) (no date) (unknown) (unknown) tabs 03/26/22 [Rx Confirmed 06/07/22] (units unknown) (unknown) (unknown) (no date) (unknown) (unknown) tabs 04/05/18 [Rx Confirmed 06/07/22] (units unknown) (unknown) Result panel 15 (unknown) (no date) (unknown) (unknown) (no value) (units unknown) (unknown) (unknown) (no date) (unknown) (unknown) 06/07/22 (units unknown) (unknown) (unknown) (no date) (unknown) (unknown) 10:40) (units unknown) (unknown) (unknown) (no date) (unknown) (unknown) 10:43 (units unknown) (unknown) (unknown) (no date) (unknown) (unknown) 36 Y/O Female presents today for acupuncture. (units unknown) (unknown) (unknown) (no date) (unknown) (unknown) Age/Sex: 36 / F Date of Service: (units unknown) (unknown) (unknown) (no date) (unknown) (unknown) Allergies (units unknown) (unknown) (unknown) (no date) (unknown) (unknown) [place] [id number] (units unknown) (unknown) (unknown) (no date) (unknown) (unknown) Anxiety (units unknown) (unknown) (unknown) (no date) (unknown) (unknown) Asthma (units unknown) (unknown) (unknown) (no date) (unknown) (unknown) Attending Dr: Wes Javier TAGMAN (units unknown) (unknown) (unknown) (no date) (unknown) (unknown) BMI 20.4 (units unknown) (unknown) (unknown) (no date) (unknown) (unknown) BP 100/64 (units unknown) (unknown) (unknown) (no date) (unknown) (unknown) Blood Pressure Location Rt brachial (units unknown) (unknown) (unknown) (no date) (unknown) (unknown) Confirmed 06/07/22] (units unknown) (unknown) (unknown) (no date) (unknown) (unknown) : 5 Acct:[id number] (units unknown) (unknown) (unknown) (no date) (unknown) (unknown) Depression (units unknown) (unknown) (unknown) (no date) (unknown) (unknown) Dept at . (units unknown) (unknown) (unknown) (no date) (unknown) (unknown) Documented By: Wes Herrera 06/07/22 1040 (units unknown) (unknown) (unknown) (no date) (unknown) (unknown) Draft (units unknown) (unknown) (unknown) (no date) (unknown) (unknown) Family Practic e Office Visit (units unknown) (unknown) (unknown) (no date) (unknown) (unknown) [facility] (units unknown) (unknown) (unknown) (no date) (unknown) (unknown) [place] (units unknown) (unknown) (unknown) (no date) (unknown) (unknown) Gastrointestinal Ups et (units unknown) (unknown) (unknown) (no date) (unknown) (unknown) H/O explorator y laparotomy (units unknown) (unknown) (unknown) (no date) (unknown) (unknown) H/O left knee surger y (units unknown) (unknown) (unknown) (no date) (unknown) (unknown) HFA) 2 puff in halation BID #12 grams 03/13/22 [Rx Confirmed 06/07/22] (units unknown) (unknown) (unknown) (no date) (unknown) (unknown) Height 5 ft 3 in (un its unknown) (unknown) (unknown) (no date) (unknown) (unknown) History of ope n heart surgery (units unknown) (unknown) (unknown) (no date) (unknown) (unknown) History of surgery ( units unknown) (unknown) (unknown) (no date) (unknown) (unknown) Intake Note: (units unknown) (unknown) (unknown) (no date) (unknown) (unknown) Intake perform ed by: Татьяна Llanes (units unknown) (unknown) (unknown) (no date) (unknown) (unknown) Intake (units unknown) (unknown) (unknown) (no date) (unknown) (unknown) Intake- Clincial Sta ff (units unknown) (unknown) (unknown) (no date) (unknown) (unknown) Irritation/redness ( units unknown) (unknown) (unknown) (no date) (unknown) (unknown) Kidney infection (un its unknown) (unknown) (unknown) (no date) (unknown) (unknown) Last Menstural Cycle + Details (units unknown) (unknown) (unknown) (no date) (unknown) (unknown) Loc: [facility] (units unknown) (unknown) (unknown) (no date) (unknown) (unknown) [id number] (units unknown) (unknown) (unknown) (no date) (unknown) (unknown) Medical Histor y (units unknown) (unknown) (unknown) (no date) (unknown) (unknown) Medications (units unknown) (unknown) (unknown) (no date) (unknown) (unknown) Mild persistent asth ma (units unknown) (unknown) (unknown) (no date) (unknown) (unknown) Other Menstrua l Period: Other (units unknown) (unknown) (unknown) (no date) (unknown) (unknown) Oxygen Deliver y Method room air (units unknown) (unknown) (unknown) (no date) (unknown) (unknown) PFSH (units unknown) (unknown) (unknown) (no date) (unknown) (unknown) Patient: Carmina Shukla MR#: (units unknown) (unknown) (unknown) (no date) (unknown) (unknown) Penicillins Al judy (Intermediate, Verified 06/07/22 10:40) (units unknown) (unknown) (unknown) (no date) (unknown) (unknown) Pertussis Vacc matt [PERTUSSIS VACCINES] Allergy (Unknown, Verified 06/07/22 (units unknown) (unknown) (unknown) (no date) (unknown) (unknown) Position Sitting (un its unknown) (unknown) (unknown) (no date) (unknown) (unknown) Pulse 61 (units unknown) (unknown) (unknown) (no date) (unknown) (unknown) Pulse Oximetry (%) 9 7 (units unknown) (unknown) (unknown) (no date) (unknown) (unknown) Pulse Source Monitor (units unknown) (unknown) (unknown) (no date) (unknown) (unknown) Rash (units unknown) (unknown) (unknown) (no date) (unknown) (unknown) Rash, throat w as tingly (units unknown) (unknown) (unknown) (no date) (unknown) (unknown) Reason For Visit (un its unknown) (unknown) (unknown) (no date) (unknown) (unknown) S/P laparoscop ic supracervical hysterectomy (04/04/18) (units unknown) (unknown) (unknown) (no date) (unknown) (unknown) Seizure (units unknown) (unknown) (unknown) (no date) (unknown) (unknown) Signed By: (units unknown) (unknown) (unknown) (no date) (unknown) (unknown) Smoking Status : Former smoker (units unknown) (unknown) (unknown) (no date) (unknown) (unknown) Social History (unit s unknown) (unknown) (unknown) (no date) (unknown) (unknown) Stomach pain, nausea, headache (units unknown) (unknown) (unknown) (no date) (unknown) (unknown) Surgical Histo ry (units unknown) (unknown) (unknown) (no date) (unknown) (unknown) This note may have been all or partially generated using voice recognition (units unknown) (unknown) (unknown) (no date) (unknown) (unknown) Tobacco + Subs tance Use (units unknown) (unknown) (unknown) (no date) (unknown) (unknown) Tobacco Status (unit s unknown) (unknown) (unknown) (no date) (unknown) (unknown) Visit Reasons: acupuncture 04 (units unknown) (unknown) (unknown) (no date) (unknown) (unknown) Vitals (units unknown) (unknown) (unknown) (no date) (unknown) (unknown) Weight 115 lb 6 oz ( units unknown) (unknown) (unknown) (no date) (unknown) (unknown) albuterol sulf ate 90 mcg/actuation aerosol inhaler (ProAir HFA) 2 puff (units unknown) (unknown) (unknown) (no date) (unknown) (unknown) amoxicillin Al lergy (Intermediate, Verified 06/07/22 10:40) (units unknown) (unknown) (unknown) (no date) (unknown) (unknown) azithromycin A llergy (Intermediate, Verified 06/07/22 10:40) (units unknown) (unknown) (unknown) (no date) (unknown) (unknown) ciprofloxacin Allergy (Intermediate, Verified 06/07/22 10:40) (units unknown) (unknown) (unknown) (no date) (unknown) (unknown) fluticasone pr opionate 230 mcg-salmeterol 21 mcg/actuation HFA inhaler (Advair (units unknown) (unknown) (unknown) (no date) (unknown) (unknown) gluten Adverse Reaction (Mild, Verified 06/07/22 10:40) (units unknown) (unknown) (unknown) (no date) (unknown) (unknown) have occurred. If there are any questions, please contact the Medical Records (units unknown) (unknown) (unknown) (no date) (unknown) (unknown) household memb ers: spouse and children (units unknown) (unknown) (unknown) (no date) (unknown) (unknown) hydromorphone Allergy (Mild, Verified 06/07/22 10:40) (units unknown) (unknown) (unknown) (no date) (unknown) (unknown) ibuprofen Jeffrey rgy (Mild, Verified 06/07/22 10:40) (units unknown) (unknown) (unknown) (no date) (unknown) (unknown) inhalation Q4- 6H PRN shortness of breath or wheezing #8.5 grams 05/27/22 [Rx (units unknown) (unknown) (unknown) (no date) (unknown) (unknown) may occur. Occ asional wrong-word or 'sound-alike' substitutions may have (units unknown) (unknown) (unknown) (no date) (unknown) (unknown) methocarbamol 750 mg tablet 750 mg PO QID PRN muscle spasm #30 tabs 03/26/22 [Rx (units unknown) (unknown) (unknown) (no date) (unknown) (unknown) nickel Adverse Reaction (Mild, Verified 06/07/22 10:40) (units unknown) (unknown) (unknown) (no date) (unknown) (unknown) occurred due t o the inherent limitations of voice recognition software. Please (units unknown) (unknown) (unknown) (no date) (unknown) (unknown) omeprazole 20 mg capsule,delayed release 20 mg PO BID #60 caps 03/26/22 [Rx (units unknown) (unknown) (unknown) (no date) (unknown) (unknown) ondansetron 4 mg disintegrating tablet 4 mg PO QID PRN nausea and vomiting #14 (units unknown) (unknown) (unknown) (no date) (unknown) (unknown) read the note carefully and recognize, using context, where these substitutions (units unknown) (unknown) (unknown) (no date) (unknown) (unknown) software. Alth ough every effort is made to edit content, top lift nailer errors (units unknown) (unknown) (unknown) (no date) (unknown) (unknown) sumatriptan garcia ccinate 50 mg tablet (Imitrex) See Rx Instructions PO .COMPLEX #10 (units unknown) (unknown) (unknown) (no date) (unknown) (unknown) tabs 03/26/22 [Rx Confirmed 06/07/22] (units unknown) (unknown) (unknown) (no date) (unknown) (unknown) tabs 04/05/18 [Rx Confirmed 06/07/22] (units unknown) (unknown) Result panel 16 (unknown) (no date) (unknown) (unknown) (no value) (units unknown) (unknown) (unknown) (no date) (unknown) (unknown) 06/07/22 (units unknown) (unknown) (unknown) (no date) (unknown) (unknown) 06/07/22] (units unknown) (unknown) (unknown) (no date) (unknown) (unknown) 10:40) (units unknown) (unknown) (unknown) (no date) (unknown) (unknown) 10:43 (units unknown) (unknown) (unknown) (no date) (unknown) (unknown) 36 Y/O Female presents today for acupuncture. (units unknown) (unknown) (unknown) (no date) (unknown) (unknown) Age/Sex: 36 / F Date of Service: (units unknown) (unknown) (unknown) (no date) (unknown) (unknown) Allergies (units unknown) (unknown) (unknown) (no date) (unknown) (unknown) [place] [id number] (units unknown) (unknown) (unknown) (no date) (unknown) (unknown) Anxiety (units unknown) (unknown) (unknown) (no date) (unknown) (unknown) Assessment + Plan (u nits unknown) (unknown) (unknown) (no date) (unknown) (unknown) Asthma (units unknown) (unknown) (unknown) (no date) (unknown) (unknown) Attending Dr: Wes SCOTT (units unknown) (unknown) (unknown) (no date) (unknown) (unknown) BMI 20.4 (units unknown) (unknown) (unknown) (no date) (unknown) (unknown) BP 100/64 (units unknown) (unknown) (unknown) (no date) (unknown) (unknown) Blood Pressure Location Rt brachial (units unknown) (unknown) (unknown) (no date) (unknown) (unknown) Changed (units unknown) (unknown) (unknown) (no date) (unknown) (unknown) Confirmed 06/07/22] (units unknown) (unknown) (unknown) (no date) (unknown) (unknown) : 5 Acct:[id number] (units unknown) (unknown) (unknown) (no date) (unknown) (unknown) Depression (units unknown) (unknown) (unknown) (no date) (unknown) (unknown) Dept at . (units unknown) (unknown) (unknown) (no date) (unknown) (unknown) Details: (units unknown) (unknown) (unknown) (no date) (unknown) (unknown) Documented By: Wes Herrera 06/07/22 1040 (units unknown) (unknown) (unknown) (no date) (unknown) (unknown) Draft (units unknown) (unknown) (unknown) (no date) (unknown) (unknown) Family Practic e Office Visit (units unknown) (unknown) (unknown) (no date) (unknown) (unknown) [facility] (units unknown) (unknown) (unknown) (no date) (unknown) (unknown) [place] (units unknown) (unknown) (unknown) (no date) (unknown) (unknown) From ondansetr on 4 mg PO QID PRN 14 tabs 2RF nausea and vomiting (units unknown) (unknown) (unknown) (no date) (unknown) (unknown) Gastrointestinal Ups et (units unknown) (unknown) (unknown) (no date) (unknown) (unknown) H/O explorator y laparotomy (units unknown) (unknown) (unknown) (no date) (unknown) (unknown) H/O left knee surger y (units unknown) (unknown) (unknown) (no date) (unknown) (unknown) HFA) 2 puff in halation BID #12 grams 03/13/22 [Rx Confirmed 06/07/22] (units unknown) (unknown) (unknown) (no date) (unknown) (unknown) HPI (units unknown) (unknown) (unknown) (no date) (unknown) (unknown) Height 160.02 cm (un its unknown) (unknown) (unknown) (no date) (unknown) (unknown) History of ope n heart surgery (units unknown) (unknown) (unknown) (no date) (unknown) (unknown) History of surgery ( units unknown) (unknown) (unknown) (no date) (unknown) (unknown) Intake Note: (units unknown) (unknown) (unknown) (no date) (unknown) (unknown) Intake perform ed by: Татьяна Llanes (units unknown) (unknown) (unknown) (no date) (unknown) (unknown) Intake (units unknown) (unknown) (unknown) (no date) (unknown) (unknown) Intake- Clincial Sta ff (units unknown) (unknown) (unknown) (no date) (unknown) (unknown) Irritation/redness ( units unknown) (unknown) (unknown) (no date) (unknown) (unknown) Kidney infection (un its unknown) (unknown) (unknown) (no date) (unknown) (unknown) Last Menstural Cycle + Details (units unknown) (unknown) (unknown) (no date) (unknown) (unknown) Loc: [facility] (units unknown) (unknown) (unknown) (no date) (unknown) (unknown) [id number] (units unknown) (unknown) (unknown) (no date) (unknown) (unknown) Medical Histor y (units unknown) (unknown) (unknown) (no date) (unknown) (unknown) Medications (units unknown) (unknown) (unknown) (no date) (unknown) (unknown) Medications: (units unknown) (unknown) (unknown) (no date) (unknown) (unknown) Mild persistent asth ma (units unknown) (unknown) (unknown) (no date) (unknown) (unknown) New (units unknown) (unknown) (unknown) (no date) (unknown) (unknown) Other Menstrua l Period: Other (units unknown) (unknown) (unknown) (no date) (unknown) (unknown) Oxygen Deliver y Method room air (units unknown) (unknown) (unknown) (no date) (unknown) (unknown) PFSH (units unknown) (unknown) (unknown) (no date) (unknown) (unknown) Patient: Carmina Shukla MR#: (units unknown) (unknown) (unknown) (no date) (unknown) (unknown) Penicillins Al lergy (Intermediate, Verified 06/07/22 10:40) (units unknown) (unknown) (unknown) (no date) (unknown) (unknown) Pertussis Vacc matt [PERTUSSIS VACCINES] Allergy (Unknown, Verified 06/07/22 (units unknown) (unknown) (unknown) (no date) (unknown) (unknown) Position Sitting (un its unknown) (unknown) (unknown) (no date) (unknown) (unknown) Pulse 61 (units unknown) (unknown) (unknown) (no date) (unknown) (unknown) Pulse Oximetry (%) 9 7 (units unknown) (unknown) (unknown) (no date) (unknown) (unknown) Pulse Source Monitor (units unknown) (unknown) (unknown) (no date) (unknown) (unknown) Rash (units unknown) (unknown) (unknown) (no date) (unknown) (unknown) Rash, throat w as tingly (units unknown) (unknown) (unknown) (no date) (unknown) (unknown) Reason For Visit (un its unknown) (unknown) (unknown) (no date) (unknown) (unknown) S/P laparoscop ic supracervical hysterectomy (04/04/18) (units unknown) (unknown) (unknown) (no date) (unknown) (unknown) Seizure (units unknown) (unknown) (unknown) (no date) (unknown) (unknown) Signed By: (units unknown) (unknown) (unknown) (no date) (unknown) (unknown) Smoking Status : Former smoker (units unknown) (unknown) (unknown) (no date) (unknown) (unknown) Social History (unit s unknown) (unknown) (unknown) (no date) (unknown) (unknown) Stomach pain, nausea, headache (units unknown) (unknown) (unknown) (no date) (unknown) (unknown) Surgical Histo ry (units unknown) (unknown) (unknown) (no date) (unknown) (unknown) This note may have been all or partially generated using voice recognition (units unknown) (unknown) (unknown) (no date) (unknown) (unknown) To ondansetron 4 mg PO Q8H PRN 30 tabs 1RF nausea and vomiting (units unknown) (unknown) (unknown) (no date) (unknown) (unknown) Tobacco + Subs tance Use (units unknown) (unknown) (unknown) (no date) (unknown) (unknown) Tobacco Status (unit s unknown) (unknown) (unknown) (no date) (unknown) (unknown) Visit Reasons: acupuncture 04 (units unknown) (unknown) (unknown) (no date) (unknown) (unknown) Vitals (units unknown) (unknown) (unknown) (no date) (unknown) (unknown) Weight 52.333 kg (un its unknown) (unknown) (unknown) (no date) (unknown) (unknown) albuterol sulf ate 90 mcg/actuation aerosol inhaler (ProAir HFA) 2 puff (units unknown) (unknown) (unknown) (no date) (unknown) (unknown) amoxicillin Al lergy (Intermediate, Verified 06/07/22 10:40) (units unknown) (unknown) (unknown) (no date) (unknown) (unknown) azithromycin A llergy (Intermediate, Verified 06/07/22 10:40) (units unknown) (unknown) (unknown) (no date) (unknown) (unknown) better with ke flex though her eye did. hx abs in past. feels like that. (units unknown) (unknown) (unknown) (no date) (unknown) (unknown) bladder about 6 levels. f/u 1-2 weeks. (units unknown) (unknown) (unknown) (no date) (unknown) (unknown) ciprofloxacin Allergy (Intermediate, Verified 06/07/22 10:40) (units unknown) (unknown) (unknown) (no date) (unknown) (unknown) coughing phele mg no fevers. (units unknown) (unknown) (unknown) (no date) (unknown) (unknown) doxycycline hy clate 100 mg PO BID 20 tabs 0RF (units unknown) (unknown) (unknown) (no date) (unknown) (unknown) doxycycline hy clate 100 mg tablet 100 mg PO BID #20 tabs 06/07/22 [Rx Confirmed (units unknown) (unknown) (unknown) (no date) (unknown) (unknown) fluticasone pr opionate 230 mcg-salmeterol 21 mcg/actuation HFA inhaler (Advair (units unknown) (unknown) (unknown) (no date) (unknown) (unknown) gluten Adverse Reaction (Mild, Verified 06/07/22 10:40) (units unknown) (unknown) (unknown) (no date) (unknown) (unknown) have occurred. If there are any questions, please contact the Medical Records (units unknown) (unknown) (unknown) (no date) (unknown) (unknown) household memb ers: spouse and children (units unknown) (unknown) (unknown) (no date) (unknown) (unknown) hydromorphone Allergy (Mild, Verified 06/07/22 10:40) (units unknown) (unknown) (unknown) (no date) (unknown) (unknown) ibuprofen Jeffrey rgy (Mild, Verified 06/07/22 10:40) (units unknown) (unknown) (unknown) (no date) (unknown) (unknown) inhalation Q4- 6H PRN shortness of breath or wheezing #8.5 grams 05/27/22 [Rx (units unknown) (unknown) (unknown) (no date) (unknown) (unknown) leans forward, ears feel plugged, possibly slight ome on exam. using inhaler (units unknown) (unknown) (unknown) (no date) (unknown) (unknown) may occur. Occ asional wrong-word or 'sound-alike' substitutions may have (units unknown) (unknown) (unknown) (no date) (unknown) (unknown) methocarbamol 750 mg tablet 750 mg PO QID PRN muscle spasm #30 tabs 03/26/22 [Rx (units unknown) (unknown) (unknown) (no date) (unknown) (unknown) more. cold in january, settled in sinuses 1-3 months ago. did not really get (units unknown) (unknown) (unknown) (no date) (unknown) (unknown) neck acu neutr al 30 needs today includes si9, si10, si11 and h points, inner (units unknown) (unknown) (unknown) (no date) (unknown) (unknown) nickel Adverse Reaction (Mild, Verified 06/07/22 10:40) (units unknown) (unknown) (unknown) (no date) (unknown) (unknown) occurred due t o the inherent limitations of voice recognition software. Please (units unknown) (unknown) (unknown) (no date) (unknown) (unknown) omeprazole 20 mg capsule,delayed release 20 mg PO BID #60 caps 03/26/22 [Rx (units unknown) (unknown) (unknown) (no date) (unknown) (unknown) ondansetron 4 mg disintegrating tablet 4 mg PO Q8H PRN nausea and vomiting #30 (units unknown) (unknown) (unknown) (no date) (unknown) (unknown) read the note carefully and recognize, using context, where these substitutions (units unknown) (unknown) (unknown) (no date) (unknown) (unknown) software. Alth ough every effort is made to edit content, top lift nailer errors (units unknown) (unknown) (unknown) (no date) (unknown) (unknown) sumatriptan garcia ccinate 50 mg tablet (Imitrex) See Rx Instructions PO .COMPLEX #10 (units unknown) (unknown) (unknown) (no date) (unknown) (unknown) tabs 03/26/22 [Rx Confirmed 06/07/22] (units unknown) (unknown) (unknown) (no date) (unknown) (unknown) tabs 06/07/22 [Rx Confirmed 06/07/22] (units unknown) (unknown) (unknown) (no date) (unknown) (unknown) txed for ABS w ith doxy. pretty normal exam but has throbbing in forehead when (units unknown) (unknown) Result panel 17 (unknown) (no date) (unknown) (unknown) (no value) (units unknown) (unknown) (unknown) (no date) (unknown) (unknown) (1) Migraine: (units unknown) (unknown) (unknown) (no date) (unknown) (unknown) (2) Neck pain, chronic: (units unknown) (unknown) (unknown) (no date) (unknown) (unknown) 06/07/22 (units unknown) (unknown) (unknown) (no date) (unknown) (unknown) 06/07/22] (units unknown) (unknown) (unknown) (no date) (unknown) (unknown) 10:40) (units unknown) (unknown) (unknown) (no date) (unknown) (unknown) 10:43 (units unknown) (unknown) (unknown) (no date) (unknown) (unknown) 36 Y/O Female presents today for acupuncture. (units unknown) (unknown) (unknown) (no date) (unknown) (unknown) 36-year-old fe male presents for follow-up acupuncture treatment. She has seen (units unknown) (unknown) (unknown) (no date) (unknown) (unknown) Age/Sex: 36 / F Date of Service: (units unknown) (unknown) (unknown) (no date) (unknown) (unknown) Allergies (units unknown) (unknown) (unknown) (no date) (unknown) (unknown) [place], [place] [id number] (units unknown) (unknown) (unknown) (no date) (unknown) (unknown) Anxiety (units unknown) (unknown) (unknown) (no date) (unknown) (unknown) Assessment + Plan (u nits unknown) (unknown) (unknown) (no date) (unknown) (unknown) Asthma (units unknown) (unknown) (unknown) (no date) (unknown) (unknown) Attending Dr: Wes SCOTT (units unknown) (unknown) (unknown) (no date) (unknown) (unknown) BMI 20.4 (units unknown) (unknown) (unknown) (no date) (unknown) (unknown) BP 100/64 (units unknown) (unknown) (unknown) (no date) (unknown) (unknown) Blood Pressure Location Rt brachial (units unknown) (unknown) (unknown) (no date) (unknown) (unknown) Changed (units unknown) (unknown) (unknown) (no date) (unknown) (unknown) Chief Complaint (uni ts unknown) (unknown) (unknown) (no date) (unknown) (unknown) Chief Complain t: Follow-up acupuncture (units unknown) (unknown) (unknown) (no date) (unknown) (unknown) Confirmed 06/07/22] (units unknown) (unknown) (unknown) (no date) (unknown) (unknown) : 5 Acct:[id number] (units unknown) (unknown) (unknown) (no date) (unknown) (unknown) Depression (units unknown) (unknown) (unknown) (no date) (unknown) (unknown) Dept at . (units unknown) (unknown) (unknown) (no date) (unknown) (unknown) Details: (units unknown) (unknown) (unknown) (no date) (unknown) (unknown) Documented By: Wes Herrera 06/07/22 1040 (units unknown) (unknown) (unknown) (no date) (unknown) (unknown) Draft (units unknown) (unknown) (unknown) (no date) (unknown) (unknown) Family Practic e Office Visit (units unknown) (unknown) (unknown) (no date) (unknown) (unknown) [facility] (units unknown) (unknown) (unknown) (no date) (unknown) (unknown) [place] (units unknown) (unknown) (unknown) (no date) (unknown) (unknown) From ondansetr on 4 mg PO QID PRN 14 tabs 2RF nausea and vomiting (units unknown) (unknown) (unknown) (no date) (unknown) (unknown) GV14, GV16, bi lateral GB20, BL10, SI9, SI10, SI11, SI13, SI14, SI15, SI16 and (units unknown) (unknown) (unknown) (no date) (unknown) (unknown) Gastrointestinal Ups et (units unknown) (unknown) (unknown) (no date) (unknown) (unknown) H/O explorator y laparotomy (units unknown) (unknown) (unknown) (no date) (unknown) (unknown) H/O left knee surger y (units unknown) (unknown) (unknown) (no date) (unknown) (unknown) HFA) 2 puff in halation BID #12 grams 03/13/22 [Rx Confirmed 06/07/22] (units unknown) (unknown) (unknown) (no date) (unknown) (unknown) HPI (units unknown) (unknown) (unknown) (no date) (unknown) (unknown) Height 160.02 cm (un its unknown) (unknown) (unknown) (no date) (unknown) (unknown) History of ope n heart surgery (units unknown) (unknown) (unknown) (no date) (unknown) (unknown) History of surgery ( units unknown) (unknown) (unknown) (no date) (unknown) (unknown) Intake Note: (units unknown) (unknown) (unknown) (no date) (unknown) (unknown) Intake perform ed by: Татьяна Llanes (units unknown) (unknown) (unknown) (no date) (unknown) (unknown) Intake (units unknown) (unknown) (unknown) (no date) (unknown) (unknown) Intake- Clincial Sta ff (units unknown) (unknown) (unknown) (no date) (unknown) (unknown) Intractability : not intractable Migraine type: without aura Status (units unknown) (unknown) (unknown) (no date) (unknown) (unknown) Irritation/redness ( units unknown) (unknown) (unknown) (no date) (unknown) (unknown) Kidney infection (un its unknown) (unknown) (unknown) (no date) (unknown) (unknown) Last Menstural Cycle + Details (units unknown) (unknown) (unknown) (no date) (unknown) (unknown) Loc: [facility] (units unknown) (unknown) (unknown) (no date) (unknown) (unknown) [id number] (units unknown) (unknown) (unknown) (no date) (unknown) (unknown) Medical Histor y (units unknown) (unknown) (unknown) (no date) (unknown) (unknown) Medications (units unknown) (unknown) (unknown) (no date) (unknown) (unknown) Medications: (units unknown) (unknown) (unknown) (no date) (unknown) (unknown) Migraine witho ut aura, not intractable, without status migrainosus (units unknown) (unknown) (unknown) (no date) (unknown) (unknown) Mild persistent asth ma (units unknown) (unknown) (unknown) (no date) (unknown) (unknown) New (units unknown) (unknown) (unknown) (no date) (unknown) (unknown) Of note, minerva richter was initially quite frustrated that provider was running 25 (units unknown) (unknown) (unknown) (no date) (unknown) (unknown) Other Menstrua l Period: Other (units unknown) (unknown) (unknown) (no date) (unknown) (unknown) Oxygen Deliver y Method room air (units unknown) (unknown) (unknown) (no date) (unknown) (unknown) PFSH (units unknown) (unknown) (unknown) (no date) (unknown) (unknown) 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, 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 (units unknown) (unknown) (unknown) (no date) (unknown) (unknown) Patient: Carmina Shukla MR#: (units unknown) (unknown) (unknown) (no date) (unknown) (unknown) Penicillins Al lergy (Intermediate, Verified 06/07/22 10:40) (units unknown) (unknown) (unknown) (no date) (unknown) (unknown) Pertussis Vacc matt [PERTUSSIS VACCINES] Allergy (Unknown, Verified 06/07/22 (units unknown) (unknown) (unknown) (no date) (unknown) (unknown) Plan (units unknown) (unknown) (unknown) (no date) (unknown) (unknown) Position Sitting (un its unknown) (unknown) (unknown) (no date) (unknown) (unknown) Proper correctional counselor/case manager ing and consent completed prior to initial procedure. (units unknown) (unknown) (unknown) (no date) (unknown) (unknown) Pt tolerated w ell with no complications. In particular, no signs of needle (units unknown) (unknown) (unknown) (no date) (unknown) (unknown) Pulse 61 (units unknown) (unknown) (unknown) (no date) (unknown) (unknown) Pulse Oximetry (%) 9 7 (units unknown) (unknown) (unknown) (no date) (unknown) (unknown) Pulse Source Monitor (units unknown) (unknown) (unknown) (no date) (unknown) (unknown) Qualifiers: (units unknown) (unknown) (unknown) (no date) (unknown) (unknown) Rash (units unknown) (unknown) (unknown) (no date) (unknown) (unknown) Rash, throat w as tingly (units unknown) (unknown) (unknown) (no date) (unknown) (unknown) Reason For Visit (un its unknown) (unknown) (unknown) (no date) (unknown) (unknown) Record reviewe d, pt interviewed and determined to be an appropriate acupuncture (units unknown) (unknown) (unknown) (no date) (unknown) (unknown) S/P laparoscop ic supracervical hysterectomy (04/04/18) (units unknown) (unknown) (unknown) (no date) (unknown) (unknown) SY/TY versus C T pens. If she would like to focus on a different area and/or (units unknown) (unknown) (unknown) (no date) (unknown) (unknown) Seizure (units unknown) (unknown) (unknown) (no date) (unknown) (unknown) She had been experiencing pain and problems in several areas, including atypical (units unknown) (unknown) (unknown) (no date) (unknown) (unknown) Signed By: (units unknown) (unknown) (unknown) (no date) (unknown) (unknown) Smoking Status : Former smoker (units unknown) (unknown) (unknown) (no date) (unknown) (unknown) Social History (unit s unknown) (unknown) (unknown) (no date) (unknown) (unknown) Status: Inactive (un its unknown) (unknown) (unknown) (no date) (unknown) (unknown) Stomach pain, nausea, headache (units unknown) (unknown) (unknown) (no date) (unknown) (unknown) Surgical Histo ry (units unknown) (unknown) (unknown) (no date) (unknown) (unknown) This note may have been all or partially generated using voice recognition (units unknown) (unknown) (unknown) (no date) (unknown) (unknown) To ondansetron 4 mg PO Q8H PRN 30 tabs 1RF nausea and vomiting (units unknown) (unknown) (unknown) (no date) (unknown) (unknown) Tobacco + Subs tance Use (units unknown) (unknown) (unknown) (no date) (unknown) (unknown) Tobacco Status (unit s unknown) (unknown) (unknown) (no date) (unknown) (unknown) Today we re-ev aluated her condition and discussed plan of care including (units unknown) (unknown) (unknown) (no date) (unknown) (unknown) Visit Reasons: acupuncture 04 (units unknown) (unknown) (unknown) (no date) (unknown) (unknown) Vitals (units unknown) (unknown) (unknown) (no date) (unknown) (unknown) Weight 52.333 kg (un its unknown) (unknown) (unknown) (no date) (unknown) (unknown) albuterol sulf ate 90 mcg/actuation aerosol inhaler (ProAir HFA) 2 puff (units unknown) (unknown) (unknown) (no date) (unknown) (unknown) amoxicillin Al lergy (Intermediate, Verified 06/07/22 10:40) (units unknown) (unknown) (unknown) (no date) (unknown) (unknown) azithromycin A llergy (Intermediate, Verified 06/07/22 10:40) (units unknown) (unknown) (unknown) (no date) (unknown) (unknown) better with ke flex though her eye did. hx abs in past. feels like that. (units unknown) (unknown) (unknown) (no date) (unknown) (unknown) bladder about 6 levels. f/u 1-2 weeks. (units unknown) (unknown) (unknown) (no date) (unknown) (unknown) [facility]. Verified has no contraindications. (units unknown) (unknown) (unknown) (no date) (unknown) (unknown) change will he lp with some of her musculoskeletal issues. (units unknown) (unknown) (unknown) (no date) (unknown) (unknown) chest pain, he adaches, left TMJ pain and neck pain left greater than right. (units unknown) (unknown) (unknown) (no date) (unknown) (unknown) ciprofloxacin Allergy (Intermediate, Verified 06/07/22 10:40) (units unknown) (unknown) (unknown) (no date) (unknown) (unknown) clinical informatics educator , both of which she declined. We completed the treatment as (units unknown) (unknown) (unknown) (no date) (unknown) (unknown) consider same or similar treatment with or without global energetic treatment on (units unknown) (unknown) (unknown) (no date) (unknown) (unknown) consider supin e approach, consider local chest wall points and/or TMJ local (units unknown) (unknown) (unknown) (no date) (unknown) (unknown) coughing phele mg no fevers. (units unknown) (unknown) (unknown) (no date) (unknown) (unknown) doxycycline hy clate 100 mg PO BID 20 tabs 0RF (units unknown) (unknown) (unknown) (no date) (unknown) (unknown) doxycycline hy clate 100 mg tablet 100 mg PO BID #20 tabs 06/07/22 [Rx Confirmed (units unknown) (unknown) (unknown) (no date) (unknown) (unknown) due to patient care. Offered her the option to reschedule and/or speak with the (units unknown) (unknown) (unknown) (no date) (unknown) (unknown) fluticasone pr opionate 230 mcg-salmeterol 21 mcg/actuation HFA inhaler (Advair (units unknown) (unknown) (unknown) (no date) (unknown) (unknown) gluten Adverse Reaction (Mild, Verified 06/07/22 10:40) (units unknown) (unknown) (unknown) (no date) (unknown) (unknown) have occurred. If there are any questions, please contact the Medical Records (units unknown) (unknown) (unknown) (no date) (unknown) (unknown) helped with he r pain. She had also been suffering from atypical chest pain (units unknown) (unknown) (unknown) (no date) (unknown) (unknown) household memb ers: spouse and children (units unknown) (unknown) (unknown) (no date) (unknown) (unknown) hydromorphone Allergy (Mild, Verified 06/07/22 10:40) (units unknown) (unknown) (unknown) (no date) (unknown) (unknown) ibuprofen Jeffrey rgy (Mild, Verified 06/07/22 10:40) (units unknown) (unknown) (unknown) (no date) (unknown) (unknown) inhalation Q4- 6H PRN shortness of breath or wheezing #8.5 grams 05/27/22 [Rx (units unknown) (unknown) (unknown) (no date) (unknown) (unknown) leans forward, ears feel plugged, possibly slight ome on exam. using inhaler (units unknown) (unknown) (unknown) (no date) (unknown) (unknown) may occur. Occ asional wrong-word or 'sound-alike' substitutions may have (units unknown) (unknown) (unknown) (no date) (unknown) (unknown) me once for tr eatment focused primarily on her neck pain and does feel that this (units unknown) (unknown) (unknown) (no date) (unknown) (unknown) methocarbamol 750 mg tablet 750 mg PO QID PRN muscle spasm #30 tabs 03/26/22 [Rx (units unknown) (unknown) (unknown) (no date) (unknown) (unknown) migrainosus pr esence: without status migrainosus Qualified Code(s): G43.009 (units unknown) (unknown) (unknown) (no date) (unknown) (unknown) minutes late. I did apologize for her inconvenience, noting that I was delayed (units unknown) (unknown) (unknown) (no date) (unknown) (unknown) more. cold in january, settled in sinuses 1-3 months ago. did not really get (units unknown) (unknown) (unknown) (no date) (unknown) (unknown) neck acu neutr al 30 needs today includes si9, si10, si11 and h points, inner (units unknown) (unknown) (unknown) (no date) (unknown) (unknown) nickel Adverse Reaction (Mild, Verified 06/07/22 10:40) (units unknown) (unknown) (unknown) (no date) (unknown) (unknown) occurred due t o the inherent limitations of voice recognition software. Please (units unknown) (unknown) (unknown) (no date) (unknown) (unknown) omeprazole 20 mg capsule,delayed release 20 mg PO BID #60 caps 03/26/22 [Rx (units unknown) (unknown) (unknown) (no date) (unknown) (unknown) ondansetron 4 mg disintegrating tablet 4 mg PO Q8H PRN nausea and vomiting #30 (units unknown) (unknown) (unknown) (no date) (unknown) (unknown) planned and sh e appeared to be feeling less frustrated by the end of the visit. (units unknown) (unknown) (unknown) (no date) (unknown) (unknown) points along i nner bladder line of the upper thoracic region in neutral (units unknown) (unknown) (unknown) (no date) (unknown) (unknown) points with or without global energetic treatment. (units unknown) (unknown) (unknown) (no date) (unknown) (unknown) read the note carefully and recognize, using context, where these substitutions (units unknown) (unknown) (unknown) (no date) (unknown) (unknown) shock. EBL: 0 mL. Provided discharge instructions. Pt ambulated from clinic (units unknown) (unknown) (unknown) (no date) (unknown) (unknown) software. Alth ough every effort is made to edit content, top lift nailer errors (units unknown) (unknown) (unknown) (no date) (unknown) (unknown) specific acupu ncture treatments moving forward. (units unknown) (unknown) (unknown) (no date) (unknown) (unknown) sumatriptan garcia ccinate 50 mg tablet (Imitrex) See Rx Instructions PO .COMPLEX #10 (units unknown) (unknown) (unknown) (no date) (unknown) (unknown) tabs 03/26/22 [Rx Confirmed 06/07/22] (units unknown) (unknown) (unknown) (no date) (unknown) (unknown) tabs 06/07/22 [Rx Confirmed 06/07/22] (units unknown) (unknown) (unknown) (no date) (unknown) (unknown) technique x 25 minutes. (units unknown) (unknown) (unknown) (no date) (unknown) (unknown) to carry heavy trays. 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 (units unknown) (unknown) (unknown) (no date) (unknown) (unknown) txed for ABS w ith doxy. pretty normal exam but has throbbing in forehead when (units unknown) (unknown) (unknown) (no date) (unknown) (unknown) which she feel s is improving, although the improvement may or may not be related (units unknown) (unknown) (unknown) (no date) (unknown) (unknown) without diffic ulty. F/U 1-2 weeks. Depending on response to today's treatment, (units unknown) (unknown) Result panel 18 (unknown) (no date) (unknown) (unknown) (no value) (units unknown) (unknown) (unknown) (no date) (unknown) (unknown) (1) Acute bact erial sinusitis: (units unknown) (unknown) (unknown) (no date) (unknown) (unknown) (2) Migraine: (units unknown) (unknown) (unknown) (no date) (unknown) (unknown) (3) Neck pain, chronic: (units unknown) (unknown) (unknown) (no date) (unknown) (unknown) 06/07/22 (units unknown) (unknown) (unknown) (no date) (unknown) (unknown) 06/07/22] (units unknown) (unknown) (unknown) (no date) (unknown) (unknown) 06/10/22 0932 (units unknown) (unknown) (unknown) (no date) (unknown) (unknown) 10:40) (units unknown) (unknown) (unknown) (no date) (unknown) (unknown) 10:43 (units unknown) (unknown) (unknown) (no date) (unknown) (unknown) 36 Y/O Female presents today for acupuncture. (units unknown) (unknown) (unknown) (no date) (unknown) (unknown) 36-year-old fe male presents for follow-up acupuncture treatment to address neck (units unknown) (unknown) (unknown) (no date) (unknown) (unknown) Acute bacteria l sinusitis: Treated with doxycycline. Encouraged fluids, rest. (units unknown) (unknown) (unknown) (no date) (unknown) (unknown) Affect: normal affec t (units unknown) (unknown) (unknown) (no date) (unknown) (unknown) Age/Sex: 36 / F Date of Service: (units unknown) (unknown) (unknown) (no date) (unknown) (unknown) All systems re viewed + are unremarkable except as noted in HPI and below (units unknown) (unknown) (unknown) (no date) (unknown) (unknown) Allergies (units unknown) (unknown) (unknown) (no date) (unknown) (unknown) [place] [address] (units unknown) (unknown) (unknown) (no date) (unknown) (unknown) Anxiety (units unknown) (unknown) (unknown) (no date) (unknown) (unknown) Appearance: gr ossly normal (units unknown) (unknown) (unknown) (no date) (unknown) (unknown) Assessment + Plan (u nits unknown) (unknown) (unknown) (no date) (unknown) (unknown) Asthma (units unknown) (unknown) (unknown) (no date) (unknown) (unknown) Attending Dr: Wes SCOTT (units unknown) (unknown) (unknown) (no date) (unknown) (unknown) Attitude: cooperativ e (units unknown) (unknown) (unknown) (no date) (unknown) (unknown) Auscultation: clear to auscultation bilaterally (units unknown) (unknown) (unknown) (no date) (unknown) (unknown) BMI 20.4 (units unknown) (unknown) (unknown) (no date) (unknown) (unknown) BP 100/64 (units unknown) (unknown) (unknown) (no date) (unknown) (unknown) Bilateral TMs with mild effusion, no bulging or erythema. TTP bilateral frontal (units unknown) (unknown) (unknown) (no date) (unknown) (unknown) Blood Pressure Location Rt brachial (units unknown) (unknown) (unknown) (no date) (unknown) (unknown) Cardio (units unknown) (unknown) (unknown) (no date) (unknown) (unknown) Changed (units unknown) (unknown) (unknown) (no date) (unknown) (unknown) Chief Complaint (uni ts unknown) (unknown) (unknown) (no date) (unknown) (unknown) Chief Complain t: Follow-up acupuncture/possible sinus infection (units unknown) (unknown) (unknown) (no date) (unknown) (unknown) Chronic neck pain/migraines: Record reviewed, pt interviewed and determined to (units unknown) (unknown) (unknown) (no date) (unknown) (unknown) Cognition: nor mal cognition (units unknown) (unknown) (unknown) (no date) (unknown) (unknown) Confirmed 06/07/22] (units unknown) (unknown) (unknown) (no date) (unknown) (unknown) Const (units unknown) (unknown) (unknown) (no date) (unknown) (unknown) : 5 Acct:[id number] (units unknown) (unknown) (unknown) (no date) (unknown) (unknown) Depression (units unknown) (unknown) (unknown) (no date) (unknown) (unknown) Dept at . (units unknown) (unknown) (unknown) (no date) (unknown) (unknown) Details: (units unknown) (unknown) (unknown) (no date) (unknown) (unknown) Documented By: Wes Herrera 06/07/22 1040 (units unknown) (unknown) (unknown) (no date) (unknown) (unknown) Ears: hearing grossly normal bilaterally and EAC's normal (units unknown) (unknown) (unknown) (no date) (unknown) (unknown) Effort + Inspe ction: normal respiratory effort (units unknown) (unknown) (unknown) (no date) (unknown) (unknown) Exam (units unknown) (unknown) (unknown) (no date) (unknown) (unknown) Eyes (units unknown) (unknown) (unknown) (no date) (unknown) (unknown) Family Practic e Office Visit (units unknown) (unknown) (unknown) (no date) (unknown) (unknown) [facility] (units unknown) (unknown) (unknown) (no date) (unknown) (unknown) [place] (units unknown) (unknown) (unknown) (no date) (unknown) (unknown) Follow-up at a ny point for new or worsening symptoms. (units unknown) (unknown) (unknown) (no date) (unknown) (unknown) From ondansetr on 4 mg PO QID PRN 14 tabs 2RF nausea and vomiting (units unknown) (unknown) (unknown) (no date) (unknown) (unknown) GV14, GV16, bi lateral GB20, BL10, SI9, SI10, SI11, SI13, SI14, SI15, SI16, (units unknown) (unknown) (unknown) (no date) (unknown) (unknown) Gait: normal gait (u nits unknown) (unknown) (unknown) (no date) (unknown) (unknown) Gastrointestinal Ups et (units unknown) (unknown) (unknown) (no date) (unknown) (unknown) General: appea raven normal, both eyes and all related structures (units unknown) (unknown) (unknown) (no date) (unknown) (unknown) General: coope rative and no acute distress (units unknown) (unknown) (unknown) (no date) (unknown) (unknown) General: patie nt alert, patient awake and patient oriented x3 (units unknown) (unknown) (unknown) (no date) (unknown) (unknown) H/O explorator y laparotomy (units unknown) (unknown) (unknown) (no date) (unknown) (unknown) H/O left knee surger y (units unknown) (unknown) (unknown) (no date) (unknown) (unknown) HENMT (units unknown) (unknown) (unknown) (no date) (unknown) (unknown) HFA) 2 puff in halation BID #12 grams 03/13/22 [Rx Confirmed 06/07/22] (units unknown) (unknown) (unknown) (no date) (unknown) (unknown) HPI (units unknown) (unknown) (unknown) (no date) (unknown) (unknown) Head: normal t o inspection and normocephalic (units unknown) (unknown) (unknown) (no date) (unknown) (unknown) Heart Sounds: S1 normal, S2 normal, normal S1 and S2 and no murmurs (units unknown) (unknown) (unknown) (no date) (unknown) (unknown) Height 160.02 cm (un its unknown) (unknown) (unknown) (no date) (unknown) (unknown) History of ope n heart surgery (units unknown) (unknown) (unknown) (no date) (unknown) (unknown) History of surgery ( units unknown) (unknown) (unknown) (no date) (unknown) (unknown) Itz naqvi p oints and points along inner bladder line of the upper thoracic re (units unknown) (unknown) (unknown) (no date) (unknown) (unknown) I have also or dered a refill of ondansetron which she uses as needed for nausea (units unknown) (unknown) (unknown) (no date) (unknown) (unknown) Intake Note: (units unknown) (unknown) (unknown) (no date) (unknown) (unknown) Intake perform ed by: Татьяна Llanes (units unknown) (unknown) (unknown) (no date) (unknown) (unknown) Intake (units unknown) (unknown) (unknown) (no date) (unknown) (unknown) Intake- Clincial Sta ff (units unknown) (unknown) (unknown) (no date) (unknown) (unknown) Intractability : not intractable Migraine type: without aura Status (units unknown) (unknown) (unknown) (no date) (unknown) (unknown) Irritation/redness ( units unknown) (unknown) (unknown) (no date) (unknown) (unknown) Judgment: judg ment good (units unknown) (unknown) (unknown) (no date) (unknown) (unknown) Kidney infection (un its unknown) (unknown) (unknown) (no date) (unknown) (unknown) Last Menstural Cycle + Details (units unknown) (unknown) (unknown) (no date) (unknown) (unknown) Loc: [facility] (units unknown) (unknown) (unknown) (no date) (unknown) (unknown) [id number] (units unknown) (unknown) (unknown) (no date) (unknown) (unknown) Medical Histor y (units unknown) (unknown) (unknown) (no date) (unknown) (unknown) Medications (units unknown) (unknown) (unknown) (no date) (unknown) (unknown) Medications: (units unknown) (unknown) (unknown) (no date) (unknown) (unknown) Mental Status: mental status grossly normal (units unknown) (unknown) (unknown) (no date) (unknown) (unknown) Migraine witho ut aura, not intractable, without status migrainosus (units unknown) (unknown) (unknown) (no date) (unknown) (unknown) Mild persistent asth ma (units unknown) (unknown) (unknown) (no date) (unknown) (unknown) Mood: congruent mood (units unknown) (unknown) (unknown) (no date) (unknown) (unknown) Mouth: oral mu cosae normal and oropharynx normal (units unknown) (unknown) (unknown) (no date) (unknown) (unknown) Neck (units unknown) (unknown) (unknown) (no date) (unknown) (unknown) Neck: normal v isual inspection and no lymphadenopathy (units unknown) (unknown) (unknown) (no date) (unknown) (unknown) Neuro (units unknown) (unknown) (unknown) (no date) (unknown) (unknown) New (units unknown) (unknown) (unknown) (no date) (unknown) (unknown) Nose: external nose normal and nasal mucous membranes and turbinates normal (units unknown) (unknown) (unknown) (no date) (unknown) (unknown) Other Menstrua l Period: Other (units unknown) (unknown) (unknown) (no date) (unknown) (unknown) Other: (units unknown) (unknown) (unknown) (no date) (unknown) (unknown) Oxygen Deliver y Method room air (units unknown) (unknown) (unknown) (no date) (unknown) (unknown) PFSH (units unknown) (unknown) (unknown) (no date) (unknown) (unknown) Patient also h as a concern about possible ongoing bacterial sinus infection. (units unknown) (unknown) (unknown) (no date) (unknown) (unknown) Patient: Carmina Shukla MR#: (units unknown) (unknown) (unknown) (no date) (unknown) (unknown) Penicillins Al lergy (Intermediate, Verified 06/07/22 10:40) (units unknown) (unknown) (unknown) (no date) (unknown) (unknown) Pertussis Vacc matt [PERTUSSIS VACCINES] Allergy (Unknown, Verified 06/07/22 (units unknown) (unknown) (unknown) (no date) (unknown) (unknown) Plan (units unknown) (unknown) (unknown) (no date) (unknown) (unknown) Position Sitting (un its unknown) (unknown) (unknown) (no date) (unknown) (unknown) Psych (units unknown) (unknown) (unknown) (no date) (unknown) (unknown) Pt tolerated w ell with no complications. In particular, no signs of needle (units unknown) (unknown) (unknown) (no date) (unknown) (unknown) Pulse 61 (units unknown) (unknown) (unknown) (no date) (unknown) (unknown) Pulse Oximetry (%) 9 7 (units unknown) (unknown) (unknown) (no date) (unknown) (unknown) Pulse Source Monitor (units unknown) (unknown) (unknown) (no date) (unknown) (unknown) Qualifiers: (units unknown) (unknown) (unknown) (no date) (unknown) (unknown) ROS (units unknown) (unknown) (unknown) (no date) (unknown) (unknown) Rash (units unknown) (unknown) (unknown) (no date) (unknown) (unknown) Rash, throat w as tingly (units unknown) (unknown) (unknown) (no date) (unknown) (unknown) Rate: regular rate ( units unknown) (unknown) (unknown) (no date) (unknown) (unknown) Reason For Visit (un its unknown) (unknown) (unknown) (no date) (unknown) (unknown) Resp (units unknown) (unknown) (unknown) (no date) (unknown) (unknown) Rhythm: regular rhyt hm (units unknown) (unknown) (unknown) (no date) (unknown) (unknown) S/P laparoscop ic supracervical hysterectomy (04/04/18) (units unknown) (unknown) (unknown) (no date) (unknown) (unknown) SY/TY versus CT pens . (units unknown) (unknown) (unknown) (no date) (unknown) (unknown) Seizure (units unknown) (unknown) (unknown) (no date) (unknown) (unknown) She has been i ll for much of the time since January. States that she got a (units unknown) (unknown) (unknown) (no date) (unknown) (unknown) Signed By: <Electronically signed by Wes Herrera> (units unknown) (unknown) (unknown) (no date) (unknown) (unknown) Signed (units unknown) (unknown) (unknown) (no date) (unknown) (unknown) Smoking Status : Former smoker (units unknown) (unknown) (unknown) (no date) (unknown) (unknown) Social History (unit s unknown) (unknown) (unknown) (no date) (unknown) (unknown) Speech: speech jt l (units unknown) (unknown) (unknown) (no date) (unknown) (unknown) States that maggi victoria had actually been seeking attention for what she felt to be a (units unknown) (unknown) (unknown) (no date) (unknown) (unknown) Status: Inactive (un its unknown) (unknown) (unknown) (no date) (unknown) (unknown) Stomach pain, nausea, headache (units unknown) (unknown) (unknown) (no date) (unknown) (unknown) Surgical Histo ry (units unknown) (unknown) (unknown) (no date) (unknown) (unknown) This note may have been all or partially generated using voice recognition (units unknown) (unknown) (unknown) (no date) (unknown) (unknown) Thought Conten t: normal (units unknown) (unknown) (unknown) (no date) (unknown) (unknown) Thought Proces s: normal (units unknown) (unknown) (unknown) (no date) (unknown) (unknown) 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 (units unknown) (unknown) (unknown) (no date) (unknown) (unknown) To ondansetron 4 mg PO Q8H PRN 30 tabs 1RF nausea and vomiting (units unknown) (unknown) (unknown) (no date) (unknown) (unknown) Tobacco + Subs tance Use (units unknown) (unknown) (unknown) (no date) (unknown) (unknown) Tobacco Status (unit s unknown) (unknown) (unknown) (no date) (unknown) (unknown) Today we re-ev aluated her condition and discussed plan of care including (units unknown) (unknown) (unknown) (no date) (unknown) (unknown) Visit Reasons: acupuncture 04 (units unknown) (unknown) (unknown) (no date) (unknown) (unknown) Vitals (units unknown) (unknown) (unknown) (no date) (unknown) (unknown) We can follow- up on this when we see her for future acupuncture appointments. (units unknown) (unknown) (unknown) (no date) (unknown) (unknown) Weight 52.333 kg (un its unknown) (unknown) (unknown) (no date) (unknown) (unknown) albuterol sulf ate 90 mcg/actuation aerosol inhaler (ProAir HFA) 2 puff (units unknown) (unknown) (unknown) (no date) (unknown) (unknown) amoxicillin Al lergy (Intermediate, Verified 06/07/22 10:40) (units unknown) (unknown) (unknown) (no date) (unknown) (unknown) associated wit h recurrent esophageal spasms. (units unknown) (unknown) (unknown) (no date) (unknown) (unknown) azithromycin A llergy (Intermediate, Verified 06/07/22 10:40) (units unknown) (unknown) (unknown) (no date) (unknown) (unknown) be an appropri ate acupuncture candidate at initial acupuncture visit. Verified (units unknown) (unknown) (unknown) (no date) (unknown) (unknown) been helpful. (units unknown) (unknown) (unknown) (no date) (unknown) (unknown) changing. She has a history of asthma and is using her rescue inhaler more than (units unknown) (unknown) (unknown) (no date) (unknown) (unknown) ciprofloxacin Allergy (Intermediate, Verified 06/07/22 10:40) (units unknown) (unknown) (unknown) (no date) (unknown) (unknown) cold in [place] but that this seemed to have settled into the sinuses 1 to 3 (units unknown) (unknown) (unknown) (no date) (unknown) (unknown) consider same or similar treatment with or without global energetic treatment on (units unknown) (unknown) (unknown) (no date) (unknown) (unknown) doxycycline hy clate 100 mg PO BID 20 tabs 0RF (units unknown) (unknown) (unknown) (no date) (unknown) (unknown) doxycycline hy clate 100 mg tablet 100 mg PO BID #20 tabs 06/07/22 [Rx Confirmed (units unknown) (unknown) (unknown) (no date) (unknown) (unknown) fluticasone pr opionate 230 mcg-salmeterol 21 mcg/actuation HFA inhaler (Advair (units unknown) (unknown) (unknown) (no date) (unknown) (unknown) frontal area w hen she leans forward, ears feel plugged, coughing up phlegm. Has (units unknown) (unknown) (unknown) (no date) (unknown) (unknown) gion in neutra l technique x 20 minutes. (units unknown) (unknown) (unknown) (no date) (unknown) (unknown) gluten Adverse Reaction (Mild, Verified 06/07/22 10:40) (units unknown) (unknown) (unknown) (no date) (unknown) (unknown) has no contraindications. Proper counseling and consent completed prior to (units unknown) (unknown) (unknown) (no date) (unknown) (unknown) have occurred. If there are any questions, please contact the Medical Records (units unknown) (unknown) (unknown) (no date) (unknown) (unknown) household memb ers: spouse and children (units unknown) (unknown) (unknown) (no date) (unknown) (unknown) hydromorphone Allergy (Mild, Verified 06/07/22 10:40) (units unknown) (unknown) (unknown) (no date) (unknown) (unknown) ibuprofen Jeffrey rgy (Mild, Verified 06/07/22 10:40) (units unknown) (unknown) (unknown) (no date) (unknown) (unknown) inhalation Q4- 6H PRN shortness of breath or wheezing #8.5 grams 05/27/22 [Rx (units unknown) (unknown) (unknown) (no date) (unknown) (unknown) initial procedure. ( units unknown) (unknown) (unknown) (no date) (unknown) (unknown) may occur. Occ asional wrong-word or 'sound-alike' substitutions may have (units unknown) (unknown) (unknown) (no date) (unknown) (unknown) methocarbamol 750 mg tablet 750 mg PO QID PRN muscle spasm #30 tabs 03/26/22 [Rx (units unknown) (unknown) (unknown) (no date) (unknown) (unknown) migrainosus pr esence: without status migrainosus Qualified Code(s): G43.009 (units unknown) (unknown) (unknown) (no date) (unknown) (unknown) months ago. As noted elsewhere she has been seen several times for a number of (units unknown) (unknown) (unknown) (no date) (unknown) (unknown) nasal congesti on and some thick drainage. These symptoms do not seem to be (units unknown) (unknown) (unknown) (no date) (unknown) (unknown) nickel Adverse Reaction (Mild, Verified 06/07/22 10:40) (units unknown) (unknown) (unknown) (no date) (unknown) (unknown) occurred due t o the inherent limitations of voice recognition software. Please (units unknown) (unknown) (unknown) (no date) (unknown) (unknown) omeprazole 20 mg capsule,delayed release 20 mg PO BID #60 caps 03/26/22 [Rx (units unknown) (unknown) (unknown) (no date) (unknown) (unknown) ondansetron 4 mg disintegrating tablet 4 mg PO Q8H PRN nausea and vomiting #30 (units unknown) (unknown) (unknown) (no date) (unknown) (unknown) pain and migra ine. She has had 2 treatments thus far which she does feel has (units unknown) (unknown) (unknown) (no date) (unknown) (unknown) read the note carefully and recognize, using context, where these substitutions (units unknown) (unknown) (unknown) (no date) (unknown) (unknown) she does jt lly. No fevers/chills. (units unknown) (unknown) (unknown) (no date) (unknown) (unknown) shock. EBL: 0 mL. Provided discharge instructions. Pt ambulated from clinic (units unknown) (unknown) (unknown) (no date) (unknown) (unknown) sinus infectio n but addressing the I took precedence when she was seen. Her eye (units unknown) (unknown) (unknown) (no date) (unknown) (unknown) sinuses. Small amount thick discharge inside bilateral nares. (units unknown) (unknown) (unknown) (no date) (unknown) (unknown) software. Alth [facility] every effort is made to edit content, top lift nailer errors (units unknown) (unknown) (unknown) (no date) (unknown) (unknown) specific acupu ncture treatments moving forward. (units unknown) (unknown) (unknown) (no date) (unknown) (unknown) sumatriptan garcia ccinate 50 mg tablet (Imitrex) See Rx Instructions PO .COMPLEX #10 (units unknown) (unknown) (unknown) (no date) (unknown) (unknown) symptoms have subsided but she continues to experience ongoing throbbing in the (units unknown) (unknown) (unknown) (no date) (unknown) (unknown) symptoms inclu ding an eye infection which was treated recently with Keflex. (units unknown) (unknown) (unknown) (no date) (unknown) (unknown) tabs 03/26/22 [Rx Confirmed 06/07/22] (units unknown) (unknown) (unknown) (no date) (unknown) (unknown) tabs 06/07/22 [Rx Confirmed 06/07/22] (units unknown) (unknown) (unknown) (no date) (unknown) (unknown) without diffic ulty. F/U 1-2 weeks. Depending on response to today's treatment, (units unknown) (unknown) Result panel 19 (unknown) (no date) (unknown) (unknown) (no value) (units unknown) (unknown) (unknown) (no date) (unknown) (unknown) 06/21/22 (units unknown) (unknown) (unknown) (no date) (unknown) (unknown) 06/21/22] (units unknown) (unknown) (unknown) (no date) (unknown) (unknown) 09:54) (units unknown) (unknown) (unknown) (no date) (unknown) (unknown) 09:55 (units unknown) (unknown) (unknown) (no date) (unknown) (unknown) 36 Y/O Female presents today for Acupuncture. (units unknown) (unknown) (unknown) (no date) (unknown) (unknown) Age/Sex: 36 / F Date of Service: (units unknown) (unknown) (unknown) (no date) (unknown) (unknown) Allergies (units unknown) (unknown) (unknown) (no date) (unknown) (unknown) [place] [address] (units unknown) (unknown) (unknown) (no date) (unknown) (unknown) Anxiety (units unknown) (unknown) (unknown) (no date) (unknown) (unknown) Asthma (units unknown) (unknown) (unknown) (no date) (unknown) (unknown) Attending Dr: Wes SCOTT (units unknown) (unknown) (unknown) (no date) (unknown) (unknown) BMI 20.0 (units unknown) (unknown) (unknown) (no date) (unknown) (unknown) BP 100/64 (units unknown) (unknown) (unknown) (no date) (unknown) (unknown) Blood Pressure Location Lt brachial (units unknown) (unknown) (unknown) (no date) (unknown) (unknown) Confirmed 06/21/22] (units unknown) (unknown) (unknown) (no date) (unknown) (unknown) : 5 Acct:[id number] (units unknown) (unknown) (unknown) (no date) (unknown) (unknown) Depression (units unknown) (unknown) (unknown) (no date) (unknown) (unknown) Dept at . (units unknown) (unknown) (unknown) (no date) (unknown) (unknown) Documented By: Wes Herrera 06/21/22 0954 (units unknown) (unknown) (unknown) (no date) (unknown) (unknown) Draft (units unknown) (unknown) (unknown) (no date) (unknown) (unknown) Family Practic e Office Visit (units unknown) (unknown) (unknown) (no date) (unknown) (unknown) [facility] (units unknown) (unknown) (unknown) (no date) (unknown) (unknown) [place] (units unknown) (unknown) (unknown) (no date) (unknown) (unknown) Gastrointestinal Ups et (units unknown) (unknown) (unknown) (no date) (unknown) (unknown) H/O explorator y laparotomy (units unknown) (unknown) (unknown) (no date) (unknown) (unknown) H/O left knee surger y (units unknown) (unknown) (unknown) (no date) (unknown) (unknown) HFA) 2 puff in halation BID #12 grams 03/13/22 [Rx Confirmed 06/21/22] (units unknown) (unknown) (unknown) (no date) (unknown) (unknown) Height 5 ft 3 in (un its unknown) (unknown) (unknown) (no date) (unknown) (unknown) History of ope n heart surgery (units unknown) (unknown) (unknown) (no date) (unknown) (unknown) History of surgery ( units unknown) (unknown) (unknown) (no date) (unknown) (unknown) Intake Note: (units unknown) (unknown) (unknown) (no date) (unknown) (unknown) Intake perform ed by: Татьяна Llanes (units unknown) (unknown) (unknown) (no date) (unknown) (unknown) Intake (units unknown) (unknown) (unknown) (no date) (unknown) (unknown) Intake- Clincial Sta ff (units unknown) (unknown) (unknown) (no date) (unknown) (unknown) Irritation/redness ( units unknown) (unknown) (unknown) (no date) (unknown) (unknown) Kidney infection (un its unknown) (unknown) (unknown) (no date) (unknown) (unknown) Last Menstural Cycle + Details (units unknown) (unknown) (unknown) (no date) (unknown) (unknown) Loc: [facility] (units unknown) (unknown) (unknown) (no date) (unknown) (unknown) [id number] (units unknown) (unknown) (unknown) (no date) (unknown) (unknown) Medical Histor y (units unknown) (unknown) (unknown) (no date) (unknown) (unknown) Medications (units unknown) (unknown) (unknown) (no date) (unknown) (unknown) Mild persistent asth ma (units unknown) (unknown) (unknown) (no date) (unknown) (unknown) Other Menstrua l Period: Other (units unknown) (unknown) (unknown) (no date) (unknown) (unknown) Oxygen Deliver y Method room air (units unknown) (unknown) (unknown) (no date) (unknown) (unknown) PFSH (units unknown) (unknown) (unknown) (no date) (unknown) (unknown) Patient: Carmina Shukla MR#: (units unknown) (unknown) (unknown) (no date) (unknown) (unknown) Penicillins Al dwaynegy (Intermediate, Verified 06/21/22 09:54) (units unknown) (unknown) (unknown) (no date) (unknown) (unknown) Pertussis Vacc matt [PERTUSSIS VACCINES] Allergy (Unknown, Verified 06/21/22 (units unknown) (unknown) (unknown) (no date) (unknown) (unknown) Position Sitting (un its unknown) (unknown) (unknown) (no date) (unknown) (unknown) Pulse 78 (units unknown) (unknown) (unknown) (no date) (unknown) (unknown) Pulse Oximetry (%) 9 7 (units unknown) (unknown) (unknown) (no date) (unknown) (unknown) Pulse Source Monitor (units unknown) (unknown) (unknown) (no date) (unknown) (unknown) Rash (units unknown) (unknown) (unknown) (no date) (unknown) (unknown) Rash, throat w as tingly (units unknown) (unknown) (unknown) (no date) (unknown) (unknown) Reason For Visit (un its unknown) (unknown) (unknown) (no date) (unknown) (unknown) S/P laparoscop ic supracervical hysterectomy (04/04/18) (units unknown) (unknown) (unknown) (no date) (unknown) (unknown) Seizure (units unknown) (unknown) (unknown) (no date) (unknown) (unknown) Signed By: (units unknown) (unknown) (unknown) (no date) (unknown) (unknown) Smoking Status : Former smoker (units unknown) (unknown) (unknown) (no date) (unknown) (unknown) Social History (unit s unknown) (unknown) (unknown) (no date) (unknown) (unknown) Stomach pain, nausea, headache (units unknown) (unknown) (unknown) (no date) (unknown) (unknown) Surgical Histo ry (units unknown) (unknown) (unknown) (no date) (unknown) (unknown) This note may have been all or partially generated using voice recognition (units unknown) (unknown) (unknown) (no date) (unknown) (unknown) Tobacco + Subs tance Use (units unknown) (unknown) (unknown) (no date) (unknown) (unknown) Tobacco Status (unit s unknown) (unknown) (unknown) (no date) (unknown) (unknown) Visit Reasons: acupuncture 05 (units unknown) (unknown) (unknown) (no date) (unknown) (unknown) Vitals (units unknown) (unknown) (unknown) (no date) (unknown) (unknown) Weight 113 lb (units unknown) (unknown) (unknown) (no date) (unknown) (unknown) albuterol sulf ate 90 mcg/actuation aerosol inhaler (ProAir HFA) 2 puff (units unknown) (unknown) (unknown) (no date) (unknown) (unknown) amoxicillin Al lergy (Intermediate, Verified 06/21/22 09:54) (units unknown) (unknown) (unknown) (no date) (unknown) (unknown) azithromycin A llergy (Intermediate, Verified 06/21/22 09:54) (units unknown) (unknown) (unknown) (no date) (unknown) (unknown) ciprofloxacin Allergy (Intermediate, Verified 06/21/22 09:54) (units unknown) (unknown) (unknown) (no date) (unknown) (unknown) doxycycline hy clate 100 mg tablet 100 mg PO BID #20 tabs 06/07/22 [Rx Confirmed (units unknown) (unknown) (unknown) (no date) (unknown) (unknown) fluticasone pr opionate 230 mcg-salmeterol 21 mcg/actuation HFA inhaler (Advair (units unknown) (unknown) (unknown) (no date) (unknown) (unknown) gluten Adverse Reaction (Mild, Verified 06/21/22 09:54) (units unknown) (unknown) (unknown) (no date) (unknown) (unknown) have occurred. If there are any questions, please contact the Medical Records (units unknown) (unknown) (unknown) (no date) (unknown) (unknown) household memb ers: spouse and children (units unknown) (unknown) (unknown) (no date) (unknown) (unknown) hydromorphone Allergy (Mild, Verified 06/21/22 09:54) (units unknown) (unknown) (unknown) (no date) (unknown) (unknown) ibuprofen Jeffrey rgy (Mild, Verified 06/21/22 09:54) (units unknown) (unknown) (unknown) (no date) (unknown) (unknown) inhalation Q4- 6H PRN shortness of breath or wheezing #8.5 grams 05/27/22 [Rx (units unknown) (unknown) (unknown) (no date) (unknown) (unknown) may occur. Occ asional wrong-word or 'sound-alike' substitutions may have (units unknown) (unknown) (unknown) (no date) (unknown) (unknown) methocarbamol 750 mg tablet 750 mg PO QID PRN muscle spasm #30 tabs 03/26/22 [Rx (units unknown) (unknown) (unknown) (no date) (unknown) (unknown) nickel Adverse Reaction (Mild, Verified 06/21/22 09:54) (units unknown) (unknown) (unknown) (no date) (unknown) (unknown) occurred due t o the inherent limitations of voice recognition software. Please (units unknown) (unknown) (unknown) (no date) (unknown) (unknown) omeprazole 20 mg capsule,delayed release 20 mg PO BID #60 caps 03/26/22 [Rx (units unknown) (unknown) (unknown) (no date) (unknown) (unknown) ondansetron 4 mg disintegrating tablet 4 mg PO Q8H PRN nausea and vomiting #30 (units unknown) (unknown) (unknown) (no date) (unknown) (unknown) read the note carefully and recognize, using context, where these substitutions (units unknown) (unknown) (unknown) (no date) (unknown) (unknown) software. Alth ough every effort is made to edit content, top lift nailer errors (units unknown) (unknown) (unknown) (no date) (unknown) (unknown) sumatriptan garcia ccinate 50 mg tablet (Imitrex) See Rx Instructions PO .COMPLEX #10 (units unknown) (unknown) (unknown) (no date) (unknown) (unknown) tabs 03/26/22 [Rx Confirmed 06/21/22] (units unknown) (unknown) (unknown) (no date) (unknown) (unknown) tabs 06/07/22 [Rx Confirmed 06/21/22] (units unknown) (unknown) Result panel 20 (unknown) (no date) (unknown) (unknown) (no value) (units unknown) (unknown) (unknown) (no date) (unknown) (unknown) 06/21/22 (units unknown) (unknown) (unknown) (no date) (unknown) (unknown) 06/21/22] (units unknown) (unknown) (unknown) (no date) (unknown) (unknown) 09:54) (units unknown) (unknown) (unknown) (no date) (unknown) (unknown) 09:55 (units unknown) (unknown) (unknown) (no date) (unknown) (unknown) 36 Y/O Female presents today for Acupuncture. (units unknown) (unknown) (unknown) (no date) (unknown) (unknown) Age/Sex: 36 / F Date of Service: (units unknown) (unknown) (unknown) (no date) (unknown) (unknown) Allergies (units unknown) (unknown) (unknown) (no date) (unknown) (unknown) [place] [address] (units unknown) (unknown) (unknown) (no date) (unknown) (unknown) Anxiety (units unknown) (unknown) (unknown) (no date) (unknown) (unknown) Asthma (units unknown) (unknown) (unknown) (no date) (unknown) (unknown) Attending Dr: Wes SCOTT (units unknown) (unknown) (unknown) (no date) (unknown) (unknown) BMI 20.0 (units unknown) (unknown) (unknown) (no date) (unknown) (unknown) BP 100/64 (units unknown) (unknown) (unknown) (no date) (unknown) (unknown) Blood Pressure Location Lt brachial (units unknown) (unknown) (unknown) (no date) (unknown) (unknown) Confirmed 06/21/22] (units unknown) (unknown) (unknown) (no date) (unknown) (unknown) : 5 Acct:[id number] (units unknown) (unknown) (unknown) (no date) (unknown) (unknown) Depression (units unknown) (unknown) (unknown) (no date) (unknown) (unknown) Dept at . (units unknown) (unknown) (unknown) (no date) (unknown) (unknown) Documented By: Wes Herrera [facility] 06/21/22 0954 (units unknown) (unknown) (unknown) (no date) (unknown) (unknown) Draft (units unknown) (unknown) (unknown) (no date) (unknown) (unknown) Family Practic e Office Visit (units unknown) (unknown) (unknown) (no date) (unknown) (unknown) [facility] (units unknown) (unknown) (unknown) (no date) (unknown) (unknown) [place] (units unknown) (unknown) (unknown) (no date) (unknown) (unknown) Gastrointestinal Ups et (units unknown) (unknown) (unknown) (no date) (unknown) (unknown) H/O explorator y laparotomy (units unknown) (unknown) (unknown) (no date) (unknown) (unknown) H/O left knee surger y (units unknown) (unknown) (unknown) (no date) (unknown) (unknown) HFA) 2 puff in halation BID #12 grams 03/13/22 [Rx Confirmed 06/21/22] (units unknown) (unknown) (unknown) (no date) (unknown) (unknown) Height 5 ft 3 in (un its unknown) (unknown) (unknown) (no date) (unknown) (unknown) History of ope n heart surgery (units unknown) (unknown) (unknown) (no date) (unknown) (unknown) History of surgery ( units unknown) (unknown) (unknown) (no date) (unknown) (unknown) Intake Note: (units unknown) (unknown) (unknown) (no date) (unknown) (unknown) Intake perform ed by: Татьяна Llanes (units unknown) (unknown) (unknown) (no date) (unknown) (unknown) Intake (units unknown) (unknown) (unknown) (no date) (unknown) (unknown) Intake- Clincial Sta ff (units unknown) (unknown) (unknown) (no date) (unknown) (unknown) Irritation/redness ( units unknown) (unknown) (unknown) (no date) (unknown) (unknown) Kidney infection (un its unknown) (unknown) (unknown) (no date) (unknown) (unknown) Last Menstural Cycle + Details (units unknown) (unknown) (unknown) (no date) (unknown) (unknown) Loc: [facility] (units unknown) (unknown) (unknown) (no date) (unknown) (unknown) [id number] (units unknown) (unknown) (unknown) (no date) (unknown) (unknown) Medical Histor y (units unknown) (unknown) (unknown) (no date) (unknown) (unknown) Medications (units unknown) (unknown) (unknown) (no date) (unknown) (unknown) Mild persistent asth ma (units unknown) (unknown) (unknown) (no date) (unknown) (unknown) Other Menstrua l Period: Other (units unknown) (unknown) (unknown) (no date) (unknown) (unknown) Oxygen Deliver y Method room air (units unknown) (unknown) (unknown) (no date) (unknown) (unknown) PFSH (units unknown) (unknown) (unknown) (no date) (unknown) (unknown) Patient: Carmina Shukla MR#: (units unknown) (unknown) (unknown) (no date) (unknown) (unknown) Penicillins Al lergy (Intermediate, Verified 06/21/22 09:54) (units unknown) (unknown) (unknown) (no date) (unknown) (unknown) Pertussis Vacc matt [PERTUSSIS VACCINES] Allergy (Unknown, Verified 06/21/22 (units unknown) (unknown) (unknown) (no date) (unknown) (unknown) Position Sitting (un its unknown) (unknown) (unknown) (no date) (unknown) (unknown) Pulse 78 (units unknown) (unknown) (unknown) (no date) (unknown) (unknown) Pulse Oximetry (%) 9 7 (units unknown) (unknown) (unknown) (no date) (unknown) (unknown) Pulse Source Monitor (units unknown) (unknown) (unknown) (no date) (unknown) (unknown) Rash (units unknown) (unknown) (unknown) (no date) (unknown) (unknown) Rash, throat w as tingly (units unknown) (unknown) (unknown) (no date) (unknown) (unknown) Reason For Visit (un its unknown) (unknown) (unknown) (no date) (unknown) (unknown) S/P laparoscop ic supracervical hysterectomy (04/04/18) (units unknown) (unknown) (unknown) (no date) (unknown) (unknown) Seizure (units unknown) (unknown) (unknown) (no date) (unknown) (unknown) Signed By: (units unknown) (unknown) (unknown) (no date) (unknown) (unknown) Smoking Status : Former smoker (units unknown) (unknown) (unknown) (no date) (unknown) (unknown) Social History (unit s unknown) (unknown) (unknown) (no date) (unknown) (unknown) Stomach pain, nausea, headache (units unknown) (unknown) (unknown) (no date) (unknown) (unknown) Surgical Histo ry (units unknown) (unknown) (unknown) (no date) (unknown) (unknown) This note may have been all or partially generated using voice recognition (units unknown) (unknown) (unknown) (no date) (unknown) (unknown) Tobacco + Subs tance Use (units unknown) (unknown) (unknown) (no date) (unknown) (unknown) Tobacco Status (unit s unknown) (unknown) (unknown) (no date) (unknown) (unknown) Visit Reasons: acupuncture 05 (units unknown) (unknown) (unknown) (no date) (unknown) (unknown) Vitals (units unknown) (unknown) (unknown) (no date) (unknown) (unknown) Weight 113 lb (units unknown) (unknown) (unknown) (no date) (unknown) (unknown) albuterol sulf ate 90 mcg/actuation aerosol inhaler (ProAir HFA) 2 puff (units unknown) (unknown) (unknown) (no date) (unknown) (unknown) amoxicillin Al lergy (Intermediate, Verified 06/21/22 09:54) (units unknown) (unknown) (unknown) (no date) (unknown) (unknown) azithromycin A llergy (Intermediate, Verified 06/21/22 09:54) (units unknown) (unknown) (unknown) (no date) (unknown) (unknown) ciprofloxacin Allergy (Intermediate, Verified 06/21/22 09:54) (units unknown) (unknown) (unknown) (no date) (unknown) (unknown) doxycycline hy clate 100 mg tablet 100 mg PO BID #20 tabs 06/07/22 [Rx Confirmed (units unknown) (unknown) (unknown) (no date) (unknown) (unknown) fluticasone pr opionate 230 mcg-salmeterol 21 mcg/actuation HFA inhaler (Advair (units unknown) (unknown) (unknown) (no date) (unknown) (unknown) gluten Adverse Reaction (Mild, Verified 06/21/22 09:54) (units unknown) (unknown) (unknown) (no date) (unknown) (unknown) have occurred. If there are any questions, please contact the Medical Records (units unknown) (unknown) (unknown) (no date) (unknown) (unknown) household memb ers: spouse and children (units unknown) (unknown) (unknown) (no date) (unknown) (unknown) hydromorphone Allergy (Mild, Verified 06/21/22 09:54) (units unknown) (unknown) (unknown) (no date) (unknown) (unknown) ibuprofen Jeffrey rgy (Mild, Verified 06/21/22 09:54) (units unknown) (unknown) (unknown) (no date) (unknown) (unknown) inhalation Q4- 6H PRN shortness of breath or wheezing #8.5 grams 05/27/22 [Rx (units unknown) (unknown) (unknown) (no date) (unknown) (unknown) may occur. Occ asional wrong-word or 'sound-alike' substitutions may have (units unknown) (unknown) (unknown) (no date) (unknown) (unknown) methocarbamol 750 mg tablet 750 mg PO QID PRN muscle spasm #30 tabs 03/26/22 [Rx (units unknown) (unknown) (unknown) (no date) (unknown) (unknown) nickel Adverse Reaction (Mild, Verified 06/21/22 09:54) (units unknown) (unknown) (unknown) (no date) (unknown) (unknown) occurred due t o the inherent limitations of voice recognition software. Please (units unknown) (unknown) (unknown) (no date) (unknown) (unknown) omeprazole 20 mg capsule,delayed release 20 mg PO BID #60 caps 03/26/22 [Rx (units unknown) (unknown) (unknown) (no date) (unknown) (unknown) ondansetron 4 mg disintegrating tablet 4 mg PO Q8H PRN nausea and vomiting #30 (units unknown) (unknown) (unknown) (no date) (unknown) (unknown) read the note carefully and recognize, using context, where these substitutions (units unknown) (unknown) (unknown) (no date) (unknown) (unknown) software. Alth ough every effort is made to edit content, top lift nailer errors (units unknown) (unknown) (unknown) (no date) (unknown) (unknown) sumatriptan garcia ccinate 50 mg tablet (Imitrex) See Rx Instructions PO .COMPLEX #10 (units unknown) (unknown) (unknown) (no date) (unknown) (unknown) tabs 03/26/22 [Rx Confirmed 06/21/22] (units unknown) (unknown) (unknown) (no date) (unknown) (unknown) tabs 06/07/22 [Rx Confirmed 06/21/22] (units unknown) (unknown) Result panel 21 (unknown) (no date) (unknown) (unknown) (no value) (units unknown) (unknown) (unknown) (no date) (unknown) (unknown) (1) Migraine: (units unknown) (unknown) (unknown) (no date) (unknown) (unknown) (2) Neck pain, chronic: (units unknown) (unknown) (unknown) (no date) (unknown) (unknown) 06/21/22 1046 (units unknown) (unknown) (unknown) (no date) (unknown) (unknown) 06/21/22 (units unknown) (unknown) (unknown) (no date) (unknown) (unknown) 06/21/22] (units unknown) (unknown) (unknown) (no date) (unknown) (unknown) 09:54) (units unknown) (unknown) (unknown) (no date) (unknown) (unknown) 09:55 (units unknown) (unknown) (unknown) (no date) (unknown) (unknown) 36 Y/O Female presents today for Acupuncture. (units unknown) (unknown) (unknown) (no date) (unknown) (unknown) 36-year-old fe male presents for follow-up acupuncture treatment to address neck (units unknown) (unknown) (unknown) (no date) (unknown) (unknown) Affect: normal affec t (units unknown) (unknown) (unknown) (no date) (unknown) (unknown) Age/Sex: 36 / F Date of Service: (units unknown) (unknown) (unknown) (no date) (unknown) (unknown) All systems re viewed + are unremarkable except as noted in HPI and below (units unknown) (unknown) (unknown) (no date) (unknown) (unknown) Allergies (units unknown) (unknown) (unknown) (no date) (unknown) (unknown) [place] [address] (units unknown) (unknown) (unknown) (no date) (unknown) (unknown) Anxiety (units unknown) (unknown) (unknown) (no date) (unknown) (unknown) Appearance: gr ossly normal (units unknown) (unknown) (unknown) (no date) (unknown) (unknown) Assessment + Plan (u nits unknown) (unknown) (unknown) (no date) (unknown) (unknown) Asthma (units unknown) (unknown) (unknown) (no date) (unknown) (unknown) Attending Dr: Wes SCOTT (units unknown) (unknown) (unknown) (no date) (unknown) (unknown) Attitude: cooperativ e (units unknown) (unknown) (unknown) (no date) (unknown) (unknown) BMI 20.0 (units unknown) (unknown) (unknown) (no date) (unknown) (unknown) BP 100/64 (units unknown) (unknown) (unknown) (no date) (unknown) (unknown) Blood Pressure Location Lt brachial (units unknown) (unknown) (unknown) (no date) (unknown) (unknown) Cardio (units unknown) (unknown) (unknown) (no date) (unknown) (unknown) Cervicothoraci c PENS performed: [place] along inner bladder line at C3/C5, T2/T4 (units unknown) (unknown) (unknown) (no date) (unknown) (unknown) Chief Complaint (uni ts unknown) (unknown) (unknown) (no date) (unknown) (unknown) Chief Complain t: Follow-up acupuncture (units unknown) (unknown) (unknown) (no date) (unknown) (unknown) Cognition: nor mal cognition (units unknown) (unknown) (unknown) (no date) (unknown) (unknown) Confirmed 06/21/22] (units unknown) (unknown) (unknown) (no date) (unknown) (unknown) Const (units unknown) (unknown) (unknown) (no date) (unknown) (unknown) : 5 Acct:[id number] (units unknown) (unknown) (unknown) (no date) (unknown) (unknown) Depression (units unknown) (unknown) (unknown) (no date) (unknown) (unknown) Dept at . (units unknown) (unknown) (unknown) (no date) (unknown) (unknown) Details: (units unknown) (unknown) (unknown) (no date) (unknown) (unknown) Documented By: Wes Herrera 06/21/22 0954 (units unknown) (unknown) (unknown) (no date) (unknown) (unknown) Effort + Inspe ction: normal respiratory effort (units unknown) (unknown) (unknown) (no date) (unknown) (unknown) Electro stimul ation was used in this acupuncture treatment as described in (units unknown) (unknown) (unknown) (no date) (unknown) (unknown) Exam (units unknown) (unknown) (unknown) (no date) (unknown) (unknown) Eyes (units unknown) (unknown) (unknown) (no date) (unknown) (unknown) Family Practic e Office Visit (units unknown) (unknown) (unknown) (no date) (unknown) (unknown) [facility] (units unknown) (unknown) (unknown) (no date) (unknown) (unknown) [place] (units unknown) (unknown) (unknown) (no date) (unknown) (unknown) Gait: normal gait (u nits unknown) (unknown) (unknown) (no date) (unknown) (unknown) Gastrointestinal Ups et (units unknown) (unknown) (unknown) (no date) (unknown) (unknown) General: appea raven normal, both eyes and all related structures (units unknown) (unknown) (unknown) (no date) (unknown) (unknown) General: coope rative and no acute distress (units unknown) (unknown) (unknown) (no date) (unknown) (unknown) General: no ra shes or lesions noted (units unknown) (unknown) (unknown) (no date) (unknown) (unknown) General: patie nt alert, patient awake and patient oriented x3 (units unknown) (unknown) (unknown) (no date) (unknown) (unknown) H/O explorator y laparotomy (units unknown) (unknown) (unknown) (no date) (unknown) (unknown) H/O left knee surger y (units unknown) (unknown) (unknown) (no date) (unknown) (unknown) HENMT (units unknown) (unknown) (unknown) (no date) (unknown) (unknown) HFA) 2 puff in halation BID #12 grams 03/13/22 [Rx Confirmed 06/21/22] (units unknown) (unknown) (unknown) (no date) (unknown) (unknown) HPI (units unknown) (unknown) (unknown) (no date) (unknown) (unknown) Head: normal t o inspection (units unknown) (unknown) (unknown) (no date) (unknown) (unknown) Height 160.02 cm (un its unknown) (unknown) (unknown) (no date) (unknown) (unknown) History of ope n heart surgery (units unknown) (unknown) (unknown) (no date) (unknown) (unknown) History of surgery ( units unknown) (unknown) (unknown) (no date) (unknown) (unknown) Intake Note: (units unknown) (unknown) (unknown) (no date) (unknown) (unknown) Intake perform ed by: Татьяна Llanes (units unknown) (unknown) (unknown) (no date) (unknown) (unknown) Intake (units unknown) (unknown) (unknown) (no date) (unknown) (unknown) Intake- Clincial Sta ff (units unknown) (unknown) (unknown) (no date) (unknown) (unknown) Intractability : not intractable Migraine type: without aura Status (units unknown) (unknown) (unknown) (no date) (unknown) (unknown) Irritation/redness ( units unknown) (unknown) (unknown) (no date) (unknown) (unknown) Kidney infection (un its unknown) (unknown) (unknown) (no date) (unknown) (unknown) Last Menstural Cycle + Details (units unknown) (unknown) (unknown) (no date) (unknown) (unknown) Loc: [facility] (units unknown) (unknown) (unknown) (no date) (unknown) (unknown) [id number] (units unknown) (unknown) (unknown) (no date) (unknown) (unknown) Medical Histor y (units unknown) (unknown) (unknown) (no date) (unknown) (unknown) Medications (units unknown) (unknown) (unknown) (no date) (unknown) (unknown) Mental Status: mental status grossly normal (units unknown) (unknown) (unknown) (no date) (unknown) (unknown) Migraine witho ut aura, not intractable, without status migrainosus (units unknown) (unknown) (unknown) (no date) (unknown) (unknown) Mild persistent asth ma (units unknown) (unknown) (unknown) (no date) (unknown) (unknown) Mood: congruent mood (units unknown) (unknown) (unknown) (no date) (unknown) (unknown) Neuro (units unknown) (unknown) (unknown) (no date) (unknown) (unknown) Other Menstrua l Period: Other (units unknown) (unknown) (unknown) (no date) (unknown) (unknown) Oxygen Deliver y Method room air (units unknown) (unknown) (unknown) (no date) (unknown) (unknown) PFSH (units unknown) (unknown) (unknown) (no date) (unknown) (unknown) Patient report s that her upper back and posterior aspect of shoulders feel much (units unknown) (unknown) (unknown) (no date) (unknown) (unknown) Patient: Carmina Shukla MR#: (units unknown) (unknown) (unknown) (no date) (unknown) (unknown) Penicillins Al lergy (Intermediate, Verified 06/21/22 09:54) (units unknown) (unknown) (unknown) (no date) (unknown) (unknown) Pertussis Vacc matt [PERTUSSIS VACCINES] Allergy (Unknown, Verified 06/21/22 (units unknown) (unknown) (unknown) (no date) (unknown) (unknown) Plan (units unknown) (unknown) (unknown) (no date) (unknown) (unknown) Position Sitting (un its unknown) (unknown) (unknown) (no date) (unknown) (unknown) Proper correctional counselor/case manager ing and consent completed prior to initial procedure. (units unknown) (unknown) (unknown) (no date) (unknown) (unknown) Psych (units unknown) (unknown) (unknown) (no date) (unknown) (unknown) Pt tolerated w ell with no complications. In particular, no signs of needle (units unknown) (unknown) (unknown) (no date) (unknown) (unknown) Pulse 78 (units unknown) (unknown) (unknown) (no date) (unknown) (unknown) Pulse Oximetry (%) 9 7 (units unknown) (unknown) (unknown) (no date) (unknown) (unknown) Pulse Source Monitor (units unknown) (unknown) (unknown) (no date) (unknown) (unknown) Qualifiers: (units unknown) (unknown) (unknown) (no date) (unknown) (unknown) ROS (units unknown) (unknown) (unknown) (no date) (unknown) (unknown) Rash (units unknown) (unknown) (unknown) (no date) (unknown) (unknown) Rash, throat w as tingly (units unknown) (unknown) (unknown) (no date) (unknown) (unknown) Rate: regular rate ( units unknown) (unknown) (unknown) (no date) (unknown) (unknown) Reason For Visit (un its unknown) (unknown) (unknown) (no date) (unknown) (unknown) Record reviewe d, pt interviewed and determined to be an appropriate acupuncture (units unknown) (unknown) (unknown) (no date) (unknown) (unknown) Resp (units unknown) (unknown) (unknown) (no date) (unknown) (unknown) S/P laparoscop ic supracervical hysterectomy (04/04/18) (units unknown) (unknown) (unknown) (no date) (unknown) (unknown) Seizure (units unknown) (unknown) (unknown) (no date) (unknown) (unknown) Signed By: <Electronically signed by Wes Herrera> (units unknown) (unknown) (unknown) (no date) (unknown) (unknown) Signed (units unknown) (unknown) (unknown) (no date) (unknown) (unknown) Skin (units unknown) (unknown) (unknown) (no date) (unknown) (unknown) Smoking Status : Former smoker (units unknown) (unknown) (unknown) (no date) (unknown) (unknown) Social History (unit s unknown) (unknown) (unknown) (no date) (unknown) (unknown) Speech: speech jt l (units unknown) (unknown) (unknown) (no date) (unknown) (unknown) Status: Inactive (un its unknown) (unknown) (unknown) (no date) (unknown) (unknown) Stomach pain, nausea, headache (units unknown) (unknown) (unknown) (no date) (unknown) (unknown) Surgical Histo ry (units unknown) (unknown) (unknown) (no date) (unknown) (unknown) This note may have been all or partially generated using voice recognition (units unknown) (unknown) (unknown) (no date) (unknown) (unknown) Thought Conten t: normal (units unknown) (unknown) (unknown) (no date) (unknown) (unknown) Thought Proces s: normal (units unknown) (unknown) (unknown) (no date) (unknown) (unknown) Tobacco + Subs tance Use (units unknown) (unknown) (unknown) (no date) (unknown) (unknown) Tobacco Status (unit s unknown) (unknown) (unknown) (no date) (unknown) (unknown) Today we re-ev aluated her condition and discussed plan of care including (units unknown) (unknown) (unknown) (no date) (unknown) (unknown) Visit Reasons: acupuncture 05 (units unknown) (unknown) (unknown) (no date) (unknown) (unknown) Vitals (units unknown) (unknown) (unknown) (no date) (unknown) (unknown) Weight 51.256 kg (un its unknown) (unknown) (unknown) (no date) (unknown) (unknown) albuterol sulf ate 90 mcg/actuation aerosol inhaler (ProAir HFA) 2 puff (units unknown) (unknown) (unknown) (no date) (unknown) (unknown) amoxicillin Al lergy (Intermediate, Verified 06/21/22 09:54) (units unknown) (unknown) (unknown) (no date) (unknown) (unknown) at 15 Hz in da isy chain fashion x 20 minutes (central module.) [place] in [facility] (units unknown) (unknown) (unknown) (no date) (unknown) (unknown) azithromycin A llergy (Intermediate, Verified 06/21/22 09:54) (units unknown) (unknown) (unknown) (no date) (unknown) (unknown) better since w e started acupuncture treatments. However her neck itself remains (units unknown) (unknown) (unknown) (no date) (unknown) (unknown) bilaterally an d inner bladder line at T8/T10 bilaterally at 30 Hz in kristy chain (units unknown) (unknown) (unknown) (no date) (unknown) (unknown) candidate at [facility] acupuncture visit. Verified has no contraindications. (units unknown) (unknown) (unknown) (no date) (unknown) (unknown) ciprofloxacin Allergy (Intermediate, Verified 06/21/22 09:54) (units unknown) (unknown) (unknown) (no date) (unknown) (unknown) consider same or similar treatment versus treatment similar to prior treatments (units unknown) (unknown) (unknown) (no date) (unknown) (unknown) detail below. (units unknown) (unknown) (unknown) (no date) (unknown) (unknown) doxycycline hy clate 100 mg tablet 100 mg PO BID #20 tabs 06/07/22 [Rx Confirmed (units unknown) (unknown) (unknown) (no date) (unknown) (unknown) fashion x 20 m inutes (peripheral module.) (units unknown) (unknown) (unknown) (no date) (unknown) (unknown) fluticasone pr opionate 230 mcg-salmeterol 21 mcg/actuation HFA inhaler (Advair (units unknown) (unknown) (unknown) (no date) (unknown) (unknown) gluten Adverse Reaction (Mild, Verified 06/21/22 09:54) (units unknown) (unknown) (unknown) (no date) (unknown) (unknown) have occurred. If there are any questions, please contact the Medical Records (units unknown) (unknown) (unknown) (no date) (unknown) (unknown) household memb ers: spouse and children (units unknown) (unknown) (unknown) (no date) (unknown) (unknown) hydromorphone Allergy (Mild, Verified 06/21/22 09:54) (units unknown) (unknown) (unknown) (no date) (unknown) (unknown) ibuprofen Jeffrey rgy (Mild, Verified 06/21/22 09:54) (units unknown) (unknown) (unknown) (no date) (unknown) (unknown) in neutral mik hnique, with or without global energetic treatment on SY/TY. (units unknown) (unknown) (unknown) (no date) (unknown) (unknown) inhalation Q4- 6H PRN shortness of breath or wheezing #8.5 grams 05/27/22 [Rx (units unknown) (unknown) (unknown) (no date) (unknown) (unknown) injury. (units unknown) (unknown) (unknown) (no date) (unknown) (unknown) may occur. Occ asional wrong-word or 'sound-alike' substitutions may have (units unknown) (unknown) (unknown) (no date) (unknown) (unknown) methocarbamol 750 mg tablet 750 mg PO QID PRN muscle spasm #30 tabs 03/26/22 [Rx (units unknown) (unknown) (unknown) (no date) (unknown) (unknown) migrainosus pr esence: without status migrainosus Qualified Code(s): G43.009 (units unknown) (unknown) (unknown) (no date) (unknown) (unknown) nickel Adverse Reaction (Mild, Verified 06/21/22 09:54) (units unknown) (unknown) (unknown) (no date) (unknown) (unknown) occurred due t o the inherent limitations of voice recognition software. Please (units unknown) (unknown) (unknown) (no date) (unknown) (unknown) omeprazole 20 mg capsule,delayed release 20 mg PO BID #60 caps 03/26/22 [Rx (units unknown) (unknown) (unknown) (no date) (unknown) (unknown) ondansetron 4 mg disintegrating tablet 4 mg PO Q8H PRN nausea and vomiting #30 (units unknown) (unknown) (unknown) (no date) (unknown) (unknown) pain and migraine. ( units unknown) (unknown) (unknown) (no date) (unknown) (unknown) read the note carefully and recognize, using context, where these substitutions (units unknown) (unknown) (unknown) (no date) (unknown) (unknown) shock. EBL: 0 mL. Provided discharge instructions. Pt ambulated from clinic (units unknown) (unknown) (unknown) (no date) (unknown) (unknown) software. Alth ough every effort is made to edit content, top lift nailer errors (units unknown) (unknown) (unknown) (no date) (unknown) (unknown) specific acupu ncture treatments moving forward. (units unknown) (unknown) (unknown) (no date) (unknown) (unknown) sumatriptan garcia ccinate 50 mg tablet (Imitrex) See Rx Instructions PO .COMPLEX #10 (units unknown) (unknown) (unknown) (no date) (unknown) (unknown) tabs 03/26/22 [Rx Confirmed 06/21/22] (units unknown) (unknown) (unknown) (no date) (unknown) (unknown) tabs 06/07/22 [Rx Confirmed 06/21/22] (units unknown) (unknown) (unknown) (no date) (unknown) (unknown) very tight and she would like to focus on this area. No new symptoms/acute (units unknown) (unknown) (unknown) (no date) (unknown) (unknown) without diffic ulty. F/U 1-2 weeks. Depending on response to today's treatment, (units unknown) (unknown) Social History date description facility 2022-04-09 00:00 Ex-smoker (finding) [facility] 2022-05-24 00:00 Ex-smoker (finding) [facility] 2022-06-07 00:00 Ex-smoker (finding) [facility] 2022-06-21 00:00 Ex-smoker (finding) [facility] Vital Signs date measurement value units 2022-04-09 00:00 BMI 19.8 kg/m2 2022-04-09 00:00 [...] 51.76 kg 2022-05-24 00:00 weight_standard 114.11 lb 2022-06-07 00:00 BMI 20.4 kg/m2 2022-06-07 00:00 BP_diastolic 64 mmHg 2022-06-07 00:00 BP_systolic 100 mmHg 2022-06-07 00:00 heart_rate 61 /min 2022-06-07 00:00 height_metric 160.02 cm 2022-06-07 00:00 height_standard 63 in 2022-06-07 00:00 o2_saturation 97 % 2022-06-07 00:00 weight_metric 52.33 kg 2022-06-07 00:00 weight_standard 115.37 lb 2022-06-21 00:00 BMI 20.0 kg/m2 2022-06-21 00:00 BP_diastolic 64 mmHg 2022-06-21 00:00 BP_systolic 100 mmHg 2022-06-21 00:00 heart_rate 78 /min 2022-06-21 00:00 height_metric 160.02 cm 2022-06-21 00:00 height_standard 63 in 2022-06-21 00:00 o2_saturation 97 % 2022-06-21 00:00 weight_metric 51.25 kg 2022-06-21 00:00 weight_standard 112.99 lb
[2022-06-26 10:59] LABS: BASOPHILS # (AUTO) 0.1 10^3/uL (0.0-0.1); BASOPHILS % (AUTO) 1.1 %; EOSINOPHILS # (AUTO) 0.3 10^3/uL (0.0-0.7); EOSINOPHILS % (AUTO) 3.7 %; HCT - HEMATOCRIT 37.8 % (37.0-47.0); HGB - HEMOGLOBIN 12.9 g/dL (12.0-16.0); LYMPHOCYTES # (AUTO) 1.5 10^3/uL (1.5-3.5); LYMPHOCYTES % (AUTO) 20.1 %; MEAN CORPUSCULAR HEMOGLOBIN 30.6 pg (27.0-31.0); MEAN CORPUSCULAR HGB CONC 34.1 g/dL (32.0-36.0); MEAN CORPUSCULAR VOLUME 89.8 fL (81.0-99.0); MEAN PLATELET VOLUME 10.4 fL (7.9-10.8); MONOCYTES # (AUTO) 0.4 10^3/uL (0.0-1.0); NEUTROPHILS # (AUTO) 5.2 10^3/uL (1.5-6.6); NEUTROPHILS % (AUTO) 69.8 %; PLT - PLATELET COUNT 338 10^3/uL (130-450); RED BLOOD COUNT 4.21 10^6/uL (4.20-5.40); RED CELL DISTRIBUTION WIDTH 11.6 % (12.0-15.0); WHITE BLOOD COUNT 7.4 x10^3/uL (4.8-10.8)
[2022-06-26 11:12] LABS: ALBUMIN 4.9 g/dL (3.2-5.5); ALBUMIN/GLOBULIN RATIO 1.4 (1.0-2.2); BILIRUBIN,TOTAL 0.9 mg/dL (0.2-1.0); CALCIUM 9.5 mg/dL (8.5-10.3); CREATININE 0.9 mg/dL (0.4-1.0); POTASSIUM 3.6 mmol/L (3.5-5.0); TOTAL PROTEIN 8.3 g/dL (6.7-8.2)
[2022-06-26] MEDS: SODIUM CHLORIDE 0.9% 1,000 ML IV STA ×2 (12:33→15:16)
[2022-06-26] MEDS: ONDANSETRON 4 MG/2 ML VIAL IVP STA (12:35)
[2022-06-26] MEDS: MORPHINE 2 MG/ML CARPUJECT IVP STA (12:36)
[2022-06-26 13:15] LABS: HCG,QUALITATIVE BLOOD NEGATIVE
[2022-06-26] MEDS: METOCLOPRAMIDE 10 MG/2 ML VIAL IVP STA (13:44)
[2022-06-26 14:31] LABS: BILIRUBIN,URINE NEGATIVE (NEGATIVE); GLUCOSE, URINE (UA) NEGATIVE (NEGATIVE); KETONES,URINE (UA) 40 mg/dL (NEGATIVE); LEUKOCYTE ESTERASE, URINE NEGATIVE (NEGATIVE); NITRITE,URINE NEGATIVE (NEGATIVE); OCCULT BLOOD,URINE NEGATIVE (NEGATIVE); PROTEIN,URINE TRACE mg/dL (NEGATIVE); UROBILINOGEN,URINE 0.2 (NORMAL) E.U./dL (NORMAL)
[2022-06-26 14:32] LABS: CLARITY,URINE CLEAR (CLEAR)
[2022-06-26] MEDS: DROPERIDOL 5 MG/2 ML VIAL IVP STA ×2 (15:13→15:15)
--- NOTE | 2022-06-26 15:35 | Ultrasound Report ---
PROCEDURE: Abdomen Limited INDICATIONS: RUQ pain TECHNIQUE: Real-time focused scanning was performed of the abdomen, with image documentation. COMPARISONS: 11/25/2017 FINDINGS: The liver measures 14 cm. Gallbladder is within normal limits, without stones or focal tenderness. The main portal vein is best nt. The CBD measures 5 mm. Right kidney measures 11 cm. No hydronephrosis. IMPRESSION: No acute sonographic abnormality in the right upper quadrant. Reviewed by: Joshua Salas MD on 06/26/2022 3:33 PM PDT Approved by: Joshua Salas MD on 06/26/2022 3:33 PM PDT Station ID: [id number]
--- NOTE | 2022-06-26 16:09 | ED Physician Documentation ---
PD HPI ABD PAIN - Stated complaint Stated Complaint: RT RIB PX - Chief complaint Chief Complaint: Abd Pain - History obtained from History obtained from: Patient - Additional information Additional information: Patient is a 36-year-old female with a reported history of esophageal spasms presenting for evaluation of nausea and vomiting that has been present since yesterday along with right upper quadrant pain. Patient has had prior ED visits for nausea and vomiting and Has Zofran at home which she states was not helping.She does admit to cannabis use but does not feel that this is a contributing factor she states that she uses it for her nausea.She does still have her gallbladder. She denies fever, chest pain, shortness of breath. She denies concerns for As she has had a hysterectomy. Review of Systems Constitutional: denies: Fever Cardiac: denies: Chest pain / pressure Respiratory: denies: Dyspnea GI: reports: Abdominal Pain, Nausea, Vomiting : denies: Dysuria Musculoskeletal: denies: Back pain Neurologic: denies: Headache PD PAST MEDICAL HISTORY - Past Medical History Past Medical History: Yes Cardiovascular: Murmur Respiratory: Asthma Neuro: None Endocrine/Autoimmune: None GI: Hemorrhoids, Other TRANSPORTATION AID: None : None HEENT: None Psych: Anxiety, Post traumatic stress disorder Musculoskeletal: Scoliosis, Other Derm: None - Past Surgical History Past Surgical History: Yes Ortho: Shoulder arthroplasty /TRANSPORTATION AID: Hysterectomy Cardiovascular: Other - Present Medications Home Medications: Ambulatory Orders Medication Instructions Recorded Confirmed Albuterol Sulfate [Proair 1 - 2 puffs IH Q6H PRN 05/26/22 06/26/22 Digihaler] Fluticasone/Salmeterol [Advair Hfa 2 puffs IH DAILY 05/26/22 06/26/22 230-21 Mcg Inhaler] Promethazine [Phenergan] 25 mg PO Q6H PRN #10 tablet 06/26/22 - Allergies Allergies/Adverse Reactions: Allergies Allergy/AdvReac Type Severity Reaction Status Date / Time amoxicillin [Amoxicillin] Allergy Severe throat Verified 06/26/22 10:35 swells Penicillins Allergy Severe Hives Verified 06/26/22 10:35 pertussis vaccine,adsorbed Allergy Severe seizures Verified 06/26/22 10:35 [Pertussis Vaccine,Adsorbed] NSAIDS (Non-Steroidal Allergy Nausea Verified 06/26/22 10:35 Anti-Inflamma ciprofloxacin [From Cipro] AdvReac Intermediate Cramps Verified 06/26/22 10:35 oxycodone HCl * AdvReac Mild Nausea Verified 06/26/22 10:35 [From Percocet] diphtheria, pertussis, AdvReac Unknown Verified 06/26/22 10:35 tetanus vacc haloperidol [From Haldol] AdvReac Visual Verified 06/26/22 10:35 disturbance meperidine HCl * AdvReac Itching Verified 06/26/22 10:35 [From Demerol] - Social History Does the pt smoke?: No Smoking Status: Never smoker Does the pt drink ETOH?: No Does the pt have substance abuse?: No - Immunizations Immunizations are current?: Yes - POLST Patient has POLST: No PD ED PE NORMAL - General General: Alert and oriented X 3, No acute distress, Well developed/nourished - HEENT HEENT: Atraumatic - Neck Neck: Supple, no meningeal sign - Cardiac Cardiac: RRR, No murmur - Respiratory Respiratory: No respiratory distress, Clear bilaterally - Abdomen Abdomen: Normal bowel sounds, Soft, Non distended, Other (Mild upper quadrant tenderness to palpation) - Derm Derm: Warm and dry - Neuro Neuro: Normal speech Results - Vitals Vitals: Vital Signs - 24 hr 06/26/22 06/26/22 06/26/22 10:32 12:10 13:15 Temperature 36.5 C Heart Rate 71 70 75 Respiratory 16 18 16 Rate Blood Pressure 149/86 H 128/68 121/69 O2 Saturation 98 100 100 06/26/22 06/26/22 15:20 16:16 Temperature 36.9 C Heart Rate 83 85 Respiratory 12 16 Rate Blood Pressure 119/77 114/77 O2 Saturation 100 100 Oxygen O2 Source Room air - Labs Labs: Laboratory Tests 06/26/22 06/26/22 06/26/22 10:55 10:55 10:55 WBC 7.4 RBC 4.21 Hgb 12.9 Hct 37.8 MCV 89.8 MCH 30.6 MCHC 34.1 RDW 11.6 L Plt Count 338 MPV 10.4 Neut # (Auto) 5.2 Lymph # (Auto) 1.5 [place] # (Auto) 0.4 Eos # (Auto) 0.3 Baso # (Auto) 0.1 Absolute Nucleated RBC 0.00 Nucleated RBC % 0.0 Sodium 140 Potassium 3.6 Chloride 102 Carbon Dioxide 26 Anion Gap 12.0 BUN 12 Creatinine 0.9 Estimated GFR (MDRD) 70 L Glucose 127 H Calcium 9.5 Total Bilirubin 0.9 AST 26 ALT 22 Alkaline Phosphatase 40 L Total Protein 8.3 H Albumin 4.9 Globulin 3.4 Albumin/Globulin Ratio 1.4 Lipase 61 H Serum HCG, Qual NEGATIVE Urine Color Urine Clarity Urine pH Ur Specific [place] Urine Protein Urine Glucose (UA) Urine Ketones Urine Occult Blood Urine Nitrite Urine Bilirubin Urine Urobilinogen Ur Leukocyte Esterase Ur Microscopic Review Urine Culture Comments 06/26/22 14:24 WBC RBC Hgb Hct MCV MCH MCHC RDW Plt Count MPV Neut # (Auto) Lymph # (Auto) [place] # (Auto) Eos # (Auto) Baso # (Auto) Absolute Nucleated RBC Nucleated RBC % Sodium Potassium Chloride Carbon Dioxide Anion Gap BUN Creatinine Estimated GFR (MDRD) Glucose Calcium Total Bilirubin AST ALT Alkaline Phosphatase Total Protein Albumin Globulin Albumin/Globulin Ratio Lipase Serum HCG, Qual Urine Color YELLOW Urine Clarity CLEAR Urine pH 6.0 Ur Specific [place] 1.025 Urine Protein TRACE Urine Glucose (UA) NEGATIVE Urine Ketones 40 H Urine Occult Blood NEGATIVE Urine Nitrite NEGATIVE Urine Bilirubin NEGATIVE Urine Urobilinogen 0.2 (NORMAL) Ur Leukocyte Esterase NEGATIVE Ur Microscopic Review NOT INDICATED Urine Culture Comments NOT INDICATED PD Medical Decision Making - ED course Complexity details: reviewed results, re-evaluated patient, d/w patient ED course: Patient presenting for evaluation of nausea and vomiting. She has had prior ED visits with similar presentations. She does have mild right upper quadrant tenderness on palpation. CBC, chemistries, test were reviewed and without significant findings. And right upper quadrant ultrasound was obtained and without signs of cholecystitis. She did receive IV fluids, IV Zofran, IV morphine, Reglan With some improvement in her symptoms.I did also give her a dose of IV droperidol which she reported significantly improved her symptoms.Her repeat abdominal exam is benign. She is feeling much better. She is requesting a prescription for Phenergan at home which she states has helped in the past. She is counseled on need for close follow-up with PCP As well as concerning symptoms to return for. Departure - Departure Disposition: 01 Home, Self Care Clinical Impression: Nausea & vomiting Condition: Stable Instructions: ED Nausea Vomiting Prescriptions: Promethazine [Phenergan] 25 mg PO Q6H PRN #10 tablet PRN Reason: Nausea / Vomiting Comments: Your labs are reassuring. Your ultrasound does not show any issues with your gallbladder. Please avoid any cannabis use as this may be worsening your episodes of nausea and vomiting. I would recommend close follow-up with your PCP and continue to pursue a GI referral. I have sent a prescription for promethazine to [facility] in [place]. Please return the emergency department with any worsening symptoms. Discharge Date/Time: 06/26/22 16:17
[2022-06-26 16:19] VITALS: BP 114/77
== END 2022-06-26 16:17 | disposition home or self-care (01) ==
LOC: ED 10:14
DX: R11.2 Nausea with vomiting, unspecified (principal)
CPT/HCPCS: 36415; 76705; 80053; 81003; 83690; 84703; 85025; 96374; 96375; 99284; 99285; J2765; 81001; 87086

== ENCOUNTER 2022-09-05 19:51 | Emergency (ER) | payer MEDICAID ==
--- NOTE | 2022-09-05 20:24 | ED Physician Documentation ---
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 denies pain with eom. denies foreign body but does state she was rubbing it earlier when the pain started and something may have gotten in there. PD PAST MEDICAL HISTORY - Past Medical History Cardiovascular: Murmur Respiratory: Asthma Neuro: None Endocrine/Autoimmune: None GI: Hemorrhoids, Other CORPORATE GENERAL MANAGER: None : None HEENT: None Psych: Anxiety, Post traumatic stress disorder Musculoskeletal: Scoliosis, Other Derm: None - Past Surgical History Past Surgical History: Yes Ortho: Shoulder arthroplasty /CORPORATE GENERAL MANAGER: Hysterectomy Cardiovascular: Other - Present Medications Home Medications: Ambulatory Orders Medication Instructions Recorded Confirmed Albuterol Sulfate [Proair 1 - 2 puffs IH Q6H PRN 05/26/22 09/05/22 Digihaler] Fluticasone/Salmeterol [Advair Hfa 2 puffs IH DAILY 05/26/22 09/05/22 230-21 Mcg Inhaler] Doxycycline Hyclate 100 mg PO QDAC 10 Days #10 tab 09/05/22 Neomycin/Bacit/P-Myx/Hydrocort 3.5 gm OP QID #3.5 gm 09/05/22 [Hkn-Jpacs-Jwrp-Hc Eye Ointment] Ondansetron Odt [Zofran Odt] 4 mg PO PRN PRN 09/05/22 09/05/22 - Allergies Allergies/Adverse Reactions: Allergies Allergy/AdvReac Type Severity Reaction Status Date / Time amoxicillin [Amoxicillin] Allergy Severe throat Verified 06/26/22 10:35 swells Penicillins Allergy Severe Hives Verified 06/26/22 10:35 pertussis vaccine,adsorbed Allergy Severe seizures Verified 06/26/22 10:35 [Pertussis Vaccine,Adsorbed] NSAIDS (Non-Steroidal Allergy Nausea Verified 06/26/22 10:35 Anti-Inflamma ciprofloxacin [From Cipro] AdvReac Intermediate Cramps Verified 06/26/22 10:35 oxycodone HCl * AdvReac Mild Nausea Verified 06/26/22 10:35 [From Percocet] diphtheria, pertussis, AdvReac Unknown Verified 06/26/22 10:35 tetanus vacc haloperidol [From Haldol] AdvReac Visual Verified 06/26/22 10:35 disturbance meperidine HCl * AdvReac Itching Verified 06/26/22 10:35 [From Demerol] - Social History Does the pt smoke?: No Smoking Status: Never smoker Does the pt drink ETOH?: No Does the pt have substance abuse?: No - Immunizations Immunizations are current?: Yes - POLST Patient has POLST: No PD ED PE NORMAL - Vitals Vital signs reviewed: Yes - General General: Alert and oriented X 3, No acute distress, Well developed/nourished - HEENT HEENT: Atraumatic, PERRL, EOMI, Moist mucous membranes, Pharynx benign, Other (mild to moderate swelling to midlower eyelid of R eye consistent with hordeolum. Sweet lamp exam uncovered no foreign body. no increased uptake on fluorescein testing) Results - Vitals Vitals: Vital Signs - 24 hr 09/05/22 20:02 Temperature 37 C Heart Rate 82 Respiratory 20 Rate Blood Pressure 124/77 O2 Saturation 99 Oxygen O2 Source Room air PD Medical Decision Making - ED course ED course: 37yF presents with R eye stye. since she had a complicated course recently requiring I &D of the same eye I am starting her on oral and topical antibiotics as well as recommending supportive management. return precautions given.patient will f/u with ophthalmology. Departure - Departure Disposition: 01 Home, Self Care Clinical Impression: Stye Condition: Stable Instructions: ED Hordeolum Prescriptions: Doxycycline Hyclate 100 mg PO QDAC 10 Days #10 tab Neomycin/Bacit/P-Myx/Hydrocort [Wpl-Alqri-Lqng-Hc Eye Ointment] 3.5 gm OP QID #3.5 gm Comments: Electronic rx for antibiotic drops and pills sent to [facility]. You should apply warm, moist compresses on the affected area frequently (eg, for 5 to 10 minutes four times a day). Massage and gentle wiping of the affected eyelid after the warm compress can also aid in drainage. Stop using any eye makeup to support healing. If, despite management with warm compresses, the lesion does not improve within two weeks, you should see an fine grader. Return to the ED for new or worsening symptoms or other concerns.
[2022-09-05 20:34] VITALS: BP 121/73
== END 2022-09-05 20:33 | disposition home or self-care (01) ==
LOC: ED 19:51
DX: H00.012 Hordeolum externum right lower eyelid (principal)
CPT/HCPCS: 99281; 99283

== ENCOUNTER 2022-10-30 15:15 | Emergency (ER) | payer MEDICAID ==
[2022-10-30] MEDS ORDERED: PROMETHAZINE INJ 25 MG in SODIUM CHLORIDE 0.9% 50 ML IV STA (15:42)
[2022-10-30] MEDS ORDERED: SODIUM CHLORIDE 0.9% 1,000 ML IV STA (15:42)
[2022-10-30] MEDS ORDERED: ONDANSETRON 4 MG/2 ML VIAL IVP STA (15:42)
[2022-10-30] MEDS ORDERED: MORPHINE 10 MG/ML VIAL IVP STA (15:42)
--- NOTE | 2022-10-30 15:49 | ED Physician Documentation ---
History of Present Illness - Stated complaint Stated Complaint: ABD PX - Chief complaint Chief Complaint: Abd Pain - History obtained from History obtained from: Patient - History of Present Illness Timing: Today Pain level max: 0 Pain level now: 0 - Additonal information Additional information: 37-year-old female presents to the emergency department with nausea and vomiting. Has a history of suspected celiac disease. She states she ran out of [employer] yesterday. She did have a recent viral URI, no fevers. She did take a dose of pseudoephedrine. No blood in the vomit. She has crampy abdominal pain and has been unable to tolerate p.o. Nothing makes it better or worse. 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 : None HEENT: None Psych: Anxiety, Post traumatic stress disorder Musculoskeletal: Scoliosis, Other Derm: None - Past Surgical History Past Surgical History: Yes Ortho: Shoulder arthroplasty /DOCK ATTENDANT: Hysterectomy Cardiovascular: Other - Present Medications Home Medications: Ambulatory Orders Medication Instructions Recorded Confirmed Albuterol Sulfate [Proair 1 - 2 puffs IH Q6H PRN 05/26/22 10/30/22 Digihaler] Fluticasone/Salmeterol [Advair Hfa 2 puffs IH DAILY 05/26/22 10/30/22 230-21 Mcg Inhaler] Ondansetron Odt [Zofran Odt] 4 mg PO PRN PRN 09/05/22 10/30/22 Omeprazole Magnesium 20 mg PO DAILY 10/30/22 10/30/22 Ondansetron Odt [Zofran] 4 mg TL Q6H PRN #20 tablet 10/30/22 Promethazine [Phenergan] 25 mg PO Q6H PRN #10 tab 10/30/22 - Allergies Allergies/Adverse Reactions: Allergies Allergy/AdvReac Type Severity Reaction Status Date / Time amoxicillin [Amoxicillin] Allergy Severe throat Verified 10/30/22 15:26 swells Penicillins Allergy Severe Hives Verified 10/30/22 15:26 pertussis vaccine,adsorbed Allergy Severe seizures Verified 10/30/22 15:26 [Pertussis Vaccine,Adsorbed] NSAIDS (Non-Steroidal Allergy Nausea Verified 10/30/22 15:26 Anti-Inflamma ciprofloxacin [From Cipro] AdvReac Intermediate Cramps Verified 10/30/22 15:26 oxycodone HCl * AdvReac Mild Nausea Verified 10/30/22 15:26 [From Percocet] diphtheria, pertussis, AdvReac Unknown Verified 10/30/22 15:26 tetanus vacc haloperidol [From Haldol] AdvReac Visual Verified 10/30/22 15:26 disturbance meperidine HCl * AdvReac Itching Verified 10/30/22 15:26 [From Demerol] - Social History Does the pt smoke?: No Smoking Status: Never smoker Does the pt drink ETOH?: No Does the pt have substance abuse?: No - Immunizations Immunizations are current?: Yes - POLST Patient has POLST: No PD ED PE NORMAL - Vitals Vital signs reviewed: Yes - General General: Alert and oriented X 3, No acute distress - HEENT HEENT: PERRL, Moist mucous membranes, Pharynx benign - Neck Neck: Supple, no meningeal sign, No bony TTP - Cardiac Cardiac: RRR - Respiratory Respiratory: No respiratory distress, Clear bilaterally - Abdomen Abdomen: Soft, Non tender, Non distended - Back Back: No CVA TTP, No spinal TTP - Derm Derm: Warm and dry - Extremities Extremities: No edema - Neuro Neuro: Alert and oriented X 3 - Psych Psych: Normal mood, Normal affect Results - Vitals Vitals: Vital Signs - 24 hr 10/30/22 10/30/22 15:21 17:19 Temperature 36.8 C Heart Rate 77 65 Respiratory 16 16 Rate Blood Pressure 109/64 125/67 O2 Saturation 97 100 Oxygen O2 Source Room air - Labs Labs: Laboratory Tests 10/30/22 10/30/22 15:49 15:49 WBC 11.7 H RBC 4.22 Hgb 12.8 Hct 36.9 L MCV 87.4 MCH 30.3 MCHC 34.7 RDW 11.1 L Plt Count 298 MPV 10.8 Neut # (Auto) 9.2 H Lymph # (Auto) 1.5 Mcdonald # (Auto) 0.9 Eos # (Auto) 0.0 Baso # (Auto) 0.0 Absolute Nucleated RBC 0.00 Nucleated RBC % 0.0 Sodium 136 Potassium 3.4 L Chloride 91 L Carbon Dioxide 33 H Anion Gap 12.0 BUN 14 Creatinine 0.8 Estimated GFR (MDRD) 80 L Glucose 101 Calcium 11.6 H Total Bilirubin 0.8 AST 30 ALT 16 Alkaline Phosphatase 38 L Total Protein 8.2 Albumin 5.1 Globulin 3.1 Albumin/Globulin Ratio 1.6 Lipase 212 H PD Medical Decision Making - ED course Complexity details: reviewed results, re-evaluated patient, considered differential, d/w patient, d/w family ED course: Patient was given IV fluids, Zofran, Phenergan and morphine. Abdominal pain and nausea resolved. Feels much better and requesting to go home at this time. She is mildly hypochloremic. Expect that this will improve with IV fluids. No other significant lab abnormalities. Abdomen is soft, nontender nondistended on serial exam. Appears to be an acute exacerbation of her celiac disease. We will prescribe Zofran and Phenergan for home. Patient counseled regarding signs and symptoms for which I believe and urgent re-evaluation would be necessary. Patient with good understanding of and agreement to plan and is comfortable going home at this time This document was made in part using voice recognition software. While efforts are made to proofread this document, sound alike and grammatical errors may occur. Departure - Departure Disposition: 01 Home, Self Care Clinical Impression: Abdominal pain, Dehydration Nausea and vomiting Qualifiers: Vomiting type: unspecified Qualified Code(s): R11.2 - Nausea with vomiting, unspecified Condition: Good Instructions: ED Nausea Vomiting Follow-Up: Wes Herrera ARNP [Primary Care Provider] - Within 1 week Prescriptions: Promethazine [Phenergan] 25 mg PO Q6H PRN #10 tab PRN Reason: Nausea / Vomiting Ondansetron Odt [Zofran] 4 mg TL Q6H PRN #20 tablet PRN Reason: Nausea / Vomiting Comments: Your prescriptions were sent to [facility] in [place]. Please use the medications as needed for nausea and vomiting. Please return if you worsen. Please make sure you are drinking plenty of water at home. Forms: PCP List Discharge Date/Time: 10/30/22 17:20
[2022-10-30 15:54] LABS: BASOPHILS % (AUTO) 0.2 %; EOSINOPHILS % (AUTO) 0.1 %; HCT - HEMATOCRIT 36.9 % (37.0-47.0); HGB - HEMOGLOBIN 12.8 g/dL (12.0-16.0); LYMPHOCYTES # (AUTO) 1.5 10^3/uL (1.5-3.5); LYMPHOCYTES % (AUTO) 12.9 %; MEAN CORPUSCULAR HEMOGLOBIN 30.3 pg (27.0-31.0); MEAN CORPUSCULAR HGB CONC 34.7 g/dL (32.0-36.0); MEAN CORPUSCULAR VOLUME 87.4 fL (81.0-99.0); MEAN PLATELET VOLUME 10.8 fL (7.9-10.8); MONOCYTES # (AUTO) 0.9 10^3/uL (0.0-1.0); MONOCYTES % (AUTO) 7.5 %; NEUTROPHILS # (AUTO) 9.2 10^3/uL (1.5-6.6); PLT - PLATELET COUNT 298 10^3/uL (130-450); RED BLOOD COUNT 4.22 10^6/uL (4.20-5.40); RED CELL DISTRIBUTION WIDTH 11.1 % (12.0-15.0); WHITE BLOOD COUNT 11.7 x10^3/uL (4.8-10.8)
[2022-10-30] MEDS ORDERED: PROMETHAZINE 25 MG/1 ML VIAL ONE (16:00)
[2022-10-30 16:09] LABS: ALBUMIN 5.1 g/dL (3.2-5.5); ALBUMIN/GLOBULIN RATIO 1.6 (1.0-2.2); BILIRUBIN,TOTAL 0.8 mg/dL (0.2-1.0); CALCIUM 11.6 mg/dL (8.5-10.3); CREATININE 0.8 mg/dL (0.6-1.3); POTASSIUM 3.4 mmol/L (3.5-4.5); TOTAL PROTEIN 8.2 g/dL (6.4-8.9)
[2022-10-30 17:24] VITALS: BP 125/67; O2SAT 100
== END 2022-10-30 17:20 | disposition home or self-care (01) ==
LOC: EDUNIT# → ED 15:15
DX: R11.2 Nausea with vomiting, unspecified (principal); E86.0 Dehydration; R10.9 Unspecified abdominal pain
CPT/HCPCS: 36415; 80053; 83690; 85025; 96365; 96375; 99283

== ENCOUNTER 2023-01-10 10:23 | Outpatient (CLI) | payer MEDICAID | END 2023-01-10 23:59 | disposition critical access hospital (66) | LOC: EMS 10:23 | DX: R10.10 Upper abdominal pain, unspecified (principal); R11.2 Nausea with vomiting, unspecified | CPT/HCPCS: A0425; A0427; A0999 ==

== ENCOUNTER 2023-01-10 10:55 | Emergency (ER) | payer MEDICAID ==
[2023-01-10] MEDS ORDERED: PROMETHAZINE INJ 25 MG in SODIUM CHLORIDE 0.9% 50 ML IV STA (11:12)
[2023-01-10] MEDS ORDERED: MORPHINE 2 MG/ML CARPUJECT IVP STA ×3 (11:12→13:29)
[2023-01-10] MEDS ORDERED: SODIUM CHLORIDE 0.9% 1,000 ML IV STA (11:12)
--- NOTE | 2023-01-10 11:12 | ED Physician Documentation ---
PD HPI NVD - Stated complaint Stated Complaint: ABD PX - Chief complaint Chief Complaint: Abd Pain - History obtained from History obtained from: Patient, Family, EMS - Additonal information Additional information: 37-year-old woman presents by ambulance. She has a history of chronic recurrent abdominal pain. She is under a lot of stress, and developed pain overnight in the epigastrium associate with vomiting but no diarrhea. It is similar to prior episodes of chronic recurrent issues. 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 HEENT: None Psych: Anxiety, Post traumatic stress disorder Musculoskeletal: Scoliosis, Other Derm: None - Past Surgical History Past Surgical History: Yes Ortho: Shoulder arthroplasty /NIGHT WORKER: Hysterectomy Cardiovascular: Other - Present Medications Home Medications: Ambulatory Orders Medication Instructions Recorded Confirmed Albuterol Sulfate [Proair 1 - 2 puffs IH Q6H PRN 05/26/22 01/10/23 Digihaler] Fluticasone/Salmeterol [Advair Hfa 2 puffs IH DAILY 05/26/22 01/10/23 230-21 Mcg Inhaler] Ondansetron Odt [Zofran Odt] 4 mg PO PRN PRN 09/05/22 01/10/23 Omeprazole Magnesium 20 mg PO DAILY 10/30/22 01/10/23 Promethazine [Phenergan] 25 mg PO Q6H PRN #10 tab 10/30/22 01/10/23 - Allergies Allergies/Adverse Reactions: Allergies Allergy/AdvReac Type Severity Reaction Status Date / Time amoxicillin [Amoxicillin] Allergy Severe throat Verified 01/10/23 11:04 swells Penicillins Allergy Severe Hives Verified 01/10/23 11:04 pertussis vaccine,adsorbed Allergy Severe seizures Verified 01/10/23 11:04 [Pertussis Vaccine,Adsorbed] NSAIDS (Non-Steroidal Allergy Nausea Verified 01/10/23 11:04 Anti-Inflamma ciprofloxacin [From Cipro] AdvReac Intermediate Cramps Verified 01/10/23 11:04 oxycodone HCl * AdvReac Mild Nausea Verified 01/10/23 11:04 [From Percocet] diphtheria, pertussis, AdvReac Unknown Verified 01/10/23 11:04 tetanus vacc haloperidol [From Haldol] AdvReac Visual Verified 01/10/23 11:04 disturbance meperidine HCl * AdvReac Itching Verified 01/10/23 11:04 [From Demerol] - Social History Does the pt smoke?: No Smoking Status: Never smoker Does the pt drink ETOH?: No Does the pt have substance abuse?: No - Immunizations Immunizations are current?: Yes - POLST Patient has POLST: No PD ED PE NORMAL - Vitals Vital signs reviewed: Yes - General General: Alert and oriented X 3, Other (Appears uncomfortable laying in the position and retching) - Abdomen Abdomen: Normal bowel sounds, Soft, Non tender - Neuro Neuro: Alert and oriented X 3 Eye Opening: Spontaneous Motor: Obeys Commands Verbal: Oriented GCS Score: 15 Results - Vitals Vitals: Vital Signs - 24 hr 01/10/23 11:01 Temperature 36.6 C Heart Rate 59 L Respiratory 20 Rate Blood Pressure 140/88 H O2 Saturation 100 Oxygen O2 Source Room air - Labs Labs: Laboratory Tests 01/10/23 01/10/23 11:13 11:13 WBC 13.4 H RBC 3.78 L Hgb 11.5 L Hct 33.7 L MCV 89.2 MCH 30.4 MCHC 34.1 RDW 11.3 L Plt Count 304 MPV 10.6 Neut # (Auto) 11.3 H Lymph # (Auto) 1.3 L Carver # (Auto) 0.5 Eos # (Auto) 0.1 Baso # (Auto) 0.1 Absolute Nucleated RBC 0.00 Nucleated RBC % 0.0 Sodium 137 Potassium 3.7 Chloride 104 Carbon Dioxide 24 Anion Gap 9.0 BUN 9 Creatinine 0.8 Estimated GFR (MDRD) 80 L Glucose 142 H Calcium 9.9 Total Bilirubin 0.7 AST 17 ALT 12 Alkaline Phosphatase 43 Total Protein 7.3 Albumin 4.7 Globulin 2.6 Albumin/Globulin Ratio 1.8 Lipase 49 PD Medical Decision Making - ED course ED course: 37-year-old woman with an exacerbation of chronic intermittent vomiting and abdominal pain with negative work-ups in the past thought to be either celiac or cannabinoid hyperemesis. He was triggered by stress today. Has a benign exam and is nontender. CBC notable for stable normocytic anemia, and modest leukocytosis which is common during her exacerbations of abdominal pain and likely related to demargination. CMP unremarkable save mild hyperglycemia at 142, probably also a stress response. She was treated with divided doses of morphine, Reglan and Phenergan with improvement in her symptoms and requesting discharge. Departure - Departure Disposition: 01 Home, Self Care Clinical Impression: Dehydration, Intractable nausea and vomiting Condition: Stable Instructions: ED Nausea Vomiting Comments: Return if you worsen or fail to improve over the next day or so. Follow-up with your doctor, next available appointment. Forms: PCP List
[2023-01-10 11:19] LABS: BASOPHILS # (AUTO) 0.1 10^3/uL (0.0-0.1); BASOPHILS % (AUTO) 0.7 %; EOSINOPHILS # (AUTO) 0.1 10^3/uL (0.0-0.7); EOSINOPHILS % (AUTO) 0.7 %; HCT - HEMATOCRIT 33.7 % (37.0-47.0); HGB - HEMOGLOBIN 11.5 g/dL (12.0-16.0); LYMPHOCYTES # (AUTO) 1.3 10^3/uL (1.5-3.5); LYMPHOCYTES % (AUTO) 9.8 %; MEAN CORPUSCULAR HEMOGLOBIN 30.4 pg (27.0-31.0); MEAN CORPUSCULAR HGB CONC 34.1 g/dL (32.0-36.0); MEAN CORPUSCULAR VOLUME 89.2 fL (81.0-99.0); MEAN PLATELET VOLUME 10.6 fL (7.9-10.8); MONOCYTES # (AUTO) 0.5 10^3/uL (0.0-1.0); MONOCYTES % (AUTO) 3.7 %; NEUTROPHILS # (AUTO) 11.3 10^3/uL (1.5-6.6); NEUTROPHILS % (AUTO) 84.7 %; PLT - PLATELET COUNT 304 10^3/uL (130-450); RED BLOOD COUNT 3.78 10^6/uL (4.20-5.40); RED CELL DISTRIBUTION WIDTH 11.3 % (12.0-15.0); WHITE BLOOD COUNT 13.4 x10^3/uL (4.8-10.8)
[2023-01-10 11:33] LABS: ALBUMIN 4.7 g/dL (3.2-5.5); ALBUMIN/GLOBULIN RATIO 1.8 (1.0-2.2); BILIRUBIN,TOTAL 0.7 mg/dL (0.2-1.0); CALCIUM 9.9 mg/dL (8.5-10.3); CREATININE 0.8 mg/dL (0.6-1.3); POTASSIUM 3.7 mmol/L (3.5-4.5); TOTAL PROTEIN 7.3 g/dL (6.4-8.9)
[2023-01-10] MEDS ORDERED: METOCLOPRAMIDE 10 MG/2 ML VIAL IVP STA ×2 (12:49→13:29)
[2023-01-10 13:51] VITALS: BP 136/80; O2SAT 98
== END 2023-01-10 14:20 | disposition home or self-care (01) ==
LOC: EDUNIT# → ED 10:55
DX: E86.0 Dehydration (principal); R11.2 Nausea with vomiting, unspecified
CPT/HCPCS: 36415; 80053; 83690; 85025; 96361; 96374; 96375; 96376; 99283; 99284; J2765; J7040

== ENCOUNTER 2023-02-18 11:04 | Outpatient (CLI) | payer MEDICAID | END 2023-02-18 23:59 | disposition critical access hospital (66) | LOC: EMS 11:04 | DX: R11.2 Nausea with vomiting, unspecified (principal); R10.33 Periumbilical pain | CPT/HCPCS: A0425; A0429; A0999 ==

== ENCOUNTER 2023-02-18 11:43 | Emergency (ER) | payer MEDICAID ==
--- NOTE | 2023-02-18 11:53 | ED Physician Documentation ---
History of Present Illness - Stated complaint Stated Complaint: ABD PX - History obtained from History obtained from: Patient, EMS - Additonal information Additional information: 37-year-old woman with frequent bouts of abdominal pain nausea and vomiting, here about monthly. Could be cannabinoid hyperemesis versus cyclic vomiting. She developed her typical upper abdominal pain with vomiting this morning. Tried Zofran without relief. Nothing different about this episode compared to prior. Last visit was a little over a month ago. 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: Hysterectomy Cardiovascular: Other - Present Medications Home Medications: Ambulatory Orders Medication Instructions Recorded Confirmed Albuterol Sulfate [Proair 1 - 2 puffs IH Q6H PRN 05/26/22 01/10/23 Digihaler] Fluticasone/Salmeterol [Advair Hfa 2 puffs IH DAILY 05/26/22 01/10/23 230-21 Mcg Inhaler] Ondansetron Odt [Zofran Odt] 4 mg PO PRN PRN 09/05/22 01/10/23 Omeprazole Magnesium 20 mg PO DAILY 10/30/22 01/10/23 Promethazine [Phenergan] 25 mg PO Q6H PRN #10 tab 10/30/22 01/10/23 Promethazine [Phenergan] 25 mg PO Q6H PRN #10 tab 02/18/23 - Allergies Allergies/Adverse Reactions: Allergies Allergy/AdvReac Type Severity Reaction Status Date / Time amoxicillin [Amoxicillin] Allergy Severe throat Verified 02/18/23 11:52 swells Penicillins Allergy Severe Hives Verified 02/18/23 11:52 pertussis vaccine,adsorbed Allergy Severe seizures Verified 02/18/23 11:52 [Pertussis Vaccine,Adsorbed] NSAIDS (Non-Steroidal Allergy Nausea Verified 02/18/23 11:52 Anti-Inflamma ciprofloxacin [From Cipro] AdvReac Intermediate Cramps Verified 02/18/23 11:52 oxycodone HCl * AdvReac Mild Nausea Verified 02/18/23 11:52 [From Percocet] diphtheria, pertussis, AdvReac Unknown Verified 02/18/23 11:52 tetanus vacc haloperidol [From Haldol] AdvReac Visual Verified 02/18/23 11:52 disturbance meperidine HCl * AdvReac Itching Verified 02/18/23 11:52 [From Demerol] - Social History Does the pt smoke?: No Smoking Status: Never smoker Does the pt drink ETOH?: No Does the pt have substance abuse?: No - Immunizations Immunizations are current?: Yes - POLST Patient has POLST: No PD ED PE NORMAL - Vitals Vital signs reviewed: Yes - General General: Alert and oriented X 3, Other (Uncomfortable and retching) - Abdomen Abdomen: Soft, Non tender - Neuro Neuro: Alert and oriented X 3 Results - Vitals Vitals: Vital Signs - 24 hr 02/18/23 02/18/23 02/18/23 11:52 12:13 14:00 Temperature 36.2 C L Heart Rate 46 L 74 78 Respiratory 18 16 16 Rate Blood Pressure 145/67 H 139/71 H 124/83 H O2 Saturation 99 100 99 02/18/23 16:00 Temperature 36.5 C Heart Rate 72 Respiratory 16 Rate Blood Pressure 122/80 O2 Saturation 100 Oxygen O2 Source Room air - Labs Labs: Laboratory Tests 02/18/23 12:03 Sodium 138 Potassium 3.6 Chloride 105 Carbon Dioxide 24 Anion Gap 9.0 BUN 8 Creatinine 0.8 Estimated GFR (MDRD) 80 L Glucose 142 H Calcium 9.4 Magnesium 1.7 Total Bilirubin 0.6 AST 18 ALT 11 Alkaline Phosphatase 41 L Total Protein 7.0 Albumin 4.5 Globulin 2.5 Albumin/Globulin Ratio 1.8 PD Medical Decision Making - ED course ED course: 37-year-old woman with recurrent syndrome of vomiting and abdominal pain. Nontender. CMP done and unremarkable. On reevaluation at 12:40 PM she is feeling a lot better but still having some pain and nausea and requests more medication. She had already received small dose of IV morphine and Reglan. This was followed by another small dose of morphine and Phenergan. She did require a couple more repeat dosing of IV meds but subsequently felt b marlene and passed p.o. challenge. Departure - Departure Disposition: 01 Home, Self Care Clinical Impression: Cyclical vomiting syndrome Condition: Good Record reviewed to determine appropriate education?: Yes Instructions: ED Nausea Vomiting Prescriptions: Promethazine [Phenergan] 25 mg PO Q6H PRN #10 tab PRN Reason: Nausea / Vomiting Comments: Call your doctor to arrange a follow-up appointment, make the next available appointment. In the interim, return anytime if worse or if new symptoms develop. Forms: PCP List Discharge Date/Time: 02/18/23 16:48
[2023-02-18] MEDS: MORPHINE 2 MG/ML CARPUJECT IVP STA ×3 (12:06→15:57)
[2023-02-18] MEDS: SODIUM CHLORIDE 0.9% 1,000 ML IV STA (12:06)
[2023-02-18] MEDS: METOCLOPRAMIDE 10 MG/2 ML VIAL IVP STA ×2 (12:06→15:55)
[2023-02-18 12:21] LABS: ALBUMIN 4.5 g/dL (3.2-5.5); ALBUMIN/GLOBULIN RATIO 1.8 (1.0-2.2); BILIRUBIN,TOTAL 0.6 mg/dL (0.2-1.0); CALCIUM 9.4 mg/dL (8.5-10.3); CREATININE 0.8 mg/dL (0.6-1.3); MAGNESIUM 1.7 mg/dL (1.7-2.3); POTASSIUM 3.6 mmol/L (3.5-4.5)
[2023-02-18] MEDS: PROMETHAZINE INJ 25 MG in SODIUM CHLORIDE 0.9% 50 ML IV STA (12:56)
[2023-02-18] MEDS: HALOPERIDOL 5 MG/ML VIAL IVP STA (15:04)
[2023-02-18 16:44] VITALS: BP 122/80; O2SAT 100
== END 2023-02-18 16:48 | disposition home or self-care (01) ==
LOC: EDUNIT# → ED 11:43
DX: R11.15 Cyclical vomiting syndrome unrelated to migraine (principal)
CPT/HCPCS: 36415; 80053; 83735; 96365; 96375; 96376; 99283; 99285; J2765; J7040

== ENCOUNTER 2023-03-26 13:03 | Outpatient (CLI) | payer MEDICAID | END 2023-03-26 13:04 | disposition critical access hospital (66) | LOC: EMS 13:03 | DX: R11.2 Nausea with vomiting, unspecified (principal) | CPT/HCPCS: A0425; A0429; A0999 ==

== ENCOUNTER 2023-03-26 14:10 | Emergency (ER) | payer MEDICAID ==
--- NOTE | 2023-03-26 14:16 | ED Physician Documentation ---
PD HPI NVD - Stated complaint Stated Complaint: NV/FLU - History obtained from History obtained from: Patient - History of Present Illness Timing - onset: How many days ago (2) Timing - duration: Days (2) Timing - details: Abrupt onset, Still present Associated symptoms: Abdominal pain, Loss of appetite. No: Fever, Hematemesis, Near syncope / syncope Contributing factors: Sick contact (she states her 2 kids with 1 day of N/V/D and then pt sick a day or two latera. But has continued with symptoms. Has had similar in past, typically onset with some trigger like unusual foods, viral ill, URI, etc. Then will have intractable symptoms.). No: Bad food Improved by: No: Vomiting Worsened by: Eating Similar symptoms before: No diagnosis Review of Systems Constitutional: reports: Myalgias. denies: Fever, Chills Nose: denies: Rhinorrhea / runny nose, Congestion Throat: denies: Sore throat Respiratory: denies: Cough GI: reports: Abdominal Pain (intermittent cramping), Nausea, Vomiting, Diarrhea. denies: Abdominal Swelling, Constipation Musculoskeletal: denies: Extremity swelling Neurologic: reports: Generalized weakness. 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 HEENT: None Psych: Anxiety, Post traumatic stress disorder Musculoskeletal: Scoliosis, Other Derm: None - Past Surgical History Past Surgical History: Yes Ortho: Shoulder arthroplasty /CHOCOLATE FINISHER: Hysterectomy Cardiovascular: Other - Present Medications Home Medications: Ambulatory Orders Medication Instructions Recorded Confirmed Albuterol Sulfate [Proair 1 - 2 puffs IH Q6H PRN 05/26/22 03/26/23 Digihaler] Fluticasone/Salmeterol [Advair Hfa 2 puffs IH DAILY 05/26/22 03/26/23 230-21 Mcg Inhaler] Ondansetron Odt [Zofran Odt] 4 mg PO PRN PRN 09/05/22 03/26/23 Omeprazole Magnesium 20 mg PO DAILY 10/30/22 03/26/23 Ondansetron Odt [Zofran] 4 mg TL Q6H PRN #20 tablet 03/26/23 Prochlorperazine Supp [Compazine 25 mg NE Q8H PRN #10 supp 03/26/23 Supp] Prochlorperazine [Compazine] 5 mg PO Q6H PRN #20 tablet 03/26/23 - Allergies Allergies/Adverse Reactions: Allergies Allergy/AdvReac Type Severity Reaction Status Date / Time amoxicillin [Amoxicillin] Allergy Severe throat Verified 03/26/23 14:17 swells Penicillins Allergy Severe Hives Verified 03/26/23 14:17 pertussis vaccine,adsorbed Allergy Severe seizures Verified 03/26/23 14:17 [Pertussis Vaccine,Adsorbed] NSAIDS (Non-Steroidal Allergy Nausea Verified 03/26/23 14:17 Anti-Inflamma ciprofloxacin [From Cipro] AdvReac Intermediate Cramps Verified 03/26/23 14:17 oxycodone HCl * AdvReac Mild Nausea Verified 03/26/23 14:17 [From Percocet] diphtheria, pertussis, AdvReac Unknown Verified 03/26/23 14:17 tetanus vacc haloperidol [From Haldol] AdvReac Visual Verified 03/26/23 14:17 disturbance meperidine HCl * AdvReac Itching Verified 03/26/23 14:17 [From Demerol] - Social History Does the pt smoke?: No Smoking Status: Never smoker Does the pt drink ETOH?: No Does the pt have substance abuse?: No - Immunizations Immunizations are current?: Yes - POLST Patient has POLST: No PD ED PE NORMAL - Vitals Vital signs reviewed: Yes - General General: Alert and oriented X 3, Well developed/nourished, Other (appears in discomforot, holding emesis bag with wretching vomit motions. Nonproductive of emesis at this time. ) - HEENT HEENT: Pharynx benign - Neck Neck: Supple, no meningeal sign, No adenopathy - Cardiac Cardiac: RRR, No murmur - Respiratory Respiratory: No respiratory distress, Clear bilaterally - Abdomen Abdomen: Normal bowel sounds, Soft, Non distended, Other (tender epigastric with some local guarding but no other peritoneal findings. ) Results - Vitals Vitals: Vital Signs - 24 hr 03/26/23 03/26/23 14:18 16:21 Temperature 37.1 C Heart Rate 71 Respiratory 18 13 Rate Blood Pressure 115/85 H 110/64 O2 Saturation 99 97 Oxygen O2 Source Room air - Labs Labs: Laboratory Tests 03/26/23 03/26/23 14:34 14:34 WBC 8.5 RBC 4.22 Hgb 12.9 Hct 37.0 MCV 87.7 MCH 30.6 MCHC 34.9 RDW 11.1 L Plt Count 294 MPV 10.8 Neut # (Auto) 7.3 H Lymph # (Auto) 0.9 L Donley # (Auto) 0.3 Eos # (Auto) 0.0 Baso # (Auto) 0.0 Absolute Nucleated RBC 0.00 Nucleated RBC % 0.0 Sodium 135 Potassium 3.1 L Chloride 92 L Carbon Dioxide 33 H Anion Gap 10.0 BUN 16 Creatinine 0.8 Estimated GFR (MDRD) 80 L Glucose 102 Calcium 10.6 H Magnesium 1.4 L Total Bilirubin 0.7 AST 24 ALT 14 Alkaline Phosphatase 40 L Total Protein 7.5 Albumin 4.8 Globulin 2.7 Albumin/Globulin Ratio 1.8 Lipase 178 H PD Medical Decision Making - ED course Complexity details: reviewed old records (prior similar ED visits about every 2 months or so. Most commonly treated and dischared without repeated imaging in recent past visits. Has done okay with that. ), reviewed results (low potassium and Mag. Otherwise not notable abnormalities on CBC and chemistry reviewed by me. ), re-evaluated patient (she is feeling improved with few doses of antiemetics and IV fluids. Initially Zofran then Compazine with improvement. Had some return of nausea and repeat Zofran given, with enough improvement. Pt states she feels improved enough for discharge. Does not have Rx at home currently.), considered differential (has had this episodically every couple of months or so to this degree, with minor epiosdes often at home, Rx with Zofran or other antiemetics. Has seen GI in past and has another referral coming up in April. Has seen Rheum in the past. No definite Dx. She states gluten intolerance. ), d/w patient Departure - Departure Disposition: 01 Home, Self Care Clinical Impression: Intractable nausea and vomiting, Hypokalemia, Volume depletion Condition: Stable Record reviewed to determine appropriate education?: Yes Instructions: ED Nausea Vomiting Prescriptions: Prochlorperazine [Compazine] 5 mg PO Q6H PRN #20 tablet PRN Reason: Nausea / Vomiting Prochlorperazine Supp [Compazine Supp] 25 mg NE Q8H PRN #10 supp PRN Reason: Nausea / Vomiting Ondansetron Odt [Zofran] 4 mg TL Q6H PRN #20 tablet PRN Reason: Nausea / Vomiting Comments: Small frequent fluids today. Start with bland food and simple starches/carbohydrates initially (if tolerated dietarily as you said you do have some gluten intolerance), otherwise what ever simple foods fit your diet best. Avoid bulky and spicy foods initially. Continue with usual medications. For persistent or recurrent nausea, I wrote prescriptions for ondansetron/Zofran. Alternatively you can take prochlorperazine either tablet or suppositories every 6-8 hours if needed. I sent your prescriptions to your preferred pharmacy. Return as needed. Forms: PCP List Discharge Date/Time: 03/26/23 16:54
[2023-03-26 14:42] LABS: BASOPHILS % (AUTO) 0.2 %; HGB - HEMOGLOBIN 12.9 g/dL (12.0-16.0); LYMPHOCYTES # (AUTO) 0.9 10^3/uL (1.5-3.5); LYMPHOCYTES % (AUTO) 10.4 %; MEAN CORPUSCULAR HEMOGLOBIN 30.6 pg (27.0-31.0); MEAN CORPUSCULAR HGB CONC 34.9 g/dL (32.0-36.0); MEAN CORPUSCULAR VOLUME 87.7 fL (81.0-99.0); MEAN PLATELET VOLUME 10.8 fL (7.9-10.8); MONOCYTES # (AUTO) 0.3 10^3/uL (0.0-1.0); MONOCYTES % (AUTO) 3.3 %; NEUTROPHILS # (AUTO) 7.3 10^3/uL (1.5-6.6); NEUTROPHILS % (AUTO) 85.9 %; PLT - PLATELET COUNT 294 10^3/uL (130-450); RED BLOOD COUNT 4.22 10^6/uL (4.20-5.40); RED CELL DISTRIBUTION WIDTH 11.1 % (12.0-15.0); WHITE BLOOD COUNT 8.5 x10^3/uL (4.8-10.8)
[2023-03-26] MEDS: SODIUM CHLORIDE 0.9% 1,000 ML IV STA ×2 (14:42)
[2023-03-26] MEDS: ONDANSETRON 4 MG/2 ML VIAL IVP STA ×2 (14:42→16:10)
[2023-03-26] MEDS: METOCLOPRAMIDE 10 MG/2 ML VIAL IVP STA (14:42)
[2023-03-26 15:00] LABS: ALBUMIN 4.8 g/dL (3.2-5.5); ALBUMIN/GLOBULIN RATIO 1.8 (1.0-2.2); BILIRUBIN,TOTAL 0.7 mg/dL (0.2-1.0); CALCIUM 10.6 mg/dL (8.5-10.3); CREATININE 0.8 mg/dL (0.6-1.3); MAGNESIUM 1.4 mg/dL (1.7-2.3); POTASSIUM 3.1 mmol/L (3.5-4.5); TOTAL PROTEIN 7.5 g/dL (6.4-8.9)
[2023-03-26 16:30] VITALS: BP 110/64; O2SAT 97
== END 2023-03-26 16:54 | disposition home or self-care (01) ==
LOC: EDUNIT# → ED 14:10
DX: R11.2 Nausea with vomiting, unspecified (principal); E87.6 Hypokalemia; E86.9 Volume depletion, unspecified
CPT/HCPCS: 36415; 80053; 83690; 83735; 85025; 96361; 96374; 96375; 99284; J2765